=== PATIENT | female | born 1950 | race Caucasian/White ===

== ENCOUNTER 2022-10-29 13:18 | Outpatient (RCR) | payer MEDICARE, SELFPAY ==
[2022-10-29 12:33] LABS: Calcium 8.7 mg/dL (8.5-10.1); Estimated GFR (African America >60 (>=60); Estimated GFR (Non-African Ame 53 (>=60)
[2022-11-05 10:00] VITALS: BP 157/79; PULSE 77; RESP 18; TEMP 36.8; O2SAT 96
[2022-11-05] MEDS: DENOSUMAB 60 MG/ML SYRINGE SQ (10:09)
--- NOTE | 2022-11-05 10:17 | PC.NURSE ---
1000: Pt. to [facility] amb for schedued injection. Seated in recliner. VSS. Denies allergies. Medicated with Prolia 60mg SQ to right arm. No bleeding to site. Pt. tolerated with no c/o. Remains in recliner for brief observation. Pt. denies needs. 1020: Pt without s&s of adverse reaction. D/c'd amb to home.
== END 2022-11-10 16:01 | disposition home or self-care (01) ==
LOC: LAB 13:18
PROVIDERS: PCP Family Medicine; Visit Provider Family Medicine
DX: M81.0 Age-related osteoporosis without current pathological fracture (principal)
CPT/HCPCS: 36415; 82310; 82565; 96372; J0897

== ENCOUNTER 2023-01-28 10:40 | Outpatient (OUT) | payer MEDICARE, SELFPAY ==
[2023-01-28 11:27] LABS: Creatinine Urine Random 84.98 mg/dL (20.00-300.00); Protein Creatinine Ratio Urine 0.19; Total Protein Urine Random 16.4 mg/dL (<=11.9)
[2023-01-28 11:44] LABS: Hematocrit 39.7 % (36.0-48.0); Hemoglobin 12.9 g/dL (12.0-16.0); Mean Corpuscular HGB Conc 32.5 g/dL (29.9-35.2); Mean Corpuscular Hemoglobin 30.6 pg (26.7-34.0); Mean Corpuscular Volume 94.1 fL (81.0-99.0); Mean Platelet Volume 10.6 fL (9.5-13.5); Platelet Count 255 10^3/uL (150-450); Red Blood Count 4.22 10^6/uL (4.20-5.40); Red Cell Distribution Width 12.9 % (11.0-15.0); White Blood Count 6.8 10^3/uL (4.0-11.0)
[2023-01-28 12:09] LABS: Bilirubin Urine NEGATIVE (NEGATIVE); Blood Urine NEGATIVE (NEGATIVE); Clarity Urine CLEAR (CLEAR); Color Urine LT. YELLOW (YELLOW); Glucose Urine UA NEGATIVE (NEGATIVE); Ketones Urine NEGATIVE (NEGATIVE); Leukocyte Esterase Urine NEGATIVE (NEGATIVE); Nitrite Urine NEGATIVE (NEGATIVE); Protein Urine NEGATIVE (NEG/TRACE); Specific Gravity Urine 1.015 (1.005-1.025); Urobilinogen Urine 0.2 EU/dL (0.2-1.0); pH Urine 6.5 (5.0-9.0)
[2023-01-28 12:15] LABS: Bacteria Urine NONE SEEN #/HPF (NONE SEEN); Mucus Urine SMALL (NONE SEEN); RBC Urine NONE SEEN #/HPF (0-2); Squamous Epithelial Cell Urine FEW #/LPF (NONE/RARE); WBC Urine 0-2 #/HPF (NONE SEEN)
[2023-01-28 12:34] LABS: Percent Iron Saturation 27.9 %
[2023-01-28 12:57] LABS: Albumin Level 3.8 g/dL (3.4-5.0); Anion Gap 11.3; BUN Creatinine Ratio 19.5; Calcium 9.2 mg/dL (8.5-10.1); Carbon Dioxide 31.7 mmol/L (21.0-32.0); Chloride 99 mmol/L (98-107); Estimated GFR (African America >60 (>=60); Estimated GFR (Non-African Ame >60 (>=60); Glucose 88 mg/dL (74-106); Magnesium 1.8 mg/dL (1.8-2.4); Phosphorus 3.1 mg/dL (2.6-4.7); Sodium 138 mmol/L (136-145); Uric Acid 3.1 mg/dL (2.6-6.0)
[2023-01-29 17:09] LABS: PTH, Intact 45 pg/mL (15-65)
== END 2023-01-28 10:41 | disposition home or self-care (01) ==
LOC: LAB 10:40
PROVIDERS: PCP Family Medicine; Visit Provider Internal Medicine
DX: I12.9 Hypertensive chronic kidney disease with stage 1 through stage 4 chronic kidney disease, or unspecified chronic kidney disease (principal); N18.30 Chronic kidney disease, stage 3 unspecified; E87.1 Hypo-osmolality and hyponatremia; E55.9 Vitamin D deficiency, unspecified; I72.2 Aneurysm of renal artery; E87.6 Hypokalemia; E63.1 Imbalance of constituents of food intake; M81.0 Age-related osteoporosis without current pathological fracture
CPT/HCPCS: 36415; 80069; 81001; 82306; 82570; 82728; 83540; 83550; 83735; 83970; 84156; 84550; 85027

== ENCOUNTER 2023-06-06 10:25 | Outpatient (OUT) | payer MEDICARE, SELFPAY ==
[2023-06-06 10:57] LABS: Basophils Absolute Auto 0.1 10^3/uL (0.0-0.1); Basophils Percent Auto 1.3 % (0.2-2.0); Eosinophils Absolute Auto 0.3 10^3/uL (0.0-0.7); Hematocrit 38.1 % (36.0-48.0); Hemoglobin 12.1 g/dL (12.0-16.0); Immature Granulocytes Abs Auto 0.02 10^3/uL (0.00-0.03); Immature Granulocytes Pct Auto 0.3 % (0.0-0.5); Lymphocytes Absolute Auto 1.4 10^3/uL (1.2-3.8); Lymphocytes Percent Auto 20.8 % (20.5-60.0); Mean Corpuscular HGB Conc 31.8 g/dL (29.9-35.2); Mean Corpuscular Volume 94.3 fL (81.0-99.0); Mean Platelet Volume 9.1 fL (9.5-13.5); Monocytes Absolute Auto 0.6 10^3/uL (0.3-0.8); Monocytes Percent Auto 8.5 % (1.7-12.0); Neutrophils Absolute Auto 4.4 10^3/uL (1.4-6.5); Neutrophils Percent Auto 65.1 % (43.0-75.0); Platelet Count 332 10^3/uL (150-450); Red Blood Count 4.04 10^6/uL (4.20-5.40); Red Cell Distribution Width 12.8 % (11.0-15.0); White Blood Count 6.7 10^3/uL (4.0-11.0)
[2023-06-06 11:50] LABS: Estimated Average Glucose 120 mg/dL; Glycohemoglobin A1C 5.8 % (4.5-6.2)
[2023-06-06 12:23] LABS: Alanine Aminotransferase 20 U/L (14-59); Albumin Level 3.4 g/dL (3.4-5.0); Alkaline Phosphatase 61 U/L (46-116); Anion Gap 9.7; Aspartate Amino Transferase 13 U/L (15-37); BUN Creatinine Ratio 18.9; Bilirubin Total 0.6 mg/dL (0.2-1.0); Calcium 8.9 mg/dL (8.5-10.1); Carbon Dioxide 29.2 mmol/L (21.0-32.0); Chloride 103 mmol/L (98-107); Chol HDL Ratio 2.6; Cholesterol 245 mg/dL (<=200); Estimated GFR (African America >60 (>=60); Estimated GFR (Non-African Ame 58 (>=60); Free T3 2.65 pg/mL (2.18-3.98); Globulin 3.5 g/dL; Glucose 108 mg/dL (74-106); HDL Cholesterol 93 mg/dL (40-60); Potassium 3.9 mmol/L (3.5-5.1); Sodium 138 mmol/L (136-145); Thyroid Stimulating Hormone 0.769 uIU/mL (0.358-3.740); Total Protein 6.9 g/dL (6.4-8.2); Triglycerides 62 mg/dL (<=150); VLDL CHOLESTEROL 12.4 mg/dL
== END 2023-06-06 10:26 | disposition home or self-care (01) ==
LOC: LAB 10:27
PROVIDERS: PCP Family Medicine; Visit Provider Family Medicine
DX: E78.00 Pure hypercholesterolemia, unspecified (principal); I10 Essential (primary) hypertension; M54.12 Radiculopathy, cervical region; E78.5 Hyperlipidemia, unspecified; R73.09 Other abnormal glucose; D64.9 Anemia, unspecified; E55.9 Vitamin D deficiency, unspecified
CPT/HCPCS: 36415; 80053; 80061; 82306; 83036; 83540; 84436; 84443; 84481; 85025

== ENCOUNTER 2023-06-28 09:53 | Outpatient (RCR) | payer MEDICARE, SELFPAY | END 2023-08-03 12:52 | disposition home or self-care (01) | LOC: PT 09:53 | PROVIDERS: PCP Family Medicine | DX: M48.02 Spinal stenosis, cervical region (principal); G99.2 Myelopathy in diseases classified elsewhere; Z98.1 Arthrodesis status; R29.3 Abnormal posture | CPT/HCPCS: 97110; 97161 ==

== ENCOUNTER 2023-07-04 09:57 | Outpatient (OUT) | payer MEDICARE, SELFPAY ==
[2023-07-04 10:21] LABS: Bilirubin Urine NEGATIVE (NEGATIVE); Blood Urine NEGATIVE (NEGATIVE); Clarity Urine CLEAR (CLEAR); Color Urine YELLOW (YELLOW); Glucose Urine UA NEGATIVE (NEGATIVE); Ketones Urine NEGATIVE (NEGATIVE); Leukocyte Esterase Urine NEGATIVE (NEGATIVE); Nitrite Urine NEGATIVE (NEGATIVE); Protein Urine NEGATIVE (NEG/TRACE); Urobilinogen Urine 0.2 EU/dL (0.2-1.0); pH Urine 7.5 (5.0-9.0)
[2023-07-04 10:41] LABS: Hematocrit 37.2 % (36.0-48.0); Hemoglobin 11.8 g/dL (12.0-16.0); Mean Corpuscular HGB Conc 31.7 g/dL (29.9-35.2); Mean Corpuscular Hemoglobin 29.9 pg (26.7-34.0); Mean Corpuscular Volume 94.2 fL (81.0-99.0); Mean Platelet Volume 9.4 fL (9.5-13.5); Platelet Count 353 10^3/uL (150-450); Red Blood Count 3.95 10^6/uL (4.20-5.40); Red Cell Distribution Width 12.7 % (11.0-15.0); White Blood Count 6.8 10^3/uL (4.0-11.0)
[2023-07-04 10:54] LABS: Creatinine Urine Random 104.21 mg/dL (20.00-300.00); Protein Creatinine Ratio Urine 0.19; Total Protein Urine Random 19.4 mg/dL (<=11.9)
[2023-07-04 11:19] LABS: Bacteria Urine TRACE #/HPF (NONE SEEN); Crystals Seen? Seen #/HPF (None Seen); Mucus Urine NONE SEEN (NONE SEEN); RBC Urine 0-2 #/HPF (0-2); Squamous Epithelial Cell Urine FEW #/LPF (NONE/RARE)
[2023-07-04 11:20] LABS: Amorphous Sediment Urine FEW; Cast Seen? NONE SEEN #/LPF (NONE SEEN)
[2023-07-04 11:33] LABS: Albumin Level 3.5 g/dL (3.4-5.0); Anion Gap 11.6; BUN Creatinine Ratio 23.4; Calcium 9.4 mg/dL (8.5-10.1); Carbon Dioxide 31.3 mmol/L (21.0-32.0); Chloride 101 mmol/L (98-107); Estimated GFR (African America >60 (>=60); Estimated GFR (Non-African Ame 59 (>=60); Glucose 95 mg/dL (74-106); Phosphorus 3.7 mg/dL (2.6-4.7); Potassium 3.9 mmol/L (3.5-5.1); Sodium 140 mmol/L (136-145); Uric Acid 3.4 mg/dL (2.6-6.0)
[2023-07-05 11:09] LABS: PTH, Intact 25 pg/mL (15-65)
== END 2023-07-04 09:58 | disposition home or self-care (01) ==
LOC: LAB 09:57
PROVIDERS: PCP Family Medicine; Visit Provider Internal Medicine
DX: I12.9 Hypertensive chronic kidney disease with stage 1 through stage 4 chronic kidney disease, or unspecified chronic kidney disease (principal); N18.2 Chronic kidney disease, stage 2 (mild); E87.1 Hypo-osmolality and hyponatremia; E55.9 Vitamin D deficiency, unspecified; I72.2 Aneurysm of renal artery; E87.6 Hypokalemia; M81.0 Age-related osteoporosis without current pathological fracture
CPT/HCPCS: 36415; 80069; 81001; 82306; 82570; 83735; 83970; 84156; 84550; 85027

== ENCOUNTER 2023-08-03 10:44 | Outpatient (OUT) | payer MEDICARE, SELFPAY | END 2023-08-03 10:45 | disposition home or self-care (01) | LOC: PST 10:44 | PROVIDERS: PCP Family Medicine; Visit Provider Ophthalmology | DX: Z01.818 Encounter for other preprocedural examination (principal); H25.11 Age-related nuclear cataract, right eye ==

== ENCOUNTER 2023-08-11 06:22 | Day surgery (SDC) | payer MEDICARE, SELFPAY ==
--- NOTE | 2023-08-11 | OP_ITS ---
OPERATION DATE: 08/11/2023 SURGEON: Aries Zuleta M.D. PREOPERATIVE DIAGNOSIS: Nuclear sclerotic cataract right eye. POSTOPERATIVE DIAGNOSIS: Nuclear sclerotic cataract right eye. PROCEDURE NAME: Cataract extraction with intraocular lens placement for the right eye. ANESTHESIA: Topical. ESTIMATED BLOOD LOSS: Zero. COMPLICATIONS: None. PROCEDURE: In the preoperative holding area, topical proparacaine was placed on the surface of the right eye and the patient was sat up in an upright position. In this position, the 6 o?clock limbus was marked with a marking pen, so as to reference for future site of a Toric intraocular lens. The patient was then brought to the Operating Room in supine position. After proper identification, the right eye was prepped and draped in a sterile ophthalmic fashion. A paracentesis created at the 11 o'clock position. Approximately 1 cc of unpreserved Xylocaine was injected into the anterior chamber followed by Amvisc Plus. Using a 2.6 mm Keratome blade, a clear corneal incision was created at the 9 o'clock limbus. A cystotome was then used to begin a curvilinear capsulorrhexis that was continued for 360 degrees with the Utrata forceps. BSS on a 26 gauge cannula was injected beneath the anterior capsule to hydrodissect as well as hydrodelineate the lens. After ensuring mobility, phacoemulsification was performed in a [id number]-type fashion. After all nuclear material had been removed from the eye, IA was introduced and all residual cortical material was cleaned up. Additional Amvisc Plus was injected into the posterior bag to further inflate and pressurize the anterior chamber. Using a Wiley Toric Marking System, the 179 degree axis was identified and marked. A lens model [id number], 20.5 diopters was then injected and dialed approximately 10 degrees shy of the 179 degree philippe on the anterior surface of the cornea. IA was reintroduced into the anterior chamber and all residual Amvisc Plus was removed from the eye. Utilizing the tip of the IA, the lens was rotated the final 10 degrees to the 179 degree axis. BSS on a 30 gauge cannula was injected into the stroma of both the clear corneal incision as well as the paracentesis to hydrate the wounds. Additional BSS was injected into the anterior chamber to pressurize the eye at approximately 20 to 22 mmHg by finger tension. 0.1 cc of antibiotic was injected into the anterior chamber. Weck-Dayanna sponges were used to check the wounds to be watertight. One drop of apraclonidine and one drop of prednisolone acetate were placed into the eye and a shield was placed over top. The patient was sent to the postoperative area in satisfactory condition to follow up the following day for postoperative care. PAMELA
--- NOTE | 2023-08-11 06:22 | HP_ITS ---
PREOPERATIVE HISTORY AND PHYSICAL ? Date:? 08/10/2023 ? HISTORY:? The patient is a 72-year-old white female with complaints of declining vision out of her right eye.? She states the onset of this has been noted back approximately two years ago and gradually worsening over that time frame.? It has been constant in nature, effecting both distance, mid range and near vision.? ?Night driving has become more troublesome because of headlights creating glare and halos.? She states having difficulty seeing road signs at a distance as well. ? PAST OCULAR HISTORY:? Denies. ? PAST MEDICAL HISTORY:? Of dementia, hydrocephalus, hypercholesterolemia, hypertension and spinal meningitis in 1956, neck surgery and a WET PROCESS MILLER HEAD shunt in 2008. ? SOCIAL HISTORY:? Denies tobacco or recreational drug abuse.? Denies alcohol. ? SYSTEMIC MEDICATIONS:? Currently taking outpatient meds of hydrochlorothiazide, lansoprazole, donepezil, amlodipine, cyclobenzaprine, gabapentin, atorvastatin, labetalol and losartan. ? ALLERGIES TO MEDICATIONS:? Denies. ? REVIEW OF SYSTEMS:? No pertinent positives. ? PHYSICAL EXAM: ? GENERAL:? She is awake, alert and oriented x3, well developed, well nourished, in no acute distress.? ? HEART:? Regular rate and rhythm. ? LUNGS:? Clear bilaterally. ? ABDOMEN:? Soft, non-tender, non-distended. ? EXTREMITIES:? No pitting edema. ? OPHTHALMIC EXAM:? Reveals a visual acuity of 20/50 +2 in the right and 20/50 in the left with glare to 20/400 bilaterally.? Pupils motility, muscle balance and confrontational visual myrick within normal limits bilaterally.? Pressures are measured at 21 in the right and 20 in the left.? Slit lamp exam revealed blepharitis with a severe decrease in tear film bilaterally.? Conjunctiva, cornea, anterior chamber and iris were within normal limits bilaterally.? Lens status demonstrated 3+ nuclear sclerosis with vacuoles bilaterally. ? FUNDUS EXAM:? Optic discs, macula, vessels, periphery and vitreous were within normal limits bilaterally.? ? ASSESSMENT AND PLAN:? Visually significant cataract, right eye.? After the risks, benefits, and alternatives as well as expectations were delivered to the patient, she elected to go forward with cataract removal.? She understands those risks to include but not limited to infection, bleeding, loss of vision or loss of the eye itself.? Secondly, she understands that postoperatively she is likely to require spectacle correction for her best visual acuity.? Finally, a complete ophthalmic exam was performed and there was not determined to be any other source of vision decline other than that of cataract.? After understanding all risks as well as expectations, she elected to go forward with the procedure as listed above and will be doing so in the near future. PAMELA
--- OUTSIDE RECORDS SUMMARY | 2023-08-11 06:25 | XMS_ITS | CCD ---
Author Organization [facility] Care Team Providers Care School Principal Name Role Phone PHYSICIAN, DEFAULT Unavailable Unavailable PHYSICIAN, DEFAULT Unavailable Unavailable YODERCONNER HERNANDEZEB A Unavailable Unavailable CATY YODER A Unavailable Unavailable SAMUEL SANCHEZ Unavailable Unavailable IMER PURCELL Unavailable Unavailable Monika Guerrero Primary Care Provider Darlene Barbosaul Unavailable Jorge Ramirez Unavailable Imer Purcell MD Primary Care Provider [phone] Keagan Chadwick Unavailable MD Imer Purcell Primary Care Provider [phone] MD Imer Purcell Attending Provider [phone] Ziyad Ngo Unavailable MD Imer Purcell Primary Care Provider [phone] MD Imer Purcell Attending Provider Adan Gonzalez Attending Provider [phone] MD Jorge Ramirez Attending Provider Imer Purcell MD Primary Care Provider [phone] MONIKA GUERRERO Primary Care Unavaila ble MENDEZ, TOMS Referring Unavailable MONIKA GUERRERO Primary Care Unavaila ble MENDEZ, TOMS Referring Unavailable MONIKA GUERRERO Primary Care Unavaila ble MENDEZ, TOMS Attending Unavailable MENDEZ, TOMS Referring Unavailable FREDA POP Attending Unavailable DEBRA, TOMS Referring Unavailable IMER PURCELL Primary Care Unavailable FREDA POP Attending Unavailable MENDEZ, TOMS Referring Unavailable HOY, IMER M Primary Care Unavailable MENDEZ, TOMS Referring Unavailable HOY, IMER M Primary Care Unavailable FREDA POP Attending Unavailable MENDEZ, TOMS Referring Unavailable HOY, IMER M Primary Care Unavailable MENDEZ, TOMS Attending Unavailable DOROTHY SPARROW Referring Unavailable HOY, IMER M Primary Care Unavailable HOY, IMER M Primary Care Unavailable FREDA POP Referring Unavailable MD Imer Purcell Primary Care Provider [phone] ARI Pop Attending Provider MD Imer Purecll Primary Care Provider [phone] ARI Pop Attending Provider ANTHONY Friedman Attending Provider [phone] MD Imer Purcell Attending Provider HOY ., DR WILLAMS Consulting Unavailable HOY ., DR WILLAMS Primary Care Unavailable HOY ., DR WILLAMS Attending Unavailable HOY ., DR WILLAMS Admitting Unavailable HOY ., DR WILLAMS Consulting Unavailable HOY ., DR WILLAMS Primary Care Unavailable HOY ., DR WILLAMS Attending Unavailable HOY ., DR WILLAMS Admitting Unavailable ZIEBER, DR ANA ROSA Hdz Consulting Unavailable PACO, GINO Consulting Unavailable HOY ., DR WILLAMS Primary Care Unavailable PACO, GINO Attending Unavailable PACO, GINO Admitting Unavailable HOY ., DR WILLAMS Consulting Unavailable HOY ., DR WILLAMS Primary Care Unavailable HOY ., DR WILLAMS Attending Unavailable HOY ., DR WILLAMS Admitting Unavailable HOY ., DR WILLAMS Consulting Unavailable HOY ., DR WILLAMS Primary Care Unavailable HOY ., DR WILLAMS Attending Unavailable HOY ., DR WILLAMS Admitting Unavailable HOY ., DR WILLAMS Consulting Unavailable HOY ., DR WILLAMS Primary Care Unavailable HOY ., DR WILLAMS Attending Unavailable HOY ., DR WILLAMS Admitting Unavailable ZIEBER, DR ANA ROSA Hdz Consulting Unavailable HOY ., DR WILLAMS Consulting Unavailable HOY ., DR WILLAMS Primary Care Unavailable HOY ., DR WILLAMS Attending Unavailable HOY ., DR WILLAMS Admitting Unavailable PACO, GINO Consulting Unavailable HOY ., DR WILLAMS Primary Care Unavailable PACO, GINO Attending Unavailable PACO, GINO Admitting Unavailable TAJY ., DR WILLAMS Consulting Unavailable HOY ., DR WILLAMS Primary Care Unavailable HOY ., DR WILLAMS Attending Unavailable HOY ., DR WILLAMS Admitting Unavailable ALBERTINA, MARIKA Consulting Unavailable HOY ., DR WILLAMS Primary Care Unavailable ALBERTINA, MARIKA Attending Unavailable ALBERTINA, MARIKA Admitting Unavailable HOY ., DR WILLAMS Primary Care Unavailable HOY ., DR WILLAMS Attending Unavailable HOY ., DR WILLAMS Admitting Unavailable HOY ., DR WILLAMS Primary Care Unavailable HOY ., DR WILLAMS Attending Unavailable HOY ., DR WILLAMS Admitting Unavailable Hoy, Imer M Unavailable Unavailable Unavailable Hoy, Imer M Primary Care Unavailable Albertina, Marika Admitting Unavailable Albertina, Marika Attending Unavailable Hoy, Imer M Attending Unavailable Hoy, Imer M Admitting Unavailable Hoy, Imer M Primary Care Unavailable HoyDavidImer M Attending Unavailable Hoy, Imer M Admitting Unavailable Hoy, Imer M Primary Care Unavailable Jorge Ramirez Admitting Unavailable Jorge Ramirez Attending Unavailable Hoy, Imer M Primary Care Unavailable Mireille Zurita Attending Unavailable Hoy, Imer M Primary Care Unavailable Mireille Zurita Admitting Unavailable Hoy, Imer M Primary Care Unavailable Hoy, Imer M Attending Unavailable Hoy, Imer M Admitting Unavailable Adan Gonzalez Admitting Unavailable Adan Gonzalez Attending Unavailable Hoy, Imer M Primary Care Unavailable Freda Pop Admitting Unavailable Freda Pop Attending Unavailable Hoy, Imer M Primary Care Unavailable Imer Purcell MD Primary Care Provider MIREILLE ZURITA Attending Unavailable Adan Gonzalez Referring Unavailable Dr. Imer Purcell Primary Care Unavail able Dr. Imer Purcell Primary Care Unavail able MIREILLE ZURITA Referring Unavailable MIREILLE ZURITA Attending Unavailable CECELIA HARKINS Attending Unavailable LONA PANDA Referring Unavailable MIREILLE ZURITA Referring Unavailable IMER PURCELL Primary Care Unavailable ARASELI FAUSTIN Referring Unavailable IMER PURCELL Primary Care Unavailable ARASELI FAUSTIN Attending Unavailable IMER PURCELL DON Primary Care Unavailable MIREILLE ZURITA Attending Unavailable IMER PURCELL DON Primary Care Unavailable MIREILLE ZURITA Attending Unavailable IMER PURCELL Primary Care Unavailable IMER PURCELL Primary Care Unavailable MIREILLE ZURITA Admitting Unavailable MIREILLE ZURITA Attending Unavailable IMER Velásquez Primary Care Unavailable FERNANDO FRAZIER Consulting Unavaila COLLIN Neil Consulting Unavailable ROBERT MACK Unavailable MIREILLE ZURITA Referring Unavailable IMER PURCELL Primary Care Unavailable MIREILLE ZURITA Referring Unavailable Dora IMER OCHOA Primary Care Unavailable Allergies Allergy Classification Reported Allergen(s) Allergy Type Date of Onset Reaction(s) Facility (2 sources) No Known Allergies; Translations: [No Known Allergies] Propensity to adverse reactions (disorder) 7 [facility] Medications Current Medications Medication Drug Class(es) Dates Sig (Normalized) Sig (Original) acetaminophen 325 mg oral tablet (7 sources) Start: 03-23-2023 End: 06-16-2023 take 3 tablets by mouth every eight hours for pain acetaminophen (Tylenol) 325 mg tablet Indications: Acute post-operative pain , S/P cervical spinal fusion Take 3 tablets (975 mg) by mouth every 8 hours if needed for mild pain (1 - 3). 0 03/23/2023 06/16/2023 Discontinued (Med List Cleanup) Start: 03-21-2023 take 1 tablet by meghana th every eight hours 975 mg, oral, Every 8 hours, First dose on Tue03/21/23 at 1630, Phase II/On Unit If ordered PRN for pain, nurse is permitted to administer this medication for higher pain scores based on patient preference? Yes amLODIPine 10 mg oral tablet (20 sources) Dihydropyridine Calcium Channel Sonia Start: 08-05-2021 take 10 mg by mouth once daily 10 mg, oral, Daily, First dose on Tue03/21/23 at 1630, Phase II/On Unit amLODIPine Besyl ate 5 MG Oral Tablet Quantity: 0 Refills: 0 Ordered: 07-Dec-2022 DO Active Comment on above: Take 10 mg by mouth once daily. aspirin 81 mg chewable tablet (20 sources) Platelet Aggregation Inhibitor, Nonsteroidal Anti-inflammatory Drug Start: 08-05-2021 aspirin 81 mg chewable tablet Aspirin (Aspirin Child) 81 mg Tablet,Chewable Active 81 MG PO Daily August 05, 2021 12:00am 0 08/05/2021 Active Start: 08-29-2006 take 1 tablet by meghana th once daily Aspirin 81 mg ORAL Tab Take one(1) tablet daily. 0 0 08/29/2006 Active take 1 tablet by meghana th every twenty-four hours take 1 tablet by meghana th once daily Aspirin 81 81 MG 1 tablet Orally Once a day Active Comment on above: Take one(1) tablet d aily. atorvastatin 20 mg oral tablet (12 sources) HMG-CoA Reductase Inhibitor Start: 02-10-2023 atorvastatin (Lipitor) 20 mg tablet Take by mouth. 0 02/10/2023 Active take 1 tablet by meghana th every twenty-four hours Atorvastatin Calcium 20 MG 1 tablet Oral ly Once a day Active calcium chloride 0.0014 meq/ml / potassium chloride 0.004 meq/ml / sodium chloride 0.103 meq/ml / sodium lactate 0.028 meq/ml injectable solution (3 sources) Start: 03-21-2023 take 100 mL intravenously every hour 100 mL/hr, intravenous, Continuous, Starting on Tue03/21/23 at 1630, Phase II/On Unit Convert IV to saline lock when taking oral fluids. Start: 03-21-2023 End: 03-21-2023 lactated Ringer's infusion cholecalciferol 0.025 mg oral capsule (20 sources) Vitamin D Start: 08-05-2021 take 1 capsule by mouth once daily Cholecalciferol (Vitamin D3) (Vitamin D3) 25 mcg (1,000 unit) Capsule Active 25 MCG PO Daily August 05, 2021 12:00am Vitamin D3 25 MC G (1000 UT) Oral Tablet Quantity: 0 Refills: 0 Ordered: 07-Dec-2022 DO Active Cholecalciferol, Vitamin D3, (VITAMIN D) 25 mcg (1,000 unit) cap Take 1,000 Units by mouth once daily. 0 Active Comment on above: Take 1,000 Units by mouth once daily. colesevelam hydrochloride 625 mg oral tablet (20 sources) Bile Acid Sequestrant Start: take 1875 mg by mouth twice daily Colesevelam Active 1875 MG PO Twice daily August 05, 2021 12:00am take 3 tablets by mo ut every twenty-four hours Colesevelam HCl 625 MG 3 tablets with meals Orally Once a day Not-Taking Colesevelam HCl - 625 MG Oral Tablet Quantity: 0 Refills: 0 Ordered: 07-Dec-2022 DO Active Comment on above: Take 1,875 mg by meghana th daily at bedtime. CoQ10 200 MG (3 sources) CoQ10 200 MG as directed Orally ONCE A DAY Active cyclobenzaprine hydrochloride 10 mg oral tablet (7 sources) Muscle Relaxant Start: 2022 End: 2023 take 1 tablet by mouth three times daily as needed for pain cyclobenzaprine (Flexeril) 10 mg tablet Indications: muscle spasm Take 1 tablet (10 mg) by mouth 3 times a day as needed for muscle spasms (post op pain). 30 tablet 1 03/23/2023 06/16/2023 Discontinued (Therapy completed) 1 ml denosumab 60 mg/ml prefilled syringe (20 sources) RANK Ligand Inhibitor Start: 2021 denosumab (Prolia) 60 mg/mL syringe EVERY 6 MONTHS 0 08/05/2021 Active 24 hr desvenlafaxine 50 mg extended release oral tablet (9 sources) Serotonin and Norepinephrine Reuptake Inhibitor End: 2022 take 1 tablet by mouth once daily, then take 1 tablet by mouth every twenty-four hours desvenlafaxine ER (KHEDEZLA) 50 mg 24 hr tablet Take 50 mg by mouth once daily. 0 05/27/2022 Discontinued (Discontinued by another Health Care Provider) Comment on above: Take 50 mg by mouth once daily. dexlansoprazole 30 mg delayed release oral capsule (3 sources) Proton Pump Inhibitor Start: 2021 take 1 capsule by mouth every twelve hours Dexlansoprazole 30 MG 1 capsule Orally bid for 30 day(s) Aug, Active docusate sodium 100 mg oral capsule (3 sources) Start: 2022 take 1 capsule by mouth twice daily as needed for constipation docusate sodium (Colace) 100 mg capsule Indications: Drug-induced constipation Take 1 capsule (100 mg) by mouth 2 times a day as needed for constipation. 0 03/23/2023 Active Start: 03-21-2023 take 100 mg by mouth twice daily 100 mg, oral, 2 times daily, First dose on Tue03/21/23 at 2100, Phase II/On Unit Bowel Regimen - for prevention of constipation Hold for loose stools donepezil hydrochloride 5 mg oral tablet (15 sources) Start: 12-20-2022 take 1 tablet by mouth once daily donepezil (Aricept) 5 mg tablet Take 1 tablet (5 mg) by mouth once daily. 0 12/20/2022 Active ferrous sulfate 325 mg oral tablet (20 sources) Start: 03-22-2023 65 mg of iron, oral, Daily with breakfast, First dose on Tue03/22/23 at 0800, Phase II/On Unit Start: 04-08-2022 take 1 tablet by meghana th twice daily Ferrous Sulfate (Iron (Ferrous Sulfate)) 325 mg (65 mg iron) Tablet Active 325 MG PO Twice daily April 08, 2022 1:00am Start: 08-05-2021 End: 04-08-2022 take 1 tablet by mouth once daily Ferrous Sulfate (Iron) 325 mg (65 mg iron) Tablet Discontinued 325 MG PO Daily August 05, 2021 12:00am April 08, 2022 9:42am Comment on above: Take 325 mg by mouth daily with breakfast. gabapentin 300 mg oral capsule (20 sources) Anti-epileptic Agent Start: 08-05-2021 take 300 mg by mouth once daily Gabapentin Active 300 MG PO Daily August 05, 2021 12:00am Gabapentin 300 M G TABS Quantity: 0 Refills: 0 Ordered: 07-Dec-2022 DO Active Comment on above: Take 300 mg by mouth as needed. hydroCHLOROthiazide 25 mg oral tablet (20 sources) Thiazide Diuretic Start: 007 take 1 tablet by mouth once daily hydroCHLOROthiazide (HYDRODiuril) 25 mg tablet Take 1 tablet (25 mg) by mouth once daily. 0 06/28/2006 Active take 1 tablet by mouth once aminata y hydroCHLOROthiazide 25 1 tablet Orally daily Active Comment on above: Take one(1) tablet d aily. Iron (2 sources) iron 18 mg table t Take by mouth once every 24 hours. 0 Active take 1 tablet by mouth once aminata y Iron 325 (65 Fe) MG 1 tablet Orally Once a day Active ketorolac tromethamine 5 mg/ml ophthalmic solution (1 source) Nonsteroidal Anti-inflammatory Drug, Cyclooxygenase Inhibitor Start: 05-24-2023 ketorolac (Acular) 0.5 % ophthalmic solution PLACE 1 DROP INTO AFFECTED EYE(S) ONCE IN THE MORNING AND ONCE BEFORE BEDTIME 0 05/24/2023 Active labetalol hydrochloride 200 mg oral tablet (20 sources) beta-Adrenergic Sonia Start: 04-25-2023 End: 06-16-2023 take 1 tablet by mouth twice daily labetalol (Normodyne) 200 mg tablet Take 1 tablet (200 mg) by mouth 2 times a day. 0 04/25/2023 06/16/2023 Discontinued (Med List Cleanup) Start: 03-21-2023 take 1 tablet by meghana th twice daily labetalol (Normodyne) 100 mg tablet Indications: Essential hypertension Take 1 tablet (100 mg) by mouth 2 times a day. 0 03/23/2023 Active Start: 08-05-2021 End: 03-23-2023 take 200 mg by mouth twice daily Labetalol Active 200 MG PO Twice daily August 05, 2021 12:00am take 1 tablet by meghana th once daily labetalol (TRANDATE) 200 mg tablet Take 200 mg by mouth once daily. 0 Active Comment on above: Take 200 mg by mouth once daily. Liver Support - (14 sources) Liver Support - as directed Sublingual ONCE A DAY Active losartan potassium 50 mg oral tablet (20 sources) Angiotensin 2 Receptor Sonia Start: 08-05-2021 take 50 mg by mouth once daily 50 mg, oral, Daily, First dose on Tue03/21/23 at 1630, Phase II/On Unit Comment on above: Take 50 mg by mouth once daily. 1 ml morphine sulfate 2 mg/ml prefilled syringe (1 source) Opioid Agonist Start: 03-21-2023 take 2 mg by mouth every two hours as needed for pain 2 mg, intravenous, Every 2 hour PRN, pain breakthrough, use oral first and only use IV if oral is ineffective or cannot take oral. Use as first line if no PO med ordered., Starting on Tue03/21/23 at 1619, Phase II/On Unit 2 ml naloxone hydrochloride 1 mg/ml prefilled syringe (1 source) Opioid Antagonist Start: 03-21-2023 0.2 mg, intravenous, Every 5 min PRN, respiratory depression, Starting on Tue03/21/23 at 1619, Phase II/On Unit If respiratory rate is less than 8 breaths/minute or patient is difficult to arouse stop any narcotics and contact physician. Administer slow IV push. Repeat as ordered until patient's respiratory rate is greater than 12 breaths/minute. ofloxacin 3 mg/ml ophthalmic solution (1 source) Quinolone Antimicrobial Start: 05-24-2023 ofloxacin (Ocuflox) 0.3 % ophthalmic solution PLEASE SEE ATTACHED FOR DETAILED DIRECTIONS 0 05/24/2023 Active Ondansetron (1 source) Serotonin-3 Receptor Antagonist Start: 03-21-2023 take 1 tablet by mouth every eight hours as needed ondansetron (Zofran) tablet 4 mg oxyCODONE hydrochloride 5 mg oral tablet (6 sources) Opioid Agonist Start: 03-23-2023 take 1 tablet by mouth every four hours for pain oxyCODONE (Roxicodone) 5 mg immediate release tablet Indications: Acute post-operative pain , S/P cervical spinal fusion Take 1 tablet (5 mg) by mouth every 4 hours if needed for moderate pain (4 - 6) or severe pain (7 - 10) (post op pain). 28 tablet 0 03/23/2023 Active Start: 03-21-2023 take 1 tablet by meghana th every four hours as needed 5 mg, oral, Every 4 hours PRN, pain moderate (4-6), first line, Starting on Tue03/21/23 at 1619, Phase II/On Unit If ordered PRN for pain, nurse is permitted to administer this medication for higher pain scores based on patient preference? Yes Start: 03-21-2023 take 1 tablet by meghana th every four hours as needed 10 mg, oral, Every 4 hours PRN, pain severe (7-10), first line, Starting on Tue03/21/23 at 1619, Phase II/On Unit If ordered PRN for pain, nurse is permitted to administer this medication for higher pain scores based on patient preference? Yes Start: 11-17-2021 End: 12-03-2021 take 1 tablet by mouth every six hours as needed for pain oxyCODONE IR (ROXICODONE) 5 mg immediate release tablet Indications: Post-operative pain Take 1 tablet by mouth every 6 hours as needed for pain. 5 tablet 0 11/17/2021 12/03/2021 Discontinued (Course of therapy completed) Comment on above: Take 1 tablet by meghnaa th every 6 hours as needed for pain. oxygen (O2) therapy (1 source) Start: 3 oxygen (O2) therapy pantoprazole (1 source) Proton Pump Inhibitor Start: 3 pantoprazole (ProtoNix) EC tablet 40 mg potassium chloride 10 meq extended release oral tablet (20 sources) Start: 2 10 mEq, oral, Daily, First dose on Tue03/21/23 at 1630, Phase II/On Unit Best given with food and a glass of water to minimize gastric irritation. Do not crush, chew, or split. Comment on above: Take 10 mEq by mouth once daily. sucralfate 1000 mg oral tablet (13 sources) Aluminum Complex Start: 2 take 1 tablet by mouth every twelve hours Sucralfate 1 GM 1 tablet on an empty stomach Orally Twice a day for 90 day(s) Jan, Active Start: 08-27-2021 take 1 tablet by meghana th every twelve hours Sucralfate 1 GM 1 tablet on an empty stomach Orally Twice a day for 30 day(s) Aug, Active take 1 tablet by meghana th twice daily sucralfate (CARAFATE) 1 gram tablet Take 1 g by mouth twice daily. 0 Active Comment on above: Take 1 g by mouth tw ice daily. venlafaxine 25 mg oral tablet (20 sources) Serotonin and Norepinephrine Reuptake Inhibitor Start: 3 take 75 mg by mouth three times daily at mealtime 75 mg, oral, 3 times daily with meals, First dose on Tue03/21/23 at 1700, Phase II/On Unit Start: 08-05-2021 take 75 mg by mouth once daily Venlafaxine Active 75 MG PO Daily August 05, 2021 12:00am take 1 tablet by meghana th every twelve hours Venlafaxine HCl 75 MG 1 tablet with food Orally Twice a day Active Vitamin D 25 MCG (1000 UT) (13 sources) Vitamin D 25 MCG (1000 UT) as directed Orally Once a day Active Completed/Discontinued Medications Medication Drug Class(es) Dates Sig (Normalized) Sig (Original) aliskiren 150 mg oral tablet (3 sources) Renin Inhibitor Start: 10-01-2009 aliskiren hemifumarate(TEKTUR NA 150 MG TAB) Take one(1) tablet daily. 0 10/01/2009 Active Comment on above: Take one(1) tablet d aily. budesonide 0.032 mg/actuat metered dose nasal spray (3 sources) Corticosteroid Start: 06-28-2006 RHINOCORT AQUA 32 MCG/ACTUATION NASAL SPRAY PRN 0 06/28/2006 Active Comment on above: PRN ceFAZolin 2000 mg injection (1 source) Cephalosporin Antibacterial Start: 03-21-2023 End: 03-22-2023 take 2 g intravenously every eight hours 2 g, intravenous, Administer over 30 Minutes, Every 8 hours, First dose on 03/21/23 at 1630, For 2 doses, Phase II/On Unit Start 8 hours after pre-op dose given. premix bag Dosing of this medication varies based on severity of illness. Does this patient have sepsis or concern for sepsis (probable or documented infection plus systemic manifestations of infection)? No Suspected Indication (Select all that apply): Surgical Prophylaxis cetirizine hydrochloride 10 mg chewable tablet (9 sources) Histamine-1 Receptor Antagonist Start: 06-28-2006 ZYRTEC 10 MG CHEWABLE TAB Take one(1) tablet daily. 0 0 06/28/2006 Active Comment on above: Take one(1) tablet d aily. citalopram 20 mg oral tablet (9 sources) Serotonin Reuptake Inhibitor Start: 10-16-2007 End: 12-03-2021 CITALOPRAM 20 MG TAB Indications: Communicating hydrocephalus (HCC) Take one(1) tablet daily. 0 0 10/16/2007 12/03/2021 Discontinued (Discontinued by another Health Care Provider) Comment on above: Take one(1) tablet d aily. CoQ-10 CAPS (2 sources) CoQ-10 CAPS Quantity: 0 Refills: 0 Ordered: 07-Dec-2022 DO Active 0.5 ml HYDROmorphone hydrochloride 1 mg/ml prefilled syringe (1 source) Opioid Agonist Start: 03-21-2023 End: 03-21-2023 HYDROmorphone (Dilaudid) injection 0.5 mg ibuprofen 800 mg oral tablet (6 sources) Nonsteroidal Anti-inflammatory Drug End: 12-03-2021 ibuprofen (MOTRIN) 800 mg tablet Take 800 mg by mouth. 0 12/03/2021 Discontinued (Course of therapy completed) Comment on above: Take 800 mg by mouth . iv contrast (will be provided with radiology test) (8 sources) Start: 10-01-2021 iv contrast (will be provided with radiology test) Indications: Paraesophageal hernia CT ABD/PEL -Inject, intravenously, once for 1 dose.No IV access, insert saline lock prior to the beginning of sedation, infusion, injection of imaging exam. Discontinue saline lock post exam. If Pt. has a central line or IVAD, may access for administration according to line specific nursing protocol. Once exam is complete flush line and de-access according to line specific nursing protocol in the CT contrast administration guidelines link. 1 Each 0 10/01/2021 Active Comment on above: CT ABD/PEL -Inject, intravenously, once for 1 dose.No IV access, insert saline lock prior to the beginning of sedation, infusion, injection of imaging exam. Discontinue saline lock post exam. If Pt. has a central line or IVAD, may access for administration according to line specific nursing protocol. Once exam is complete flush line and de-access according to line specific nursing protocol in the CT contrast administration guidelines link. lansoprazole 30 mg delayed release oral capsule (20 sources) Proton Pump Inhibitor Start: 12-03-2021 End: 12-03-2021 take 1 capsule by mouth once daily lansoprazole (PREVACID) 30 mg capsule Indications: Paraesophageal hernia Take 1 capsule by mouth once daily. 90 capsule 2 12/03/2021 Active Start: 08-06-2021 take 30 mg by mouth twice daily Lansoprazole Active 30 MG PO Twice daily 140 70 August 06, 2021 12:00am Comment on above: Take 30 mg by mouth once daily. Take 1 capsule by [facility] once daily. metoprolol tartrate 25 mg oral tablet (3 sources) beta-Adrenergic Sonia Start: 06-28-2006 METOPROLOL 25 MG TAB Take one(1) tablet two(2) times daily. 0 0 06/28/2006 Active Comment on above: Take one(1) tablet t wo(2) times daily. omeprazole 40 mg delayed release oral capsule (13 sources) Proton Pump Inhibitor Start: 08-05-2021 End: 08-06-2021 take 40 mg by mouth twice daily Omeprazole Discontinued 40 MG PO Twice daily August 05, 2021 12:00am August 06, 2021 11:25am End: 03-21-2023 take 1 capsule by mouth once daily omeprazole (PriLOSEC) [address] capsule Take 1 capsule (40 mg) by mouth once daily. 0 03/21/2023 Discontinued (Therapy completed) simvastatin 20 mg oral tablet (7 sources) HMG-CoA Reductase Inhibitor Start: 06-28-2006 ZOCOR 20 MG TAB Take one(1) tablet daily at bedtime. 0 06/28/2006 Active Comment on above: Take one(1) tablet d aily at bedtime. ubidecarenone 100 mg oral capsule (17 sources) Start: 08-05-2021 End: 04-08-2022 Coenzyme Q10 (Coq-10) 100 mg Capsule Discontinued 200 MG PO Daily August 05, 2021 12:00am April 08, 2022 9:51am take 200 mg by mouth once daily Problems Active Problems Problem Classification Problem Date Documented Date Episodic/Chronic Acute bronchitis (1 source) Acute bronchitis, unspecified; Translations: [ACUTE BRONCHITIS UNSPECIFIED] Onset: 08-01-19 Episodic Administrative/social admission (1 source) Patient encounter status; Translations: [Counseling, unspecified] Episodic Anxiety disorders (16 sources) Anxiety; Translations: [Anxiety disorder, unspecified] Onset: 11-04-19 22 11-03-2021 Chronic Aortic; peripheral; 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; 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-02-19 Resolved : 12-01-19 Chronic Chronic kidney disease (20 sources) Chronic kidney disease, stage 3 (moderate); Translations: [Chronic kidney disease stage 3] Onset: 01-13-20 17 11-03-2021 Chronic Coagulation and hemorrhagic disorders (3 sources) Blood coagulation disorder; Translations: [Coagulation defect, unspecified] Onset: 03-21-20 23 03-21-2023 Chronic Deficiency and other anemia (14 sources) Anemia of renal disease; Translations: [Anemia in chronic kidney disease] Chronic Deficiency and other anemia (4 sources) Anemia in chronic kidney disease; Translations: [ANEMIA IN CHRONIC KIDNEY DISEASE] Onset: 06-02-19 Resolved : 12-01-19 Chronic Deficiency and other anemia (7 sources) Iron deficiency anemia; Translations: [Iron deficiency anemia, unspecified] Episodic Deficiency and other anemia (5 sources) Anemia, unspecified; Translations: [ANEMIA UNSPECIFIED] Onset: 01-28-20 Episodic Disorders of lipid metabolism (20 sources) Hyperlipidemia, unspecified; Translations: [Hyperlipidemia] Onset: 01-13-20 Chronic Esophageal disorders (13 sources) Gastroesophageal reflux disease; Translations: [Gastro-esophageal reflux disease without esophagitis] Chronic Essential hypertension (20 sources) Hypertensive disorder; Translations: [Essential (primary) hypertension] Onset: 11-04-19 22 11-03-2021 Chronic Fluid and electrolyte disorders (10 sources) Hypo-osmolality and hyponatremia; Translations: [Hypokalemia] Onset: 06-02-19 Resolved : 12-01-19 Episodic Genitourinary symptoms and ill-defined conditions (2 sources) Urinary incontinence; Translations: [Unspecified urinary incontinence] Chronic Hypertension with complications and secondary hypertension (20 sources) Hypertensive chronic kidney disease with stage 1 through stage 4 chronic kidney disease, or unspecified chronic kidney disease; Translations: [Hypertensive renal disease] Onset: 01-13-20 Resolved : 12-01-19 Chronic Nervous system congenital anomalies (18 sources) Congenital hydrocephalus; Translations: [Congenital hydrocephalus, unspecified] Onset: 02-09-20 05 02-08-2005 Chronic Nutritional deficiencies (20 sources) Vitamin D deficiency; Translations: [Vitamin D deficiency, unspecified] Onset: 06-02-19 Resolved : 12-01-19 Chronic Nutritional deficiencies (1 source) Iron deficiency Episodic Osteoarthritis (4 sources) Unilateral primary osteoarthritis, right knee; Translations: [UNI PRIM OSTEOARTHRITIS RT KNEE] Onset: 06-24-19 Chronic Osteoporosis (20 sources) Osteoporosis; Translations: [Age-related osteoporosis without current pathological fracture] Onset: 06-02-19 Resolved : 12-01-19 Chronic Other acquired deformities (14 sources) Kyphoscoliosis deformity of spine; Translations: [Scoliosis, unspecified] Chronic Other acquired deformities (1 source) Scoliosis, unspecified; Translations: [SCOLIOSIS UNSPECIFIED] Onset: 01-26-20 Chronic Other aftercare (2 sources) 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; Translations: [Long-term (current) use of other medications] Onset: 05-07-20 Episodic Other connective tissue disease (3 sources) History of cervical spine fusion; Translations: [Arthrodesis status] Onset: 06-16-1903-23-2023 Episodic Other gastrointestinal disorders (1 source) Drug-induced constipation; Translations: [Drug induced constipation] 03-23-2023 Episodic Other hereditary and degenerative nervous system conditions (4 sources) 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; Translations: [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)] Onset: 03-12-20 Chronic Other nervous system disorders (18 sources) Communicating hydrocephalus; 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] Onset: 05-17-1905-17-2005 Chronic Other nervous system disorders (14 sources) Chronic pain; Translations: [Other chronic pain] Chronic Other nervous system disorders (14 sources) Obstructive hydrocephalus; Translations: [Hydrocephalus, unspecified] Chronic Other nervous system disorders (2 sources) Hydrocephalus, unspecified Chronic Other nervous system disorders (1 source) Communicating hydrocephalus; 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)] Onset: 05-17-19 Chronic Other nervous system disorders (3 sources) Ventriculoperitoneal shunt in situ; Translations: [Presence of cerebrospinal fluid drainage device] Chronic Other nervous system disorders (2 sources) Presence of cerebrospinal fluid drainage device Chronic Other nervous system disorders (11 sources) Normal pressure hydrocephalus; Translations: [Idiopathic normal pressure hydrocephalus (INPH)] Onset: 03-12-2003-12-2023 Chronic Other nervous system disorders (3 sources) (Idiopathic) normal pressure hydrocephalus; Translations: [(Idiopathic) normal pressure hydrocephalus] Onset: 07-23-19 Chronic Other nervous system disorders (4 sources) Other symptoms and signs involving cognitive functions and awareness; Translations: [OTH SX SIGNS COG FUNC AND AWARENESS] Onset: 07-22-19 Episodic Other nervous system disorders (1 source) Acute postoperative pain; Translations: [Other acute postprocedural pain] 03-23-2023 Episodic Other nutritional; endocrine; and metabolic disorders (14 sources) Obese class I; Translations: [Body mass index (BMI) 31.0-31.9, adult] Chronic Other nutritional; endocrine; and metabolic disorders (14 sources) Body mass index 30+ - obesity; Translations: [Body mass index (BMI) 30.0-30.9, adult] Chronic Other nutritional; endocrine; and metabolic disorders (14 sources) Obesity; Translations: [Obesity, unspecified] Chronic Pulmonary heart disease (1 source) Pulmonary hypertension, unspecified; Translations: [PULMONARY HYPERTENSION UNSPECIFIED] Onset: 01-28-20 Chronic Residual codes; unclassified (15 sources) Obstructive sleep apnea syndrome; Translations: [Obstructive sleep apnea (adult) (pediatric)] Onset: 03-12-2011-03-2021 Chronic Residual codes; unclassified (1 source) Sleep apnea, unspecified; Translations: [SLEEP APNEA UNSPECIFIED] Onset: 01-28-20 Chronic Residual codes; unclassified (7 sources) Transfusion of blood product refused for confucianist reason; Translations: [Procedure and treatment not carried out because of patient's decision for reasons of belief and group pressure] 11-03-2021 Episodic Residual codes; unclassified (2 sources) History of hernia repair; Translations: [Other specified postprocedural states] Episodic Spondylosis; intervertebral disc disorders; other back problems (20 sources) Degeneration of cervical intervertebral disc; Translations: [Other cervical disc degeneration, unspecified cervical region] Onset: 03-21-20 Resolved : 03-23-20 Chronic Unclassified (2 sources) Obstructive sleep apnea (adult) (pediatric); Translations: [OBSTRUCTIVE SLEEP APNEA (ADULT) (PEDIATRIC)] Onset: 01-13-20 Chronic Unclassified (20 sources) Abnormal result of other cardiovascular function study; Translations: [Renal function tests abnormal] Onset: 01-13-20 Episodic Unclassified (2 sources) Unknown / UNK(Unknown) Onset: 01-13-20 Unclassified (3 sources) CONTACT W/AND (SUSP) EXPOS COVID-19; Translations: [CONTACT W/AND (SUSP) EXPOS COVID-19] Onset: 08-01-19 Unclassified (1 source) CHRN KIDNEY DISEASE STG 3 UNSP; Translations: [CHRN KIDNEY DISEASE STG 3 UNSP] Onset: 05-20-19 Unclassified (1 source) Pain in right knee; Translations: [Pain in right knee] Onset: 08-04-19 Unclassified (1 source) Encounter for screening mammogram for malignant neoplasm of breast; Translations: [Encounter for screening mammogram for malignant neoplasm of breast] Onset: 07-31-19 Unclassified (7 sources) Patient has spine surgery Onset: 02-19-20 23 02-18-2023 Viral infection (1 source) COVID-19; Translations: [COVID-19] Onset: 01-09-20 Past or Other Problems Problem Classification Problem Date Documented Da te Episodic/Chronic Abdominal hernia (16 sources) Paraesophageal hernia; 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] Onset: 10-06-2021 Resolved: 10-06-2021 Episodic Chronic kidney disease (9 sources) Chronic kidney disease; Translations: [Chronic kidney disease, stage 3 unspecified] Onset: 06-02-2021 Resolved: 11-30-2021 Deficiency and other anemia (1 source) Iron deficiency anemia, unspecified; Translations: [Iron deficiency anemia, unspecified] Onset: 04-08-2022 Episodic Diabetes mellitus without complication (1 source) Other abnormal glucose; Translations: [OTHER ABNORMAL GLUCOSE] Onset: 01-27-2022 Episodic Heart valve disorders (16 sources) Heart murmur; Translations: [Cardiac murmur, unspecified] Onset: 11-03-2021 11-03-2021 Episodic Nonspecific chest pain (1 source) Chest pain, unspecified; Translations: [CHEST PAIN, UNSPECIFIED] Onset: 01-12-2017 Episodic Other aftercare (1 source) half-way (current) use of aspirin; Translations: [DETENTION (CURRENT) USE OF ASPIRIN] Onset: 01-12-2017 Episodic Other connective tissue disease (1 source) Abnormal posture; Translations: [ABNORMAL POSTURE] Onset: 01-27-2022 Episodic Other connective tissue disease (6 sources) Arthrodesis status; Translations: [Arthrodesis status] Onset: 03-21-2023 Episodic Other gastrointestinal disorders (2 sources) Drug induced constipation; Translations: [Drug induced constipation] Onset: 03-21-2023 Episodic Other lower respiratory disease (1 source) Shortness of breath; Translations: [SHORTNESS OF BREATH] Onset: 01-12-2017 Episodic Other nervous system disorders (18 sources) Abnormal gait; Translations: [Unspecified abnormalities of gait and mobility] Onset: 08-19-2005 08-19-2005 Episodic Other nervous system disorders (1 source) Other abnormalities of gait and mobility; Translations: [OTHER ABNORMALITIES GAIT AND MOBILITY] Onset: 01-27-2022 Episodic Other nervous system disorders (4 sources) Other acute postprocedural pain; Translations: [Other acute postprocedural pain] Onset: 03-21-2023 Episodic Residual codes; unclassified (1 source) Procedure and treatment not carried out because of patient's decision for reasons of belief and group pressure; Translations: [Refusal of blood transfusions as patient is Jew] Onset: 11-03-2021 Episodic Residual codes; unclassified (1 source) Other specified postprocedural states; Translations: [Other specified postprocedural states] Onset: 06-08-2022 Episodic Spondylosis; intervertebral disc disorders; other back problems (20 sources) Cervical radiculopathy; Translations: [Radiculopathy, cervical region] Onset: 01-25-2022 Episodic Unclassified (1 source) CONTACT W/AND (SUSP) EXPOS COVID-19; Translations: [CONTACT W/AND (SUSP) EXPOS COVID-19] Onset: 07-27-2022 Unclassified (4 sources) Onset: 05-10-2023 Resolved: 06-16-2023 05-10-2023 Results Test Name Value Interpretation Reference Range Facility XR Cervical spine 2 or 3 Vie wson 06-10-2023 No hardware failure at the C3-C7 anterior fusion. Mild spondylosis at C7-T1 MACRO: None Signed by: Raul Peter 06/10/2023 6:21 PM Dictation workstation: [id number] [facility] Interpreted By: Raul Hernandes, STUDY: XR CERVICAL SPINE 2-3 VIEWS; ; 06/09/2023 2:35 pm INDICATION: Signs/Symptoms:To assess the fusion. COMPARISON: 05/05/2023 ACCESSION NUMBER(S): [id number] ORDERING CLINICIAN: MIREILLE ZURITA FINDINGS: C-spine, two views Anterior fusion C3 through C7. The hardware is intact. The prevertebral soft tissues are within normal limits. There is no fracture or spondylolisthesis. There is mild spondylotic change at C7-T1 [facility] Raul Peter MD - 06/10/2023 Interpreted By: Raul Peter, STUDY: XR CERVICAL SPINE 2-3 VIEWS; ; 06/09/2023 2:35 pm INDICATION: Signs/Symptoms:To assess the fusion. COMPARISON: 05/05/2023 ACCESSION NUMBER(S): [id number] ORDERING CLINICIAN: MIREILLE ZURITA FINDINGS: C-spine, two views Anterior fusion C3 through C7. The hardware is intact. The prevertebral soft tissues are within normal limits. There is no fracture or spondylolisthesis. There is mild spondylotic change at C7-T1 IMPRESSION: No hardware failure at the C3-C7 anterior fusion. Mild spondylosis at C7-T1 MACRO: None Signed by: Raul Peter 06/10/2023 6:21 PM Dictation workstation: [id number] [facility] Work Phone: XR Cervical spine 2 or 3 Vie wsOrdered By: Raul Peter on 06-10-2023 [facility] Work Phone: XR CERVICAL SPINE 2-3 VIEWSo n 06-09-2023 XR CERVICAL SPINE 2-3 VIEWS Interpreted By: Raul Peter, STUDY: XR CERVICAL SPINE 2-3 VIEWS; ; 06/09/2023 2:35 pm INDICATION: Signs/Symptoms:To assess the fusion. COMPARISON: 05/05/2023 ACCESSION NUMBER(S): [id number] ORDERING CLINICIAN: MIREILLE ZURITA FINDINGS: C-spine, two views Anterior fusion C3 through C7. The hardware is intact. The prevertebral soft tissues are within normal limits. There is no fracture or spondylolisthesis. There is mild spondylotic change at C7-T1 IMPRESSION: No hardware failure at the C3-C7 anterior fusion. Mild spondylosis at C7-T1 MACRO: None Signed by: Raul Peter 06/10/2023 6:21 PM Dictation workstation: [id number] [facility] XR Cervical spine 2 or 3 Vie wson 06-09-2023 Radiology Study observation (narrative) [facility] Work Phone: XR CERVICAL SPINE 2-3 VIEWSo n 05-05-2023 XR CERVICAL SPINE 2-3 VIEWS Interpreted By: Juan Jose Sen, STUDY: XR CERVICAL SPINE 2-3 VIEWS INDICATION: Signs/Symptoms:s/p ACDF C3 - 7 on 03/21/2023. XRAY ON OR AFTER MAY 05, 2023, for appointment 05/12/2023. COMPARISON: March 22 ACCESSION NUMBER(S): [id number] ORDERING CLINICIAN: ARASELI FAUSTIN FINDINGS: Anterior cervical fusion C3 through C7 with plate and disc space replacement. Alignment normal. Prevertebral soft tissues improving. IMPRESSION: Satisfactory appearance C3 through C7 anterior fusion. Signed by: Juan Jose Sen 05/07/2023 7:02 AM Dictation workstation: [id number] [facility] ECG 12 LeadOrdered By: Camilo Parr on 03-28-2023 Atrial Rate 63 BPM [facility] Work Phone: P Cocoa 51 degrees [facility] Work Phone: P Offset 183 ms [facility] Work Phone: [phone] P Onset 128 ms [facility] Work Phone: WI Interval 192 ms [facility] Work Phone: Q Onset 224 ms [facility] Work Phone: QRS Count 10 beats [facility] Work Phone: QRS Duration 84 ms [facility] Work Phone: QT Interval 406 ms [facility] Work Phone: QTC Calculation(Bazet t) 415 ms [facility] Work Phone: [phone] QTC Fredericia 412 ms [facility] Work Phone: R Cocoa 52 degrees [facility] Work Phone: T Cocoa 44 degrees [facility] Work Phone: T Offset 427 ms [facility] Work Phone: Ventricular Rate 63 BPM [facility] Work Phone: [facility] Work Phone: [phone] ECG 12 Leadon 03-28-2023 Normal sinus rhythm Normal ECG No previous ECGs available Confirmed by Camilo Parr ([id number]) on 03/28/2023 9:17:27 PM MUSE Camilo Parr MD - Normal sinus rhythm Normal ECG No previous ECGs available Confirmed by Camilo Parr ([id number]) on 03/28/2023 9:17:27 PM [facility] Work Phone: Basic metabolic 2000 panelon 03-23-2023 Anion gap [Moles/Vol] 13 mmol/L Normal 10-20 [facility] Comment on above: Performed By: #### 3 4529-8 #### MADELEINE ROSE ([id number]) [facility] ([facility]) [address] [facility] [place] [address] Calcium [Mass/Vol] 8.7 mg/dL Normal 8.6-10.3 [facility] Comment on above: Performed By: #### 3 4529-8 #### MADELEINE ROSE ([id number]) [facility] ([facility]) [address] [place] [address] Chloride [Moles/Vol] 101 mmol/L Normal 98-107 [facility] Comment on above: Performed By: #### 3 4529-8 #### MADELEINE ROSE ([id number]) [facility] ([facility]) [address] [place] [address] CO2 [Moles/Vol] 26 mmol/L Normal 21-32 [facility] Comment on above: Performed By: #### 3 4529-8 #### MADELEINE ROSE ([id number]) [facility] ([facility]) [address] [place] [address] Creatinine [Mass/Vol] 0.90 mg/dL Normal 0.50-1.05 [facility] Comment on above: Performed By: #### 3 4529-8 #### MADELEINE ROSE ([id number]) [facility] ([facility]) [address] [facility] [place] [address] GFR/1.73 sq M.predicted MDRD (S/P/Bld) [Vol rate/Area] 69 mL/min/1.73m*2 Normal >60 [facility] Comment on above: Result Comment: Calc ulations of estimated GFR are performed using the 2020 CKD-EPI Study Refit equation without the race variable for the IDMS-Traceable creatinine methods. https://jasn.asnjournals.org/content//ASN.3260863247 Performed By: #### 3 4529-8 #### MADELEINE ROSE ([id number]) [facility] ([facility]) [address] [place] [address] Glucose [Mass/Vol] 97 mg/dL Normal 74-99 [facility] Comment on above: Performed By: #### 3 4529-8 #### MADELEINE ROSE ([id number]) [facility] ([facility]) [address] [place] [address] Potassium [Moles/Vol] 3.7 mmol/L Normal 3.5-5.3 [facility] Comment on above: Performed By: #### 3 4529-8 #### MADELEINE ROSE ([id number]) [facility] ([facility]) [address] [place] [address] Sodium [Moles/Vol] 136 mmol/L Normal 136-145 [facility] Comment on above: Performed By: #### 3 4529-8 #### MADELEINE ROSE ([id number]) [facility] ([facility]) [address] [place] [address] Urea nitrogen [Mass/Vol] 11 mg/dL Normal 6-23 [facility] Comment on above: Performed By: #### 3 4529-8 #### MADELEINE ROSE ([id number]) [facility] ([facility]) [address] [place] [address] Anion gap [Moles/Vol] 13 mmol/L 10 - 20 mmol/L [facility] Calcium [Mass/Vol] 8.7 mg/dL 8.6 - 10.3 mg/dL [facility] Chloride [Moles/Vol] 101 mmol/L 98 - 107 mmol/L [facility] CO2 [Moles/Vol] 26 mmol/L 21 - 32 mmol/L [facility] Creatinine [Mass/Vol] 0.90 mg/dL 0.50 - 1.05 mg/dL [facility] GFR/1.73 sq M.predicted MDRD (S/P/Bld) [Vol rate/Area] 69 mL/min/{1.73_m2} - PINF [facility] Comment on above: Calculations of gabriela mated GFR are performed using the 2020 CKD-EPI Study Refit equation without the race variable for the IDMS-Traceable creatinine methods. https://jasn.asnjournals.org/content//ASN.1902170200 Glucose [Mass/Vol] 97 mg/dL 74 - 99 mg/dL [facility] Interpretation and review of laboratory results Normal [facility] Potassium [Moles/Vol] 3.7 mmol/L 3.5 - 5.3 mmol/L [facility] Sodium [Moles/Vol] 136 mmol/L 136 - 145 mmol/L [facility] Urea nitrogen [Mass/Vol] 11 mg/dL 6 - 23 mg/dL [facility] CBC panel Auto (Bld)on 03-23 Erythrocyte distribution width (RBC) [Ratio] 13.4 % Normal 11.5-14.5 [facility] Comment on above: Performed By: #### 3 4529-8 #### MADELEINE ROSE ([id number]) [facility] ([facility]) [address] [place] [address] Hematocrit (Bld) [Volume fraction] 35.3 % Low 36.0-46.0 [facility] Comment on above: Performed By: #### 3 4529-8 #### MADELEINE ROSE ([id number]) [facility] ([facility]) [address] [place] [address] Hemoglobin (Bld) [Mass/Vol] 11.4 g/dL Low 12.0-16.0 [facility] Comment on above: Performed By: #### 3 4529-8 #### MADELEINE ROSE ([id number]) [facility] ([facility]) [address] [place] [address] MCH (RBC) [Entitic mass] 30.4 pg Normal 26.0-34.0 [facility] Comment on above: Performed By: #### 3 4529-8 #### MADELEINE ROSE ([id number]) [facility] ([facility]) [address] [facility] [place] [address] MCHC (RBC) [Mass/Vol] 32.3 g/dL Normal 32.0-36.0 [facility] Comment on above: Performed By: #### 3 4529-8 #### MADELEINE ROSE ([id number]) [facility] ([facility]) [address] [facility] [place] [address] MCV (RBC) [Entitic vol] 94 fL Normal 80-100 [facility] Comment on above: Performed By: #### 3 4529-8 #### MADELEINE ROSE ([id number]) [facility] ([facility]) [address] [place] [address] Nucleated RBC/100 WBC (Bld) [Ratio] 0.0 /100 WBCs Normal 0.0-0.0 [facility] Comment on above: Performed By: #### 3 4529-8 #### MADELEINE ROSE ([id number]) [facility] ([facility]) [address] [facility] [place] [address] Platelets (Bld) [#/Vol] 310 x10*3/uL Normal 150-450 [facility] Comment on above: Performed By: #### 3 4529-8 #### MADELEINE ROSE ([id number]) [facility] ([facility]) [address] [place] [address] RBC (Bld) [#/Vol] 3.75 x10*6/uL Low 4.00-5.20 [facility] Comment on above: Performed By: #### 3 4529-8 #### MADELEINE ROSE ([id number]) [facility] ([facility]) [address] [place] [address] WBC (Bld) [#/Vol] 9.9 x10*3/uL Normal 4.4-11.3 [facility] Comment on above: Performed By: #### 3 4529-8 #### MADELEINE ROSE ([id number]) [facility] ([facility]) [address] [place] [address] Erythrocyte distribution width (RBC) [Ratio] 13.4 % 11.5 - 14.5 % [facility] Hematocrit (Bld) [Volume fraction] 35.3 % Low 36.0 - 46.0 % [facility] Hemoglobin (Bld) [Mass/Vol] 11.4 g/dL Low 12.0 - 16.0 g/dL [facility] Interpretation and review of laboratory results Abnormal [facility] MCH (RBC) [Entitic mass] 30.4 pg 26.0 - 34.0 pg [facility] MCHC (RBC) [Mass/Vol] 32.3 g/dL 32.0 - 36.0 g/dL [facility] MCV (RBC) [Entitic vol] 94 fL 80 - 100 fL [facility] Nucleated RBC/100 WBC (Bld) [Ratio] 0.0 % [facility] Platelets (Bld) [#/Vol] 310 10*3/uL [facility] RBC (Bld) [#/Vol] 3.75 10*6/uL [facility] WBC (Bld) [#/Vol] 9.9 10*3/uL [facility] Basic metabolic 2000 panelon 03-22-2023 Anion gap [Moles/Vol] 11 mmol/L Normal 10-20 [facility] Comment on above: Performed By: #### 2 4321-2 #### MADELEINE ROSE ([id number]) [facility] ([facility]) [address] [place] [address] Calcium [Mass/Vol] 8.8 mg/dL Normal 8.6-10.3 [facility] Comment on above: Performed By: #### 2 4321-2 #### MADELEINE ROSE ([id number]) [facility] ([facility]) [address] [place] [address] Chloride [Moles/Vol] 102 mmol/L Normal 98-107 [facility] Comment on above: Performed By: #### 2 4321-2 #### MADELEINE ROSE ([id number]) [facility] ([facility]) [address] [place] [address] CO2 [Moles/Vol] 26 mmol/L Normal 21-32 [facility] Comment on above: Performed By: #### 2 4321-2 #### MADELEINE ROSE ([id number]) [facility] ([facility]) [address] [place] [address] Creatinine [Mass/Vol] 0.83 mg/dL Normal 0.50-1.05 [facility] Comment on above: Performed By: #### 2 1-2 #### MADELEINE ROSE ([id number]) [facility] ([facility]) [address] [facility] [place] [address] GFR/1.73 sq M.predicted MDRD (S/P/Bld) [Vol rate/Area] 76 mL/min/1.73m*2 Normal >60 [facility] Comment on above: Result Comment: Calc ulations of estimated GFR are performed using the 2020 CKD-EPI Study Refit equation without the race variable for the IDMS-Traceable creatinine methods. https://jasn.asnjournals.org/content/early//ASN.7601631324 Performed By: #### 2 4320-2 #### MADELEINE ROSE ([id number]) [facility] ([facility]) [address] [place] [address] Glucose [Mass/Vol] 109 mg/dL High 74-99 [facility] Comment on above: Performed By: #### 2 1-2 #### MADELEINE ROSE ([id number]) [facility] ([facility]) [address] [place] [address] Potassium [Moles/Vol] 3.9 mmol/L Normal 3.5-5.3 [facility] Comment on above: Performed By: #### 2 4320-2 #### MADELEINE ROSE ([id number]) [facility] ([facility]) [address] [place] [address] Sodium [Moles/Vol] 135 mmol/L Low 136-145 [facility] Comment on above: Performed By: #### 2 4321-2 #### MADELEINE ROSE ([id number]) [facility] ([facility]) [address] [place] [address] Urea nitrogen [Mass/Vol] 11 mg/dL Normal 6-23 [facility] Comment on above: Performed By: #### 2 4321-2 #### MADELEINE ROSE ([id number]) [facility] ([facility]) [address] [place] [address] Anion gap [Moles/Vol] 11 mmol/L 10 - 20 mmol/L [facility] Calcium [Mass/Vol] 8.8 mg/dL 8.6 - 10.3 mg/dL [facility] Chloride [Moles/Vol] 102 mmol/L 98 - 107 mmol/L [facility] CO2 [Moles/Vol] 26 mmol/L 21 - 32 mmol/L [facility] Creatinine [Mass/Vol] 0.83 mg/dL 0.50 - 1.05 mg/dL [facility] GFR/1.73 sq M.predicted MDRD (S/P/Bld) [Vol rate/Area] 76 mL/min/{1.73_m2} - [facility] Comment on above: Calculations of gabriela mated GFR are performed using the 2020 CKD-EPI Study Refit equation without the race variable for the IDMS-Traceable creatinine methods. https://jasn.asnjournals.org/content//ASN.8994434033 Glucose [Mass/Vol] 109 mg/dL High 74 - 99 mg/dL [facility] Interpretation and review of laboratory results Abnormal [facility] Potassium [Moles/Vol] 3.9 mmol/L 3.5 - 5.3 mmol/L [facility] Sodium [Moles/Vol] 135 mmol/L Low 136 - 145 mmol/L [facility] Urea nitrogen [Mass/Vol] 11 mg/dL 6 - 23 mg/dL [facility] CBC panel Auto (Bld)on 03-22 Erythrocyte distribution width (RBC) [Ratio] 13.5 % Normal 11.5-14.5 [facility] Comment on above: Performed By: #### 5 8410-2 #### MADELEINE ROSE ([id number]) [facility] ([facility]) [address] [place] [address] Hematocrit (Bld) [Volume fraction] 36.7 % Normal 36.0-46.0 [facility] Comment on above: Performed By: #### 5 8410-2 #### MADELEINE ROSE ([id number]) [facility] ([facility]) [address] [place] [address] Hemoglobin (Bld) [Mass/Vol] 11.6 g/dL Low 12.0-16.0 [facility] Comment on above: Performed By: #### 5 8410-2 #### MADELEINE ROSE ([id number]) [facility] ([facility]) [address] [place] [address] MCH (RBC) [Entitic mass] 30.2 pg Normal 26.0-34.0 [facility] Comment on above: Performed By: #### 5 8410-2 #### MADELEINE ROSE ([id number]) [facility] ([facility]) [address] [place] [address] MCHC (RBC) [Mass/Vol] 31.6 g/dL Low 32.0-36.0 [facility] Comment on above: Performed By: #### 5 8410-2 #### MADELEINE ROSE ([id number]) [facility] ([facility]) [address] [place] [address] MCV (RBC) [Entitic vol] 96 fL Normal 80-100 [facility] Comment on above: Performed By: #### 5 8410-2 #### MADELEINE ROSE ([id number]) [facility] ([facility]) [address] [place] [address] Nucleated RBC/100 WBC (Bld) [Ratio] 0.0 /100 WBCs Normal 0.0-0.0 [facility] Comment on above: Performed By: #### 5 8410-2 #### MADELEINE ROSE ([id number]) [facility] ([facility]) [address] [place] [address] Platelets (Bld) [#/Vol] 330 x10*3/uL Normal 150-450 [facility] Comment on above: Performed By: #### 5 8410-2 #### MADELEINE ROSE ([id number]) [facility] ([facility]) [address] [place] [address] RBC (Bld) [#/Vol] 3.84 x10*6/uL Low 4.00-5.20 [facility] Comment on above: Performed By: #### 5 8410-2 #### MADELEINE ROSE ([id number]) [facility] ([facility]) [address] [place] [address] WBC (Bld) [#/Vol] 12.1 x10*3/uL High 4.4-11.3 [facility] Comment on above: Performed By: #### 5 8410-2 #### MADELEINE ROSE ([id number]) [facility] ([facility]) [address] [place] [address] Erythrocyte distribution width (RBC) [Ratio] 13.5 % 11.5 - 14.5 % [facility] Hematocrit (Bld) [Volume fraction] 36.7 % 36.0 - 46.0 % [facility] Hemoglobin (Bld) [Mass/Vol] 11.6 g/dL Low 12.0 - 16.0 g/dL [facility] Interpretation and review of laboratory results Abnormal [facility] MCH (RBC) [Entitic mass] 30.2 pg 26.0 - 34.0 pg [facility] MCHC (RBC) [Mass/Vol] 31.6 g/dL Low 32.0 - 36.0 g/dL [facility] MCV (RBC) [Entitic vol] 96 fL 80 - 100 fL [facility] Nucleated RBC/100 WBC (Bld) [Ratio] 0.0 % [facility] Platelets (Bld) [#/Vol] 330 10*3/uL [facility] RBC (Bld) [#/Vol] 3.84 10*6/uL [facility] WBC (Bld) [#/Vol] 12.1 10*3/uL [facility] XR CERVICAL SPINE 2-3 VIEWSo n 03-22-2023 XR CERVICAL SPINE 2-3 VIEWS Interpreted By: Juwan Petit, STUDY: XR CERVICAL SPINE 2-3 VIEWS; ; 03/22/2023 6:16 am INDICATION: Signs/Symptoms:post op evaluation. COMPARISON: 03/21/2023 at 12:31 p.m. ACCESSION NUMBER(S): [id number] ORDERING CLINICIAN: MARY PATRICK FINDINGS: Two view cervical spine Postoperative changes with indwelling surgical hardware with fixation plate and screws extending from C3 through C7. Disc spacers/grafts at the intervening levels. Surgical hardware appears grossly intact. Satisfactory alignment. Moderate disc space narrowing and anterior osteophytes C7-T1. Multilevel facet arthropathy throughout. Moderate prevertebral soft tissue swelling. There is an overlying catheter may represent a drainage catheter with distal aspect just anterior to the surgical hardware at approximately C4 level. Prevertebral soft tissue swelling measures up to at least 1.7 cm thickness at C6 level. There is probably some remaining prevertebral and anterior neck soft tissue/subcutaneous gas although appears less pronounced compared to prior. There are some overlying densities/artifacts otherwise limiting evaluation however. IMPRESSION: Postoperative changes within indwelling surgical hardware as described from C3 through C7. Moderate prevertebral soft tissue swelling with probably indwelling drainage catheter and there is also likely some remaining prevertebral and anterior neck soft tissue/subcutaneous gas although appears less pronounced compared to prior. Evaluation otherwise limited due to overlying structures/artifact. Continued clinical correlation and follow-up advised. MACRO: None Signed by: Juwan Petit 03/22/2023 9:24 AM Dictation workstation: [id number] [facility] XR Cervical spine 2 or 3 Vie wson 03-22-2023 Postoperative change s within indwelling surgical hardware as described from C3 through C7. Moderate prevertebral soft tissue swelling with probably indwelling drainage catheter and there is also likely some remaining prevertebral and anterior neck soft tissue/subcutaneous gas although appears less pronounced compared to prior. Evaluation otherwise limited due to overlying structures/artifact. Continued clinical correlation and follow-up advised. MACRO: None Signed by: Juwan Petit 03/22/2023 9:24 AM Dictation workstation: [id number] [facility] Interpreted By: Juwan Rhoades, STUDY: XR CERVICAL SPINE 2-3 VIEWS; ; 03/22/2023 6:16 am INDICATION: Signs/Symptoms:post op evaluation. COMPARISON: 03/21/2023 at 12:31 p.m. ACCESSION NUMBER(S): [id number] ORDERING CLINICIAN: MARY SHELL FINDINGS: Two view cervical spine Postoperative changes with indwelling surgical hardware with fixation plate and screws extending from C3 through C7. Disc spacers/grafts at the intervening levels. Surgical hardware appears grossly intact. Satisfactory alignment. Moderate disc space narrowing and anterior osteophytes C7-T1. Multilevel facet arthropathy throughout. Moderate prevertebral soft tissue swelling. There is an overlying catheter may represent a drainage catheter with distal aspect just anterior to the surgical hardware at approximately C4 level. Prevertebral soft tissue swelling measures up to at least 1.7 cm thickness at C6 level. There is probably some remaining prevertebral and anterior neck soft tissue/subcutaneous gas although appears less pronounced compared to prior. There are some overlying densities/artifacts otherwise limiting evaluation however. MMODAL Juwan Petit, - 03/22/2023 Interpreted By: Juwan Petit, STUDY: XR CERVICAL SPINE 2-3 VIEWS; ; 03/22/2023 6:16 am INDICATION: Signs/Symptoms:post op evaluation. COMPARISON: 03/21/2023 at 12:31 p.m. ACCESSION NUMBER(S): [id number] ORDERING CLINICIAN: MARY PATRICK FINDINGS: Two view cervical spine Postoperative changes with indwelling surgical hardware with fixation plate and screws extending from C3 through C7. Disc spacers/grafts at the intervening levels. Surgical hardware appears grossly intact. Satisfactory alignment. Moderate disc space narrowing and anterior osteophytes C7-T1. Multilevel facet arthropathy throughout. Moderate prevertebral soft tissue swelling. There is an overlying catheter may represent a drainage catheter with distal aspect just anterior to the surgical hardware at approximately C4 level. Prevertebral soft tissue swelling measures up to at least 1.7 cm thickness at C6 level. There is probably some remaining prevertebral and anterior neck soft tissue/subcutaneous gas although appears less pronounced compared to prior. There are some overlying densities/artifacts otherwise limiting evaluation however. IMPRESSION: Postoperative changes within indwelling surgical hardware as described from C3 through C7. Moderate prevertebral soft tissue swelling with probably indwelling drainage catheter and there is also likely some remaining prevertebral and anterior neck soft tissue/subcutaneous gas although appears less pronounced compared to prior. Evaluation otherwise limited due to overlying structures/artifact. Continued clinical correlation and follow-up advised. MACRO: None Signed by: Juwan Petit 03/22/2023 9:24 AM Dictation workstation: [id number] [facility] Work Phone: [facility] Work Phone: Radiology Study observation (narrative) [facility] Work Phone: XR Cervical spine Single vie won 03-22-2023 As above. MACRO: None Signed by: Juwan Petit 03/22/2023 9:17 AM Dictation workstation: [id number] [facility] Interpreted By: Juwan Rhoades, STUDY: XR CERVICAL SPINE 1 VIEW; ; 03/21/2023 12:54 pm INDICATION: Signs/Symptoms:surgical procedure. COMPARISON: 03/21/2023 at 10:17 a.m. ACCESSION NUMBER(S): [id number] ORDERING CLINICIAN: MIREILLE ZURITA FINDINGS: Single lateral intraoperative view Postoperative changes with indwelling surgical hardware with fixation plate and multiple screws extending from C3 level superiorly to C7 level inferiorly although this level is not well visualized on this examination. Associated screws overlie the C3 through C5 vertebral bodies as well as C7. Apparent retractor device overlies the neck anteriorly limiting evaluation. There is evidence of prevertebral and anterior neck soft tissue swelling also with some prevertebral soft tissue gas and subcutaneous/soft tissue gas in the anterior neck soft tissues as noted previously. Continued clinical correlation and follow-up advised. [facility] Juwan Petit DO - 03/22/2023 Interpreted By: Juwan Petit, STUDY: XR CERVICAL SPINE 1 VIEW; ; 03/21/2023 12:54 pm INDICATION: Signs/Symptoms:surgical procedure. COMPARISON: 03/21/2023 at 10:17 a.m. ACCESSION NUMBER(S): [id number] ORDERING CLINICIAN: MIREILLE ZURITA FINDINGS: Single lateral intraoperative view Postoperative changes with indwelling surgical hardware with fixation plate and multiple screws extending from C3 level superiorly to C7 level inferiorly although this level is not well visualized on this examination. Associated screws overlie the C3 through C5 vertebral bodies as well as C7. Apparent retractor device overlies the neck anteriorly limiting evaluation. There is evidence of prevertebral and anterior neck soft tissue swelling also with some prevertebral soft tissue gas and subcutaneous/soft tissue gas in the anterior neck soft tissues as noted previously. Continued clinical correlation and follow-up advised. IMPRESSION: As above. MACRO: None Signed by: Juwan Petit 03/22/2023 9:17 AM Dictation workstation: [id number] [facility] Work Phone: [facility] Work Phone: As above. MACRO: None Signed by: Juwan Petit 03/22/2023 9:13 AM Dictation workstation: [id number] [facility] Interpreted By: Juwan Rhoades, STUDY: XR CERVICAL SPINE 1 VIEW; ; 03/21/2023 10:16 am INDICATION: Signs/Symptoms:surgical procedure. COMPARISON: 03/21/2023 at 8:58 a.m. ACCESSION NUMBER(S): [id number] ORDERING CLINICIAN: MIREILLE ZURITA FINDINGS: Single lateral intraoperative view There are 3 linear metallic surgical devices overlying the anterior neck, the superior and inferior most containing screws distally and overlying the C4 and C5 vertebral bodies, and the distal aspect of the middle device overlies the C4-C5 disc space. There is now a disc spacer/graft at C3-C4. Inferior aspect of C6 and below are not well visualized due to overlying soft tissues. There is prevertebral and anterior neck soft tissue swelling with associated prevertebral and anterior neck soft tissue/subcutaneous gas slightly more pronounced compared to prior. Continued clinical correlation and follow-up advised. MMODAL Juwan Petit DO - 03/22/2023 Interpreted By: Juwan Petit, STUDY: XR CERVICAL SPINE 1 VIEW; ; 03/21/2023 10:16 am INDICATION: Signs/Symptoms:surgical procedure. COMPARISON: 03/21/2023 at 8:58 a.m. ACCESSION NUMBER(S): [id number] ORDERING CLINICIAN: MIREILLE ZURITA FINDINGS: Single lateral intraoperative view There are 3 linear metallic surgical devices overlying the anterior neck, the superior and inferior most containing screws distally and overlying the C4 and C5 vertebral bodies, and the distal aspect of the middle device overlies the C4-C5 disc space. There is now a disc spacer/graft at C3-C4. Inferior aspect of C6 and below are not well visualized due to overlying soft tissues. There is prevertebral and anterior neck soft tissue swelling with associated prevertebral and anterior neck soft tissue/subcutaneous gas slightly more pronounced compared to prior. Continued clinical correlation and follow-up advised. IMPRESSION: As above. MACRO: None Signed by: Juwan Petit 03/22/2023 9:13 AM Dictation workstation: [id number] [facility] Work Phone: [facility] Work Phone: Linear metallic loca lization device is demonstrated with distal aspect/tip overlying the C3-C4 interspace anteriorly. Prevertebral soft tissue swelling and evidence of soft tissue gas within the prevertebral as well as likely also anterior neck soft tissues probably relating to sequela of recent procedure. Clinical correlation and follow-up advised. MACRO: None Signed by: Juwan Petit 03/22/2023 9:09 AM Dictation workstation: [id number] [facility] Interpreted By: Juwan Rhoades, STUDY: XR CERVICAL SPINE 1 VIEW; ; 03/21/2023 8:59 am INDICATION: Signs/Symptoms:Cervical spondylosis with myelopathy. COMPARISON: 03/21/2023 at 8:10 a.m. ACCESSION NUMBER(S): [id number] ORDERING CLINICIAN: MIREILLE ZURITA FINDINGS: Single lateral intraoperative view Linear metallic localization device is demonstrated with distal aspect/tip overlying the C3-C4 interspace anteriorly. Bones appear demineralized. Multilevel degenerative changes are demonstrated. C7 and below not visualized due to overlying soft tissues. There is prevertebral soft tissue swelling and there is now predominant vertical linear oriented gas within the anterior prevertebral soft tissues just anterior to the cervical spine extending from C2 inferiorly beyond the field of view. There is also likely some subcutaneous/soft tissue gas more anteriorly in the neck as well with some regional soft tissue swelling. [facility] Juwan Petit, DO - 03/22/2023 Interpreted By: Juwan Petit, STUDY: XR CERVICAL SPINE 1 VIEW; ; 03/21/2023 8:59 am INDICATION: Signs/Symptoms:Cervical spondylosis with myelopathy. COMPARISON: 03/21/2023 at 8:10 a.m. ACCESSION NUMBER(S): [id number] ORDERING CLINICIAN: MIREILLE ZURITA FINDINGS: Single lateral intraoperative view Linear metallic localization device is demonstrated with distal aspect/tip overlying the C3-C4 interspace anteriorly. Bones appear demineralized. Multilevel degenerative changes are demonstrated. C7 and below not visualized due to overlying soft tissues. There is prevertebral soft tissue swelling and there is now predominant vertical linear oriented gas within the anterior prevertebral soft tissues just anterior to the cervical spine extending from C2 inferiorly beyond the field of view. There is also likely some subcutaneous/soft tissue gas more anteriorly in the neck as well with some regional soft tissue swelling. IMPRESSION: Linear metallic localization device is demonstrated with distal aspect/tip overlying the C3-C4 interspace anteriorly. Prevertebral soft tissue swelling and evidence of soft tissue gas within the prevertebral as well as likely also anterior neck soft tissues probably relating to sequela of recent procedure. Clinical correlation and follow-up advised. MACRO: None Signed by: Juwan Petit 03/22/2023 9:09 AM Dictation workstation: [id number] [facility] Work Phone: [facility] Work Phone: XR CERVICAL SPINE 1 VIEWon 1 05-21-2022 XR CERVICAL SPINE 1 VIEW Interpreted By: Juwan Petit, STUDY: XR CERVICAL SPINE 1 VIEW; ; 03/21/2023 12:54 pm INDICATION: Signs/Symptoms:surgical procedure. COMPARISON: 03/21/2023 at 10:17 a.m. ACCESSION NUMBER(S): [id number] ORDERING CLINICIAN: MIREILLE ZURITA FINDINGS: Single lateral intraoperative view Postoperative changes with indwelling surgical hardware with fixation plate and multiple screws extending from C3 level superiorly to C7 level inferiorly although this level is not well visualized on this examination. Associated screws overlie the C3 through C5 vertebral bodies as well as C7. Apparent retractor device overlies the neck anteriorly limiting evaluation. There is evidence of prevertebral and anterior neck soft tissue swelling also with some prevertebral soft tissue gas and subcutaneous/soft tissue gas in the anterior neck soft tissues as noted previously. Continued clinical correlation and follow-up advised. IMPRESSION: As above. MACRO: None Signed by: Juwan Petit 03/22/2023 9:17 AM Dictation workstation: [id number] [facility] XR CERVICAL SPINE 1 VIEW Interpreted By: Juwan Petit, STUDY: XR CERVICAL SPINE 1 VIEW; ; 03/21/2023 10:16 am INDICATION: Signs/Symptoms:surgical procedure. COMPARISON: 03/21/2023 at 8:58 a.m. ACCESSION NUMBER(S): [id number] ORDERING CLINICIAN: MIREILLE ZURITA FINDINGS: Single lateral intraoperative view There are 3 linear metallic surgical devices overlying the anterior neck, the superior and inferior most containing screws distally and overlying the C4 and C5 vertebral bodies, and the distal aspect of the middle device overlies the C4-C5 disc space. There is now a disc spacer/graft at C3-C4. Inferior aspect of C6 and below are not well visualized due to overlying soft tissues. There is prevertebral and anterior neck soft tissue swelling with associated prevertebral and anterior neck soft tissue/subcutaneous gas slightly more pronounced compared to prior. Continued clinical correlation and follow-up advised. IMPRESSION: As above. MACRO: None Signed by: Juwan Petit 03/22/2023 9:13 AM Dictation workstation: [id number] [facility] XR CERVICAL SPINE 1 VIEW Interpreted By: Juwan Petit, STUDY: XR CERVICAL SPINE 1 VIEW; ; 03/21/2023 8:59 am INDICATION: Signs/Symptoms:Cervical spondylosis with myelopathy. COMPARISON: 03/21/2023 at 8:10 a.m. ACCESSION NUMBER(S): [id number] ORDERING CLINICIAN: MIREILLE ZURITA FINDINGS: Single lateral intraoperative view Linear metallic localization device is demonstrated with distal aspect/tip overlying the C3-C4 interspace anteriorly. Bones appear demineralized. Multilevel degenerative changes are demonstrated. C7 and below not visualized due to overlying soft tissues. There is prevertebral soft tissue swelling and there is now predominant vertical linear oriented gas within the anterior prevertebral soft tissues just anterior to the cervical spine extending from C2 inferiorly beyond the field of view. There is also likely some subcutaneous/soft tissue gas more anteriorly in the neck as well with some regional soft tissue swelling. IMPRESSION: Linear metallic localization device is demonstrated with distal aspect/tip overlying the C3-C4 interspace anteriorly. Prevertebral soft tissue swelling and evidence of soft tissue gas within the prevertebral as well as likely also anterior neck soft tissues probably relating to sequela of recent procedure. Clinical correlation and follow-up advised. MACRO: None Signed by: Juwan Petit 03/22/2023 9:09 AM Dictation workstation: [id number] [facility] XR CERVICAL SPINE 1 VIEW Interpreted By: Juwan Petit, STUDY: XR CERVICAL SPINE 1 VIEW; ; 03/21/2023 8:11 am INDICATION: Signs/Symptoms:surgical procedure. COMPARISON: 04/25/2020 ACCESSION NUMBER(S): [id number] ORDERING CLINICIAN: MIREILLE ZURITA FINDINGS: Single lateral view obtained in the OR Bones appear demineralized. Moderate disc space narrowing C5-C6 and marked disc space narrowing C6-C7 overall slightly worsened compared to prior. Prominent anterior osteophytes most notably at C4-C5 through C6-C7. Facet arthropathy throughout. C7 and below are not well visualized due to technical factors and overlying soft tissues. Slight reversal cervical lordosis. Minimal anterolisthesis C4 on C5. A linear radiopaque density or localization device overlies the anterior soft tissues at approximately the C4 level. Endotracheal tube is partially imaged. There is some apparent soft tissue prominence of the prevertebral soft tissues particularly at C5-C6 levels although could be artifactual related to positioning and otherwise of uncertain significance. IMPRESSION: As above. MACRO: None Signed by: Juwan Petit 03/21/2023 8:52 AM Dictation workstation: [id number] [facility] XR Cervical spine Single vie won 03-21-2023 Radiology Study observation (narrative) [facility] Work Phone: Radiology Study observation (narrative) [facility] Work Phone: Radiology Study observation (narrative) [facility] Work Phone: As above. MACRO: None Signed by: Juwan Petit 03/21/2023 8:52 AM Dictation workstation: [id number] [facility] Interpreted By: Juwan Rhoades, STUDY: XR CERVICAL SPINE 1 VIEW; ; 03/21/2023 8:11 am INDICATION: Signs/Symptoms:surgical procedure. COMPARISON: 04/25/2020 ACCESSION NUMBER(S): [id number] ORDERING CLINICIAN: MIREILLE ZURITA FINDINGS: Single lateral view obtained in the OR Bones appear demineralized. Moderate disc space narrowing C5-C6 and marked disc space narrowing C6-C7 overall slightly worsened compared to prior. Prominent anterior osteophytes most notably at C4-C5 through C6-C7. Facet arthropathy throughout. C7 and below are not well visualized due to technical factors and overlying soft tissues. Slight reversal cervical lordosis. Minimal anterolisthesis C4 on C5. A linear radiopaque density or localization device overlies the anterior soft tissues at approximately the C4 level. Endotracheal tube is partially imaged. There is some apparent soft tissue prominence of the prevertebral soft tissues particularly at C5-C6 levels although could be artifactual related to positioning and otherwise of uncertain significance. [facility] Ju[facility] Petit, DO - 03/21/2023 Interpreted By: Juwan Petit, STUDY: XR CERVICAL SPINE 1 VIEW; ; 03/21/2023 8:11 am INDICATION: Signs/Symptoms:surgical procedure. COMPARISON: 04/25/2020 ACCESSION NUMBER(S): [id number] ORDERING CLINICIAN: MIREILLE ZURITA FINDINGS: Single lateral view obtained in the OR Bones appear demineralized. Moderate disc space narrowing C5-C6 and marked disc space narrowing C6-C7 overall slightly worsened compared to prior. Prominent anterior osteophytes most notably at C4-C5 through C6-C7. Facet arthropathy throughout. C7 and below are not well visualized due to technical factors and overlying soft tissues. Slight reversal cervical lordosis. Minimal anterolisthesis C4 on C5. A linear radiopaque density or localization device overlies the anterior soft tissues at approximately the C4 level. Endotracheal tube is partially imaged. There is some apparent soft tissue prominence of the prevertebral soft tissues particularly at C5-C6 levels although could be artifactual related to positioning and otherwise of uncertain significance. IMPRESSION: As above. MACRO: None Signed by: Juwan Petit 03/21/2023 8:52 AM Dictation workstation: [id number] [facility] Work Phone: Radiology Study observation (narrative) [facility] Work Phone: XR Cervical spine Single vie wOrdered By: Juwan Petit on 03-21-2023 [facility] Work Phone: MRSA isol Org specific cx Ql (Nose)Ordered By: Cele Chatterjee on 03-16-2023 Interpretation and review of laboratory results Normal [facility] Staphylococcus sp identified Org specific cx Nom (Unsp spec) No Staphylococcus aureus isolated [facility] XR Chest 2 Viewson 3 No acute cardiopulmo nary disease. MACRO: none Signed by: Zeynep Sen 03/15/2023 12:07 PM Dictation workstation: [id number] Interpreted By: Zeynep Palafox, STUDY: XR CHEST 2 VIEWS; 03/14/2023 2:09 pm INDICATION: Signs/Symptoms:preop testing. COMPARISON: None. ACCESSION NUMBER(S): [id number] ORDERING CLINICIAN: MIREILLE ZURITA FINDINGS: Heart is normal in size. There is no consolidation or pleural fluid. There is a ventriculoperitoneal shunt. There is a question of an old left humeral fracture. There is what may represent a coil in the right upper quadrant. There are degenerative changes of the spine. The patient is scoliotic. COMPARISON OF FINDING: [facility] Zeynep Sen MD - 03/15/2023 Interpreted By: Zeynep Sen, STUDY: XR CHEST 2 VIEWS; 03/14/2023 2:09 pm INDICATION: Signs/Symptoms:preop testing. COMPARISON: None. ACCESSION NUMBER(S): [id number] ORDERING CLINICIAN: MIREILLE ZURITA FINDINGS: Heart is normal in size. There is no consolidation or pleural fluid. There is a ventriculoperitoneal shunt. There is a question of an old left humeral fracture. There is what may represent a coil in the right upper quadrant. There are degenerative changes of the spine. The patient is scoliotic. COMPARISON OF FINDING: IMPRESSION: No acute cardiopulmonary disease. MACRO: none Signed by: Zeynep Sen 03/15/2023 12:07 PM Dictation workstation: [id number] [facility] Work Phone: XR Chest 2 ViewsOrdered By: Zeynep Sen on 03-15-2023 [facility] Work Phone: CBC panel Auto (Bld)on 03-14 Erythrocyte distribution width (RBC) [Ratio] 13.0 % Normal 11.5-14.5 [facility] Comment on above: Performed By: #### 5 8410-2 #### MADELEINE ROSE ([id number]) [facility] ([facility]) [address] [place] [address] Hematocrit (Bld) [Volume fraction] 37.8 % Normal 36.0-46.0 [facility] Comment on above: Performed By: #### 5 8410-2 #### MADELEINE ROSE ([id number]) [facility] ([facility]) [address] [place] [address] Hemoglobin (Bld) [Mass/Vol] 12.2 g/dL Normal 12.0-16.0 [facility] Comment on above: Performed By: #### 5 8410-2 #### MADELEINE ROSE ([id number]) [facility] ([facility]) [address] [place] [address] MCH (RBC) [Entitic mass] 30.1 pg Normal 26.0-34.0 [facility] Comment on above: Performed By: #### 5 8410-2 #### MADELEINE ROSE ([id number]) [facility] ([facility]) [address] [place] [address] MCHC (RBC) [Mass/Vol] 32.3 g/dL Normal 32.0-36.0 [facility] Comment on above: Performed By: #### 5 8410-2 #### MADELEINE ROSE ([id number]) [facility] ([facility]) [address] [place] [address] MCV (RBC) [Entitic vol] 93 fL Normal 80-100 [facility] Comment on above: Performed By: #### 5 8410-2 #### MADELEINE ROSE ([id number]) [facility] ([facility]) [address] [place] [address] Nucleated RBC/100 WBC (Bld) [Ratio] 0.0 /100 WBCs Normal 0.0-0.0 [facility] Comment on above: Performed By: #### 5 8410-2 #### MADELEINE ROSE ([id number]) [facility] ([facility]) [address] [place] [address] Platelets (Bld) [#/Vol] 350 x10*3/uL Normal 150-450 [facility] Comment on above: Performed By: #### 5 8410-2 #### MADELEINE ROSE ([id number]) [facility] ([facility]) [address] [place] [address] RBC (Bld) [#/Vol] 4.05 x10*6/uL Normal 4.00-5.20 [facility] Comment on above: Performed By: #### 5 8410-2 #### MADELEINE ROSE ([id number]) [facility] ([facility]) [address] [place] [address] WBC (Bld) [#/Vol] 8.6 x10*3/uL Normal 4.4-11.3 [facility] Comment on above: Performed By: #### 5 8410-2 #### MADELEINE ROSE ([id number]) [facility] ([facility]) [address] [place] [address] Erythrocyte distribution width (RBC) [Ratio] 13.0 % 11.5 - 14.5 % [facility] Hematocrit (Bld) [Volume fraction] 37.8 % 36.0 - 46.0 % [facility] Hemoglobin (Bld) [Mass/Vol] 12.2 g/dL 12.0 - 16.0 g/dL [facility] Interpretation and review of laboratory results Normal [facility] MCH (RBC) [Entitic mass] 30.1 pg 26.0 - 34.0 pg [facility] MCHC (RBC) [Mass/Vol] 32.3 g/dL 32.0 - 36.0 g/dL [facility] MCV (RBC) [Entitic vol] 93 fL 80 - 100 fL [facility] Nucleated RBC/100 WBC (Bld) [Ratio] 0.0 % [facility] Platelets (Bld) [#/Vol] 350 10*3/uL [facility] RBC (Bld) [#/Vol] 4.05 10*6/uL [facility] WBC (Bld) [#/Vol] 8.6 10*3/uL [facility] Comprehensive metabolic 2000 panelon 03-14-2023 Albumin BCP dye [Mass/Vol] 4.3 g/dL Normal 3.4-5.0 [facility] Comment on above: Performed By: #### 2 4323-8 #### MADELEINE ROSE ([id number]) [facility] ([facility]) [address] [place] [address] ALP [Catalytic activity/Vol] 51 U/L Normal 33-136 [facility] Comment on above: Performed By: #### 2 4323-8 #### MADELEINE ROSE ([id number]) [facility] ([facility]) [address] [place] [address] ALT With P-5'-P [Catalytic activity/Vol] 14 U/L Normal 7-45 [facility] Comment on above: Result Comment: Lorena ents treated with Sulfasalazine may generate falsely decreased results for ALT. Performed By: #### 2 4323-8 #### MADELEINE ROSE ([id number]) [facility] ([facility]) [address] [place] [address] Anion gap [Moles/Vol] 10 mmol/L Normal 10-20 [facility] Comment on above: Performed By: #### 2 4323-8 #### MADELEINE ROSE ([id number]) [facility] ([facility]) [address] [place] [address] AST With P-5'-P [Catalytic activity/Vol] 13 U/L Normal 9-39 [facility] Comment on above: Performed By: #### 2 4323-8 #### MADELEINE ROSE ([id number]) [facility] ([facility]) [address] [place] [address] Bilirubin [Mass/Vol] 0.5 mg/dL Normal 0.0-1.2 [facility] Comment on above: Performed By: #### 2 4323-8 #### MADELEINE ROSE ([id number]) [facility] ([facility]) [address] [place] [address] Calcium [Mass/Vol] 9.2 mg/dL Normal 8.6-10.3 [facility] Comment on above: Performed By: #### 2 4323-8 #### MADELEINE ROSE ([id number]) [facility] ([facility]) [address] [place] [address] Chloride [Moles/Vol] 101 mmol/L Normal 98-107 [facility] Comment on above: Performed By: #### 2 4323-8 #### MADELEINE ROSE ([id number]) [facility] ([facility]) [address] [place] [address] CO2 [Moles/Vol] 29 mmol/L Normal 21-32 [facility] Comment on above: Performed By: #### 2 4323-8 #### MADELEINE ROSE ([id number]) [facility] ([facility]) [address] [place] [address] Creatinine [Mass/Vol] 0.95 mg/dL Normal 0.50-1.05 [facility] Comment on above: Performed By: #### 2 4323-8 #### MADELEINE ROSE ([id number]) [facility] ([facility]) [address] [place] [address] GFR/1.73 sq M.predicted MDRD (S/P/Bld) [Vol rate/Area] 65 mL/min/1.73m*2 Normal >60 [facility] Comment on above: Result Comment: Calc ulations of estimated GFR are performed using the 2020 CKD-EPI Study Refit equation without the race variable for the IDMS-Traceable creatinine methods. https://jasn.asnjournals.org/content//ASN.5440030480 Performed By: #### 2 4323-8 #### MADELEINE ROSE ([id number]) [facility] ([facility]) [address] [place] [address] Glucose [Mass/Vol] 83 mg/dL Normal 74-99 [facility] Comment on above: Performed By: #### 2 4323-8 #### MADELEINE ROSE ([id number]) [facility] ([facility]) [address] [place] [address] Potassium [Moles/Vol] 4.2 mmol/L Normal 3.5-5.3 [facility] Comment on above: Performed By: #### 2 4323-8 #### MADELEINE ROSE ([id number]) [facility] ([facility]) [address] [place] [address] Protein [Mass/Vol] 6.4 g/dL Normal 6.4-8.2 [facility] Comment on above: Performed By: #### 2 4323-8 #### MADELEINE ROSE ([id number]) [facility] ([facility]) [address] [place] [address] Sodium [Moles/Vol] 136 mmol/L Normal 136-145 [facility] Comment on above: Performed By: #### 2 4323-8 #### MADELEINE ROSE ([id number]) [facility] ([facility]) [address] [place] [address] Urea nitrogen [Mass/Vol] 21 mg/dL Normal 6-23 [facility] Comment on above: Performed By: #### 2 4323-8 #### MADELEINE ROSE ([id number]) [facility] ([facility]) [address] [place] [address] Albumin BCP dye [Mass/Vol] 4.3 g/dL 3.4 - 5.0 g/dL [facility] ALP [Catalytic activity/Vol] 51 U/L 33 - 136 U/L [facility] ALT With P-5'-P [Catalytic activity/Vol] 14 U/L 7 - 45 U/L [facility] Comment on above: Patients treated wit h Sulfasalazine may generate falsely decreased results for ALT. Anion gap [Moles/Vol] 10 mmol/L 10 - 20 mmol/L [facility] AST With P-5'-P [Catalytic activity/Vol] 13 U/L 9 - 39 U/L [facility] Bilirubin [Mass/Vol] 0.5 mg/dL 0.0 - 1.2 mg/dL [facility] Calcium [Mass/Vol] 9.2 mg/dL 8.6 - 10.3 mg/dL [facility] Chloride [Moles/Vol] 101 mmol/L 98 - 107 mmol/L [facility] CO2 [Moles/Vol] 29 mmol/L 21 - 32 mmol/L [facility] Creatinine [Mass/Vol] 0.95 mg/dL 0.50 - 1.05 mg/dL [facility] GFR/1.73 sq M.predicted MDRD (S/P/Bld) [Vol rate/Area] 65 mL/min/{1.73_m2} - PINF [facility] Comment on above: Calculations of gabriela mated GFR are performed using the 2020 CKD-EPI Study Refit equation without the race variable for the IDMS-Traceable creatinine methods. https://jasn.asnjournals.org/content//ASN.1045296898 Glucose [Mass/Vol] 83 mg/dL 74 - 99 mg/dL [facility] Potassium [Moles/Vol] 4.2 mmol/L 3.5 - 5.3 mmol/L [facility] Protein [Mass/Vol] 6.4 g/dL 6.4 - 8.2 g/dL [facility] Sodium [Moles/Vol] 136 mmol/L 136 - 145 mmol/L [facility] Urea nitrogen [Mass/Vol] 21 mg/dL 6 - 23 mg/dL [facility] ECG 12-LEADon 03-14-2023 ECG 12-LEAD Ventricular Rate 63 Atrial Rate 63 P-R Interval 192 QRS Duration 84 Q-T Interval 406 QTC Calculation(Bazett) 415 P Cocoa 51 R Cocoa 52 T Cocoa 44 QRS Count 10 Q Onset 224 P Onset 128 P Offset 183 T Offset 427 QTC Fredericia 412 Diagnosis Normal sinus rhythm Normal ECG No previous ECGs available Confirmed by Camilo Parr ([id number]) on 03/28/2023 9:17:27 PM Normal [facility] No Panel Informationon 03-14 Interpretation and review of laboratory results Normal [facility] PT and aPTT panel Coag (PPP) on 03-14-2023 aPTT Coag (PPP) [Time] 29 s Normal 27-38 [facility] Comment on above: Order Comment: The A PTT is no longer used for monitoring Unfractionated Heparin Therapy. For monitoring Heparin Therapy, use the Heparin Assay. Performed By: #### 3 4529-8 #### MADELEINE ROSE ([id number]) [facility] ([facility]) [address] [place] [address] INR Coag (PPP) [Relative time] 1.0 Normal 0.9-1.1 [facility] Comment on above: Order Comment: The A PTT is no longer used for monitoring Unfractionated Heparin Therapy. For monitoring Heparin Therapy, use the Heparin Assay. Performed By: #### 3 4529-8 #### MADELEINE ROSE ([id number]) [facility] ([facility]) [address] [place] [address] PT Coag (PPP) [Time] 11.0 s Normal 9.8-12.8 [facility] Comment on above: Order Comment: The A PTT is no longer used for monitoring Unfractionated Heparin Therapy. For monitoring Heparin Therapy, use the Heparin Assay. Performed By: #### 3 4529-8 #### MADELEINE ROSE ([id number]) [facility] ([facility]) [address] [place] [address] aPTT Coag (PPP) [Time] 29 s [facility] INR Coag (PPP) [Relative time] 1.0 {INR} 0.9 - 1.1 [facility] Interpretation and review of laboratory results Normal [facility] PT Coag (PPP) [Time] 11.0 s [facility] The APTT is no longe r used for monitoring Unfractionated Heparin Therapy. For monitoring Heparin Therapy, use the Heparin Assay. [facility] Phosphateon 03-14-2023 Phosphate [Mass/Vol] 3.1 mg/dL Normal 2.5-4.9 [facility] Comment on above: Result Comment: The performance characteristics of phosphorus testing in heparinized plasma have been validated by the individual laboratory site where testing is performed. Testing on heparinized plasma is not approved by the FDA; however, such approval is not necessary. Performed By: #### 2 777-1 #### MADELEINE ROSE ([id number]) [facility] ([facility]) [address] [place] [id number] Phosphoruson 03-14-2023 Phosphate [Mass/Vol] 3.1 mg/dL 2.5 - 4.9 mg/dL [facility] Comment on above: The performance jurgen acteristics of phosphorus testing in heparinized plasma have been validated by the individual laboratory site where testing is performed. Testing on heparinized plasma is not approved by the FDA; however, such approval is not necessary. Staphylococcus aureus.methic illin resistant isolateon 03-14-2023 MRSA isol Org specific cx Ql (Nose) Test: Staphylococcus aureus/MRSA colonization, Culture Specimen Source: Anterior Nares Specimen Type: Swab Specimen Date: 03/14/2023 12:16 PM Result Date: 03/16/2023 8:25 AM Result Status: Final result Abnormal: No Resulting Lab: [facility] [address] [place] [address] CULTURE No Staphylococcus aureus isolated Normal [facility] Comment on above: Performed By: #### 5 2969-3 #### JULISSA Jarvis ([id number]) [facility] ([facility]) [address] [place] [address] XR CHEST 2 VIEWSon 3 XR CHEST 2 VIEWS Interpreted By: Zeynep Palafox, STUDY: XR CHEST 2 VIEWS; 03/14/2023 2:09 pm INDICATION: Signs/Symptoms:preop testing. COMPARISON: None. ACCESSION NUMBER(S): [id number] ORDERING CLINICIAN: MIREILLE ZURITA FINDINGS: Heart is normal in size. There is no consolidation or pleural fluid. There is a ventriculoperitoneal shunt. There is a question of an old left humeral fracture. There is what may represent a coil in the right upper quadrant. There are degenerative changes of the spine. The patient is scoliotic. COMPARISON OF FINDING: IMPRESSION: No acute cardiopulmonary disease. MACRO: none Signed by: Zeynep Sen 03/15/2023 12:07 PM Dictation workstation: [id number] [facility] XR Chest 2 Viewson 3 Radiology Study observation (narrative) [facility] Work Phone: Blood Pressure Cuff Sizeon 0 01-20-2023 Adult depression screening assessment No [facility] Work Phone: Fall risk assessment a) No falls within the last year [facility] Work Phone: Tobacco use status CPHS b) No [facility] Work Phone: Blood Pressure Cuff Size Adult [facility] Work Phone: Established Visit (Neurosurg vamsi)on 01-20-2023 Established Visit (Neurosurgery) Diagnoses/Problems Assessed 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 stenosis of cervical region (723.0,336.3) (M48.02,G99.2) Normal pressure hydrocephalus syndrome (331.5) (G91.2) Patient Discussion/Summary The patient who is a 72-year-old female came back in with her friend today to discuss the results of the CAT scan of her cervical spine. Initially I was hoping that we would only have to do 3 or so levels and making 1 possibly an arthroplasty level but however looking at the CAT scan in my hands I can only with a clear conscience recommend 4 level anterior cervical discectomy with interbody fusion and plate fixation at C3-4, C4-5, C5-6, and C6-7. I went over the operation with her in detail. We discussed risks,(these include but are not limited to - bleeding, infection, paralysis, muscle weakness, CSF leak, bowel or bladder dysfunction, incomplete resolution of pain or numbness, DVT/PE, heart attack, stroke, and other unforeseen medical and anesthesia complications) benefits, and outcome possibilities as well as the alternatives to this form of therapy. She understands and would like to proceed. She is a Jew and so we definitely discussed not using blood products. She also has a SECURITY AGENT shunt and and so we are going to make certain that the monitoring team knows where the tubing is so that we do not accidentally stick in electrode into it. She is going to consider her options and tell us when she wants to schedule the surgery. The above clinical summary has been dictated with voice recognition software. It has not been proofread for grammatical errors, typographical mistakes, or other semantic inconsistencies. Thank you for visiting our office today. It was our pleasure to take part in your healthcare. Do not hesitate to call with any questions regarding your plan of care after leaving at M-F 8am-4pm. To clinicians, thank you very much for this kind referral. It is a privilege to partner with you in the care of your patients. My office would be delighted to assist you with any further consultations or with questions regarding the plan of care outlined. Do not hesitate to call the office or contact me directly. Sincerely, Mireille Zurita MD Chief Complaint Patient is being seen for Patient is here for follow-up after completing her cervical CT-scan. and a follow-up Neurosurgical visit. Pt. is experiencing neck and low back pain. Pt. describes her symptoms as aching, and that the symptoms are intermittent. History of Present Illness The patient who is a 72-year-old female came back in with her friend today to discuss the results of the CAT scan of her cervical spine. Initially I was hoping that we would only have to do 3 or so levels and making 1 possibly an arthroplasty level but however looking at the CAT scan in my hands I can only with a clear conscience recommend 4 level anterior cervical discectomy with interbody fusion and plate fixation at C3-4, C4-5, C5-6, and C6-7. I went over the operation with her in detail. We discussed risks,(these include but are not limited to - bleeding, infection, paralysis, muscle weakness, CSF leak, bowel or bladder dysfunction, incomplete resolution of pain or numbness, DVT/PE, heart attack, stroke, and other unforeseen medical and anesthesia complications) benefits, and outcome possibilities as well as the alternatives to this form of therapy. She understands and would like to proceed. She is a Jew and so we definitely discussed not using blood products. She also has a SECURITY AGENT shunt and and so we are going to make certain that the monitoring team knows where the tubing is so that we do not accidentally stick in electrode into it. She is going to consider her options and tell us when she wants to schedule the surgery. Active Problems Problems 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 stenosis of cervical region (723.0,336.3) (M48.02,G99.2) Normal pressure hydrocephalus syndrome (331.5) (G91.2) Allergies Medication No Known Drug Allergies Recorded By: Griselda Clayton; 12/07/2022 11:49:18 AM Current Meds Medication NameInstruction amLODIPine Besylate 5 MG Oral Tablet Aspirin Low Dose 81 MG TABS Atorvastatin Calcium 20 MG Oral Tablet Colesevelam HCl - 625 MG Oral Tablet CoQ-10 CAPS Donepezil HCl - 5 MG Oral Tablet Gabapentin 300 MG TABS hydroCHLOROthiazide 25 MG Oral Tablet Iron (Ferrous Sulfate) 325 (65 Fe) MG Oral Tablet Labetalol HCl - 200 MG Oral Tablet Lansoprazole 30 MG Oral Capsule Delayed Release Losartan Potassium 50 MG Oral Tablet Potassium Chloride 10 MEQ TBCR Venlafaxine HCl - 75 MG Oral Tablet Vitamin D3 25 MCG (1000 UT) Oral Tablet Vitals Vital Signs Recorded: 20Jan2023 02:47PM Upajcuhdobi24.9 F, Temporal Heart Rate69 Uksrybgr238, LUE, Sitting Cdmegnley85, LUE, Sitting Blood Pressure Cuff SizeAdult Height5 ft 3 in Fmyawd840 lb BMI Pissnhgsfs45.29 kg/m2 BSA Calculated1.81 Tobacco Useb) No PHQ (more content not included)... Normal Curiously CT cervical spine wo [facility] 0 01-03-2023 CT cervical spine wo [facility] [place] [address] [place], [place] [id number] CT Scan Report Signed Patient: Mary Goode MR#: [id number] : 1950 Acct:[id number] Age/Sex: 72 / F ADM Date: 01/03/23 Loc: CT Room: Type: [facility] CLI Attending Dr: Mireille Zurita MD Copies to: Mireille Zurita MD Ordering Provider: Mireille Zurita MD Date of Service: 01/03/23 CT/CT cervical spine wo con: M48.02 CT cervical spine wo con 01/03/2023 11:47 AM SIGN AND SYMPTOMS: Numbness down left arm with neck pain TECHNIQUE: Multi detector CT axial slices of the cervical spine were obtained without IV contrast. Volumetric acquisition sagittal, coronal, and 3-D reconstructions were performed and reviewed. CT was performed with one or more of the following dose reduction techniques: Automated exposure control, adjustment of the mA and/or kV according to patient size, or use of iterative reconstruction technique. COMPARISON: None. FINDINGS: There is preservation of the vertebral body heights. There is moderate disc height loss throughout, greatest at C5-C6, C6-C7, and C7-T1. Facet and uncovertebral joint degenerative changes contribute to neural foraminal stenosis which is greatest at C3-C4 and C4-C5. No fractures or dislocations are seen. The alignment of the cervical spine is normal. The craniocervical junction and atlantoaxial joint are within normal limits. The prevertebral soft tissues are within normal limits. The paraspinous soft tissues are within normal limits. The lung apices are unremarkable. Degenerative changes are noted in the temporomandibular joints. There is a ventricular shunt extending along the soft tissues of the neck on the right. CT/CT cervical spine wo con IMPRESSION: No fracture or subluxation. Disc, facet, and uncovertebral joint degenerative changes contributing to neural foraminal stenosis which is greatest at C3-C4 and C4-C5. Impression dictated by: Lona Rosas M.D.01/03/2023 4:01 PM Dictation Location: [place] [address] Transcribed By: [facility] 01/03/23 1601 Dictated By: Lnoa Rosas II, MD 01/03/23 1557 Signed By: 01/03/23 1601 [facility] Initial Visit (Neurosurgery) on 12-07-2022 Initial Visit (Neurosurgery) Diagnoses/Problems Normal pressure hydrocephalus syndrome (331.5) (G91.2) 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 stenosis of cervical region (723.0,336.3) (M48.02,G99.2) Orders 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 stenosis of cervical region CT C Spine without Contrast; Status:Hold For - Scheduling; Requested for:[id number]; Patient taking Metformin or Derivatives? : No Radiologist to Determine Optimal Study : Y What are the patient's signs and symptoms? : Neck pain, loss of fine motor coordination, and early balance difficulty Patient Discussion/Summary The patient who is a 72-year-old female came in today with a friend to discuss cervical pain and back of head pain that she has been experiencing. 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 At 1 point she did have pain and tingling into both arms. Currently the pain is in her neck and back of head but for the last 6 weeks she has also had left shoulder pain. The patient feels like her balance has not deteriorated. This is based on the fact that she has normal pressure hydrocephalus and many years back she had a SECURITY AGENT shunt placed and she got pretty good symptomatic relief. It certainly seems to have helped with her gait and her memory but she says she still has some urinary incontinence issues. She is not having trouble tying shoelaces but buttons seem to be a problem for her. She also has lumbar problems and that is something that her other doctors are working up. She came today with an MRI of the cervical spine which shows that she has significant stenosis at C3-4, she has foraminal stenosis that is severe on the left side at C4-5, she has a central disc protrusion at C5-6 that is distorting the contours of the cord at that level. She is going to need a CAT scan to determine how much of these changes are calcified. I gave her a primer today on fusions and artificial disks. We talked about the fact that she is Jew and what that would mean regarding surgery. I also suggested that she start considering getting second opinions. I am going to see her back after the CAT scan of her cervical spine is done and we will talk about which operation to the cervical spine we would be recommending. The above clinical summary has been dictated with voice recognition software. It has not been proofread for grammatical errors, typographical mistakes, or other semantic inconsistencies. Thank you for visiting our office today. It was our pleasure to take part in your healthcare. Do not hesitate to call with any questions regarding your plan of care after leaving at M-F 8am-4pm. To clinicians, thank you very much for this kind referral. It is a privilege to partner with you in the care of your patients. My office would be delighted to assist you with any further consultations or with questions regarding the plan of care outlined. Do not hesitate to call the office or contact me directly. Sincerely, Mireille Zurita MD Chief Complaint Patient is being seen for an initial Neurosurgical evaluation and Patient is referred by Dr. Adan Gonzalez for a 2nd opinion on her cervical spine. Pt. is experiencing low back and neck pain. Pt. describes her symptoms as aching with tingling in the left shoulder area, and that the symptoms are constant. History of Present Illness The patient who is a 72-year-old female came in today with a friend to discuss cervical pain and back of head pain that she has been experiencing. 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 At 1 point she did have pain and tingling into both arms. Currently the pain is in her neck and back of head but for the last 6 weeks she has also had left shoulder pain. The patient feels like her balance has not deteriorated. This is based on the fact that she has normal pressure hydrocephalus and many years back she had a SECURITY AGENT shunt placed and she got pretty good symptomatic relief. It certainly seems to have helped with her gait and her memory but she says she still has some urinary incontinence issues. She is not having trouble tying shoelaces but buttons seem to be a problem for her. She also has lumbar problems and that is something that her other doctors are working up. She came today with an MRI of the cervical spine which shows that she has significant stenosis at C3-4, she has foraminal stenosis that is severe on the left side at C4-5, she has a central disc protrusion at C5-6 that is distorting the contours of the cord at that level. She is going to need a CAT scan to determine how much of these changes are calcified. I gave her a primer today on fusions and artificial disks. We talked about the fact that she is Jew and what that would mean regarding surgery. I also suggested that she start considering getting second opinions. I am goi (more content not included)... Normal [facility] Tobacco Screening.on 023 Adult depression screening assessment Yes [facility] Work Phone: Adult depression screening assessment No [facility] Work Phone: Adult depression screening assessment Mild (5-9) [facility] Work Phone: Fall risk assessment b) One or more falls in the last year [facility] Work Phone: Tobacco use status CPHS b) No [facility] Work Phone: Tobacco Screening. 0-Not at all [facility] Work Phone: Tobacco Screening. 1-Several days [facility] Work Phone: Tobacco Screening. 2-More than half the days [facility] Work Phone: MR knee RT wo conon 08-04-19 MR knee RT wo con [facility] [place] [address] MRI Report Signed Patient: Mary Goode MR#: [id number] : 1950 Acct:[id number] Age/Sex: 71 / F ADM Date: 08/03/22 Loc: [facility] Room: Type: [facility] Attending Dr: Imer Purcell MD Copies to: Imer Purcell MD Ordering Provider: Imer Purcell MD Date of Service: 08/03/22 MR/MR knee RT wo con: RIGHT KNEE PAIN MR knee RT wo con 08/03/2022 10:18 AM SIGNS AND SYMPTOMS: Lateral posterior right knee pain and swelling for years. No known injury. PROTOCOL: Multisequence, multiplanar imaging of the right knee was obtained. COMPARISON: Right knee series performed today. FINDINGS: Fluid: Moderate joint effusion. Medial compartment: Medial meniscus: Normal.. Medial collateral ligament: Normal. Medial femoral condyle cartilage: Normal. Lateral compartment: Lateral meniscus: There appears to be loss of the mid aspect of the lateral meniscus. Lateral collateral ligament: Loose body or large osteophyte is seen displacing the LCL complex. No abnormal signal is seen within the LCL complex.. Lateral femoral condyle cartilage: Normal. Lateral tibial plateau cartilage: Normal. Anterior compartment: Alignment: Normal. Quadriceps tendon: Normal. Patellar tendon: The patellar tendon and retinaculum appear intact.. Patellar cartilage: Heterogenous and appears thin suggestive of chondromalacia. Intercondylar compartment: Anterior cruciate ligament: . Mucoid degeneration. Posterior cruciate ligament: Intact. Bones (other than subarticular marrow): No bone marrow edema. Cystic changes seen involving the femoral condyles and tibial plateau. Muscles: Small cyst involving the lateral head of the gastrocnemius muscle. Mild soft tissue swelling. MR/MR knee RT wo con IMPRESSION: 1. Loss of the mid aspect of the lateral meniscus. Finding may be postoperative in nature. 2. Mucoid degeneration of the ACL. 3. Loose body or large osteophyte is seen displacing the LCL complex. 4. Moderate knee joint effusion. 5. Chondromalacia involving the patellar cartilage. Impression dictated by: Olayinka Enamorado Jr., D.OKiersten08/03/2022 2:05 PM Dictation Location: [place] [address] Transcribed By: [facility] 08/03/22 1405 Dictated By: Olayinka Enamorado Jr, DO 08/03/22 1352 Signed By: 08/03/22 [address] [facility] XR pre/post mri xrayon 08-03 XR pre/post mri xray [facility] Main [place] [address] [place], [place] [id number] XRay Report Signed Patient: Mary Goode MR#: [id number] : 1950 Acct:[id number] Age/Sex: 71 / F ADM Date: 08/03/22 Loc: [facility] Room: Type: REG CLI Attending Dr: Imer Purcell MD Copies to: Imer Purcell MD Ordering Provider: Imer Purcell MD Date of Service: 08/03/22 XR/XR pre/post mri xray: RIGHT KNEE AND SKULL PRE'S 2 views right knee, 2 views skull. Reason for exam: SECURITY AGENT shunt. Lateral posterior right knee pain and swelling for years. Comparison: None. FINDINGS: Right knee: Bones are grossly demineralized. No acute bony process is seen. Mild degenerative changes without significant joint space narrowing. Osteophyte versus loose body versus osteochondroma seen projecting over the lateral aspect of the tibial plateau. Skull series: A ventricular portion of the SECURITY AGENT shunt is seen projecting over the right skull. No acute process is seen. XR/XR pre/post mri xray IMPRESSION: Degenerative changes involving the right knee without acute bony process. SECURITY AGENT shunt is seen. No acute process is noted involving the skull. Impression dictated by: Olayinka Enamorado Jr., DKierstenOKiersten08/03/2022 2:08 PM Dictation Location: [place] [address] Transcribed By: [facility] 08/03/22 1408 Dictated By: Olayinka Enamorado Jr, DO 08/03/22 1405 Signed By: 08/03/22 1408 [facility] MM screening mammo BI w/CADo n 07-30-2022 MM screening mammo BI w/CAD [facility] [place] [address] Mammography Report Signed Patient: Mary Goode MR#: [id number] : 1950 Acct:[id number] Age/Sex: 71 / F ADM Date: 07/30/22 Loc: [place] Room: Type: REG CLI Attending Dr: Imer Purcell MD Copies to: Imer Purcell MD Ordering Provider: Imer Purcell MD Date of Service: 07/30/22 MM/MM screening mammo BI w/CAD: SCREENING CLINICAL DATA: Screening for malignancy. BILATERAL SCREENING MAMMOGRAMS - FULL FIELD DIGITAL WITH TOMOSYNTHESIS AND CAD Tomosynthesis craniocaudal and mediolateral oblique views of both breasts were obtained using low- dose digital technique. Comparison is made to prior studies from January 01, 2019 (right) through August 12, 2020. This examination was reviewed with the aid of CAD. There are moderate scattered fibroglandular densities. The biopsy marking clip is seen at the central posterior right breast. Benign and vascular calcifications are visualized. There are no developing masses, typically malignant calcifications or architectural distortion. There has been no significant interval change. MM/MM screening mammo BI w/CAD IMPRESSION: NO MAMMOGRAPHIC EVIDENCE OF MALIGNANCY. ROUTINE FOLLOW-UP IS RECOMMENDED IN ONE YEAR. RESULT CODE: 2 Benign Findings(s) DENSITY CODE: 2 (approximately 25-50% glandular) FOLLOW UP: 1YR The false-negative rate of mammography is approximately 10-percent. Management of a palpable abnormality must be based on clinical grounds. Patient was entered into a reminder system with a target due date for the next mammogram. Impression dictated by: Kelly York M.D.07/30/2022 1:58 PM Dictation Location: [facility] Transcribed By: JACKIE 07/30/22 1358 Dictated By: Kelly York MD 07/30/22 1348 Signed By: 07/30/22 1358 [facility] Covid-19 PCR (CVDTBH)on 07-08 SARS-CoV-2 (COVID-19) RNA CONRDAO+probe Ql (Unsp spec) Not detected Normal NOT DETECTED [facility] [place] [facility] Comment on above: Result Comment: This test is not yet approved or cleared by the [place] FDA. When there are no FDA-approved or cleared tests available, and other criteria are met, FDA can make tests available under an emergency access mechanism called an Emergency Use Authorization (EUA). The EUA for this test is supported by the [place] of Health and Human Service's (HHS's) declaration that circumstances exist to justify the emergency use of in vitro diagnostics for the detection and/or diagnosis of the virus that causes COVID-19. This EUA will remain in effect (meaning this test can be used) for the duration of the COVID-19 declaration justifying emergency of IVDs, unless it is terminated or revoked by FDA (after which the test may no longer be used). When diagnostic testing is negative, the possibility of a false negative should be considered in the context of a patient's recent exposures and the presence of clinical signs and symptoms consistent with SARS-CoV-2. Performed By: #### O BSCRN #### [facility] [place] [facility] [address] [place] [address] Dr. Shobha Ruffin XR pre/post mri xrayon 07-23 XR pre/post mri xray [facility] Main [place] [id number] XRay Report Signed Patient: Mary Goode MR#: [id number] : 1950 Acct:[id number] Age/Sex: 71 / F ADM Date: 07/22/22 Loc: [facility] Room: Type: [facility] Attending Dr: Marika Friedman PA-C Copies to: Marika Friedman PA-C Ordering Provider: Marika Friedman PA-C Date of Service: 07/22/22 XR/XR pre/post mri xray: SEE ORDER XR pre/post mri xray 07/22/2022 9:01 AM SIGNS AND SYMPTOMS: Ventricular shunt, pre and post MRI PROTOCOL: Radiographs of the calvarium COMPARISON: 03/22/2022 FINDINGS: There is a Codman Hakim programmable shunt. The opening pressure is set at approximately 130 mm H2O. This is unchanged after MR imaging. XR/XR pre/post mri xray IMPRESSION: There is a Codman Hakim programmable shunt. The opening pressure is set at approximately 130 mm H2O. This is unchanged after MR imaging. Impression dictated by: Lona Rosas M.D.07/23/2022 9:35 AM Dictation Location: [place] [address] Transcribed By: [facility] 07/23/2235 Dictated By: Lona Rosas II, MD 07/23/2233 Signed By: 07/23/2235 [facility] MR head/brain wo conon 07-22 MR head/brain wo con [facility] Main [address] [address] MRI Report Signed Patient: Mary Goode MR#: [id number] : 1950 Acct:[id number] Age/Sex: 71 / F ADM Date: 07/22/22 Loc: [facility] Room: Type: [facility] Attending Dr: Marika Friedman PA-C Copies to: Marika Friedman PA-C Ordering Provider: Marika Friedman PA-C Date of Service: 07/22/22 MR/MR head/brain wo con: R41.89,G91.2 MR head/brain wo con 07/22/2022 8:48 AM SIGN AND SYMPTOMS: Memory impairment, headaches, 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 Hemorrhage: None. Ventricular system: There is a right frontal approach ventricular shunt with the tip along the septum pellucidum within the left lateral ventricle. There is gliosis and encephalomalacia is noted along the shunt tract. Basal cisterns: Within normal limits and not effaced. Cerebral parenchyma: There is periventricular and subcortical white matter T2 and hyperintense signal consistent with mild chronic microvascular ischemic change. Midline shift: None.. Cerebellum: Within normal limits. Brainstem: Within normal limits. OTHER: Calvarium: Normal marrow signal. Vascular system: Satisfactory flow voids within the anterior and posterior circulation. Visualized Paranasal sinuses: Within normal limits. Visualized Orbits: Within normal limits. Visualized upper cervical spine: Within normal limits. Sella and skull base: Within normal limits. MR/MR head/brain wo con IMPRESSION: There is a right frontal approach ventricular shunt with the tip along the septum pellucidum within the left lateral ventricle. There is gliosis and encephalomalacia is noted along the shunt tract. The ventricles are unchanged in size. Chronic age-related degenerative changes are noted, as above. Impression dictated by: Lona Rosas M.D.07/22/2022 1:55 PM Dictation Location: [place] [address] Transcribed By: JACKIE 07/22/22 6180 Dictated By: Lona Rosas II, MD 07/22/22 6894 Signed By: 07/22/22 1357 [facility] TSHon 07-21-2022 TSH 0.487 uIU/mL Normal 0.358-3.74 0 [facility] [place] [facility] Comment on above: Performed By: #### O BSCRN #### [facility] [place] [facility] [address] [place], [place] [address] Dr. Shobha Ruffin VITAMIN B12on 07-21-2022 Cobalamin (Vitamin B12) [Mass/Vol] 554.0 pg/mL Normal 193.0-986. 0 [facility] Comment on above: Performed By: #### R ENAL, URIC, MG #### [facility] [place] [facility] [address] [place], [place] [address] Dr. Shobha Ruffin FL upper GI w air*on 023 FL upper GI w air* [facility] [place] [address] [place] [address] Fluoroscopy Report Signed Patient: Mary Goode MR#: [id number] : 1950 Acct:[id number] Age/Sex: 71 / F ADM Date: 06/08/22 Loc: XD Room: Type: [facility] Attending Dr: Freda CHAPMAN Copies to: ARI Turcios Ordering Provider: ARI Turcios Date of Service: 06/08/22 FL/FL upper GI w air*: Z98.890 UPPER GI SERIES HISTORY: Chest tightness. History of esophageal hernia repair. Cumulative Air Kerma in mGy: 123.43 mGy. 39 images. FINDINGS: The valleculae and perform sinuses are symmetrical. The esophagus has normal course and caliber without fixed intraluminal filling defect or mucosal identified. No hiatal hernia seen. Minimal reflux of contrast into the esophagus. No aspiration of contrast seen. No gastric mass or ulceration. The duodenal bulb and sweep are unremarkable. No significant stasis of esophageal contrast. No esophageal dysmotility identified. Ventriculoperitoneal shunt present. Embolization coils identified in the RIGHT upper quadrant. FL/FL upper GI w air* IMPRESSION: Minimal gastroesophageal reflux. No esophagitis. No mass or ulceration stomach or duodenum. Impression dictated by: Adan Chen M.D.06/08/2022 10:46 AM Dictation Location: [place] [address] Transcribed By: [facility] 06/08/22 1046 Dictated By: Adan Chen DO 06/08/22 1042 Signed By: 06/08/22 1046 [facility] PTH INTACTon 05-18-2022 PTH, Intact 29 pg/mL Normal 15-65 [facility] Comment on above: Performed By: #### R ENAL, URIC, MG #### [facility] [place] [facility] [address] [place] [address] Dr. Shobha Ruffin FERRITINon 05-17-2022 Ferritin [Mass/Vol] 55.0 ng/mL Normal 8.0-252.0 [facility] Comment on above: Performed By: #### R ENAL, URIC, MG #### [facility] [place] [facility] [address] [place] [address] Dr. Shobha Ruffin HEMOGRAM AND PLATELon 2022 Hematocrit (Bld) [Volume fraction] 35.6 % Critically low 36.0-48.0 [facility] Comment on above: Performed By: #### R ENAL, URIC, MG #### [facility] [place] [facility] [address] [place] [address] Dr. Shobha Ruffin Hemoglobin (Bld) [Mass/Vol] 12.3 g/dL Normal 12.0-16.0 [facility] Comment on above: Performed By: #### R ENAL, URIC, MG #### [facility] [place] [facility] [address] [place] [address] Dr. Shobha Ruffin MCH (RBC) [Entitic mass] 29.6 pg Normal 26.7-34.0 [facility] Comment on above: Performed By: #### R ENAL, URIC, MG #### [facility] [place] [facility] [address] [place] [address] Dr. Shobha Ruffin MCHC (RBC) [Mass/Vol] 34.6 g/dL Normal 29.9-35.2 [facility] Comment on above: Performed By: #### R ENAL, URIC, MG #### [facility] [place] [facility] [address] [place] [address] Dr. Shobha Ruffin MCV (RBC) [Entitic vol] 85.8 fL Normal 81.0-99.0 [facility] Comment on above: Performed By: #### R ENAL, URIC, MG #### [facility] [place] [facility] [address] [place] [address] Dr. Shobha Ruffin PLT 338 103/ul Normal 150-450 [facility] Comment on above: Performed By: #### R ENAL, URIC, MG #### [facility] [place] [facility] [address] [place] [address] Dr. Shobha Ruffin RBC 4.15 106/ul Critically low 4.20-5.40 [facility] Comment on above: Performed By: #### R ENAL, URIC, MG #### [facility] [place] [facility] [address] [place] [address] Dr. Shobha Ruffin WBC 7.0 103/ul Normal 4.0-11.0 [facility] Comment on above: Performed By: #### R ENAL, URIC, MG #### [facility] [place] [facility] [address] [place] [address] Dr. Shobha Ruffin IRON AND TIBCon 05-17-2022 % SATURATION 29.6 % Normal [facility] [place] [facility] Comment on above: Performed By: #### R ENAL, URIC, MG #### [facility] [place] [facility] [address] [place] [address] Dr. Shobha Ruffin Iron [Mass/Vol] 89.0 ug/dL Normal 50.0-170.0 [facility] Comment on above: Performed By: #### R ENAL, URIC, MG #### [facility] [place] [facility] [address] [place] [address] Dr. Shobha Ruffin TIBC DIRECT 301.0 ug/dL Normal 250.0-450. 0 [facility] [place] [facility] Comment on above: Performed By: #### R ENAL, URIC, MG #### [facility] [place] [facility] [address] [place] [address] Dr. Shobha Ruffin MAGNESIUMon 05-17-2022 Magnesium [Mass/Vol] 2.2 mg/dL Normal 1.8-2.4 [facility] [place] [facility] Comment on above: Performed By: #### R ENAL, URIC, MG #### [facility] [place] [facility] [address] [place] [address] Dr. Shobha Ruffin RENAL FUNCTION PANELon 05-17 Albumin [Mass/Vol] 3.7 g/dL Normal 3.4-5.0 [facility] Comment on above: Performed By: #### R ENAL, URIC, MG #### [facility] [place] [facility] [address] [place] [address] Dr. Shobha Ruffin Calcium [Mass/Vol] 9.1 mg/dL Normal 8.5-10.1 [facility] [place] [facility] Comment on above: Performed By: #### R ENAL, URIC, MG #### [facility] [place] [facility] [address] [place] [address] Dr. Shobha Ruffin Chloride [Moles/Vol] 100 mmol/L Normal 98-107 [facility] Comment on above: Performed By: #### R ENAL, URIC, MG #### [facility] [place] [facility] [address] [place] [address] Dr. Shobha Ruffin CO2 [Moles/Vol] 31.0 mmol/L Normal 21.0-32.0 [facility] Comment on above: Performed By: #### R ENAL, URIC, MG #### [facility] [place] [facility] [address] [place] [address] Dr. Shobha Ruffin Creatinine [Mass/Vol] 0.92 mg/dL Normal 0.55-1.02 [facility] Comment on above: Performed By: #### R ENAL, URIC, MG #### [facility] [place] [facility] [address] [place] [address] Dr. Shobha Ruffin EGFR-AF NIGERIEN >60 Normal >=60 [facility] [place] [facility] Comment on above: Performed By: #### R ENAL, URIC, MG #### [facility] [place] [facility] [address] [place] [address] Dr. Shobha Ruffin EGFR-NON AF NIGERIEN >60 Normal >=60 [facility] [place] [facility] Comment on above: Performed By: #### R ENAL, URIC, MG #### [facility] [place] [facility] [address] [place] [address] Dr. Shobha Ruffin Glucose [Mass/Vol] 93 mg/dL Normal 74-106 [facility] [place] [facility] Comment on above: Performed By: #### R ENAL, URIC, MG #### [facility] [place] [facility] [address] [place] [address] Dr. Shobha Ruffin Phosphate [Mass/Vol] 3.7 mg/dL Normal 2.6-4.7 [facility] Comment on above: Performed By: #### R ENAL, URIC, MG #### [facility] [address] [place] [address] Dr. Shobha Ruffin Potassium [Moles/Vol] 3.9 mmol/L Normal 3.5-5.1 [facility] Comment on above: Performed By: #### R ENAL, URIC, MG #### [facility] [address] [place] [address] Dr. Shobha Ruffin Sodium [Moles/Vol] 138 mmol/L Normal 136-145 [facility] Comment on above: Performed By: #### R ENAL, URIC, MG #### [facility] [address] [place] [address] Dr. Shobha Ruffin Urea nitrogen [Mass/Vol] 19.0 mg/dL Critically high 7.0-18.0 [facility] Comment on above: Performed By: #### R ENAL, URIC, MG #### [facility] [address] [place] [address] Dr. Shobha Ruffin UA RANDOM W/MICROSCOPICon BACTERIA NONE SEEN Normal NONE SEEN [facility] Comment on above: Performed By: #### U AMIC #### [facility] [address] [place] [address] Dr. Shobha Ruffin Bilirubin Ql (U) Negative Normal NEGATIVE [facility] Comment on above: Performed By: #### U AMIC #### [facility] [address] [place] [address] Dr. Shobha Ruffin CAST NONE SEEN Normal NONE SEEN [facility] Comment on above: Performed By: #### U AMIC #### [facility] [address] [place] [address] Dr. Shobha Ruffin Clarity (U) SL CLOUDY Abnormal CLEAR [facility] Comment on above: Performed By: #### U AMIC #### [facility] [address] [place] [address] Dr. Shobha Ruffin Color (U) LT. YELLOW Normal YELLOW [facility] Comment on above: Performed By: #### U AMIC #### [facility] [address] [place] [address] Dr. Shobha Ruffin Crystals LM Nom (Urine sed) NONE SEEN Normal NONE SEEN [facility] Comment on above: Performed By: #### U AMIC #### [facility] [address] [place] [address] Dr. Shobha Ruffin Epithelial cells LM Ql (Urine sed) MODERATE Abnormal NONE SEEN /RARE [facility] Comment on above: Performed By: #### U AMIC #### [facility] [address] [place] [address] Dr. Shobha Ruffin Glucose Ql (U) Negative Normal NEGATIVE [facility] Comment on above: Performed By: #### U AMIC #### [facility] [address] [place] [address] Dr. Shobha Ruffin Hemoglobin Ql (U) Negative Normal NEGATIVE [facility] Comment on above: Performed By: #### U AMIC #### [facility] [address] [place] [address] Dr. Shobha Ruffin Ketones Ql (U) Negative Normal NEGATIVE [facility] Comment on above: Performed By: #### U AMIC #### [facility] [address] [place] [address] Dr. Shobha Ruffin LEUKOCYTES TRACE Abnormal NEGATIVE [facility] Comment on above: Performed By: #### U AMIC #### [facility] [address] [place] [address] Dr. Shobha Ruffin MUCOUS NONE SEEN Normal NONE SEEN [facility] Comment on above: Performed By: #### U AMIC #### [facility] [address] [place] [address] Dr. Shobha Ruffin Nitrite Ql (U) Negative Normal NEGATIVE [facility] Comment on above: Performed By: #### U AMIC #### [facility] [address] [place] [address] Dr. Shobha Ruffin pH (U) 7.5 [pH] Normal 5-9 [facility] Comment on above: Performed By: #### U AMIC #### [facility] [address] [place] [address] Dr. Shobha Ruffin RBC NONE SEEN Abnormal 0-2 [facility] Comment on above: Performed By: #### U AMIC #### [facility] [address] [place] [address] Dr. Shobha Ruffin SPEC GRAVITY 1.015 Normal 1.005-<=1. 025 [facility] Comment on above: Performed By: #### U AMIC #### [facility] [address] [place] [address] Dr. Shobha Ruffin UA PROTEIN Negative Normal NEGATIVE/ TRACE [facility] Comment on above: Performed By: #### U AMIC #### [facility] [address] [place] [address] Dr. Shobha Ruffin Urobilinogen Qn (U) 0.2 {Raul'U}/dL Normal 0.2 - 1.0 [facility] Comment on above: Performed By: #### U AMIC #### [facility] [address] [place] [address] Dr. Shobha Ruffin WBC 0-2 Abnormal NONE SEEN [facility] Comment on above: Performed By: #### U AMIC #### [facility] [address] [place] [address] Dr. Shobha Ruffin URINE T PROTEIN CREAT RATIOo n 05-17-2022 Protein (U) [Mass/Vol] 20.5 mg/dL Critically high <=12.0 [facility] Comment on above: Performed By: #### O BSCRN #### [facility] [address] [place] [address] Dr. Shobha Ruffin UR PROT CREAT RAT 0.21 Normal [facility] Comment on above: Performed By: #### O BSCRN #### [facility] [address] [place] [address] Dr. Shobha Ruffin URINE CREAT 98.95 mg/dL Normal 20.00-300. 00 [facility] Comment on above: Performed By: #### O BSCRN #### [facility] [address] [place] [address] Dr. Shobha Ruffin VITAMIN D 25 OHon 05-17-2022 VIT D 25-OH 29.5 ng/mL Normal [facility] Comment on above: Performed By: #### R ENAL URIC, MG #### [facility] [address] [place] [address] Dr. Shobha Ruffin VIT D RANGES SEE BELOW Normal [facility] Comment on above: Result Comment: <20 ng/mL Vit D deficient 20 - <30 ng/mL Vit D insufficient 30 - 100 ng/mL Vit D sufficient >100 ng/mL Potential Toxicity Performed By: #### R ENAL, URIC, MG #### [facility] [address] [place] [address] Dr. Shobha Ruffin CBC AUTO DIFFon 05-04-2022 BASO # 0.1 103/ul Normal 0.0-0.1 [facility] Comment on above: Performed By: #### O BSCRN #### [facility] [address] [place] [address] Dr. Shobha Ruffin Basophils/100 WBC (Bld) 1.0 % Normal 0.2-2.0 [facility] Comment on above: Performed By: #### O BSCRN #### [facility] [address] [place] [address] Dr. Shobha Ruffin EO # 0.2 103/ul Normal 0.0-0.7 [facility] Comment on above: Performed By: #### O BSCRN #### [facility] [address] [place] [address] Dr. Shobha Ruffin Eosinophils/100 WBC (Bld) 2.5 % Normal 0.9-7.0 [facility] Comment on above: Performed By: #### O BSCRN #### [facility] [address] [place] [address] Dr. Shobha Ruffin Erythrocyte distribution width (RBC) [Ratio] 13.3 % Normal 11.0-15.0 [facility] Comment on above: Performed By: #### O BSCRN #### [facility] [address] [place] [address] Dr. Shobha Ruffin Hematocrit (Bld) [Volume fraction] 39.7 % Normal 36.0-48.0 [facility] Comment on above: Performed By: #### O BSCRN #### [facility] [address] [place] [address] Dr. Shobha Ruffin Hemoglobin (Bld) [Mass/Vol] 12.9 g/dL Normal 12.0-16.0 [facility] Comment on above: Performed By: #### O BSCRN #### [facility] [address] [place] [address] Dr. Shobha Ruffin IG # 0.02 10e3/ul Normal 0.00-0.03 [facility] Comment on above: Performed By: #### O BSCRN #### [facility] [address] [place] [address] Dr. Shobha Ruffin IG % 0.3 % Normal 0.0-0.5 [facility] Comment on above: Performed By: #### O BSCRN #### [facility] [address] [place] [address] Dr. Shobha Ruffin LYMPH # 1.7 103/ul Normal 1.2-3.8 [facility] Comment on above: Performed By: #### O BSCRN #### [facility] [address] [place] [address] Dr. Shobha Ruffin Lymphocytes/100 WBC (Bld) 22.2 % Normal 20.5-60.0 [facility] Comment on above: Performed By: #### O BSCRN #### [facility] [address] [place] [address] Dr. Shobha Ruffin MANUAL DIFF REQ NO Normal [facility] Comment on above: Performed By: #### O BSCRN #### [facility] [address] [place] [address] Dr. Shobha Ruffin MCH (RBC) [Entitic mass] 29.3 pg Normal 26.7-34.0 [facility] Comment on above: Performed By: #### O BSCRN #### [facility] [address] [place] [address] [address] Shobha Ruffin MCHC (RBC) [Mass/Vol] 32.5 g/dL Normal 29.9-35.2 [facility] Comment on above: Performed By: #### O BSCRN #### [facility] [address] [place] [address] Dr. Shobha Ruffin MCV (RBC) [Entitic vol] 90.2 fL Normal 81.0-99.0 [facility] Comment on above: Performed By: #### O BSCRN #### [facility] [address] [place] [address] Dr. Shobha Ruffin MONO # 0.8 103/ul Normal 0.3-0.8 [facility] Comment on above: Performed By: #### O BSCRN #### [facility] [address] [place] [address] Dr. Shobha Ruffin Monocytes/100 WBC (Bld) 10.5 % Normal 1.7-12.0 [facility] Comment on above: Performed By: #### O BSCRN #### [facility] [address] [place] [address] Dr. Shobha Ruffin NEUT # 4.9 103/ul Normal 1.4-6.5 [facility] Comment on above: Performed By: #### O BSCRN #### [facility] [address] [place] [address] Dr. Shobha Ruffin Neutrophils/100 WBC (Bld) 63.5 % Normal 43.0-75.0 [facility] Comment on above: Performed By: #### O BSCRN #### [facility] [address] [place] [address] Dr. Shobha Ruffin Platelet mean volume (Bld) [Entitic vol] 8.8 fL Critically low 9.5-13.5 [facility] Comment on above: Performed By: #### O BSCRN #### [facility] [address] [place] [address] Dr. Shobha Ruffin PLT 307 103/ul Normal 150-450 [facility] Comment on above: Performed By: #### O BSCRN #### [facility] [address] [place] [address] [address] Shobha Ruffin RBC 4.40 106/ul Normal 4.20-5.40 [facility] Comment on above: Performed By: #### O BSCRN #### [facility] [address] [place] [address] [address] Shobha Ruffin WBC 7.8 103/ul Normal 4.0-11.0 [facility] Comment on above: Performed By: #### O BSCRN #### [facility] [address] [place] [address] [address] Shobha Ruffin LIPID PROFILEon 05-04-2022 CHOL-HDL RATIO NORM SEE BELOW Normal [facility] Comment on above: Result Comment: 3.3 - 4.4 LOW RISK 4.4 - 7.1 AVERAGE RISK 7.1 - 11.0 MODERATE RISK >11.0 HIGH RISK Performed By: #### L IPID, LIVER #### [facility] [address] [place] [address] Dr. Shobha Ruffin Cholesterol [Mass/Vol] 296 mg/dL Critically high <=200 [facility] Comment on above: Performed By: #### L IPID, LIVER #### [facility] [address] [place] [address] Dr. Shobha Ruffin Cholesterol in HDL [Mass/Vol] 102 mg/dL Critically high 40-60 [facility] Comment on above: Performed By: #### L IPID, LIVER #### [facility] [address] [place] [address] [address] Shobha Ruffin Cholesterol in LDL [Mass/Vol] 178.6 mg/dL Normal [facility] Comment on above: Performed By: #### L IPID, LIVER #### [facility] [address] [place] [address] [address] Shobha Ruffin Cholesterol.total /Cholesterol in HDL [Mass ratio] 2.9 {ratio} Normal [facility] Comment on above: Performed By: #### L IPID, LIVER #### [facility] [address] [place] [address] [address] Shobha Ruffin HDL NORMAL > or = 60 mg/dl - LO W CARDIOVASCULAR RISK <40 mg/dl - HIGH CARDIOVASCULAR RISK Normal [facility] Comment on above: Performed By: #### L IPID, LIVER #### [facility] [address] [place] [address] Dr. Shobha Ruffin LDL CALC NORMAL SEE BELOW Normal [facility] Comment on above: Result Comment: <100 mg/dl OPTIMAL 100 - 129 mg/dl NEAR OR ABOVE OPTIMAL 130 - 159 mg/dl BORDERLINE HIGH 160 - 189 mg/dl HIGH >190 mg/dl VERY HIGH Performed By: #### L IPID, LIVER #### [facility] [address] [place] [address] Dr. Shobha Ruffin Triglyceride [Mass/Vol] 77 mg/dL Normal <=150 [facility] Comment on above: Performed By: #### L IPID, LIVER #### [facility] [address] [place] [address] Dr. Shobha Ruffin VLDL CALC 15.4 mg/dL Normal [facility] Comment on above: Performed By: #### L IPID, LIVER #### [facility] [address] [place] [address] Dr. Shobha Ruffin LIVER PROFILEon 05-04-2022 Albumin [Mass/Vol] 3.6 g/dL Normal 3.4-5.0 [facility] Comment on above: Performed By: #### L IPID, LIVER #### [facility] [address] [place] [address] Dr. Shobha Ruffin Albumin/Globulin [Mass ratio] 1.0 {ratio} Normal [facility] Comment on above: Performed By: #### L IPID, LIVER #### [facility] [address] [place] [address] Dr. Shobha Ruffin ALP [Catalytic activity/Vol] 58 U/L Normal 46-116 [facility] Comment on above: Performed By: #### L IPID, LIVER #### [facility] [address] [place] [address] Dr. Shobha Ruffin ALT [Catalytic activity/Vol] 20 U/L Normal 14-59 [facility] Comment on above: Performed By: #### L IPID, LIVER #### [facility] [address] [place] [address] [address] Shobha Ruffin AST [Catalytic activity/Vol] 16 U/L Normal 15-37 [facility] Comment on above: Performed By: #### L IPID, LIVER #### [facility] [address] [place] [address] Dr. Shobha Ruffin BILI, CONJUGATED 0.1 mg/dL Normal 0.0-0.2 [facility] Comment on above: Performed By: #### L IPID, LIVER #### [facility] [address] [place] [address] Dr. Shobha Ruffin Bilirubin [Mass/Vol] 0.7 mg/dL Normal 0.2-1.0 [facility] Comment on above: Performed By: #### L IPID, LIVER #### [facility] [address] [place] [address] Dr. Shobha Ruffin Globulin (S) [Mass/Vol] 3.5 g/dL Normal [facility] Comment on above: Performed By: #### L IPID, LIVER #### [facility] [address] [place] [address] Dr. Shobha Ruffin Protein [Mass/Vol] 7.1 g/dL Normal 6.4-8.2 [facility] Comment on above: Performed By: #### L IPID, LIVER #### [facility] [address] [place] [address] Dr. Shobha Ruffin XR pre/post mri xrayon 03-22 XR pre/post mri xray [facility] [place] [address] MRI Report Signed Patient: Mary Goode MR#: [id number] : 1950 Acct:[id number] Age/Sex: 71 / F ADM Date: 03/22/22 Loc: [facility] Room: Type: [facility] CLI Attending Dr: Adan Gonzalez Copies to: Adan Gonzalez Ordering Provider: Adan Gonzalez Date of Service: 03/22/22 MR/MR cervical spine wo con: M54.2 ([id number]) XR/XR pre/post mri xray: NEED PRE/POST SKULL AND CERVICAL PRES MR cervical spine wo con, XR pre/post mri xray 03/22/2022 11:01 AM SIGNS AND SYMPTOMS: History of Codman Hakim programmable shunt. Nonradiating neck pain PROTOCOL: Multiplanar multisequence MR images of the cervical spine were obtained without IV contrast. COMPARISON: MRI cervical spine 01/26/2017 FINDINGS: Radiographs of the calvarium: There is a Codman Hakim programmable shunt. The opening pressure is set at approximately 130 mm H2O. This is unchanged after MR imaging. MRI cervical spine: There is straightening and mild reversal of the normal cervical lordosis. The bones are otherwise in anatomic alignment. There is preservation of vertebral body heights. There is mild intervertebral disc height loss at C4-C5, C5-6, C6-C7, and C7-T1. The marrow signal is within normal limits. The cord is normal in signal. No epidural or paraspinous fluid collection is appreciated. The visualized paraspinous soft tissues are within normal limits. The prevertebral soft tissues are within normal limits. At C2-C3: There is a normal disc, central canal, and neural foramen. At C3-C4: There is a broad-based disc bulge with facet and uncovertebral joint degenerative change contributing to moderate left and mild right neural foraminal narrowing with moderate spinal canal narrowing. This is similar to the prior exam. At C4-C5: There is a broad-based disc bulge with left greater than right facet and into degenerative change contributing to moderate to severe left and mild right neural foraminal narrowing with moderate spinal canal narrowing. This is unchanged. At C5-C6: There is a broad-based disc bulge. There is a focal central disc protrusion. There is moderate narrowing of the spinal canal with mild mass effect on the anterior aspect of the cord centrally. This is similar to the prior exam. There is mild bilateral neural foraminal narrowing. At C6-C7: There is a broad-based disc bulge with uncovertebral joint spurring contributing to mild bilateral neural foraminal narrowing and mild spinal canal narrowing similar to the prior exam. At C7-T1: There is right greater than left uncovertebral joint spurring with facet hypertrophy and a broad-based disc bulge. There is mild spinal canal narrowing with moderate right and mild left neural foraminal narrowing. This is similar to the prior study. MR/MR cervical spine wo con IMPRESSION: Similar degrees of degenerative changes are noted throughout cervical spine with varying degrees of spinal canal or neural foraminal narrowing. Spinal canal stenosis is greatest at C3-C4 and C5-C6 showing no significant interval change. No cord compression or cord signal abnormality. There is similar straightening and mild reversal of the normal cervical lordosis. Pre and post MRI imaging of the Codman Hakim programmable shunt demonstrates an opening pressure set at 130 mm H2O which is unchanged after MR imaging. Impression dictated by: Lona Rosas M.D.03/22/2022 3:03 PM Dictation Location: [place] [address] Transcribed By: [facility] 03/22/22 1503 Dictated By: Lona Rosas II, MD 03/22/22 1451 Signed By: 03/22/22 [address] [facility] XR pre/post mri xrayon 02-10 XR pre/post mri xray [facility] [place] [address] [place] [address] MRI Report Signed Patient: Mary Goode MR#: [id number] : 1950 Acct:[id number] Age/Sex: 71 / F ADM Date: 02/10/22 Loc: [facility] Room: Type: [facility] Attending Dr: Imer Purcell MD Copies to: Imer Purcell MD Ordering Provider: Imer Purcell MD Date of Service: 02/10/22 MR/MR lumbar spine wo con: M54.16 ([id number]) XR/XR pre/post mri xray: M54.16 MR lumbar spine wo con, XR pre/post mri xray 02/10/2022 11:58 AM SIGNS AND SYMPTOMS: Chronic worsening low back pain, bilateral lower extremity radiculopathy, right greater than left PROTOCOL: Multiplanar multisequence MR images of the lumbar spine were obtained without IV contrast. Frontal and lateral radiograph of the lumbar spine were obtained. COMPARISON: MRI 03/13/2020 FINDINGS: Radiograph the lumbar spine: There is a dextro convex curvature of the lumbar spine. The ventricular shunt is present with the tip in the pelvis. Endovascular coils are noted in the right of midline in the epigastric region. There is preservation of vertebral body heights. There is moderate disc height loss throughout without evidence of fracture or subluxation. MRI lumbar spine: Disc height loss and alignment is as noted above. The vertebral body heights are preserved. There is Modic type I endplate edema at L3-L4. The conus terminates at the L1-L2 intervertebral disc le elizabeth. No epidural or paraspinous fluid collection is appreciated. At T12-L1: There is a normal disc, central canal, and neural foramen. At L1-L2: There is a right central disc protrusion contributing to mild spinal canal narrowing. There is mild bilateral neural foraminal stenosis. At L2-L3: There is a broad-based disc bulge with facet hypertrophy. There is mild spinal canal narrowing with moderate left and mild right neural foraminal narrowing. At L3-L4: There is a broad-based disc bulge with facet hypertrophy. There is mild spinal canal stenosis with mild right and moderate to severe left neural foraminal narrowing. There is mass effect on the exiting left L3 nerve roots. Left-sided neural foraminal narrowing is slightly worse. At L4-L5: There is a broad-based disc bulge with facet hypertrophy. There is mild spinal canal narrowing with moderate right and mild left neural foraminal narrowing. At L5-S1: There is a circumferential disc bulge with endplate spur formation right greater than left facet hypertrophy. There is mild spinal canal narrowing with moderate to severe right and mild left neural foraminal narrowing. This mild mass effect on the exiting right L5 nerve roots. This is unchanged. MR/MR lumbar spine wo con IMPRESSION: There is a dextro convex curvature of the lumbar spine. At L3-L4: There is a broad-based disc bulge with facet hypertrophy. There is mild spinal canal stenosis with mild right and moderate to severe left neural foraminal narrowing. There is mass effect on the exiting left L3 nerve roots. Left-sided neural foraminal narrowing is slightly worse. At L5-S1: There is a circumferential disc bulge with endplate spur formation right greater than left facet hypertrophy. There is mild spinal canal narrowing with moderate to severe right and mild left neural foraminal narrowing. This mild mass effect on the exiting right L5 nerve roots. This is unchanged. Impression dictated by: Lona Rosas M.D.02/10/2022 6:13 PM Dictation Location: [facility]07 Transcribed By: JACKIE 02/10/221812 Dictated By: Lona Rosas II, MD 02/10/221806 Signed By: 02/10/221812 [facility] XR skull <4Von 02-10-2022 XR skull <4V [facility] [address] XRay Report Signed Patient: Mary Goode MR#: [id number] : 1950 Acct:[id number] Age/Sex: 71 / F ADM Date: 02/10/22 Loc: [facility] Room: Type: [facility] Attending Dr: Imer Purcell MD Copies to: Imer Purcell MD Ordering Provider: Imer Purcell MD Date of Service: 02/10/22 XR/XR skull <4V: M54.16 XR skull <4V 02/10/2022 11:58 AM SIGNS AND SYMPTOMS: Programmable shunt, pre and post MRI PROTOCOL: Lateral oblique radiographs of the calvarium were obtained. COMPARISON: 04/25/2020 FINDINGS: There is a Codman Hakim programmable shunt valve with the opening pressure set at approximately 120 mm H2O. This is similar to that on the prior exam showing no significant interval change either before or after MR imaging was performed. The shunt tubing is grossly intact. XR/XR skull <4V IMPRESSION: There is a Codman Hakim programmable shunt valve with the opening pressure set at approximately 120 mm H2O. This is similar to that on the prior exam showing no significant interval change either before or after MR imaging was performed. Impression dictated by: Lona Rosas M.D.02/10/2022 6:16 PM Dictation Location: [facility] Transcribed By: JACKIE 02/10/221815 Dictated By: Lona Rosas II, MD 02/10/221812 Signed By: 02/10/221815 [facility] CALCIUMon 02-08-2022 Calcium [Mass/Vol] 9.1 mg/dL Normal 8.5-10.1 [facility] Comment on above: Performed By: #### R ENAL, URIC, MG #### [facility] [address] [address] [address] Shobha Ruffin CREATININEon 02-08-2022 Creatinine [Mass/Vol] 0.95 mg/dL Normal 0.55-1.02 [facility] Comment on above: Performed By: #### O BSCRN #### [facility] [address] [address] [address] Shobha Ruffin EGFR-AF NIGERIEN >60 Normal >=60 [facility] Comment on above: Performed By: #### O BSCRN #### [facility] [address] [place] [address] Dr. hSobha Ruffin EGFR-NON AF NIGERIEN 58 mL/min/1.73m2 Critically low >=60 [facility] Comment on above: Performed By: #### O BSCRN #### [facility] [address] [address] [address] Shobha Ruffin OCC BLD IMMUNO SCREENon 01-08 OCCULT BLOOD Negative Normal NEGATIVE [facility] Comment on above: Performed By: #### O BSCRN #### [facility] [address] [place] [address] Dr. Shobha Ruffin T4, T3U, FTI LABCORPon 01-27 Free Thyroxine Index 2.2 Normal 1.2-4.9 [facility] Comment on above: Performed By: #### R ENAL, URIC, MG #### [facility] [address] [place] [address] Dr. Shobha Ruffin T3 Uptake 27 % Normal 24-39 [facility] Comment on above: Performed By: #### R ENAL, URIC, MG #### [facility] [address] [place] [address] Dr. Shobha Ruffin T4 [Mass/Vol] 8.0 ug/dL Normal 4.5-12.0 [facility] Comment on above: Performed By: #### R ENAL, URIC, MG #### [facility] [address] [place] [address] Dr. Shobha Ruffin CBC AUTO DIFFon 01-26-2022 BASO # 0.1 103/ul Normal 0.0-0.1 [facility] Comment on above: Performed By: #### R ENAL, URIC, MG #### [facility] [address] [place] [address] Dr. Shobha Ruffin Basophils/100 WBC (Bld) 0.9 % Normal 0.2-2.0 [facility] Comment on above: Performed By: #### R ENAL, URIC, MG #### [facility] [address] [place] [address] Dr. Shobha Ruffin EO # 0.3 103/ul Normal 0.0-0.7 [facility] Comment on above: Performed By: #### R ENAL, URIC, MG #### [facility] [address] [place] [address] Dr. Shobha Ruffin Eosinophils/100 WBC (Bld) 2.8 % Normal 0.9-7.0 [facility] Comment on above: Performed By: #### R ENAL, URIC, MG #### [facility] [address] [place] [address] Dr. Shobha Ruffin Erythrocyte distribution width (RBC) [Ratio] 13.6 % Normal 11.0-15.0 [facility] Comment on above: Performed By: #### R ENAL, URIC, MG #### [facility] [address] [place] [address] Dr. Shobha Ruffin Hematocrit (Bld) [Volume fraction] 35.4 % Critically low 36.0-48.0 [facility] Comment on above: Performed By: #### R ENAL, URIC, MG #### [facility] [address] [place] [address] Dr. Shobha Ruffin Hemoglobin (Bld) [Mass/Vol] 11.5 g/dL Critically low 12.0-16.0 [facility] Comment on above: Performed By: #### R ENAL, URIC, MG #### [facility] [address] [place] [address] Dr. Shobha Ruffin IG # 0.04 10e3/ul Critically high 0.00-0.03 [facility] Comment on above: Performed By: #### R ENAL, URIC, MG #### [facility] [address] [place] [address] Dr. Shobha Ruffin IG % 0.4 % Normal 0.0-0.5 [facility] Comment on above: Performed By: #### R ENAL, URIC, MG #### [facility] [address] [place] [address] Dr. Shobha Ruffin LYMPH # 1.9 103/ul Normal 1.2-3.8 [facility] Comment on above: Performed By: #### R ENAL, URIC, MG #### [facility] [address] [place] [address] Dr. Shobha Ruffin Lymphocytes/100 WBC (Bld) 20.9 % Normal 20.5-60.0 [facility] Comment on above: Performed By: #### R ENAL, URIC, MG #### [facility] [address] [place] [address] Dr. Shobha Ruffin MANUAL DIFF REQ NO Normal [facility] Comment on above: Performed By: #### R ENAL, URIC, MG #### [facility] [address] [place] [address] Dr. Shobha Ruffin MCH (RBC) [Entitic mass] 29.4 pg Normal 26.7-34.0 [facility] Comment on above: Performed By: #### R ENAL, URIC, MG #### [facility] [address] [place] [address] Dr. Shobha Ruffin MCHC (RBC) [Mass/Vol] 32.5 g/dL Normal 29.9-35.2 [facility] Comment on above: Performed By: #### R ENAL, URIC, MG #### [facility] [address] [place] [address] Dr. Shobha Ruffin MCV (RBC) [Entitic vol] 90.5 fL Normal 81.0-99.0 [facility] Comment on above: Performed By: #### R ENAL, URIC, MG #### [facility] [address] [place] [address] Dr. Shobha Ruffin MONO # 0.8 103/ul Normal 0.3-0.8 [facility] Comment on above: Performed By: #### R ENAL, URIC, MG #### [facility] [address] [place] [address] Dr. Shobha Ruffin Monocytes/100 WBC (Bld) 9.2 % Normal 1.7-12.0 [facility] Comment on above: Performed By: #### R ENAL, URIC, MG #### [facility] [address] [place] [address] Dr. Shobha Ruffin NEUT # 5.9 103/ul Normal 1.4-6.5 [facility] Comment on above: Performed By: #### R ENAL, URIC, MG #### [facility] [address] [place] [address] Dr. Shobha Ruffin Neutrophils/100 WBC (Bld) 65.8 % Normal 43.0-75.0 [facility] Comment on above: Performed By: #### R ENAL, URIC, MG #### [facility] [address] [place] [address] Dr. Shobha Ruffin Platelet mean volume (Bld) [Entitic vol] 8.9 fL Critically low 9.5-13.5 [facility] Comment on above: Performed By: #### R ENAL, URIC, MG #### [facility] [address] [place] [address] Dr. Shobha Ruffin PLT 346 103/ul Normal 150-450 [facility] Comment on above: Performed By: #### R ENAL, URIC, MG #### [facility] [address] [place] [address] Dr. Shobha Ruffin RBC 3.91 106/ul Critically low 4.20-5.40 [facility] Comment on above: Performed By: #### R ENAL, URIC, MG #### [facility] [address] [place] [address] Dr. Shobha Ruffin WBC 8.9 103/ul Normal 4.0-11.0 [facility] Comment on above: Performed By: #### R ENAL, URIC, MG #### [facility] [address] [place] [address] Dr. Shobha Ruffin GLYCOHEMOGLOBIN A1Con 2021 ADA RECOMMENDATION SEE BELOW Normal [facility] Comment on above: Result Comment: ADA RECOMMENDED LIMIT 4.0 - 6.0 ADA THERAPEUTIC TARGET < 7.0 ACTION SUGGESTED > 7.0 Performed By: #### O BSCRN #### [facility] [address] [place] [address] Dr. Shobha Ruffin Glucose [Mass/Vol] 123 mg/dL Normal [facility] Comment on above: Performed By: #### O BSCRN #### [facility] [address] [place] [address] Dr. Shobha Ruffin HbA1c (Bld) [Mass fraction] 5.9 % Normal 4.5-6.2 [facility] Comment on above: Performed By: #### O BSCRN #### [facility] [address] [place] [address] Dr. Shobha Ruffin IRONon 01-26-2022 Iron [Mass/Vol] 97.0 ug/dL Normal 50.0-170.0 [facility] Comment on above: Performed By: #### R ENAL, URIC, MG #### [facility] [address] [place] [address] Dr. Shobha Ruffin LIPID PROFILEon 01-26-2022 CHOL-HDL RATIO NORM SEE BELOW Normal [facility] Comment on above: Result Comment: 3.3 - 4.4 LOW RISK 4.4 - 7.1 AVERAGE RISK 7.1 - 11.0 MODERATE RISK >11.0 HIGH RISK Performed By: #### R ENAL, URIC, MG #### [facility] [address] [place] [address] Dr. Shobha Ruffin Cholesterol [Mass/Vol] 284 mg/dL Critically high <=200 [facility] Comment on above: Performed By: #### R ENAL, URIC, MG #### [facility] [address] [address] [address] Shobha Ruffin Cholesterol in HDL [Mass/Vol] 84 mg/dL Critically high 40-60 [facility] Comment on above: Performed By: #### R ENAL, URIC, MG #### [facility] [address] [address] [address] Shobha Ruffin Cholesterol in LDL [Mass/Vol] 184.6 mg/dL Normal [facility] Comment on above: Performed By: #### R ENAL, URIC, MG #### [facility] [address] [address] [address] Shobha Ruffin Cholesterol.total /Cholesterol in HDL [Mass ratio] 3.4 {ratio} Normal [facility] Comment on above: Performed By: #### R ENAL, URIC, MG #### [facility] [address] [place] [address] Dr. Shobha Ruffin HDL NORMAL > or = 60 mg/dl - LO W CARDIOVASCULAR RISK <40 mg/dl - HIGH CARDIOVASCULAR RISK Normal [facility] Comment on above: Performed By: #### R ENAL, URIC, MG #### [facility] [address] [address] [address] Shobha Ruffin LDL CALC NORMAL SEE BELOW Normal [facility] Comment on above: Result Comment: <100 mg/dl OPTIMAL 100 - 129 mg/dl NEAR OR ABOVE OPTIMAL 130 - 159 mg/dl BORDERLINE HIGH 160 - 189 mg/dl HIGH >190 mg/dl VERY HIGH Performed By: #### R ENAL, URIC, MG #### [facility] [address] [place] [address] Dr. Shobha Ruffin Triglyceride [Mass/Vol] 77 mg/dL Normal <=150 [facility] Comment on above: Performed By: #### R ENAL, URIC, MG #### [facility] [address] [place] [address] Dr. Shobha Ruffin VLDL CALC 15.4 mg/dL Normal [facility] Comment on above: Performed By: #### R ENAL, URIC, MG #### [facility] [address] [place] [address] Dr. Shobha Ruffin PROF 14(COMP METB)on 022 Albumin [Mass/Vol] 3.5 g/dL Normal 3.4-5.0 [facility] Comment on above: Performed By: #### R ENAL, URIC, MG #### [facility] [address] [address] [address] Shobha Ruffin Albumin/Globulin [Mass ratio] 1.1 {ratio} Normal [facility] Comment on above: Performed By: #### R ENAL, URIC, MG #### [facility] [address] [address] [address] Shobha Ruffin ALP [Catalytic activity/Vol] 79 U/L Normal 46-116 [facility] Comment on above: Performed By: #### R ENAL, URIC, MG #### [facility] [address] [address] [address] Shobha Ruffin ALT [Catalytic activity/Vol] 28 U/L Normal 14-59 [facility] Comment on above: Performed By: #### R ENAL, URIC, MG #### [facility] [address] [address] [address] Shobha Ruffin Anion gap [Moles/Vol] 9.3 mmol/L Normal [facility] Comment on above: Performed By: #### R ENAL, URIC, MG #### [facility] [address] [address] [address] Shobha Ruffin AST [Catalytic activity/Vol] 12 U/L Critically low 15-37 [facility] Comment on above: Performed By: #### R ENAL, URIC, MG #### [facility] [address] [address] [address] Shobha Ruffin Bilirubin [Mass/Vol] 0.6 mg/dL Normal 0.2-1.0 [facility] Comment on above: Performed By: #### R ENAL, URIC, MG #### [facility] [address] [address] [address] Shobha Ruffin Calcium [Mass/Vol] 9.0 mg/dL Normal 8.5-10.1 [facility] Comment on above: Performed By: #### R ENAL, URIC, MG #### [facility] [address] [address] [address] Shobha Ruffin Chloride [Moles/Vol] 103 mmol/L Normal 98-107 [facility] Comment on above: Performed By: #### R ENAL, URIC, MG #### [facility] [address] [address] [address] Shobha Ruffin CO2 [Moles/Vol] 28.9 mmol/L Normal 21.0-32.0 [facility] Comment on above: Performed By: #### R ENAL, URIC, MG #### [facility] [address] [address] [address] Shobha Ruffin Creatinine [Mass/Vol] 1.02 mg/dL Normal 0.55-1.02 [facility] Comment on above: Performed By: #### R ENAL, URIC, MG #### [facility] [address] [place] [address] Dr. Shobha Ruffin EGFR-AF NIGERIEN >60 Normal >=60 [facility] Comment on above: Performed By: #### R ENAL, URIC, MG #### [facility] [address] [address] [address] Shobha Ruffin EGFR-NON AF NIGERIEN 54 mL/min/1.73m2 Critically low >=60 [facility] Comment on above: Performed By: #### R ENAL, URIC, MG #### [facility] [address] [address] [address] Shobha Ruffin Globulin (S) [Mass/Vol] 3.3 g/dL Normal [facility] Comment on above: Performed By: #### R ENAL, URIC, MG #### [facility] [address] [address] [address] Shobha Ruffin Glucose [Mass/Vol] 100 mg/dL Normal 74-106 [facility] Comment on above: Performed By: #### R ENAL, URIC, MG #### [facility] [address] [address] [address] Shobha Ruffin Potassium [Moles/Vol] 4.2 mmol/L Normal 3.5-5.1 [facility] Comment on above: Performed By: #### R ENAL, URIC, MG #### [facility] [address] [place] [address] Dr. Shobha Ruffin Protein [Mass/Vol] 6.8 g/dL Normal 6.4-8.2 [facility] Comment on above: Performed By: #### R ENAL, URIC, MG #### [facility] [address] [place] [address] Dr. Shobha Ruffin Sodium [Moles/Vol] 137 mmol/L Normal 136-145 [facility] Comment on above: Performed By: #### R ENAL, URIC, MG #### [facility] [address] [place] [address] Dr. Shobha Ruffin Urea nitrogen [Mass/Vol] 20.0 mg/dL Critically high 7.0-18.0 [facility] Comment on above: Performed By: #### R ENAL, URIC, MG #### [facility] [address] [place] [address] Dr. Shobha Ruffin Urea nitrogen/Creatini ne [Mass ratio] 19.6 mg/mg Normal [facility] Comment on above: Performed By: #### R ENAL, URIC, MG #### [facility] [address] [place] [address] Dr. Shobha Ruffin TSHon 01-26-2022 TSH 0.649 uIU/mL Normal 0.358-3.74 0 [facility] Comment on above: Performed By: #### R ENAL, URIC, MG #### [facility] [address] [place] [address] Dr. Shobha Ruffin XR LSPINE MIN 4 VIEWSon 01-08 XR LSPINE MIN 4 VIEWS EXAMINATION: XR LSPINE MIN 4 VIEWS HISTORY: Lumbar radiculopathy , chronic COMPARISON: No relevant comparison available. FINDINGS: BONES: Moderate right convex curvature of thoracolumbar spine. No fracture spondylolisthesis. Moderate degenerative facet arthropathy L4-L5, L5-S1. DISC SPACES: Moderate narrowing at all lumbar levels. PARASPINOUS: Negative. No paraspinous abnormality is seen. OTHER: Aneurysm coil projecting right lateral to the spine. Bowel sutures within left upper quadrant. Overlying catheter is suspected to represent a ventriculoperitoneal shunt catheter. IMPRESSION: 1. Multilevel moderate degenerative disc disease and degenerative facet arthropathy involving most lumbar levels. 2. Moderate dextroscoliosis of lumbar spine. Electronically authenticated by: ANA ROSA BELLO Date: 2022-01-26 10:35 Normal [facility] Covid-19 PCR (CVDTBH)on SARS-CoV-2 (COVID-19) RNA CONRADO+probe Ql (Unsp spec) Detected Critically abnormal NOT DETECTED [facility] Comment on above: Result Comment: This test is not yet approved or cleared by the [place] FDA. When there are no FDA-approved or cleared tests available, and other criteria are met, FDA can make tests available under an emergency access mechanism called an Emergency Use Authorization (EUA). The EUA for this test is supported by the [place] of Health and Human Service's (HHS's) declaration that circumstances exist to justify the emergency use of in vitro diagnostics for the detection and/or diagnosis of the virus that causes COVID-19. This EUA will remain in effect (meaning this test can be used) for the duration of the COVID-19 declaration justifying emergency of IVDs, unless it is terminated or revoked by FDA (after which the test may no longer be used). Performed By: #### [facility] #### [facility] [address] [place] [address] Dr. Shobha Jaramillo 12-23-2021 CNOV Office Visit ([id number] ) MARY GOODE ([id number]) 1950 F Date Time Provider Department 12/23/21 10:00 AM FREDA POP [id number] During your visit today, we recorded the following information about you: Temperature Pulse Blood pressure Weight 97.2 degrees 58/minute 147/55 73.9 kg Height 1.6 m Freda Pop APRN.COIL REWIND MACHINE OPERATOR 12/23/2021 10:45 AM Signed GENERAL SURGERY CLINIC FOLLOW UP NOTE Clinic Date: 12/23/2021 Mary Goode, 71 year old [address] [facility] [id number] CHIEF COMPLAINT: Patient presents with: Post Op Follow Up: S/p Paraesophageal repair 11/16/21 HPI: Mary Goode presents for follow up from paraesophageal hernia repair surgery performed on 11/16/[address] Mendez Fever/Chills, Abdominal Pain: Denies Increased Heart Rate: Denies Shortness of Breath: Denies Cough / Wheezing: Denies Calf/Thigh pain or swelling: Denies Decreased Urine Output: Denies Nausea/Vomiting: Denies Diarrhea: Denies Constipation: intermittently Surgery Date and Procedure: 11/16/21 SURGERY/PROCEDURE: 1. Laparoscopic repair of paraesophageal hernia. 2. Laparoscopic posterior hiatoplasty. 3. Laparoscopic fundectomy. PREOPERATIVE DIAGNOSIS: Paraesophageal hernia. POSTOPERATIVE DIAGNOSIS: 1. Paraesophageal hernia. 2. Short esophagus Current Diet: soft diet Present Activity level: Household activities and Activities outside of house walking her dog twice a day Current Medications: lansoprazole (PREVACID) 30 mg capsule Take 1 capsule by mouth once daily. potassium chloride (K-TAB) 10 mEq tablet Take 10 mEq by mouth once daily. colesevelam (WELCHOL) 625 mg tablet Take 1,875 mg by mouth daily at bedtime. labetalol (TRANDATE) 200 mg tablet Take 200 mg by mouth once daily. sucralfate (CARAFATE) 1 gram tablet Take 1 g by mouth twice daily. losartan (COZAAR) 50 mg tablet Take 50 mg by mouth once daily. amLODIPine (NORVASC) 10 mg tablet Take 10 mg by mouth once daily. desvenlafaxine ER (KHEDEZLA) 50 mg 24 hr tablet Take 50 mg by mouth once daily. gabapentin (NEURONTIN) 300 mg capsule Take 300 mg by mouth as needed. ferrous sulfate (IRON) 325 mg (65 mg iron) tablet Take 325 mg by mouth daily with breakfast. Cholecalciferol, Vitamin D3, (VITAMIN D) 25 mcg (1,000 unit) cap Take 1,000 Units by mouth once daily. iv contrast (will be provided with radiology test) CT ABD/PEL -Inject, intravenously, once for 1 dose.No IV access, insert saline lock prior to the beginning of sedation, infusion, injection of imaging exam. Discontinue saline lock post exam. If Pt. has a central line or IVAD, may access for administration according to line specific nursing protocol. Once exam is complete flush line and de-access according to line specific nursing protocol in the CT contrast administration guidelines link. Aspirin 81 mg ORAL Tab Take one(1) tablet daily. HYDROCHLOROTHIAZIDE 25 MG TAB Take one(1) tablet daily. ZYRTEC 10 MG CHEWABLE TAB Take one(1) tablet daily. REVIEW OF SYSTEMS: CONSTITUTIONAL: Patient denies fevers, chills CARDIOVASCULAR: Patient denies chest pains, palpitations RESPIRATORY: No dyspnea on exertion, no wheezing or cough. GI: see HPI DERMATOLOGIC: Patient denies any rashes or skin changes. Incision(s) : healed PHYSICAL EXAM: BP 147/55 Pulse 58 Temp 97.2 Ht 5' 3 (1.60m) Wt 163 lb (73.9kg) SpO2 98% LMP 05/31/2006 BMI 28.88 kg/(m2). GENERAL: No apparent distress. Pt is alert and oriented x3. LUNGS: no wheezing HEART: No leg edema ABDOMEN: Soft, nontender, and nondistended. Positive bowel sounds. EXTREMITIES: Without any cyanosis, clubbing, rash, lesions or edema. INCISIONS: Clean, dry, intact, well approximated. No s/s of infection. Impression/Plan: - s/p paraesophageal hernia repair doing well overall - Dietary recommendations: Ok to continue to advance diet, doing well with soft foods. - Continue PPI indefinitely Follow up: May with upper GI study Freda Pop APRN.CNP General Surgery [facility] [place] December 22, 2021 Joan Grimaldo MA 12/23/2021 10:03 AM Signed What is the reason for your visit today? Follow up Who is your referring physician? Are you having poor oral intake? NO Have you had unintentional weight loss of 15 lbs/7 Kg in the last 3-6 months? NO Bowels: regular Wound: Temperature: No Drains: No Freda Pop APRN.CNP 12/23/2021 10:43 AM Addendum Your future post op visit schedule 6 months, and 1 year Upper GI study prior to 6 months and 1 year post op appointments. Ok to progress your diet toward a regular diet over the next 2-4 weeks Ok to advance your activity as tolerated Referring Provider: ATIF MENDEZ [[id number]] Allergies As of Date: 12/23/2021 (No Known Allergies) Date Reviewed: 12/23/2021 Reviewed by: Freda Pop APRN.COIL REWIND MACHINE OPERATOR - Fully Assessed Reason for Visit: (more content not included)... Normal [facility] PTH INTACTon 11-27-2021 PTH, Intact 36 pg/mL Normal 15-65 [facility] Comment on above: Performed By: #### P THINT #### [facility] [address] [place] [address] Dr. Shobha Ruffin FERRITINon 11-26-2021 Ferritin [Mass/Vol] 122.0 ng/mL Normal 8.0-252.0 [facility] Comment on above: Performed By: #### O BSCRN #### [facility] [address] [place] [address] Dr. Shobha Ruffin HEMOGRAM AND PLATELon 2021 Hematocrit (Bld) [Volume fraction] 36.0 % Normal 36.0-48.0 [facility] Comment on above: Performed By: #### H H #### [facility] [address] [place] [address] Dr. Shobha Ruffin Hemoglobin (Bld) [Mass/Vol] 11.8 g/dL Critically low 12.0-16.0 [facility] Comment on above: Performed By: #### H H #### [facility] [address] [place] [address] Dr. Shobha Ruffin MCH (RBC) [Entitic mass] 29.7 pg Normal 26.7-34.0 [facility] Comment on above: Performed By: #### H H #### [facility] [address] [place] [address] Dr. Shobha Ruffin MCHC (RBC) [Mass/Vol] 32.8 g/dL Normal 29.9-35.2 [facility] Comment on above: Performed By: #### H H #### [facility] [address] [place] [address] Dr. Shobha Ruffin MCV (RBC) [Entitic vol] 90.7 fL Normal 81.0-99.0 [facility] Comment on above: Performed By: #### H H #### [facility] [address] [place] [address] Dr. Shobha Ruffin PLT 417 103/ul Normal 150-450 [facility] Comment on above: Performed By: #### H H #### [facility] [address] [place] [address] Dr. Shobha Ruffin RBC 3.97 106/ul Critically low 4.20-5.40 [facility] Comment on above: Performed By: #### H H #### [facility] [address] [place] [address] Dr. Shobha Ruffin WBC 7.9 103/ul Normal 4.0-11.0 [facility] Comment on above: Performed By: #### H H #### [facility] [address] [place] [address] Dr. Shobha Ruffin IRON AND TIBCon 11-26-2021 % SATURATION 28.2 % Normal [facility] Comment on above: Performed By: #### O BSCRN #### [facility] [address] [place] [address] Dr. Shobha Ruffin Iron [Mass/Vol] 83.0 ug/dL Normal 50.0-170.0 [facility] Comment on above: Performed By: #### O BSCRN #### [facility] [address] [place] [address] Dr. Shobha Ruffin TIBC DIRECT 294.0 ug/dL Normal 250.0-450. 0 [facility] Comment on above: Performed By: #### O BSCRN #### [facility] [address] [place] [address] Dr. Shobha Ruffin MAGNESIUMon 11-26-2021 Magnesium [Mass/Vol] 1.8 mg/dL Normal 1.8-2.4 [facility] Comment on above: Performed By: #### R ENAL, URIC, MG #### [facility] [address] [place] [address] Dr. Shobha Ruffin RENAL FUNCTION PANELon 11-26 Albumin [Mass/Vol] 3.6 g/dL Normal 3.4-5.0 [facility] Comment on above: Performed By: #### R ENAL, URIC, MG #### [facility] [address] [place] [address] Dr. Shobha Ruffin Calcium [Mass/Vol] 9.3 mg/dL Normal 8.5-10.1 [facility] Comment on above: Performed By: #### R ENAL, URIC, MG #### [facility] [address] [place] [address] Dr. Shobha Ruffin Chloride [Moles/Vol] 99 mmol/L Normal 98-107 [facility] Comment on above: Performed By: #### R ENAL, URIC, MG #### [facility] [address] [place] [address] Dr. Shobha Ruffin CO2 [Moles/Vol] 28.6 mmol/L Normal 21.0-32.0 [facility] Comment on above: Performed By: #### R ENAL, URIC, MG #### [facility] [address] [place] [address] Dr. Shobha Ruffin Creatinine [Mass/Vol] 1.18 mg/dL Critically high 0.55-1.02 [facility] Comment on above: Performed By: #### R ENAL, URIC, MG #### [facility] [address] [place] [address] Dr. Shobah Ruffin EGFR-AF NIGERIEN 55 mL/min/1.73m2 Critically low >=60 [facility] Comment on above: Performed By: #### R ENAL, URIC, MG #### [facility] [address] [place] [address] Dr. Shobha Ruffin EGFR-NON AF NIGERIEN 45 mL/min/1.73m2 Critically low >=60 [facility] Comment on above: Performed By: #### R ENAL, URIC, MG #### [facility] [address] [address] [address] Shobha Ruffin Glucose [Mass/Vol] 90 mg/dL Normal 74-106 [facility] Comment on above: Performed By: #### R ENAL, URIC, MG #### [facility] [address] [place] [address] Dr. Shobha Ruffin Phosphate [Mass/Vol] 4.8 mg/dL Critically high 2.6-4.7 [facility] Comment on above: Performed By: #### R ENAL, URIC, MG #### [facility] [address] [place] [address] Dr. Shobha Ruffin Potassium [Moles/Vol] 4.1 mmol/L Normal 3.5-5.1 [facility] Comment on above: Performed By: #### R ENAL, URIC, MG #### [facility] [address] [place] [address] Dr. Shobha Ruffin Sodium [Moles/Vol] 136 mmol/L Normal 136-145 [facility] Comment on above: Performed By: #### R ENAL, URIC, MG #### [facility] [address] [place] [address] Dr. Shobha Ruffin Urea nitrogen [Mass/Vol] 20.0 mg/dL Critically high 7.0-18.0 [facility] Comment on above: Performed By: #### R ENAL, URIC, MG #### [facility] [address] [place] [address] Dr. Shobha Ruffin UA RANDOM W/MICROSCOPICon BACTERIA TRACE Abnormal NONE SEEN [facility] Comment on above: Performed By: #### R ENAL, URIC, MG #### [facility] [address] [place] [address] Dr. Shobha Ruffin Bilirubin Ql (U) Negative Normal NEGATIVE [facility] Comment on above: Performed By: #### R ENAL, URIC, MG #### [facility] [address] [place] [address] Dr. Shobha Ruffin CAST SEEN Abnormal NONE SEEN [facility] Comment on above: Performed By: #### R ENAL, URIC, MG #### [facility] [address] [place] [address] Dr. Shobha Ruffin Clarity (U) CLEAR Normal CLEAR [facility] Comment on above: Performed By: #### R ENAL, URIC, MG #### [facility] [address] [place] [address] Dr. Shobha Ruffin Color (U) YELLOW Normal YELLOW [facility] Comment on above: Performed By: #### R ENAL, URIC, MG #### [facility] [address] [place] [address] Dr. Shobha Ruffin Crystals LM Nom (Urine sed) NONE SEEN Normal NONE SEEN [facility] Comment on above: Performed By: #### R ENAL, URIC, MG #### [facility] [address] [place] [address] Dr. Shobha Ruffin Epithelial cells LM Ql (Urine sed) FEW Abnormal NONE SEEN /RARE [facility] Comment on above: Performed By: #### R ENAL, URIC, MG #### [facility] [address] [place] [address] Dr. Shobha Ruffin Glucose Ql (U) Negative Normal NEGATIVE [facility] Comment on above: Performed By: #### R ENAL, URIC, MG #### [facility] [address] [place] [address] Dr. Shobha Ruffin Hemoglobin Ql (U) Negative Normal NEGATIVE [facility] Comment on above: Performed By: #### R ENAL, URIC, MG #### [facility] [address] [place] [address] Dr. Shobha Ruffin HYALINE CAST RARE Normal [facility] Comment on above: Performed By: #### R ENAL, URIC, MG #### [facility] [address] [place] [address] Dr. Shobha Ruffin Ketones Ql (U) TRACE Abnormal NEGATIVE [facility] Comment on above: Performed By: #### R ENAL, URIC, MG #### [facility] [address] [place] [address] Dr. Shobha Ruffin LEUKOCYTES TRACE Abnormal NEGATIVE [facility] Comment on above: Performed By: #### R ENAL, URIC, MG #### [facility] [address] [address] [address] Shobha Ruffin MUCOUS TRACE Abnormal NONE SEEN [facility] Comment on above: Performed By: #### R ENAL, URIC, MG #### [facility] [address] [place] [address] Dr. Shobha Ruffin Nitrite Ql (U) Negative Normal NEGATIVE [facility] Comment on above: Performed By: #### R ENAL, URIC, MG #### [facility] [address] [place] [address] Dr. Shobha Ruffin pH (U) 7.0 [pH] Normal 5-9 [facility] Comment on above: Performed By: #### R ENAL, URIC, MG #### [facility] [address] [place] [address] Dr. Shobha Ruffin RBC 0-2 Normal 0-2 [facility] Comment on above: Performed By: #### R ENAL, URIC, MG #### [facility] [address] [place] [address] Dr. Shobha Ruffin SPEC GRAVITY 1.015 Normal 1.005-<=1. 025 [facility] Comment on above: Performed By: #### R ENAL, URIC, MG #### [facility] [address] [place] [address] Dr. Shobha Ruffin UA PROTEIN Negative Normal NEGATIVE/ TRACE [facility] Comment on above: Performed By: #### R ENAL, URIC, MG #### [facility] [address] [place] [address] Dr. Shobha Ruffin Urobilinogen Qn (U) 1.0 {Raul'U}/dL Normal 0.2 - 1.0 [facility] Comment on above: Performed By: #### R ENAL, URIC, MG #### [facility] [address] [place] [address] Dr. Shobha Ruffin WBC 2-5 Abnormal NONE SEEN [facility] Comment on above: Performed By: #### R ENAL, URIC, MG #### [facility] [address] [place] [address] Dr. Shobha Ruffin URIC ACID SERUMon 11-26-2021 Urate [Mass/Vol] 3.2 mg/dL Normal 2.6-6.0 [facility] Comment on above: Performed By: #### R ENAL, URIC, MG #### [facility] [address] [address] [address] Shobha Ruffin URINE T PROTEIN CREAT RATIOo n 11-26-2021 Protein (U) [Mass/Vol] 24.2 mg/dL Critically high <=12.0 [facility] Comment on above: Performed By: #### R ENAL, URIC, MG #### [facility] [address] [address] [address] Shobha Ruffin UR PROT CREAT RAT 0.16 Normal [facility] Comment on above: Performed By: #### R ENAL, URIC, MG #### [facility] [address] [place] [address] Dr. Shobha Ruffin URINE CREAT 152.18 mg/dL Normal 20.00-300. 00 [facility] Comment on above: Performed By: #### R ENAL, URIC, MG #### [facility] [address] [address] [address] Shobha Ruffin VITAMIN D 25 OHon 11-26-2021 VIT D 25-OH 38.4 ng/mL Normal [facility] Comment on above: Performed By: #### O BSCRN #### [facility] [address] [place] [address] Dr. Shobha Ruffin VIT D RANGES SEE BELOW Normal [facility] Comment on above: Result Comment: <20 ng/mL Vit D deficient 20 - <30 ng/mL Vit D insufficient 30 - 100 ng/mL Vit D sufficient >100 ng/mL Potential Toxicity Performed By: #### O BSCRN #### [facility] [address] [place] [address] Dr. Shobha Ruffin Basic metabolic 2000 panelon 11-17-2021 Anion gap [Moles/Vol] 14 mmol/L Normal 9-18 [facility] Comment on above: Order Comment: Speci men Type: BLOOD SPECIMEN Ordering Facility: [facility] Address: [address] [place], [place] [id number] Performed By: #### 1 23-9, 01237-0, 2776-05 #### [facility] CLIA [id number] [address] [place] [address] [place] Calcium [Mass/Vol] 9.6 mg/dL Normal 8.5-10.2 [facility] Comment on above: Order Comment: Speci men Type: BLOOD SPECIMEN Ordering Facility: [facility] Address: [address] [place] [address] Performed By: #### 1 9123-9, 23051-5, 2776-05 #### [facility] CLIA [id number] [address] [place] [address] [place] Chloride [Moles/Vol] 95 mmol/L Low 97-105 [facility] Comment on above: Order Comment: Speci men Type: BLOOD SPECIMEN Ordering Facility: [facility] Address: [address] [place] [address] Performed By: #### 1 239, , 2776-05 #### [facility] CLIA [id number] [address] [place] [address] [place] CO2 [Moles/Vol] 23 mmol/L Normal 22-30 [facility] Comment on above: Order Comment: Speci men Type: BLOOD SPECIMEN Ordering Facility: [facility] Address: [address] [place] [address] Performed By: #### 1 239, 00628-7, 2776-05 #### [facility] CLIA [id number] [address] [place] [address] [place] Creatinine [Mass/Vol] 0.91 mg/dL Normal 0.58-0.96 [facility] Comment on above: Order Comment: Speci men Type: BLOOD SPECIMEN Ordering Facility: [facility] Address: [address] [place] [address] Performed By: #### 1 9123-9, 85730-9, 2776-05 #### [facility] CLIA [id number] [place] [address] [place] ESTIMATED GLOMERULAR FILTRATION RATE 69 mL/min/1.73m??? Normal >=60 [facility] Comment on above: Order Comment: Param jarquin Type: BLOOD SPECIMEN Ordering Facility: [facility] Address: [address] [place] [address] Result Comment: Gabriela mated Glomerular Filtration Rate (eGFR) is calculated using the 2020 CKD-EPI creatinine equation. This equation utilizes serum creatinine, sex, and age as parameters. The creatinine assay has traceable calibration to isotope dilution-mass spectrometry. Refer to KDIGO guidelines for clinical interpretation. In patients with unstable renal function, e.g. those with acute kidney injury, the eGFR may not accurately reflect actual GFR. Performed By: #### 1 9123-9, 42282-8, 27711-06 #### [facility] CLIA [id number] [place] [address] [place] Glucose [Mass/Vol] 110 mg/dL High 74-99 [facility] Comment on above: Order Comment: Param jarquin Type: BLOOD SPECIMEN Ordering Facility: [facility] Address: [address] [place] [address] Result Comment: The [place] Diabetes Association (ADA) provides guidance for cutoff values for fasting glucose and random glucose. The ADA defines fasting as no caloric intake for at least 8 hours. Fasting plasma glucose results between 100 to 125 mg/dL indicate increased risk for diabetes (prediabetes). Fasting plasma glucose results greater than or equal to 126 mg/dL meet the criteria for diagnosis of diabetes. In the absence of unequivocal hyperglycemia, results should be confirmed by repeat testing. In a patient with classic symptoms of hyperglycemia or hyperglycemic crisis, random plasma glucose results greater than or equal to 200 mg/dL meet the criteria for diagnosis of diabetes. Reference: Standards of Medical Care in Diabetes 2016, [place] [employer]. Diabetes Care. 2016.39(Suppl 1). Performed By: #### 1 9123-9, 85161-6, 2776-05 #### [facility] CLIA [id number] [place] [address] [place] Potassium [Moles/Vol] 3.6 mmol/L Low 3.7-5.1 [facility] Comment on above: Order Comment: Speci men Type: BLOOD SPECIMEN Ordering Facility: [facility] Address: [address] [place] [address] Performed By: #### 1 9123-9, 07221-3, 2776-05 #### [facility] CLIA [id number] [address] [place] [address] [place] Sodium [Moles/Vol] 132 mmol/L Low 136-144 [facility] Comment on above: Order Comment: Speci men Type: BLOOD SPECIMEN Ordering Facility: [facility] Address: [address] [place] [address] Performed By: #### 1 9123-9, 80443-6, 2776-05 #### [facility] CLIA [id number] [address] [place] [address] [place] Urea nitrogen [Mass/Vol] 13 mg/dL Normal 7-21 [facility] Comment on above: Order Comment: Speci men Type: BLOOD SPECIMEN Ordering Facility: [facility] Address: [address] [place] [address] Performed By: #### 1 9123-9, , 2776-05 #### [facility] CLIA [id number] [address] [place] [address] [place] CBC W Auto Differential pane l (Bld)on 11-17-2021 Basophils (Bld) [#/Vol] 10*3/uL Normal <0.11 [facility] Comment on above: Order Comment: Speci men Type: BLOOD SPECIMENOrdering Facility: [facility] Address: [address] [place] [address] Performed By: #### 5 7021-8 ####[facility] [id number] [address] [place] Basophils/100 WBC (Bld) 0.1 % Normal [facility] Comment on above: Order Comment: Speci men Type: BLOOD SPECIMENOrdering Facility: [facility] Address: [address] [place] [address] Performed By: #### 5 7021-8 ####[facility] [id number] [address] [place] Differential cell count method Nom (Bld) Auto Normal [facility] Comment on above: Order Comment: Speci men Type: BLOOD SPECIMENOrdering Facility: [facility] Address: [address] [place] [address] Performed By: #### 5 7021-8 ####[facility] [id number] [place] [address] [place] Eosinophils (Bld) [#/Vol] 10*3/uL Normal <0.46 [facility] Comment on above: Order Comment: Speci men Type: BLOOD SPECIMENOrdering Facility: [facility] Address: [address] [place] [address] Performed By: #### 5 7021-8 ####[facility]ORYCLIA [id number] [address] [place] Eosinophils/100 WBC (Bld) 0.0 % Normal [facility] Comment on above: Order Comment: Speci men Type: BLOOD SPECIMENOrdering Facility: [facility] Address: [address] [place] [address] Performed By: #### 5 7021-8 ####[facility]ORYCLIA [id number] [address] [place] Erythrocyte distribution width (RBC) [Ratio] 12.6 % Normal 11.5-15.0 [facility] Comment on above: Order Comment: Speci men Type: BLOOD SPECIMENOrdering Facility: [facility] Address: [address] [place] [address] Performed By: #### 5 7021-8 ####[facility]ORYCLIA [id number] [address] [place] Hematocrit (Bld) [Volume fraction] 39.9 % Normal 36.0-46.0 [facility] Comment on above: Order Comment: Speci men Type: BLOOD SPECIMENOrdering Facility: [facility] Address: [address] [place] [address] Performed By: #### 5 7021-8 ####[facility]ORYCLIA [id number] [address] [place] Hemoglobin (Bld) [Mass/Vol] 13.4 g/dL Normal 11.5-15.5 [facility] Comment on above: Order Comment: Speci men Type: BLOOD SPECIMENOrdering Facility: [facility] Address: [address] [place] [address] Performed By: #### 5 7021-8 ####[facility]ATORYCLIA [id number] [address] IMMATURE GRAN % 0.4 % Normal [facility] Comment on above: Order Comment: Speci men Type: BLOOD SPECIMENOrdering Facility: [facility] Address: [address] [place] [address] Performed By: #### 5 7021-8 ####[facility] [id number] [address] IMMATURE GRAN ABS 0.04 k/uL Normal <0.10 [facility] Comment on above: Order Comment: Speci men Type: BLOOD SPECIMENOrdering Facility: [facility] Address: [address] [place] [address] Performed By: #### 5 7021-8 ####[facility] [id number] [address] [place] Lymphocytes (Bld) [#/Vol] 1.25 10*3/uL Normal 1.00-4.00 [facility] Comment on above: Order Comment: Speci men Type: BLOOD SPECIMENOrdering Facility: [facility] Address: [address] [place] [address] Performed By: #### 5 7021-8 ####[facility]ORATORYCLIA [id number] [address] Lymphocytes/100 WBC (Bld) 11.6 % Normal [facility] Comment on above: Order Comment: Speci men Type: BLOOD SPECIMENOrdering Facility: [facility] Address: [address] [place], [place] [address] Performed By: #### 5 7021-8 ####[facility] [id number] [address] [place] [facility] MCH (RBC) [Entitic mass] 29.4 pg Normal 26.0-34.0 [facility] Comment on above: Order Comment: Speci men Type: BLOOD SPECIMENOrdering Facility: [facility] Address: [address] [place] [address] Performed By: #### 5 7021-8 ####[facility] LABORATORYCLIA [id number] [address] [place] MCHC (RBC) [Mass/Vol] 33.6 g/dL Normal 30.5-36.0 [facility] Comment on above: Order Comment: Speci men Type: BLOOD SPECIMENOrdering Facility: [facility] Address: [address] [place] [address] Performed By: #### 5 7021-8 ####[facility] [id number] [address] [place] MCV (RBC) [Entitic vol] 87.5 fL Normal 80.0-100.0 [facility] Comment on above: Order Comment: Speci men Type: BLOOD SPECIMENOrdering Facility: [facility] Address: [address] [place] [address] Performed By: #### 5 7021-8 ####[facility] LABORATORYCLIA [id number] [address] [place] Monocytes (Bld) [#/Vol] 1.20 10*3/uL High <0.87 [facility] Comment on above: Order Comment: Speci men Type: BLOOD SPECIMENOrdering Facility: [facility] Address: [address] [place] [address] Performed By: #### 5 7021-8 ####[facility] [id number] [address] Monocytes/100 WBC (Bld) 11.1 % Normal [facility] Comment on above: Order Comment: Speci men Type: BLOOD SPECIMENOrdering Facility: [facility] Address: [address] [place] [address] Performed By: #### 5 7021-8 ####[facility] [id number] [place] [address] [place] Neutrophils (Bld) [#/Vol] 8.32 10*3/uL High 1.45-7.50 [facility] Comment on above: Order Comment: Speci men Type: BLOOD SPECIMENOrdering Facility: [facility] Address: [address] [place] [address] Performed By: #### 5 7021-8 ####[facility]ORY[facility] [id number] [place] [address] [place] Neutrophils/100 WBC (Bld) 76.8 % Normal [facility] Comment on above: Order Comment: Speci men Type: BLOOD SPECIMENOrdering Facility: [facility] Address: [address] [place] [address] Performed By: #### 5 7021-8 ####[facility]ORYCL[facility] [id number] [place] [address] [place] Nucleated RBC (Bld) [#/Vol] 10*3/uL Normal <0.01 [facility] Comment on above: Order Comment: Speci men Type: BLOOD SPECIMENOrdering Facility: [facility] Address: [address] [place] [address] Performed By: #### 5 7021-8 ####[facility]ORYCL[facility] [id number] [place] [id number] [place] Nucleated RBC/100 WBC (Bld) [Ratio] 0.0 /100 WBC Normal [facility] Comment on above: Order Comment: Speci men Type: BLOOD SPECIMENOrdering Facility: [facility] Address: [address] [place] [address] Performed By: #### 5 7021-8 ####[facility]CL[facility] [id number] [place] [address] [place] Platelet mean volume (Bld) [Entitic vol] 9.6 fL Normal 9.0-12.7 [facility] Comment on above: Order Comment: Speci men Type: BLOOD SPECIMENOrdering Facility: [facility] Address: [address] [place] [address] Performed By: #### 5 7021-8 ####[facility] [id number] [place] [id number] [place] Platelets (Bld) [#/Vol] 333 10*3/uL Normal 150-400 [facility] Comment on above: Order Comment: Speci men Type: BLOOD SPECIMENOrdering Facility: [facility] Address: [address] [place] [address] Performed By: #### 5 7021-8 ####[facility] [id number] [place] [address] [place] RBC (Bld) [#/Vol] 4.56 10*6/uL Normal 3.90-5.20 [facility] Comment on above: Order Comment: Speci men Type: BLOOD SPECIMENOrdering Facility: [facility] Address: [address] [place] [address] Performed By: #### 5 7021-8 ####[facility] [id number] [place] [id number] [place] WBC (Bld) [#/Vol] 10.82 10*3/uL Normal 3.70-11.00 [facility] Comment on above: Order Comment: Speci men Type: BLOOD SPECIMENOrdering Facility: [facility] Address: [address] [place] [address] Performed By: #### 5 7021-8 ####[facility] [id number] [place] [id number] [facility] [place] CNDSon 11-17-2021 CNDS HNO ID: [id number] Author: Zhane Rasmussen MD Service: General Surgery Author Type: Resident Type: Discharge Summary Filed: 11/17/2021 1:01 PM Note Text: Attestation signed by Atif Mendez MD at 11/19/2021 12:38 PM DISCHARGE SUMMARY PATIENT NAME: Mary Goode ADMISSION DATE: 11/16/2021 DISCHARGE DATE: 11/17/2021 ATTENDING PHYSICIAN: Atif Mendze MD Code Status: Not on file Highest Readmission Risk Score: 9 The 30 day readmissions risk score is derived from an internally validated risk model which evaluates patient level characteristics, utilization history, medication orders and lab results up until the day of discharge. Patients with a score of 40 or above are considered highest risk for readmission. Specific patient level drivers will be listed at the bottom of the summary. CONSULTING TEAMS DURING HOSPITALIZATION: None Treatment Team: Attending Provider: Atif Mendez MD REASON FOR HOSPITALIZATION: Laparoscopic paraesophageal hernia repair, Eduardo gastroplasty, EGD DIAGNOSIS: Principal Problem: Hiatal hernia POA: Yes Resolved Problems: * No resolved hospital problems. * OPERATIONS DURING HOSPITALIZATION: Laparoscopic paraesophageal hernia repair, Eduardo gastroplasty, EGD PROCEDURES DURING HOSPITALIZATION: No procedures performed HOSPITAL COURSE: You were admitted to [facility] on 11/16/2021 to undergo the above listed procedure. You tolerated the procedure well and were transferred to the recovery area and then the regular nursing floor for routine post operative care. Your pain was managed with oral and IV pain medication. Your diet was started with clear liquids and advanced to full liquids and pureed food as tolerated. On the day of discharge, you were tolerating an oral diet, ambulating well, urinating independently, and your pain AND nausea were controlled on medications. You were deemed stable for discharge home with instructions to schedule outpatient follow up. Transitions of Care Critical Issues: NEW BASELINE FOR PATIENT: s/p Laparoscopic paraesophageal hernia repair, Eduardo gastroplasty, EGD LABS AND PROCEDURES PENDING AT DISCHARGE: No pending results. PATIENT CONDITION AT DISCHARGE: Stable DISCHARGE DISPOSITION: Home with Self Care Discharge Physical Exam: VITAL SIGNS: BP 139/75 Pulse 98 Temp 36.4 ?C (97.5 ?F) (Oral) Resp 18 Ht 160 cm (5' 3 ) Wt 78.5 kg (173 lb) LMP 05/31/2006 SpO2 98% BMI 30.65 kg/m? GENERAL: Alert, no distress, cooperative LUNGS: Lungs clear to auscultation, Good diaphragmatic excursion CARDIAC: Normal S1 and S2; no rubs, murmurs, or gallops ABDOMEN: Abdomen soft, non-tender, BS normal, No masses or organomegaly WOUND: Clean, dry and intact INFORMATION PROVIDED TO PATIENT: see discharge instructions WOUND/SURGICAL SITE CARE: see discharge instructions DIET: Bariatric Phase 2 diet: Full liquid, carbohydrate controlled ACTIVITY: see discharge instructions ALLERGIES No Known Allergies DISCHARGE MEDICATION: Current Discharge Medication List START taking these medications oxyCODONE IR (ROXICODONE) 5 mg Take 5 mg by mouth every 6 hours as needed for pain. Qty: 5 tablet Refills: 0 Associated Diagnoses:Post-operative pain CONTINUE these medications which have NOT CHANGED potassium chloride (K-TAB) 10 mEq Take 10 mEq by mouth once daily. labetalol (TRANDATE) 200 mg Take 200 mg by mouth once daily. lansoprazole (PREVACID) 30 mg Take 30 mg by mouth once daily. sucralfate (CARAFATE) 1 g Take 1 g by mouth twice daily. losartan (COZAAR) 50 mg Take 50 mg by mouth once daily. amLODIPine (NORVASC) 10 mg Take 10 mg by mouth once daily. desvenlafaxine ER (KHEDEZLA) 50 mg Take 50 mg by mouth once daily. gabapentin (NEURONTIN) 300 mg Take 300 mg by mouth as needed. ferrous sulfate 325 mg Take 325 mg by mouth daily with breakfast. HYDROCHLOROTHIAZIDE 25 MG TAB Take one(1) tablet daily. Qty: 0 Refills: 0 ibuprofen (MOTRIN) 800 mg Take 800 mg by mouth. colesevelam (WELCHOL) 1,875 mg Take 1,875 mg by mouth daily at bedtime. Cholecalciferol (Vitamin D3) 1,000 Units Take 1,000 Units by mouth once daily. iv contrast (will be provided with radiology test) CT ABD/PEL -Inject, intravenously, once for 1 dose.No IV access, insert saline lock prior to the beginning of sedation, infusion, injection of imaging exam. Discontinue saline lock post exam. If Pt. has a central line or IVAD, may access for administration according to line specific nursing protocol. Once exam is complete flush line and de-access according to line specific nursing protocol in the CT contrast administration guidelines link. Qty: 1 Each Refills: 0 Associated Diagnoses:Paraesophageal hernia CITALOPRAM 20 MG TA (more content not included)... Normal [facility] Magnesium SerPl-mCncon 11-17 Magnesium [Mass/Vol] 1.8 mg/dL Normal 1.7-2.3 [facility] Comment on above: Order Comment: Speci men Type: BLOOD SPECIMENOrdering Facility: [facility] Address: [address] [place] [address] Performed By: #### 1 9123-9, 92050-6, 2777-1 ####[place] [facility]ORATORYCLIA [id number] [address] OF [facility] NURSING PROGon 11-17-2021 NURSING PROG HNO ID: [id number] Author: Zakia Champagne RN Service: Nursing Author Type: Registered Nurse Type: Nursing Progress Note Filed: 11/17/2021 10:17 AM Note Text: Nursing Progress Note Patient Name: Mary Goode Patient Location: [id number]/-[id number] ____ Daily Note: 0830: Pt AANDOx3. VSS. RA. Pt up with standby assist to the bathroom to void. Pt up and ambulated in the halls, standby, steady gait. Abdomen tender, bowel sounds hypoactive, no flatus yet. No complaints of nausea. Diet advanced to clear liquids. Lap sites education assistant with glue. Pain 3/10, manageable at this time. Encouraged to use IC. Call light in reach. This note was completed by: Zakia Champagne [facility] PT EDon 11-17-2021 PT ED HNO ID: [id number] Author: Kat Pitt DTR Service: Nutrition Therapy Author Type: Packaging Technician Type: Patient Education Filed: 11/17/2021 11:12 AM Note Text: NUTRITION THERAPY PATIENT EDUCATION SERVICE DATE: 11/17/2021 SERVICE TIME: 11:00 AM TOPIC: Diet: Full Liquid LEARNING ASSESSMENT Individuals Assessed: Patient Preferred Learning Method: : Verbal Instruction and Written Instruction Barriers to Learning: : None Evident LEARNING RESPONSE Instruction Provided to: Patient Patient / Family Response: Verbalizes Understanding Method of Instruction: Written instruction - handouts Verbal instruction Material(s) Provided to Patient: Nutrition Therapy instruction material: Full Liquid Diet Follow-Up Plan: Patient instructed to call with any further issues Referral (Recommendation): Nutrition - Inpatient MNT Billing: $ Routine Care : 1-15 minutes SIGNATURE: Kat Pitt DTR PATIENT NAME: Mary Goode DATE: November 17, 2021 TIME: 11:08 AM PAGER: [facility] Phosphate SerPl-mCncon 11-17 Phosphate [Mass/Vol] 3.7 mg/dL Normal 2.7-4.8 [facility] Comment on above: Order Comment: Speci men Type: BLOOD SPECIMENOrdering Facility: [facility] Address: [address] [place] [address] Performed By: #### 1 9123-9, 78906-6, 2777-1 ####[place] [facility]ORATORYCLIA [id number] [place] [address] [place] ANES POSTPROC EVALon 022 ANES POSTPROC EVAL HNO ID: [id number] Author: Julian Dotson MD Service: Anesthesiology Author Type: Anesthesiologist Type: Anesthesia Postprocedure Evaluation Filed: 11/16/2021 3:25 PM Note Text: POST ANESTHESIA EVALUATION NOTE : 1950 Procedure Summary Date: 11/16/21 Room / Location: OR05 / [facility] OR Anesthesia Start: 1138 Anesthesia Stop: 1445 Procedure: LAPAROSCOPIC RPR PARAESOPHAGEAL HERNIA W/MESH (N/A Abdomen) Diagnosis: Paraesophageal hernia (Paraesophageal hernia [K44.9]) Surgeons: Atif Mendez MD Responsible Provider: Julian Dotson MD Anesthesia Type: general ASA Status: 3 Anesthesia Type: general Airway Type: ETT Last Vitals Vitals Value Taken Time BP 144/74 11/16/21 1515 Temp 37.4 ?C (99.3 ?F) 11/16/21 1442 Pulse 81 11/16/21 1524 Resp 21 11/16/21 1524 SpO2 95 % 11/16/21 1524 Vitals shown include unvalidated device data. Post Anesthesia Patient Status Patient Evaluation: PACU. PACU/ICU Patient Condition: stable. Anticipated Disposition: phase 2 then home. Neurological Status: aware and responsive. Pulmonary Status: breathing comfortably on room air Airway Control: returned to baseline unsupported. Cardiovascular Status: stable. Pain Management: clinically adequate - multimodal analgesia pain management approach Postoperative Hydration: acceptable. Intraoperative Events: no significant anesthesia events Recommendation: continue current plan of care. Anesthesia Observations No Documentation SIGNATURE: Julian Dotson MD PATIENT NAME: Mary Goode DATE: November 16, 2021 TIME: 3:25 PM CSN: [id number] [facility] ANES PRE-OPon 11-16-2021 ANES PRE-OP HNO ID: [id number] Author: Julian Dotson MD Service: Anesthesiology Author Type: Anesthesiologist Type: Anesthesia Preprocedure Evaluation Filed: 11/16/2021 12:03 PM Note Text: ANESTHESIOLOGY DAY OF SURGERY NOTE : 1950 Procedure Information Anesthesia Start Date/Time: 11/16/211138 Procedure: LAPAROSCOPIC RPR PARAESOPHAGEAL HERNIA W/MESH (N/A Abdomen) Location: OR / OR Surgeons: Atif Mendez MD Estimated body mass index is 30.65 kg/m? as calculated from the following: Height as of 11/12/21: 160 cm (5' 3 ). Weight as of 11/12/21: 78.5 kg (173 lb). Most recent hematocrit and potassium results: Hematocrit 36.7 11/03/2021 Potassium 4.3 11/03/2021 Relevant Problems ANESTHESIA (+) ADITI (obstructive sleep apnea) CARDIO (+) Essential hypertension (+) Murmur GI (+) Hiatal hernia -RENAL (+) CKD (chronic kidney disease) stage 3, GFR 30-59 ml/min (HCC) PULMONARY (+) ADITI (obstructive sleep apnea) I - PHYSICAL EVALUATION AIRWAY Patient intubated: No. Tracheostomy tube not present Mallampati: II. TM distance: >3 FB. Neck ROM: full ROM without neurological symptoms. Mouth opening: adequate. Short neck: no. Thick neck: no DENTAL Dental findings: teeth intact. Additional exam findings: no II - ANESTHESIA PLAN ASA Score: 3 Anesthetic Plan: general Airway type: ETT The patient is not a current smoker. NPO Status: adequate Monitoring plan: Standard ASA. Anesthetic plan additional comments: Symptoms of Sleep Apnea: Formally diagnosed and compliant. Previous Anesthesia: No history of adverse event Family history of anesthetic problems: None Functional Capacity Assessment:Denies chest pain and SOB with exertion. Denies change in functional capacity. History of GERD: Yes- Poorly controlled Most recent lab results: Hemoglobin 12.3 11/03/2021 Hematocrit 36.7 11/03/2021 Potassium 4.3 11/03/2021 Platelet Count 331 11/03/2021 PT Sec 10.4 06/28/2006 APTT 28.1 06/28/2006 PT INR 0.9 06/28/2006 Creatinine 1.05 11/03/2021 . Postoperative analgesic plan: parenteral or oral opioids and multimodal analgesia. Informed Consent Anesthetic risks, benefits, alternatives, personnel and consent discussed: yes. Patient / Responsible Libertarian agrees to proceed: yes Patient / Surrogate agrees to blood products: No Patient / Surrogate agrees to alternative blood products: albumin (Verbal consent yes to albumin.) DNR status not reviewed with patient and/or family prior to surgery. Significant changes in the patient condition since the History and Physical, not otherwise documented in primary service progress note: no. Potential Anesthesia issues that may suggest increased risk of complications or contraindication to planned procedure: none. Vitals Value Taken Time BP 126/51 11/16/21 1102 Pulse 65 11/16/21 1102 Resp 18 11/16/21 1102 Temp 36.3 ?C (97.3 ?F) 11/16/21 1102 SpO2 98 % 11/16/21 1102 Facility-Administered Medications as of 11/16/2021 Medication Dose Route Frequency - lidocaine 10 mg/mL (1 %) 1-2 mg injection (XYLOCAINE) 0.1-0.2 mL INTRADERMAL PRN - lactated ringers iv infusion 5-30 mL/hr INTRAVENOUS CONTINUOUS - [COMPLETED] heparin 5,000 Units injection 5,000 Units SUBCUTANEOUS ONCE - ceFAZolin iv piggyback 2 g in D5W (iso-osmotic) 100 mL (ANCEF) 2 g INTRAVENOUS Pre-Op Once Outpatient Medications as of 11/16/2021 Medication Sig - potassium chloride (K-TAB) 10 mEq tablet Take 10 mEq by mouth once daily. - labetalol (TRANDATE) 200 mg tablet Take 200 mg by mouth once daily. - lansoprazole (PREVACID) 30 mg capsule Take 30 mg by mouth once daily. - sucralfate (CARAFATE) 1 gram tablet Take 1 g by mouth twice daily. - losartan (COZAAR) 50 mg tablet Take 50 mg by mouth once daily. - amLODIPine (NORVASC) 10 mg tablet Take 10 mg by mouth once daily. - desvenlafaxine ER (KHEDEZLA) 50 mg 24 hr tablet Take 50 mg by mouth once daily. - gabapentin (NEURONTIN) 300 mg capsule Take 300 mg by mouth as needed. - ferrous sulfate (IRON) 325 mg (65 mg iron) tablet Take 325 mg by mouth daily with breakfast. - HYDROCHLOROTHIAZIDE 25 MG TAB Take one(1) tablet daily. - Cholecalciferol, Vitamin D3, (VITAMIN D) 25 mcg (1,000 unit) cap Take 1,000 Units by mouth once daily. - iv contrast (will be provided with radiology test) CT ABD/PEL -Inject, intravenously, once for 1 dose.No IV access, insert saline lock prior to the beginning of sedation, infusion, injection of imaging exam. Discontinue saline lock post exam. If Pt. has a central line or IVAD, may access for administration according to line specific nursing protocol. Once exam is complete flush line and de-access according to line specific nursing protocol in the CT contrast administration guidelines link. - CITALOPRAM 20 MG TAB Take one(1) tablet daily. - Aspirin 81 mg ORAL Tab Take one(1) tablet daily. - ZYRTEC 10 MG CHEWABLE TAB Take one(1) tablet daily. I have interviewed and (more content not included)... [facility] BRIEF OP NOTon 11-16-2021 BRIEF OP NOT HNO ID: [id number] Author: Don Minor MD Service: General Surgery Author Type: Resident Type: Brief Op Note Filed: 11/16/2021 2:35 PM Note Text: GENERAL SURGERY BRIEF OP NOTE LOG ID: [id number] Surgery/Procedure Date: 11/16/2021 Incision/Procedure Start Time: 12:11 PM Incision Close/Procedure End Time: 2:32 PM Surgeon(s) and Research & Analytics Manager(s): Surgeon(s) and Role: * Atif Mendez MD - Primary * Don Minor MD - Resident - Assisting No Additional Staff Procedure(s): Laparoscopic paraesophageal hernia repair, Eduardo gastroplasty, EGD Anesthesia: Choice - Anesthesia Consult Findings: Short intraabdominal esophageal length, GE junction below the diphragm on EGD, negative leak test Tubes/Drains: None Estimated Blood Loss: 30 mls Specimens: Stomach resection Wound Classification: Class 2, operative wound clean-contaminated, gastrointestinal/biliary tract entered without significant spillage Complications: None Pre-Op/Pre-Procedure Diagnosis: Pre-Op Diagnosis Codes: * Paraesophageal hernia [K44.9] Post-Op/Post-Procedure Diagnosis: Same SIGNATURE: Don Minor MD PATIENT NAME: Mary Goode DATE: November 16, 2021 TIME: 2:32 PM PAGER/CONTACT #: [phone] [facility] HISTORY PHYSICALon 2 HISTORY PHYSICAL HNO ID: [id number] Author: Don Minor MD Service: General Surgery Author Type: Resident Type: HANDP Filed: 11/16/2021 10:54 AM Note Text: Attestation signed by Atif Mendez MD at 11/18/2021 4:05 PM UPDATED HISTORY AND PHYSICAL EXAMINATION SERVICE DATE: 11/16/2021 SERVICE TIME: 10:54 AM PHYSICAL EXAM MUST BE COMPLETED ON ADMISSION The History and Physical (completed in the past 30 days) has been reviewed and the patient has been examined. The contents accurately reflect the patient's condition with the following additions or revisions since the HANDP was completed. Examination indicates no changes. LUNGS: Lungs clear to auscultation, Good diaphragmatic excursion CARDIAC: Normal S1 and S2; no rubs, murmurs, or gallops Provisional Diagnosis/Treatment Plan: Procedure(s) (LRB): LAPAROSCOPIC RPR PARAESOPHAGEAL HERNIA W/MESH (N/A) This HANDP can be found in the Electronic Medical Record . SIGNATURE: Don Minor MD PATIENT NAME: Mary Goode DATE: November 16, 2021 TIME: 10:54 AM Normal [facility] NURSING PROGon 11-16-2021 NURSING PROG HNO ID: [id number] Author: Renetta Quintana RN Service: Nursing Author Type: Registered Nurse Type: Nursing Progress Note Filed: 11/16/2021 4:23 PM Note Text: Nursing Progress Note Patient Name: Mary Goode [address]: [id number] ____ Transfer Note: Patient transferred into room/unit pk3-Pending sale to [facility] in stable condition. Actions taken: No futher actions taken at this time. Will continue to monitor and check with patient. This note was completed by: Renetta Quintana [facility] NURSING PROG HNO ID: [id number] Author: Arcelia Leal RN Service: Nursing Author Type: Registered Nurse Type: Nursing Progress Note Filed: 11/16/2021 11:08 AM Note Text: PATIENT EDUCATION TOPIC: PROCEDURE / SURGERY: Pre-op Teaching: Protocols PATIENT NAME: Mary Goode PATIENT LOCATION: [facility] OR POOL/[facility] OR POOL READINESS TO LEARN COGNITIVE ABILITY: Alert and oriented MOTIVATION TO LEARN: Interested FAMILY SUPPORT: None - Unavailable/disinterested INSTRUCTION PROVIDED TO: Patient PATIENT LEARNS BEST BY: Individual Instruction Verbal Instruction FACTORS AFFECTING LEARNING: None PHYSICAL LIMITATIONS AFFECTING LEARNING: None LEARNING RESPONSE DIAGNOSIS: ADULT: Well Adult PATIENT/FAMILY RESPONSE: Verbalizes understanding of: PRE-OPERATIVE INSTRUCTIONS-Correct action to take to follow pre-operative instructions METHOD OF INSTRUCTION: Individual instruction Verbal instruction FOLLOW-UP PLAN: Complete - No need for follow-up INSTRUCTIONAL AIDS USED: NA SUPPLEMENTAL MATERIAL PROVIDED TO PATIENT: None REFERRAL (RECOMMENDATION): None Electronically Signed By: Arcelia Leal [facility] OPERATIVE NOon 11-16-2021 OPERATIVE NO HNO ID: [id number] Author: Atif Mendez MD Service: General Surgery Author Type: Physician Type: Operative Report Filed: 11/23/2021 6:07 PM Note Text: [facility] - Operative Report MARY GOODE : 1950 AGE: 70. SEX: F PATIENT TYPE: I HOSP SVC: GENS LOCATION: [facility] ATTENDING PHYSICIAN: Atif Mendez MD CSN NUMBER: [id number] DATE OF SURGERY/PROCEDURE: 11/16/2021 INCISION/PROCEDURE START TIME: 12:11 PM INCISION CLOSE/PROCEDURE END TIME: 2:27 PM PREOPERATIVE DIAGNOSIS: Paraesophageal hernia. POSTOPERATIVE DIAGNOSIS: 1. Paraesophageal hernia. 2. Short esophagus. SURGEON: Atif Mendez MD PIG MACHINE OPERATOR: Don Pérez MD SURGERY/PROCEDURE: 1. Laparoscopic repair of paraesophageal hernia. 2. Laparoscopic posterior hiatoplasty. 3. Laparoscopic fundectomy. ANESTHESIA: General endotracheal anesthesia. COMPLICATIONS: None. ESTIMATED BLOOD LOSS: Less than 20 mL. SPECIMENS: Fundus of the stomach. WOUND CLASS: 2. INDICATION: Patient is a pleasant 70-year-old with a symptomatic paraesophageal hernia. Patient underwent an EGD, a manometry preoperatively. Given significant symptoms, patient was scheduled for surgery. OPERATIVE FINDINGS: 1. Proximal 3rd of the stomach was noted to be in the chest. 2. After complete release of the esophagus to the middle mediastinum, we were still not able to clearly able to get a centimeter of esophagus below the hiatus; a fundectomy was subsequently performed. 3. A 58-Sri Lankan bougie was used to guide the size of the esophagus. DESCRIPTION OF PROCEDURE: The patient was identified and brought to the operating room and placed supine on the operating table. General anesthesia was induced. The abdomen was prepped and draped in a surgical fashion. A 5 mm incision was made and Veress needle was used to obtain pneumoperitoneum. A 5 mm port was placed under Optiview. Under direct vision, a 12 mm port was placed in the left supraumbilical region, a 12 and a 5 mm port was placed on the right side. A 5 mm epigastric incision was made. The Pedro retractor was placed. The patient was placed in head-up position. The pars flaccida was then entered. Dissection was taken to the right beulah and from the right beulah over to the left beulah. The sac was completely dissected out. It was lowered into the abdomen. The retroesophageal dissection was performed and the fat pad was brought down. The [place] was passed from the right to the left side and was secured using a PDS Endoloop. Under downward traction, the esophagus was extensively mobilized all the way to the mid mediastinum to upper mediastinum. The vagi were visualized both anteriorly and posteriorly and preserved. No injury to the pleura or lungs was noted. Even after this complete dissection, the esophagus got to the hiatus and may be a little bit below it, but without any downward traction and appeared to have a short esophagus, we decided to perform a fundectomy. A 58-S[place] Lankan bougie was passed in the esophagus into the stomach. The fundectomy was performed using an Endo-VASQUEZ purple load with SeamGuard, 4 firings of the Endo-VASQUEZ purple load with SeamGuard was thus performed and this allowed us to take the fundus out. A small dog-ear was left at the top so as not to get close to the esophagus. The fundus was placed in the EndoCatch bag and retrieved through the 12 mm port site. The operative bed was inspected; no evidence of any bleeding or complications noted. Because the patient is a Jew, a Tisseel was used to spray in the operative bed. The 12 mm extraction port site was closed using a dymjmy-ml-oyagf stitch using Vicryl. The other 12 mm port site was closed using Vicryl. All the ports were removed under direct vision. The port sites were observed subsequent to removal of the ports through 1 of the 12 mm port sites to make sure there was no bleeding from the muscle, none was noted. Bilateral TAP block had been performed using bupivacaine and all the ports were removed under direct vision. The fascia was closed using the pre-placed suture. Skin was closed using Monocryl and SureClose. Patient tolerated the procedure without complications. I was present and scrubbed in throughout the operation. Atif Mendez MD TA:[id number] /[id number] Normal [facility] SURGICAL PATHOLOGYon 022 CASE REPORT Normal [facility] Comment on above: Order Comment: Speci men Type: TISSUE SPECIMENOrdering Facility: [facility] Address: [address] [place], [place] [id number] Result Comment: Surg ica Pathology Report Case: [id number] Authorizing Provider: Atif Mendez MD Collected: 11/16/2021 02:11 PM Ordering Location: [facility] Received: 11/16/2021 03:29 PM Operating Room Pathologist: Alba Neal MD Specimen: STOMACH RESECTION, Fundectomy Performed By: #### S ####[facility] LABCLIA [id number] [place] [id number] [facility] LABORATORYCLIA [id number] [address] FINAL DIAGNOSIS Normal [facility] Comment on above: Order Comment: Speci men Type: TISSUE SPECIMENOrdering Facility: [facility] Address: [address] [place], [place] [phone] Result Comment: Stom ach, excision: - Portion of stomach with fundic gland polyps. - No morphologic evidence of Helicobacter pylori microorganisms. Performed By: #### S ####[facility] LABCLIA [id number] [address] LABORATORYCLIA [id number] [address] FINAL PERFORMING LAB Normal [facility] Comment on above: Order Comment: Speci men Type: TISSUE SPECIMENOrdering Facility: [facility] Address: [address] [place] [address] Result Comment: Diag nostic interpretation performed at [facility], [address] [place] [address] CLIA# [id number] Ship Carpenter: Fer Avalos M.D. Performed By: #### S ####[facility] LABCLIA [id number] [address] LABORATORYCLIA [id number] [address] GROSS DESCRIPTION Normal [facility] Comment on above: Order Comment: Speci men Type: TISSUE SPECIMENOrdering Facility: [facility] Address: [address] [place] [address] Result Comment: A. S TOMACH RESECTION. Received in formalin designated fundectomy is a portion of stomach which measures 11.4 cm in length by 7.2 cm in circumference. Examination of the mucosal surface reveals approximately 26 sessile polyps which range in greatest dimension from 0.2 to 0.4 cm. The polyps grossly only involve the mucosal surface. No ulcerations are grossly appreciated. Sectioning does not reveal any masses or nodules. The serosal surface is oates and smooth. Air Intercept Controller sections are submitted as follows: A1 3 polyps totally submitted, A2 2 polyps totally submitted, A3 2 polyps totally submitted, A4 uninvolved gastric mucosa. BF November 17, 2021 9:13 AM Gross examination performed at [facility], [address] [place] [address] CLIA # [id number] Performed By: #### S ####[facility] LABCLIA [id number] [place] [address] [place] [facility]ITALFAIR[facility] LABORATORYCLIA [id number] [place] [address] [place] SARS-CoV-2 RNA Resp Ql CONRADO+p robeon 11-13-2021 SARS-CoV-2 (COVID-19) RNA CONRADO+probe Ql (Resp) COVID 19 RESULT: SARS-CoV-2 (Agent of COVID-19) Not Detected by RT-PCR or equivalent method. This test was developed and its performance characteristics determined by [facility]'s [facility] [place]. This test has been authorized by FDA under an Emergency Use Authorization (EUA). This test has been validated in accordance with the FDA's Guidance Document Policy for Diagnostics Testing in Laboratories Certified to Perform High Complexity Testing under CLIA prior to Emergency use Authorization for Coronavirus Disease 2019 during the Public Health Emergency issued on July 07, 2019. Test performed by [facility], [facility] Pathology and Laboratory Medicine [place], [facility] [place] [address]. Normal [facility] Comment on above: Performed By: #### 9 4500-6 ####[facility] LABCLIA [id number] [address] [place] CNOVon 11-12-2021 CNOV Office Visit ([id number] ) MARY GOODE ([id number]) 1950 F Date Time Provider Department 11/12/21 11:30 AM ATIF MENDEZ [id number] During your visit today, we recorded the following information about you: Temperature Pulse Blood pressure Weight 97.4 degrees 62/minute 140/63 78.5 kg Height 1.6 m Atif Mendez MD 11/12/2021 1:39 PM Signed SURGERY PREOPERATIVE VISIT NOTE Name: Mary Goode Medical Record: [id number] Encounter No.: [id number] Mary Goode is a 70 year old female seen in surgery clinic today for their final preoperative assessment. INTERVAL NOTE: Patient needed to discuss regarding surgery. She is currently scheduled for a paraesophageal hernia repair. 10/21/2021 CT A/P 10/16/2021 esophageal manometry View External Imaging - Miscellaneous Imaging [ID [id number]] 10/07/2021 UGI Scan on 10/27/2021 ?8:25 AM by External Provider: GI BMI 31 PLANNED PROCEDURE: Paraesophageal hernia repair, possible Monico fundoplication. Patient is a Jew. We have discussed regarding not doing a fundoplication if risk of recurrence is assessed to be on the higher side intraoperatively. PAST MEDICAL HISTORY: PAST MEDICAL HISTORY Diagnosis Date - Congenital hydrocephalus (HCC) s/p SECURITY AGENT shunt - Essential hypertension - ADITI (obstructive sleep apnea) - Patient is Jew PAST SURGICAL HISTORY: PAST SURGICAL HISTORY Procedure Laterality Date - APPENDECTOMY - COLONOSCOPY - EGD - HYSTERECTOMY HX 2008 - PAST SURGICAL HISTORY OF 2012 coil embolization for right renal aneurysm( [place]) - PAST SURGICAL HISTORY OF 2006 SECURITY AGENT shunt - PAST SURGICAL HISTORY OF partial right oophrectomy - PAST SURGICAL HISTORY OF Right Great toe - PAST SURGICAL HISTORY OF sinus surgery - TONSILLECTOMY HX SOCIAL HISTORY: Social History Tobacco Use - Smoking status: Never Smoker - Smokeless tobacco: Never Used Substance Use Topics - Alcohol use: Yes Comment: 1 drink monthly - Drug use: Never ALLERGIES: ALLERGIES No Known Allergies MEDICATIONS: Prior to Admission Medications: potassium chloride (K-TAB) 10 mEq tablet Take 10 mEq by mouth once daily. ibuprofen (MOTRIN) 800 mg tablet Take 800 mg by mouth. colesevelam (WELCHOL) 625 mg tablet Take 1,875 mg by mouth daily at bedtime. labetalol (TRANDATE) 200 mg tablet Take 200 mg by mouth once daily. lansoprazole (PREVACID) 30 mg capsule Take 30 mg by mouth once daily. sucralfate (CARAFATE) 1 gram tablet Take 1 g by mouth twice daily. losartan (COZAAR) 50 mg tablet Take 50 mg by mouth once daily. amLODIPine (NORVASC) 10 mg tablet Take 10 mg by mouth once daily. desvenlafaxine ER (KHEDEZLA) 50 mg 24 hr tablet Take 50 mg by mouth once daily. gabapentin (NEURONTIN) 300 mg capsule Take 300 mg by mouth as needed. ferrous sulfate (IRON) 325 mg (65 mg iron) tablet Take 325 mg by mouth daily with breakfast. Cholecalciferol, Vitamin D3, (VITAMIN D) 25 mcg (1,000 unit) cap Take 1,000 Units by mouth once daily. iv contrast (will be provided with radiology test) CT ABD/PEL -Inject, intravenously, once for 1 dose.No IV access, insert saline lock prior to the beginning of sedation, infusion, injection of imaging exam. Discontinue saline lock post exam. If Pt. has a central line or IVAD, may access for administration according to line specific nursing protocol. Once exam is complete flush line and de-access according to line specific nursing protocol in the CT contrast administration guidelines link. CITALOPRAM 20 MG TAB Take one(1) tablet daily. Aspirin 81 mg ORAL Tab Take one(1) tablet daily. HYDROCHLOROTHIAZIDE 25 MG TAB Take one(1) tablet daily. ZYRTEC 10 MG CHEWABLE TAB Take one(1) tablet daily. No current facility-administered medications for this visit. VISIT NOTE This patient was seen in clinic today to obtain informed consent, to discuss the details of their upcoming operation including the appropriate expectations for perioperative and postoperative care. In addition, preoperative and postoperative relevant prescriptions were provided and explained during this clinic visit. The consent discussion included the risks, benefits and anticipated outcomes of the procedure, the risks and benefits of the alternatives to the procedure, and the roles and tasks of the personnel to be involved. I have discussed with the patient regarding a laparoscopic possible open paraesophageal hernia repair with cruroplasty with mesh, possible Monico fundoplication, and possible gastropexy. I will also discussed operative endoscopy I have discussed the risks of surgery including infection, bleeding, injury to the esophagus, injury to stomach or spleen requiring conversion to open, injury to blood vessels causing significant blood loss, injury to lung with pneumothorax. I have discussed postoperative complications includ (more content not included)... Normal [facility] ECHOon 11-06-2021 Echocardiography Echocardiography Rep ort: Transthoracic Echo [facility] Date of service: 11/06/2021 10:21:38 AM ESTATE SERVICES ADMINISTRATOR Ordering physician: DOROTHY SPARROW Indication: Pre-op (non cardiac), murmur Technologist: Laura Ramirez Interpreting physician: Doris Ratliff MD PATIENT: Name: MS. MARY GOODE : 1950 Age: 70 years Gender: F History of hypertension. Primary rhythm: sinus. Height: 160.00 cm BSA: 1.89 m? Weight: 80.74 kg BMI: 31.5 kg/m? Heart rate 84 bpm Blood pressure 122/62 mmHg Color Doppler was utilized to interrogate the cardiac valves assessed and spectral Doppler was utilized to determine the flow velocities and pressure gradients reported in this exam. MEASUREMENTS: Value Indexed Normal Max aortic dimension 3.2 cm Ao < 3.8 Left atrial volume 61 ml (biplane A-L) 32 ml/m? Ileana <= 34 LV ID (diastole) 3.4 cm (2D) 1.80 cm/m? LV ID (systole) 2.2 cm (2D) 1.18 cm/m? IVS, leaflet tips 1.3 cm (2D) Posterior wall thickness 0.9 cm (2D) Left ventricular mass 113 g (2D) 60 g/m? LV stroke volume 42 ml (2D biplane) LV end diastolic volume 67 ml (2D biplane) 35.4 ml/m? 29<=EDVi<62 LV end systolic volume 25 ml (2D biplane) 13.1 ml/m? Ejection Fraction 63 % (2D biplane) EF > 54 FINDINGS: LEFT VENTRICLE The left ventricle is normal in size. There is mild upper septal left ventricular hypertrophy. Left ventricular systolic function is normal. Grade I left ventricular diastolic dysfunction. Mitral annular lateral E/e': 9.7. Mitral annular septal E/e': 9.7. Wall Motion: All scored segments are normal. RIGHT VENTRICLE The right ventricle is normal in size. Right ventricular systolic function is normal. RV systolic tissue Doppler velocity is 16.0 cm/s. Tricuspid annular displacement is 1.9 cm. Estimated right ventricular systolic pressure is likely underestimated due to a weak or incomplete tricuspid regurgitation signal and is, at least, 25 mmHg consistent with normal pulmonary artery pressures. Estimated right atrial pressure is 3 mmHg based on IVC assessment. LEFT ATRIUM The left atrial cavity is normal in size. RIGHT ATRIUM The right atrial cavity is normal in size. Inferior Vena Cava: The inferior vena cava appears normal measuring 1.7 cm. The vessel decreases greater than 50 percent with inspiration. MITRAL VALVE There is trace mitral valve regurgitation. There is mild thickening. The pressure half time is 53 msec. The peak mitral E/A ratio is 1.07. The average mitral E/e' ratio is 9.7. The mitral flow deceleration time is 183 msec. TRICUSPID VALVE The tricuspid valve leaflets are structurally normal. There is trace tricuspid valve regurgitation. AORTIC VALVE The aortic valve cusps are structurally normal. There is no aortic valve regurgitation. Tricuspid aortic valve. PULMONIC VALVE The pulmonic valve cusps are structurally normal. There is mild (1+) pulmonic valve regurgitation. AORTA The visualized aorta is normal in size. Measurements - Mid ascending aorta 3.2 cm. PULMONARY ARTERIES The pulmonary arteries are normal. INTERATRIAL SEPTUM There is no evidence of intracardiac shunting as detected by Doppler. INTERVENTRICULAR SEPTUM The interventricular septum is normal. PERICARDIUM There is a trivial pericardial effusion. There is an epicardial fat pad. CONCLUSIONS: - Exam indication: Pre-op (non cardiac), murmur - The left ventricle is normal in size. There is mild upper septal left ventricular hypertrophy. Left ventricular systolic function is normal. EF = 63 ? 5% (2D biplane) Grade I left ventricular diastolic dysfunction. - The right ventricle is normal in size. Right ventricular systolic function is normal. - The patient has not had a prior CC echocardiographic exam for comparison. * * * Final * * * [id number] icsSISUID Normal [facility] CBC panel Auto (Bld)on 11-03 Erythrocyte distribution width (RBC) [Ratio] 12.5 % Normal 11.5-15.0 [facility] Comment on above: Order Comment: Speci men Type: BLOOD SPECIMENOrdering Facility: [facility] Address: [address], [address] Performed By: #### 5 8410-2 ####[facility] LABCLIA [id number] [place] [address] [place] Hematocrit (Bld) [Volume fraction] 36.7 % Normal 36.0-46.0 [facility] Comment on above: Order Comment: Speci men Type: BLOOD SPECIMENOrdering Facility: [facility] Address: [address] [place] [address] Performed By: #### 5 8410-2 ####[facility] LABCLIA [id number] [place] [address] [place] Hemoglobin (Bld) [Mass/Vol] 12.3 g/dL Normal 11.5-15.5 [facility] Comment on above: Order Comment: Speci men Type: BLOOD SPECIMENOrdering Facility: [facility] Address: [address] [place] [address] Performed By: #### 5 8410-2 ####[facility] LABIA [id number] [place] [address] [place] MCH (RBC) [Entitic mass] 30.0 pg Normal 26.0-34.0 [facility] Comment on above: Order Comment: Speci men Type: BLOOD SPECIMENOrdering Facility: [facility] Address: [address] [place], [place] [address] Performed By: #### 5 8410-2 ####[facility] LABCLIA [id number] [place] [address] [place] MCHC (RBC) [Mass/Vol] 33.5 g/dL Normal 30.5-36.0 [facility] Comment on above: Order Comment: Speci men Type: BLOOD SPECIMENOrdering Facility: [facility] Address: [address] [place], [place] [address] Performed By: #### 5 8410-2 ####[facility] LABCLIA [id number] [address] [address] [place] MCV (RBC) [Entitic vol] 89.5 fL Normal 80.0-100.0 [facility] Comment on above: Order Comment: Speci men Type: BLOOD SPECIMENOrdering Facility: [facility] Address: [address] [place] [address] Performed By: #### 5 8410-2 ####[facility] LABCLIA [id number] [place] [address] [place] Nucleated RBC (Bld) [#/Vol] 10*3/uL Normal <0.01 [facility] Comment on above: Order Comment: Speci men Type: BLOOD SPECIMENOrdering Facility: [facility] Address: [address] [place] [address] Performed By: #### 5 8410-2 ####[facility] LABIA [id number] [place] [address] [place] Platelet mean volume (Bld) [Entitic vol] 9.3 fL Normal 9.0-12.7 [facility] Comment on above: Order Comment: Speci men Type: BLOOD SPECIMENOrdering Facility: [facility] Address: [address] [place] [address] Performed By: #### 5 8410-2 ####[facility] LABIA [id number] [place] [address] [place] Platelets (Bld) [#/Vol] 331 10*3/uL Normal 150-400 [facility] Comment on above: Order Comment: Speci men Type: BLOOD SPECIMENOrdering Facility: [facility] Address: [address] [place] [address] Performed By: #### 5 8410-2 ####[facility] LABCLIA [id number] [place] [address] [place] RBC (Bld) [#/Vol] 4.10 10*6/uL Normal 3.90-5.20 [facility] Comment on above: Order Comment: Speci men Type: BLOOD SPECIMENOrdering Facility: [facility] Address: [address] [place] [address] Performed By: #### 5 8410-2 ####[facility] LABCLIA [id number] [address] [place] WBC (Bld) [#/Vol] 7.53 10*3/uL Normal 3.70-11.00 [facility] Comment on above: Order Comment: Speci men Type: BLOOD SPECIMENOrdering Facility: [facility] Address: [address] [place] [address] Performed By: #### 5 8410-2 ####[facility] LABCLIA [id number] [address] [place] [facility] MARY GOODE ([id number]) 1950 [facility] Date Time Provider Department 11/03/21 ATIF MENDEZ [facility] During your visit today, we recorded the following information about you: Gee Meeks Ma 11/03/2021 10:41 AM Signed Patient is in need of Echo before 11/16 for surgery. Is anyone able to assist in getting the patient in for this? Gee Meeks Ma 11/04/2021 2:50 PM Signed Patient scheduled 11/06 in [facility] for ECHO Allergies As of Date: 11/03/2021 (No Known Allergies) Date Reviewed: 11/03/2021 Reviewed by: Dorothy Sparrow APRN.COIL REWIND MACHINE OPERATOR - Fully Assessed Reason for Visit: Orders [681] Prescriptions as of 11/04/2021 - potassium chloride (K-TAB) 10 mEq tablet Take 10 mEq by mouth once daily. - ibuprofen (MOTRIN) 800 mg tablet Take 800 mg by mouth. - colesevelam (WELCHOL) 625 mg tablet Take 1,875 mg by mouth daily at bedtime. - labetalol (TRANDATE) 200 mg tablet Take 200 mg by mouth once daily. - lansoprazole (PREVACID) 30 mg capsule Take 30 mg by mouth once daily. - sucralfate (CARAFATE) 1 gram tablet Take 1 g by mouth twice daily. - losartan (COZAAR) 50 mg tablet Take 50 mg by mouth once daily. - amLODIPine (NORVASC) 10 mg tablet Take 10 mg by mouth once daily. - desvenlafaxine ER (KHEDEZLA) 50 mg 24 hr tablet Take 50 mg by mouth once daily. - gabapentin (NEURONTIN) 300 mg capsule Take 300 mg by mouth as needed. - ferrous sulfate (IRON) 325 mg (65 mg iron) tablet Take 325 mg by mouth daily with breakfast. - Cholecalciferol, Vitamin D3, (VITAMIN D) 25 mcg (1,000 unit) cap Take 1,000 Units by mouth once daily. - iv contrast (will be provided with radiology test) CT ABD/PEL -Inject, intravenously, once for 1 dose.No IV access, insert saline lock prior to the beginning of sedation, infusion, injection of imaging exam. Discontinue saline lock post exam. If Pt. has a central line or IVAD, may access for administration according to line specific nursing protocol. Once exam is complete flush line and de-access according to line specific nursing protocol in the CT contrast administration guidelines link. - CITALOPRAM 20 MG TAB Take one(1) tablet daily. - Aspirin 81 mg ORAL Tab Take one(1) tablet daily. - HYDROCHLOROTHIAZIDE 25 MG TAB Take one(1) tablet daily. - ZYRTEC 10 MG CHEWABLE TAB Take one(1) tablet daily. 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] 05/17/2005 ABNORMALITY OF GAIT [R26.9] 08/19/2005 Refusal of blood transfusions as patient is Jeh* CKD (chronic kidney disease) stage 3, GFR 30-59* Essential hypertension [I10] ADITI (obstructive sleep apnea) [G47.33] Anxiety [F41.9] Murmur [R01.1] Encounter Status:Closed by GEE MEEKS MA on 11/04/21 Normal [facility] Comprehensive metabolic 2000 panelon 11-03-2021 Albumin [Mass/Vol] 4.6 g/dL Normal 3.9-4.9 [facility] Comment on above: Order Comment: Speci men Type: BLOOD SPECIMENOrdering Facility: [facility] Address: [address] [place] [address] Performed By: #### 2 4323-8 ####[facility] LABCLIA [id number] [place] [address] [place] ALP [Catalytic activity/Vol] 91 U/L Normal 34-123 [facility] Comment on above: Order Comment: Speci men Type: BLOOD SPECIMENOrdering Facility: [facility] Address: [address] [place] [address] Performed By: #### 2 4323-8 ####MELISSA [facility] LABCLIA [id number] [place] [address] [place] ALT [Catalytic activity/Vol] 16 U/L Normal 7-38 [facility] Comment on above: Order Comment: Speci men Type: BLOOD SPECIMENOrdering Facility: [facility] Address: [address] [address] Performed By: #### 2 4323-8 ####[facility] LABCLIA [id number] [place] [address] [place] Anion gap [Moles/Vol] 9 mmol/L Normal 9-18 [facility] Comment on above: Order Comment: Speci men Type: BLOOD SPECIMENOrdering Facility: [facility] Address: [address] [address] Performed By: #### 2 4323-8 ####[facility] LABCLIA [id number] [place] [address] [place] AST [Catalytic activity/Vol] 17 U/L Normal 13-35 [facility] Comment on above: Order Comment: Speci men Type: BLOOD SPECIMENOrdering Facility: [facility] Address: [address] [place] [address] Performed By: #### 2 4323-8 ####[facility] LABCLIA [id number] [place] [address] [place] Bilirubin [Mass/Vol] 0.6 mg/dL Normal 0.2-1.3 [facility] Comment on above: Order Comment: Speci men Type: BLOOD SPECIMENOrdering Facility: [facility] Address: [address] [place] [address] Performed By: #### 2 4323-8 ####[facility] LABIA [id number] [place] [address] [place] Calcium [Mass/Vol] 10.3 mg/dL High 8.5-10.2 [facility] Comment on above: Order Comment: Speci men Type: BLOOD SPECIMENOrdering Facility: [facility] Address: [address] [place] [address] Performed By: #### 2 4323-8 ####[facility] LABCLIA [id number] [place] [address] [place] Chloride [Moles/Vol] 98 mmol/L Normal 97-105 [facility] Comment on above: Order Comment: Speci men Type: BLOOD SPECIMENOrdering Facility: [facility] Address: [address] [place] [address] Performed By: #### 2 4323-8 ####[facility] LABCLIA [id number] [place] [address] [place] CO2 [Moles/Vol] 27 mmol/L Normal 22-30 [facility] Comment on above: Order Comment: Speci men Type: BLOOD SPECIMENOrdering Facility: [facility] Address: [address] [place] [address] Performed By: #### 2 4323-8 ####[facility] LABCLIA [id number] [place] [address] [place] Creatinine [Mass/Vol] 1.05 mg/dL High 0.58-0.96 [facility] Comment on above: Order Comment: Speci men Type: BLOOD SPECIMENOrdering Facility: [facility] Address: [address] [place] [address] Performed By: #### 2 4323-8 ####[facility] LABCLIA [id number] [address] [place] ESTIMATED GLOMERULAR FILTRATION RATE 58 mL/min/1.73m??? Low >=60 [facility] Comment on above: Order Comment: Speci men Type: BLOOD SPECIMENOrdering Facility: [facility] Address: [address] [place] [address] Result Comment: Gabriela mated Glomerular Filtration Rate (eGFR) is calculated using the 2020 CKD-EPI creatinine equation. This equation utilizes serum creatinine, sex, and age as parameters. The creatinine assay has traceable calibration to isotope dilution-mass spectrometry. Refer to KDIGO guidelines for clinical interpretation. In patients with unstable renal function, e.g. those with acute kidney injury, the eGFR may not accurately reflect actual GFR. Performed By: #### 2 4323-8 ####[facility] LABCLIA [id number] [place] [address] [place] Glucose [Mass/Vol] 108 mg/dL High 74-99 [facility] Comment on above: Order Comment: Speci men Type: BLOOD SPECIMENOrdering Facility: [facility] Address: [address] [place] [address] Result Comment: The [place] Diabetes Association (ADA) provides guidance for cutoff values for fasting glucose and random glucose. The ADA defines fasting as no caloric intake for at least 8 hours. Fasting plasma glucose results between 100 to 125 mg/dL indicate increased risk for diabetes (prediabetes). Fasting plasma glucose results greater than or equal to 126 mg/dL meet the criteria for diagnosis of diabetes. In the absence of unequivocal hyperglycemia, results should be confirmed by repeat testing. In a patient with classic symptoms of hyperglycemia or hyperglycemic crisis, random plasma glucose results greater than or equal to 200 mg/dL meet the criteria for diagnosis of diabetes. Reference: Standards of Medical Care in Diabetes 2016, [place] Diabetes Association. Diabetes Care. 2016.39(Suppl 1). Performed By: #### 2 4323-8 ####[facility] LABCLIA [id number] [place] [address] [place] Potassium [Moles/Vol] 4.3 mmol/L Normal 3.7-5.1 [facility] Comment on above: Order Comment: Speci men Type: BLOOD SPECIMENOrdering Facility: [facility] Address: [address] [address] Performed By: #### 2 4323-8 ####[facility] LABIA [id number] [place] [address] [place] Protein [Mass/Vol] 7.2 g/dL Normal 6.3-8.0 [facility] Comment on above: Order Comment: Speci men Type: BLOOD SPECIMENOrdering Facility: [facility] Address: [address] [address] Performed By: #### 2 4323-8 ####[facility] LABIA [id number] [place] [address] [place] Sodium [Moles/Vol] 134 mmol/L Low 136-144 [facility] Comment on above: Order Comment: Speci men Type: BLOOD SPECIMENOrdering Facility: [facility] Address: [address] [address] Performed By: #### 2 4323-8 ####[facility] LABCLIA [id number] [place] [address] [place] [facility] Urea nitrogen [Mass/Vol] 19 mg/dL Normal 7-21 [facility] Comment on above: Order Comment: Speci men Type: BLOOD SPECIMENOrdering Facility: [facility] Address: [facility] [address] Performed By: #### 2 4323-8 ####[facility] LABCLIA [id number] [address] [place] HISTORY PHYSICALon HISTORY PHYSICAL HNO ID: [id number] Author: Dorothy Sparrow 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 Author Type: Nurse Practitioner Type: HANDP Filed: 11/10/2021 3:22 PM Note Text: HISTORY AND PHYSICAL EXAMINATION SERVICE DATE: 11/03/2021 SERVICE TIME: 3:22 PM PRIMARY CARE PHYSICIAN: Monika Guerrero MD REASON FOR VISIT: Mary Goode is a 70 year old female who is scheduled for Procedure(s): LAPAROSCOPIC RPR PARAESOPHAGEAL HERNIA W/MESH (N/A) at the request of Dr. Atif Mendez for consultation. My final recommendation will be communicated back to the requesting physician by way of shared medical record or letter. Subjective COVID-19 Immunization Status Overdue - COVID-19 VACCINE (4 - Booster for Moderna series) Overdue since 07/09/2021 03/11/2021 Imm Admin: COVID-19 vaccine, full dose (MODERNA) 08/10/2020 Imm Admin: COVID-19 vaccine, full dose (MODERNA) 07/11/2020 Imm Admin: COVID-19 vaccine, full dose (MODERNA) CHIEF COMPLAINT: hernia HPI: Pt. 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 Evaluation including EGD performed;Pt. is recommended for surgery. Pt. denies any difficulty swallowing. REVIEW OF SYSTEMS: General: No weight loss, malaise or fevers. Neurological: HCP s/p SECURITY AGENT shunt Negative for: delirium, dementia, headaches, seizures and strokes. Respiratory: Positive for: obstructive sleep apnea and CPAP/BiPAP compliant. Negative for: asthma, current cough, bronchodilator used daily for the last 3 months, dyspnea, pneumonia within 6 weeks, tobacco use and URI < 2 weeks. Cardiovascular: Positive for: hypertension Negative for: CAD, chest pain, CHF, DVT/PE, recent MS and murmur/valvular heart disease. GI: See HPI. Negative for: dysphagia, liver disease and pancreatitis. : Positive for: renal failure. Patient's renal failure is chronic. Negative for: dysuria, hematuria and urinary tract infection. 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 Endocrine: No history of diabetes. Has not taken steroids within the past 30 days. No history of endocrinological symptoms or problems. Hematology: Positive for: chronic anti-coagulation/platelet meds. Patient is on anti-coagulation/platelet medication(s): Aspirin (preventive). Negative for: thrombocytopenia. Oncology: skin cancer Psych: Positive for: anxiety. Musculoskeletal: Positive for: back pain. Skin: Negative for lesions, rash and itching. PAST MEDICAL HISTORY Diagnosis Date - Congenital hydrocephalus (HCC) s/p SECURITY AGENT shunt - Essential hypertension - ADITI (obstructive sleep apnea) - Patient is Jew PAST SURGICAL HISTORY Procedure Laterality Date - APPENDECTOMY - COLONOSCOPY - EGD - HYSTERECTOMY HX 2008 - PAST SURGICAL HISTORY OF 2012 coil embolization for right renal aneurysm( [place]) - PAST SURGICAL HISTORY OF 2006 SECURITY AGENT shunt - PAST SURGICAL HISTORY OF partial right oophrectomy - PAST SURGICAL HISTORY OF Right Great toe - PAST SURGICAL HISTORY OF sinus surgery - TONSILLECTOMY HX FAMILY HISTORY Problem Relation Age of Onset - Cancer Mother rectal - Heart disease Father Social History Tobacco Use - Smoking status: Never Smoker - Smokeless tobacco: Never Used Substance Use Topics - Alcohol use: Yes Comment: 1 drink monthly - Drug use: Never Prior to Admission medications as of 11/03/21 1015 Medication Sig Last Dose Taking potassium chloride (K-TAB) 10 mEq tablet Take 10 mEq by mouth once daily. Taking Yes colesevelam (WELCHOL) 625 mg tablet Take 1,875 mg by mouth daily at bedtime. Taking Yes labetalol (TRANDATE) 200 mg tablet Take 200 mg by mouth once daily. Taking Yes lansoprazole (PREVACID) 30 mg capsule Take 30 mg by mouth once daily. Taking Yes sucralfate (CARAFATE) 1 gram tablet Take 1 g by mouth twice daily. Taking Yes losartan (COZAAR) 50 mg tablet Take 50 mg by mouth once daily. Taking Yes amLODIPine (NORVASC) 10 mg tablet Take 10 mg by mouth once daily. Taking Yes desvenlafaxine ER (KHEDEZLA) 50 mg 24 hr tablet Take 50 mg by mouth once daily. Taking Yes gabapentin (NEURONTIN) 300 mg capsule Take 300 mg by mouth as needed. Taking Yes ferrous sulfate (IRON) 325 mg (65 mg iron) tablet Take 325 mg by mouth daily with breakfast. Taking Yes Cholecalciferol, Vitamin D3, (VITAMIN D) 25 mcg (1,000 unit) cap Take 1,000 Units by mouth once daily. Taking Yes CITALOPRAM 20 MG TAB Take one(1) tablet daily. Taking Yes Aspirin 81 mg ORAL Tab Take one(1) tablet daily. Taking Yes HYDROCHLOROTHIAZIDE 25 MG TAB Take one(1) tablet daily. Taking Yes ZYRTEC 10 MG CHEWABLE TAB Take one(1) tablet daily. Taking Yes ibuprofen (MOTRIN) 800 mg tablet Take 800 mg by mouth. iv contrast (will be provided with radiology test) CT ABD/PEL -Inject, intravenously, once for 1 dose.No IV access, insert saline lock prior to the beginning of sedat (more content not included)... Normal [facility] 10-23-2021 [facility] Telephone ([id number]) MARY GOODE ([id number]) 1950 F Date Time Provider Department 10/23/21 ATIF MENDEZ [id number] During your visit today, we recorded the following information about you: [facility] 10/23/2021 12:05 PM Signed Requested reports from [facility]. Sent fax to [phone] -Manometry 6.10.22 -Upper GI 6..22 [facility] Jonathon Dobson 10/27/2021 3:59 PM Signed Records received and scanned.on 10/27 listed under GI and external imaging Misc. Not sure who scanned these. Thanks! Allergies As of Date: 10/23/2021 (No Known Allergies) Date Reviewed: 10/01/2021 Reviewed by: Yolanda Castro MA - Fully Assessed Reason for Visit: Request Outside Medical Records [[id number]] Prescriptions as of 10/27/2021 - labetalol (TRANDATE) 200 mg tablet Take 200 mg by mouth once daily. - lansoprazole (PREVACID) 30 mg capsule Take 30 mg by mouth once daily. - sucralfate (CARAFATE) 1 gram tablet Take 1 g by mouth twice daily. - losartan (COZAAR) 50 mg tablet Take 50 mg by mouth once daily. - amLODIPine (NORVASC) 10 mg tablet Take 10 mg by mouth once daily. - desvenlafaxine ER (KHEDEZLA) 50 mg 24 hr tablet Take 50 mg by mouth once daily. - gabapentin (NEURONTIN) 300 mg capsule Take 300 mg by mouth as needed. - ferrous sulfate (IRON) 325 mg (65 mg iron) tablet Take 325 mg by mouth daily with breakfast. - Cholecalciferol, Vitamin D3, (VITAMIN D) 25 mcg (1,000 unit) cap Take 1,000 Units by mouth once daily. - iv contrast (will be provided with radiology test) CT ABD/PEL -Inject, intravenously, once for 1 dose.No IV access, insert saline lock prior to the beginning of sedation, infusion, injection of imaging exam. Discontinue saline lock post exam. If Pt. has a central line or IVAD, may access for administration according to line specific nursing protocol. Once exam is complete flush line and de-access according to line specific nursing protocol in the CT contrast administration guidelines link. - aliskiren hemifumarate(TEKTURNA 150 MG TAB) Take one(1) tablet daily. - CITALOPRAM 20 MG TAB Take one(1) tablet daily. - Aspirin 81 mg ORAL Tab Take one(1) tablet daily. - HYDROCHLOROTHIAZIDE 25 MG TAB Take one(1) tablet daily. - METOPROLOL 25 MG TAB Take one(1) tablet two(2) times daily. - ZYRTEC 10 MG CHEWABLE TAB Take one(1) tablet daily. - ZOCOR 20 MG TAB Take one(1) tablet daily at bedtime. - RHINOCORT AQUA 32 MCG/ACTUATION NASAL SPRAY PRN Problem List As Of Date 10/23/2021 Noted Resolved CONGENITAL HYDROCEPHALUS [Q03.9] 02/08/2005 COMMUNICAT HYDROCEPHALUS [G91.0] 05/17/2005 ABNORMALITY OF GAIT [R26.9] 08/19/2005 Encounter Status:Closed by JONATHON DOBSON on 10/27/21 Normal [facility] CREATININE BLDon 10-21-2021 Creatinine [Mass/Vol] 1.04 mg/dL High 0.58-0.96 [facility] Comment on above: Order Comment: Param jarquin Type: BLOOD SPECIMENOrdering Facility: [facility] Address: [address] [place] [address] Performed By: #### C RET1 ####[facility] LABCLIA [id number] [place] [address] ESTIMATED GLOMERULAR FILTRATION RATE 59 mL/min/1.73m??? Low >=60 [facility] Comment on above: Order Comment: Param jarquin Type: BLOOD SPECIMENOrdering Facility: [facility] Address: [address] [place] [address] Result Comment: Gabriela mated Glomerular Filtration Rate (eGFR) is calculated using the 2020 CKD-EPI creatinine equation. This equation utilizes serum creatinine, sex, and age as parameters. The creatinine assay has traceable calibration to isotope dilution-mass spectrometry. Refer to KDIGO guidelines for clinical interpretation. In patients with unstable renal function, e.g. those with acute kidney injury, the eGFR may not accurately reflect actual GFR. Performed By: #### C RET1 ####[facility] LABCLIA [id number] [place] [address] CT ABD/PEL W IVCONon 022 CT ABD/PEL W IVCON * * *Final Report* * * DATE OF EXAM: Oct 21 2021 9:23AM [facility] 0530 - CT ABD/PEL W IVCON / PROCEDURE REASON: Paraesophageal hernia * * * * Physician Interpretation * * * * RESULT: EXAMINATION: CT ABDOMEN AND PELVIS WITH IV CONTRAST CLINICAL HISTORY: Paraesophageal hernia TECHNIQUE: CT of the abdomen and pelvis was performed using standard technique, scanning from just above the dome of the diaphragm to the symphysis pubis. MQ: CTAP_3 Contrast: IV: 125 ml of Omnipaque 300 CT Radiation dose: Integrated Dose-length product (DLP) for this visit = 1093 mGy*cm. CT Dose Reduction Employed: mAs-kVp adjusted based on patient size-age COMPARISON: None. RESULT: Liver: Normal liver morphology. Subcentimeter hepatic hypodensities are too small to characterize. No suspicious hepatic masses. Biliary: No bile duct dilation. Gallbladder is unremarkable. Spleen: No mass. No splenomegaly. Pancreas: No mass or duct dilation. Adrenals: No mass. Kidneys: The left kidney is unremarkable. There is cortical atrophy involving the right renal lower pole. Embolic coils in the region of the right renal artery are again noted. GI tract: There is a moderate-sized hiatal hernia. The bowel is normal in caliber and without evidence of wall thickening or obstruction. There are scattered colonic diverticula, without associated inflammation. Lymph nodes: No abdominal or pelvic lymphadenopathy. Mesentery/Peritoneum: No ascites or mass. Ventriculoperitoneal shunt tubing is identified coursing along the anterior thoracicoabdominal wall, extending into the left upper abdominal peritoneum, loops within the left pelvis, and terminates within the right upper quadrant. Shunt tubing courses anterior to the proximal gastric body (series 2, image 38). Shunt tubing is intact. No additional catheters are identified. Retroperitoneum: No mass. Vasculature: - Abdominal aorta and iliac arteries: No aneurysm. - Celiac and SMA: Patent without stenosis. - Portal venous system (SMV, splenic vein, portal vein and branches): Patent. - Hepatic veins: Patent. Pelvis: No mass, ascites or fluid collection. Bones/Soft Tissues: Degenerative changes involve the lumbar spine. There are no acute osseous abnormalities. Lower thorax: Unremarkable. Leadite Heater (topogram) images: No additional findings. IMPRESSION: 1. No acute abnormalities within the abdomen/pelvis. 2. Moderate-sized hiatal hernia. 3. The inferior aspect of the ventriculoperitoneal shunt tubing is intact, as detailed within the results section. Transcribe Date/Time: Oct 21 2021 11:13A Dictated by: RACHID GALEANO MD This examination was interpreted and the report reviewed and electronically signed by: RACHID GALEANO MD on Oct 21 2021 11:35AM EST Thank you for allowing us to participate in the care of your patient. Should there be any questions regarding this interpretation, please call [phone]. If you are unable to reach us at the number above, please feel free to contact [facility] eRadiology at [phone]. [id number] Normal [facility] CNOVon 10-01-2021 CNOV Office Visit ([id number] ) SHANAMARY BUCIO ([id number]) 1950 F Date Time Provider Department 10/01/21 10:30 AM ATIF MENDEZ [id number] During your visit today, we recorded the following information about you: Pulse Blood pressure Weight Height 70/minute 122/57 80.7 kg 1.651 m Yolanda Castro MA 10/01/2021 10:32 AM Signed What is the reason for your visit today? New patient referred for uncontrolled GERD and large hiatal hernia. Who is your referring physician? Dr. Ramirez Are you having poor oral intake? Yes cannot eat certain foods. Have you had unintentional weight loss of 15 lbs/7 Kg in the last 3-6 months? NO Bowels: Varies Wound: None Temperature: No Drains: No Atif Mendez MD 10/07/2021 8:44 PM Addendum NEW [place]EG[place] PATIENT PATIENT NAME: Mray Goode REASON FOR CONSULT: Hiatal hernia REQUESTING PHYSICIAN: Dr. 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 Patient reports heart burn, excess salivation and occasional regurgitaion. She denies any ALARM features including weight loss, GIB, odynyophagia or dysphagia. Her PSH include open appendectomy, JUANI, and SECURITY AGENT shunt placement. The patient's most recent EGD was done in 09/03 and the report is included below Chart Review: -hx: worsening GERD - referred by Dr. Ramirez for GERD/Hiatal Hernia Scan on 09/03/2021 ?9:36 AM by Jonathon Dobson: [facility] progress note 07/22/2021 Dr. Ramirez - 08/06/2021 EGD Scan on 09/03/2021 ?9:35 AM by Jonathon Dobson: [facility] EGD 08/06/2021 Dr. Ramirez -09/17/2015 EGD Scan on 09/03/2021 ?9:33 AM by Jonathon Dobson: [facility] Operative report 09/17/2015 Dr. Walter Difficulty swallowing / foods sticking in throat:No Heartburn: Yes Chronic cough: No Regurgitation: Yes} Chest pain: No Filling up quickly at meals:No Loss of appetite:No Nausea: No Vomiting: Yes Abdominal pain:No Recent change in weight:No Dysphagia:No PAST MEDICAL HISTORY: No past medical history on file. PAST SURGICAL HISTORY: No past surgical history on file. FAMILY HISTORY: No family history on file. SOCIAL HISTORY: Social History Tobacco Use - Smoking status: Never Smoker - Smokeless tobacco: Not on file Substance Use Topics - Alcohol use: Not on file - Drug use: Not on file Review of Systems: The remainder of the review of systems is negative. PHYSICAL EXAMINATION: BP 122/57 (BP Site: Left Arm, BP Position: Sitting, BP Cuff Size: Regular Adult) Pulse 70 Ht 165.1 cm (5' 5 ) Wt 80.7 kg (178 lb) LMP 05/31/2006 SpO2 97% BMI 29.62 kg/m? General appearance: Well appearing, alert, in no acute distress, well-hydrated, well nourished. Skin: Skin color, texture, turgor normal, no suspicious rashes or lesions Head: Normocephalic, no masses, lesions, tenderness or abnormalities Eyes: Anicteric sclera. Pupils are equally round and reactive to light. Extraocular movements are intact. Ears: External ears normal, canals clear Nose/Sinuses: Nares normal, septum midline, mucosa normal, no drainage or sinus tenderness Oropharynx: Lips, mucosa, and tongue normal, teeth and gums normal, oropharynx normal Neck: Supple, no adenopathy; thyroid symmetric, normal size, no bruits Back: Normal exam Lungs: Lungs clear to auscultation. No wheezing, rhonchi, rales. Heart: RRR without murmur, gallop, or rubs. No ectopy Abdomen: Normal abdominal exam, Abdomen soft, non-tender. Bowel sounds normal. No masses, organomegaly. Healed incision from previous open appendectomy and JUANI. Extremities: No deformities, edema, skin discoloration, clubbing or cyanosis. Good capillary refill. Musculoskeletal: No joint swelling, deformity, or tenderness Peripheral pulses: Normal Neuro: Gait normal. Reflexes normal and symmetric. Sensation grossly intact. 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 - Follow up Manometry and UGI. Plan: Mary Goode is a 70 year old female who was referred to me by Dr. Ramirez for a paraesophageal hernia. Patient was worked up for severe foregut symptoms including severe acid reflux, significant regurgitation, cough and sore throat and underwent an EGD that noted a paraesophageal hernia. She has had the s (more content not included)... Normal [facility] Faisal 09-03-2021 [facility] Telephone ([id number]) MARY GOODE ([id number]) 1950 F [place] Date Time Provider Department 09/03/21 ATIF MENDEZ [id number] During your visit today, we recorded the following information about you: Jonathon Dobson 09/03/2021 9:39 AM Signed Received medical records from Dr. Ramirez. Progress Note 07/22/2021 EGD [id number] Old Operative Report 09/17/2015 Please review. Allergies As of Date: 09/03/2021 (No Known Allergies) Date Reviewed: 03/07/2013 Reviewed by: Griselda (Rn) MINDY Valdes - Fully Assessed Reason for Visit: Received Outside Medical Records [[id number]] Prescriptions as of 09/07/2021 - aliskiren hemifumarate(TEKTURNA 150 MG TAB) Take one(1) tablet daily. - CITALOPRAM 20 MG TAB Take one(1) tablet daily. - Aspirin 81 mg ORAL Tab Take one(1) tablet daily. - HYDROCHLOROTHIAZIDE 25 MG TAB Take one(1) tablet daily. - METOPROLOL 25 MG TAB Take one(1) tablet two(2) times daily. - ZYRTEC 10 MG CHEWABLE TAB Take one(1) tablet daily. - ZOCOR 20 MG TAB Take one(1) tablet daily at bedtime. - RHINOCORT AQUA 32 MCG/ACTUATION NASAL SPRAY PRN Problem List As Of Date 09/03/2021 Noted Resolved CONGENITAL HYDROCEPHALUS [Q03.9] 02/08/2005 COMMUNICAT HYDROCEPHALUS [G91.0] 05/17/2005 ABNORMALITY OF GAIT [R26.9] 08/19/2005 Encounter Status:Closed by RIKY MOURA RN on 09/07/21 Normal [facility] Consent for Treatmenton 12-0 Consent for Treatment [id number]#[id number]:127 Normal [facility] Consent for COVID Vaccineon 03-22-2021 SARS-CoV-2 (COVID-19) RNA CONRADO+probe Ql (Unsp spec) [id number]#1.00CD:127 Normal [facility] Coding Summary.on 03-12-2021 Coding Summary. CD:[id number] Gh0bWw+PGhlY WQ+YK1RYYSfK36tuYSasO8QY5kNWR0RD TURZRCDQN8OWX9kfFG5SEbgR8JqxnYb CzvbbWOdCW83VWj0YWQ6dIppCVncfG3i gAGiY1m5AvApIZ05aD89EVhzRRIjOmN8 LjZpbjsgbWFy E9qjFxVwxFRkEyb+PHRhYmxlIHdpZHRo JWwfXVDmSuBmbBxbIW6iOb8jSOByKNGz bGxhcHNlOiBj f4xcDSOqTJfuAL2urEsuT2MerRC9UVAe k5k6Iu42gHZ+JQQiJTT8sVrzURodq921 FvYtq9buMPD6 pIEuBTvyOTP9S38lo9F4PWMsRCSgSEW2 tFH7lA9ewNqurafqT1RlzYSmBhC9CNS4 eESfdA9gzUlz mbxlxG0bRag+F11JWK3AOZZVRH2MVfq3 B5GaKsvklEO+LL13CNSjSD15bOMlhWNz s0ckwUu1UmHm ZJJfDMV8nTohZGtdk3CfCVZvE01buCVj z3C7HYVabLmkjSBwLhYmdYS1dM6oFIbp pveyd8bqaeoa Hoovc9cwyg19sA13R24gRSnjMALtLCE7 WAWeZZKgfOscoy7arE0mXy3+AGwyb9hh e3axiIq2RkDe IUWdkjEsoGyvMLC6f1HnYs54B6MfwOdm t4GdZzs8eh22qYYbc9M0dHR7WPxeWPMi lY2fBUcpMzH1 MPLaZiWykP22rZZpLGxqBt9yjAywuPlt QF5nPXHijmleDGHccN8sLHKakJVgpUfe BG4dWPNenttu p587PjDzUVO8EYWuzKZwQ3MifT4wQpMl XWSyKMNtE2AaoJImFVtkL190TYlrLvS6 WEVwotNhV6Cw ARGupMikRiN0e3H1Ly8Ke6MtzotjWLI1 JYwtVVHhXvI4HoPiUmQ0B3YgJgo5XYJr fPyrKZ5xK5Jo DNJsicnhbzxaeZX7FXOeMZWdlC18aWNq LLjvHm3kr4I8j809OLJlBQVtbF58Qe4r dDogMTBwdCBU jL9wupchm6pdnmnbQiSjKSLnOUa4SXl1 KTPfrRvjChOaNPP4CiN3WQO8rZEalQ5i dSeumwpywB3g Oyc+Y08knF3qRNB8ZWT9nymzDDXajbXj BZ02PN50H8CzJvqvgYJetCK+PGRpdiBz nPsmLJ3dWnCy f7qqy5SoCEbqP3KsCGHyOTdbJqn2AJEi WPL5lOP4rY6nSGZiKUmic0Z2pDK8K6Vb zvBqzt5rx8jb NKKaGNthS75dgMMkp6Q0HNJzdRY4IJSf ePbuJbIntM13Vip+WNWwwMmpg1GwUgnq g3mdf3nfwOs3 YdHeZNZmklRmiFeiKFV9d1YqWk58J26v HWzzZHGfKAJwCFFiBILkzYncae9lkI0j Ii8+PGNvbCB3 jJW4jZ4yPNBiKqE1RHsvQ596TfZuwIOv Syysg5onu8nrdUr1DmRcDSBmsqQwxQan NJA1i0MwHq16 U43iJGbxGHGnZWOyYIVzTANjbSdojb7l pS7sOf4+TQ5hr4mmdm80rM87cSS+PHRk WYL7wUmlWQig CPKdwW1tSKpiVdW2BODpVcMwtZ79lBVs TBadRl1ypXctaGwrIY8sUQUgmmwwd763 LyQha6koXDLm mXWfGFvuACP1I63pn3P8MOKvRHVvHMX9 pHT0xG5jdBkebvhwmMWpiSoekmShuGxd CRbqADmgU210 ROOdcBrxEfFsgDkgfcRiZkWwSDg4I0Nk Rnj2HQPgpXxgHU2bhSUuASzmLp5iyMwr rWfoTJ9hZFGz bvkko468RpSbm4dxANOynNBdFQzzPNH5 E62nk0M4MQRrJKOqWHX5jRL9nM6rcFpo bjogbGVmdDsg emCnxGrpCPlbPObiC189HOMccMguDmEs lpHkDEOlvUB6YI96GU27mMMty0K2yAP5 B5GrPQOhywrm bykprNZ1RPPdBFLytQ73Tm1gdSrdZo0r AKSyNLB0FPNypGFzO9XpbO6mMpKdWCEa KEYjB4XpzBZb IKzxA438GFwvHlZ7VAJtafDsT0DdTVNk cEkuWyA3a5T2Wd1OH9P1GN57AT12pDWw f1A5qGZ6T0Bx GHGcwtldogvzdDA4HIZxHMAnvZ25Qd1p iTufIw9tHURaALW9AQEaiTWtC9YxzW2p OiAjMDAwMDAw Q2ZiwYPgVMraE789UOoeJqM3NXFybtLm J7RjDIDrjWmlHlB6c1K3Yb9BAOz1BM47 RT61iJHoo8A2 vGP1F0TdIBGbiqqinvtorNX3IWIcMGTy jV99Of7mjFbfNb3yHKYmJIL3HEQvwUSu Z0QyxD7rWtNq DITqTLDqH3FwxCBfBAnkN917XRptCcI5 SWIawfJnG9AmMKKutFanOtW7e9F6Er5V JSVwHC50IRX3 rYP0UB45AQ70G2UuSkhsmGDscFH+PHRh TurtRUmdIEOnIGiuCZShKcMspKtdOC5l Xh5rJLVtAUUc oSvknBTsMnCiy5utMXLeQEsbMS7rgSui V5KjkWV9XMHle8n9Lj05N49rI9ClwVB+ GKIzhZE8iLQ1 cH4iVkTuVxP3LGduK333LbNghNQfAebs n3esi1wjpJi7GdQ5CGXznsVejOdsAYY5 f7FzMn43J07v UMnlRBCeKJYoMDOrWDRbuSwghn4wpW1u Ii8+DUJrpVD3yCY5kO3aCaTnBuY4OBln S408AxFnzZVh Hnqic1snr1hzmFf2FwQvHIYiryYeaNrr ULU9d6DpQv93M5OlyGctu1CoUav9up59 sHWrl1T9mDG9 W9DdSJTpdxghxYXpvHicYQ2ySTMeyrro CLEydB6qNBTgT3p2SqJmJfM7PNdlG0Ah evY9XKGrpBGt GOylXEZ1W10nk3X4BNByRYFvJPQ5kVQ1 mT6lyEwnvabhlLOsmKnywoJzzTpcFWxf HAhrU360VHWj rNkbUGWfzD6ySVTogDRucKrkKM9vHFPs ikxdFyXRHLOAWgdHRZYhXDfIVrATRN32 I0UtWgf7NLLx eCmoRZ1rwPFbPIqzYv5yqLmbxHkrYL8l JVSwyphvIHQmjY4pCTGpdPTkmAjxPB1v PAXdfwhob530 WyNmDLN5FXLstOLoP4QmzW7dUdBxUTQn MMDcT0VwfHIsLNarY614XQlcXqY5AZKf lrCmU0FnSTXz xUnfZiS4p3D9Eu7kFt5wWI4cMGVkRL20 DO38mGBul9A5vAO2I2KvHYFjyheomtnk fGC6WQWyGAIg iB55mPOrFPrhCx5pa2I4c162FEHfMPRi cT61Zb7wbTdhNNWyyAWWbN1chvvse9xa cjogIzAwMDAw NYi7JPr6ETXntLkdGcRyWMJ7DmF4IUL7 sGKneY3akLeecawdbH8lQju+NjggWWVh qgY5G4LnImy5 BRQtaRxzGS2zpATyRAfqVy8lzSwflUvk RP2gUQZsbmmzFWUvoO6zUMOwbNSmmQij CA6hWGNzgjty e417KjLvTJQ3TVBycEZfN2WorE5iJeRy QFZwNWSkX5LmaIRgKWpnB616CUgnBsT8 ZPRvbdZoE4Iz JZGadBvsQrV9x1F4Ea3ENN0elNA6X8Su Nlo0FBArjXejZK2mhUMxVAdkLq9rqVnp oOnlFQ2pXMCh deorLEDrwQ8dKOGlnGRjaLwpJY4qHMSk rjfli842YkCxXFI9RJCzvHHxA5NzjG5i OiAjMDAwMDAw K7DjnIUnGYscU316NOudLgP8WTElouTj L9GxYYIciUyrEpY9e6M9Dd0QBHW2pxRj czg2S1YmQhqc dHI+OB98FEAgXI21zBAmqINuv3bmaHr6 McXjMGYxBZX9tOmpAThti6JnVSBiX61v oDAzq6C1SXXg zPhuqPXtZlNoyCT2rA0eBWptygosx4wg hyygOqylc7seez42xI47J26zNIjeTDWx PSIzMCUiIHZh uIsotz8kkI9xWi3+MSMbbFT3oFB0tJ5p XwBbBeJ8UTbyZ791WjGbyOWuAwjdx5cv u5hgxJz1UaSi CSGxiqSdnSmoHQC7k5RhPy83U73rIZdh MBKqAOSoJQGkAITmfHzxtx0qjM0xQs5+ IX9od0xueq95 tJ87hXM+IKOlYPZ9tDzxFVmcGTHonN9i ZPpyDxE0WDHnLuFotP76fOHxUSfjZs9b pNayoIzmIZ9d AZYwwskgo472UdRaf6xoLQQilUIeIZlh SYN7K63yj9O5QMTqWDYhDSP0iXE0cB0v bGlnbjogbGVm aGcopqPckLhbLEuzNGsxT170TXXsiKaz OmOpnUPlS6ioltOAOS1lAznadFJ+PHRk NWH2gDsbLLnk MKRapU4aGYRzR1m8HaDuHqC9BCbcG4Gq yuN1LDOfvRTzNEKqkBMXmO6jzyufi7yg cjogIzAwMDAw ERe4TAi7MNRvxIboEwXoFVC0GdD8JMS8 aCXydK7ouZdyuscngK3iBjy+RklOOjwv dGQ+PHRkIHN0 nYubPJgdTIObzU2zTCGeC8f7XrKyXzI4 BOxfV1LhaiL2BTTxiDMkTEGxxEKSwN9o bznlc8sqowjl PhSkETQaNEb4TQl4NQYlaTdqJlWuVIU5 AxR0OVZ5aWQjqE7ghEokzoeutX0gJrz+ TVJOOjwvdGQ+ LMMhNTC2qYccMGaxYVAddQ0rCLHtO6h7 WfBkEyJ9STipE4UpoyR2HFEhjRDjFYLy fWIVxO1ttvmn v7fmvqvwDlPlJMChYIe7QBb9LNBgvXwf AwBmNCS5HiM5WTL3sCEfiB6bdNkxlyqd bB5kCaj+UGF5 UQI6UI41ZA44K8BfQsqkpLPtsET+PHRh AthgUQupHCAfQQwqNOUoQmHewTizFZ8x Uz1nDSFzOEQf bGxh (more content not included)... Normal Perez [facility] Cardiovascular Lab Reporton 01-13-2017 Cardiovascular Lab Report [facility] Patient Name: Mary Goode [facility] MR #: [id number] Physician: Caty Yoder,Department of M.D.Medicine Service Date: 01/12/2017Division of Birthdate: 3Cardiology Room #: [facility] [id number] [place], [place] [address]Szmrb Fax Cardiovascular Laboratory ReportFINAL IMPRESSION:1. Mildly elevated right ventricular filling pressure.2. Preserved cardiac output and cardiac index.3. Normal epicardial coronary arteries.INDICATION:Mary Goode is a 66-year-old female, who is known to havehypertension, hyperlipidemia. She has been experiencing shortness ofbreath with chest discomfort. She underwent a stress test that showedsignificant ECG changes with normal perfusion however given symptoms, shewas considered for right heart catheterization and coronary angiography.RECOMMENDATION:Alhaji nue medical therapy for risk factor modification and management ofdiastolic heart failure.PROCEDURES:1. Coronary angiography.2. Right heart catheterization.METHODS:After risks, benefits, and alternatives were explained to the patient, shewas brought to catheterization lab in a fasting state. Right neck wasdraped and prepped in the usual sterile fashion. Using modified Seldingertechnique, a 5-[place] micropuncture was placed in the right internaljugular vein. After that, this was upsized to a regular 5-[place] sheath.A 5-[place] Martinez was used for right heart catheterization. After theright heart catheterization, data was obtained. Martinez catheter was takenout. After that, access was obtained of left radial artery and a 6-Frenchsheath was placed and then we used a 5-[place] JL4 and JR4 catheters forcoronary angiography. After adequate data was obtained, we decided toconclude the procedure. At the conclusion, TR band was applied forhemostasis and the sheath from the internal jugular vein was managed withmanual compression. There were no complications.HEMODYNAMIC DATA:1. AO 129/83 (105).2. RA 10/10.3. RV 41/5/7.4. PA 42/16/26.5. Wedge 15/12.6. PA sat 83%, AO sat 96%.7. Cardiac output is 11.4, Cardiac index 6.6.8. Total fluoro time was 1.5 minutes. Total contrast is 20 mL.CORONARY ANGIOGRAPHY: Normal epicardial coronary arteries with rightdominant circulation.Electronically Signed by:Caty Yoder M.D. 01/20/2017 03:13 P Caty Yoder M.D.Date Dict: 01/12/2017/11:24 Darya/Caty Yoder M.D.Date Trans: 01/13/2017 07:28 A/Chin_JN:[id number]: Imer Purcell M.D. [address] [id number] Samuel Sanchez M.D. [facility]5 [facility] [address] Normal [facility] Vital Signs Date Time Vital Sign Value Performing Clinician Facility 06-16-2023 10:43-0500 Body height 160 cm Mireille Zurita MD Work Phone: [facility] 06-16-2023 10:43-0500 Body mass index (BMI) [Ratio] 31.53 kg/m2 Mireille Zurita MD Work Phone: 6(188)757-399896 [place] [address] 06-16-2023 10:43-0500 Body temperature 96.8 [degF] Mireille Zurita MD Work Phone: 1(564)717-827696 [place] [address] 06-16-2023 10:43-0500 Body weight 80.74 kg Mireille Zurita MD Work Phone: 4(956)753-966356 [place] [address] 06-16-2023 10:43-0500 Diastolic blood pressure 74 mm[Hg] Mireille Zurita MD Work Phone: 8(787)092-918156 [place] [address] 06-16-2023 10:43-0500 Heart rate 82 /min Mireille Zurita MD Work Phone: 1(715)365-395956 [place] [address] 06-16-2023 10:43-0500 Systolic blood pressure 110 mm[Hg] Mireille Zurita MD Work Phone: 4(070)449-615556 [place] [address] 05-10-2023 11:27-0500 Body height 157.5 cm Mireille Zurita MD Work Phone: 2(719)859-774756 [place] [address] 05-10-2023 11:27-0500 Body mass index (BMI) [Ratio] 32.08 kg/m2 Mireille Zurita MD Work Phone: 5(625)139-899896 [place] [address] 05-10-2023 11:27-0500 Body temperature 97.3 [degF] Mireille Zurita MD Work Phone: 2(602)202-010956 [place] [address] 05-10-2023 11:27-0500 Body weight 79.56 kg Mireille Zurita MD Work Phone: 4(050)037-044956 [place] [address] 05-10-2023 11:27-0500 Diastolic blood pressure 76 mm[Hg] Mireille Zurita MD Work Phone: 9(767)456-377156 [place] [address] 05-10-2023 11:27-0500 Heart rate 74 /min Mireille Zurita MD Work Phone: 1(605)651-990696 [place] [address] 05-10-2023 11:27-0500 Respiratory rate 16 /min Mireille Zurita MD Work Phone: 9(163)007-397496 [place] [address] 05-10-2023 11:27-0500 Systolic blood pressure 120 mm[Hg] Mireille Zurita MD Work Phone: [facility] 03-23-2023 08:20-0500 Body temperature 97.9 [degF] Mireille Zurita MD Work Phone: [facility] 03-23-2023 08:20-0500 Diastolic blood pressure 73 mm[Hg] Mireille Zurita MD Work Phone: 9(770)382-287696 [place] [address] 03-23-2023 08:20-0500 Heart rate 88 /min Mireille Zurita MD Work Phone: [facility] 03-23-2023 08:20-0500 Respiratory rate 16 /min Mireille Zurita MD Work Phone: [facility] 03-23-2023 08:20-0500 SaO2% (BldA) [Mass fraction] 95 % Mireille Zurita MD Work Phone: [facility] 03-23-2023 08:20-0500 Systolic blood pressure 127 mm[Hg] Mireille Zurita MD Work Phone: [facility] 03-21-2023 06:33-0500 Body height 157.5 cm Mireille Zurita MD Work Phone: [facility] 03-21-2023 06:33-0500 Body mass index (BMI) [Ratio] 31.45 kg/m2 Mireille Zurita MD Work Phone: [facility] 03-21-2023 06:33-0500 Body weight 78 kg Mireille Zurita MD Work Phone: [facility] 02-01-2023 09:40-0400 Body height 163.83 cm Gino Paco Other [facility] Other 02-01-2023 09:40-0400 Body mass index (BMI) [Ratio] 29.4 kg/m2 Gino Paco Other [facility] [employer] Other 02-01-2023 09:40-0400 Body temperature 97.6 [degF] Gino Paco Other [facility] Other 02-01-2023 09:40-0400 Body weight 78.93 kg Gino Paco Other [facility] Other 02-01-2023 09:40-0400 Diastolic blood pressure 74 mm[Hg] Gino Paco Other [facility] Other 02-01-2023 09:40-0400 Respiratory rate 18 /min Gino Paco Other [facility] Other 02-01-2023 09:40-0400 SaO2% (BldA) [Mass fraction] 98 % Gino Paco Other [facility] Other 02-01-2023 09:40-0400 Systolic blood pressure 129 mm[Hg] Gino Paco Other [facility] Other 01-20-2023 14:47-0400 Body height 160.02 cm Imer Cherry [employer] Work Phone: EU-Ojoailydnuen-Xbyk [facility] [address] Work Phone: 01-20-2023 14:47-0400 Body mass index (BMI) [Ratio] 30.29 kg/m2 Imer Jo Ann Hoy Work Phone: CD-Xaogxdeymwgu-Idmn [facility] [address] Work Phone: 01-20-2023 14:47-0400 Body surface area Derived from formula 1.81 m2 Imer Jo Ann Hoy Work Phone: QT-Ipucizuiyzxv-Bsrg [facility] [address] Work Phone: 01-20-2023 14:47-0400 Body temperature 96.9 [degF] Imer Jo Ann Hoy Work Phone: WW-Kweyokjbsmfv-Vohu [facility] [facility] [address] Work Phone: 01-20-2023 14:47-0400 Body weight 77.57 kg Imer M Hoy Work Phone: BK-Wmqvuzdxfequ-Pneg [facility] [address] Work Phone: 01-20-2023 14:47-0400 Diastolic blood pressure 78 mm[Hg] Imer M Hoy Work Phone: YV-Jkioyzlxbeij-Gxqo [facility] [address] Work Phone: 01-20-2023 14:47-0400 Heart rate 69 /min Imer M Hoy Work Phone: AZ-Wenbfyzgktpi-Jkho [facility] [address] Work Phone: 01-20-2023 14:47-0400 SaO2% (BldA) [Mass fraction] 98 % Imer M Hoy Work Phone: FD-Grbgenkesukq-Gino [facility] [address] Work Phone: 01-20-2023 14:47-0400 Systolic blood pressure 140 mm[Hg] Imer M Hoy Work Phone: DI-Ezrrovfodixt-Lrwr [facility] [address] Work Phone: 01-20-2023 14:47-0400 4 1 Imer M Hoy Work Phone: HU-Fegtongbploi-Zqum [facility] [address] Work Phone: Comment on above: [employer] 12-07-2022 11:08-0400 Body height 160.02 cm Imer M Hoy Work Phone: VE-Izzblkqjfboj-Djzw [facility] [address] Work Phone: 12-07-2022 11:08-0400 Body mass index (BMI) [Ratio] 30.29 kg/m2 Imer M Hoy Work Phone: KP-Vvepjcsxnhvi-Hojz [facility] [address] Work Phone: 12-07-2022 11:08-0400 Body surface area Derived from formula 1.81 m2 Imer M Hoy Work Phone: MD-Yavsppewqlpp-Lwhi [facility] [address] Work Phone: 12-07-2022 11:08-0400 Body temperature 96.8 [degF] Imer M Hoy Work Phone: TZ-Zdbzbeoiebqm-Iqqg [facility] [address] Work Phone: 12-07-2022 11:08-0400 Body weight 77.57 kg Imer M Hoy Work Phone: PQ-Gnxyqydohzwl-Yrse [facility] [address] Work Phone: 12-07-2022 11:08-0400 Diastolic blood pressure 78 mm[Hg] Imer M Hoy Work Phone: IA-Cqsuqtqagmrv-Dphf [facility] [address] Work Phone: 12-07-2022 11:08-0400 Heart rate 63 /min Imer M Hoy Work Phone: CY-Owybvzsuqxdj-Imjt [facility] [address] Work Phone: 12-07-2022 11:08-0400 SaO2% (BldA) [Mass fraction] 97 % Imer M Hoy Work Phone: MO-Lryoffsqzxhs-Xgwc [facility] [address] Work Phone: 12-07-2022 11:08-0400 Systolic blood pressure 132 mm[Hg] Imer M Hoy Work Phone: GC-Rgrsxkieughu-Mdya [facility] [address] Work Phone: 12-07-2022 11:08-0400 4 1 Imer M Hoy Work Phone: ZU-Qnsvmrjhbnyk-Evmf [facility] [address] Work Phone: Comment on above: [employer] 12-07-2022 11:08-0400 5 1 Imer M Hoy Work Phone: GH-Wjmwedrfoiap-Liqg [facility] [address] Work Phone: Comment on above: PHQ-9 TS 08-03-2022 15:20-0400 Body height 163.83 cm Keagan Chadwick Other [facility] Other 08-03-2022 15:20-0400 Body mass index (BMI) [Ratio] 19.6 kg/m2 Keagan Chadwick Other [facility] Other 08-03-2022 15:20-0400 Body weight 52.62 kg Keagan Chadwick Other [facility] Other 07-22-2022 12:00-0400 Body height 163.83 cm Keagan Chadwick Other [facility] Other 07-22-2022 12:00-0400 Body mass index (BMI) [Ratio] 19.6 kg/m2 Keagan Chadwick Other [facility] Other 07-22-2022 12:00-0400 Body weight 52.62 kg Keagan Chadwick Other [facility] Other 07-22-2022 12:00-0400 Diastolic blood pressure 72 mm[Hg] Keagan Chadwick Other [facility] Other 07-22-2022 12:00-0400 Systolic blood pressure 118 mm[Hg] Keagan Chadwick Other [facility] Other 06-16-2022 10:00-0500 Body height 163.83 cm Gino Paco Other [facility] Other 06-16-2022 10:00-0500 Body mass index (BMI) [Ratio] 19.69 kg/m2 Gino Paco Other [facility] Other 06-16-2022 10:00-0500 Body temperature 97.6 [degF] Gino Paco Other [facility] Other 06-16-2022 10:00-0500 Body weight 52.84 kg Gino Paco Other [facility] Other 06-16-2022 10:00-0500 Diastolic blood pressure 70 mm[Hg] Gino Paco Other [facility] Other 06-16-2022 10:00-0500 Respiratory rate 18 /min Gino Paco Other [facility] Other 06-16-2022 10:00-0500 Systolic blood pressure 120 mm[Hg] Gino Paco Other [facility] Other 04-08-2022 10:09-0500 Diastolic blood pressure 64 mm[Hg] MD Imer Purcell Work Phone: [facility] 04-08-2022 10:09-0500 Heart rate 64 /min MD Imer Purcell Work Phone: [facility] 04-08-2022 10:09-0500 Respiratory rate 16 /min MD Imer Purcell Work Phone: [facility] 04-08-2022 10:09-0500 SaO2% (BldA) [Mass fraction] 100 % MD Imer Purcell Work Phone: [facility] 04-08-2022 10:09-0500 Systolic blood pressure 112 mm[Hg] MD Imer Purcell Work Phone: [facility] 04-08-2022 08:55-0500 Body height 160.02 cm MD Imer Purcell Work Phone: [facility] 04-08-2022 08:55-0500 Body temperature 98.2 [degF] MD Imer Purcell Work Phone: [facility] 04-08-2022 08:55-0500 Body weight 74.84 kg MD Imer Purcell Work Phone: [facility] 03-23-2022 16:20-0500 Body height 163.83 cm Keagan Chadwick Other [facility] Other 03-23-2022 16:20-0500 Body mass index (BMI) [Ratio] 28.05 kg/m2 Keagan Chadwick Other [facility] Other 03-23-2022 16:20-0500 Body weight 75.3 kg Keagan Chadwick Other [facility] Other 02-11-2022 14:00-0400 Body height 163.83 cm Keagan Chadwick Other [facility] Other 02-11-2022 14:00-0400 Body mass index (BMI) [Ratio] 28.05 kg/m2 Keagan Chadwick Other [facility] Other 02-11-2022 14:00-0400 Body weight 75.3 kg Keagan Chadwick Other [facility] Other 11-30-2021 11:20-0400 Body height 163.83 cm Gino Paco Other [facility] Other 11-30-2021 11:20-0400 Body mass index (BMI) [Ratio] 28.12 kg/m2 Gino Paco Other [facility] Other 11-30-2021 11:20-0400 Body temperature 97.2 [degF] Gino Paco Other [facility] Other 11-30-2021 11:20-0400 Body weight 75.48 kg Gino Paco Other [facility] Other 11-30-2021 11:20-0400 Diastolic blood pressure 69 mm[Hg] Gino Paco Other [facility] Other 11-30-2021 11:20-0400 Respiratory rate 18 /min Gino Paco Other [facility] Other 11-30-2021 11:20-0400 SaO2% (BldA) [Mass fraction] 98 % Gino Paco Other [facility] Other 11-30-2021 11:20-0400 Systolic blood pressure 112 mm[Hg] Gino Paco Other [facility] Other 11-12-2021 11:54-0400 Body height 160 cm Atif Mendez MD Work Phone: [facility] 11-12-2021 11:54-0400 Body temperature 97.39 [degF] Atif Mendez MD Work Phone: [facility] 11-12-2021 11:54-0400 Body weight 78.47 kg Atif Mendez MD Work Phone: [facility] 11-12-2021 11:54-0400 Diastolic blood pressure 63 mm[Hg] Atif Mendez MD Work Phone: [facility] 11-12-2021 11:54-0400 Heart rate 62 /min Atif Mendez MD Work Phone: [facility] 11-12-2021 11:54-0400 SaO2% (BldA) [Mass fraction] 98 % Atif Mendez MD Work Phone: [facility] 11-12-2021 11:54-0400 Systolic blood pressure 140 mm[Hg] Atif Mendez MD Work Phone: [facility] 10-01-2021 10:31-0400 Body height 165.1 cm Atif Mendez MD Work Phone: [facility] 10-01-2021 10:31-0400 Body weight 80.74 kg Atif Mendez MD Work Phone: [facility] 10-01-2021 10:31-0400 Diastolic blood pressure 57 mm[Hg] Atif Mendez MD Work Phone: [facility] 10-01-2021 10:31-0400 Heart rate 70 /min Atif Mendez MD Work Phone: [facility] 10-01-2021 10:31-0400 SaO2% (BldA) [Mass fraction] 97 % Atif Mendez MD Work Phone: [facility] 10-01-2021 10:31-0400 Systolic blood pressure 122 mm[Hg] Atif Mendez MD Work Phone: [facility] 06-02-2021 12:00-0500 Body height 163.83 cm Gino Paco Other [facility] Other 06-02-2021 12:00-0500 Body mass index (BMI) [Ratio] 30.28 kg/m2 Gino Paco Other [facility] Other 06-02-2021 12:00-0500 Body temperature 96.6 [degF] Gino Paco Other [facility] Other 06-02-2021 12:00-0500 Body weight 81.29 kg Gino Paco Other [facility] Other 06-02-2021 12:00-0500 Diastolic blood pressure 61 mm[Hg] Gino Paco Other [facility] Other 06-02-2021 12:00-0500 Respiratory rate 18 /min Gino Paco Other [facility] Other 06-02-2021 12:00-0500 SaO2% (BldA) [Mass fraction] 98 % Gino Paco Other [facility] Other 06-02-2021 12:00-0500 Systolic blood pressure 125 mm[Hg] Gino Paco Other [facility] Other Encounters Encounter Date Encounter Type Care Provider Facility Start: 06-16-2023 End: 06-16-2023 ambulatory [facility] Ambulatory Start: 06-16-2023 End: 06-16-2023 Postop follow up visit related to original px Mireille Zurita MD Work Phone: 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) (Primary Dx) Start: 05-05-2023 End: 05-06-2023 ambulatory [facility] Start: 04-07-2023 End: 04-07-2023 ambulatory [facility] Ambulatory Start: 03-23-2023 Encounter for other preprocedural examination [facility] Start: 03-21-2023 End: 03-23-2023 Encounter for other preprocedural examination [facility] Start: 03-21-2023 End: 03-23-2023 Evaluation and management of inpatient [facility] Start: 03-21-2023 End: 03-23-2023 Evaluation and management of inpatient Mireille Zurita MD Work Phone: [facility] 2 Comment on above: Spine disorder (Prim shante Dx); Preop testing; Cervical spondylosis with myelopathy; Coagulation defect, unspecified (CMS/HCC); Spinal stenosis, cervical region; Other spondylosis with myelopathy, cervical region; Acute post-operative pain; Drug-induced constipation; Normal pressure hydrocephalus syndrome (CMS/HCC); S/P cervical spinal fusion; Essential hypertension Start: 03-21-2023 End: 03-23-2023 Patient encounter status Mireille Zurita MD Work Phone: [facility] Work Phone: Start: 03-14-2023 End: 03-28-2023 ambulatory MIREILLE [facility] Start: 03-14-2023 End: 03-14-2023 ambulatory IMER PURCELL [facility] Start: 03-14-2023 End: 03-14-2023 Subsequent hospital visit by physician Par X-Ray 5 [facility] Comment on above: Cervical spondylosis with myelopathy Start: 03-14-2023 End: 03-14-2023 Subsequent hospital visit by physician [facility] Comment on above: Cervical spondylosis with myelopathy Start: 02-01-2023 End: 02-01-2023 ambulatory Gino Barbosa Other [facility] Other Start: 02-01-2023 Office outpatient vi sit 25 minutes Gino Barbosa [facility] Nephrology Start: 01-20-[address] Imer Purcell Facility:[id number] Start: 01-20-2023 Office outpatient vi sit 15 minutes Imer Purcell Work Phone: [facility]fh[facility] Work Phone: Start: 01-03-2023 End: 01-03-2023 ambulatory [facility] Facility:[facility] Start: 12-07-2022 Office outpatient ne w 45 minutes Imer Jo Ann Any Work Phone: [facility]-Sylzwtpdjqqk-Mzkxvjaul g [address] Work Phone: Start: 12-07-2022 ambulatory [facility] Facility :[id number] Start: 08-03-2022 Office outpatient vi sit 15 minutes Keagan Chadwick [facility] Neurosurgery Start: 08-03-2022 End: 08-03-2022 ambulatory MD Imer Purcell Work Phone: [facility] Work Phone: Start: 08-03-2022 End: 08-03-2022 Patient encounter procedure MD Imer Purcell Work Phone: [facility] [address] Work Phone: Start: 07-30-2022 End: 07-30-2022 ambulatory Imer Purcell Facility:[facility] Start: 07-30-2022 End: 07-30-2022 ambulatory MD Imer Purcell Work Phone: [facility] Work Phone: Start: 07-30-2022 End: 07-30-2022 Patient encounter procedure MD Imer Purcell Work Phone: [facility] Work Phone: Start: 07-27-2022 End: 07-27-[address] IMER PURCELL . Facility: Start: 07-22-2022 Office outpatient vi sit 15 minutes Keagan Chadwick [facility] Neurosurgery Start: 07-22-2022 End: 07-22-2022 ambulatory Imer Purcell Facility:[facility] Start: 07-22-2022 End: 07-22-2022 ambulatory MD Imer Purcell Work Phone: [facility] Work Phone: Start: 07-22-2022 End: 07-22-2022 Patient encounter procedure MD Imer Purcell Work Phone: [facility] [address] Work Phone: Start: 07-21-2022 End: 07-22-2022 ambulatory MARIKA ALBERTINA Facility:[facility] Start: 06-24-2022 End: 06-25-[address] IMER PURCELL . Facility: Start: 06-16-2022 End: 06-16-2022 ambulatory Gino Paco Other [facility] [employer] Other Start: 06-16-2022 Office outpatient vi sit 25 minutes Igno Paco [facility] Start: 06-08-2022 End: 06-08-2022 ambulatory Freda Pop Facility:[facility] Start: 06-08-2022 End: 06-08-2022 ambulatory MD Imer Purcell Work Phone: [facility] Work Phone: Start: 06-08-2022 End: 06-08-2022 Patient encounter procedure MD Imer Purcell Work Phone: [facility]-XRay [facility] [place] Work Phone: Start: 05-27-2022 End: 05-27-2022 ambulatory FREDA POP Facility:[facility] Start: 05-27-2022 End: 05-27-2022 ambulatory Freda Pop MITIGATION SUPERVISOR.COIL REWIND MACHINE OPERATOR Work Phone: General Surgery Comment on above: S/P repair of paraes ophageal hernia (Primary Dx); Long-term current use of proton pump inhibitor therapy Start: 05-27-2022 End: 05-27-2022 Telemedicine consultation with patient Freda Pop APRN.COIL REWIND MACHINE OPERATOR Work Phone: [facility] Start: 05-17-2022 End: 05-18-2022 ambulatory GINO PACO Facility: Start: 05-12-[address] IMER PURCELL . Facili ty:[facility]1 Start: 05-04-2022 End: 05-05-[address] IMER PURCELL . Facility: Start: 04-08-2022 End: 04-08-2022 ambulatory Jorge Ramirez Facility:[facility] Start: 04-08-2022 End: 04-08-2022 Admission to same day surgery center MD Imer Purcell Work Phone: [facility] Start: 04-08-2022 End: 04-08-2022 ambulatory MD Imer Purcell Work Phone: [facility] Work Phone: Start: 03-23-2022 End: 03-23-2022 ambulatory Keagan Chadwick Other [facility] Other Start: 03-23-2022 Office outpatient vi sit 15 minutes Keagan Chadwick [facility] Neurosurgery Start: 03-22-2022 End: 03-22-2022 ambulatory Adan Gonazlez Facility:[facility] Start: 03-22-2022 End: 03-22-2022 Patient encounter procedure MD Imer Purcell Work Phone: [facility] [address] Start: 03-16-2022 End: 03-16-2022 ambulatory Ziyad Ngo Other [facility] Other Start: 03-16-2022 Telephone encounter Ziyad TREVIÑO G Phone Operator Start: 02-11-2022 End: 02-11-2022 ambulatory Keagan Chadwick Other [facility] Other Start: 02-11-2022 Office outpatient vi sit 15 minutes Keagan Chadwick [facility] Neurosurgery Start: 02-10-2022 End: 02-10-2022 ambulatory Imer Purcell Facility:[facility] Start: 02-10-2022 End: 02-10-2022 ambulatory MD Imer Purcell Work Phone: [facility] Work Phone: Start: 02-10-2022 End: 02-10-2022 Patient encounter procedure MD Imer Purcell Work Phone: [facility] [address] Start: 02-08-2022 End: 02-08-[address] IMER PURCELL . Facility:[facility] Start: 01-27-2022 End: 01-27-[address] IMER PURCELL . Facility:[facility] Start: 01-26-2022 End: 01-27-[address] IMER PURCELL . Facility:[facility] Start: 01-25-2022 End: 02-15-[address] IMER PURCELL . Facility:[facility] Start: 01-07-2022 End: 01-07-[address] IMER PURCELL . Facility:[facility] Start: 12-23-2021 End: 12-23-2021 ambulatory FREDA POP Facility:[facility] Start: 12-03-2021 End: 12-03-2021 ambulatory Freda Pop COIL REWIND MACHINE OPERATOR Work Phone: General Surgery Comment on above: S/P repair of paraes ophageal hernia (Primary Dx); Paraesophageal hernia Start: 12-03-2021 End: 12-03-2021 Telemedicine consultation with patient Freda Pop MITIGATION SUPERVISOR.COIL REWIND MACHINE OPERATOR Work Phone: [facility] Start: 11-30-2021 End: 11-30-2021 ambulatory Gino Paco Other [facility] [employer] Other Start: 11-30-2021 Office outpatient vi sit 25 minutes Gino Paco [facility] Nephrology Start: 11-26-2021 End: 11-27-2021 ambulatory GINO PACO [facility] [employer] Other Start: 11-26-2021 Telephone encounter Keagan Chadwick [facility] Neurosurgery Start: 11-18-2021 ambulatory Atif Mendez MD Work Phone: General Surgery Comment on above: Nausea and December 03 a ppt. Start: 11-12-2021 End: 11-12-2021 ambulatory Riky Flynn (Rn) Tri GUILLEN General Surgery Comment on above: Education Of Patient /family ([facility] Repair) Start: 11-12-2021 End: 11-12-2021 Patient encounter procedure Atif Mendez MD Work Phone: General Surgery Comment on above: Paraesophageal herni a (Primary Dx) Start: 11-06-2021 End: 11-06-2021 ambulatory DOROTHY KYARA Facility:[facility] Start: 11-04-2021 ambulatory Atif Mendez MD Work Phone: General Surgery Comment on above: Updated Medical hist ory Start: 11-03-2021 Telephone encounter Atif esposito MD Work Phone: Family Medicine [facility] Comment on above: Orders Start: 11-03-2021 End: 11-03-2021 ambulatory IMER PURCELL Facility:[facility] Start: 11-03-2021 Encounter for other preprocedural examination MONIKA GUERRERO [facility] Start: 10-23-2021 Telephone encounter Atif esposito MD Work Phone: General Surgery Comment on above: Request Outside [facility] Records Start: 10-21-2021 End: 10-21-2021 ambulatory MONIKA GUERRERO Facility:[facility] Start: 10-06-2021 End: 10-06-2021 ambulatory Jorge Ramirez Other [facility] [employer] Other Start: 10-06-2021 Telephone encounter [facility] Start: 10-02-2021 End: 10-02-2021 ambulatory Jorge Ramirez Other [facility] [employer] Other Start: 10-02-2021 Telephone encounter [facility] Start: 10-01-2021 End: 10-01-2021 ambulatory MONIKA GUERRERO Facility:[facility] Start: 10-01-2021 End: 10-01-2021 Patient encounter procedure Atif Mendez MD Work Phone: General Surgery Comment on above: Paraesophageal herni a (Primary Dx) Start: 09-03-2021 Telephone encounter Atif esposito MD Work Phone: General Surgery Comment on above: Received Outside Med ical Records Start: 08-25-2021 End: 08-25-2021 ambulatory Jorge Ramirez Other [facility] Other Start: 08-25-2021 Telephone encounter [facility] Start: 08-12-2021 End: 08-12-2021 ambulatory Jorge Ramirez Other [facility] Other Start: 08-12-2021 Telephone encounter [facility] Start: 06-02-2021 End: 06-02-2021 ambulatory Gino Paco Other [facility] Other Start: 06-02-2021 Office outpatient vi sit 25 minutes Gino Paco [facility] Start: 01-12-2017 End: 01-13-2017 Ambulatory CATY YODER Facility:[facility] Start: 01-07-2017 End: 01-08-2017 Ambulatory DEFAULT PHYSICIAN Facility:[facility] Procedures Date Procedure Procedure Detail Performing Clinician Start: 06-09-2023 XR CERVICAL SPINE 2-3 VIEWS MIREILLE ZURITA Start: 06-09-2023 Radex spine cervical 2 or 3 views Mireille Zurita MD Work Phone: Start: 05-05-2023 XR CERVICAL SPINE 2-3 VIEWS MIREILLE ZURITA Start: 03-28-2023 ECG 12-LEAD IMER CHAVEZ Y Start: 03-28-2023 Ecg routine ecg w/le ast 12 lds trcg only w/o i&r Mireille Zurita MD Work Phone: Start: 03-23-2023 DISCHARGE PATIENT DOUGL HOY Start: 03-23-2023 Basic metabolic 2000 panel - Serum or Plasma IMER HOY Start: 03-23-2023 CBC panel - Blood by Automated count IMER HOY Start: 03-23-2023 Basic metabolic pane l calcium total Mireille Zurita MD Work Phone: Start: 03-22-2023 Basic metabolic 2000 panel - Serum or Plasma IMER HOY Start: 03-22-2023 CBC panel - Blood by Automated count IMER HOY Start: 03-22-2023 XR CERVICAL SPINE 2-3 VIEWS IMER HOY Start: 03-22-2023 Basic metabolic pane l calcium total Mireille Zurita MD Work Phone: Start: 03-22-2023 Radex spine cervical 2 or 3 views MaryLilo Patrick MITIGATION SUPERVISOR-COLLEGE SPECIALIST Work Phone: Start: 03-21-2023 IP CONSULT TO MEDICINE IMER HOY Start: 03-21-2023 PT EVAL AND TREAT DOUGL HOY Start: 03-21-2023 ADMIT TO INPATIENT DAVID LAS HOY Start: 03-21-2023 PULSE OXIMETRY, CONTINUOUS IMER HOY Start: 03-21-2023 XR CERVICAL SPINE 1 VIEW IMER HOY Start: 03-21-2023 End: 03-21-2023 PULSE OXIMETRY, CONTINUOUS Kaminieriu Melinda lewis MD Work Phone: Start: 03-21-2023 Radex spine 1 view s pecify level Mireille Zurita MD Work Phone: Start: 03-21-2023 XR CERVICAL SPINE 1 VIEW IMER HOY Start: 03-21-2023 Radex spine 1 view s pecify level Mireille Zurita MD Work Phone: Start: 03-21-2023 XR CERVICAL SPINE 1 VIEW IMER HOY Start: 03-21-2023 ADMIT TO INPATIENT DAVID LAS HOY Start: 03-21-2023 End: 03-21-2023 Radex spine 1 view specify level Mireille Zurita MD Work Phone: Start: 03-21-2023 End: 03-21-2023 Fusion Spine Anterior Cervical and Discectomy Mireille Zurita MD Work Phone: Start: 03-14-2023 XR CHEST 2 VIEWS JULIANO PURCELL Start: 03-14-2023 STAPHYLOCOCCUS AUREU S/MRSA COLONIZATION, CULTURE IMER PURCELL Start: 03-14-2023 CBC panel - Blood by Automated count IMER PURCELL Start: 03-14-2023 COAGULATION SCREEN DAVID PURCELL Start: 03-14-2023 Comprehensive metabo lic 2000 panel - Serum or Plasma IMER PURCELL Start: 03-14-2023 Phosphate [Mass/volu me] in Serum or Plasma IMER PURCELL Start: 03-14-2023 Radiologic exam ches t 2 views Mireille Zurita MD Work Phone: Start: 03-14-2023 Cul prsmptv pthgnc o rganism scrn w/colony estimj Mireille Zurita MD Work Phone: Start: 03-14-2023 Comprehensive metabo lic panel Mireille Zurita MD Work Phone: Start: 08-03-2022 MRI of right knee MD Heath Work Phone: Start: 08-03-2022 XR pre/post mri xray MD Imer Purcell Work Phone: Start: 07-30-2022 Dual energy X-ray absorptiometry MD Imer Purcell Work Phone: Start: 07-30-2022 Screening mammograph y of bilateral breasts MD Imer Purcell Work Phone: Start: 07-22-2022 XR pre/post mri xray MD Imer Purcell Work Phone: Start: 07-22-2022 MRI of head MD Imer Purcell Work Phone: Start: 04-08-2022 End: 04-08-2022 Colonoscopy MD Imer Purcell Work Phone: Start: 03-22-2022 MRI of cervical spin e without contrast MD Imer Purcell Work Phone: Start: 03-22-2022 XR pre/post mri xray MD Imer Purcell Work Phone: Start: 02-10-2022 XR pre/post mri xray MD Imer Purcell Work Phone: Start: 02-10-2022 X-ray of skull MD Isaura Purcell Work Phone: Start: 02-10-2022 MR lumbar spine wo con MD Imer Purcell Work Phone: Plan of Treatment Date Care Activity Detail Author Start: 04-08-2032 Screening for malign ant neoplasm of colon [facility] Start: 11-17-2024 DIABETES SCREEN DIABETES SCREEN [facility] Start: 11-03-2024 DIABETES SCREEN DIABETES SCREEN [facility] Start: 02-21-2024 DTaP/Tdap/Td Vaccine s (2 - Td or Tdap) DTaP/Tdap/Td Vaccines (2 - Td or Tdap) [facility] Start: 06-16-2023 End: 06-16-2023 Patient encounter procedure 06/16/2023 10:30 AM EST Office Visit [address] [phone] Mireille Zurita MD [address] [place] [address] [phone] [facility] Start: 06-10-2023 End: 05-10-2024 XR Cervical spine 2 or 3 Views XR cervical spine 2-3 views Imaging Routine 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 stenosis of cervical region ([facility]/HCC) Expected: 06/10/2023, Expires: 05/10/2024 [facility] Service Area Work Phone: Comment on above: Expected: 06/10/2023 , Expires: 05/10/2024 Start: 05-12-2023 End: 05-12-2023 Patient encounter procedure 05/12/2023 8:30 AM EST Office Visit [address] [phone] Mireille Zurita MD [address] [place] [address] [phone] [facility] Start: 04-07-2023 End: 04-07-2023 Patient encounter procedure 04/07/2023 1:00 PM EST Office Visit [facility] [address] [facility] [address] [place] [address] Araseli Faustin, 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 [address] [place] [address] [facility] Start: 03-21-2023 End: 03-21-2023 Admission to same day surgery center 03/21/2023 7:30 AM EST - 03/21/2023 1:00 PM EST Surgery [facility] [place] [address] [place] [address] Mireille Zurita MD [address] [place] [address] [phone] C3-4, C4-5, C5-6, C6-7 ANTERIOR DISC EXCISION/ ALLOGRAFT FUSION & PLATE FIXATION WITH FLAT PLATE CERVICAL X-RAY [facility] [place] Comment on above: C3-4, C4-5, C5-6, C6 -7 ANTERIOR DISC EXCISION/ ALLOGRAFT FUSION & PLATE FIXATION WITH FLAT PLATE CERVICAL X-RAY Start: 03-21-2023 End: 03-21-2023 Fusion Spine Anterior Cervical and Discectomy Fusion Spine Anterior Cervical and Discectomy Spinal stenosis, cervical region Other spondylosis with myelopathy, cervical region 03/21/2023 7:30 AM EST [facility] Work Phone: Start: 03-21-2023 Subsequent hospital visit by physician 03/21/2023 6:00 AM EST Hospital Encounter [facility] [place] [address] [place] [phone] Mireille Zurita MD [address] [place] [address] Preop testing (Primary Dx); Cervical spondylosis with myelopathy; Coagulation defect, unspecified (CMS/HCC) [facility] [place] Comment on above: Preop testing (Prima ry Dx); Cervical spondylosis with myelopathy; Coagulation defect, unspecified (CMS/HCC) Start: 01-20-2023 FUV, Provider: Mireille Zurita, Status: Pen, Time: 1:30 PM FUV, Provider: Mireille Zurita, Status: Pen, Time: 1:30 PM QA-Ixkkouunmpwb-Sdpr [facility] Work Phone: Start: 01-07-2023 COVID-19 Vaccine () COVID-19 Vaccine ( season) [facility] Start: 11-17-2022 SERUM CREATININE SERUM CREATININE [facility] Start: 11-03-2022 HEMOGLOBIN/HEMATOCRIT HEMOGLOBIN/HEM ATOCRIT [facility] Start: 11-03-2022 SERUM CREATININE SERUM CREATININE [facility] Start: 07-31-2022 COVID-19 Vaccine (4 - Moderna series) COVID-19 Vaccine (4 - Moderna series) [facility] Start: 07-22-2022 XR pre/post mri xray XR pre/post mri xray [facility] Start: 07-22-[address] [facility] Start: 05-09-2022 ADVANCE DIRECTIVE DISCUSSION ADVANCE DIRECTIVE DISCUSSION [facility] Start: 05-09-2022 DEPRESSION ASSESSMENT DEPRESSION ASS ESSMENT [facility] Start: 04-08-[address] [facility] Start: 01-07-2022 Influenza vaccination C [facility] Start: 10-01-2021 End: 12-01-2021 CREATININE BLD CREATININE BLD Lab Routine Paraesophageal hernia Expected: 10/01/2021, Expires: 12/01/2021 [facility] Work Phone: Comment on above: Expected: 10/01/2021 , Expires: 12/01/2021 Start: 07-09-2021 COVID-19 VACCINE (4 - Booster for Moderna series) COVID-19 VACCINE (4 - Booster for Moderna series) [facility] Start: 05-09-2021 ADVANCE DIRECTIVE DISCUSSION ADVANCE DIRECTIVE DISCUSSION [facility] Start: 05-06-2021 COVID-19 VACCINE (4 - Booster for Moderna series) COVID-19 VACCINE (4 - Booster for Moderna series) [facility] Start: 2017 BONE DENSITY BONE DENSITY [facility] Start: 2017 Pneumococcal Vaccine : 65+ Years (1 - PCV) Pneumococcal Vaccine: 65+ Years (1 - PCV) [facility] Start: 2017 PNEUMOCOCCAL: 65+ (1 - PCV) PNEUMOCOCCAL: 65+ (1 - PCV) [facility] Start: 2017 PNEUMOVAX AGE 65 AND OVER WITH 5YR LOOKBACK (#1) PNEUMOVAX AGE 65 AND OVER WITH 5YR LOOKBACK (#1) [facility] Start: 03-07-2016 DIABETES SCREEN DIABETES SCREEN [facility] Start: 04-17-2014 Zoster Vaccines (2 o f 3) Zoster Vaccines (2 of 3) [facility] Start: 2002 SHINGRIX VACCINE (1 of 2) SHINGRIX VACCINE (1 of 2) [facility] Start: 1997 COLOGUARD (FIT-DNA) COLOGUARD (FIT-D NA) [facility] Start: 1997 Colonoscopy COLONOSCOPY [facility] Start: 1997 COLORECTAL CANCER SCREENING COLORECTAL CANCER SCREENING [facility] Start: [address] COLONOGRAPHY [facility] Start: 1997 FECAL OCCULT BLOOD FECAL OCCULT BLOO D [facility] Start: 1997 LIPID SCREEN LIPID SCREEN [facility] Start: 1997 SIGMOIDOSCOPY SIGMOIDOSCOPY [facility] Start: 1992 Mammography MAMMOGRAM [facility] Start: 1992 Screening for malign ant neoplasm of breast Mammogram [facility] Start: 11-21-1971 Urine microalbumin profile DTAP,TDAP,TD (1 - Tdap) [facility] Start: 1970 ANNUAL PCP TEAM IT TECHNICAL SUPPORT SPECIALIST LENNY DISEASE VISIT ANNUAL PCP TEAM CHRONIC DISEASE VISIT [facility] Start: 1970 BP CONTROLLED (<130/80) BP CONTROLLE D (<130/80) [facility] Start: 1970 Diabetes mellitus screening Diabetes Screening [facility] Start: 1970 HEPATITIS C SCREENING HEPATITIS C [facility] Start: 1970 Hepatitis C screening Hepatitis C [facility] Start: 1964 Adult depression screening assessment DEPRESSION SCREENING [facility] Start: 1957 COVID-19 VACCINE (1) COVID-19 VACCIN E (1) [facility] Start: 1952 Lipid panel Lipid Panel [facility] Start: 1952 Medicare Annual Wellness Visit Medicare Annual Wellness Visit (AWV) [facility] Start: 1952 Screening for malign ant neoplasm of colon [facility] Start: 1952 Screening for osteoporosis Bone Density Scan [facility] End: 03-24-2023 Basic metabolic 2000 panel - Serum or Plasma Basic metabolic panel Lab Routine Morning draw (Lab) for 3 Occurrences starting 03/22/2023 until 03/24/2023, 2 completed [facility] Work Phone: Comment on above: Morning draw (Lab) f or 3 Occurrences starting 03/22/2023 until 03/24/2023, 2 completed End: 03-24-2023 CBC panel - Blood by Automated count CBC Lab Routine Morning draw (Lab) for 3 Occurrences starting 03/22/2023 until 03/24/2023, 2 completed [facility] Service Area Work Phone: Comment on above: Morning draw (Lab) f or 3 Occurrences starting 03/22/2023 until 03/24/2023, 2 completed End: 10-31-2022 Ct abdomen & pelvis w/contrast material CT ABD/PEL W IVCON Radiology Routine Paraesophageal hernia 1 Occurrences starting 10/01/2021 until 10/31/2022 [facility] Work Phone: Comment on above: 1 Occurrences starti ng 10/01/2021 until 10/31/2022 End: 09-28-2022 Esophageal motility study w/interp&rpt MANOMETRY ESOPHAGEAL Endoscopy Routine Paraesophageal hernia 1 Occurrences starting 10/01/2021 until 09/28/2022 [facility] Work Phone: Comment on above: 1 Occurrences starti ng 10/01/2021 until 09/28/2022 End: 03-21-2023 Incentive spirometry Instruct Incentive spirometry Instruct Respiratory Care Routine Once for 1 Occurrences starting 03/21/2023 until 03/21/2023 [facility] Work Phone: Comment on above: Once for 1 Occurrenc es starting 03/21/2023 until 03/21/2023 Noninvasive Ventilation Noninvas kyle Ventilation Respiratory Care Routine For RT frequency use only for continuous procedures with task-based reminders at 8a and 8p until discontinued starting 03/21/2023 [facility] Work Phone: Comment on above: For RT frequency use only for continuous procedures with task- based reminders at 8a and 8p until discontinued starting 03/21/2023 Patient Education Diverticulosis (DC) [facility] Work Phone: End: 03-22-2023 Urethral Catheter Removal Urethral Catheter Removal Procedures Routine Once for 1 Occurrences starting 03/22/2023 until 03/22/2023 [facility] Service Area Work Phone: Comment on above: Once for 1 Occurrenc es starting 03/22/2023 until 03/22/2023 End: 06-09-2023 XR Cervical spine 2 or 3 Views [facility] Service Area Work Phone: Comment on above: Once for 1 Occurrenc es starting 06/09/2023 until 06/09/2023 End: 03-14-2023 XR Chest 2 Views [facility] Service Area Work Phone: Comment on above: Once for 1 Occurrenc es starting 03/14/2023 until 03/14/2023 End: 10-31-2022 XR UPPER GI SINGLE CONTRAST XR UPPER GI SINGLE CONTRAST Radiology Routine Paraesophageal hernia 1 Occurrences starting 10/01/2021 until 10/31/2022 [facility] Work Phone: Comment on above: 1 Occurrences starti ng 10/01/2021 until 10/31/2022 [facility] Immunizations Immunization Date Immunization Notes Care Provider Zayda hoskins 03-02-2023 influenza virus vaccine, unspecified formulation Par 5 [facility] Work Phone: 03-02-2023 Respiratory Synctial Virus (Rsv), Unspecified Par 5 [facility] Work Phone: 06-05-2022 Moderna COVID-19 Biv al Booster 50 MCG/0.5ML Intramuscular Suspension Imer Purcell Work Phone: [facility] Work Phone: 05-06-2022 Fluad Quadrivalent 0 .5 ML Intramuscular Prefilled Syringe Imer Purcell Work Phone: KS[facility]cyato[facility] Work Phone: 03-11-2021 COVID-19 mRNA-1273 (Moderna) MD Imer Purcell Work Phone: [facility] 08-10-2020 Moderna COVID-19 Vaccine 100 MCG/0.5ML Intramuscular Suspension Imer Purcell Work Phone: [facility]ltwnhwlre[facility] Work Phone: 08-08-2020 COVID-19 mRNA-1273 (Moderndayra) MD Imer Purcell Work Phone: [facility] 07-11-2020 COVID-19 mRNA-1273 (Moderna) MD Imer Purcell Work Phone: [facility] 02-18-2020 Seasonal trivalent influenza vaccine, adjuvanted, preservative free Imer Cherry Any Work Phone: [facility]lrmj[facility]oyd[facility] Work Phone: 10-08-2015 influenza, seasonal, injectable Gino Paco Other [place] [facility] Other 02-20-2014 tetanus toxoid, redu olena diphtheria toxoid, and acellular pertussis vaccine, adsorbed Imer Chavezdora Work Phone: [facility]Dfybsmdlqsxr[facility]Rsy[facility] Work Phone: 02-20-2014 zoster vaccine, live Imer Jo Ann Any Work Phone: MQ[facility]Eckvojwccbyk[facility] Work Phone: Payers Date Payer Category Payer Self-pay [id number] 2017 Medicare MEDICARE MEDICAR E A AND B [id number] 2017-Present [phone] [address] [address] [place] [address] Medicare [id number] 2017 Medicare [id number] 2017 Private Health Insurance [employer] Darya ETNA MEDICARE SUPPLEMENT [id number] 2017-Present [phone] [address] [address] [place] [address] Indemnity [id number]. [id number] 2017 Private Health Insurance [id number] .[id number]. 2.7.3.582039.315 1959 Medicare [id number] 2.16.840.1.931626.19 1959 Private Health Insurance [facility] [id number] 2.16.840.1.186366.19 1959 Self-pay [id number] 1952 Unknown [id number] 2.16.840.1.979328.3.579. 2.593 1952 Unknown [id number] 2.16.840.1.013029.3.579. 2.593 1952 Unknown [id number] 2.16.840.1.168542.3.579. 2.593 1952 Unknown [id number] 2.16.840.1.722844.3.579. 2.593 1952 Unknown [id number] 2.16.840.1.728817.3.579. 2.593 1952 Unknown [id number] 2.16.840.1.113456.3.579. 2.593 1952 Unknown [id number] 2.16.840.1.862308.3.579. 2.593 1952 Unknown [id number] 2.16.840.1.093086.3.579. 2.593 1952 Unknown [id number] 2.16.840.1.353251.3.579. 2.593 1952 Unknown [id number] 2.16.840.1.863108.3.579. 2.593 1952 Unknown [id number] 2.16.840.1.356067.3.579. 2.593 1952 Unknown [id number] 2.16.840.1.619354.3.579. 2.593 1952 Unknown [id number] 2.16.840.1.522814.3.579. 2.356 1952 Unknown [id number] 2.16.840.1.932554.3.579. 2.356 1952 Unknown [id number] 2.16.840.1.100730.3.579. 2.1259 1952 Unknown [id number] 2.16.840.1.671870.3.579. 2.1246 1952 Unknown [id number] 2.16.840.1.812789.3.579. 2.124 1952 Unknown [id number] 2.16.840.1.884424.3.579. 2.1244 1952 Unknown [id number] 2.16.840.1.230962.3.579. 2.1244 1952 Unknown [id number] 2.16.840.1.278863.3.579. 2.1244 1952 Unknown [id number] 2.16.840.1.545265.3.579. 2.1247 1952 Unknown [id number] 2.16.840.1.235073.3.579. 2.1247 1952 Unknown [id number] 2.16.840.1.849633.3.579. 2.1247 1952 Unknown [id number] 2.16.840.1.974192.3.579. 2.1247 [facility] [id number] Unknown Unknown [id number] 2.16.840.1.739281.3.579. 2.531 Unknown [id number] 2.16.840.1.519504.3.579. 2.531 Unknown [id number] 2.16.840.1.380279.3.579. 2.531 Unknown [id number] 2.16.840.1.095162.3.579. 2.531 Unknown [id number] 2.16.840.1.884712.3.579. 2.531 Unknown [id number] 2.16.840.1.973592.3.579. 2.531 Unknown [id number] 2.16.840.1.290433.3.579. 2.531 Unknown [id number] 2.16.840.1.177924.3.579. 2.531 Social History Date Type Detail Facility Start: 08-06-2021 End: 05-10-2023 Tobacco smoking status [facility] Never smoked tobacco [facility] Start: 11-16-2004 Alcohol intake Not Asked [facility] Start: 1950 Sex Assigned At Not on file C [facility] History of tobacco use Chews [facility] Start: 10-01-2021 End: 06-16-2023 Alcohol intake Current drinker of alcohol (finding) [facility] Start: 10-01-2021 History SDOH Alcohol Comment 1 drink monthly [facility] Start: 1950 Sex Assigned At Female C [facility] Start: 09-21-2021 End: 02-08-2024 Exposure to SARS-CoV-2 (event) Not sure [facility] Start: 03-21-2023 End: 05-10-2023 Sex Assigned At [facility] Start: 12-23-2021 End: 05-10-2023 Tobacco use and exposure Smokeless tobacco non-user [facility] Tobacco smoking stat [facility] Tobacco smoking consumption unknown [facility] Work Phone: Start: 03-22-2023 Tobacco use and exposure User of smokeless tobacco [facility] Work Phone: Start: 03-21-2023 End: 05-10-2023 History of Social function [facility] How often to you hav e a drink containing alcohol? Never [facility] How many standard drinks containing alcohol do you have on a typical day? Patient does not drink [facility] Work Phone: In the past 12 month s, was there a time when you were not able to pay the mortgage or rent on time? No [facility] Work Phone: Start: 03-22-2023 Alcohol Comment 1 drink/month [facility] Work Phone: How often to you hav e a drink containing alcohol? Monthly or less [facility] How many standard drinks containing alcohol do you have on a typical day? 1 or 2 [facility] Work Phone: Start: 04-03-2023 Gender identity Identifies as female gender (finding) [facility] Medical Equipment Procedure Code Equipment Code Equipment Origin al Text Equipment Identifier Dates Screw, Acp, Self Drill, 3.5 X 15mm, Variable - [id number] - [id number] Start: 03-21-2023 70 Mm 2.1 H Plate [id number] Start: 03-21-2023 Allograft, Triad Lordotic 7 X 11 X 14 - [id number] - [id number] Start: 03-21-2023 Allograft, Triad Lordotic 6 X 11 X 14 - [id number] - [id number] Start: 03-21-2023 Allograft, Triad Lordotic 7 X 11 X 14 - [id number] - [id number] Start: 03-21-2023 Namita, Annika Lordotic 7 X 11 X 14 - [id number] - [id number] Start: 03-21-2023 Goals Date Patient Goal Desired Activity /State Personal health goal Clinical Notes 06-02-2021 to 06-16-2023 Mireille Zurita MD - 06/16/2023 10:30 AM Tahir Zurita MD - 05/10/2023 11:30 AM ESTCare Plan - Beth Bronson RN - 03/23/2023 10:06 AM Fermín Bronson RN - 03/23/2023 10:02 AM EST Note Date & Type Note Facility 06-16-2023 History of Present illness Narrative Images from the original note were not included. [facility] [place] Department of Neurological Surgery Post Operative Patient Visit History of Present Illness: Mary Goode is a 72 y.o. year old female who presents to the spine clinic in a post operative visit. They are status post 4 level ACDF and P. She is doing quite well. Her latest x-rays show that everything is holding steady. I would like her to continue to work on her posture. Just in the office she caught herself looking down too far. I think it is time to get her into a soft collar and I gave her her weaning instructions. I am going to give her a prescription for physical therapy. She is going to work on upper extremity strengthening and posture work as well as her activities of daily living. We will plan on bringing her back sometime between 6 and 9 months postop with another set of x-rays or sooner if she is having trouble. She does talk about some tightness after eating where she believes her hiatal hernia was repaired. She is also having some reflux symptoms and I suggested that she get back in touch with her surgeon to assess that situation. It is possible that our operation pulled on the esophagus and has pulled on the repair. systems reviewed and negative other than what is listed in the history of present illness Patient Active Problem List Diagnosis Abnormality of gait Anxiety CKD (chronic kidney disease) stage 3, GFR 30-59 ml/min (CMS/HCC) Communicating hydrocephalus (CMS/HCC) Congenital hydrocephalus (CMS/HCC) Essential hypertension Hiatal hernia Murmur ADITI (obstructive sleep apnea) 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) Normal pressure hydrocephalus syndrome (CMS/HCC) Spine disorder Status post cervical spinal fusion Past Medical History: Diagnosis Date Anxiety Cataract GERD (gastroesophageal reflux disease) HL (hearing loss) Hyperlipidemia Hypertension WAQAS (iron deficiency anemia) Meningitis spinal at age 4 Paraesophageal hernia Refusal of blood transfusions as patient is Jew Renal artery aneurysm (CMS/HCC) Scoliosis Sleep apnea Past Surgical History: Procedure Laterality Date APPENDECTOMY ARTERIAL ANEURYSM REPAIR 2012 renal artery aneurysm repair w/coil CARDIAC CATHETERIZATION COLONOSCOPY FOOT SURGERY HIATAL HERNIA REPAIR HYSTERECTOMY OOPHORECTOMY SINUS SURGERY TONSILLECTOMY UPPER GASTROINTESTINAL ENDOSCOPY VENTRICULOPERITONEAL SHUNT 2008 due to spinal meningitis Social History Tobacco Use Smoking status: Never Smokeless tobacco: Never Substance Use Topics Alcohol use: Yes Comment: 1 drink/month family history is not on file. Current Outpatient Medications: amLODIPine (Norvasc) 10 mg tablet, Take 1 tablet (10 mg) by mouth once daily., Disp: , Rfl: aspirin 81 mg chewable tablet, Aspirin (Aspirin Child) 81 mg Tablet,Chewable Active 81 MG PO Daily August 05, 2021 12:00am, Disp: , Rfl: atorvastatin (Lipitor) 20 mg tablet, Take by mouth., Disp: , Rfl: cholecalciferol (Vitamin D-3) 25 MCG (1000 UT) capsule, Take 1 capsule (25 mcg) by mouth once daily., Disp: , Rfl: denosumab (Prolia) 60 mg/mL syringe, EVERY 6 MONTHS, Disp: , Rfl: donepezil (Aricept) 5 mg tablet, Take 1 tablet (5 mg) by mouth once daily., Disp: , Rfl: ferrous sulfate 325 (65 Fe) MG tablet, Take 1 tablet by mouth once daily with breakfast., Disp: , Rfl: gabapentin (Neurontin) 300 mg capsule, Take 1-2 capsules (300-600 mg) by mouth once daily at bedtime., Disp: , Rfl: hydroCHLOROthiazide (HYDRODiuril) 25 mg tablet, Take 1 tablet (25 mg) by mouth once daily., Disp: , Rfl: iron 18 mg tablet, Take by mouth once every 24 hours., Disp: , Rfl: ketorolac (Acular) 0.5 % ophthalmic solution, PLACE 1 DROP INTO AFFECTED EYE(S) ONCE IN THE MORNING AND ONCE BEFORE BEDTIME, Disp: , Rfl: labetalol (Normodyne) 100 mg tablet, Take 1 tablet (100 mg) by mouth 2 times a day., Disp: , Rfl: lansoprazole (Prevacid) [address] capsule, Take 1 capsule (30 mg) by mouth once daily., Disp: , Rfl: losartan (Cozaar) 50 mg tablet, Take 1 tablet (50 mg) by mouth once daily., Disp: , Rfl: ofloxacin (Ocuflox) 0.3 % ophthalmic solution, PLEASE SEE ATTACHED FOR DETAILED DIRECTIONS, Disp: , Rfl: potassium chloride CR 10 mEq ER tablet, Take 1 tablet (10 mEq) by mouth once daily., Disp: , Rfl: venlafaxine (Effexor) 75 mg tablet, Take by mouth., Disp: , Rfl: acetaminophen (Tylenol) 325 mg tablet, Take 3 tablets (975 mg) by mouth every 8 hours if needed for mild pain (1 - 3). (Patient not taking: Reported on 05/10/2023), Disp: , Rfl: cyclobenzaprine (Flexeril) 10 mg tablet, Take 1 tablet (10 mg) by mouth 3 times a day as needed for muscle spasms (post op pain)., Disp: 30 tablet, Rfl: 1 No Known Allergies Physical Examination: Her neck is healed. Her cervical range of motion is pretty good for being the first day out of the collar. And her range of motion of her arms is excellent. Results I personally reviewed and interpreted the imaging results which included plain x-rays which show that the alignment is good and the construct is holding. Assessment/Plan Mary Goode is a 72 y.o. year old female who presents to the spine clinic in a post operative visit. Since surgery they are doing well following the operation. She will wean out of the collar over the next several weeks. We are getting her enrolled in physical therapy. She is going to work on her posture training. She is also going to make an appointment with her surgeon who repaired her hiatal hernia. And then I will see her back somewhere between 6 and 9 months postop with another set of cervical x-rays or sooner if she is having trouble. The above clinical summary has been dictated with voice recognition software. It has not been proofread for grammatical errors, typographical mistakes, or other semantic inconsistencies. Thank you for visiting our office today. It was our pleasure to take part in your healthcare. Do not hesitate to call with any questions regarding your plan of care after leaving. My office can be reached at M-F 8am-4pm. To clinicians, thank you very much for this kind referral. It is a privilege to partner with you in the care of your patients. My office would be delighted to assist you with any further consultations or with questions regarding the plan of care outlined. Do not hesitate to call the office or contact me directly. Sincerely, Mireille Zurita MD, FAANS, FACS Board Certified Neurological Surgeon Production Clerk, Department of Neurological Surgery [facility] [address] [facility] [address] [id number] [facility] [address] [place] [address] documented in this encounter [facility] Work Phone: 05-10-2023 History of Present illness Narrative [facility] [place] Department of Neurological Surgery Post Operative Patient Visit History of Present Illness: Mary Goode is a 72 y.o. year old female who presents to the spine clinic in a post operative visit. They are status post C3-C7 anterior cervical disc excision with interbody fusion and plate fixation at the 4 levels. The incision is healing beautifully. Her x-rays look like everything is holding nicely. Her neck and shoulders feel better than they did prior to the surgery. She is having additional low back pain and we will address that at some point in the future. systems reviewed and negative other than what is listed in the history of present illness Patient Active Problem List Diagnosis Abnormality of gait Anxiety CKD (chronic kidney disease) stage 3, GFR 30-59 ml/min (CMS/HCC) Communicating hydrocephalus (CMS/HCC) Congenital hydrocephalus (CMS/HCC) Essential hypertension Hiatal hernia Murmur ADITI (obstructive sleep apnea) 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) Normal pressure hydrocephalus syndrome (CMS/HCC) Spine disorder Past Medical History: Diagnosis Date Anxiety Cataract GERD (gastroesophageal reflux disease) HL (hearing loss) Hyperlipidemia Hypertension WAQAS (iron deficiency anemia) Meningitis spinal at age 4 Paraesophageal hernia Refusal of blood transfusions as patient is Jew Renal artery aneurysm (CMS/HCC) Scoliosis Sleep apnea Past Surgical History: Procedure Laterality Date APPENDECTOMY ARTERIAL ANEURYSM REPAIR 2012 renal artery aneurysm repair w/coil CARDIAC CATHETERIZATION COLONOSCOPY FOOT SURGERY HIATAL HERNIA REPAIR HYSTERECTOMY OOPHORECTOMY SINUS SURGERY TONSILLECTOMY UPPER GASTROINTESTINAL ENDOSCOPY VENTRICULOPERITONEAL SHUNT 2009 due to spinal meningitis Social History Tobacco Use Smoking status: Never Smokeless tobacco: Never Substance Use Topics Alcohol use: Yes Comment: 1 drink/month family history is not on file. Current Outpatient Medications: amLODIPine (Norvasc) 10 mg tablet, Take 1 tablet (10 mg) by mouth once daily., Disp: , Rfl: atorvastatin (Lipitor) 20 mg tablet, Take by mouth., Disp: , Rfl: cholecalciferol (Vitamin D-3) 25 MCG (1000 UT) capsule, Take 1 capsule (25 mcg) by mouth once daily., Disp: , Rfl: cyclobenzaprine (Flexeril) 10 mg tablet, Take 1 tablet (10 mg) by mouth 3 times a day as needed for muscle spasms (post op pain)., Disp: 30 tablet, Rfl: 1 donepezil (Aricept) 5 mg tablet, Take 1 tablet (5 mg) by mouth once daily., Disp: , Rfl: ferrous sulfate 325 (65 Fe) MG tablet, Take 1 tablet by mouth once daily with breakfast., Disp: , Rfl: gabapentin (Neurontin) 300 mg capsule, Take 1-2 capsules (300-600 mg) by mouth once daily at bedtime., Disp: , Rfl: hydroCHLOROthiazide (HYDRODiuril) 25 mg tablet, Take 1 tablet (25 mg) by mouth once daily., Disp: , Rfl: labetalol (Normodyne) 100 mg tablet, Take 1 tablet (100 mg) by mouth 2 times a day., Disp: , Rfl: lansoprazole (Prevacid) [address] capsule, Take 1 capsule (30 mg) by mouth once daily., Disp: , Rfl: losartan (Cozaar) 50 mg tablet, Take 1 tablet (50 mg) by mouth once daily., Disp: , Rfl: potassium chloride CR 10 mEq ER tablet, Take 1 tablet (10 mEq) by mouth once daily., Disp: , Rfl: venlafaxine (Effexor) 75 mg tablet, Take by mouth., Disp: , Rfl: acetaminophen (Tylenol) 325 mg tablet, Take 3 tablets (975 mg) by mouth every 8 hours if needed for mild pain (1 - 3). (Patient not taking: Reported on 05/10/2023), Disp: , Rfl: No Known Allergies Physical Examination: General: NAD, AOx 3, no aphasia or dysarthria, normal fund of knowledge Cranial Nerves II-XII: VFF, PERRL, EOMI, Face Symm, Facial SILT, Palate/Tongue midline and symmetric Motor: 5/5 Throughout all extremities, No drift, no dysmetria on finger to nose Sensation: SILT and PP throughout all extremities Her gait is nonantalgic she is walking with better posture. She still has a slight head tilt to the right. Results I personally reviewed and interpreted the imaging results which included the plain x-rays that were done a couple of days ago. Shows that the swelling postoperatively has diminished dramatically. The alignment is unchanged and the screw placement is unchanged to her initial postop film. Assessment/Plan Mary Goode is a 72 y.o. year old female who presents to the spine clinic in a post operative visit. Since surgery they are doing well and we will continue to have her increase the weight restriction up to 30 pounds by the time we see her again. She still cannot drive until we get her in the soft collar. Overall I think she is doing extremely well. The above clinical summary has been dictated with voice recognition software. It has not been proofread for grammatical errors, typographical mistakes, or other semantic inconsistencies. Thank you for visiting our office today. It was our pleasure to take part in your healthcare. Do not hesitate to call with any questions regarding your plan of care after leaving. My office can be reached at M-F 8am-4pm. To clinicians, thank you very much for this kind referral. It is a privilege to partner with you in the care of your patients. My office would be delighted to assist you with any further consultations or with questions regarding the plan of care outlined. Do not hesitate to call the office or contact me directly. Sincerely, Mireille Zurita MD, FAANS, FACS Board Certified Neurological Surgeon Production Clerk, Department of Neurological Surgery [facility] [address] [facility] [address] [place] [address] [facility] [address] [place] [address] documented in this encounter [facility] Work Phone: 03-23-2023 Plan of care note Problem: Pain Goal: Takes deep breaths with improved pain control throughout the shift 03/23/20231005 by Beth Bronson RN Outcome: Adequate for Discharge 03/23/2023924 by Beth Bronson RN Outcome: Progressing Goal: Turns in bed with improved pain control throughout the shift 03/23/20231005 by Beth Bronson RN Outcome: Adequate for Discharge 03/23/2023924 by Beth Bronson RN Outcome: Progressing Goal: Walks with improved pain control throughout the shift 03/23/20231005 by Beth Bronson RN Outcome: Adequate for Discharge 03/23/2023924 by Beth Bronson RN Outcome: Progressing Goal: Performs ADL's with improved pain control throughout shift 03/23/20231005 by Beth Bronson RN Outcome: Adequate for Discharge 03/23/2023924 by Beth Bronson RN Outcome: Progressing Goal: Participates in PT with improved pain control throughout the shift 03/23/20231005 by Beth Bronson RN Outcome: Adequate for Discharge 03/23/2023924 by Beth Bronson RN Outcome: Progressing Goal: Free from opioid side effects throughout the shift 03/23/20231005 by Beth Bronson RN Outcome: Adequate for Discharge 03/23/2023924 by Beth Bronson RN Outcome: Progressing Goal: Free from acute confusion related to pain meds throughout the shift 03/23/2023 1006 by Beth Bronson RN Outcome: Adequate for Discharge 03/23/2023924 by Beth Bronson RN Outcome: Progressing Problem: Skin Goal: Decreased wound size/increased tissue granulation at next dressing change 03/23/2023 1006 by Beth Bronson RN Outcome: Adequate for Discharge 03/23/2023924 by Beth Bronson RN Outcome: Progressing Goal: Participates in plan/prevention/treatment measures 03/23/2023 1006 by Beth Bronson RN Outcome: Adequate for Discharge 03/23/2023924 by Beth Bronson RN Outcome: Progressing Goal: Prevent/manage excess moisture 03/23/2023 100 by Beth Bronson RN Outcome: Adequate for Discharge 03/23/2023924 by Beth Bronson RN Outcome: Progressing Goal: Prevent/minimize sheer/friction injuries 03/23/2023 1006 by Beth Bronson RN Outcome: Adequate for Discharge 03/23/2023924 by Beth Bronson RN Outcome: Progressing Goal: Promote/optimize nutrition 03/23/2023 100 by Beth Bronson RN Outcome: Adequate for Discharge 03/23/2023924 by Beth Bronson RN Outcome: Progressing Goal: Promote skin healing 03/23/2023 100 by Beth Bronson RN Outcome: Adequate for Discharge 03/23/2023924 by Beth Bronson RN Outcome: Progressing Problem: Fall/Injury Goal: Not fall by end of shift 03/23/2023 1006 by Beth Bronson RN Outcome: Adequate for Discharge 03/23/2023924 by Beth Bronson RN Outcome: Progressing Goal: Be free from injury by end of the shift 03/23/2023 1006 by Beth Bronson RN Outcome: Adequate for Discharge 03/23/2023924 by Beth Bronson RN Outcome: Progressing Goal: Verbalize understanding of personal risk factors for fall in the hospital 03/23/2023 1006 by Beth Bronson RN Outcome: Adequate for Discharge 03/23/2023924 by Beth Bronson RN Outcome: Progressing Goal: Verbalize understanding of risk factor reduction measures to prevent injury from fall in the home 03/23/20231005 by Beth Bronson RN Outcome: Adequate for Discharge 03/23/2023924 by Beth Bronson RN Outcome: Progressing Goal: Use assistive devices by end of the shift 03/23/20231005 by Beth Bronson RN Outcome: Adequate for Discharge 03/23/2023924 by Beth Bronson RN Outcome: Progressing Goal: Pace activities to prevent fatigue by end of the shift 03/23/20231005 by Beth Bronson RN Outcome: Adequate for Discharge 03/23/2023924 by Beth Bronson RN Outcome: Progressing T. [facility] Work Phone: 03-23-2023 Miscellaneous Notes Problem: Pain Goal: Takes deep breaths with improved pain control throughout the shift 03/23/20231005 by Beth Bronson RN Outcome: Adequate for Discharge 03/23/2023924 by Beth Bronson RN Outcome: Progressing Goal: Turns in bed with improved pain control throughout the shift 03/23/20231005 by Beth Bronson RN Outcome: Adequate for Discharge 03/23/2023924 by Beth Bronson RN Outcome: Progressing Goal: Walks with improved pain control throughout the shift 03/23/20231005 by Beth Bronson RN Outcome: Adequate for Discharge 03/23/2023924 by Beth Bronson RN Outcome: Progressing Goal: Performs ADL's with improved pain control throughout shift 03/23/20231005 by Beth Bronson RN Outcome: Adequate for Discharge 03/23/2023924 by Beth Bronson RN Outcome: Progressing Goal: Participates in PT with improved pain control throughout the shift 03/23/20231005 by Beth Bronson RN Outcome: Adequate for Discharge 03/23/2023924 by Beth Bronson RN Outcome: Progressing Goal: Free from opioid side effects throughout the shift 03/23/2023 1006 by Beth Bronson RN Outcome: Adequate for Discharge 03/23/2023924 by Beth Bronson RN Outcome: Progressing Goal: Free from acute confusion related to pain meds throughout the shift 03/23/2023 1006 by Beth Bronson RN Outcome: Adequate for Discharge 03/23/2023924 by Beth Bronson RN Outcome: Progressing Problem: Skin Goal: Decreased wound size/increased tissue granulation at next dressing change 03/23/2023 1006 by Beth Bronson RN Outcome: Adequate for Discharge 03/23/2023924 by Beth Bronson RN Outcome: Progressing Goal: Participates in plan/prevention/treatment measures 03/23/2023 100 by Beth Bronson RN Outcome: Adequate for Discharge 03/23/2023924 by Beth Bronson RN Outcome: Progressing Goal: Prevent/manage excess moisture 03/23/2023 1006 by Beth Bronson RN Outcome: Adequate for Discharge 03/23/2023924 by Beth Bronson RN Outcome: Progressing Goal: Prevent/minimize sheer/friction injuries 03/23/2023 1006 by Beth Bronson RN Outcome: Adequate for Discharge 03/23/2023924 by Beth Bronson RN Outcome: Progressing Goal: Promote/optimize nutrition 03/23/2023 100 by Beth Bronson RN Outcome: Adequate for Discharge 03/23/2023924 by Beth Bronson RN Outcome: Progressing Goal: Promote skin healing 03/23/2023 1006 by Beth Bronson RN Outcome: Adequate for Discharge 03/23/2023924 by Beth Bronson RN Outcome: Progressing Problem: Fall/Injury Goal: Not fall by end of shift 03/23/2023 1006 by Beth Bronson RN Outcome: Adequate for Discharge 03/23/2023924 by Beth Bronson RN Outcome: Progressing Goal: Be free from injury by end of the shift 03/23/2023 1006 by Beth Bronson RN Outcome: Adequate for Discharge 03/23/2023924 by Beth Bronson RN Outcome: Progressing Goal: Verbalize understanding of personal risk factors for fall in the hospital 03/23/2023 100 by Beth Bronson RN Outcome: Adequate for Discharge 03/23/2023924 by Beth Bronson RN Outcome: Progressing Goal: Verbalize understanding of risk factor reduction measures to prevent injury from fall in the home 03/23/2023 100 by Beth Bronson RN Outcome: Adequate for Discharge 03/23/2023924 by Beth Bronson RN Outcome: Progressing Goal: Use assistive devices by end of the shift 03/23/20231005 by Beth Brnoson RN Outcome: Adequate for Discharge 03/23/2023924 by Beth Bronson RN Outcome: Progressing Goal: Pace activities to prevent fatigue by end of the shift 03/23/20231005 by Beth Bronson RN Outcome: Adequate for Discharge 03/23/2023924 by Beth Bronson RN Outcome: Progressing T. Problem: Pain Goal: Takes deep breaths with improved pain control throughout the shift Outcome: Progressing Goal: Turns in bed with improved pain control throughout the shift Outcome: Progressing Goal: Walks with improved pain control throughout the shift Outcome: Progressing Goal: Performs ADL's with improved pain control throughout shift Outcome: Progressing Goal: Participates in PT with improved pain control throughout the shift Outcome: Progressing Goal: Free from opioid side effects throughout the shift Outcome: Progressing Goal: Free from acute confusion related to pain meds throughout the shift Outcome: Progressing Problem: Skin Goal: Decreased wound size/increased tissue granulation at next dressing change Outcome: Progressing Goal: Participates in plan/prevention/treatment measures Outcome: Progressing Goal: Prevent/manage excess moisture Outcome: Progressing Goal: Prevent/minimize sheer/friction injuries Outcome: Progressing Goal: Promote/optimize nutrition Outcome: Progressing Goal: Promote skin healing Outcome: Progressing Problem: Fall/Injury Goal: Not fall by end of shift Outcome: Progressing Goal: Be free from injury by end of the shift Outcome: Progressing Goal: Verbalize understanding of personal risk factors for fall in the hospital Outcome: Progressing Goal: Verbalize understanding of risk factor reduction measures to prevent injury from fall in the home Outcome: Progressing Goal: Use assistive devices by end of the shift Outcome: Progressing Goal: Pace activities to prevent fatigue by end of the shift Outcome: Progressing Problem: Pain Goal: Takes deep breaths with improved pain control throughout the shift 03/22/2023927 by Beth Bronson RN Outcome: Progressing 03/22/2023925 by Beth Bronson RN Outcome: Progressing 03/22/2023921 by Beth Bronson RN Outcome: Progressing Goal: Turns in bed with improved pain control throughout the shift 03/22/2023927 by Beth Bronson RN Outcome: Progressing 03/22/2023925 by Beth Bronson RN Outcome: Progressing 03/22/2023921 by Beth Bronson RN Outcome: Progressing Goal: Walks with improved pain control throughout the shift 03/22/2023927 by Beth rBonson RN Outcome: Progressing 03/22/2023925 by Beth Bronson RN Outcome: Progressing 03/22/2023921 by Beth Bronson RN Outcome: Progressing Goal: Performs ADL's with improved pain control throughout shift 03/22/2023927 by Beth Bronson RN Outcome: Progressing 03/22/2023925 by Beth Bronson RN Outcome: Progressing 03/22/2023921 by Beth Bronson RN Outcome: Progressing Goal: Participates in PT with improved pain control throughout the shift 03/22/2023927 by Beth Bronson RN Outcome: Progressing 03/22/2023925 by Beth Bronson RN Outcome: Progressing 03/22/2023921 by Beth Bronson RN Outcome: Progressing Goal: Free from opioid side effects throughout the shift 03/22/2023927 by Beth Bronson RN Outcome: Progressing 03/22/2023925 by Beth Bronson RN Outcome: Progressing 03/22/2023921 by Beth Bronson RN Outcome: Progressing Goal: Free from acute confusion related to pain meds throughout the shift 03/22/2023 09 by Beth Bronosn RN Outcome: Progressing 03/22/2023925 by Beth Bronson RN Outcome: Progressing 03/22/2023921 by Beth Bronson RN Outcome: Progressing Problem: Skin Goal: Decreased wound size/increased tissue granulation at next dressing change 03/22/2023927 by Beth Bronson RN Outcome: Progressing 03/22/2023925 by Beth Bronson RN Outcome: Progressing 03/22/2023921 by Beth Bronson RN Outcome: Progressing Goal: Participates in plan/prevention/treatment measures 03/22/2023927 by Beth Bronson RN Outcome: Progressing 03/22/2023925 by Beth Bronson RN Outcome: Progressing 03/22/2023921 by Beth Bronson RN Outcome: Progressing Goal: Prevent/manage excess moisture 03/22/2023927 by Beth Bronson RN Outcome: Progressing 03/22/2023925 by Beth Bronson RN Outcome: Progressing 03/22/2023921 by Beth Bronson RN Outcome: Progressing Goal: Prevent/minimize sheer/friction injuries 03/22/2023927 by Beth Bronson RN Outcome: Progressing 03/22/2023925 by Beth Bronson RN Outcome: Progressing 03/22/2023921 by Beth Bronson RN Outcome: Progressing Goal: Promote/optimize nutrition 03/22/2023927 by Beth Bronson RN Outcome: Progressing 03/22/2023925 by Beth Bronson RN Outcome: Progressing 03/22/2023921 by Beth Bronson RN Outcome: Progressing Goal: Promote skin healing 03/22/2023927 by Beth Bronson RN Outcome: Progressing 03/22/2023925 by Beth Bronson RN Outcome: Progressing 03/22/2023921 by Beth Bronson RN Outcome: Progressing Problem: Fall/Injury Goal: Not fall by end of shift 03/22/2023927 by Beth Bronson RN Outcome: Progressing 03/22/2023925 by Beth Bronson RN Outcome: Progressing 03/22/2023921 by Beth Bronson RN Outcome: Progressing Goal: Be free from injury by end of the shift 03/22/2023927 by Beth Bronson RN Outcome: Progressing 03/22/2023925 by Beth Bronson RN Outcome: Progressing 03/22/2023921 by Beth Bronson RN Outcome: Progressing Goal: Verbalize understanding of personal risk factors for fall in the hospital 03/22/2023927 by Beth Bronson RN Outcome: Progressing 03/22/2023925 by Beth Bronson RN Outcome: Progressing 03/22/2023921 by Beth Bronson RN Outcome: Progressing Goal: Verbalize understanding of risk factor reduction measures to prevent injury from fall in the home 03/22/2023927 by Beth Bronson RN Outcome: Progressing 03/22/2023925 by Beth Bronson RN Outcome: Progressing 03/22/2023921 by Beth Bronson RN Outcome: Progressing Goal: Use assistive devices by end of the shift 03/22/2023927 by Beth Bronson RN Outcome: Progressing 03/22/2023925 by Beth Bronson RN Outcome: Progressing 03/22/2023921 by Beth Bronson RN Outcome: Progressing Goal: Pace activities to prevent fatigue by end of the shift 03/22/2023927 by Beth Bronson RN Outcome: Progressing 03/22/2023925 by Beth Bronson RN Outcome: Progressing 03/22/2023921 by Beth Bronson RN Outcome: Progressing Problem: Pain Goal: Takes deep breaths with improved pain control throughout the shift 03/22/2023925 by Beth Bronson RN Outcome: Progressing 03/22/2023921 by Beth Bronson RN Outcome: Progressing Goal: Turns in bed with improved pain control throughout the shift 03/22/2023925 by Beth Bronson RN Outcome: Progressing 03/22/2023921 by Beth Bronson RN Outcome: Progressing Goal: Walks with improved pain control throughout the shift 03/22/2023925 by Beth Bronson RN Outcome: Progressing 03/22/2023921 by Beth Bronson RN Outcome: Progressing Goal: Performs ADL's with improved pain control throughout shift 03/22/2023925 by Beth Bronson RN Outcome: Progressing 03/22/2023921 by Beth Bronson RN Outcome: Progressing Goal: Participates in PT with improved pain control throughout the shift 03/22/2023925 by Beth Bronson RN Outcome: Progressing 03/22/2023921 by Beth Bronson RN Outcome: Progressing Goal: Free from opioid side effects throughout the shift 03/22/2023925 by Beth Bronson RN Outcome: Progressing 03/22/2023921 by Beth Bronson RN Outcome: Progressing Goal: Free from acute confusion related to pain meds throughout the shift 03/22/2023925 by Beth Bronson RN Outcome: Progressing 03/22/2023921 by Beth Bronson RN Outcome: Progressing Problem: Skin Goal: Decreased wound size/increased tissue granulation at next dressing change 03/22/2023925 by Beth Bronson RN Outcome: Progressing 03/22/2023921 by Beth Bronson RN Outcome: Progressing Goal: Participates in plan/prevention/treatment measures 03/22/2023925 by Beth Bronson RN Outcome: Progressing 03/22/2023921 by Beth Bronson RN Outcome: Progressing Goal: Prevent/manage excess moisture 03/22/2023925 by Beth Bronson RN Outcome: Progressing 03/22/2023921 by Beth Bronson RN Outcome: Progressing Goal: Prevent/minimize sheer/friction injuries 03/22/2023925 by Beth Bronson RN Outcome: Progressing 03/22/2023921 by Beth Bronson RN Outcome: Progressing Goal: Promote/optimize nutrition 03/22/2023925 by Beth Bronson RN Outcome: Progressing 03/22/2023921 by Beth Bronson RN Outcome: Progressing Goal: Promote skin healing 03/22/2023925 by Beth Bronson RN Outcome: Progressing 03/22/2023921 by Beth Bronson RN Outcome: Progressing Problem: Fall/Injury Goal: Not fall by end of shift 03/22/2023925 by Beth Bronson RN Outcome: Progressing 03/22/2023921 by Beth Bronson RN Outcome: Progressing Goal: Be free from injury by end of the shift 03/22/2023925 by Beth Bronson RN Outcome: Progressing 03/22/2023921 by Beth Bronson RN Outcome: Progressing Goal: Verbalize understanding of personal risk factors for fall in the hospital 03/22/2023925 by Beth Bronson RN Outcome: Progressing 03/22/2023921 by Beth Bronson RN Outcome: Progressing Goal: Verbalize understanding of risk factor reduction measures to prevent injury from fall in the home 03/22/2023925 by Beth Bronson RN Outcome: Progressing 03/22/2023921 by Beth Bronson RN Outcome: Progressing Goal: Use assistive devices by end of the shift 03/22/2023925 by Beth Bronson RN Outcome: Progressing 03/22/2023921 by Beth Bronson RN Outcome: Progressing Goal: Pace activities to prevent fatigue by end of the shift 03/22/2023925 by Beth Bronson RN Outcome: Progressing 03/22/2023921 by Beth Bronson RN Outcome: Progressing Problem: Pain Goal: Takes deep breaths with improved pain control throughout the shift Outcome: Progressing Goal: Turns in bed with improved pain control throughout the shift Outcome: Progressing Goal: Walks with improved pain control throughout the shift Outcome: Progressing Goal: Performs ADL's with improved pain control throughout shift Outcome: Progressing Goal: Participates in PT with improved pain control throughout the shift Outcome: Progressing Goal: Free from opioid side effects throughout the shift Outcome: Progressing Goal: Free from acute confusion related to pain meds throughout the shift Outcome: Progressing Problem: Skin Goal: Decreased wound size/increased tissue granulation at next dressing change Outcome: Progressing Goal: Participates in plan/prevention/treatment measures Outcome: Progressing Goal: Prevent/manage excess moisture Outcome: Progressing Goal: Prevent/minimize sheer/friction injuries Outcome: Progressing Goal: Promote/optimize nutrition Outcome: Progressing Goal: Promote skin healing Outcome: Progressing Problem: Fall/Injury Goal: Not fall by end of shift Outcome: Progressing Goal: Be free from injury by end of the shift Outcome: Progressing Goal: Verbalize understanding of personal risk factors for fall in the hospital Outcome: Progressing Goal: Verbalize understanding of risk factor reduction measures to prevent injury from fall in the home Outcome: Progressing Goal: Use assistive devices by end of the shift Outcome: Progressing Goal: Pace activities to prevent fatigue by end of the shift Outcome: Progressing Feels well this morning Cervical surgical drain output = 75 mL postoperatively Tolerating oral intake well BLANK readily Voiding QS Observed her ambulating in room, steadily Surgical drain removed without incident. Sterile bandaid applied to site POD#1 ACDF C3 - [address] Mireille Zurita: Progressing well, tolerating oral intake, pain controlled - Post op x-rays reviewed; hardware in place - PT / OT for discharge planning. Plan for discharge home 03/23/2023 [facility] Problem: Pain Goal: Takes deep breaths with improved pain control throughout the shift Outcome: Progressing Goal: Turns in bed with improved pain control throughout the shift Outcome: Progressing Goal: Walks with improved pain control throughout the shift Outcome: Progressing Goal: Performs ADL's with improved pain control throughout shift Outcome: Progressing Goal: Participates in PT with improved pain control throughout the shift Outcome: Progressing Goal: Free from opioid side effects throughout the shift Outcome: Progressing Goal: Free from acute confusion related to pain meds throughout the shift Outcome: Progressing Problem: Skin Goal: Decreased wound size/increased tissue granulation at next dressing change Outcome: Progressing Goal: Participates in plan/prevention/treatment measures Outcome: Progressing Goal: Prevent/manage excess moisture Outcome: Progressing Goal: Prevent/minimize sheer/friction injuries Outcome: Progressing Goal: Promote/optimize nutrition Outcome: Progressing Goal: Promote skin healing Outcome: Progressing The patient's goals for the shift include pain control The clinical goals for the shift include pain control Problem: Pain Goal: Takes deep breaths with improved pain control throughout the shift Outcome: Progressing Goal: Turns in bed with improved pain control throughout the shift Outcome: Progressing Goal: Walks with improved pain control throughout the shift Outcome: Progressing Goal: Performs ADL's with improved pain control throughout shift Outcome: Progressing Goal: Participates in PT with improved pain control throughout the shift Outcome: Progressing Goal: Free from opioid side effects throughout the shift Outcome: Progressing Goal: Free from acute confusion related to pain meds throughout the shift Outcome: Progressing Problem: Skin Goal: Decreased wound size/increased tissue granulation at next dressing change Outcome: Progressing Goal: Participates in plan/prevention/treatment measures Outcome: Progressing Goal: Prevent/manage excess moisture Outcome: Progressing Goal: Prevent/minimize sheer/friction injuries Outcome: Progressing Goal: Promote/optimize nutrition Outcome: Progressing Goal: Promote skin healing Outcome: Progressing 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.12] Post-operative Diagnosis: Post-op Diagnosis * Spinal stenosis, cervical region [M48.02] * Other spondylosis with myelopathy, cervical region [M47.12] Surgeon: * Mireille Zurita - Primary * Fernando Christine - Assisting Anesthesia staff:Anesthesiologist: Paty Jewell MD DIRECTOR ORACLE RETAIL: Man Bales APRN-DIRECTOR [employer] Procedure: Procedure(s): C3-4, C4-5, C5-6, C6-7 ANTERIOR DISC EXCISION/ ALLOGRAFT FUSION & PLATE FIXATION WITH FLAT PLATE CERVICAL X-RAY Findings: The thyroid gland was more prominent and so to make certain that he did not injure it I did an Intra-Op consult with otolaryngology. We inspected together and we did not see any damage. Estimated Blood Loss: 75 cc Drains: Retropharyngeal drain and Rodrigues catheter Specimen:No specimens collected Implants: Implant Name Type Inv. Item Serial No. Electronic Calibration Technician Lot No. LRB No. Used Action ALLOGRAFT, TRIAD LORDOTIC 7 X 11 X 14 - [id number] - [id number] Spinal Hardware ALLOGRAFT, TRIAD LORDOTIC 7 X 11 X 14 [id number] [employer] N/A 1 Implanted ALLOGRAFT, TRIAD LORDOTIC 6 X 11 X 14 - [id number] - [id number] Spinal Hardware ALLOGRAFT, TRIAD LORDOTIC 6 X 11 X 14 [id number] [employer] N/A 1 Implanted ALLOGRAFT, TRIAD LORDOTIC 7 X 11 X 14 - [id number] - [id number] Spinal Hardware ALLOGRAFT, TRIAD LORDOTIC 7 X 11 X 14 [id number] [employer] N/A 1 Implanted ALLOGRAFT, TRIAD LORDOTIC 7 X 11 X 14 - [id number] - [id number] Spinal Hardware ALLOGRAFT, TRIAD LORDOTIC 7 X 11 X 14 [id number] [employer] N/A 1 Implanted SCREW, ACP, SELF DRILL, 3.5 X 15MM, VARIABLE - [id number] Spinal Hardware SCREW, ACP, SELF DRILL, 3.5 X 15MM, VARIABLE [employer] N/A 10 Implanted 70 mm 2.1 H Plate [employer] N/A 1 Implanted Procedure Detail: The patient was brought into the operating room. A timeout huddle was performed. General endotracheal tube anesthesia was administered using the glide scope intubation system. Baseline evoked potentials were obtained. Once the evoked potentials were obtained then the shoulder roll was placed shoulders and her head was placed in a beanbag mva reactor operator head. The arms were tucked by her side. An x-ray was taken to verify proper location for our skin incision. Then the area was clipped prepped and draped in the usual sterile fashion. The skin was infiltrated with local anesthetic. The skin was incised with a #15 blade. Hemostasis was obtained with the bipolar electrocautery. I undermined the skin superficial to the platysma in a rostral and caudal direction. I then incised the platysma along the long axis of its fibers in a rostral and caudal direction. I then dissected along the anterior border the sternocleidomastoid and over the top of the omohyoid muscle. Once I could palpate the carotid pulse I swept underneath the esophagus and trachea using blunt dissection. Then I freed up the connective tissue and found the appropriate disc spaces. I took an x-ray to confirm the proper levels. It was at this point that we identified the thyroid vessels and the thyroid gland. I started to dissect between 1 lobe of the gland. I stopped consulted Dr. Meadows and he was kind enough to come in and expect the gland with me. Once we are satisfied that it was in good shape we proceeded with the operation. Once we had confirmation of the proper levels I remove the anterior osteophytes with the Leksell rongeur and we saved the bone and cleaned of any connective tissue for the allograft graft and autograft fusion at the end of the procedure. I then placed a pin in the body of C3 to the pin in the body of C4 8and applied some distraction across the disc space after it had been incised with a 15 blade. I then cleaned out any of the disc material by scraping the osteophytes and the cartilaginous endplates from 1 uncinate process to the other. I then drilled the endplates parallel. I also drilled up into the foramina bilaterally. I then was able to get underneath the posterior longitudinal ligament with a 4 oh up-angled curette and then I remove the remaining osteophyte and ligament with a 2 and 1 mm Kerrison punch. I then measured the depth and measured the height of the disc base and chose the appropriate size graft. At this level I used an 7mm graft. This was tapped into position. The distraction was released and the bone plug fit snugly. On I then remove the pin from the body of C3 and replaced it into C5. Now I applied distraction across the C4-5 space after the annulus was cut with a 15 blade. I then remove the disc in the same manner we curetted out the cartilaginous endplates from 1 uncinate process to the other I then drilled the endplates parallel and drilled off the posterior osteophytes the drill mellowing out into the foramina bilaterally. Then was able to get underneath the posterior longitudinal ligament with a 4 oh up-angled curette and remove the remaining ligament and osteophyte with the 2 and 1 mm Kerrison punches. I then measured for the appropriate size allograft. At this level it was a 6 mm graft. Once it was tapped into position I then remove the pin from C4 and replaced it into the body of C6. I then remove the C5-6 disc in much the same manner. First distraction was applied after the annulus had been cut with a 15 blade. The disc contents were curetted away with the 2 oh up angled hook curette from 1 uncinate process to the other. I then drilled the endplates parallel and drilled off the posterior osteophytes out into the foramina bilaterally. I got underneath the posterior longitudinal ligament with a 4 oh up-angled curette. I removed the remaining osteophyte and ligament with a 2 and 1 mm Kerrison punch. I then measured for the appropriate size allograft. At this level I used a 7 mm allograft. Once this was tapped into position I then removed the pin from C5 and replaced it into the body of C7. The C6-7 level was cleaned out after the distraction was applied and the annulus was cut with a 15 blade. Curetted out the contents in the same manner scraping the endplates down to the bony surface from 1 uncinate process to the other. I drilled off the posterior osteophytes and got underneath the posterior longitudinal ligament with a hook curette and remove the remaining ligament and osteophyte with a 1 and 2 mm Kerrison punch. Measured for the appropriate sized graft and tapped it into position this was a 7 mm graft as well. I chose the appropriate size plate which in this case was an 70 mm plate and lined it up appropriately. I used the awl to place company pilot holes in the 5 vertebral bodies 1 on each side. I used 15 mm screws in all ten holes. I also placed the additional bone graft that had been removed from the anterior osteophytes between the allograft and the plate. And I cinched down all the screws and put my locking mechanism in place. I then allowed the esophagus and trachea to fall back into their normal position. The drain was exited through a separate stab site. It was sewn in with a 3-0 Prolene. I irrigated with copious amounts of irrigation and then I approximated the platysma with a few interrupted 3-0 Vicryl sutures I used a few inverted interrupted 3-0 Vicryl sutures in the subcutaneous issue. I then closed the skin with a subcuticular running stitch of 4-0 Vicryl and reinforced with glue. The patient was stable and tolerated the procedure well evoked potential monitoring were at the baseline at the end of the operation. Complication: None Mireille Zurita MD documented in this encounter [facility] Work Phone: 03-23-2023 Nurse Note Message sent to Dr zurita and Araseli Faustin regarding patient requesting nausea medication. Araseli states she will send Patient aware [facility] Work Phone: 03-23-2023 Nurse Note Message sent to Dr zurita and Araseli Faustin regarding patient requesting nausea medication. Araseli states she will send Patient aware documented in this encounter [facility] Work Phone: 03-23-2023 Plan of care note Problem: Pain Goal: Takes deep breaths with improved pain control throughout the shift Outcome: Progressing Goal: Turns in bed with improved pain control throughout the shift Outcome: Progressing Goal: Walks with improved pain control throughout the shift Outcome: Progressing Goal: Performs ADL's with improved pain control throughout shift Outcome: Progressing Goal: Participates in PT with improved pain control throughout the shift Outcome: Progressing Goal: Free from opioid side effects throughout the shift Outcome: Progressing Goal: Free from acute confusion related to pain meds throughout the shift Outcome: Progressing Problem: Skin Goal: Decreased wound size/increased tissue granulation at next dressing change Outcome: Progressing Goal: Participates in plan/prevention/treatment measures Outcome: Progressing Goal: Prevent/manage excess moisture Outcome: Progressing Goal: Prevent/minimize sheer/friction injuries Outcome: Progressing Goal: Promote/optimize nutrition Outcome: Progressing Goal: Promote skin healing Outcome: Progressing Problem: Fall/Injury Goal: Not fall by end of shift Outcome: Progressing Goal: Be free from injury by end of the shift Outcome: Progressing Goal: Verbalize understanding of personal risk factors for fall in the hospital Outcome: Progressing Goal: Verbalize understanding of risk factor reduction measures to prevent injury from fall in the home Outcome: Progressing Goal: Use assistive devices by end of the shift Outcome: Progressing Goal: Pace activities to prevent fatigue by end of the shift Outcome: Progressing [facility] Work Phone: 03-23-2023 Hospital course Narrative Discharge Diagnosis Preop testing Issues Requiring Follow-Up Surgical incision assessment Test Results Pending At Discharge Pending Labs No current pending labs. Hospital Course Admitted for cervical spinal fusion on 03/21/2023. Underwent ACDF C4 - 7 on 03/21/2023, by Dr. Mireille Zurita Surgical drain removed on POD#1 Tolerated oral intake well Voiding QS Ambulated in halls easily Pertinent Physical Exam At Time of Discharge Physical Exam A&O x 4, speech clear / fluent BLANK readily Cervical collar in place Voiding QS Tolerating oral intake easily Home Medications Medication List ASK your doctor about these medications amLODIPine 10 mg tablet; Commonly known as: Norvasc atorvastatin 20 mg tablet; Commonly known as: Lipitor cholecalciferol 25 MCG (1000 UT) capsule; Commonly known as: Vitamin D-3 donepezil 5 mg tablet; Commonly known as: Aricept ferrous sulfate (325 mg ferrous sulfate) tablet gabapentin 300 mg capsule; Commonly known as: Neurontin hydroCHLOROthiazide 25 mg tablet; Commonly known as: HYDRODiuril labetalol 200 mg tablet; Commonly known as: Normodyne lansoprazole [address] capsule; Commonly known as: Prevacid losartan 50 mg tablet; Commonly known as: Cozaar potassium chloride CR 10 mEq ER tablet; Commonly known as: Klor-Con venlafaxine 75 mg tablet; Commonly known as: Effexor Outpatient Follow-Up Future Appointments Date Time Provider Department Center 04/07/2023 1:00 PM [facility] [id number] [place] 05/12/2023 8:30 AM Mireille Zurita MD [id number] [place] 06/16/2023 10:30 AM Mireille Zurita MD [id number] [place] [facility] documented in this encounter [facility] Work Phone: 03-23-2023 Hospital Discharge instructions Araseli Anguiano [facility] - 03/23/2023 5:28 AM EST May shower. Do not let water directly flow on incision. Dab / pat incision dry. DO NOT TOUCH INCISION Wear cervical collar at all times Walk hourly while awake. May not drive while wearing cervical collar. Keep hydrated. Soft regular diet documented in this encounter [facility] Work Phone: 03-22-2023 History of Present illness Narrative 03/22/23 1446 Discharge Planning Living Arrangements Alone Support Systems Family members Assistance Needed independent prior to admission Type of Residence Private residence Number of Stairs to Enter Residence 3 Do you have animals or pets at home? Yes Type of Animals or Pets 1 dog, 3 cats Patient expects to be discharged to: home 03/22/2023 Met with pt in room, introduced self and explained role. Verified insurance, address, phone. PCP- [facility] in [place] Pt is from home, lives alone-- will be having niece stay with her after discharge. Has a rollator and cane if needed. Has grab bars and a shower seat. PT- no further PT needs. Pt stated she has family to help and does not feel she will have any other needs. Nella Murillo RN [facility] Physical Therapy Physical Therapy Evaluation Patient Name: Mary Goode Today's Date: 03/22/2023 Time Calculation Start Time: 938 Stop Time: 956 Time Calculation (min): 18 min Assessment/Plan PT Assessment PT Assessment Results: (good) End of Session Communication: Bedside nurse End of Session Patient Position: Bed, 2 rail up, Alarm off, not on at start of session IP OR SWING BED PT PLAN Inpatient or Swing Bed: Inpatient PT Plan PT Plan: PT Eval only PT Eval Only Reason: No acute PT needs identified PT Frequency: PT eval only (indep bed/txs, amb, only needs cga/sba for safety on stairs as pt unable to turn head, look /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 stairs d/t c-collar PT Discharge Recommendations: No further acute PT, No PT needed after discharge PT - OK to Discharge: Yes Subjective General Visit Information: General Reason for Referral: (cervical spinal stenosis, spondylosis w/ myelopathy, 03/21 c3-4, c4-5, c6-7, anterior disc excision, fusion and fixasion) Past Medical History Relevant to Rehab: (chronic neck pain w/ n&t b arms/legs causing loss of sleep and limitations, vp research shunt, r artery aneurysm repair, sob w/ exertion) Prior to Session Communication: Bedside nurse General Comment: (pt in aspen cervial collar throuhout pt eval) Home Living: Home Living Type of Home: (bed/bath on 1st floor, 3 step w/o hr , pt using wall for support, laundry in basement) Lives With: Alone (will have friends assist x2 weeks, + has support from friends) Home Adaptive Equipment: (rollator, qc, sc,) Prior Level of Function: Prior Function Per Pt/Caregiver Report Level of [place]: (indep) Homemaking Assistance: (indep home mgmt and driving) Precautions: Precautions Precautions Comment: (aspen c-collar, up in chair) Vital Signs: Objective Pain: Pain Assessment Pain Assessment: (3-4/10 sx site) Sensation numbness tingling Cognition: Cognition Overall Cognitive Status: Within Functional Limits Activity Tolerance Endurance: (good) Functional Assessments: Bed Mobility Bed Mobility: (indep in/oob log roll tech) Transfers Transfer: (indep) Ambulation/Gait Training Ambulation/Gait Training Performed: (indep w/o ad ~120ft, slowed, steady) Stairs Stairs: (up/down 4 steps w/ hr and straight cane w/ sba/cga of 1, instructed in 1 step at a time as c/o r knee instabilty, pt continues reciprocal step pattern, recommend installation of 1 hr for improved safety) Extremity/Trunk Assessments: RLE RLE : (wfl) LLE LLE : Within Functional Limits Outcome Measures: AMPAC Basic Mobility Turning from your back to your side while in a flat bed without using bedrails: None Moving from lying on your back to sitting on the side of a flat bed without using bedrails: None Moving to and from bed to chair (including a wheelchair): None Standing up from a chair using your arms (e.g. wheelchair or bedside chair): None To walk in hospital room: None Climbing 3-5 steps with railing: A little Basic Mobility - Total Score: 23 Education pt educated on fxal mob, wearing c-collar, log roll techs use of Occupational Therapy Evaluation Patient Name: Mary Goode Today's Date: 03/22/2023 Time Calculation Start Time: 937 Stop Time: 956 Time Calculation (min): 19 min Assessment: Prognosis: Good End of Session Communication: Bedside nurse End of Session Patient Position: Bed, 2 rail up Plan: No Skilled OT: Independent with ADLs OT Discharge Recommendations: No further acute OT (Patient reports she will have initial 24 hour support at home) OT - OK to Discharge: Yes Subjective Current Problem: 1. Spine disorder 2. Preop testing Staphylococcus aureus/MRSA colonization, Culture Comprehensive metabolic panel Comprehensive metabolic panel Comprehensive metabolic panel 3. Cervical spondylosis with myelopathy Coagulation Screen Coagulation Screen CBC CBC Phosphorus Phosphorus XR cervical spine 1 view XR cervical spine 1 view CANCELED: Renal Function Panel CANCELED: Renal Function Panel CANCELED: XR chest 1 view CANCELED: XR chest 1 view 4. Coagulation defect, unspecified (CMS/HCC) Coagulation Screen Coagulation Screen 5. Spinal stenosis, cervical region 6. 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 Bed/bath 1st floor, independent without device, drives. Owns rollator, cane, tub/shower with seat, grab bar & hand held shower,) Prior Function: Level of [place]: Independent with ADLs and functional transfers ADL: Eating Assistance: Independent Grooming Assistance: Independent UE Dressing Assistance: Independent LE Dressing Assistance: Independent Toileting Assistance with Device: Modified independent ADL Comments: able to cross BLE to don socks; independent balance in standing Bed Mobility/Transfers: Bed Mobility: (modified independent log rolling) Transfer: (independent sit to stand and mobility without device; patient reports independent to/from bathroom/toilet) Sensation: Sensation Comment: slight numbness in fingers bilaterally Coordination: Movements are Fluid and Coordinated: Yes Hand Function: Gross Grasp: Functional Extremities: RUE : Within Functional Limits LUE: Within Functional Limits Outcome Measures:[facility] Daily Activity Putting on and taking off regular lower body clothing: None Bathing (including washing, rinsing, drying): None Putting on and taking off regular upper body clothing: None Toileting, which includes using toilet, bedpan or urinal: None Taking care of personal grooming such as brushing teeth: None Eating Meals: None Daily Activity - Total Score: 24 Education Documentation Body Mechanics, taught by Marybeth Connors OT at 03/22/2023 12:11 PM. Learner: Patient Readiness: Acceptance Method: Explanation, Demonstration Response: Verbalizes Understanding, Demonstrated Understanding Precautions, taught by Marybeth Connors OT at 03/22/2023 12:11 PM. Learner: Patient Readiness: Acceptance Method: Explanation, Demonstration Response: Verbalizes Understanding, Demonstrated Understanding ADL Training, taught by Marybeth Connors OT at 03/22/2023 12:11 PM. Learner: Patient Readiness: Acceptance Method: Explanation, Demonstration Response: Verbalizes Understanding, Demonstrated Understanding EDUCATION: Education Individual(s) Educated: Patient Education Provided: (body mechanics and post op/cervical precautions, compensatory techs for ADLs) Patient/Caregiver Demonstrated Understanding: yes documented in this encounter [facility] Work Phone: 03-22-2023 Consult note Associated Order (s): Inpatient consult to Medicine Inpatient consult to Medicine Consult performed by: Leticia Farris APRN-COIL REWIND MACHINE OPERATOR Consult ordered by: Mary Patrick APRN-COLLEGE SPECIALIST Reason for consult: medical management History Of Present Illness Mary Goode is a 72 y.o. female who is POD #1 C3-4, C4-5, C5-6, C6-7 ANTERIOR DISC EXCISION/ ALLOGRAFT FUSION for cervical stenosis. Review of Systems The pt says her pain is controlled, denies SOB and nausea. She is in good spirits. ENT was consulted intraoperatively for enlarged thyroid gland. No acute findings were made but discharge is delayed for observation. Past Medical History She has a past medical history of Anxiety, Cataract, GERD (gastroesophageal reflux disease), HL (hearing loss), Hyperlipidemia, Hypertension, WAQAS (iron deficiency anemia), Meningitis spinal, Paraesophageal hernia, Refusal of blood transfusions as patient is Jew, Renal artery aneurysm (CMS/HCC), Scoliosis, and Sleep apnea. Surgical History She has a past surgical history that includes Appendectomy; Tonsillectomy; Sinus surgery; Cardiac catheterization; Hiatal hernia repair; Hysterectomy; Colonoscopy; Upper gastrointestinal endoscopy; Ventriculoperitoneal shunt (2008); Oophorectomy; Foot surgery; and Arterial aneurysm repair (2012). Social History She reports that she has never smoked. Her smokeless tobacco use includes chew. She reports current alcohol use. She reports that she does not currently use drugs. Family History No family history on file. Allergies Patient has no known allergies. Vitals: 03/22/23 1207 BP: 137/67 Pulse: 95 Resp: 18 Temp: 37.3 C (99.1 F) SpO2: 96% Vitals: 03/21/23 0633 Weight: 78 kg (171 lb 15.3 oz) Scheduled medications acetaminophen, 975 mg, oral, q8h amLODIPine, 10 mg, oral, Daily atorvastatin, 20 mg, oral, Nightly docusate sodium, 100 mg, oral, BID donepezil, 5 mg, oral, Daily ferrous sulfate (325 mg ferrous sulfate), 65 mg of iron, oral, Daily with breakfast hydroCHLOROthiazide, 25 mg, oral, Daily labetalol, 1 tablet, oral, BID losartan, 50 mg, oral, Daily pantoprazole, 40 mg, oral, Daily before breakfast Or pantoprazole, 40 mg, intravenous, Daily before breakfast potassium chloride CR, 10 mEq, oral, Daily venlafaxine, 75 mg, oral, TID with meals Continuous medications lactated Ringer's, 100 mL/hr, Last Rate: Stopped (03/21/23 1251) lactated Ringer's, 100 mL/hr, Last Rate: 100 mL/hr (03/22/23 0929) PRN medications PRN medications: cyclobenzaprine, morphine, naloxone, ondansetron OR ondansetron, oxyCODONE, oxyCODONE, oxygen Results for orders placed or performed during the hospital encounter of 03/21/23 (from the past 24 hour(s)) CBC Result Value Ref Range WBC 12.1 (H) 4.4 - 11.3 x10*3/uL nRBC 0.0 0.0 - 0.0 /100 WBCs RBC 3.84 (L) 4.00 - 5.20 x10*6/uL Hemoglobin 11.6 (L) 12.0 - 16.0 g/dL Hematocrit 36.7 36.0 - 46.0 % MCV 96 80 - 100 fL MCH 30.2 26.0 - 34.0 pg MCHC 31.6 (L) 32.0 - 36.0 g/dL RDW 13.5 11.5 - 14.5 % Platelets 330 150 - 450 x10*3/uL Basic metabolic panel Result Value Ref Range Glucose 109 (H) 74 - 99 mg/dL Sodium 135 (L) 136 - 145 mmol/L Potassium 3.9 3.5 - 5.3 mmol/L Chloride 102 98 - 107 mmol/L Bicarbonate 26 21 - 32 mmol/L Anion Gap 11 10 - 20 mmol/L Urea Nitrogen 11 6 - 23 mg/dL Creatinine 0.83 0.50 - 1.05 mg/dL eGFR 76 >60 mL/min/1.73m*2 Calcium 8.8 8.6 - 10.3 mg/dL Constitutional: Well developed, awake, alert, oriented x3, no distress, cooperative, pleasant Eyes: EOMI, clear sclera ENMT: mucous membranes moist, no lesions seen Head/Neck: Hard C-collar in place, head atraumatic Respiratory/Thorax: CTAB, good chest expansion, respirations even and unlabored Cardiovascular: Regular rate and rhythm, no murmurs/rubs/gallops, normal S1 and S 2 Gastrointestinal: Abdomen nondistended, soft, nontender, +BS, no bruits Musculoskeletal: ROM intact, no joint swelling, normal strength Extremities: no cyanosis, edema, contusions or clubbing Neurological: no focal deficit, pt alert and oriented x3 Psychological: Appropriate affect and behavior Skin: Warm and dry, no lesions, no rashes Assessment/Plan Cervical stenosis POD #1 C3-4, C4-5, C5-6, C6-7 ANTERIOR DISC EXCISION/ ALLOGRAFT FUSION - management per primary surgery service - continue pain and bowel regimen, pt advised to stay ahead of pain - incentive spirometry 10x/hr while awake 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 The patient's conditions and treatment plans were discussed with the GLORIA. I agree with their medical decision making as documented with below additions/exceptions. I conducted > 50% of this encounter including gathering history, reviewing the record and treatment planning. Post op care and dispo as per primary team, please call if any acute medical issues arise. Thank you for this consult Robert Mack DO [facility] Medicine [facility] Work Phone: 03-22-2023 Consult note Associated Order (s): Inpatient consult to Medicine Inpatient consult to Medicine Consult performed by: Leticia Farris APRN-[facility] Consult ordered by: Mary Patrick APRN-COLLEGE SPECIALIST Reason for consult: medical management History Of Present Illness Mary Goode is a 72 y.o. female who is POD #1 C3-4, C4-5, C5-6, C6-7 ANTERIOR DISC EXCISION/ ALLOGRAFT FUSION for cervical stenosis. Review of Systems The pt says her pain is controlled, denies SOB and nausea. She is in good spirits. ENT was consulted intraoperatively for enlarged thyroid gland. No acute findings were made but discharge is delayed for observation. Past Medical History She has a past medical history of Anxiety, Cataract, GERD (gastroesophageal reflux disease), HL (hearing loss), Hyperlipidemia, Hypertension, WAQAS (iron deficiency anemia), Meningitis spinal, Paraesophageal hernia, Refusal of blood transfusions as patient is Jew, Renal artery aneurysm (CMS/HCC), Scoliosis, and Sleep apnea. Surgical History She has a past surgical history that includes Appendectomy; Tonsillectomy; Sinus surgery; Cardiac catheterization; Hiatal hernia repair; Hysterectomy; Colonoscopy; Upper gastrointestinal endoscopy; Ventriculoperitoneal shunt (2008); Oophorectomy; Foot surgery; and Arterial aneurysm repair (2012). Social History She reports that she has never smoked. Her smokeless tobacco use includes chew. She reports current alcohol use. She reports that she does not currently use drugs. Family History No family history on file. Allergies Patient has no known allergies. Vitals: 03/22/23 1207 BP: 137/67 Pulse: 95 Resp: 18 Temp: 37.3 C (99.1 F) SpO2: 96% Vitals: 03/21/23 0633 Weight: 78 kg (171 lb 15.3 oz) Scheduled medications acetaminophen, 975 mg, oral, q8h amLODIPine, 10 mg, oral, Daily atorvastatin, 20 mg, oral, Nightly docusate sodium, 100 mg, oral, BID donepezil, 5 mg, oral, Daily ferrous sulfate (325 mg ferrous sulfate), 65 mg of iron, oral, Daily with breakfast hydroCHLOROthiazide, 25 mg, oral, Daily labetalol, 1 tablet, oral, BID losartan, 50 mg, oral, Daily pantoprazole, 40 mg, oral, Daily before breakfast Or pantoprazole, 40 mg, intravenous, Daily before breakfast potassium chloride CR, 10 mEq, oral, Daily venlafaxine, 75 mg, oral, TID with meals Continuous medications lactated Ringer's, 100 mL/hr, Last Rate: Stopped (03/21/23 1251) lactated Ringer's, 100 mL/hr, Last Rate: 100 mL/hr (03/22/23 0972) PRN medications PRN medications: cyclobenzaprine, morphine, naloxone, ondansetron OR ondansetron, oxyCODONE, oxyCODONE, oxygen Results for orders placed or performed during the hospital encounter of 03/21/23 (from the past 24 hour(s)) CBC Result Value Ref Range WBC 12.1 (H) 4.4 - 11.3 x10*3/uL nRBC 0.0 0.0 - 0.0 /100 WBCs RBC 3.84 (L) 4.00 - 5.20 x10*6/uL Hemoglobin 11.6 (L) 12.0 - 16.0 g/dL Hematocrit 36.7 36.0 - 46.0 % MCV 96 80 - 100 fL MCH 30.2 26.0 - 34.0 pg MCHC 31.6 (L) 32.0 - 36.0 g/dL RDW 13.5 11.5 - 14.5 % Platelets 330 150 - 450 x10*3/uL Basic metabolic panel Result Value Ref Range Glucose 109 (H) 74 - 99 mg/dL Sodium 135 (L) 136 - 145 mmol/L Potassium 3.9 3.5 - 5.3 mmol/L Chloride 102 98 - 107 mmol/L Bicarbonate 26 21 - 32 mmol/L Anion Gap 11 10 - 20 mmol/L Urea Nitrogen 11 6 - 23 mg/dL Creatinine 0.83 0.50 - 1.05 mg/dL eGFR 76 >60 mL/min/1.73m*2 Calcium 8.8 8.6 - 10.3 mg/dL Constitutional: Well developed, awake, alert, oriented x3, no distress, cooperative, pleasant Eyes: EOMI, clear sclera ENMT: mucous membranes moist, no lesions seen Head/Neck: Hard C-collar in place, head atraumatic Respiratory/Thorax: CTAB, good chest expansion, respirations even and unlabored Cardiovascular: Regular rate and rhythm, no murmurs/rubs/gallops, normal S1 and S 2 Gastrointestinal: Abdomen nondistended, soft, nontender, +BS, no bruits Musculoskeletal: ROM intact, no joint swelling, normal strength Extremities: no cyanosis, edema, contusions or clubbing Neurological: no focal deficit, pt alert and oriented x3 Psychological: Appropriate affect and behavior Skin: Warm and dry, no lesions, no rashes Assessment/Plan Cervical stenosis POD #1 C3-4, C4-5, C5-6, C6-7 ANTERIOR DISC EXCISION/ ALLOGRAFT FUSION - management per primary surgery service - continue pain and bowel regimen, pt advised to stay ahead of pain - incentive spirometry 10x/hr while awake 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 The patient's conditions and treatment plans were discussed with the GLORIA. I agree with their medical decision making as documented with below additions/exceptions. I conducted > 50% of this encounter including gathering history, reviewing the record and treatment planning. Post op care and dispo as per primary team, please call if any acute medical issues arise. Thank you for this consult Robert Mack DO [facility] Reason For Consult Intra-op evaluation of thyroid gland. History Of Present Illness Mray Goode is a 72 y.o. female presenting with spinal stenosis of cervical region on surgical procedure C3-4, C4-5, C5-6, C6-7 anterior disc excision/allograft fusion & plate fixation with flat plate cervical x-ray w/Dr Zurita on 03/21/2023 Past Medical History She has a past medical history of Anemia, Anxiety, Arthritis, Cataract, Chronic kidney disease, Fibroid, GERD (gastroesophageal reflux disease), HL (hearing loss), Hyperlipidemia, Hypertension, Scoliosis, Sleep apnea, and Vision loss. Surgical History She has a past surgical history that includes Appendectomy; Tonsillectomy; Sinus surgery; Cardiac catheterization; Hiatal hernia repair; Hysterectomy; Colonoscopy; Upper gastrointestinal endoscopy; Ventriculoperitoneal shunt; Oophorectomy; and Foot surgery. Social History She reports that she has never smoked. She has never used smokeless tobacco. She reports that she does not currently use drugs. No history on file for alcohol use. Family History No family history on file. Allergies Patient has no known allergies. Review of Systems Physical Exam Dr Tang asked me to join procedure due to exposure of tyroid gland during cervical dissection. I've scrubbed into procedure and evaluated gland and neighboring vessels anatomy. At this time although exposed with incision on glands capsule no significant lesions were noted to gland. No nerve lesion or vessel lesions associated. Such findings are discussed and Dr Tang that continues procedure without any limitation. Last Recorded Vitals Blood pressure 130/58, pulse 66, temperature 36.2 C (97.2 F), temperature source Temporal, resp. rate 18, height 1.575 m (5' 2 ), weight 78 kg (171 lb 15.3 oz), SpO2 97 %. Relevant Results Assessment/Plan No significant lesion to thyroid gland but only minor incision to gland's capsule. Neighboring anatomy is identified after thorough surgical examination and no lesions are noted. At this time no further plan is necessary and return with head and neck only if patient presents any symptoms. I spent 35 minutes in the professional and overall care of this patient. Fernando Christine MD documented in this encounter [facility] Work Phone: 03-22-2023 Plan of care note Problem: Pain Goal: Takes deep breaths with improved pain control throughout the shift 03/22/2023927 by Beth Bronson RN Outcome: Progressing 03/22/2023925 by Beth Bronson RN Outcome: Progressing 03/22/2023921 by Beth Bronson RN Outcome: Progressing Goal: Turns in bed with improved pain control throughout the shift 03/22/2023927 by Beth Bronson RN Outcome: Progressing 03/22/2023925 by Beth Bronson RN Outcome: Progressing 03/22/2023921 by Beth Bronson RN Outcome: Progressing Goal: Walks with improved pain control throughout the shift 03/22/2023927 by Beth Bronson RN Outcome: Progressing 03/22/2023925 by Beth Bronson RN Outcome: Progressing 03/22/2023921 by Beth Bronson RN Outcome: Progressing Goal: Performs ADL's with improved pain control throughout shift 03/22/2023927 by Beth Bronson RN Outcome: Progressing 03/22/2023925 by Beth Bronson RN Outcome: Progressing 03/22/2023921 by Beth Bronson RN Outcome: Progressing Goal: Participates in PT with improved pain control throughout the shift 03/22/2023927 by Beth Bronson RN Outcome: Progressing 03/22/2023925 by Beth Bronson RN Outcome: Progressing 03/22/2023921 by Beth Bronson RN Outcome: Progressing Goal: Free from opioid side effects throughout the shift 03/22/2023927 by Beth Bronson RN Outcome: Progressing 03/22/2023925 by Beth Bronson RN Outcome: Progressing 03/22/2023921 by Beth Bronson RN Outcome: Progressing Goal: Free from acute confusion related to pain meds throughout the shift 03/22/2023927 by Beth Bronson RN Outcome: Progressing 03/22/2023925 by Beth Bronson RN Outcome: Progressing 03/22/2023921 by Beth Bronson RN Outcome: Progressing Problem: Skin Goal: Decreased wound size/increased tissue granulation at next dressing change 03/22/2023927 by Beth Bronson RN Outcome: Progressing 03/22/2023925 by Beth Bronson RN Outcome: Progressing 03/22/2023921 by Beth Bronson RN Outcome: Progressing Goal: Participates in plan/prevention/treatment measures 03/22/2023927 by Beth Bronson RN Outcome: Progressing 03/22/2023925 by Beth Bronson RN Outcome: Progressing 03/22/2023921 by Beth Bronson RN Outcome: Progressing Goal: Prevent/manage excess moisture 03/22/2023927 by Beth Bronson RN Outcome: Progressing 03/22/2023925 by Beth Bronson RN Outcome: Progressing 03/22/2023921 by Beth Bronson RN Outcome: Progressing Goal: Prevent/minimize sheer/friction injuries 03/22/2023927 by Beth Bronson RN Outcome: Progressing 03/22/2023925 by Beth Bronson RN Outcome: Progressing 03/22/2023921 by Beth Bronson RN Outcome: Progressing Goal: Promote/optimize nutrition 03/22/2023927 by Beth Bronson, RN Outcome: Progressing 03/22/2023925 by Beth Bronson RN Outcome: Progressing 03/22/2023921 by Beth Bronson RN Outcome: Progressing Goal: Promote skin healing 03/22/2023927 by Beth Bronson RN Outcome: Progressing 03/22/2023925 by Beth Bronson RN Outcome: Progressing 03/22/2023921 by Beth Bronson RN Outcome: Progressing Problem: Fall/Injury Goal: Not fall by end of shift 03/22/2023927 by Beth Bronson RN Outcome: Progressing 03/22/2023925 by Beth Bronson RN Outcome: Progressing 03/22/2023921 by Beth Bronson RN Outcome: Progressing Goal: Be free from injury by end of the shift 03/22/2023927 by Beth Bronson, MINDY Outcome: Progressing 03/22/2023925 by Beth Bronson RN Outcome: Progressing 03/22/2023921 by Beth Bronson RN Outcome: Progressing Goal: Verbalize understanding of personal risk factors for fall in the hospital 03/22/2023927 by Beth Bronson, MINDY Outcome: Progressing 03/22/2023925 by Beth Bronson RN Outcome: Progressing 03/22/2023921 by Beth Bronson RN Outcome: Progressing Goal: Verbalize understanding of risk factor reduction measures to prevent injury from fall in the home 03/22/2023927 by Beth Bronson RN Outcome: Progressing 03/22/2023925 by Beth Bronson, RN Outcome: Progressing 03/22/2023921 by Beth Bronson RN Outcome: Progressing Goal: Use assistive devices by end of the shift 03/22/2023927 by Beth Bronson RN Outcome: Progressing 03/22/2023925 by Beth Bronson RN Outcome: Progressing 03/22/2023921 by Beth Bronson RN Outcome: Progressing Goal: Pace activities to prevent fatigue by end of the shift 03/22/2023927 by Beth Bronson RN Outcome: Progressing 03/22/2023925 by Beth Bronson RN Outcome: Progressing 03/22/2023921 by Beth Bronson RN Outcome: Progressing [facility] Work Phone: 03-22-2023 Plan of care note Problem: Pain Goal: Takes deep breaths with improved pain control throughout the shift 03/22/2023925 by Beth Bronson RN Outcome: Progressing 03/22/2023921 by Beth Bronson RN Outcome: Progressing Goal: Turns in bed with improved pain control throughout the shift 03/22/2023925 by Beth Bronson RN Outcome: Progressing 03/22/2023921 by Beth Bronson RN Outcome: Progressing Goal: Walks with improved pain control throughout the shift 03/22/2023925 by Beth Bronson RN Outcome: Progressing 03/22/2023921 by Beth Bronson RN Outcome: Progressing Goal: Performs ADL's with improved pain control throughout shift 03/22/2023925 by Beth Bronson RN Outcome: Progressing 03/22/2023921 by Beth Bronson RN Outcome: Progressing Goal: Participates in PT with improved pain control throughout the shift 03/22/2023925 by Beth Bronson RN Outcome: Progressing 03/22/2023921 by Beth Bronson RN Outcome: Progressing Goal: Free from opioid side effects throughout the shift 03/22/2023925 by Beth Bronson RN Outcome: Progressing 03/22/2023921 by Beth Bronson RN Outcome: Progressing Goal: Free from acute confusion related to pain meds throughout the shift 03/22/2023925 by eBth Bronson RN Outcome: Progressing 03/22/2023921 by Beth Bronson RN Outcome: Progressing Problem: Skin Goal: Decreased wound size/increased tissue granulation at next dressing change 03/22/2023925 by Beth Bronson RN Outcome: Progressing 03/22/2023921 by Beth Bronson RN Outcome: Progressing Goal: Participates in plan/prevention/treatment measures 03/22/2023925 by Beth Bronson RN Outcome: Progressing 03/22/2023921 by Beth Bronson RN Outcome: Progressing Goal: Prevent/manage excess moisture 03/22/2023925 by Beth Bronson RN Outcome: Progressing 03/22/2023921 by Beth Bronson RN Outcome: Progressing Goal: Prevent/minimize sheer/friction injuries 03/22/2023925 by Beth Bronson RN Outcome: Progressing 03/22/2023921 by Beth Bronson RN Outcome: Progressing Goal: Promote/optimize nutrition 03/22/2023925 by Beth Bronson RN Outcome: Progressing 03/22/2023921 by Beth Bronson RN Outcome: Progressing Goal: Promote skin healing 03/22/2023925 by Beth Bronson RN Outcome: Progressing 03/22/2023921 by Beth Bronson RN Outcome: Progressing Problem: Fall/Injury Goal: Not fall by end of shift 03/22/2023925 by Beth Bronson RN Outcome: Progressing 03/22/2023921 by Beth Bronson RN Outcome: Progressing Goal: Be free from injury by end of the shift 03/22/2023925 by Beth Bronson RN Outcome: Progressing 03/22/2023921 by Beth Bronson RN Outcome: Progressing Goal: Verbalize understanding of personal risk factors for fall in the hospital 03/22/2023925 by Beth Bronson RN Outcome: Progressing 03/22/2023921 by Beth Bronson RN Outcome: Progressing Goal: Verbalize understanding of risk factor reduction measures to prevent injury from fall in the home 03/22/2023925 by Bteh Bronson RN Outcome: Progressing 03/22/2023921 by Beth Bronson RN Outcome: Progressing Goal: Use assistive devices by end of the shift 03/22/2023925 by Beth Bronson RN Outcome: Progressing 03/22/2023921 by Beth Bronson RN Outcome: Progressing Goal: Pace activities to prevent fatigue by end of the shift 03/22/2023925 by Beth Bronson RN Outcome: Progressing 03/22/2023921 by Beth Bronson RN Outcome: Progressing [facility] Work Phone: 03-22-2023 Plan of care note Problem: Pain Goal: Takes deep breaths with improved pain control throughout the shift Outcome: Progressing Goal: Turns in bed with improved pain control throughout the shift Outcome: Progressing Goal: Walks with improved pain control throughout the shift Outcome: Progressing Goal: Performs ADL's with improved pain control throughout shift Outcome: Progressing Goal: Participates in PT with improved pain control throughout the shift Outcome: Progressing Goal: Free from opioid side effects throughout the shift Outcome: Progressing Goal: Free from acute confusion related to pain meds throughout the shift Outcome: Progressing Problem: Skin Goal: Decreased wound size/increased tissue granulation at next dressing change Outcome: Progressing Goal: Participates in plan/prevention/treatment measures Outcome: Progressing Goal: Prevent/manage excess moisture Outcome: Progressing Goal: Prevent/minimize sheer/friction injuries Outcome: Progressing Goal: Promote/optimize nutrition Outcome: Progressing Goal: Promote skin healing Outcome: Progressing Problem: Fall/Injury Goal: Not fall by end of shift Outcome: Progressing Goal: Be free from injury by end of the shift Outcome: Progressing Goal: Verbalize understanding of personal risk factors for fall in the hospital Outcome: Progressing Goal: Verbalize understanding of risk factor reduction measures to prevent injury from fall in the home Outcome: Progressing Goal: Use assistive devices by end of the shift Outcome: Progressing Goal: Pace activities to prevent fatigue by end of the shift Outcome: Progressing [facility] Work Phone: 03-22-2023 Note Formatting of this n ote might be different from the original. Feels well this morning Cervical surgical drain output = 75 mL postoperatively Tolerating oral intake well ABHAY readily Voiding QS Observed her ambulating in room, steadily Surgical drain removed without incident. Sterile bandaid applied to site POD#1 ACDF C3 - [address] Mireille Zurita: Progressing well, tolerating oral intake, pain controlled - Post op x-rays reviewed; hardware in place - PT / OT for discharge planning. Plan for discharge home 03/23/2023 PUSH[place] [facility] Work Phone: 03-21-2023 Plan of care note Problem: Pain Goal: Takes deep breaths with improved pain control throughout the shift Outcome: Progressing Goal: Turns in bed with improved pain control throughout the shift Outcome: Progressing Goal: Walks with improved pain control throughout the shift Outcome: Progressing Goal: Performs ADL's with improved pain control throughout shift Outcome: Progressing Goal: Participates in PT with improved pain control throughout the shift Outcome: Progressing Goal: Free from opioid side effects throughout the shift Outcome: Progressing Goal: Free from acute confusion related to pain meds throughout the shift Outcome: Progressing Problem: Skin Goal: Decreased wound size/increased tissue granulation at next dressing change Outcome: Progressing Goal: Participates in plan/prevention/treatment measures Outcome: Progressing Goal: Prevent/manage excess moisture Outcome: Progressing Goal: Prevent/minimize sheer/friction injuries Outcome: Progressing Goal: Promote/optimize nutrition Outcome: Progressing Goal: Promote skin healing Outcome: Progressing The patient's goals for the shift include pain control The clinical goals for the shift include pain control [facility] 03-21-2023 Plan of care note Problem: Pain Goal: Takes deep breaths with improved pain control throughout the shift Outcome: Progressing Goal: Turns in bed with improved pain control throughout the shift Outcome: Progressing Goal: Walks with improved pain control throughout the shift Outcome: Progressing Goal: Performs ADL's with improved pain control throughout shift Outcome: Progressing Goal: Participates in PT with improved pain control throughout the shift Outcome: Progressing Goal: Free from opioid side effects throughout the shift Outcome: Progressing Goal: Free from acute confusion related to pain meds throughout the shift Outcome: Progressing Problem: Skin Goal: Decreased wound size/increased tissue granulation at next dressing change Outcome: Progressing Goal: Participates in plan/prevention/treatment measures Outcome: Progressing Goal: Prevent/manage excess moisture Outcome: Progressing Goal: Prevent/minimize sheer/friction injuries Outcome: Progressing Goal: Promote/optimize nutrition Outcome: Progressing Goal: Promote skin healing Outcome: Progressing [facility] Work Phone: 03-21-2023 Consult note Formatting of th is note might be different from the original. Reason For Consult Intra-op evaluation of thyroid gland. History Of Present Illness Mary Goode is a 72 y.o. female presenting with spinal stenosis of cervical region on surgical procedure C3-4, C4-5, C5-6, C6-7 anterior disc excision/allograft fusion & plate fixation with flat plate cervical x-ray w/Dr Zurita on 03/21/2023 Past Medical History She has a past medical history of Anemia, Anxiety, Arthritis, Cataract, Chronic kidney disease, Fibroid, GERD (gastroesophageal reflux disease), HL (hearing loss), Hyperlipidemia, Hypertension, Scoliosis, Sleep apnea, and Vision loss. Surgical History She has a past surgical history that includes Appendectomy; Tonsillectomy; Sinus surgery; Cardiac catheterization; Hiatal hernia repair; Hysterectomy; Colonoscopy; Upper gastrointestinal endoscopy; Ventriculoperitoneal shunt; Oophorectomy; and Foot surgery. Social History She reports that she has never smoked. She has never used smokeless tobacco. She reports that she does not currently use drugs. No history on file for alcohol use. Family History No family history on file. Allergies Patient has no known allergies. Review of Systems Physical Exam Dr Tang asked me to join procedure due to exposure of tyroid gland during cervical dissection. I've scrubbed into procedure and evaluated gland and neighboring vessels anatomy. At this time although exposed with incision on glands capsule no significant lesions were noted to gland. No nerve lesion or vessel lesions associated. Such findings are discussed and Dr Tang that continues procedure without any limitation. Last Recorded Vitals Blood pressure 130/58, pulse 66, temperature 36.2 C (97.2 F), temperature source Temporal, resp. rate 18, height 1.575 m (5' 2 ), weight 78 kg (171 lb 15.3 oz), SpO2 97 %. Relevant Results Assessment/Plan No significant lesion to thyroid gland but only minor incision to gland's capsule. Neighboring anatomy is identified after thorough surgical examination and no lesions are noted. At this time no further plan is necessary and return with head and neck only if patient presents any symptoms. I spent 35 minutes in the professional and overall care of this patient. Fernando Christine MD [facility] Work Phone: 03-21-2023 Note Formatting of this n ote is different from the original. 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 We inspected together and we did not see any damage. Estimated Blood Loss: 75 cc Drains: Retropharyngeal drain and Rodrigues catheter Specimen:No specimens collected Implants: Implant Name Type Inv. Item Serial No. Electronic Calibration Technician Lot No. LRB No. Used Action ALLOGRAFT, TRIAD LORDOTIC 7 X 11 X 14 - [id number] - [id number] Spinal Hardware ALLOGRAFT, TRIAD LORDOTIC 7 X 11 X 14 [id number] [employer] N/A 1 Implanted ALLOGRAFT, TRIAD LORDOTIC 6 X 11 X 14 - [id number] - [id number] Spinal Hardware ALLOGRAFT, TRIAD LORDOTIC 6 X 11 X 14 [id number] [employer] N/A 1 Implanted ALLOGRAFT, TRIAD LORD[employer]IC 7 X 11 X 14 - [id number] - [id number] Spinal Hardware ALLOGRAFT, TRIAD LORD[employer]IC 7 X 11 X 14 [id number] [employer] N/A 1 Implanted ALLOGRAFT, TRIAD LORD[employer]IC 7 X 11 X 14 - [id number] - [id number] Spinal Hardware ALLOGRAFT, TRIAD LORDOTIC 7 X 11 X 14 [id number] [employer] N/A 1 Implanted SCREW, ACP, SELF DRILL, 3.5 X 15MM, VARIABLE - [id number] Spinal Hardware SCREW, ACP, SELF DRILL, 3.5 X 15MM, VARIABLE [employer] N/A 10 Implanted 70 mm 2.1 H Plate [employer] N/A 1 Implanted Procedure Detail: The patient was brought into the operating room. A timeout huddle was performed. General endotracheal tube anesthesia was administered using the glide scope intubation system. Baseline evoked potentials were obtained. Once the evoked potentials were obtained then the shoulder roll was placed shoulders and her head was placed in a beanbag mva reactor operator head. The arms were tucked by her side. An x-ray was taken to verify proper location for our skin incision. Then the area was clipped prepped and draped in the usual sterile fashion. The skin was infiltrated with local anesthetic. The skin was incised with a #15 blade. Hemostasis was obtained with the bipolar electrocautery. I undermined the skin superficial to the platysma in a rostral and caudal direction. I then incised the platysma along the long axis of its fibers in a rostral and caudal direction. I then dissected along the anterior border the sternocleidomastoid and over the top of the omohyoid muscle. Once I could palpate the carotid pulse I swept underneath the esophagus and trachea using blunt dissection. Then I freed up the connective tissue and found the appropriate disc spaces. I took an x-ray to confirm the proper levels. It was at this point that we identified the thyroid vessels and the thyroid gland. I started to dissect between 1 lobe of the gland. I stopped consulted Dr. Meadows and he was kind enough to come in and expect the gland with me. Once we are satisfied that it was in good shape we proceeded with the operation. Once we had confirmation of the proper levels I remove the anterior osteophytes with the Leksell rongeur and we saved the bone and cleaned of any connective tissue for the allograft graft and autograft fusion at the end of the procedure. I then placed a pin in the body of C3 to the pin in the body of C4 8and applied some distraction across the disc space after it had been incised with a 15 blade. I then cleaned out any of the disc material by scraping the osteophytes and the cartilaginous endplates from 1 uncinate process to the other. I then drilled the endplates parallel. I also drilled up into the foramina bilaterally. I then was able to get underneath the posterior longitudinal ligament with a 4 oh up-angled curette and then I remove the remaining osteophyte and ligament with a 2 and 1 mm Kerrison punch. I then measured the depth and measured the height of the disc base and chose the appropriate size graft. At this level I used an 7mm graft. This was tapped into position. The distraction was released and the bone plug fit snugly. On I then remove the pin from the body of C3 and replaced it into C5. Now I applied distraction across the C4-5 space after the annulus was cut with a 15 blade. I then remove the disc in the same manner we curetted out the cartilaginous endplates from 1 uncinate process to the other I then drilled the endplates parallel and drilled off the posterior osteophytes the drill mellowing out into the foramina bilaterally. Then was able to get underneath the posterior longitudinal ligament with a 4 oh up-angled curette and remove the remaining ligament and osteophyte with the 2 and 1 mm Kerrison punches. I then measured for the appropriate size allograft. At this level it was a 6 mm graft. Once it was tapped into position I then remove the pin from C4 and replaced it into the body of C6. I then remove the C5-6 disc in much the same manner. First distraction was applied after the annulus had been cut with a 15 blade. The disc contents were curetted away with the 2 oh up angled hook curette from 1 uncinate process to the other. I then drilled the endplates parallel and drilled off the posterior osteophytes out into the foramina bilaterally. I got underneath the posterior longitudinal ligament with a 4 oh up-angled curette. I removed the remaining osteophyte and ligament with a 2 and 1 mm Kerrison punch. I then measured for the appropriate size allograft. At this level I used a 7 mm allograft. Once this was tapped into position I then removed the pin from C5 and replaced it into the body of C7. The C6-7 level was cleaned out after the distraction was applied and the annulus was cut with a 15 blade. Curetted out the contents in the same manner scraping the endplates down to the bony surface from 1 uncinate process to the other. I drilled off the posterior osteophytes and got underneath the posterior longitudinal ligament with a hook curette and remove the remaining ligament and osteophyte with a 1 and 2 mm Kerrison punch. Measured for the appropriate sized graft and tapped it into position this was a 7 mm graft as well. I chose the appropriate size plate which in this case was an 70 mm plate and lined it up appropriately. I used the awl to place company pilot holes in the 5 vertebral bodies 1 on each side. I used 15 mm screws in all ten holes. I also placed the additional bone graft that had been removed from the anterior osteophytes between the allograft and the plate. And I cinched down all the screws and put my locking mechanism in place. I then allowed the esophagus and trachea to fall back into their normal position. The drain was exited through a separate stab site. It was sewn in with a 3-0 Prolene. I irrigated with copious amounts of irrigation and then I approximated the platysma with a few interrupted 3-0 Vicryl sutures I used a few inverted interrupted 3-0 Vicryl sutures in the subcutaneous issue. I then closed the skin with a subcuticular running stitch of 4-0 Vicryl and reinforced with glue. The patient was stable and tolerated the procedure well evoked potential monitoring were at the baseline at the end of the operation. Complication: None Mireille Zurita MD [facility] Work Phone: 03-21-2023 Attending History and physical note H&P reviewed. The patient was examined and there are no changes to the H&P. Source Note - Jane Carballophilliprachel, 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 - 03/14/2023 12:30 PM EST CPM/PAT Evaluation Name: Mary Goode (Mary Goode) /Age: 711/20/1950/72 y.o. In-Person Chief Complaint: spinal stenosis of cervical region 72 yr old female with c/o chronic neck pain. Reports ongoing years long progressive pain worsened by activity and position changes causing loss of sleep, numbness/tingling to both arms and hands. Reports difficulty with small tasks requiring dexterity such as buttons, clips or opening lids. Has tried medications, physical therapy, and traction with no lasting relief. Pain has caused limitations as cannot be as active as desired. Denies past issues with anesthesia. Reports current SECURITY AGENT shunt (2006), and hx of Right renal artery aneurysm repair w/coil (2012). Additionally reports is a Jehovah Witness. No past medical history on file. No past surgical history on file. Patient has no history on file for sexual activity. No family history on file. No Known Allergies Prior to Admission medications Medication Sig Start Date End Date Taking? Authorizing Provider amLODIPine (Norvasc) 10 mg tablet Take 1 tablet (10 mg) by mouth once daily. Yes Historical Provider, atorvastatin (Lipitor) 20 mg tablet Take by mouth. 02/10/23 Yes Historical Provider, cholecalciferol (Vitamin D-3) 25 MCG (1000 UT) capsule Take 1 capsule (25 mcg) by mouth once daily. Yes Historical Provider, donepezil (Aricept) 5 mg tablet Take 1 tablet (5 mg) by mouth once daily. 12/20/22 Yes Historical Provider, ferrous sulfate 325 (65 Fe) MG tablet Take 1 tablet (325 mg) by mouth once daily with a meal. Yes Historical Provider, gabapentin (Neurontin) 300 mg capsule Take 1-2 capsules (300-600 mg) by mouth once daily at bedtime. Yes Historical Provider, hydroCHLOROthiazide (HYDRODiuril) 25 mg tablet Take 1 tablet (25 mg) by mouth once daily. 06/28/06 Yes Historical Provider, labetalol (Normodyne) 200 mg tablet Take 1 tablet (200 mg) by mouth 2 times a day. Yes Historical Provider, lansoprazole (Prevacid) [address] capsule Take 1 capsule (30 mg) by mouth once daily. Yes Historical Provider, losartan (Cozaar) 50 mg tablet Take 1 tablet (50 mg) by mouth once daily. Yes Historical Provider, omeprazole (PriLOSEC) [address] capsule Take 1 capsule (40 mg) by mouth once daily. Yes Historical Provider, potassium chloride CR 10 mEq ER tablet Take 1 tablet (10 mEq) by mouth once daily. Yes Historical Provider, venlafaxine (Effexor) 75 mg tablet Take by mouth. Yes Historical Provider, ubidecarenone (CO Q-10 ORAL) Take by mouth. 03/14/23 Yes Historical Provider, aspirin (ASPIR-81 ORAL) Take 1 tablet by mouth once daily. 08/29/06 03/14/23 Historical Provider, colesevelam (Welchol) 625 mg tablet Take 3 tablets (1,875 mg) by mouth once daily at bedtime. 03/14/23 Historical Provider, diclofenac (Voltaren) 75 mg EC tablet Take 1 tablet (75 mg) by mouth 2 times a day. 03/14/23 Historical Provider, ibuprofen 800 mg tablet Take 1 tablet (800 mg) by mouth every 6 hours if needed (pain). 03/14/23 Historical Provider, Review of Systems Constitutional: no fever, no chills and not feeling poorly. Eyes: no eyesight problems. ENT: no hearing loss, no nosebleeds and no sore throat. Cardiovascular: no chest pain, no palpitations and no extremity edema. Respiratory: no shortness of breath w/rest, no wheezing, no cough, reports sob w/exertion. Gastrointestinal: no abdominal pain, no constipation, no heartburn, no diarrhea, no vomiting and no blood in stools. Genitourinary: no dysuria, no incontinence, normal micturition and no testicular pain. Musculoskeletal: no arthralgias and no gait abnormality. Integumentary: no skin lesions, no skin wound and no change in a mole. Neurological: no confusion, no dizziness, no fainting and no difficulty walking. Psychiatric: not suicidal, no anxiety and no depression. All other systems have been reviewed and are negative for complaint. Physical Exam Constitutional: General: No acute distress. Aox3, pleasant and cooperative, appropriate mood and eye contact HENT: Head: Normocephalic. Mouth/Throat: Mucous membranes moist & pink Eyes: Vision grossly intact, PERRLA, corrective lenses in use Neck: No carotid bruit, no JVD Cardiovascular: RRR, S1S2, no murmurs, rubs or gallops Pulmonary: Symmetric chest expansion, CTA, Room Air Abdominal: Soft non-tender, BSx4 Skin: Warm, dry & intact Extremities: No gross deformities; normal gait Neurological: No focal deficit, Aox3, BLANK x4 Psychiatric: Pleasant & cooperative, appropriate affect PAT AIRWAY: Airway: Mallampati:: II TM distance:: <3 FB Neck ROM:: Limited Upper and lower partials Visit Vitals BP 114/64 Pulse 78 Temp 36.2 C (97.2 F) (Oral) Resp 16 DASI Risk Score No data to display Caprini DVT Assessment No data to display Modified Frailty Index No data to display CHADS2 Stroke Risk Current as of 17 minutes ago N/A 3 - 100%: High Risk 2 - 3%: Medium Risk 0 - 2%: Low Risk Last Change: N/A This score determines the patient's risk of having a stroke if the patient has atrial fibrillation. This score is not applicable to this patient. Components are not calculated. Revised Cardiac Risk Index No data to display Apfel Simplified Score No data to display Risk Analysis Index Results This Encounter No data found in the last 1 encounters. Assessment and Plan: Followed by neurosurgery, cervical spondylosis w/myelopathy C3-4, C4-5, C5-6, C6-7 anterior disc excision/allograft fusion & plate fixation with flat plate cervical x-ray w/Dr Zurita on 03/21/2023 [facility] Work Phone: 03-21-2023 History and physical note H&P reviewed. The patient was examined and there are no changes to the H&P. Source Note - Jane Caro, 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 - 03/14/2023 12:30 PM EST CPM/PAT Evaluation Name: Mary Goode (Mary Goode) /Age: 711/20/1950/72 y.o. In-Person Chief Complaint: spinal stenosis of cervical region 72 yr old female with c/o chronic neck pain. Reports ongoing years long progressive pain worsened by activity and position changes causing loss of sleep, numbness/tingling to both arms and hands. Reports difficulty with small tasks requiring dexterity such as buttons, clips or opening lids. Has tried medications, physical therapy, and traction with no lasting relief. Pain has caused limitations as cannot be as active as desired. Denies past issues with anesthesia. Reports current SECURITY AGENT shunt (2006), and hx of Right renal artery aneurysm repair w/coil (2012). Additionally reports is a Jehovah Witness. No past medical history on file. No past surgical history on file. Patient has no history on file for sexual activity. No family history on file. No Known Allergies Prior to Admission medications Medication Sig Start Date End Date Taking? Authorizing Provider amLODIPine (Norvasc) 10 mg tablet Take 1 tablet (10 mg) by mouth once daily. Yes Historical Provider, atorvastatin (Lipitor) 20 mg tablet Take by mouth. 02/10/23 Yes Historical Provider, cholecalciferol (Vitamin D-3) 25 MCG (1000 UT) capsule Take 1 capsule (25 mcg) by mouth once daily. Yes Historical Provider, donepezil (Aricept) 5 mg tablet Take 1 tablet (5 mg) by mouth once daily. 12/20/22 Yes Historical Provider, ferrous sulfate 325 (65 Fe) MG tablet Take 1 tablet (325 mg) by mouth once daily with a meal. Yes Historical Provider, gabapentin (Neurontin) 300 mg capsule Take 1-2 capsules (300-600 mg) by mouth once daily at bedtime. Yes Historical Provider, hydroCHLOROthiazide (HYDRODiuril) 25 mg tablet Take 1 tablet (25 mg) by mouth once daily. 06/28/06 Yes Historical Provider, labetalol (Normodyne) 200 mg tablet Take 1 tablet (200 mg) by mouth 2 times a day. Yes Historical Provider, lansoprazole (Prevacid) [address] capsule Take 1 capsule (30 mg) by mouth once daily. Yes Historical Provider, losartan (Cozaar) 50 mg tablet Take 1 tablet (50 mg) by mouth once daily. Yes Historical Provider, omeprazole (PriLOSEC) [address] capsule Take 1 capsule (40 mg) by mouth once daily. Yes Historical Provider, potassium chloride CR 10 mEq ER tablet Take 1 tablet (10 mEq) by mouth once daily. Yes Historical Provider, venlafaxine (Effexor) 75 mg tablet Take by mouth. Yes Historical Provider, ubidecarenone (CO Q-10 ORAL) Take by mouth. 03/14/23 Yes Historical Provider, aspirin (ASPIR-81 ORAL) Take 1 tablet by mouth once daily. 08/29/06 03/14/23 Historical Provider, colesevelam (Welchol) 625 mg tablet Take 3 tablets (1,875 mg) by mouth once daily at bedtime. 03/14/23 Historical Provider, diclofenac (Voltaren) 75 mg EC tablet Take 1 tablet (75 mg) by mouth 2 times a day. 03/14/23 Historical Provider, ibuprofen 800 mg tablet Take 1 tablet (800 mg) by mouth every 6 hours if needed (pain). 03/14/23 Historical Provider, Review of Systems Constitutional: no fever, no chills and not feeling poorly. Eyes: no eyesight problems. ENT: no hearing loss, no nosebleeds and no sore throat. Cardiovascular: no chest pain, no palpitations and no extremity edema. Respiratory: no shortness of breath w/rest, no wheezing, no cough, reports sob w/exertion. Gastrointestinal: no abdominal pain, no constipation, no heartburn, no diarrhea, no vomiting and no blood in stools. Genitourinary: no dysuria, no incontinence, normal micturition and no testicular pain. Musculoskeletal: no arthralgias and no gait abnormality. Integumentary: no skin lesions, no skin wound and no change in a mole. Neurological: no confusion, no dizziness, no fainting and no difficulty walking. Psychiatric: not suicidal, no anxiety and no depression. All other systems have been reviewed and are negative for complaint. Physical Exam Constitutional: General: No acute distress. Aox3, pleasant and cooperative, appropriate mood and eye contact HENT: Head: Normocephalic. Mouth/Throat: Mucous membranes moist & pink Eyes: Vision grossly intact, PERRLA, corrective lenses in use Neck: No carotid bruit, no JVD Cardiovascular: RRR, S1S2, no murmurs, rubs or gallops Pulmonary: Symmetric chest expansion, CTA, Room Air Abdominal: Soft non-tender, BSx4 Skin: Warm, dry & intact Extremities: No gross deformities; normal gait Neurological: No focal deficit, Aox3, BLANK x4 Psychiatric: Pleasant & cooperative, appropriate affect PAT AIRWAY: Airway: Mallampati:: II TM distance:: <3 FB Neck ROM:: Limited Upper and lower partials Visit Vitals BP 114/64 Pulse 78 Temp 36.2 C (97.2 F) (Oral) Resp 16 DASI Risk Score No data to display Caprini DVT Assessment No data to display Modified Frailty Index No data to display CHADS2 Stroke Risk Current as of 17 minutes ago N/A 3 - 100%: High Risk 2 - 3%: Medium Risk 0 - 2%: Low Risk Last Change: N/A This score determines the patient's risk of having a stroke if the patient has atrial fibrillation. This score is not applicable to this patient. Components are not calculated. Revised Cardiac Risk Index No data to display Apfel Simplified Score No data to display Risk Analysis Index Results This Encounter No data found in the last 1 encounters. Assessment and Plan: Followed by neurosurgery, cervical spondylosis w/myelopathy C3-4, C4-5, C5-6, C6-7 anterior disc excision/allograft fusion & plate fixation with flat plate cervical x-ray w/Dr Zurita on 03/21/2023 documented in this encounter [facility] Work Phone: 02-01-2023 Evaluation note Encounter Date Diagnosis Assessment Notes Jan, Hyponatremia (ICD-10 - E87.1) She had hyponatremia and appears to be euvolemic. Her hyponatremia is likely due to HCTZ. She has normal cortisol. Continue fluid restriction to 50 ounces a day. 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 I would recommend to monitor serum sodium closely perioperatively. Jan, CKD (chronic kidney disease) stage 2, GFR 60-89 ml/min (ICD-10 - N18.2) Hb is within the goal. Continue oral Iron. She has longstanding HTN likely has CKD as a result of it. Her b/l serum creatinine is 0.9-1.1 mg/dl. Her renal US was unremarkable. I have discussed with her the importance of good HTN control to slow down the progression of disease. She has no absolute contraindication for spinal surgery from renal standpoint. I have explained to her she will be at risk of NURA and possible need of dialysis due to the perioperative hemodynamic changes. She understood and verbalized information. Jan, Hypertensive chronic kidney disease with stage 1 through stage 4 chronic kidney disease, or unspecified chronic kidney disease (ICD-10 - I12.9) Blood pressure is controlled. Continue current medications. Jan, Vitamin D deficiency (ICD-10 - E55.9) Calcium and vitamin D are within the goal. Continue oral vitamin D. Jan, Renal artery aneurysm (ICD-10 - I72.2) She has h/o right renal artery aneurysm and underwent coil embolization. 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 Continue oral potassium supplement. Jan, Osteoporosis (ICD-10 - M81.0) She reported to have Osteoporosis . Continue Prolia Jan, Iron deficiency (ICD-10 - E61.1) Hemoglobin is within normal limit. She has adequate iron stores. Continue oral iron Jan, Urinary incontinence (ICD-10 - R32) She reported that that she gets urine incontinence. She reported she is also has Lumbar disc disease. Advised to have a follow-up with her spinal surgeon to discuss her urinary symptoms. Also she can follow-up with her mail deliverer due to the urinary incontinence. Soft Tissue Regeneration Other 08-01-2023 History of Present illness Narrative* The patient who is a 72-year-old female came in today with a friend to discuss cervical pain and back of head pain that she has been experiencing. 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 At 1 point she did have pain and tingling into both arms. Currently the pain is in her neck and back of head but for thelast 6 weeks she has also had left shoulder pain. * The patient feels like her balance has not deteriorated. This is based on the fact that she has normal pressure hydrocephalus and many years back she had a SECURITY AGENT shunt placed and she got pretty good symptomatic relief. It certainly seems to have helped with her gait and her memory but she says she still has some urinary incontinence issues. She is not having trouble tying shoelaces but buttons seem to be a problem for her. * She also has lumbar problems and that is something that her other doctors are working up. * She came today with an MRI of the cervical spine which shows that she has significant stenosis at C3-4, she has foraminal stenosis that is severe on the left side at C4-5, she has a central disc protrusion at C5-6 that is distorting the contours of the cord at that level. She is going to need a CAT scan to determine how much of these changes are calcified. I gave her a primer today on fusions andartificial disks. We talked about the fact that she is Jew and what that would mean regarding surgery. I also suggested that she start considering getting second opinions. I am going tosee her back after the CAT scan of her cervical spine is done and we will talk about which operation to the cervical spine we would be recommending. [id number] Work Phone: [phone] 587-604703-28-2023 Evaluation note* Encounter Date Diagnosis Assessment Notes Treatment Notes Treatment Clinical Notes Jul, SECURITY AGENT (ventriculoperito kym) shunt status (ICD-10 - Z98.2) We reviewed the pre and post MRI x-rays today and they appear to be quite stable. The patient is completely asymptomatic. 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 She had an MRI of the brain which was independently reviewed. I see no acute pathology, generous ventricles. The patient has a pre and post MRI with x-ray that shows the shunt setting very close to what it was previously. I did reprogram it back to 130. The patient overall is having no symptomatic changes. If she does she should return or call us or go to local emergency room. At this point I will see her on an as-needed basis. Her shunt pumps quite well Soft Tissue Regeneration Other 02-16-2023 NotePROCEDURE: XR KNEE RT 4V or > HISTORY: Osteoarthritis ; chronic right posterior knee pain COMPARISON: None. FINDINGS: BONES:Mild narrowing of the joint spaces without significant articular surface irregularity or subchondral sclerosis. Periarticular degenerative osteophytes, with large osteophyte along lateral margin of tibial plateau. SOFT TISSUES:No visible soft tissue swelling. EFFUSION:Moderate joint effusion. OTHER: Negative. IMPRESSION: 1. Moderate large joint effusion of uncertain etiology. 2. No acute bone abnormality. 3. Mild-moderate degenerative joint disease. Electronically authenticated by: ANA ROSA BELLO Date: 2022-06-24 11:33[facility]02-08-2023 Evaluation note* Encounter Date Diagnosis Assessment Notes Treatment Notes Treatment Clinical Notes Jun, Hyponatremia (ICD-10 - E87.1) She had hyponatremia and appears to be euvolemic. Her hyponatremia is likely due to HCTZ. She has normal cortisol. Continue fluid restriction to 50 ounces a day. Jun, Chronic kidney disease, stage 3 unspecified (ICD-10 - N18.30) She has longstanding HTN likely has CKD as a result of it. Her b/l serum creatinine is 1.0-1.2 mg/dl. Her renal US was unremarkable. I have discussed with her the importance of good HTN control to slow down the progression of disease. Jun, Hypertensive chronic kidney disease with stage 1 through stage 4 chronic kidney disease, or unspecified chronic kidney disease (ICD-10 - I12.9) Blood pressure is controlled. Continue current medications. I would recommend to change simvastatin to atorvastatin due to drug drug interaction with amlodipine. Patient will contact her PCP about it. Jun, Vitamin D deficiency (ICD-10 - E55.9) Calcium and vitamin D are within the goal. Continue oral vitamin D. 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 Continue oral potassium supplement. Jun, Anemia of renal disease (ICD-10 - D63.1) Hb is within the goal. Continue oral Iron. Jun, Osteoporosis (ICD-10 - M81.0) She reported to have Osteoporosis . Continue [place] CK1 Other 01-19-2023 NoteHNO ID: [id number] Author: Freda Pop 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 Author Type: Nurse Practitioner Type: Progress Notes Filed: 05/27/2022 8:56 AM Note Text: GENERAL SURGERY CLINIC FOLLOW UP NOTE Clinic Date: 05/28/2022 Mary Goode, 71 year old CHIEF COMPLAINT: Patient presents with: 6 Month Exam: S/p paraesophageal hernia repair HPI: Mary Goode presents for follow up from paraesophageal hernia repair surgery. Surgery Date and Procedure: 11/16/21 SURGERY/PROCEDURE: 1. Laparoscopic repair of paraesophageal hernia. 2. Laparoscopic posterior hiatoplasty. 3. Laparoscopic fundectomy. Current Diet: normal diet Present Activity level: Household activities- limited due to low back pain (currently followed for this) Current Medications: lansoprazole (PREVACID) 30 mg capsule Take 1 capsule by mouth once daily. potassium chloride (K-TAB) 10 mEq tablet Take 10 mEq by mouth once daily. colesevelam (WELCHOL) 625 mg tablet Take 1,875 mg by mouth daily at bedtime. labetalol (TRANDATE) 200 mg tablet Take 200 mg by mouth once daily. losartan (COZAAR) 50 mg tablet Take 50 mg by mouth once daily. amLODIPine (NORVASC) 10 mg tablet Take 10 mg by mouth once daily. desvenlafaxine ER (KHEDEZLA) 50 mg 24 hr tablet Take 50 mg by mouth once daily. gabapentin (NEURONTIN) 300 mg capsule Take 300 mg by mouth as needed. ferrous sulfate (IRON) 325 mg (65 mg iron) tablet Take 325 mg by mouth daily with breakfast. Cholecalciferol, Vitamin D3, (VITAMIN D) 25 mcg (1,000 unit) cap Take 1,000 Units by mouth once daily. Aspirin 81 mg ORAL Tab Take one(1) tablet daily. HYDROCHLOROTHIAZIDE 25 MG TAB Take one(1) tablet daily. REVIEW OF SYSTEMS: CONSTITUTIONAL: Patient denies fevers, chills CARDIOVASCULAR: Patient denies chest pains, palpitations Abdominal Pain: NO Shortness of Breath: NO Cough / Wheezing: YES - has chronic cough Nausea/Vomiting: NO Diarrhea: NO Taking PPI: Yes, Provider Ekaterina indefinitely PHYSICAL EXAM: LMP 05/31/2006 Virtual visit GENERAL: No apparent distress. Pt is alert and oriented x3. LUNGS: non labored breathing Assessment and Plan: Mary Goode is a 71 year old pleasant woman seen today for 6 month post op follow up after paraesophageal hernia repair November 2021. C/o tightness in the sternal area, has been persistent x weeks. Denies reflux, dysphagia. - Upper GI, pt forgot to obtain prior to today's visit. She will schedule it today - continue PPI indefinitely Follow up: 6 months or sooner if needed based on UGI result Freda Pop APRN.CNP General Surgery Digestive Disease [place] Medical Decision Making: Problems: Moderate: 1+ chronic illnesses with change Risk: Moderate: Drug management Medical Decision Making [facility]: [facility]* Patient Instructions* Freda Pop APRN.CNP - 05/27/2022 8:56 AM EST Continue Prevacid (lansoprazole) 30 mg daily or similar indefinitely We'll check your Upper GI, let us know once you get it so that we can be sure to get the results [facility] History of Present illness Narrative* Freda Pop APRN.CNP - 05/27/2022 8:30 AM EST Images from the original note were not included. GENERAL SURGERY CLINIC FOLLOW UP NOTE Clinic Date: 05/28/2022 Mary Goode, 71 year old CHIEF COMPLAINT: Patient presents with: 6 Month Exam: S/p paraesophageal hernia repair HPI: Mary Goode presents for follow up from paraesophageal hernia repair surgery. Surgery Date and Procedure: 11/16/21 SURGERY/PROCEDURE: 1. Laparoscopic repair of paraesophageal hernia. 2. Laparoscopic posterior hiatoplasty. 3. Laparoscopic fundectomy. Current Diet: normal diet Present Activity level: Household activities- limited due to low back pain (currently followed for this) Current Medications: lansoprazole (PREVACID) 30 mg capsule Take 1 capsule by mouth once daily. potassium chloride (K-TAB) 10 mEq tablet Take 10 mEq by mouth once daily. colesevelam (WELCHOL) 625 mg tablet Take 1,875 mg by mouth daily at bedtime. labetalol (TRANDATE) 200 mg tablet Take 200 mg by mouth once daily. losartan (COZAAR) 50 mg tablet Take 50 mg by mouth once daily. amLODIPine (NORVASC) 10 mg tablet Take 10 mg by mouth once daily. desvenlafaxine ER (KHEDEZLA) 50 mg 24 hr tablet Take 50 mg by mouth once daily. gabapentin (NEURONTIN) 300 mg capsule Take 300 mg by mouth as needed. ferrous sulfate (IRON) 325 mg (65 mg iron) tablet Take 325 mg by mouth daily with breakfast. Cholecalciferol, Vitamin D3, (VITAMIN D) 25 mcg (1,000 unit) cap Take 1,000 Units by mouth once daily. Aspirin 81 mg ORAL Tab Take one(1) tablet daily. HYDROCHLOROTHIAZIDE 25 MG TAB Take one(1) tablet daily. REVIEW OF SYSTEMS: CONSTITUTIONAL: Patient denies fevers, chills CARDIOVASCULAR: Patient denies chest pains, palpitations Abdominal Pain: NO Shortness of Breath: NO Cough / Wheezing: YES - has chronic cough Nausea/Vomiting: NO Diarrhea: NO Taking PPI: Yes, Provider Ekaterina indefinitely PHYSICAL EXAM: LMP 05/31/2006 Virtual visit GENERAL: No apparent distress. Pt is alert and oriented x3. LUNGS: non labored breathing Assessment and Plan: Mary Goode is a 71 year old pleasant woman seen today for 6 month post op follow up after paraesophageal hernia repair November 2021. C/o tightness in the sternal area, has been persistent x weeks. Denies reflux, dysphagia. - Upper GI, pt forgot to obtain prior to today's visit. She will schedule it today - continue PPI indefinitely Follow up: 6 months or sooner if needed based on UGI result Freda Pop APRN.EMANUEL General Surgery Digestive Disease [place] Medical Decision Making: Problems: Moderate: 1+ chronic illnesses with change Risk: Moderate: Drug management Medical Decision Making Level: 4 - Moderate [facility] Procedure [facility]11[facility]15[facility]20[facility] Evaluation note* Encounter Date Diagnosis Assessment Notes Treatment Notes Treatment Clinical Notes Mar, Hydrocephalus, unspecified type (ICD-10 - G91.9) Patient has an x-ray of her shunt valve before and after surgery which shows no change in the setting from then and now after the current MRI. For that reason I would not recommend further adjustment as the patient is doing well. She has been given reassurance and will follow up with me should a new problem arise. I personally reviewed these x-rays and confirmed the measurement Soft Tissue Regeneration Other 10-06-2022 Evaluation note* Encounter Date Diagnosis Assessment Notes Treatment Notes Treatment Clinical Notes Feb, Hydrocephalus, unspecified type (ICD-10 - G91.9) Her shunt was interrogated showing a setting #4 which I believe is set approximately 120mm. Feb, DDD (degenerative disc disease), lumbar (ICD-10 - M51.36) This patient had an MRI of her lumbar spine which I reviewed showing a lot of degenerative change and some canal narrowing. She has a lot of low back pain with only a little bit of leg discomfort. She had initially planned to see pain management but something fell through. I think she needs to see pain management to give a good trial of conservative care I believe pain management will help her. A new referral will be sent. Soft Tissue Regeneration Other 08-17-2022 NoteHNO ID: [id number] Author: Freda Pop 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 Author Type: Nurse Practitioner Type: Progress Notes Filed: 12/23/2021 10:45 AM Note Text: GENERAL SURGERY CLINIC FOLLOW UP NOTE Clinic Date: 12/23/2021 Mary Goode, 71 year old [address] [facility] [id number] CHIEF COMPLAINT: Patient presents with: Post Op Follow Up: S/p Paraesophageal repair 11/16/21 HPI: Mary Goode presents for follow up from paraesophageal hernia repair surgery performed on 11/16/[address] Mendez Fever/Chills, Abdominal Pain: Denies Increased Heart Rate: Denies Shortness of Breath: Denies Cough / Wheezing: Denies Calf/Thigh pain or swelling: Denies Decreased Urine Output: Denies Nausea/Vomiting: Denies Diarrhea: Denies Constipation: intermittently Surgery Date and Procedure: 11/16/21 SURGERY/PROCEDURE: 1. Laparoscopic repair of paraesophageal hernia. 2. Laparoscopic posterior hiatoplasty. 3. Laparoscopic fundectomy. PREOPERATIVE DIAGNOSIS: Paraesophageal hernia. POSTOPERATIVE DIAGNOSIS: 1. Paraesophageal hernia. 2. Short esophagus Current Diet: soft diet Present Activity level: Household activities and Activities outside of house walking her dog twice a day Current Medications: lansoprazole (PREVACID) 30 mg capsule Take 1 capsule by mouth once daily. potassium chloride (K-TAB) 10 mEq tablet Take 10 mEq by mouth once daily. colesevelam (WELCHOL) 625 mg tablet Take 1,875 mg by mouth daily at bedtime. labetalol (TRANDATE) 200 mg tablet Take 200 mg by mouth once daily. sucralfate (CARAFATE) 1 gram tablet Take 1 g by mouth twice daily. losartan (COZAAR) 50 mg tablet Take 50 mg by mouth once daily. amLODIPine (NORVASC) 10 mg tablet Take 10 mg by mouth once daily. desvenlafaxine ER (KHEDEZLA) 50 mg 24 hr tablet Take 50 mg by mouth once daily. gabapentin (NEURONTIN) 300 mg capsule Take 300 mg by mouth as needed. ferrous sulfate (IRON) 325 mg (65 mg iron) tablet Take 325 mg by mouth daily with breakfast. Cholecalciferol, Vitamin D3, (VITAMIN D) 25 mcg (1,000 unit) cap Take 1,000 Units by mouth once daily. iv contrast (will be provided with radiology test) CT ABD/PEL -Inject, intravenously, once for 1 dose.No IV access, insert saline lock prior to the beginning of sedation, infusion, injection of imaging exam. Discontinue saline lock post exam. If Pt. has a central line or IVAD, may access for administration according to line specific nursing protocol. Once exam is complete flush line and de-access according to line specific nursing protocol in the CT contrast administration guidelines link. Aspirin 81 mg ORAL Tab Take one(1) tablet daily. HYDROCHLOROTHIAZIDE 25 MG TAB Take one(1) tablet daily. ZYRTEC 10 MG CHEWABLE TAB Take one(1) tablet daily. REVIEW OF SYSTEMS: CONSTITUTIONAL: Patient denies fevers, chills CARDIOVASCULAR: Patient denies chest pains, palpitations RESPIRATORY: No dyspnea on exertion, no wheezing or cough. GI: see HPI DERMATOLOGIC: Patient denies any rashes or skin changes. Incision(s) : healed PHYSICAL EXAM: BP 147/55 Pulse 58 Temp 97.2 Ht 5' 3 (1.60m) Wt 163 lb (73.9kg) SpO2 98% LMP 05/31/2006 BMI 28.88 kg/(m2). GENERAL: No apparent distress. Pt is alert and oriented x3. LUNGS: no wheezing HEART: No leg edema ABDOMEN: Soft, nontender, and nondistended. Positive bowel sounds. EXTREMITIES: Without any cyanosis, clubbing, rash, lesions or edema. INCISIONS: Clean, dry, intact, well approximated. No s/s of infection. Impression/Plan: - s/p paraesophageal hernia repair doing well overall - Dietary recommendations: Ok to continue to advance diet, doing well with soft foods. - Continue PPI indefinitely Follow up: May with upper GI study Freda Pop APRN.EMANUEL General Surgery Digestive Disease [place] [facility] 22[facility] NoteHNO ID: [id number] Author: Freda Pop APRN.EMANUEL Service: ? Author Type: Nurse Practitioner Type: Progress Notes Filed: 12/03/2021 12:10 PM Note Text: GENERAL SURGERY CLINIC FOLLOW UP NOTE - virtual visit Virtual Visit (Audio/Visual) I have discussed the nature of this visit with the patient which will occur via [facility] (Phone, Virtual Visit) and she agrees to proceed with this interaction . Clinic Date: 12/03/2021 Mary Goode, 71 year old [address] [facility] [id number] CHIEF COMPLAINT: Patient presents with: Post Op Follow Up: paraesophageal hernia repair HPI: Mary Goode presents for follow up from paraesophageal hernia repair surgery. Fever/Chills, Abdominal Pain: Denies Increased Heart Rate: Denies Shortness of Breath: Denies Cough / Wheezing: Denies Calf/Thigh pain or swelling: Denies Decreased Urine Output: Denies Nausea/Vomiting: Denies Diarrhea: Denies PPI: NO - will restart Surgery Date and Procedure: 11/16/21 SURGERY/PROCEDURE: 1. Laparoscopic repair of paraesophageal hernia. 2. Laparoscopic posterior hiatoplasty. 3. Laparoscopic fundectomy. PREOPERATIVE DIAGNOSIS: Paraesophageal hernia. ? POSTOPERATIVE DIAGNOSIS: 1. Paraesophageal hernia. 2. Short esophagus Pathology: FINAL DIAGNOSIS Stomach, excision: ? Portion of stomach with fundic gland polyps. ? No morphologic evidence of Helicobacter pylori microorganisms. Current Diet: Full liquid Present Activity level: Household activities Current Medications: potassium chloride (K-TAB) 10 mEq tablet Take 10 mEq by mouth once daily. ibuprofen (MOTRIN) 800 mg tablet Take 800 mg by mouth. colesevelam (WELCHOL) 625 mg tablet Take 1,875 mg by mouth daily at bedtime. labetalol (TRANDATE) 200 mg tablet Take 200 mg by mouth once daily. lansoprazole (PREVACID) 30 mg capsule Take 30 mg by mouth once daily. sucralfate (CARAFATE) 1 gram tablet Take 1 g by mouth twice daily. losartan (COZAAR) 50 mg tablet Take 50 mg by mouth once daily. amLODIPine (NORVASC) 10 mg tablet Take 10 mg by mouth once daily. desvenlafaxine ER (KHEDEZLA) 50 mg 24 hr tablet Take 50 mg by mouth once daily. gabapentin (NEURONTIN) 300 mg capsule Take 300 mg by mouth as needed. ferrous sulfate (IRON) 325 mg (65 mg iron) tablet Take 325 mg by mouth daily with breakfast. Cholecalciferol, Vitamin D3, (VITAMIN D) 25 mcg (1,000 unit) cap Take 1,000 Units by mouth once daily. iv contrast (will be provided with radiology test) CT ABD/PEL -Inject, intravenously, once for 1 dose.No IV access, insert saline lock prior to the beginning of sedation, infusion, injection of imaging exam. Discontinue saline lock post exam. If Pt. has a central line or IVAD, may access for administration according to line specific nursing protocol. Once exam is complete flush line and de-access according to line specific nursing protocol in the CT contrast administration guidelines link. CITALOPRAM 20 MG TAB Take one(1) tablet daily. Aspirin 81 mg ORAL Tab Take one(1) tablet daily. HYDROCHLOROTHIAZIDE 25 MG TAB Take one(1) tablet daily. ZYRTEC 10 MG CHEWABLE TAB Take one(1) tablet daily. REVIEW OF SYSTEMS: CONSTITUTIONAL: Patient denies fevers, chills CARDIOVASCULAR: Patient denies chest pains, palpitations RESPIRATORY: No dyspnea on exertion, no wheezing or cough. GI: see HPI DERMATOLOGIC: Patient denies any rashes or skin changes. Incision(s) : intact, no signs of infection PHYSICAL EXAM: [facility] 05/31/2006 - virtual visit GENERAL: No apparent distress. Pt is alert and oriented x3. Respiratory: non labored HEART: No leg edema ABDOMEN: no distention INCISIONS: Clean, dry, intact, well approximated. No s/s of infection. Impression/Plan: S/p Paraesophageal hernia repair Dietary recommendations: Advance diet to soft/pureed foods Restart PPI, new Rx sent to patient's preferred pharmacy Follow up: in 2-3 weeks for 1 month post op visit Freda Pop APRN.EMANUEL General Surgery Digestive Disease [place] December 03[facility]07-28-[facility]22 History of Present illness Narrative* Freda Pop APRN.EMANUEL - 12/03/2021 11:00 AM EDT Images from the original note were not included. GENERAL SURGERY CLINIC FOLLOW UP NOTE - virtual visit Virtual Visit (Audio/Visual) I have discussed the nature of this visit with the patient which will occur via [facility] (Phone, Virtual Visit) and she agrees to proceed with this interaction . Clinic Date: 12/03/2021 Mary Goode, 71 year old [address] [facility] [id number] CHIEF COMPLAINT: Patient presents with: Post Op Follow Up: paraesophageal hernia repair HPI: Mary Goode presents for follow up from paraesophageal hernia repair surgery. Fever/Chills, Abdominal Pain: Denies Increased Heart Rate: Denies Shortness of Breath: Denies Cough / Wheezing: Denies Calf/Thigh pain or swelling: Denies Decreased Urine Output: Denies Nausea/Vomiting: Denies Diarrhea: Denies PPI: NO - will restart Surgery Date and Procedure: 11/16/21 SURGERY/PROCEDURE: 1. Laparoscopic repair of paraesophageal hernia. 2. Laparoscopic posterior hiatoplasty. 3. Laparoscopic fundectomy. PREOPERATIVE DIAGNOSIS: Paraesophageal hernia. POSTOPERATIVE DIAGNOSIS: 1. Paraesophageal hernia. 2. Short esophagus Pathology: FINAL DIAGNOSIS Stomach, excision: Portion of stomach with fundic gland polyps. No morphologic evidence of Helicobacter pylori microorganisms. Current Diet: Full liquid Present Activity level: Household activities Current Medications: potassium chloride (K-TAB) 10 mEq tablet Take 10 mEq by mouth once daily. ibuprofen (MOTRIN) 800 mg tablet Take 800 mg by mouth. colesevelam (WELCHOL) 625 mg tablet Take 1,875 mg by mouth daily at bedtime. labetalol (TRANDATE) 200 mg tablet Take 200 mg by mouth once daily. lansoprazole (PREVACID) 30 mg capsule Take 30 mg by mouth once daily. sucralfate (CARAFATE) 1 gram tablet Take 1 g by mouth twice daily. losartan (COZAAR) 50 mg tablet Take 50 mg by mouth once daily. amLODIPine (NORVASC) 10 mg tablet Take 10 mg by mouth once daily. desvenlafaxine ER (KHEDEZLA) 50 mg 24 hr tablet Take 50 mg by mouth once daily. gabapentin (NEURONTIN) 300 mg capsule Take 300 mg by mouth as needed. ferrous sulfate (IRON) 325 mg (65 mg iron) tablet Take 325 mg by mouth daily with breakfast. Cholecalciferol, Vitamin D3, (VITAMIN D) 25 mcg (1,000 unit) cap Take 1,000 Units by mouth once daily. iv contrast (will be provided with radiology test) CT ABD/PEL -Inject, intravenously, once for 1 dose.No IV access, insert saline lock prior to the beginning of sedation, infusion, injection of imaging exam. Discontinue saline lock post exam. If Pt. has a central line or IVAD, may access for administration according to line specific nursing protocol. Once exam is complete flush line and de-accessaccording to line specific nursing protocol in the CT contrast administration guidelines link. CITALOPRAM 20 MG TAB Take one(1) tablet daily. Aspirin 81 mg ORAL Tab Take one(1) tablet daily. HYDROCHLOROTHIAZIDE 25 MG TAB Take one(1) tablet daily. ZYRTEC 10 MG CHEWABLE TAB Take one(1) tablet daily. REVIEW OF SYSTEMS: CONSTITUTIONAL: Patient denies fevers, chills CARDIOVASCULAR: Patient denies chest pains, palpitations RESPIRATORY: No dyspnea on exertion, no wheezing or cough. GI: see HPI DERMATOLOGIC: Patient denies any rashes or skin changes. Incision(s) : intact, no signs of infection PHYSICAL EXAM: [facility] 05/31/2006 - virtual visit GENERAL: No apparent distress. Pt is alert and oriented x3. Respiratory: non labored HEART: No leg edema ABDOMEN: no distention INCISIONS: Clean, dry, intact, well approximated. No s/s of infection. Impression/Plan: S/p Paraesophageal hernia repair Dietary recommendations: Advance diet to soft/pureed foods Restart PPI, new Rx sent to patient's preferred pharmacy Follow up: in 2-3 weeks for 1 month post op visit Freda Pop APRN.CNP General Surgery Digestive Disease [place] December 03, 2021 [facility] Instructions* Patient Instructions* Freda Pop APRN.CNP - 12/03/2021 10:55 AM EDT Your post op visit schedule 1 month, 6 months, and 1 year Upper GI study prior to 6 months and 1 year post op appointments. Full Liquid diet for 2 weeks post op Advance to pureed/soft post op week 3, as tolerated Most patients can progress to a regular diet after 6-8 weeks, but the exact timeframe will depend on individual tolerance No heavy lifting, pushing or pulling for 4 weeks, then activity as tolerated [facility] Evaluation note* Encounter Date Diagnosis Assessment Notes Treatment Notes Treatment Clinical Notes Nov, Hyponatremia (ICD-10 - E87.1) She had hyponatremia and appears to be euvolemic. Her hyponatremia is likely due to HCTZ. She has normal cortisol. Continue fluid restriction to 50 ounces a day. Nov, Chronic kidney disease, stage 3 unspecified (ICD-10 - N18.30) She has longstanding HTN likely has CKD as a result of it. Her b/l serum creatinine is 1.0-1.2 mg/dl. Her renal US was unremarkable. I have discussed with her the importance of good HTN control to slow down the progression of disease. Nov, Hypertensive chronic kidney disease with stage 1 through stage 4 chronic kidney disease, or unspecified chronic kidney disease (ICD-10 - I12.9) Blood pressure is controlled. Continue current medications Nov, Vitamin D deficiency (ICD-10 - E55.9) Calcium and vitamin D are within the goal. Continue oral vitamin D. 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 Nov, Hypokalemia (ICD-10 - E87.6) She has hypokalemia due to the diuretic induced renal potassium wasting. Continue oral potassium supplement. Nov, Anemia of renal disease (ICD-10 - D63.1) Hb is within the goal. Continue oral Iron. Nov, Osteoporosis (ICD-10 - M81.0) She reported to have Osteoporosis . Continue [place] [facility] Other 07-12-2022 NoteHNO ID: [id number] Author: Angeli Rivas RN Service: Care Management Author Type: Registered Nurse Type: Care Mgt Progress Note Filed: 11/17/2021 8:34 PM Note Text: CARE MANAGEMENT UTILIZATION REVIEW COMMITTEE PROVIDER LIABLE (Admission Status Discrepancy Review) Admission Date: 11/16/2021 Patient's Initial Order is: Inpatient Date Received: November 17, 2021 Date Reviewed: November 17, 2021 Under the authority of the Utilization Management Plan, the Physician Advisor, Dr. Rashad Raman, has reviewed the medical record of the above patient. The following recommendation has been made by the Physician Advisor, based upon the current available medical information as of the date of this determination. The patient is appropriate for: Observation Rationale for this decision: Lack of medical necessity for inpatient admission and less than 2 midnight stay SIGNATURE: Angeli Rivas RN PATIENT NAME: Mary Goode DATE: November 17, 2021 TIME: 8:34 PM PAGER/CONTACT #: [phone] Disclaimer: The information in this determination is to be used for utilization management purposes only. The information and recommendation is made pursuant to Medicare Hospital Conditions of Participation (442 CFR Part 482) and is neither a judgment nor an assessment with regard to the appropriateness or quality of the clinical care. Nothing in this document may be used to limit clinical services provided to the above named patient. This form should be used as one part of the process utilized to ensure compliance with [facility] policy regarding Inpatient Admission and Observation Services. The definitions of Inpatient and Observation used in making the determination above are those provided in Medicare Benefit Policy Manual Chapter 1, Section 1 and 10, Chapter 6, Section 20, and the Medicare Claims Processing Manual Chapter 1, Section 50.3 and Chapter 4, Section 290. This recommendation should be considered as only one factor in determining the patient's final level of service along with other pertinent documentation such as the treating physician's order as documented evidence of concurrence. [facility]07-12-2022 NoteHNO ID: [id number] Author: Tony Cox MD Service: General Surgery Author Type: Resident Type: Plan of Care Filed: 11/17/2021 1:32 AM Note Text: POST OPERATIVE CHECK Patient Name: Mary Goode SERVICE DATE: 11/17/2021 PRIMARY SERVICE: General Surgery SUBJECTIVE: The patient is feeling well in the immediate postoperative period and has no acute complaints. Pain controlled. Ambulating. Tolerating ice chips. Passing flatus. No BM. Urinating w/o dysuria. Afebrile, VSS. Denies N/V, SOB, and CP. OBJECTIVE PHYSICAL EXAM: BP 146/93 Pulse 97 Temp 36.9 ?C (98.4 ?F) Resp 17 Ht 160 cm (5' 3 ) Wt 78.5 kg (173 lb) LMP 05/31/2006 SpO2 93% BMI 30.65 kg/m? General: no acute distress, resting comfortably in bed, alert and oriented Cardiac: regular rate and rhythm Pulmonary: non-labored breathing, lungs CTAB Abdomen: soft, non-distended, appropriately tender Incision(s): clean, dry and intact Extremities: warm and well perfused, no lower extremity edema Rodrigues: external catheter in place ASSESSMENT AND PLAN: 70 year old female POD 0 s/p Laparoscopic paraesophageal hernia repair, Eduardo gastroplasty, EGD for paraesophageal hernia. Pain well-controlled, hemodynamically stable, exam appropriate - Continue routine post-operative care - If tachycardic, will order stat CBC Tony Cox MD General Surgery Resident, PGY-1 For questions during the weekdays, please contact the [employer] service pager, [phone] For questions during the nights and weekends, please contact the [employer] pager, [phone] [phone] NoteHNO ID: [id number] Author: Terry Villavicencio APRN.CRNA Service: Anesthesiology Author Type: Nurse Expert Medical Writer Type: Anesthesia Procedure Notes Filed: 11/16/2021 12:19 PM Note Text: ANESTHESIOLOGY PROCEDURE NOTE PIV General Information Procedure Start Time/Medication Administration: 11/16/2021 11:50 AM Patient Location: OR Staffing Anesthesiologist: Julian Dotson MD Performed by: anesthesiologist Preparation Sterility Preparation: hand hygiene performed prior to procedure, surgical cap used, mask used Site Prep: chlorhexidine Procedure Details Indication: need for IV access Needle Size/Type: 18 gauge angiocath Orientation: Right Location: Hand Imaging Guidance Used: No SIGNATURE: Terry Villavicencio APRN.CRNA PATIENT NAME: Mary Goode DATE: November 16, 2021 TIME: 12:19 PM CSN: [id number] NoteHNO ID: [id number] Author: Terry Villavicencio APRN.CRNA Service: Anesthesiology Author Type: Nurse Expert Medical Writer Type: Anesthesia Procedure Notes Filed: 11/16/2021 12:19 PM Note Text: ANESTHESIOLOGY PROCEDURE NOTE Airway General Information Procedure Start Time/Medication Administration: 11/16/2021 11:50 AM Patient location during procedure: OR Patient identity confirmed: arm band, care team driver and patient Staffing Anesthesiologist: Julian Dotson MD DIRECTOR ORACLE [employer]AIL: Terry Villavicencio APRN.DIRECTOR [employer]ACLE [employer]AIL Performed by: SHEA Indications and Patient Condition Preoxygenated: yes Patient position: sniffing Difficult Mask: No Indications for airway management: anesthesia anesthesia circuit Method: modified rapid sequence Cricoid Pressure: Yes Final Airway Details Final airway type: endotracheal airway Final Endotracheal Airway: ETT Cuffed: yes Successful intubation technique: direct laryngoscopy Endotracheal tube insertion site: oral Blade: Evelyne Blade size: #4 ETT size (mm): 7.5 Measured from: lips Measurement (cm): 21 Placement verified by: chest auscultation and capnometry Cormack-Lehane Classification: grade I - full view of glottis Number of attempts at approach: 1 Airway not difficult Comments Teeth and lips intact post intubation. SIGNATURE: Terry Villavicencio APRN.DIRECTOR [employer] PATIENT NAME: Mary Goode DATE: November 16, 2021 TIME: 12:18 PM CSN: [id number] NoteHNO ID: [id number] Author: Riky Moura RN Service: ? Author Type: ? Type: Progress Notes Filed: 11/12/2021 4:11 PM Note Text: AMBULATORY PATIENT EDUCATION NOTE PRE-OP TEACHING PROCEDURE: laparoscopic paraesophageal hernia repair READINESS TO LEARN COGNITIVE ABILITY: Alert and oriented MOTIVATION TO LEARN: Eager FAMILY SUPPORT: High - Very involved in pt care INSTRUCTION PROVIDED TO: Patient and family member PATIENT LEARNS BEST BY: Multiple Methods FACTORS AFFECTING LEARNING: None PHYSICAL LIMITATIONS AFFECTING LEARNING: None LEARNING RESPONSE DIAGNOSIS: paraesophageal hernia METHOD OF INSTRUCTION: Individual instruction Written instruction - handouts Verbal instruction PATIENT / FAMILY RESPONSE: Verbalizes understanding of: PAIN MANAGEMENT-Effective strategies to manage pain in addition to pain medication PHYSICAL RESTRICTIONS-Physical restrictions and recommendations after discharge from the hospital POST-OPERATIVE INSTRUCTIONS-Correct actions to take to reduce postoperative complications PRE-OPERATIVE INSTRUCTIONS-Correct action to take to follow pre-operative instructions SYMPTOM MANAGEMENT-Correct actions to take to manage symptoms associated with his/her disease/illness WORSENING CONDITION-Signs and symptoms of a worsening condition that warrant a call to the physician WOUND CARE-Correct procedure to perform wound care DIET- Post op diet OTHER PRE-OP INSTRUCTIONS: Covid 19 Testing FOLLOW-UP PLAN: Complete - No need for follow-up Patient instructed to call with any further issues Contact information given. SUPPLEMENTAL MATERIAL: - Pre Op Instructions Handout - PACC Brochure - PE[facility] Overview Handout - Post Op Instructions Handout REFERRAL (RECOMMENDATION): None Electronically Signed By: Riky Moura RN In Department: GENERAL SURGERY [facility]07-07-2022 History of Present illness Narrative* Riky Moura RN - 11/12/2021 4:10 PM EDT AMBULATORY PATIENT EDUCATION NOTE PRE-OP TEACHING PROCEDURE: laparoscopic paraesophageal hernia repair READINESS TO LEARN COGNITIVE ABILITY: Alert and oriented MOTIVATION TO LEARN: Eager FAMILY SUPPORT: High - Very involved in pt care INSTRUCTION PROVIDED TO: Patient and family member PATIENT LEARNS BEST BY: Multiple Methods FACTORS AFFECTING LEARNING: None PHYSICAL LIMITATIONS AFFECTING LEARNING: None LEARNING RESPONSE DIAGNOSIS: paraesophageal hernia METHOD OF INSTRUCTION: Individual instruction Written instruction - handouts Verbal instruction PATIENT / FAMILY RESPONSE: Verbalizes understanding of: PAIN MANAGEMENT-Effective strategies to manage pain in addition to pain medication PHYSICAL RESTRICTIONS-Physical restrictions and recommendations after discharge from the hospital POST-OPERATIVE INSTRUCTIONS-Correct actions to take to reduce postoperative complications PRE-OPERATIVE INSTRUCTIONS-Correct action to take to follow pre-operative instructions SYMPTOM MANAGEMENT-Correct actions to take to manage symptoms associated with his/her disease/illness WORSENING CONDITION-Signs and symptoms of a worsening condition that warrant a call to the physician WOUND CARE-Correct procedure to perform wound care DIET- Post op diet OTHER PRE-OP INSTRUCTIONS: Covid 19 Testing FOLLOW-UP PLAN: Complete - No need for follow-up Patient instructed to call with any further issues Contact information given. SUPPLEMENTAL MATERIAL: - Pre Op Instructions Handout - PACC Brochure - [facility] Overview Handout - Post Op Instructions Handout REFERRAL (RECOMMENDATION): None Electronically Signed By: Riky Moura RN In Department: GENERAL SURGERY [facility] NoteEducation ([facility] SHANAMARY BUCIO ([id number]) 1950 F Date Time Provider Department 11/12/21 RIKY MOURA (RN) [facility] Reason for Visit: Education Of Patient/family [904] Cmt: LPEH Repair Primary Visit Diagnosis:Encounter for education [Z71.9] During your visit today, we recorded the following information about you: Allergies As of Date: 11/12/2021 (No Known Allergies) Date Reviewed: 11/12/2021 Reviewed by: Joan Jung Ma - Fully Assessed Prescriptions as of 11/12/2021 - potassium chloride (K-TAB) 10 mEq tablet Take 10 mEq by mouth once daily. - ibuprofen (MOTRIN) 800 mg tablet Take 800 mg by mouth. - colesevelam (WELCHOL) 625 mg tablet Take 1,875 mg by mouth daily at bedtime. - labetalol (TRANDATE) 200 mg tablet Take 200 mg by mouth once daily. - lansoprazole (PREVACID) 30 mg capsule Take 30 mg by mouth once daily. - sucralfate (CARAFATE) 1 gram tablet Take 1 g by mouth twice daily. - losartan (COZAAR) 50 mg tablet Take 50 mg by mouth once daily. - amLODIPine (NORVASC) 10 mg tablet Take 10 mg by mouth once daily. - desvenlafaxine ER (KHEDEZLA) 50 mg 24 hr tablet Take 50 mg by mouth once daily. - gabapentin (NEURONTIN) 300 mg capsule Take 300 mg by mouth as needed. - ferrous sulfate (IRON) 325 mg (65 mg iron) tablet Take 325 mg by mouth daily with breakfast. - Cholecalciferol, Vitamin D3, (VITAMIN D) 25 mcg (1,000 unit) cap Take 1,000 Units by mouth once daily. - iv contrast (will be provided with radiology test) CT ABD/PEL -Inject, intravenously, once for 1 dose.No IV access, insert saline lock prior to the beginning of sedation, infusion, injection of imaging exam. Discontinue saline lock post exam. If Pt. has a central line or IVAD, may access for administration according to line specific nursing protocol. Once exam is complete flush line and de-access according to line specific nursing protocol in the CT contrast administration guidelines link. - CITALOPRAM 20 MG TAB Take one(1) tablet daily. - Aspirin 81 mg ORAL Tab Take one(1) tablet daily. - HYDROCHLOROTHIAZIDE 25 MG TAB Take one(1) tablet daily. - ZYRTEC 10 MG CHEWABLE TAB Take one(1) tablet daily. Encounter Status:Closed by RIKY MOURA RN on [facility]/12/21[facility]-12-[facility]21 NoteHNO ID: [id number] Author: Atif Mendez MD Service: ? Author Type: Physician Type: Progress Notes Filed: 11/12/2021 1:39 PM Note Text: SURGERY PREOPERATIVE VISIT NOTE Name: Mary Goode Medical Record: [id number] Encounter No.: [id number] Mary Goode is a 70 year old female seen in surgery clinic today for their final preoperative assessment. INTERVAL NOTE: Patient needed to discuss regarding surgery. She is currently scheduled for a paraesophageal hernia repair. 10/21/2021 CT A/P 10/16/2021 esophageal manometry View External Imaging - Miscellaneous Imaging [ID [id number]] 10/07/2021 UGI Scan on 10/27/2021 ?8:25 AM by External Provider: GI BMI 31 PLANNED PROCEDURE: Paraesophageal hernia repair, possible Monico fundoplication. Patient is a Jew. We have discussed regarding not doing a fundoplication if risk of recurrence is assessed to be on the higher side intraoperatively. PAST MEDICAL HISTORY: PAST MEDICAL HISTORY Diagnosis Date - Congenital hydrocephalus (HCC) s/p SECURITY AGENT shunt - Essential hypertension - ADITI (obstructive sleep apnea) - Patient is Jew PAST SURGICAL HISTORY: PAST SURGICAL HISTORY Procedure Laterality Date - APPENDECTOMY - COLONOSCOPY - EGD - HYSTERECTOMY HX 2008 - PAST SURGICAL HISTORY OF 2012 coil embolization for right renal aneurysm( [place]) - PAST SURGICAL HISTORY OF 2006 SECURITY AGENT shunt - PAST SURGICAL HISTORY OF partial right oophrectomy - PAST SURGICAL HISTORY OF Right Great toe - PAST SURGICAL HISTORY OF sinus surgery - TONSILLECTOMY HX SOCIAL HISTORY: Social History Tobacco Use - Smoking status: Never Smoker - Smokeless tobacco: Never Used Substance Use Topics - Alcohol use: Yes Comment: 1 drink monthly - Drug use: Never ALLERGIES: ALLERGIES No Known Allergies MEDICATIONS: Prior to Admission Medications: potassium chloride (K-TAB) 10 mEq tablet Take 10 mEq by mouth once daily. ibuprofen (MOTRIN) 800 mg tablet Take 800 mg by mouth. colesevelam (WELCHOL) 625 mg tablet Take 1,875 mg by mouth daily at bedtime. labetalol (TRANDATE) 200 mg tablet Take 200 mg by mouth once daily. lansoprazole (PREVACID) 30 mg capsule Take 30 mg by mouth once daily. sucralfate (CARAFATE) 1 gram tablet Take 1 g by mouth twice daily. losartan (COZAAR) 50 mg tablet Take 50 mg by mouth once daily. amLODIPine (NORVASC) 10 mg tablet Take 10 mg by mouth once daily. desvenlafaxine ER (KHEDEZLA) 50 mg 24 hr tablet Take 50 mg by mouth once daily. gabapentin (NEURONTIN) 300 mg capsule Take 300 mg by mouth as needed. ferrous sulfate (IRON) 325 mg (65 mg iron) tablet Take 325 mg by mouth daily with breakfast. Cholecalciferol, Vitamin D3, (VITAMIN D) 25 mcg (1,000 unit) cap Take 1,000 Units by mouth once daily. iv contrast (will be provided with radiology test) CT ABD/PEL -Inject, intravenously, once for 1 dose.No IV access, insert saline lock prior to the beginning of sedation, infusion, injection of imaging exam. Discontinue saline lock post exam. If Pt. has a central line or IVAD, may access for administration according to line specific nursing protocol. Once exam is complete flush line and de-access according to line specific nursing protocol in the CT contrast administration guidelines link. CITALOPRAM 20 MG TAB Take one(1) tablet daily. Aspirin 81 mg ORAL Tab Take one(1) tablet daily. HYDROCHLOROTHIAZIDE 25 MG TAB Take one(1) tablet daily. ZYRTEC 10 MG CHEWABLE TAB Take one(1) tablet daily. No current facility-administered medications for this visit. VISIT NOTE This patient was seen in clinic today to obtain informed consent, to discuss the details of their upcoming operation including the appropriate expectations for perioperative and postoperative care. In addition, preoperative and postoperative relevant prescriptions were provided and explained during this clinic visit. The consent discussion included the risks, benefits and anticipated outcomes of the procedure, the risks and benefits of the alternatives to the procedure, and the roles and tasks of the personnel to be involved. I have discussed with the patient regarding a laparoscopic possible open paraesophageal hernia repair with cruroplasty with mesh, possible Monico fundoplication, and possible gastropexy. I will also discussed operative endoscopy I have discussed the risks of surgery including infection, bleeding, injury to the esophagus, injury to stomach or spleen requiring conversion to open, injury to blood vessels causing significant blood loss, injury to lung with pneumothorax. I have discussed postoperative complications including leaks, undergone to the operating room, pneumothorax, cardiac complications including atrial fibrillation. I have also discussed long-term complications including recurrence of the hernia which has a high statistical chance, postoperative dysphagia, possible re herniation of t (more content not included)...[facility] 11-12-2021 Nurse Note* Joan Jung Ma - 11/12/2021 11:55 AM EDT What is the reason for your visit today? Pre op Who is your referring physician? Are you having poor oral intake? NO Have you had unintentional weight loss of 15 lbs/7 Kg in the last 3-6 months? NO Bowels: constipated Wound: Temperature: No Drains: No [facility] History of Present illness Narrative* Atif Mendez MD - 11/12/2021 11:30 AM EDT SURGERY PREOPERATIVE VISIT NOTE Name: Mary Goode Medical Record: [id number] Encounter No.: [id number] Mary Goode is a 70 year old female seen in surgery clinic today for their final preoperative assessment. INTERVAL NOTE: Patient needed to discuss regarding surgery. She is currently scheduled for a paraesophageal herniarepair. 10/21/2021 CT A/P 10/16/2021 esophageal manometry View External Imaging - Miscellaneous Imaging [ID [id number]] 10/07/2021 UGI Scan on 10/27/2021 8:25 AM by External Provider: GI BMI 31 PLANNED PROCEDURE: Paraesophageal hernia repair, possible Monico fundoplication. Patient is a Jew. We have discussed regarding not doing a fundoplication if risk of recurrence is assessed to be on the higher side intraoperatively. PAST MEDICAL HISTORY: PAST MEDICAL HISTORY Diagnosis Date Congenital hydrocephalus (HCC) s/p SECURITY AGENT shunt Essential hypertension ADITI (obstructive sleep apnea) Patient is Jew PAST SURGICAL HISTORY: PAST SURGICAL HISTORY Procedure Laterality Date APPENDECTOMY COLONOSCOPY EGD HYSTERECTOMY HX 2008 PAST SURGICAL HISTORY OF 2012 coil embolization for right renal aneurysm( [place]) PAST SURGICAL HISTORY OF 2006 SECURITY AGENT shunt PAST SURGICAL HISTORY OF partial right oophrectomy PAST SURGICAL HISTORY OF Right Great toe PAST SURGICAL HISTORY OF sinus surgery TONSILLECTOMY HX SOCIAL HISTORY: Social History Tobacco Use Smoking status: Never Smoker Smokeless tobacco: Never Used Substance Use Topics Alcohol use: Yes Comment: 1 drink monthly Drug use: Never ALLERGIES: ALLERGIES No Known Allergies MEDICATIONS: Prior to Admission Medications: potassium chloride (K-TAB) 10 mEq tablet Take 10 mEq by mouth once daily. ibuprofen (MOTRIN) 800 mg tablet Take 800 mg by mouth. colesevelam (WELCHOL) 625 mg tablet Take 1,875 mg by mouth daily at bedtime. labetalol (TRANDATE) 200 mg tablet Take 200 mg by mouth once daily. lansoprazole (PREVACID) 30 mg capsule Take 30 mg by mouth once daily. sucralfate (CARAFATE) 1 gram tablet Take 1 g by mouth twice daily. losartan (COZAAR) 50 mg tablet Take 50 mg by mouth once daily. amLODIPine (NORVASC) 10 mg tablet Take 10 mg by mouth once daily. desvenlafaxine ER (KHEDEZLA) 50 mg 24 hr tablet Take 50 mg by mouth once daily. gabapentin (NEURONTIN) 300 mg capsule Take 300 mg by mouth as needed. ferrous sulfate (IRON) 325 mg (65 mg iron) tablet Take 325 mg by mouth daily with breakfast. Cholecalciferol, Vitamin D3, (VITAMIN D) 25 mcg (1,000 unit) cap Take 1,000 Units by mouth once daily. iv contrast (will be provided with radiology test) CT ABD/PEL -Inject, intravenously, once for 1 dose.No IV access, insert saline lock prior to the beginning of sedation, infusion, injection of imaging exam. Discontinue saline lock post exam. If Pt. has a central line or IVAD, may access for administration according to line specific nursing protocol. Once exam is complete flush line and de-accessaccording to line specific nursing protocol in the CT contrast administration guidelines link. CITALOPRAM 20 MG TAB Take one(1) tablet daily. Aspirin 81 mg ORAL Tab Take one(1) tablet daily. HYDROCHLOROTHIAZIDE 25 MG TAB Take one(1) tablet daily. ZYRTEC 10 MG CHEWABLE TAB Take one(1) tablet daily. No current facility-administered medications for this visit. VISIT NOTE This patient was seen in clinic today to obtain informed consent, to discuss the details of their upcoming operation including the appropriate expectations for perioperative and postoperative care. In addition, preoperative and postoperative relevant prescriptions were provided and explained duringthis clinic visit. The consent discussion included the risks, benefits and anticipated outcomes of the procedure, the risks and benefits of the alternatives to the procedure, and the roles and tasks of the personnel lilian involved. I have discussed with the patient regarding a laparoscopic possible open paraesophageal hernia repair with cruroplasty with mesh, possible Monico fundoplication, and possible gastropexy. I will also discussed operative endoscopy I have discussed the risks of surgery including infection, bleeding, injury to the esophagus, injury to stomach or spleen requiring conversion to open, injury to blood vessels causing significant blood loss, injury to lung with pneumothorax. I have discussed postoperative complications including leaks, undergone to the operating room, pneumothorax, cardiac complications including atrial fibrillation. I have also discussed long-term complications including recurrenceof the hernia which has a high statistical chance, postoperative dysphagia, possible re herniation of the wrap, and recurrence of symptoms. Due to the Covid-19 pandemic our surgical cases had been delayed/postponed or entirely cancelled. At this point in time elective surgical cases are being restarted based on recommendations of the Governor of the [facility]. Although we will perform appropriate precautions to minimize patient exposure and risk, by undergoing surgery during the Covid-19 pandemic, the patient understands and accepts the unpredictable nature of the Covid-19 virus and the possibility of risks specific to the Covid-19 virus including but not limited to pneumonia, respiratory failure, sepsis, blood clots in different organs, heart attack, stroke, multiple organ failure, and . All of these risk factors are especially heightened in patients with obesity. The patient understands and accepts these risks prior to proceeding with surgery. The patient had an opportunity to ask additional questions that were answered. The patient expressed that they understood. A consent form was signed today. Prescriptions were explained and provided to the patient. Atif Mendez MD documented [facility] Miscellaneous Notes* Telephone Encounter - Gee Meeks Ma - 11/04/2021 2:49 PM EDT Patient scheduled 11/06 in [place] for ECHO * Telephone Encounter - Gee Meeks Ma - 11/03/2021 10:39 AM EDT Patient is in need of Echo before 11/16 for surgery. Is anyone able to assist in getting the patientin for this? documented in this encounter[facility]06-21-2022 Miscellaneous Notes* Telephone Encounter - Jonathon Dobson - 10/27/2021 3:58 PM EDT Records received and scanned.on 10/27 listed under GI and external imaging Misc. Not sure who scanned these. Thanks! * Telephone Encounter - Sabine Victoria Pss - 10/23/2021 12:04 PM EDT Requested reports from [facility]. Sent fax to [phone] -Manometry .02.27 -Upper GI 6.05.30 Sabine Victoria Pss documented in this encounterE[facility]06-15-2022 NoteHNO ID: [id number] Author: RT Boni(R) Service: ? Author Type: Technologist Type: Progress Notes Filed: 10/21/2021 8:44 AM Note Text: Radiology Service Progress Note PATIENT NAME: Mary Goode DATE OF SERVICE: October 21, 2021 TIME: 8:43 AM PATIENT IDENTITY VERIFICATION COMPLETED USING TWO (2) IDENTIFIERS: Name and Date of confirmed by patient verbally. FALL SCREENING: Has the patient had 2 falls in the last year or 1 fall with injury or currently using an Ambulatory Assistive Device (Walker, Cane, Wheelchair, Crutches, etc.)? No PATIENT GENDER DATA: Female. status: : No status: NO. PATIENT RELEVANT IMPLANT DATA REVIEWED: Not Applicable RADIOLOGY DEPARTMENT: CT; Exam(s) Completed: Abdomen/Pelvis PERIPHERAL IV DATA: Site assessment: Clean,Dry and Intact, Site disposition Discontinued SIGNED BY: RT Boni(R) October 21, 2021 8:43 [facility]06-15-2022 NoteHNO ID: [id number] Author: Janay Jeffrey RN Service: ? Author Type: Registered Nurse Type: Progress Notes Filed: 10/21/2021 8:30 AM Note Text: Radiology Service Progress Note DATE OF SERVICE: October 21, 2021 TIME: 8:28 AM PATIENT WEIGHT: 176 LBS PATIENT IDENTITY VERIFICATION COMPLETED USING TWO (2) STANDARD IDENTIFIERS: Name and Date of confirmed by patient verbally. FALL SCREENING: Has the patient had 2 falls in the last year or 1 fall with injury or currently using an Ambulatory Assistive Device (Walker, Cane, Wheelchair, Crutches, etc.)? No PATIENT GENDER DATA: Female. status: : No status: NO. ALLERGIES: Reviewed and unchanged CONTRAST ALLERGY: No EXAM: CT -CONTRAST INDUCED NEPHROPATHY RISK FACTORS: Patient age > 60 years and Known Chronic Kidney Disease (CKD) CREATININE: Creatinine Date Value Ref Range Status 10/21/2021 1.04 (H) 0.58 - 0.96 mg/dL Final 03/07/2013 1.02 0.70 - 1.40 mg/dL Final 07/07/2006 0.6 (L) 0.7 - 1.4 mg/dL Final Estimated Glomerular Filtration Rate Date Value Ref Range Status 10/21/2021 59 (L) >=60 mL/min/1.73m? Final Comment: Estimated Glomerular Filtration Rate (eGFR) is calculated using the 2020 CKD-EPI creatinine equation. This equation utilizes serum creatinine, sex, and age as parameters. The creatinine assay has traceable calibration to isotope dilution-mass spectrometry. Refer to KDIGO guidelines for clinical interpretation. In patients with unstable renal function, e.g. those with acute kidney injury, the eGFR may not accurately reflect actual GFR. P.O.C.T. RESULTS: POC done: Yes, See Lab Tab October 21, 2021 TREATMENT: No Hydration needed. IV SITE: Ambulatory: A peripheral IV was started in the Right antecubital site with a Angio cath: 20 gauge. 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 Author Type: Physician Type: Progress Notes Filed: 10/07/2021 8:44 PM Note Text: NEW FOREGUT PATIENT PATIENT NAME: Mary Goode REASON FOR CONSULT: Hiatal hernia REQUESTING PHYSICIAN: Dr. 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 Patient reports heart burn, excess salivation and occasional regurgitaion. She denies any ALARM features including weight loss, GIB, odynyophagia or dysphagia. Her PSH include open appendectomy, JUANI, and SECURITY AGENT shunt placement. The patient's most recent EGD was done in 09/03 and the report is included below Chart Review: -hx: worsening GERD - referred by Dr. Ramirez for GERD/Hiatal Hernia Scan on 09/03/2021 ?9:36 AM by Jonathon Dobson: [facility] progress note 07/22/2021 Dr. Ramirez - 08/06/2021 EGD Scan on 09/03/2021 ?9:35 AM by Jonathon Dobson: [facility] EGD 08/06/2021 Dr. Ramirez -09/17/2015 EGD Scan on 09/03/2021 ?9:33 AM by Jonathon Dobson: [facility] Operative report 09/17/2015 Dr. Walter Difficulty swallowing / foods sticking in throat:No Heartburn: Yes Chronic cough: No Regurgitation: Yes} Chest pain: No Filling up quickly at meals:No Loss of appetite:No Nausea: No Vomiting: Yes Abdominal pain:No Recent change in weight:No Dysphagia:No PAST MEDICAL HISTORY: No past medical history on file. PAST SURGICAL HISTORY: No past surgical history on file. FAMILY HISTORY: No family history on file. SOCIAL HISTORY: Social History Tobacco Use - Smoking status: Never Smoker - Smokeless tobacco: Not on file Substance Use Topics - Alcohol use: Not on file - Drug use: Not on file Review of Systems: The remainder of the review of systems is negative. PHYSICAL EXAMINATION: BP 122/57 (BP Site: Left Arm, BP Position: Sitting, BP Cuff Size: Regular Adult) Pulse 70 Ht 165.1 cm (5' 5 ) Wt 80.7 kg (178 lb) LMP 05/31/2006 SpO2 97% BMI 29.62 kg/m? General appearance: Well appearing, alert, in no acute distress, well-hydrated, well nourished. Skin: Skin color, texture, turgor normal, no suspicious rashes or lesions Head: Normocephalic, no masses, lesions, tenderness or abnormalities Eyes: Anicteric sclera. Pupils are equally round and reactive to light. Extraocular movements are intact. Ears: External ears normal, canals clear Nose/Sinuses: Nares normal, septum midline, mucosa normal, no drainage or sinus tenderness Oropharynx: Lips, mucosa, and tongue normal, teeth and gums normal, oropharynx normal Neck: Supple, no adenopathy; thyroid symmetric, normal size, no bruits Back: Normal exam Lungs: Lungs clear to auscultation. No wheezing, rhonchi, rales. Heart: RRR without murmur, gallop, or rubs. No ectopy Abdomen: Normal abdominal exam, Abdomen soft, non-tender. Bowel sounds normal. No masses, organomegaly. Healed incision from previous open appendectomy and JUANI. Extremities: No deformities, edema, skin discoloration, clubbing or cyanosis. Good capillary refill. Musculoskeletal: No joint swelling, deformity, or tenderness Peripheral pulses: Normal Neuro: Gait normal. Reflexes normal and symmetric. Sensation grossly intact. 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 - Follow up Manometry and UGI. Plan: Mary Goode is a 70 year old female who was referred to me by Dr. Ramirez for a paraesophageal hernia. Patient was worked up for severe foregut symptoms including severe acid reflux, significant regurgitation, cough and sore throat and underwent an EGD that noted a paraesophageal hernia. She has had the symptoms for several years and the symptoms have continued despite medical management with lansoprazole and Carafate. She does not have any worrisome symptoms including dysphagia, loss of weight or loss of appetite although she does have epigastric discomfort occasionally. Her past medical and past surgical history are as above but most relevantly she is a Jew. She does not smoke and does not consume alcohol on a regular basis. Her physical examination reveals lower midline hernia for a total abdominal hysterectomy. She has a previous history of a SECURITY AGENT shunt for congenital hydrocephalus, has not followed up with a neurosurgeon for several years. (more content not included)...[facility]05-26-2022 History of Present illness Narrative* Atif Mendez MD - 10/01/2021 10:37 AM EDT NEW FOREGUT PATIENT PATIENT NAME: Mary Goode REASON FOR CONSULT: Hiatal hernia REQUESTING PHYSICIAN: Dr. 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 Patient reports heart burn, excess salivation and occasional regurgitaion. She denies any ALARM features including weight loss, GIB, odynyophagia or dysphagia. Her PSH include open appendectomy, JUANI, and SECURITY AGENT shunt placement. The patient's most recent EGD was done in09/03 and the report is included below Chart Review: -hx: worsening GERD - referred by Dr. Ramirez for GERD/Hiatal Hernia Scan on 09/03/2021 9:36 AM by Jonathon Dobson: [facility] progress note 07/22/2021 Dr. Ramirez - 08/06/2021 EGD Scan on 09/03/2021 9:35 AM by Jonathon Dobson: [facility] EGD 08/06/2021 Dr. Ramirez -09/17/2015 EGD Scan on 09/03/2021 9:33 AM by Jonathon Dobson: [facility] Operative report 09/17/2015 Dr. Walter Difficulty swallowing / foods sticking in throat:No Heartburn: Yes Chronic cough: No Regurgitation: Yes} Chest pain: No Filling up quickly at meals:No Loss of appetite:No Nausea: No Vomiting: Yes Abdominal pain:No Recent change in weight:No Dysphagia:No PAST MEDICAL HISTORY: No past medical history on file. PAST SURGICAL HISTORY: No past surgical history on file. FAMILY HISTORY: No family history on file. SOCIAL HISTORY: Social History Tobacco Use Smoking status: Never Smoker Smokeless tobacco: Not on file Substance Use Topics Alcohol use: Not on file Drug use: Not on file Review of Systems: The remainder of the review of systems is negative. PHYSICAL EXAMINATION: BP 122/57 (BP Site: Left Arm, BP Position: Sitting, BP Cuff Size: Regular Adult) Pulse 70 Ht 165.1 cm (5' 5 ) Wt 80.7 kg (178 lb) LMP 05/31/2006 SpO2 97% BMI 29.62 kg/m General appearance: Well appearing, alert, in no acute distress, well-hydrated, well nourished. Skin: Skin color, texture, turgor normal, no suspicious rashes or lesions Head: Normocephalic, no masses, lesions, tenderness or abnormalities Eyes: Anicteric sclera. Pupils are equally round and reactive to light. Extraocular movements are intact. Ears: External ears normal, canals clear Nose/Sinuses: Nares normal, septum midline, mucosa normal, no drainage or sinus tenderness Oropharynx: Lips, mucosa, and tongue normal, teeth and gums normal, oropharynx normal Neck: Supple, no adenopathy; thyroid symmetric, normal size, no bruits Back: Normal exam Lungs: Lungs clear to auscultation. No wheezing, rhonchi, rales. Heart: RRR without murmur, gallop, or rubs. No ectopy Abdomen: Normal abdominal exam, Abdomen soft, non-tender. Bowel sounds normal. No masses, organomegaly. Healed incision from previous open appendectomy and JUANI. Extremities: No deformities, edema, skin discoloration, clubbing or cyanosis. Good capillary refill. Musculoskeletal: No joint swelling, deformity, or tenderness Peripheral pulses: Normal Neuro: Gait normal. Reflexes normal and symmetric. Sensation grossly intact. 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 - Follow up Manometry and UGI. Plan: Mary Goode is a 70 year old female who was referred to me by Dr. Ramirez for a paraesophageal hernia. Patient was worked up for severe foregut symptoms including severe acid reflux, significant regurgitation, cough and sore throat and underwent an EGD that noted a paraesophageal hernia. She has had the symptoms for several years and the symptoms have continued despite medical manag ement with lansoprazole and Carafate. She does not have any worrisome symptoms including dysphagia,loss of weight or loss of appetite although she does have epigastric discomfort occasionally. Her past medical and past surgical history are as above but most relevantly she is a Jew. She does not smoke and does not consume alcohol on a regular basis. Her physical examination reveals lower midline hernia for a total abdominal hysterectomy. She has a previous history of a SECURITY AGENT shunt for congenital hydrocephalus, has not followed up with a neurosurgeon for several years. There is no imaging to review, I have reviewed the reports from the endoscopy. Patient would benefit from repair of her paraesophageal hernia. She would benefit from a manometry preop given severe reflux symptoms. We will also get an upper GI. A CT will be obtained to look at the anatomy of the SECURITY AGENT shunt. She will see me back as soon as these are done and we will get her scheduled for surgery. Upper GI Manometry CT abdomen pelvis Jew Weight loss as possible I have discussed with the patient regarding a laparoscopic possible open paraesophageal hernia repair with cruroplasty with mesh, possible fundoplication, and possible gastropexy and intraoperative endoscopy. I have discussed with the patient specifically the risks benefits and alternatives to surgery. The risks that I discussed include intraoperative risks including injury to the esophagus, injury to stomach or spleen requiring conversion to open, injury to blood vessels causing significant blood loss, injury to lung with pneumothorax. I have discussed postoperative complications including leaks, undergone to the operating room, pneumothorax, cardiac complications including atrial fibrillation. I have also discussed long-term complications including recurrence of the hernia which has a high statistical chance, postoperative dysphagia, possible re herniation of the wrap, and recurrence of symptoms. The patient expressed understanding of the information conveyed. This office note will be sent to the referring provider via electronic medical record and US mail. Atif Mendez MD Medical Decision Making: Problems: Moderate: New problem with uncertain prognosis Data: Unique test result(s) reviewed: 1 Risk: High: Decision on elective major surgery w/ risk factors Medical Decision Making Level: 4 - Moderate documented in this encounterE[facility]05-26-2022 Nurse Note* Yolanda Castro MA - 10/01/2021 10:29 AM EDT What is the reason for your visit today? New patient referred for uncontrolled GERD and large hiatal hernia. Who is your referring physician? Dr. Ramirez Are you having poor oral intake? Yes cannot eat certain foods. Have you had unintentional weight loss of 15 lbs/7 Kg in the last 3-6 months? NO Bowels: Varies Wound: None Temperature: No Drains: No documented in this encounterE[facility]04-28-2022 Miscellaneous Notes* Telephone Encounter - Joanthon Dobson - 09/03/2021 9:37 AM EDT Received medical records from Dr. Ramirez. Progress Note 07/22/2021 EGD [id number] Old Operative Report 09/17/2015 Please review. documented in this encounterEly[facility]01-25-2022 Evaluation note* Encounter Date Diagnosis Assessment Notes Treatment Notes Treatment Clinical Notes May, Hyponatremia (ICD-10 - E87.1) She had hyponatremia and appears to be euvolemic. Her hyponatremia is likely due to HCTZ. She has normal cortisol. Continue fluid restriction to 50 ounces a day. May, Chronic kidney disease, stage 3 unspecified (ICD-10 - N18.30) She has longstanding HTN likely has CKD as a result of it. Her b/l serum creatinine is 1.0-1.2 mg/dl. Her renal US was unremarkable. I have discussed with her the importance of good HTN control to slow down the progression of disease. May, Hypertensive chronic kidney disease with stage 1 through stage 4 chronic kidney disease, or unspecified chronic kidney disease (ICD-10 - I12.9) Blood pressure is controlled. Continue current medications May, Vitamin D deficiency (ICD-10 - E55.9) Calcium and vitamin D are within the goal. Continue oral vitamin D. 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 Continue oral potassium supplement. May, Anemia of renal disease (ICD-10 - D63.1) Hb is within the goal. Continue oral Iron. Advised to have GI follow up May, Osteoporosis (ICD-10 - M81.0) She reported to have Osteoporosis . Continue Prolia Soft Tissue Regeneration Other Chief complaint Narrative - Reported* Patient is being seen for an initial Neurosurgical evaluation and Patient is referred by Dr. Adan Gonzalez for a 2nd opinion on her cervical spine. * Pt. is experiencing low back and neck pain. Pt. describes her symptoms as aching with tingling in the left shoulder area, and that the symptoms are constant. [id number] [id number] Work Phone: Evaluation note* Diagnosis Paraesophageal hernia- Primary Diaphragmatic hernia without mention of obstruction or gangrene documented [facility] noteNo InformationNort [place] Other Evaluation note* Diagnosis Paraesophageal hernia- Primary Diaphragmatic hernia without mention of obstruction or gangrene Paraesophageal hernia Diaphragmatic hernia without mention of obstruction or gangrene documented [facility]* Diagnosis Encounter for education- Primary Counseling NOS Paraesophageal hernia Diaphragmatic hernia without mention of obstruction or gangrene documented [facility]* Diagnosis S/P repair of paraesophageal hernia- Primary Other postprocedural status Paraesophageal hernia Diaphragmatic hernia without mention of obstruction or gangrene documented in this encounter [facility] noteNo assessment information [facility] Work Phone: Evaluation note* Diagnosis S/P repair of paraesophageal hernia- Primary Other postprocedural status Long-term current use of proton pump inhibitor therapy documented [facility]* Diagnosis Preop testing- Primary Unspecified pre-operative examination Cervical spondylosis with myelopathy Coagulation defect, unspecified (CMS/HCC) Cervical spondylosis with myelopathy Spinal stenosis, cervical region Other spondylosis with myelopathy, cervical region documented in this encounter [facility] Work Phone: Evaluation note* Diagnosis Preop testing- Primary Unspecified pre-operative examination Preop testing Unspecified pre-operative examination Cervical spondylosis with myelopathy Coagulation defect, unspecified (CMS/HCC) Spinal stenosis, cervical region Other spondylosis with myelopathy, cervical region Spine disorder Other unspecified back disorder Acute post-operative pain Drug-induced constipation Other constipation Normal pressure hydrocephalus syndrome (CMS/HCC) Idiopathic normal pressure hydrocephalus (INPH) S/P cervical spinal fusion Arthrodesis status Essential hypertension Unspecified essential hypertension Cervical spondylosis with myelopathy Spine disorder Other unspecified back disorder documented in this encounter [facility] Work Phone: Evaluation note* Diagnosis Cervical spondylosis with myelopathy documented in this encounter [facility] Work Phone: Evaluation note* Diagnosis Cervical spondylosis with myelopathy documented in this encounter [facility] Work Phone: Evaluation note* Diagnosis 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 documented in this encounter [facility] Work Phone: Evaluation note* Diagnosis 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) documented in this encounter [facility] Work Phone: Evaluation note* Diagnosis 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) documented in this encounter [facility] Work Phone: Evaluation note* Diagnosis 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 April 08, 2022 9:25am Note Date/Time April 08, 2022 9 :25am [facility] [address] [place] [address] Gastroenterology H&P Signed Patient: Mary Goode MR#: [id number] : 1950 Acct:[id number] Age/Sex: 71 / F Adm Date: 2 Loc: Room: Type: [facility] Attending Dr: Jorge Ramirez MD Copies to: MD Imer Clements MD~ Date of Service: 04/08/2022 HISTORY & PHYSICAL: Patient's history with special attention to the cardiovascular, pulmonary systems and the current problem was reviewed with the patient immediately prior to the procedure. Present medications and doses reviewed in the EMR. Allergies and pertinent laboratory tests were also reviewedat this time in the EMR. The physical examination, as below, was then performed. Indication, assessment and HPI: 71-year-old female presents for colonoscopy to evaluate history of iron deficiency anemia Family history of GI malignancy? Yes, mother from [place] in her 40s PHYSICAL EXAMINATION Mouth and Pharynx : Moist mucus membranes, normal dentition Cardiac: Regular rate, regular rhythm Pulmonary: Clear to auscultation bilaterally, no wheezing Neurological: Alert and oriented x3, no focal deficits noted Abdomen: Abdomen soft, non-tender REVIEW OF SYSTEMS Constitutional: Denies malaise, fevers Cardiovascular: Denies chest pain, palpitations Respiratory: Denies shortness of breath, wheezing Gastrointestinal: Per HPI Genitourinary: Denies dysuria, polyuria Musculoskeletal: Denies joint swelling, joint stiffness Neurological: Denies numbness, tingling Integumentary: Denies rashes, skin lesions Endocrine: Denies fatigue, weight loss Written informed consent obtained from the patient. Risks (including but not limited to perforation, infection, bloating, bleeding, need for emergent surgeryand loss of life), benefits and alternatives explained and questions answered. The patient verbalized understanding. Based on history patient is an appropriate candidate for the procedure. Jorge Ramirez MD Documented By: Jorge Ramirez MD 04/08/22924 Signed By: <Electronically signed by Jorge Ramirez MD> 04/08/22924 [facility] Work Phone: History general Narrative - Reported* Type Description Date Medical History hypertension dx age 47 Medical History HX hypokalemia 2005 Medical History HX hydrocephalus 2007 Medical History hx of renal insufficiency Medical History kidney disease Medical History degenerative disc disease Medical History CERVICAL RADICULOPATHY Medical History CERVICAL SPONDYOSIS Medical History LOW BACK PAIN Surgical History TONSILLECTOMY Surgical History APPENEDECTOMY Surgical History FIRST METATARSAL CUNIFORM ARTHR ODESIS Surgical History RIGHT BREAST BIOPSY Surgical History HYSTERECTOMY Surgical History THIRD VENTRICULOSTOMY Surgical History VENTRICULOPERITONEAL SHUNT SURG VAMSI Surgical History RIGHT RENAL STENT ([facility]) 02/2013 Hospitalization History cadence/ primary aldoste ronism Hospitalization History same as above Soft Tissue Regeneration Other History general Narrative - Reported* Type Description Date Medical History hypertension dx age 47 Medical History HX hypokalemia 2006 Medical History HX hydrocephalus 2007 Medical History hx of renal insufficiency Medical History kidney disease Medical History degenerative disc disease Medical History CERVICAL RADICULOPATHY Medical History CERVICAL SPONDYOSIS Medical History LOW BACK PAIN Surgical History TONSILLECTOMY Surgical History APPENEDECTOMY Surgical History FIRST METATARSAL CUNIFORM ARTHR ODESIS Surgical History RIGHT BREAST BIOPSY Surgical History HYSTERECTOMY Surgical History THIRD VENTRICULOSTOMY Surgical History VENTRICULOPERITONEAL SHUNT SURG VAMSI Surgical History RIGHT RENAL STENT ([facility]) 02/2013 Surgical History HITAL HERNIA SURGERY 11/16/2021 Hospitalization History cadence/ primary aldoste ronism Hospitalization History same as above Soft Tissue Regeneration Other History of Present illness Narrative* The patient who is a 72-year-old female came back in with her friend today to discuss the results of the CAT scan of her cervical spine. Initially I was hoping that we would only have to do 3 or so levels and making 1 possibly an arthroplasty level but however looking at the CAT scan in my hands I can only with a clear conscience recommend 4 level anterior cervical discectomy with interbody fusion and plate fixation at C3-4, C4-5, C5-6, and C6-7. I went over the operation with her in detail. Wediscussed risks,(these include but are not limited to - bleeding, infection, paralysis, muscle weakness, CSF leak, bowel or bladder dysfunction, incomplete resolution of pain or numbness, DVT/PE, heart attack, stroke, and other unforeseen medical and anesthesia complications) benefits, and outcome possibilities as well as the alternatives to this form of therapy. She understands and would like toproceed. * She is a Jew and so we definitely discussed not using blood products. She also has a SECURITY AGENT shunt and and so we are going to make certain that the monitoring team knows where the tubing is so that we do not accidentally stick in electrode into it. She is going to consider her options and tell us when she wants to schedule the surgery. [id number] Work Phone: Hospital Discharge instructions Additional Instructions DISCHARGE INSTRUCTIONS FOR COLONOSCOPY WHAT TO EXPECT: - You may feel full, gassy or cramping after your procedure. In some cases, this may be from a few hours to a day. Walking may help relieve the discomfort. - You should begin to recover from anesthesia within 1 hour of the procedure, however may feel groggy for the next 24 hours. DO's AND DON'Ts: - Call your doctor right away if you have a hard abdomen, severe pain, are passing lots of bright red blood or clots. - Call your doctor if you develop any rashes, hives or difficulty breathing. - Let your doctor know if you have not had a bowel movement by 3 days after your procedure. - If you take 81 mg aspirin for your heart it is safe to resume this medication. - If you take other blood thinner medications your doctor will instruct you when these can safely be resumed. - Do NOT drive for 24 hours. - Do NOT operate machinery such as power tools, lawn mowers, snow blowers, sewing machines, etc. for 24 hours. - Avoid alcoholic beverages and drugs for allergies, nerves, or sleep. - Do NOT stay alone. Do NOT leave your child unattended. - Do NOT make important personal or business decisions or sign any legal documents. - Eat solid foods and drink liquids in smaller amounts than usual until normal appetite returns. If you should experience an upset stomach, liquids high in sugar content (soda, Carl-Aid, non-acid juices) are recommended. - You can resume normal activities tomorrow. FOLLOW UP & RECOMMENDATIONS: - Follow-up with Dr. Ramirez as needed - Notify the doctor if you have any problems. - Repeat colonoscopy at age 77 - Follow up with PCP. - Office number [phone].[facility] Work Phone: Reason for referral (narrative)* Consultation (Routine) - Pending Review Specialty Diagnoses / Procedures Referred By Enriquetaac t Referred To Contact Physical Therapy Diagnoses 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) Status post cervical spinal fusion Mireille Zurita MD [address] [place] [address] Referral ID Status Reason Start Date Expiration Date Visits Requested Visits Authorized [id number] Pending Review Specialty Services Required 06/16/2023 06/15/2024 1 1 [facility] Work Phone: Reason for visit NarrativeReferral update - [facility] Other Summary Purpose Family History No Family History Records Found Relationship Condition Age at Onset Recorded Date/T roney Not Specified Malignant neoplasm of rectum Unknown father Heart disease Unknown Advance Directives No Advanced Directives Records FoundDocuments on File Type Date Recorded 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 Advance Directive(s) 06/23/2006 12:00 AM Documents on File Type Date Recorded 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 Advance Directive(s) 06/23/2006 12:00 AM Documents on File Type Date Recorded 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 Advance Directive(s) 11/03/2021 10:09 AM Advance Directive(s) 06/23/2006 12:00 AM Documents on File Type Date Recorded 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 Advance Directive(s) 11/10/2021 3:28 PM Advance Directive(s) 11/03/2021 10:09 AM Advance Directive(s) 06/23/2006 12:00 AM Advance Directive Response Recorded Date/ Time Advance Directives Yes January 11:06am Advance Directive Response Recorded Date/ Time Advance Directives Yes January 10:06am Documents on File Type Date Recorded 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 Advance Directive(s) 11/03/2021 10:09 AM Advance Directive(s) 06/23/2006 Latest Code Status on File Code Status Date Activated Date Inactivated Comments Full Code 03/21/2023 4:19 PM Question Answer Comments Plan of Care: Code Status Discussion Not Compl eted Decision Maker: Ozzy zurita Rationale: Patient condition do es not warrant discussion Code Status History Code Status Date Activated Date Inactivated Comments Full Code 03/21/2023 6:49 AM 03/21/2023 4:19 PM Question Answer Comments Plan of Care: Code Status Discussion Not Compl eted Decision Maker: Provider Rationale: Patient condition do es not warrant discussion Latest Code Status on File Code Status Date Activated Date Inactivated Comments Full Code 03/21/2023 4:19 PM 03/23/2023 12:38 PM Question Answer Comments Plan of Care: Code Status Discussion Not Compl eted Decision Maker: Ozzy zurita Rationale: Patient condition do es not warrant discussion Latest Code Status on File Code Status Date Activated Date Inactivated Comments Full Code 03/21/2023 4:19 PM 03/23/2023 12:38 PM Question Answer Comments Plan of Care: Code Status Discussion Not Compl eted Decision Maker: Ozzy zurita Rationale: Patient condition do es not warrant discussion Code Status History Code Status Date Activated Date Inactivated Comments Full Code 03/21/2023 6:49 AM 03/21/2023 4:19 PM Question Answer Comments Plan of Care: Code Status Discussion Not Compl eted Decision Maker: Provider Rationale: Patient condition do es not warrant discussion Reason for Referral Specialty Diagnoses / Procedures Referred By Contac t Referred To Contact CT IMAGING Diagnoses Paraesophageal hernia Procedures CT ABD/PEL W IVCON CT ABD & P[place] [address] [place] [address] Ct Imaging Referral ID Status Reason Start Date Expiration Date Visits Requested Visits Authorized [id number] Authorized Auto-Generat ed Referral 10/01/2021 10/31/2022 1 1 Specialty Diagnoses / Procedures Referred By Contac t Referred To Contact XR IMAGING Diagnoses Paraesophageal hernia Procedures XR UPPER GI SINGLE CONTRAST RADIOLOGIC EXAM UPR GI [place] [address] [address] [place] [address] Xr Imaging Referral ID Status Reason Start Date Expiration Date Visits Requested Visits Authorized [id number] Pending Review Auto-Generat ed Referral 10/01/2021 10/31/2022 1 1 Specialty Diagnoses / Procedures Referred By Contac t Referred To Contact [facility] Diagnoses Paraesophageal hernia Procedures MANOMETRY ESOPHAGEAL ESOPHAGEAL MOTILITY STUDY W/INTERP&[place] [address] [place] [address] [facility] [address] [place] [address] Referral ID Status Reason Start Date Expiration Date Visits Requested Visits Authorized [id number] Pending Review Auto-Generat ed Referral 10/01/2021 09/28/2022 1 1 Reason *Waiting for appt Evaluate and Treat Back and Leg Pain Diagnosis 1 DDD (degenerative di sc disease), lumbar (M51.36) Referral Organization [facility] Referring Provider First Name Keagan Referring Provider Last Name Farrukh Referring Provider Specialty Neurologica l Surgery Referred Organization [facility] Pain Managemen t Bone [place] Referred Provider Ziyad Ngo Referred Address [address] [facility] [place],[address] Referred Provider Specialty Pain Medicin e Referral Priority Routine General Notes Liliana Sagastume 022 02:47:54 PM >Received today and sent P2P Specialty Diagnoses / Procedures Referred By Contac t Referred To Contact Radiology Diagnoses Cervical spondylosis with myelopathy Procedures XR chest 2 views Mireille Zurita MD [address] [place] [address] Referral ID Status Reason Start Date Expiration Date Visits Requested Visits Authorized [id number] Authorized Perform Procedure 03/10/2023 03/09/2024 1 1 Specialty Diagnoses / Procedures Referred By Contac t Referred To Contact Diagnoses Acute post-operative pain S/P cervical spinal fusion Araseli Faustin, 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 [address] [place] [address] Referral ID Status Reason Start Date Expiration Date Visits Re quested Visits Authorized [id number] Closed 1 1 Specialty Diagnoses / Procedures Referred By Contac t Referred To Contact Diagnoses Cervical spondylosis with myelopathy Procedures ECG 12 Lead Mireille Zurita MD [address] [place] [address] Referral ID Status Reason Start Date Expiration Date V isits Requested Visits Authorized [id number] Pending Review 03/10/2023 03/09/2024 1 1 Specialty Diagnoses / Procedures Referred By Contac t Referred To Contact Radiology Diagnoses 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) Procedures XR cervical spine 2-3 views Mireille Zurita MD [address] [place] [address] Referral ID Status Reason Start Date Expiration Date Visits Requested Visits Authorized [id number] Authorized Perform Procedure 05/10/2023 05/09/2024 1 1 Chief Complaint and Reason for Visit Chief Complaint m54.16 m41.9 ventric ular intracranial shunt Chief Complaint m54.16 m41.9 ventric ular intracranial shunt m54.2 Iron Deficiency Anemia Chief Complaint m54.2 Iron Deficiency Anemia z98.890 z87.19 Chief Complaint z98.890 z87.19 r41.89 g91.2 Chief Complaint z98.890 z87.19 r41.89 g91.2 Z12.31 Z13.820 Chief Complaint z98.890 z87.19 r41.89 g91.2 Z12.31 Z13.820 r knee pain Chief Complaint * Patient is being seen for Patient is here for follow-up after completing her cervical CT-scan. and a follow-up Neurosurgical visit. * Pt. is experiencing neck and low back pain. Pt. describes her symptoms as aching, and that the symptoms are intermittent. Additional Source Comments INFORMATION SOURCE (unrecogn ized section and content) DATE CREATED AUTHOR 11/02/2017 [facility] DATE CREATED AUTHOR AUTHOR'S ORGANIZ ATION 06/10/2021 [facility] DATE CREATED AUTHOR AUTHOR'S ORGANIZ ATION 11/25/2021 [facility] DATE CREATED AUTHOR AUTHOR'S ORGANIZ ATION 06/02/2022 [facility] DATE CREATED AUTHOR AUTHOR'S ORGANIZ ATION 07/31/2022 [facility] DATE CREATED AUTHOR AUTHOR'S ORGANIZ ATION 01/14/2023 [facility] DATE CREATED AUTHOR AUTHOR'S ORGANIZ ATION 01/22/2023 [facility] DATE CREATED AUTHOR AUTHOR'S ORGANIZ ATION 03/30/2023 [facility] DATE CREATED AUTHOR AUTHOR'S ORGANIZ ATION 05/29/2023 [facility] DATE CREATED AUTHOR AUTHOR'S ORGANIZ ATION 06/14/2023 [facility] DATE CREATED AUTHOR AUTHOR'S ORGANIZ ATION 06/20/2023 [facility] DATE CREATED AUTHOR AUTHOR'S ORGANIZ ATION 07/11/2023 [facility] Source Comments (unrecognize d section and content) In the event this informatio n is protected by the Federal Confidentiality of Alcohol and Drug Abuse Patient Records regulations: The Federal rules restrict any use of the information to criminally investigate or prosecute any alcohol or drug abuse patient.[facility] the event this information is protected by the Federal Confidentiality of Alcohol and Drug Abuse Patient Records regulations: The Federal rules restrict any use of the information to criminally investigate or prosecute any alcohol or drug abuse patient.[facility] Hospital[facility] the event this information is protected by the Federal Confidentiality of Alcohol and Drug Abuse Patient Records regulations: The Federal rules restrict any use of the information to criminally investigate or prosecute any alcohol or drug abuse patient.[facility] Hospital[facility] the event this information is protected by the Federal Confidentiality of Alcohol and Drug Abuse Patient Records regulations: The Federal rules restrict any use of the information to criminally investigate or prosecute any alcohol or drug abuse patient.[facility] the event this information is protected by the Federal Confidentiality of Alcohol and Drug Abuse Patient Records regulations: The Federal rules restrict any use of the information to criminally investigate or prosecute any alcohol or drug abuse patient.[facility] Hospital[facility] the event this information is protected by the Federal Confidentiality of Alcohol and Drug Abuse Patient Records regulations: The Federal rules restrict any use of the information to criminally investigate or prosecute any alcohol or drug abuse patient.[facility] Hospital[facility] the event this information is protected by the Federal Confidentiality of Alcohol and Drug Abuse Patient Records regulations: The Federal rules restrict any use of the information to criminally investigate or prosecute any alcohol or drug abuse patient.[facility] the event this information is protected by the Federal Confidentiality of Alcohol and Drug Abuse Patient Records regulations: The Federal rules restrict any use of the information to criminally investigate or prosecute any alcohol or drug abuse patient.[facility] Hospital[facility] the event this information is protected by the Federal Confidentiality of Alcohol and Drug Abuse Patient Records regulations: The Federal rules restrict any use of the information to criminally investigate or prosecute any alcohol or drug abuse patient.[facility] Hospital[facility] the event this information is protected by the Federal Confidentiality of Alcohol and Drug Abuse Patient Records regulations: The Federal rules restrict any use of the information to criminally investigate or prosecute any alcohol or drug abuse patient.[facility] Reason for Visit (unrecogniz ed section and content) Reason Comments Received Outside Medical Records Reason Comments New Patient GERD Hernia Reason Comments Request Outside Medical Records Reason Comments Orders Reason Comments Pre-Op Visit Reason Comments Education Of Patient/family LPEH Repair Reason Comments Post Op Follow Up paraesophageal herni a repair Reason Comments 6 Month Exam S/p paraesophageal h ernia repair Specialty Diagnoses / Procedures Referred By Heidi li Referred To Contact Radiology Diagnoses Cervical spondylosis with myelopathy Procedures XR chest 2 views Mireille Zurita MD [address] [place] [address] Referral ID Status Reason Start Date Expiration Date Visits Requested Visits Authorized [id number] Authorized Perform Procedure 03/10/2023 03/09/2024 1 1 Specialty Diagnoses / Procedures Referred By Contac t Referred To Contact Diagnoses Spinal stenosis, cervical region Other spondylosis with myelopathy, cervical region Spinal stenosis, cervical region [M48.02] Other spondylosis with myelopathy, cervical region [M47.12] Procedures WI ARTHRD ANT INTERDY CERVCL BELW C2 EA ADDL NTRSPC WI ARTHRD ANT INTERBODY DECOMPRESS CERVICAL BELW C2 WI ALLOGRAFT FOR SPINE SURGERY ONLY STRUCTURAL WI ANTERIOR INSTRUMENTATION 4-7 VERTEBRAL SEGMENTS C3-4, C4-5, C5-6, C6-7 ANTERIOR DISC EXCISION/ ALLOGRAFT FUSION & PLATE FIXATION WITH FLAT PLATE CERVICAL X-RAY Mireille Zurita MD [address] [place] [address] [address] Referral ID Status Reason Start Date Expiration Date Visits Re quested Visits Authorized [id number] 1 1 Specialty Diagnoses / Procedures Referred By Contac t Referred To Contact Diagnoses Cervical spondylosis with myelopathy Procedures ECG 12 Lead Mireille Zurita MD [address] [place] [address] Referral ID Status Reason Start Date Expiration Date V isits Requested Visits Authorized [id number] Pending Review 03/10/2023 03/09/2024 1 1 Reason Comments Post-op Visit Specialty Diagnoses / Procedures Referred By Contac t Referred To Contact Radiology Diagnoses 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 stenosis of cervical region ([facility]) Procedures XR cervical spine 2-3 views Mireille Zurita MD [address] [place] [address] Referral ID Status Reason Start Date Expiration Date Visits Requested Visits Authorized [id number] Authorized Perform Procedure 05/10/2023 05/09/2024 1 1 Reason Comments Post-op Spine Surgery Intermittent neck stiffness and headaches. Care Teams (unrecognized sec tion and content) School Principal Relationship Specialty Start Date End Date Monika Guerrero [address] [place] [address] PCP - General 08/13/04 School Principal Relationship Specialty Start Date End Date Monika Guerrero [address] [facility] [place] [place] [address] PCP - General 08/13/04 School Principal Relationship Specialty Start Date End Date Monika Guerrero [address] [facility] [place] [address] PCP - General 08/13/04 School Principal Relationship Specialty Start Date End Date Imer Purcell MD [address] [id number] PCP - General Family Practice 11/03/21 School Principal Relationship Specialty Start Date End Date Imer Purcell MD [address] [id number] PCP - General Family Practice 11/03/21 School Principal Relationship Specialty Start Date End Date Imer Purcell MD [address] [id number] PCP - General Family Practice 11/03/21 School Principal Relationship Specialty Start Date End Date Imer Purcell MD [address] [id number] PCP - General Family Practice 11/03/21 School Principal Relationship Specialty Start Date End Date Imer Purcell MD [address] [id number] PCP - General Family Practice 11/03/21 Team Status: Inactive Member Role Status Karlie Purcell MD Primary Care Provider, Attending Teresa fisher Active Team Status: Active Member Role Status Karlie Purcell MD Primary Care Provider Active Team Status: Inactive Member Role Status Karlie Purcell MD Primary Care Provider Active Adan Gonzalez Attending Provider Active Team Status: Inactive Member Role Status Dates Imer Purcell MD Primary Care Provider Active Jorge Ramirez MD Attending Provider Active School Principal Relationship Specialty Start Date End Date Imer Purcell MD [address] [place] [address] PCP - General Family Medicine 11/03/21 Team Status: Inactive Member Role Status Dates Imer Purcell MD Primary Care Provider Active Freda Pop NP-C Attending Provider Active Team Status: Inactive Member Role Status Dates Imer Purcell MD Primary Care Provider Active DORIS RosenbergC Attending Provider Active School Principal Relationship Specialty Start Date End Date Imer Purcell MD [address] [place] [address] PCP - General 12/07/22 School Principal Relationship Specialty Start Date End Date Imer Purcell MD [address] [place] [address] PCP - General 12/07/22 School Principal Relationship Specialty Start Date End Date Imer Purcell MD [address] [place] [address] PCP - General 12/07/22 School Principal Relationship Specialty Start Date End Date Imer Purcell MD [address] [place] [address] PCP - General 12/07/22 School Principal Relationship Specialty Start Date End Date Imer Purcell MD [address] [place] [address] PCP - General 12/07/22 School Principal Relationship Specialty Start Date End Date Imer Purcell MD [address] [facility] [place] [id number] PCP - General 12/07/22 Goals (unrecognized section and content) Goals may be documented in a n alternate section Scheduled Active and Recently Administ ered Medications (unrecognized section and content) Medication Order 03/21/2023 03/22/2023 03/23/2023 acetaminophen (Tylenol) tablet 975 mg 975 mg, oral, Every 8 hours, First dose on Tue03/21/23 at 1630, Phase II/On Unit, If ordered PRN for pain, nurse is permitted to administer this medication for higher pain scores based on patient preference? Yes 1718 (Given - Provider: Samina Chavira RN) 0019 (Given - Provider: Janett Galvan RN)0805 (Given - Provider: Beth Bronson RN)1536 (Given - Provider: Beth Bronson RN) 0038 (Given - Provider: Luzma Adhikari, MINDY)0739 (Given - Provider: Beth Bronson, MINDY)1630 (Due) amLODIPine (Norvasc) tablet 10 mg 10 mg, oral, Daily, First dose on Tue03/21/23 at 1630, Phase II/On Unit 1630 (Not Given - Provider: Samina Chavira RN - Reason: Other - Comment: taken prior to admit) 0805 (Given - Provider: Beth Bronson RN) 0920 (Given - Provider: Beth Bronson RN) atorvastatin (Lipitor) tablet 20 mg 20 mg, oral, Nightly, First dose on Tue03/21/23 at 2100, Phase II/On Unit 210 (Given - Provider: Janett Galvan RN) 203 (Given - Provider: Luzma Adhikari, MINDY) 2100 (Due) ceFAZolin in dextrose (iso-os) (Ancef) IVPB 2 g (CANCELED) 2 g, intravenous, Administer over 30 Minutes, Every 8 hours, First dose on Tue03/21/23 at 0700, Preprocedure, Administer within 60 minutes prior to incision. premix bag, Dosing of this medication varies based on severity of illness. Does this patient have sepsis or concern for sepsis (probable or documented infection plus systemic manifestations of infection)? No, Suspected Indication (Select all that apply): Surgical Prophylaxis 0700 (Due)0754 (Given - Provider: CLAIR Pickering)1200 (Given - Provider: CLAIR Pickering)1500 (Not Given - Provider: Samina Chavira RN - Reason: Other - Comment: duplicate) ceFAZolin in dextrose (iso-os) (Ancef) IVPB 2 g (COMPLETED) 2 g, intravenous, Administer over 30 Minutes, Every 8 hours, First dose on Tue03/21/23 at 1630, For 2 doses, Phase II/On Unit, Start 8 hours after pre-op dose given. premix bag, Dosing of this medication varies based on severity of illness. Does this patient have sepsis or concern for sepsis (probable or documented infection plus systemic manifestations of infection)? No, Suspected Indication (Select all that apply): Surgical Prophylaxis 0452 (New Bag - Provider: Janett Galvan RN)0522 (Stopped - Provider: Janett Galvan RN)1118 (New Bag - Provider: Beth Bronson RN)1148 (Due: Stopped - Provider: Beth Bronson RN) docusate sodium (Colace) capsule 100 mg 100 mg, oral, 2 times daily, First dose on Tue03/21/23 at 2100, Phase II/On Unit, Bowel Regimen - for prevention of constipation Hold for loose stools 2103 (Given - Provider: Janett Galvan RN) 0805 (Given - Provider: Beth Bronson RN)203 (Given - Provider: Luzma Adhikari RN) 0920 (Given - Provider: Beth Bronson RN)2100 (Due) donepezil (Aricept) tablet 5 mg 5 mg, oral, Daily, First dose on Tue03/21/23 at 1630, Phase II/On Unit 1630 (Not Given - Provider: Samina Chavira RN - Reason: Other) 0810 (Given - Provider: Beth Bronson RN) 0920 (Given - Provider: Beth Bronson RN) ferrous sulfate (325 mg ferrous sulfate) tablet 65 mg of iron 65 mg of iron, oral, Daily with breakfast, First dose on Tue03/22/23 at 0800, Phase II/On Unit 0805 (Given - Provider: Beth Bronson RN) 0740 (Given - Provider: Beth Bronson RN) hydroCHLOROthiazide (HYDRODiuril) tablet 25 mg 25 mg, oral, Daily, First dose on Tue03/21/23 at 1630, Phase II/On Unit 1630 (Not Given - Provider: Samina Chavira RN - Reason: Other - Comment: taken prior to arival) 0810 (Given - Provider: Beth Bronson RN) 0920 (Given - Provider: Beth Bronson RN) labetalol (Normodyne) tablet 100 mg 100 mg (1 tablet), oral, 2 times daily, First dose on Tue03/21/23 at 2100, Phase II/On Unit 2104 (Given - Provider: Janett Galvan RN) 0900 (Not Given - Provider: Beth Bronson RN - Reason: Medication not available)203 (Given - Provider: Luzma Adhikari RN) 0920 (Given - Provider: Beth Bronson RN)2100 (Due) losartan (Cozaar) tablet 50 mg 50 mg, oral, Daily, First dose on Tue03/21/23 at 1630, Phase II/On Unit 1630 (Not Given - Provider: Samina Chavira RN - Reason: Other - Comment: taken prior to admit) 0810 (Given - Provider: Beth Bronson RN) 0920 (Given - Provider: Beth Bronson RN) pantoprazole (ProtoNix) EC tablet 40 mg(Linked Group 1) 40 mg, oral, Daily before breakfast, First dose on Tue03/22/23 at 0700, Phase II/On Unit, Do not crush, chew, or split. 0644 (Given - Provider: Janett Galvan RN) 0617 (Given - Provider: Luzma Adhikari, MINDY) pantoprazole (ProtoNix) injection 40 mg(Linked Group 1) 40 mg, intravenous, Daily before breakfast, First dose on Tue03/22/23 at 0700, Phase II/On Unit, Give only if unable to tolerate po. Reconstitute with 10 mL sodium chloride 0.9% for injection. Push over 2 minutes. 0644 (See Alternative - Provider: Janett Galvan RN) 0617 (See Alternative - Provider: Luzma Adihkari RN) potassium chloride CR (Klor-Con) ER tablet 10 mEq 10 mEq, oral, Daily, First dose on Tue03/21/23 at 1630, Phase II/On Unit, Best given with food and a glass of water to minimize gastric irritation. Do not crush, chew, or split. 1630 (Not Given - Provider: Samina Chavira RN - Reason: Patient/family refused) 0811 (Given - Provider: Beth Bronson RN) 0920 (Given - Provider: Beth Bronson RN) venlafaxine (Effexor) tablet 75 mg 75 mg, oral, 3 times daily with meals, First dose on Tue03/21/23 at 1700, Phase II/On Unit 1700 (Not Given - Provider: Samina Chavira RN - Reason: Patient/family refused) 0805 (Given - Provider: Beth Bronson RN)1118 (Given - Provider: Beth Bronson RN)1721 (Given - Provider: Beth Bronson RN) 0739 (Given - Provider: Beth Bronson RN)1200 (Due)1700 (Due) Continuous Medication Order 03/21/2023 03/22/2023 03/23/2023 lactated Ringer's infusion 100 mL/hr, intravenous, Continuous, Starting on Tue03/21/23 at 0700 0719 (New Bag - Provider: Lexy Holly RN)0737 (Paused - Provider: CLAIR Pickering - Comment: Switch to gravity)0738 (New Bag - Provider: CLAIR Pickering)1251 (Stopped - Provider: CLAIR Pickering) lactated Ringer's infusion (CANCELED) 100 mL/hr, intravenous, Continuous, Starting on Tue03/21/23 at 1330, Recovery (only) 1330 (Continued from OR - Provider: Julissa Pagan RN)1609 (Stopped - Provider: Julissa Pagan RN) lactated Ringer's infusion 100 mL/hr, intravenous, Continuous, Starting on Tue03/21/23 at 1630, Phase II/On Unit, Convert IV to saline lock when taking oral fluids. 1717 (New Bag - Provider: Samina Chavira, RN) 0929 (Rate/Dose Verify - Provider: Beth Bronson, RN)1900 (Stopped - Provider: Luzma Adhikari RN) PRN Medication Order 03/21/2023 03/22/2023 03/23/2023 cyclobenzaprine (Flexeril) tablet 10 mg 10 mg, oral, 3 times daily PRN, muscle spasms, Starting on Tue03/21/23 at 1619, Phase II/On Unit, Indications: muscle spasm gentamicin (Garamycin) 80 mg in sodium chloride 0.9 % 1,000 mL irrigation (CANCELED) As needed, Starting on Tue03/21/23 at 0843, Intraprocedure 0843 (Given - Provider: Mireille Zurita MD - Comment: mixed in 1000cc normal saline) HYDROmorphone (Dilaudid) injection 0.5 mg (CANCELED) 0.5 mg, intravenous, Every 5 min PRN, pain severe (7-10), first line, Starting on Tue03/21/23 at 1322, Recovery (only), Max total of 4 mg regardless of dose. 1344 (Given - Provider: Julissa Pagan RN)1434 (Given - Provider: Julissa Pagan RN) lidocaine-epinephrine PF (Xylocaine W/EPI) 1 %-1:200,000 injection (CANCELED) As needed, Starting on Tue03/21/23 at 0833, Intraprocedure 0833 (Given - Provider: Mireille Zurita MD) methylPREDNISolone acetate (DEPO-Medrol) injection (CANCELED) As needed, Starting on Tue03/21/23 at 0844, Intraprocedure 0844 (Given - Provider: Mireille Zurita MD - Comment: mixed with morphine and surgifoam powder) morphine injection 2 mg 2 mg, intravenous, Every 2 hour PRN, pain breakthrough, use oral first and only use IV if oral is ineffective or cannot take oral. Use as first line if no PO med ordered., Starting on Tue03/21/23 at 1619, Phase II/On Unit morphine injection (CANCELED) As needed, Starting on Tue03/21/23 at 0846, Intraprocedure 0846 (Given - Provider: Mireille Zurita MD - Comment: mixed with depo-medrol 80mag and surgifoam) naloxone (Narcan) injection 0.2 mg 0.2 mg, intravenous, Every 5 min PRN, respiratory depression, Starting on Tue03/21/23 at 1619, Phase II/On Unit, If respiratory rate is less than 8 breaths/minute or patient is difficult to arouse stop any narcotics and contact physician. Administer slow IV push. Repeat as ordered until patient's respiratory rate is greater than 12 breaths/minute. ondansetron (Zofran) injection 4 mg(Linked Group 2) 4 mg, intravenous, Every 8 hours PRN, nausea/vomiting, first line, Starting on Tue03/21/23 at 1619, Phase II/On Unit, 1st Line. Give IV if patient is unable to take orally. If inadequate response within 60 minutes, proceed to next-line agent for same PRN reason or contact provider if no further options ordered. When administering via IV Push, administer over 3-5 minutes. 0740 (Given - Provider: Beth Bronson RN) ondansetron (Zofran) tablet 4 mg(Linked Group 2) 4 mg, oral, Every 8 hours PRN, nausea/vomiting, first line, Starting on Tue03/21/23 at 1619, Phase II/On Unit, 1st Line. Use oral route first, if possible. If inadequate response within 60 minutes, proceed to next-line agent for same PRN reason or contact provider if no further options ordered. 0740 (See Alternativ e - Provider: Beth Bronson RN) oxyCODONE (Roxicodone) immediate release tablet 10 mg 10 mg, oral, Every 4 hours PRN, pain severe (7-10), first line, Starting on Tue03/21/23 at 1619, Phase II/On Unit, If ordered PRN for pain, nurse is permitted to administer this medication for higher pain scores based on patient preference? Yes 0620 (Given - Provider: Luzma Adhikari, MINDY) oxyCODONE (Roxicodone) immediate release tablet 5 mg 5 mg, oral, Every 4 hours PRN, pain moderate (4-6), first line, Starting on Tue03/21/23 at 1619, Phase II/On Unit, If ordered PRN for pain, nurse is permitted to administer this medication for higher pain scores based on patient preference? Yes 2150 (Given - Provider: Janett Galvan RN) 1119 (Given - Provider: Beth Bronson RN)2038 (Given - Provider: Luzma Adhikari, MINDY) oxygen (O2) therapy inhalation, Continuous PRN - O2/gases, other, Starting on Tue03/21/23 at 1639, Device: Non-Invasive Ventilation, Rate in liters per minute: Other, Custom Value: 21, FIO2: 21, Keep O2 Sat Above: 92% sodium chloride 0.9 % irrigation solution (CANCELED) As needed, Starting on Tue03/21/23 at 0845, Intraprocedure 0845 (Given - Provider: Mireille Zurita MD - Comment: mixed with 80 mg gentamycin) thrombin solution (CANCELED) As needed, Starting on Tue03/21/23 at 0845, Intraprocedure 0845 (Given - Provider: Mireille Zurita MD - Comment: mixed with surgifoam) Linked Groups Order Group 1: pantoprazole (ProtoNix) EC tablet 40 mgJump to med 40 mg, oral, Daily before breakfast, First dose on Tue03/22/23 at 0700, Phase II/On Unit
Do not crush, chew, or split.
Or pantoprazole (ProtoNix) injection 40 mgJump to med 40 mg, intravenous, Daily before breakfast, First dose on Tue03/22/23 at 0700, Phase II/On Unit
Give only if unable to tolerate po. Reconstitute with 10 mL sodium chloride 0.9% for injection. Push over 2 minutes.
Group 2: ondansetron (Zofran) tablet 4 mgJump to med 4 mg, oral, Every 8 hours PRN, nausea/vomiting, first line, Starting on Tue03/21/23 at 1619, Phase II/On Unit
1st Line. Use oral route first, if possible. If inadequate response within 60 minutes, proceed to next-line agent for same PRN reason or contact provider if no further options ordered.
Or ondansetron (Zofran) injection 4 mgJump to med 4 mg, intravenous, Every 8 hours PRN, nausea/vomiting, first line, Starting on Tue03/21/23 at 1619, Phase II/On Unit
1st Line. Give IV if patient is unable to take orally. If inadequate response within 60 minutes, proceed to next-line agent for same PRN reason or contact provider if no further options ordered. When administering via IV Push, administer over 3-5 minutes.
FOR RECORDS PERTAINING TO PATIENTS WHO ARE OR HAVE BEEN ENROLLED IN A CHEMICAL DEPENDENCY/SUBSTANCEABUSE PROGRAM, SOME INFORMATION MAY BE OMITTED. This clinical summary was aggregated from multiple sources. Caution should be exercised in using it in the provision of clinical care. This summary normalizes information from multiple sources, and as a consequence, information in this document may materially change the coding, format and clinical context of patient data. In addition, data may be omitted in some cases. CLINICAL DECISIONS SHOULD BE BASED ON THE PRIMARY CLINICAL RECORDS. [employer] provides no warranty or guarantee of the accuracy or completeness of information in this document.
[2023-08-11 06:35] VITALS: BP 136/63; PULSE 67; TEMP 36.5; O2SAT 94
[2023-08-11] MEDS: TROPICAMIDE 1% OP SOL 300 DROP/15 ML BOTTLE EYE-RIGHT ×4 (06:44→07:15)
[2023-08-11] MEDS: PHENYLEPHRINE HCL 2.5% OP SOL 40 DROP/2 ML BOTTLE EYE-RIGHT ×4 (06:44→07:15)
[2023-08-11] MEDS: BESIFLOXACIN HCL 100 DROP DROPS.SUSP OP ×4 (06:45→07:14)
[2023-08-11 07:32] VITALS: BP 143/75; PULSE 64; O2SAT 95
[2023-08-11 07:34] VITALS: BP 118/94; PULSE 62; O2SAT 95
[2023-08-11] MEDS: APRACLONIDINE HCL 100 DROP/5 ML BOTTLE EYE-RIGHT (07:37)
[2023-08-11] MEDS: HYALURONATE SODIUM 16 MG/ML SYRINGE OP (07:37)
[2023-08-11] MEDS: LIDOCAINE 2% JELLY 10 ML TOPICAL (07:38)
[2023-08-11] MEDS: LIDOCAINE HCL 1% PF 20 MG/2 ML VIAL INJ (07:38)
[2023-08-11] MEDS: PHENYLEPHRINE/KETOROLAC 1-0.3% ML VIAL 4 ML IRR (07:38)
[2023-08-11] MEDS: PREDNISOLONE ACETATE OP 1% SUSP 100 DROPS/5 ML 1 DROP EYE-RIGHT (07:39)
[2023-08-11] MEDS: PROPARACAINE HCL 0.5% 300 DROP/15 ML BOTTLE EYE-RIGHT (07:39)
[2023-08-11] MEDS: BETADINE POVIDONE-IODINE 5% OP SOL 30 ML BOTTLE EYE-RIGHT (07:39)
[2023-08-11] MEDS: TETRACAINE HCL 0.5% OP SOL 80 DROP/4 ML BOTTLE EYE-RIGHT (07:39)
[2023-08-11] MEDS: CEFUROXIME SODIUM 750 MG, 0.9 % SODIUM CHLORIDE 16.3 ML OP (07:40)
== END 2023-08-11 08:10 | disposition home or self-care (01) ==
LOC: SURGOUT 06:22
PROVIDERS: PCP Family Medicine; Visit Provider Ophthalmology
PROC: (CPT 66984; principal; 2023-08-11 07:30)
DX: H25.11 Age-related nuclear cataract, right eye (principal); E78.00 Pure hypercholesterolemia, unspecified; I10 Essential (primary) hypertension; Z79.899 Other long term (current) drug therapy
CPT/HCPCS: 66984; V2630

== ENCOUNTER 2023-09-05 13:16 | Outpatient (OUT) | payer MEDICARE, SELFPAY | END 2023-09-05 13:17 | disposition home or self-care (01) | LOC: PST 13:16 | PROVIDERS: PCP Family Medicine; Visit Provider Ophthalmology | DX: Z01.818 Encounter for other preprocedural examination (principal); H25.812 Combined forms of age-related cataract, left eye ==

== ENCOUNTER 2023-09-08 06:15 | Day surgery (SDC) | payer MEDICARE, SELFPAY ==
--- NOTE | 2023-09-08 | OP_ITS ---
OPERATION DATE: 09/08/2023 SURGEON: Aries Zuleta M.D. PREOPERATIVE DIAGNOSIS: Nuclear sclerotic cataract left eye. POSTOPERATIVE DIAGNOSIS: Nuclear sclerotic cataract left eye. PROCEDURE NAME: Cataract extraction with intraocular lens placement for the left eye. ANESTHESIA: Topical ESTIMATED BLOOD LOSS: Zero. COMPLICATIONS: None. PROCEDURE: In the preoperative holding area, patient received topical proparacaine and then sat up in an upright position. A philippe was placed at the 6 o?clock limbus of the left eye for future reference for the Toric lens. The patient was then brought to the Operating Room in supine position. After proper identification, the left eye was prepped and draped in a sterile ophthalmic fashion. A paracentesis was created at the 5 o'clock position. Approximately 1 cc of unpreserved Xylocaine was injected into the anterior chamber followed by Amvisc Plus. Using a 2.6 mm Keratome blade, a clear corneal incision was created at the 2 o'clock limbus. A cystotome was then used to begin a curvilinear capsulorrhexis that was continued for 360 degrees with the Utrata forceps. BSS on a 26 gauge cannula was injected beneath the anterior capsule to hydrodissect as well as hydrodelineate the lens. After ensuring mobility, phacoemulsification was performed in a [id number]-type fashion. After all nuclear material had been removed from the eye, IA was introduced and all residual cortical material was cleaned up. Additional Amvisc Plus was injected into the posterior bag to further inflate and pressurize the anterior chamber. The anterior surface of the eye was then marked at the 168 degree axis. This was found with a [employer] Toric Marking System, referencing the 6 o?clock limbal philippe that was created preoperatively. Lens model SA6AT5, 21.0 diopters was injected and dialed approximately 10 degrees shy of the 168 degree philippe that was placed on surface of the eye. IA was reintroduced into the anterior chamber and all residual Amvisc Plus was removed from the eye. Using the tip of the IA, the lens was rotated the final 10 degrees to the 168 degree axis. BSS on a 30 gauge cannula was injected into the stroma of both the clear corneal incision as well as the paracentesis to hydrate the wounds. Additional BSS was injected into the anterior chamber to pressurize the eye at approximately 20 to 22 mmHg by finger tension. 0.1 cc of antibiotic was injected into the anterior chamber and Weck- Dayanna sponges were used to check the wounds to be watertight. One drop of Apraclonidine and one drop of prednisolone acetate were placed into the eye and a shield was placed over top. The patient was then sent to the postoperative area in satisfactory condition to follow up the following day for postoperative care. PAMELA
--- NOTE | 2023-09-08 06:15 | HP_ITS ---
PREOPERATIVE HISTORY AND PHYSICAL Date:? 09/07/2023 HISTORY:? The patient is a 72-year-old white female with complaints of declining vision out of her left eye.? Gradual onset of this has occurred over the last two years.? She states having difficulty with distance as well as near.? Objects such as road signs and the television are harder to read.? She also states at night time, while driving, she is having difficulty because of headlights creating glare range of motion oncoming traffic. PAST OCULAR HISTORY / PAST MEDICAL HISTORY / SOCIAL HISTORY / MEDICATIONS / ALLERGIES TO MEDICATIONS / REVIEW OF SYSTEMS / PHYSICAL EXAMINATION:? Unchanged from previously dictated. ASSESSMENT AND PLAN:? Visually significant cataract, left eye.? After the risks, benefits, and alternatives as well as expectations were delivered to the patient, she elected to go forward with cataract removal.? She understands those risks to include but not limited to infection, bleeding, loss of vision or loss of the eye itself.? Secondly, she understands that postoperatively she is likely to require spectacle correction for her best visual acuity.? Finally, a complete ophthalmic exam was performed and there was not determined to be any other source of vision decline other than that of cataract.? After understanding all risks as well as expectations, she elected to go forward with the procedures as listed above and will be doing so in the near future. PMAELA
--- OUTSIDE RECORDS SUMMARY | 2023-09-08 06:19 | XMS_ITS | CCD ---
Author Organization [facility] Care Team Providers Care Machine Maintenance Repairer Name Role Phone PHYSICIAN, DEFAULT Unavailable Unavailable PHYSICIAN, DEFAULT Unavailable Unavailable YODER, MUJEEB A Unavailable Unavailable YODER, MUJEEB A Unavailable Unavailable SAMUEL SANCHEZ Unavailable Unavailable IMER PURCELL Unavailable Unavailable Monika Guerrero Primary Care Provider Darlene Barbosaul Unavailable Jorge Ramirez Unavailable Imer Purcell MD Primary Care Provider [phone] Keagan Chadwick Unavailable MD Imer Purcell Primary Care Provider [phone] MD Imer Purcell Attending Provider Ziyad Ngo Unavailable MD Imer Purcell Primary Care Provider [phone] MD Imer Purcell Attending Provider [phone] Adan Gonzalez Attending Provider MD Jorge Ramirez Attending Provider [phone] Imer Purcell MD Primary Care Provider [phone] MONIKA GUERRERO Primary Care Unavaila ble MENDEZ, TOMS Referring Unavailable MONIKA GUERRERO Primary Care Unavaila ble MENDEZ, TOMS Referring Unavailable MONIKA GUERRERO Primary Care Unavaila ble MENDEZ, TOMS Attending Unavailable MENDEZ, TOMS Referring Unavailable FREDA POP Attending Unavailable MENDEZ, TOMS Referring Unavailable IMER PURCELL Primary Care Unavailable FREDA POP Attending Unavailable MENDEZ, TOMS Referring Unavailable IMER PURCELL Primary Care Unavailable MENDEZ, TOMS Referring Unavailable HOY, IMER M Primary Care Unavailable FREDA POP Attending Unavailable ATIF MENDEZ Referring Unavailable HOY, IMER M Primary Care Unavailable ATIF MENDEZ Attending Unavailable DOROTHY SPARROW Referring Unavailable IMER PURCELL M Primary Care Unavailable BINH, IMER M Primary Care Unavailable FREDA POP Referring Unavailable MD Imer Purcell Primary Care Provider [phone] ARI Pop Attending Provider MD Imer Purcell Primary Care Provider [phone] ARI Pop Attending Provider ANTHONY Friedman Attending Provider [phone] MD Imer Purcell Attending Provider [phone] ., DR WILLAMS Consulting Unavailable HOY [...] Unavailable Hoy, Imer M Primary Care Unavailable Agus, Mireille Patel Admitting Unavailable Hoy, Imer M Primary Care Unavailable Hoy, Imer M Attending Unavailable Hoy, Imer M Admitting Unavailable Lisa Adan Admitting Unavailable Adan Gonzalez Attending Unavailable Hoy, Imer M Primary Care Unavailable Freda Pop Admitting Unavailable Freda Pop Attending Unavailable Hoy, Imer M Primary Care Unavailable Imer Purcell MD Primary Care Provider [phone] MIREILLE ZURITA Attending Unavailable Adan Gonzalez Referring [...] PURCELL DON Primary Care Unavailable MIREILLE ZURITA S Attending Unavailable IMER PURCELL DON Primary Care Unavailable IMER PURCELL Primary Care Unavailable MIREILLE ZURITA Admitting Unavailable MIREILLE ZURITA Attending Unavailable IMER Velásquez DON Primary Care Unavailable FERNANDO FRAZIER Consulting Unavaila COLLIN Neil Consulting Unavailable ROBERT MACK Unavailable MIREILLE ZURITA Referring Unavailable IMER PURCELL Primary Care Unavailable MIREILLE ZURITA Referring Unavailable IMER Velásquez DON Primary Care Unavailable Allergies Allergy Classification Reported Allergen(s) Allergy Type Date of Onset Reaction(s) Facility (2 sources) No Known Allergies; Translations: [No Known Allergies] Propensity to adverse reactions (disorder) 7 [facility] Repository Medications Current Medications Medication Drug Class(es) [...] oral, 2 times daily, First dose on 03/21/23 at 2100, Phase II/On Unit Bowel Regimen [...] Comment on above: Take 1 tablet by meghana th every 6 hours as needed for [...] mouth once daily. Take 1 capsule by [facility] once daily. metoprolol tartrate 25 mg oral [...] 01-26-20 Chronic Other aftercare (2 sources) Other long-term (current) drug therapy; Translations: [Long-term (current) use of other medications] Onset: 05-07-20 Episodic Other connective tissue disease (3 sources) History of cervical spine fusion; Translations: [Arthrodesis status] Onset: 06-16-19 24 03-23-2023 Episodic Other gastrointestinal disorders (1 source) Drug-induced [...] Translations: [Obstructive sleep apnea (adult) (pediatric)] Onset: 03-12-20 23 11-03-2021 Chronic Residual codes; unclassified (1 source) Sleep apnea, unspecified; Translations: [SLEEP APNEA UNSPECIFIED] Onset: 01-28-20 Chronic Residual codes; unclassified (7 sources) Transfusion of blood product refused for jainism reason; Translations: [Procedure and treatment not carried [...] Onset: 01-12-2017 Episodic Other aftercare (1 source) longterm (current) use of aspirin; Translations: [SHOE STAMPER (CURRENT) USE OF ASPIRIN] Onset: 01-12-2017 Episodic [...] [Refusal of blood transfusions as patient is Pentecostalism] Onset: 11-03-2021 Episodic Residual codes; unclassified (1 [...] Raul Peter 06/10/2023 6:21 PM Dictation workstation: [id number] [facility] MMODAL Interpreted By: Raul Hernandes, STUDY: XR CERVICAL SPINE 2-3 VIEWS; ; 06/09/2023 2:35 pm INDICATION: Signs/Symptoms:To assess the fusion. COMPARISON: 05/05/2023 ACCESSION NUMBER(S): [id number] ORDERING CLINICIAN: MIREILLE ZURITA FINDINGS: C-spine, two [...] assess the fusion. COMPARISON: 05/05/2023 ACCESSION NUMBER(S): [id number] ORDERING CLINICIAN: MIREILLE ZURITA FINDINGS: C-spine, two views Anterior fusion C3 through C7. The hardware is intact. The prevertebral soft tissues are within normal limits. There is no fracture or spondylolisthesis. There is mild spondylotic change at C7-T1 IMPRESSION: No hardware failure at the C3-C7 anterior fusion. Mild spondylosis at C7-T1 MACRO: None Signed by: Raul Peter 06/10/2023 6:21 PM Dictation workstation: [id number] [facility] Work Phone: XR Cervical spine 2 or 3 Vie wsOrdered By: Raul Peter on 06-10-2023 [facility] Work Phone: XR CERVICAL SPINE 2-3 VIEWSo n 06-09-2023 XR CERVICAL SPINE 2-3 VIEWS Interpreted By: Raul Peter, STUDY: XR CERVICAL SPINE 2-3 VIEWS; ; 06/09/2023 2:35 pm INDICATION: Signs/Symptoms:To assess the fusion. COMPARISON: 05/05/2023 ACCESSION NUMBER(S): [id number] ORDERING CLINICIAN: MIREILLE ZURIAT FINDINGS: C-spine, two views Anterior fusion C3 through C7. The hardware is intact. The prevertebral soft tissues are within normal limits. There is no fracture or spondylolisthesis. There is mild spondylotic change at C7-T1 IMPRESSION: No hardware failure at the C3-C7 anterior fusion. Mild spondylosis at C7-T1 MACRO: None Signed by: Raul Peter 06/10/2023 6:21 PM Dictation workstation: [id number] [facility] XR Cervical spine 2 or 3 Vie wson 06-09-2023 Radiology Study observation (narrative) [facility] Work Phone: XR CERVICAL SPINE 2-3 VIEWSo n 05-05-2023 XR CERVICAL SPINE 2-3 VIEWS Interpreted By: Juan Jose Sen, STUDY: XR CERVICAL SPINE 2-3 VIEWS INDICATION: Signs/Symptoms:s/p ACDF C3 - 7 on 03/21/2023. XRAY ON OR AFTER MAY 05, 2023, for appointment 05/12/2023. COMPARISON: March 22 ACCESSION NUMBER(S): [id number] ORDERING CLINICIAN: ARASELI CHAIM FINDINGS: Anterior cervical fusion C3 through C7 with plate and disc space replacement. Alignment normal. Prevertebral soft tissues improving. IMPRESSION: Satisfactory appearance C3 through C7 anterior fusion. Signed by: Juan Jose Sen 05/07/2023 7:02 AM Dictation workstation: [id number] [facility] ECG 12 LeadOrdered By: Camilo Parr on 03-28-2023 Atrial Rate 63 BPM [facility] Work Phone: P Olmitz 51 degrees [facility] Work Phone: [phone] P Offset 183 ms [facility] Work Phone: [phone] P Onset 128 ms [facility] Work Phone: [phone] AZ Interval 192 ms [facility] Work Phone: [phone] Q Onset 224 ms [facility] Work Phone: [phone] QRS Count 10 beats [facility] Work Phone: [phone] QRS Duration 84 ms [facility] Work Phone: [phone] QT Interval 406 ms [facility] Work Phone: [phone] QTC Calculation(Bazet t) 415 ms [facility] Work Phone: [phone] QTC Fredericia 412 ms [facility] Work Phone: [phone] R Olmitz 52 degrees [facility] Work Phone: [phone] T Olmitz 44 degrees [facility] Work Phone: [phone] T Offset 427 ms [facility] Work Phone: [phone] Ventricular Rate 63 BPM [facility] Work Phone: [phone] [facility] Work Phone: [phone] ECG 12 Leadon 03-28-2023 Normal sinus rhythm Normal ECG No previous ECGs available Confirmed by Camilo Parr ([id number]) on 03/28/2023 9:17:27 PM MUSE Camilo Parr MD - Normal sinus rhythm Normal ECG No previous ECGs available Confirmed by Camilo Parr ([id number]) on 03/28/2023 9:17:27 PM [facility] Work Phone: Basic metabolic 2000 panelon 03-23-2023 Anion gap [Moles/Vol] 13 mmol/L Normal 10-20 [facility] Comment on above: Performed By: #### 3 4529-8 #### MADELEINE ROSE ([id number]) [facility] ([facility]) [address] [place] [address] Calcium [Mass/Vol] 8.7 mg/dL Normal 8.6-10.3 [facility] Comment on above: Performed By: #### 3 4529-8 #### MADELEINE ROSE ([id number]) [facility] ([facility]) [address] [place] [address] Chloride [Moles/Vol] 101 mmol/L Normal 98-107 [facility] Comment on above: Performed By: #### 3 4529-8 #### MADELEINE ROSE ([id number]) [facility] ([facility]) [address] [place] [address] CO2 [Moles/Vol] 26 mmol/L Normal 21-32 [facility] Comment on above: Performed By: #### 3 4529-8 #### MADELEINE ROSE ([id number]) [facility] ([facility]) [address] [place] [address] Creatinine [Mass/Vol] 0.90 mg/dL Normal 0.50-1.05 [facility] Comment on above: Performed By: #### 3 4529-8 #### MADELEINE ROSE ([id number]) [facility] ([facility]) [address] [place] [address] GFR/1.73 sq M.predicted MDRD (S/P/Bld) [Vol rate/Area] 69 mL/min/1.73m*2 Normal >60 [facility] Comment on above: Result Comment: Calc ulations of estimated GFR are performed using the 2020 CKD-EPI Study Refit equation without the race variable for the IDMS-Traceable creatinine methods. https://jasn.asnjournals.org/content//ASN.3527150320 Performed By: #### 3 4529-8 #### MADELEINE ROSE ([id number]) [facility] ([facility]) [address] [place] [address] Glucose [Mass/Vol] 97 mg/dL Normal 74-99 [facility] Comment on above: Performed By: #### 3 4529-8 #### MADELEINE ROSE ([id number]) [facility] ([facility]) [address] [place] [address] Potassium [Moles/Vol] 3.7 mmol/L Normal 3.5-5.3 [facility] Comment on above: Performed By: #### 3 4529-8 #### MADELEINE ROSE ([id number]) [facility] ([facility]) [address] [place] [address] Sodium [Moles/Vol] 136 mmol/L Normal 136-145 [facility] Comment on above: Performed By: #### 3 4529-8 #### MADELEINE ROSE ([id number]) [facility] ([facility]) [address] [place] [address] Urea nitrogen [Mass/Vol] 11 mg/dL Normal 6-23 [facility] Comment on above: Performed By: #### 3 4529-8 #### MADELEINE ROSE ([id number]) [facility] ([facility]) [address] [place] [address] Anion gap [Moles/Vol] 13 mmol/L 10 - 20 mmol/L [facility] Calcium [Mass/Vol] 8.7 mg/dL 8.6 - 10.3 mg/dL [facility] Chloride [Moles/Vol] 101 mmol/L 98 - 107 mmol/L [facility] CO2 [Moles/Vol] 26 mmol/L 21 - 32 mmol/L [facility] Creatinine [Mass/Vol] 0.90 mg/dL 0.50 - 1.05 mg/dL [facility] GFR/1.73 sq M.predicted MDRD (S/P/Bld) [Vol rate/Area] 69 mL/min/{1.73_m2} - PINF [facility] Comment on above: Calculations of gabriela mated GFR are performed using the 2020 CKD-EPI Study Refit equation without the race variable for the IDMS-Traceable creatinine methods. https://jasn.asnjournals.org/content//ASN.2144792010 Glucose [Mass/Vol] 97 mg/dL 74 - 99 mg/dL [facility] Interpretation and review of laboratory results Normal [facility] Potassium [Moles/Vol] 3.7 mmol/L 3.5 - 5.3 mmol/L [facility] Sodium [Moles/Vol] 136 mmol/L 136 - 145 mmol/L [facility] Urea nitrogen [Mass/Vol] 11 mg/dL 6 - 23 mg/dL [facility] CBC panel Auto (Bld)on 03-23 Erythrocyte distribution width (RBC) [Ratio] 13.4 % Normal 11.5-14.5 [facility] Comment on above: Performed By: #### 3 4529-8 #### MADELEINE ROSE ([id number]) [facility] ([facility]) [address] [place] [address] Hematocrit (Bld) [Volume fraction] 35.3 % Low 36.0-46.0 [facility] Comment on above: Performed By: #### 3 4529-8 #### MADELEINE ROSE ([id number]) [facility] ([facility]) [address] [place] [address] Hemoglobin (Bld) [Mass/Vol] 11.4 g/dL Low 12.0-16.0 [facility] Comment on above: Performed By: #### 3 4529-8 #### MADELEINE ROSE ([id number]) [facility] ([facility]) [address] [place] [address] MCH (RBC) [Entitic mass] 30.4 pg Normal 26.0-34.0 [facility] Comment on above: Performed By: #### 3 4529-8 #### MADELEINE ROSE ([id number]) [facility] ([facility]) [address] [place] [address] MCHC (RBC) [Mass/Vol] 32.3 g/dL Normal 32.0-36.0 [facility] Comment on above: Performed By: #### 3 4529-8 #### MADELEINE ROSE ([id number]) [facility] ([facility]) [address] [place] [address] MCV (RBC) [Entitic vol] 94 fL Normal 80-100 [facility] Comment on above: Performed By: #### 3 4529-8 #### MADELEINE ROSE ([id number]) [facility] ([facility]) [address] [place] [address] Nucleated RBC/100 WBC (Bld) [Ratio] 0.0 /100 WBCs Normal 0.0-0.0 [facility] Comment on above: Performed By: #### 3 4529-8 #### MADELEINE ROSE ([id number]) [facility] ([facility]) [address] [place] [address] Platelets (Bld) [#/Vol] 310 x10*3/uL Normal 150-450 [facility] Comment on above: Performed By: #### 3 4529-8 #### MADELEINE ROSE ([id number]) [facility] ([facility]) [address] [place] [address] RBC (Bld) [#/Vol] 3.75 x10*6/uL Low 4.00-5.20 [facility] Comment on above: Performed By: #### 3 4529-8 #### MADELEINE ROSE ([id number]) [facility] ([facility]) [address] [place] [address] WBC (Bld) [#/Vol] 9.9 x10*3/uL Normal 4.4-11.3 [facility] Comment on above: Performed By: #### 3 4529-8 #### MADELEINE ROSE ([id number]) [facility] ([facility]) [address] [place] [address] Erythrocyte distribution width (RBC) [Ratio] 13.4 % 11.5 - 14.5 % [facility] Hematocrit (Bld) [Volume fraction] 35.3 % Low 36.0 - 46.0 % [facility] Hemoglobin (Bld) [Mass/Vol] 11.4 g/dL Low 12.0 - 16.0 g/dL [facility] Interpretation and review of laboratory results Abnormal [facility] MCH (RBC) [Entitic mass] 30.4 pg 26.0 - 34.0 pg [facility] MCHC (RBC) [Mass/Vol] 32.3 g/dL 32.0 - 36.0 g/dL [facility] MCV (RBC) [Entitic vol] 94 fL 80 - 100 fL [facility] Nucleated RBC/100 WBC (Bld) [Ratio] 0.0 % [facility] Platelets (Bld) [#/Vol] 310 10*3/uL [facility] RBC (Bld) [#/Vol] 3.75 10*6/uL Low [facility] WBC (Bld) [#/Vol] 9.9 10*3/uL [facility] Basic metabolic 2000 panelon 03-22-2023 Anion gap [Moles/Vol] 11 mmol/L Normal 10-20 [facility] Comment on above: Performed By: #### 2 4321-2 #### MADELEINE ROSE ([id number]) [facility] ([facility]) [address] [place] [address] Calcium [Mass/Vol] 8.8 mg/dL Normal 8.6-10.3 [facility] Comment on above: Performed By: #### 2 4321-2 #### MADELEINE ROSE ([id number]) [facility] ([facility]) [address] [place] [address] Chloride [Moles/Vol] 102 mmol/L Normal 98-107 [facility] Comment on above: Performed By: #### 2 4321-2 #### MADELEINE ROSE ([id number]) [facility] ([facility]) [address] [place] [address] CO2 [Moles/Vol] 26 mmol/L Normal 21-32 [facility] Comment on above: Performed By: #### 2 4321-2 #### MADELEINE ROSE ([id number]) [facility] ([facility]) [address] [place] [address] Creatinine [Mass/Vol] 0.83 mg/dL Normal 0.50-1.05 [facility] Comment on above: Performed By: #### 2 4321-2 #### MADELEINE ROSE ([id number]) [facility] ([facility]) [address] [place] [address] GFR/1.73 sq M.predicted MDRD (S/P/Bld) [Vol rate/Area] 76 mL/min/1.73m*2 Normal >60 [facility] Comment on above: Result Comment: Calc ulations of estimated GFR are performed using the 2020 CKD-EPI Study Refit equation without the race variable for the IDMS-Traceable creatinine methods. https://jasn.asnjournals.org/content/early//ASN.8652429754 Performed By: #### 2 4321-2 #### MADELEINE ROSE ([id number]) [facility] ([facility]) [address] [place] [address] Glucose [Mass/Vol] 109 mg/dL High 74-99 [facility] Comment on above: Performed By: #### 2 4321-2 #### MADELEINE ROSE ([id number]) [facility] ([facility]) [address] [place] [address] Potassium [Moles/Vol] 3.9 mmol/L Normal 3.5-5.3 [facility] Comment on above: Performed By: #### 2 4321-2 #### MADELEINE ROSE ([id number]) [facility] ([facility]) [address] [place] [address] Sodium [Moles/Vol] 135 mmol/L Low 136-145 [facility] Comment on above: Performed By: #### 2 4321-2 #### MADELEINE ROSE ([id number]) [facility] ([facility]) [address] [place] [address] Urea nitrogen [Mass/Vol] 11 mg/dL Normal 6-23 [facility] Comment on above: Performed By: #### 2 4321-2 #### MADELEINE ROSE ([id number]) [facility] ([facility]) [address] [place] [address] Anion gap [Moles/Vol] 11 mmol/L 10 - 20 mmol/L [facility] Calcium [Mass/Vol] 8.8 mg/dL 8.6 - 10.3 mg/dL [facility] Chloride [Moles/Vol] 102 mmol/L 98 - 107 mmol/L [facility] CO2 [Moles/Vol] 26 mmol/L 21 - 32 mmol/L [facility] Creatinine [Mass/Vol] 0.83 mg/dL 0.50 - 1.05 mg/dL [facility] GFR/1.73 sq M.predicted MDRD (S/P/Bld) [Vol rate/Area] 76 mL/min/{1.73_m2} - PINF [facility] Comment on above: Calculations of gabriela mated GFR are performed using the 2020 CKD-EPI Study Refit equation without the race variable for the IDMS-Traceable creatinine methods. https://jasn.asnjournals.org/content//ASN.1089008705 Glucose [Mass/Vol] 109 mg/dL High 74 - 99 mg/dL [facility] Interpretation and review of laboratory results Abnormal [facility] Potassium [Moles/Vol] 3.9 mmol/L 3.5 - 5.3 mmol/L [facility] Sodium [Moles/Vol] 135 mmol/L Low 136 - 145 mmol/L [facility] Urea nitrogen [Mass/Vol] 11 mg/dL 6 - 23 mg/dL [facility] CBC panel Auto (Bld)on 03-22 Erythrocyte distribution width (RBC) [Ratio] 13.5 % Normal 11.5-14.5 [facility] Comment on above: Performed By: #### 5 8410-2 #### MADELEINE ROSE ([id number]) [facility] ([facility]) [address] [place] [address] Hematocrit (Bld) [Volume fraction] 36.7 % Normal 36.0-46.0 [facility] Comment on above: Performed By: #### 5 8410-2 #### MADELEINE ROSE ([id number]) [facility] ([facility]) [address] [place] [address] Hemoglobin (Bld) [Mass/Vol] 11.6 g/dL Low 12.0-16.0 [facility] Comment on above: Performed By: #### 5 8410-2 #### MADELEINE ROSE ([id number]) [facility] ([facility]) [address] [place] [address] MCH (RBC) [Entitic mass] 30.2 pg Normal 26.0-34.0 [facility] Comment on above: Performed By: #### 5 8410-2 #### MADELEINE ROSE ([id number]) [facility] ([facility]) [address] [place] [address] MCHC (RBC) [Mass/Vol] 31.6 g/dL Low 32.0-36.0 [facility] Comment on above: Performed By: #### 5 8410-2 #### MADELEINE ROSE ([id number]) [facility] ([facility]) [address] [place] [address] MCV (RBC) [Entitic vol] 96 fL Normal 80-100 [facility] Comment on above: Performed By: #### 5 8410-2 #### MADELEINE ROSE ([id number]) [facility] ([facility]) [address] [place] [address] Nucleated RBC/100 WBC (Bld) [Ratio] 0.0 /100 WBCs Normal 0.0-0.0 [facility] Comment on above: Performed By: #### 5 8410-2 #### MADELEINE ROSE ([id number]) [facility] ([facility]) [address] [place] [address] Platelets (Bld) [#/Vol] 330 x10*3/uL Normal 150-450 [facility] Comment on above: Performed By: #### 5 8410-2 #### MADELEINE ROSE ([id number]) [facility] ([facility]) [address] [place] [address] RBC (Bld) [#/Vol] 3.84 x10*6/uL Low 4.00-5.20 [facility] Comment on above: Performed By: #### 5 8410-2 #### MADELEINE ROSE ([id number]) [facility] ([facility]) [address] [place] [address] WBC (Bld) [#/Vol] 12.1 x10*3/uL High 4.4-11.3 [facility] Comment on above: Performed By: #### 5 8410-2 #### MADELEINE ROSE ([id number]) [facility] ([facility]) [address] [place] [address] Erythrocyte distribution width (RBC) [Ratio] 13.5 % 11.5 - 14.5 % [facility] Hematocrit (Bld) [Volume fraction] 36.7 % 36.0 - 46.0 % [facility] Hemoglobin (Bld) [Mass/Vol] 11.6 g/dL Low 12.0 - 16.0 g/dL [facility] Interpretation and review of laboratory results Abnormal [facility] MCH (RBC) [Entitic mass] 30.2 pg 26.0 - 34.0 pg [facility] MCHC (RBC) [Mass/Vol] 31.6 g/dL Low 32.0 - 36.0 g/dL [facility] MCV (RBC) [Entitic vol] 96 fL 80 - 100 fL [facility] Nucleated RBC/100 WBC (Bld) [Ratio] 0.0 % [facility] Platelets (Bld) [#/Vol] 330 10*3/uL [facility] RBC (Bld) [#/Vol] 3.84 10*6/uL Low [facility] WBC (Bld) [#/Vol] 12.1 10*3/uL [facility] XR CERVICAL SPINE 2-3 VIEWSo n 03-22-2023 XR CERVICAL SPINE 2-3 VIEWS Interpreted By: Juwan Petit, STUDY: XR CERVICAL SPINE 2-3 VIEWS; ; 03/22/2023 6:16 am INDICATION: Signs/Symptoms:post op evaluation. COMPARISON: 03/21/2023 at 12:31 p.m. ACCESSION NUMBER(S): [id number] ORDERING CLINICIAN: MARY PATRICK FINDINGS: Two view [...] Juwan Petit 03/22/2023 9:24 AM Dictation workstation: [id number] [facility] XR Cervical spine 2 or 3 [...] Juwan Petit 03/22/2023 9:24 AM Dictation workstation: [id number] MMODAL Interpreted By: Juwan Rhoades, STUDY: XR CERVICAL SPINE 2-3 VIEWS; ; 03/22/2023 6:16 am INDICATION: Signs/Symptoms:post op evaluation. COMPARISON: 03/21/2023 at 12:31 p.m. ACCESSION NUMBER(S): [id number] ORDERING CLINICIAN: MARY SHELL FINDINGS: Two view [...] COMPARISON: 03/21/2023 at 12:31 p.m. ACCESSION NUMBER(S): [id number] ORDERING CLINICIAN: MARY SHELL FINDINGS: Two view [...] Juwan Petit 03/22/2023 9:24 AM Dictation workstation: [id number] [facility] Work Phone: [facility] Work Phone: Radiology Study observation (narrative) [facility] Work Phone: XR Cervical spine Single vie won 03-22-2023 As above. MACRO: None Signed by: Juwan Petit 03/22/2023 9:17 AM Dictation workstation: [id number] [facility] Interpreted By: Juwan Rhoades, STUDY: XR CERVICAL SPINE 1 VIEW; ; 03/21/2023 12:54 pm INDICATION: Signs/Symptoms:surgical procedure. COMPARISON: 03/21/2023 at 10:17 a.m. ACCESSION NUMBER(S): [id number] ORDERING CLINICIAN: MIREILLE ZURITA FINDINGS: Single lateral [...] COMPARISON: 03/21/2023 at 10:17 a.m. ACCESSION NUMBER(S): [id number] ORDERING CLINICIAN: MIREILLE ZURITA FINDINGS: Single lateral [...] Juwan Petit 03/22/2023 9:17 AM Dictation workstation: [id number] [facility] Work Phone: [facility] Work Phone: As above. MACRO: None Signed by: Juwan Petit 03/22/2023 9:13 AM Dictation workstation: [id number] MMODAL Interpreted By: Juwan Rhoades, STUDY: XR CERVICAL SPINE 1 VIEW; ; 03/21/2023 10:16 am INDICATION: Signs/Symptoms:surgical procedure. COMPARISON: 03/21/2023 at 8:58 a.m. ACCESSION NUMBER(S): [id number] ORDERING CLINICIAN: MIREILLE ZURITA FINDINGS: Single lateral [...] COMPARISON: 03/21/2023 at 8:58 a.m. ACCESSION NUMBER(S): [id number] ORDERING CLINICIAN: MIREILLE ZURITA FINDINGS: Single lateral [...] Juwan Petit 03/22/2023 9:13 AM Dictation workstation: [id number] [facility] Work Phone: [facility] Work Phone: Linear metallic loca [...] Juwan Petit 03/22/2023 9:09 AM Dictation workstation: [id number] MMODAL Interpreted By: Juwan Rhoades, STUDY: XR CERVICAL SPINE 1 VIEW; ; 03/21/2023 8:59 am INDICATION: Signs/Symptoms:Cervical spondylosis with myelopathy. COMPARISON: 03/21/2023 at 8:10 a.m. ACCESSION NUMBER(S): [id number] ORDERING CLINICIAN: MIREILLE ZURITA FINDINGS: Single lateral [...] COMPARISON: 03/21/2023 at 8:10 a.m. ACCESSION NUMBER(S): [id number] ORDERING CLINICIAN: MIREILLE ZURITA FINDINGS: Single lateral [...] Juwan Petit 03/22/2023 9:09 AM Dictation workstation: [id number] [facility] Work Phone: [facility] Work Phone: XR CERVICAL SPINE 1 VIEWon 1 05-21-2022 XR CERVICAL SPINE 1 VIEW Interpreted By: Juwan Petit, STUDY: XR CERVICAL SPINE 1 VIEW; ; 03/21/2023 12:54 pm INDICATION: Signs/Symptoms:surgical procedure. COMPARISON: 03/21/2023 at 10:17 a.m. ACCESSION NUMBER(S): [id number] ORDERING CLINICIAN: MIREILLE ZURITA FINDINGS: Single lateral [...] Juwan Petit 03/22/2023 9:17 AM Dictation workstation: [id number] [facility] XR CERVICAL SPINE 1 VIEW Interpreted By: Juwan Petit, STUDY: XR CERVICAL SPINE 1 VIEW; ; 03/21/2023 10:16 am INDICATION: Signs/Symptoms:surgical procedure. COMPARISON: 03/21/2023 at 8:58 a.m. ACCESSION NUMBER(S): [id number] ORDERING CLINICIAN: MIREILLE ZURITA FINDINGS: Single lateral [...] Juwan Petit 03/22/2023 9:13 AM Dictation workstation: [id number] [facility] XR CERVICAL SPINE 1 VIEW Interpreted By: Juwan Petit, STUDY: XR CERVICAL SPINE 1 VIEW; ; 03/21/2023 8:59 am INDICATION: Signs/Symptoms:Cervical spondylosis with myelopathy. COMPARISON: 03/21/2023 at 8:10 a.m. ACCESSION NUMBER(S): [id number] ORDERING CLINICIAN: MIREILLE ZURITA FINDINGS: Single lateral [...] Juwan Petit 03/22/2023 9:09 AM Dictation workstation: [id number] [facility] XR CERVICAL SPINE 1 VIEW Interpreted By: Juwan Petit, STUDY: XR CERVICAL SPINE 1 VIEW; ; 03/21/2023 8:11 am INDICATION: Signs/Symptoms:surgical procedure. COMPARISON: 04/25/2020 ACCESSION NUMBER(S): [id number] ORDERING CLINICIAN: MIREILLE ZURITA FINDINGS: Single lateral [...] Juwan Petit 03/21/2023 8:52 AM Dictation workstation: [id number] [facility] XR Cervical spine Single vie won 03-21-2023 Radiology Study observation (narrative) [facility] Work Phone: Radiology Study observation (narrative) [facility] Work Phone: Radiology Study observation (narrative) [facility] Work Phone: As above. MACRO: None Signed by: Juwan Petit 03/21/2023 8:52 AM Dictation workstation: [id number] [facility] Interpreted By: Juwan Rhoades, STUDY: XR CERVICAL SPINE 1 VIEW; ; 03/21/2023 8:11 am INDICATION: Signs/Symptoms:surgical procedure. COMPARISON: 04/25/2020 ACCESSION NUMBER(S): [id number] ORDERING CLINICIAN: MIREILLE ZURITA FINDINGS: Single lateral [...] to positioning and otherwise of uncertain significance. [facility] MMODAL Juwan Petit, - 03/21/2023 Interpreted By: Juwan Petit, STUDY: XR CERVICAL SPINE 1 VIEW; ; 03/21/2023 8:11 am INDICATION: Signs/Symptoms:surgical procedure. COMPARISON: 04/25/2020 ACCESSION NUMBER(S): [id number] ORDERING CLINICIAN: MIREILLE ZURITA FINDINGS: Single lateral [...] Juwan Petit 03/21/2023 8:52 AM Dictation workstation: [id number] [facility] Work Phone: Radiology Study observation (narrative) [facility] Work Phone: XR Cervical spine Single vie wOrdered By: Juwan Petit on 03-21-2023 [facility] Work Phone: MRSA isol Org specific cx Ql (Nose)Ordered By: Cele Chatterjee on 03-16-2023 Interpretation and review of laboratory results Normal [facility] Staphylococcus sp identified Org specific cx Nom (Unsp spec) No Staphylococcus aureus isolated [facility] XR Chest 2 Viewson 3 No acute cardiopulmo nary disease. MACRO: none Signed by: Zeynep Sen 03/15/2023 12:07 PM Dictation workstation: [id number] MMODAL Interpreted By: Zeynep Palafox, STUDY: XR CHEST 2 VIEWS; 03/14/2023 2:09 pm INDICATION: Signs/Symptoms:preop testing. COMPARISON: None. ACCESSION NUMBER(S): [id number] ORDERING CLINICIAN: MIREILLE ZURITA FINDINGS: Heart is [...] INDICATION: Signs/Symptoms:preop testing. COMPARISON: None. ACCESSION NUMBER(S): [id number] ORDERING CLINICIAN: MIREILLE ZURITA FINDINGS: Heart is [...] Zeynep Sen 03/15/2023 12:07 PM Dictation workstation: [id number] [facility] Work Phone: XR Chest 2 ViewsOrdered By: Zeynep Sen on 03-15-2023 [facility] Work Phone: CBC panel Auto (Bld)on 03-14 Erythrocyte distribution width (RBC) [Ratio] 13.0 % Normal 11.5-14.5 [facility] Comment on above: Performed By: #### 5 8410-2 #### MADELEINE ROSE ([id number]) [facility] ([facility]) [address] [place] [address] Hematocrit (Bld) [Volume fraction] 37.8 % Normal 36.0-46.0 [facility] Comment on above: Performed By: #### 5 8410-2 #### MADELEINE ROSE ([id number]) [facility] ([facility]) [address] [place] [address] Hemoglobin (Bld) [Mass/Vol] 12.2 g/dL Normal 12.0-16.0 [facility] Comment on above: Performed By: #### 5 8410-2 #### MADELEINE ROSE ([id number]) [facility] ([facility]) [address] [place] [address] MCH (RBC) [Entitic mass] 30.1 pg Normal 26.0-34.0 [facility] Comment on above: Performed By: #### 5 8410-2 #### MADELEINE ROSE ([id number]) [facility] ([facility]) [address] [place] [address] MCHC (RBC) [Mass/Vol] 32.3 g/dL Normal 32.0-36.0 [facility] Comment on above: Performed By: #### 5 8410-2 #### MADELEINE ROSE ([id number]) [facility] ([facility]) [address] [place] [address] MCV (RBC) [Entitic vol] 93 fL Normal 80-100 [facility] Comment on above: Performed By: #### 5 8410-2 #### MADELEINE ROSE ([id number]) [facility] ([facility]) [address] [place] [address] Nucleated RBC/100 WBC (Bld) [Ratio] 0.0 /100 WBCs Normal 0.0-0.0 [facility] Comment on above: Performed By: #### 5 8410-2 #### MADELEINE ROSE ([id number]) [facility] ([facility]) [address] [place] [address] Platelets (Bld) [#/Vol] 350 x10*3/uL Normal 150-450 [facility] Comment on above: Performed By: #### 5 8410-2 #### MADELEINE ROSE ([id number]) [facility] ([facility]) [address] [place] [address] RBC (Bld) [#/Vol] 4.05 x10*6/uL Normal 4.00-5.20 [facility] Comment on above: Performed By: #### 5 8410-2 #### MADELIENE ROSE ([id number]) [facility] ([facility]) [address] [place] [address] WBC (Bld) [#/Vol] 8.6 x10*3/uL Normal 4.4-11.3 [facility] Comment on above: Performed By: #### 5 8410-2 #### MADELEINE ROSE ([id number]) [facility] ([facility]) [address] [place] [address] Erythrocyte distribution width (RBC) [Ratio] 13.0 % 11.5 - 14.5 % [facility] Hematocrit (Bld) [Volume fraction] 37.8 % 36.0 - 46.0 % [facility] Hemoglobin (Bld) [Mass/Vol] 12.2 g/dL 12.0 - 16.0 g/dL [facility] Interpretation and review of laboratory results Normal [facility] MCH (RBC) [Entitic mass] 30.1 pg 26.0 - 34.0 pg [facility] MCHC (RBC) [Mass/Vol] 32.3 g/dL 32.0 - 36.0 g/dL [facility] MCV (RBC) [Entitic vol] 93 fL 80 - 100 fL [facility] Nucleated RBC/100 WBC (Bld) [Ratio] 0.0 % [facility] Platelets (Bld) [#/Vol] 350 10*3/uL [facility] RBC (Bld) [#/Vol] 4.05 10*6/uL [facility] WBC (Bld) [#/Vol] 8.6 10*3/uL [facility] Comprehensive metabolic 2000 panelon 03-14-2023 Albumin BCP dye [Mass/Vol] 4.3 g/dL Normal 3.4-5.0 [facility] Comment on above: Performed By: #### 2 4323-8 #### MADELEINE ROSE ([id number]) [facility] ([facility]) [address] [place] [address] ALP [Catalytic activity/Vol] 51 U/L Normal 33-136 [facility] Comment on above: Performed By: #### 2 4323-8 #### MADELEINE ROSE ([id number]) [facility] ([facility]) [address] [place] [address] ALT With P-5'-P [Catalytic activity/Vol] 14 U/L Normal 7-45 [facility] Comment on above: Result Comment: Lorena ents treated with Sulfasalazine may generate falsely decreased results for ALT. Performed By: #### 2 4323-8 #### MADELEINE ROSE ([id number]) [facility] ([facility]) [address] [place] [address] Anion gap [Moles/Vol] 10 mmol/L Normal 10-20 [facility] Comment on above: Performed By: #### 2 4323-8 #### MADELEINE ROSE ([id number]) [facility] ([facility]) [address] [place] [address] AST With P-5'-P [Catalytic activity/Vol] 13 U/L Normal 9-39 [facility] Comment on above: Performed By: #### 2 4323-8 #### MADELEINE ROSE ([id number]) [facility] ([facility]) [address] [place] [address] Bilirubin [Mass/Vol] 0.5 mg/dL Normal 0.0-1.2 [facility] Comment on above: Performed By: #### 2 4323-8 #### MADELEINE ROSE ([id number]) [facility] ([facility]) [address] [place] [address] Calcium [Mass/Vol] 9.2 mg/dL Normal 8.6-10.3 [facility] Comment on above: Performed By: #### 2 4323-8 #### MADELEINE ROSE ([id number]) [facility] ([facility]) [address] [place] [address] Chloride [Moles/Vol] 101 mmol/L Normal 98-107 [facility] Comment on above: Performed By: #### 2 4323-8 #### MADELEINE ROSE ([id number]) [facility] ([facility]) [address] [place] [address] CO2 [Moles/Vol] 29 mmol/L Normal 21-32 [facility] Comment on above: Performed By: #### 2 4323-8 #### MADELEINE ROSE ([id number]) [facility] ([facility]) [address] [place] [address] Creatinine [Mass/Vol] 0.95 mg/dL Normal 0.50-1.05 [facility] Comment on above: Performed By: #### 2 4323-8 #### MADELEINE ROSE ([id number]) [facility] ([facility]) [address] [place] [address] GFR/1.73 sq M.predicted MDRD (S/P/Bld) [Vol rate/Area] 65 mL/min/1.73m*2 Normal >60 [facility] Comment on above: Result Comment: Calc ulations of estimated GFR are performed using the 2020 CKD-EPI Study Refit equation without the race variable for the IDMS-Traceable creatinine methods. https://jasn.asnjournals.org/content//ASN.0598789240 Performed By: #### 2 4323-8 #### MADELEINE ROSE ([id number]) [facility] ([facility]) [address] [place] [address] Glucose [Mass/Vol] 83 mg/dL Normal 74-99 [facility] Comment on above: Performed By: #### 2 4323-8 #### MADELEINE ROSE ([id number]) [facility] ([facility]) [address] [place] [address] Potassium [Moles/Vol] 4.2 mmol/L Normal 3.5-5.3 [facility] Comment on above: Performed By: #### 2 4323-8 #### MADELEINE ROSE ([id number]) [facility] ([facility]) [address] [place] [address] Protein [Mass/Vol] 6.4 g/dL Normal 6.4-8.2 [facility] Comment on above: Performed By: #### 2 4323-8 #### MADELEINE ROSE ([id number]) [facility] ([facility]) [address] [place] [address] Sodium [Moles/Vol] 136 mmol/L Normal 136-145 [facility] Comment on above: Performed By: #### 2 4323-8 #### MADELEINE ROSE ([id number]) [facility] ([facility]) [address] [place] [address] Urea nitrogen [Mass/Vol] 21 mg/dL Normal 6-23 [facility] Comment on above: Performed By: #### 2 4323-8 #### MADELEINE ROSE ([id number]) [facility] ([facility]) [address] [place] [address] Albumin BCP dye [Mass/Vol] 4.3 g/dL 3.4 - 5.0 g/dL [facility] ALP [Catalytic activity/Vol] 51 U/L 33 - 136 U/L [facility] ALT With P-5'-P [Catalytic activity/Vol] 14 U/L 7 - 45 U/L [facility] Comment on above: Patients treated wit h Sulfasalazine may generate falsely decreased results for ALT. Anion gap [Moles/Vol] 10 mmol/L 10 - 20 mmol/L [facility] AST With P-5'-P [Catalytic activity/Vol] 13 U/L 9 - 39 U/L [facility] Bilirubin [Mass/Vol] 0.5 mg/dL 0.0 - 1.2 mg/dL [facility] Calcium [Mass/Vol] 9.2 mg/dL 8.6 - 10.3 mg/dL [facility] Chloride [Moles/Vol] 101 mmol/L 98 - 107 mmol/L [facility] CO2 [Moles/Vol] 29 mmol/L 21 - 32 mmol/L [facility] Creatinine [Mass/Vol] 0.95 mg/dL 0.50 - 1.05 mg/dL [facility] GFR/1.73 sq M.predicted MDRD (S/P/Bld) [Vol rate/Area] 65 mL/min/{1.73_m2} - PINF [facility] Comment on above: Calculations of gabriela mated GFR are performed using the 2020 CKD-EPI Study Refit equation without the race variable for the IDMS-Traceable creatinine methods. https://jasn.asnjournals.org/content//ASN.3130535093 Glucose [Mass/Vol] 83 mg/dL 74 - 99 mg/dL [facility] Potassium [Moles/Vol] 4.2 mmol/L 3.5 - 5.3 mmol/L [facility] Protein [Mass/Vol] 6.4 g/dL 6.4 - 8.2 g/dL [facility] Sodium [Moles/Vol] 136 mmol/L 136 - 145 mmol/L [facility] Urea nitrogen [Mass/Vol] 21 mg/dL 6 - 23 mg/dL [facility] ECG 12-LEADon 03-14-2023 ECG 12-LEAD Ventricular Rate 63 Atrial Rate 63 P-R Interval 192 QRS Duration 84 Q-T Interval 406 QTC Calculation(Bazett) 415 P Olmitz 51 R Olmitz 52 T Olmitz 44 QRS Count 10 Q Onset 224 P Onset 128 P Offset 183 T Offset 427 QTC Fredericia 412 Diagnosis Normal sinus rhythm Normal ECG No previous ECGs available Confirmed by Camilo Parr ([id number]) on 03/28/2023 9:17:27 PM Normal [facility] No Panel Informationon 03-14 Interpretation and review of laboratory results Normal [facility] PT and aPTT panel Coag (PPP) on 03-14-2023 aPTT Coag (PPP) [Time] 29 s Normal 27-38 [facility] Comment on above: Order Comment: The A PTT is no longer used for monitoring Unfractionated Heparin Therapy. For monitoring Heparin Therapy, use the Heparin Assay. Performed By: #### 3 4529-8 #### MADELENIE ROSE ([id number]) [facility] ([facility]) [address] [place] [address] INR Coag (PPP) [Relative time] 1.0 Normal 0.9-1.1 [facility] Comment on above: Order Comment: The A PTT is no longer used for monitoring Unfractionated Heparin Therapy. For monitoring Heparin Therapy, use the Heparin Assay. Performed By: #### 3 4529-8 #### MADELEINE ROSE ([id number]) [facility] ([facility]) [address] [place] [address] PT Coag (PPP) [Time] 11.0 s Normal 9.8-12.8 [facility] Comment on above: Order Comment: The A PTT is no longer used for monitoring Unfractionated Heparin Therapy. For monitoring Heparin Therapy, use the Heparin Assay. Performed By: #### 3 4529-8 #### MADELEINE ROSE ([id number]) [facility] ([facility]) [address] [place] [address] aPTT Coag (PPP) [Time] 29 s [facility] INR Coag (PPP) [Relative time] 1.0 {INR} 0.9 - 1.1 [facility] Interpretation and review of laboratory results Normal [facility] PT Coag (PPP) [Time] 11.0 s [facility] The APTT is no longe r used for monitoring Unfractionated Heparin Therapy. For monitoring Heparin Therapy, use the Heparin Assay. [facility] Phosphateon 03-14-2023 Phosphate [Mass/Vol] 3.1 mg/dL Normal 2.5-4.9 [facility] Comment on above: Result Comment: The performance characteristics of phosphorus testing in heparinized plasma have been validated by the individual laboratory site where testing is performed. Testing on heparinized plasma is not approved by the FDA; however, such approval is not necessary. Performed By: #### 2 777-1 #### MADELEINE ROSE ([id number]) [facility] ([facility]) [address] [place] [id number] Phosphoruson 03-14-2023 Phosphate [Mass/Vol] 3.1 mg/dL 2.5 - 4.9 mg/dL [facility] Comment on above: The performance [...] Status: Final result Abnormal: No Resulting Lab: [facility] [address] [place] [address] CULTURE No Staphylococcus aureus isolated Normal [facility] Comment on above: Performed By: #### 5 2969-3 #### JULISSA Jarvis ([id number]) [facility] ([facility]) [address] [place], [place] [id number] XR CHEST 2 VIEWSon 3 XR CHEST 2 VIEWS Interpreted By: Zeynep Palafox, STUDY: XR CHEST 2 VIEWS; 03/14/2023 2:09 pm INDICATION: Signs/Symptoms:preop testing. COMPARISON: None. ACCESSION NUMBER(S): [id number] ORDERING CLINICIAN: MIREILLE ZURITA FINDINGS: Heart is [...] Zeynep Sen 03/15/2023 12:07 PM Dictation workstation: [id number] [facility] XR Chest 2 Viewson 3 Radiology Study observation (narrative) [facility] Work Phone: Blood Pressure Cuff [...] would like to proceed. She is a Pentecostalism and so we definitely discussed not using blood products. She also has a [employer] shunt and and so we are going [...] would like to proceed. She is a Pentecostalism and so we definitely discussed not using blood products. She also has a [employer] shunt and and so we are going [...] [place]) Oral Tablet Vitals Vital Signs Recorded: [id number] 02:47PM Pvnddjhieyp24.9 F, Temporal Heart Rate69 Nbqaskdj115, LUE, Sitting Elxhzdtdh67, LUE, Sitting Blood Pressure Cuff SizeAdult Height5 ft 3 in Airqlu824 lb BMI Yndsrxlute08.29 kg/m2 BSA Calculated1.81 Tobacco Useb) No PHQ (more content not included)... Normal [facility]um[facility] CT cervical spine wo [facility] 0 01-03-2023 CT cervical spine wo [facility] Main [place] [id number] CT Scan Report Signed Patient: Mary Goode MR#: [id number] : 1950 Acct:[id number] Age/Sex: 72 / F ADM Date: 01/03/23 Loc: CT Room: Type: [facility] [address] Attending Dr: Mireille Zurita MD Copies to: [...] Lona Rosas M.D.01/03/2023 4:01 PM Dictation Location: [place] [address] Transcribed By: [facility] 01/03/23 1601 Dictated By: Lona Rosas II, MD 01/03/23 1557 Signed By: 01/03/23 1601 [facility] [place] Initial Visit (Neurosurgery) on 12-07-2022 Initial Visit (Neurosurgery) Diagnoses/Problems 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 : No [...] has been experiencing. 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 [...] has been experiencing. 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 [...] conon 08-04-19 MR knee RT wo [place] [address] MRI Report Signed Patient: Mary Goode MR#: [id number] : 1950 Acct:[id number] Age/Sex: 71 / F ADM Date: 08/03/22 Loc: [facility] Room: Type: [facility] [address] Attending Dr: Imer Purcell MD Copies to: [...] Enamorado Jr., D.OKiersten08/03/2022 2:05 PM Dictation Location: [place] [address] Transcribed By: [facility] 08/03/22 1405 Dictated By: Olayinka Enamorado Jr, DO 08/03/22 1352 Signed By: 08/03/22 1405 Normal [facility] XR pre/post mri xrayon 08-03 XR pre/post mri xray [facility] [place] [address] [place] [address] XRay Report Signed Patient: Mary Goode MR#: [id number] : 1950 Acct:[id number] Age/Sex: 71 / F ADM Date: 08/03/22 Loc: [facility] Room: Type: [facility] Attending Dr: Imer Purcell MD Copies to: Imer Purcell MD Ordering Provider: Imer Purcell MD Date of Service: 08/03/22 XR/XR pre/post mri xray: RIGHT KNEE AND SKULL PRE'S 2 views right knee, 2 views skull. Reason for exam: [employer] shunt. Lateral posterior right knee pain and swelling for years. Comparison: None. FINDINGS: Right knee: Bones are grossly demineralized. No acute bony process is seen. Mild degenerative changes without significant joint space narrowing. Osteophyte versus loose body versus osteochondroma seen projecting over the lateral aspect of the tibial plateau. Skull series: A ventricular portion of the [employer] shunt is seen projecting over the right skull. No acute process is seen. XR/XR pre/post mri xray IMPRESSION: Degenerative changes involving the right knee without acute bony process. [employer] shunt is seen. No acute process is noted involving the skull. Impression dictated by: Olayinka Enamorado Jr., D.OKiersten08/03/2022 2:08 PM Dictation Location: [place] [address] Transcribed By: [facility] 08/03/22 1408 Dictated By: Olayinka Enamorado Jr, DO 08/03/22 1405 Signed By: 08/03/22 1408 Normal [facility] MM screening mammo BI w/CADo n 07-30-2022 MM screening mammo BI w/CAD [facility] [place] [address] [place] [address] Mammography Report Signed Patient: Mary Goode MR#: [id number] : 1950 Acct:[id number] Age/Sex: 71 / F ADM Date: 07/30/22 Loc: OR Room: Type: [facility] Attending Dr: Imer Purcell MD Copies to: [...] Kelly York M.D.07/30/2022 1:58 PM Dictation Location: [facility] Transcribed By: JACKIE 07/30/22 1358 Dictated By: Kelly York MD 07/30/22 1348 Signed By: 07/30/22 1358 [facility] [place] Covid-19 PCR (CVDTB)on 07-08 SARS-CoV-2 (COVID-19) RNA CONRADO+probe Ql (Unsp spec) Not detected Normal NOT DETECTED [facility] Comment on above: Result Comment: This test is not yet approved or cleared by the [place] FDA. When there are no FDA-approved or cleared tests available, and other criteria are met, FDA can make tests available under an emergency access mechanism called an Emergency Use Authorization (EUA). The EUA for this test is supported by the [place] of Health and Human Service's (HHS's) declaration [...] SARS-CoV-2. Performed By: #### O BSCRN #### [facility] [address] [place] [address] Dr. Shobha Ruffin XR pre/post mri xrayon 07-23 XR pre/post mri xray [facility] Main [address] [address] XRay Report Signed Patient: Mary Goode MR#: [id number] : 1950 Acct:[id number] Age/Sex: 71 / F ADM Date: 07/22/22 Loc: [facility] Room: Type: [facility] Attending Dr: Marika Friedman PA-C Copies [...] Lona Rosas M.D.07/23/2022 9:35 AM Dictation Location: [place] [address] Transcribed By: [facility] 07/23/2235 Dictated By: Lona Rosas II, MD 07/23/2233 Signed By: 07/23/22 0935 [facility] [place] MR head/brain wo conon 07-22 MR head/brain wo con [address] [address] MRI Report Signed Patient: Mary Goode MR#: [id number] : 1950 Acct:[id number] Age/Sex: 71 / F ADM Date: 07/22/22 Loc: [facility] Room: Type: [facility] CLI Attending Dr: Marika Friedman PA-C Copies to: [...] Lona Rosas M.D.07/22/2022 1:55 PM Dictation Location: [place] [address] Transcribed By: JACKIE 07/22/22 0737 Dictated By: Lona Rosas II, MD 07/22/22 7111 Signed By: 07/22/22 1359 [facility] [place] TSHon 07-21-2022 TSH 0.487 uIU/mL Normal 0.358-3.74 0 [facility] Comment on above: Performed By: #### O BSCRN #### [facility] [address] [place] [address] [address] Shobha Ruffin VITAMIN B12on 07-21-2022 Cobalamin (Vitamin B12) [Mass/Vol] 554.0 pg/mL Normal 193.0-986. 0 [facility] Comment on above: Performed By: #### R ENAL, URIC, MG #### [facility] [address] [place] [address] [address] Shobha Ruffin FL upper GI w air*on 023 FL upper GI w air* [facility] [place] [address] [place] [address] Fluoroscopy Report Signed Patient: Mary Goode MR#: [id number] : 1950 Acct:[id number] Age/Sex: 71 / F ADM Date: 06/08/22 Loc: XD Room: Type: [facility] Attending Dr: Freda CHAPMAN Copies to: ARI [...] Adan Chen M.D.06/08/2022 10:46 AM Dictation Location: [place] [address] Transcribed By: JACKIE 06/08/22 1046 Dictated By: Adan Chen DO 06/08/22 1042 Signed By: 06/08/22 1046 [facility] [place] PTH INTACTon 05-18-2022 PTH, Intact 29 pg/mL Normal 15-65 [facility] Comment on above: Performed By: #### R ENAL, URIC, MG #### [facility] [address] [place] [address] Dr. Shobha Ruffin FERRITINon 05-17-2022 Ferritin [Mass/Vol] 55.0 ng/mL Normal 8.0-252.0 [facility] Comment on above: Performed By: #### R ENAL, URIC, MG #### [facility] [address] [place] [address] Dr. Shobha Ruffin HEMOGRAM AND PLATELon 2022 Hematocrit (Bld) [Volume fraction] 35.6 % Critically low 36.0-48.0 [facility] Comment on above: Performed By: #### R ENAL, URIC, MG #### [facility] [address] [place] [address] Dr. Shobha Ruffin Hemoglobin (Bld) [Mass/Vol] 12.3 g/dL Normal 12.0-16.0 [facility] Comment on above: Performed By: #### R ENAL, URIC, MG #### [facility] [address] [place] [address] Dr. Shobha Ruffin MCH (RBC) [Entitic mass] 29.6 pg Normal 26.7-34.0 [facility] Comment on above: Performed By: #### R ENAL, URIC, MG #### [facility] [address] [place] [address] Dr. Shobha Ruffin MCHC (RBC) [Mass/Vol] 34.6 g/dL Normal 29.9-35.2 [facility] Comment on above: Performed By: #### R ENAL, URIC, MG #### [facility] [address] [place] [address] Dr. Shobha Ruffin MCV (RBC) [Entitic vol] 85.8 fL Normal 81.0-99.0 [facility] Comment on above: Performed By: #### R ENAL, URIC, MG #### [facility] [address] [place] [address] Dr. Shobha Ruffin PLT 338 103/ul Normal 150-450 [facility] Comment on above: Performed By: #### R ENAL, URIC, MG #### [facility] [address] [place] [address] Dr. Shobha Ruffin RBC 4.15 106/ul Critically low 4.20-5.40 [facility] Comment on above: Performed By: #### R ENAL, URIC, MG #### [facility] [address] [place] [address] Dr. Shobha Ruffin WBC 7.0 103/ul Normal 4.0-11.0 [facility] Comment on above: Performed By: #### R ENAL, URIC, MG #### [facility] [address] [place] [address] Dr. Shobha Ruffin IRON AND TIBCon 05-17-2022 % SATURATION 29.6 % Normal [facility] Comment on above: Performed By: #### R ENAL, URIC, MG #### [facility] [address] [place] [address] Dr. Shobha Ruffin Iron [Mass/Vol] 89.0 ug/dL Normal 50.0-170.0 [facility] Comment on above: Performed By: #### R ENAL, URIC, MG #### [facility] [address] [place] [address] Dr. Shobha Ruffin TIBC DIRECT 301.0 ug/dL Normal 250.0-450. 0 [facility] Comment on above: Performed By: #### R ENAL, URIC, MG #### [facility] [address] [place] [address] Dr. Shobha Ruffin MAGNESIUMon 05-17-2022 Magnesium [Mass/Vol] 2.2 mg/dL Normal 1.8-2.4 [facility] Comment on above: Performed By: #### R ENAL, URIC, MG #### [facility] [address] [place] [address] Dr. Shobha Ruffin RENAL FUNCTION PANELon 05-17 Albumin [Mass/Vol] 3.7 g/dL Normal 3.4-5.0 [facility] Comment on above: Performed By: #### R ENAL, URIC, MG #### [facility] [address] [place] [address] Dr. Shobha Ruffin Calcium [Mass/Vol] 9.1 mg/dL Normal 8.5-10.1 [facility] Comment on above: Performed By: #### R ENAL, URIC, MG #### [facility] [address] [place] [address] [address] Shobha Ruffin Chloride [Moles/Vol] 100 mmol/L Normal 98-107 [facility] Comment on above: Performed By: #### R ENAL, URIC, MG #### [facility] [address] [place] [address] Dr. Shobha Ruffin CO2 [Moles/Vol] 31.0 mmol/L Normal 21.0-32.0 [facility] Comment on above: Performed By: #### R ENAL, URIC, MG #### [facility] [address] [place] [address] Dr. Shobha Ruffin Creatinine [Mass/Vol] 0.92 mg/dL Normal 0.55-1.02 [facility] Comment on above: Performed By: #### R ENAL, URIC, MG #### [facility] [address] [place] [address] Dr. Shobha Ruffin EGFR-AF KYRGYZ >60 Normal >=60 [facility] Comment on above: Performed By: #### R ENAL, URIC, MG #### [facility] [address] [place] [address] Dr. Shobha Ruffin EGFR-NON AF KYRGYZ >60 Normal >=60 [facility] Comment on above: Performed By: #### R ENAL, URIC, MG #### [facility] [address] [place] [address] Dr. Shobha Ruffin Glucose [Mass/Vol] 93 mg/dL Normal 74-106 [facility] Comment on above: Performed By: #### R ENAL, URIC, MG #### [facility] [address] [place] [address] Dr. Shobha Ruffin Phosphate [Mass/Vol] 3.7 mg/dL Normal 2.6-4.7 [facility] Comment on above: Performed By: #### R ENAL, URIC, MG #### [facility] [address] [place] [address] Dr. Shobha Ruffin Potassium [Moles/Vol] 3.9 mmol/L Normal 3.5-5.1 [facility] Comment on above: Performed By: #### R ENAL, URIC, MG #### [facility] [address] [place] [address] Dr. Shobha Ruffni Sodium [Moles/Vol] 138 mmol/L Normal 136-145 [facility] Comment on above: Performed By: #### R ENAL, URIC, MG #### [facility] [address] [place] [address] Dr. Shobha Ruffin Urea nitrogen [Mass/Vol] 19.0 mg/dL Critically high 7.0-18.0 [facility] Comment on above: Performed By: #### R ENAL, URIC, MG #### [facility] [address] [place] [address] Dr. Shobha Ruffin UA RANDOM W/MICROSCOPICon BACTERIA NONE SEEN Normal NONE SEEN [facility] Comment on above: Performed By: #### U AMIC #### [facility] [address] [place] [address] Dr. Shobha Ruffin Bilirubin Ql (U) Negative Normal NEGATIVE [facility] Comment on above: Performed By: #### U AMIC #### [facility] [address] [place] [address] Dr. Shobha Ruffin CAST NONE SEEN Normal NONE SEEN [facility] Comment on above: Performed By: #### U AMIC #### [facility] [address] [place] [address] Dr. Shobha Ruffin Clarity (U) SL CLOUDY Abnormal CLEAR [facility] Comment on above: Performed By: #### U AMIC #### [facility] [address] [place] [address] [address] Shobha Ruffin Color (U) LT. YELLOW Normal YELLOW [facility] Comment on above: Performed By: #### U AMIC #### [facility] [address] [place] [address] [address] Shobha Ruffin Crystals LM Nom (Urine sed) NONE SEEN Normal NONE SEEN [facility] Comment on above: Performed By: #### U AMIC #### [facility] [address] [place] [address] [address] Shobha Ruffin Epithelial cells LM Ql (Urine sed) MODERATE Abnormal NONE SEEN /RARE [facility] Comment on above: Performed By: #### U AMIC #### [facility] [address] [place] [address] Dr. Shobha Ruffin Glucose Ql (U) Negative Normal NEGATIVE [facility] Comment on above: Performed By: #### U AMIC #### [facility] [address] [place] [address] Dr. Shobha Ruffin Hemoglobin Ql (U) Negative Normal NEGATIVE [facility] Comment on above: Performed By: #### U AMIC #### [facility] [address] [place] [address] Dr. Shobha Ruffin Ketones Ql (U) Negative Normal NEGATIVE [facility] Comment on above: Performed By: #### U AMIC #### [facility] [address] [place] [address] Dr. Shobha Ruffin LEUKOCYTES TRACE Abnormal NEGATIVE [facility] Comment on above: Performed By: #### U AMIC #### [facility] [address] [place] [address] Dr. Shobha Ruffin MUCOUS NONE SEEN Normal NONE SEEN [facility] Comment on above: Performed By: #### U AMIC #### [facility] [address] [place] [address] Dr. Shobha Ruffin Nitrite Ql (U) Negative Normal NEGATIVE [facility] Comment on above: Performed By: #### U AMIC #### [facility] [address] [place] [address] Dr. Shobha Ruffin pH (U) 7.5 [pH] Normal 5-9 [facility] Comment on above: Performed By: #### U AMIC #### [facility] [address] [place] [address] Dr. Shobha Ruffin RBC NONE SEEN Abnormal 0-2 [facility] Comment on above: Performed By: #### U AMIC #### [facility] [address] [place] [address] Dr. Shobha Ruffin SPEC GRAVITY 1.015 Normal 1.005-<=1. 025 [facility] Comment on above: Performed By: #### U AMIC #### [facility] [address] [place] [address] Dr. Shobha Ruffin UA PROTEIN Negative Normal NEGATIVE/ TRACE [facility] Comment on above: Performed By: #### U AMIC #### [facility] [address] [place] [address] Dr. Shobha Ruffin Urobilinogen Qn (U) 0.2 {Raul'U}/dL Normal 0.2 - 1.0 [facility] Comment on above: Performed By: #### U AMIC #### [facility] [address] [place] [address] Dr. Shobha Ruffin WBC 0-2 Abnormal NONE SEEN [facility] Comment on above: Performed By: #### U AMIC #### [facility] [address] [place] [address] Dr. Shobha Ruffin URINE T PROTEIN CREAT RATIOo n 05-17-2022 Protein (U) [Mass/Vol] 20.5 mg/dL Critically high <=12.0 [facility] Comment on above: Performed By: #### O BSCRN #### [facility] [address] [place] [address] Dr. Shobha Ruffin UR PROT CREAT RAT 0.21 Normal [facility] Comment on above: Performed By: #### O BSCRN #### [facility] [address] [place] [address] Dr. Shobha Ruffin URINE CREAT 98.95 mg/dL Normal 20.00-300. 00 [facility] Comment on above: Performed By: #### O BSCRN #### [facility] [address] [place] [address] Dr. Shobha Ruffin VITAMIN D 25 OHon 05-17-2022 VIT D 25-OH 29.5 ng/mL Normal [facility] Comment on above: Performed By: #### R KEVIN URIC, MG #### [facility] [address] [place] [address] Dr. Shobha Ruffin VIT D RANGES SEE BELOW Normal [facility] Comment on above: Result Comment: <20 ng/mL Vit D deficient 20 - <30 ng/mL Vit D insufficient 30 - 100 ng/mL Vit D sufficient >100 ng/mL Potential Toxicity Performed By: #### R ENAL URIC, MG #### [facility] [address] [place] [address] Dr. Shobha Ruffin CBC AUTO DIFFon 05-04-2022 BASO # 0.1 103/ul Normal 0.0-0.1 [facility] Comment on above: Performed By: #### O BSCRN #### [facility] [address] [place] [address] Dr. Shobha Ruffin Basophils/100 WBC (Bld) 1.0 % Normal 0.2-2.0 [facility] Comment on above: Performed By: #### O BSCRN #### [facility] [address] [place] [address] Dr. Shobha Ruffin EO # 0.2 103/ul Normal 0.0-0.7 [facility] Comment on above: Performed By: #### O BSCRN #### [facility] [address] [place] [address] Dr. Shobha Ruffin Eosinophils/100 WBC (Bld) 2.5 % Normal 0.9-7.0 [facility] Comment on above: Performed By: #### O BSCRN #### [facility] [address] [place] [address] Dr. Shobha Ruffin Erythrocyte distribution width (RBC) [Ratio] 13.3 % Normal 11.0-15.0 [facility] Comment on above: Performed By: #### O BSCRN #### [facility] [address] [place] [address] Dr. Shobha Ruffin Hematocrit (Bld) [Volume fraction] 39.7 % Normal 36.0-48.0 [facility] Comment on above: Performed By: #### O BSCRN #### [facility] [address] [place] [address] Dr. Shobha Ruffin Hemoglobin (Bld) [Mass/Vol] 12.9 g/dL Normal 12.0-16.0 [facility] Comment on above: Performed By: #### O BSCRN #### [facility] [address] [place] [address] Dr. Shobha Ruffin IG # 0.02 10e3/ul Normal 0.00-0.03 [facility] Comment on above: Performed By: #### O BSCRN #### [facility] [address] [place] [address] Dr. Shobha Ruffin IG % 0.3 % Normal 0.0-0.5 [facility] Comment on above: Performed By: #### O BSCRN #### [facility] [address] [place] [address] Dr. Shobha Ruffin LYMPH # 1.7 103/ul Normal 1.2-3.8 [facility] Comment on above: Performed By: #### O BSCRN #### [facility] [address] [place] [address] Dr. Shobha Ruffin Lymphocytes/100 WBC (Bld) 22.2 % Normal 20.5-60.0 [facility] Comment on above: Performed By: #### O BSCRN #### [facility] [address] [place] [address] Dr. Shobha Ruffin MANUAL DIFF REQ NO Normal [facility] Comment on above: Performed By: #### O BSCRN #### [facility] [address] [place] [address] Dr. Shobha Ruffin MCH (RBC) [Entitic mass] 29.3 pg Normal 26.7-34.0 [facility] Comment on above: Performed By: #### O BSCRN #### [facility] [address] [place] [address] Dr. Shobha Ruffin MCHC (RBC) [Mass/Vol] 32.5 g/dL Normal 29.9-35.2 [facility] Comment on above: Performed By: #### O BSCRN #### [facility] [address] [place] [address] Dr. Shobha Ruffin MCV (RBC) [Entitic vol] 90.2 fL Normal 81.0-99.0 [facility] Comment on above: Performed By: #### O BSCRN #### [facility] [address] [place] [address] Dr. Shobha Ruffin MONO # 0.8 103/ul Normal 0.3-0.8 [facility] Comment on above: Performed By: #### O BSCRN #### [facility] [address] [place] [address] Dr. Shobha Ruffin Monocytes/100 WBC (Bld) 10.5 % Normal 1.7-12.0 [facility] Comment on above: Performed By: #### O BSCRN #### [facility] [address] [place] [address] Dr. Shobha Ruffin NEUT # 4.9 103/ul Normal 1.4-6.5 [facility] Comment on above: Performed By: #### O BSCRN #### [facility] [address] [place] [address] Dr. Shobha Ruffin Neutrophils/100 WBC (Bld) 63.5 % Normal 43.0-75.0 [facility] Comment on above: Performed By: #### O BSCRN #### [facility] [address] [place] [address] Dr. Shobha Ruffin Platelet mean volume (Bld) [Entitic vol] 8.8 fL Critically low 9.5-13.5 [facility] Comment on above: Performed By: #### O BSCRN #### [facility] [address] [place] [address] Dr. Shobha Ruffin PLT 307 103/ul Normal 150-450 [facility] Comment on above: Performed By: #### O BSCRN #### [facility] [address] [address] [address] Shobha Ruffin RBC 4.40 106/ul Normal 4.20-5.40 [facility] Comment on above: Performed By: #### O BSCRN #### [facility] [address] [address] [address] Shobha Ruffin WBC 7.8 103/ul Normal 4.0-11.0 [facility] Comment on above: Performed By: #### O BSCRN #### [facility] [address] [place] [address] Dr. Shobha Ruffin LIPID PROFILEon 05-04-2022 CHOL-HDL RATIO NORM SEE BELOW Normal [facility] Comment on above: Result Comment: 3.3 - 4.4 LOW RISK 4.4 - 7.1 AVERAGE RISK 7.1 - 11.0 MODERATE RISK >11.0 HIGH RISK Performed By: #### L IPID, LIVER #### [facility] [address] [place] [address] Dr. Shobha Ruffin Cholesterol [Mass/Vol] 296 mg/dL Critically high <=200 [facility] Comment on above: Performed By: #### L IPID, LIVER #### [facility] [address] [place] [address] Dr. Shobha Ruffin Cholesterol in HDL [Mass/Vol] 102 mg/dL Critically high 40-60 [facility] Comment on above: Performed By: #### L IPID, LIVER #### [facility] [address] [place] [address] Dr. Shobha Ruffin Cholesterol in LDL [Mass/Vol] 178.6 mg/dL Normal [facility] Comment on above: Performed By: #### L IPID, LIVER #### [facility] [address] [place] [address] Dr. Shobha Ruffin Cholesterol.total /Cholesterol in HDL [Mass ratio] 2.9 {ratio} Normal [facility] Comment on above: Performed By: #### L IPID, LIVER #### [facility] [address] [place] [address] Dr. Shobha Ruffin HDL NORMAL > or = 60 mg/dl - LO W CARDIOVASCULAR RISK <40 mg/dl - HIGH CARDIOVASCULAR RISK Normal [facility] Comment on above: Performed By: #### L IPID, LIVER #### [facility] [address] [address] [address] Shobha Ruffin LDL CALC NORMAL SEE BELOW Normal [facility] Comment on above: Result Comment: <100 mg/dl OPTIMAL 100 - 129 mg/dl NEAR OR ABOVE OPTIMAL 130 - 159 mg/dl BORDERLINE HIGH 160 - 189 mg/dl HIGH >190 mg/dl VERY HIGH Performed By: #### L IPID, LIVER #### [facility] [address] [address] [address] Shobha Ruffin Triglyceride [Mass/Vol] 77 mg/dL Normal <=150 [facility] Comment on above: Performed By: #### L IPID, LIVER #### [facility] [address] [place] [address] Dr. Shobha Ruffin VLDL CALC 15.4 mg/dL Normal [facility] Comment on above: Performed By: #### L IPID, LIVER #### [facility] [address] [place] [address] Dr. Shobha Ruffin LIVER PROFILEon 05-04-2022 Albumin [Mass/Vol] 3.6 g/dL Normal 3.4-5.0 [facility] Comment on above: Performed By: #### L IPID, LIVER #### [facility] [address] [address] [address] Shobha Ruffin Albumin/Globulin [Mass ratio] 1.0 {ratio} Normal [facility] Comment on above: Performed By: #### L IPID, LIVER #### [facility] [address] [place] [address] Dr. Shobha Ruffin ALP [Catalytic activity/Vol] 58 U/L Normal 46-116 [facility] Comment on above: Performed By: #### L IPID, LIVER #### [facility] [address] [place] [address] Dr. Shobha Ruffin ALT [Catalytic activity/Vol] 20 U/L Normal 14-59 [facility] Comment on above: Performed By: #### L IPID, LIVER #### [facility] [address] [address] [address] Shobha Ruffin AST [Catalytic activity/Vol] 16 U/L Normal 15-37 [facility] Comment on above: Performed By: #### L IPID, LIVER #### [facility] [address] [address] [address] Shobha Ruffin BILI, CONJUGATED 0.1 mg/dL Normal 0.0-0.2 [facility] Comment on above: Performed By: #### L IPID, LIVER #### [facility] [address] [address] [address] Shobha Ruffin Bilirubin [Mass/Vol] 0.7 mg/dL Normal 0.2-1.0 [facility] Comment on above: Performed By: #### L IPID, LIVER #### [facility] [address] [place] [address] Dr. Shobha Ruffin Globulin (S) [Mass/Vol] 3.5 g/dL Normal [facility] Comment on above: Performed By: #### L IPID, LIVER #### [facility] [address] [address] [address] Shobha Ruffin Protein [Mass/Vol] 7.1 g/dL Normal 6.4-8.2 [facility] Comment on above: Performed By: #### L IPID, LIVER #### [facility] [address] [place] [address] Dr. Shobha Ruffin XR pre/post mri xrayon 03-22 XR pre/post mri xray [facility] [place] [address] MRI Report Signed Patient: Mary Goode MR#: [id number] : 1950 Acct:[id number] Age/Sex: 71 / F ADM Date: 03/22/22 Loc: [facility] Room: Type: [facility] [address] Attending Dr: Adan Gonzalez Copies to: Adan Gonzalez Ordering Provider: Adan Gonzalez Date of Service: 03/22/22 MR/MR cervical spine wo con: M54.2 ([id number]) XR/XR pre/post mri xray: NEED PRE/POST SKULL [...] Lona Rosas M.D.03/22/2022 3:03 PM Dictation Location: [place] [address] Transcribed By: [facility] 03/22/22 1503 Dictated By: Lona Rosas II, MD 03/22/22 1451 Signed By: 03/22/22 1503 Normal [facility] XR pre/post mri xrayon 02-10 XR pre/post mri xray [facility] [place] [address] MRI Report Signed Patient: Mary Goode MR#: [id number] : 1950 Acct:[id number] Age/Sex: 71 / F ADM Date: 02/10/22 Loc: [facility] Room: Type: [facility] Attending Dr: Imer Purcell MD Copies to: Imer Purcell MD Ordering Provider: Imer Purcell MD Date of Service: 02/10/22 MR/MR lumbar spine wo con: M54.16 ([id number]) XR/XR pre/post mri xray: M54.16 MR lumbar [...] Lona Rosas M.D.02/10/2022 6:13 PM Dictation Location: [place] [address] Transcribed By: JACKIE 02/10/221812 Dictated By: Lona Rsoas II, MD 02/10/221806 Signed By: 02/10/221812 [facility] XR skull <4Von 02-10-2022 XR skull <4V [place] [address] XRay Report Signed Patient: Mary Goode MR#: [id number] : 1950 Acct:[id number] Age/Sex: 71 / F ADM Date: 02/10/22 Loc: [facility] Room: Type: [facility] Attending Dr: Imer Purcell MD Copies to: [...] Lona Rosas M.D.02/10/2022 6:16 PM Dictation Location: [place] [address] Transcribed By: JACKIE 02/10/221815 Dictated By: Lona Rosas II, MD 02/10/221812 Signed By: 02/10/221815 [facility] CALCIUMon 02-08-2022 Calcium [Mass/Vol] 9.1 mg/dL Normal 8.5-10.1 [facility] Comment on above: Performed By: #### R ENAL, URIC, MG #### [facility] [address] [place] [address] Dr. Shobha Ruffin CREATININEon 02-08-2022 Creatinine [Mass/Vol] 0.95 mg/dL Normal 0.55-1.02 [facility] Comment on above: Performed By: #### O BSCRN #### [facility] [address] [place] [address] Dr. Shobha Ruffin EGFR-AF KYRGYZ >60 Normal >=60 [facility] Comment on above: Performed By: #### O BSCRN #### [facility] [address] [place] [address] Dr. Shobha Ruffin EGFR-NON AF KYRGYZ 58 mL/min/1.73m2 Critically low >=60 [facility] Comment on above: Performed By: #### O BSCRN #### [facility] [address] [place] [address] Dr. Shobha Ruffin OCC BLD IMMUNO SCREENon 01-08 OCCULT BLOOD Negative Normal NEGATIVE [facility] Comment on above: Performed By: #### O BSCRN #### [facility] [address] [place] [address] Dr. Shobha Ruffin T4, T3U, FTI LABCORPon 01-27 Free Thyroxine Index 2.2 Normal 1.2-4.9 [facility] Comment on above: Performed By: #### R ENAL, URIC, MG #### [facility] [address] [place] [address] Dr. Shobha Ruffin T3 Uptake 27 % Normal 24-39 [facility] Comment on above: Performed By: #### R ENAL, URIC, MG #### [facility] [address] [place] [address] Dr. Shobha Ruffin T4 [Mass/Vol] 8.0 ug/dL Normal 4.5-12.0 [facility] Comment on above: Performed By: #### R ENAL, URIC, MG #### [facility] [address] [place] [address] Dr. Shobha Ruffin CBC AUTO DIFFon 01-26-2022 BASO # 0.1 103/ul Normal 0.0-0.1 [facility] Comment on above: Performed By: #### R ENAL, URIC, MG #### [facility] [address] [place] [address] Dr. Shobha Ruffin Basophils/100 WBC (Bld) 0.9 % Normal 0.2-2.0 [facility] Comment on above: Performed By: #### R ENAL, URIC, MG #### [facility] [address] [place] [address] Dr. Shobha Ruffin EO # 0.3 103/ul Normal 0.0-0.7 [facility] Comment on above: Performed By: #### R ENAL, URIC, MG #### [facility] [address] [place] [address] Dr. Shobha Ruffin Eosinophils/100 WBC (Bld) 2.8 % Normal 0.9-7.0 [facility] Comment on above: Performed By: #### R ENAL, URIC, MG #### [facility] [address] [place] [address] Dr. Shobha Ruffin Erythrocyte distribution width (RBC) [Ratio] 13.6 % Normal 11.0-15.0 [facility] Comment on above: Performed By: #### R ENAL, URIC, MG #### [facility] [address] [place] [address] Dr. Shobha Ruffin Hematocrit (Bld) [Volume fraction] 35.4 % Critically low 36.0-48.0 [facility] Comment on above: Performed By: #### R ENAL, URIC, MG #### [facility] [address] [place] [address] Dr. Shobha Ruffin Hemoglobin (Bld) [Mass/Vol] 11.5 g/dL Critically low 12.0-16.0 [facility] Comment on above: Performed By: #### R ENAL, URIC, MG #### [facility] [address] [place], [place] [address] Dr. Shobha Ruffin IG # 0.04 10e3/ul Critically high 0.00-0.03 [facility] Comment on above: Performed By: #### R ENAL, URIC, MG #### [facility] [address] [place] [address] Dr. Shobha Ruffin IG % 0.4 % Normal 0.0-0.5 [facility] Comment on above: Performed By: #### R ENAL, URIC, MG #### [facility] [address] [place] [address] Dr. Shobha Ruffin LYMPH # 1.9 103/ul Normal 1.2-3.8 [facility] Comment on above: Performed By: #### R ENAL, URIC, MG #### [facility] [address] [place] [address] Dr. Shobha Ruffin Lymphocytes/100 WBC (Bld) 20.9 % Normal 20.5-60.0 [facility] Comment on above: Performed By: #### R ENAL, URIC, MG #### [facility] [address] [place] [address] Dr. Shobha Ruffin MANUAL DIFF REQ NO Normal [facility] Comment on above: Performed By: #### R ENAL, URIC, MG #### [facility] [address] [place] [address] Dr. Shobha Ruffin MCH (RBC) [Entitic mass] 29.4 pg Normal 26.7-34.0 [facility] Comment on above: Performed By: #### R ENAL, URIC, MG #### [facility] [address] [place] [address] Dr. Shobha Ruffin MCHC (RBC) [Mass/Vol] 32.5 g/dL Normal 29.9-35.2 [facility] Comment on above: Performed By: #### R ENAL, URIC, MG #### [facility] [address] [place] [address] Dr. Shobha Rfufin MCV (RBC) [Entitic vol] 90.5 fL Normal 81.0-99.0 [facility] Comment on above: Performed By: #### R ENAL, URIC, MG #### [facility] [address] [place] [address] Dr. Shobha Ruffin MONO # 0.8 103/ul Normal 0.3-0.8 [facility] Comment on above: Performed By: #### R ENAL, URIC, MG #### [facility] [address] [place] [address] Dr. Shobha Ruffin Monocytes/100 WBC (Bld) 9.2 % Normal 1.7-12.0 [facility] Comment on above: Performed By: #### R ENAL, URIC, MG #### [facility] [address] [place] [address] Dr. Shobha Ruffin NEUT # 5.9 103/ul Normal 1.4-6.5 [facility] Comment on above: Performed By: #### R ENAL, URIC, MG #### [facility] [address] [place] [address] Dr. Shobha Ruffin Neutrophils/100 WBC (Bld) 65.8 % Normal 43.0-75.0 [facility] Comment on above: Performed By: #### R ENAL, URIC, MG #### [facility] [address] [place] [address] Dr. Shobha Ruffin Platelet mean volume (Bld) [Entitic vol] 8.9 fL Critically low 9.5-13.5 [facility] Comment on above: Performed By: #### R ENAL, URIC, MG #### [facility] [address] [place] [address] Dr. Shobha Ruffin PLT 346 103/ul Normal 150-450 [facility] Comment on above: Performed By: #### R ENAL, URIC, MG #### [facility] [address] [place] [address] Dr. Shobha Ruffin RBC 3.91 106/ul Critically low 4.20-5.40 [facility] Comment on above: Performed By: #### R ENAL, URIC, MG #### [facility] [address] [place] [address] Dr. Shobha Ruffin WBC 8.9 103/ul Normal 4.0-11.0 [facility] Comment on above: Performed By: #### R ENAL, URIC, MG #### [facility] [address] [place] [address] Dr. Shobha Ruffin GLYCOHEMOGLOBIN A1Con 2021 ADA RECOMMENDATION SEE BELOW Normal [facility] Comment on above: Result Comment: ADA RECOMMENDED LIMIT 4.0 - 6.0 ADA THERAPEUTIC TARGET < 7.0 ACTION SUGGESTED > 7.0 Performed By: #### O BSCRN #### [facility] [address] [place] [address] Dr. Shobha Ruffin Glucose [Mass/Vol] 123 mg/dL Normal [facility] Comment on above: Performed By: #### O BSCRN #### [facility] [address] [place] [address] Dr. Shobha Ruffin HbA1c (Bld) [Mass fraction] 5.9 % Normal 4.5-6.2 [facility] Comment on above: Performed By: #### O BSCRN #### [facility] [address] [place] [address] Dr. Shobha Ruffin IRONon 01-26-2022 Iron [Mass/Vol] 97.0 ug/dL Normal 50.0-170.0 [facility] Comment on above: Performed By: #### R ENAL, URIC, MG #### [facility] [address] [place] [address] Dr. Shobha Ruffin LIPID PROFILEon 01-26-2022 CHOL-HDL RATIO NORM SEE BELOW Normal [facility] Comment on above: Result Comment: 3.3 - 4.4 LOW RISK 4.4 - 7.1 AVERAGE RISK 7.1 - 11.0 MODERATE RISK >11.0 HIGH RISK Performed By: #### R ENAL, URIC, MG #### [facility] [address] [place] [address] Dr. Shobha Ruffin Cholesterol [Mass/Vol] 284 mg/dL Critically high <=200 [facility] Comment on above: Performed By: #### R ENAL, URIC, MG #### [facility] [address] [place] [address] Dr. Shobha Ruffin Cholesterol in HDL [Mass/Vol] 84 mg/dL Critically high 40-60 [facility] Comment on above: Performed By: #### R ENAL, URIC, MG #### [facility] [address] [place] [address] [address] Shobha Ruffin Cholesterol in LDL [Mass/Vol] 184.6 mg/dL Normal [facility] Comment on above: Performed By: #### R ENAL, URIC, MG #### [facility] [address] [place] [address] Dr. Shobha Ruffin Cholesterol.total /Cholesterol in HDL [Mass ratio] 3.4 {ratio} Normal [facility] Comment on above: Performed By: #### R ENAL, URIC, MG #### [facility] [address] [place] [address] Dr. Shobha Ruffin HDL NORMAL > or = 60 mg/dl - LO W CARDIOVASCULAR RISK <40 mg/dl - HIGH CARDIOVASCULAR RISK Normal [facility] Comment on above: Performed By: #### R ENAL, URIC, MG #### [facility] [address] [place] [address] Dr. Shobha Ruffin LDL CALC NORMAL SEE BELOW Normal [facility] Comment on above: Result Comment: <100 mg/dl OPTIMAL 100 - 129 mg/dl NEAR OR ABOVE OPTIMAL 130 - 159 mg/dl BORDERLINE HIGH 160 - 189 mg/dl HIGH >190 mg/dl VERY HIGH Performed By: #### R ENAL, URIC, MG #### [facility] [address] [place] [address] Dr. Shobha Ruffin Triglyceride [Mass/Vol] 77 mg/dL Normal <=150 [facility] Comment on above: Performed By: #### R ENAL, URIC, MG #### [facility] [address] [place] [address] Dr. Shobha Ruffin VLDL CALC 15.4 mg/dL Normal [facility] Comment on above: Performed By: #### R ENAL, URIC, MG #### [facility] [address] [place] [address] Dr. Shobha Ruffin PROF 14(COMP METB)on 09-20-2 022 Albumin [Mass/Vol] 3.5 g/dL Normal 3.4-5.0 [facility] Comment on above: Performed By: #### R ENAL, URIC, MG #### [facility] [address] [place] [address] Dr. Shobha Ruffin Albumin/Globulin [Mass ratio] 1.1 {ratio} Normal [facility] Comment on above: Performed By: #### R ENAL, URIC, MG #### [facility] [address] [place] [address] Dr. Shobha Ruffin ALP [Catalytic activity/Vol] 79 U/L Normal 46-116 [facility] Comment on above: Performed By: #### R ENAL, URIC, MG #### [facility] [address] [place] [address] Dr. Shobha Ruffin ALT [Catalytic activity/Vol] 28 U/L Normal 14-59 [facility] Comment on above: Performed By: #### R ENAL, URIC, MG #### [facility] [address] [place] [address] Dr. Shobha uRffin Anion gap [Moles/Vol] 9.3 mmol/L Normal [facility] Comment on above: Performed By: #### R ENAL, URIC, MG #### [facility] [address] [place] [address] Dr. Shobha Ruffin AST [Catalytic activity/Vol] 12 U/L Critically low 15-37 [facility] Comment on above: Performed By: #### R ENAL, URIC, MG #### [facility] [address] [place] [address] Dr. Shobha Ruffin Bilirubin [Mass/Vol] 0.6 mg/dL Normal 0.2-1.0 [facility] Comment on above: Performed By: #### R ENAL, URIC, MG #### [facility] [address] [place] [address] Dr. Shobha Ruffin Calcium [Mass/Vol] 9.0 mg/dL Normal 8.5-10.1 [facility] Comment on above: Performed By: #### R ENAL, URIC, MG #### [facility] [address] [place] [address] [address] Shobha Ruffin Chloride [Moles/Vol] 103 mmol/L Normal 98-107 [facility] Comment on above: Performed By: #### R ENAL, URIC, MG #### [facility] [address] [place] [address] Dr. Shobha Ruffin CO2 [Moles/Vol] 28.9 mmol/L Normal 21.0-32.0 [facility] Comment on above: Performed By: #### R ENAL, URIC, MG #### [facility] [address] [place] [address] [address] Shobha Ruffin Creatinine [Mass/Vol] 1.02 mg/dL Normal 0.55-1.02 [facility] Comment on above: Performed By: #### R ENAL, URIC, MG #### [facility] [address] [place] [address] Dr. Shobha Ruffin EGFR-AF KYRGYZ >60 Normal >=60 [facility] Comment on above: Performed By: #### R ENAL, URIC, MG #### [facility] [address] [place] [address] Dr. Shobha Ruffin EGFR-NON AF KYRGYZ 54 mL/min/1.73m2 Critically low >=60 [facility] Comment on above: Performed By: #### R ENAL, URIC, MG #### [facility] [address] [place] [address] Dr. Shobha Ruffin Globulin (S) [Mass/Vol] 3.3 g/dL Normal [facility] Comment on above: Performed By: #### R ENAL, URIC, MG #### [facility] [address] [place] [address] Dr. Shobha Ruffin Glucose [Mass/Vol] 100 mg/dL Normal 74-106 [facility] Comment on above: Performed By: #### R ENAL, URIC, MG #### [facility] [address] [place] [address] Dr. Shobha Ruffin Potassium [Moles/Vol] 4.2 mmol/L Normal 3.5-5.1 [facility] Comment on above: Performed By: #### R ENAL, URIC, MG #### [facility] [address] [place] [address] [address] Shobha Ruffin Protein [Mass/Vol] 6.8 g/dL Normal 6.4-8.2 [facility] Comment on above: Performed By: #### R ENAL, URIC, MG #### [facility] [address] [place] [address] Dr. Shobha Ruffin Sodium [Moles/Vol] 137 mmol/L Normal 136-145 [facility] Comment on above: Performed By: #### R ENAL, URIC, MG #### [facility] [address] [place] [address] Dr. Shobha Ruffin Urea nitrogen [Mass/Vol] 20.0 mg/dL Critically high 7.0-18.0 [facility] Comment on above: Performed By: #### R ENAL, URIC, MG #### [facility] [address] [place] [address] Dr. Shobha Ruffin Urea nitrogen/Creatini ne [Mass ratio] 19.6 mg/mg Normal [facility] Comment on above: Performed By: #### R ENAL, URIC, MG #### [facility] [address] [place] [address] Dr. Shobha Ruffin TSHon 01-26-2022 TSH 0.649 uIU/mL Normal 0.358-3.74 0 [facility] Comment on above: Performed By: #### R ENAL, URIC, MG #### [facility] [address] [place] [address] Dr. Shobha Ruffin XR LSPINE MIN 4 [...] ROSA BELLO Date: 2022-01-26 10:35 Normal [facility] Covid-19 PCR (CVDTB)on SARS-CoV-2 (COVID-19) RNA CONRADO+probe Ql (Unsp spec) Detected Critically abnormal NOT DETECTED [facility] Comment on above: Result Comment: This test is not yet approved or cleared by the [place] FDA. When there are no FDA-approved or cleared tests available, and other criteria are met, FDA can make tests available under an emergency access mechanism called an Emergency Use Authorization (EUA). The EUA for this test is supported by the Crisis Nurse of Health and Human Service's (HHS's) declaration [...] longer be used). Performed By: #### C [facility] #### [facility] [address] [place] [address] Dr. Shobha Jaramillo 12-23-2021 CNOV Office Visit ([id number] ) MARY GOODE ([id number]) 1950 [facility] Date Time Provider Department 12/23/21 10:00 AM FREDA POP [id number] During your visit today, we recorded the following information about you: Temperature Pulse Blood pressure Weight 97.2 degrees 58/minute 147/55 73.9 kg Height 1.6 m Freda PopPAWEL.COLLARETTE SEPARATOR 12/23/2021 10:45 AM Signed GENERAL SURGERY CLINIC FOLLOW UP NOTE Clinic Date: 12/23/2021 Mary Goode, 71 year old [address] [facility] [address] CHIEF COMPLAINT: Patient presents with: Post Op [...] Freda Pop APRN.CNP General Surgery Digestive Disease [place] December 22, 2021 Joan Grimaldo MA 12/23/2021 [...] activity as tolerated Referring Provider: ATIF MENDEZ [[id number]] Allergies As of Date: 12/23/2021 (No Known Allergies) Date Reviewed: 12/23/2021 Reviewed by: Freda Pop APRN.COLLARETTE SEPARATOR - Fully Assessed Reason for Visit: (more content not included)... Normal [facility] PTH INTACTon 11-27-2021 PTH, Intact 36 pg/mL Normal 15-65 [facility] Comment on above: Performed By: #### P THINT #### [facility] [address] [place] [address] Dr. Shobha Ruffin FERRITINon 11-26-2021 Ferritin [Mass/Vol] 122.0 ng/mL Normal 8.0-252.0 [facility] Comment on above: Performed By: #### O BSCRN #### [facility] [address] [place] [address] Dr. Shobha Ruffin HEMOGRAM AND PLATELon 2021 Hematocrit (Bld) [Volume fraction] 36.0 % Normal 36.0-48.0 [facility] Comment on above: Performed By: #### H H #### [facility] [address] [place] [address] Dr. Shobha Ruffin Hemoglobin (Bld) [Mass/Vol] 11.8 g/dL Critically low 12.0-16.0 [facility] Comment on above: Performed By: #### H H #### [facility] [address] [place] [address] Dr. Shobha Ruffin MCH (RBC) [Entitic mass] 29.7 pg Normal 26.7-34.0 [facility] Comment on above: Performed By: #### H H #### [facility] [address] [place] [address] Dr. Shobha Ruffin MCHC (RBC) [Mass/Vol] 32.8 g/dL Normal 29.9-35.2 [facility] Comment on above: Performed By: #### H H #### [facility] [address] [place] [address] [address] Shobha Ruffin MCV (RBC) [Entitic vol] 90.7 fL Normal 81.0-99.0 [facility] Comment on above: Performed By: #### H H #### [facility] [address] [place] [address] Dr. Shobha Ruffin PLT 417 103/ul Normal 150-450 [facility] Comment on above: Performed By: #### H H #### [facility] [address] [place] [address] Dr. Shobha Ruffin RBC 3.97 106/ul Critically low 4.20-5.40 [facility] Comment on above: Performed By: #### H H #### [facility] [address] [place] [address] Dr. Shobha Ruffin WBC 7.9 103/ul Normal 4.0-11.0 [facility] Comment on above: Performed By: #### H H #### [facility] [address] [place] [address] Dr. Shobha Ruffin IRON AND TIBCon 11-26-2021 % SATURATION 28.2 % Normal [facility] Comment on above: Performed By: #### O BSCRN #### [facility] [address] [place] [address] Dr. Shobha Ruffin Iron [Mass/Vol] 83.0 ug/dL Normal 50.0-170.0 [facility] Comment on above: Performed By: #### O BSCRN #### [facility] [address] [place] [address] Dr. Shobha Ruffin TIBC DIRECT 294.0 ug/dL Normal 250.0-450. 0 [facility] Comment on above: Performed By: #### O BSCRN #### [facility] [address] [place] [address] Dr. Shobha Ruffin MAGNESIUMon 11-26-2021 Magnesium [Mass/Vol] 1.8 mg/dL Normal 1.8-2.4 [facility] Comment on above: Performed By: #### R ENAL, URIC, MG #### [facility] [address] [place] [address] Dr. Shobha Ruffin RENAL FUNCTION PANELon 11-26 Albumin [Mass/Vol] 3.6 g/dL Normal 3.4-5.0 [facility] Comment on above: Performed By: #### R ENAL, URIC, MG #### [facility] [address] [place] [address] Dr. Shobha Ruffin Calcium [Mass/Vol] 9.3 mg/dL Normal 8.5-10.1 [facility] Comment on above: Performed By: #### R ENAL, URIC, MG #### [facility] [address] [place] [address] Dr. Shobha Ruffin Chloride [Moles/Vol] 99 mmol/L Normal 98-107 [facility] Comment on above: Performed By: #### R ENAL, URIC, MG #### [facility] [address] [place] [address] Dr. Shobha Ruffin CO2 [Moles/Vol] 28.6 mmol/L Normal 21.0-32.0 [facility] Comment on above: Performed By: #### R ENAL, URIC, MG #### [facility] [address] [place] [address] Dr. Shobha Ruffin Creatinine [Mass/Vol] 1.18 mg/dL Critically high 0.55-1.02 [facility] Comment on above: Performed By: #### R ENAL, URIC, MG #### [facility] [address] [place] [address] Dr. Shobha Ruffin EGFR-AF KYRGYZ 55 mL/min/1.73m2 Critically low >=60 [facility] Comment on above: Performed By: #### R ENAL, URIC, MG #### [facility] [address] [place] [address] Dr. Shobha Ruffin EGFR-NON AF KYRGYZ 45 mL/min/1.73m2 Critically low >=60 [facility] Comment on above: Performed By: #### R ENAL, URIC, MG #### [facility] [address] [place] [address] Dr. Shobha Ruffin Glucose [Mass/Vol] 90 mg/dL Normal 74-106 [facility] Comment on above: Performed By: #### R ENAL, URIC, MG #### [facility] [address] [place] [address] Dr. Shobha Ruffin Phosphate [Mass/Vol] 4.8 mg/dL Critically high 2.6-4.7 [facility] Comment on above: Performed By: #### R ENAL, URIC, MG #### [facility] [address] [place] [address] Dr. Shobha Ruffin Potassium [Moles/Vol] 4.1 mmol/L Normal 3.5-5.1 [facility] Comment on above: Performed By: #### R ENAL, URIC, MG #### [facility] [address] [place] [address] Dr. Shobha Ruffin Sodium [Moles/Vol] 136 mmol/L Normal 136-145 [facility] Comment on above: Performed By: #### R ENAL, URIC, MG #### [facility] [address] [place] [address] Dr. Shobha Ruffin Urea nitrogen [Mass/Vol] 20.0 mg/dL Critically high 7.0-18.0 [facility] Comment on above: Performed By: #### R ENAL, URIC, MG #### [facility] [address] [place] [address] Dr. Shobha Ruffin UA RANDOM W/MICROSCOPICon BACTERIA TRACE Abnormal NONE SEEN [facility] Comment on above: Performed By: #### R ENAL, URIC, MG #### [facility] [address] [place] [address] Dr. Shobha Ruffin Bilirubin Ql (U) Negative Normal NEGATIVE [facility] Comment on above: Performed By: #### R ENAL, URIC, MG #### [facility] [address] [place] [address] Dr. Shobha Ruffin CAST SEEN Abnormal NONE SEEN [facility] Comment on above: Performed By: #### R ENAL, URIC, MG #### [facility] [address] [place] [address] Dr. Shobha Ruffin Clarity (U) CLEAR Normal CLEAR [facility] Comment on above: Performed By: #### R ENAL, URIC, MG #### [facility] [address] [place] [address] Dr. Shobha Ruffin Color (U) YELLOW Normal YELLOW [facility] Comment on above: Performed By: #### R ENAL, URIC, MG #### [facility] [address] [place] [address] Dr. Shobha Ruffin Crystals LM Nom (Urine sed) NONE SEEN Normal NONE SEEN [facility] Comment on above: Performed By: #### R ENAL, URIC, MG #### [facility] [address] [place] [address] Dr. Shobha Ruffin Epithelial cells LM Ql (Urine sed) FEW Abnormal NONE SEEN /RARE [facility] Comment on above: Performed By: #### R ENAL, URIC, MG #### [facility] [address] [place] [address] Dr. Shobha Ruffin Glucose Ql (U) Negative Normal NEGATIVE [facility] Comment on above: Performed By: #### R ENAL, URIC, MG #### [facility] [address] [place] [address] Dr. Shobha Ruffin Hemoglobin Ql (U) Negative Normal NEGATIVE [facility] Comment on above: Performed By: #### R ENAL, URIC, MG #### [facility] [address] [place] [address] Dr. Shobha Ruffin HYALINE CAST RARE Normal [facility] Comment on above: Performed By: #### R ENAL, URIC, MG #### [facility] [address] [place] [address] Dr. Shobha Ruffin Ketones Ql (U) TRACE Abnormal NEGATIVE [facility] Comment on above: Performed By: #### R ENAL, URIC, MG #### [facility] [address] [place] [address] Dr. Shobha Ruffin LEUKOCYTES TRACE Abnormal NEGATIVE [facility] Comment on above: Performed By: #### R ENAL, URIC, MG #### [facility] [address] [place] [address] Dr. Shobha Ruffin MUCOUS TRACE Abnormal NONE SEEN [facility] Comment on above: Performed By: #### R ENAL, URIC, MG #### [facility] [address] [place] [address] Dr. Shobha Ruffin Nitrite Ql (U) Negative Normal NEGATIVE [facility] Comment on above: Performed By: #### R ENAL, URIC, MG #### [facility] [address] [place] [address] Dr. Shobha Ruffin pH (U) 7.0 [pH] Normal 5-9 [facility] Comment on above: Performed By: #### R ENAL, URIC, MG #### [facility] [address] [place] [address] Dr. Shobha Ruffin RBC 0-2 Normal 0-2 [facility] Comment on above: Performed By: #### R ENAL, URIC, MG #### [facility] [address] [place] [address] Dr. Shobha Ruffin SPEC GRAVITY 1.015 Normal 1.005-<=1. 025 [facility] Comment on above: Performed By: #### R ENAL, URIC, MG #### [facility] [address] [place] [address] Dr. Shobha Ruffin UA PROTEIN Negative Normal NEGATIVE/ TRACE [facility] Comment on above: Performed By: #### R ENAL, URIC, MG #### [facility] [address] [place] [address] Dr. Shobha Ruffin Urobilinogen Qn (U) 1.0 {Raul'U}/dL Normal 0.2 - 1.0 [facility] Comment on above: Performed By: #### R ENAL, URIC, MG #### [facility] [address] [place] [address] Dr. Shobha Ruffin WBC 2-5 Abnormal NONE SEEN [facility] Comment on above: Performed By: #### R ENAL, URIC, MG #### [facility] [address] [place] [address] Dr. Shobha Ruffin URIC ACID SERUMon 11-26-2021 Urate [Mass/Vol] 3.2 mg/dL Normal 2.6-6.0 [facility] Comment on above: Performed By: #### R ENAL, URIC, MG #### [facility] [address] [place] [address] Dr. Shobha Ruffin URINE T PROTEIN CREAT RATIOo n 11-26-2021 Protein (U) [Mass/Vol] 24.2 mg/dL Critically high <=12.0 [facility] Comment on above: Performed By: #### R ENAL, URIC, MG #### [facility] [address] [address] [address] Shobha Ruffin UR PROT CREAT RAT 0.16 Normal [facility] Comment on above: Performed By: #### R ENAL, URIC, MG #### [facility] [address] [place] [address] Dr. Shobha Ruffin URINE CREAT 152.18 mg/dL Normal 20.00-300. 00 [facility] Comment on above: Performed By: #### R ENAL, URIC, MG #### [facility] [address] [place] [address] Dr. Shobha Ruffin VITAMIN D 25 OHon 11-26-2021 VIT D 25-OH 38.4 ng/mL Normal [facility] Comment on above: Performed By: #### O BSCRN #### [facility] [address] [place] [address] Dr. Shobha Ruffin VIT D RANGES SEE BELOW Normal [facility] Comment on above: Result Comment: <20 ng/mL Vit D deficient 20 - <30 ng/mL Vit D insufficient 30 - 100 ng/mL Vit D sufficient >100 ng/mL Potential Toxicity Performed By: #### O BSCRN #### [facility] [address] [place] [address] Dr. Shobha Ruffin Basic metabolic 2000 panelon 11-17-2021 Anion gap [Moles/Vol] 14 mmol/L Normal 9-18 [facility] Comment on above: Order Comment: Speci men Type: BLOOD SPECIMEN Ordering Facility: [facility] Address: [address] [place] [id number] Performed By: #### 1 9123-9, 91275-7, 2776-05 #### [facility] CLIA [id number] [address] [place] [address] [place] Calcium [Mass/Vol] 9.6 mg/dL Normal 8.5-10.2 [facility] Comment on above: Order Comment: Speci men Type: BLOOD SPECIMEN Ordering Facility: [facility] Address: [address] [place] [address] Performed By: #### 1 9123-9, 08329-5, 2776-05 #### [facility] CLIA [id number] [address] [place] [address] [place] Chloride [Moles/Vol] 95 mmol/L Low 97-105 [facility] Comment on above: Order Comment: Speci men Type: BLOOD SPECIMEN Ordering Facility: [facility] Address: [address] [place] [address] Performed By: #### 1 91239, , 2776-05 #### [facility] CLIA [id number] [address] [place] [address] [place] CO2 [Moles/Vol] 23 mmol/L Normal 22-30 [facility] Comment on above: Order Comment: Speci men Type: BLOOD SPECIMEN Ordering Facility: [facility] Address: [address] [place] [address] Performed By: #### 1 91239, , 2776-05 #### [facility] CLIA [id number] [address] [place] [address] [place] Creatinine [Mass/Vol] 0.91 mg/dL Normal 0.58-0.96 [facility] Comment on above: Order Comment: Speci men Type: BLOOD SPECIMEN Ordering Facility: [facility] Address: [address] [place] [address] Performed By: #### 1 9123-9, 12578-0, 2776-05 #### [facility] CLIA [id number] [address] [place] [address] [place] ESTIMATED GLOMERULAR FILTRATION RATE 69 mL/min/1.73m??? Normal >=60 [facility] Comment on above: Order Comment: Param jarquin Type: BLOOD SPECIMEN Ordering Facility: [facility] Address: [address] [place] [address] Result Comment: Gabriela mated Glomerular Filtration Rate [...] actual GFR. Performed By: #### 1 9123-9, 73219-2, 2777- #### [facility] CLIA [id number] [place] [address] [place] Glucose [Mass/Vol] 110 mg/dL High 74-99 [facility] Comment on above: Order Comment: Param jarquin Type: BLOOD SPECIMEN Ordering Facility: [facility] Address: [address] [address] Result Comment: The [place] [employer] (ADA) provides guidance for cutoff [...] Standards of Medical Care in Diabetes 2016, [place] [employer]. Diabetes Care. 2016.39(Suppl 1). Performed By: #### 1 9123-9, 94309-8, 2777- #### [facility] CLIA [id number] [place] [address] [place] Potassium [Moles/Vol] 3.6 mmol/L Low 3.7-5.1 [facility] Comment on above: Order Comment: Param jarquin Type: BLOOD SPECIMEN Ordering Facility: [facility] Address: [address] [place] [address] Performed By: #### 1 9123-9, 80498-7, 2776-05 #### [facility] CLIA [id number] [address] [place] [address] [place] Sodium [Moles/Vol] 132 mmol/L Low 136-144 [facility] Comment on above: Order Comment: Speci men Type: BLOOD SPECIMEN Ordering Facility: [facility] Address: [address] [place] [address] Performed By: #### 1 9123-9, 02349-1, 2776-05 #### [facility] CLIA [id number] [address] [place] [address] [place] Urea nitrogen [Mass/Vol] 13 mg/dL Normal 7-21 [facility] Comment on above: Order Comment: Speci men Type: BLOOD SPECIMEN Ordering Facility: [facility] Address: [address] [place] [address] Performed By: #### 1 9123-9, 29692-2, 2776-05 #### [facility] CLIA [id number] [address] [place] [address] [place] CBC W Auto Differential pane l (Bld)on 11-17-2021 Basophils (Bld) [#/Vol] 10*3/uL Normal <0.11 [facility] Comment on above: Order Comment: Speci men Type: BLOOD SPECIMENOrdering Facility: [facility] Address: [address] [place] [address] Performed By: #### 5 7021-8 ####[facility] [id number] [place] [address] [place] Basophils/100 WBC (Bld) 0.1 % Normal [facility] Comment on above: Order Comment: Speci men Type: BLOOD SPECIMENOrdering Facility: [facility] Address: [address] [place] [address] Performed By: #### 5 7021-8 ####[facility] [id number] [address] [place] Differential cell count method Nom (Bld) Auto Normal [facility] Comment on above: Order Comment: Speci men Type: BLOOD SPECIMENOrdering Facility: [facility] Address: [address] [place] [address] Performed By: #### 5 7021-8 ####[facility] [id number] [place] [address] [place] Eosinophils (Bld) [#/Vol] 10*3/uL Normal <0.46 [facility] Comment on above: Order Comment: Speci men Type: BLOOD SPECIMENOrdering Facility: [facility] Address: [address] [place] [address] Performed By: #### 5 7021-8 ####[facility] [id number] [address] [place] Eosinophils/100 WBC (Bld) 0.0 % Normal [facility] Comment on above: Order Comment: Speci men Type: BLOOD SPECIMENOrdering Facility: [facility] Address: [address] [place] [address] Performed By: #### 5 7021-8 ####[facility] [id number] [address] [place] Erythrocyte distribution width (RBC) [Ratio] 12.6 % Normal 11.5-15.0 [facility] Comment on above: Order Comment: Speci men Type: BLOOD SPECIMENOrdering Facility: [facility] Address: [address] [place] [address] Performed By: #### 5 7021-8 ####[facility] [id number] [address] [place] Hematocrit (Bld) [Volume fraction] 39.9 % Normal 36.0-46.0 [facility] Comment on above: Order Comment: Speci men Type: BLOOD SPECIMENOrdering Facility: [facility] Address: [address] [place] [address] Performed By: #### 5 7021-8 ####[facility] [id number] [place] [address] [place] Hemoglobin (Bld) [Mass/Vol] 13.4 g/dL Normal 11.5-15.5 [facility] Comment on above: Order Comment: Speci men Type: BLOOD SPECIMENOrdering Facility: [facility] Address: [address] [place] [address] Performed By: #### 5 7021-8 ####[facility] [id number] [address] [place] IMMATURE GRAN % 0.4 % Normal [facility] Comment on above: Order Comment: Speci men Type: BLOOD SPECIMENOrdering Facility: [facility] Address: [address] [place] [address] Performed By: #### 5 7021-8 ####[facility] [id number] [address] [place] IMMATURE GRAN ABS 0.04 k/uL Normal <0.10 [facility] Comment on above: Order Comment: Speci men Type: BLOOD SPECIMENOrdering Facility: [facility] Address: [address] [place] [address] Performed By: #### 5 7021-8 ####[facility]ORYCLIA [id number] [address] [place] Lymphocytes (Bld) [#/Vol] 1.25 10*3/uL Normal 1.00-4.00 [facility] Comment on above: Order Comment: Speci men Type: BLOOD SPECIMENOrdering Facility: [facility] Address: [address] [place] [address] Performed By: #### 5 7021-8 ####[facility]ORYCLIA [id number] [address] [place] Lymphocytes/100 WBC (Bld) 11.6 % Normal [facility] Comment on above: Order Comment: Speci men Type: BLOOD SPECIMENOrdering Facility: [facility] Address: [address] [place] [address] Performed By: #### 5 7021-8 ####[facility]ORYCLIA [id number] [address] [place] MCH (RBC) [Entitic mass] 29.4 pg Normal 26.0-34.0 [facility] Comment on above: Order Comment: Speci men Type: BLOOD SPECIMENOrdering Facility: [facility] Address: [address] [place] [address] Performed By: #### 5 7021-8 ####[facility]ORYCLIA [id number] [address] [place] MCHC (RBC) [Mass/Vol] 33.6 g/dL Normal 30.5-36.0 [facility] Comment on above: Order Comment: Speci men Type: BLOOD SPECIMENOrdering Facility: [facility] Address: [address] [place] [address] Performed By: #### 5 7021-8 ####[facility]ATORYCLIA [id number] [address] MCV (RBC) [Entitic vol] 87.5 fL Normal 80.0-100.0 [facility] Comment on above: Order Comment: Speci men Type: BLOOD SPECIMENOrdering Facility: [facility] Address: [address] [place] [address] Performed By: #### 5 7021-8 ####[facility] LABORATORYCLIA [id number] [place] [address] [place] [facility] [place] Monocytes (Bld) [#/Vol] 1.20 10*3/uL High <0.87 [facility] Comment on above: Order Comment: Speci men Type: BLOOD SPECIMENOrdering Facility: [facility] Address: [address] [place] [address] Performed By: #### 5 7021-8 ####[facility] [id number] [address] Monocytes/100 WBC (Bld) 11.1 % Normal [facility] Comment on above: Order Comment: Speci men Type: BLOOD SPECIMENOrdering Facility: [facility] Address: [address] [place] [address] Performed By: #### 5 7021-8 ####[facility]ORATORYCLIA [id number] [place] [address] [place] Neutrophils (Bld) [#/Vol] 8.32 10*3/uL High 1.45-7.50 [facility] Comment on above: Order Comment: Speci men Type: BLOOD SPECIMENOrdering Facility: [facility] Address: [address] [place] [address] Performed By: #### 5 7021-8 ####[facility]ATORYCLIA [id number] [place] [address] [place] Neutrophils/100 WBC (Bld) 76.8 % Normal [facility] Comment on above: Order Comment: Speci men Type: BLOOD SPECIMENOrdering Facility: [facility] Address: [address] [place] [address] Performed By: #### 5 7021-8 ####[facility]ORATORYCLIA [id number] [place] [address] [place] Nucleated RBC (Bld) [#/Vol] 10*3/uL Normal <0.01 [facility] Comment on above: Order Comment: Speci men Type: BLOOD SPECIMENOrdering Facility: [facility] Address: [address] [place] [address] Performed By: #### 5 7021-8 ####[facility]ORYCLIA [id number] [place] [address] [place] Nucleated RBC/100 WBC (Bld) [Ratio] 0.0 /100 WBC Normal [facility] Comment on above: Order Comment: Speci men Type: BLOOD SPECIMENOrdering Facility: [facility] Address: [address] [place] [address] Performed By: #### 5 7021-8 ####[facility]ORATORYCLIA [id number] [place] [address] [place] Platelet mean volume (Bld) [Entitic vol] 9.6 fL Normal 9.0-12.7 [facility] Comment on above: Order Comment: Speci men Type: BLOOD SPECIMENOrdering Facility: [facility] Address: [address] [place] [address] Performed By: #### 5 7021-8 ####[facility] [id number] [address] Platelets (Bld) [#/Vol] 333 10*3/uL Normal 150-400 [facility] Comment on above: Order Comment: Speci men Type: BLOOD SPECIMENOrdering Facility: [facility] Address: [address] [place] [address] Performed By: #### 5 7021-8 ####[facility] [id number] [address] RBC (Bld) [#/Vol] 4.56 10*6/uL Normal 3.90-5.20 [facility] Comment on above: Order Comment: Speci men Type: BLOOD SPECIMENOrdering Facility: [facility] Address: [address] [place] [address] Performed By: #### 5 7021-8 ####[facility]IA [id number] [address] [id number] [facility] WBC (Bld) [#/Vol] 10.82 10*3/uL Normal 3.70-11.00 [facility] Comment on above: Order Comment: Speci men Type: BLOOD SPECIMENOrdering Facility: [facility] Address: [address] [place] [address] Performed By: #### 5 7021-8 ####[facility]ORY[facility] [id number] [address] [place] [id number] [facility] CNDSon 11-17-2021 CNDS HNO ID: [id number] Author: Zhane Rasmussen MD Service: General Surgery Author Type: Resident Type: Discharge Summary Filed: 11/17/2021 1:01 PM Note Text: Attestation signed by Atif Mendez MD at 11/19/2021 12:38 PM DISCHARGE SUMMARY PATIENT NAME: Mary Goode ADMISSION DATE: 11/16/2021 DISCHARGE DATE: 11/17/2021 ATTENDING PHYSICIAN: Atif Mendez MD Code Status: Not on file Highest [...] performed HOSPITAL COURSE: You were admitted to [facility] on 11/16/2021 to undergo the above listed [...] MG TA (more content not included)... Normal [facility] Magnesium SerPl-mCncon 11-17 Magnesium [Mass/Vol] 1.8 mg/dL Normal 1.7-2.3 [facility] Comment on above: Order Comment: Speci men Type: BLOOD SPECIMENOrdering Facility: [facility] Address: [address] [place] [address] Performed By: #### 1 9123-9, 64978-4, 2777-1 ####[facility]IA [id number] [address] [facility] NURSING PROGon 11-17-2021 NURSING PROG HNO ID: [id number] Author: Zakia Champagne RN Service: Nursing Author Type: Registered Nurse Type: Nursing Progress Note Filed: 11/17/2021 10:17 AM Note Text: Nursing Progress Note Patient Name: Mary Goode Patient Location: [address] [place] [address] [address] ____ Daily Note: 0830: Pt AANDOx3. VSS. RA. Pt up with standby assist to the bathroom to void. Pt up and ambulated in the halls, standby, steady gait. Abdomen tender, bowel sounds hypoactive, no flatus yet. No complaints of nausea. Diet advanced to clear liquids. Lap sites seed potato cutter with glue. Pain 3/10, manageable at this time. Encouraged to use IC. Call light in reach. This note was completed by: Zakia Champagne [facility] PT EDon 11-17-2021 PT ED HNO ID: [id number] Author: Kat Pitt DTR Service: Nutrition Therapy Author Type: Chemical Maker Type: Patient Education Filed: 11/17/2021 11:12 AM [...] November 17, 2021 TIME: 11:08 AM PAGER: [facility] Phosphate SerPl-mCncon 11-17 Phosphate [Mass/Vol] 3.7 mg/dL Normal 2.7-4.8 [facility] Comment on above: Order Comment: Speci men Type: BLOOD SPECIMENOrdering Facility: [facility] Address: [address] [place] [address] Performed By: #### 1 9123-9, 58597-2, 2777-1 ####[facility]ORYCLIA [id number] [place] [address] [place] ANES POSTPROC EVALon 022 ANES POSTPROC EVAL HNO ID: [id number] Author: Julian Dotson MD Service: Anesthesiology Author Type: Anesthesiologist Type: Anesthesia Postprocedure Evaluation Filed: 11/16/2021 3:25 PM Note Text: POST ANESTHESIA EVALUATION NOTE : 1950 Procedure Summary Date: 11/16/21 Room / Location: [facility] OR05 / [facility] OR Anesthesia Start: 1138 [...] November 16, 2021 TIME: 3:25 PM CSN: [id number] [facility] ANES PRE-OPon 11-16-2021 ANES PRE-OP HNO ID: [id number] Author: Julian Dotson MD Service: Anesthesiology Author Type: Anesthesiologist Type: Anesthesia Preprocedure Evaluation Filed: 11/16/2021 12:03 PM Note Text: ANESTHESIOLOGY DAY OF SURGERY NOTE : 1950 Procedure Information Anesthesia Start Date/Time: 11/16/211138 Procedure: LAPAROSCOPIC RPR PARAESOPHAGEAL HERNIA W/MESH (N/A Abdomen) Location: OR05 / OR Surgeons: Atif Mendez MD Estimated [...] and consent discussed: yes. Patient / Responsible Democrat agrees to proceed: yes Patient / Surrogate [...] have interviewed and (more content not included)... [facility] BRIEF OP NOTon 11-16-2021 BRIEF OP NOT HNO ID: [id number] Author: Don Minor MD Service: General Surgery Author Type: Resident Type: Brief Op Note Filed: 11/16/2021 2:35 PM Note Text: GENERAL SURGERY BRIEF OP NOTE LOG ID: [id number] Surgery/Procedure Date: 11/16/2021 Incision/Procedure Start Time: 12:11 PM Incision Close/Procedure End Time: 2:32 PM Surgeon(s) and Hydrochloric Manufacturing Supervisor(s): Surgeon(s) and Role: * Atif Mendez MD [...] 16, 2021 TIME: 2:32 PM PAGER/CONTACT #: [phone] [facility] HISTORY PHYSICALon 2 HISTORY PHYSICAL HNO ID: [id number] Author: Don Minor MD Service: General Surgery [...] DATE: November 16, 2021 TIME: 10:54 AM [facility] NURSING PROGon 11-16-2021 NURSING PROG HNO ID: [id number] Author: Renetta Quintana RN Service: Nursing Author Type: Registered Nurse Type: Nursing Progress Note Filed: 11/16/2021 4:23 PM Note Text: Nursing Progress Note Patient Name: Mary Goode Patient Location: [place] [address] [address] ____ Transfer Note: Patient transferred into room/unit [id number] in stable condition. Actions taken: No futher actions taken at this time. Will continue to monitor and check with patient. This note was completed by: Renetta Quintana [facility] NURSING PROG HNO ID: [id number] Author: Arcelia Leal RN Service: Nursing Author [...] (RECOMMENDATION): None Electronically Signed By: Arcelia Leal [facility] OPERATIVE NOon 11-16-2021 OPERATIVE NO HNO ID: [id number] Author: Atif Mendez MD Service: General Surgery Author Type: Physician Type: Operative Report Filed: 11/23/2021 6:07 PM Note Text: [facility] - Operative Report MARY GOODE : 1950 AGE: 70. SEX: F PATIENT TYPE: I HOSP SV: GEN LOCATION: [facility] ATTENDING PHYSICIAN: Atif Mendez MD CSN NUMBER: [id number] DATE OF SURGERY/PROCEDURE: 11/16/2021 INCISION/PROCEDURE START TIME: 12:11 PM INCISION CLOSE/PROCEDURE END TIME: 2:27 PM PREOPERATIVE DIAGNOSIS: Paraesophageal hernia. POSTOPERATIVE DIAGNOSIS: 1. Paraesophageal hernia. 2. Short esophagus. SURGEON: Atif Mendez MD SENIOR CAREGIVER: Don Pérez MD SURGERY/PROCEDURE: 1. Laparoscopic repair [...] a fundectomy was subsequently performed. 3. A 58-Macanese bougie was used to guide the size [...] the fat pad was brought down. The [place] was passed from the right to the [...] we decided to perform a fundectomy. A 58-Macanese bougie was passed in the esophagus into [...] complications noted. Because the patient is a Pentecostalism, a Tisseel was used to spray in the operative bed. The 12 mm extraction port site was closed using a elmtfi-km-jjzbl stitch using Vicryl. The other 12 mm [...] in throughout the operation. Atif Mendez MD TA:[id number] /[id number] Normal [facility] SURGICAL PATHOLOGYon CASE REPORT Normal [facility] Comment on above: Order Comment: Speci men Type: TISSUE SPECIMENOrdering Facility: [facility] Address: [address] [place] [address] Result Comment: Surg ical Pathology Report Case: [id number] Authorizing Provider: Atif Mendez MD Collected: 11/16/2021 02:11 PM Ordering Location: [facility] Received: 11/16/2021 03:29 PM Operating Room Pathologist: Alba Neal MD Specimen: STOMACH RESECTION, Fundectomy Performed By: #### S ####[facility] LABCLIA [id number] [place] [id number] [facility] LABORATORYCLIA [id number] [address] FINAL DIAGNOSIS Normal [facility] Comment on above: Order Comment: Speci men Type: TISSUE SPECIMENOrdering Facility: [facility] Address: [address] [place], [place] [id number] Result Comment: Stom ach, excision: - Portion of stomach with fundic gland polyps. - No morphologic evidence of Helicobacter pylori microorganisms. Performed By: #### S ####[facility] LABCLIA [id number] [address] LABORATORYCLIA [id number] [address] FINAL PERFORMING LAB Normal [facility] Comment on above: Order Comment: Speci men Type: TISSUE SPECIMENOrdering Facility: [facility] Address: [address] [place] [address] Result Comment: Diag nostic interpretation performed at [facility], [address] [place] [address] CLIA# [id number] Die Repair: Fer Avalos M.D. Performed By: #### S ####[facility] LABCLIA [id number] [address] LABORATORYCLIA [id number] [address] GROSS DESCRIPTION Normal [facility] Comment on above: Order Comment: Speci men Type: TISSUE SPECIMENOrdering Facility: [facility] Address: [address] [place] [address] Result Comment: A. S TOMACH RESECTION. Received [...] The serosal surface is oates and smooth. Mold Runner sections are submitted as follows: A1 3 polyps totally submitted, A2 2 polyps totally submitted, A3 2 polyps totally submitted, A4 uninvolved gastric mucosa. BF November 17, 2021 9:13 AM Gross examination performed at [facility], [address] [place] [address] CLIA # [id number] Performed By: #### S ####[facility] LABCLIA [id number] [place] [address] [place] [facility] LABORATORYCLIA [id number] [place] [address] [place] SARS-CoV-2 RNA Resp Ql CONRADO+p robeon 11-13-2021 SARS-CoV-2 (COVID-19) RNA CONRADO+probe Ql (Resp) COVID 19 RESULT: SARS-CoV-2 (Agent of COVID-19) Not Detected by RT-PCR or equivalent method. This test was developed and its performance characteristics determined by [facility]'s [facility] [place]. This test has been authorized by FDA under an Emergency Use Authorization (EUA). This test has been validated in accordance with the FDA's Guidance Document Policy for Diagnostics Testing in Laboratories Certified to Perform High Complexity Testing under CLIA prior to Emergency use Authorization for Coronavirus Disease 2019 during the Public Health Emergency issued on July 07, 2019. Test performed by [facility], [facility] [place], [facility] [place] [address]. Normal [facility] Comment on above: Performed By: #### 9 4500-6 ####[facility] LABIA [id number] [address] [place] CNOVon 11-12-2021 CNOV Office Visit ([id number] ) MARY GOODE ([id number]) 1950 F Date Time Provider Department 11/12/21 11:30 AM ATIF MENDEZ [id number] During your visit today, we recorded the following information about you: Temperature Pulse Blood pressure Weight 97.4 degrees 62/minute 140/63 78.5 kg Height 1.6 m Atif Mendez MD 11/12/2021 1:39 PM Signed SURGERY PREOPERATIVE VISIT NOTE Name: Mary Goode Medical Record: [id number] Encounter No.: [id number] Mary Goode is a 70 year old female seen in surgery clinic today for their final preoperative assessment. INTERVAL NOTE: Patient needed to discuss regarding surgery. She is currently scheduled for a paraesophageal hernia repair. 10/21/2021 CT A/P 10/16/2021 esophageal manometry View External Imaging - Miscellaneous Imaging [ID [id number]] 10/07/2021 UGI Scan on 10/27/2021 ?8:25 AM by External Provider: GI BMI 31 PLANNED PROCEDURE: Paraesophageal hernia repair, possible Monico fundoplication. Patient is a Pentecostalism. We have discussed regarding not doing a fundoplication if risk of recurrence is assessed to be on the higher side intraoperatively. 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 Normal [facility] ECHOon 11-06-2021 Echocardiography Echocardiography Rep ort: Transthoracic Echo [facility] Date of service: 11/06/2021 10:21:38 AM CLERK Ordering physician: DOROTHY SPARROW Indication: Pre-op (non [...] * * * Final * * * [id number] icsSISUID Normal [facility] CBC panel Auto (Bld)on 11-03 Erythrocyte distribution width (RBC) [Ratio] 12.5 % Normal 11.5-15.0 [facility] Comment on above: Order Comment: Speci men Type: BLOOD SPECIMENOrdering Facility: [facility] Address: [address] [place] [address] [place] [address] Performed By: #### 5 8410-2 ####[facility] LABCLIA [id number] [place] [address] [place] Hematocrit (Bld) [Volume fraction] 36.7 % Normal 36.0-46.0 [facility] Comment on above: Order Comment: Speci men Type: BLOOD SPECIMENOrdering Facility: [facility] Address: [address] [place] [address] Performed By: #### 5 8410-2 ####[facility] LABCLIA [id number] [place] [address] [place] Hemoglobin (Bld) [Mass/Vol] 12.3 g/dL Normal 11.5-15.5 [facility] Comment on above: Order Comment: Speci men Type: BLOOD SPECIMENOrdering Facility: [facility] Address: [address] [place] [address] Performed By: #### 5 8410-2 ####[facility] LABIA [id number] [place] [address] [place] MCH (RBC) [Entitic mass] 30.0 pg Normal 26.0-34.0 [facility] Comment on above: Order Comment: Speci men Type: BLOOD SPECIMENOrdering Facility: [facility] Address: [address] [place] [address] Performed By: #### 5 8410-2 ####[facility] LABIA [id number] [place] [address] [place] MCHC (RBC) [Mass/Vol] 33.5 g/dL Normal 30.5-36.0 [facility] Comment on above: Order Comment: Speci men Type: BLOOD SPECIMENOrdering Facility: [facility] Address: [address] [place] [address] Performed By: #### 5 8410-2 ####[facility] LABIA [id number] [place] [address] [place] MCV (RBC) [Entitic vol] 89.5 fL Normal 80.0-100.0 [facility] Comment on above: Order Comment: Speci men Type: BLOOD SPECIMENOrdering Facility: [facility] Address: [address] [place] [address] Performed By: #### 5 8410-2 ####[facility] LABIA [id number] [place] [address] [place] Nucleated RBC (Bld) [#/Vol] 10*3/uL Normal <0.01 [facility] Comment on above: Order Comment: Speci men Type: BLOOD SPECIMENOrdering Facility: [facility] Address: [address] [place] [address] Performed By: #### 5 8410-2 ####[facility] LABIA [id number] [place] [address] [place] Platelet mean volume (Bld) [Entitic vol] 9.3 fL Normal 9.0-12.7 [facility] Comment on above: Order Comment: Speci men Type: BLOOD SPECIMENOrdering Facility: [facility] Address: [address] [place] [address] Performed By: #### 5 8410-2 ####[facility] LABIA [id number] [place] [address] [place] Platelets (Bld) [#/Vol] 331 10*3/uL Normal 150-400 [facility] Comment on above: Order Comment: Speci men Type: BLOOD SPECIMENOrdering Facility: [facility] Address: [address] [place] [address] Performed By: #### 5 8410-2 ####[facility] LABCLIA [id number] [place] [address] [place] RBC (Bld) [#/Vol] 4.10 10*6/uL Normal 3.90-5.20 [facility] Comment on above: Order Comment: Speci men Type: BLOOD SPECIMENOrdering Facility: [facility] Address: [address] [place] [address] Performed By: #### 5 8410-2 ####[facility] LABCLIA [id number] [place] [address] [place] [facility] [place] WBC (Bld) [#/Vol] 7.53 10*3/uL Normal 3.70-11.00 [facility] Comment on above: Order Comment: Speci men Type: BLOOD SPECIMENOrdering Facility: [facility] Address: [address] [place] [address] Performed By: #### 5 8410-2 ####[facility] LABCLIA [id number] [address] OF [facility] Faisal 11-03-2021 [facility] Telephone ([facility]) MARY GOODE ([id number]) 1950 [facility] Date Time Provider Department 11/03/21 ATIF MENDEZ [facility] During your visit today, we recorded the following information about you: Gee Meeks Ma 11/03/2021 10:41 AM Signed Patient is in need of Echo before 11/16 for surgery. Is anyone able to assist in getting the patient in for this? Gee Meeks Ma 11/04/2021 2:50 PM Signed Patient scheduled 11/06 in [place] for ECHO Allergies As of Date: 11/03/2021 (No Known Allergies) Date Reviewed: 11/03/2021 Reviewed by: Dorothy Sparrow APRN.COLLARETTE SEPARATOR - Fully Assessed Reason for Visit: Orders [...] Anxiety [F41.9] Murmur [R01.1] Encounter Status:Closed by EGE MEEKS MA on 11/04/21 Normal [facility] metabolic 2000 panelon 11-03-2021 Albumin [Mass/Vol] 4.6 g/dL Normal 3.9-4.9 [facility] Comment on above: Order Comment: Speci men Type: BLOOD SPECIMENOrdering Facility: [facility] Address: [address] [place] [address] Performed By: #### 2 4323-8 ####[facility] LABIA [id number] [place] [address] [place] ALP [Catalytic activity/Vol] 91 U/L Normal 34-123 [facility] Comment on above: Order Comment: Speci men Type: BLOOD SPECIMENOrdering Facility: [facility] Address: [address] [place] [address] Performed By: #### 2 4323-8 ####[facility] LABIA [id number] [place] [address] [place] ALT [Catalytic activity/Vol] 16 U/L Normal 7-38 [facility] Comment on above: Order Comment: Speci men Type: BLOOD SPECIMENOrdering Facility: [facility] Address: [address] [place] [address] Performed By: #### 2 4323-8 ####[facility] LABIA [id number] [place] [address] [place] Anion gap [Moles/Vol] 9 mmol/L Normal 9-18 [facility] Comment on above: Order Comment: Speci men Type: BLOOD SPECIMENOrdering Facility: [facility] Address: [address] [place] [address] Performed By: #### 2 4323-8 ####[facility] LABCLIA [id number] [place] [address] [place] AST [Catalytic activity/Vol] 17 U/L Normal 13-35 [facility] Comment on above: Order Comment: Speci men Type: BLOOD SPECIMENOrdering Facility: [facility] Address: [address] [place] [address] Performed By: #### 2 4323-8 ####[facility] LABCLIA [id number] [place] [address] [place] Bilirubin [Mass/Vol] 0.6 mg/dL Normal 0.2-1.3 [facility] Comment on above: Order Comment: Speci men Type: BLOOD SPECIMENOrdering Facility: [facility] Address: [address] [place] [address] Performed By: #### 2 4323-8 ####[facility] LABCLIA [id number] [place] [address] [place] Calcium [Mass/Vol] 10.3 mg/dL High 8.5-10.2 [facility] Comment on above: Order Comment: Speci men Type: BLOOD SPECIMENOrdering Facility: [facility] Address: [address] [place] [address] Performed By: #### 2 4323-8 ####[facility] LABCLIA [id number] [place] [address] [place] Chloride [Moles/Vol] 98 mmol/L Normal 97-105 [facility] Comment on above: Order Comment: Speci men Type: BLOOD SPECIMENOrdering Facility: [facility] Address: [address] [place] [address] Performed By: #### 2 4323-8 ####[facility] LABCLIA [id number] [place] [address] [place] CO2 [Moles/Vol] 27 mmol/L Normal 22-30 [facility] Comment on above: Order Comment: Speci men Type: BLOOD SPECIMENOrdering Facility: [facility] Address: [address] [place] [address] Performed By: #### 2 4323-8 ####[facility] LABCLIA [id number] [place] [address] [place] Creatinine [Mass/Vol] 1.05 mg/dL High 0.58-0.96 [facility] Comment on above: Order Comment: Speci men Type: BLOOD SPECIMENOrdering Facility: [facility] Address: [address] [place] [address] Performed By: #### 2 4323-8 ####[facility] LABCLIA [id number] [place] [address] [place] ESTIMATED GLOMERULAR FILTRATION RATE 58 mL/min/1.73m??? Low >=60 [facility] Comment on above: Order Comment: Speci men Type: BLOOD SPECIMENOrdering Facility: [facility] Address: [address] [place] [address] Result Comment: Gabriela mated Glomerular Filtration Rate [...] By: #### 2 4323-8 ####[facility] LABCLIA [id number] [place] [address] [place] Glucose [Mass/Vol] 108 mg/dL High 74-99 [facility] Comment on above: Order Comment: Speci men Type: BLOOD SPECIMENOrdering Facility: [facility] Address: [address] [place] [address] Result Comment: The [place] Diabetes Association (ADA) provides guidance for cutoff [...] Standards of Medical Care in Diabetes 2016, [place] [employer] Association. Diabetes Care. 2016.39(Suppl 1). Performed By: #### 2 4323-8 ####[facility] LABIA [id number] [place] [address] [place] Potassium [Moles/Vol] 4.3 mmol/L Normal 3.7-5.1 [facility] Comment on above: Order Comment: Speci men Type: BLOOD SPECIMENOrdering Facility: [facility] Address: [address] [place] [address] Performed By: #### 2 4323-8 ####[facility] LABIA [id number] [place] [address] [place] Protein [Mass/Vol] 7.2 g/dL Normal 6.3-8.0 [facility] Comment on above: Order Comment: Speci men Type: BLOOD SPECIMENOrdering Facility: [facility] Address: [address] [place] [address] Performed By: #### 2 4323-8 ####[facility] LABIA [id number] [place] [address] [place] Sodium [Moles/Vol] 134 mmol/L Low 136-144 [facility] Comment on above: Order Comment: Speci men Type: BLOOD SPECIMENOrdering Facility: [facility] Address: [address] [place] [address] Performed By: #### 2 4323-8 ####[facility] LABCLIA [id number] [place] [address] [place] Urea nitrogen [Mass/Vol] 19 mg/dL Normal 7-21 [facility] Comment on above: Order Comment: Speci men Type: BLOOD SPECIMENOrdering Facility: [facility] Address: [address] [place] [address] Performed By: #### 2 4323-8 ####[facility] LABCLIA [id number] [place] [address] [place] HISTORY PHYSICALon HISTORY PHYSICAL HNO ID: [id number] Author: Dorothy Sparrow APRN.COLLARETTE SEPARATOR Service: ? Author Type: Nurse Practitioner Type: [...] loss, malaise or fevers. Neurological: HCP s/p BRICKMASON CONTRACTOR shunt Negative for: delirium, dementia, headaches, seizures and strokes. Respiratory: Positive for: obstructive sleep apnea and CPAP/BiPAP compliant. Negative for: asthma, current cough, bronchodilator used daily for the last 3 months, dyspnea, pneumonia within 6 weeks, tobacco use and URI < 2 weeks. Cardiovascular: Positive for: hypertension Negative for: CAD, chest pain, CHF, DVT/PE, recent SC and murmur/valvular heart disease. GI: See HPI. Negative for: dysphagia, liver disease and pancreatitis. : Positive for: renal failure. Patient's renal failure is chronic. Negative for: dysuria, hematuria and urinary tract infection. 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 Normal [facility] 10-23-2021 [facility] Telephone ([id number]) MARY GOODE ([id number]) 1950 F Date Time Provider Department 10/23/21 ATIF MNEDEZ [id number] During your visit today, we recorded the following information about you: Sabine Victoria [facility] 10/23/2021 12:05 PM Signed Requested reports from [facility]. Sent fax to [phone] -Manometry 10.16.21 -Upper GI 6 Sabine Victoria [facility] Jonathon Dobson 10/27/2021 3:59 PM Signed Records [...] Status:Closed by JONATHON DOBSON on 10/27/21 Normal [facility] CREATININE BLDon 10-21-2021 Creatinine [Mass/Vol] 1.04 mg/dL High 0.58-0.96 [facility] Comment on above: Order Comment: Param jarquin Type: BLOOD SPECIMENOrdering Facility: [facility] Address: [address] [place] [address] Performed By: #### C RET1 ####[facility] LABCLIA [id number] [place] [address] ESTIMATED GLOMERULAR FILTRATION RATE 59 mL/min/1.73m??? Low >=60 [facility] Comment on above: Order Comment: Speci britton Type: BLOOD SPECIMENOrdering Facility: [facility] Address: [address] [place] [address] Result Comment: Gabriela mated Glomerular Filtration Rate [...] actual GFR. Performed By: #### C RET1 ####[facility] LABCLIA [id number] [place] [address] CT ABD/PEL W IVCONon 022 CT ABD/PEL [...] no acute osseous abnormalities. Lower thorax: Unremarkable. Brick Carrier (topogram) images: No additional findings. IMPRESSION: 1. [...] any questions regarding this interpretation, please call [phone]. If you are unable to reach us at the number above, please feel free to contact [facility] eRadiology at [phone]. [id number] Normal [facility] CNOVon 10-01-2021 CNOV Office Visit ([id number] ) MARY JANE ([id number]) 1950 [facility] Date Time Provider Department 10/01/21 10:30 AM ATIF MENDEZ [id number] During your visit today, we recorded the [...] PM Addendum [place] PATIENT PATIENT NAME: Mary Goode REASON FOR CONSULT: Hiatal hernia REQUESTING PHYSICIAN: Dr. Jorge Ramirez DATE of SERVICE: 09/25/2021 TIME of SERVICE: 12:16 PM PCP: Monika Guerrero MD Chief Complaint: refractory GERD History of present illness: Mary Goode is a 70 year old female who is a Spiritism PMH of congenital hydrocephalus ( BRICKMASON CONTRACTOR shunt), HTN, patient of Monika Guerrero MD, referred to me by Dr Ramirez for hiatal hernia with severe GERD symptoms. Patient reports heart burn, excess salivation and occasional regurgitaion. She denies any ALARM features including weight loss, GIB, odynyophagia or dysphagia. Her PSH include open appendectomy, JUANI, and BRICKMASON CONTRACTOR shunt placement. The patient's most recent EGD was done in 09/03 and the report is included below Chart Review: -hx: worsening GERD - referred by Dr. Ramirez for GERD/Hiatal Hernia Scan on 09/03/2021 ?9:36 AM by Jonathon Dobson: [facility] progress note 07/22/2021 Dr. Ramirez - 08/06/2021 EGD Scan on 09/03/2021 ?9:35 AM by Jonathon Dobson: [facility] EGD 08/06/2021 Dr. Ramirez -09/17/2015 EGD Scan on 09/03/2021 ?9:33 AM by Jonathon Dobson: [facility] Operative report 09/17/2015 Dr. Walter Difficulty swallowing [...] 70 year old female who is a Spiritism PMH of congenital hydrocephalus ( BRICKMASON CONTRACTOR shunt), HTN, who presents with paraesophageal hernia [...] the s (more content not included)... Normal [facility] Faisal 09-03-2021 [facility] Telephone ([id number]) OZIELMARY Cherry ([id number]) 1950 F Date Time Provider Department 09/03/21 ATIF MENDEZ [id number] During your visit today, we recorded the following information about you: Jonathon Dobson 09/03/2021 9:39 AM Signed Received medical records from Dr. Ramirez. Progress Note 07/22/2021 EGD [id number] Old Operative Report 09/17/2015 Please review. Allergies [...] by RIKY MOURA RN on 09/07/21 Normal [facility] Consent for Treatmenton 12-0 Consent for Treatment [id number]#1.00CD:127 Normal [facility] Consent for COVID Vaccineon 03-22-2021 SARS-CoV-2 (COVID-19) RNA CONRADO+probe Ql (Unsp spec) [id number]#1.00CD:127 Normal [facility] Coding Summary.on 03-12-2021 Coding Summary. CD:[id number] Gh0bWw+PGhlY WQ+MJ6DMWUnZ24rgEJekA5LI4tVUD2SG LWEHFKKIK7BXC6acBC0FLlsK2VnrnIe VugewHSeDC41XIo7OPR0zXikZLzswS4h sJYxJ0r4YwUyWW86dC30RJlzZBHdVmL5 LjZpbjsgbWFy D2fiHgOmvAGtXsm+PHRhYmxlIHdpZHRo EHcaLFTuMwEaoJveIL8tCj6cSGAbSQSw bGxhcHNlOiBj r6tdXGYiOTqqQI6wmRzqZ0ZgdAR9RRHa v9k2Le25yVA+HNSvXOF2oOhdZGdko493 TfOey4gkVWO4 qTDyDDeySPQ8F33uh7I0LWIjVQIxDDG4 bNH2jD7vtEytfzhaQ8EcpHOxVkZ6IBD8 jEZrlT3pfWbk uwmlgK0nJcl+V51UDT0TIYVGCR0XCro6 I7TgZcngyXD+CU14ZVNcDG67iYKumHUn b5vtaEw6BmKu ZRVtOGA3iHwrGYbam4ZzHHZlM51heBYy h5X1ZPTdfOrqbAFpMxVrcOM0sV2dMLsi rsaul5vsvdyn Cirvs4qyxf44qF71H49gSTedSSDhEEN9 PBIxAOUoiBzfqf0wzP7rLt0+AUmwx9cg v2bywUg3XeYk WFAgojIekOniGEX9u4WrGz09R0CgaLny n7HjThp9rl07uPHuw2X5mWK9NNepBEDn vR0mSYbnDkE3 OPRcCfPvdL24bBZzOOhnKz0hoGjaiDal LQ5tCEBflxhrGTRlfY3uQLHswSKffEsg JQ6aILAvpgjx b635GhGhPGT1EFCxvJWuO7WieZ0pYnVu JOXjXQBoM5VygABkOWztJ237RBvvMoN6 REFpwkGdI1Tn GSCqeUjoUvZ1c8N4Rc5Nx6BcrfokDVA0 RRrdSVCjAwZ3TaJwOoU5V5MxDnr0YGBr zMmmDF1kX2Qz YRJxdlkdcntnaZL9ZZBoLFXyjU33pBQx PGfnOk4dg8L0f706OEIeLGLfcG89Aw6t dDogMTBwdCBU pX9lsugon3bmubqwNwGxCAUzFWz8GCw3 ARXdnJsxJiDmFWW4NsC4GSO8bKTkwE4h bUwrjlkznU7j Oyc+T76kxJ4gMRK6VFM9tjobMHLjnuZe FR32YP18P6RvInpldDFcjBE+PGRpdiBz bKpfOV0qZjMw o0sxj8YuFZlfT9ArVHAgXAnkKxc9RMDx CXM4kQL9iS9pZKYwPEvjx4M4eEK1F5Id iaOrnd6gm8pl AIXlLQbhX99xaNPes4U9VAEykHV9QYMb pQcxFnCxpY04Ysz+VHMybZmsv6LhGnzh y9sfk0cmvHo2 SyHbQHPhrmUfyUreQFG5w3SpPt42A38i WTjuIAOkCZMjVCYeWODebTldqn3fwT9e Ii8+PGNvbCB3 bLS7hS4iTGEiZfD2MCvuT825QqRhrZMr Ehfup3gwt7kuvBv8PaMyVSRtbuDcmNcw RTM3j6BvDt06 T94cUThmLUIqVDBwKKGuWEGpiLdoze6u wI7kSj8+AN3bb8lszl06zN38qCW+PHRk ZKK0nCunWTlo VNZtcJ4tIJimKeB7IHPtMyVftS66pHSp DCgaXz2opKcfbKyyRY3tXVJmozwkt189 ZkVyh7etWQIu xNJkFWbwPIR3H61rh9N6PFBbMHRcLMS3 iFX9fL7wwWkchdjbbANcfDghlzUomTmt GTfdSHnyH550 KHJehHesJlMhdVkvivYbUnRoPRd7Z9Ui Wov9SHLvdAzmHI9amYElEJuuJr9leXch jUzgRK0hNEZj ollzg068KtNho9shNDQwuHUnDAzlLKU0 A71gz6Q0SNGqWPImWGR1eVD8hD8spYhn bjogbGVmdDsg ljWymWcyUTxqMQgdP067YOKziSzgVuCi vpOxEGCvaXF7FW85CW30aEIik9K2kTZ3 F7AxJUJqevdw omfiaNG1RONfNHDnuK19Hx3qiMtrRi1d THOuAOM2NCLvfSGlS8GnmD3oWbLrLLAw SVUjC2EmtUJz BHitQ849YHkgZwD1LOWxhuXkM5RjCVDn tYqaPhE3v7F1At3WR1X3QV85YX01eVYw o3S3iXL2B3Ng KCFydbjpxscxnSF8RXKvWFZlqU97Vf0s sLaaTa9vPNEmEOS2LRYubIOpQ0SdoV3i OiAjMDAwMDAw I1UupBRkFFxyX598TCqjCmE3BXAojyHl G8NbZESgoYkgRhK9y7S8Im4EDCw3GC71 UX30aGNsm1V1 kDE3A8VfGNIusfszyfhqqYU1XDLbOHNc zW33Fg9rjThmBu6zIUYiLDY6ADPjeLUj X8XxzF4bGjFk WOBvPBBzZ7GxpPMrOOmmM003HMudXeY0 PJRkpnJuB3BjJFSnrXoiJnS7a1F4Vm6Z SYUwSJ34ADJ9 xWU0JB91LJ50W2IdHorjyJLcyBG+PHRh ZakhSDtuUVTlOUbjDGUaDsLrvCneYG4y Lx8hRJQfSVNy vUzhuNIbGyPcb0opDGRhGIwzZS4ycBxd D1FtlTI8UPSjr3d8Md85P49qU5GunZT+ CPKdwXF2mJB2 wA6mTnIiTpC5ACytD427CqDaeMDlKpww q8soj1lrlFb4WyU4JNVqfpAoqOwoDIY3 m0QkTd43B60q ADipFNSrADNsOTFjFTDvcHlwef7eeO5m Ii8+LWHdjSV7kEJ5yE9jAtOaJrB0UVir E333SzKvhNUs Uhndc7fyo4zodHw3CtFlITXircNziXiu TMG5g5QiAh18E5ComIbzx2NoPqe1jq82 uTPsu4S7aKW7 B5ZzJWDdukfckYKhqGzaGR7zNUIrzaqz YINnvJ5fOVKnO3h9QbUqCzR5OIzmU1Qx buI5WONrmHEv DFopFYF7C47xi9T0FCLsORMsTNU3eYQ3 vE0cdCvfhyeteOMywUoukjFbmLjmZVpp JUpvW421PPIm nMiaZWBqgZ4nDGBmpYSltInjKF3kGCUu wjprHhUAVFFKAnbXGOLxXCkBAsFLSY19 L3WjNbd2YXAw aIodQH3xlQUrMOquQl7fqKwieXjsNN7c UFRqjrjvQWEieX7gUQVylQZwlDqaRH6a EHOurhelm216 XoMcQQM3LJAbaLUqN6HhoE8pZnXkNVKj NFJaL8SybEKoXFreZ487NNjoYoJ4GCId rkDxK8OnXPGo qUsyOwY3f6U0Ze3wGy8bQG7uFSBjTA49 VS35aIFtk2M0zCU2I5AfGRIlgracsidg sZX6OPEwOUSi nR57wDJmLVgxIg7ny5D6o423PTKqLLGz sT92Zx6thHuzYWJcbFRYcI0owhhbi6og cjogIzAwMDAw OWv7CVa4DETljWlzZeFtTLW8HoA9CFT8 rIAisL4xzCthbzrmuV2pDod+NjggWWVh jgA2Y3VlHbu2 EZLbeAjxNK0tyDEgOWjvOc0pbUjnmRks CO0pUPFaaotwJKQoxI5jIPJeaPQwaTux HW6jIFBhcgxj t940HpSbHDN9YWOvaULpO9MquE3lAmWx BPZsAWPhP8DxfNKtBZqrQ120UCdaHkB7 WVQjkzNfR4Tb KJEbdMmmOqA7b1A5Zl4PXB2psUS1L7Kd Qtw3ANLhbLxtUZ0mzOBaUYysRf8kpMpf eSxoRE4cVAIh egfiWWKblN2cSIRulNOnmBbfHQ9mJHZw vvico442UwUbFWA8MLLjrVKeH6YijU2f OiAjMDAwMDAw P0FvvLBiBXptE627NZjsIxA5LUMepjYh D7ChOSGhnXajOpI2s9F3Mm8BYJB2biQd usd9T2PgUbwl dHI+RH07CQWrBD01uFAohDMru5rirNn1 UkKcQDIeWPR1oSauEEbin3VaQMRjP46i gUJqq7Y1BLPb oFvjvKFlIlQyuUK8yK1sRVryyeeja5ti nlbbShtqq8ahue79vC38Y94ePCllXKNf PSIzMCUiIHZh nNvwzc4qzY1tTr9+LKEolUM2gPG4lJ9f YrLoIdJ2ZQqgE602NnKkrXVbSiuaq0bd x8aslOc4CeNa RAYrpnXrnWbxUBW1v3DiTg48M45lJIpy ONRqXIPxLVBdRQVqySnndp9rsS6sZy5+ WH0ez0ccrs61 hQ40sQL+RHHuEEH4oEfsHHhuBZWelX1q RCypBrW0VSJyWzHdwT07oWOnYAyuNw4m aXljxLpcKC7o TYYpuqycv899KiVhf5hgUINejAYyDBvn ODR7U53ui8C6FPDmRRHrGOH1gIZ4pB8d bGlnbjogbGVm zDoxkeItbJikUXtxUGasM935TVGdgHvn JcOryLVyV9eqmeMRLB0qNhidgYU+PHRk NRC7hSixBXya IIYqiF9yXMExR8y8GdNvYiG5HGnwG2Jg sbI9UTTmxMScFJTncQJNsA2bskmfl7ji cjogIzAwMDAw PWa6OXt8HYXstHxlIvWlYGN8XbT8LRA6 zNComR5ibGcxupzdhW4kJhe+RklOOjwv dGQ+PHRkIHN0 sPocDWmoISQnvQ7sYJYxB7o6WvCzIiF6 TEdhD1ZyrgI1SYArtJBdZLPbhIMQbD4c dxcse8eaoycj WkTgZCBiQGx3VFu9YKTgkXrpMiVfXWW0 BiX4PUO8pMQejY9exKtcpczcoF9yIqj+ TVJOOjwvdGQ+ RQBcWSP2uGwlPFseAYVetK7kIOWcL6j6 JyKeMoA5NQrrY5AcpzD6TLFezUIqKEGq rEJSmB2ouelu f0zgsqhrWeDrWNKyXCt3XMv5MISrhBjx SnZoWMG0PvQ2QSM1jUYmcM8rhVxdeans lN8yZpw+UGF5 UBD3SA94MU27R8BaYauveRSraNA+PHRh PbfjAUeuKFFkUZovDBMgFiPirOxiVT6o Ws9rWMCdJNOy bGxh (more content not included)... Normal Perez [facility] Cardiovascular Lab Reporton 01-13-2017 Cardiovascular Lab Report [facility] Patient Name: [facility] MR #: [id number] Physician: Caty Yoder,Department of M.D.Medicine Service Date: 01/12/2017Division of Birthdate: 3Cardiology Room #: CCAdult Cardiovascular[address] [address]Ieyza Fax Cardiovascular Laboratory ReportFINAL IMPRESSION:1. Mildly elevated [...] usual sterile fashion. Using modified Seldingertechnique, a 5-Macanese micropuncture was placed in the right internaljugular vein. After that, this was upsized to a regular 5-Macanese sheath.A 5-Macanese Martinez was used for right heart catheterization. After theright heart catheterization, data was obtained. Martinez catheter was takenout. After that, access was obtained of left radial artery and a 6-Frenchsheath was placed and then we used a 5-Macanese JL4 and JR4 catheters forcoronary angiography. After [...] 01/12/2017/11:24 Darya/Caty Yoder M.D.Date Trans: 01/13/2017 07:28 A/Chin_[id number]: Imer Purcell M.D. [address] [facility] [id number] Samuel Sanchez M.D. [address] [place] [id number] Normal [facility] Vital Signs Date Time Vital Sign Value Performing Clinician Facility 06-16-2023 10:43-0500 Body height 160 cm Mireille Zurita MD Work Phone: [facility] 06-16-2023 10:43-0500 Body mass index (BMI) [Ratio] 31.53 kg/m2 Mireille Zurita MD Work Phone: [facility] 06-16-2023 10:43-0500 Body temperature 96.8 [degF] Mireille Zurita MD Work Phone: 1(628)762-488086 [place] [address] 06-16-2023 10:43-0500 Body weight 80.74 kg Mireille Zurita MD Work Phone: 3(733)161-269086 [place] [address] 06-16-2023 10:43-0500 Diastolic blood pressure 74 mm[Hg] Mireille Zurita MD Work Phone: 4(897)162-995686 [place] [address] 06-16-2023 10:43-0500 Heart rate 82 /min Mireille Zurita MD Work Phone: 3(405)233-853286 [place] [address] 06-16-2023 10:43-0500 Systolic blood pressure 110 mm[Hg] Mireille Zurita MD Work Phone: 5(375)624-142486 [place] [address] 05-10-2023 11:27-0500 Body height 157.5 cm Mireille Zurita MD Work Phone: 5(320)267-941186 [place] [address] 05-10-2023 11:27-0500 Body mass index (BMI) [Ratio] 32.08 kg/m2 Mireille Zurita MD Work Phone: 2(869)381-175586 [place] [address] 05-10-2023 11:27-0500 Body temperature 97.3 [degF] Mireille Zurita MD Work Phone: 7(180)072-338286 [place] [address] 05-10-2023 11:27-0500 Body weight 79.56 kg Mireille Zurita MD Work Phone: 0(826)429-135386 [place] [address] 05-10-2023 11:27-0500 Diastolic blood pressure 76 mm[Hg] Mireille Zurita MD Work Phone: 6(601)643-582186 [place] [address] 05-10-2023 11:27-0500 Heart rate 74 /min Mireille Zurita MD Work Phone: 3(984)869-319086 [place] [address] 05-10-2023 11:27-0500 Respiratory rate 16 /min Mireille Zurita MD Work Phone: 0(147)863-316086 [place] [address] 05-10-2023 11:27-0500 Systolic blood pressure 120 mm[Hg] Mireille Zurita MD Work Phone: 0(961)371-448586 [place] [address] 03-23-2023 08:20-0500 Body temperature 97.9 [degF] Mireille Zurita MD Work Phone: 2(146)829-831086 [place] [address] 03-23-2023 08:20-0500 Diastolic blood pressure 73 mm[Hg] Mireille Zurita MD Work Phone: 0(764)704-974986 [place] [address] 03-23-2023 08:20-0500 Heart rate 88 /min Mireille Zurita MD Work Phone: 1(861)644-171586 [place] [address] 03-23-2023 08:20-0500 Respiratory rate 16 /min Mireille Zurita MD Work Phone: 1(606)272-045557 [place] [address] 03-23-2023 08:20-0500 SaO2% (BldA) [Mass fraction] 95 % Mireille Zurita MD Work Phone: 5(407)229-985383 [place] [address] 03-23-2023 08:20-0500 Systolic blood pressure 127 mm[Hg] Mireille Zurita MD Work Phone: [facility] 03-21-2023 06:33-0500 Body height 157.5 cm Mireille Zurita MD Work Phone: 2(406)314-636786 [place] [address] 03-21-2023 06:33-0500 Body mass index (BMI) [Ratio] 31.45 kg/m2 Mireille Zurita MD Work Phone: [facility] 03-21-2023 06:33-0500 Body weight 78 kg Mireille Zurita MD Work Phone: [facility] 02-01-2023 09:40-0400 Body height 163.83 cm Gino Paco Other [facility] Other 02-01-2023 09:40-0400 Body mass index (BMI) [Ratio] 29.4 kg/m2 Gino Paco Other [facility] Other 02-01-2023 09:40-0400 Body temperature 97.6 [degF] Gino Paco Other [facility] Other 02-01-2023 09:40-0400 Body weight 78.93 kg Gino Paco Other [facility] Other 02-01-2023 09:40-0400 Diastolic blood pressure 74 mm[Hg] Gino Paco Other [facility] Other 02-01-2023 09:40-0400 Respiratory rate 18 /min Gino Paco Other [facility] Other 02-01-2023 09:40-0400 SaO2% (BldA) [Mass fraction] 98 % Gino Paco Other [facility] Other 02-01-2023 09:40-0400 Systolic blood pressure 129 mm[Hg] Gino Paco Other [facility] Other 01-20-2023 14:47-0400 Body height 160.02 cm Imer Chavezy Work Phone: EK-Onplawmzlifz-Pvcb [facility] [address] Work Phone: 01-20-2023 14:47-0400 Body mass index (BMI) [Ratio] 30.29 kg/m2 Imer Cherry Hoy Work Phone: WE-Rjnbdisbmfzs-Wlqr [facility] [address] Work Phone: 01-20-2023 14:47-0400 Body surface area Derived from formula 1.81 m2 Imer Jo Ann Hoy Work Phone: ID-Wasfwfvrefzr-Ossv [facility] [facility] [address] Work Phone: 01-20-2023 14:47-0400 Body temperature 96.9 [degF] Imer Chavezy Work Phone: IN-Mkxbruizewfg-Iotf [facility] [address] Work Phone: 01-20-2023 14:47-0400 Body weight 77.57 kg Imer M Hoy Work Phone: CJ-Fxvsvlxkmmut-Nsrw [facility] [address] Work Phone: 01-20-2023 14:47-0400 Diastolic blood pressure 78 mm[Hg] Imer M Hoy Work Phone: PC-Kkmeockxhmeq-Dmgm [facility] [address] Work Phone: 01-20-2023 14:47-0400 Heart rate 69 /min Imer M Hoy Work Phone: QC-Zypxybtsvova-Vroe [facility] [facility] [address] Work Phone: 01-20-2023 14:47-0400 SaO2% (BldA) [Mass fraction] 98 % Imer M Hoy Work Phone: JR-Neahvlhblmqm-Mlkm [facility] [facility] [address] Work Phone: 01-20-2023 14:47-0400 Systolic blood pressure 140 mm[Hg] Imer M Hoy Work Phone: JN-Qbwubbzcdvvn-Fsng [facility] [address] Work Phone: 01-20-2023 14:47-0400 4 1 Imer M Hoy Work Phone: RT-Vsocbhjqrqla-Cckk [facility] [address] Work Phone: Comment on above: [employer] 12-07-2022 11:08-0400 Body height 160.02 cm Imer M Hoy Work Phone: PT-Psauytmzdncy-Udvu [facility] [facility] [address] Work Phone: 12-07-2022 11:08-0400 Body mass index (BMI) [Ratio] 30.29 kg/m2 Imer M Hoy Work Phone: CJ-Ppbbmozlrppj-Csib [facility] [address] Work Phone: 12-07-2022 11:08-0400 Body surface area Derived from formula 1.81 m2 Imer M Hoy Work Phone: FO-Fcisopulhhlj-Rppy [facility] [address] Work Phone: 12-07-2022 11:08-0400 Body temperature 96.8 [degF] Imer M Hoy Work Phone: VG-Hczpvhauzbzf-Fysx [facility] [address] Work Phone: 12-07-2022 11:08-0400 Body weight 77.57 kg Imer M Hoy Work Phone: IU-Cpozvpikqgeo-Pjmi [facility] [address] Work Phone: 12-07-2022 11:08-0400 Diastolic blood pressure 78 mm[Hg] Imer M Hoy Work Phone: JF-Lnehzmmcwpqs-Pefq [facility] [address] Work Phone: 12-07-2022 11:08-0400 Heart rate 63 /min Imer M Hoy Work Phone: VS-Vjpefutmbqal-Lggc [facility] [address] Work Phone: 12-07-2022 11:08-0400 SaO2% (BldA) [Mass fraction] 97 % Imer M Hoy Work Phone: PD-Hukmucygrpxb-Orzj [facility] [address] Work Phone: 12-07-2022 11:08-0400 Systolic blood pressure 132 mm[Hg] Imer M Hoy Work Phone: UO-Xdeblbqckeuy-Exnp [facility] [address] Work Phone: 12-07-2022 11:08-0400 4 1 Imer M Hoy Work Phone: MC-Eytynhchctsa-Mqqa [facility] [address] Work Phone: Comment on above: [employer] 12-07-2022 11:08-0400 5 1 Imer M Hoy Work Phone: BE-Ppqaixfpmpbz-Duap [facility] [address] Work Phone: Comment on above: PHQ-9 TS 08-03-2022 15:20-0400 Body height 163.83 cm Keagan Chadwick Other [facility] Other 08-03-2022 15:20-0400 Body mass index (BMI) [Ratio] 19.6 kg/m2 Keagan Chadwick Other [facility] Other 08-03-2022 15:20-0400 Body weight 52.62 kg Keagan Chadwick Other [facility] Other 07-22-2022 12:00-0400 Body height 163.83 cm Keagan Chadwick Other [facility] Other 07-22-2022 12:00-0400 Body mass index (BMI) [Ratio] 19.6 kg/m2 Keagan Chadwick Other [facility] Other 07-22-2022 12:00-0400 Body weight 52.62 kg Keagan Chadwick Other [facility] Other 07-22-2022 12:00-0400 Diastolic blood pressure 72 mm[Hg] Keagan Chadwick Other [facility] Other 07-22-2022 12:00-0400 Systolic blood pressure 118 mm[Hg] Keaganannmarie Chadwick Other [facility] Other 06-16-2022 10:00-0500 Body height 163.83 cm Gino Paco Other [facility] Other 06-16-2022 10:00-0500 Body mass index (BMI) [Ratio] 19.69 kg/m2 Gino Paco Other [facility] Other 06-16-2022 10:00-0500 Body temperature 97.6 [degF] Gino Paco Other [facility] Other 06-16-2022 10:00-0500 Body weight 52.84 kg Gino Paco Other [facility] Other 06-16-2022 10:00-0500 Diastolic blood pressure 70 mm[Hg] Gino Paco Other [facility] Other 06-16-2022 10:00-0500 Respiratory rate 18 /min Gino Paco Other [facility] Other 06-16-2022 10:00-0500 Systolic blood pressure 120 mm[Hg] Gino Paco Other [facility] Other 04-08-2022 10:09-0500 Diastolic blood pressure 64 mm[Hg] MD Imer Purcell Work Phone: [facility] 04-08-2022 10:09-0500 Heart rate 64 /min MD Imer Purcell Work Phone: [facility] 04-08-2022 10:09-0500 Respiratory rate 16 /min MD Imer Purcell Work Phone: [facility] 04-08-2022 10:09-0500 SaO2% (BldA) [Mass fraction] 100 % MD Imer Purcell Work Phone: [facility] 04-08-2022 10:09-0500 Systolic blood pressure 112 mm[Hg] MD Imer Purcell Work Phone: [facility] 04-08-2022 08:55-0500 Body height 160.02 cm MD Imer Purcell Work Phone: [facility] 04-08-2022 08:55-0500 Body temperature 98.2 [degF] MD Imer uPrcell Work Phone: [facility] 04-08-2022 08:55-0500 Body weight 74.84 kg MD Imer Purcell Work Phone: [facility] 03-23-2022 16:20-0500 Body height 163.83 cm Keagan Chadwick Other [facility] Other 03-23-2022 16:20-0500 Body mass index (BMI) [Ratio] 28.05 kg/m2 Keagan Chadwick Other [facility] Other 03-23-2022 16:20-0500 Body weight 75.3 kg Keagan Chadwick Other [facility] Other 02-11-2022 14:00-0400 Body height 163.83 cm Keagan Chadwick Other [facility] Other 02-11-2022 14:00-0400 Body mass index (BMI) [Ratio] 28.05 kg/m2 Keagan Chadwick Other [facility] Other 02-11-2022 14:00-0400 Body weight 75.3 kg Keagan Chadwick Other [facility] Other 11-30-2021 11:20-0400 Body height 163.83 cm Gino Paco Other [facility] Other 11-30-2021 11:20-0400 Body mass index (BMI) [Ratio] 28.12 kg/m2 Gino Paco Other [facility] 11-30-2021 11:20-0400 Body temperature 97.2 [degF] Gino Paco Other [facility] 11-30-2021 11:20-0400 Body weight 75.48 kg Gino Paco Other [facility] Other 11-30-2021 11:20-0400 Diastolic blood pressure 69 mm[Hg] Gino Paco Other [facility] 11-30-2021 11:20-0400 Respiratory rate 18 /min Gino Paco Other [facility] 11-30-2021 11:20-0400 SaO2% (BldA) [Mass fraction] 98 % Gino Paco Other [facility] 11-30-2021 11:20-0400 Systolic blood pressure 112 mm[Hg] Gino Paco Other [facility] 11-12-2021 11:54-0400 Body height 160 cm Atif Mendez MD Work Phone: [facility] 11-12-2021 11:54-0400 Body temperature 97.39 [degF] Atif Mendez MD Work Phone: [facility] 11-12-2021 11:54-0400 Body weight 78.47 kg Atif Mendez MD Work Phone: [facility] 11-12-2021 11:54-0400 Diastolic blood pressure 63 mm[Hg] Atif Mendez MD Work Phone: [facility] 11-12-2021 11:54-0400 Heart rate 62 /min Atif Mendez MD Work Phone: [facility] 11-12-2021 11:54-0400 SaO2% (BldA) [Mass fraction] 98 % Atif Mendez MD Work Phone: [facility] 11-12-2021 11:54-0400 Systolic blood pressure 140 mm[Hg] Atif Mendez MD Work Phone: [facility] 10-01-2021 10:31-0400 Body height 165.1 cm Atif Mendez MD Work Phone: [facility] 10-01-2021 10:31-0400 Body weight 80.74 kg Atif Mendez MD Work Phone: [facility] 10-01-2021 10:31-0400 Diastolic blood pressure 57 mm[Hg] Atif Mendez MD Work Phone: [facility] 10-01-2021 10:31-0400 Heart rate 70 /min Atif Mendez MD Work Phone: [facility] 10-01-2021 10:31-0400 SaO2% (BldA) [Mass fraction] 97 % Atif Mendez MD Work Phone: [facility] 10-01-2021 10:31-0400 Systolic blood pressure 122 mm[Hg] Atif Mendez MD Work Phone: [facility] 06-02-2021 12:00-0500 Body height 163.83 cm Gino Paco Other [facility] Other 06-02-2021 12:00-0500 Body mass index (BMI) [Ratio] 30.28 kg/m2 Gino Paco Other [facility] 06-02-2021 12:00-0500 Body temperature 96.6 [degF] Gino Paco Other [facility] 06-02-2021 12:00-0500 Body weight 81.29 kg Gino Paco Other [facility] Other 06-02-2021 12:00-0500 Diastolic blood pressure 61 mm[Hg] Gino Pcao Other [facility] Other 06-02-2021 12:00-0500 Respiratory rate 18 /min Gino Paco Other [facility] Other 06-02-2021 12:00-0500 SaO2% (BldA) [Mass fraction] 98 % Gino Paco Other [facility] 06-02-2021 12:00-0500 Systolic blood pressure 125 mm[Hg] Gino Paco Other [facility] Other Encounters Encounter Date Encounter Type Care Provider Facility Start: 06-16-2023 End: 06-16-[address] 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 Start: 03-21-2023 End: 03-23-2023 Encounter for other preprocedural examination [facility] Start: 03-21-2023 End: 03-23-2023 Evaluation and management of inpatient [facility] Start: 03-21-2023 End: 03-23-2023 Evaluation and management of inpatient Mireille Zurita MD Work Phone: [facility] 2 Comment on above: Spine disorder (Prim shante Dx); Preop testing; Cervical spondylosis with myelopathy; Coagulation defect, unspecified (CMS/HCC); Spinal stenosis, cervical region; Other spondylosis with myelopathy, cervical region; Acute post-operative pain; Drug-induced constipation; Normal pressure hydrocephalus syndrome (CMS/HCC); S/P cervical spinal fusion; Essential hypertension Start: 03-21-2023 End: 03-23-2023 Patient encounter status Mireille Zurita MD Work Phone: [facility] Work Phone: Start: 03-14-2023 End: 03-28-[address] [facility] Start: 03-14-2023 End: 03-14-2023 ambulatory IMER PURCELL [facility] Start: 03-14-2023 End: 03-14-2023 Subsequent hospital visit by physician Par X-Ray 5 [facility] Comment on above: Cervical spondylosis with myelopathy Start: 03-14-2023 End: 03-14-2023 Subsequent hospital visit by physician [facility] Comment on above: Cervical spondylosis with myelopathy Start: 02-01-2023 End: 02-01-2023 ambulatory Gino Barbosa Other [facility] Other Start: 02-01-2023 Office outpatient vi sit 25 minutes Gino Paco [facility] Neph[facility] Start: 01-20-[address] Imer Purcell Facility:[id number] Start: 01-20-2023 Office outpatient vi sit 15 minutes Imer Purcell Work Phone: [facility]fr[facility] Work Phone: Start: 01-03-2023 End: 01-03-[address] [facility] Facility:[facility] Start: 12-07-2022 Office outpatient ne w 45 minutes Imer Purcell Work Phone: [facility]Dxynlkxiuv[facility]-Bjtvrecid [facility] Work Phone: Start: 12-07-2022 ambulatory [facility] Facility :[id number] Start: 08-03-2022 Office outpatient vi sit 15 minutes Keagan Chadwick [facility] [place], operated by [facility] Start: 08-03-2022 End: 08-03-2022 ambulatory MD Imer Purcell Work Phone: [facility] Work Phone: Start: 08-03-2022 End: 08-03-2022 Patient encounter procedure MD Imer Purcell Work Phone: [facility] [address] Work Phone: Start: 07-30-2022 End: 07-30-2022 ambulatory Imer Purcell Facility:[facility] Start: 07-30-2022 End: 07-30-2022 ambulatory MD Imer Purcell Work Phone: [facility] Work Phone: Start: 07-30-2022 End: 07-30-2022 Patient encounter procedure MD Imer Purcell Work Phone: [facility] Work Phone: Start: 07-27-2022 End: 07-27-[address] IMER PURCELL . Facility:[facility] Start: 07-22-2022 Office outpatient vi sit 15 minutes Keagan Chadwick [facility] [place], operated by [facility] Start: 07-22-2022 End: 07-22-2022 ambulatory Imer Purcell Facility:[facility] Start: 07-22-2022 End: 07-22-2022 ambulatory MD Imer Purcell Work Phone: [facility] Work Phone: Start: 07-22-2022 End: 07-22-2022 Patient encounter procedure MD Imer Purcell Work Phone: [facility] [address] Work Phone: Start: 07-21-2022 End: 07-22-2022 ambulatory MARIKA ALBERTINA Facility:[facility] Start: 06-24-2022 End: 06-25-[address] IMER PURCELL . Facility:[facility] Start: 06-16-2022 End: 06-16-2022 ambulatory Gino Paco Other [facility] Other Start: 06-16-2022 Office outpatient vi sit 25 minutes Gino Paco [facility] Start: 06-08-2022 End: 06-08-2022 ambulatory Freda A Donn Facility:[facility] Start: 06-08-2022 End: 06-08-2022 ambulatory MD Imer Purcell Work Phone: [facility] Work Phone: Start: 06-08-2022 End: 06-08-2022 Patient encounter procedure MD Imer Purcell Work Phone: [facility] Work Phone: Start: 05-27-2022 End: 05-27-2022 ambulatory FREDA DONN Facility:[facility] Start: 05-27-2022 End: 05-27-2022 ambulatory Freda Donn [employer]LLARETTE SEPARATOR Work Phone: General Surgery Comment on above: S/P repair of paraes ophageal hernia (Primary Dx); Long-term current use of proton pump inhibitor therapy Start: 05-27-2022 End: 05-27-2022 Telemedicine consultation with patient Freda Pop MECHANICAL OXIDIZER.COLLARETTE SEPARATOR Work Phone: [facility] Start: 05-17-2022 End: 05-18-2022 ambulatory GINO PACO Facility: Start: 05-12-[address] IMER PURCELL . Facili ty:[facility] Start: 05-04-2022 End: 05-05-[address] IMER PURCELL . Facility: Start: 04-08-2022 End: 04-08-2022 ambulatory Jorge Ramirez Facility:[facility] Start: 04-08-2022 End: 04-08-2022 Admission to same day surgery center MD Imer Purcell Work Phone: [facility] Start: 04-08-2022 End: 04-08-2022 ambulatory MD Imer Purcell Work Phone: [facility] Work Phone: Start: 03-23-2022 End: 03-23-2022 ambulatory Keagan Chadwick Other [facility] Other Start: 03-23-2022 Office outpatient vi sit 15 minutes Keagan Chadwick [facility], [place], operated by [facility] Start: 03-22-2022 End: 03-22-2022 ambulatory Adan Gonzalez Facility:[facility] Start: 03-22-2022 End: 03-22-2022 Patient encounter procedure MD Imer Purcell Work Phone: [facility] [address] Start: 03-16-2022 End: 03-16-2022 ambulatory Ziyad Ngo Other [facility] Other Start: 03-16-2022 Telephone encounter Ziyad TREVIÑO [facility] [employer] Start: 02-11-2022 End: 02-11-2022 ambulatory Keagan Chadwick Other [facility] Other Start: 02-11-2022 Office outpatient vi sit 15 minutes Keagan Chadwick [facility] [place], operated by [facility] Start: 02-10-2022 End: 02-10-2022 ambulatory Imer Purcell Facility:[facility] Start: 02-10-2022 End: 02-10-2022 ambulatory MD Imer Purcell Work Phone: [facility] Work Phone: Start: 02-10-2022 End: 02-10-2022 Patient encounter procedure MD Imer Purcell Work Phone: [facility] [address] Start: 02-08-2022 End: 02-08-[address] IMER PURCELL . Facility:[facility] Start: 01-27-2022 End: 01-27-[address] IMER PURCELL . Facility:[facility] Start: 01-26-2022 End: 01-27-[address] IMER PURCELL . Facility:[facility] Start: 01-25-2022 End: 02-15-[address] IMER PURCELL . Facility:[facility] Start: 01-07-2022 End: 01-07-[address] IMER PURCELL . Facility:[facility] Start: 12-23-2021 End: 12-23-2021 ambulatory FREDA POP Facility:[facility] Start: 12-03-2021 End: 12-03-2021 ambulatory Freda Pop MECHANICAL OXIDIZER.COLLARETTE SEPARATOR Work Phone: General Surgery Comment on above: S/P repair of paraes ophageal hernia (Primary Dx); Paraesophageal hernia Start: 12-03-2021 End: 12-03-2021 Telemedicine consultation with patient Freda Pop APRN.COLLARETTE SEPARATOR Work Phone: [facility] Start: 11-30-2021 End: 11-30-2021 ambulatory Gino Paco Other [facility] Other Start: 11-30-2021 Office outpatient vi sit 25 minutes Gino Paco [facility] Neph[facility] Start: 11-26-2021 End: 11-27-2021 ambulatory GINO PACO [facility] [facility] Other Start: 11-26-2021 Telephone encounter Keagan Chadwick [facility], [place], operated by [facility] Start: 11-18-2021 ambulatory Atif Mendez MD [...] Dx) Start: 11-06-2021 End: 11-06-2021 ambulatory DOROTHY SPARROW Facility:[facility] Start: 11-04-2021 ambulatory Atif Mendez MD Work Phone: General Surgery Comment on above: Updated Medical hist ory Start: 11-03-2021 Telephone encounter Atif esposito MD Work Phone: Family Medicine [facility] Comment on above: Orders Start: 11-03-2021 End: 11-03-2021 ambulatory IMER PURCELL Facility:[facility] Start: 11-03-2021 Encounter for other preprocedural examination MONIKA GUERRERO [facility] Start: 10-23-2021 Telephone encounter Atif esposito MD Work Phone: General Surgery Comment on above: Request Outside [facility] Records Start: 10-21-2021 End: 10-21-2021 ambulatory OMNIKA GUERRERO Facility:[facility] Start: 10-06-2021 End: 10-06-2021 ambulatory Jorge Ramirez Other [facility] Other Start: 10-06-2021 Telephone encounter Jorge Smith [facility] Start: 10-02-2021 End: 10-02-2021 ambulatory Jorge Ramirez Other [facility] Other Start: 10-02-2021 Telephone encounter Jorge Smith [facility] Start: 10-01-2021 End: 10-01-2021 ambulatory MONIKA GUERRERO Facility:[facility] Start: 10-01-2021 End: 10-01-2021 Patient encounter procedure Atif Mendez MD Work Phone: General Surgery Comment on above: Paraesophageal herni a (Primary Dx) Start: 09-03-2021 Telephone encounter Atif esposito MD Work Phone: General Surgery Comment on above: Received Outside Med ical Records Start: 08-25-2021 End: 08-25-2021 ambulatory Jorge Ramirez Other [facility] Other Start: 08-25-2021 Telephone encounter Jorge TREVIÑO G Gastroenter[facility] Start: 08-12-2021 End: 08-12-2021 ambulatory Jorge Ramirez Other [facility] Other Start: 08-12-2021 Telephone encounter Jorge TREVIÑO G Gastroenter[facility] Start: 06-02-2021 End: 06-02-2021 ambulatory Gino Paco Other [facility] Other Start: 06-02-2021 Office outpatient vi sit 25 minutes Gino Paco [facility] Start: 01-12-2017 End: 01-13-2017 Ambulatory CATY SELLERSH Facility:[facility] Start: 01-07-2017 End: 01-08-2017 Ambulatory DEFAULT PHYSICIAN Facility:[facility] Procedures Date Procedure Procedure Detail Performing Clinician Start: 06-09-2023 XR CERVICAL SPINE 2-3 VIEWS MIREILLE ZURITA Start: 06-09-2023 Radex spine cervical 2 or 3 views Mireille Zurita MD Work Phone: Start: 05-05-2023 XR CERVICAL SPINE 2-3 VIEWS MIREILLE ZURITA Start: 03-28-2023 ECG 12-LEAD IMER HO Y Start: 03-28-2023 Ecg routine ecg w/le ast 12 lds trcg only w/o i&r Mireille Zurita MD Work Phone: Start: 03-23-2023 DISCHARGE PATIENT DOUGL BINH Start: 03-23-2023 Basic metabolic 2000 panel - Serum or Plasma IMER PURCELL Start: 03-23-2023 CBC panel - Blood by [...] Radex spine cervical 2 or 3 views Mary Patrick MECHANICAL OXIDIZER-NAPHTHALENE OPERATOR HELPER Work Phone: Start: 03-21-2023 IP CONSULT TO MEDICINE IMER HOY Start: 03-21-2023 PT EVAL AND TREAT DOUGL HOY Start: 03-21-2023 ADMIT TO INPATIENT [facility] Start: 03-21-2023 PULSE OXIMETRY, CONTINUOUS IMER HOY Start: 03-21-2023 XR CERVICAL SPINE 1 VIEW IMER HOY Start: 03-21-2023 End: 03-21-2023 PULSE OXIMETRY, CONTINUOUS Paty lewis MD Work Phone: Start: 03-21-2023 Radex spine 1 view s pecify level Mireille Zurita MD Work Phone: Start: 03-21-2023 XR CERVICAL SPINE 1 VIEW IMER HOY Start: 03-21-2023 Radex spine 1 view s pecify level Mireille Zurita MD Work Phone: Start: 03-21-2023 XR CERVICAL SPINE 1 VIEW IMER HOY Start: 03-21-2023 ADMIT TO INPATIENT [facility] Start: 03-21-2023 End: 03-21-2023 Radex spine 1 view specify level Mireille Zurita MD Work Phone: Start: 03-21-2023 End: 03-21-2023 Fusion Spine Anterior Cervical and Discectomy Mireille Zuriat MD Work Phone: Start: 03-14-2023 XR CHEST 2 VIEWS JULIANO PURCELL Start: 03-14-2023 STAPHYLOCOCCUS AUREU S/MRSA COLONIZATION, CULTURE IMER PURCELL Start: 03-14-2023 CBC panel - Blood by Automated count IMER PURCELL Start: 03-14-2023 COAGULATION SCREEN [facility] PURCELL Start: 03-14-2023 Comprehensive metabo lic 2000 [...] Screening for malign ant neoplasm of colon [facility] Start: 11-17-2024 DIABETES SCREEN DIABETES SCREEN [facility] Start: 11-03-2024 DIABETES SCREEN DIABETES SCREEN [facility] Start: 02-21-2024 DTaP/Tdap/Td Vaccine s (2 - Td or Tdap) DTaP/Tdap/Td Vaccines (2 - Td or Tdap) [facility] Start: 06-16-2023 End: 06-16-2023 Patient encounter procedure 06/16/2023 10:30 AM EST Office Visit [address] [phone] Mireille Zurita MD [address] [place] [id number] [facility] Start: 06-10-2023 End: 05-10-2024 XR Cervical spine 2 or 3 Views XR cervical spine 2-3 views Imaging Routine 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 stenosis of cervical region ([facility]/HCC) Expected: 06/10/2023, Expires: 05/10/2024 [facility] Service Area Work Phone: Comment on above: Expected: 06/10/2023 , Expires: 05/10/2024 Start: 05-12-2023 End: 05-12-2023 Patient encounter procedure 05/12/2023 8:30 AM EST Office Visit [address] [phone] Mireille Zurita MD [address] [place], [place] [phone] [facility] Start: 04-07-2023 End: 04-07-2023 Patient encounter procedure 04/07/2023 1:00 PM EST Office Visit [facility] [address] [facility] [address] [place] [phone] Araseli Faustin, MECHANICAL OXIDIZER-COLLARETTE SEPARATOR [address] [place] [address] [facility] Start: 03-21-2023 End: 03-21-2023 Admission to same day surgery center 03/21/2023 7:30 AM EST - 03/21/2023 1:00 PM EST Surgery [facility] [place] [address] [place] [phone] Mireille Zurita MD [address] [place] [address] C3-4, C4-5, C5-6, C6-7 ANTERIOR DISC EXCISION/ ALLOGRAFT FUSION & PLATE FIXATION WITH FLAT PLATE CERVICAL X-RAY [facility] [place] Comment on above: C3-4, C4-5, C5-6, C6 -7 ANTERIOR DISC EXCISION/ ALLOGRAFT FUSION & PLATE FIXATION WITH FLAT PLATE CERVICAL X-RAY Start: 03-21-2023 End: 03-21-2023 Fusion Spine Anterior Cervical and Discectomy Fusion Spine Anterior Cervical and Discectomy Spinal stenosis, cervical region Other spondylosis with myelopathy, cervical region 03/21/2023 7:30 AM EST [facility] Work Phone: Start: 03-21-2023 Subsequent hospital visit by physician 03/21/2023 6:00 AM EST Hospital Encounter [facility] [place] [address] [place] [phone] Mireille Zurita MD [address] [place] [address] Preop testing (Primary Dx); Cervical spondylosis with myelopathy; Coagulation defect, unspecified (CMS/HCC) [facility] [place] Comment on above: Preop testing (Prima ry Dx); Cervical spondylosis with myelopathy; Coagulation defect, unspecified (CMS/HCC) Start: 01-20-2023 FUV, Provider: Mireille Zurita, Status: Pen, Time: 1:30 PM FUV, Provider: Mireille Zurita, Status: Pen, Time: 1:30 PM [facility] Work Phone: Start: 01-07-2023 COVID-19 Vaccine () COVID-19 Vaccine () [facility] Start: 11-17-2022 SERUM CREATININE SERUM CREATININE [facility] Start: 11-03-2022 HEMOGLOBIN/HEMATOCRIT HEMOGLOBIN/HEM ATOCRIT [facility] Start: 11-03-2022 SERUM CREATININE SERUM CREATININE Cl [facility] Start: 07-31-2022 COVID-19 Vaccine (4 - Moderna series) COVID-19 Vaccine (4 - Moderna series) [facility] Start: 07-22-2022 XR pre/post mri xray XR pre/post mri xray [facility] Start: 07-22-2022 [facility] Start: 05-09-2022 ADVANCE DIRECTIVE DISCUSSION ADVANCE DIRECTIVE DISCUSSION [facility] Start: 05-09-2022 DEPRESSION ASSESSMENT DEPRESSION ASS ESSMENT [facility] Start: 04-08-2022 [facility] Start: 01-07-2022 Influenza vaccination [facility] Start: 10-01-2021 End: 12-01-2021 CREATININE BLD CREATININE BLD Lab Routine Paraesophageal hernia Expected: 10/01/2021, Expires: 12/01/2021 [facility] Work Phone: Comment on above: Expected: 10/01/2021 , Expires: 12/01/2021 Start: 07-09-2021 COVID-19 VACCINE (4 - Booster for Moderna series) COVID-19 VACCINE (4 - Booster for Moderna series) [facility] Start: 05-09-2021 ADVANCE DIRECTIVE DISCUSSION ADVANCE DIRECTIVE DISCUSSION [facility] Start: 05-06-2021 COVID-19 VACCINE (4 - Booster for Moderna series) COVID-19 VACCINE (4 - Booster for Moderna series) [facility] Start: 2017 BONE DENSITY BONE DENSITY [facility] Start: 2017 Pneumococcal Vaccine : 65+ Years (1 - PCV) Pneumococcal Vaccine: 65+ Years (1 - PCV) [facility] Start: 2017 PNEUMOCOCCAL: 65+ (1 - PCV) PNEUMOCOCCAL: 65+ (1 - PCV) [facility] Start: 2017 PNEUMOVAX AGE 65 AND OVER WITH 5YR LOOKBACK (#1) PNEUMOVAX AGE 65 AND OVER WITH 5YR LOOKBACK (#1) [facility] Start: 03-07-2016 DIABETES SCREEN DIABETES SCREEN [facility] Start: 04-17-2014 Zoster Vaccines (2 o f 3) Zoster Vaccines (2 of 3) [facility] Start: 2002 SHINGRIX VACCINE (1 of 2) SHINGRIX VACCINE (1 of 2) [facility] Start: 1997 COLOGUARD (FIT-DNA) COLOGUARD (FIT-D NA) [facility] Start: 1997 Colonoscopy COLONOSCOPY [facility] Start: 1997 COLORECTAL CANCER SCREENING COLORECTAL CANCER SCREENING [facility] Start: [address] COLONOGRAPHY [facility] Start: 1997 FECAL OCCULT BLOOD FECAL OCCULT BLOO D [facility] Start: 1997 LIPID SCREEN LIPID SCREEN [facility] Start: 1997 SIGMOIDOSCOPY SIGMOIDOSCOPY [facility] Start: 1992 Mammography MAMMOGRAM [facility] Start: 1992 Screening for malign ant neoplasm of breast Mammogram [facility] Start: 11-21-1971 Urine microalbumin profile DTAP,TDAP,TD (1 - Tdap) [facility] Start: 1970 ANNUAL PCP TEAM NON LICENSED NUCLEAR PLANT OPERATOR LENNY DISEASE VISIT ANNUAL PCP TEAM CHRONIC DISEASE VISIT [facility] Start: 1970 BP CONTROLLED (<130/80) BP CONTROLLE D (<130/80) [facility] Start: 1970 Diabetes mellitus screening Diabetes Screening [facility] Start: 1970 HEPATITIS C SCREENING HEPATITIS C [facility] Start: 1970 Hepatitis C screening Hepatitis C [facility] Start: 1964 Adult depression screening assessment DEPRESSION SCREENING [facility] Start: 1957 COVID-19 VACCINE (1) COVID-19 VACCIN E (1) [facility] Start: 1952 Lipid panel Lipid Panel [facility] Start: 1952 Medicare Annual Wellness Visit Medicare Annual Wellness Visit (AWV) [facility] Start: 1952 Screening for malign ant neoplasm of colon [facility] Start: 1952 Screening for osteoporosis Bone Density Scan [facility] End: 03-24-2023 Basic metabolic 2000 panel - Serum or Plasma Basic metabolic panel Lab Routine Morning draw (Lab) for 3 Occurrences starting 03/22/2023 until 03/24/2023, 2 completed [facility] Work Phone: Comment on above: Morning draw (Lab) f or 3 Occurrences starting 03/22/2023 until 03/24/2023, 2 completed End: 03-24-2023 CBC panel - Blood by Automated count CBC Lab Routine Morning draw (Lab) for 3 Occurrences starting 03/22/2023 until 03/24/2023, 2 completed [facility] Service Area Work Phone: Comment on above: Morning draw (Lab) f or 3 Occurrences starting 03/22/2023 until 03/24/2023, 2 completed End: 10-31-2022 Ct abdomen & pelvis w/contrast material CT ABD/PEL W IVCON Radiology Routine Paraesophageal hernia 1 Occurrences starting 10/01/2021 until 10/31/2022 [facility] Work Phone: Comment on above: 1 Occurrences starti ng 10/01/2021 until 10/31/2022 End: 09-28-2022 Esophageal motility study w/interp&rpt MANOMETRY ESOPHAGEAL Endoscopy Routine Paraesophageal hernia 1 Occurrences starting 10/01/2021 until 09/28/2022 [facility] Work Phone: Comment on above: 1 Occurrences starti ng 10/01/2021 until 09/28/2022 End: 03-21-2023 Incentive spirometry Instruct Incentive spirometry Instruct Respiratory Care Routine Once for 1 Occurrences starting 03/21/2023 until 03/21/2023 [facility] Work Phone: Comment on above: Once for 1 Occurrenc es starting 03/21/2023 until 03/21/2023 Noninvasive Ventilation Noninvas kyle Ventilation Respiratory Care Routine For RT frequency use only for continuous procedures with task-based reminders at 8a and 8p until discontinued starting 03/21/2023 [facility] Work Phone: Comment on above: For RT frequency use only for continuous procedures with task- based reminders at 8a and 8p until discontinued starting 03/21/2023 Patient Education Diverticulosis (DC) [facility] Work Phone: End: 03-22-2023 Urethral Catheter Removal Urethral Catheter Removal Procedures Routine Once for 1 Occurrences starting 03/22/2023 until 03/22/2023 [facility] Service Area Work Phone: Comment on above: Once for 1 Occurrenc es starting 03/22/2023 until 03/22/2023 End: 06-09-2023 XR Cervical spine 2 or 3 Views [facility] Service Area Work Phone: Comment on above: Once for 1 Occurrenc es starting 06/09/2023 until 06/09/2023 End: 03-14-2023 XR Chest 2 Views [facility] Service Area Work Phone: Comment on above: Once for 1 Occurrenc es starting 03/14/2023 until 03/14/2023 End: 10-31-2022 XR UPPER GI SINGLE CONTRAST XR UPPER GI SINGLE CONTRAST Radiology Routine Paraesophageal hernia 1 Occurrences starting 10/01/2021 until 10/31/2022 [facility] Work Phone: Comment on above: 1 Occurrences starti ng 10/01/2021 until 10/31/2022 [facility] Immunizations Immunization Date Immunization Notes Care Provider Zayda hoskins 03-02-2023 influenza virus vaccine, unspecified formulation Par 5 [facility] Work Phone: 03-02-2023 Respiratory Synctial Virus (Rsv), Unspecified Par 5 [facility] Work Phone: 06-05-2022 Moderna COVID-19 Biv al Booster 50 MCG/0.5ML Intramuscular Suspension Imer M Binh Work Phone: [facility]erl[facility]mn[facility] [address] Work Phone: 05-06-2022 Fluad Quadrivalent 0 .5 ML Intramuscular Prefilled Syringe Imer Cherry Binh Work Phone: LH-Rujrkdxxabto-Dvdky [facility] [address] Work Phone: 03-11-2021 COVID-19 mRNA-1273 (Moderna) MD Imer Purcell Work Phone: [facility] 08-10-2020 Moderna COVID-19 Vaccine 100 MCG/0.5ML Intramuscular Suspension Imer Cherry Binh Work Phone: LK-Gfigwccdxhyr-Hqosx [facility] Work Phone: 08-08-2020 COVID-19 mRNA-1273 (Moderna) MD Imer Purcell Work Phone: [facility] 07-11-2020 COVID-19 mRNA-1273 (Moderna) MD Imer Purcell Work Phone: [facility] 02-18-2020 Seasonal trivalent influenza vaccine, adjuvanted, preservative free Imer Purcell Work Phone: RA-Wrmtdqgfritc-Guvgi [facility] [address] Work Phone: 10-08-2015 influenza, seasonal, injectable Gino Paco Other [employer] Other 02-20-2014 tetanus toxoid, redu olena diphtheria toxoid, and acellular pertussis vaccine, adsorbed Imer Purcell Work Phone: NS-Wibzqarpzlqx-Oosop [facility] Work Phone: 02-20-2014 zoster vaccine, live Imer Purcell Work Phone: JB-Vsslkjkdjtcg-Wsdlk [facility] [facility] Work Phone: Payers Date Payer Category Payer Self-pay [id number] 2017 Medicare MEDICARE MEDICAR E A AND B [id number] 2017-Present [phone] [address] [address] [place] [address] Medicare [id number] 2017 Medicare [id number]. [id number] 2017 Private Health Insurance [employer] Darya ETNA MEDICARE SUPPLEMENT [id number] 2017-Present [phone] [address] [address] [place] [address] Indemnity [id number]. [id number] 2017 Private Health Insurance [id number] .[id number]. 2.7.3.194044.315 1959 Medicare [id number] 2.16.840.1.477483.19 1959 Private Health Insurance [facility] [id number] 2.16.840.1.974154.19 1959 Self-pay [id number] 1952 Unknown [id number] 2.16.840.1.830277.3.579. 2.593 1952 Unknown [id number] 2.16.840.1.105952.3.579. 2.593 1952 Unknown [id number] 2.16.840.1.932128.3.579. 2.593 1952 Unknown [id number] 2.16.840.1.692532.3.579. 2.593 1952 Unknown [id number] 2.16.840.1.967070.3.579. 2.593 1952 Unknown [id number] 2.16.840.1.161849.3.579. 2.593 1952 Unknown [id number] 2.16.840.1.635001.3.579. 2.593 1952 Unknown [id number] 2.16.840.1.135679.3.579. 2.593 1952 Unknown [id number] 2.16.840.1.718091.3.579. 2.593 1952 Unknown [id number] 2.16.840.1.532022.3.579. 2.593 1952 Unknown [id number] 2.16.840.1.436814.3.579. 2.593 1952 Unknown [id number] 2.16.840.1.075504.3.579. 2.593 1952 Unknown [id number] 2.16.840.1.687158.3.579. 2.356 1952 Unknown [id number] 2.16.840.1.656184.3.579. 2.356 1952 Unknown [id number] 2.16.840.1.423157.3.579. 2.1259 1952 Unknown [id number] 2.16.840.1.270057.3.579. 2.1246 1952 Unknown [id number] 2.16.840.1.598156.3.579. 2.124 1952 Unknown [id number] 2.16.840.1.330099.3.579. 2.1244 1952 Unknown [id number] 2.16.840.1.156182.3.579. 2.1244 1952 Unknown [id number] 2.16.840.1.301509.3.579. 2.1244 1952 Unknown [id number] 2.16.840.1.919896.3.579. 2.1247 1952 Unknown [id number] 2.16.840.1.845842.3.579. 2.1247 1952 Unknown [id number] 2.16.840.1.917815.3.579. 2.1247 1952 Unknown [id number] 2.16.840.1.969161.3.579. 2.[address] [facility] [id number] Unknown Unknown [id number] 2.16.840.1.696617.3.579. 2.531 Unknown [id number] 2.16.840.1.379815.3.579. 2.531 Unknown [id number] 2.16.840.1.611257.3.579. 2.531 Unknown [id number] 2.16.840.1.728936.3.579. 2.531 Unknown [id number] 2.16.840.1.748391.3.579. 2.531 Unknown [id number] 2.16.840.1.411464.3.579. 2.531 Unknown [id number] 2.16.840.1.585820.3.579. 2.531 Unknown [id number] 2.16.840.1.495611.3.579. 2.531 Social History Date Type Detail Facility Start: 08-06-2021 End: 05-10-2023 Tobacco smoking status FLIS Never smoked tobacco [facility] Start: 11-16-2004 Alcohol intake Not Asked [facility] Start: 1950 Sex Assigned At Not on file C [facility] History of tobacco use Chews Tobacco [facility] Start: 10-01-2021 End: 06-16-2023 Alcohol intake Current drinker of alcohol (finding) [facility] Start: 10-01-2021 History SDOH Alcohol Comment 1 drink monthly [facility] Start: 1950 Sex Assigned At Female C [facility] Start: 09-21-2021 End: 06-16-2023 Exposure to SARS-CoV-2 (event) Not sure [facility] Start: 03-21-2023 End: 05-10-2023 Sex Assigned At [facility] Start: 12-23-2021 End: 05-10-2023 Tobacco use and exposure Smokeless tobacco non-user [facility] Tobacco smoking stat [facility] Tobacco smoking consumption unknown [facility] Work Phone: Start: 03-22-2023 Tobacco use and exposure User of smokeless tobacco [facility] Work Phone: Start: 03-21-2023 End: 05-10-2023 History of Social function [facility] How often to you hav e a drink containing alcohol? Never [facility] How many standard drinks containing alcohol do you have on a typical day? Patient does not drink [facility] Work Phone: In the past 12 month s, was there a time when you were not able to pay the mortgage or rent on time? No [facility] Work Phone: Start: 03-22-2023 Alcohol Comment 1 drink/month [facility] Work Phone: How often to you hav e a drink containing alcohol? Monthly or less [facility] How many standard drinks containing alcohol do you have on a typical day? 1 or 2 [facility] Work Phone: Start: 04-03-2023 Gender identity Identifies as female gender (finding) [facility] Medical Equipment Procedure Code Equipment Code Equipment Origin al Text Equipment Identifier Dates Screw, Acp, Self Drill, 3.5 X 15mm, Variable - [id number] - [id number] Start: 03-21-2023 70 Mm 2.1 H Plate [id number] Start: 03-21-2023 Allograft, Triad Lordotic 7 X 11 X 14 - [id number] - [id number] Start: 03-21-2023 Allograft, [employer]ad Lordotic 6 X 11 X 14 - [id number] - [id number] Start: 03-21-2023 Allograft, Triad Lordotic 7 X 11 X 14 - [id number] - [id number] Start: 03-21-2023 Allograft, Triad Lordotic 7 X 11 X 14 - [id number] - [id number] Start: 03-21-2023 Goals Date Patient Goal Desired Activity /State Personal health goal Clinical Notes 06-02-2021 to 06-16-2023 Mireille Zurtia MD - 06/16/2023 10:30 AM Tahir Zurita MD - 05/10/2023 11:30 AM ESTCare Plan - Beth Bronson RN - 03/23/2023 10:06 AM Fermín Bronson RN - 03/23/2023 10:02 AM EST Note Date & Type Note Facility 06-16-2023 History of Present illness Narrative Images from the original note were not included. [facility] Department of Neurological Surgery Post Operative Patient [...] Refusal of blood transfusions as patient is Pentecostalism Renal artery aneurysm (CMS/HCC) Scoliosis Sleep apnea [...] MD, FAANS, FACS Board Certified Neurological Surgeon Premium Cancellation Clerk, Department of Neurological Surgery [facility] [address] Medical [facility] [address] [place] [address] [facility] [address] [place] [address] documented in this encounter [facility] Work Phone: 05-10-2023 History of Present illness Narrative [facility] Department of Neurological Surgery Post Operative Patient [...] Refusal of blood transfusions as patient is Pentecostalism Renal artery aneurysm (CMS/HCC) Scoliosis Sleep apnea [...] MD, FAANS, FACS Board Certified Neurological Surgeon Premium Cancellation Clerk, Department of Neurological Surgery [facility] [address] Medical [facility] Building [address] [place] [address] [facility] [address] [place] [address] documented in this encounter [facility] Work Phone: 03-23-2023 Plan of care note Problem: Pain Goal: Takes deep breaths with improved pain control throughout the shift 03/23/2023 100 by Beth Bronson RN Outcome: [...] by Beth Bronson RN Outcome: Progressing T. [facility] Work Phone: 03-23-2023 Miscellaneous Notes [...] Outcome: Progressing Goal: Prevent/minimize sheer/friction injuries 03/23/2023 100 by Beth Bronson RN Outcome: Adequate for Discharge 03/23/2023924 by Beth Bronson RN Outcome: Progressing Goal: Promote/optimize nutrition 03/23/2023 100 by Beth Bronson RN Outcome: Adequate for Discharge 03/23/2023924 by Beth Bronson RN Outcome: Progressing Goal: Promote skin healing 03/23/2023 1006 by Beht Bronson RN Outcome: Adequate for Discharge 03/23/2023924 [...] assistive devices by end of the shift 03/23/2023 100 by Beth Bronson RN Outcome: [...] Beth Bronson RN Outcome: Progressing 03/22/2023925 by Bteh Bronson RN Outcome: Progressing [...] for fall in the hospital 03/22/2023925 by Bteh Bronson RN Outcome: Progressing [...] - Assisting Anesthesia staff:Anesthesiologist: Paty Jewell MD MOTION AND TIME STUDY TEACHER: Man Bales APRN-MOTION AND TIME STUDY TEACHER Procedure: Procedure(s): C3-4, C4-5, C5-6, C6-7 ANTERIOR [...] Implant Name Type Inv. Item Serial No. Coffee Blender Lot No. LRB No. Used Action ALLOGRAFT, TRIAD LORDOTIC 7 X 11 X 14 - [id number] - [id number] Spinal Hardware ALLOGRAFT, TRIAD LORDOTIC 7 X 11 X 14 [id number] [employer] N/A 1 Implanted ALLOGRAFT, TRIAD LORDOTIC 6 X 11 X 14 - [id number] - [id number] Spinal Hardware ALLOGRAFT, TRIAD LORDOTIC 6 X 11 X 14 [id number] [employer] N/A 1 Implanted ALLOGRAFT, TRIAD LORDOTIC 7 X 11 X 14 - [id number] - [id number] Spinal Hardware ALLOGRAFT, TRIAD LORDOTIC 7 X 11 X 14 [id number] [employer] N/A 1 Implanted ALLOGRAFT, TRIAD LORDOTIC 7 X 11 X 14 - [id number] - [id number] Spinal Hardware ALLOGRAFT, TRIAD LORDOTIC 7 X 11 X 14 [id number] [employer] N/A 1 Implanted SCREW, ACP, SELF DRILL, 3.5 X 15MM, VARIABLE - [id number] Spinal Hardware SCREW, ACP, SELF DRILL, 3.5 [...] her head was placed in a beanbag head sulfide operator. The arms were tucked by her side. [...] appropriately. I used the awl to place remote pilot operator holes in the 5 vertebral bodies 1 [...] Mireille Zurita MD documented in this encounter [facility] Work Phone: 03-23-2023 Nurse Note Message sent to Dr zurita and Araseli Faustin regarding patient requesting nausea medication. Araseli states she will send Patient aware [facility] Work Phone: 03-23-2023 Nurse Note Message sent to Dr zurita and Araseli Faustin regarding patient requesting nausea medication. Araseli states she will send Patient aware documented in this encounter [facility] Work Phone: 03-23-2023 Plan of [...] by end of the shift Outcome: Progressing [facility] Work Phone: 03-23-2023 Hospital course [...] Department Center 04/07/2023 1:00 PM PUSH[facility] [place] [id number] [place] 05/12/2023 8:30 AM Mireille Zurita MD [id number] [place] 06/16/2023 10:30 AM Mireille Zurita MD [id number] [place] [facility] [place] documented in this encounter [facility] Work Phone: 03-23-2023 Hospital Discharge instructions Araseli Anguiano PUSHPA Faustin - 03/23/2023 5:28 AM EST May shower. Do not let water directly flow on incision. Dab / pat incision dry. DO NOT TOUCH INCISION Wear cervical collar at all times Walk hourly while awake. May not drive while wearing cervical collar. Keep hydrated. Soft regular diet documented in this encounter [facility] Work Phone: 03-22-2023 History of [...] insurance, address, phone. 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 d/t c-collar PT Discharge Recommendations: No [...] arms/legs causing loss of sleep and limitations, evp chief exploration officer shunt, r artery aneurysm repair, sob w/ [...] Prior Function Per Pt/Caregiver Report Level of [place]: (indep) Homemaking Assistance: (indep home mgmt and driving) Precautions: Precautions Precautions Comment: (aspen c-collar, up in chair) Vital Signs: Objective Pain: Pain Assessment Pain Assessment: (3-08/16 sx site) Sensation numbness tingling Cognition: Cognition [...] LLE : Within Functional Limits Outcome Measures: [facility] Basic Mobility Turning from your back to [...] pain, numbness/tingling B arms/legs, loss of sleep, BRICKMASON CONTRACTOR shunt, Prior to Session Communication: Bedside nurse Patient Position Received: Bed, 2 rail up Precautions: Precautions Comment: Vance collar, cervical precautions, Pain: Pain Assessment Pain Assessment: 0-10 Pain Score: 3 Pain Type: Surgical pain Pain Location: Neck Objective Cognition: Overall Cognitive Status: Within Functional Limits Home Living: Lives With: (alone; nieces supportive/will stay with patient upon discharge home. Bed/bath 1st floor, independent without device, drives. Owns rollator, cane, tub/shower with seat, grab bar & hand held shower,) Prior Function: Level of [place]: Independent with ADLs and functional transfers ADL: [...] Functional Limits LUE: Within Functional Limits Outcome Measures:[facility] Daily Activity Putting on and taking off [...] Demonstrated Understanding: yes documented in this encounter [facility] Work Phone: 03-22-2023 Consult note Associated Order (s): Inpatient consult to Medicine Inpatient consult to Medicine Consult performed by: Leticia Farris APRN-COLLARETTE SEPARATOR Consult ordered by: Mary Patrick APRN-NAPHTHALENE OPERATOR HELPER Reason for consult: medical management History Of [...] Refusal of blood transfusions as patient is Pentecostalism, Renal artery aneurysm (CMS/HCC), Scoliosis, and Sleep [...] - per primary/surgery service protocol Leticia Farris [facility] Medicine Associated attestation - Robert Mack DO [...] you for this consult Robert Mack DO [facility] Medicine [facility] Work Phone: 03-22-2023 Consult note Associated Order (s): Inpatient consult to Medicine Inpatient consult to Medicine Consult performed by: Leticia Farris APRN-[facility] Consult ordered by: Mary Patrick APRN-NAPHTHALENE OPERATOR HELPER Reason for consult: medical management History Of [...] Refusal of blood transfusions as patient is Pentecostalism, Renal artery aneurysm (CMS/HCC), Scoliosis, and Sleep [...] - per primary/surgery service protocol Leticia Farris, [facility] Medicine Associated attestation - Robert Mack DO [...] you for this consult Robert Mack DO [facility] Reason For Consult Intra-op evaluation of thyroid [...] Fernando Christine MD documented in this encounter [facility] Work Phone: 03-22-2023 Plan of [...] Bronson RN Outcome: Progressing 03/22/2023921 by Beth Velotta, RN Outcome: Progressing Goal: Prevent/minimize sheer/friction injuries [...] Beth Bronson RN Outcome: Progressing 03/22/2023921 by Bteh Bronson RN Outcome: Progressing Goal: Be free [...] Beth Bronson RN Outcome: Progressing 03/22/2023921 by Beht Bronson RN Outcome: Progressing Goal: Pace activities to prevent fatigue by end of the shift 03/22/2023927 by Beth Bronson RN Outcome: Progressing 03/22/2023925 by Beth Bronson RN Outcome: Progressing 03/22/2023921 by Beth Bronson RN Outcome: Progressing [facility] Work Phone: 03-22-2023 Plan of [...] 03/22/2023921 by Beth Bronson RN Outcome: Progressing [facility] Work Phone: 03-22-2023 Plan of care [...] by end of the shift Outcome: Progressing [facility] Work Phone: 03-22-2023 Note Formatting of this [...] Plan for discharge home 03/23/2023 PUSHPA V[place] [facility] Work Phone: 03-21-2023 Plan of care note [...] goals for the shift include pain control [facility] 03-21-2023 Plan of care note Problem: Pain [...] Progressing Goal: Promote skin healing Outcome: Progressing [facility] Work Phone: 03-21-2023 Consult note Formatting of [...] care of this patient. Fernando Christine MD [facility] Work Phone: 03-21-2023 Note Formatting [...] - Assisting Anesthesia staff:Anesthesiologist: Paty Jewell MD MOTION AND TIME STUDY TEACHER: Man Bales APRN-MOTION AND TIME STUDY TEACHER Procedure: Procedure(s): C3-4, C4-5, C5-6, C6-7 ANTERIOR [...] Implant Name Type Inv. Item Serial No. Coffee Blender Lot No. LRB No. Used Action ALLOGRAFT, TRIAD LORDOTIC 7 X 11 X 14 - [id number] - [id number] Spinal Hardware ALLOGRAFT, TRIAD LORDOTIC 7 X 11 X 14 [id number] [employer] N/A 1 Implanted ALLOGRAFT, TRIAD LORDOTIC 6 X 11 X 14 - [id number] - [id number] Spinal Hardware ALLOGRAFT, TRIAD LORDOTIC 6 X 11 X 14 [id number] [employer] N/A 1 Implanted ALLOGRAFT, TRIAD LORDOTIC 7 X 11 X 14 - [id number] - [id number] Spinal Hardware ALLOGRAFT, TRIAD LORDOTIC 7 X 11 X 14 [id number] [employer] N/A 1 Implanted ALLOGRAFT, TRIAD LORDOTIC 7 X 11 X 14 - [id number] - [id number] Spinal Hardware ALLOGRAFT, TRIAD LORDOTIC 7 X 11 X 14 [id number] [employer] N/A 1 Implanted SCREW, ACP, SELF DRILL, 3.5 X 15MM, VARIABLE - [id number] Spinal Hardware SCREW, ACP, SELF DRILL, 3.5 [...] her head was placed in a beanbag head sulfide operator. The arms were tucked by her side. [...] appropriately. I used the awl to place remote pilot operator holes in the 5 vertebral bodies 1 [...] the operation. Complication: None Mireille Zurita MD [facility] Work Phone: 03-21-2023 Attending History and physical note H&P reviewed. The patient was examined and there are no changes to the H&P. Source Note - ThaniaMelinda Kingrosa maria, MECHANICAL OXIDIZER-COLLARETTE SEPARATOR - 03/14/2023 12:30 PM EST CPM/PAT Evaluation [...] Denies past issues with anesthesia. Reports current BRICKMASON CONTRACTOR shunt (2006), and hx of Right renal [...] plate cervical x-ray w/Dr Zurita on 03/21/2023 [facility] Work Phone: 03-21-2023 History and physical note H&P reviewed. The patient was examined and there are no changes to the H&P. Source Note - Jane Caro, MECHANICAL OXIDIZER-COLLARETTE SEPARATOR - 03/14/2023 12:30 PM EST CPM/PAT Evaluation [...] Denies past issues with anesthesia. Reports current BRICKMASON CONTRACTOR shunt (2006), and hx of Right renal [...] Zurita on 03/21/2023 documented in this encounter [facility] Work Phone: 02-01-2023 Evaluation note [...] symptoms. Also she can follow-up with her salesperson pianos and organs due to the urinary incontinence. [employer] Other 08-01-2023 History of Present illness Narrative* The patient who is a 72-year-old female came in today with a friend to discuss cervical pain and back of head pain that she has been experiencing. 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 I also suggested that she start considering getting second opinions. I am going tosee her back after the CAT scan of her cervical spine is done and we will talk about which operation to the cervical spine we would be recommending. [place] [address] Work Phone: [phone] Evaluation note* Encounter Date Diagnosis Assessment Notes Treatment Notes Treatment Clinical Notes Jul, BRICKMASON CONTRACTOR (ventriculoperito kym) shunt status (ICD-10 - Z98.2) [...] with the patient who understands and agrees [employer] Other 03-16-2023 Evaluation note* Encounter Date Diagnosis Assessment Notes Treatment Notes Treatment Clinical Notes Jul, BRICKMASON CONTRACTOR (ventriculoperito kym) shunt status (ICD-10 - Z98.2) [...] as-needed basis. Her shunt pumps quite well [employer] Other 02-16-2023 NotePROCEDURE: XR KNEE RT 4V [...] authenticated by: ANA ROSA BELLO Date: 2022-06-24 11:33[facility]02-08-2023 Evaluation note* Encounter Date Diagnosis Assessment Notes [...] She reported to have Osteoporosis . Continue [employer] Other 01-19-2023 NoteHNO ID: [id number] Author: Freda Pop APRN.COLLARETTE SEPARATOR Service: ? Author Type: Nurse Practitioner Type: [...] Freda Pop APRN.EMANUEL General Surgery Digestive Disease [facility] Medical Decision Making: Problems: Moderate: 1+ chronic illnesses with change Risk: Moderate: Drug management Medical Decision Making [facility]: [facility] Inst[facility]* Patient Instructions* Freda Pop APRN.CNP - 05/27/2022 8:56 AM EST Continue Prevacid (lansoprazole) 30 mg daily or similar indefinitely We'll check your Upper GI, let us know once you get it so that we can be sure to get the results documented in this encounter[address]19-2023 History of Present illness Narrative* Freda Pop, MECHANICAL OXIDIZER.COLLARETTE SEPARATOR - 05/27/2022 8:30 AM EST Images from [...] Freda Pop APRN.EMANUEL General Surgery Digestive Disease [facility] Medical Decision Making: Problems: Moderate: 1+ chronic illnesses with change Risk: Moderate: Drug management Medical Decision Making Level: 4 - Moderate documented [facility] Procedure [facility]11-15-2022 Evaluation note* Encounter Date Diagnosis Assessment Notes [...] reviewed these x-rays and confirmed the measurement [employer] Other 10-06-2022 Evaluation note* Encounter Date Diagnosis [...] her. A new referral will be sent. [employer] Other 08-17-2022 NoteHNO ID: [id number] Author: Freda Pop APRN.COLLARETTE SEPARATOR Service: ? Author Type: Nurse Practitioner Type: Progress Notes Filed: 12/23/2021 10:45 AM Note Text: GENERAL SURGERY CLINIC FOLLOW UP NOTE Clinic Date: 12/23/2021 Mary Goode, 71 year old [address] [place] [address] CHIEF COMPLAINT: Patient presents with: Post Op [...] Freda Pop APRN.EMANUEL General Surgery [facility] NoteHNO ID: [id number] Author: Freda Pop APRN.EMANUEL Service: ? Author [...] 12/03/2021 Mary Goode, 71 year old [address] [facility] [address] CHIEF COMPLAINT: Patient presents with: Post Op [...] intact, no signs of infection PHYSICAL EXAM: [facility] 05/31/2006 - virtual visit GENERAL: No [...] Freda Pop APRN.EMANUEL General Surgery Digestive Disease [facility] 03[facility] History of Present illness Narrative* Freda [...] 12/03/2021 Mary Goode, 71 year old [address] [facility] [address] CHIEF COMPLAINT: Patient presents with: Post Op [...] intact, no signs of infection PHYSICAL EXAM: [facility] 05/31/2006 - virtual visit GENERAL: No [...] Freda Pop APRN.CNP General Surgery Digestive Disease [facility] December 03, 2021 documented in this encounter[facility] Instructions* Patient Instructions* Freda Pop APRN.CNP - [...] then activity as tolerated documented in this encounter[facility]-20[facility] Evaluation note* Encounter Date Diagnosis Assessment Notes [...] She reported to have Osteoporosis . Continue [employer] Other 07-12-2022 NoteHNO ID: [id number] Author: Angeli Rivas RN Service: Care Management [...] 17, 2021 TIME: 8:34 PM PAGER/CONTACT #: [phone] Disclaimer: The information in this determination is [...] the process utilized to ensure compliance with [facility] policy regarding Inpatient Admission and Observation [...] physician's order as documented evidence of concurrence. [facility]07-12-2022 NoteHNO ID: [id number] Author: Tony Cox MD Service: General Surgery [...] questions during the weekdays, please contact the [facility] service pager, [phone] For questions during the nights and weekends, please contact the OnCall pager, [phone] NoteHNO ID: [id number] Author: Terry Villavicencio APRN.CRNA Service: Anesthesiology Author Type: Nurse Cytology Manager Type: Anesthesia Procedure Notes Filed: 11/16/2021 12:19 [...] November 16, 2021 TIME: 12:19 PM CSN: [id number] NoteHNO ID: [id number] Author: Terry Villavicencio APRN.CRNA Service: Anesthesiology Author Type: Nurse Cytology Manager Type: Anesthesia Procedure Notes Filed: 11/16/2021 12:19 PM Note Text: ANESTHESIOLOGY PROCEDURE NOTE Airway General Information Procedure Start Time/Medication Administration: 11/16/2021 11:50 AM Patient location during procedure: OR Patient identity confirmed: arm band, care child care team lead and patient Staffing Anesthesiologist: Julian Dotson MD MOTION AND TIME STUDY TEACHER: Terry Villavicencio APRN.MOTION AND TIME STUDY TEACHER Performed by: SHEA Indications and Patient Condition [...] lips intact post intubation. SIGNATURE: Terry Villavicencio APRN.MOTION AND TIME STUDY TEACHER PATIENT NAME: Mary Goode DATE: November 16, 2021 TIME: 12:18 PM CSN: [id number] NoteHNO ID: [id number] Author: Riky Moura RN Service: ? Author [...] Riky Moura RN In Department: GENERAL SURGERY [facility]07-07-2022 History of Present illness Narrative* Riky Moura [...] In Department: GENERAL SURGERY documented in this encounterSelect [facility]-07-2022 NoteEducation ([facility]) MONIQUEMARY CHÁVEZ ([id number]) 1950 F [place] Date Time Provider Department 11/12/21 RIKY MOURA (RN) [facility] Reason for Visit: Education Of Patient/family [904] [...] Encounter Status:Closed by RIKY MOURA RN on 11/12/21[facility] 11-12-2021 NoteHNO ID: [id number] Author: Atif Mendez MD Service: ? Author Type: Physician Type: Progress Notes Filed: 11/12/2021 1:39 PM Note Text: SURGERY PREOPERATIVE VISIT NOTE Name: Mary Goode Medical Record: [id number] Encounter No.: [id number] Mary Goode is a 70 year old female seen in surgery clinic today for their final preoperative assessment. INTERVAL NOTE: Patient needed to discuss regarding surgery. She is currently scheduled for a paraesophageal hernia repair. 10/21/2021 CT A/P 10/16/2021 esophageal manometry View External Imaging - Miscellaneous Imaging [ID [id number]] 10/07/2021 UGI Scan on 10/27/2021 ?8:25 AM by External Provider: GI BMI 31 PLANNED PROCEDURE: Paraesophageal hernia repair, possible Monico fundoplication. Patient is a Pentecostalism. We have discussed regarding not doing a fundoplication if risk of recurrence is assessed to be on the higher side intraoperatively. PAST MEDICAL HISTORY: PAST MEDICAL HISTORY Diagnosis Date - Congenital hydrocephalus (HCC) s/p BRICKMASON CONTRACTOR shunt - Essential hypertension - ADITI (obstructive sleep apnea) - Patient is Pentecostalism PAST SURGICAL HISTORY: PAST SURGICAL HISTORY Procedure Laterality Date - APPENDECTOMY - COLONOSCOPY - EGD - HYSTERECTOMY HX 2008 - PAST SURGICAL HISTORY OF 2012 coil embolization for right renal aneurysm( Aguilera) - PAST SURGICAL HISTORY OF 2006 BRICKMASON CONTRACTOR shunt - PAST SURGICAL HISTORY OF partial [...] re herniation of t (more content not included)...[facility] 11-12-2021 Nurse Note* Joan Jung Ma - 11/12/2021 11:55 AM EDT What is the reason for your visit today? Pre op Who is your referring physician? Are you having poor oral intake? NO Have you had unintentional weight loss of 15 lbs/7 Kg in the last 3-6 months? NO Bowels: constipated Wound: Temperature: No Drains: No documented in this encounterSelect [facility]-07-2022 History of Present illness Narrative* Atif Mendez MD - 11/12/2021 11:30 AM EDT SURGERY PREOPERATIVE VISIT NOTE Name: Mary Goode Medical Record: [id number] Encounter No.: [id number] Mary Goode is a 70 year old female seen in surgery clinic today for their final preoperative assessment. INTERVAL NOTE: Patient needed to discuss regarding surgery. She is currently scheduled for a paraesophageal herniarepair. 10/21/2021 CT A/P 10/16/2021 esophageal manometry View External Imaging - Miscellaneous Imaging [ID [id number]] 10/07/2021 UGI Scan on 10/27/2021 8:25 AM by External Provider: GI BMI 31 PLANNED PROCEDURE: Paraesophageal hernia repair, possible Monico fundoplication. Patient is a Pentecostalism. We have discussed regarding not doing a fundoplication if risk of recurrence is assessed to be on the higher side intraoperatively. PAST MEDICAL HISTORY: PAST MEDICAL HISTORY Diagnosis Date Congenital hydrocephalus (HCC) s/p BRICKMASON CONTRACTOR shunt Essential hypertension ADITI (obstructive sleep apnea) Patient is Pentecostalism PAST SURGICAL HISTORY: PAST SURGICAL HISTORY Procedure Laterality Date APPENDECTOMY COLONOSCOPY EGD HYSTERECTOMY HX 2008 PAST SURGICAL HISTORY OF 2012 coil embolization for right renal aneurysm( Aguilera) PAST SURGICAL HISTORY OF 2006 BRICKMASON CONTRACTOR shunt PAST SURGICAL HISTORY OF partial right [...] on recommendations of the Governor of the [facility]. Although we will perform appropriate precautions [...] patient. Atif Mendez MD documented in this encounter[facility]-29-2022 Miscellaneous Notes* Telephone Encounter - Gee Meeks Ma - 11/04/2021 2:49 PM EDT Patient scheduled 11/06 in [place] for ECHO * Telephone Encounter - Gee Meeks Ma - 11/03/2021 10:39 AM EDT Patient is in need of Echo before 11/16 for surgery. Is anyone able to assist in getting the patientin for this? documented in this encounterSelect Medical [facility]06-21-2022 Miscellaneous Notes* Telephone Encounter - Jonathon Dobson - 10/27/2021 3:58 PM EDT Records received and scanned.on 10/27 listed under GI and external imaging Misc. Not sure who scanned these. Thanks! * Telephone Encounter - Sabine Victoria Pss - 10/23/2021 12:04 PM EDT [facility] Sent fax to [phone] -Manometry 6.. -Upper GI 6.05.30 Sabine Victoria Pss documented in this encounterSelect [facility]06-15-2022 NoteHNO ID: [id number] Author: RT Boni(R) Service: ? Author Type: [...] BY: RT Boni(R) October 21, 2021 8:43 [facility]06-15-2022 NoteHNO ID: [id number] Author: Janay Jeffrey RN Service: ? Author [...] Goode DATE: October 21, 2021 TIME: 8:28 [facility]05-31-2022 Evaluation note* Encounter Date Diagnosis Assessment Notes Treatment Notes Treatment Clinical Notes September, Paraesophageal herni a (ICD-10 - K44.9) [facility] Other 05-26-2022 NoteHNO ID: [id number] Author: Atif Mendez MD Service: ? Author [...] 70 year old female who is a Spiritism PMH of congenital hydrocephalus ( BRICKMASON CONTRACTOR shunt), HTN, patient of Monika Guerrero MD, referred to me by Dr Ramirez for hiatal hernia with severe GERD symptoms. Patient reports heart burn, excess salivation and occasional regurgitaion. She denies any ALARM features including weight loss, GIB, odynyophagia or dysphagia. Her PSH include open appendectomy, JUANI, and BRICKMASON CONTRACTOR shunt placement. The patient's most recent EGD was done in 09/03 and the report is included below Chart Review: -hx: worsening GERD - referred by Dr. Ramirez for GERD/Hiatal Hernia Scan on 09/03/2021 ?9:36 AM by Jonathon Dobson: [facility] progress note 07/22/2021 Dr. Ramirez - 08/06/2021 EGD Scan on 09/03/2021 ?9:35 AM by Jonathon Dobson: [facility] EGD 08/06/2021 Dr. Ramirez -09/17/2015 EGD Scan on 09/03/2021 ?9:33 AM by Jonathon Dobson: [facility] Operative report 09/17/2015 Dr. Walter Difficulty swallowing [...] 70 year old female who is a Spiritism PMH of congenital hydrocephalus ( BRICKMASON CONTRACTOR shunt), HTN, who presents with paraesophageal hernia [...] above but most relevantly she is a Pentecostalism. She does not smoke and does not consume alcohol on a regular basis. Her physical examination reveals lower midline hernia for a total abdominal hysterectomy. She has a previous history of a BRICKMASON CONTRACTOR shunt for congenital hydrocephalus, has not followed up with a neurosurgeon for several years. (more content not included)...[facility]05-26-2022 History of Present illness Narrative* Atif Mendez MD - 10/01/2021 10:37 AM EDT NEW [place]EG[place] PATIENT PATIENT NAME: Mary Goode REASON FOR CONSULT: Hiatal hernia REQUESTING PHYSICIAN: Dr. Mcconnell DATE of SERVICE: 09/25/2021 TIME of SERVICE: 12:16 PM PCP: Monika Guerrero MD Chief Complaint: refractory GERD History of present illness: Mary Goode is a 70 year old female who is a Spiritism PMH of congenital hydrocephalus ( BRICKMASON CONTRACTOR shunt), HTN, patient of Monika Guerrero MD, referred to me by Dr Ramirez for hiatalhernia with severe GERD symptoms. Patient reports heart burn, excess salivation and occasional regurgitaion. She denies any ALARM features including weight loss, GIB, odynyophagia or dysphagia. Her PSH include open appendectomy, JUANI, and BRICKMASON CONTRACTOR shunt placement. The patient's most recent EGD was done in09/03 and the report is included below Chart Review: -hx: worsening GERD - referred by Dr. Ramirez for GERD/Hiatal Hernia Scan on 09/03/2021 9:36 AM by Jonathon Dobson: [facility] progress note 07/22/2021 Dr. Ramirez - 08/06/2021 EGD Scan on 09/03/2021 9:35 AM by Jonathon Dobson: [facility] EGD 08/06/2021 Dr. Raimrez -09/17/2015 EGD Scan on 09/03/2021 9:33 AM by Jonathon Dobson: [facility] Operative report 09/17/2015 Dr. Walter Difficulty swallowing [...] 70 year old female who is a Spiritism PMH of congenital hydrocephalus ( BRICKMASON CONTRACTOR shunt), HTN, who presents with paraesophageal hernia [...] above but most relevantly she is a Pentecostalism. She does not smoke and does not consume alcohol on a regular basis. Her physical examination reveals lower midline hernia for a total abdominal hysterectomy. She has a previous history of a BRICKMASON CONTRACTOR shunt for congenital hydrocephalus, has not followed [...] to look at the anatomy of the BRICKMASON CONTRACTOR shunt. She will see me back as soon as these are done and we will get her scheduled for surgery. Upper GI Manometry CT abdomen pelvis Pentecostalism Weight loss as possible I have discussed [...] Level: 4 - Moderate [facility] Nurse Note* Yolanda Castro MA - 10/01/2021 [...] Temperature: No Drains: No [facility] Miscellaneous Notes* Telephone Encounter - Jonathon Dobson - 09/03/2021 9:37 AM EDT Received medical records from Dr. Ramirez. Progress Note 07/22/2021 EGD [id number] Old Operative Report 09/17/2015 Please review. [facility] Evaluation note* Encounter Date Diagnosis Assessment Notes [...] reported to have Osteoporosis . Continue Prolia [facility] Other Chiac complaint Narrative - Reported* Patient is being seen for an initial Neurosurgical evaluation and Patient is referred by Dr. Adan Gonzalez for a 2nd opinion on her cervical spine. * Pt. is experiencing low back and neck pain. Pt. describes her symptoms as aching with tingling in the left shoulder area, and that the symptoms are constant. [id number] [address] Work Phone: Evaluation note* Diagnosis Paraesophageal hernia- Primary Diaphragmatic hernia without mention of obstruction or gangrene documented in this [facility] noteNo InformationNort ZeroMail Other Evaluation note* Diagnosis Paraesophageal hernia- Primary Diaphragmatic hernia without mention of obstruction or gangrene Paraesophageal hernia Diaphragmatic hernia without mention of obstruction or gangrene documented [facility]* Diagnosis Encounter for education- Primary Counseling NOS Paraesophageal hernia Diaphragmatic hernia without mention of obstruction or gangrene documented [facility] this [facility]* Diagnosis S/P repair of paraesophageal hernia- Primary Other postprocedural status Paraesophageal hernia Diaphragmatic hernia without mention of obstruction or gangrene documented [facility] this encounter [facility] noteNo assessment information [facility] Work Phone: Evaluation note* Diagnosis S/P repair of paraesophageal hernia- Primary Other postprocedural status Long-term current use of proton pump inhibitor therapy documented [facility] this [facility]* Diagnosis Preop testing- Primary Unspecified pre-operative examination Cervical spondylosis with myelopathy Coagulation defect, unspecified (CMS/HCC) Cervical spondylosis with myelopathy Spinal stenosis, cervical region Other spondylosis with myelopathy, cervical region documented in this encounter [facility] Work Phone: Evaluation note* Diagnosis [...] unspecified back disorder documented in this encounter [facility] Work Phone: Evaluation note* Diagnosis Cervical spondylosis with myelopathy documented in this encounter [facility] Work Phone: Evaluation note* Diagnosis Cervical spondylosis with myelopathy documented in this encounter [facility] Work Phone: Evaluation note* Diagnosis 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 documented in this encounter [facility] Work Phone: Evaluation note* Diagnosis 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) documented in this encounter [facility] Work Phone: Evaluation note* Diagnosis 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) documented in this encounter [facility] Work Phone: Evaluation note* Diagnosis 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 Status post cervical spinal fusion Arthrodesis status documented in this encounter [facility] Work Phone: History and physical note Author Jorge Ramirez [facility] April 08, 2022 9:25am Note Date/Time April 08, 2022 9 :25am [facility] [address] [place] [address] Gastroenterology H&P Signed Patient: Mary Goode MR#: [id number] : 1950 Acct:[id number] Age/Sex: 71 / F Adm Date: 2 Loc: Room: Type: [facility] Attending Dr: Jorge Ramirez MD Copies [...] <Electronically signed by Jorge Ramirez MD> 04/08/22924 [facility] Work Phone: History general Narrative - Reported* Type Description Date Medical History hypertension dx age 47 Medical History HX hypokalemia 2005 Medical History HX hydrocephalus 2006 Medical History hx of renal insufficiency Medical [...] aldoste ronism Hospitalization History same as above [facility] Other History general Narrative - Reported* Type [...] aldoste ronism Hospitalization History same as above [facility] Other History of Present illness Narrative* The [...] would like toproceed. * She is a Pentecostalism and so we definitely discussed not using blood products. She also has a BRICKMASON CONTRACTOR shunt and and so we are going to make certain that the monitoring team knows where the tubing is so that we do not accidentally stick in electrode into it. She is going to consider her options and tell us when she wants to schedule the surgery. [id number] [address] Work Phone: Hospital Discharge instructions [...] NOT operate machinery such as power tools, Just[employer]sn mowers, snow blowers, sewing machines, etc. for [...] Follow up with PCP. - Office number [phone].[facility] Work Phone: Reason for referral (narrative)* Consultation (Routine) - Pending Review Specialty Diagnoses / Procedures Referred By Heidi t Referred To Contact Physical Therapy Diagnoses 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 stenosis of cervical region (CMS/[facility]) Status post cervical spinal fusion Mireille Zurita MD [address] [place] [address] Referral ID Status Reason Start Date Expiration Date Visits Requested Visits Authorized [id number] Pending Review Specialty Services Required 06/16/2023 06/15/2024 1 1 [facility] Work Phone: Reason for visit NarrativeReferral update - [facility] Zero[facility] Other Summary Purpose Family History No Family History Records Found Relationship Condition Age at Onset Recorded Date/T roney Not Specified Malignant neoplasm of rectum Unknown father Heart disease Unknown Advance Directives No Advanced Directives Records FoundDocuments on File Type Date Recorded Patient Mold Runner Expl anation Advance Directive(s) 06/23/2006 12:00 AM Documents on File Type Date Recorded Patient Mold Runner Expl anation Advance Directive(s) 06/23/2006 12:00 AM Documents on File Type Date Recorded Patient Mold Runner Expl anation Advance Directive(s) 11/03/2021 10:09 AM Advance Directive(s) 06/23/2006 12:00 AM Documents on File Type Date Recorded Patient Mold Runner Expl anation Advance Directive(s) 11/10/2021 3:28 PM Advance Directive(s) 11/03/2021 10:09 AM Advance Directive(s) 06/23/2006 12:00 AM Advance Directive Response Recorded Date/ Time Advance Directives Yes January 11:06am Advance Directive Response Recorded Date/ Time Advance Directives Yes January 10:06am Documents on File Type Date Recorded Patient Mold Runner Expl anation Advance Directive(s) 11/03/2021 10:09 AM Advance Directive(s) 06/23/2006 Latest Code Status on File Code Status Date Activated Date Inactivated Comments Full Code 03/21/2023 4:19 PM Question Answer Comments Plan of Care: Code Status Discussion Not Compl eted Decision Maker: Provider agus Rationale: Patient condition do es not warrant [...] Discussion Not Compl eted Decision Maker: Ozzy Rationale: Patient condition do es not warrant discussion Reason for Referral Specialty Diagnoses / Procedures Referred By Contac t Referred To Contact CT IMAGING Diagnoses Paraesophageal hernia Procedures CT ABD/PEL W IVCON CT ABD & PEL[place] [address] [place] [address] Ct Imaging Referral ID Status Reason Start Date Expiration Date Visits Requested Visits Authorized [id number] Authorized Auto-Generat ed Referral 10/01/2021 10/31/2022 1 1 Specialty Diagnoses / Procedures Referred By Contac t Referred To Contact XR IMAGING Diagnoses Paraesophageal hernia Procedures XR UPPER GI SINGLE CONTRAST RADIOLOGIC EXAM UPR GI TR[place] [address] [place] [address] Xr Imaging Referral ID Status Reason Start Date Expiration Date Visits Requested Visits Authorized [id number] Pending Review Auto-Generat ed Referral 10/01/2021 10/31/2022 1 1 Specialty Diagnoses / Procedures Referred By Contac t Referred To Contact [facility] Diagnoses Paraesophageal hernia Procedures MANOMETRY ESOPHAGEAL ESOPHAGEAL MOTILITY STUDY W/INTERP&[place] [address] [place] [address] [facility] [address] [place] [address] Referral ID Status Reason Start Date Expiration Date Visits Requested Visits Authorized [id number] Pending Review Auto-Generat ed Referral 10/01/2021 09/28/2022 1 1 Reason *Waiting for appt Evaluate and Treat Back and Leg Pain Diagnosis 1 DDD (degenerative di sc disease), lumbar (M51.36) Referral Organization [facility] urosurgery Referring Provider First Name Keagan Referring Provider Last Name Farrukh Referring Provider Specialty Neurologica l Surgery Referred Organization [facility] Pain Managemen t Bone [place] Referred Provider Ziyad Ngo Referred Address [address] [place],[address] Referred Provider Specialty Pain Medicin e Referral Priority Routine General Notes Liliana Sagastume 022 02:47:54 PM >Received today and sent P2P Specialty Diagnoses / Procedures Referred By Enriquetaac t Referred To Contact Radiology Diagnoses Cervical spondylosis with myelopathy Procedures XR chest 2 views Mireille Zurita MD [address] [place], [place] [phone] Referral ID Status Reason Start Date Expiration Date Visits Requested Visits Authorized [id number] Authorized Perform Procedure 03/10/2023 03/09/2024 1 1 Specialty Diagnoses / Procedures Referred By Contac t Referred To Contact Diagnoses Acute post-operative pain S/P cervical spinal fusion Araseli Faustin, MECHANICAL OXIDIZER-COLLARETTE SEPARATOR [address] [place], [place] [id number] Referral ID Status Reason Start Date Expiration Date Visits Re quested Visits Authorized [id number] Closed 1 1 Specialty Diagnoses / Procedures Referred By Contac t Referred To Contact Diagnoses Cervical spondylosis with myelopathy Procedures ECG 12 Lead Mireille Zurita MD [address] [place] [address] Referral ID Status Reason Start Date Expiration Date V isits Requested Visits Authorized [id number] Pending Review 03/10/2023 03/09/2024 1 1 Specialty Diagnoses / Procedures Referred By Contac t Referred To Contact Radiology Diagnoses 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) Procedures XR cervical spine 2-3 views Mireille Zurita MD [address] [place] [address] Referral ID Status Reason Start Date Expiration Date Visits Requested Visits Authorized [id number] Authorized Perform Procedure 05/10/2023 05/09/2024 1 1 [...] section and content) DATE CREATED AUTHOR 11/02/[address] [facility] DATE CREATED AUTHOR AUTHOR'S ORGANIZ ATION 06/10/2021 [facility] DATE CREATED AUTHOR AUTHOR'S ORGANIZ ATION 11/25/2021 [facility] DATE CREATED AUTHOR AUTHOR'S ORGANIZ ATION 06/02/2022 [facility] DATE CREATED AUTHOR AUTHOR'S ORGANIZ ATION 07/31/2022 [facility] DATE CREATED AUTHOR AUTHOR'S ORGANIZ ATION 01/14/2023 [facility] DATE CREATED AUTHOR AUTHOR'S ORGANIZ ATION 01/22/2023 [facility] DATE CREATED AUTHOR AUTHOR'S ORGANIZ ATION 03/30/2023 [facility] DATE CREATED AUTHOR AUTHOR'S ORGANIZ ATION 05/29/2023 [facility] DATE CREATED AUTHOR AUTHOR'S ORGANIZ ATION 06/14/2023 [facility] DATE CREATED AUTHOR AUTHOR'S ORGANIZ ATION 06/20/2023 [facility] DATE CREATED AUTHOR AUTHOR'S ORGANIZ ATION 08/12/2023 [facility] DATE CREATED AUTHOR AUTHOR'S ORGANIZ ATION 08/23/2023 [facility] EPIC Source Comments (unrecognize d section and content) In the event this informatio n is protected by the Federal Confidentiality of Alcohol and Drug Abuse Patient Records regulations: The Federal rules restrict any use of the information to criminally investigate or prosecute any alcohol or drug abuse patient.[facility] the event this information is protected by the Federal Confidentiality of Alcohol and Drug Abuse Patient Records regulations: The Federal rules restrict any use of the information to criminally investigate or prosecute any alcohol or drug abuse patient.[facility] the event this information is protected by the Federal Confidentiality of Alcohol and Drug Abuse Patient Records regulations: The Federal rules restrict any use of the information to criminally investigate or prosecute any alcohol or drug abuse patient.[facility] the event this information is protected by the Federal Confidentiality of Alcohol and Drug Abuse Patient Records regulations: The Federal rules restrict any use of the information to criminally investigate or prosecute any alcohol or drug abuse patient.[facility] the event this information is protected by the Federal Confidentiality of Alcohol and Drug Abuse Patient Records regulations: The Federal rules restrict any use of the information to criminally investigate or prosecute any alcohol or drug abuse patient.[facility] the event this information is protected by the Federal Confidentiality of Alcohol and Drug Abuse Patient Records regulations: The Federal rules restrict any use of the information to criminally investigate or prosecute any alcohol or drug abuse patient.[facility] the event this information is protected by the Federal Confidentiality of Alcohol and Drug Abuse Patient Records regulations: The Federal rules restrict any use of the information to criminally investigate or prosecute any alcohol or drug abuse patient.[facility] the event this information is protected by the Federal Confidentiality of Alcohol and Drug Abuse Patient Records regulations: The Federal rules restrict any use of the information to criminally investigate or prosecute any alcohol or drug abuse patient.[facility] the event this information is protected by the Federal Confidentiality of Alcohol and Drug Abuse Patient Records regulations: The Federal rules restrict any use of the information to criminally investigate or prosecute any alcohol or drug abuse patient.[facility] the event this information is protected by the Federal Confidentiality of Alcohol and Drug Abuse Patient Records regulations: The Federal rules restrict any use of the information to criminally investigate or prosecute any alcohol or drug abuse patient.[facility] Reason for Visit (unrecogniz ed section and [...] Specialty Diagnoses / Procedures Referred By Heidi t Referred To Contact Radiology Diagnoses Cervical spondylosis with myelopathy Procedures XR chest 2 views Mireille Zurita MD [address] [place] [address] Referral ID Status Reason Start Date Expiration Date Visits Requested Visits Authorized [id number] Authorized Perform Procedure 03/10/2023 03/09/2024 1 1 Specialty Diagnoses / Procedures Referred By Heidi t Referred To Contact Diagnoses Spinal stenosis, cervical region Other spondylosis with myelopathy, cervical region Spinal stenosis, cervical region [M48.02] Other spondylosis with myelopathy, cervical region [M47.12] Procedures [place] ARTHRD ANT INTERDY CERVCL BELW C2 EA ADDL NTRSPC [place] ARTHRD ANT INTERBODY DECOMPRESS CERVICAL BELW C2 [place] ALLOGRAFT FOR SPINE SURGERY ONLY STRUCTURAL [place] ANTERIOR INSTRUMENTATION 4-7 VERTEBRAL SEGMENTS C3-4, C4-5, C5-6, C6-7 ANTERIOR DISC EXCISION/ ALLOGRAFT FUSION & PLATE FIXATION WITH FLAT PLATE CERVICAL X-RAY Mireille Zurita MD [address] [place], [place] [phone] [address] [address] Referral ID Status Reason Start Date Expiration Date Visits Re quested Visits Authorized [id number] 1 1 Specialty Diagnoses / Procedures Referred By Heidi t Referred To Contact Diagnoses Cervical spondylosis with myelopathy Procedures ECG 12 Lead Mireille Zurita MD [address] [place] [address] Referral ID Status Reason Start Date Expiration Date V isits Requested Visits Authorized [id number] Pending Review 03/10/2023 03/09/2024 1 1 Reason Comments Post-op Visit Specialty Diagnoses / Procedures Referred By Heidi t Referred To Contact Radiology Diagnoses 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 stenosis of cervical region ([facility]) Procedures XR cervical spine 2-3 views Mireille Zurita MD [address] [place] [address] Referral ID Status Reason Start Date Expiration Date Visits Requested Visits Authorized [id number] Authorized Perform Procedure 05/10/2023 05/09/2024 1 1 Reason Comments Post-op Spine Surgery Intermittent neck stiffness and headaches. Care Teams (unrecognized sec tion and content) Machine Maintenance Repairer Relationship Specialty Start Date End Date Monika Guerrero [address] [facility] [place] [address] PCP - General 08/13/04 Machine Maintenance Repairer Relationship Specialty Start Date End Date Monika Guerrero [address] [facility] [place] [address] PCP - General 08/13/04 Machine Maintenance Repairer Relationship Specialty Start Date End Date Monika Guerrero [address] [facility] [place] [address] PCP - General 08/13/04 Machine Maintenance Repairer Relationship Specialty Start Date End Date Imer Purcell MD [address] [place] [address] PCP - General Family Practice 11/03/21 Machine Maintenance Repairer Relationship Specialty Start Date End Date Imer Purcell MD [address] [place] [phone] PCP - General Family Practice 11/03/21 Machine Maintenance Repairer Relationship Specialty Start Date End Date Imer Purcell MD [address] [place] [phone] PCP - General Family Practice 11/03/21 Machine Maintenance Repairer Relationship Specialty Start Date End Date Imer Purcell MD [address] [place] [phone] PCP - General Family Practice 11/03/21 Machine Maintenance Repairer Relationship Specialty Start Date End Date Imer Purcell MD [address] [place] [phone] PCP - General Family Practice 11/03/21 Team Status: Inactive Member Role Status Dates Imer Purcell MD Primary Care Provider, Attending Pr phillip Active Team Status: Active Member Role Status Dates Imer Purcell MD Primary Care Provider Active Team Status: Inactive Member Role Status Dates Imer Purcell MD Primary Care Provider Active Adan Lisa Attending Provider Active Team Status: Inactive Member Role Status Dates Imer Purcell MD Primary Care Provider Active Jorge Ramirez MD Attending Provider Active Machine Maintenance Repairer Relationship Specialty Start Date End Date Imer Purcell MD [address] [place] [address] PCP - General Family Medicine 11/03/21 Team Status: Inactive Member Role Status Dates Imer Purcell MD Primary Care Provider Active Freda Pop NP-C Attending Provider Active Team Status: Inactive Member Role Status Dates Imer Purcell MD Primary Care Provider Active Marika Friedman PA-C Attending Provider Active Machine Maintenance Repairer Relationship Specialty Start Date End Date Imer Purcell MD [address] [place] [address] PCP - General 12/07/22 Machine Maintenance Repairer Relationship Specialty Start Date End Date Imer Purcell MD [address] [place] [address] PCP - General 12/07/22 Machine Maintenance Repairer Relationship Specialty Start Date End Date Imer Purcell MD [address] [place] [address] PCP - General 12/07/22 Machine Maintenance Repairer Relationship Specialty Start Date End Date Imer Purcell MD [address] [place] [address] PCP - General 12/07/22 Machine Maintenance Repairer Relationship Specialty Start Date End Date Imer Purcell MD [address] [place] [address] PCP - General 12/07/22 Machine Maintenance Repairer Relationship Specialty Start Date End Date Imer Purcell MD [address] [facility] [place] [id number] PCP - General 12/07/22 Goals (unrecognized section [...] Luzma Adhikari, MINDY)0739 (Given - Provider: Beth Bronson RN)1630 (Due) amLODIPine (Norvasc) tablet 10 mg 10 [...] Minutes, Every 8 hours, First dose on 11/13/23 at 0700, Preprocedure, Administer within 60 minutes [...] Medication not available)203 (Given - Provider: Luzma Adhikari, MINDY) 0920 (Given - Provider: Beth Bronson RN)2100 [...] RN) 0617 (See Alternative - Provider: Luzma Adhikari RN) potassium chloride CR (Klor-Con) ER tablet [...] 1717 (New Bag - Provider: Samina Chavira, MINDY) 0929 (Rate/Dose Verify - Provider: Beth Bronson RN)1900 (Stopped - Provider: Luzma Adhikari RN) [...] Galvan RN) 1119 (Given - Provider: Beth Bronson, MINDY)2038 (Given - Provider: Luzma Adhikari, MINDY) oxygen [...] BE BASED ON THE PRIMARY CLINICAL RECORDS. [employer] provides no warranty or guarantee of the accuracy or completeness of information in this document.
[2023-09-08 06:28] VITALS: PULSE 68; TEMP 36.4; O2SAT 95
[2023-09-08] MEDS: DIAZEPAM 5 MG TABLET PO (06:30)
[2023-09-08] MEDS: TROPICAMIDE 1% OP SOL 300 DROP/15 ML BOTTLE OP ×3 (06:33→07:03)
[2023-09-08] MEDS: BESIFLOXACIN HCL 100 DROP DROPS.SUSP OP ×4 (06:33→07:14)
[2023-09-08] MEDS: PHENYLEPHRINE HCL 2.5% OP SOL 40 DROP/2 ML BOTTLE OP ×4 (06:34→07:15)
[2023-09-08] MEDS: PROPARACAINE HCL 0.5% 300 DROP/15 ML BOTTLE OP (07:25)
[2023-09-08 07:37] VITALS: BP 131/65; PULSE 64; O2SAT 96
[2023-09-08] MEDS: HYALURONATE SODIUM 16 MG/ML SYRINGE OP (07:41)
[2023-09-08] MEDS: LIDOCAINE 2% JELLY 10 ML TOPICAL (07:41)
[2023-09-08] MEDS: APRACLONIDINE HCL 0.5% SOL 100 DROP/5 ML BOTTLE OP (07:41)
[2023-09-08] MEDS: LIDOCAINE HCL 1% PF 20 MG/2 ML VIAL INJ (07:41)
[2023-09-08] MEDS: BETADINE POVIDONE-IODINE 5% OP SOL 30 ML BOTTLE OP (07:42)
[2023-09-08] MEDS: TETRACAINE HCL 0.5% OP SOL 80 DROP/4 ML BOTTLE OP (07:42)
[2023-09-08] MEDS: PHENYLEPHRINE/KETOROLAC 1-0.3% ML VIAL 4 ML IRR (07:42)
[2023-09-08] MEDS: PREDNISOLONE ACETATE OP 1% SUSP 100 DROPS/5 ML 1 DROP OP (07:42)
[2023-09-08] MEDS: CEFUROXIME SODIUM 750 MG, 0.9 % SODIUM CHLORIDE 16.3 ML OP (07:43)
[2023-09-08 07:44] VITALS: BP 131/66; PULSE 65; O2SAT 96
== END 2023-09-08 08:08 | disposition home or self-care (01) ==
LOC: SURGOUT 06:15
PROVIDERS: PCP Family Medicine; Visit Provider Ophthalmology
PROC: (CPT 66984; principal; 2023-09-08 07:30)
DX: H25.12 Age-related nuclear cataract, left eye (principal)
CPT/HCPCS: 66984; V2630

== ENCOUNTER 2023-11-22 09:21 | Outpatient (OUT) | payer MEDICARE, SELFPAY ==
[2023-11-22 09:55] LABS: Basophils Absolute Auto 0.1 10^3/uL (0.0-0.1); Basophils Percent Auto 1.5 % (0.2-2.0); Eosinophils Absolute Auto 0.3 10^3/uL (0.0-0.7); Eosinophils Percent Auto 4.3 % (0.9-7.0); Hemoglobin 12.4 g/dL (12.0-16.0); Immature Granulocytes Abs Auto 0.02 10^3/uL (0.00-0.03); Immature Granulocytes Pct Auto 0.3 % (0.0-0.5); Lymphocytes Absolute Auto 1.2 10^3/uL (1.2-3.8); Lymphocytes Percent Auto 18.5 % (20.5-60.0); Mean Corpuscular HGB Conc 32.6 g/dL (29.9-35.2); Mean Corpuscular Hemoglobin 30.5 pg (26.7-34.0); Mean Corpuscular Volume 93.4 fL (81.0-99.0); Mean Platelet Volume 9.3 fL (9.5-13.5); Monocytes Absolute Auto 0.6 10^3/uL (0.3-0.8); Neutrophils Absolute Auto 4.4 10^3/uL (1.4-6.5); Neutrophils Percent Auto 66.4 % (43.0-75.0); Platelet Count 332 10^3/uL (150-450); Red Blood Count 4.07 10^6/uL (4.20-5.40); Red Cell Distribution Width 12.9 % (11.0-15.0); White Blood Count 6.7 10^3/uL (4.0-11.0)
[2023-11-22 10:30] LABS: Estimated Average Glucose 108 mg/dL; Glycohemoglobin A1C 5.4 % (4.5-6.2)
[2023-11-22 11:00] LABS: Alanine Aminotransferase 22 U/L (14-59); Albumin Globulin Ratio 1.1; Albumin Level 3.6 g/dL (3.4-5.0); Alkaline Phosphatase 86 U/L (46-116); Anion Gap 12.9; Aspartate Amino Transferase 15 U/L (15-37); Bilirubin Total 0.7 mg/dL (0.2-1.0); Calcium 9.2 mg/dL (8.5-10.1); Carbon Dioxide 29.1 mmol/L (21.0-32.0); Chloride 102 mmol/L (98-107); Estimated GFR (African America >60 (>=60); Estimated GFR (Non-African Ame 59 (>=60); Globulin 3.4 g/dL; Glucose 103 mg/dL (74-106); Sodium 140 mmol/L (136-145); Thyroid Stimulating Hormone 0.845 uIU/mL (0.358-3.740)
[2023-11-22 11:39] LABS: Free T4 1.15 ng/dL (0.76-1.46)
== END 2023-11-22 09:22 | disposition home or self-care (01) ==
LOC: LAB 09:23
PROVIDERS: PCP Family Medicine; Visit Provider Family Medicine
DX: R06.00 Dyspnea, unspecified (principal); I12.9 Hypertensive chronic kidney disease with stage 1 through stage 4 chronic kidney disease, or unspecified chronic kidney disease; D50.9 Iron deficiency anemia, unspecified; K21.9 Gastro-esophageal reflux disease without esophagitis; E03.9 Hypothyroidism, unspecified; R73.09 Other abnormal glucose; R53.83 Other fatigue
CPT/HCPCS: 36415; 80053; 83036; 83880; 84439; 84443; 85025

== ENCOUNTER 2024-02-09 14:54 | Outpatient (RCR) | payer MEDICARE, SELFPAY | END 2024-03-08 16:56 | disposition home or self-care (01) | LOC: PT 14:54 | PROVIDERS: PCP Family Medicine; Visit Provider Family Medicine | DX: M54.50 Low back pain, unspecified (principal) | CPT/HCPCS: 97012; 97110; 97112; 97162 ==

== ENCOUNTER 2024-05-06 11:01 | Emergency (ER) | payer MEDICARE, SELFPAY ==
[2024-05-06 11:09] VITALS: BP 121/56; PULSE 69; TEMP 36.6; O2SAT 96; BMI 32.6
--- OUTSIDE RECORDS SUMMARY | 2024-05-06 11:09 | XMS_ITS | CCD ---
Author Organization [facility] Care Team Providers Care Individual Pension Consultant Name Role Phone PHYSICIAN, DEFAULT Unavailable Unavailable PHYSICIAN, DEFAULT Unavailable Unavailable CATY YODER A Unavailable Unavailable CATY YODER Unavailable Unavailable SAMUEL SANCHEZ Unavailable Unavailable IMER PURCELL Unavailable Unavailable Monika Guerrero Primary Care Provider Darlene Barbosaul Unavailable Jorge Ramirez Unavailable Imer Purcell MD Primary Care Provider [phone] Keagan Chadwick Unavailable MD Imer Purcell Primary Care Provider [phone] MD Imer Purcell Attending Provider [phone] Ziyad Ngo Unavailable MD Iemr Purcell Primary Care Provider [phone] MD Imer Purcell Attending Provider Adan Gonzalez Attending Provider [phone] MD Jorge Ramirez Attending Provider Imer Purcell MD Primary Care Provider MONIKA GUERRERO Primary Care Unavaila ble MENDEZ, TOMS Referring Unavailable MONIKA GUERRERO Primary Care Unavaila ble MENDEZ, TOMS Referring Unavailable MONIKA GUERRERO Primary Care Unavaila ble MENDEZ, TOMS Attending Unavailable MENDEZ, TOMS Referring Unavailable FREDA POP Attending Unavailable ANDREA, TOMS Referring Unavailable IMER PURCELL Primary Care [...] [phone] ARI Pop Attending Provider MD Imer Purcell [...] GINO Attending Unavailable PACO, GINO Admitting Unavailable BINH ., DR WILLAMS Consulting Unavailable HOY ., [...] Unavailable HOY ., DR WILLAMS Admitting Unavailable Imer Purcell M Unavailable Unavailable Unavailable Imer Purcell MD Primary Care Provider MIREILLE ZURITA Attending Unavailable Adan Gonzalez Referring Unavailable Dr. Imer Purclel Primary Care Unavail able Dr. Imer Purcell Primary Care Unavail able MIREILLE ZURITA Referring Unavailable MIREILLE ZURITA Attending Unavailable CECELIA HARKINS Attending Unavailable LONA PANDA Referring Unavailable Imer Purcell MD Primary Care Provider [phone] MD Imer Purcell Primary Care Provider [phone] MD Imer Purcell Attending Provider MD Gino Barbosa Attending Provider IMER PURCELL Primary Care Unavailable MIREILLE ZURITA Admitting Unavailable MIREILLE ZURITA Attending Unavailable IMER PURCELL Primary Care Unavailable COLLIN SAGASTUME Consulting Unavailable ROBERT MACK Consulting Unavailable MIREILLE ZURITA Referring Unavailable IMER PUCRELL Primary Care Unavailable MIREILLE ZURITA Referring Unavailable IMER PURCELL Primary Care Unavailable Monika Guerrero Primary Care Provider Imer Purcell MD Primary Care Provider [phone] Imer Purcell MD Unavailable MD Jorge Ramirez Attending Provider MD Imer Purcell Primary Care Provider [phone] MD Imer Purcell Attending Provider [phone] Hoy, Imer M Primary Care Unavailable Hoy, Imer M Admitting Unavailable Hoy, Imer M Attending Unavailable Hoy, Imer M Primary Care Unavailable Hoy, Imer M Admitting Unavailable Hoy, Imer M Attending Unavailable Hoy, Imer M Primary Care Unavailable PacoGino Attending Unavailable Paco, Gino Admitting Unavailable Hoy, Imer M Primary Care Unavailable Jorge Ramirez Attending Unavailable Jorge Ramirez Admitting Unavailable MIREILLE ZURITA Referring Unavailable HOY, IMER DON Primary Care Unavailable YUDITHMIREILLE S Referring Unavailable HOY, IMER DON Primary Care Unavailable ARASELI FAUSTIN Referring Unavailable HOY, IMER DON Primary Care Unavailable YUDITH, MIREILLE S Referring Unavailable HOY, IMER DON Primary Care Unavailable ARASELI FAUSTIN Attending Unavailable HOY, IMER DON Primary Care Unavailable MIREILLE ZURITA S Attending Unavailable HOY, IMER DON Primary Care Unavailable MIREILLE ZURITA S Attending Unavailable HOY, IMER DON Primary Care Unavailable MIREILLE ZURITA Attending Unavailable HOY, IMER DON Primary Care Unavailable MIREILLE ZURITA Attending Unavailable HOY, IMER DON Primary Care Unavailable CECELIA HARKINS Attending Unavailable LONA PANDA Referring Unavailable JR. MEENA, RUSH Gilman Attending Unavaila octavio KNAPP JR., RUSH Gilman Referring Unavaila ESTELLE Cole Attending Unavailable HEATHER BANG Attending Unavailable JR. MEENA, RUSH Gilman Referring Unavaila HEATHER Maya Attending Unavailable Allergies Allergy Classification Reported Allergen(s) Allergy Type Date of Onset Reaction(s) Facility (2 sources) No Known Allergies; Translations: [No Known Allergies] Propensity to adverse reactions (disorder) 7 [facility] Repository (1 source) No Known Medication Allergies; Translations: [No Known Medication Allergies] Propensity to adverse reactions (disorder) [facility] Repository (9 sources) Other Propensity to adverse reactions 4 Other [facility] Medications Current Medications Medication Drug Class(es) Dates [...] oral, Every 8 hours, First dose on 03/21/23 at 1630, Phase II/On Unit If ordered PRN for pain, nurse is permitted to administer this medication for higher pain scores based on patient preference? Yes amLODIPine 10 mg oral tablet (20 sources) Dihydropyridine Calcium Channel Sonia Start: 08-05-2021 End: 07-19-2023 amLODIPine (Norvasc) 10 MG tablet 03/22/2023 Active amLODIPine Besyl ate 5 MG Oral Tablet Quantity: 0 Refills: 0 Ordered: 07-Dec-2022 DO Active Comment on above: Take 10 mg by mouth once daily. aspirin 81 mg chewable tablet (20 sources) Platelet Aggregation Inhibitor, Nonsteroidal Anti-inflammatory Drug Start: 08-05-2021 aspirin 81 mg chewable tablet Aspirin (Aspirin Child) 81 mg Tablet,Chewable Active 81 MG PO Daily August 05, 2021 12:00am 08/05/2021 Active Start: 08-05-2021 End: 07-19-2023 take 1 tablet by mouth once daily Aspirin (Aspirin Child) 81 mg Tablet,Chewable Discontinued 81 MG PO Daily August 05, 2021 12:00am July 19, 2023 10:49am Start: 08-29-2006 take 1 tablet by meghana [...] d aily. atorvastatin 20 mg oral tablet (20 sources) HMG-CoA Reductase Inhibitor Start: 02-10-2023 atorvastatin (Lipitor) 20 MG tablet 04/18/2023 Active take 1 tablet by meghana th every twenty-four hours Atorvastatin Calcium 20 MG 1 tablet Oral ly Once a day Active azelastine hydrochloride 0.137 mg/actuat metered dose nasal spray (2 sources) Histamine-1 Receptor Antagonist Start: 04-04-2024 End: 04-04-2025 take 2 spray(s) nasal route in the morning azelastine (Astelin) 0.1 % nasal spray Indications: Allergic rhinitis due to dust Administer 2 sprays into each nostril in the morning and 2 sprays before bedtime. Use in each nostril as directed. 90 mL 3 04/04/2024 04/04/2025 Active calcium chloride 0.0014 meq/ml / potassium chloride 0.004 meq/ml / sodium chloride 0.103 meq/ml / sodium lactate 0.028 meq/ml injectable solution (3 sources) Start: 03-21-2023 take 100 mL intravenously every hour 100 mL/hr, intravenous, Continuous, Starting on 03/21/23 at 1630, Phase II/On Unit Convert IV to saline lock when taking oral fluids. Start: 03-21-2023 End: 03-21-2023 lactated Ringer's infusion cholecalciferol 0.05 mg oral capsule (20 sources) Vitamin D Start: 01-24-2024 take 50 ug by mouth once daily Cholecalciferol (Vitamin D3) Active 50 MCG PO Daily January 24, 2024 12:00am Start: 08-05-2021 End: 07-19-2023 take 1 capsule by mouth once daily Cholecalciferol (Vitamin D3) (Vitamin D3) 25 mcg (1,000 unit) Capsule Discontinued 25 MCG PO Daily August 05, 2021 12:00am July 19, 2023 10:49am take 1 capsule by mo uth once daily cholecalciferol (Vitamin D-3) 25 MCG (1000 UT) capsule Take 1,000 Units by mouth Daily Active Cholecalciferol, Vitamin D3, (VITAMIN D) 25 mcg (1,000 unit) cap Take 1,000 Units by mouth once daily. Active Vitamin D3 25 MC G (1000 UT) Oral Tablet Quantity: 0 Refills: 0 Ordered: 07-Dec-2022 DO Active Comment on above: Take 1,000 Units by mouth once daily. CoQ10 200 MG (3 sources) CoQ10 200 MG as directed Orally ONCE A DAY Active cyclobenzaprine hydrochloride 10 mg oral tablet (12 sources) Muscle Relaxant Start: 07-01-19 End: 10-19-19 take 1 tablet by mouth every eight hours for muscle spasms cyclobenzaprine (Flexeril) 10 mg tablet Indications: S/P cervical spinal fusion Take 1 tablet (10 mg) by mouth every 8 hours if needed for muscle spasms. 30 tablet 07/01/2023 10/19/2023 Discontinued (Med List Cleanup) Start: 03-21-2023 End: 02-13-2024 take 1 tablet by mouth three times daily as needed for muscle spasms cyclobenzaprine (Flexeril) 10 MG tablet Take 10 mg by mouth 3 (three) times a day as needed for muscle spasms 03/23/2023 02/13/2024 Discontinued (Therapy completed) 1 ml denosumab 60 mg/ml prefilled syringe (20 sources) RANK Ligand Inhibitor Start: 08-05-2021 denosumab (Prolia) 60 mg/mL syringe EVERY 6 MONTHS 08/05/2021 Active 24 hr desvenlafaxine 50 mg extended release oral tablet (9 sources) Serotonin and Norepinephrine Reuptake Inhibitor End: 05-27-2022 take 1 tablet by mouth once daily, then take 1 tablet by mouth every twenty-four hours desvenlafaxine ER (KHEDEZLA) 50 mg 24 hr tablet Take 50 mg by mouth once daily. 0 05/27/2022 Discontinued (Discontinued by another Health Care Provider) Comment on above: Take 50 mg by mouth once daily. dexlansoprazole 30 mg delayed release oral capsule (3 sources) Proton Pump Inhibitor Start: 08-25-2021 take 1 capsule by mouth every twelve hours Dexlansoprazole 30 MG 1 capsule Orally bid for 30 day(s) Aug, Active docusate sodium 100 mg oral capsule (3 sources) Start: 03-23-2023 take 1 capsule by mouth twice daily [...] stools donepezil hydrochloride 5 mg oral tablet (20 sources) Start: 12-20-2022 End: 02-13-2024 take 1 tablet by mouth once daily donepezil (Aricept) 5 mg tablet Take 1 tablet (5 mg) by mouth once daily. 12/20/2022 Active ferrous sulfate 325 mg oral tablet (20 sources) Start: 07-19-2023 take 325 mg by mouth once daily Ferrous Sulfate Active 325 MG PO Daily July 19, 2023 12:00am Start: 03-22-2023 65 mg of iron, oral, Daily with breakfast, First dose on Tue03/22/23 at 0800, Phase II/On Unit Start: 04-08-2022 End: 07-19-2023 take 1 tablet by mouth twice daily Ferrous Sulfate (Iron (Ferrous Sulfate)) 325 mg (65 mg iron) Tablet Discontinued 325 MG PO Twice daily April 08, 2022 1:00am July 19, 2023 10:47am Start: 08-05-2021 End: 04-08-2022 take 1 tablet by mouth once daily Ferrous Sulfate (Iron) 325 mg (65 mg iron) Tablet Discontinued 325 MG PO Daily August 05, 2021 12:00am April 08, 2022 9:42am Comment on above: Take 325 mg by mouth daily with breakfast. gabapentin 300 mg oral capsule (20 sources) Anti-epileptic Agent Start: 08-05-2021 End: 02-13-2024 take 300 mg by mouth once daily Gabapentin Active 300 MG PO Daily August 05, 2021 12:00am Gabapentin 300 M G TABS Quantity: 0 Refills: 0 Ordered: 07-Dec-2022 DO Active Comment on above: Take 300 mg by mouth as needed. hydroCHLOROthiazide 25 mg oral tablet (20 sources) Thiazide Diuretic Start: 7 hydroCHLOROthiazide (HYDRODiuril) 25 MG tablet 11/19/2022 Active take 1 tablet by mouth once aminata y hydroCHLOROthiazide 25 1 tablet Orally daily Active Comment on above: Take one(1) tablet d aily. Iron (6 sources) iron 18 mg table t Take by mouth once every 24 hours. Active iron 18 mg table t Take by mouth once every 24 hours. 0 Active take 1 tablet by mouth once aminata y Iron 325 (65 Fe) MG 1 tablet Orally Once a day Active ketorolac tromethamine 5 mg/ml ophthalmic solution (5 sources) Nonsteroidal Anti-inflammatory Drug, Cyclooxygenase Inhibitor Start: 05-24-2023 ketorolac (Acular) 0.5 % ophthalmic solution PLACE 1 DROP INTO AFFECTED EYE(S) ONCE IN THE MORNING AND ONCE BEFORE BEDTIME 05/24/2023 Active labetalol hydrochloride 200 mg oral tablet (20 sources) beta-Adrenergic Sonia Start: 03-21-2023 take 1 tablet by mouth twice daily labetalol (Normodyne) 100 mg tablet Indications: Essential hypertension Take 1 tablet (100 mg) by mouth 2 times a day. 03/23/2023 Active Start: 08-05-2021 End: 06-16-2023 take 1 tablet by mouth in the morning labetalol (Normodyne) 200 MG tablet Take 1 tablet by mouth in the morning and 1 tablet before bedtime. 04/25/2023 Active take 1 tablet by [facility] once daily labetalol (TRANDATE) 200 mg tablet Take 200 mg by mouth once daily. Active Comment on above: Take 200 mg by mouth once daily. lansoprazole 30 mg delayed release oral capsule (20 sources) Proton Pump Inhibitor Start: End: take 30 mg by mouth once daily Lansoprazole Active 30 MG PO Daily July 19, 2023 12:00am Start: 12-03-2021 End: 12-03-2021 take 1 capsule by mouth once daily lansoprazole (PREVACID) 30 mg capsule Indications: Paraesophageal hernia Take 1 capsule by mouth once daily. 90 capsule 2 12/03/2021 Active Start: 08-06-2021 End: 07-19-2023 take 30 mg by mouth twice daily Lansoprazole Discontinued 30 MG PO Twice daily 140 70 August 06, 2021 12:00am July 19, 2023 10:47am Comment on above: Take 30 mg by mouth once daily. Take 1 capsule by [facility] once daily. Liver Support - (14 sources) Liver Support - as directed Sublingual ONCE A DAY Active losartan potassium 50 mg oral tablet (20 sources) Angiotensin 2 Receptor Sonia Start: 08-05-2021 losartan (Cozaar) 50 MG tablet 05/03/2023 Active Comment on above: Take 50 mg by [...] 12 breaths/minute. ofloxacin 3 mg/ml ophthalmic solution (5 sources) Quinolone Antimicrobial Start: 05-24-2023 ofloxacin (Ocuflox) 0.3 % ophthalmic solution PLEASE SEE ATTACHED FOR DETAILED DIRECTIONS 05/24/2023 Active Ondansetron (1 source) Serotonin-3 Receptor [...] release oral tablet (20 sources) Start: 2 take 10 mEq by mouth once daily Potassium Chloride Active 10 MEQ PO Daily August 05, 2021 12:00am Comment on above: Take 10 mEq by mouth once daily. sucralfate 1000 mg oral tablet (13 sources) Aluminum Complex Start: 2 take 1 tablet by mouth every twelve hours Sucralfate 1 GM 1 tablet on an empty stomach Orally Twice a day for 90 day(s) Jan, Active Start: 08-27-2021 take 1 tablet by meghana every twelve hours Sucralfate 1 GM 1 tablet on an empty stomach Orally Twice a day for 30 day(s) Aug, Active take 1 tablet by meghana th twice daily sucralfate (CARAFATE) 1 gram tablet Take 1 g by mouth twice daily. 0 Active Comment on above: Take 1 g by mouth tw ice daily. venlafaxine 75 mg oral tablet (20 sources) Serotonin and Norepinephrine Reuptake Inhibitor Start: 4 take 75 mg by mouth twice daily Venlafaxine Active 75 MG PO Twice daily July 19, 2023 10:47am Start: 03-21-2023 take 75 mg by mouth three times daily at mealtime 75 mg, oral, 3 times daily with meals, First dose on Tue03/21/23 at 1700, Phase II/On Unit Start: 08-05-2021 End: 07-19-2023 take 75 mg by mouth once daily Venlafaxine Discontinue d 75 MG PO Daily August 05, 2021 12:00am July 19, 2023 10:51am take 1 capsule by nc ut once daily venlafaxine XR (Effexor XR) 75 MG 24 hr capsule Take 75 mg by mouth Daily Do not crush or chew. Active Vitamin D 25 MCG (1000 UT) [...] on above: Take one(1) tablet d aily. colesevelam hydrochloride 625 mg oral tablet (20 sources) Bile Acid Sequestrant Start: 08-05-2021 End: 07-19-2023 take 1875 mg by mouth twice daily Colesevelam Discontinued 1875 MG PO Twice daily August 05, 2021 12:00am July 19, 2023 10:49am take 3 tablets by mo [facility] once daily at bedtime colesevelam (WELCHOL) 625 mg tablet Take 1,875 mg by mouth daily at bedtime. Active Colesevelam HCl - 625 MG Oral Tablet Quantity: 0 Refills: 0 Ordered: 07-Dec-2022 DO Active Comment on above: Take 1,875 mg by meghana daily at bedtime. CoQ-10 CAPS (2 sources) CoQ-10 CAPS Damion tity: 0 Refills: 0 Ordered: 07-Dec-2022 DO Active 0.5 ml HYDROmorphone hydrochloride 1 mg/ml prefilled syringe (1 source) Opioid Agonist Start: 03-21-20 End: 03-21-20 HYDROmorphone (Dilaudid) injection 0.5 mg ibuprofen 800 mg oral tablet (6 sources) Nonsteroidal Anti-inflammatory Drug End: 12-04-19 ibuprofen (MOTRIN) 800 mg tablet Take 800 mg by mouth. 0 12/03/2021 Discontinued (Course of therapy completed) Comment on above: Take 800 mg by mouth . iv contrast (will be provided with radiology test) (8 sources) Start: 10-02-19 iv contrast (will be provided with radiology [...] in the CT contrast administration guidelines link. metoprolol tartrate 25 mg oral tablet (3 sources) beta-Adrenergic Sonia Start: 06-28-19 07 METOPROLOL 25 MG TAB Take one(1) tablet two(2) times daily. 0 0 06/28/2006 Active Comment on above: Take one(1) tablet t wo(2) times daily. omeprazole 40 mg delayed release oral capsule (19 sources) Proton Pump Inhibitor Start: 08-06-19 End: 08-07-19 take 40 mg by mouth twice daily [...] at bedtime. 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-02-19 Resolved : 12-01-19 Chronic Cataract (13 sources) Bilateral age-related nuclear cataracts; Translations: [Age-related nuclear cataract, bilateral] Onset: 05-24-19 24 05-24-2023 Chronic Chronic kidney disease (20 sources) Chronic kidney disease, stage 3 (moderate); Translations: [Chronic kidney disease stage 3] Onset: 01-13-20 17 11-03-2021 Chronic Coagulation and hemorrhagic disorders (3 sources) Blood coagulation disorder; Translations: [Coagulation defect, unspecified] Onset: 03-21-2003-21-2023 Chronic Deficiency and other anemia (14 sources) Anemia of renal disease; Translations: [Anemia in chronic kidney disease] Chronic Deficiency and other anemia (4 sources) Anemia in chronic kidney disease; Translations: [ANEMIA IN CHRONIC KIDNEY DISEASE] Onset: 06-02-19 Resolved : 12-01-19 Chronic Deficiency and other anemia (7 sources) Iron deficiency anemia; Translations: [Iron deficiency anemia, unspecified] Episodic Deficiency and other anemia (10 sources) Anemia, unspecified; Translations: [Anemia, unspecified] Onset: 01-28-20 Episodic Deficiency and other anemia (6 sources) Anemia; Translations: [Anemia, unspecified] 07-19-2023 Episodic Disorders of lipid metabolism (20 sources) Hyperlipidemia, unspecified; Translations: [Hyperlipidemia] Onset: 01-13-20 Chronic Esophageal disorders (13 sources) Gastroesophageal reflux disease; Translations: [Gastro-esophageal reflux disease without esophagitis] Chronic Essential hypertension (20 sources) Hypertensive disorder; Translations: [Essential (primary) hypertension] Onset: 11-04-19 22 11-03-2021 Chronic Fluid and electrolyte disorders (20 sources) Hypo-osmolality and hyponatremia; Translations: [Hypokalemia] Onset: 06-02-19 Resolved : 12-01-19 Episodic Genitourinary symptoms and ill-defined conditions (8 sources) Urinary incontinence; Translations: [Unspecified urinary incontinence] Chronic Hypertension with complications and secondary hypertension (20 sources) Hypertensive chronic kidney disease with stage 1 through stage 4 chronic kidney disease, or unspecified chronic kidney disease; Translations: [Hypertensive renal disease] Onset: 01-13-20 Resolved : 12-01-19 Chronic Nervous system congenital anomalies (20 sources) Congenital hydrocephalus; Translations: [Congenital hydrocephalus, unspecified] Onset: 02-09-20 05 02-08-2005 Chronic Nutritional deficiencies (20 sources) Vitamin D deficiency; Translations: [Vitamin D deficiency, unspecified] Onset: 06-02-19 Resolved : 12-01-19 Chronic Nutritional deficiencies (1 source) Iron deficiency Episodic Osteoarthritis (16 sources) Unilateral primary osteoarthritis, right knee; Translations: [Osteoarthritis of right knee joint] Onset: 06-24-19 Chronic Osteoporosis (20 sources) Osteoporosis; Translations: [Age-related osteoporosis without current pathological fracture] Onset: 06-02-19 Resolved : 12-01-19 Chronic Other acquired deformities (14 sources) Kyphoscoliosis deformity of spine; Translations: [Scoliosis, unspecified] Chronic Other acquired deformities (1 source) Scoliosis, unspecified; Translations: [SCOLIOSIS UNSPECIFIED] Onset: 01-26-20 Chronic Other aftercare (2 sources) Other half-way (current) drug therapy; Translations: [Long-term (current) use of other medications] Onset: 05-07-20 Episodic Other connective tissue disease (10 sources) History of cervical spine fusion; Translations: [Arthrodesis status] Onset: 06-16-19 24 03-23-2023 Episodic Other gastrointestinal disorders (1 source) Drug-induced constipation; Translations: [Drug induced constipation] 03-23-2023 Episodic Other gastrointestinal disorders (3 sources) Full incontinence of feces; Translations: [Full incontinence of feces] Onset: 03-08-20 Episodic Other gastrointestinal disorders (1 source) Complete fecal incontinence; Translations: [Full incontinence of feces] 03-21-2024 Episodic Other hereditary and degenerative nervous system conditions (4 sources) 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; Translations: [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)] Onset: 03-12-20 Chronic Other nervous system disorders (20 sources) Communicating hydrocephalus; 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] Onset: 05-17-19 06 05-17-2005 Chronic Other nervous system disorders (14 sources) Chronic pain; Translations: [Other chronic pain] Chronic Other nervous system disorders (14 sources) Obstructive hydrocephalus; Translations: [Hydrocephalus, unspecified] Chronic Other nervous system disorders (2 sources) Hydrocephalus, unspecified Chronic Other nervous system disorders (1 source) Communicating hydrocephalus; 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)] Onset: 05-17-19 Chronic Other nervous system disorders (4 sources) Ventriculoperitoneal shunt in situ; Translations: [Presence of cerebrospinal fluid drainage device] 03-08-2024 Chronic Other nervous system disorders (3 sources) Presence of cerebrospinal fluid drainage device; Translations: [Presence of cerebrospinal fluid drainage device] Chronic Other nervous system disorders (15 sources) Normal pressure hydrocephalus; Translations: [Idiopathic normal pressure hydrocephalus (INPH)] Onset: 03-12-2003-12-2023 Chronic Other nervous system disorders (2 sources) (Idiopathic) normal pressure hydrocephalus; Translations: [(Idiopathic) normal pressure hydrocephalus (Multi)] Onset: 03-12-20 Chronic Other nervous system disorders (4 sources) Other symptoms and signs involving cognitive functions and awareness; Translations: [OTH SX SIGNS COG FUNC AND AWARENESS] Onset: 07-22-19 Episodic Other nervous system disorders (1 source) Acute postoperative pain; Translations: [Other acute postprocedural pain] 03-23-2023 Episodic Other non-traumatic joint disorders (2 sources) Pain in right knee; Translations: [Pain in joint, lower leg] 02-13-2024 Episodic Other nutritional; endocrine; and metabolic disorders (14 sources) Obese class I; Translations: [Body mass index (BMI) 31.0-31.9, adult] Chronic Other nutritional; endocrine; and metabolic disorders (14 sources) Body mass index 30+ - obesity; Translations: [Body mass index (BMI) 30.0-30.9, adult] Chronic Other nutritional; endocrine; and metabolic disorders (14 sources) Obesity; Translations: [Obesity, unspecified] Chronic Other upper respiratory disease (2 sources) Allergic rhinitis; Translations: [Other allergic rhinitis] 04-04-2024 Chronic Pulmonary heart disease (1 source) Pulmonary hypertension, unspecified; Translations: [PULMONARY HYPERTENSION UNSPECIFIED] Onset: 01-28-20 Chronic Residual codes; unclassified (20 sources) Obstructive sleep apnea syndrome; Translations: [Obstructive sleep apnea (adult) (pediatric)] Onset: 03-12-2011-03-2021 Chronic Residual codes; unclassified (1 source) Sleep apnea, unspecified; Translations: [SLEEP APNEA UNSPECIFIED] Onset: 01-28-20 Chronic Residual codes; unclassified (10 sources) Transfusion of blood product refused for christian reason; Translations: [Procedure and treatment not carried [...] APNEA (ADULT) (PEDIATRIC)] Onset: 01-13-20 Chronic Unclassified (2 sources) Unknown / UNK(Unknown) Onset: 01-13-20 Unclassified (3 sources) CONTACT W/AND (SUSP) EXPOS COVID-19; Translations: [CONTACT W/AND (SUSP) EXPOS COVID-19] Onset: 08-01-19 Unclassified (1 source) CHRN KIDNEY DISEASE STG 3 UNSP; Translations: [CHRN KIDNEY DISEASE STG 3 UNSP] Onset: 05-20-19 23 Unclassified (11 sources) Patient has spine surgery Onset: 02-19-20 23 02-18-2023 Unclassified (4 sources) Preprocedural examination done 03-01-2024 Unclassified (1 source) History of cervical spine fusion 03-16-2024 Viral infection (1 source) COVID-19; Translations: [COVID-19] Onset: 01-09-20 Past or Other Problems Problem Classification Problem Date Documented Da te Episodic/Chronic Abdominal hernia (20 sources) Paraesophageal hernia; 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] Onset: 10-06-2021 Resolved: 10-06-2021 Episodic Chronic kidney disease (9 sources) Chronic kidney disease; Translations: [Chronic kidney disease, stage 3 unspecified] Onset: 06-02-2021 Resolved: 11-30-2021 Diabetes mellitus without complication (1 source) Other abnormal glucose; Translations: [OTHER ABNORMAL GLUCOSE] Onset: 01-27-2022 Episodic Heart valve disorders (20 sources) Heart murmur; Translations: [Cardiac murmur, unspecified] Onset: 11-03-2021 11-03-2021 Episodic Nonspecific chest pain (1 source) Chest pain, unspecified; Translations: [CHEST PAIN, UNSPECIFIED] Onset: 01-12-2017 Episodic Other aftercare (1 source) residential (current) use of aspirin; Translations: [RETIREMENT (CURRENT) USE OF ASPIRIN] Onset: 01-12-2017 Episodic [...] Onset: 01-12-2017 Episodic Other nervous system disorders (20 sources) Abnormal gait; Translations: [Unspecified abnormalities of [...] [Refusal of blood transfusions as patient is Mandaeism] Onset: 11-03-2021 Episodic Spondylosis; intervertebral disc disorders; other back problems (20 sources) Cervical radiculopathy; Translations: [Radiculopathy, cervical region] Onset: 01-25-2022 Episodic Unclassified (20 sources) Abnormal result of other cardiovascular function study; Translations: [Renal function tests abnormal] Onset: 01-12-2017 Episodic Unclassified (1 source) CONTACT W/AND (SUSP) EXPOS COVID-19; Translations: [CONTACT W/AND (SUSP) EXPOS COVID-19] Onset: 07-27-2022 Unclassified (8 sources) Onset: 05-10-2023 Resolved: 03-21-2024 05-10-2023 Results Test Name Value Interpretation Reference Range Facility XR CERVICAL SPINE 2-3 VIEWSo n 03-16-2024 XR CERVICAL SPINE 2-3 VIEWS Interpreted By: Juan Jose Richter, STUDY: XR CERVICAL SPINE 2-3 VIEWS; ; 03/16/2024 10:38 am INDICATION: Signs/Symptoms:Assess cervical construct. ,Z98.1 Arthrodesis status COMPARISON: 10/13/2023 ACCESSION NUMBER(S): [id number] ORDERING CLINICIAN: MIREILLE ZURITA FINDINGS: Plate transfixes the cervical spine from C3 through C7. The plate is properly position and unchanged from prior examination. Prevertebral soft tissues are normal. 1-2 mm anterolisthesis C2 over C3, similar to prior examination. Remaining levels demonstrate normal alignment. Continued mild disc space height loss with anterior spurring C7-T1 unchanged. Lung apices are clear. PLATE SETTER shunt projected along the right side of the neck. IMPRESSION: Stable appearance of the cervical spine. No acute findings or radiographic change since prior examination 10/13/2023. MACRO: None Signed by: Juan Jose Richter 03/20/2024 11:46 AM Dictation workstation: [id number] [facility] MR lumbar spine wo conon MR lumbar spine wo con [facility] [address] [place] [address] MRI Report Signed Patient: Mary Goode MR#: [id number] : 1950 Acct:[id number] Age/Sex: 73 / F ADM Date: 03/08/24 Loc: [facility] Room: Type: [facility] Attending Dr: Imer Purcell MD Copies to: Imer Purcell MD Ordering Provider: Imer Purcell MD Date of Service: 03/08/24 MR/MR lumbar spine wo con: r15.9 MRI lumbar spine without IV contrast. Reason for exam: Incontinence of bowel. COMPARISON: MRI lumbar spine 02/10/2022. TECHNIQUE: Multisequence, multiplanar imaging of the lumbar spine was obtained without use of IV contrast. FINDINGS: Vertebral body heights appear maintained. Modic type endplate degenerative changes are seen with associated bone marrow edema L3-L4 similar to the prior study. Diffuse disc desiccation. Spinal cord terminates in normal position without abnormal signal. No paraspinal mass. Visualized retroperitoneum demonstrates no acute findings. Cortical scarring involving the right kidney. At L1-L2: There is a right central disc protrusion contributing to mild spinal canal narrowing. There is mild bilateral neural foraminal stenosis. Findings are unchanged. At L2-L3: There is a broad-based disc bulge with facet hypertrophy. There is mild spinal canal narrowing with moderate left and mild right neural foraminal narrowing. 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 Findings are unchanged. At L3-L4: There is a broad-based disc bulge with facet hypertrophy. There is mild spinal canal stenosis with mild right and moderate to severe left neural foraminal narrowing. Findings unchanged. At L4-L5: There is a broad-based disc bulge with facet hypertrophy. There is mild spinal canal narrowing with moderate right and mild left neural foraminal narrowing. Findings are unchanged. At L5-S1: There is a circumferential disc bulge with facet joint degenerative change. There is mild spinal canal narrowing with moderate to severe right and mild left neural foraminal narrowing. Findings are unchanged. MR/MR lumbar spine wo con IMPRESSION: Overall, no significant change in lumbar spine findings when compared to the 2021 study. Multilevel degenerative disease as described above. Impression dictated by: Olayinka Enamorado Jr., D.O.03/08/2024 2:37 PM Dictation Location: [place] [address] Transcribed By: [facility] 03/08/24 1437 Dictated By: Olayinka Enamorado Jr DO 03/08/24 1429 Signed By: 03/08/24 1437 Normal [facility] XR pre/post mri xrayon 03-08 XR pre/post mri xray [facility] [address] [place], [place] [id number] XRay Report Signed Patient: Mary Goode MR#: [id number] : 1950 Acct:[id number] Age/Sex: 73 / F ADM Date: 03/08/24 Loc: [facility] Room: Type: [facility] Attending Dr: Imer Purcell MD Copies to: Imer Purcell MD Ordering Provider: Imer Purcell MD Date of Service: 03/08/24 XR/XR pre/post mri xray: shunt pre Skull one view at 0919 hours and 0949 hours, lumbar spine 2 views Reason for exam: MRI. COMPARISON: None FINDINGS: Skull imaging demonstrates the patient's shunt setting is grossly unchanged from the pre- MRI study given differences in positioning. Lumbar spine demonstrates multilevel degenerative disease with scoliosis best evaluated by MRI. The patient's PLATE SETTER shunt tip projecting over the sacrum. Coil embolization right upper quadrant. XR/XR pre/post mri xray IMPRESSION: No significant change in shunt setting compared to the prior study performed earlier today. Lumbar spine demonstrates multilevel degenerative disease best evaluated by the MRI. Impression dictated by: Olayinka Enamorado Jr., D.OKiersten03/08/2024 2:41 PM Dictation Location: [place] [address] Transcribed By: [facility] 03/08/24 1441 Dictated By: Olayinka Enamorado Jr, DO 03/08/24 1437 Signed By: 03/08/24 1441 Normal [facility] Pathology Request for Lab Co rpon 03-06-2024 Pathology Request for Lab [place] Normal [facility] Comment on above: Order Comment: PATHO LOGY GI SPECIMEN Result Comment: See report. Scanned copy available in EMR. PERFORMED BY: [place] [address] PATHOLOGIST RESIDENT MEDICAL OFFICER JAYSON RON M.D. Performed By: #### P ATH TO [facility] #### [address] XR Knee - right 1 or 2 Views on 02-13-2024 Imaging Result: X-rays AP and lateral of right knee showed severe Valgus deformity with [id number] articulation to the lateral joint line. There is flattening of the articular surfaces laterally to the tibia plateau and lateral femoral condyle. There is marginal osteophytic formation and subchondral sclerosis noted laterally and the patellofemoral joint. There is no evidence of fracture or dislocation. Bony structures viewed showed appropriate ossification. [facility] Radiology Study observation (narrative) [facility] Albumin [Mass/volume] in Ser um or Plasma by Bromocresol green (BCG) dye binding methoOrdered By: Gino Barbosa on 01-19-2024 Albumin BCG dye [Mass/Vol] 4.0 g/dL 3.5-5.7 [facility] Bacteria [Presence] in Urine by AutomatedOrdered By: Gino Barbosa on 01-19-2024 Bacteria Auto Ql (U) 1+ [HPF] High None Seen [facility] Bilirubin Test strip Ql (U)O rdered By: Gino Barbosa on 01-19-2024 Bilirubin Ql (U) Negative Negative [facility] Calcium [Mass/volume] in Ser um or PlasmaOrdered By: Gino Barbosa on 01-19-2024 Calcium [Mass/Vol] 9.4 mg/dL Normal 8.6-10.3 [facility] Comment on above: Performed By: #### V [id number], LETICIA, CUU, ADDONUAPLUS, FE and TIBC, PROCRERAT, RENAL, CBCNO, MG #### [facility] [address] [place] [address] [place] Carbon dioxide, total [Moles /volume] in Serum or PlasmaOrdered By: Gino Barbosa on 01-19-2024 CO2 [Moles/Vol] 30.4 mmol/L Normal 21.0-31.0 [facility] Comment on above: Performed By: #### V [id number], LETICIA, CUU, ADDONUAPLUS, FE and TIBC, PROCRERAT, RENAL, CBCNO, MG #### [facility] [address] [place] [address] [place] Chloride [Moles/volume] in S madhav or PlasmaOrdered By: Gino Barbosa on 01-19-2024 Chloride [Moles/Vol] 99 mmol/L Normal 98-107 [facility] Comment on above: Performed By: #### V [id number], LETICIA, CUU, ADDONUAPLUS, FE and TIBC, PROCRERAT, RENAL, CBCNO, MG #### [facility] [address] Color of Urine by AutoOrdere d By: Gino Barbosa on 01-19-2024 Color (U) Light-yellow Normal Yellow [facility] Comment on above: Order Comment: Name Collection Type:: Clean-Voided Midstream Performed By: #### V [id number], LETICIA, CUU, ADDONUAPLUS, FE and TIBC, PROCRERAT, RENAL, CBCNO, MG #### [facility] [address] Creatinine [Mass/volume] in Serum or PlasmaOrdered By: Gino Barbosa on 01-19-2024 Creatinine [Mass/Vol] 1.02 mg/dL Normal 0.60-1.20 [facility] Comment on above: Performed By: #### V [id number], LETICIA, CUU, ADDONUAPLUS, FE and TIBC, PROCRERAT, RENAL, CBCNO, MG #### [address] Creatinine [Mass/volume] in UrineOrdered By: Gino Barbosa on 01-19-2024 Creatinine (U) [Mass/Vol] 63.00 mg/dL [facility] Comment on above: No reference range e stablished Dipstick and Microscopicon 0 01-19-2024 Bacteria,Urine 1+ High None Seen [facility] Comment on above: Order Comment: Name Collection Type:: Clean-Voided Midstream Performed By: #### V [id number], LETICIA, CUU, ADDONUAPLUS, FE and TIBC, PROCRERAT, RENAL, CBCNO, MG #### [facility] [address] [place] [address] [place] Bilirubin,Urine Negative Normal Negative [facility] Comment on above: Order Comment: Name Collection Type:: Clean-Voided Midstream Performed By: #### V [id number], LETICIA, CUU, ADDONUAPLUS, FE and TIBC, PROCRERAT, RENAL, CBCNO, MG #### [facility] [address] [place] [address] [place] Glucose Ql (U) Normal Normal Normal [facility] Comment on above: Order Comment: Name Collection Type:: Clean-Voided Midstream Performed By: #### V [id number], LETICIA, CUU, ADDONUAPLUS, FE and TIBC, PROCRERAT, RENAL, CBCNO, MG #### [address] Hyaline Casts,Urine None Normal 0-8 [facility] Comment on above: Order Comment: Name Collection Type:: Clean-Voided Midstream Result Comment: PERF ORMED BY: [place] [address] PATHOLOGIST RESIDENT MEDICAL OFFICER JAYSON RON M.D. Performed By: #### V [id number], LETICIA, CUU, ADDONUAPLUS, FE and TIBC, PROCRERAT, RENAL, CBCNO, MG #### [address] Nitrite,Urine Negative Normal Negative [facility] Comment on above: Order Comment: Name Collection Type:: Clean-Voided Midstream Performed By: #### V [id number], LETICIA, CUU, ADDONUAPLUS, FE and TIBC, PROCRERAT, RENAL, CBCNO, MG #### [address] Occult Blood,Urine Negative Normal Negative [facility] Comment on above: Order Comment: Name Collection Type:: Clean-Voided Midstream Performed By: #### V [id number], LETICIA, CUU, ADDONUAPLUS, FE and TIBC, PROCRERAT, RENAL, CBCNO, MG #### [address] Protein,Urine Negative Normal Negative [facility] Comment on above: Order Comment: Name Collection Type:: Clean-Voided Midstream Performed By: #### V [id number], LETICIA, CUU, ADDONUAPLUS, FE and TIBC, PROCRERAT, RENAL, CBCNO, MG #### [address] RBC,Urine 1-2 Normal 0-4 [facility] Comment on above: Order Comment: Name Collection Type:: Clean-Voided Midstream Performed By: #### V [id number], LETICIA, CUU, ADDONUAPLUS, FE and TIBC, PROCRERAT, RENAL, CBCNO, MG #### [facility] [address] Specificy [place],Urine 1.018 Normal 1.001-1.03 0 [facility] Comment on above: Order Comment: Name Collection Type:: Clean-Voided Midstream Performed By: #### V [id number], LETICIA, CUU, ADDONUAPLUS, FE and TIBC, PROCRERAT, RENAL, CBCNO, MG #### [address] Squamous Epithelial Cell,Urine 1-2 Normal 0-2 [facility] Comment on above: Order Comment: Name Collection Type:: Clean-Voided Midstream Performed By: #### V [id number], LETICIA, CUU, ADDONUAPLUS, FE and TIBC, PROCRERAT, RENAL, CBCNO, MG #### [address] Urobilinogen,Urine Normal Normal Normal [facility] Comment on above: Order Comment: Name Collection Type:: Clean-Voided Midstream Performed By: #### V [id number], LETICIA, CUU, ADDONUAPLUS, FE and TIBC, PROCRERAT, RENAL, CBCNO, MG #### [address] WBC,Urine 5-9 High 0-4 [facility] Comment on above: Order Comment: Name Collection Type:: Clean-Voided Midstream Performed By: #### V [id number], LETICIA, CUU, ADDONUAPLUS, FE and TIBC, PROCRERAT, RENAL, CBCNO, MG #### [address] Epithelial cells.squamous [# /area] in Urine sediment by Automated countOrdered By: Gino Barbosa on 01-19-2024 Epithelial cells.squamous Auto (Urine sed) [#/Area] 1-2 [HPF] 0-2 [facility] Erythrocyte distribution wid th [Ratio] by Automated countOrdered By: Gino Barbosa on 01-19-2024 Erythrocyte distribution width (RBC) [Ratio] 13.0 % Normal 11.9-15.3 [facility] Comment on above: Performed By: #### V [id number], LETICIA, CUU, ADDONUAPLUS, FE and TIBC, PROCRERAT, RENAL, CBCNO, MG #### [facility] [address] [place] [id number] [place] Erythrocytes [#/area] in Uri ne sediment by Automated countOrdered By: Gino Barbosa on 01-19-2024 RBC Auto (Urine sed) [#/Area] 1-2 [HPF] 0-4 [facility] Erythrocytes [#/volume] in B lood by Automated countOrdered By: Gino Barbosa on 01-19-2024 RBC (Bld) [#/Vol] 3.69 10*6/uL Normal 3.60-5.00 [facility] Comment on above: Performed By: #### V [id number], LETICIA, CUU, ADDONUAPLUS, FE and TIBC, PROCRERAT, RENAL, CBCNO, MG #### [facility] [address] [place] [id number] [place] Ferritin [Mass/volume] in Se rum or PlasmaOrdered By: Gino Barbosa on 01-19-2024 Ferritin [Mass/Vol] 42.5 ng/mL Normal 11.0-306.8 [facility] Comment on above: Performed By: #### V [id number], LETICIA, CUU, ADDONUAPLUS, FE and TIBC, PROCRERAT, RENAL, CBCNO, MG ####[facility] [address] [place] [address] [place] Glucose [Mass/volume] in Ser um or PlasmaOrdered By: Gino Barbosa on 01-19-2024 Glucose [Mass/Vol] 86 mg/dL Normal 70-100 [facility] Comment on above: ADA recommended refe rence rangeRandom Glucose Reference Range is dependent on time and content of last meal. Glucose of more than 200 mg/dL in a nonstressed, ambulatory subject supports the diagnosis of Diabetes Mellitus. Result Comment: [facility] [place] Glucose Reference Range is dependent on time and content of last meal. Glucose of more than 200 mg/dL in a nonstressed, ambulatory subject supports the diagnosis of Diabetes Mellitus. ADA recommended reference range Performed By: #### V [id number], LETICIA, CUU, ADDONUAPLUS, FE and TIBC, PROCRERAT, RENAL, CBCNO, MG #### [facility] [address] Glucose [Mass/volume] in Uri ne by Test stripOrdered By: Gino Barbosa on 01-19-2024 Glucose Test strip (U) [Mass/Vol] Normal mg/dL Normal [facility] Hematocrit [Volume Fraction] of Blood by Automated countOrdered By: Gino Barbosa on 01-19-2024 Hematocrit (Bld) [Volume fraction] 33.5 % Low 34.0-46.4 [facility] Comment on above: Performed By: #### V [id number], LETICIA, CUU, ADDONUAPLUS, FE and TIBC, PROCRERAT, RENAL, CBCNO, MG #### [facility] [address] Hemoglobin Test strip Ql (U) Ordered By: Gino Barbosa on 01-19-2024 Hemoglobin Ql (U) Negative Negative [facility] Hemoglobin [Mass/volume] in BloodOrdered By: Gino Barbosa on 01-19-2024 Hemoglobin (Bld) [Mass/Vol] 11.2 g/dL Low 11.8-15.4 [facility] Comment on above: Performed By: #### V [id number], LETICIA, CUU, ADDONUAPLUS, FE and TIBC, PROCRERAT, RENAL, CBCNO, MG #### [facility] [address] Hemogram CBC Without Diffon 01-19-2024 Mean Corpuscular HGB Conc 33.6 g/dL Normal 32.0-35.0 [facility] Comment on above: Performed By: #### V [id number], LETICIA, CUU, ADDONUAPLUS, FE and TIBC, PROCRERAT, RENAL, CBCNO, MG #### [address] WBC (Bld) [#/Vol] 9.0 10*3/uL Normal 3.8-11.6 [facility] Comment on above: Performed By: #### V [id number], LETICIA, CUU, ADDONUAPLUS, FE and TIBC, PROCRERAT, RENAL, CBCNO, MG #### [address] Hyaline casts [#/area] in Ur ine sediment by Automated countOrdered By: Gino Davalosr on 01-19-2024 Hyaline casts Auto (Urine sed) [#/Area] None [LPF] 0-8 [facility] Iron [Mass/volume] in Serum or PlasmaOrdered By: Gino Paco on 01-19-2024 Iron [Mass/Vol] 63 ug/dL Normal 50-212 [facility] Comment on above: Performed By: #### V [id number], LETICIA, CUU, ADDONUAPLUS, FE and TIBC, PROCRERAT, RENAL, CBCNO, MG #### [address] Iron and TIBC Profileon 01-07 % Iron Saturation 19.5 % Low 20-50 [facility] Comment on above: Performed By: #### V [id number], LETICIA, CUU, ADDONUAPLUS, FE and TIBC, PROCRERAT, RENAL, CBCNO, MG #### [address] Total Iron Binding Capacity 323 ug/dL Normal 255-450 [facility] Comment on above: Performed By: #### V [id number], LETICIA, CUU, ADDONUAPLUS, FE and TIBC, PROCRERAT, RENAL, CBCNO, MG #### [address] Iron binding capacity [Mass/ volume] in Serum or PlasmaOrdered By: Gino Paco on 01-19-2024 Iron binding capacity [Mass/Vol] 323 ug/dL 255-450 [facility] Iron saturation [Mass Fracti on] in Serum or PlasmaOrdered By: Gino Barbosa on 01-19-2024 Iron saturation [Mass fraction] 19.5 % Low 20-50 [facility] Ketones [Presence] in Urine by Test stripOrdered By: Gino Barbosa on 01-19-2024 Ketones Ql (U) Negative Normal Negative [facility] Comment on above: Order Comment: Name Collection Type:: Clean-Voided Midstream Performed By: #### V [id number], LETICIA, CUU, ADDONUAPLUS, FE and TIBC, PROCRERAT, RENAL, CBCNO, MG #### [facility] [address] Leukocyte esterase [Presence ] in Urine by Test stripOrdered By: Gino Barbosa on 01-19-2024 Leukocyte esterase Test strip Ql (U) 2+ High Negative [facility] Comment on above: Order Comment: Name Collection Type:: Clean-Voided Midstream Performed By: #### V [id number], LETICIA, CUU, ADDONUAPLUS, FE and TIBC, PROCRERAT, RENAL, CBCNO, MG #### [facility] [address] Leukocytes [#/area] in Urine sediment by Automated countOrdered By: Gino Barbosa on 01-19-2024 WBC Auto (Urine sed) [#/Area] 5-9 [HPF] High 0-4 [facility] Leukocytes [#/volume] correc mary for nucleated erythrocytes in Blood by Automated counOrdered By: Gino Barbosa on 01-19-2024 WBC corrected for nucl RBC Auto (Bld) [#/Vol] 9.0 10*3/uL 3.8-11.6 [facility] MCH [Entitic mass] by Automa mary countOrdered By: Gino Barbosa on 01-19-2024 MCH (RBC) [Entitic mass] 30.5 pg Normal 24.7-34.3 [facility] Comment on above: Performed By: #### V [id number], LETICIA, CUU, ADDONUAPLUS, FE and TIBC, PROCRERAT, RENAL, CBCNO, MG #### [facility] [address] MCHC Auto (RBC) [Mass/Vol]Or dered By: Gino Barbosa on 01-19-2024 MCHC (RBC) [Mass/Vol] 33.6 g/dL 32.0-35.0 [facility] MCV [Entitic volume] by Auto mated countOrdered By: Gino Barbosa on 01-19-2024 MCV (RBC) [Entitic vol] 90.7 fL Normal 80-100 [facility] Comment on above: Performed By: #### V [id number], LETICIA, CUU, ADDONUAPLUS, FE and TIBC, PROCRERAT, RENAL, CBCNO, MG #### [facility] [address] [place] [address] Magnesium [Mass/volume] in S madhav or PlasmaOrdered By: Gino Barbosa on 01-19-2024 Magnesium [Mass/Vol] 1.9 mg/dL Normal 1.9-2.7 [facility] Comment on above: Performed By: #### V [id number], LETICIA, CUU, ADDONUAPLUS, FE and TIBC, PROCRERAT, RENAL, CBCNO, MG #### [facility] [address] [place] [address] Nitrite Test strip Ql (U)Ord ered By: Gino Barbosa on 01-19-2024 Nitrite Ql (U) Negative Negative [facility] No Panel InformationOrdered By: Gino Barbosa on 01-19-2024 Estimated GFR (CKD-EPI) 58.816 mL/Min [facility] Creatinine Clearance (Chem N/A [facility] Phosphate [Mass/volume] in S madhav or PlasmaOrdered By: Gino Barbosa on 01-19-2024 Phosphate [Mass/Vol] 4.1 mg/dL Normal 2.5-4.5 [facility] Comment on above: Performed By: #### V [id number], LETICIA, CUU, ADDONUAPLUS, FE and TIBC, PROCRERAT, RENAL, CBCNO, MG #### [facility] [address] Platelet mean volume [Entiti c volume] in Blood by Automated countOrdered By: Gino Barbosa on 01-19-2024 Platelet mean volume (Bld) [Entitic vol] 7.8 fL Normal 6.3-10.7 [facility] Comment on above: Result Comment: PERF ORMED BY: [place] [address] PATHOLOGIST RESIDENT MEDICAL OFFICER JAYSON RON M.D. Performed By: #### V [id number], LETICIA, CUU, ADDONUAPLUS, FE and TIBC, PROCRERAT, RENAL, CBCNO, MG #### [address] Platelets [#/volume] in Bloo d by Automated countOrdered By: Gino Barbosa on 01-19-2024 Platelets (Bld) [#/Vol] 342 10*3/uL Normal 150-450 [facility] Comment on above: Performed By: #### V [id number], LETICAI, CUU, ADDONUAPLUS, FE and TIBC, PROCRERAT, RENAL, CBCNO, MG #### [address] Potassium [Moles/volume] in Serum or PlasmaOrdered By: Gino Barbosa on 01-19-2024 Potassium [Moles/Vol] 3.8 mmol/L Normal 3.5-5.1 [facility] Comment on above: Performed By: #### V [id number], LETICIA, CUU, ADDONUAPLUS, FE and TIBC, PROCRERAT, RENAL, CBCNO, MG #### [facility] [address] Protein Creat Ratio Ur Rando mon 01-19-2024 Creatinine, Urine (Random) 63.00 mg/dL Normal [facility] Comment on above: Result Comment: No r eference range established Performed By: #### V [id number], LETICIA, CUU, ADDONUAPLUS, FE and TIBC, PROCRERAT, RENAL, CBCNO, MG #### [facility] [address] Urine Protein/Creatinine Ratio 111 mg/g{Cre} Normal 0-200 [facility] Comment on above: Result Comment: PERF ORMED BY: [place] [address] PATHOLOGIST RESIDENT MEDICAL OFFICER JAYSON RON M.D. Performed By: #### V [id number], LETICIA, CUU, ADDONUAPLUS, FE and TIBC, PROCRERAT, RENAL, CBCNO, MG #### [address] Protein Test strip (U) [Mass /Vol]Ordered By: Gino Barbosa on 01-19-2024 Protein (U) [Mass/Vol] Negative Negative [facility] Protein [Mass/volume] in Uri neOrdered By: Gino Nguyễndir on 01-19-2024 Protein (U) [Mass/Vol] 7 mg/dL Normal 0-9 [facility] Comment on above: Performed By: #### V [id number], LETICIA, CUU, ADDONUAPLUS, FE and TIBC, PROCRERAT, RENAL, CBCNO, MG #### [facility] [address] Renal Function Panelon 01-18 Albumin [Mass/Vol] 4.0 g/dL Normal 3.5-5.7 [facility] Comment on above: Performed By: #### V [id number], LETICIA, CUU, ADDONUAPLUS, FE and TIBC, PROCRERAT, RENAL, CBCNO, MG #### [facility] [address] GFR/1.73 sq M.predicted MDRD (S/P/Bld) [Vol rate/Area] 58.816 mL/min/{1.73_m2} Normal [facility] Comment on above: Performed By: #### V [id number], LETICIA, CUU, ADDONUAPLUS, FE and TIBC, PROCRERAT, RENAL, CBCNO, MG #### [facility] [address] Serum or plasma anion gap de terminationOrdered By: Gino Paco on 01-19-2024 Anion gap [Moles/Vol] 9.4 mmol/L Normal 6.0-15.0 [facility] Comment on above: Performed By: #### V [id number], LETICIA, CUU, ADDONUAPLUS, FE and TIBC, PROCRERAT, RENAL, CBCNO, MG #### [facility] [address] Sodium [Moles/volume] in Ser um or PlasmaOrdered By: Gino Paco on 01-19-2024 Sodium [Moles/Vol] 135 mmol/L Low 136-145 [facility] Comment on above: Performed By: #### V [id number], LETICIA, CUU, ADDONUAPLUS, FE and TIBC, PROCRERAT, RENAL, CBCNO, MG #### [facility] [address] Specific gravity Test strip (U) [Rel density]Ordered By: Gino Paco on 01-19-2024 Specific gravity (U) [Rel density] 1.018 1.001-1.03 0 [facility] Transferrin [Mass/volume] in Serum or PlasmaOrdered By: Gino Paco on 01-19-2024 Transferrin [Mass/Vol] 231 mg/dL Normal 203-362 [facility] Comment on above: Performed By: #### V [id number], LETICIA, CUU, ADDONUAPLUS, FE and TIBC, PROCRERAT, RENAL, CBCNO, MG #### [facility] [address] [place] [address] [place] Urea nitrogen [Mass/volume] in Serum or PlasmaOrdered By: Gino Paco on 01-19-2024 Urea nitrogen [Mass/Vol] 25 mg/dL Normal 7-25 [facility] Comment on above: Performed By: #### V [id number], LETICIA, CUU, ADDONUAPLUS, FE and TIBC, PROCRERAT, RENAL, CBCNO, MG #### [facility] [address] [place] [id number] [facility] Urine Cultureon 01-19-2024 Bacteria identified Cx Nom (U) 20,000 colonies/ml mixed bacterial skin contaminants 2 Days PERFORMED BY: [place] [address] PATHOLOGIST RESIDENT MEDICAL OFFICER JAYSON RON M.D. Normal [facility] Comment on above: Performed By: #### V [id number], LETICIA, CUU, ADDONUAPLUS, FE and TIBC, PROCRERAT, RENAL, CBCNO, MG ####[facility] [address] Urine appearanceOrdered By: Gino Barbosa on 01-19-2024 Appearance (U) Clear Normal Clear [facility] Comment on above: Order Comment: Name Collection Type:: Clean-Voided Midstream Performed By: #### V [id number], LETICIA, CUU, ADDONUAPLUS, FE and TIBC, PROCRERAT, RENAL, CBCNO, MG #### [facility] [address] Urine culture routineOrdered By: Gino Barbosa on 01-19-2024 Bacteria identified Cx Nom (U) 2 Days [facility] Urine protein/creatinine rat ioOrdered By: Gino Barbosa on 01-19-2024 Protein/Creatinine (U) [Ratio] 111 mg/g{Cre} 0-200 [facility] Urobilinogen Test strip (U) [Mass/Vol]Ordered By: Gino Barbosa on 01-19-2024 Urobilinogen (U) [Mass/Vol] Normal mg/dL Normal [facility] Vitamin D 25 Hydroxy Totalon 01-19-2024 Vitamin D 25 Hydroxy Total 31.0 ng/mL Normal 30-100 [facility] Comment on above: Result Comment: SASKIA MIN D STATUS 25(OH)VITAMIN D RANGE (ng/mL) Deficient <20 Insufficient 20 to <30 Sufficient 30 to 100 Reference: Mitzi MF,Manish NC, Gianni HOYT, et al. Evaluation,treatment, and prevention of vitamin D deficiency; an Endocrine Society clinical practice guideline. JCEM. 2010; 96(7):1911-30. PERFORMED BY: [place] [address] PATHOLOGIST RESIDENT MEDICAL OFFICER JAYSON RON M.D. Performed By: #### V [id number], LETICIA, CUU, ADDONUAPLUS, FE and TIBC, PROCRERAT, RENAL, CBCNO, MG ####[facility] [address] [place] [address] [facility] Vitamin D+Metabolites [Mass/ volume] in Serum or PlasmaOrdered By: Gino Barbosa on 01-19-2024 Vitamin D+Metabolites [Mass/Vol] 31.0 ng/mL 30-100 [facility] Comment on above: VITAMIN D STATUS 25( [place])VITAMIN D RANGE (ng/mL) Deficient <20 Insufficient 20 to <30Sufficient 30 to 100Reference: Mitzi MF,Manish NC, Gianni HOYT, et al. Evaluation,treatment, and prevention of vitamin D deficiency; an Endocrine Society clinical practice guideline. JCEM. 2010; 96(7):1911-30. pH of Urine by Test stripOrd ered By: Gino Barbosa on 01-19-2024 pH (U) 6.0 [pH] Normal 5.0-9.0 [facility] Comment on above: Order Comment: Name Collection Type:: Clean-Voided Midstream Performed By: #### V [id number], LETICIA, CUU, ADDONUAPLUS, FE and TIBC, PROCRERAT, RENAL, CBCNO, MG #### [facility] [address] [place] [address] [facility] MM screening mammo BI w/CADo n 12-08-2023 MM screening mammo BI w/CAD [facility] [place] [address] [place] [address] Mammography Report Signed Patient: Mary Goode MR#: [id number] : 1950 Acct:[id number] Age/Sex: 73 / F ADM Date: 12/08/23 Loc: [place] Room: Type: [facility] Attending Dr: Imer Purcell MD Copies to: Imer Purcell MD Ordering Provider: Imer Purcell MD Date of Service: 12/08/23 MM/MM screening mammo BI w/CAD: SCREENING BILATERAL Screening Full Field digital mammogram with 3-D imaging. Full field digital CC and MLO imaging performed. CAD utilized. COMPARISON: 07/30/2022 HISTORY: Annual screening BREAST COMPOSITION: Scattered fibroglandular densities of the breast parenchyma identified BREAST CALCIFICATIONS: Benign calcifications present. VASCULAR CALCIFICATIONS: None ARCHITECTURAL DISTORTION: None BREAST NODULE: None AXILLARY LYMPH NODES: Normal POSTSURGICAL CHANGES: Right biopsy marking clip redemonstrated MM/MM screening mammo BI w/CAD IMPRESSION: No mammographic evidence of malignancy. Routine follow-up recommended in one year. RESULT CODE: 2 Benign Findings(s) DENSITY CODE: 2 (approximately 25-50% glandular) FOLLOW UP: 1YR THE FALSE-NEGATIVE RATE OF MAMMOGRAPHY IS APPROXIMATELY 10%. IMAGING OF A PALPABLE ABNORMALITY MUST BE BASED ON CLINICAL GROUNDS. PATIENT WAS ENTERED INTO A REMINDER SYSTEM WITH A TARGET DUE DATE FOR THE NEXT MAMMOGRAM. Impression dictated by: Adan Chen M.D.12/08/2023 3:58 PM Dictation Location: [facility] Transcribed By: [facility] 12/08/23 1558 Dictated By: Adan Chen DO 12/08/23 1527 Signed By: 12/08/23 1558 [facility] XR CERVICAL SPINE 2-3 VIEWSo 10-13-2023 XR CERVICAL SPINE 2-3 VIEWS Interpreted By: Raul Peter, STUDY: XR CERVICAL SPINE 2-3 VIEWS; ; 10/13/2023 2:32 pm INDICATION: Signs/Symptoms:S/P anterior cervical fusion. COMPARISON: 06/09/2023 ACCESSION NUMBER(S): [id number] ORDERING CLINICIAN: MIREILLE ZURITA FINDINGS: C-spine, two views Anterior spinal fusion extending from C3 through C7. There is mild disc space narrowing osteophytosis at C7-T1. No fracture seen. No spondylolisthesis. IMPRESSION: Anterior spinal fusion C3-C7 with intact hardware. No malalignment MACRO: None Signed by: Raul Peter 10/14/2023 6:10 PM Dictation workstation: [id number] [facility] Comment on above: Order Comment: Uprig ht AP/Lat XR Cervical spine 2 or 3 Vie wson 06-10-2023 No hardware failure at the C3-C7 anterior fusion. Mild spondylosis at C7-T1 MACRO: None Signed by: Raul Peter 06/10/2023 6:21 PM Dictation workstation: [id number] [facility] Interpreted By: Raul Hernandes, STUDY: XR CERVICAL SPINE 2-3 VIEWS; ; 06/09/2023 2:35 pm INDICATION: Signs/Symptoms:To assess the fusion. COMPARISON: 05/05/2023 ACCESSION NUMBER(S): [id number] ORDERING CLINICIAN: MIREILLE ZURITA FINDINGS: C-spine, two [...] assess the fusion. COMPARISON: 05/05/2023 ACCESSION NUMBER(S): [id number] ORDERING CLINICIAN: MIREILLE ZURITA FINDINGS: C-spine, two views Anterior fusion C3 through C7. The hardware is intact. The prevertebral soft tissues are within normal limits. There is no fracture or spondylolisthesis. There is mild spondylotic change at C7-T1 IMPRESSION: No hardware failure at the C3-C7 anterior fusion. Mild spondylosis at C7-T1 MACRO: None Signed by: Raul Peter 06/10/2023 6:21 PM Dictation workstation: [id number] [facility] Work Phone: XR Cervical spine 2 or 3 Vie wsOrdered By: Raul Peter on 06-10-2023 [facility] Work Phone: XR CERVICAL SPINE 2-3 VIEWSo n 06-09-2023 XR CERVICAL SPINE 2-3 VIEWS Interpreted By: Raul Peter, STUDY: XR CERVICAL SPINE 2-3 VIEWS; ; 06/09/2023 2:35 pm INDICATION: Signs/Symptoms:To assess the fusion. COMPARISON: 05/05/2023 ACCESSION NUMBER(S): [id number] ORDERING CLINICIAN: MIREILLE ZURITA FINDINGS: C-spine, two views Anterior fusion C3 through C7. The hardware is intact. The prevertebral soft tissues are within normal limits. There is no fracture or spondylolisthesis. There is mild spondylotic change at C7-T1 IMPRESSION: No hardware failure at the C3-C7 anterior fusion. Mild spondylosis at C7-T1 MACRO: None Signed by: Raul Peter 06/10/2023 6:21 PM Dictation workstation: [id number] [facility] XR Cervical spine 2 or 3 [...] appointment 05/12/2023. COMPARISON: March 22 ACCESSION NUMBER(S): [id number] ORDERING CLINICIAN: ARASELI FAUSTIN FINDINGS: Anterior cervical fusion C3 through C7 with plate and disc space replacement. Alignment normal. Prevertebral soft tissues improving. IMPRESSION: Satisfactory appearance C3 through C7 anterior fusion. Signed by: Juan Jose Sen 05/07/2023 7:02 AM Dictation workstation: [id number] [facility] ECG 12 LeadOrdered By: Camilo Parr on 03-28-2023 Atrial Rate 63 BPM [facility] Work Phone: P Golden 51 degrees [facility] Work Phone: P Offset 183 ms [facility] Work Phone: P Onset 128 ms [facility] Work Phone: KS Interval 192 ms [facility] Work Phone: Q Onset 224 ms [facility] Work Phone: QRS Count 10 beats [facility] Work Phone: [phone] QRS Duration 84 ms [facility] Work Phone: [phone] QT Interval 406 ms [facility] Work Phone: [phone] QTC Calculation(Bazett) 415 ms [facility] Work Phone: [phone] QTC Fredericia 412 ms [facility] Work Phone: [phone] R Golden 52 degrees [facility] Work Phone: [phone] T Golden 44 degrees [facility] Work Phone: [phone] T Offset 427 ms [facility] Work Phone: [phone] Ventricular Rate 63 BPM [facility] Work Phone: [phone] [facility] Work Phone: ECG 12 Leadon 03-28-2023 Normal sinus rhythm Normal ECG No previous ECGs available Confirmed by Camilo Parr ([id number]) on 03/28/2023 9:17:27 PM MUSE Camilo Parr MD - Normal sinus rhythm Normal ECG No previous ECGs available Confirmed by Camilo Parr ([id number]) on 03/28/2023 9:17:27 PM [facility] Work Phone: Basic metabolic 2000 panelon 03-23-2023 Anion gap [Moles/Vol] 13 mmol/L 10 - 2 0 mmol/L [facility] Calcium [Mass/Vol] 8.7 mg/dL 8.6 - 10. 3 mg/dL [facility] Chloride [Moles/Vol] 101 mmol/L 98 - 10 7 mmol/L [facility] CO2 [Moles/Vol] [...] race variable for the IDMS-Traceable creatinine methods. https://jasn.asnjournals.org/content//ASN.250661 0272 Glucose [Mass/Vol] 97 mg/dL 74 - 99 mg/dL [facility] Interpretation and review of laboratory results Normal [facility] Potassium [Moles/Vol] 3.7 mmol/L 3.5 - 5.3 mmol/L [facility] Sodium [Moles/Vol] 136 mmol/L 136 - 145 mmol/L [facility] Urea nitrogen [Mass/Vol] 11 mg/dL 6 - 23 mg/dL [facility] Anion gap [Moles/Vol] 13 mmol/L Normal 10-20 [facility] Comment on above: Performed By: #### 3 4529-8 #### MADELEINE ROSE ([id number]) [facility]) [address] [place] [address] Calcium [Mass/Vol] 8.7 mg/dL Normal 8.6-10.3 [facility] Comment on above: Performed By: #### 3 4529-8 #### MADELEINE BARRIOSI ([id number]) [facility] [address] [place] [address] Chloride [Moles/Vol] 101 mmol/L Normal 98-107 [facility] Comment on above: Performed By: #### 3 4529-8 #### MADELEINE RESTREPOFRI ([id number]) [facility] ([facility]) [address] [place] [address] CO2 [Moles/Vol] 26 mmol/L Normal 21-32 [facility] Comment on above: Performed By: #### 3 4529-8 #### MADELEINE RESTREPOFRI ([id number]) [facility] [address] [place] [address] Creatinine [Mass/Vol] 0.90 mg/dL Normal 0.50-1.05 [facility] Comment on above: Performed By: #### 3 4529-8 #### MADELEINE ROSE ([id number]) [facility] ([facility]) [address] [place] [address] GFR/1.73 sq M.predicted MDRD (S/P/Bld) [Vol rate/Area] 69 mL/min/1.73m*2 Normal >60 [facility] Comment on above: Result Comment: Calc ulations of estimated GFR are performed using the 2020 CKD-EPI Study Refit equation without the race variable for the IDMS-Traceable creatinine methods. https://jasn.asnjournals.org/content/early/ASN.196942 7947 Performed By: #### 3 4529-8 #### MADELEINE ROSE ([id number]) [facility] ([facility]) [address] [place] [address] Glucose [Mass/Vol] 97 mg/dL Normal 74-99 [facility] Comment on above: Performed By: #### 3 4529-8 #### MADELEINE ROSE ([id number]) [facility]) [address] [place] [address] Potassium [Moles/Vol] 3.7 mmol/L Normal 3.5-5.3 [facility] Comment on above: Performed By: #### 3 4529-8 #### MADELEINE ROSE ([id number]) [facility]) [address] [place] [address] Sodium [Moles/Vol] 136 mmol/L Normal 136-145 [facility] Comment on above: Performed By: #### 3 4529-8 #### MADELEINE ROSE ([id number]) [facility]) [address] [place] [address] Urea nitrogen [Mass/Vol] 11 mg/dL Normal 6-23 [facility] Comment on above: Performed By: #### 3 4529-8 #### MADELENIE ROSE ([id number]) [facility]) [address] [place] [address] CBC panel Auto (Bld)on 03-23 Erythrocyte distribution [...] Hospital RBC (Bld) [#/Vol] 3.75 10*6/uL Low [facility] WBC (Bld) [#/Vol] 9.9 10*3/uL [facility] Erythrocyte distribution width (RBC) [Ratio] 13.4 % Normal 11.5-14.5 [facility] Comment on above: Performed By: #### 3 4529-8 #### MADELEINE ROSE ([id number]) [facility]) [address] [place] [address] Hematocrit (Bld) [Volume fraction] 35.3 % Low 36.0-46.0 [facility] Comment on above: Performed By: #### 3 4529-8 #### MADELEINE ROSE ([id number]) [facility]) [address] [place] [address] Hemoglobin (Bld) [Mass/Vol] 11.4 g/dL Low 12.0-16.0 [facility] Comment on above: Performed By: #### 3 4529-8 #### MADELEINE ROSE ([id number]) [facility] [address] [place] [address] MCH (RBC) [Entitic mass] 30.4 pg Normal 26.0-34.0 [facility] Comment on above: Performed By: #### 3 4529-8 #### MADELEINE ROSE ([id number]) [facility]) [address] [place] [address] MCHC (RBC) [Mass/Vol] 32.3 g/dL Normal 32.0-36.0 [facility] Comment on above: Performed By: #### 3 4529-8 #### MADELEINE ROSE ([id number]) [facility] [address] [place] [address] MCV (RBC) [Entitic vol] 94 fL Normal 80-100 [facility] Comment on above: Performed By: #### 3 4529-8 #### MADELEINE ROSE ([id number]) [facility]) [address] [place] [address] Nucleated RBC/100 WBC (Bld) [Ratio] 0.0 /100 WBCs Normal 0.0-0.0 [facility] Comment on above: Performed By: #### 3 4529-8 #### MADELEINE ROSE ([id number]) [facility] ([facility]) [address] [place] [address] Platelets (Bld) [#/Vol] 310 x10*3/uL Normal 150-450 [facility] Comment on above: Performed By: #### 3 4529-8 #### MADELEINE ROSE ([id number]) [facility]) [address] [place] [address] RBC (Bld) [#/Vol] 3.75 x10*6/uL Low 4.00-5.20 [facility] Comment on above: Performed By: #### 3 4529-8 #### MADELEINE ROSE ([id number]) [facility]) [address] [place] [address] WBC (Bld) [#/Vol] 9.9 x10*3/uL Normal 4.4-11.3 [facility] Comment on above: Performed By: #### 3 4529-8 #### MADELEINE ROSE ([id number]) [facility] [address] [place] [address] Basic metabolic 2000 panelon 03-22-2023 Anion gap [Moles/Vol] 11 mmol/L 10 - 2 0 mmol/L [facility] Calcium [Mass/Vol] 8.8 mg/dL 8.6 - 10. 3 mg/dL [facility] Chloride [Moles/Vol] 102 mmol/L 98 - 10 7 mmol/L [facility] CO2 [Moles/Vol] 26 mmol/L 21 - 32 mmol/L [facility] Creatinine [Mass/Vol] 0.83 mg/dL 0.50 - 1.05 mg/dL [facility] GFR/1.73 sq M.predicted MDRD (S/P/Bld) [Vol rate/Area] 76 mL/min/{1.73_m2} - PINF [facility] Comment on above: Calculations of gabriela mated GFR are performed using the 2020 CKD-EPI Study Refit equation without the race variable for the IDMS-Traceable creatinine methods. https://jasn.asnjournals.org/content//ASN.569967 0546 Glucose [Mass/Vol] 109 mg/dL High 74 - 99 mg/dL [facility] Interpretation and review of laboratory results Abnormal [facility] Potassium [Moles/Vol] 3.9 mmol/L 3.5 - 5.3 mmol/L [facility] Sodium [Moles/Vol] 135 mmol/L Low 136 - 145 mmol/L [facility] Urea nitrogen [Mass/Vol] 11 mg/dL 6 - 23 mg/dL [facility] Anion gap [Moles/Vol] 11 mmol/L Normal 10-20 [facility] Comment on above: Performed By: #### 2 4321-2 #### MADELEINE ROSE ([id number]) [facility]) [address] [place] [address] Calcium [Mass/Vol] 8.8 mg/dL Normal 8.6-10.3 [facility] Comment on above: Performed By: #### 2 4321-2 #### MADELEINE ROSE ([id number]) [facility] [address] [place] [address] Chloride [Moles/Vol] 102 mmol/L Normal 98-107 [facility] Comment on above: Performed By: #### 2 4321-2 #### MADELEINE ROSE ([id number]) [facility] [address] [place] [address] CO2 [Moles/Vol] 26 mmol/L Normal 21-32 [facility] Comment on above: Performed By: #### 2 4321-2 #### MADELEINE ROSE ([id number]) [facility] [address] [place] [address] Creatinine [Mass/Vol] 0.83 mg/dL Normal 0.50-1.05 [facility] Comment on above: Performed By: #### 2 4321-2 #### MADELEINE ROSE ([id number]) [facility]) [address] [place] [address] GFR/1.73 sq M.predicted MDRD (S/P/Bld) [Vol rate/Area] 76 mL/min/1.73m*2 Normal >60 [facility] Comment on above: Result Comment: Calc ulations of estimated GFR are performed using the 2020 CKD-EPI Study Refit equation without the race variable for the IDMS-Traceable creatinine methods. https://jasn.asnjournals.org/content/early//ASN.863662 4514 Performed By: #### 2 4321-2 #### MADELEINE ROSE ([id number]) [facility] [address] [place] [address] Glucose [Mass/Vol] 109 mg/dL High 74-99 [facility] Comment on above: Performed By: #### 2 4321-2 #### MADELEINE ROSE ([id number]) [facility] [address] [place] [address] Potassium [Moles/Vol] 3.9 mmol/L Normal 3.5-5.3 [facility] Comment on above: Performed By: #### 2 4321-2 #### MADELEINE ROSE ([id number]) [facility] [address] [place] [address] Sodium [Moles/Vol] 135 mmol/L Low 136-145 [facility] Comment on above: Performed By: #### 2 4321-2 #### MADELEINE ROSE ([id number]) [facility] [address] [place] [address] Urea nitrogen [Mass/Vol] 11 mg/dL Normal 6-23 [facility] Comment on above: Performed By: #### 2 4321-2 #### MADELEINE ROSE ([id number]) [facility] [address] [place] [address] CBC panel Auto (Bld)on 03-22 Erythrocyte distribution [...] Hospital RBC (Bld) [#/Vol] 3.84 10*6/uL Low [facility] WBC (Bld) [#/Vol] 12.1 10*3/uL High [facility] Erythrocyte distribution width (RBC) [Ratio] 13.5 % Normal 11.5-14.5 [facility] Comment on above: Performed By: #### 5 8410-2 #### MADELEINE ROSE ([id number]) [facility] [address] [place] [address] Hematocrit (Bld) [Volume fraction] 36.7 % Normal 36.0-46.0 [facility] Comment on above: Performed By: #### 5 8410-2 #### MADELEINE ROSE ([id number]) [facility] [address] [place] [address] Hemoglobin (Bld) [Mass/Vol] 11.6 g/dL Low 12.0-16.0 [facility] Comment on above: Performed By: #### 5 8410-2 #### MADELEINE ROSE ([id number]) [facility] [address] [place] [address] MCH (RBC) [Entitic mass] 30.2 pg Normal 26.0-34.0 [facility] Comment on above: Performed By: #### 5 8410-2 #### MADELEINE ROSE ([id number]) [facility] [address] [place] [address] MCHC (RBC) [Mass/Vol] 31.6 g/dL Low 32.0-36.0 [facility] Comment on above: Performed By: #### 5 8410-2 #### MADELEINE ROSE ([id number]) [facility] [facility] ([facility] [address] [place] [address] MCV (RBC) [Entitic vol] 96 fL Normal 80-100 [facility] Comment on above: Performed By: #### 5 8410-2 #### MADELEINE ROSE ([id number]) [facility] ([facility]) [address] [place] [address] Nucleated RBC/100 WBC (Bld) [Ratio] 0.0 /100 WBCs Normal 0.0-0.0 [facility] Comment on above: Performed By: #### 5 8410-2 #### MADELEINE ROSE ([id number]) [facility] ([facility]) [address] [place] [address] Platelets (Bld) [#/Vol] 330 x10*3/uL Normal 150-450 [facility] Comment on above: Performed By: #### 5 8410-2 #### MADELEINE ROSE ([id number]) [facility] ([facility]) [address] [place] [address] RBC (Bld) [#/Vol] 3.84 x10*6/uL Low 4.00-5.20 [facility] Comment on above: Performed By: #### 5 8410-2 #### MADELEINE ROSE ([id number]) [facility] ([facility]) [address] [place] [address] WBC (Bld) [#/Vol] 12.1 x10*3/uL High 4.4-11.3 [facility] Comment on above: Performed By: #### 5 8410-2 #### MADELEINE ROSE ([id number]) [facility] ([facility]) [address] [place] [address] XR CERVICAL SPINE 2-3 VIEWSo n 03-22-2023 XR CERVICAL SPINE 2-3 VIEWS Interpreted By: Juwan Petit, STUDY: XR CERVICAL SPINE 2-3 VIEWS; ; 03/22/2023 6:16 am INDICATION: Signs/Symptoms:post op evaluation. COMPARISON: 03/21/2023 at 12:31 p.m. ACCESSION NUMBER(S): [id number] ORDERING CLINICIAN: MARY PATRICK FINDINGS: Two view [...] Juwan Petit 03/22/2023 9:24 AM Dictation workstation: [id number] [facility] XR Cervical spine 2 or 3 [...] Juwan Petit 03/22/2023 9:24 AM Dictation workstation: [id number] [facility] Interpreted By: Juwan Rhoades, STUDY: XR CERVICAL SPINE 2-3 VIEWS; ; 03/22/2023 6:16 am INDICATION: Signs/Symptoms:post op evaluation. COMPARISON: 03/21/2023 at 12:31 p.m. ACCESSION NUMBER(S): [id number] ORDERING CLINICIAN: MARY PATRICK FINDINGS: Two view [...] some overlying densities/artifacts otherwise limiting evaluation however. [facility] MM[facility] Juwan Petit, DO - 03/22/2023 Interpreted By: Juwan Petit, STUDY: XR CERVICAL SPINE 2-3 VIEWS; ; 03/22/2023 6:16 am INDICATION: Signs/Symptoms:post op evaluation. COMPARISON: 03/21/2023 at 12:31 p.m. ACCESSION NUMBER(S): [id number] ORDERING CLINICIAN: MARY PATRICK FINDINGS: Two view [...] Juwan Petit 03/22/2023 9:24 AM Dictation workstation: [id number] [facility] Work Phone: [facility] Work Phone: Radiology Study observation (narrative) [facility] Work Phone: XR Cervical spine Single vie won 03-22-2023 As above. MACRO: None Signed by: Juwan Petit 03/22/2023 9:17 AM Dictation workstation: [id number] [facility] Interpreted By: Juwan Rhoades, STUDY: XR CERVICAL SPINE 1 VIEW; ; 03/21/2023 12:54 pm INDICATION: Signs/Symptoms:surgical procedure. COMPARISON: 03/21/2023 at 10:17 a.m. ACCESSION NUMBER(S): [id number] ORDERING CLINICIAN: MIREILLE ZURITA FINDINGS: Single lateral [...] previously. Continued clinical correlation and follow-up advised. MMODAL Juwan Petit DO - 03/22/2023 Interpreted By: Juwan Petit, STUDY: XR CERVICAL SPINE 1 VIEW; ; 03/21/2023 12:54 pm INDICATION: Signs/Symptoms:surgical procedure. COMPARISON: 03/21/2023 at 10:17 a.m. ACCESSION NUMBER(S): [id number] ORDERING CLINICIAN: MIREILLE ZURITA FINDINGS: Single lateral [...] Juwan Petit 03/22/2023 9:17 AM Dictation workstation: [id number] [facility] Work Phone: [facility] Work Phone: As above. MACRO: None Signed by: Juwan Petit 03/22/2023 9:13 AM Dictation workstation: [id number] [facility] Interpreted By: Juwan Rhoades, STUDY: XR CERVICAL SPINE 1 VIEW; ; 03/21/2023 10:16 am INDICATION: Signs/Symptoms:surgical procedure. COMPARISON: 03/21/2023 at 8:58 a.m. ACCESSION NUMBER(S): [id number] ORDERING CLINICIAN: MIREILLE ZURITA FINDINGS: Single lateral [...] clinical correlation and follow-up advised. MMODAL Juwan Petit, DO - 03/22/2023 Interpreted By: Juwan Petit, STUDY: XR CERVICAL SPINE 1 VIEW; ; 03/21/2023 10:16 am INDICATION: Signs/Symptoms:surgical procedure. COMPARISON: 03/21/2023 at 8:58 a.m. ACCESSION NUMBER(S): [id number] ORDERING CLINICIAN: MIREILLE ZURITA FINDINGS: Single lateral [...] Juwan Petit 03/22/2023 9:13 AM Dictation workstation: [id number] [facility] Work Phone: [facility] [...] Juwan Petit 03/22/2023 9:09 AM Dictation workstation: [id number] [facility] Interpreted By: Juwan Rhoades, STUDY: XR CERVICAL SPINE 1 VIEW; ; 03/21/2023 8:59 am INDICATION: Signs/Symptoms:Cervical spondylosis with myelopathy. COMPARISON: 03/21/2023 at 8:10 a.m. ACCESSION NUMBER(S): [id number] ORDERING CLINICIAN: MIREILLE ZURITA FINDINGS: Single lateral [...] well with some regional soft tissue swelling. MMODAL Juwan Petit, DO - 03/22/2023 Interpreted By: Juwan Petit, STUDY: XR CERVICAL SPINE 1 VIEW; ; 03/21/2023 8:59 am INDICATION: Signs/Symptoms:Cervical spondylosis with myelopathy. COMPARISON: 03/21/2023 at 8:10 a.m. ACCESSION NUMBER(S): [id number] ORDERING CLINICIAN: MIREILLE ZURITA FINDINGS: Single lateral [...] Juwan Petit 03/22/2023 9:09 AM Dictation workstation: [id number] [facility] Work Phone: [facility] Work Phone: XR CERVICAL SPINE 1 VIEWon 1 05-21-2022 XR CERVICAL SPINE 1 VIEW Interpreted By: Juwan Petit, STUDY: XR CERVICAL SPINE 1 VIEW; ; 03/21/2023 12:54 pm INDICATION: Signs/Symptoms:surgical procedure. COMPARISON: 03/21/2023 at 10:17 a.m. ACCESSION NUMBER(S): [id number] ORDERING CLINICIAN: MIREILLE ZURITA FINDINGS: Single lateral [...] Juwan Petit 03/22/2023 9:17 AM Dictation workstation: [id number] [facility] XR CERVICAL SPINE 1 VIEW Interpreted By: Juwan Petit, STUDY: XR CERVICAL SPINE 1 VIEW; ; 03/21/2023 10:16 am INDICATION: Signs/Symptoms:surgical procedure. COMPARISON: 03/21/2023 at 8:58 a.m. ACCESSION NUMBER(S): [id number] ORDERING CLINICIAN: MIREILLE ZURITA FINDINGS: Single lateral [...] Juwan Petit 03/22/2023 9:13 AM Dictation workstation: [id number] [facility] XR CERVICAL SPINE 1 VIEW Interpreted By: Juwan Petit, STUDY: XR CERVICAL SPINE 1 VIEW; ; 03/21/2023 8:59 am INDICATION: Signs/Symptoms:Cervical spondylosis with myelopathy. COMPARISON: 03/21/2023 at 8:10 a.m. ACCESSION NUMBER(S): [id number] ORDERING CLINICIAN: MIREILLE ZURITA FINDINGS: Single lateral [...] Juwan Petit 03/22/2023 9:09 AM Dictation workstation: [id number] [facility] XR CERVICAL SPINE 1 VIEW Interpreted By: Juwan Petit, STUDY: XR CERVICAL SPINE 1 VIEW; ; 03/21/2023 8:11 am INDICATION: Signs/Symptoms:surgical procedure. COMPARISON: 04/25/2020 ACCESSION NUMBER(S): [id number] ORDERING CLINICIAN: MIREILLE ZURITA FINDINGS: Single lateral [...] Juwan Petit 03/21/2023 8:52 AM Dictation workstation: [id number] [facility] XR Cervical spine Single vie won 03-21-2023 Radiology Study observation (narrative) [facility] Work Phone: Radiology Study observation (narrative) [facility] Work Phone: Radiology Study observation (narrative) [facility] Work Phone: As above. MACRO: None Signed by: Juwan Petit 03/21/2023 8:52 AM Dictation workstation: [id number] [facility] Interpreted By: Juwan Rhoades, STUDY: XR CERVICAL SPINE 1 VIEW; ; 03/21/2023 8:11 am INDICATION: Signs/Symptoms:surgical procedure. COMPARISON: 04/25/2020 ACCESSION NUMBER(S): [id number] ORDERING CLINICIAN: MIREILLE ZURITA FINDINGS: Single lateral [...] of uncertain significance. [facility] Juwan Petit, DO - 03/21/2023 Interpreted By: Juwan Petit, STUDY: XR CERVICAL SPINE 1 VIEW; ; 03/21/2023 8:11 am INDICATION: Signs/Symptoms:surgical procedure. COMPARISON: 04/25/2020 ACCESSION NUMBER(S): [id number] ORDERING CLINICIAN: MIREILLE ZURITA FINDINGS: Single lateral [...] Juwan Petit 03/21/2023 8:52 AM Dictation workstation: [id number] [facility] Work Phone: Radiology [...] Nom (Unsp spec) No Staphylococcus aureus isolated [facility] XR Chest 2 Viewson 3 No acute cardiopulmo nary disease. MACRO: none Signed by: Zeynep Sen 03/15/2023 12:07 PM Dictation workstation: [id number] [facility] Interpreted By: Zeynep Palafox, STUDY: XR CHEST 2 VIEWS; 03/14/2023 2:09 pm INDICATION: Signs/Symptoms:preop testing. COMPARISON: None. ACCESSION NUMBER(S): [id number] ORDERING CLINICIAN: MIREILLE ZURITA FINDINGS: Heart is [...] INDICATION: Signs/Symptoms:preop testing. COMPARISON: None. ACCESSION NUMBER(S): [id number] ORDERING CLINICIAN: MIREILLE ZURITA FINDINGS: Heart is [...] Zeynep Sen 03/15/2023 12:07 PM Dictation workstation: [id number] [facility] Work Phone: XR [...] [facility] RBC (Bld) [#/Vol] 4.05 10*6/uL [facility] WBC (Bld) [#/Vol] 8.6 10*3/uL [facility] Erythrocyte distribution width (RBC) [Ratio] 13.0 % Normal 11.5-14.5 [facility] Comment on above: Performed By: #### 5 8410-2 #### MADELEINE ROSE ([id number]) [facility] ([facility]) [address] [place] [address] Hematocrit (Bld) [Volume fraction] 37.8 % Normal 36.0-46.0 [facility] Comment on above: Performed By: #### 5 8410-2 #### MADELEINE ROSE ([id number]) [facility] ([facility]) [address] [place] [address] Hemoglobin (Bld) [Mass/Vol] 12.2 g/dL Normal 12.0-16.0 [facility] Comment on above: Performed By: #### 5 8410-2 #### MADELEINE ROSE ([id number]) [facility] ([facility]) [address] [place] [address] MCH (RBC) [Entitic mass] 30.1 pg Normal 26.0-34.0 [facility] Comment on above: Performed By: #### 5 8410-2 #### MADELEINE ROSE ([id number]) [facility] ([facility]) [address] [place] [address] MCHC (RBC) [Mass/Vol] 32.3 g/dL Normal 32.0-36.0 [facility] Comment on above: Performed By: #### 5 8410-2 #### MADELEINE ROSE ([id number]) [facility] ([facility]) [address] [place] [address] MCV (RBC) [Entitic vol] 93 fL Normal 80-100 [facility] Comment on above: Performed By: #### 5 8410-2 #### MADELEINE ROSE ([id number]) [facility] ([facility]) [address] [place] [address] Nucleated RBC/100 WBC (Bld) [Ratio] 0.0 /100 WBCs Normal 0.0-0.0 [facility] Comment on above: Performed By: #### 5 8410-2 #### MADELEINE ROSE ([id number]) [facility] ([facility]) [address] [place] [address] Platelets (Bld) [#/Vol] 350 x10*3/uL Normal 150-450 [facility] Comment on above: Performed By: #### 5 8410-2 #### MADELEINE ROSE ([id number]) [facility] ([facility]) [address] [place] [address] RBC (Bld) [#/Vol] 4.05 x10*6/uL Normal 4.00-5.20 [facility] Comment on above: Performed By: #### 5 8410-2 #### MADELEINE ROSE ([id number]) [facility] ([facility]) [address] [place] [address] WBC (Bld) [#/Vol] 8.6 x10*3/uL Normal 4.4-11.3 [facility] Comment on above: Performed By: #### 5 8410-2 #### MADELEINE ROSE ([id number]) [facility] ([facility]) [address] [place] [address] Comprehensive metabolic 2000 panelon 03-14-2023 Albumin BCP dye [Mass/Vol] 4.3 g/dL 3.4 [...] Anion gap [Moles/Vol] 10 mmol/L 10 - 2 0 mmol/L [facility] AST With P-5'-P [Catalytic activity/Vol] 13 U/L 9 - 39 U/L [facility] Bilirubin [Mass/Vol] 0.5 mg/dL 0.0 - 1 .2 mg/dL [facility] Calcium [Mass/Vol] 9.2 mg/dL 8.6 - 10. 3 mg/dL [facility] Chloride [Moles/Vol] 101 mmol/L 98 - 10 7 mmol/L [facility] CO2 [Moles/Vol] [...] race variable for the IDMS-Traceable creatinine methods. https://jasn.asnjournals.org/content//ASN.052225 1011 Glucose [Mass/Vol] 83 mg/dL 74 - 99 mg/dL [facility] Potassium [Moles/Vol] 4.2 mmol/L 3.5 - 5.3 mmol/L [facility] Protein [Mass/Vol] 6.4 g/dL 6.4 - 8.2 g/dL [facility] Sodium [Moles/Vol] 136 mmol/L 136 - 145 mmol/L [facility] Urea nitrogen [Mass/Vol] 21 mg/dL 6 - 23 mg/dL [facility] Albumin BCP dye [Mass/Vol] 4.3 g/dL Normal 3.4-5.0 [facility] Comment on above: Performed By: #### 2 4323-8 #### MADELEINE ROSE ([id number]) [facility] ([facility]) [address] [place] [address] ALP [Catalytic activity/Vol] 51 U/L Normal 33-136 [facility] Comment on above: Performed By: #### 2 4323-8 #### MADELEINE ROSE ([id number]) [facility] ([facility]) [address] [place] [address] ALT With P-5'-P [Catalytic activity/Vol] 14 U/L Normal 7-45 [facility] Comment on above: Result Comment: Lorena ents treated with Sulfasalazine may generate falsely decreased results for ALT. Performed By: #### 2 4323-8 #### MADELEINE ROSE ([id number]) [facility] ([facility]) [address] [place] [address] Anion gap [Moles/Vol] 10 mmol/L Normal 10-20 [facility] Comment on above: Performed By: #### 2 432-8 #### MADELEINE ROSE ([id number]) [facility] ([facility]) [address] [place] [address] AST With P-5'-P [Catalytic activity/Vol] 13 U/L Normal 9-39 [facility] Comment on above: Performed By: #### 2 4323-8 #### MADELEINE ROSE ([id number]) [facility] ([facility]) [address] [place] [address] Bilirubin [Mass/Vol] 0.5 mg/dL Normal 0.0-1.2 [facility] Comment on above: Performed By: #### 2 4323-8 #### MADELEINE ROSE ([id number]) [facility] ([facility]) [address] [place] [address] Calcium [Mass/Vol] 9.2 mg/dL Normal 8.6-10.3 [facility] Comment on above: Performed By: #### 2 4323-8 #### MADELEINE ROSE ([id number]) [facility] ([facility]) [address] [place] [address] Chloride [Moles/Vol] 101 mmol/L Normal 98-107 [facility] Comment on above: Performed By: #### 2 4323-8 #### MADELEINE RESTREPOFRI ([id number]) [facility] ([facility]) [address] [place] [address] CO2 [Moles/Vol] 29 mmol/L Normal 21-32 [facility] Comment on above: Performed By: #### 2 4323-8 #### MADELEINE ROSE ([id number]) [facility] ([facility]) [address] [place] [address] Creatinine [Mass/Vol] 0.95 mg/dL Normal 0.50-1.05 [facility] Comment on above: Performed By: #### 2 4323-8 #### MADELEINE ROSE ([id number]) [facility] ([facility]) [address] [place] [address] GFR/1.73 sq M.predicted MDRD (S/P/Bld) [Vol rate/Area] 65 mL/min/1.73m*2 Normal >60 [facility] Comment on above: Result Comment: Calc ulations of estimated GFR are performed using the 2020 CKD-EPI Study Refit equation without the race variable for the IDMS-Traceable creatinine methods. https://jasn.asnjournals.org/content//ASN.773989 5304 Performed By: #### 2 4323-8 #### MADELEINE RESTREPOFRI ([id number]) [facility] ([facility]) [address] [place] [address] Glucose [Mass/Vol] 83 mg/dL Normal 74-99 [facility] Comment on above: Performed By: #### 2 4323-8 #### MADELEINE RESTREPOFRI ([id number]) [facility] ([facility]) [address] [place] [address] Potassium [Moles/Vol] 4.2 mmol/L Normal 3.5-5.3 [facility] Comment on above: Performed By: #### 2 4323-8 #### MADELEINE ROSE ([id number]) [facility] ([facility]) [address] [place] [address] Protein [Mass/Vol] 6.4 g/dL Normal 6.4-8.2 [facility] Comment on above: Performed By: #### 2 4323-8 #### MADELEINE ROSE ([id number]) [facility] ([facility]) [address] [place] [address] Sodium [Moles/Vol] 136 mmol/L Normal 136-145 [facility] Comment on above: Performed By: #### 2 4323-8 #### MADELEINE ROSE ([id number]) [facility] ([facility]) [address] [place] [address] Urea nitrogen [Mass/Vol] 21 mg/dL Normal 6-23 [facility] Comment on above: Performed By: #### 2 4323-8 #### MADELEINE ROSE ([id number]) [facility] ([facility]) [address] [place] [address] ECG 12-LEADon 03-14-2023 ECG 12-LEAD Ventricular Rate 63 Atrial Rate 63 P-R Interval 192 QRS Duration 84 Q-T Interval 406 QTC Calculation(Bazett) 415 P Golden 51 R Golden 52 T Golden 44 QRS Count 10 Q Onset 224 P Onset 128 P Offset 183 T Offset 427 QTC Fredericia 412 Diagnosis Normal sinus rhythm Normal ECG No previous ECGs available Confirmed by Camilo Parr ([id number]) on 03/28/2023 9:17:27 PM Normal [facility] No Panel Informationon 03-14 Interpretation and review of laboratory results Normal [facility] PT and aPTT panel Coag (PPP) on 03-14-2023 aPTT Coag (PPP) [Time] 29 s [facility] INR Coag (PPP) [Relative time] 1.0 {INR} 0.9 - 1.1 [facility] Interpretation and review of laboratory results Normal [facility] PT Coag (PPP) [Time] 11.0 s [facility] The APTT is no longe r used for monitoring Unfractionated Heparin Therapy. For monitoring Heparin Therapy, use the Heparin Assay. [facility] aPTT Coag (PPP) [Time] 29 s Normal 27-38 [facility] Comment on above: Order Comment: The A PTT is no longer used for monitoring Unfractionated Heparin Therapy. For monitoring Heparin Therapy, use the Heparin Assay. Performed By: #### 3 4529-8 #### MADELEINE ROSE ([id number]) [facility] ([facility]) [address] [place] [address] INR Coag (PPP) [Relative time] 1.0 Normal 0.9-1.1 [facility] Comment on above: Order Comment: The A PTT is no longer used for monitoring Unfractionated Heparin Therapy. For monitoring Heparin Therapy, use the Heparin Assay. Performed By: #### 3 4529-8 #### MADELEINE ROSE ([id number]) [facility] ([facility]) [address] [place] [address] PT Coag (PPP) [Time] 11.0 s Normal 9.8-12.8 [facility] Comment on above: Order Comment: The A PTT is no longer used for monitoring Unfractionated Heparin Therapy. For monitoring Heparin Therapy, use the Heparin Assay. Performed By: #### 3 4529-8 #### MADELEINE ROSE ([id number]) [facility] ([facility]) [address] [place] [address] Phosphateon 03-14-2023 Phosphate [Mass/Vol] 3.1 mg/dL Normal 2.5-4.9 [facility] Comment on above: Result Comment: The performance characteristics of phosphorus testing in heparinized plasma have been validated by the individual laboratory site where testing is performed. Testing on heparinized plasma is not approved by the FDA; however, such approval is not necessary. Performed By: #### 2 777-1 #### MADELEINE ROSE ([id number]) [facility] ([facility]) [address] [place] [address] Phosphoruson 03-14-2023 Phosphate [Mass/Vol] 3.1 mg/dL 2.5 - 4 .9 mg/dL [facility] Comment on [...] Status: Final result Abnormal: No Resulting Lab: [facility] [address] [place] [address] CULTURE No Staphylococcus aureus isolated [facility] Comment on above: Performed By: #### 5 2969-3 #### JULISSA Jarvis ([id number]) [facility] ([facility]) [address] [place] [address] XR CHEST 2 VIEWSon 3 XR CHEST 2 VIEWS Interpreted By: Zeynep Palafox, STUDY: XR CHEST 2 VIEWS; 03/14/2023 2:09 pm INDICATION: Signs/Symptoms:preop testing. COMPARISON: None. ACCESSION NUMBER(S): [id number] ORDERING CLINICIAN: MIREILLE ZURITA FINDINGS: Heart is [...] Zeynep Sen 03/15/2023 12:07 PM Dictation workstation: [id number] [facility] XR Chest 2 Viewson 3 Radiology Study observation (narrative) [facility] Work Phone: Blood Pressure Cuff Sizeon 0 01-20-2023 Adult depression screening assessment No [facility] Work Phone: Fall risk assessment a) No falls within the last year [facility] Work Phone: Tobacco use status CPHS b) No [facility] Work Phone: Blood Pressure Cuff Size Adult -[facility] Work Phone: Established Visit (Neurosurg [...] would like to proceed. She is a Mandaeism and so we definitely discussed not using blood products. She also has a PLATE SETTER shunt and and so we are going [...] would like to proceed. She is a Mandaeism and so we definitely discussed not using blood products. She also has a PLATE SETTER shunt and and so we are going [...] Tablet Vitals Vital Signs Recorded: 20Jan2023 02:47PM Jakjhdmfnot01.9 F, Temporal Heart Rate69 Ptfmetxq314, LUE, Sitting Bbagexlvw89, LUE, Sitting Blood Pressure Cuff SizeAdult Height5 ft 3 in Yfijaz322 lb BMI Dquuafcwed79.29 kg/m2 BSA Calculated1.81 Tobacco Useb) No PHQ (more content not included)... 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 : No [...] has been experiencing. 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 [...] has been experiencing. 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 I also suggested that she start considering getting second opinions. I am goi (more content not included)... Normal [facility] Tobacco Screening.on 023 Adult depression screening assessment Yes [facility] Work Phone: Adult depression screening assessment No [facility] Work Phone: Adult depression screening assessment Mild (5-9) [facility] Work Phone: Fall risk assessment b) One or more fall s in the last year [facility] Work Phone: Tobacco use status CPHS b) No [facility] Work Phone: Tobacco Screening. 0-Not at all [facility] Work Phone: Tobacco Screening. 1-Several days [facility] Work Phone: Tobacco Screening. 2-More than half the days [facility] Work Phone: Covid-19 PCR ([facility])on 07-08 SARS-CoV-2 (COVID-19) RNA CONRADO+probe Ql (Unsp spec) Not detected Normal NOT DETECTED [facility] Comment on above: Result Comment: This test is not yet approved or cleared by the [place] FDA. When there are no FDA-approved or cleared tests available, and other criteria are met, FDA can make tests available under an emergency access mechanism called an Emergency Use Authorization (EUA). The EUA for this test is supported by the [place] of Health and Human Service's (HHS's) declaration [...] SARS-CoV-2. Performed By: #### O BSCRN #### [facility] [address] [place] [address] Dr. Shobha Ruffin TSHon 07-21-2022 TSH 0.487 uIU/mL Normal 0.358-3.74 0 [facility] Comment on above: Performed By: #### O BSCRN #### [facility] [address] [address] [address] Shobha Ruffin VITAMIN B12on 07-21-2022 Cobalamin (Vitamin B12) [Mass/Vol] 554.0 pg/mL Normal 193.0-986. [address] [facility] Comment on above: Performed By: #### R ENAL, URIC, MG #### [facility] [address] [place] [address] Dr. Shobha Ruffin PTH INTACTon 05-18-2022 PTH, Intact 29 pg/mL Normal 15-65 [facility] Comment on above: Performed By: #### R ENAL, URIC, MG #### [facility] [address] [place] [address] Dr. Shobha Ruffin FERRITINon 05-17-2022 Ferritin [Mass/Vol] 55.0 ng/mL Normal 8.0-252.[address] [facility] Comment on above: Performed By: #### R ENAL, URIC, MG #### [facility] [address] [place] [address] Dr. Shobha Ruffin HEMOGRAM AND PLATELon 2022 Hematocrit (Bld) [Volume fraction] 35.6 % Critically low 36.0-48.[address] [facility] Comment on above: Performed By: #### R ENAL, URIC, MG #### [facility] [address] [place] [address] Dr. Shobha Ruffin Hemoglobin (Bld) [Mass/Vol] 12.3 g/dL Normal 12.0-16.[address] [facility] Comment on above: Performed By: #### R ENAL, URIC, MG #### [facility] [address] [place] [address] Dr. Shobha Ruffin MCH (RBC) [Entitic mass] 29.6 pg Normal 26.7-34.0 [facility] Comment on above: Performed By: #### R ENAL, URIC, MG #### [facility] [address] [place] [address] Dr. Shobha Ruffin MCHC (RBC) [Mass/Vol] 34.6 g/dL Normal 29.9-35.2 [facility] Comment on above: Performed By: #### R ENAL, URIC, MG #### [facility] [address] [address] [address] Shobha Ruffin MCV (RBC) [Entitic vol] 85.8 fL Normal 81.0-99.0 [facility] Comment on above: Performed By: #### R ENAL, URIC, MG #### [facility] [address] [place] [address] Dr. Shobha Ruffin PLT 338 103/ul Normal 150-[address] [facility] Comment on above: Performed By: #### R ENAL, URIC, MG #### [facility] [address] [place] [address] Dr. Shobha Ruffin RBC 4.15 106/ul Critically low 4.20-5.40 [facility] Comment on above: Performed By: #### R ENAL, URIC, MG #### [facility] [address] [place] [address] Dr. Shobha Ruffin WBC 7.0 103/ul Normal 4.0-11.0 [facility] Comment on above: Performed By: #### R ENAL, URIC, MG #### [facility] [address] [place] [address] Dr. Shobha Ruffin IRON AND TIBCon 05-17-2022 % SATURATION 29.6 % Normal [facility] Comment on above: Performed By: #### R ENAL, URIC, MG #### [facility] [address] [place] [address] Dr. Shobha Ruffin Iron [Mass/Vol] 89.0 ug/dL Normal 50.0-170.0 [facility] Comment on above: Performed By: #### R ENAL, URIC, MG #### [facility] [address] [place] [address] Dr. Shobha Ruffin TIBC DIRECT 301.0 ug/dL Normal 250.0-450. 0 [facility] Comment on above: Performed By: #### R ENAL, URIC, MG #### [facility] [address] [place] [address] Dr. Shobha Ruffin MAGNESIUMon 05-17-2022 Magnesium [Mass/Vol] 2.2 mg/dL Normal 1.8-2.4 [facility] Comment on above: Performed By: #### R ENAL, URIC, MG #### [facility] [address] [place] [address] Dr. Shobha Ruffin RENAL FUNCTION PANELon 05-17 Albumin [Mass/Vol] 3.7 g/dL Normal 3.4-5.[address] [facility] Comment on above: Performed By: #### R ENAL, URIC, MG #### [facility] [address] [place] [address] Dr. Shobha Ruffin Calcium [Mass/Vol] 9.1 mg/dL Normal 8.5-10.[address] [facility] Comment on above: Performed By: #### R ENAL, URIC, MG #### [facility] [address] [place] [address] Dr. Shobha Ruffin Chloride [Moles/Vol] 100 mmol/L Normal 98-[address] [facility] Comment on above: Performed By: #### R ENAL, URIC, MG #### [facility] [address] [place] [address] Dr. Shobha Ruffin CO2 [Moles/Vol] 31.0 mmol/L Normal 21.0-32.[address] [facility] Comment on above: Performed By: #### R ENAL, URIC, MG #### [facility] [address] [place] [address] Dr. Shobha Ruffin Creatinine [Mass/Vol] 0.92 mg/dL Normal 0.55-1.[address] [facility] Comment on above: Performed By: #### R ENAL, URIC, MG #### [facility] [address] [place] [address] Dr. Shobha Ruffin EGFR-AF [place] >60 Normal >=60 [facility] Comment on above: Performed By: #### R ENAL, URIC, MG #### [facility] [address] [place] [address] Dr. Shobha Ruffin EGFR-NON AF [place] >60 Normal >=[address] [facility] Comment on above: Performed By: #### R ENAL, URIC, MG #### [facility] [address] [place] [address] Dr. Shobha Ruffin Glucose [Mass/Vol] 93 mg/dL Normal 74-106 [facility] Comment on above: Performed By: #### R ENAL, URIC, MG #### [facility] [address] [place] [address] Dr. Shobha Ruffin Phosphate [Mass/Vol] 3.7 mg/dL Normal 2.6-4.7 [facility] Comment on above: Performed By: #### R ENAL, URIC, MG #### [facility] [address] [place] [address] Dr. Shohba Ruffin Potassium [Moles/Vol] 3.9 mmol/L Normal 3.5-5.1 [facility] Comment on above: Performed By: #### R ENAL, URIC, MG #### [facility] [address] [place] [address] Dr. Shobha Ruffin Sodium [Moles/Vol] 138 mmol/L Normal 136-145 [facility] Comment on above: Performed By: #### R ENAL, URIC, MG #### [facility] [address] [place] [address] Dr. Shobha Ruffin Urea nitrogen [Mass/Vol] 19.0 mg/dL Critically high 7.0-18.0 [facility] Comment on above: Performed By: #### R ENAL, URIC, MG #### [facility] [address] [place] [address] Dr. Shobha Ruffin UA RANDOM W/MICROSCOPICon BACTERIA NONE SEEN Normal NONE SEEN [facility] Comment on above: Performed By: #### U AMIC #### [facility] [address] [place] [address] Dr. Shobha Ruffin Bilirubin Ql (U) Negative Normal NEGATIVE [facility] Comment on above: Performed By: #### U AMIC #### [facility] [address] [place] [address] Dr. Shobha Ruffin CAST NONE SEEN Normal NONE SEEN [facility] Comment on above: Performed By: #### U AMIC #### [facility] [address] [place] [address] Dr. Shobha Ruffin Clarity (U) SL CLOUDY Abnormal CLEAR [facility] Comment on above: Performed By: #### U AMIC #### [facility] [address] [address] [address] Shobha Ruffin Color (U) LT. YELLOW Normal YELLOW [facility] Comment on above: Performed By: #### U AMIC #### [facility] [address] [address] [address] Shobha Ruffin Crystals LM Nom (Urine sed) NONE SEEN Normal NONE SEEN [facility] Comment on above: Performed By: #### U AMIC #### [facility] [address] [address] [address] Shobha Ruffin Epithelial cells LM Ql (Urine sed) MODERATE Abnormal NONE SEEN /RARE [facility] Comment on above: Performed By: #### U AMIC #### [facility] [address] [place] [address] Dr. Shobha Ruffin Glucose Ql (U) Negative Normal NEGATIVE [facility] Comment on above: Performed By: #### U AMIC #### [facility] [address] [address] [address] Shobha Ruffin Hemoglobin Ql (U) Negative Normal NEGATIVE [facility] Comment on above: Performed By: #### U AMIC #### [facility] [address] [place] [address] Dr. Shobha Ruffin Ketones Ql (U) Negative Normal NEGATIVE [facility] Comment on above: Performed By: #### U AMIC #### [facility] [address] [address] [address] Shobha Ruffin LEUKOCYTES TRACE Abnormal NEGATIVE [facility] Comment on above: Performed By: #### U AMIC #### [facility] [address] [address] [address] Shobha Ruffin MUCOUS NONE SEEN Normal NONE SEEN [facility] Comment on above: Performed By: #### U AMIC #### [facility] [address] [place] [address] Dr. Shobha Ruffin Nitrite Ql (U) Negative Normal NEGATIVE [facility] Comment on above: Performed By: #### U AMIC #### [facility] [address] [place] [address] Dr. Shobha Ruffin pH (U) 7.5 [pH] Normal 5-9 [facility] Comment on above: Performed By: #### U AMIC #### [facility] [address] [place] [address] Dr. Shobha Ruffin RBC NONE SEEN Abnormal 0-2 [facility] Comment on above: Performed By: #### U AMIC #### [facility] [address] [place] [address] Dr. Shobha Ruffin SPEC GRAVITY 1.015 Normal 1.005-<=1. 025 [facility] Comment on above: Performed By: #### U AMIC #### [facility] [address] [place] [address] Dr. Shobha Ruffin UA PROTEIN Negative Normal NEGATIVE/ TRACE [facility] Comment on above: Performed By: #### U AMIC #### [facility] [address] [place] [address] Dr. Shobha Ruffin Urobilinogen Qn (U) 0.2 {Raul'U}/dL Normal 0.2 - 1. 0 [facility] Comment on above: Performed By: #### U AMIC #### [facility] [address] [place] [address] Dr. Shobha Ruffin WBC 0-2 Abnormal NONE SEEN [facility] Comment on above: Performed By: #### U AMIC #### [facility] [address] [place] [address] Dr. Shobha Ruffin URINE T PROTEIN CREAT RATIOo n 05-17-2022 Protein (U) [Mass/Vol] 20.5 mg/dL Critically high <=12.0 [facility] Comment on above: Performed By: #### O BSCRN #### [facility] [address] [place] [address] Dr. Shobha Ruffin UR PROT CREAT RAT 0.21 Normal [facility] Comment on above: Performed By: #### O BSCRN #### [facility] [address] [place] [address] Dr. Shobha Ruffin URINE CREAT 98.95 mg/dL Normal 20.00-300. [address] [facility] Comment on above: Performed By: #### O BSCRN #### [facility] [address] [place] [address] Dr. Shobha Ruffin VITAMIN D 25 OHon 05-17-2022 VIT D 25-OH 29.5 ng/mL Normal [facility] Comment on above: Performed By: #### R KATIANA BROWN, MG #### [facility] [address] [place] [address] Dr. Shobha Ruffin VIT D RANGES SEE BELOW Normal [facility] Comment on above: Result Comment: <20 ng/mL Vit D deficient 20 - <30 ng/mL Vit D insufficient 30 - 100 ng/mL Vit D sufficient >100 ng/mL Potential Toxicity Performed By: #### R KEVIN URIC, MG #### [facility] [address] [place] [address] Dr. Shobha Ruffin CBC AUTO DIFFon 05-04-2022 BASO # 0.1 103/ul Normal 0.0-0.[address] [facility] Comment on above: Performed By: #### O BSCRN #### [facility] [address] [place] [address] Dr. Shobha Ruffin Basophils/100 WBC (Bld) 1.0 % Normal 0.2-2.[address] [facility] Comment on above: Performed By: #### O BSCRN #### [facility] [address] [place] [address] Dr. Shobha Ruffin EO # 0.2 103/ul Normal 0.0-0.[address] [facility] Comment on above: Performed By: #### O BSCRN #### [facility] [address] [place] [address] Dr. Shobha Ruffin Eosinophils/100 WBC (Bld) 2.5 % Normal 0.9-7.[address] [facility] Comment on above: Performed By: #### O BSCRN #### [facility] [address] [place] [address] Dr. Shobha Ruffin Erythrocyte distribution width (RBC) [Ratio] 13.3 % Normal 11.0-15.[address] [facility] Comment on above: Performed By: #### O BSCRN #### [facility] [address] [place] [address] Dr. Shobha Ruffin Hematocrit (Bld) [Volume fraction] 39.7 % Normal 36.0-48.[address] [facility] Comment on above: Performed By: #### O BSCRN #### [facility] [address] [place] [address] Dr. Shobha Ruffin Hemoglobin (Bld) [Mass/Vol] 12.9 g/dL Normal 12.0-16.[address] [facility] Comment on above: Performed By: #### O BSCRN #### [facility] [address] [place] [address] Dr. Shobha Ruffin IG # 0.02 10e3/ul Normal 0.00-0.[address] [facility] Comment on above: Performed By: #### O BSCRN #### [facility] [address] [place] [address] Dr. Shobha Ruffin IG % 0.3 % Normal 0.0-0.[address] [facility] Comment on above: Performed By: #### O BSCRN #### [facility] [address] [place] [address] Dr. Shobha Ruffin LYMPH # 1.7 103/ul Normal 1.2-3.[address] [facility] Comment on above: Performed By: #### O BSCRN #### [facility] [address] [place] [address] Dr. Shobha Ruffin Lymphocytes/100 WBC (Bld) 22.2 % Normal 20.5-60.[address] [facility] Comment on above: Performed By: #### O BSCRN #### [facility] [address] [place] [address] Dr. Shobha Ruffin MANUAL DIFF REQ NO Normal [facility] Comment on above: Performed By: #### O BSCRN #### [facility] [address] [place] [address] Dr. Shobha Ruffin MCH (RBC) [Entitic mass] 29.3 pg Normal 26.7-34.[address] [facility] Comment on above: Performed By: #### O BSCRN #### [facility] [address] [place] [address] Dr. Shobha Ruffin MCHC (RBC) [Mass/Vol] 32.5 g/dL Normal 29.9-35.[address] [facility] Comment on above: Performed By: #### O BSCRN #### [facility] [address] [place] [address] Dr. Shobha Ruffin MCV (RBC) [Entitic vol] 90.2 fL Normal 81.0-99.0 [facility] Comment on above: Performed By: #### O BSCRN #### [facility] [address] [place] [address] Dr. Shobha Ruffin MONO # 0.8 103/ul Normal 0.3-0.[address] [facility] Comment on above: Performed By: #### O BSCRN #### [facility] [address] [place] [address] Dr. Shobha Ruffin Monocytes/100 WBC (Bld) 10.5 % Normal 1.7-12.[address] [facility] Comment on above: Performed By: #### O BSCRN #### [facility] [address] [place] [address] Dr. Shobha Ruffin NEUT # 4.9 103/ul Normal 1.4-6.[address] [facility] Comment on above: Performed By: #### O BSCRN #### [facility] [address] [place] [address] Dr. Shobha Ruffin Neutrophils/100 WBC (Bld) 63.5 % Normal 43.0-75.0 [facility] Comment on above: Performed By: #### O BSCRN #### [facility] [address] [place] [address] Dr. Shobha Ruffin Platelet mean volume (Bld) [Entitic vol] 8.8 fL Critically low 9.5-13.[address] [facility] Comment on above: Performed By: #### O BSCRN #### [facility] [address] [address] [address] Shobha Ruffin PLT 307 103/ul Normal 150-450 [facility] Comment on above: Performed By: #### O BSCRN #### [facility] [address] [address] [address] Shobha Ruffin RBC 4.40 106/ul Normal 4.20-5.[address] [facility] Comment on above: Performed By: #### O BSCRN #### [facility] [address] [address] [address] Shobha Ruffni WBC 7.8 103/ul Normal 4.0-11.[address] [facility] Comment on above: Performed By: #### O BSCRN #### [facility] [address] [place] [address] Dr. Shobha Ruffin LIPID PROFILEon 05-04-2022 CHOL-HDL RATIO NORM SEE BELOW Normal [facility] Comment on above: Result Comment: 3.3 - 4.4 LOW RISK 4.4 - 7.1 AVERAGE RISK 7.1 - 11.0 MODERATE RISK >11.0 HIGH RISK Performed By: #### L IPID, LIVER #### [facility] [address] [place] [address] Dr. Shobha Ruffin Cholesterol [Mass/Vol] 296 mg/dL Critically high <=[address] [facility] Comment on above: Performed By: #### L IPID, LIVER #### [facility] [address] [place] [address] Dr. Shobha Ruffin Cholesterol in HDL [Mass/Vol] 102 mg/dL Critically high 40-60 [facility] Comment on above: Performed By: #### L IPID, LIVER #### [facility] [address] [place] [address] Dr. Shobha Ruffin Cholesterol in LDL [Mass/Vol] 178.6 mg/dL Normal [facility] Comment on above: Performed By: #### L IPID, LIVER #### [facility] [address] [place] [address] Dr. Shobha Ruffin Cholesterol.total/Cho lesterol in HDL [Mass ratio] 2.9 {ratio} Normal [facility] Comment on above: Performed By: #### L IPID, LIVER #### [facility] [address] [address] [address] Shobha Ruffin HDL NORMAL > or = 60 mg/dl - LO W CARDIOVASCULAR RISK <40 mg/dl - HIGH CARDIOVASCULAR RISK Normal [facility] Comment on above: Performed By: #### L IPID, LIVER #### [facility] [address] [address] [address] Shobha Ruffin LDL CALC NORMAL SEE BELOW Normal [facility] Comment on above: Result Comment: <100 mg/dl OPTIMAL 100 - 129 mg/dl NEAR OR ABOVE OPTIMAL 130 - 159 mg/dl BORDERLINE HIGH 160 - 189 mg/dl HIGH >190 mg/dl VERY HIGH Performed By: #### L IPID, LIVER #### [facility] [address] [place] [address] Dr. Shobha Ruffin Triglyceride [Mass/Vol] 77 mg/dL Normal <=[address] [facility] Comment on above: Performed By: #### L IPID, LIVER #### [facility] [address] [place] [address] Dr. Shobha Ruffin VLDL CALC 15.4 mg/dL Normal [facility] Comment on above: Performed By: #### L IPID, LIVER #### [facility] [address] [place] [address] Dr. Shobha Rufifn LIVER PROFILEon 05-04-2022 Albumin [Mass/Vol] 3.6 g/dL Normal 3.4-5.[address] [facility] Comment on above: Performed By: #### L IPID, LIVER #### [facility] [address] [place] [address] Dr. Shobha Ruffin Albumin/Globulin [Mass ratio] 1.0 {ratio} Normal [facility] Comment on above: Performed By: #### L IPID, LIVER #### [facility] [address] [place] [address] Dr. Shobha Ruffin ALP [Catalytic activity/Vol] 58 U/L Normal 46-[address] [facility] Comment on above: Performed By: #### L IPID, LIVER #### [facility] [address] [place], [place] [id number] Dr. Shobha Ruffin ALT [Catalytic activity/Vol] 20 U/L Normal 14-59 [facility] Comment on above: Performed By: #### L IPID, LIVER #### [facility] [address] [place] [address] Dr. Shobha Ruffin AST [Catalytic activity/Vol] 16 U/L Normal 15-37 [facility] Comment on above: Performed By: #### L IPID, LIVER #### [facility] [address] [place] [address] Dr. Shobha Ruffin BILI, CONJUGATED 0.1 mg/dL Normal 0.0-0.[address] [facility] Comment on above: Performed By: #### L IPID, LIVER #### [facility] [address] [place] [address] Dr. Shobha Ruffin Bilirubin [Mass/Vol] 0.7 mg/dL Normal 0.2-1.[address] [facility] Comment on above: Performed By: #### L IPID, LIVER #### [facility] [address] [place] [address] Dr. Shobha Ruffin Globulin (S) [Mass/Vol] 3.5 g/dL Normal [facility] Comment on above: Performed By: #### L IPID, LIVER #### [facility] [address] [place] [address] Dr. Shobha Ruffin Protein [Mass/Vol] 7.1 g/dL Normal 6.4-8.2 [facility] Comment on above: Performed By: #### L IPID, LIVER #### [facility] [address] [place] [address] Dr. Shobha Ruffin CALCIUMon 02-08-2022 Calcium [Mass/Vol] 9.1 mg/dL Normal 8.5-10.1 [facility] Comment on above: Performed By: #### R ENAL, URIC, MG #### [facility] [address] [place] [address] Dr. Shobha Ruffin CREATININEon 02-08-2022 Creatinine [Mass/Vol] 0.95 mg/dL Normal 0.55-1.02 [facility] Comment on above: Performed By: #### O BSCRN #### [facility] [address] [address] [address] Shobha Ruffin EGFR-AF [place] >60 Normal >=[address] [facility] Comment on above: Performed By: #### O BSCRN #### [facility] [address] [place] [address] Dr. Shobha Ruffin EGFR-NON AF [place] 58 mL/min/1.73m2 Critically low >=[address] [facility] Comment on above: Performed By: #### O BSCRN #### [facility] [address] [place] [address] Dr. Shobha Ruffin OCC BLD IMMUNO SCREENon 01-08 OCCULT BLOOD Negative Normal NEGATIVE [facility] Comment on above: Performed By: #### O BSCRN #### [facility] [address] [place] [address] Dr. Shobha Ruffin T4, T3U, FTI LABCORPon 01-27 Free Thyroxine Index 2.2 Normal 1.2-4.[address] [facility] Comment on above: Performed By: #### R ENAL, URIC, MG #### [facility] Laboratory [address] [place] [address] Dr. Shobha Ruffin T3 Uptake 27 % Normal 24-[address] [facility] Comment on above: Performed By: #### R ENAL, URIC, MG #### [facility] [address] [address] [address] Shobha Ruffin T4 [Mass/Vol] 8.0 ug/dL Normal 4.5-12.[address] [facility] Comment on above: Performed By: #### R ENAL, URIC, MG #### [facility] [address] [place] [address] Dr. Shobha Ruffin CBC AUTO DIFFon 01-26-2022 BASO # 0.1 103/ul Normal 0.0-0.[address] [facility] Comment on above: Performed By: #### R ENAL, URIC, MG #### [facility] [address] [place] [address] Dr. Shobha Ruffin Basophils/100 WBC (Bld) 0.9 % Normal 0.2-2.0 [facility] Comment on above: Performed By: #### R ENAL, URIC, MG #### [facility] [address] [place] [address] Dr. Shobha Ruffin EO # 0.3 103/ul Normal 0.0-0.7 [facility] Comment on above: Performed By: #### R ENAL, URIC, MG #### [facility] [address] [place] [address] Dr. Shobha Ruffin Eosinophils/100 WBC (Bld) 2.8 % Normal 0.9-7.0 [facility] Comment on above: Performed By: #### R ENAL, URIC, MG #### [facility] [address] [place] [address] Dr. Shobha Ruffin Erythrocyte distribution width (RBC) [Ratio] 13.6 % Normal 11.0-15.[address] [facility] Comment on above: Performed By: #### R ENAL, URIC, MG #### [facility] [address] [place] [address] Dr. Shobha Ruffin Hematocrit (Bld) [Volume fraction] 35.4 % Critically low 36.0-48.[address] [facility] Comment on above: Performed By: #### R ENAL, URIC, MG #### [facility] [address] [place] [address] Dr. Shobha Ruffin Hemoglobin (Bld) [Mass/Vol] 11.5 g/dL Critically low 12.0-16.[address] [facility] Comment on above: Performed By: #### R ENAL, URIC, MG #### [facility] [address] [place] [address] Dr. Shobha Ruffin IG # 0.04 10e3/ul Critically high 0.00-0.[address] [facility] Comment on above: Performed By: #### R ENAL, URIC, MG #### [facility] [address] [place] [address] Dr. Shobha Ruffin IG % 0.4 % Normal 0.0-0.[address] [facility] Comment on above: Performed By: #### R ENAL, URIC, MG #### [facility] [address] [place] [address] Dr. Shobha Ruffin LYMPH # 1.9 103/ul Normal 1.2-3.[address] [facility] Comment on above: Performed By: #### R ENAL, URIC, MG #### [facility] [address] [place] [address] Dr. Shobha Ruffin Lymphocytes/100 WBC (Bld) 20.9 % Normal 20.5-60.[address] [facility] Comment on above: Performed By: #### R ENAL, URIC, MG #### [facility] [address] [place] [address] Dr. Shobha Ruffin MANUAL DIFF REQ NO Normal [facility] Comment on above: Performed By: #### R ENAL, URIC, MG #### [facility] [address] [place] [address] Dr. Shobha Ruffin MCH (RBC) [Entitic mass] 29.4 pg Normal 26.7-34.[address] [facility] Comment on above: Performed By: #### R ENAL, URIC, MG #### [facility] [address] [place] [address] Dr. Shobha Ruffin MCHC (RBC) [Mass/Vol] 32.5 g/dL Normal 29.9-35.[address] [facility] Comment on above: Performed By: #### R ENAL, URIC, MG #### [facility] [address] [place] [address] Dr. Shobha Ruffin MCV (RBC) [Entitic vol] 90.5 fL Normal 81.0-99.[address] [facility] Comment on above: Performed By: #### R ENAL, URIC, MG #### [facility] [address] [place] [address] Dr. Shobha Ruffin MONO # 0.8 103/ul Normal 0.3-0.[address] [facility] Comment on above: Performed By: #### R ENAL, URIC, MG #### [facility] [address] [place] [address] Dr. Shobha Ruffin Monocytes/100 WBC (Bld) 9.2 % Normal 1.7-12.0 [facility] Comment on above: Performed By: #### R ENAL URIC, MG #### [facility] [address] [address] [address] Shobha Ruffin NEUT # 5.9 103/ul Normal 1.4-6.[address] [facility] Comment on above: Performed By: #### R ENAL URIC, MG #### [facility] [address] [address] [address] Shobha Ruffin Neutrophils/100 WBC (Bld) 65.8 % Normal 43.0-75.0 [facility] Comment on above: Performed By: #### R ENAL URIC, MG #### [facility] [address] [place] [address] Dr. Shobha Ruffin Platelet mean volume (Bld) [Entitic vol] 8.9 fL Critically low 9.5-13.[address] [facility] Comment on above: Performed By: #### R ENAL, URIC, MG #### [facility] [address] [place] [address] Dr. Shobha Ruffin PLT 346 103/ul Normal 150-450 [facility] Comment on above: Performed By: #### R ENAL URIC, MG #### [facility] [address] [place] [address] Dr. Shobha Ruffin RBC 3.91 106/ul Critically low 4.20-5.40 [facility] Comment on above: Performed By: #### R ENAL, URIC, MG #### [facility] [address] [place] [address] Dr. Shobha Ruffin WBC 8.9 103/ul Normal 4.0-11.0 [facility] Comment on above: Performed By: #### R ENAL, URIC, MG #### [facility] [address] [place] [address] Dr. Shobha Ruffin GLYCOHEMOGLOBIN A1Con 2021 ADA RECOMMENDATION SEE BELOW Normal [facility] Comment on above: Result Comment: ADA RECOMMENDED LIMIT 4.0 - 6.0 ADA THERAPEUTIC TARGET < 7.0 ACTION SUGGESTED > 7.0 Performed By: #### O BSCRN #### [facility] [address] [address] [address] Shobha Ruffin Glucose [Mass/Vol] 123 mg/dL Normal [facility] Comment on above: Performed By: #### O BSCRN #### [facility] [address] [place] [address] Dr. Shobha Ruffin HbA1c (Bld) [Mass fraction] 5.9 % Normal 4.5-6.[address] [facility] Comment on above: Performed By: #### O BSCRN #### [facility] [address] [address] [address] Shobha Ruffin IRONon 01-26-2022 Iron [Mass/Vol] 97.0 ug/dL Normal 50.0-170.[address] [facility] Comment on above: Performed By: #### R ENAL, URIC, MG #### [facility] [address] [place] [address] Dr. Shobha Ruffin LIPID PROFILEon 01-26-2022 CHOL-HDL RATIO NORM SEE BELOW Normal [facility] Comment on above: Result Comment: 3.3 - 4.4 LOW RISK 4.4 - 7.1 AVERAGE RISK 7.1 - 11.0 MODERATE RISK >11.0 HIGH RISK Performed By: #### R ENAL, URIC, MG #### [facility] [address] [place] [address] Dr. Shobha Ruffin Cholesterol [Mass/Vol] 284 mg/dL Critically high <=200 [facility] Comment on above: Performed By: #### R ENAL, URIC, MG #### [facility] [address] [place] [address] Dr. Shobha Ruffin Cholesterol in HDL [Mass/Vol] 84 mg/dL Critically high 40-60 [facility] Comment on above: Performed By: #### R ENAL, URIC, MG #### [facility] [address] [place] [address] Dr. Shobha Ruffin Cholesterol in LDL [Mass/Vol] 184.6 mg/dL Normal [facility] Comment on above: Performed By: #### R ENAL, URIC, MG #### [facility] [address] [address] [address] Shobha Ruffin Cholesterol.total/Cho lesterol in HDL [Mass ratio] 3.4 {ratio} Normal [facility] Comment on above: Performed By: #### R ENAL, URIC, MG #### [facility] [address] [address] [address] Shobha Ruffin HDL NORMAL > or = 60 mg/dl - LO W CARDIOVASCULAR RISK <40 mg/dl - HIGH CARDIOVASCULAR RISK Normal [facility] Comment on above: Performed By: #### R ENAL, URIC, MG #### [facility] [address] [place] [address] Dr. Shobha Ruffin LDL CALC NORMAL SEE BELOW Normal [facility] Comment on above: Result Comment: <100 mg/dl OPTIMAL 100 - 129 mg/dl NEAR OR ABOVE OPTIMAL 130 - 159 mg/dl BORDERLINE HIGH 160 - 189 mg/dl HIGH >190 mg/dl VERY HIGH Performed By: #### R ENAL, URIC, MG #### [facility] [address] [address] [address] Shobha Ruffin Triglyceride [Mass/Vol] 77 mg/dL Normal <=[address] [facility] Comment on above: Performed By: #### R ENAL, URIC, MG #### [facility] [address] [place] [address] Dr. Shobha Ruffin VLDL CALC 15.4 mg/dL Normal [facility] Comment on above: Performed By: #### R ENAL, URIC, MG #### [facility] [address] [place] [address] Dr. Shobha Ruffin PROF 14(COMP METB)on 022 Albumin [Mass/Vol] 3.5 g/dL Normal 3.4-5.[address] [facility] Comment on above: Performed By: #### R ENAL, URIC, MG #### [facility] [address] [place] [address] Dr. Shobha Ruffin Albumin/Globulin [Mass ratio] 1.1 {ratio} Normal [facility] Comment on above: Performed By: #### R ENAL, URIC, MG #### [facility] [address] [address] [address] Shobha Ruffin ALP [Catalytic activity/Vol] 79 U/L Normal 46-[address] [facility] Comment on above: Performed By: #### R ENAL, URIC, MG #### [facility] [address] [address] [address] Shobha Ruffin ALT [Catalytic activity/Vol] 28 U/L Normal 14-59 [facility] Comment on above: Performed By: #### R ENAL, URIC, MG #### [facility] [address] [address] [address] Shobha Ruffin Anion gap [Moles/Vol] 9.3 mmol/L Normal [facility] Comment on above: Performed By: #### R ENAL, URIC, MG #### [facility] [address] [place] [address] Dr. Shobha Ruffin AST [Catalytic activity/Vol] 12 U/L Critically low 15-[address] [facility] Comment on above: Performed By: #### R ENAL, URIC, MG #### [facility] [address] [address] [address] Shobha Ruffin Bilirubin [Mass/Vol] 0.6 mg/dL Normal 0.2-1.[address] [facility] Comment on above: Performed By: #### R ENAL, URIC, MG #### [facility] [address] [address] [address] Shobha Ruffin Calcium [Mass/Vol] 9.0 mg/dL Normal 8.5-10.1 [facility] Comment on above: Performed By: #### R ENAL, URIC, MG #### [facility] [address] [address] [address] Shobha Ruffin Chloride [Moles/Vol] 103 mmol/L Normal 98-107 [facility] Comment on above: Performed By: #### R ENAL, URIC, MG #### [facility] [address] [address] [address] Shobha Ruffin CO2 [Moles/Vol] 28.9 mmol/L Normal 21.0-32.[address] [facility] Comment on above: Performed By: #### R ENAL, URIC, MG #### [facility] [address] [place] [address] Dr. Shobha Ruffin Creatinine [Mass/Vol] 1.02 mg/dL Normal 0.55-1.[address] [facility] Comment on above: Performed By: #### R ENAL, URIC, MG #### [facility] [address] [place] [address] Dr. Shobha Ruffin EGFR-AF [place] >60 Normal >=[address] [facility] Comment on above: Performed By: #### R ENAL, URIC, MG #### [facility] [address] [place] [address] Dr. Shobha Ruffin EGFR-NON AF [place] 54 mL/min/1.73m2 Critically low >=[address] [facility] Comment on above: Performed By: #### R ENAL, URIC, MG #### [facility] [address] [place] [address] Dr. Shobha Ruffin Globulin (S) [Mass/Vol] 3.3 g/dL Normal [facility] Comment on above: Performed By: #### R ENAL, URIC, MG #### [facility] [address] [place] [address] Dr. Shobha Ruffin Glucose [Mass/Vol] 100 mg/dL Normal 74-[address] [facility] Comment on above: Performed By: #### R ENAL, URIC, MG #### [facility] [address] [place] [address] Dr. Shobha Ruffin Potassium [Moles/Vol] 4.2 mmol/L Normal 3.5-5.1 [facility] Comment on above: Performed By: #### R ENAL, URIC, MG #### [facility] [address] [place] [address] Dr. Shobha Ruffin Protein [Mass/Vol] 6.8 g/dL Normal 6.4-8.2 [facility] Comment on above: Performed By: #### R ENAL, URIC, MG #### [facility] [address] [place] [address] Dr. Shobha Ruffin Sodium [Moles/Vol] 137 mmol/L Normal 136-145 [facility] Comment on above: Performed By: #### R ENAL, URIC, MG #### [facility] [address] [address] [address] Shobha Ruffin Urea nitrogen [Mass/Vol] 20.0 mg/dL Critically high 7.0-18.[address] [facility] Comment on above: Performed By: #### R ENAL, URIC, MG #### [facility] [address] [address] [address] Shobha Ruffin Urea nitrogen/Creatinine [Mass ratio] 19.6 mg/mg Normal [facility] Comment on above: Performed By: #### R ENAL, URIC, MG #### [facility] [address] [address] [address] Shobha Ruffin TSHon 01-26-2022 TSH 0.649 uIU/mL Normal 0.358-3.[address] [facility] Comment on above: Performed By: #### R ENAL, URIC, MG #### [facility] [address] [address] [address] Shobha Ruffin XR LSPINE MIN 4 VIEWSon 01-08 XR LSPINE MIN 4 VIEWS EXAMINATION: XR LS PINE MIN 4 VIEWS HISTORY: Lumbar radiculopathy , [...] ROSA BELLO Date: 2022-01-26 10:35 Normal [facility]on SARS-CoV-2 (COVID-19) RNA CONRADO+probe Ql (Unsp spec) Detected Critically abnormal NOT DETECTED [facility] Comment on above: Result Comment: This test is not yet approved or cleared by the [place] FDA. When there are no FDA-approved or cleared tests available, and other criteria are met, FDA can make tests available under an emergency access mechanism called an Emergency Use Authorization (EUA). The EUA for this test is supported by the [employer] of Health and Human Service's (HHS's) declaration [...] longer be used). Performed By: #### C [facility] #### [facility] [address] [place] [address] Dr. Shobha Jaramillo 12-23-2021 CNOV Office Visit ([id number] ) MARY GOODE ([id number]) 1950 F Date Time Provider Department 12/23/21 10:00 AM FREDA POP [id number] During your visit today, we recorded the following information about you: Temperature Pulse Blood pressure Weight 97.2 degrees 58/minute 147/55 73.9 kg Height 1.6 m Freda Pop APRN.DIRECTOR CASE 12/23/2021 10:45 AM Signed GENERAL SURGERY CLINIC FOLLOW UP NOTE Clinic Date: 12/23/2021 Mary Goode, 71 year old [address] [facility] [id number] CHIEF COMPLAINT: Patient presents with: Post Op [...] May with upper GI study Freda Pop APRN.DIRECTOR CASE General Surgery Digestive Disease [place] December 22, 2021 Joan Grimaldo MA 12/23/2021 [...] activity as tolerated Referring Provider: ATIF MENDEZ [[id number]] Allergies As of Date: 12/23/2021 (No Known Allergies) Date Reviewed: 12/23/2021 Reviewed by: Freda Pop APRN.CNP - Fully Assessed Reason for Visit: (more content not included)... [facility]-27-2021 PTH, Intact 36 pg/mL Normal 15-[address] [facility] Comment on above: Performed By: #### P THINT #### [facility] [address] [place] [address] Dr. Shobha Ruffin FERRITINon 11-26-2021 Ferritin [Mass/Vol] 122.0 ng/mL Normal 8.0-252.0 [facility] Comment on above: Performed By: #### O BSCRN #### [facility] [address] [place] [address] Dr. Shobha Ruffin HEMOGRAM AND PLATELon 2021 Hematocrit (Bld) [Volume fraction] 36.0 % Normal 36.0-48.[address] [facility] Comment on above: Performed By: #### H H #### [facility] [address] [place] [address] Dr. Shobha Ruffin Hemoglobin (Bld) [Mass/Vol] 11.8 g/dL Critically low 12.0-16.[address] [facility] Comment on above: Performed By: #### H H #### [facility] [address] [place] [address] Dr. Shobha Ruffin MCH (RBC) [Entitic mass] 29.7 pg Normal 26.7-34.[address] [facility] Comment on above: Performed By: #### H H #### [facility] [address] [place] [address] Dr. Shobha Ruffin MCHC (RBC) [Mass/Vol] 32.8 g/dL Normal 29.9-35.2 [facility] Comment on above: Performed By: #### H H #### [facility] [address] [place] [address] Dr. Shobha Ruffin MCV (RBC) [Entitic vol] 90.7 fL Normal 81.0-99.[address] [facility] Comment on above: Performed By: #### H H #### [facility] [address] [place] [address] Dr. Shobha Ruffin PLT 417 103/ul Normal 150-450 [facility] Comment on above: Performed By: #### H H #### [facility] [address] [address] [address] Shobha Ruffin RBC 3.97 106/ul Critically low 4.20-5.[address] [facility] Comment on above: Performed By: #### H H #### [facility] [address] [place] [address] Dr. Shobha Ruffin WBC 7.9 103/ul Normal 4.0-11.0 [facility] Comment on above: Performed By: #### H H #### [facility] [address] [place] [address] Dr. Shobha Ruffin IRON AND TIBCon 11-26-2021 % SATURATION 28.2 % Normal [facility] Comment on above: Performed By: #### O BSCRN #### [facility] [address] [place] [address] Dr. Shobha Ruffin Iron [Mass/Vol] 83.0 ug/dL Normal 50.0-170.0 [facility] Comment on above: Performed By: #### O BSCRN #### [facility] [address] [place] [address] Dr. Shobha Ruffin TIBC DIRECT 294.0 ug/dL Normal 250.0-450. [address] [facility] Comment on above: Performed By: #### O BSCRN #### [facility] [address] [place] [address] Dr. Shobha Ruffin MAGNESIUMon 11-26-2021 Magnesium [Mass/Vol] 1.8 mg/dL Normal 1.8-2.4 [facility] Comment on above: Performed By: #### R ENAL, URIC, MG #### [facility] [address] [place] [address] Dr. Shobha Ruffin RENAL FUNCTION PANELon 11-26 Albumin [Mass/Vol] 3.6 g/dL Normal 3.4-5.[address] [facility] Comment on above: Performed By: #### R ENAL, URIC, MG #### [facility] [address] [place] [address] Dr. Shobha Ruffin Calcium [Mass/Vol] 9.3 mg/dL Normal 8.5-10.1 [facility] Comment on above: Performed By: #### R ENAL, URIC, MG #### [facility] [address] [address] [address] Shobha Ruffin Chloride [Moles/Vol] 99 mmol/L Normal 98-107 [facility] Comment on above: Performed By: #### R ENAL, URIC, MG #### [facility] [address] [address] [address] Shobha Ruffin CO2 [Moles/Vol] 28.6 mmol/L Normal 21.0-32.0 [facility] Comment on above: Performed By: #### R ENAL, URIC, MG #### [facility] [address] [place] [address] Dr. Shobha Ruffin Creatinine [Mass/Vol] 1.18 mg/dL Critically high 0.55-1.[address] [facility] Comment on above: Performed By: #### R ENAL, URIC, MG #### [facility] [address] [place] [address] Dr. Shobha Ruffin EGFR-AF [place] 55 mL/min/1.73m2 Critically low >=60 [facility] Comment on above: Performed By: #### R ENAL, URIC, MG #### [facility] [address] [place] [address] Dr. Shobha Ruffin EGFR-NON AF [place] 45 mL/min/1.73m2 Critically low >=60 [facility] Comment on above: Performed By: #### R ENAL, URIC, MG #### [facility] [address] [place] [address] Dr. Shobha Ruffin Glucose [Mass/Vol] 90 mg/dL Normal 74-106 [facility] Comment on above: Performed By: #### R ENAL, URIC, MG #### [facility] [address] [place] [address] Dr. Shobha Ruffin Phosphate [Mass/Vol] 4.8 mg/dL Critically high 2.6-4.7 [facility] Comment on above: Performed By: #### R ENAL, URIC, MG #### [facility] [address] [address] [address] Shobha Ruffin Potassium [Moles/Vol] 4.1 mmol/L Normal 3.5-5.1 [facility] Comment on above: Performed By: #### R ENAL, URIC, MG #### [facility] [address] [place] [address] Dr. Shobha Ruffin Sodium [Moles/Vol] 136 mmol/L Normal 136-145 [facility] Comment on above: Performed By: #### R ENAL, URIC, MG #### [facility] [address] [place] [address] Dr. Shobha Ruffin Urea nitrogen [Mass/Vol] 20.0 mg/dL Critically high 7.0-18.[address] [facility] Comment on above: Performed By: #### R ENAL, URIC, MG #### [facility] [address] [place] [address] Dr. Shobha Ruffin UA RANDOM W/MICROSCOPICon BACTERIA TRACE Abnormal NONE SEEN [facility] Comment on above: Performed By: #### R ENAL, URIC, MG #### [facility] [address] [place] [address] Dr. Shobha Ruffin Bilirubin Ql (U) Negative Normal NEGATIVE [facility] Comment on above: Performed By: #### R ENAL, URIC, MG #### [facility] [address] [place] [address] Dr. Shobha Ruffin CAST SEEN Abnormal NONE SEEN [facility] Comment on above: Performed By: #### R ENAL, URIC, MG #### [facility] [address] [place] [address] Dr. Shobha Ruffin Clarity (U) CLEAR Normal CLEAR [facility] Comment on above: Performed By: #### R ENAL, URIC, MG #### [facility] [address] [place] [address] Dr. Shobha Ruffin Color (U) YELLOW Normal YELLOW [facility] Comment on above: Performed By: #### R ENAL, URIC, MG #### [facility] [address] [address] [address] Shobha Ruffin Crystals LM Nom (Urine sed) NONE SEEN Normal NONE SEEN [facility] Comment on above: Performed By: #### R ENAL, URIC, MG #### [facility] [address] [place] [address] Dr. Shobha Ruffin Epithelial cells LM Ql (Urine sed) FEW Abnormal NONE SEEN /RARE [facility] Comment on above: Performed By: #### R ENAL, URIC, MG #### [facility] [address] [place] [address] Dr. Shobha Ruffin Glucose Ql (U) Negative Normal NEGATIVE [facility] Comment on above: Performed By: #### R ENAL, URIC, MG #### [facility] [address] [place] [address] Dr. Shobha Ruffin Hemoglobin Ql (U) Negative Normal NEGATIVE [facility] Comment on above: Performed By: #### R ENAL, URIC, MG #### [facility] [address] [address] [address] Shobha Ruffin HYALINE CAST RARE Normal [facility] Comment on above: Performed By: #### R ENAL, URIC, MG #### [facility] [address] [address] [address] Shobha Ruffin Ketones Ql (U) TRACE Abnormal NEGATIVE [facility] Comment on above: Performed By: #### R ENAL, URIC, MG #### [facility] [address] [place] [address] Dr. Shobha Ruffin LEUKOCYTES TRACE Abnormal NEGATIVE [facility] Comment on above: Performed By: #### R ENAL, URIC, MG #### [facility] [address] [address] [address] Shobha Ruffin MUCOUS TRACE Abnormal NONE SEEN [facility] Comment on above: Performed By: #### R ENAL, URIC, MG #### [facility] [address] [place] [address] Dr. Shobha Ruffin Nitrite Ql (U) Negative Normal NEGATIVE [facility] Comment on above: Performed By: #### R ENAL, URIC, MG #### [facility] [address] [place] [address] Dr. Shobha Ruffin pH (U) 7.0 [pH] Normal 5-9 [facility] Comment on above: Performed By: #### R ENAL, URIC, MG #### [facility] [address] [place] [address] Dr. Shobha Ruffin RBC 0-2 Normal 0-2 [facility] Comment on above: Performed By: #### R ENAL, URIC, MG #### [facility] [address] [place] [address] Dr. Shobha Ruffin SPEC GRAVITY 1.015 Normal 1.005-<=1. [address] [facility] Comment on above: Performed By: #### R ENAL, URIC, MG #### [facility] [address] [place] [address] Dr. Shobha Ruffin UA PROTEIN Negative Normal NEGATIVE/ TRACE [facility] Comment on above: Performed By: #### R ENAL, URIC, MG #### [facility] [address] [place] [address] Dr. Shobha Ruffin Urobilinogen Qn (U) 1.0 {Raul'U}/dL Normal 0.2 - 1. 0 [facility] Comment on above: Performed By: #### R ENAL, URIC, MG #### [facility] [address] [place] [address] Dr. Shobha Ruffin WBC 2-5 Abnormal NONE SEEN [facility] Comment on above: Performed By: #### R ENAL, URIC, MG #### [facility] [address] [place] [address] Dr. Shobha Ruffin URIC ACID SERUMon 11-26-2021 Urate [Mass/Vol] 3.2 mg/dL Normal 2.6-6.0 [facility] Comment on above: Performed By: #### R ENAL, URIC, MG #### [facility] [address] [place] [address] Dr. Shobha Ruffin URINE T PROTEIN CREAT RATIOo n 11-26-2021 Protein (U) [Mass/Vol] 24.2 mg/dL Critically high <=12.0 [facility] Comment on above: Performed By: #### R ENAL, URIC, MG #### [facility] [address] [address] [address] Shobha Ruffin UR PROT CREAT RAT 0.[address] [facility] Comment on above: Performed By: #### R ENAL, URIC, MG #### [facility] [address] [address] [address] Shobha Ruffin URINE CREAT 152.18 mg/dL Normal 20.00-300. [address] [facility] Comment on above: Performed By: #### R ENAL, URIC, MG #### [facility] [address] [place] [address] Dr. Shobha Ruffin VITAMIN D 25 OHon 11-26-2021 VIT D 25-OH 38.4 ng/mL Normal [facility] Comment on above: Performed By: #### O BSCRN #### [facility] [address] [place] [address] Dr. Shobha Ruffin VIT D RANGES SEE BELOW Normal [facility] Comment on above: Result Comment: <20 ng/mL Vit D deficient 20 - <30 ng/mL Vit D insufficient 30 - 100 ng/mL Vit D sufficient >100 ng/mL Potential Toxicity Performed By: #### O BSCRN #### [facility] [address] [place] [address] Dr. Shobha Ruffin Basic metabolic 2000 panelon 11-17-2021 Anion gap [Moles/Vol] 14 mmol/L Normal 9-18 [facility] Comment on above: Order Comment: Speci men Type: BLOOD SPECIMEN Ordering Facility: [facility] Address: [address] [place] [phone] Performed By: #### 1 9123-9, 67542-1, 2777-1 #### [facility] CLIA [id number] [address] [place] [address] [place] Calcium [Mass/Vol] 9.6 mg/dL Normal 8.5-10.2 [facility] Comment on above: Order Comment: Speci men Type: BLOOD SPECIMEN Ordering Facility: [facility] Address: [address] [address] Performed By: #### 1 9123-9, 76025-7, 2776- #### [facility] CLIA [id number] [address] [place] [address] [place] Chloride [Moles/Vol] 95 mmol/L Low 97-105 [facility] Comment on above: Order Comment: Speci men Type: BLOOD SPECIMEN Ordering Facility: [facility] Address: [address] [place] [address] Performed By: #### 1 9123-9, 88895-2, 2776- #### [facility] CLIA [id number] [address] [place] [address] [place] CO2 [Moles/Vol] 23 mmol/L Normal 22-30 [facility] Comment on above: Order Comment: Speci men Type: BLOOD SPECIMEN Ordering Facility: [facility] Address: [address] [place] [address] Performed By: #### 1 9123-9, 61016-2, 2776-05 #### [facility] CLIA [id number] [address] [place] [address] [place] Creatinine [Mass/Vol] 0.91 mg/dL Normal 0.58-0.96 [facility] Comment on above: Order Comment: Speci men Type: BLOOD SPECIMEN Ordering Facility: [facility] Address: [address] [place] [address] Performed By: #### 1 9123-9, 06914-7, 2776-05 #### [facility] CLIA [id number] [address] [place] [address] [place] ESTIMATED GLOMERULAR FILTRATION RATE 69 mL/min/1.73m??? Normal >=60 [facility] Comment on above: Order Comment: Speci men Type: BLOOD SPECIMEN Ordering Facility: [facility] Address: [address] [place] [address] Result Comment: Gabriela mated Glomerular Filtration Rate [...] actual GFR. Performed By: #### 1 9123-9, 74379-0, 2776-05 #### [facility] CLIA [id number] [place] [address] [place] Glucose [Mass/Vol] 110 mg/dL High 74-99 [facility] Comment on above: Order Comment: Param jarquin Type: BLOOD SPECIMEN Ordering Facility: [facility] Address: [address] [place], [place] [phone] Result Comment: The [place] Diabetes Association (ADA) provides guidance for cutoff [...] Standards of Medical Care in Diabetes 2016, [place] [employer]. Diabetes Care. 2016.39(Suppl 1). Performed By: #### 1 9123-9, 06656-6, 2776-05 #### [facility] CLIA [id number] [place] [address] [place] Potassium [Moles/Vol] 3.6 mmol/L Low 3.7-5.1 [facility] Comment on above: Order Comment: Param jarquin Type: BLOOD SPECIMEN Ordering Facility: [facility] Address: [address] [place] [address] Performed By: #### 1 9123-9, 87031-6, 2776-05 #### [facility] CLIA [id number] [address] [place] [address] [place] Sodium [Moles/Vol] 132 mmol/L Low 136-144 [facility] Comment on above: Order Comment: Speci men Type: BLOOD SPECIMEN Ordering Facility: [facility] Address: [address] [place] [address] Performed By: #### 1 9123-9, 34901-3, 2776-05 #### [facility] CLIA [id number] [address] [place] [address] [place] Urea nitrogen [Mass/Vol] 13 mg/dL Normal 7-21 [facility] Comment on above: Order Comment: Speci men Type: BLOOD SPECIMEN Ordering Facility: [facility] Address: [address] [place] [address] Performed By: #### 1 9123-9, 31140-3, 2776-05 #### [facility] CLIA [id number] [address] [place] [address] [place] CBC W Auto Differential pane l (Bld)on 11-17-2021 Basophils (Bld) [#/Vol] 10*3/uL Normal <0.11 [facility] Comment on above: Order Comment: Speci men Type: BLOOD SPECIMENOrdering Facility: [facility] Address: [address] [place] [address] Performed By: #### 5 7021-8 ####[facility] [id number] [place] [address] [place] Basophils/100 WBC (Bld) 0.1 % Normal [facility] Comment on above: Order Comment: Speci men Type: BLOOD SPECIMENOrdering Facility: [facility] Address: [address] [place] [address] Performed By: #### 5 7021-8 ####[facility] [id number] [place] [address] [place] Differential cell count method Nom (Bld) Auto Normal [facility] Comment on above: Order Comment: Speci men Type: BLOOD SPECIMENOrdering Facility: [facility] Address: [address] [place] [address] Performed By: #### 5 7021-8 ####[facility] [id number] [place] [address] [place] Eosinophils (Bld) [#/Vol] 10*3/uL Normal <0.46 [facility] Comment on above: Order Comment: Speci men Type: BLOOD SPECIMENOrdering Facility: [facility] Address: [address] [place] [address] Performed By: #### 5 7021-8 ####[facility] [id number] [place] [address] [place] Eosinophils/100 WBC (Bld) 0.0 % Normal [facility] Comment on above: Order Comment: Speci men Type: BLOOD SPECIMENOrdering Facility: [facility] Address: [address] [place] [address] Performed By: #### 5 7021-8 ####[facility] [id number] [address] [place] Erythrocyte distribution width (RBC) [Ratio] 12.6 % Normal 11.5-15.0 [facility] Comment on above: Order Comment: Speci men Type: BLOOD SPECIMENOrdering Facility: [facility] Address: [address] [place] [address] Performed By: #### 5 7021-8 ####[facility] [id number] [address] [place] Hematocrit (Bld) [Volume fraction] 39.9 % Normal 36.0-46.0 [facility] Comment on above: Order Comment: Speci men Type: BLOOD SPECIMENOrdering Facility: [facility] Address: [address] [place] [address] Performed By: #### 5 7021-8 ####[facility]ORYCLIA [id number] [address] [place] Hemoglobin (Bld) [Mass/Vol] 13.4 g/dL Normal 11.5-15.5 [facility] Comment on above: Order Comment: Speci men Type: BLOOD SPECIMENOrdering Facility: [facility] Address: [address] [place] [address] Performed By: #### 5 7021-8 ####[facility]ORYCLIA [id number] [address] IMMATURE GRAN % 0.4 % Normal [facility] Comment on above: Order Comment: Speci men Type: BLOOD SPECIMENOrdering Facility: [facility] Address: [address] [place] [address] Performed By: #### 5 7021-8 ####[facility]ORYCLIA [id number] [address] [place] IMMATURE GRAN ABS 0.04 k/uL Normal <0.10 [facility] Comment on above: Order Comment: Speci men Type: BLOOD SPECIMENOrdering Facility: [facility] Address: [address] [place] [address] Performed By: #### 5 7021-8 ####[facility]ORYCLIA [id number] [place] [address] [place] Lymphocytes (Bld) [#/Vol] 1.25 10*3/uL Normal 1.00-4.00 [facility] Comment on above: Order Comment: Speci men Type: BLOOD SPECIMENOrdering Facility: [facility] Address: [address] [place] [address] Performed By: #### 5 7021-8 ####[facility]ORYCLIA [id number] [address] [place] Lymphocytes/100 WBC (Bld) 11.6 % Normal [facility] Comment on above: Order Comment: Speci men Type: BLOOD SPECIMENOrdering Facility: [facility] Address: [address] [place] [address] Performed By: #### 5 7021-8 ####[facility]ORYCLIA [id number] [place] [address] [place] MCH (RBC) [Entitic mass] 29.4 pg Normal 26.0-34.0 [facility] Comment on above: Order Comment: Speci men Type: BLOOD SPECIMENOrdering Facility: [facility] Address: [address] Performed By: #### 5 7021-8 ####[facility]ATORYCLIA [id number] [address] [place] [id number] [place] MCHC (RBC) [Mass/Vol] 33.6 g/dL Normal 30.5-36.0 [facility] Comment on above: Order Comment: Speci men Type: BLOOD SPECIMENOrdering Facility: [facility] Address: [address] [place] [address] Performed By: #### 5 7021-8 ####[facility]ATORYCLIA [id number] [place] [address] [place] MCV (RBC) [Entitic vol] 87.5 fL Normal 80.0-100.0 [facility] Comment on above: Order Comment: Speci men Type: BLOOD SPECIMENOrdering Facility: [facility] Address: [address] [place] [address] Performed By: #### 5 7021-8 ####[facility]ATORYCLIA [id number] [place] [address] [place] Monocytes (Bld) [#/Vol] 1.20 10*3/uL High <0.87 [facility] Comment on above: Order Comment: Speci men Type: BLOOD SPECIMENOrdering Facility: [facility] Address: [address] [place] [address] Performed By: #### 5 7021-8 ####[facility] [id number] [address] [place] Monocytes/100 WBC (Bld) 11.1 % Normal [facility] Comment on above: Order Comment: Speci men Type: BLOOD SPECIMENOrdering Facility: [facility] Address: [address] [place], [place] [address] Performed By: #### 5 7021-8 ####[facility]ATORYCLIA [id number] [place] [address] [place] Neutrophils (Bld) [#/Vol] 8.32 10*3/uL High 1.45-7.50 [facility] Comment on above: Order Comment: Speci men Type: BLOOD SPECIMENOrdering Facility: [facility] Address: [address] [place] [address] Performed By: #### 5 7021-8 ####[facility]ORYCLIA [id number] [address] Neutrophils/100 WBC (Bld) 76.8 % Normal [facility] Comment on above: Order Comment: Speci men Type: BLOOD SPECIMENOrdering Facility: [facility] Address: [address] [place] [address] Performed By: #### 5 7021-8 ####[facility]ORYCLIA [id number] [address] Nucleated RBC (Bld) [#/Vol] 10*3/uL Normal <0.01 [facility] Comment on above: Order Comment: Speci men Type: BLOOD SPECIMENOrdering Facility: [facility] Address: [address] [place] [address] Performed By: #### 5 7021-8 ####[facility]ATORYCLIA [id number] [address] Nucleated RBC/100 WBC (Bld) [Ratio] 0.0 /100 WBC Normal [facility] Comment on above: Order Comment: Speci men Type: BLOOD SPECIMENOrdering Facility: [facility] Address: [address] [place] [address] Performed By: #### 5 7021-8 ####[facility]ORYCLIA [id number] [address] Platelet mean volume (Bld) [Entitic vol] 9.6 fL Normal 9.0-12.7 [facility] Comment on above: Order Comment: Speci men Type: BLOOD SPECIMENOrdering Facility: [facility] Address: [address] [place] [address] Performed By: #### 5 7021-8 ####[facility]ORYCLIA [id number] [address] [place] Platelets (Bld) [#/Vol] 333 10*3/uL Normal 150-400 [facility] Comment on above: Order Comment: Speci men Type: BLOOD SPECIMENOrdering Facility: [facility] Address: [address] [place] [address] Performed By: #### 5 7021-8 ####[facility] [id number] [place] [address] [place] RBC (Bld) [#/Vol] 4.56 10*6/uL Normal 3.90-5.20 [facility] Comment on above: Order Comment: Speci men Type: BLOOD SPECIMENOrdering Facility: [facility] Address: [address] [place] [address] Performed By: #### 5 7021-8 ####[facility]ORYCLIA [id number] [place] [address] [place] WBC (Bld) [#/Vol] 10.82 10*3/uL Normal 3.70-11.00 [facility] Comment on above: Order Comment: Speci men Type: BLOOD SPECIMENOrdering Facility: [facility] Address: [address] [place] [address] Performed By: #### 5 7021-8 ####[facility] [id number] [address] [place] CNDSon 11-17-2021 DS HNO ID: [id number] Author: Zhane Rasmussen MD Service: General Surgery [...] performed HOSPITAL COURSE: You were admitted to [facility] on 11/16/2021 to undergo the above [...] MG TA (more content not included)... Normal [facility] Magnesium SerPl-mCncon 11-17 Magnesium [Mass/Vol] 1.8 mg/dL Normal 1.7-2.3 [facility] Comment on above: Order Comment: Speci men Type: BLOOD SPECIMENOrdering Facility: [facility] Address: [address] [place] [address] Performed By: #### 1 9123-9, 17160-5, 2777-1 ####[facility]IA [id number] [address] NURSING PROGon 11-17-2021 NURSING PROG HNO ID: [id number] Author: Zakia Champagne RN Service: Nursing Author Type: Registered Nurse Type: Nursing Progress Note Filed: 11/17/2021 10:17 AM Note Text: Nursing Progress Note Patient Name: Mary Goode Patient Location: [place] [address] [address] Daily Note: 0830: Pt AANDOx3. VSS. RA. Pt up with standby assist to the bathroom to void. Pt up and ambulated in the halls, standby, steady gait. Abdomen tender, bowel sounds hypoactive, no flatus yet. No complaints of nausea. Diet advanced to clear liquids. Lap sites fiber machine tender with glue. Pain 3/10, manageable at this time. Encouraged to use IC. Call light in reach. This note was completed by: Zakia Champagne [facility] PT EDon 11-17-2021 PT ED HNO ID: [id number] Author: Kat Pitt DTR Service: Nutrition Therapy Author Type: Desktop Manager Type: Patient Education Filed: 11/17/2021 11:12 AM [...] November 17, 2021 TIME: 11:08 AM PAGER: Normal [facility] Phosphate SerPl-mCncon 11-17 Phosphate [Mass/Vol] 3.7 mg/dL Normal 2.7-4.8 [facility] Comment on above: Order Comment: Speci men Type: BLOOD SPECIMENOrdering Facility: [facility] Address: [address] [place] [address] Performed By: #### 1 9123-9, 47035-7, 2777-1 ####[facility]ORYCLIA [id number] [address] [place] ANES POSTPROC EVALon 022 ANES POSTPROC EVAL HNO ID: [id number] Author: Julian Dotson MD Service: Anesthesiology Author Type: Anesthesiologist Type: Anesthesia Postprocedure Evaluation Filed: 11/16/2021 3:25 PM Note Text: POST ANESTHESIA EVALUATION NOTE : 1950 Procedure Summary Date: 11/16/21 Room / Location: OR05 / [facility] OR Anesthesia Start: 1139 Anesthesia Stop: 1445 Procedure: LAPAROSCOPIC RPR PARAESOPHAGEAL [...] November 16, 2021 TIME: 3:25 PM CSN: [id number] [facility] ANES PRE-OPon 11-16-2021 ANES PRE-OP HNO ID: [id number] Author: Julian Dotson MD Service: Anesthesiology Author Type: Anesthesiologist Type: Anesthesia Preprocedure Evaluation Filed: 11/16/2021 12:03 PM Note Text: ANESTHESIOLOGY DAY OF SURGERY NOTE : 1950 Procedure Information Anesthesia Start Date/Time: 11/16/21 1139 Procedure: LAPAROSCOPIC RPR PARAESOPHAGEAL HERNIA W/MESH (N/A Abdomen) Location: OR05 / [facility] OR Surgeons: Atif Mendez MD Estimated body [...] and consent discussed: yes. Patient / Responsible Republican agrees to proceed: yes Patient / Surrogate [...] have interviewed and (more content not included)... [facility] BRIEF OP NOTon 11-16-2021 BRIEF OP NOT HNO ID: [id number] Author: Don Minor MD Service: General Surgery Author Type: Resident Type: Brief Op Note Filed: 11/16/2021 2:35 PM Note Text: GENERAL SURGERY BRIEF OP NOTE LOG ID: [id number] Surgery/Procedure Date: 11/16/2021 Incision/Procedure Start Time: 12:11 PM Incision Close/Procedure End Time: 2:32 PM Surgeon(s) and Commercial Singer(s): Surgeon(s) and Role: * Atif Mendez MD [...] 16, 2021 TIME: 2:32 PM PAGER/CONTACT #: [phone] [facility] HISTORY PHYSICALon HISTORY PHYSICAL HNO ID: [id number] Author: Don Minor MD Service: General Surgery [...] DATE: November 16, 2021 TIME: 10:54 AM [facility] NURSING PROGon 11-16-2021 NURSING PROG HNO ID: [id number] Author: Renetta Quintana RN Service: Nursing Author Type: Registered Nurse Type: Nursing Progress Note Filed: 11/16/2021 4:23 PM Note Text: Nursing Progress Note Patient Name: Mary Goode Patient Location: [place] [address] [address] Transfer Note: Patient transferred into room/unit pk3-[facility] in stable condition. Actions taken: No futher actions taken at this time. Will continue to monitor and check with patient. This note was completed by: Renetta Quintana [facility] NURSING PROG HNO ID: [id number] Author: Arcelia Leal RN Service: Nursing Author [...] REFERRAL (RECOMMENDATION): None Electronically Signed By: Arcelia Conn [facility] OPERATIVE NOon 11-16-2021 OPERATIVE NO HNO ID: [id number] Author: Atif Mendez MD Service: General Surgery Author Type: Physician Type: Operative Report Filed: 11/23/2021 6:07 PM Note Text: [facility] - Operative Report MARY GOODE : 1950 AGE: 70. SEX: F PATIENT TYPE: I HOSP SV: GEN LOCATION: PK33 ATTENDING PHYSICIAN: Atif Mendez MD CSN NUMBER: [id number] DATE OF SURGERY/PROCEDURE: 11/16/2021 INCISION/PROCEDURE START TIME: 12:11 PM INCISION CLOSE/PROCEDURE END TIME: 2:27 PM PREOPERATIVE DIAGNOSIS: Paraesophageal hernia. POSTOPERATIVE DIAGNOSIS: 1. Paraesophageal hernia. 2. Short esophagus. SURGEON: Atif Mendez MD TORPEDO SPECIALIST: Don Pérez MD SURGERY/PROCEDURE: 1. Laparoscopic repair [...] a fundectomy was subsequently performed. 3. A 58-Bulgarian bougie was used to guide the size [...] the fat pad was brought down. The Grubbs was passed from the right to the [...] we decided to perform a fundectomy. A 58-Bulgarian bougie was passed in the esophagus into [...] complications noted. Because the patient is a Mandaeism, a Tisseel was used to spray in the operative bed. The 12 mm extraction port site was closed using a eqkrxy-mc-eaxja stitch using Vicryl. The other 12 mm [...] in throughout the operation. Atif Mendez MD TA:[id number] Normal [facility] SURGICAL PATHOLOGYon 022 CASE REPORT Normal [facility] Comment on above: Order Comment: Lizai britton Type: TISSUE SPECIMENOrdering Facility: [facility] Address: [address] [place], [place] [address] Result Comment: Surg ical Pathology Report Case: [id number] Authorizing Provider: Atif Mendez MD Collected: 11/16/2021 02:11 PM Ordering Location: [facility] Received: 11/16/2021 03:29 PM Operating Room Pathologist: Alba Neal MD Specimen: STOMACH RESECTION, Fundectomy Performed By: #### S ####[facility] LABCLIA [id number] [address] LABORATORYCLIA [id number] [address] FINAL DIAGNOSIS [facility] Comment on above: Order Comment: Specdung jarquin Type: TISSUE SPECIMENOrdering Facility: [facility] Address: [address] [place], [place] [address] Result Comment: Stom ach, excision: - Portion of stomach with fundic gland polyps. - No morphologic evidence of Helicobacter pylori microorganisms. Performed By: #### S ####[facility] LABCLIA [id number] [address] LABORATORYCLIA [id number] [address] FINAL PERFORMING LAB Normal [facility] Comment on above: Order Comment: Speci men Type: TISSUE SPECIMENOrdering Facility: [facility] Address: [address] [place] [address] Result Comment: Diag nostic interpretation performed at [facility], [address] [address] CLIA# [id number] Cable Supervisor: Fer Avalos M.D. Performed By: #### S ####[facility] LABCLIA [id number] [address] LABORATORYCLIA [id number] [address] GROSS DESCRIPTION Normal [facility] Comment on above: Order Comment: Speci men Type: TISSUE SPECIMENOrdering Facility: [facility] Address: [address] [place] [address] Result Comment: A. S TOMACH RESECTION. Received [...] The serosal surface is oates and smooth. 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 sections are submitted as follows: A1 3 polyps totally submitted, A2 2 polyps totally submitted, A3 2 polyps totally submitted, A4 uninvolved gastric mucosa. BF November 17, 2021 9:13 AM Gross examination performed at [facility], [address] [place] [address] CLIA # [id number] Performed By: #### S ####[facility] LABCLIA [id number] [address] LABORATORYCLIA [id number] [address] SARS-CoV-2 RNA Resp Ql CONRADO+p jessie 11-13-2021 SARS-CoV-2 (COVID-19) RNA CONRADO+probe Ql (Resp) COVID 19 RESULT: SARS-CoV-2 (Agent of COVID-19) Not Detected by RT-PCR or equivalent method. This test was developed and its performance characteristics determined by [facility]'s Marc Arambula [facility] Pathology and Laboratory Medicine [place]. This test has been authorized by FDA under an Emergency Use Authorization (EUA). This test has been validated in accordance with the FDA's Guidance Document Policy for Diagnostics Testing in Laboratories Certified to Perform High Complexity Testing under CLIA prior to Emergency use Authorization for Coronavirus Disease 2019 during the Public Health Emergency issued on July 07, 2019. Test performed by [facility], [facility] Pathology and Laboratory Medicine [place], [address] [place] [address]. Normal [facility] Comment on above: Performed By: #### 9 4500-6 ####[facility] LABCLIA [id number] [address] OF [facility] CNOVon 11-12-2021 CNOV Office Visit ([id number] ) RUSSELMARY Cherry ([id number]) 1950 F Date Time Provider Department 11/12/21 11:30 AM AITF MENDEZ [id number] During your visit today, we recorded the following information about you: Temperature Pulse Blood pressure Weight 97.4 degrees 62/minute 140/63 78.5 kg Height 1.6 m Atif Mendez MD 11/12/2021 1:39 PM Signed SURGERY PREOPERATIVE VISIT NOTE Name: Mary Goode Medical Record: [id number] Encounter No.: [id number] Mary Goode is a 70 year old female seen in surgery clinic today for their final preoperative assessment. INTERVAL NOTE: Patient needed to discuss regarding surgery. She is currently scheduled for a paraesophageal hernia repair. 10/21/2021 CT A/P 10/16/2021 esophageal manometry View External Imaging - Miscellaneous Imaging [ID [id number]] 10/07/2021 UGI Scan on 10/27/2021 ?8:25 AM by External Provider: GI BMI 31 PLANNED PROCEDURE: Paraesophageal hernia repair, possible Monico fundoplication. Patient is a Mandaeism. We have discussed regarding not doing a fundoplication if risk of recurrence is assessed to be on the higher side intraoperatively. 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 Normal [facility] ECHOon 11-06-2021 Echocardiography Echocardiography Rep ort: Transthoracic Echo [facility] Date of service: 11/06/2021 10:21:38 AM DIRECTOR Ordering physician: DOROTHY SPARROW Indication: Pre-op (non [...] * * * Final * * * [id number] ngoDynamicsSISUID Normal [facility] CBC panel Auto (Bld)on 11-03 Erythrocyte distribution width (RBC) [Ratio] 12.5 % Normal 11.5-15.0 [facility] Comment on above: Order Comment: Speci men Type: BLOOD SPECIMENOrdering Facility: [facility] Address: [address] [place] [address] Performed By: #### 5 8410-2 ####MELISSA [facility] LABCLIA [id number] [place] [address] [place] Hematocrit (Bld) [Volume fraction] 36.7 % Normal 36.0-46.0 [facility] Comment on above: Order Comment: Speci men Type: BLOOD SPECIMENOrdering Facility: [facility] Address: [address] [place] [address] Performed By: #### 5 8410-2 ####MELISSA [facility] LABIA [id number] [place] [address] [place] Hemoglobin (Bld) [Mass/Vol] 12.3 g/dL Normal 11.5-15.5 [facility] Comment on above: Order Comment: Speci men Type: BLOOD SPECIMENOrdering Facility: [facility] Address: [address] [place] [address] Performed By: #### 5 8410-2 ####MELISSA [facility] LABIA [id number] [address] [place] MCH (RBC) [Entitic mass] 30.0 pg Normal 26.0-34.0 [facility] Comment on above: Order Comment: Speci men Type: BLOOD SPECIMENOrdering Facility: [facility] Address: [address] [place] [address] Performed By: #### 5 8410-2 ####MELISSA [facility] LABIA [id number] [address] [place] MCHC (RBC) [Mass/Vol] 33.5 g/dL Normal 30.5-36.0 [facility] Comment on above: Order Comment: Speci men Type: BLOOD SPECIMENOrdering Facility: [facility] Address: [address] [place], [place] [address] Performed By: #### 5 8410-2 ####MELISSA [facility] LABIA [id number] [address] [place] MCV (RBC) [Entitic vol] 89.5 fL Normal 80.0-100.0 [facility] Comment on above: Order Comment: Speci men Type: BLOOD SPECIMENOrdering Facility: [facility] Address: [address] [place], [place] [address] Performed By: #### 5 8410-2 ####MELISSA [facility] LABCLIA [id number] [place] [address] [place] Nucleated RBC (Bld) [#/Vol] 10*3/uL Normal <0.01 [facility] Comment on above: Order Comment: Speci men Type: BLOOD SPECIMENOrdering Facility: [facility] Address: [address] [place], [place] [address] Performed By: #### 5 8410-2 ####[facility]SA [facility] LABCLIA [id number] [place] [address] [place] Platelet mean volume (Bld) [Entitic vol] 9.3 fL Normal 9.0-12.7 [facility] Comment on above: Order Comment: Speci men Type: BLOOD SPECIMENOrdering Facility: [facility] Address: [address] [place], [place] [address] Performed By: #### 5 8410-2 ####[facility]SA [facility] LABCLIA [id number] [place] [address] [place] Platelets (Bld) [#/Vol] 331 10*3/uL Normal 150-400 [facility] Comment on above: Order Comment: Speci men Type: BLOOD SPECIMENOrdering Facility: [facility] Address: [address] [place], [place] [address] Performed By: #### 5 8410-2 ####MELISSA [facility] LABCLIA [id number] [place] [address] [place] RBC (Bld) [#/Vol] 4.10 10*6/uL Normal 3.90-5.20 [facility] Comment on above: Order Comment: Speci men Type: BLOOD SPECIMENOrdering Facility: [facility] Address: [address] [place], [place] [address] Performed By: #### 5 8410-2 ####[facility] LABCLIA [id number] [place] [address] [place] WBC (Bld) [#/Vol] 7.53 10*3/uL Normal 3.70-11.00 [facility] Comment on above: Order Comment: Speci men Type: BLOOD SPECIMENOrdering Facility: [facility] Address: [facility] [address] [address] Performed By: #### 5 8410-2 ####[facility] LABCLIA [id number] [address] [place] [facility] MARY GOODE ([id number]) 1950 F Date Time Provider Department 11/03/21 ATIF MENDEZ During your visit today, we recorded the following information about you: Gee Meeks Ma 11/03/2021 10:41 AM Signed Patient is in need of Echo before 11/16 for surgery. Is anyone able to assist in getting the patient in for this? Gee Meeks Ma 11/04/2021 2:50 PM Signed Patient scheduled 11/06 in [place] for ECHO Allergies As of Date: 11/03/2021 (No Known Allergies) Date Reviewed: 11/03/2021 Reviewed by: Dorothy Sparrow APRN.DIRECTOR CASE - Fully Assessed Reason for Visit: Orders [...] by GEE MEEKS MA on 11/04/21 Normal [facility] metabolic 2000 panelon 11-03-2021 Albumin [Mass/Vol] 4.6 g/dL Normal 3.9-4.9 [facility] Comment on above: Order Comment: Speci men Type: BLOOD SPECIMENOrdering Facility: [facility] Address: [address] [place] [address] Performed By: #### 2 4323-8 ####[facility] LABCLIA [id number] [place] [address] [place] ALP [Catalytic activity/Vol] 91 U/L Normal 34-123 [facility] Comment on above: Order Comment: Speci men Type: BLOOD SPECIMENOrdering Facility: [facility] Address: [address] [place] [address] Performed By: #### 2 4323-8 ####[facility] LABCLIA [id number] [place] [address] [place] ALT [Catalytic activity/Vol] 16 U/L Normal 7-38 [facility] Comment on above: Order Comment: Speci men Type: BLOOD SPECIMENOrdering Facility: [facility] Address: [address] [place] [address] Performed By: #### 2 4323-8 ####MELISSA [facility] LABCLIA [id number] [place] [address] [place] Anion gap [Moles/Vol] 9 mmol/L Normal 9-18 [facility] Comment on above: Order Comment: Speci men Type: BLOOD SPECIMENOrdering Facility: [facility] Address: [address] [place] [address] Performed By: #### 2 4323-8 ####[facility] LABCLIA [id number] [place] [address] [place] AST [Catalytic activity/Vol] 17 U/L Normal 13-35 [facility] Comment on above: Order Comment: Speci men Type: BLOOD SPECIMENOrdering Facility: [facility] Address: [address] [place] [address] Performed By: #### 2 4323-8 ####[facility] LABCLIA [id number] [place] [address] [place] Bilirubin [Mass/Vol] 0.6 mg/dL Normal 0.2-1.3 [facility] Comment on above: Order Comment: Speci men Type: BLOOD SPECIMENOrdering Facility: [facility] Address: [address] [place] [address] Performed By: #### 2 4323-8 ####[facility] LABCLIA [id number] [place] [address] [place] Calcium [Mass/Vol] 10.3 mg/dL High 8.5-10.2 [facility] Comment on above: Order Comment: Speci men Type: BLOOD SPECIMENOrdering Facility: [facility] Address: [address] [place] [address] Performed By: #### 2 4323-8 ####[facility] LABCLIA [id number] [place] [address] [place] Chloride [Moles/Vol] 98 mmol/L Normal 97-105 [facility] Comment on above: Order Comment: Speci men Type: BLOOD SPECIMENOrdering Facility: [facility] Address: [address] [place] [address] Performed By: #### 2 4323-8 ####[facility] LABCLIA [id number] [place] [address] [place] CO2 [Moles/Vol] 27 mmol/L Normal 22-30 [facility] Comment on above: Order Comment: Speci men Type: BLOOD SPECIMENOrdering Facility: [facility] Address: [address] [place] [address] Performed By: #### 2 4323-8 ####[facility] LABCLIA [id number] [place] [address] [place] Creatinine [Mass/Vol] 1.05 mg/dL High 0.58-0.96 [facility] Comment on above: Order Comment: Param jarquin Type: BLOOD SPECIMENOrdering Facility: [facility] Address: [address] [place] [address] Performed By: #### 2 4323-8 ####[facility] LABCLIA [id number] [place] [address] [place] ESTIMATED GLOMERULAR FILTRATION RATE 58 mL/min/1.73m??? Low >=60 [facility] Comment on above: Order Comment: Param jarquin Type: BLOOD SPECIMENOrdering Facility: [facility] Address: [address] [place] [address] Result Comment: Gabriela mated Glomerular Filtration Rate [...] By: #### 2 4323-8 ####[facility] LABCLIA [id number] [place] [address] [place] Glucose [Mass/Vol] 108 mg/dL High 74-99 [facility] Comment on above: Order Comment: Param jarquin Type: BLOOD SPECIMENOrdering Facility: [facility] Address: [address] [place] [address] Result Comment: The [place] Diabetes Association (ADA) provides guidance for cutoff [...] Standards of Medical Care in Diabetes 2016, [place] Diabetes Association. Diabetes Care. 2016.39(Suppl 1). Performed By: #### 2 4323-8 ####[facility] LABCLIA [id number] [place] [address] [place] Potassium [Moles/Vol] 4.3 mmol/L Normal 3.7-5.1 [facility] Comment on above: Order Comment: Speci men Type: BLOOD SPECIMENOrdering Facility: [facility] Address: [address] [place] [address] Performed By: #### 2 4323-8 ####[facility] LABCLIA [id number] [place] [address] [place] Protein [Mass/Vol] 7.2 g/dL Normal 6.3-8.0 [facility] Comment on above: Order Comment: Speci men Type: BLOOD SPECIMENOrdering Facility: [facility] Address: [address] [place] [address] Performed By: #### 2 4323-8 ####[facility] LABCLIA [id number] [place] [address] [place] Sodium [Moles/Vol] 134 mmol/L Low 136-144 [facility] Comment on above: Order Comment: Speci men Type: BLOOD SPECIMENOrdering Facility: [facility] Address: [address] [place] [address] Performed By: #### 2 4323-8 ####[facility] LABCLIA [id number] [place] [address] [place] Urea nitrogen [Mass/Vol] 19 mg/dL Normal 7-21 [facility] Comment on above: Order Comment: Speci men Type: BLOOD SPECIMENOrdering Facility: [facility] Address: [address] [place] [address] Performed By: #### 2 4323-8 ####MELISSA [facility] LABCLIA [id number] [place] [address] [place] HISTORY PHYSICALon HISTORY PHYSICAL HNO ID: [id number] Author: Dorothy Sparrow APRN.DIRECTOR CASE Service: ? Author Type: Nurse Practitioner Type: [...] loss, malaise or fevers. Neurological: HCP s/p PLATE SETTER shunt Negative for: delirium, dementia, headaches, seizures and strokes. Respiratory: Positive for: obstructive sleep apnea and CPAP/BiPAP compliant. Negative for: asthma, current cough, bronchodilator used daily for the last 3 months, dyspnea, pneumonia within 6 weeks, tobacco use and URI < 2 weeks. Cardiovascular: Positive for: hypertension Negative for: CAD, chest pain, CHF, DVT/PE, recent CA and murmur/valvular heart disease. GI: See HPI. Negative for: dysphagia, liver disease and pancreatitis. : Positive for: renal failure. Patient's renal failure is chronic. Negative for: dysuria, hematuria and urinary tract infection. 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 Normal [facility] 10-23-2021 [facility] Telephone ([id number]) MARY GOODE ([id number]) 1950 F Date Time Provider Department 10/23/21 ATIF MENDEZ [id number] During your visit today, we recorded the following information about you: [facility] 10/23/2021 12:05 PM Signed [facility] Sent fax to [phone] -Manometry 10.16.21 -Upper GI 10.07.21 [facility] Jonathon Dobson 10/27/2021 3:59 PM Signed [...] Status:Closed by JONATHON DOBSON on 10/27/21 Normal [facility] CREATININE BLDon 10-21-2021 Creatinine [Mass/Vol] 1.04 mg/dL High 0.58-0.96 [facility] Comment on above: Order Comment: Speci men Type: BLOOD SPECIMENOrdering Facility: [facility] Address: [address] [place] [address] Performed By: #### C RET1 ####[facility] LABCLIA [id number] [place] [address] ESTIMATED GLOMERULAR FILTRATION RATE 59 mL/min/1.73m??? Low >=60 [facility] Comment on above: Order Comment: Speci men Type: BLOOD SPECIMENOrdering Facility: [facility] Address: [address] [place] [address] Result Comment: Gabriela mated Glomerular Filtration Rate [...] actual GFR. Performed By: #### C RET1 ####[facility] LABCLIA [id number] [place] [address] CREATININE BLDOrdered By: Felipe Huertas on 10-21-2021 Creatinine [Mass/Vol] 1.04 mg/dL High 0.58 - 0.96 mg/dL [facility] GFR/1.73 sq M.predicted among non-blacks MDRD (S/P/Bld) [Vol rate/Area] 59 mL/min/{1.73_m2} Low - PINF [facility] Comment on above: Estimated Glomerular Filtration Rate (eGFR) is calculated using the 2020 CKD-EPI creatinine equation. This equation utilizes serum creatinine, sex, and age as parameters. The creatinine assay has traceable calibration to isotope dilution-mass spectrometry. Refer to KDIGO guidelines for clinical interpretation. In patients with unstable renal function, e.g. those with acute kidney injury, the eGFR may not accurately reflect actual GFR. Interpretation and review of laboratory results Abnormal [facility] CT ABD/PEL W IVCONon 15-[address] ABD/PEL W IVCON * * *Final Report* * * DATE OF EXAM: Oct 21 2021 9:23AM [facility] 0530 - CT ABD/PEL W IVCON / [...] no acute osseous abnormalities. Lower thorax: Unremarkable. Heading Pinner (topogram) images: No additional findings. IMPRESSION: 1. [...] any questions regarding this interpretation, please call [phone]. If you are unable to reach us at the number above, please feel free to contact [facility] eRadiology at [phone]. [id number] Normal [facility] CT Abdomen and Pelvis W cont rast Shireen 10-21-2021 IMPRESSION: 1. No acute abnormalities within the [...] any questions regarding this interpretation, please call [phone]. If you are unable to reach us at the number above, please feel free to contact [facility] eRadiology at [phone]. ELVIA_DO_NOT_ USE_DIVISIO N OF RADIOLOGY * * *Final Report* * * DATE OF EXAM: Oct 21 2021 9:23AM [facility] 0530 - CT ABD/PEL W IVCON / [...] no acute osseous abnormalities. Lower thorax: Unremarkable. Heading Pinner (topogram) images: No additional findings. ELVIA_DO_NOT_ USE_DIVISDUNCAN N OF RADIOLOGY Provider, [facility] 10/21/2021 * * *Final Report* * * DATE OF EXAM: Oct 21 2021 9:23AM [facility] 0530 - CT ABD/PEL W IVCON / [...] no acute osseous abnormalities. Lower thorax: Unremarkable. Heading Pinner (topogram) images: No additional findings. IMPRESSION IMPRESSION: 1. No acute abnormalities within the [...] any questions regarding this interpretation, please call [phone]. If you are unable to reach us at the number above, please feel free to contact [facility] eRadiology at [phone]. [facility] Radiology Study observation (narrative) [facility] CT Abdomen and Pelvis W cont rast IVOrdered By: Ccf Provider on 10-21-2021 [facility] CNOVon 10-01-2021 CNOV Office Visit ([id number] ) RUSSELMARY ([id number]) 1950 F Date Time Provider Department 10/01/21 10:30 AM ATIF MENDEZ [id number] During your visit today, we recorded the [...] 70 year old female who is a Hinduism PMH of congenital hydrocephalus ( PLATE SETTER shunt), HTN, patient of Monika Guerrero MD, referred to me by Dr Ramirez for hiatal hernia with severe GERD symptoms. Patient reports heart burn, excess salivation and occasional regurgitaion. She denies any ALARM features including weight loss, GIB, odynyophagia or dysphagia. Her PSH include open appendectomy, JUANI, and PLATE SETTER shunt placement. The patient's most recent EGD was done in 09/03 and the report is included below Chart Review: -hx: worsening GERD - referred by Dr. Ramirez for GERD/Hiatal Hernia Scan on 09/03/2021 ?9:36 AM by Jonathon Dobson: [facility] progress note 07/22/2021 Dr. Ramirez - 08/06/2021 EGD Scan on 09/03/2021 ?9:35 AM by Jonathon Dobson: [facility] EGD 08/06/2021 Dr. Ramirez -09/17/2015 EGD Scan on 09/03/2021 ?9:33 AM by Jonathon Dobson: [facility] Operative report 09/17/2015 Dr. Walter Difficulty swallowing [...] 70 year old female who is a Hinduism PMH of congenital hydrocephalus ( PLATE SETTER shunt), HTN, who presents with paraesophageal hernia [...] the s (more content not included)... Normal [facility] 09-03-2021 [facility] Telephone ([id number]) MONIQUEMARY CHÁVEZ ([id number]) 1950 F LV Date Time Provider Department 09/03/21 ATIF MENDEZ [id number] During your visit today, we recorded the following information about you: Jonathon Dobson 09/03/2021 9:39 AM Signed Received medical records from Dr. Ramirez. Progress Note 07/22/2021 EGD [id number] Old Operative Report 09/17/2015 Please review. Allergies [...] Status:Closed by RIKY MOURA RN on 09/07/21 [facility] Cardiovascular Lab Reporton 01-13-2017 Cardiovascular Lab Report [facility] Patient Name: Mary Goode [facility] MR #: [id number] Physician: Caty Yoder,Department of M.D.Medicine Service Date: 01/12/2017Division of Birthdate: 3Cardiology Room #: CCAdult CardiovascularServicesAspire [facility] remigioPenobscot Bay Medical CenterJdjtvskRkyoxy90[address] [place], [place] [address]Ywrtm Fax Cardiovascular Laboratory ReportFINAL IMPRESSION:1. Mildly elevated [...] considered for right heart catheterization and coronary angiography.RECOMMENDATION:C ontinue medical therapy for risk factor modification and management ofdiastolic heart failure.PROCEDURES:1. Coronary angiography.2. Right heart catheterization.METHODS:Afte r risks, benefits, and alternatives were explained to the patient, shewas brought to catheterization lab in a fasting state. Right neck wasdraped and prepped in the usual sterile fashion. Using modified Seldingertechnique, a 5-Bulgarian micropuncture was placed in the right internaljugular vein. After that, this was upsized to a regular 5-Bulgarian sheath.A 5-Bulgarian Martinez was used for right heart catheterization. After theright heart catheterization, data was obtained. Martinez catheter was takenout. After that, access was obtained of left radial artery and a 6-Frenchsheath was placed and then we used a 5-Bulgarian JL4 and JR4 catheters forcoronary angiography. After [...] 01/12/2017/11:24 Darya/Caty Yoder M.D.Date Trans: 01/13/2017 07:28 A/Chin_[id number]: Imer Purcell M.D. [place] [id number] Samuel Sanchez M.D. [address] [place] [address] Vital Signs Date Time Vital Sign Value Performing Clinician Facility 03-21-2024 11:18-0500 Body height 157.5 cm Mireille Zurita MD Work Phone: [facility] 03-21-2024 11:18-0500 Body mass index (BMI) [Ratio] 33.29 kg/m2 Mireille Zurita MD Work Phone: [facility] 03-21-2024 11:18-0500 Body temperature 97 [degF] Mireille Zurita MD Work Phone: [facility] 03-21-2024 11:18-0500 Body weight 82.56 kg Mireille Zurita MD Work Phone: [facility] 03-21-2024 11:18-0500 Diastolic blood pressure 84 mm[Hg] Mireille Zurita MD Work Phone: [facility] 03-21-2024 11:18-0500 Heart rate 85 /min Mireille Zurita MD Work Phone: [facility] 03-21-2024 11:18-0500 Systolic blood pressure 132 mm[Hg] Mireille Zurita MD Work Phone: [facility] 03-06-2024 13:45-0400 Diastolic blood pressure 62 mm[Hg] MD Imer Purcell Work Phone: [facility] 03-06-2024 13:45-0400 Heart rate 66 /min MD Imer Purcell Work Phone: [facility] 03-06-2024 13:45-0400 Respiratory rate 16 /min MD Imer Purcell Work Phone: [facility] 03-06-2024 13:45-0400 SaO2% (BldA) [Mass fraction] 96 % MD Imer Purcell Work Phone: [facility] 03-06-2024 13:45-0400 Systolic blood pressure 130 mm[Hg] MD Imer Purcell Work Phone: [facility] 03-06-2024 12:12-0400 Body height 157.48 cm MD Imer Purcell Work Phone: [facility] 03-06-2024 12:12-0400 Body weight 81.19 kg MD Imer Purcell Work Phone: [facility] 03-01-2024 11:14-0400 Body height 157.5 cm Estelle BENSON Work Phone: [facility] 03-01-2024 11:14-0400 Body mass index (BMI) [Ratio] 33.73 kg/m2 Estelle Perez PA Work Phone: [facility] 03-01-2024 11:14-0400 Body weight 83.64 kg Estelle Perez PA Work Phone: [facility] 01-24-2024 10:18-0400 Body height 163.83 cm MD Imer Purcell Work Phone: [facility] 01-24-2024 10:18-0400 Body mass index (BMI) [Ratio] 30.4 kg/m2 MD Imer Purcell Work Phone: [facility] 01-24-2024 10:18-0400 Body temperature 97.6 [degF] MD Imer Purcell Work Phone: [facility] 01-24-2024 10:180400 Body weight 81.64 kg MD Imer Purcell Work Phone: [facility] 01-24-2024 10:18-0400 Diastolic blood pressure 79 mm[Hg] MD Imer Purcell Work Phone: [facility] 01-24-2024 10:18-0400 Heart rate 76 /min MD Imer Purcell Work Phone: [facility] 01-24-2024 10:18-0400 Respiratory rate 16 /min MD Imer Purcell Work Phone: [facility] 01-24-2024 10:18-0400 SaO2% (BldA) [Mass fraction] 99 % MD Imer Purcell Work Phone: [facility] 01-24-2024 10:18-0400 Systolic blood pressure 138 mm[Hg] MD Imer Purcell Work Phone: [facility] 10-19-2023 11:33-0400 Body height 157.5 cm Mireille Zurita MD Work Phone: [facility] 10-19-2023 11:33-0400 Body mass index (BMI) [Ratio] 31.83 kg/m2 Mireille Zurita MD Work Phone: [facility] 10-19-2023 11:33-0400 Body temperature 96.6 [degF] Mireille Zurita MD Work Phone: [facility] 10-19-2023 11:33-0400 Body weight 78.93 kg Mireille Zurita MD Work Phone: [facility] 10-19-2023 11:33-0400 Diastolic blood pressure 74 mm[Hg] Mireille Zurita MD Work Phone: [facility] 10-19-2023 11:33-0400 Heart rate 79 /min Mireille Zurita MD Work Phone: 6(164)615-768837 [place] [address] 10-19-2023 11:33-0400 Systolic blood pressure 132 mm[Hg] Mireille Zurita MD Work Phone: 6(613)770-807837 [place] [address] 06-16-2023 10:43-0500 Body height 160 cm Mireille Zurita MD Work Phone: 5(826)138-448537 [place] [address] 06-16-2023 10:43-0500 Body mass index (BMI) [Ratio] 31.53 kg/m2 Mireille Zurita MD Work Phone: 4(451)579-400837 [place] [address] 06-16-2023 10:43-0500 Body temperature 96.8 [degF] Mireille Zurita MD Work Phone: 8(691)687-646037 [place] [address] 06-16-2023 10:43-0500 Body weight 80.74 kg Mireille Zurita MD Work Phone: 0(880)647-748237 [place] [address] 06-16-2023 10:43-0500 Diastolic blood pressure 74 mm[Hg] Mireille Zurita MD Work Phone: 5(324)376-633037 [place] [address] 06-16-2023 10:43-0500 Heart rate 82 /min Mireille Zurita MD Work Phone: 4(595)980-552037 [place] [address] 06-16-2023 10:43-0500 Systolic blood pressure 110 mm[Hg] Mireille Zurita MD Work Phone: 7(980)285-921337 [place] [address] 05-10-2023 11:27-0500 Body height 157.5 cm Mireille Zurita MD Work Phone: 1(069)030-148237 [place] [address] 05-10-2023 11:27-0500 Body mass index (BMI) [Ratio] 32.08 kg/m2 Mireille Zurita MD Work Phone: 5(653)634-755137 [place] [address] 05-10-2023 11:27-0500 Body temperature 97.3 [degF] Mireille Zurita MD Work Phone: 1(126)455-291937 [place] [address] 05-10-2023 11:27-0500 Body weight 79.56 kg Mireille Zurita MD Work Phone: 4(397)112-639937 [place] [address] 05-10-2023 11:27-0500 Diastolic blood pressure 76 mm[Hg] Mireille Zurita MD Work Phone: [facility] 05-10-2023 11:27-0500 Heart rate 74 /min Mireille Zurita MD Work Phone: [facility] 05-10-2023 11:27-0500 Respiratory rate 16 /min Mireille Zurita MD Work Phone: [facility] 05-10-2023 11:27-0500 Systolic blood pressure 120 mm[Hg] Mireille Zurita MD Work Phone: 0(113)416-864837 [place] [address] 03-23-2023 08:20-0500 Body temperature 97.9 [degF] Mireille Zurita MD Work Phone: 4(874)553-927538 [place] [address] 03-23-2023 08:20-0500 Diastolic blood pressure 73 mm[Hg] Mireille Zurita MD Work Phone: 8(712)788-098938 [place] [address] 03-23-2023 08:20-0500 Heart rate 88 /min Mireille Zurita MD Work Phone: 0(082)406-005337 [place] [address] 03-23-2023 08:20-0500 Respiratory rate 16 /min Mireille Zurita MD Work Phone: [facility] 03-23-2023 08:20-0500 SaO2% (BldA) [Mass fraction] 95 % Mireille Zurita MD Work Phone: 8(315)479-683337 [place] [address] 03-23-2023 08:20-0500 Systolic blood pressure 127 mm[Hg] Mireille Zurita MD Work Phone: [facility] 03-21-2023 06:33-0500 Body height 157.5 cm Mireille Zurita MD Work Phone: [facility] 03-21-2023 06:33-0500 Body mass index (BMI) [Ratio] 31.45 kg/m2 Mireille Zurita MD Work Phone: [facility] 03-21-2023 06:33-0500 Body weight 78 kg Mireille Zurita MD Work Phone: 6(266)242-125337 [place] [address] 02-01-2023 09:40-0400 Body height 163.83 cm Gino Paco Other [employer] Other 02-01-2023 09:40-0400 Body mass index (BMI) [Ratio] 29.4 kg/m2 Gino Paco Other [employer] Other 02-01-2023 09:40-0400 Body temperature 97.6 [degF] Gino Paco Other [employer] Other 02-01-2023 09:40-0400 Body weight 78.93 kg Gino Paco Other [employer] Other 02-01-2023 09:40-0400 Diastolic blood pressure 74 mm[Hg] Gino Paco Other [employer] Other 02-01-2023 09:40-0400 Respiratory rate 18 /min Gino Paco Other [employer] Other 02-01-2023 09:40-0400 SaO2% (BldA) [Mass fraction] 98 % Gino Paco Other [employer] Other 02-01-2023 09:40-0400 Systolic blood pressure 129 mm[Hg] Gino Paco Other [employer] Other 01-20-2023 14:47-0400 Body height 160.02 cm Imer Chavezy Work Phone: [facility] [address] Work Phone: 01-20-2023 14:47-0400 Body mass index (BMI) [Ratio] 30.29 kg/m2 Imer Cherry Hoy Work Phone: WN-Bouunuqxixsu-Dylh [facility] Work Phone: 01-20-2023 14:47-0400 Body surface area Derived from formula 1.81 m2 Imer M Hoy Work Phone: VF-Ffdplqkqlhmr-Jcep [facility] Work Phone: 01-20-2023 14:47-0400 Body temperature 96.9 [degF] Imer M Hoy Work Phone: YM-Krqpxdknajaq-Oclj [facility] Work Phone: 01-20-2023 14:47-0400 Body weight 77.57 kg Imer M Hoy Work Phone: TC-Cufjzhgxxyjd-Bklo [facility] Work Phone: 01-20-2023 14:47-0400 Diastolic blood pressure 78 mm[Hg] Imer M Hoy Work Phone: BB-Knlqwobaxvuz-Vszr [facility] Work Phone: 01-20-2023 14:47-0400 Heart rate 69 /min Imer M Hoy Work Phone: YW-Htjtowvidfbb-Krzk [facility] Work Phone: 01-20-2023 14:47-0400 SaO2% (BldA) [Mass fraction] 98 % Imer M Hoy Work Phone: XY-Iunevlcgqeiv-Dbnx [facility] Work Phone: 01-20-2023 14:47-0400 Systolic blood pressure 140 mm[Hg] Imer M Hoy Work Phone: MX-Bikcojcsivge-Aoos [facility] Work Phone: 01-20-2023 14:47-0400 4 1 Imer M Hoy Work Phone: SZ-Hjhmyvsmuhld-Dgbk [facility] Work Phone: Comment on above: [employer] 12-07-2022 11:08-0400 Body height 160.02 cm Imer M Hoy Work Phone: KU-Tlgjntnevtwz-Kliw [facility] Work Phone: 12-07-2022 11:08-0400 Body mass index (BMI) [Ratio] 30.29 kg/m2 Imer M Hoy Work Phone: LV-Pggpyytggqxw-Djsg [facility] Work Phone: 12-07-2022 11:08-0400 Body surface area Derived from formula 1.81 m2 Imer M Hoy Work Phone: GZ-Ggjczxkpnkdt-Pruj [facility] Work Phone: 12-07-2022 11:08-0400 Body temperature 96.8 [degF] Imer M Hoy Work Phone: PL-Chojfobhgoek-Ofsa [facility] Work Phone: 12-07-2022 11:08-0400 Body weight 77.57 kg Imer M Hoy Work Phone: YH-Qmfcgeoyedtu-Igqb [facility] Work Phone: 12-07-2022 11:08-0400 Diastolic blood pressure 78 mm[Hg] Imer M Hoy Work Phone: VI-Fwaosjhooejm-Wubu [facility] Work Phone: 12-07-2022 11:08-0400 Heart rate 63 /min Imer M Hoy Work Phone: XU-Uaybihsqdspj-Xptl [facility] Work Phone: 12-07-2022 11:08-0400 SaO2% (BldA) [Mass fraction] 97 % Imer M Hoy Work Phone: DS-Hjpyurgunzvi-Fqmp [facility] Work Phone: 12-07-2022 11:08-0400 Systolic blood pressure 132 mm[Hg] Imer M Hoy Work Phone: AG-Bwswrbdkyhjp-Pjsw [facility] Work Phone: 12-07-2022 11:08-0400 4 1 Imer M Hoy Work Phone: ZB-Xuwfnnjtrnyi-Ffez [facility] Work Phone: Comment on above: [employer] 12-07-2022 11:08-0400 5 1 Imer M Hoy Work Phone: EY-Bqptjgpbppih-Nzsx [facility] Work Phone: Comment on above: PHQ-9 TS 08-03-2022 15:20-0400 Body height 163.83 cm Keagan Chadwick Other [employer] Other 08-03-2022 15:20-0400 Body mass index (BMI) [Ratio] 19.6 kg/m2 Keagan Chadwick Other [employer] Other 08-03-2022 15:20-0400 Body weight 52.62 kg Keagan Chadwick Other [employer] Other 07-22-2022 12:00-0400 Body height 163.83 cm Keagan Chadwick Other [employer] Other 07-22-2022 12:00-0400 Body mass index (BMI) [Ratio] 19.6 kg/m2 Keagan Chadwick Other [employer] Other 07-22-2022 12:00-0400 Body weight 52.62 kg Keagan Chadwick Other [employer] Other 07-22-2022 12:00-0400 Diastolic blood pressure 72 mm[Hg] Keagan Chadwick Other [employer] Other 07-22-2022 12:00-0400 Systolic blood pressure 118 mm[Hg] Keagan Chadwick Other [employer] Other 06-16-2022 10:00-0500 Body height 163.83 cm Gino Paco Other [employer] Other 06-16-2022 10:00-0500 Body mass index (BMI) [Ratio] 19.69 kg/m2 Gino Paco Other [employer] Other 06-16-2022 10:00-0500 Body temperature 97.6 [degF] Gino Paco Other [employer] Other 06-16-2022 10:00-0500 Body weight 52.84 kg Gino Paco Other [employer] Other 06-16-2022 10:00-0500 Diastolic blood pressure 70 mm[Hg] Gino Paco Other [employer] Other 06-16-2022 10:00-0500 Respiratory rate 18 /min Gino Paco Other [employer] Other 06-16-2022 10:00-0500 Systolic blood pressure 120 mm[Hg] Gino Paco Other [employer] Other 04-08-2022 10:09-0500 Diastolic blood pressure 64 mm[Hg] MD Imer Purcell Work Phone: [facility] 04-08-2022 10:09-0500 Heart rate 64 /min MD Imer Purcell Work Phone: [facility] 04-08-2022 10:09-0500 Respiratory rate 16 /min MD Imer Purcell Work Phone: [facility] 04-08-2022 10:09-0500 SaO2% (BldA) [Mass fraction] 100 % MD Imer Purcell Work Phone: [facility] 04-08-2022 10:09-0500 Systolic blood pressure 112 mm[Hg] MD Imer Purcell Work Phone: [facility] 04-08-2022 08:55-0500 Body height 160.02 cm MD Imer Purcell Work Phone: [facility] 04-08-2022 08:55-0500 Body temperature 98.2 [degF] MD Imer Purcell Work Phone: [facility] 04-08-2022 08:55-0500 Body weight 74.84 kg MD Imer Purcell Work Phone: [facility] 03-23-2022 16:20-0500 Body height 163.83 cm Keagan Chadwick Other [employer] Other 03-23-2022 16:20-0500 Body mass index (BMI) [Ratio] 28.05 kg/m2 Keagan Chadwick Other [employer] Other 03-23-2022 16:20-0500 Body weight 75.3 kg Keagan Chadwick Other [employer] Other 02-11-2022 14:00-0400 Body height 163.83 cm Keagan Chadwick Other [employer] Other 02-11-2022 14:00-0400 Body mass index (BMI) [Ratio] 28.05 kg/m2 Keagan Chadwick Other [employer] Other 02-11-2022 14:00-0400 Body weight 75.3 kg Keagan Chadwick Other [employer] Other 11-30-2021 11:20-0400 Body height 163.83 cm Gino Paco Other [employer] Other 11-30-2021 11:20-0400 Body mass index (BMI) [Ratio] 28.12 kg/m2 Gino Paco Other [employer] Other 11-30-2021 11:20-0400 Body temperature 97.2 [degF] Gino Paco Other [employer] Other 11-30-2021 11:20-0400 Body weight 75.48 kg Gino Paco Other [employer] Other 11-30-2021 11:20-0400 Diastolic blood pressure 69 mm[Hg] Gion Paco Other [employer] Other 11-30-2021 11:20-0400 Respiratory rate 18 /min Gino Paco Other [employer] Other 11-30-2021 11:20-0400 SaO2% (BldA) [Mass fraction] 98 % Gino Paco Other [employer] Other 11-30-2021 11:20-0400 Systolic blood pressure 112 mm[Hg] Gino Paco Other [employer] Other 11-12-2021 11:54-0400 Body height 160 cm Atif Mendez MD Work Phone: [facility] 11-12-2021 11:54-0400 Body temperature 97.39 [degF] Atif Mendez MD Work Phone: [facility] 11-12-2021 11:54-0400 Body weight 78.47 kg Atif Mendez MD Work Phone: [facility] 11-12-2021 11:54-0400 Diastolic blood pressure 63 mm[Hg] Atif Mendez MD Work Phone: [facility] 11-12-2021 11:54-0400 Heart rate 62 /min Atif Mendez MD Work Phone: [facility] 11-12-2021 11:54-0400 SaO2% (BldA) [Mass fraction] 98 % Atif Mendez MD Work Phone: [facility] 11-12-2021 11:54-0400 Systolic blood pressure 140 mm[Hg] Atif Mendez MD Work Phone: [facility] 10-01-2021 10:31-0400 Body height 165.1 cm Atif Mendez MD Work Phone: [facility] 10-01-2021 10:31-0400 Body weight 80.74 kg Atif Mendez MD Work Phone: [facility] 10-01-2021 10:31-0400 Diastolic blood pressure 57 mm[Hg] Atif Mendez MD Work Phone: [facility] 10-01-2021 10:31-0400 Heart rate 70 /min Atif Mendez MD Work Phone: [facility] 10-01-2021 10:31-0400 SaO2% (BldA) [Mass fraction] 97 % Atif Mendez MD Work Phone: [facility] 10-01-2021 10:31-0400 Systolic blood pressure 122 mm[Hg] Atif Mendez MD Work Phone: [facility] 06-02-2021 12:00-0500 Body height 163.83 cm Gino Paco Other [employer] Other 06-02-2021 12:00-0500 Body mass index (BMI) [Ratio] 30.28 kg/m2 Gino Paco Other [employer] Other 06-02-2021 12:00-0500 Body temperature 96.6 [degF] Gino Paco Other [employer] Other 06-02-2021 12:00-0500 Body weight 81.29 kg Gino Paco Other [employer] Other 06-02-2021 12:00-0500 Diastolic blood pressure 61 mm[Hg] Gino Paco Other [employer] Other 06-02-2021 12:00-0500 Respiratory rate 18 /min Gino Paco Other [employer] Other 06-02-2021 12:00-0500 SaO2% (BldA) [Mass fraction] 98 % Gino Paco Other [employer] Other 06-02-2021 12:00-0500 Systolic blood pressure 125 mm[Hg] Gino Paco Other [employer] Other Encounters Encounter Date Encounter Type Care Provider Facility Start: 04-04-2024 End: 04-04-2024 Bamboo flowsheet Heather Bang MD Work Phone: [facility] Start: 04-04-2024 End: 04-04-2024 Bamboo flowsheet Heather Bang MD Work Phone: [facility] Start: 04-04-2024 End: 04-04-2024 Office outpatient new 45 minutes Heather Bang MD Work Phone: [facility] Comment on above: Allergic rhinitis du e to dust (Primary Dx); Allergic contact dermatitis due to metals Start: 04-04-2024 End: 04-04-2024 ambulatory HEATHER BANG Not Available Start: 04-02-2024 End: 04-02-2024 Bamboo flowsheet Heather Bang MD Work Phone: [facility] Start: 04-02-2024 End: 04-02-2024 Bamboo flowskristopher Bang MD Work Phone: [facility] Start: 04-02-2024 End: 04-02-2024 ambulatory HEATHER BANG Not Available Start: 04-02-2024 End: 04-02-2024 Patient encounter procedure Heather Bang MD Work Phone: [facility] Comment on above: Primary osteoarthrit is of right knee Start: 03-21-2024 End: 03-21-2024 Office outpatient visit 25 minutes Mireille Zurita MD Work Phone: [facility] Comment on above: Status post cervical spinal fusion (Primary Dx); Full incontinence of feces Start: 03-21-2024 End: 03-21-2024 ambulatory [facility] Start: 03-16-2024 End: 03-16-2024 ambulatory [facility] Start: 03-16-2024 End: 03-16-2024 Subsequent hospital visit by physician Gabby Mathis110 X-Ray 2 [facility] Office Building Comment on above: Status post cervical spinal fusion Start: 03-08-2024 End: 03-08-2024 ambulatory MD Imer Purcell Work Phone: [facility] Work Phone: Start: 03-08-2024 End: 03-08-2024 Patient encounter procedure MD Imer Purcell Work Phone: [facility] Work Phone: Start: 03-08-2024 End: 03-08-2024 Patient encounter procedure MD Imer Purcell Work Phone: [facility] [address] Work Phone: Start: 03-08-2024 End: 03-08-2024 ambulatory MD Imer Purcell Work Phone: [facility] Work Phone: Start: 03-06-2024 Non-patient / Non-visit MD Femi Purcell Work Phone: [facility] Gastroenterology Work Phone: Start: 03-06-2024 End: 03-06-2024 Admission to same day surgery center MD Imer Purcell Work Phone: [facility] Work Phone: Start: 03-06-2024 End: 03-06-2024 ambulatory MD Imer Purcell Work Phone: [facility] Work Phone: Start: 03-05-2024 End: 03-05-2024 Telephone encounter Denise Patel MA [facility] Start: 03-01-2024 End: 03-01-2024 Bamboo flowsheet Estelle BENSON Work Phone: [facility] Start: 03-01-2024 End: 03-01-2024 Bamboo flowsheet Estelle BENSON Work Phone: [facility] Start: 03-01-2024 End: 03-01-2024 Patient encounter procedure Estelle BENSON Work Phone: [facility] Comment on above: Primary osteoarthrit is of right knee (Primary Dx); Pre-op examination Start: 03-01-2024 End: 03-01-2024 Preprocedural examination done Estelle BENSON Work Phone: [facility] Start: 03-01-2024 End: 03-01-2024 ambulatory ESTELLE PEREZ Not Available Start: 02-13-2024 End: 02-13-2024 Champ Knapp DO Work Phone: [facility] Start: 02-13-2024 End: 02-13-2024 Champ Knapp DO Work Phone: [facility] Start: 02-13-2024 End: 02-13-2024 Office outpatient visit 25 minutes Kiersten Rush Knapp DO Work Phone: [facility] Comment on above: Primary osteoarthrit is of right knee (Primary Dx); Acute pain of right knee Start: 02-13-2024 End: 02-13-2024 ambulatory JR. RUSH KNAPP Not Available Start: 02-03-2024 ambulatory Facility:[facility] Start: 01-24-2024 End: 01-24-2024 ambulatory MD Imer Purcell Work Phone: [facility] Work Phone: Start: 01-24-2024 End: 01-24-2024 Patient encounter procedure MD Imer Purcell Work Phone: [facility] Nephrology [place] Work Phone: Start: 01-19-2024 End: 01-19-2024 Patient encounter procedure MD Imer Purcell Work Phone: [facility] [place] Work Phone: Start: 01-19-2024 End: 01-19-2024 ambulatory MD Imer Purcell Work Phone: [facility] Work Phone: Start: 01-12-2024 End: 01-13-2024 Refill Freda Pop APRN.[facility] Work Phone: General Surgery Comment on above: Refill Request Start: 12-08-2023 End: 12-08-2023 Patient encounter procedure MD Imer Purcell Work Phone: [facility] Work Phone: Start: 12-08-2023 End: 12-08-2023 ambulatory MD Imer Purcell Work Phone: [facility] Work Phone: Start: 10-19-2023 End: 10-19-2023 Office outpatient visit 25 minutes Mireille Zurita MD Work Phone: [facility] Comment on above: Status post cervical spinal fusion (Primary Dx) Start: 10-19-2023 End: 10-19-2023 ambulatory [facility] Start: 10-13-2023 End: 10-13-2023 Subsequent hospital visit by physician Gabby X-Ray 1 [facility] Comment on above: Cervical spondylosis with myelopathy Start: 10-13-2023 End: 10-13-2023 ambulatory [facility] Start: 10-11-2023 Refill Freda Pop APRN.CNP Work Phone: General Surgery Comment on above: Refill Request Start: 06-16-2023 End: 06-16-2023 Postop follow up visit related to original px Mireille Zurita MD Work Phone: [facility] Comment on above: 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 Start: 03-23-2023 Encounter for other preprocedural examination MIREILLE Jorge [facility] Start: 03-21-2023 End: 03-23-2023 Encounter for other preprocedural examination [facility] Start: 03-21-2023 End: 03-23-2023 Evaluation and management of inpatient Mireille Zurita MD Work Phone: [facility] 2 Comment on above: Spine disorder [...] [facility] Work Phone: Start: 03-14-2023 End: 03-14-2023 Subsequent hospital visit by physician Par X-Ray 5 [facility] Comment on above: Cervical spondylosis with myelopathy Start: 03-14-2023 End: 03-28-2023 ambulatory MIREILLE ZURITA [facility] Start: 03-14-2023 End: 03-14-2023 Subsequent hospital visit by physician [facility] Comment on above: Cervical spondylosis with myelopathy Start: 03-14-2023 End: 03-14-2023 ambulatory IMER PURCELL [facility] Start: 02-01-2023 End: 02-01-2023 ambulatory Gino Barbosa Other [employer] Other Start: 02-01-2023 Office outpatient vi sit 25 minutes Gino Barbosa [facility] Start: 01-20-[address] Imer Purcell Facility:[id number] Start: 01-20-2023 Office outpatient vi sit 15 minutes Imer Purcell Work Phone: AU-Axftcyupfwhm-Spyzwszqj [facility] [address] Work Phone: Start: 12-07-2022 Office outpatient ne w 45 minutes Imer Purcell Work Phone: JT-Ufgopblplutz-Lzbzdtphw g [facility] Work Phone: Start: 12-07-2022 ambulatory MIREILLE YUDITH Facility :[id number] Start: 08-03-2022 Office outpatient vi sit 15 minutes Keagan Chadwick [facility] Start: 08-03-2022 End: 08-03-2022 ambulatory MD Imer Purcell Work Phone: [facility] Work Phone: Start: 08-03-2022 End: 08-03-2022 Patient encounter procedure MD Imer Purcell Work Phone: [facility] [address] Work Phone: Start: 07-30-2022 End: 07-30-2022 ambulatory MD Imer Purcell Work Phone: [facility] Work Phone: Start: 07-30-2022 End: 07-30-2022 Patient encounter procedure MD Imer Purcell Work Phone: [facility] Work Phone: Start: 07-27-2022 End: 07-27-[address] IMER PURCELL . Facility: Start: 07-22-2022 Office outpatient vi sit 15 minutes Keagan Chadwick [facility] Start: 07-22-2022 End: 07-22-2022 ambulatory MD Imer Purcell Work Phone: [facility] Work Phone: Start: 07-22-2022 End: 07-22-2022 Patient encounter procedure MD Imer Purcell Work Phone: [facility] [address] Work Phone: Start: 07-21-2022 End: 07-22-2022 ambulatory MRAIKA ALBERTINA Facility:H1 Start: 06-24-2022 End: 06-25-[address] IMER PURCELL . Facility:H1 Start: 06-16-2022 End: 06-16-2022 ambulatory Gino Paco Other [facility] Other Start: 06-16-2022 Office outpatient vi sit 25 minutes Gino Paco [facility] Start: 06-08-2022 End: 06-08-2022 ambulatory MD Imer Purcell Work Phone: [facility] Work Phone: Start: 06-08-2022 End: 06-08-2022 Patient encounter procedure MD Imer Purcell Work Phone: [facility] Work Phone: Start: 05-27-2022 End: 05-27-2022 ambulatory FREDA POP Facility:[facility] Start: 05-27-2022 End: 05-27-2022 ambulatory Freda Pop CASE MANAGEMENT SPECIALIST.DIRECTOR CASE Work Phone: General Surgery Comment on above: S/P repair of paraes ophageal hernia (Primary Dx); Long-term current use of proton pump inhibitor therapy Start: 05-27-2022 End: 05-27-2022 Telemedicine consultation with patient Freda Pop CASE MANAGEMENT SPECIALIST.DIRECTOR CASE Work Phone: [facility] Start: 05-17-2022 End: 05-18-2022 ambulatory GINO PACO Facility:H1 Start: 05-12-[address] IMER PURCELL . Facili ty:H1 Start: 05-04-2022 End: 05-05-[address] IMER PURCELL . Facility:H1 Start: 04-08-2022 End: 04-08-2022 Admission to same day surgery center MD Imer Purcell Work Phone: [facility] Start: 04-08-2022 End: 04-08-2022 ambulatory MD Imer Purcell Work Phone: [facility] Work Phone: Start: 03-23-2022 End: 03-23-2022 ambulatory Keagan Chadwick Other [employer] Other Start: 03-23-2022 Office outpatient vi sit 15 minutes Keagan Chadwick [facility] Start: 03-22-2022 End: 03-22-2022 Patient encounter procedure MD Imer Purcell Work Phone: [facility] [address] Start: 03-16-2022 End: 03-16-2022 ambulatory Ziyad Ngo Other [facility] Other Start: 03-16-2022 Telephone encounter Ziyad TREVIÑO [employer] Start: 02-11-2022 End: 02-11-2022 ambulatory Keagan Chadwick Other [employer] Other Start: 02-11-2022 Office outpatient vi sit 15 minutes Keagan Chadwick [facility] Start: 02-10-2022 End: 02-10-2022 ambulatory MD Imer Purcell Work Phone: [facility] Work Phone: Start: 02-10-2022 End: 02-10-2022 Patient encounter procedure MD Imer Purcell Work Phone: [facility] [address] Start: 02-08-2022 End: 02-08-[address] IMER PURCELL . Facility:H1 Start: 01-27-2022 End: 01-27-[address] IMER PURCELL . Facility:H1 Start: 01-26-2022 End: 01-27-[address] IMER PURCELL . Facility:H1 Start: 01-25-2022 End: 02-15-[address] IMER PURCELL . Facility:H1 Start: 01-07-2022 End: 01-07-[address] IMER PURCELL . Facility:H1 Start: 12-23-2021 End: 12-23-2021 ambulatory FREDA POP Facility:[facility] Start: 12-03-2021 End: 12-03-2021 ambulatory Freda Pop APRN.DIRECTOR CASE Work Phone: General Surgery Comment on above: S/P repair of paraes ophageal hernia (Primary Dx); Paraesophageal hernia Start: 12-03-2021 End: 12-03-2021 Telemedicine consultation with patient Freda Pop APRN.DIRECTOR CASE Work Phone: [facility] Start: 11-30-2021 End: 11-30-2021 ambulatory Gino Paco Other [facility] Other Start: 11-30-2021 Office outpatient vi sit 25 minutes Gino Paco [facility] Nephrology Start: 11-26-2021 End: 11-27-2021 ambulatory GINO PACO [facility] Other Start: 11-26-2021 Telephone encounter Keagan Chadwick [facility] Start: 11-18-2021 ambulatory Atif Mendez MD [...] Start: 11-06-2021 End: 11-06-2021 ambulatory DOROTHY SPARROW Facility:[facility] Start: 11-04-2021 ambulatory Atif Mendez MD Work Phone: General Surgery Comment on above: Updated Medical hist ory Start: 11-03-2021 Telephone encounter Atif esposito MD Work Phone: [facility] Comment on above: Orders Start: 11-03-2021 End: 11-03-2021 ambulatory IMER PURCELL Facility:[facility] Start: 11-03-2021 Encounter for other preprocedural examination MONIKA GUERRERO [facility] Start: 10-23-2021 Telephone encounter Atif esposito MD Work Phone: General Surgery Comment on above: Request Outside [facility] Records Start: 10-21-2021 End: 10-21-2021 ambulatory MONIKA GUERRERO Facility:[facility] Start: 10-21-2021 End: 10-21-2021 Subsequent hospital visit by physician Arrival Time Radiology Work Phone: Radiology [facility] Comment on above: Paraesophageal herni a [K44.9] Start: 10-06-2021 End: 10-06-2021 ambulatory Jorge Ramirez Other [employer] Other Start: 10-06-2021 Telephone encounter Jorge Smith [facility] Start: 10-02-2021 End: 10-02-2021 ambulatory Jorge Ramirez Other [employer] Other Start: 10-02-2021 Telephone encounter Jorge Smith [facility] Start: 10-01-2021 End: 10-01-2021 ambulatory MONIKA GUERRERO Facility:[facility] Start: 10-01-2021 End: 10-01-2021 Patient encounter procedure Atif Mendez MD Work Phone: General Surgery Comment on above: Paraesophageal herni a (Primary Dx) Start: 09-03-2021 Telephone encounter Atif esposito MD Work Phone: General Surgery Comment on above: Received Outside [facility] Records Start: 08-25-2021 End: 08-25-2021 ambulatory Jorge Ramirez Other [employer] Other Start: 08-25-2021 Telephone encounter Jorge Smith [facility]astroenter[facility] Start: 08-12-2021 End: 08-12-2021 ambulatory Jorge Ramirez Other [employer] Other Start: 08-12-2021 Telephone encounter Jorge TREVIÑO G Gastroenter[facility] Start: 06-02-2021 End: 06-02-2021 ambulatory Gino Paco Other [employer] Other Start: 06-02-2021 Office outpatient vi sit 25 minutes Gino Paco [facility] Start: 01-12-2017 End: 01-13-2017 Ambulatory MUJEEB Darya YODER Facility:[facility] Start: 01-07-2017 End: 01-08-2017 Ambulatory DEFAULT PHYSICIAN Facility:[facility] Procedures Date Procedure Procedure Detail Performing Clinician Start: 03-08-2024 MR lumbar spine wo con MD Imer Purcell Work Phone: Start: 03-08-2024 XR pre/post mri xray MD Imer Purcell Work Phone: Start: 03-06-2024 Esophagogastroduodenoscopy MD Imer john Work Phone: Start: 02-13-2024 Radiologic examination knee 1/2 views Jr. Rush Knapp DO Work Phone: Start: 01-19-2024 Bacteria identified in Urine by Culture MD Imer Purcell Work Phone: Start: 01-19-2024 Urine culture MD Imer Purcell Work Phone: Start: 12-08-2023 Screening mammography of bilateral breasts MD Imer Purcell Work Phone: Start: 06-09-2023 XR CERVICAL SPINE 2-3 VIEWS MIREILLE GARIBAY ON Start: 06-09-2023 Radex spine cervical 2 or 3 views Mireille Zurita MD Work Phone: Start: 05-05-2023 XR CERVICAL SPINE 2-3 VIEWS MIREILLE GARIBAY ON Start: 03-28-2023 ECG 12-LEAD IMER PURCELL Start: 03-28-2023 Ecg routine ecg w/least 12 lds trcg only w/o i&r Mireille Zurita MD Work Phone: Start: 03-23-2023 DISCHARGE PATIENT IMER HOY Start: 03-23-2023 Basic metabolic 2000 panel - Serum or Plasma IMER HOY Start: 03-23-2023 CBC panel - Blood by Automated count IMER HOY Start: 03-23-2023 Basic metabolic panel calcium total Albert Zurita MD Work Phone: Start: 03-22-2023 Basic metabolic 2000 panel - Serum or Plasma IMER HOY Start: 03-22-2023 CBC panel - Blood by Automated count IMER HOY Start: 03-22-2023 XR CERVICAL SPINE 2-3 VIEWS IMER HOY Start: 03-22-2023 Basic metabolic panel calcium total Albert Zurita MD Work Phone: Start: 03-22-2023 Radex spine cervical 2 or 3 views Mary Flynn Shirley CASE MANAGEMENT SPECIALIST-MUSCULOSKELETAL PHYSICIAN Work Phone: Start: 03-21-2023 IP CONSULT TO MEDICINE IMER HOY Start: 03-21-2023 PT EVAL AND TREAT IMER HOY Start: 03-21-2023 ADMIT TO INPATIENT IMER HOY Start: 03-21-2023 PULSE OXIMETRY, CONTINUOUS IMER HOY Start: 03-21-2023 XR CERVICAL SPINE 1 VIEW IMER HOY Start: 03-21-2023 End: 03-21-2023 PULSE OXIMETRY, CONTINUOUS Valeriu Melinda lewis MD Work Phone: Start: 03-21-2023 Radex spine 1 view specify level Mireille Zurita MD Work Phone: Start: 03-21-2023 XR CERVICAL SPINE 1 VIEW IMER HOY Start: 03-21-2023 Radex spine 1 view specify level Mireille Zurita MD Work Phone: Start: 03-21-2023 XR CERVICAL SPINE 1 VIEW IMER HOY Start: 03-21-2023 ADMIT TO INPATIENT IMER HOY Start: 03-21-2023 End: 03-21-2023 Radex spine 1 view specify level Mirielle Zurita MD Work Phone: Start: 03-21-2023 End: 03-21-2023 Fusion Spine Anterior Cervical and Discectomy Mireille Zurita MD Work Phone: Start: 03-14-2023 XR CHEST 2 VIEWS IMER PURCELL Start: 03-14-2023 STAPHYLOCOCCUS AUREUS/MRSA COLONIZATION, CULTURE IMER PURCELL Start: 03-14-2023 CBC panel - Blood by Automated count IMER PURCELL Start: 03-14-2023 COAGULATION SCREEN IMER PURCELL Start: 03-14-2023 Comprehensive metabolic 2000 panel - Serum or Plasma IMER PURCELL Start: 03-14-2023 Phosphate [Mass/volume] in Serum or Plasma IMER PURCELL Start: 03-14-2023 Radiologic exam chest 2 views Mireille duong MD Work Phone: Start: 03-14-2023 Cul prsmptv pthgnc organism scrn w/colony estimj Mireille Zurita MD Work Phone: Start: 03-14-2023 Comprehensive metabolic panel Mireille duong MD Work Phone: Start: 08-03-2022 MRI of right knee MD Imer Purcell Work Phone: Start: 08-03-2022 XR pre/post mri xray MD Imer Purcell Work Phone: Start: 07-30-2022 Dual energy X-ray absorptiometry MD David Purcell Work Phone: Start: 07-30-2022 Screening mammography of bilateral breasts MD Imer Purcell Work Phone: Start: 07-22-2022 XR pre/post mri xray MD Imer Purcell Work Phone: Start: 07-22-2022 MRI of head MD Imer Purcell Work Phone: Start: 04-08-2022 End: 04-08-2022 Colonoscopy MD Imer Purcell Work Phone: Start: 03-22-2022 MRI of cervical spine without contrast MD Imer Purcell Work Phone: Start: 03-22-2022 XR pre/post mri xray MD Imer Purcell Work Phone: Start: 02-10-2022 XR pre/post mri xray MD Imer Purcell Work Phone: Start: 02-10-2022 X-ray of skull MD Imer Purcell Work Phone: Start: 02-10-2022 MR lumbar spine wo con MD Imer Purcell Work Phone: Start: 10-21-2021 Ct abdomen & pelvis w/contrast material Atif Mendez MD Work Phone: Start: 10-21-2021 CREATININE BLD Atif Mendez MD Work Phone: Plan of Treatment Date Care Activity Detail Author Start: 04-08-2032 Screening for malign ant neoplasm of [facility] Start: 11-21-2027 RSV Vaccine (1 - 1-d ose 75+ series) RSV Vaccine (1 - 1-dose 75+ series) [facility] Start: 11-17-2024 DIABETES SCREEN DIABETES SCREEN [facility] Start: 11-17-2024 Diabetes Screening Diabetes Screenin g [facility] Start: 11-03-2024 DIABETES SCREEN DIABETES SCREEN [facility] Start: 05-21-2024 End: 05-21-2024 Patient encounter procedure 05/21/2024 10:20 AM EST Office Visit [facility] [address] [facility] [place] [id number] Heather Bang MD [address] [place] [address] [facility] Start: 05-16-2024 End: 05-16-2024 Patient encounter procedure 05/16/2024 11:00 AM EST Office Visit [facility] [address] [place] [phone] Heather Bang MD [address] [place] [address] [facility] Start: 05-14-2024 End: 05-14-2024 Patient encounter procedure [facility] Start: 04-19-2024 End: 10-18-2024 XR Cervical spine 2 or 3 Views XR cervical spine 2-3 views Imaging Routine Status post cervical spinal fusion Expected: 04/19/2024, Expires: 10/18/2024 [facility] Service Area Work Phone: Comment on above: Expected: 04/19/2024 , Expires: 10/18/2024 Start: 04-09-2024 End: 04-09-2024 Patient encounter procedure 04/09/2024 10:00 AM EST Office Visit [facility] [address] [place] [phone] Heather Bang MD [address] [place] [address] [facility] Start: 04-04-2024 End: 04-04-2024 Patient encounter procedure [facility] Comment on above: Arrived Start: 03-29-2024 End: 03-29-2024 Patient encounter procedure 03/29/2024 10:00 AM EST Office Visit [facility] [address] [place] [address] Estelle Perez PA [address] [facility] [address] [place] [address] [facility] Start: 03-21-2024 End: 03-21-2024 Patient encounter procedure 03/21/2024 11:00 AM EST Office Visit [facility] [address] [place] [address] [address] [place] [address] Mireille Zurita MD [address] [place], [place] [phone] [facility] Start: 03-08-2024 MR lumbar spine wo con MR lumbar spi ne wo con [facility] Start: 03-08-2024 MR Lumbar spine WO contrast [facility] Start: 03-08-2024 XR pre/post mri xray XR pre/post mri xray [facility] Start: 03-08-2024 [facility] Start: 03-06-2024 End: 03-06-2024 [facility] Start: 03-01-2024 End: 03-01-2024 Patient encounter procedure 03/01/2024 11:15 AM EDT Office Visit [facility] [address] [place] [phone] Estelle Perez PA [address] [facility] [address] [place] [address] Primary osteoarthritis of right knee (Primary Dx); Pre-op examination [facility] Comment on above: Primary osteoarthrit is of right knee (Primary Dx); Pre-op examination Start: 02-21-2024 DTaP/Tdap/Td Vaccine s (2 - Td or Tdap) DTaP/Tdap/Td Vaccines (2 - Td or Tdap) [facility] Start: 02-21-2024 Urine microalbumin profile DTaP,Tdap,Td Vaccine (2 - Td or Tdap) [facility] Start: 02-13-2024 End: 02-13-2024 Patient encounter procedure 02/13/2024 11:00 AM EDT Office Visit [facility] [address] [place] [address] Jr. Rush Knapp DO [address] [facility] [address] [place] [address] Arrived [facility] Comment on above: Arrived Start: 01-19-2024 Bacteria identified in Urine by Culture [facility] Start: 01-08-2024 Covid-19 Vaccine ( season) Covid-19 Vaccine ( season) [facility] Start: 01-08-2024 Covid-19 Vaccine ( season) Covid-19 Vaccine ( season) [facility] Start: 01-08-2024 Influenza vaccination C [facility] Start: 10-19-2023 End: 10-19-2023 Patient encounter procedure 10/19/2023 11:30 AM EDT Office Visit [facility] [address] [phone] Mireille Zurita MD [address] [place] [address] [facility] Start: 06-16-2023 End: 06-16-2023 Patient encounter procedure 06/16/2023 10:30 AM EST Office Visit [address] [phone] Mireille Zurita MD [address] [place] [address] [facility] Start: 06-10-2023 End: 05-10-2024 XR Cervical spine 2 or 3 Views XR cervical spine 2-3 views Imaging Routine 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 stenosis of cervical region ([facility]/HCC) Expected: 06/10/2023, Expires: 05/10/2024 [facility] Service Area Work Phone: Comment on above: Expected: 06/10/2023 , Expires: 05/10/2024 Start: 05-12-2023 End: 05-12-2023 Patient encounter procedure 05/12/2023 8:30 AM EST Office Visit [address] [phone] Mireille Zurita MD [address] [place] [address] [facility] Start: 05-09-2023 Advance Directive Discussion Advance Directive Discussion [facility] Start: 05-09-2023 Behavioral Health Screening Behavioral Health Screening [facility] Start: 04-07-2023 End: 04-07-2023 Patient encounter procedure 04/07/2023 1:00 PM EST Office Visit [address] [phone] Araseli Faustin, CASE MANAGEMENT SPECIALIST-DIRECTOR CASE [address] [place] [address] [facility] Start: 03-21-2023 End: 03-21-2023 Admission to same day surgery center 03/21/2023 7:30 AM EST - 03/21/2023 1:00 PM EST Surgery [facility] [place] [address] [place] [phone] Mireille Zurita MD [address] [place] [address] C3-4, C4-5, C5-6, C6-7 ANTERIOR DISC EXCISION/ ALLOGRAFT FUSION & PLATE FIXATION WITH FLAT PLATE CERVICAL X-RAY [facility] OR Comment on above: C3-4, C4-5, [...] physician 03/21/2023 6:00 AM EST Hospital Encounter [facility] [place] [address] [place] [phone] Mireille Zurita MD [address] [place] [address] Preop testing (Primary Dx); Cervical spondylosis with myelopathy; Coagulation defect, unspecified (CMS/HCC) [facility] Comment on above: Preop testing (Prima ry Dx); Cervical spondylosis with myelopathy; Coagulation defect, unspecified (CMS/HCC) Start: 01-20-2023 FUV, Provider: Mireille Zurita, Status: Pen, Time: 1:30 PM FUV, Provider: Mireille Zurita, Status: Pen, Time: 1:30 PM [facility] [address] [address] Work Phone: Start: 01-07-2023 Covid-19 Vaccine ( season) Covid-19 Vaccine () [facility] Start: 01-07-2023 COVID-19 Vaccine () COVID-19 Vaccine () [facility] Start: 11-17-2022 Creatinine measurement Serum Creatin ine [facility] Start: 11-17-2022 SERUM CREATININE SERUM CREATININE Cl [facility] Start: 11-03-2022 HEMOGLOBIN/HEMATOCRIT HEMOGLOBIN/HEM ATOCRIT [facility] Start: 11-03-2022 SERUM CREATININE SERUM CREATININE Cl [facility] Start: 07-31-2022 COVID-19 Vaccine (4 - Moderna series) COVID-19 Vaccine (4 - Moderna series) [facility] Start: 07-22-2022 XR pre/post mri xray XR pre/post mri xray [facility] Start: 07-22-2022 [facility] Start: 05-09-2022 ADVANCE DIRECTIVE DISCUSSION ADVANCE DIRECTIVE DISCUSSION [facility] Start: 05-09-2022 DEPRESSION ASSESSMENT DEPRESSION ASS ESSMENT [facility] Start: 04-08-2022 [facility] Start: 01-07-2022 Influenza vaccination C [facility] Start: 10-01-2021 End: 12-01-2021 CREATININE BLD CREATININE BLD Lab Routine Paraesophageal hernia Expected: 10/01/2021, Expires: 12/01/2021 [facility] Work Phone: Comment on above: Expected: 10/01/2021 , Expires: 12/01/2021 Start: 07-09-2021 COVID-19 VACCINE (4 - Booster for Moderna series) COVID-19 VACCINE (4 - Booster for Moderna series) [facility] Start: 05-09-2021 ADVANCE DIRECTIVE DISCUSSION ADVANCE DIRECTIVE DISCUSSION [facility] Start: 05-06-2021 COVID-19 VACCINE (4 - Booster for Moderna series) COVID-19 VACCINE (4 - Booster for Moderna series) [facility] Start: 2017 BONE DENSITY BONE DENSITY [facility] Start: 2017 Pneumococcal Vaccine : 65+ (1 of 1 - PCV) Pneumococcal Vaccine: 65+ (1 of 1 - PCV) [facility] Start: 2017 Pneumococcal Vaccine : 65+ Years (1 - PCV) Pneumococcal Vaccine: 65+ Years (1 - PCV) [facility] Start: 2017 Pneumococcal Vaccine : 65+ Years (1 of 1 - PCV) Pneumococcal Vaccine: 65+ Years (1 of 1 - PCV) [facility] Start: 2017 PNEUMOCOCCAL: 65+ (1 - PCV) PNEUMOCOCCAL: 65+ (1 - PCV) [facility] Start: 2017 PNEUMOVAX AGE 65 AND OVER WITH 5YR LOOKBACK (#1) PNEUMOVAX AGE 65 AND OVER WITH 5YR LOOKBACK (#1) [facility] Start: 2017 Screening for osteoporosis Bone Density Screening [facility] Start: 03-07-2016 DIABETES SCREEN DIABETES SCREEN [facility] Start: 04-17-2014 Shingrix Vaccine (2 of 3) Shingrix Vaccine (2 of 3) [facility] Start: 04-17-2014 Zoster Vaccines (2 of 3) Zoste r Vaccines (2 of 3) [facility] Start: 2012 RSV Vaccine (1 - 1-d ose 60+ series) RSV Vaccine (1 - 1-dose 60+ series) [facility] Start: 2002 SHINGRIX VACCINE (1 of 2) SHINGRIX VACCINE (1 of 2) [facility] Start: 1997 COLOGUARD (FIT-DNA) COLOGUARD (FIT-D NA) [facility] Start: 1997 Colonoscopy COLONOSCOPY [facility] Start: 1997 COLORECTAL CANCER SCREENING COLORECTAL CANCER SCREENING [facility] Start: [address] COLONOGRAPHY [facility] Start: 1997 FECAL OCCULT BLOOD FECAL OCCULT BLOO D [facility] Start: 1997 Lipid panel Lipid Screening [facility] Start: 1997 LIPID SCREEN LIPID SCREEN [facility] Start: 1997 Screening for malign ant neoplasm of colon [facility] Start: 1997 SIGMOIDOSCOPY SIGMOIDOSCOPY [facility] Start: 1992 Mammography MAMMOGRAM [facility] Start: 1992 Screening for malign ant neoplasm of breast [facility] Start: 11-21-1971 Urine microalbumin profile DTAP,TDAP,TD (1 - Tdap) [facility] Start: 11-21-1971 Urine screening for protein CKD: Urine Protein Screening [facility] Start: 1970 ANNUAL PCP TEAM CATTYMAN LENNY DISEASE VISIT ANNUAL PCP TEAM CHRONIC DISEASE VISIT [facility] Start: 1970 BP CONTROLLED (<130/80) BP CONTROLLE D (<130/80) [facility] Start: 1970 Depression Screening Depression Scre ening [facility] Start: 1970 Diabetes mellitus screening Diabetes Screening [facility] Start: 1970 HEPATITIS C SCREENING HEPATITIS C SC [facility] Start: 1970 Hepatitis C screening Hepatitis C [facility] Start: 1962 Adult depression screening assessment DEPRESSION SCREENING [facility] Start: 1957 COVID-19 VACCINE (1) COVID-19 VACCIN E (1) [facility] Start: 1950 Lipid panel Lipid Panel [facility] Start: 1950 Medicare Annual Well ness Visit Medicare Annual Wellness Visit (AWV) [facility] [...] Occurrences starting 03/22/2023 until 03/24/2023, 2 completed [facility] Service Area Work Phone: Comment on above: Morning draw (Lab) f or 3 Occurrences starting 03/22/2023 until 03/24/2023, 2 completed End: 10-31-2022 Ct abdomen & pelvis w/contrast material CT ABD/PEL W IVCON Radiology Routine Paraesophageal hernia 1 Occurrences starting 10/01/2021 until 10/31/2022 [facility] Work Phone: Comment on above: 1 Occurrences starti ng 10/01/2021 until 10/31/2022 End: 09-28-2022 Esophageal motility study w/interp&rpt MANOMETRY ESOPHAGEAL Endoscopy Routine Paraesophageal hernia 1 Occurrences starting 10/01/2021 until 09/28/2022 [facility] Work Phone: Comment on above: 1 [...] 8p until discontinued starting 03/21/2023 Patient Education [facility] Work Phone: Renal function 2000 panel - Serum or Plasma [facility] End: 03-22-2023 Urethral Catheter Removal Urethral Catheter Removal Procedures Routine Once for 1 Occurrences starting 03/22/2023 until 03/22/2023 [facility] Service Area Work Phone: Comment on above: Once for 1 Occurrenc es starting 03/22/2023 until 03/22/2023 End: 06-09-2023 XR Cervical spine 2 or 3 Views [facility] Service Area Work Phone: Comment on above: Once for 1 Occurrenc es starting 06/09/2023 until 06/09/2023 End: 10-13-2023 XR Cervical spine 2 or 3 Views [facility] Service Area Work Phone: Comment on above: Once for 1 Occurrenc es starting 10/13/2023 until 10/13/2023 End: 03-16-2024 XR Cervical spine 2 or 3 Views [facility] Service Area Work Phone: Comment on above: Once for 1 Occurrenc es starting 03/16/2024 until 03/16/2024 End: 03-14-2023 XR Chest 2 Views [facility] Work Phone: Comment on above: Once for 1 Occurrenc es starting 03/14/2023 until 03/14/2023 End: 10-31-2022 XR UPPER GI SINGLE CONTRAST XR UPPER GI SINGLE CONTRAST Radiology Routine Paraesophageal hernia 1 Occurrences starting 10/01/2021 until 10/31/2022 [facility] Work Phone: Comment on above: 1 Occurrences starti ng 10/01/2021 until 10/31/2022 [facility] Clini [facility] Immunizations Immunization Date Immunization Notes Care Provider [facility] 02-22-2024 influenza virus vaccine, unspecified formulation Estelle Perez [place] Work Phone: [facility] 03-02-2023 influenza virus vaccine, unspecified formulation Par 5 [facility] Work Phone: 03-02-2023 Respiratory Synctial Virus (Rsv), Unspecified Par 5 [facility] Work Phone: 06-05-2022 Moderna COVID-19 Biv al Booster 50 MCG/0.5ML Intramuscular Suspension Imer Purcell Work Phone: [facility] Work Phone: 05-06-2022 Fluad Quadrivalent 0 .5 ML Intramuscular Prefilled Syringe Imer Purcell Work Phone: [facility] Work Phone: 05-06-2022 influenza virus vaccine, unspecified formulation Freda Pop APRN.DIRECTOR CASE Work Phone: [facility] 11-03-2021 COVID-19 mRNA-1273 (Moderna) MD Imer Purcell Work Phone: [facility] 08-10-2020 Moderna COVID-19 Vaccine 100 MCG/0.5ML Intramuscular Suspension Imer Purcell Work Phone: [facility] Work Phone: 08-08-2020 COVID-19 mRNA-1273 (Moderna) MD Imer Purcell Work Phone: [facility] 07-11-2020 COVID-19 mRNA-1273 (Moderna) MD Imer Purcell Work Phone: [facility] 02-18-2020 Seasonal trivalent influenza vaccine, adjuvanted, preservative free Imer Purcell Work Phone: [facility] Work Phone: 10-08-2015 influenza, seasonal, injectable Gino Paco Other [place] [facility] Other 02-20-2014 tetanus toxoid, redu olena diphtheria toxoid, and acellular pertussis vaccine, adsorbed Imer Purcell Work Phone: [facility] Work Phone: 02-20-2014 zoster vaccine, live Imer Purcell Work Phone: [facility] Work Phone: Payers Date Payer Category Payer Self-pay [id number] 2021 Medicare [id number] 2017 Medicare MEDICARE MEDICAR E A AND B [id number] 2017-Present [phone] [place] [address] Medicare [id number] .[id number] 2017 Medicare [id number] .[id number] 2017 Medicare supplementa l policy (as second payer) [employer] SENIOR SUPPLEMENT [id number] .[id number] 5 2017 Private Health Insurance A[employer]YOLA FOLEYNA MEDICARE SUPPLEMENT [id number] 2017-Present [phone] [address] [address] [place] [address] Indemnity [id number] [id number] .2.7.3.170121.315 2017 Private Health Insurance [id number] .[id number] .2.7.3.147110.315 1959 Medicare [id number] 2.16.840.1.629956.19 1959 Private Health Insurance [facility] [id number] 2.16.840.1.466180.19 1959 Self-pay [id number] 1952 Unknown [id number] 2.16.840.1.702399.3.579 .2.593 1952 Unknown [id number] 2.16.840.1.538277.3.579 .2.593 1952 Unknown [id number] 2.16.840.1.160147.3.579 .2.593 1952 Unknown [id number] 2.16.840.1.847419.3.579 .2.593 1952 Unknown [id number] 2.16.840.1.577048.3.579 .2.593 1952 Unknown [id number] 2.16.840.1.204308.3.579 .2.593 1952 Unknown [id number] 2.16.840.1.527830.3.579 .2.593 1952 Unknown [id number] 2.16.840.1.555846.3.579 .2.593 1952 Unknown [id number] 2.16.840.1.700618.3.579 .2.593 1952 Unknown [id number] 2.16.840.1.647719.3.579 .2.593 1952 Unknown [id number] 2.16.840.1.451995.3.579 .2.593 1952 Unknown [id number] 2.16.840.1.941976.3.579 .2.593 1952 Unknown [id number] 2.16.840.1.227664.3.579 .2.356 1952 Unknown [id number] 2.16.840.1.132487.3.579 .2.356 1952 Unknown [id number] 2.16.840.1.130874.3.579 .2.1259 1952 Unknown [id number] 2.16.840.1.459977.3.579 .2.1247 1952 Unknown [id number] 2.16.840.1.737997.3.579 .2.1247 1952 Unknown [id number] 2.16.840.1.367635.3.579 .2.1247 1952 Unknown [id number] 2.16.840.1.493815.3.579 .2.1247 1952 Unknown [id number] 2.16.840.1.652092.3.579 .2.727 1952 Unknown [id number] 2.16.840.1.595656.3.579 .2.1245 1952 Unknown [id number] 2.16.840.1.803122.3.579 .2.1245 1952 Unknown [id number] 2.16.840.1.800727.3.579 .2.1245 1952 Unknown [id number] 2.16.840.1.215189.3.579 .2.1245 1952 Unknown [id number] 2.16.840.1.118599.3.579 .2.1243 1952 Unknown [id number] 2..840.1.288228.3.579 .2.1243 1952 Unknown [id number] 2.16.840.1.053888.3.579 .2.1243 1952 Unknown [id number] 2.16.840.1.603569.3.579 .2.1243 1952 Unknown [id number] 2.16.840.1.051330.3.579 .2.1243 1952 Unknown [id number] 2.16.840.1.954562.3.579 .2.1258 1952 Unknown [id number] 2.16.840.1.413363.3.579 .2.1258 1952 Unknown [id number] 2.16.840.1.649115.3.579 .2.1258 1952 Unknown [id number] 2.16.840.1.697262.3.579 .2.1258 1952 Unknown [id number] 2.16.840.1.443377.3.579 .2.1259 Blue Cross Blue Shield [facility] [id number] Unknown Unknown [id number] 2.16.840.1.718598.3.579 .2.531 Unknown [id number] 2.16.840.1.991970.3.579 .2.531 Unknown [id number] 2.16.840.1.062387.3.579 .2.531 Unknown [id number] 2.16.840.1.585130.3.579 .2.531 Social History Date Type Detail Facility Start: 08-06-2021 End: 05-24-2023 Tobacco smoking status NHIS Never smoked tobacco [facility] Start: 11-16-2004 Alcohol intake Not Asked [facility] Start: 1950 Sex Assigned At Not on file [facility] History of tobacco use Chews Tobacco [facility] Start: 10-01-2021 End: 03-21-2024 Alcohol intake Current drinker of alcohol (finding) [facility] Start: 10-01-2021 History SDOH Alcohol Comment 1 drink monthly [facility] Start: 1950 Sex Assigned At Female [facility] Start: 09-21-2021 End: 03-21-2024 Exposure to SARS-CoV-2 (event) Not sure [facility] Start: 03-21-2023 End: 04-04-2024 Sex Assigned At [facility] Start: 12-23-2021 End: 05-24-2023 Tobacco use and exposure Smokeless tobacco non-user [facility] Tobacco smoking stat us WYIS Tobacco smoking consumption unknown [facility] Work Phone: Start: 03-22-2023 Tobacco use and exposure User of smokeless tobacco [facility] Work Phone: Start: 03-21-2023 End: 04-04-2024 History of Social function [facility] [...] Phone: Start: 03-22-2023 Alcohol Comment 1 drink/month [facility] Work Phone: How often to you hav e a drink containing alcohol? Monthly or less [facility] How many standard drinks containing alcohol do you have on a typical day? 1 or 2 [facility] Work Phone: Start: 09-24-2021 Gender identity Identifies as female gender (finding) [facility] Start: 09-24-2021 Sexual orientation Heterosexual (finding) [facility] Medical Equipment Procedure Code Equipment Code Equipment Origin al Text Equipment Identifier Dates Screw, Acp, Self Drill, 3.5 X 15mm, Variable - [id number] - [id number] Start: 03-21-2023 70 Mm 2.1 H Plate [id number] Start: 03-21-2023 Allograft, Triad Lordotic 7 X 11 X 14 - [id number] - [id number] Start: 03-21-2023 Allograft, Triad Lordotic 6 X 11 X 14 - [id number] - [id number] Start: 03-21-2023 Allograft, Triad Lordotic 7 X 11 X 14 - [id number] - [id number] Start: 03-21-2023 Allograft, Triad Lordotic 7 X 11 X 14 - [id number] - [id number] Start: 03-21-2023 Goals Date Patient Goal Desired Activity /State Personal health goal Clinical Notes 06-02-2021 to 04-04-2024 Heather Bang MD - 04/04/2024 10:00 AM Carlos Enrique Bang MD - 04/02/2024 10:00 AM Tahir Zurita MD - 03/21/2024 11:00 AM MARCELINO Razo - 03/01/2024 11:15 AM EDT Note Date & Type Note Facility 04-04-2024 History of Present illness Narrative She is scheduled for TKA in the near future. She had her surgery cancelled due to awaiting need for patch test. She reports that she has had an allergy to cheap jewelry in the past which would make her ears red and hot. She wears jeans and does not get a rash at the mana. She has had cervical fusion over 4 layers and and she was told that this might have some nickel in this. This was done one year ago and has been working well since that time without any signs of allergy. She had a sinus infection and was given Augmentin and fluconazole and prednisone. She took the prednisone last about 3 days ago. She has frequent nasal airway obstruction. Her symptoms are worse in the spring and fall. She has cat and dog at home but they are not triggers for her. Flonase helps a little. The patient appears comfortable in the office today. Lungs are clear to auscultation bilaterally. The oral mucosa is pink and healthy without any lesions or ulcers. The palate elevates in the midline. The nasal mucosa is pale and congested with a moderate amount of turbinate engorgement and clear rhinorrhea. No polyps or epistaxis is noted. The skin is clear of any rashes, lesions, or ulceration/excoriation. IMPRESSION: Allergic rhinoconjunctivitis - continue Flonase and add azelastine nasal spray to [facility] [place]. Allergic contact dermatitis - patch test in 1-4 weeks. I described the need to avoid oral steroids sun bathing and topical steroids for 2 weeks prior to patch testing and the need to avoid showering exercising and sweating heavily for 48 hours after application of the patch test. documented in this encounter [facility] 04-02-2024 History of Present illness Narrative The patient presents to the office today for patch testing. Patch testing was placed under direct physician supervision for the orthopedic metal contact dermatitis test series. The patient was given detailed instructions on how to care for this and we reviewed the importance of avoiding exercise, heavy sweating and showering for 48 hours. Follow-up was arranged in 2 days for removal of the patch test and the 1st patch test interpretation. She is scheduled for TKA in the near future. She had her surgery cancelled due to awaiting need for patch test. She reports that she has had an allergy to cheap jewelry in the past which would make her ears red and hot. She wears jeans and does not get a rash at the mana. She has had cervical fusion over 4 layers and and she was told that this might have some nickel in this. This was done one year ago and has been working well since that time without any signs of allergy. She had a sinus infection and was given Augmentin and fluconazole and prednisone. She took the prednisone last about 3 days ago. IMPRESSION - I let the patient know that her use of prednisone could interfere with her patch test so we agreed to repeat her patch testing in 2 weeks after she has been off of oral steroids for slightly longer period of time. documented in this encounter [facility] 03-21-2024 History of Present illness Narrative Images from the original note were not included. [facility] [place] Department of Neurological Surgery Established Patient Visit History of Present Illness Mary Goode is a 73 y.o. year old female who presents to the spine clinic in follow up with her 1 year set of x-rays following her 4 level anterior cervical disc excision with interbody fusion and plate fixation from C3-4, C4-5, C5-6, to C6-7. She is doing quite well with her neck and her arm function and even her walking. Her 2 main issues are her right knee which she is scheduled to have a knee replacement soon for and a new problem: Fecal incontinence. This has been present for a while but its gotten worse. She had a recent MRI of the lumbar spine which I do not have. It does state however that it is essentially unchanged from the MRI in 2021 . On the 2021 MRI there does not appear to be any compression of the sacral nerve roots. I do not believe this is a spinal form of incontinence. That said I suggested that she see a colorectal surgeon because her mother from colon cancer but more importantly to see if something like Lomotil would be a form of therapy that would help her. I suggest this because she only has the incontinence problem when her stools are loose. She understands that this is beyond the scope of what I deal with but she was grateful that I had a suggestion for her. We are happy to see her back at any point in the future if she starts having more difficulty with her neck thoracic or lumbar regions. Patient's BMI is Body mass index is 33.29 kg/m . systems reviewed and negative other than what is listed in the history of present illness Patient Active Problem List Diagnosis Abnormality of gait Anxiety CKD (chronic kidney disease) stage 3, GFR 30-59 ml/min (Multi) Communicating hydrocephalus (Multi) Congenital hydrocephalus Essential hypertension Hiatal hernia Murmur ADITI (obstructive sleep apnea) 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 stenosis of cervical region Normal pressure hydrocephalus syndrome (Multi) Spine disorder Status post cervical spinal fusion Past Medical History: Diagnosis Date Anxiety Cataract GERD (gastroesophageal reflux disease) HL (hearing loss) Hyperlipidemia Hypertension WAQAS (iron deficiency anemia) Meningitis spinal (HHS-HCC) at age 4 Paraesophageal hernia Refusal of blood transfusions as patient is Mandaeism Renal artery aneurysm (CMS-HCC) Scoliosis Sleep apnea Past Surgical History: Procedure [...] (65 Fe) MG tablet, Take 1 tablet (325 mg) by mouth once daily with breakfast., Disp: [...] AND ONCE BEFORE BEDTIME, Disp: , Rfl: lansoprazole (Prevacid) 30 mg [...] tablet, Take by mouth., Disp: , Rfl: labetalol (Normodyne) 100 mg tablet, Take 1 tablet (100 mg) by mouth 2 times a day., Disp: , Rfl: No Known Allergies Results: I personally reviewed and interpreted the imaging results which included the plain x-rays of her cervical spine show that the fusion looks solid. Assessment and Plan: Mary Goode is a 73 y.o. year old female who presents to the spine clinic in follow up with a nice solid fusion in the cervical spine and no active issues in that region. She is going to make an appointment with a colorectal surgeon to help her with her fecal incontinence and she can follow-up with us on an as-needed basis. I have reviewed all prior documentation and reviewed the electronic medical record since admission. I have personally have reviewed all advanced imaging not just the reports and used my interpretation as documented as the relevant findings. I have reviewed the risks and benefits of all treatment recommendations listed in this note with the patient and family. The above clinical summary has been dictated [...] MD, FAANS, FACS Board Certified Neurological Surgeon Mattress Filler, Department of Neurological Surgery [facility] [address] [place] [address] [facility] [address] [place] [address] documented in this encounter [facility] Work Phone: 03-06-2024 Procedure note [facility] 03-05-2024 Telephone encounter Note Patient presents in office last week 03/01 for PAT. She informed maricel that she has had issues in the past with cheap jewelry redness and puss noted. Case was discussed with Dr. Knapp who is recommending that patient proceed with allergy testing prior to proceeding with a (R) [facility]. Patient has been made aware and is understanding. Sx and upcoming appts have been cx. Referral has been sent to photostat operator helper. Will r/s sx once testing is scheduled. [facility] 03-05-2024 Miscellaneous Notes Patient presents in office last week 03/01 for PAT. She informed maricel that she has had issues in the past with cheap jewelry redness and puss noted. Case was discussed with Dr. Knapp who is recommending that patient proceed with allergy testing prior to proceeding with a (R) [facility]KA [facility]. Patient has been made aware and is understanding. Sx and upcoming appts have been cx. Referral has been sent to photostat operator helper. Will r/s sx once testing is scheduled. documented in this encounter [facility] 03-01-2024 History of Present illness Narrative Images from the original note were not included. GENERAL HISTORY AND PHYSICAL: NAME: Mary Goode : 1950 HISTORY OF PRESENT ILLNESS: Mary Goode is an 73 y.o. @ female. Here for surgery instructions - (R) TKA 03/15/2024 @[facility] PAST MEDICAL HISTORY: Past Medical History: Diagnosis Date Dementia (CMS/HCC) History of occlusion of patent ductus arteriosus using embolization coil Hydrocephalus (CMS/HCC) Hypercholesteremia (CMS/HCC) Hypertension (CMS/HCC) Meningitis spinal 1955 No blood products JEHOVAH WITNESS PAST SURGICAL HISTORY: Past Surgical History: Procedure Laterality Date CATARACT EXTRACTION W/ INTRAOCULAR LENS IMPLANT Bilateral HERNIA REPAIR KIDNEY SURGERY Right RENAL COIL EMBOLISM NECK SURGERY 2022 VENTRICULOPERITONEAL SHUNT 2008 [facility] HAKIM 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 SOCIAL HISTORY: Social History Occupational History Not on file Tobacco Use Smoking status: Never Smokeless tobacco: Never Substance and Sexual Activity Alcohol use: Not on file Drug use: Not on file Sexual activity: Not on file ALLERGIES: Allergies Allergen Reactions Other Other MEDICATIONS: Current Outpatient Medications Medication Instructions amLODIPine (Norvasc) 10 MG tablet atorvastatin (Lipitor) 20 MG tablet cholecalciferol (VITAMIN D-3) 1,000 Units, Daily ferrous sulfate 325 mg, Daily with breakfast gabapentin (NEURONTIN) 300 mg, 3 times daily hydroCHLOROthiazide (HYDRODiuril) 25 MG tablet labetalol (Normodyne) 200 MG tablet 1 tablet, 2 times daily losartan (Cozaar) 50 MG tablet venlafaxine XR (EFFEXOR XR) 75 mg, Daily REVIEW OF SYSTEMS: Review of Systems Constitutional: Negative for fatigue, fever and unexpected weight change. Eyes: Negative for redness and visual disturbance. Gastrointestinal: Negative for abdominal pain. Denies Indigestion Musculoskeletal: See note: Skin: Negative for color change and rash. Neurological: Negative for light-headedness and numbness. Vitals: Body mass index is 33.73 kg/m . PHYSICAL EXAM: Physical Exam Constitutional: General: She is not in acute distress. Appearance: Normal appearance. HENT: Head: Normocephalic and atraumatic. Right Ear: External ear normal. Left Ear: External ear normal. Nose: Nose normal. No rhinorrhea. Mouth/Throat: Mouth: Mucous membranes are moist. Dentition: No gingival swelling or dental abscesses. Pharynx: Oropharynx is clear. No pharyngeal swelling or posterior oropharyngeal erythema. Eyes: Extraocular Movements: Extraocular movements intact. Conjunctiva/sclera: Conjunctivae normal. Cardiovascular: Rate and Rhythm: Normal rate and regular rhythm. Pulses: Normal pulses. Heart sounds: Murmur heard. Systolic murmur is present with a grade of 2/6. Pulmonary: Effort: Pulmonary effort is normal. No respiratory distress. Breath sounds: Normal breath sounds. No wheezing or rhonchi. Abdominal: Palpations: Abdomen is soft. Tenderness: There is no abdominal tenderness. Musculoskeletal: Cervical back: Normal range of motion and neck supple. Lymphadenopathy: Cervical: No cervical adenopathy. Skin: General: Skin is warm and dry. Findings: No erythema or rash. Neurological: General: No focal deficit present. Mental Status: She is alert and oriented to person, place, and time. Psychiatric: Mood and Affect: Mood normal. Behavior: Behavior normal. No orders of the defined types were placed in this encounter. ASSESSMENT: ICD-10-CM 1. Primary osteoarthritis of right knee M17.11 2. Pre-op examination Z01.818 PLAN: This patient presents for preadmission testing for upcoming surgery. Complete history with medical, surgery, and current allergy and medication list obtained. Consent for surgery signed and witnessed after verbal consent to perform surgery received. All questions answered and proposed surgery scheduled. (R) TKA 03/15 [facility] SX INSTRUCTIONS GIVEN TODAY 03/01 @11:15AM - CATHERINE PST 03/05 @10:30AM DR. PURCELL CLEARANCE 03/12 @9:15AM LUCY NOTIFIED NO PREOP PAYMENT / PRECERT ; MEDICARE Follow up for 03/29/24 @ 10:00 - Catherine w/ Maricel. documented in this encounter [facility] 02-13-2024 History of Present illness Narrative Images from the original note were not included. HISTORY OF PRESENT ILLNESS: EST PT Mary Goode is an 73 y.o. @ female. EST PT WITH [facility] (LAST SEEN 08/2022) RECHECK RT KNEE PAIN FOR YEARS- SYMPTOMS GRADUALLY INCREASING -POSSIBLY DISCUSS SURGERY TODAY XRAY RT KNEE TODAY EPIC 02/13/24 XRAY EXA 08/25/22 XRAY [facility] 06/24/22 XRAY [facility] 08/03/22 MRI [facility] 08/03/22 HX CORTISONE INJECTIONS DIFFICULTY DRIVING/STAIRS-PAIN LATERAL/POSTERIOR KNEE- SOME SWELLING- +STIFFNESS WITH PROLONG SITTING- +GRINDING-+INSTABILITY- +GABAPENTIN - +WAKES HS- SLEEPS WITH PILLOW UNDER LEGS ALLERGIES: No Known Allergies HOME MEDICATIONS: Current Outpatient Medications Medication Instructions amLODIPine (Norvasc) 10 MG tablet atorvastatin (Lipitor) 20 MG tablet ferrous sulfate 325 mg, Oral, Daily with breakfast gabapentin (NEURONTIN) 300 mg, Oral, 3 times daily hydroCHLOROthiazide (HYDRODiuril) 25 MG tablet labetalol (Normodyne) 200 MG tablet 1 tablet, Oral, 2 times daily losartan (Cozaar) 50 MG tablet venlafaxine XR (EFFEXOR XR) 75 mg, Oral, Daily, Do not crush or chew. PHYSICAL EXAM: Knee Musculoskeletal Exam Gait Antalgic: right Inspection Leg length disparity: no discrepancy Right Erythema: none Effusion: mild Edema: none Ecchymosis: none Deformity: none Alignment: valgus Palpation Right Right knee palpation is unremarkable. Increased warmth: none Masses: none Crepitus: patellofemoral and lateral Tenderness: present Lateral joint line: moderate Patella: mild Range of Motion Right Right knee range of motion is normal. Active extension: 0 Active flexion: 120 Strength Right Right knee strength is normal. Extension: 5/5. Extension is affected by pain. Flexion: 5/5. Flexion is affected by pain. Instability Right Instability signs: none - stable Anterior drawer: normal Neurovascular Right Right knee neurovascular exam is normal. Pulses - PT: normal Posterior tibial: 2+ Capillary refill: warm and well-perfused Special Signs Right Right knee special signs are normal. Patellar apprehension: none Vitals: There is no height or weight on file to calculate BMI. Tobacco Use: Low Risk (10/19/2023) Received from [facility] Patient History Smoking Tobacco Use: Never Smokeless Tobacco Use: Never Passive Exposure: Not on file Alcohol Use: Not At Risk (04/07/2023) Received from [facility], [facility] AUDIT-C Frequency of Alcohol Consumption: Monthly or less Average Number of Drinks: 1 or 2 Frequency of Binge Drinking: Never IMAGING: XR knee 1 or 2 views right Imaging Result: X-rays AP and lateral of right knee showed severe Valgus deformity with [id number] articulation to the lateral joint line. There is flattening of the articular surfaces laterally to the tibia plateau and lateral femoral condyle. There is marginal osteophytic formation and subchondral sclerosis noted laterally and the patellofemoral joint. There is no evidence of fracture or dislocation. Bony structures viewed showed appropriate ossification. Procedures Orders Placed This Encounter Procedures XR knee 1 or 2 views right Order Specific Question: Reason for exam: Answer: PAIN ASSESSMENT: ICD-10-CM 1. Primary osteoarthritis of right knee M17.11 2. Acute pain of right knee M25.561 XR knee 1 or 2 views right PLAN: We have answered all the patients questions and explained the patients condition, decision making and plan including the risks and benefits associated with said plan in layman''s terms in a language the patient could understand easily. If patient''s symptoms significantly worsen and they cannot get a hold of us or their family physician, we have recommended that the patient proceed to the nearest emergency department (room). Dr. Knapp obtained history and examined the patient, I am acting as scribe for Dr. Knapp/spenser, PLAN: We have discussed (R) knee xrays with patient at bedside. Patient states she has put entertaining the thought of a (R) TKA on hold for ~1 year secondary to having a C-Spine fusion. After examination of her right knee today we have discussed both surgical and nonsurgical intervention, with the risks and benefits of both. Patient is requesting a (R) TKA as the pain is affecting her ADL's - unable to ambulate prolong period of time. Patient is refusing the thought of a blood transfusion secondary to being a Jehovah Witness. We are recommending proceeding with sx at hospital and have her stay at least overnight secondary to not having anyone at home with her postop. We have discussed her HEP and restrictions and will see her back on the day of sx. Surgery - (R) TKA We have discussed both surgical and nonsurgical treatment options with the patient at length and the risks and benefits associated with both. The patient is requesting surgical intervention because they have not responded to outpatient treatment options including but not limited to rest ice, and home exercise program. Pain and decreased range of motion are affecting the patient''s ability to sleep and activities of daily living and we have recommended surgical intervention. We recommended surgery in the form of a total knee arthroplasty. Factors, including the patient's age and longevity of prosthesis, usual postop course and possible need for revision in the future were discussed at length. We have discussed with the patient that this is a major orthopedic procedure. We discussed that the patient may require more than the average 30 MED limit and may require greater than 7 days narcotic treatment postoperatively. Therefore, patient's narcotic usage, will be tailored on an individual basis. If this patient at the time of surgery has any of the following comorbidities including but not limited to, history of falling, cognitive impairment, BMI greater than 30, end-stage renal disease, respiratory failure, heart failure, kidney failure, liver failure, diabetes, cardiac event in the last year, sleep apnea, bleeding disorder, excessive tobacco use, or if at the time of surgery the patient is greater than 80 years old, or requires discharged to a correction facility, the patient may require to have additional inpatient hospital stay following the surgery. Physical therapy is contraindicated in this patient's case because of [id number] articulation of the patient's knee. Rush Knapp D.O. documented in this encounter [facility] 10-19-2023 History of Present illness Narrative Images from the original note were not included. [facility] [place] Department of Neurological Surgery Established Patient Visit History of Present Illness Mary Goode is a 72 y.o. year old female who presents to the spine clinic in follow up with very few complaints today. She is status post a 4 level anterior cervical disc excision with interbody fusion and plate fixation last March. She is having no neck pain. She is making certain that she does not rotate or flex and extend in extreme range of motion. She would like to start working on her golf game. I gave her permission today to start working on her pitching and putting and chipping. She is going to gradually increase her swing but I told her the trick is going to be not to keep her eye on the ball. This is opposite of what she was taught as a young woman. She is also having the same low back pain that she has had now for quite a while and since she was sent to me by her lumbar surgeon I think it is okay for her to go back and see him. I do not have any lumbar films to look out so I cannot give her an opinion and I do not want to step on the toes of someone who referred her to me. From my standpoint she can start to do all sorts of activities that she wants to get back to as long as she builds up slowly. She is going to come back and see us at the anniversary date of her surgery and we will get 1 final set of x-rays at that time. Patient's BMI is Body mass index is 31.83 kg/m . systems reviewed and negative other than what is listed in the history of present illness Patient Active Problem List Diagnosis Abnormality of gait Anxiety CKD (chronic kidney disease) stage 3, GFR 30-59 ml/min (Multi) Communicating hydrocephalus (Multi) Congenital hydrocephalus (Multi) Essential hypertension Hiatal hernia Murmur ADITI (obstructive sleep apnea) 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 stenosis of cervical region (Multi) Normal pressure hydrocephalus syndrome (Multi) Spine disorder Status post cervical spinal fusion Past Medical History: Diagnosis Date Anxiety Cataract GERD (gastroesophageal reflux disease) HL (hearing loss) Hyperlipidemia Hypertension WAQAS (iron deficiency anemia) Meningitis spinal (HHS-HCC) at age 4 Paraesophageal hernia Refusal of blood transfusions as patient is Mandaeism Renal artery aneurysm (CMS-HCC) Scoliosis Sleep apnea Past Surgical History: Procedure [...] tablet, Take by mouth., Disp: , Rfl: aspirin 81 mg chewable tablet, Aspirin (Aspirin Child) 81 mg Tablet,Chewable Active 81 MG PO Daily August 05, 2021 12:00am, Disp: , Rfl: iron 18 mg tablet, Take by mouth once every 24 hours., Disp: , Rfl: ketorolac (Acular) 0.5 % ophthalmic solution, PLACE 1 DROP INTO AFFECTED EYE(S) ONCE IN THE MORNING AND ONCE BEFORE BEDTIME, Disp: , Rfl: ofloxacin (Ocuflox) 0.3 % ophthalmic solution, PLEASE SEE ATTACHED FOR DETAILED DIRECTIONS, Disp: , Rfl: No Known Allergies Physical Examination: Her neck is well-healed so that you cannot see the incision. She moves well she does not hesitate to raise her arms and move them above her head. And her balance seems to be strong when she stands up to walk. Results: I personally reviewed and interpreted the imaging results which included the x-rays that were done this week of her cervical spine show that the allograft has not been reabsorbed and there seems to be incorporation of bone all the way through each of the 4 allograft. Assessment and Plan: Mary Goode is a 72 y.o. year old female who presents to the spine clinic in follow up with no new complaints and x-rays that look like she is healing up well. She can increase her activities and enjoy the summer and then she will see us back in the late fall with a final set of x-rays. I have reviewed all prior documentation and reviewed the electronic medical record since admission. I have personally have reviewed all advanced imaging not just the reports and used my interpretation as documented as the relevant findings. I have reviewed the risks and benefits of all treatment recommendations listed in this note with the patient and family. I spent a total of 30 minutes in service to this patient's care during this date of service. The above clinical summary has been dictated [...] MD, FAANS, FACS Board Certified Neurological Surgeon Mattress Filler, Department of Neurological Surgery [facility] [address] [facility] [address] [place] [address] [facility] [address] [place] [address] documented in this encounter [facility] Work Phone: 06-16-2023 History of Present illness Narrative Images from the original note were not included. [facility] [place] Department of Neurological Surgery Post Operative Patient [...] esophagus and has pulled on the repair. 14/ systems reviewed and negative other than what [...] Refusal of blood transfusions as patient is Mandaeism Renal artery aneurysm (CMS/HCC) Scoliosis Sleep apnea [...] MD, FAANS, FACS Board Certified Neurological Surgeon Mattress Filler, Department of Neurological Surgery [facility] [address] [facility] [address] [place] [address] [facility] [address] [place] [address] documented in this encounter [facility] Work Phone: 05-10-2023 History of Present illness Narrative [facility] [place] Department of Neurological Surgery Post Operative Patient [...] Refusal of blood transfusions as patient is Mandaeism Renal artery aneurysm (CMS/HCC) Scoliosis Sleep apnea [...] MD, FAANS, FACS Board Certified Neurological Surgeon Mattress Filler, Department of Neurological Surgery [facility] [address] [facility] [address] [place] [address] [facility] [address] [place] [id number] documented in this encounter [facility] [...] related to pain meds throughout the shift 03/23/20231005 by Beth Bronson RN Outcome: Adequate for Discharge 03/23/2023924 by Beth Bronson RN Outcome: Progressing Problem: Skin Goal: Decreased wound size/increased tissue granulation at next dressing change 03/23/20231005 by Beth Bronson RN Outcome: Adequate [...] Bronson RN Outcome: Progressing Goal: Promote/optimize nutrition 03/23/20231005 by Beth Bronson RN Outcome: Adequate for Discharge 03/23/2023924 by Beth Bronson RN Outcome: Progressing Goal: Promote skin healing 03/23/20231005 by Beth Bronson RN Outcome: Adequate [...] related to pain meds throughout the shift 03/23/20231005 by Beth Bronson [...] RN Outcome: Progressing Goal: Promote/optimize nutrition 03/23/2023 1006 by Beth Bronson RN Outcome: [...] injury from fall in the home 03/23/2023 1006 by Beth Bronson RN Outcome: Adequate for Discharge 03/23/2023924 by Beth Bronson RN Outcome: Progressing Goal: Use assistive devices by end of the shift 03/23/2023 1006 by Beth Bronson RN Outcome: Adequate for Discharge 03/23/2023 0925 by Beth Bronson RN Outcome: Progressing Goal: Pace activities to prevent fatigue by end of the shift 03/23/2023 1006 by Beth Bronson RN Outcome: Adequate for Discharge 03/23/2023 09 by Beth Bronson RN Outcome: Progressing T. [...] with improved pain control throughout the shift 03/22/2023 0928 by Beth Bronson RN Outcome: Progressing 03/22/2023 0926 by Beth Bronson RN Outcome: Progressing 03/22/2023921 [...] with myelopathy, cervical region [M47.12] Surgeon: * Mierille Zurita - Primary * Fernando Christine - Assisting Anesthesia staff:Anesthesiologist: Paty Jewell MD REAL ESTATE OFFICE MANAGER: Man Bales APRN-REAL ESTATE OFFICE MANAGER Procedure: Procedure(s): C3-4, C4-5, C5-6, C6-7 ANTERIOR [...] Implant Name Type Inv. Item Serial No. Starter Cup Powder Mixer Lot No. LRB No. Used Action ALLOGRAFT, TRIAD LORDOTIC 7 X 11 X 14 - [id number] - [id number] Spinal Hardware ALLOGRAFT, TRIAD LORDOTIC 7 X 11 X 14 [id number] [employer] N/A 1 Implanted ALLOGRAFT, TRIAD LORDOTIC 6 X 11 X 14 - [id number] - [id number] Spinal Hardware ALLOGRAFT, TRIAD LORDOTIC 6 X 11 X 14 [id number] [employer] N/A 1 Implanted ALLOGRAFT, TRIAD LORDOTIC 7 X 11 X 14 - [id number] - [id number] Spinal Hardware ALLOGRAFT, TRIAD LORDOTIC 7 X 11 X 14 [id number] [employer] N/A 1 Implanted ALLOGRAFT, TRIAD LORDOTIC 7 X 11 X 14 - [id number] - [id number] Spinal Hardware ALLOGRAFT, TRIAD LORDOTIC 7 X 11 X 14 [id number] [employer] N/A 1 Implanted SCREW, ACP, SELF DRILL, 3.5 X 15MM, VARIABLE - [id number] Spinal Hardware SCREW, ACP, SELF DRILL, 3.5 [...] her head was placed in a beanbag deputy head. The arms were tucked by her [...] appropriately. I used the awl to place agricultural aircraft pilot holes in the 5 vertebral bodies [...] Department Center 04/07/2023 1:00 PM PUSHPA Voss [id number] [place] 05/12/2023 8:30 AM Mireille Zurita MD [id number] [place] 06/16/2023 10:30 AM Mireille Zurita MD [id number] [place] PUSHPA Voss documented in this encounter [facility] Work Phone: 03-23-2023 Hospital Discharge instructions PUSHPA Voss - 03/23/2023 5:28 AM EST May shower. [...] insurance, address, phone. 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 court judge stairs d/t c-collar PT Discharge Recommendations: No [...] causing loss of sleep and limitations, vp patient shunt, r artery aneurysm repair, sob w/ [...] Prior Function Per Pt/Caregiver Report Level of [place]: (indep) Homemaking Assistance: (indep home mgmt and [...] LLE : Within Functional Limits Outcome Measures: [facility] Basic Mobility Turning from your back to [...] pain, numbness/tingling B arms/legs, loss of sleep, PLATE SETTER shunt, Prior to Session Communication: Bedside nurse Patient Position Received: Bed, 2 rail up Precautions: Precautions Comment: [place] collar, cervical precautions, Pain: Pain Assessment Pain Assessment: 0-10 Pain Score: 3 Pain Type: Surgical pain Pain Location: Neck Objective Cognition: Overall Cognitive Status: Within Functional Limits Home Living: Lives With: (alone; nieces supportive/will stay with patient upon discharge home. Bed/bath 1st floor, independent without device, drives. Owns rollator, cane, tub/shower with seat, grab bar & hand held shower,) Prior Function: Level of [place]: Independent with ADLs and functional transfers ADL: [...] Functional Limits LUE: Within Functional Limits Outcome Measures:[facility] Daily Activity Putting on and taking off [...] to Medicine Consult performed by: Leticia Farris APRN-DIRECTOR CASE Consult ordered by: Mary Patrick APRN-MUSCULOSKELETAL PHYSICIAN Reason for consult: medical management History Of [...] Refusal of blood transfusions as patient is Mandaeism, Renal artery aneurysm (CMS/HCC), Scoliosis, and Sleep [...] - per primary/surgery service protocol Leticia Farris [facility] Medicine Associated attestation - Robert Mack [...] you for this consult Robert Mack DO [facility] Work Phone: 03-22-2023 Consult note Associated Order (s): Inpatient consult to Medicine Inpatient consult to Medicine Consult performed by: Leticia Farris APRN-[facility] Consult ordered by: Mary Patrick APRN-[facility] Reason for consult: medical management History Of [...] Refusal of blood transfusions as patient is Mandaeism, Renal artery aneurysm (CMS/HCC), Scoliosis, and Sleep [...] - per primary/surgery service protocol Leticia Farris [facility] Medicine Associated attestation - Robert Mack [...] you for this consult Robert Mack DO [facility] Reason For Consult Intra-op evaluation of [...] 03/22/2023921 by Beth Bronson RN Outcome: Progressing [facility] Work Phone: 03-22-2023 Plan of care [...] by end of the shift Outcome: Progressing [facility] Work Phone: 03-22-2023 Note Formatting of [...] Plan for discharge home 03/23/2023 PUSHPA Voss [facility] Work Phone: 03-21-2023 Plan of care [...] goals for the shift include pain control [facility] 03-21-2023 Plan of care note Problem: [...] Progressing Goal: Promote skin healing Outcome: Progressing [facility] Work Phone: 03-21-2023 Consult note [...] - Assisting Anesthesia staff:Anesthesiologist: Paty Jewell MD REAL ESTATE OFFICE MANAGER: Man Bales APRN-REAL ESTATE OFFICE MANAGER Procedure: Procedure(s): C3-4, C4-5, C5-6, C6-7 ANTERIOR [...] Implant Name Type Inv. Item Serial No. Starter Cup Powder Mixer Lot No. LRB No. Used Action ALLOGRAFT, TRIAD LORDOTIC 7 X 11 X 14 - [id number] - [id number] Spinal Hardware ALLOGRAFT, TRIAD LORDOTIC 7 X 11 X 14 [id number] [employer] N/A 1 Implanted ALLOGRAFT, TRIAD LORDOTIC 6 X 11 X 14 - [id number] - [id number] Spinal Hardware ALLOGRAFT, TRIAD LORDOTIC 6 X 11 X 14 [id number] [employer] N/A 1 Implanted ALLOGRAFT, TRIAD LORDOTIC 7 X 11 X 14 - [id number] - [id number] Spinal Hardware ALLOGRAFT, TRIAD LORDOTIC 7 X 11 X 14 [id number] [employer] N/A 1 Implanted ALLOGRAFT, TRIAD LORDOTIC 7 X 11 X 14 - [id number] - [id number] Spinal Hardware ALLOGRAFT, TRIAD LORDOTIC 7 X 11 X 14 [id number] [employer] N/A 1 Implanted SCREW, ACP, SELF DRILL, 3.5 X 15MM, VARIABLE - [id number] Spinal Hardware SCREW, ACP, SELF DRILL, 3.5 [...] her head was placed in a beanbag deputy head. The arms were tucked by her [...] appropriately. I used the awl to place agricultural aircraft pilot holes in the 5 vertebral bodies [...] the operation. Complication: None Mireille Zurita MD [facility] Work Phone: 03-21-2023 Attending History and physical note H&P reviewed. The patient was examined and there are no changes to the H&P. Source Note - Jane Caro APRN-EMANUEL - 03/14/2023 12:30 PM EST CPM/PAT Evaluation [...] Denies past issues with anesthesia. Reports current PLATE SETTER shunt (2006), and hx of Right renal [...] changes to the H&P. Source Note - PUSHPA Trejo - 03/14/2023 12:30 PM EST CPM/PAT Evaluation Name: Mary Cherry Russel (Mary Goode) /Age: 711/20/1950/72 y.o. In-Person Chief [...] Denies past issues with anesthesia. Reports current PLATE SETTER shunt (2006), and hx of Right renal [...] symptoms. Also she can follow-up with her certified surgical tech/first assistant due to the urinary incontinence. [facility] Other 08-01-2023 History of Present illness Narrative* The patient who is a 72-year-old female came in today with a friend to discuss cervical pain and back of head pain that she has been experiencing. 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 I also suggested that she start considering getting second opinions. I am going tosee her back after the CAT scan of her cervical spine is done and we will talk about which operation to the cervical spine we would be recommending. [facility] [address] Work Phone: [phone]) 274-511303-28-2023 Evaluation note* Encounter Date Diagnosis Assessment Notes Treatment Notes Treatment Clinical Notes Jul, PLATE SETTER (ventriculoperito kym) shunt status (ICD-10 - Z98.2) [...] with the patient who understands and agrees [facility] Other 03-16-2023 Evaluation note* Encounter Date Diagnosis Assessment Notes Treatment Notes Treatment Clinical Notes Jul, PLATE SETTER (ventriculoperito kym) shunt status (ICD-10 - Z98.2) [...] as-needed basis. Her shunt pumps quite well [facility] Other 02-16-2023 NotePROCEDURE: XR KNEE RT 4V [...] authenticated by: ANA ROSA BELLO Date: 2022-06-24 11:33[facility]02-08-2023 Evaluation note* Encounter Date Diagnosis Assessment [...] She reported to have Osteoporosis . Continue Break30 Other 01-19-2023 NoteHNO ID: [id number] Author: Freda Pop APRN.DIRECTOR CASE Service: ? Author Type: Nurse Practitioner Type: [...] Freda Pop APRN.CNP General Surgery [facility] [place] Medical Decision Making: Problems: Moderate: 1+ chronic illnesses with change Risk: Moderate: Drug management Medical Decision Making Level: [facility] Instructions* Patient Instructions* Freda Pop APRN.CNP - 05/27/2022 8:56 AM EST Continue Prevacid (lansoprazole) 30 mg daily or similar indefinitely We'll check your Upper GI, let us know once you get it so that we can be sure to get the results [facility] History of Present illness Narrative* Freda Pop [...] NO Diarrhea: NO Taking PPI: Yes, Provider Andrea/Donn indefinitely PHYSICAL EXAM: LMP 05/31/2006 Virtual visit [...] Freda Pop APRN.CNP General Surgery Digestive Disease [place] Medical Decision Making: Problems: Moderate: 1+ chronic illnesses with change Risk: Moderate: Drug management Medical Decision Making Level: 4 - Moderate documented in [facility]Ad[facility]12[facility]-2022 Procedure [facility]11-15-2022 Evaluation note* Encounter Date Diagnosis Assessment Notes [...] reviewed these x-rays and confirmed the measurement [facility] Other 10-06-2022 Evaluation note* Encounter Date Diagnosis [...] her. A new referral will be sent. [facility] Other 08-17-2022 NoteHNO ID: [id number] Author: Freda Pop APRN.CNP Service: ? Author Type: Nurse Practitioner Type: Progress Notes Filed: 12/23/2021 10:45 AM Note Text: GENERAL SURGERY CLINIC FOLLOW UP NOTE Clinic Date: 12/23/2021 Mary Cherry Russel, 71 year old [address] [facility] [address] CHIEF COMPLAINT: Patient presents with: Post Op [...] Freda Pop APRN.EMANUEL General Surgery [facility] [place] [facility] 22[facility]07[facility] NoteHNO ID: [id number] Author: Freda Pop APRN.[facility] Service: ? Author Type: Nurse Practitioner Type: Progress Notes Filed: 12/03/2021 12:10 PM Note Text: GENERAL SURGERY CLINIC FOLLOW UP NOTE - virtual visit Virtual Visit (Audio/Visual) I have discussed the nature of this visit with the patient which will occur via Distance Health (Phone, Virtual Visit) and she agrees to proceed with this interaction . Clinic Date: 12/03/2021 Mary Cherry Russel, 71 [facility] [address] [facility] [address] CHIEF COMPLAINT: Patient presents with: Post Op Follow Up: paraesophageal hernia repair HPI: Mary Cherry Russel presents for follow up from paraesophageal hernia [...] intact, no signs of infection PHYSICAL EXAM: [facility] 05/31/2006 - virtual visit GENERAL: No [...] Freda Pop APRN.EMANUEL General Surgery Digestive Disease [place] December 03[facility]07-28-2022 History of Present illness Narrative* Freda Pop [...] this interaction . Clinic Date: 12/03/2021 Mary Morenomellissamanoj, 71 year old [address] [facility] [address] CHIEF COMPLAINT: Patient presents with: Post Op Follow Up: paraesophageal hernia repair HPI: Mary Cherry bridgette presents for follow up from paraesophageal hernia [...] intact, no signs of infection PHYSICAL EXAM: [facility] 05/31/2006 - virtual visit GENERAL: No [...] Freda Pop APRN.CNP General Surgery Digestive Disease [place] December 03, 2021 documented in this encounterAdams [facility]07-28-2022 Instructions* Patient Instructions* Freda Pop APRN.CNP - [...] then activity as tolerated documented in this encounterAdams County [facility] Medical Center07-25-2022 Evaluation note* Encounter Date Diagnosis Assessment Notes [...] She reported to have Osteoporosis . Continue Break[employer] Other 07-12-2022 NoteHNO ID: [id number] Author: Angeli Rivas RN Service: Care Management [...] 17, 2021 TIME: 8:34 PM PAGER/CONTACT #: [phone] Disclaimer: The information in this determination is [...] the process utilized to ensure compliance with [facility] policy regarding Inpatient Admission and Observation [...] physician's order as documented evidence of concurrence. [facility]07-12-2022 NoteHNO ID: [id number] Author: Tony Cox MD Service: General Surgery [...] questions during the weekdays, please contact the [place] service pager, [phone] For questions during the nights and weekends, please contact the [place] pager, [phone] NoteHNO ID: [id number] Author: Terry Villavicencio APRN.REAL ESTATE OFFICE MANAGER Service: Anesthesiology Author Type: Nurse Marble Installation Helper Type: Anesthesia Procedure Notes Filed: 11/16/2021 12:19 [...] Imaging Guidance Used: No SIGNATURE: Terry Villavicencio APRN.REAL ESTATE OFFICE MANAGER PATIENT NAME: Mary Goode DATE: November 16, 2021 TIME: 12:19 PM CSN: [id number] NoteHNO ID: [id number] Author: Terry Villavicencio APRN.REAL ESTATE OFFICE MANAGER Service: Anesthesiology Author Type: Nurse Marble Installation Helper Type: Anesthesia Procedure Notes Filed: 11/16/2021 12:19 PM Note Text: ANESTHESIOLOGY PROCEDURE NOTE Airway General Information Procedure Start Time/Medication Administration: 11/16/2021 11:50 AM Patient location during procedure: OR Patient 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 SIGNATURE: Terry Villavicencio APRN.CRNA PATIENT NAME: Mary Goode DATE: November 16, 2021 TIME: 12:18 PM CSN: [id number] NoteHNO ID: [id number] Author: Riky Moura RN Service: ? Author [...] Riky Moura RN In Department: GENERAL SURGERY [facility]07-07-2022 History of Present illness Narrative* [...] Op Instructions Handout - PACC Brochure - [facility] Overview Handout - Post Op Instructions Handout REFERRAL (RECOMMENDATION): None Electronically Signed By: Riky Moura RN In Department: GENERAL SURGERY documented in this encounterAdams County [facility] Medical Center07-07-2022 NoteEducation ([facility]) MARY GOODE ([id number]) 1950 F Date Time Provider Department 11/12/21 RIKY MOURA (RN) [facility] Reason for Visit: Education Of Patient/family [054] Cmt: LPEH Repair Primary Visit Diagnosis:Encounter for [...] Encounter Status:Closed by RIKY MOURA RN on 11/12/21[facility] 11-12-2021 NoteHNO ID: [id number] Author: Atif Mendez MD Service: ? Author Type: Physician Type: Progress Notes Filed: 11/12/2021 1:39 PM Note Text: SURGERY PREOPERATIVE VISIT NOTE Name: Mary Goode Medical Record: [id number] Encounter No.: [id number] Mary Goode is a 70 year old female seen in surgery clinic today for their final preoperative assessment. INTERVAL NOTE: Patient needed to discuss regarding surgery. She is currently scheduled for a paraesophageal hernia repair. 10/21/2021 CT A/P 10/16/2021 esophageal manometry View External Imaging - Miscellaneous Imaging [ID [id number]] 10/07/2021 UGI Scan on 10/27/2021 ?8:25 AM by External Provider: GI BMI 31 PLANNED PROCEDURE: Paraesophageal hernia repair, possible Monico fundoplication. Patient is a Mandaeism. We have discussed regarding not doing a fundoplication if risk of recurrence is assessed to be on the higher side intraoperatively. PAST MEDICAL HISTORY: PAST MEDICAL HISTORY Diagnosis Date - Congenital hydrocephalus (HCC) s/p PLATE SETTER shunt - Essential hypertension - ADITI (obstructive sleep apnea) - Patient is Mandaeism PAST SURGICAL HISTORY: PAST SURGICAL HISTORY Procedure Laterality Date - APPENDECTOMY - COLONOSCOPY - EGD - HYSTERECTOMY HX 2008 - PAST SURGICAL HISTORY OF 2012 coil embolization for right renal aneurysm( Aguilera) - PAST SURGICAL HISTORY OF 2006 PLATE SETTER shunt - PAST SURGICAL HISTORY OF partial [...] re herniation of t (more content not included)...[facility] 11-12-2021 Nurse Note* Joan Jung Ma - 11/12/2021 11:55 AM EDT What is the reason for your visit today? Pre op Who is your referring physician? Are you having poor oral intake? NO Have you had unintentional weight loss of 15 lbs/7 Kg in the last 3-6 months? NO Bowels: constipated Wound: Temperature: No Drains: No documented in this encounterAdams County Regional Medical Center07-07-2022 History of Present illness Narrative* Atif Mendez MD - 11/12/2021 11:30 AM EDT SURGERY PREOPERATIVE VISIT NOTE Name: Mary Goode Medical Record: [id number] Encounter No.: [id number] Mary Goode is a 70 year old female seen in surgery clinic today for their final preoperative assessment. INTERVAL NOTE: Patient needed to discuss regarding surgery. She is currently scheduled for a paraesophageal herniarepair. 10/21/2021 CT A/P 10/16/2021 esophageal manometry View External Imaging - Miscellaneous Imaging [ID [id number]] 10/07/2021 UGI Scan on 10/27/2021 8:25 AM by External Provider: GI BMI 31 PLANNED PROCEDURE: Paraesophageal hernia repair, possible Monico fundoplication. Patient is a Mandaeism. We have discussed regarding not doing a fundoplication if risk of recurrence is assessed to be on the higher side intraoperatively. PAST MEDICAL HISTORY: PAST MEDICAL HISTORY Diagnosis Date Congenital hydrocephalus (HCC) s/p PLATE SETTER shunt Essential hypertension ADITI (obstructive sleep apnea) Patient is Mandaeism PAST SURGICAL HISTORY: PAST SURGICAL HISTORY Procedure Laterality Date APPENDECTOMY COLONOSCOPY EGD HYSTERECTOMY HX 2008 PAST SURGICAL HISTORY OF 2013 coil embolization for right renal aneurysm( Aguilera) PAST SURGICAL HISTORY OF 2006 PLATE SETTER shunt PAST SURGICAL HISTORY OF partial right [...] on recommendations of the Governor of the [facility]. Although we will perform appropriate precautions [...] patient. Atif Mendez MD documented in this encounterAdams County Regional Medical Center06-29-2022 Miscellaneous Notes* Telephone Encounter - Gee Looyuki Ky - 11/04/2021 2:49 PM EDT Patient scheduled 11/06 in [place] for ECHO * Telephone Encounter - Gee Meeks Ma - 11/03/2021 10:39 AM EDT Patient is in need of Echo before 11/16 for surgery. Is anyone able to assist in getting the patientin for this? documented in this encounterAdams County Regional Medical Center06-21-2022 Miscellaneous Notes* Telephone Encounter - Jonathon Dobson - 10/27/2021 3:58 PM EDT Records received and scanned.on 10/27 listed under GI and external imaging Misc. Not sure who scanned these. Thanks! * Telephone Encounter - Sabine Victoria Pss - 10/23/2021 12:04 PM EDT Requested reports from [facility]. Sent fax to [phone] -Manometry 6.10.22 -Upper GI 6.1.22 Sabine Victoria Pss documented in this encounterAdams County Regional Medical Center06-15-2022 NoteHNO ID: [id number] Author: Uyen Vaughan RT(R) Service: ? Author Type: Technologist Type: Progress [...] BY: RT Boni(R) October 21, 2021 8:43 [facility]06-15-2022 NoteHNO ID: [id number] Author: Janay Jeffrey RN Service: ? Author [...] Goode DATE: October 21, 2021 TIME: 8:28 [facility]06-15-2022 History of Present illness Narrative* Janay Jeffrey RN - 10/21/2021 8:15 AM EDT Radiology Service Progress Note DATE OF SERVICE: [...] Ref Range Status 10/21/2021 59 (L) >=60 mL/min/1.73m Final Comment: Estimated Glomerular Filtration Rate (eGFR) is calculated using the 2020 CKD-EPI creatinine equation. This equation utilizes serum creatinine, sex, and age as parameters. The creatinine assay has traceable calibration to isotope dilution- mass spectrometry. Refer to KDIGO guidelines for clinical interpretation. In patients with unstable renal function, e.g. those with acute kidney injury, the eGFRmay not accurately reflect actual GFR. P.O.C.T. RESULTS: POC done: Yes, See Lab Tab October 21, 2021 TREATMENT: No Hydration needed. IV SITE: Ambulatory: A peripheral IV was started in the Right antecubital site with a Angio cath: 20 gauge. IV SITE APPEARANCE: Clean,Dry and Intact SIGNATURE: Janay Jeffrey RN PATIENT NAME: Mary Goode DATE: October 21, 2021 TIME: 8:28 AM * Uyen Vaughan RT(R) - 10/21/2021 8:15 AM EDT Radiology Service Progress Note PATIENT NAME: Mary Goode DATE OF SERVICE: October 21, 2021 TIME: 8:43 AM PATIENT IDENTITY VERIFICATION COMPLETED USING TWO (2) IDENTIFIERS: Name and Date of confirmedby patient verbally. FALL SCREENING: Has the patient [...] BY: RT Boni(R) October 21, 2021 8:43 AM documented in this encounterAdams County Regional Medical Center05-31-2022 Evaluation note* Encounter Date Diagnosis Assessment Notes Treatment Notes Treatment Clinical Notes September, Paraesophageal herni a (ICD-10 - K44.9) [employer] Other 05-26-2022 NoteHNO ID: [id number] Author: Atif Mendez MD Service: ? Author [...] 70 year old female who is a Hinduism PMH of congenital hydrocephalus ( PLATE SETTER shunt), HTN, patient of Monika Guerrero MD, referred to me by Dr Ramirez for hiatal hernia with severe GERD symptoms. Patient reports heart burn, excess salivation and occasional regurgitaion. She denies any ALARM features including weight loss, GIB, odynyophagia or dysphagia. Her PSH include open appendectomy, JUANI, and PLATE SETTER shunt placement. The patient's most recent EGD was done in 09/03 and the report is included below Chart Review: -hx: worsening GERD - referred by Dr. Ramirez for GERD/Hiatal Hernia Scan on 09/03/2021 ?9:36 AM by Jonathon Dobson: [facility] progress note 07/22/2021 Dr. Ramirez - 08/06/2021 EGD Scan on 09/03/2021 ?9:35 AM by Jonathon Dobson: [facility] EGD 08/06/2021 Dr. Ramirez -09/17/2015 EGD Scan on 09/03/2021 ?9:33 AM by Jonathon Dobson: [facility] Operative report 09/17/2015 Dr. Walter Difficulty swallowing [...] 70 year old female who is a Hinduism PMH of congenital hydrocephalus ( PLATE SETTER shunt), HTN, who presents with paraesophageal hernia [...] above but most relevantly she is a Mandaeism. She does not smoke and does not consume alcohol on a regular basis. Her physical examination reveals lower midline hernia for a total abdominal hysterectomy. She has a previous history of a PLATE SETTER shunt for congenital hydrocephalus, has not followed up with a neurosurgeon for several years. (more content not included)...[facility]05-26-2022 History of Present illness Narrative* Atif Mendez MD - 10/01/2021 10:37 AM EDT NEW [place]EG[place] PATIENT PATIENT NAME: Mary Goode REASON FOR CONSULT: Hiatal hernia REQUESTING PHYSICIAN: Dr. Mcconnell DATE of SERVICE: 09/25/2021 TIME of SERVICE: 12:16 PM PCP: Monika Guerrero MD Chief Complaint: refractory GERD History of present illness: Mary Goode is a 70 year old female who is a Hinduism PMH of congenital hydrocephalus ( PLATE SETTER shunt), HTN, patient of Monika Guerrero MD, referred to me by Dr Ramirez for hiatalhernia with severe GERD symptoms. Patient reports heart burn, excess salivation and occasional regurgitaion. She denies any ALARM features including weight loss, GIB, odynyophagia or dysphagia. Her PSH include open appendectomy, JUANI, and PLATE SETTER shunt placement. The patient's most recent EGD was done in09/03 and the report is included below Chart Review: -hx: worsening GERD - referred by Dr. Ramirez for GERD/Hiatal Hernia Scan on 09/03/2021 9:36 AM by Jonathon Dobson: [facility] progress note 07/22/2021 Dr. Rmairez - 08/06/2021 EGD Scan on 09/03/2021 9:35 AM by Jonathon Dobson: [facility] EGD 08/06/2021 Dr. Ramirez -09/17/2015 EGD Scan on 09/03/2021 9:33 AM by Jonathon Dobson: [facility] Operative report 09/17/2015 Dr. Walter Difficulty swallowing [...] 70 year old female who is a Hinduism PMH of congenital hydrocephalus ( PLATE SETTER shunt), HTN, who presents with paraesophageal hernia [...] above but most relevantly she is a Mandaeism. She does not smoke and does not consume alcohol on a regular basis. Her physical examination reveals lower midline hernia for a total abdominal hysterectomy. She has a previous history of a PLATE SETTER shunt for congenital hydrocephalus, has not followed [...] to look at the anatomy of the PLATE SETTER shunt. She will see me back as soon as these are done and we will get her scheduled for surgery. Upper GI Manometry CT abdomen pelvis Mandaeism Weight loss as possible I have discussed [...] Level: 4 - Moderate documented in this encounterAdams County Regional Medical Center05-26-2022 Nurse Note* Yolanda Castro MA - 10/01/2021 [...] Temperature: No Drains: No documented in this encounterAdams County Regional Medical Center04-28-2022 Miscellaneous Notes* Telephone Encounter - Jonathon Dobson - 09/03/2021 9:37 AM EDT Received medical records from Dr. Ramirez. Progress Note 07/22/2021 EGD [id number] Old Operative Report 09/17/2015 Please review. documented in this encounterAdams County Regional Medical Center01-25-2022 Evaluation note* Encounter Date Diagnosis Assessment Notes [...] reported to have Osteoporosis . Continue Prolia [employer] Other Chief complaint Narrative - Reported* Patient is being seen for an initial Neurosurgical evaluation and Patient is referred by Dr. Adan Gonzalez for a 2nd opinion on her cervical spine. * Pt. is experiencing low back and neck pain. Pt. describes her symptoms as aching with tingling in the left shoulder area, and that the symptoms are constant. [id number] Work Phone: Evaluation note* Diagnosis Paraesophageal hernia- Primary Diaphragmatic hernia without mention of obstruction or gangrene documented in this encounter [facility] CenterEvaluation noteNo InformationNort [facility] Other Evaluation note* Diagnosis Paraesophageal hernia- Primary Diaphragmatic hernia without mention of obstruction or gangrene Paraesophageal hernia Diaphragmatic hernia without mention of obstruction or gangrene [facility] Encounter for education- Primary Counseling NOS Paraesophageal hernia Diaphragmatic hernia without mention of obstruction or gangrene documented in this encounter [facility] CenterEvaluation [facility]* Diagnosis S/P repair of paraesophageal hernia- Primary Other postprocedural status Paraesophageal hernia Diaphragmatic hernia without mention of obstruction or gangrene documented in this encounter [facility] CenterEvaluation noteNo assessment information availableOhiohealth [facility] Work Phone: Evaluation note* Diagnosis S/P repair of paraesophageal hernia- Primary Other postprocedural status Long-term current use of proton pump inhibitor therapy documented in this encounter [facility] Center[facility] note* Diagnosis Preop testing- Primary Unspecified pre-operative examination Cervical spondylosis with myelopathy Coagulation defect, unspecified (CMS/HCC) Cervical spondylosis with myelopathy Spinal stenosis, cervical region Other spondylosis with myelopathy, cervical region documented in this encounter [facility] Work Phone: [phone] note* Diagnosis Preop testing- Primary Unspecified pre-operative [...] encounter [facility] Work Phone: [phone] note* Diagnosis Cervical spondylosis with myelopathy documented in this encounter [facility] Work Phone: [phone] note* Diagnosis Cervical spondylosis with myelopathy documented in this encounter [facility] Work Phone: [phone] note* Diagnosis 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 documented in this encounter [facility] Work Phone: [phone] note* Diagnosis 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) documented in this encounter [facility] Work Phone: [phone] note* Diagnosis 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) documented in this encounter [facility] Work Phone: [phone] note* Diagnosis 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 Status post cervical spinal fusion Arthrodesis status documented in this encounter [facility] Work Phone: [phone] note* Diagnosis Paraesophageal hernia Diaphragmatic hernia without mention of obstruction or gangrene documented in this encounter [facility] Center[facility]* Diagnosis Cervical spondylosis with myelopathy documented in this encounter [facility] Work Phone: Evaluation note* Diagnosis Status post cervical spinal fusion- Primary Arthrodesis status documented in this encounter [facility] Work Phone: Evaluation note* Diagnosis Preop examination- Primary Preoperative examination, unspecified Paraesophageal hernia Diaphragmatic hernia without mention of obstruction or gangrene Communicating hydrocephalus (HCC) Communicating hydrocephalus Refusal of blood transfusions as patient is Mandaeism Refusal of treatment for reasons of adventist or conscience Stage 3 chronic kidney disease, unspecified whether stage 3a or 3b CKD (HCC) Essential hypertension Unspecified essential hypertension ADITI (obstructive sleep apnea) Obstructive sleep apnea (adult) (pediatric) Anxiety Anxiety state, unspecified Murmur Undiagnosed cardiac murmurs Paraesophageal hernia Diaphragmatic hernia without mention of obstruction or gangrene documented in this encounter [facility] Center[facility]* Diagnosis Onset Date Resolution Status Anemia acute CKD (chronic kidney disease) stage 2, GFR 60-89 ml/min acute Hyperlipidemia LDL goal <130 acute [id number] acute Hypokalemia acute Hyponatremia acute Renal artery aneurysm acute Vitamin D deficiency acute [facility] Work Phone: Evaluation note* Diagnosis Paraesophageal hernia Diaphragmatic hernia without mention of obstruction or gangrene Preop examination- Primary Preoperative examination, unspecified Paraesophageal hernia Diaphragmatic hernia without mention of obstruction or gangrene Communicating hydrocephalus (HCC) Communicating hydrocephalus Refusal of blood transfusions as patient is Mandaeism Refusal of treatment for reasons of adventist or conscience Stage 3 chronic kidney disease, unspecified whether stage 3a or 3b CKD (HCC) Essential hypertension Unspecified essential hypertension ADITI (obstructive sleep apnea) Obstructive sleep apnea (adult) (pediatric) Anxiety Anxiety state, unspecified Murmur Undiagnosed cardiac murmurs documented in this encounter [facility] CenterEvalunem[facility] [place] note* Diagnosis Primary osteoarthritis of right knee- Primary Acute pain of right knee documented in this encounter [facility] HealthcareEvaluation note* Diagnosis Primary osteoarthritis of right knee- Primary Pre-op examination documented in this encounter [facility] HealthcareEvaluation note* Diagnosis Primary osteoarthritis of right knee- Primary documented in this encounter [facility]* Diagnosis Onset Date Resolution Status Anemia acute CKD (chronic kidney disease) stage 2, GFR 60-89 ml/min acute Hyperlipidemia LDL goal <130 acute [id number] acute Hypokalemia acute Hyponatremia acute Renal artery aneurysm acute Vitamin D deficiency acute PLATE SETTER (ventriculoperitoneal) shunt status acute [facility] Work Phone: Evaluation note* Diagnosis Status post cervical spinal fusion Arthrodesis status documented in this encounter [facility] Work Phone: Evaluation note* Diagnosis Status post cervical spinal fusion- Primary Arthrodesis status Full incontinence of feces documented in this encounter [facility] Work Phone: Evaluation note* Diagnosis Primary osteoarthritis of right knee documented in this encounter [facility] HealthcareEvaluation note* Diagnosis Allergic rhinitis due to dust- Primary Allergic rhinitis due to other allergen Allergic contact dermatitis due to metals documented in this encounter [facility] HealthcareHistory and physical note Author Jorge Ramirez [facility] April 08, 2022 9:25am Note Date/Time April 08, 2022 9 :25am [facility] ENTER [address] [place] [address] Gastroenterology H&P Signed Patient: Mary Goode MR#: [id number] : 1950 Acct:[id number] Age/Sex: 71 / F Adm Date: 2 Loc: Room: Type: [facility] Attending Dr: Jorge Ramirez MD Copies to: [...] <Electronically signed by Jorge Ramirez MD> 04/08/22924 [facility] Work Phone: History and physical note Author Jorge Ramirez [facility] March 06, 2024 1:07pm Note Date/Time March 06, 2024 1 :07pm [facility] ENTER [address] [place] [address] Gastroenterology H&P Signed Patient: Mary Goode MR#: [id number] : 1950 Acct:[id number] Age/Sex: 73 / F Adm Date: 4 Loc: Room: Type: [facility] Attending Dr: Jorge Ramirez MD Copies to: MD Imer Clements MD~ Date of Service: 03/06/2024 HISTORY & PHYSICAL: Patient's history with special attention to the cardiovascular, pulmonary systems and the current problem was reviewed with the patient immediately prior to the procedure. Present medications and doses reviewed in the EMR. Allergies and pertinent laboratory tests were also reviewedat this time in the EMR. The physical examination, as below, was then performed. Indication, assessment and HPI: 73-year-old female who is referred for anemia . Iron studies not consistent with iron deficiency. Recent colonoscopy was negative recommended repeating at age 77. She has occasional loose stool. Family history of GI malignancy? Yes, mother with CRC in her 40s PHYSICAL EXAMINATION Mouth and Pharynx : moist mucus membranes, normal dentition Cardiac: regular rate, regular rhythm Pulmonary: normal respiratory effort, able to speak in complete sentences Neurological: alert and oriented x3, no focal deficits noted [...] Ramirez MD Documented By: Jorge Ramirez MD 03/06/24 1306 Signed By: <Electronically signed by Jorge Ramirez MD> 03/06/24 1307 [facility] Work Phone: Hismrfz general Narrative - Reported* Type Description Date Medical History hypertension dx age 47 Medical History HX hypokalemia 2006 Medical History HX hydrocephalus 2006 Medical History [...] aldoste ronism Hospitalization History same as above [facility] Other [place] general Narrative - Reported* Type Description Date [...] aldoste ronism Hospitalization History same as above [facility] Other History of Present illness Narrative* The [...] would like toproceed. * She is a Mandaeism and so we definitely discussed not using blood products. She also has a PLATE SETTER shunt and and so we are going to make certain that the monitoring team knows where the tubing is so that we do not accidentally stick in electrode into it. She is going to consider her options and tell us when she wants to schedule the surgery. [id number] Work Phone: Hospital Discharge instructions [...] Follow up with PCP. 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) Status post cervical spinal fusion Mireille Zurita MD [address] [place] [address] Referral ID Status Reason Start Date Expiration Date Visits Requested Visits Authorized [id number] Pending Review Specialty Services Required 06/16/2023 06/15/2024 1 1 [facility] Work Phone: reason for visit NarrativeReferral update - pain managementWheeler [facility] Other Reason for visit Narrative* Imaging (Routine) - Authorized Specialty Diagnoses / Procedures Referred By Heidi t Referred To Contact Radiology Diagnoses Status post cervical spinal fusion Procedures XR cervical spine 2-3 views Mireille Zurita MD [address] [place] [address] Phone: tel: fax: Referral ID Status Reason Start Date Expiration Date Visits Requested Visits Authorized [id number] Authorized Perform Procedure 10/19/2023 10/18/2024 1 1 [facility] Work Phone: reason for visit Narrative* Consultation (Routine) - Closed Specialty Diagnoses / Procedures Referred By Heidi t Referred To Contact Allergy Diagnoses Primary osteoarthritis of right knee Procedures [place] OFFICE/OUTPATIENT [facility] MDM 60 MINUTES Jr. Rush Knapp, [address] [facility] [address] [place] [address] Phone: tel: fax: Heather Bang MD [address] [facility] [address] [place] [address] Phone: tel: fax: Referral ID Status Reason Start Date Expiration Date V isits Requested Visits Authorized [id number] Closed Specialty Services Required 03/05/2024 09/01/[address] [facility] Healthcare Summary Purpose Family History No Family History Records Found Relationship Condition Age at Onset Recorded Date/T roney Not Specified Malignant neoplasm of rectum Unknown father Heart disease Unknown Relationship Condition Age at Onset Recorded Date/T roney mother Malignant neoplasm of rectum Unknown father Heart disease Unknown brother History of stroke Unknown Heart disease Unknown father Unknown mother Family history of colon cancer Unknown Malignant neoplasm Unknown Unknown Relationship Condition Age at Onset Recorded Date/T roney mother Malignant neoplasm of rectum Unknown father Heart disease Unknown brother History of stroke Unknown Heart disease Unknown Diabetes mellitus Unknown father Unknown mother Family history of colon cancer Unknown Malignant neoplasm Unknown Unknown brother Diabetes mellitus Unknown Advance Directives No Advanced Directives Records FoundDocuments on File Type Date Recorded Patient 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 Expl 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 Advance Directive(s) 06/23/2006 12:00 AM Documents on File Type Date Recorded Patient 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 Expl 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 Advance Directive(s) 06/23/2006 12:00 AM Documents on File Type Date Recorded Patient 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 Expl 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 Advance Directive(s) 11/03/2021 10:09 AM Advance Directive(s) 06/23/2006 12:00 AM Documents on File Type Date Recorded Patient 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 Expl 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 Advance Directive(s) 11/10/2021 3:28 PM Advance Directive(s) 11/03/2021 10:09 AM Advance Directive(s) 06/23/2006 12:00 AM Advance Directive Response Recorded Date/ Time Advance Directives Yes January 11:06am Advance Directive Response Recorded Date/ Time Advance Directives Yes January 10:06am Documents on File Type Date Recorded Patient 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 Expl 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 Advance Directive(s) 11/03/2021 10:09 AM [...] Patient condition do es not warrant discussion Date Activated Date Inactivated Comments 03/21/2023 4:19 PM 03/23/2023 12:38 PM Question Answer Comments Plan of Care: Code Status Discussion Not Compl eted Decision Maker: Provider yudith Rationale: Patient condition does not warra nt discussion Date Activated Date Inactivated Comments 03/21/2023 6:49 AM 03/21/2023 4:19 PM Question Answer Comments Plan of Care: Code Status Discussion Not Compl eted Decision Maker: Provider Rationale: Patient condition does not warra nt discussion Documents on File Type Date Recorded Patient 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 Expl anation Advance Directive(s) 11/03/2021 10:09 AM Advance Directive(s) 06/23/2006 Date Activated Date Inactivated Comments 03/21/2023 4:19 PM 03/23/2023 12:38 PM Question Answer Comments Plan of Care: Code Status Discussion Not Compl eted Decision Maker: Provider yudith Rationale: Patient condition does not warra nt discussion Date Activated Date Inactivated Comments 03/21/2023 6:49 AM 03/21/2023 4:19 PM Question Answer Comments Plan of Care: Code Status Discussion Not Compl eted Decision Maker: Provider Rationale: Patient condition does not warra nt discussion Reason for Referral Specialty Diagnoses / Procedures Referred By Heidi t Referred To Contact CT IMAGING Diagnoses Paraesophageal hernia Procedures CT ABD/PEL W IVCON CT ABD & PEL[place] [address] [place] [address] Ct Imaging Referral ID Status Reason Start Date Expiration Date Visits Requested Visits Authorized [id number] Authorized Auto-Generat ed Referral 10/01/2021 10/31/2022 1 1 Specialty Diagnoses / Procedures Referred By Contac t Referred To Contact XR IMAGING Diagnoses Paraesophageal hernia Procedures XR UPPER GI SINGLE CONTRAST RADIOLOGIC EXAM UPR GI TR[place] [address] [place] [address] Xr Imaging Referral ID Status Reason Start Date Expiration Date Visits Requested Visits Authorized [id number] Pending Review Auto-Generat ed Referral 10/01/2021 10/31/2022 1 1 Specialty Diagnoses / Procedures Referred By Contac t Referred To Contact [facility] Diagnoses Paraesophageal hernia Procedures MANOMETRY ESOPHAGEAL ESOPHAGEAL MOTILITY STUDY W/INTERP&[place] [address] [place] [address] [facility] [place] [address] [place] [address] Referral ID Status Reason Start Date Expiration Date Visits Requested Visits Authorized [id number] Pending Review Auto-Generat ed Referral 10/01/2021 09/28/2022 1 1 Reason *Waiting for appt Evaluate and Treat Back and Leg Pain Diagnosis 1 DDD (degenerative di sc disease), lumbar (M51.36) Referral Organization [facility] u[facility]gery Referring Provider First Name Keagan Referring Provider Last Name Farrukh Referring Provider Specialty Neurologica l Surgery Referred Organization [facility] Pain Managemen t Bone [place] Referred Provider Ziyad Ngo Referred Address [address] [place], [place],[address] Referred Provider Specialty Pain Medicin e Referral Priority Routine General Notes Liliana Sagastume 022 02:47:54 PM >Received today and sent P2P Specialty Diagnoses / Procedures Referred By Contac t Referred To Contact Radiology Diagnoses Cervical spondylosis with myelopathy Procedures XR chest 2 views Mireille Zurita MD [address] [place] [address] Referral ID Status Reason Start Date Expiration Date Visits Requested Visits Authorized [id number] Authorized Perform Procedure 03/10/2023 03/09/2024 1 1 Specialty Diagnoses / Procedures Referred By Contac t Referred To Contact Diagnoses Acute post-operative pain S/P cervical spinal fusion Araseli Faustin, CASE MANAGEMENT SPECIALIST-DIRECTOR CASE [address] [place] [address] Referral ID Status Reason Start Date Expiration Date Visits Re quested Visits Authorized [id number] Closed 1 1 Specialty Diagnoses / Procedures Referred By Contac t Referred To Contact Diagnoses Cervical spondylosis with myelopathy Procedures ECG 12 Lead Mireille Zurita MD [address] [place] [address] Referral ID Status Reason Start Date Expiration Date V isits Requested Visits Authorized [id number] Pending Review 03/10/2023 03/09/2024 1 1 Specialty Diagnoses / Procedures Referred By Contac t Referred To Contact Radiology Diagnoses 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 stenosis of cervical region ([facility]/HCC) Procedures XR cervical spine 2-3 views Mireille Zurita MD [address] [place], [place] [address] Referral ID Status Reason Start Date Expiration Date Visits Requested Visits Authorized [id number] Authorized Perform Procedure 05/10/2023 05/09/2024 1 1 Specialty Diagnoses / Procedures Referred By Contac t Referred To Contact Radiology Diagnoses Cervical spondylosis with myelopathy Procedures XR cervical spine 2-3 views Mireille Zurita MD [address] [place], [place] [address] Referral ID Status Reason Start Date Expiration Date Visits Requested Visits Authorized [id number] Authorized Perform Procedure 06/16/2023 06/15/2024 1 1 Specialty Diagnoses / Procedures Referred By Contac t Referred To Contact Radiology Diagnoses Status post cervical spinal fusion Procedures XR cervical spine 2-3 views Mireille Zurita MD [address] [place], [place] [address] Referral ID Status Reason Start Date Expiration Date Visits Requested Visits Authorized [id number] Authorized Perform Procedure 10/19/2023 10/18/2024 1 1 Specialty Diagnoses / Procedures Referred By Contac t Referred To Contact CT IMAGING Diagnoses Paraesophageal hernia Procedures CT ABD/PEL W IVCON CT ABD & PELVIS W/[place] [address] [place] [address] [place] [address] Referral ID Status Reason Start Date Expiration Date V isits Requested Visits Authorized [id number] Closed Auto-Generate d Referral 10/01/2021 10/31/2022 1 1 Chief Complaint and Reason for Visit Chief Complaint m54.16 m41.9 ventric ular intracranial shunt Chief Complaint m54.16 m41.9 ventric ular intracranial shunt m54.2 Iron Deficiency Anemia Chief Complaint m54.2 Iron Deficiency Anemia z98.890 z87.19 Chief Complaint z98.890 z87.19 r41.89 g91.2 Chief Complaint z98.890 z87.19 r41.89 g91.2 Z12.31 Z13.820 Chief Complaint z98.890 z87.19 r41.89 g91.2 Z12.31 Z13.820 r knee pain Chief Complaint Screening Chief Complaint Screening E87.6 I12.9 E55.9 Chief Complaint Screening E87.6 I12.9 E55.9 RENAL 6 MONTH F/U Reason for Visit Anemia CKD (chronic kidney disease) stage 2, GFR 60-89 ml/min Hyperlipidemia LDL goal <130 [id number] Hypokalemia Hyponatremia Renal artery aneurysm Vitamin D deficiency Chief Complaint Screening E87.6 I12.9 E55.9 RENAL 6 MONTH F/U hiatal hernia hiatal hernia Reason for Visit Anemia CKD (chronic kidney disease) stage 2, GFR 60-89 ml/min Hyperlipidemia LDL goal <130 [id number] Hypokalemia Hyponatremia Renal artery aneurysm Vitamin D deficiency Chief Complaint E87.6 I12.9 E55.9 RENAL 6 MONTH F/U hiatal hernia hiatal hernia r15.9 shunt check, having MRI in the morning Reason for Visit Anemia CKD (chronic kidney disease) stage 2, GFR 60-89 ml/min Hyperlipidemia LDL goal <130 [id number] Hypokalemia Hyponatremia Renal artery aneurysm Vitamin D deficiency Chief Complaint E87.6 I12.9 E55.9 RENAL 6 MONTH F/U hiatal hernia hiatal hernia r15.9 shunt check, having MRI in the morning Reason for Visit Anemia CKD (chronic kidney disease) stage 2, GFR 60-89 ml/min Hyperlipidemia LDL goal <130 [id number] Hypokalemia Hyponatremia Renal artery aneurysm Vitamin D deficiency PLATE SETTER (ventriculoperitoneal) shunt status Chief Complaint * Patient is being seen for Patient is here for follow-up after completing her cervical CT-scan. and a follow-up Neurosurgical visit. * Pt. is experiencing neck and low back pain. Pt. describes her symptoms as aching, and that the symptoms are intermittent. Additional Source Comments INFORMATION SOURCE (unrecogn ized section and content) DATE CREATED AUTHOR 11/02/2017 [facility] DATE CREATED AUTHOR AUTHOR'S ORGANIZ ATION 11/25/2021 [facility] DATE CREATED AUTHOR AUTHOR'S ORGANIZ ATION 06/02/2022 [facility] DATE CREATED AUTHOR AUTHOR'S ORGANIZ ATION 07/31/2022 [facility] DATE CREATED AUTHOR AUTHOR'S ORGANIZ ATION 01/22/2023 [facility] DATE CREATED AUTHOR AUTHOR'S ORGANIZ ATION 03/30/2023 [facility] DATE CREATED AUTHOR AUTHOR'S ORGANIZ ATION 05/29/2023 [facility] DATE CREATED AUTHOR AUTHOR'S ORGANIZ ATION 01/20/2024 [facility] DATE CREATED AUTHOR AUTHOR'S ORGANIZ ATION 02/05/2024 [facility] DATE CREATED AUTHOR AUTHOR'S ORGANIZ ATION 03/19/2024 [facility] DATE CREATED AUTHOR AUTHOR'S ORGANIZ ATION 03/22/2024 [facility] DATE CREATED AUTHOR AUTHOR'S ORGANIZ ATION 03/23/2024 [facility] DATE CREATED AUTHOR AUTHOR'S ORGANIZ ATION 04/07/2024 [facility] Source Comments (unrecognize d section and content) In the event this informatio n is protected by the Federal Confidentiality of Alcohol and Drug Abuse Patient Records regulations: The Federal rules restrict any use of the information to criminally investigate or prosecute any alcohol or drug abuse patient.[facility] the event this information is protected by the Federal Confidentiality of Alcohol and Drug Abuse Patient Records regulations: The Federal rules restrict any use of the information to criminally investigate or prosecute any alcohol or drug abuse patient.[facility] Center[facility] the event this information is protected by the Federal Confidentiality of Alcohol and Drug Abuse Patient Records regulations: The Federal rules restrict any use of the information to criminally investigate or prosecute any alcohol or drug abuse patient.[facility] Center[facility] the event this information is protected by the Federal Confidentiality of Alcohol and Drug Abuse Patient Records regulations: The Federal rules restrict any use of the information to criminally investigate or prosecute any alcohol or drug abuse patient.[facility] Center[facility] the event this information is protected by the Federal Confidentiality of Alcohol and Drug Abuse Patient Records regulations: The Federal rules restrict any use of the information to criminally investigate or prosecute any alcohol or drug abuse patient.[facility] Center[facility] the event this information is protected by the Federal Confidentiality of Alcohol and Drug Abuse Patient Records regulations: The Federal rules restrict any use of the information to criminally investigate or prosecute any alcohol or drug abuse patient.[facility] Center[facility] the event this information is protected by the Federal Confidentiality of Alcohol and Drug Abuse Patient Records regulations: The Federal rules restrict any use of the information to criminally investigate or prosecute any alcohol or drug abuse patient.[facility] CenterIn the event this information is protected by the Federal Confidentiality of Alcohol and Drug Abuse Patient Records regulations: The Federal rules restrict any use of the information to criminally investigate or prosecute any alcohol or drug abuse patient.[facility] CenterIn the event this information is protected by the Federal Confidentiality of Alcohol and Drug Abuse Patient Records regulations: The Federal rules restrict any use of the information to criminally investigate or prosecute any alcohol or drug abuse patient.[facility] CenterIn the event this information is protected by the Federal Confidentiality of Alcohol and Drug Abuse Patient Records regulations: The Federal rules restrict any use of the information to criminally investigate or prosecute any alcohol or drug abuse patient.[facility] CenterIn the event this information is protected by the Federal Confidentiality of Alcohol and Drug Abuse Patient Records regulations: The Federal rules restrict any use of the information to criminally investigate or prosecute any alcohol or drug abuse patient.[facility] CenterIn the event this information is protected by the Federal Confidentiality of Alcohol and Drug Abuse Patient Records regulations: The Federal rules restrict any use of the information to criminally investigate or prosecute any alcohol or drug abuse patient.[facility] CenterIn the event this information is protected by the Federal Confidentiality of Alcohol and Drug Abuse Patient Records regulations: The Federal rules restrict any use of the information to criminally investigate or prosecute any alcohol or drug abuse patient.[facility] Reason for Visit (unrecogniz ed section and [...] repair Specialty Diagnoses / Procedures Referred By Enriquetaac t Referred To Contact Radiology Diagnoses Cervical spondylosis with myelopathy Procedures XR chest 2 views Mireille Zurita MD [address] [place] [address] Referral ID Status Reason Start Date Expiration Date Visits Requested Visits Authorized [id number] Authorized Perform Procedure 03/10/2023 03/09/2024 1 1 Specialty Diagnoses / Procedures Referred By Contac t Referred To Contact Diagnoses Spinal stenosis, cervical region Other spondylosis with myelopathy, cervical region Spinal stenosis, cervical region [M48.02] Other spondylosis with myelopathy, cervical region [M47.12] Procedures [place] ARTHRD ANT INTERDY CERVCL BELW C2 EA ADDL NTRSPC [place] ARTHRD ANT INTERBODY DECOMPRESS CERVICAL BELW C2 [place] ALLOGRAFT FOR SPINE SURGERY ONLY STRUCTURAL [place] ANTERIOR INSTRUMENTATION 4-7 VERTEBRAL SEGMENTS C3-4, C4-5, C5-6, C6-7 ANTERIOR DISC EXCISION/ ALLOGRAFT FUSION & PLATE FIXATION WITH FLAT PLATE CERVICAL X-RAY Mireille Zurita MD [address] [place], [place] [address] [address] [address] Referral ID Status Reason Start Date Expiration Date Visits Re quested Visits Authorized [id number] 1 1 Specialty Diagnoses / Procedures Referred By Contree t Referred To Contact Diagnoses Cervical spondylosis with myelopathy Procedures ECG 12 Lead Mireille Zurita MD [address] [place], [place] [address] Referral ID Status Reason Start Date Expiration Date V isits Requested Visits Authorized [id number] Pending Review 03/10/2023 03/09/2024 1 1 Reason Comments Post-op Visit Specialty Diagnoses / Procedures Referred By Enriquetaac t Referred To Contact Radiology Diagnoses 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 stenosis of cervical region ([facility]) Procedures XR cervical spine 2-3 views Mireille Zurita MD [address] [place] [address] Referral ID Status Reason Start Date Expiration Date Visits Requested Visits Authorized [id number] Authorized Perform Procedure 05/10/2023 05/09/2024 1 1 Reason Comments Post-op Spine Surgery Intermittent neck stiffness and headaches. Reason Comments Refill Request Specialty Diagnoses / Procedures Referred By Heidi li Referred To Contact Radiology Diagnoses Cervical spondylosis with myelopathy Procedures XR cervical spine 2-3 views Mireille Zurita MD [address] [place] [address] Referral ID Status Reason Start Date Expiration Date Visits Requested Visits Authorized [id number] Authorized Perform Procedure 06/16/2023 06/15/2024 1 1 Reason Comments Follow-up Patient is having no symptoms. Reason Comments Radiology CT Specialty Diagnoses / Procedures Referred By Heidi li Referred To Contact CT IMAGING Diagnoses Paraesophageal hernia Procedures CT ABD/PEL W IVCON CT ABD & PELVIS W/[place] [address] [facility] [address] [place] [address] [place] [address] Referral ID Status Reason Start Date Expiration Date V isits Requested Visits Authorized [id number] Closed Auto-Generate d Referral 10/01/2021 10/31/2022 1 1 Reason Comments Pain Reason Comments Pre-op Exam Reason Comments Follow-up Patient is complaini ng of tension in her neck. She describes it as intermittent aching. Reason Comments Allergy Testing Pt here for first re ad on metal patch testing Care Teams (unrecognized sec tion and content) Individual Pension Consultant Relationship Specialty Start Date End Date Cade Guerreroelisabet Etta [address] [facility] [place] [address] PCP - General 08/13/04 Individual Pension Consultant Relationship Specialty Start Date End Date Monika Guerrero [address] [facility] [address] PCP - General 08/13/04 Individual Pension Consultant Relationship Specialty Start Date End Date Monika Guerrero [address] [place], [place] [address] [address] PCP - General 08/13/04 Individual Pension Consultant Relationship Specialty Start Date End Date Imer Purcell MD [address] [place] [address] PCP - General Family Practice 11/03/21 Individual Pension Consultant Relationship Specialty Start Date End Date Imer Purcell MD [address] [place] [address] PCP - General Family Practice 11/03/21 Individual Pension Consultant Relationship Specialty Start Date End Date Imer Purcell MD [address] [place] [address] PCP - General Family Practice 11/03/21 Individual Pension Consultant Relationship Specialty Start Date End Date Imer Purcell MD [address] [place] [address] PCP - General Family Practice 11/03/21 Individual Pension Consultant Relationship Specialty Start Date End Date Imer Purcell MD [address] [place] [address] PCP - General Family Practice 11/03/21 Team [...] Karlie Purcell MD Primary Care Provider Active Jorge Ramirez MD Attending Provider Active Individual Pension Consultant Relationship Specialty Start Date End Date Imer Purcell MD [address] [place] [address] PCP - General Family Medicine 11/03/21 Team Status: Inactive Member Role Status Dates Imer Purcell MD Primary Care Provider Active JERALD TurciosC Attending Provider Active Team Status: Inactive Member Role Status Dates Imer Purcell MD Primary Care Provider Active Marika Friedman PA-C Attending Provider Active Individual Pension Consultant Relationship Specialty Start Date End Date Imer Purcell MD [address] [place] [address] PCP - General 12/07/22 Individual Pension Consultant Relationship Specialty Start Date End Date Imer Purcell MD [address] [place] [id number] PCP - General 12/07/22 Individual Pension Consultant Relationship Specialty Start [place] [address] [place], [place] [id number] PCP - General 12/07/22 Individual Pension Consultant Relationship Specialty Start Date End Date Imer Purcell MD [address] [place] [id number] PCP - General 12/07/22 Individual Pension Consultant Relationship Specialty Start Date End Date Imer Purcell MD [address] [place] [address] PCP - General 12/07/22 Individual Pension Consultant Relationship Specialty Start Date End Date Imer Purcell MD [address] [place] [address] PCP - General 12/07/22 Individual Pension Consultant Relationship Specialty Start Date End Date Imer Purcell MD PCP - General Family Medicine 11/03/21 Individual Pension Consultant Relationship Specialty Start Date End Date Imer Purcell MD [address] [place] [address] PCP - General 12/07/22 Individual Pension Consultant Relationship Specialty Start Date End Date Imer Purcell MD [address] [place] [address] PCP - General 12/07/22 Team Status: Inactive Member Role Status Dates Imer Purcell MD Primary Care Provide r, Attending Provider Active Start: December 08, 2023 End: December 08, 2023 Individual Pension Consultant Relationship Specialty Start Date End Date Imer Purcell MD PCP - General Family Medicine 11/03/21 Team Status: Inactive Member Role Status Dates Imer Purcell MD Primary Care Provider Active Start: January 19, 2024 End: January 19, 2024 Gino Barbosa MD Attending Provider Active Start : January 19, 2024 End: January 19, 2024 Team Status: Inactive Member Role Status Dates Imer Purcell MD Primary Care Provider Active Start: January 24, 2024 End: January 24, 2024 Gino Barbosa MD Attending Provider Active Start : January 24, 2024 End: January 24, 2024 Individual Pension Consultant Relationship Specialty Start Date End Date Monika Guerrero [address] [address] PCP - General 08/13/04 11/02/21 Individual Pension Consultant Relationship Specialty Start Date End Date Imer Purcell MD [address] [place] [address] PCP - General Family Medicine 05/24/23 Imer Purcell MD [address] [place] [facility] [address] Family Medicine 05/24/23 Individual Pension Consultant Relationship Specialty Start Date End Date Imer Purcell MD [address] [place] [facility] [address] PCP - General Family Medicine 05/24/23 Imer Purcell MD [address] [place] [facility] [address] Family Medicine 05/24/23 Individual Pension Consultant Relationship Specialty Start Date End Date Imer Purcell MD [address] [place] [facility] [address] PCP - General Family Medicine 05/24/23 Imer Purcell MD [address] [place] [facility] [address] Family Medicine 05/24/23 Individual Pension Consultant Relationship Specialty Start Date End Date Imer Purcell MD [address] [place] [facility] [address] PCP - General Family Medicine 05/24/23 Imer Purcell MD [address] [place] [facility] [address] Family Medicine 05/24/23 Individual Pension Consultant Relationship Specialty Start Date End Date Imer Purcell MD [address] [place] [facility] [place] [address] PCP - General Family Medicine 05/24/23 Imer Purcell MD [address] [place] [address] Family Medicine 05/24/23 Team Status: Inactive Member Role Status Dates Imer Purcell MD Primary Care Provider Active Start: March 06, 2024 End: March 06, 2024 Jorge Ramirez MD Attending Provider Active S tart: March 06, 2024 End: March 06, 2024 Team Status: Active Member Role Status Dates Imer Purcell MD Primary Care Provider Active Start: March 06, 2024 Jorge Ramirez MD Attending Provider, Other Provider Active Start: March 06, 2024 Team Status: Active Member Role Status Dates Imer Purcell MD Primary Care Provide r, Attending Provider Active Start: March 08, 2024 Team Status: Inactive Member Role Status Dates Imer Purcell MD Primary Care Provider Active Start: March 08, 2024 End: March 08, 2024 Keagan Chadwick MD Attending Provider Active Star t: March 08, 2024 End: March 08, 2024 Team Status: Inactive Member Role Status Dates Imer Purcell MD Primary Care Provide r, Attending Provider Active Start: March 08, 2024 End: March 08, 2024 Individual Pension Consultant Relationship Specialty Start Date End Date Imer Purcell MD [facility] [place] [address] PCP - General 12/07/22 Individual Pension Consultant Relationship Specialty Start Date End Date Imer Purcell MD [address] [place] [address] PCP - General 12/07/22 Individual Pension Consultant Relationship Specialty Start Date End Date Imer Purcell MD [address] [place] [address] PCP - General Family Medicine 05/24/23 Imer Purcell MD [address] [place] [address] Family Medicine 05/24/23 Individual Pension Consultant Relationship Specialty Start Date End Date Imer Purcell MD [address] [place] [address] PCP - General [facility] Medicine 05/24/23 Imer Purcell MD [address] [place] [address] Family Medicine 05/24/23 Individual Pension Consultant Relationship Specialty Start Date End Date Imer Purcell MD [address] [place] [address] PCP - General [facility] 05/24/23 Imer Purcell MD [address] [place] [address] Family Medicine 05/24/23 Goals (unrecognized section and content) Goals may [...] Bronson RN) 0038 (Given - Provider: Luzma Adhikari RN)0739 (Given - Provider: Beth Bronson RN)1630 (Due) [...] 2104 (Given - Provider: Janett Galvan RN) 203 (Given - Provider: Luzma Adhikari RN) 2100 (Due) ceFAZolin in dextrose (iso-os) (Ancef) [...] Prophylaxis 0452 (New Bag - Provider: Janett Mandy, RN)0522 (Stopped - Provider: Janett Galvan RN)1118 [...] RN) 0805 (Given - Provider: Beth Bronson RN)2038 (Given - Provider: Luzma Adhikari RN) 0920 (Given - Provider: Beth Bronson RN)2099 (Due) donepezil (Aricept) tablet 5 mg 5 [...] on Tue03/21/23 at 2100, Phase II/On Unit 2103 (Given - Provider: Janett Galvan RN) 0900 (Not Given - Provider: Beth Bronson RN - Reason: Medication not available)2038 (Given - Provider: Luzma Adhikari RN) 0920 (Given - Provider: Beth Bronson, MINDY)2100 (Due) losartan (Cozaar) tablet 50 mg 50 mg, oral, Daily, First dose on Tue03/21/23 at 1630, Phase II/On Unit 1630 (Not Given - Provider: Samina Chvaira RN - Reason: Other - Comment: taken [...] Galvan RN) 0617 (Given - Provider: Luzma Adhikari RN) pantoprazole (ProtoNix) injection 40 mg(Linked Group 1) [...] Provider: Lexy Holly RN)0737 (Paused - Provider: RESHMA PickeringREAL ESTATE OFFICE MANAGER - Comment: Switch to gravity)0738 (New Bag - Provider: RESHMA PickeringREAL ESTATE OFFICE MANAGER)1251 (Stopped - Provider: CLAIR Pickering) lactated Ringer's [...] fluids. 1717 (New Bag - Provider: Samina Chavira RN) 0929 (Rate/Dose Verify - Provider: Beth Bronson [...] of dose. 1344 (Given - Provider: Julissa Pagan, MINDY)1434 (Given - Provider: Julissa Pagan RN) lidocaine-epinephrine [...] 2150 (Given - Provider: Janett Galvan RN) 112 (Given - Provider: Beth Bronson RN)2038 (Given [...] BE BASED ON THE PRIMARY CLINICAL RECORDS. [facility]. provides no warranty or guarantee of the accuracy or completeness of information in this document.
--- NOTE | 2024-05-06 11:40 | XR_ITS ---
The [address] [address] Patient Name: EMILY LUDWIG MRN: [id number] date: 1950 Sex: F Assigned Patient Location: ER Current Patient Location: Accession/Order Number: [id number] Exam Date: 05/06/2024 11:50 Report Date: 05/06/2024 12:45 At the request of: KEIKO ROSALES Procedure: XR shoulder LT min 2V HISTORY: Left shoulder pain after a fall. XR shoulder LT min 2V: 05/06/2024 11:50 AM EST COMPARISON: None. FINDINGS: No fracture or dislocation is seen. There are postsurgical changes involving the visualized lower cervical spine at the edge of the [id number]. There is a type I acromion. No joint space narrowing of the acromioclavicular joint. There is enthesophyte formation of the greater tuberosity. There are marginal osteophytes of the glenoid. The glenohumeral joint is not well profiled. XR/XR shoulder LT min 2V IMPRESSION: 1. No acute fracture or dislocation is seen. 2. There is evidence of degenerative change of the glenohumeral joint. However, the glenohumeral joint is not well profiled on this examination to assess the extent of joint space narrowing. A Grashey view of the shoulder could be obtained to evaluate the extent of joint space narrowing of the glenohumeral joint is clinically indicated. Electronically authenticated by: IMER JEAN Date: 05/06/2024 12:45
--- NOTE | 2024-05-06 11:41 | ED.UPPEXIN1 ---
HPI HPI - Extremity Injury (Upper) General Chief Complaint: Extremity Injury, Upper Stated Complaint: UPPER EXTREMITY INJURY Time Seen by Provider: 05/06/24 11:40 Source: patient Mode of arrival: walk-in History of Present Illness HPI narrative: Patient here complaining of pain in her left shoulder. She says she fell on the shoulder yesterday. She did not have a syncopal episode. She says she slipped in some landscaping type material. She has no pain in her head or neck area. She has not had previous fracture on that side. She has had previous shoulder dislocation. She does not have any loss of feeling to the lower forearm or hand. She was examined and x-rays were ordered. Related Data Home Medications ?Medication ?Instructions ?Recorded ?Confirmed amlodipine 10 mg tablet 10 mg PO DAILY 08/03/23 09/08/23 cholecalciferol (vitamin D3) 50 2,000 unit PO DAILY 08/03/23 09/08/23 mcg (2,000 unit) capsule (D32000) donepezil 5 mg tablet 5 mg PO DAILY 08/03/23 09/08/23 ferrous sulfate 325 mg (65 mg 325 mg PO DAILY 08/03/23 09/08/23 iron) tablet (Feosol) gabapentin 300 mg capsule 300 mg PO DAILY 08/03/23 09/08/23 hydrochlorothiazide 25 mg tablet 25 mg PO DAILY 08/03/23 09/08/23 labetalol 200 mg tablet 200 mg PO DAILY 08/03/23 09/08/23 lansoprazole 30 mg capsule,delayed 30 mg PO DAILY 08/03/23 09/08/23 release losartan 50 mg tablet 50 mg PO DAILY 08/03/23 09/08/23 potassium chloride 10 mEq 10 meq PO DAILY 08/03/23 09/08/23 tablet,extended release venlafaxine 75 mg tablet 75 mg PO DAILY 08/03/23 09/08/23 Allergies Allergy/AdvReac Type Severity Reaction Status Date / Time No Known Drug Allergies Allergy Verified 11/05/22 10:23 Opioid HPI Opioid Management Most Recent Pain and Opioid Data: No Data to Display [facility] Medical History (Updated 05/06/24 @ 12:13 by Anirudh Quezada MD) Elevated cholesterol ?E78.00 - Pure hypercholesterolemia, unspecified (ICD-10) Acid reflux ?K21.9 - Gastro-esophageal reflux disease without esophagitis (ICD-10) Kidney disease ?N28.9 - Disorder of kidney and ureter, unspecified (ICD-10) Cataract ?H26.9 - Unspecified cataract (ICD-10) Hypertension ?I10 - Essential (primary) hypertension (ICD-10) Anxiety ?F41.9 - Anxiety disorder, unspecified (ICD-10) Hydrocephalus ?G91.9 - Hydrocephalus, unspecified (ICD-10) Surgical History (Updated 08/03/23 @ 10:41 by Aneta Jaquez) History of brain shunt ?Z98.2 - Presence of cerebrospinal fluid drainage device (ICD-10) History of neck surgery ?Z98.890 - Other specified postprocedural states (ICD-10) History of sinus surgery ?Z98.890 - Other specified postprocedural states (ICD-10) History of repair of hiatal hernia ?Z98.890 - Other specified postprocedural states (ICD-10) ?Z87.19 - Personal history of other diseases of the digestive system (ICD-10) History of tonsillectomy ?Z90.89 - Acquired absence of other organs (ICD-10) History of appendectomy ?Z90.49 - Acquired absence of other specified parts of digestive tract (ICD-10) History of hysterectomy ?Z90.710 - Acquired absence of both cervix and uterus (ICD-10) History of esophagogastroduodenoscopy (EGD) ?Z98.890 - Other specified postprocedural states (ICD-10) History of colonoscopy ?Z98.890 - Other specified postprocedural states (ICD-10) Family History (Updated 08/03/23 @ 10:36 by Aneta Jaquez) Brother Family history of stroke Other Family history of cancer Heart disease Social History (Updated 08/03/23 @ 10:36 by Aneta Jaquez) Within the past year, how often did you have a drink containing alcohol: monthly or less Smoking status: Never smoker Non-prescribed substance use: denies use Highest level of school completed/degree received: high school graduate Little interest or pleasure in doing things: not at all Feeling down, depressed, or hopeless: not at all Exam Narrative Exam Narrative: Awake alert pleasant. On gross inspection there is no defect in the glenoid fossa or evidence of obvious dislocation. There is no tenderness over the clavicular area. Most of pain is over the anterior humeral head. She has spontaneous unrestricted movement of the elbow and the wrist area with no evidence of injury in these areas. Pulses to the upper extremity are normal. She has no other abrasions or contusions to the head or neck area. Constitutional Vital Signs, click to edit/add: Last Vital Signs Temp 97.9 F 05/06/24 11:09 Pulse 69 05/06/24 11:09 Resp 18 05/06/24 11:09 BP 121/56 05/06/24 11:09 Pulse Ox 96 05/06/24 11:09 O2 Del Method Room Air 05/06/24 11:09 Course Vital Signs Vital signs: Vital Signs Temperature 97.9 F 05/06/24 11:09 Pulse Rate 69 05/06/24 11:09 Respiratory Rate 18 05/06/24 11:09 Blood Pressure 121/56 05/06/24 11:09 Pulse Oximetry 96 05/06/24 11:09 Oxygen Delivery Method Room Air 05/06/24 11:09 Temperature 97.9 F 05/06/24 11:09 Pulse Rate 69 05/06/24 11:09 Respiratory Rate 18 05/06/24 11:09 Blood Pressure 121/56 05/06/24 11:09 Pulse Oximetry 96 05/06/24 11:09 Oxygen Delivery Method Room Air 05/06/24 11:09 MDM - Extremity Injury (Upper) MDM Narrative Medical decision making narrative: X-rays of the shoulder were obtained and evaluated by myself. I do not see any obvious bony abnormality. This will be reviewed by the radiologist. Her neurovascular examination extremity is normal. I will place her in a sling. We are recommending ice and simple [id number] analgesics. We will contact her if there is other abnormalities noted by the radiologist Discharge Plan Discharge Chief Complaint: Extremity Injury, Upper Clinical Impression: Other sprain of left shoulder joint, initial encounter Patient Disposition: Home, Self-Care Time of Disposition Decision: 12:13 Prescriptions / Home Meds: No Action amlodipine 10 mg tablet 10 mg PO DAILY donepezil 5 mg tablet 5 mg PO DAILY gabapentin 300 mg capsule 300 mg PO DAILY hydrochlorothiazide 25 mg tablet 25 mg PO DAILY losartan 50 mg tablet 50 mg PO DAILY labetalol 200 mg tablet 200 mg PO DAILY potassium chloride 10 mEq tablet extended release 10 meq PO DAILY lansoprazole 30 mg capsule,delayed release(DR/EC) 30 mg PO DAILY venlafaxine 75 mg tablet 75 mg PO DAILY cholecalciferol (vitamin D3) [D3-2000] 50 mcg (2,000 unit) capsule 2,000 unit PO DAILY ferrous sulfate [Feosol] 325 mg (65 mg iron) tablet 325 mg PO DAILY Print Language: Belarusian Additional Instructions: Apply ice intermittently for 2 days. Wear sling for 1 to 2 days then follow-up with your primary care doctor start gentle range of motion testing at that time Referrals: Rico Agarwal MD [Primary Care Provider] - 1 week
== END 2024-05-06 12:35 | disposition home or self-care (01) ==
PROVIDERS: Emergency Provider Emergency Medicine Emergency Medical Services; PCP Family Medicine
DX: S43.492A Other sprain of left shoulder joint, initial encounter (principal); W01.0XXA Fall on same level from slipping, tripping and stumbling without subsequent striking against object, initial encounter
CPT/HCPCS: 73030; 99283

== ENCOUNTER 2024-05-07 13:36 | Outpatient (OUT) | payer MEDICARE, SELFPAY ==
--- NOTE | 2024-05-07 13:42 | CT_ITS ---
The [address] [address] Patient Name: EMILY LUDWIG MRN: [id number] date: 1950 Sex: F Assigned Patient Location: CT Current Patient Location: CT Accession/Order Number: [id number] Exam Date: 05/07/2024 13:46 Report Date: 05/07/2024 14:48 At the request of: IMER PURCELL Procedure: CT sinus wo con CT sinuses without contrast, 05/07/2024. HISTORY: Chronic sinusitis. COMPARISON: None. TECHNIQUE: Noncontrast axial CT images obtained through the sinuses. Reconstructions obtained in the sagittal and coronal planes. Dose reduction techniques were achieved by using automated exposure control and/or adjustment of mA and/or kV according to patient size and/or use of iterative reconstruction technique. FINDINGS: Maxillary sinuses are clear. Ostiomeatal units are patent. There has been previous partial resection of the right middle turbinate and right uncinate process. There is some mucosal thickening along the nasal passages. No nasal cavity polyps. Nasal septum deviates to the right by approximately 2 mm. Mild mucosal thickening in the ethmoid air cells. Frontal sinuses are clear. Sphenoid sinuses are clear. No air-fluid levels. Skull base is intact. Nasopharynx normal. [place] Picker spaces are normal. Orbital contents show prior cataract surgery. CT/CT sinus wo con IMPRESSION: 1. There appears to have been previous partial resection of the right middle turbinate and right uncinate process. 2. The maxillary sinuses are clear. 3. No nasal cavity polyps. Nasal septum deviates to the right by 2 mm. 4. Mild mucosal thickening in the ethmoid air cells. The paranasal sinuses are otherwise clear. Electronically authenticated by: TE LOUIS Date: 05/07/2024 14:48
== END 2024-05-07 13:37 | disposition home or self-care (01) ==
LOC: CT 13:36
PROVIDERS: PCP Family Medicine; Visit Provider Family Medicine
DX: R09.81 Nasal congestion (principal)
CPT/HCPCS: 70486

== ENCOUNTER 2024-05-11 12:39 | Emergency (ER) | payer MEDICARE, SELFPAY ==
[2024-05-11 12:46] VITALS: BP 167/21; PULSE 78; TEMP 37.3; O2SAT 95; BMI 32.6
--- NOTE | 2024-05-11 13:07 | XR_ITS ---
The [address] [address] Patient Name: EMILY LUDWIG MRN: [id number] date: 1950 Sex: F Assigned Patient Location: ED.MAIN Current Patient Location: ED.MAIN Accession/Order Number: [id number] Exam Date: 05/11/2024 13:30 Report Date: 05/11/2024 14:14 At the request of: CLARISSA JONES Procedure: XR shoulder LT min 2V PROCEDURE: XR shoulder LT min 2V COMPARISON: 05/06/2024 HISTORY: pain FINDINGS: BONES:No acute fracture or dislocation. The glenohumeral and acromioclavicular joints are intact. Mild glenohumeral joint osteoarthropathy. Cervical fusion hardware SOFT TISSUES:Negative. No visible soft tissue swelling. EFFUSION:None visible. OTHER: Negative. XR/XR shoulder LT min 2V IMPRESSION: Mild osteoarthritis. Electronically authenticated by: ELIZABETH MENESES Date: 05/11/2024 14:14
[2024-05-11] MEDS: IBUPROFEN 600 MG TABLET PO (13:18)
[2024-05-11] MEDS: LIDOCAINE/EPINEPHRINE/TETRACAINE 3 ML GEL.PF.APP TOPICAL (13:19)
[2024-05-11] MEDS: ADACEL DIPH,PERTUSS(ACELL),TET VAC/PF 0.5 ML ADULT SYRINGE IM (13:22)
--- NOTE | 2024-05-11 13:45 | ED_ITS ---
Documented by User: Marybeth Alcocer 05/11/24 14:18 HPI HPI - Fall General Chief Complaint: Fall Stated Complaint: FALL Time Seen by Provider: 05/11/24 13:01 Source: patient Mode of arrival: Wheelchair History of Present Illness HPI Narrative: 73-year-old female presents here with a chief complaint of a fall. Patient was walking into the hospital and tripped landing on her outstretched left arm and striking her face. She states she was wearing her glasses and glasses broke patient has a 2 cm laceration of the cheek with a superficial hematoma. Denies loss of consciousness. Patient denies any injury to the head. patient Is not on blood thinners. Related Data Home Medications ?Medication ?Instructions ?Recorded ?Confirmed amlodipine 10 mg tablet 10 mg PO DAILY 08/03/23 05/11/24 cholecalciferol (vitamin D3) 50 2,000 unit PO DAILY 08/03/23 05/11/24 mcg (2,000 unit) capsule (D3-2000) donepezil 5 mg tablet 5 mg PO DAILY 08/03/23 05/11/24 ferrous sulfate 325 mg (65 mg 325 mg PO DAILY 08/03/23 05/11/24 iron) tablet (Feosol) gabapentin 300 mg capsule 300 mg PO DAILY 08/03/23 05/11/24 hydrochlorothiazide 25 mg tablet 25 mg PO DAILY 08/03/23 05/11/24 labetalol 200 mg tablet 200 mg PO DAILY 08/03/23 05/11/24 lansoprazole 30 mg capsule,delayed 30 mg PO DAILY 08/03/23 05/11/24 release losartan 50 mg tablet 50 mg PO DAILY 08/03/23 05/11/24 potassium chloride 10 mEq 10 meq PO DAILY 08/03/23 05/11/24 tablet,extended release venlafaxine 75 mg tablet 75 mg PO DAILY 08/03/23 05/11/24 doxycycline monohydrate 100 mg 100 mg PO Q12H 05/11/24 05/11/24 capsule Allergies Allergy/AdvReac Type Severity Reaction Status Date / Time No Known Drug Allergies Allergy Verified 05/11/24 12:51 Opioid HPI Opioid Management Most Recent Pain and Opioid Data: Last Pain Scale 5 05/11/24 13:18 05/11/24 Last MAR Pain Assessment 05/11/24 13:18 Review of Systems ROS Narrative All Systems are negative except as noted/marked.All systems reviewed and otherwise negative PFSH PFS Medical History (Updated 05/11/24 @ 14:07 by Marybeth Alcocer) Elevated cholesterol ?E78.00 - Pure hypercholesterolemia, unspecified (ICD-10) Acid reflux ?K21.9 - Gastro-esophageal reflux disease without esophagitis (ICD-10) Kidney disease ?N28.9 - Disorder of kidney and ureter, unspecified (ICD-10) Cataract ?H26.9 - Unspecified cataract (ICD-10) Hypertension ?I10 - Essential (primary) hypertension (ICD-10) Anxiety ?F41.9 - Anxiety disorder, unspecified (ICD-10) Hydrocephalus ?G91.9 - Hydrocephalus, unspecified (ICD-10) Surgical History (Updated 08/03/23 @ 10:41 by Aneta Jaquez) History of brain shunt ?Z98.2 - Presence of cerebrospinal fluid drainage device (ICD-10) History of neck surgery ?Z98.890 - Other specified postprocedural states (ICD-10) History of sinus surgery ?Z98.890 - Other specified postprocedural states (ICD-10) History of repair of hiatal hernia ?Z98.890 - Other specified postprocedural states (ICD-10) ?Z87.19 - Personal history of other diseases of the digestive system (ICD-10) History of tonsillectomy ?Z90.89 - Acquired absence of other organs (ICD-10) History of appendectomy ?Z90.49 - Acquired absence of other specified parts of digestive tract (ICD- 10) History of hysterectomy ?Z90.710 - Acquired absence of both cervix and uterus (ICD-10) History of esophagogastroduodenoscopy (EGD) ?Z98.890 - Other specified postprocedural states (ICD-10) History of colonoscopy ?Z98.890 - Other specified postprocedural states (ICD-10) Family History (Updated 08/03/23 @ 10:36 by Aneta Jaquez) Brother Family history of stroke Other Family history of cancer Heart disease Social History (Updated 08/03/23 @ 10:36 by Aneta Jaquez) Within the past year, how often did you have a drink containing alcohol: monthly or less Smoking status: Never smoker Non-prescribed substance use: denies use Highest level of school completed/degree received: high school graduate Little interest or pleasure in doing things: not at all Feeling down, depressed, or hopeless: not at all Exam Narrative Exam Narrative: Nurses note and vital signs reviewed and patient is not hypoxic. General: The patient appears well and in no apparent distress. Patient is resting comfortably on cart. Skin: Warm, dry, no pallor noted. There is no rash noted. Head: Normocephalic, atraumatic 2 cm laceration to left cheek, superficial with hematoma Eye: Normal conjunctiva, no drainage, EOMI. PERRL Ears, Nose, Mouth, and Throat: oral mucosa is moist. Nares patent. Mouth without vesicles. Ear canals patent. Tm's without Erythema Cardiovascular: Regular Rate and Rhythm Respiratory: Patient is in no distress, no accessory muscle use, lungs are clear to auscultation, no wheezing, rales or rhonchi Back: non-tender, no CVA tenderness bilaterally to percussion. Musculoskeletal: left upper extremity pain with limited range of motion, The patient has no evidence of calf tenderness, no pitting edema, symmetrical pulses noted bilaterally Neurological: A&O x4, normal speech Psychiatric: Cooperative Constitutional Vital Signs, click to edit/add: Last Vital Signs Temp 99.1 F 05/11/24 12:46 Pulse 72 05/11/24 14:33 Resp 18 05/11/24 14:33 BP 148/74 H 05/11/24 14:33 Pulse Ox 99 05/11/24 14:33 O2 Del Method Room Air 05/11/24 14:33 Course Vital Signs Vital signs: Vital Signs Temperature 99.1 F 05/11/24 12:46 Pulse Rate 78 05/11/24 12:46 Respiratory Rate 16 05/11/24 12:46 Blood Pressure 167/21 H 05/11/24 12:46 Pulse Oximetry 95 05/11/24 12:46 Oxygen Delivery Method Room Air 05/11/24 12:46 Temperature 99.1 F 05/11/24 12:46 Pulse Rate 72 05/11/24 14:33 Respiratory Rate 18 05/11/24 14:33 Blood Pressure 148/74 H 05/11/24 14:33 Pulse Oximetry 99 05/11/24 14:33 Oxygen Delivery Method Room Air 05/11/24 14:33 MDM - Fall Differential Diagnosis Differential diagnosis: Likely other (fracture of humerus, shoulder, facial laceration) Medical Records Attestation: I reviewed the patient's medical records. Medical records narrative: 73-year-old female who presented here to the emergency room after a fall from the parking lot she missed stepped and did not see a step and fell with her outstretched left upper extremity. No acute fracture identified on x-ray. Patient will be immobilized. Told to rest ice and sling her upper extremity. She had fallen earlier in the week and had similar pain and is now worse. Having difficulty elevating her arm above her head. She will follow-up with Dr. Martin's office. Patient also had a facial laceration which was cleaned with Hibiclens normal saline reapproximated with Dermabond. Patient denied any fur ther further pain medicine will follow-up with orthopedics as discussed. Lab Data Attestation: I reviewed the patient's lab results. Imaging Data shoulder: Radiologist's impression: ITS Impressions Shoulder X-Ray 05/11/24 13:07 IMPRESSION: Mild osteoarthritis. Electronically authenticated by: ELIZABETH MENESES Date: 05/11/2024 14:14 Discharge Plan Discharge Chief Complaint: Fall Clinical Impression: Facial laceration, Shoulder sprain Patient Disposition: Home, Self-Care Time of Disposition Decision: 14:07 Condition: Good Prescriptions / Home Meds: No Action amlodipine 10 mg tablet 10 mg PO DAILY donepezil 5 mg tablet 5 mg PO DAILY gabapentin 300 mg capsule 300 mg PO DAILY hydrochlorothiazide 25 mg tablet 25 mg PO DAILY losartan 50 mg tablet 50 mg PO DAILY labetalol 200 mg tablet 200 mg PO DAILY potassium chloride 10 mEq tablet extended release 10 meq PO DAILY lansoprazole 30 mg capsule,delayed release(DR/EC) 30 mg PO DAILY venlafaxine 75 mg tablet 75 mg PO DAILY cholecalciferol (vitamin D3) [D3-2000] 50 mcg (2,000 unit) capsule 2,000 unit PO DAILY ferrous sulfate [Feosol] 325 mg (65 mg iron) tablet 325 mg PO DAILY doxycycline monohydrate 100 mg capsule 100 mg PO Q12H Print Language: Portuguese Instructions: Shoulder Sprain (ED), Skin Adhesive Care (ED), P.R.I.C.E. Treatment (ED) Referrals: Rico Agarwal MD [Primary Care Provider] - 1 week Stepanic,Simba, DO [Physician] - 1 week Discharge Date/Time: 05/11/24 14:34 Documented by User: Adan Sagastume MD 05/11/24 19:33 HPI HPI - Fall General Chief Complaint: Fall Stated Complaint: FALL Time Seen by Provider: 05/11/24 13:01 Related Data Home Medications ?Medication ?Instructions ?Recorded ?Confirmed amlodipine 10 mg tablet 10 mg PO DAILY 08/03/23 05/11/24 cholecalciferol (vitamin D3) 50 2,000 unit PO DAILY 08/03/23 05/11/24 mcg (2,000 unit) capsule (D3-2000) donepezil 5 mg tablet 5 mg PO DAILY 08/03/23 05/11/24 ferrous sulfate 325 mg (65 mg 325 mg PO DAILY 08/03/23 05/11/24 iron) tablet (Feosol) gabapentin 300 mg capsule 300 mg PO DAILY 08/03/23 05/11/24 hydrochlorothiazide 25 mg tablet 25 mg PO DAILY 08/03/23 05/11/24 labetalol 200 mg tablet 200 mg PO DAILY 08/03/23 05/11/24 lansoprazole 30 mg capsule,delayed 30 mg PO DAILY 08/03/23 05/11/24 release losartan 50 mg tablet 50 mg PO DAILY 08/03/23 05/11/24 potassium chloride 10 mEq 10 meq PO DAILY 08/03/23 05/11/24 tablet,extended release venlafaxine 75 mg tablet 75 mg PO DAILY 08/03/23 05/11/24 doxycycline monohydrate 100 mg 100 mg PO Q12H 05/11/24 05/11/24 capsule Allergies Allergy/AdvReac Type Severity Reaction Status Date / Time No Known Drug Allergies Allergy Verified 05/11/24 12:51 Opioid HPI Opioid Management Most Recent Pain and Opioid Data: Last Pain Scale 5 05/11/24 13:18 05/11/24 Last MAR Pain Assessment 05/11/24 13:18 PFSH PFSH Medical History (Updated 05/11/24 @ 14:07 by Marybeth Alcocer) Elevated cholesterol ?E78.00 - Pure hypercholesterolemia, unspecified (ICD-10) Acid reflux ?K21.9 - Gastro-esophageal reflux disease without esophagitis (ICD-10) Kidney disease ?N28.9 - Disorder of kidney and ureter, unspecified (ICD-10) Cataract ?H26.9 - Unspecified cataract (ICD-10) Hypertension ?I10 - Essential (primary) hypertension (ICD-10) Anxiety ?F41.9 - Anxiety disorder, unspecified (ICD-10) Hydrocephalus ?G91.9 - Hydrocephalus, unspecified (ICD-10) Surgical History (Updated 08/03/23 @ 10:41 by Aneta Jaquez) History of brain shunt ?Z98.2 - Presence of cerebrospinal fluid drainage device (ICD-10) History of neck surgery ?Z98.890 - Other specified postprocedural states (ICD-10) History of sinus surgery ?Z98.890 - Other specified postprocedural states (ICD-10) History of repair of hiatal hernia ?Z98.890 - Other specified postprocedural states (ICD-10) ?Z87.19 - Personal history of other diseases of the digestive system (ICD-10) History of tonsillectomy ?Z90.89 - Acquired absence of other organs (ICD-10) History of appendectomy ?Z90.49 - Acquired absence of other specified parts of digestive tract (ICD- 10) History of hysterectomy ?Z90.710 - Acquired absence of both cervix and uterus (ICD-10) History of esophagogastroduodenoscopy (EGD) ?Z98.890 - Other specified postprocedural states (ICD-10) History of colonoscopy ?Z98.890 - Other specified postprocedural states (ICD-10) Family History (Updated 08/03/23 @ 10:36 by Aneta Jaquez) Brother Family history of stroke Other Family history of cancer Heart disease Social History (Updated 08/03/23 @ 10:36 by Aneta Jaquez) Within the past year, how often did you have a drink containing alcohol: monthly or less Smoking status: Never smoker Non-prescribed substance use: denies use Highest level of school completed/degree received: high school graduate Little interest or pleasure in doing things: not at all Feeling down, depressed, or hopeless: not at all Exam Constitutional Vital Signs, click to edit/add: Last Vital Signs Temp 99.1 F 05/11/24 12:46 Pulse 72 05/11/24 14:33 Resp 18 05/11/24 14:33 BP 148/74 H 05/11/24 14:33 Pulse Ox 99 05/11/24 14:33 O2 Del Method Room Air 05/11/24 14:33 Course Vital Signs Vital signs: Vital Signs Temperature 99.1 F 05/11/24 12:46 Pulse Rate 78 05/11/24 12:46 Respiratory Rate 16 05/11/24 12:46 Blood Pressure 167/21 H 05/11/24 12:46 Pulse Oximetry 95 05/11/24 12:46 Oxygen Delivery Method Room Air 05/11/24 12:46 Temperature 99.1 F 05/11/24 12:46 Pulse Rate 72 05/11/24 14:33 Respiratory Rate 18 05/11/24 14:33 Blood Pressure 148/74 H 05/11/24 14:33 Pulse Oximetry 99 05/11/24 14:33 Oxygen Delivery Method Room Air 05/11/24 14:33 MDM - Fall Medical Records Medical records narrative: 73-year-old female who presented here to the emergency room after a fall from the parking lot she missed stepped and did not see a step and fell with her outstretched left upper extremity. No acute fracture identified on x-ray. Patient will be immobilized. Told to rest ice and sling her upper extremity. She had fallen earlier in the week and had similar pain and is now worse. Having difficulty elevating her arm above her head. She will follow-up with Dr. Martin's office. Patient also had a facial laceration which was cleaned with Hibiclens normal saline reapproximated with Dermabond. Patient denied any further further pain medicine will follow-up with orthopedics as discussed. I, Dr Sagastume, have reviewed the above progress note and course of action in the ER; agree with the above. I have gone over history and physical, and discussed disposition and treatment plan with the patient. Imaging Data shoulder: Radiologist's impression: ITS Impressions Shoulder X-Ray 05/11/24 13:07 IMPRESSION: Mild osteoarthritis. Electronically authenticated by: ELIZABETH MENESES Date: 05/11/2024 14:14 Discharge Plan Discharge Chief Complaint: Fall Clinical Impression: Facial laceration, Shoulder sprain Patient Disposition: Home, Self-Care Time of Disposition Decision: 14:07 Condition: Good Prescriptions / Home Meds: No Action amlodipine 10 mg tablet 10 mg PO DAILY donepezil 5 mg tablet 5 mg PO DAILY gabapentin 300 mg capsule 300 mg PO DAILY hydrochlorothiazide 25 mg tablet 25 mg PO DAILY losartan 50 mg tablet 50 mg PO DAILY labetalol 200 mg tablet 200 mg PO DAILY potassium chloride 10 mEq tablet extended release 10 meq PO DAILY lansoprazole 30 mg capsule,delayed release(DR/EC) 30 mg PO DAILY venlafaxine 75 mg tablet 75 mg PO DAILY cholecalciferol (vitamin D3) [D3-2000] 50 mcg (2,000 unit) capsule 2,000 unit PO DAILY ferrous sulfate [Feosol] 325 mg (65 mg iron) tablet 325 mg PO DAILY doxycycline monohydrate 100 mg capsule 100 mg PO Q12H Print Language: Portuguese Instructions: Shoulder Sprain (ED), Skin Adhesive Care (ED), P.R.I.C.E. Treatment (ED) Referrals: Rico Agarwal MD [Primary Care Provider] - 1 week Simba Knapp DO [Physician] - 1 week Discharge Date/Time: 05/11/24 14:34
[2024-05-11 14:33] VITALS: BP 148/74; PULSE 72; O2SAT 99
== END 2024-05-11 14:34 | disposition home or self-care (01) ==
PROVIDERS: Emergency Provider Emergency Medicine; PCP Family Medicine
DX: S01.419A Laceration without foreign body of unspecified cheek and temporomandibular area, initial encounter (principal); S43.402A Unspecified sprain of left shoulder joint, initial encounter; Z98.2 Presence of cerebrospinal fluid drainage device; Z90.49 Acquired absence of other specified parts of digestive tract; Z90.710 Acquired absence of both cervix and uterus; W01.0XXA Fall on same level from slipping, tripping and stumbling without subsequent striking against object, initial encounter; Z91.81 History of falling; Z23 Encounter for immunization
CPT/HCPCS: 12011; 73030; 90471; 90715; 99283

== ENCOUNTER 2024-06-04 14:37 | Outpatient (OUT) | payer MEDICARE, SELFPAY ==
[2024-06-07 05:07] LABS: D001-IgE D pteronyssinus <0.10 kU/L (Class 0); D002-IgE D farinae <0.10 kU/L (Class 0); E001-IgE Cat Dander <0.10 kU/L (Class 0); E005-IgE Dog Dander <0.10 kU/L (Class 0); E072-IgE Mouse Urine <0.10 kU/L (Class 0); G002-IgE Bermuda Grass <0.10 kU/L (Class 0); G006-IgE Timothy Grass <0.10 kU/L (Class 0); I006-IgE Cockroach, German <0.10 kU/L (Class 0); Immunoglobulin E, Total 146 IU/mL (6-495); M001-IgE Penicillium chrysogen <0.10 kU/L (Class 0); M002-IgE Cladosporium herbarum <0.10 kU/L (Class 0); M003-IgE Aspergillus fumigatus <0.10 kU/L (Class 0); M006-IgE Alternaria alternata <0.10 kU/L (Class 0); T001-IgE Maple/Box Elder <0.10 kU/L (Class 0); T003-IgE Common Silver Birch <0.10 kU/L (Class 0); T006-IgE Cedar, Mountain <0.10 kU/L (Class 0); T007-IgE Oak, White <0.10 kU/L (Class 0); T008-IgE Elm, American <0.10 kU/L (Class 0); T010-IgE Walnut <0.10 kU/L (Class 0); T011-IgE Maple Leaf Sycamore <0.10 kU/L (Class 0); T014-IgE Cottonwood <0.10 kU/L (Class 0); T015-IgE Ash, White <0.10 kU/L (Class 0); T022-IgE Pecan, Hickory <0.10 kU/L (Class 0); T070-IgE White Mulberry <0.10 kU/L (Class 0); W001-IgE Ragweed, Short <0.10 kU/L (Class 0); W011-IgE Thistle, Russian <0.10 kU/L (Class 0); W014-IgE Pigweed, Common <0.10 kU/L (Class 0); W018-IgE Sheep Sorrel <0.10 kU/L (Class 0)
== END 2024-06-04 14:38 | disposition home or self-care (01) ==
LOC: LAB 14:38
PROVIDERS: PCP Family Medicine; Visit Provider Otolaryngology
DX: J34.89 Other specified disorders of nose and nasal sinuses (principal)
CPT/HCPCS: 36415; 82785; 86003

== ENCOUNTER 2024-06-27 14:03 | Outpatient (OUT) | payer MEDICARE, SELFPAY ==
[2024-06-27 14:29] LABS: Creatinine Urine Random 234.23 mg/dL (20.00-300.00); Protein Creatinine Ratio Urine 0.13; Total Protein Urine Random 29.4 mg/dL (<=11.9)
[2024-06-27 14:45] LABS: Albumin Level 3.6 g/dL (3.4-5.0); Anion Gap 14.3; BUN Creatinine Ratio 16.9; Calcium 9.6 mg/dL (8.5-10.1); Carbon Dioxide 28.1 mmol/L (21.0-32.0); Chloride 101 mmol/L (98-107); Estimated GFR (African America 55 (>=60 mL/min/1.73m^2); Estimated GFR (Non-African Ame 45 (>=60 mL/min/1.73m^2); Glucose 125 mg/dL (74-106); Hematocrit 37.3 % (36.0-48.0); Hemoglobin 12.3 g/dL (12.0-16.0); Magnesium 1.9 mg/dL (1.8-2.4); Mean Corpuscular Hemoglobin 30.4 pg (26.7-34.0); Mean Corpuscular Volume 92.1 fL (81.0-99.0); Mean Platelet Volume 9.3 fL (9.5-13.5); Phosphorus 3.7 mg/dL (2.6-4.7); Platelet Count 378 10^3/uL (150-450); Potassium 4.4 mmol/L (3.5-5.1); Red Blood Count 4.05 10^6/uL (4.20-5.40); Red Cell Distribution Width 12.9 % (11.0-15.0); Sodium 139 mmol/L (136-145); Uric Acid 3.1 mg/dL (2.6-6.0); White Blood Count 8.1 10^3/uL (4.0-11.0)
[2024-06-27 14:48] LABS: Bilirubin Urine NEGATIVE (NEGATIVE); Blood Urine NEGATIVE (NEGATIVE); Clarity Urine SL CLOUDY (CLEAR); Color Urine LT. YELLOW (YELLOW); Glucose Urine UA NEGATIVE (NEGATIVE); Ketones Urine TRACE mg/dL (NEGATIVE); Leukocyte Esterase Urine MODERATE (NEGATIVE); Nitrite Urine NEGATIVE (NEGATIVE); Protein Urine TRACE mg/dL (NEG/TRACE); pH Urine 7.5 (5.0-9.0)
[2024-06-27 14:59] LABS: Bacteria Urine LARGE #/HPF (NONE SEEN); Cast Seen? NONE SEEN #/LPF (NONE SEEN); Crystals Seen? None Seen #/HPF (None Seen); Mucus Urine SMALL (NONE SEEN); Squamous Epithelial Cell Urine MANY #/LPF (NONE/RARE); WBC Urine 20-50 #/HPF (NONE SEEN)
[2024-06-27 15:01] LABS: Percent Iron Saturation 24.5 %
[2024-06-28 10:08] LABS: PTH, Intact 26 pg/mL (15-65)
== END 2024-06-27 14:04 | disposition home or self-care (01) ==
LOC: LAB 14:03
PROVIDERS: PCP Family Medicine; Visit Provider Internal Medicine
DX: D64.9 Anemia, unspecified (principal); E87.1 Hypo-osmolality and hyponatremia; E87.6 Hypokalemia; I12.9 Hypertensive chronic kidney disease with stage 1 through stage 4 chronic kidney disease, or unspecified chronic kidney disease; E78.5 Hyperlipidemia, unspecified; E55.9 Vitamin D deficiency, unspecified
CPT/HCPCS: 36415; 80069; 81001; 82306; 82570; 82728; 83540; 83550; 83735; 83970; 84156; 84550; 85027

== ENCOUNTER 2024-09-28 07:40 | Outpatient (RCR) | payer MEDICARE, SELFPAY ==
[2024-09-27 12:31] LABS: Calcium 9.6 mg/dL (8.5-10.1); Estimated GFR (African America >60 (>=60 mL/min/1.73m^2); Estimated GFR (Non-African Ame 59 (>=60 mL/min/1.73m^2)
[2024-09-28 10:29] VITALS: BP 124/77; PULSE 72; TEMP 36.3; O2SAT 94
[2024-09-28] MEDS: DENOSUMAB 60 MG/ML SYRINGE SUBQ (10:39)
== END 2024-10-02 07:52 | disposition home or self-care (01) ==
LOC: LAB 07:40
PROVIDERS: PCP Family Medicine; Visit Provider Family Medicine
DX: Z51.81 Encounter for therapeutic drug level monitoring (principal); M81.0 Age-related osteoporosis without current pathological fracture; Z79.899 Other long term (current) drug therapy
CPT/HCPCS: 36415; 82310; 82565; J0897

== ENCOUNTER 2024-10-27 10:18 | Outpatient (OUT) | payer MEDICARE, SELFPAY ==
--- OUTSIDE RECORDS SUMMARY | 2014-02-20 04:30 | XMS_ITS | Continuity of Care Document ---
Author Organization [facility] Address [address] [place] [address] Phone Care Team Providers Care Shoe Associate Name Role Phone Elijah Dillon Unavailable Unavailable [...] Providers Copied on Encounter PREVENTIVE COUNSELING, INDIV [facility], [address] [place], [place], [id number], [place] tel:[phone] [facility] Need for prophylactic vaccination with combined diphtheria-tet anus-pertussis (DTP) (DTaP) vaccineNeed for prophylactic vaccination and inoculation, other viral diseases Irina Rowland. [address] [place], [place], [id number], [place]. tel:[phone] Family History Family Member Type Diagnosis Age At Onset No Information Immunizations Vaccine Date Status Comments Zoster administered Source: New Imm unization Record Tdap administered Note: VIS given for all vaccines administered today. ; Source: New Immunization Record Payers Payer name Insurance type Covered republican ID Eduardo lennon(s) Medical [place] CI [id number] Social History Type Description Quantity Date Captured [...]
--- OUTSIDE RECORDS SUMMARY | 2024-10-22 06:30 | XMS_ITS ---
Author Organization [facility] in [place] Address [address] [place] [address] Care Team Providers Care Legal Secretary Receptionist Name Role Phone David Agarwal Primary Care Provider Allergies Allergen (clinical drug ingredient) Drug/Non Drug Allergy documented on EMR Reaction Allergy Type Onset Date Status levofloxacin levoFLOXacin Tendonitis Drug Allergy Active REASON FOR VISIT Presents to office alone for surgery clearance for LTKA with Dr. Knapp on November 05 @ [facility], Currently on Macrobid for UTI. Started on updated Medications Medication SIG (Take, Route, Frequency, Duration) Notes Start Date End Date Status Losartan Potassium 50 mg TAKE 1 TABLET DAILY Active Venlafaxine HCl 75 MG 1 tablet with food Orally Once a day for 90 days Active Potassium Chloride ER 10 MEQ 1 tablet wi th food Orally once daily for 90 days Active Vitamin D3 Active Lansoprazole 30 MG 1 capsule before a meal Orally Once a day for 30 days 11/17/2023 Active Labetalol HCl 200 mg TAKE 1 TABLET EVERY MORNING Active hydroCHLOROthiazide 25 mg TAKE 1 TABLET DAILY IN THE MORNING Active Gabapentin 300 MG 1 to 2 tablets Orally at bedtime for 90 days 04/01/2023 Active Ferrous Sulfate 325 (65 Fe) MG 1 tablet Orally once daily Active amLODIPine Besylate 10 mg TAKE 1 TABLET DAILY Active CPAP Supplies -- Mask and Tubing Use with c-pap machine nightly Dx: G47.30 05/12/2023 Active Atorvastatin Calcium 20 mg TAKE 1 TABLET DAILY AT BEDTIME Active Donepezil HCl 5 MG 1 tablet at bedtime Orally Once a day for 90 days Active Social History Tobacco Use: Social History Observation Description Date Details (start date - stop date) Never Smoker NA - NA Tobacco Use/Smoking Question Answer Notes Patient is a nonsmoker AUDIT-C (Standard) Question Answer Notes Did you have a drink contain ing alcohol in the past year? Yes How often did you have six o r more drinks on one occasion in the past year? Never (0 point) How many drinks did you have on a typical day when you were drinking in the past year? 1 or 2 drinks (0 point) How often did you have a dri nk containing alcohol in the past year? Monthly or less (1 point) Points 1 Interpretation Negative Vital Signs Weight 181.4 lbs 10/22/2024 Height 62 in 10/22/2024 Blood pressure systolic 120 mm Hg 10/23/19 25 Blood pressure diastolic 64 mm Hg 025 Temperature 99.1 degrees Fahrenheit 10/23/19 25 BMI 33.17 kg/m2 10/22/2024 Encounters Encounter Location Date Provider Diagnosis [facility] [address] [place] [address] 10/22/2024 David Agarwal Vitamin D deficiency E55.9 ; Hypercholesterolemia E78.00 ; Pulmonary hypertension I27.20 and Hypertension I10 Assessments Encounter Date Diagnosis (ICD Code) Assessment Notes Treatment Notes Treatment Clinical Notes Section Notes 10/22/2024 Vitamin D deficiency (ICD-10 - E55.9) 10/22/2024 Hypercholesterolemia (ICD-10 - E78.00) 10/22/2024 Pulmonary hypertensi on (ICD-10 - I27.20) 10/22/2024 Hypertension (ICD-10 - I10) Cleared for OR Plan Of Treatment Treatment Notes Assessment Notes Hypertension Cleared for OR Pending Test Test Name Order Date HEMOGLOBIN A1C (GLYCO) 10/22/2024 IRON, TOTAL 10/22/2024 LIPID PANEL (CHOL/TRIG/HDL/LDL) 10/23/19 25 VITAMIN D, 25 LEVEL (TOTAL) 10/22/2024 Insulin Level 10/22/2024 STOOL OCCULT BLOOD 10/22/2024 THYROID PANEL (T4/TSH/FREE T3) CMP (COMP MET COMBS) w/eGFR CKD-EPI 2024 CBC WITH DIFF 10/22/2024 Progress Notes * RAIFSNIDER, Mary MDOB:[birth year] (73 yo F)Acc No.[id number]:10/22/2024 Progress Note Patient: Mary BERGMAN Provider: Melinda Agarwal ([facility])MD :1950 A ge:73 Y S ex:Female Date:10/22/2024 Address:[facility] [address], [place], [place] Check In:10:25 AM ESTCheck O ut:10:48 AM EST Subjective: * Chief Complaints: * P resents to office alone for surgery clearance [facility] [facility] [place] [place] [facility] Started on updated * HPI: G eneral: On ab for uti - then reteesting' Surgery R knee wiht Dr Knapp NO CA D - had cath - all clear in the past no sgtroke in the past some corbett - but just with more activity - fatigue. * ROS: E ENT: hearing changes d enies. v isual changes d enies.?non-healing mouth sores d enies. s wollen glands or neck lumps d enies. h oarseness d enies. s ore throat d enies. d ifficulty swallowing d enies. n ose bleeds d enies. n mehrdad congestion d enies. e ar ache d enies. e ar discharge?denies. r inging in ears d enies. l ight sensitivity d enies. e ye pain d enies. b lurring d enies. e ye irritation d enies. d ouble vision d enies.?vision loss d enies. G eneral/Constitutional: Sweats: D enies. F atigue d enies. S leep problems d enies. A norexia d enies. M alaise d enies. W eight loss d enies.?Fatigue or Weakness d enies. F ever or Chills d enies. C ardiovascular: Shortness of Breath w/lying flat d enies. L ightheadedness/dizziness d enies. C hest tightness/ heavy pressure d enies. S welling of legs, ankles, or feet d enies. W aking up with shortness of breath d enies. C hest pain denies. P alpitations d enies. W eight gain d enies. R espiratory: Chronic or frequent cough d enies. C oughing up blood?denies. D ifficulty breathing d enies. P roductive cough d enies. S noring?denies. S hortness of breath that awakens from sleep (PND) d enies. C hest pain d enies. S putum production d enies. W heezing d enies. M usculoskeletal: Joint pain d enies. J oint Fluid d enies. B ack pain d enies. K nee pain d enies. N luisa pain d enies. J oint Stiffness d enies. M uscle cramps d enies. W eakness of muscles d enies. A rthritis d enies. M uscle aches d enies. P ain in shoulder(s) d enies. S wollen joints d enies. * Active Problem List M48.00 Spinal stenosis Modified On:05/12/2023 Status:confirmed M85.80 Osteopenia Modified On:05/12/2023 Status:confirmed R06.00 Dyspnea Modified On:05/12/2023 Status:confirmed G47.30 Sleep apnea Modified On:05/12/2023 Status:confirmed K44.9 Hiatal hernia Modified On:05/12/2023U Status:confirmed R32 Urinary incontinence Modified On:05/12/2023 Status:confirmed E87.1 Hyponatremia Modified On:05/12/2023 Status:confirmed K57.90 Diverticulosis Modified On:05/12/2023 Status:confirmed E55.9 Vitamin D deficiency Modified On:05/12/2023 Status:confirmed M54.16 Lumbar radiculopathy Modified On:05/12/2023U Status:confirmed D12.6 Tubular adenoma of c olon Modified On:05/12/2023 Status:confirmed M81.0 Osteoporosis Modified On:05/12/2023 Status:confirmed R13.10 Dysphagia Modified On:05/12/2023 Status:confirmed M47.22 Cervical spondylosis with radiculopathy Modified On:05/12/2023 Status:confirmed I12.9 Hypertensive chronic kidney disease w stg 1-4/unsp chr kdny Modified On:05/12/2023 Status:confirmed R15.9 Fecal incontinence Modified On:05/12/2023 Status:confirmed G91.1 Obstructive hydrocep halus Modified On:05/12/2023 Status:confirmed I72.2 Aneurysm of renal ar radha Modified On:05/12/2023 Status:confirmed D50.9 Anemia, iron deficie ncy Modified On:05/12/2023 Status:confirmed M43.02 Cervical spondylolys is Modified On:05/12/2023 Status:confirmed M41.9 Kyphoscoliosis defor mity of spine Modified On:05/12/2023 Status:confirmed R41.3 Memory loss, short t erm Modified On:05/12/2023 Status:confirmed E78.00 Hypercholesterolemia Modified On:05/12/2023 Status:confirmed I27.20 Pulmonary hypertensi on Modified On:05/12/2023 Status:confirmed K20.90 Esophagitis Modified On:05/12/2023 Status:confirmed M85.89 Other specified diso rders of bone density and structure, multiple sites Modified On:09/07/2022 Status:confirmed E78.00 Hypercholesteremia Modified On:04/06/2023U Status:confirmed I10 Hypertension Modified On:04/06/2023U Status:confirmed K21.9 GERD (gastroesophage al reflux disease) Modified On:11/17/2023U Status:confirmed K63.9 Bowel disease Modified On:02/03/2024U Status:confirmed M25.512 Shoulder pain, left Modified On:04/09/2024U Status:confirmed M17.9 Knee osteoarthritis Modified On:07/19/2024W/U Status:confirmed * Medical History: * Surgical History: C ervical Spine fusion 03/21/2023TONSILLECTOMY,UNDER 12YRS Broken Right leg, lower leg Partial Oopherectomy Sinus Surgery- Turbinate Right Great Toe Surgery- pin placed Hysterectomy Right Renal Artery Coil- Aneurysm FIELD TECH shunt for Hydrocephalis Heart Cath- no stent placement 2017Colonoscopy 2020Hiatal Hernia Repair -Dr Ramirez 03/06/24 * Hospitalization/Major Diagno stic Procedure: N luisa Surgery 03/21/2023 * Family History: F ather: 77 yrs, diagnosed with Unspecified heart disease. M other: 49 yrs, Rectal Cancer- 47 years old, diagnosed with Other malignant neoplasm of unspecified site. B rother(s): alive, congestive heart failure, diagnosed with Diabetes mellitus without mention of complication, type II or unspecified type, not stated as uncontrolled, Unspecified heart disease. P aternal Grandfather: diagnosed with Diabetes mellitus without mention of complication, type II or unspecified type, not stated as uncontrolled, Unspecified heart disease. P aternal Grandmother: diagnosed with Diabetes mellitus without mention of complication, type II or unspecified type, not stated as uncontrolled, Unspecified heart disease. M aternal Grandfather: diagnosed with Diabetes mellitus without mention of complication, type II or unspecified type, not stated as uncontrolled.?Maternal Grandmother: diagnosed with Diabetes mellitus without mention of complication, type II or unspecified type, not stated as uncontrolled. 3 brother(s) . . * Social History: T obacco Use: T obacco Use/Smoking P atient is a n onsmoker D rug/Alcohol: A ALF-C (Standard) D id you have a drink containing alcohol in the past year? Y es H ow often did you have six or more drinks on one occasion in the past year? N ever (0 point) H ow many drinks did you have on a typical day when you were drinking in the past year? 1 or 2 drinks (0 point) H ow often did you have a drink containing alcohol in the past year? M onthly or less (1 point) P oints 1 I nterpretation N egative * Medications: T akingamLODIPine Besylate 10 mg Tablet TAKE 1 TABLET DAILY Atorvastatin Calcium 20 mg Tablet TAKE 1 TABLET DAILY AT BEDTIME CPAP Supplies -- -- Mask and Tubing Use with c-pap machine nightly , Notes to Pharmacist: Dx: G47.30Donepezil HCl 5 MG Tablet 1 tablet at bedtime Orally Once a day Ferrous Sulfate 325 (65 Fe) MG Tablet 1 tablet Orally once daily Gabapentin 300 MG Capsule 1 to 2 tablets Orally at bedtime hydroCHLOROthiazide 25 mg Tablet TAKE 1 TABLET DAILY IN THE MORNING Labetalol HCl 200 mg Tablet TAKE 1 TABLET EVERY MORNING Lansoprazole 30 MG Capsule Delayed Release 1 capsule before a meal Orally Once a day Losartan Potassium 50 mg Tablet TAKE 1 TABLET DAILY Potassium Chloride ER 10 MEQ Tablet Extended Release 1 tablet with food Orally once daily Venlafaxine HCl 75 MG Tablet 1 tablet with food Orally Once a day Vitamin D3 Taking amLODIPine Besylate 10 mg Tablet TAKE 1 TABLET DAILY Taking Atorvastatin Calcium 20 mg Tablet TAKE 1 TABLET DAILY AT BEDTIME Taking CPAP Supplies -- -- Mask and Tubing Use with c-pap machine nightly , Notes to Pharmacist: Dx: G47.30Taking Donepezil HCl 5 MG Tablet 1 tablet at bedtime Orally Once a day Taking Ferrous Sulfate 325 (65 Fe) MG Tablet 1 tablet Orally once daily Taking Gabapentin 300 MG Capsule 1 to 2 tablets Orally at bedtime Taking hydroCHLOROthiazide 25 mg Tablet TAKE 1 TABLET DAILY IN THE MORNING Taking Labetalol HCl 200 mg Tablet TAKE 1 TABLET EVERY MORNING Taking Lansoprazole 30 MG Capsule Delayed Release 1 capsule before a meal Orally Once a day Taking Losartan Potassium 50 mg Tablet TAKE 1 TABLET DAILY Taking Potassium Chloride ER 10 MEQ Tablet Extended Release 1 tablet with food Orally once daily Taking Venlafaxine HCl 75 MG Tablet 1 tablet with food Orally Once a day Taking Vitamin D3 DiscontinuedBactrim DS(Sulfamethoxazole-Trimethoprim) 800-160 MG Tablet 1 tablet Orally bid Medication List reviewed and reconciled with the patientDiscontinued Bactrim DS(Sulfamethoxazole-Trimethoprim) 800-160 MG Tablet 1 tablet Orally bid Medication List reviewed and reconciled with the patient * Allergies: l evoFLOXacin: Tendonitisno[Allergies Verified] Objective: * Vitals: W t:181.4lbs, Ht: 62 in, BP:120/64mm Hg, Temp:99.1F, BMI:33.17Index, Ht-cm: 157.48 cm, Wt-k.28 kg. * Examination: P hysical Exam: GENERAL: w ell developed, well nourished, in no acute distress. HEAD: n ormocephalic/atraumatic. EYES: p upils equal, round and reactive to light, conjunctivae and sclerae normal. EARS: n o deformity or lesion of external ear, canals and TM appear normal bilaterally, TM's intact, not inflamed with normal light reflex, hearing grossly normal to conversational speech. NOSE: n o deformity, discharge, inflammation, or lesions.? MOUTH: m ucous membranes moist, normal oropharynx and posterior pharynx without lesions or exudates, tongue normal, dentition normal. NECK: n luisa supple, no masses or palpable cervical nodes, trachea midline, thyroid without nodules, masses, tenderness, or enlargement. CHEST: n o chest wall deformity, no chest wall tenderness.? LUNGS: n ormal respiratory effort and clear to auscultation, no wheezes, rales, or rhonchi, good air exchange. CARDIO: r egular rate and rhythm, normal S1 and S2, nor murmur, rub, or gallop. PULSES: n ormal capillary refill. ABDOMEN: s oft, non-distended, non-tender, no masses. MUSCULOSKELETAL: n o deformity or scoliosis noted, normal range of motion, joints normal, no erythema, edema, effusion, or ecchymosis. EXTREMITY: n o clubbing, cyanosis, edema, or deformity with normal ROM in both upper and lower bilateral extremities. NEUROLOGIC: g rossly normal. SKIN: n o rashes, ulcerations, or suspicious lesions. LYMPH NODES: n o cervical adenopathy, nodes normal. MENTAL STATUS: a lert and oriented x3, normal mood and affect. Assessment: * Assessment: 1. V itamin D deficiency - E55.9 (Primary) 2 . H ypercholesterolemia - E78.00 3 . P ulmonary hypertension - I27.20 4 . H ypertension - I10 Plan: * Treatment: 2. H ypercholesterolemia L AB: HEMOGLOBIN A1C (GLYCO) L AB: IRON, TOTAL L AB: LIPID PANEL (CHOL/TRIG/HDL/LDL) L AB: VITAMIN D, 25 LEVEL (TOTAL) L AB: Insulin Level L AB: STOOL OCCULT BLOOD L AB: THYROID PANEL (T4/TSH/FREE T3) L AB: CMP (COMP MET COMBS) w/eGFR CKD-EPI L AB: CBC WITH DIFF 3. P ulmonary hypertension L AB: HEMOGLOBIN A1C (GLYCO) L AB: IRON, TOTAL L AB: LIPID PANEL (CHOL/TRIG/HDL/LDL) L AB: VITAMIN D, 25 LEVEL (TOTAL) L AB: Insulin Level L AB: STOOL OCCULT BLOOD L AB: THYROID PANEL (T4/TSH/FREE T3) L AB: CMP (COMP MET COMBS) w/eGFR CKD-EPI L AB: CBC WITH DIFF 4. H ypertension L AB: HEMOGLOBIN A1C (GLYCO) L AB: IRON, TOTAL L AB: LIPID PANEL (CHOL/TRIG/HDL/LDL) L AB: VITAMIN D, 25 LEVEL (TOTAL) L AB: Insulin Level L AB: STOOL OCCULT BLOOD L AB: THYROID PANEL (T4/TSH/FREE T3) L AB: CMP (COMP MET COMBS) w/eGFR CKD-EPI L AB: CBC WITH DIFF Notes: Cleared for OR * Procedure Codes: * Preventive Medicine: Screenings/Counseling: B NM ACTION PLAN Above Normal BMI Follow-up D ietary management education, guidance, and counseling See treatment section of progress note for complete details of management plan. F ALL RISK SCREENING Fall Risk Assessment: N o falls in the past year * * Sign off status: Completed Visit Status: C HK (Check Out) true * Provider: Melinda Agarwal ([facility])MD Date: 0 10/22/2024 Generated for Printi ng/Faxing/eTransmitting on: 0 10/27/2024 10:21 AM EDT History and Physical Notes * HPI (History of Present Illness) Category Sub-Category Detail Notes Category Not es General On ab for uti - then reteesting' Surgery R knee wiht Dr Knapp NO CA D - had cath - all clear in the past no sgtroke in the past some corbett - but just with more activity - fatigue Examination Category Sub-Category Detail Notes Category Not es Physical Exam GENERAL: well developed, well nourished, in no acute distress HEAD: normocephalic/atraum atic EYES: pupils equal, round and reactive to light, conjunctivae and sclerae normal EARS: no deformity or lesi on of external ear, canals and TM appear normal bilaterally, TM's intact, not inflamed with normal light reflex, hearing grossly normal to conversational speech NOSE: no deformity, discha rge, inflammation, or lesions MOUTH: mucous membranes jimbo st, normal oropharynx and posterior pharynx without lesions or exudates, tongue normal, dentition normal NECK: neck supple, no mass es or palpable cervical nodes, trachea midline, thyroid without nodules, masses, tenderness, or enlargement CHEST: no chest wall deform ity, no chest wall tenderness LUNGS: normal respiratory e ffort and clear to auscultation, no wheezes, rales, or rhonchi, good air exchange CARDIO: regular rate and rhy thm, normal S1 and S2, nor murmur, rub, or gallop PULSES: normal capillary ref ill ABDOMEN: soft, non-distended, non-tender, no masses RECTAL: MUSCULOSKELETAL: no deformity or scol iosis noted, normal range of motion, joints normal, no erythema, edema, effusion, or ecchymosis EXTREMITY: no clubbing, cyanosi s, edema, or deformity with normal ROM in both upper and lower bilateral extremities NEUROLOGIC: grossly normal SKIN: no rashes, ulceratio ns, or suspicious lesions LYMPH NODES: no cervical adenopat hy, nodes normal MENTAL STATUS: alert and oriented x 3, normal mood and affect
--- OUTSIDE RECORDS SUMMARY | 2024-10-22 06:42 | XMS_ITS ---
Author Organization [facility] in [place] Address [address] [place] [address] Care Team Providers Care Information Systems Professor Name Role Phone David Agarwal Primary Care Provider [phone] Reason For Referral Diagnosis 1 Incontinence of ishaan l (R15.9) Referral Organization [facility] Referring Provider First Name David Referring Provider Last Name Any Referring Provider Speciality Family [facility] rennyne Referred Provider Jorge Ramirez Referred Provider Specialty Gastroentero logy Referral Priority Routine REASON FOR VISIT colonoscopy Encounters Encounter Location Date Provider Diagnosis [facility] [address] [facility] [address] 10/22/2024 David Scottdora Incontinence of ishaan l R15.9 Assessments Encounter Date Diagnosis (ICD Code) Assessment Notes Treatment Notes Treatment Clinical Notes Section Notes 10/22/2024 Incontinence of bowel (ICD-10 - R15.9) Plan Of Treatment Referrals Referral Date Details 10/22/2024 10/22/2024Jorge Progress Notes * Mary LUDWIG MDOB:[birth year] (73 yo F)Acc No.[id number]:10/22/2024 Patient: Mary BERGMAN :1950 A ge:73 Y S ex:Female Address:[address] [place] [address] Subjective: * Chief Complaints: * C olonoscopy * Medical History: * Surgical History: * Hospitalization/Major Diagno stic Procedure: * Medications: Objective: * Vitals: * Physical Examination: Assessment: * Assessment: 1. I ncontinence of bowel - R15.9 (Primary) Plan: * Treatment: * Procedure Codes: * true * Date: Generated for Donte dee/Matthew/Scootersmitting on: 0 10/27/2024 10:22 AM EDT Consultation Request Notes Referral Date Referring Provider Referred Provider Not es 10/22/2024 David Agarwal Cameron
--- OUTSIDE RECORDS SUMMARY | 2024-10-23 12:57 | XMS_ITS ---
Author Organization [facility] in [place] Address [address] [place] [address] Care Team Providers Care Senior Reactor Operator Name Role Phone Any David Primary Care Provider REASON FOR VISIT Leg Lengh Encounters Encounter Location Date Provider Diagnosis [facility] [address] [facility] [place] [address] 10/23/2024 David Agarwal Plan Of Treatment No Information Progress Notes * Mary LUDWIG MDOB:[birth year] (73 yo F)Acc No.[id number]:10/23/2024 Patient: Andreina Mary RODRIGEZ :1950 A ge:73 Y S ex:Female Address:[address], [place] [address] * true * Date: Generated for Printi ng/Faxing/eTransmitting on: 0 10/27/2024 10:22 AM EDT
--- OUTSIDE RECORDS SUMMARY | 2024-10-27 10:21 | XMS_ITS | Patient Health Record ---
Author Organization [facility] [place] Address [address] [place] [address] Care Team Providers Care Wind Energy Engineer Name Role Phone David Agarwal Primary Care Provider Allergies Allergen (clinical drug ingredient) Drug/Non Drug Allergy documented on EMR Reaction Allergy Type Onset Date Status levofloxacin levoFLOXacin Tendonitis Drug Allergy Active Results Component Value Reference Range Notes FREE T4 Reviewed date:11/22/2023 08:51:27 PM Interpretation: Performing Lab: Notes/Report: [facility] , Free T4 1.15 0.76-1.46 ng/dL Performing Lab: see note ML - [facility] LB TSH Reviewed date:11/22/2023 08:51:28 PM Interpretation: Performing Lab: Notes/Report: [facility] , Thyroid Stimulating Hormone 0.845 0.358-3.740 uIU/mL Performing Lab: see note ML - [facility] LB CT sinus wo con Reviewed date:05/07/2024 08:34:04 PM Interpretation: Performing Lab: Notes/Report: Source Facility: [facility] [place] [address] [place] [address] CT Scan Report Signed Patient: EMILY LUDWIG MR#: [id number] : 1950 Acct:[id number] Age/Sex: 73 / F ADM Date: 05/07/24 Loc: CT Attending Dr: Imer Agarwal M.D. Ordering Physician: Imer Agarwal M.D. Date of Service: 05/07/24 Procedure(s): CT sinus wo con Accession Number(s): [id number] cc: Imer Agarwal M.D. [place] [id number] Patient Name: EMILY LUDWIG MRN: [facility]:[id number] date: 1950 Sex: F Assigned Patient Location: CT Current Patient Location: CT Accession/Order Number: [id number] Exam Date: 05/07/2024 13:46 Report Date: 05/07/2024 14:48 At the request of: IMER AGARWAL Procedure: CT sinus wo con CT sinuses without contrast, 05/07/2024. HISTORY: Chronic sinusitis. COMPARISON: None. TECHNIQUE: Noncontrast axial CT images obtained through the sinuses. Reconstructions obtained in the sagittal and coronal planes. Dose reduction techniques were achieved by using automated exposure control and/or adjustment of mA and/or kV according to patient size and/or use of iterative reconstruction technique. FINDINGS: Maxillary sinuses are clear. Ostiomeatal units are patent. There has been previous partial resection of the right middle turbinate and right uncinate process. There is some mucosal thickening along the nasal passages. No nasal cavity polyps. Nasal septum deviates to the right by approximately 2 mm. Mild mucosal thickening in the ethmoid air cells. Frontal sinuses are clear. Sphenoid sinuses are clear. No air-fluid levels. Skull base is intact. Nasopharynx normal. Veneer Repairer Machine spaces are normal. Orbital contents show prior cataract surgery. CT/CT sinus wo con IMPRESSION: 1. There appears to have been previous partial resection of the right middle turbinate and right uncinate process. 2. The maxillary sinuses are clear. 3. No nasal cavity polyps. Nasal septum deviates to the right by 2 mm. 4. Mild mucosal thickening in the ethmoid air cells. The paranasal sinuses are otherwise clear. Electronically authenticated by: JORGE CORDOVA Date: 05/07/2024 14:48 Dictated By: Jorge Cordova M.D. Signed By: 05/07/24 1417 DD/ 3097 TD/TT: Navigating Officer: The [address] [address] [address] Scan Report Signed Patient: EMILY LUDWIG MR#: [id number] : 1950 Acct:[id number] Age/Sex: 73 / F ADM Date: 05/07/24 Loc: CT Attending Dr: Gonzalez Agarwal M.D. Ordering Physician: Imer Agarwal M.D. Date of Service: 05/07/24 Procedure(s): CT sin us wo con Accession Number(s): [id number] cc: Imer Agarwal M.D. The [address] [address] Patient Name: EMILY LUDWIG MRN: [facility]:[id number] date: 1950 Sex: F Assigned Patient Location: CT Current Patient Loca tion: CT Accession/Order Numb er: [id number] Exam Date: 13:46 Report Date: 05/07/2024 14:48 At the request of: IMER AGARWAL Procedure: CT sinus wo con CT sinuses without contrast, 05/07/2024. HISTORY: Chronic sinusitis. COMPARISON: None. TECHNIQUE: Noncontra st axial CT images obtained through the sinuses. Reconstructions obta ined in the sagittal and coronal planes. Dose reduction techniques were achi eved by using automated exposure control and/or adjustment of mA and/or kV acco rding to patient size and/or use of iterative reconstruction technique. FINDINGS: Maxillary sinuses are clear. Ostiomeatal units are patent. There has been previous partia l resection of the right middle turbinate and right uncinate process. Th ere is some mucosal thickening along the nasal passages. No nasal cavity polyps. Nasal septum deviates to the right by approximately 2 mm. Mild mucosal thicken ing in the ethmoid air cells. Frontal sinuses are clear. Sphenoid sinuses are clear. No air-fluid levels. Skull base is intact . Nasopharynx normal. Veneer Repairer Machine spaces are normal. Orbital contents show prior cataract surgery. C T/CT sinus wo con IMPRESSION: 1. There appears to have been previous partial resection of the right middle turbinate and right uncinate process. 2. The maxillary sin uses are clear. 3. No nasal cavity polyps. Nasal septum deviates to the right by 2 mm. 4. Mild mucosal thickening in the ethmoid air cells. The paranasal sinuses are otherwise clear. Electronically authenticated by: JORGE CORDOVA Date: 05/07/2024 14:48 Dictated By: Melinda Cordova M.D. Signed By: 05/07/24 145 DD/ 1448 TD/TT: Navigating Officer: XR shoulder LT min 2V Reviewed date:05/13/2024 08:19:43 PM Interpretation: Performing Lab: Notes/Report: Source Facility: [place] [address] XRay Report Signed Patient: EMILY LUDWIG MR#: [id number] : 1950 Acct:[id number] Age/Sex: 73 / F ADM Date: 05/11/24 Loc: ER Attending Dr: Ordering Physician: Marybeth Jones Date of Service: 05/11/24 Procedure(s): XR shoulder LT min 2V Accession Number(s): [id number] cc: Marybeth Jones; Imer Agarwal M.D. [place] [address] Patient Name: EMILY LUDWIG MRN: [id number]:[id number] date: 1950 Sex: F Assigned Patient Location: ED.MAIN Current Patient Location: ED.MAIN Accession/Order Number: [id number] Exam Date: 05/11/2024 13:30 Report Date: 05/11/2024 14:14 At the request of: MAYRBETH JONES Procedure: XR shoulder LT min 2V PROCEDURE: XR shoulder LT min 2V COMPARISON: 05/06/2024 HISTORY: pain FINDINGS: BONES:No acute fracture or dislocation. The glenohumeral and acromioclavicular joints are intact. Mild glenohumeral joint osteoarthropathy. Cervical fusion hardware SOFT TISSUES:Negative. No visible soft tissue swelling. EFFUSION:None visible. OTHER: Negative. XR/XR shoulder LT min 2V IMPRESSION: Mild osteoarthritis. Electronically authenticated by: ELIZABETH MENESES Date: 05/11/2024 14:14 Dictated By: Elizabeth Meneses M.D. Signed By: 05/11/241416 DD/ 13 TD/TT: Navigating Officer: [place] [address] XRay Report Signed Patient: EMILY LUDWIG MR#: [id number] : 1950 Acct:[id number] Age/Sex: 73 / F ADM Date: 05/11/24 Loc: ER Attending Dr: Ordering Physician: Marybeth Jones Date of Service: 05/11/24 Procedure(s): XR caity ulder LT min 2V Accession Number(s): [id number] cc: Marybeth Jones; Imer Agarwal M.D. [place] [id number] Patient Name: EMILY LUDWIG MRN: [facility]:[id number] date: 1950 Sex: F Assigned Patient Location: ED.MAIN Current Patient Loca tion: ED.MAIN Accession/Order Numb er: [id number] Exam Date: 05/11/2024 13:30 Report Date: 05/11/2024 14:14 At the request of: MARYBETH JONES Procedure: XR should er LT min 2V PROCEDURE: XR should er LT min 2V COMPARISON: 05/06/2024 HISTORY: pain FINDINGS: BONES:No acute fract ure or dislocation. The glenohumeral and acromioclavicular joints are intact. M ild glenohumeral joint osteoarthropathy. Cervical fusion hardware SOFT TISSUES:Negativ e. No visible soft tissue swelling. EFFUSION:None visible. OTHER: Negative. X R/XR shoulder LT min 2V IMPRESSION: Mild osteoarthritis. Electronically authenticated by: ELIZABETH MENESES Date: 05/11/2024 14:14 Dictated By: Sanya Meneses M.D. Signed By: 05/11/241416 DD/ 13 TD/TT: Navigating Officer: FERRITIN Reviewed date:06/27/2024 07:31:55 PM Interpretation: Performing Lab: Notes/Report: [facility] , Ferritin 78.0 8.0-252.0 ng/mL Performing Lab: see note ML - [facility] LB UA RANDOM W or MICROSCOPIC Reviewed date:06/27/2024 07:31:55 PM Interpretation: Performing Lab: Notes/Report: [facility] , Color Urine LT. YELLOW YELLOW Clarity Urine SL CLOUDY CLEAR Specific [place]ley Urine 1.010 1.005-1.025 pH Urine 7.5 5.0-9.0 Protein Urine TRACE NEG/TRACE mg/dL Glucose Urine UA NEGATIVE NEGATIVE mg/dL Bilirubin Urine NEGATIVE NEGATIVE Ketones Urine TRACE NEGATIVE mg/dL Blood Urine NEGATIVE NEGATIVE Nitrite Urine NEGATIVE NEGATIVE Urobilinogen Urine 1.0 0.2-1.0 EU/dL Leukocyte Esterase Urine MODERATE NEGATIVE WBC Urine 20-50 NONE SEEN #/HPF RBC Urine 2-5 0-2 #/HPF Bacteria Urine LARGE NONE SEEN #/HPF Mucus Urine SMALL NONE SEEN Squamous Epithelial Cell Urine MANY NONE/RARE #/LPF Crystals Seen? None Seen None Seen #/HPF Cast Seen? NONE SEEN NONE SEEN #/LPF Performing Lab: see note ML - [facility] LB VITAMIN D 25 [place] Reviewed date:06/27/2024 07:31:55 PM Interpretation: Performing Lab: Notes/Report: [facility] , Vitamin D 46.4 20-<30 ng/mL Vit D insufficient <20 ng/mL Vit D deficient >100 ng/mL Potential Toxicity 30-100 ng/mL Vit D sufficient Performing Lab: see note ML - [facility] LB PTH, Intact Reviewed date:07/01/2024 10:06:31 AM Interpretation: Performing Lab: Notes/Report: [facility] , PTH, Intact 26 15-65 pg/mL Vice President Consulting Services: Jamari Bray PhD, Phone: [phone] [address], [place] [phone] Performed at: [facility] Performing Lab: see note LC - [facility] LB CALCIUM Reviewed date:09/27/2024 08:25:24 PM Interpretation: Performing Lab: Notes/Report: [facility] , Calcium 9.6 8.5-10.1 mg/dL Performing Lab: see note ML - [facility] LB CREATININE Reviewed date:09/27/2024 08:25:24 PM Interpretation: Performing Lab: Notes/Report: [facility] , Creatinine 0.93 0.55-1.02 mg/dL Estimated GFR ( Joyce >60 >=60 mL/min/1.73m 2 Estimated GFR (Non- Ivonne 59 >=60 mL/min/1.73m 2 Performing Lab: see note ML - [facility] LB CBC no Diff (Hemogram) Reviewed date:06/27/2024 07:31:55 PM Interpretation: Performing Lab: Notes/Report: [facility] , White Blood Count 8.1 4.0-11.0 10 3/uL Red Blood Count 4.05 4.20-5.40 10 6/uL Hemoglobin 12.3 12.0-16.0 g/dL Hematocrit 37.3 36.0-48.0 % Mean Corpuscular Volume 92.1 81.0-99.0 fL Mean Corpuscular Hemoglobin 30.4 26.7-34.0 pg Mean Corpuscular HGB Conc 33.0 29.9-35.2 g/dL Red Cell Distribution Width 12.9 11.0-15.0 % Platelet Count 378 150-450 10 3/uL Mean Platelet Volume 9.3 9.5-13.5 fL Performing Lab: see note ML - [facility] URINE T PROTEIN CREAT RATIO Reviewed date:06/27/2024 07:31:55 PM Interpretation: Performing Lab: Notes/Report: [facility] , Total Protein Urine Random 29.4 <=11.9 mg/dL Creatinine Urine Random 234.23 20.00-30 0.00 mg/dL Protein Creatinine Ratio Urine 0.13 Performing Lab: see note ML - [facility] LB URIC ACID SERUM Reviewed date:06/27/2024 07:31:55 PM Interpretation: Performing Lab: Notes/Report: [facility] , Uric Acid 3.1 2.6-6.0 mg/dL Performing Lab: see note ML - [facility] LB RENAL FUNCTION PANEL Reviewed date:06/27/2024 07:31:55 PM Interpretation: Performing Lab: Notes/Report: [facility] , Sodium 139 136-145 mmol/L Potassium 4.4 3.5-5.1 mmol/L Chloride 101 98-107 mmol/L Carbon Dioxide 28.1 21.0-32.0 mmol/L Anion Gap 14.3 Glucose 125 74-106 mg/dL Blood Urea Nitrogen 20.0 7.0-18.0 mg/dL Creatinine 1.18 0.55-1.02 mg/dL Estimated GFR ( Joyce 55 >=60 mL/min/1.73m 2 Estimated GFR (Non- Ivonne 45 >=60 mL/min/1.73m 2 BUN Creatinine Ratio 16.9 Calcium 9.6 8.5-10.1 mg/dL Phosphorus 3.7 2.6-4.7 mg/dL Albumin Level 3.6 3.4-5.0 g/dL Performing Lab: see note ML - [facility] MAGNESIUM Reviewed date:06/27/2024 07:31:55 PM Interpretation: Performing Lab: Notes/Report: [facility] , Magnesium 1.9 1.8-2.4 mg/dL Performing Lab: see note ML - [facility] IRON AND TIBC Reviewed date:06/27/2024 07:31:55 PM Interpretation: Performing Lab: Notes/Report: [facility] , Iron 71.0 50.0-170.0 ug/dL Total Iron Binding Capacity 290.0 250.0-450.0 ug/dL Percent Iron Saturation 24.5 Performing Lab: see note ML - [facility] Allergens w/Comp Rflx Area 5 Reviewed date:06/11/2024 08:56:27 PM Interpretation: Performing Lab: Notes/Report: [facility] , Class Description Comment . 1.41 - 3.90 III High >100.00 Very High 0.10 - 0.31 0/I Equivocal/Low Levels of Specific IgE Class Description of Class 0.32 - 0.55 I Low --------- ----- -- 19.01 - 100.00 V Very High 3.91 - 19.00 IV Very High 0.56 - 1.40 II Moderate < 0.10 0 Negative Immunoglobulin E, Total 146 6-495 IU/mL P280-IdD D pteronyssinus <0.10 Class 0 kU/L W835-OvM D farinae <0.10 Class 0 kU/L F318-LrJ Cat Dander <0.10 Class 0 kU/L A845-RiV Dog Dander <0.10 Class 0 kU/L I097-SdS Bermuda Grass <0.10 Class 0 kU/L S573-UrD Padilla Grass <0.10 Class 0 kU/L M231-FuZ Cockroach, Thai <0.10 Class 0 kU/L P135-IhU Penicillium chrysogen <0.10 Class 0 kU/L R404-DdL Cladosporium herbarum <0.10 Class 0 kU/L U377-WzY Aspergillus fumigatus <0.10 Class 0 kU/L W270-RyS Alternaria alternata <0.10 Class 0 kU/L W152-ZcC Maple/[place] <0.10 Class 0 kU/L H072-HhJ Common Silver Birch <0.10 Class 0 kU/L C934-OxD [place], Mountain <0.10 Class 0 kU/L N370-HyF [place], White <0.10 Class 0 kU/L A907-ZeI Elm, Surinamese <0.10 Class 0 kU/L F191-ShJ [place] <0.10 Class 0 kU/L R046-BxI Maple [place]out [place] <0.10 Class 0 kU/L Z163-BeH [place] <0.10 Class 0 kU/L C778-EeN Juan, White <0.10 Class 0 kU/L N286-RqI Pecan, [place] <0.10 Class 0 kU/L D968-KzV White [place] <0.10 Class 0 kU/L F009-OmB Ragweed, Short <0.10 Class 0 kU/L N876-TfQ Thistle, Greek <0.10 Class 0 kU/L A129-PhZ Pigweed, Common <0.10 Class 0 kU/L L635-RvY Sheep [place] <0.10 Class 0 kU/L J002-RxL Mouse Urine <0.10 Class 0 kU/L Vice President Consulting Services: Re Salvador MD, Phone: [phone] Performed at: [address] [id number] Performing Lab: see note LC - [facility] LB XR shoulder LT min 2V Reviewed date:05/06/2024 03:04:55 PM Interpretation: Performing Lab: Notes/Report: Source Facility: [place] [address] [place] [address] XRay Report Signed Patient: EMILY LUDWIG MR#: [id number] : 1950 Acct:[id number] Age/Sex: 73 / F ADM Date: 05/06/24 Loc: ER Attending Dr: Ordering Physician: Anirudh Rosales Date of Service: 05/06/24 Procedure(s): XR shoulder LT min 2V Accession Number(s): [id number] cc: Imer Agarwal M.D.; Anirudh Rosales The [place] [address] Patient Name: EMILY LUDWIG MRN: [facility]:[id number] date: 1950 Sex: F Assigned Patient Location: ER Current Patient Location: Accession/Order Number: [id number] Exam Date: 05/06/2024 11:50 Report Date: 05/06/2024 12:45 At the request of: ANIRUDH ROSALES Procedure: XR shoulder LT min 2V HISTORY: Left shoulder pain after a fall. XR shoulder LT min 2V: 05/06/2024 11:50 AM EST COMPARISON: None. FINDINGS: No fracture or dislocation is seen. There are postsurgical changes involving the visualized lower cervical spine at the edge of the rtecw-qc-pggi. There is a type I acromion. No joint space narrowing of the acromioclavicular joint. There is enthesophyte formation of the greater tuberosity. There are marginal osteophytes of the glenoid. The glenohumeral joint is not well profiled. XR/XR shoulder LT min 2V IMPRESSION: 1. No acute fracture or dislocation is seen. 2. There is evidence of degenerative change of the glenohumeral joint. However, the glenohumeral joint is not well profiled on this examination to assess the extent of joint space narrowing. A Grashey view of the shoulder could be obtained to evaluate the extent of joint space narrowing of the glenohumeral joint is clinically indicated. Electronically authenticated by: IMER FLORES Date: 05/06/2024 12:45 Dictated By: Imer Flores M.D. Signed By: 05/06/24 1247 DD/ 1245 TD/TT: Navigating Officer: [place] [address] XRay Report Signed Patient: EMILY LUDWIG MR#: [id number] : 1950 Acct:[id number] Age/Sex: 73 / F ADM Date: 05/06/24 Loc: ER Attending Dr: Ordering Physician: Anirudh Rosales Date of Service: 05/06/24 Procedure(s): XR acity ulder LT min 2V Accession Number(s): [id number] cc: Imer Agarwal M.D. ; Anirudh Rosales [place] [address] Patient Name: EMILY LUDWIG MRN: [id number] date: 1950 Sex: F Assigned Patient Location: ER Current Patient Location: Accession/Order Numb er: [id number] Exam Date: 11:50 Report Date: 05/06/2024 12:45 At the request of: ANIRUDH ROSALES Procedure: XR should er LT min 2V HISTORY: Left should er pain after a fall. XR shoulder LT min 2 V: 05/06/2024 11:50 AM EST COMPARISON: None. FINDINGS: No fractur e or dislocation is seen. There are postsurgical changes involving the visual ized lower cervical spine at the edge of the kmfyv-ce-tyuw. There is a type I acromion. No joint space narrowing of the acromioclavicular joint. There is enthesophyte formation of the greater tuberosity. There are marginal osteophytes of the glenoid. The glenohumeral joint is not well profiled. X R/XR shoulder LT min 2V IMPRESSION: 1. No acute fracture or dislocation is seen. 2. There is evidence of degenerative change of the glenohumeral joint. However, the glenohumeral darwin nt is not well profiled on this examination to assess the extent of joint spac e narrowing. A Grashey view of the shoulder could be obtained to evaluate the extent of joint space narrowing of the glenohumeral joint is clinically indicated. Electronically authenticated by: IMER FLORES Date: 05/06/2024 12:45 Dictated By: Imer Flores M.D. Signed By: 05/06/24 1247 DD/ 1245 TD/TT: Navigating Officer: PROF Sandoval(COMP METB) Reviewed date:11/22/2023 08:51:28 PM Interpretation: Performing Lab: Notes/Report: [facility] , Sodium 140 136-145 mmol/L Potassium 4.0 3.5-5.1 mmol/L Chloride 102 98-107 mmol/L Carbon Dioxide 29.1 21.0-32.0 mmol/L Anion Gap 12.9 Glucose 103 74-106 mg/dL Blood Urea Nitrogen 15.0 7.0-18.0 mg/dL Creatinine 0.94 0.55-1.02 mg/dL Estimated GFR ( Joyce >60 >=60 Estimated GFR (Non- Ivonne 59 >=60 BUN Creatinine Ratio 16.0 Calcium 9.2 8.5-10.1 mg/dL Bilirubin Total 0.7 0.2-1.0 mg/dL Aspartate Amino Transferase 15 15-37 U/L Alanine Aminotransferase 22 14-59 U/L Alkaline Phosphatase 86 46-116 U/L Total Protein 7.0 6.4-8.2 g/dL Albumin Level 3.6 3.4-5.0 g/dL Globulin 3.4 Albumin Globulin Ratio 1.1 Performing Lab: see note ML - [facility] LB GLYCOHEMOGLOBIN A1C Reviewed date:11/22/2023 08:51:28 PM Interpretation: Performing Lab: Notes/Report: [facility] , Glycohemoglobin A1C 5.4 4.5-6.2 % ADA RECOMMENDED LIMIT 4.0 - 6.0 > 7.0 ADA THERAPEUTIC TARGET < 7.0 ACTION SUGGESTED Estimated Average Glucose 108 Performing Lab: see note ML - [facility] LB CBC AUTO DIFF Reviewed date:11/22/2023 08:51:28 PM Interpretation: Performing Lab: Notes/Report: [facility] , White Blood Count 6.7 4.0-11.0 10 3/uL Red Blood Count 4.07 4.20-5.40 10 6/uL Hemoglobin 12.4 12.0-16.0 g/dL Hematocrit 38.0 36.0-48.0 % Mean Corpuscular Volume 93.4 81.0-99.0 fL Mean Corpuscular Hemoglobin 30.5 26.7-34.0 pg Mean Corpuscular HGB Conc 32.6 29.9-35.2 g/dL Red Cell Distribution Width 12.9 11.0-15.0 % Platelet Count 332 150-450 10 3/uL Mean Platelet Volume 9.3 9.5-13.5 fL Neutrophils Percent Auto 66.4 43.0-75.0 % Lymphocytes Percent Auto 18.5 20.5-60.0 % Monocytes Percent Auto 9.0 1.7-12.0 % Eosinophils Percent Auto 4.3 0.9-7.0 % Basophils Percent Auto 1.5 0.2-2.0 % Immature Granulocytes Pct Auto 0.3 0.0-0.5 % Neutrophils Absolute Auto 4.4 1.4-6.5 10 3/uL Lymphocytes Absolute Auto 1.2 1.2-3.8 10 3/uL Monocytes Absolute Auto 0.6 0.3-0.8 10 3/uL Eosinophils Absolute Auto 0.3 0.0-0.7 10 3/uL Basophils Absolute Auto 0.1 0.0-0.1 10 3/uL Immature Granulocytes Abs Auto 0.02 0.00-0.03 10 3/uL Performing Lab: see note ML - [facility] LB BNP Reviewed date:11/22/2023 08:51:28 PM Interpretation: Performing Lab: Notes/Report: [facility] , NT Pro B Type Natriuretic Pept 389.0 <=900.0 pg/mL Performing Lab: see note ML - [facility] LB Reason For Referral Diagnosis 1 Low back pain at [facility] (M54.50) Referral Organization [facility] Referring Provider First Name David Referring Provider Last Name Any Referring Provider Speciality [facility] Referred Provider [facility], Physical Therap y Referred Provider Specialty Physical Med icine and Rehabilitation Referral Priority Routine Reason anemia work up Diagnosis 1 Heart burn (R12) Referral Organization [facility] Referring Provider First Name David Referring Provider Last Name Any Referring Provider [facility] serene Referred Provider Wilfred Vargas Referred Provider Specialty General Surg nancy Referral Priority Routine Diagnosis 1 Anemia, iron deficie ncy (D50.9) Referral Organization [facility] Referring Provider First Name David Referring Provider Last Name Scottdora Referring Provider [facility]rene Referred Provider Jorge Ramirez Referred Provider Specialty Gastroentero logy Referral Priority Routine Diagnosis 1 Nasal congestion (R0 9.81) Referral Organization [facility] Referring Provider First Name David Referring Provider Last Name Scottdora [facility]erred Provider Celina Baca Referred Provider Specialty Otolaryngolo gy Referral Priority Routine Diagnosis 1 Incontinence of ishaan l (R15.9) Referral Organization [facility] Referring Provider First Name David Referring Provider Last Name Any Referring Provider [facility] Referred Provider Jorge Ramirez Referred Provider Specialty Gastroentero logy Referral Priority Routine Medications Medication SIG (Take, Route, Frequency, Duration) Notes Start Date End Date Status Losartan Potassium 50 mg TAKE 1 TABLET DAILY Active Lansoprazole 30 MG 1 capsule before a meal Orally Once a day for 30 days 11/17/2023 Active amLODIPine Besylate 10 mg TAKE 1 TABLET DAILY Active Venlafaxine HCl 75 MG 1 tablet with food Orally Once a day for 90 days Active Potassium Chloride ER 10 MEQ 1 tablet wi th food Orally once daily for 90 days Active Labetalol HCl 200 mg TAKE 1 TABLET EVERY MORNING Active hydroCHLOROthiazide 25 mg TAKE 1 TABLET DAILY IN THE MORNING Active Gabapentin 300 MG 1 to 2 tablets Orally at bedtime for 90 days 04/01/2023 Active CPAP Supplies -- Mask and Tubing Use with c-pap machine nightly Dx: G47.30 05/12/2023 Active Atorvastatin Calcium 20 mg TAKE 1 TABLET DAILY AT BEDTIME Active Vitamin D3 Active Ferrous Sulfate 325 (65 Fe) MG 1 tablet Orally once daily Active Donepezil HCl 5 MG 1 tablet at bedtime Orally Once a day for 90 days Active Social History Tobacco Use: Social History Observation Description Date Details (start date - stop date) Never Smoker NA - NA Tobacco Use/Smoking Question Answer Notes Patient is a nonsmoker Alcohol Screen (Audit-C) Question Answer Notes Did you have a drink contain ing alcohol in the past year? Yes How often did you have 6 or more drinks on one occasion in the past year? Never (0 point) How many drinks did you have on a typical day when you were drinking in the past year? 1 or 2 drinks (0 point) How often did you have a dri nk containing alcohol in the past year? 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 Problem Hypertension (98987496) Hypertension (I10) Active confirmed Problem Gastroesophageal reflux disease (096969706) GERD (gastroesophageal reflux disease) (K21.9) Active confirmed Problem Spinal stenosis (64980925) Spinal stenosis (M48.00) Active confirmed Problem Osteopenia (505966373) Osteopenia (M85.80) Active confirmed Problem Dyspnea (136085390) Dyspnea (R06.00) Active con firmed Problem Sleep apnea (62042432) Sleep apnea (G47.30) Active confirmed Problem Hiatal hernia (66138275) Hiatal hernia (K44.9) Active confirmed Problem Urinary incontinence (622087778) Urinary incontinence (R32) Active confirmed Problem Hyponatremia (64101972) Hyponatremia (E87.1) Active confirmed Problem Osteoarthritis of knee (832285792) Knee osteoarthritis (M17.9) Active confirmed Problem Diverticular disease of colon (053148896) Diverticulosis (K57.90) Active confirmed Problem Vitamin D deficiency (80844173) Vitamin D deficiency (E55.9) Active confirmed Problem Lumbar radiculopathy (614021244) Lumbar radiculopathy (M54.16) Active confirmed Problem Tubular adenoma of colon (350662078) Tubular adenoma of colon (D12.6) Active confirmed Problem Osteoporosis (22557029) Osteoporosis (M81.0) Active confirmed Problem Dysphagia (61658121) Dysphagia (R13.10) Active confirmed Problem Cervical spondylosis without myelopathy (634575127) Cervical spondylosis with radiculopathy (M47.22) Active confirmed Problem Malignant hypertensive chronic kidney disease (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) Hypertensive chronic kidney disease w stg 1-4/unsp chr kdny (I12.9) Active confirmed Problem Bowel incontinence (95588071) Fecal incontinence (R15.9) Active confirmed Problem Shoulder joint pain (092153698) Shoulder pain, left (M25.512) Active confirmed Problem Iron deficiency anemia (82515733) Anemia, iron deficiency (D50.9) Active confirmed Problem Spondylolysis of cervical spine (761506063) Cervical spondylolysis (M43.02) Active confirmed Problem Kyphoscoliosis deformity of spine (756314147) Kyphoscoliosis deformity of spine (M41.9) Active confirmed Problem Disorder of intestin e (31622115) Bowel disease (K63.9) Active confirmed Problem Amnesia (12767730) Memory loss, short term (R41.3) Active confirmed Problem hypercholesterolemia (disorder) (63186177) Hypercholesteremia (E78.00) Active confirmed Problem Hypercholesterolemia (57664768) Hypercholesterolemia (E78.00) Active confirmed Problem Pulmonary hypertension (08016036) Pulmonary hypertension (I27.20) Active confirmed Problem Esophagitis (74920253) Esophagitis (K20.90) Active confirmed Vital Signs Temperature 99.1 degrees Fahrenheit 10/22/2024 Blood pressure diastolic 64 mm Hg 10/22/2024 Height 62 in 10/22/2024 Blood pressure systolic 120 mm Hg 10/22/2024 Weight 181.4 lbs 10/22/2024 BMI 33.17 kg/m2 10/22/2024 Encounters Encounter Location Date Provider Diagnosis [facility] [address] [place] [address] 11/18/2023 David Agarwal Well adult Z00.00 [facility] [address] [place] [address] 10/23/2024 David Chavezy [facility] [address] [place] [address] 05/07/2024 David Hoy Nasal congestion R09 .81 [facility] [address] [place] [address] 06/27/2024 David Agarwal [facility] [address] [place] [address] 07/17/2024 David Agarwal [facility] [address] [place] [address] 07/19/2024 David Any [facility] [address] [place] [address] 09/21/2024 David Ayn [facility] [address] [place] [address] 10/22/2024 David Chavezy Incontinence of ishaan l R15.9 [facility] [address] [place] [address] 03/11/2024 David Any [facility] [address] [place] [address] 03/28/2024 David Agarwal [facility] [address] [place] [address] 04/09/2024 David Agarwal [facility] [address] [place] [address] 04/26/2024 David Agarwal [facility] [address] [place] [address] 04/26/2024 David Chavezy [facility] [address] [place] [address] 05/04/2024 David Hoy Nasal congestion R09 .81 [facility] [address] [place] [address] 11/22/2023 David Hoy [facility] [address] [facility] [place] [address] 12/08/2023 David Hoy [facility] [address] [facility] [place] [address] 12/14/2023 David Hoy [facility] [address] [place] [address] 02/07/2024 David Hoy Anemia, iron deficie ncy D50.9 [place] [address] [facility] [place] [address] 02/10/2024 David Hoy Incontinence of ishaan l R15.9 [place] [address] [place] [address] 03/05/2024 David Hoy [facility] [address] [facility] [place] [address] 03/19/2024 David Hoy Acute non-recurrent sinusitis, unspecified location J01.90 and Nasal congestion R09.[address] [place] [address] 04/09/2024 David Hoy Shoulder pain, left M25.[address] [place] [address] 11/17/2023 David Hoy Dyspnea R06.00 ; Hyp ertensive chronic kidney disease w stg 1-4/unsp chr kdny I12.9 ; Anemia, iron deficiency D50.9 ; Hypertension I10 and GERD (gastroesophageal reflux disease) K21.[address] [address] 02/03/2024 David Hoy Bowel disease K63.9 ; Heart burn R12 and Low back pain at multiple sites M54.[address] [place] [address] 03/12/2024 David Hoy Acute non-recurrent sinusitis, unspecified location J01.90 and Nasal congestion R09.[address] [address] 03/28/2024 David Agarwal Acute non-recurrent sinusitis, unspecified location J01.90 and Nasal congestion R09.81 [facility] [address] [place] [address] 07/19/2024 David Agarwal Knee osteoarthritis M17.9 [facility] [address] [place] [address] 10/22/2024 David Agarwal Vitamin D deficiency E55.9 ; Hypercholesterolemia E78.00 ; Pulmonary hypertension I27.20 and Hypertension I10 Assessments Encounter Date Diagnosis (ICD Code) Assessment Notes Treatment Notes Treatment Clinical Notes Section Notes 11/17/2023 Dyspnea (ICD-10 - R06.00) 11/17/2023 Hypertensive chronic kidney disease w stg 1-4/unsp chr kdny (ICD-10 - I12.9) needs repeat labs has sleep apnea - uses nohelia mask - may need repat a not as effective 02/03/2024 Bowel disease (ICD-1 0 - K63.9) 02/03/2024 Heart burn (ICD-10 - R12) 03/12/2024 Acute non-recurrent sinusitis, unspecified location (ICD-10 - J01.90) Rest and drink more liquids, especially water. You may use a humidifier or vaporizer to help keep the drainage moist. Wssp-bje-ycxgulh Nasal Saline may help the stuffy and runny nose. Use Ibuprofen and or Tylenol as needed for fever, chills, body aches or pain. Children 5 years old should not be given dycg-egy-zoutdtu cough and cold medications such as guaifenesin and dextromethorphan. If you're over age 5, you may try uaed-tmu-lylsxaz cold medications such as guaifenesin and dextromethorphan, or multi-symptom cold reliever such as Dayquil to help reduce the symptoms. Antibiotics have been prescribed. You should take these until completed and follow the directions. Antibiotics can sometimes cause upset stomach, and in rare cases, serious allergic reactions or serious gastrointestinal problems. If you start having severe abdominal pain, severe vomiting, or bloody diarrhea, you should be reevaluated by your physician or urgent care immediately. Follow up with your Primary Care Provider or return to clinic if symptoms do not improve within 3-5 days 03/19/2024 Acute non-recurrent sinusitis, unspecified location (ICD-10 - J01.90) Rest and drink more liquids, especially water. You may use a humidifier or vaporizer to help keep the drainage moist. Evqt-kst-wrdalve Nasal Saline may help the stuffy and runny nose. Use Ibuprofen and or Tylenol as needed for fever, chills, body aches or pain. Children 5 years old should not be given woab-idg-oahkjse cough and cold medications such as guaifenesin and dextromethorphan. If you're over age 5, you may try ykev-isd-oplbweo cold medications such as guaifenesin and dextromethorphan, or multi-symptom cold reliever such as Dayquil to help reduce the symptoms. Antibiotics have been prescribed. You should take these until completed and follow the directions. Antibiotics can sometimes cause upset stomach, and in rare cases, serious allergic reactions or serious gastrointestinal problems. If you start having severe abdominal pain, severe vomiting, or bloody diarrhea, you should be reevaluated by your physician or urgent care immediately. Follow up with your Primary Care Provider or return to clinic if symptoms do not improve within 3-5 days 04/09/2024 Shoulder pain, left (ICD-10 - M25.512) 07/19/2024 Knee osteoarthritis (ICD-10 - M17.9) Cleared FOR OR 10/22/2024 Vitamin D deficiency (ICD-10 - E55.9) 10/22/2024 Hypercholesterolemia (ICD-10 - E78.00) 11/18/2023 Well adult (ICD-10 - Z00.00) 02/07/2024 Anemia, iron deficie ncy (ICD-10 - D50.9) 02/10/2024 Incontinence of ishaan l (ICD-10 - R15.9) 05/04/2024 Nasal congestion (ICD-10 - R09.81) 05/07/2024 Nasal congestion (ICD-10 - R09.81) 10/22/2024 Incontinence of ishaan l (ICD-10 - R15.9) 03/28/2024 Acute non-recurrent sinusitis, unspecified location (ICD-10 - J01.90) if notbetter [address] sinuses 03/28/2024 Nasal congestion (ICD-10 - R09.81) 10/22/2024 Pulmonary hypertensi on (ICD-10 - I27.20) 03/19/2024 Nasal congestion (ICD-10 - R09.81) 03/12/2024 Nasal congestion (ICD-10 - R09.81) 02/03/2024 Low back pain at multiple sites (ICD-10 - M54.50) 11/17/2023 Anemia, iron deficie ncy (ICD-10 - D50.9) 11/17/2023 Hypertension (ICD-10 - I10) 10/22/2024 Hypertension (ICD-10 - I10) Cleared for OR 11/17/2023 GERD (gastroesophage al reflux disease) (ICD-10 - K21.9) double up the lansaprozole for 1 week and 2 tums bid and if not better - back to Dr Ramirez Plan Of Treatment Pending Test Test Name Order Date CMP (COMPLETE METABOLIC PANEL) 3 HEMOGLOBIN A1C (GLYCO) 10/22/2024 HEMOGLOBIN A1C (GLYCO) 04/06/2023 IRON, TOTAL 10/22/2024 IRON, TOTAL 04/06/2023 LIPID PANEL (CHOL/TRIG/HDL/LDL) 04/06/20 23 LIPID PANEL (CHOL/TRIG/HDL/LDL) 10/23/19 25 CBC WITH DIFF 04/06/2023 VITAMIN D, 25 LEVEL (TOTAL) 10/22/2024 VITAMIN D, 25 LEVEL (TOTAL) 04/06/2023 Insulin Level 10/22/2024 MAMM SCREEN BILAT ABIMBOLA 3D GLOBAL* 2023 STOOL OCCULT BLOOD 10/22/2024 THYROID PROFILE WITH TSH 11/17/2023 CT SINUSES WO CON 05/04/2024 MRI LSPINE WO CON 02/10/2024 THYROID PANEL (T4/TSH/FREE T3) 3 THYROID PANEL (T4/TSH/FREE T3) 5 MM screening mammo BI 11/17/2023 CMP (COMP MET COMBS) w/eGFR CKD-EPI 2024 CBC WITH DIFF 10/22/2024 Insurance Providers Payer Name Payer Address Payer Phone Subscriber Number Group Number Insured Name Patient Relationship to Insured Coverage Start Date Coverage End Date MEDICARE [place] [address] [phone] [id number] Raifsnid er, Emily Self - patient is the insured [facility] Generate [employer] [address] [address] [place] [phone] [id number] PLAN G Raifsnid er, Emily Self - patient is the insured Medical (General) History Medical History History ICD Code Osteoarthritis of knee M17.9 Memory loss, short term R41.3 Anemia, iron deficiency D50.9 COVID-19 U07.1 Hiatal hernia K44.9 Hypercholesterolemia E78.00 Osteoporosis M81.0 Lumbar radiculopathy M54.16 Kyphoscoliosis deformity of spine M41.9 Urinary incontinence R32 Obstructive hydrocephalus G91.1 Fecal incontinence R15.9 Hyponatremia E87.1 Cervical spondylolysis M43.02 Pulmonary hypertension I27.20 Sleep apnea G47.30 Dyspnea R06.00 Hypertensive chronic kidney disease w st g 1-4/unsp chr kdny I12.9 Hydrocephalus G91.9 Spinal stenosis M48.00 Cervical spondylosis with radiculopathy M47.22 Esophagitis K20.90 Diverticulosis K57.90 Osteopenia M85.80 Vitamin D deficiency E55.9 Tubular adenoma of colon D12.6 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
--- OUTSIDE RECORDS SUMMARY | 2024-10-27 10:21 | XMS_ITS | Encounter Summary ---
Author Organization [facility] Address [address] [place] [address] Care Team Providers Care Turbinated Bone Grinder Name Role Phone Rico Agarwal MD Primary Care Provider [phone] Encounter Details Date Type Department Care Team (Late st Contact Info) Description 10/22/2024 Orders Only [facility] [address] [place] [address] Barbara Thacker MA Social History Tobacco Use Types Packs/Day Years Used Date Smoking Tobacco: Never Smokeless Tobacco: Never Alcohol Use Standard Drinks/Week Comments Yes 3 (1 standard drink = 0.6 oz pur e alcohol) Comments Unknown Sex and Gender Information Value Date Recorded Sex Assigned at Female 08/22/2023 12:14 PM EDT Legal Sex Female 6:57 PM EDT Gender Identity Female 08/22/2023 12:14 PM EDT Sexual Orientation Straight 08/22/2023 12 :14 PM EDT documented as of this encounter Plan of Treatment Upcoming Encounters Date Type Department Care Team (Late st Contact Info) Description 11/14/2024 10:00 AM EDT Office Visit [facility] [address] [place] [address] Cintia Collado MD [address] [place] [address] 11/19/2024 10:30 AM EDT Office Visit [facility] [address] [place] [address] Sam Perez PA [address] [place] [address] 11/28/2024 9:50 AM EDT Procedure Visit [facility] [address] [place] [address] Cintia Collado MD [address] [place] [address] 06/18/2025 10:50 AM EST Office Visit [facility] [address] [place] [address] Janay Ngo APRN-[employer] SPECIALIST [address] [place] [address] documented as of this encounter Visit Diagnoses Not on filedocumented in this encounter Care Teams Turbinated Bone Grinder Relationship Specialty Start Date End Date Rico Agarwal MD [address] [place] [address] PCP - General Family Medicine 10/08/24 documented as of this encounter
--- OUTSIDE RECORDS SUMMARY | 2024-10-27 10:21 | XMS_ITS | Encounter Summary ---
Author Organization [facility] Address [address] [place] [address] Care Team Providers Care Rig Mechanic Name Role Phone Monika Guerrero Primary Care Provider [phone] Rico Agarwal MD Primary Care Provider [phone] Source Comments In the event this information is protected by the Federal Confidentiality of Alcohol and Drug AbusePatient Records regulations: The Federal rules restrict any use of the information to criminally investigate or prosecute any alcohol or drug abuse patient.[facility] Encounter Details Date Type Department Care Team (Late st Contact Info) Description 10/17/2021 Get Medical Advice General Surgery [address] [facility] [address] [place] [address] [place] [address] [facility] [address] [place] [address] [employer] Social History Tobacco Use Types Packs/Day Years Used Date Smoking Tobacco: Never Smokeless Tobacco: Never Chew Alcohol Use Standard Drinks/Week Comments Yes 0 (1 standard drink = 0.6 oz pur e alcohol) 1 drink monthly Area Deprivation Index Answer Date Samuel rded National Score (1-100), lower number is lower ri sk 73 10/01/2021 State Score (1-10), lower number is lower risk N ot on file 10/01/2021 Data from: https://www.neighborhoodatlas.medicine.[facility].edu/. Last address used for calculation [address] 10/01/2021 Comments No Sex and Gender Information Value Date Recorded Sex Assigned at Female 09/24/2021 10:02 PM EDT Legal Sex Female 7:19 AM EST Gender Identity Female 09/24/2021 10:02 PM EDT Sexual Orientation Straight 09/24/2021 10 :02 PM EDT COVID-19 Exposure Response Date Recorded In the last 10 days, have yo u been in contact with someone who was confirmed or suspected to have Coronavirus/COVID-19? No / Unsure 10/01/2021 10:21 AM EDT documented as of this encounter Plan of Treatment Not on file documented as of this encounter Visit Diagnoses Not on filedocumented in this encounter Care Teams Rig Mechanic Relationship Specialty Start Date End Date Monika Guerrero [address] [phone] PCP - General 08/13/04 11/02/21 Rico Agarwal MD [address] [phone] PCP - General Family Medicine 11/03/21 documented as of this encounter
--- OUTSIDE RECORDS SUMMARY | 2024-10-27 10:21 | XMS_ITS | Clinical Summary ---
Author Organization [facility] Address [address] [place] [address] Care Team Providers Care Snap Attacher Name Role Phone Rico Agarwal MD Primary Care Provider [phone] Allergies Active Allergy Reactions Criticality Noted Date Comments Other Other 03/01/2024 Medications amLODIPine (Norvasc) 10 MG tablet 03/22/20 23 Active atorvastatin (Lipitor) 20 MG tablet 04/18/20 23 Active hydroCHLOROthiazid e (HYDRODiuril) 25 MG tablet 11/20/19 23 Active labetalol (Normodyne) 200 MG tablet Take 1 tablet by mouth in the morning and 1 tablet before bedtime. 04/25/20 23 Active losartan (Cozaar) 50 MG tablet 05/03/20 23 Active venlafaxine XR (Effexor XR) 75 MG 24 hr capsule Take 75 mg by mouth Daily Do not crush or chew. Active ferrous sulfate 325 (65 Fe) MG tablet Take 325 mg by mouth in the morning. Take with meals. Active gabapentin (Neurontin) 300 MG capsule Take 300 mg by mouth in the morning and 300 mg in the evening and 300 mg before bedtime. Active cholecalciferol (Vitamin D-3) 25 MCG (1000 UT) capsule Take 1,000 Units by mouth Daily Active azelastine (Astelin) 0.1 % nasal sprayIndications:A llergic rhinitis due to dust Administer 2 sprays into each nostril in the morning and 2 sprays before bedtime. Use in each nostril as directed. 90 mL 3 04/04/20 24 025 Active potassium chloride CR (Klor-Con) 10 MEQ ER tablet Take 10 mEq by mouth in the morning. Active lansoprazole (Prevacid SoluTab) 15 MG disintegrating tablet Take 15 mg by mouth in the morning. Take before meals. Dissolve on tongue before swallowing particles; do not chew, cut, break, or swallow whole. Active donepezil (Aricept) 5 MG tablet Take 5 mg by mouth at bedtime Active Misc. Devices miscIndications:Pr imary osteoarthritis of right knee Dispense: Front Wheeled walker use 90 days. Ht: 5'2 Weight: 184 Dx M17.11 1 Units 07/18/19 25 Active nitrofurantoin, macrocrystal-monoh ydrate, (Macrobid) 100 MG capsuleIndications :Acute cystitis without hematuria Take 1 capsule (100 mg) by mouth in the morning and 1 capsule (100 mg) before bedtime. Do all this for 7 days. 14 capsule 10/20/19 25 025 Active Problems Problem Noted Date Diagnosed Date Osteoarthritis of right knee 05/11/2024 Status post cervical spinal fusion 06/16/2023 Spine disorder 03/21/2023 Anxiety 03/12/2023 Overview (05/11/2024): Last Assessment & Plan: Assessment: Pt. reports mood is stable with medication CKD (chronic kidney disease) stage 3, GFR 30-59 ml/min 03/12/2023 Overview (05/11/2024): Last Assessment & Plan: Assessment: 10/21/2021 GFR 59 mL/min Creatinine 1.[address] Barbosa ( Nephrology in [place]) Stable. Essential hypertension 03/12/2023 Overview (05/11/2024): Last Assessment & Plan: Assessment: Managed with med Date: BP: 11/03/2021 131/64 10/01/2021 122/57 Stable. Murmur 03/12/2023 Overview (05/11/2024): Last Assessment & Plan: Assessment: 2/6 MARGIE best heard at [facility] Pt. 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 03/12/2023 ADITI (obstructive sleep apnea) 03/12/2023 Overview (05/11/2024): Last Assessment & Plan: Assessment: compliant with CPAP Chest pain 01/07/2017 Dyspnea 01/07/2017 Abnormality of gait 08/19/2005 Congenital hydrocephalus 02/08/2005 Encounters Date Type Department Care Team Description 10/22/2024 Orders Only [facility] [address] [place] [address] Barbara Thacker MA 10/19/2024 Telephone [facility] [address] [facility] [address] [place] [address] Sam Perez PA UTI 10/08/2024 1:30 PM EDT Office Visit [facility] [address] [place] [address] Patel Claros, LILLIAM Primary osteoarthritis of right knee (Primary Dx); Pre-op exam 10/08/2024 Bamboo flowsheet [facility] [address] [place] [address] Patel Claros, LILLIAM 10/08/2024 Travel 07/30/2024 Telephone [facility] [address] [facility] [address] [place] [address] Jr. Simba Knapp, DO surgery from Last 3 Months Family History Medical History Relation Name Comments Cancer Brother 1 Davi Raifsnider Diabetes Brother 1 Davi Sanabriasnider Hearing loss Brother 1 Davi Raifsnider Heart failure Brother 1 Davi Raifsnider Hypertension Brother 1 Davi Raifsnider Migraines Brother 1 Davi Raifsnider Stroke Brother 1 Davi Raifsnider Diabetes Brother 2 Elijah (Brother) Hearing loss Brother 2 Elijah (Brother) Stroke Brother 2 Elijah (Brother) Hearing loss Brother 3 Ziyad (Brother) Heart failure Father Tin Goode Hypertension Father Tin Sanabriaskimberly Migraines Father Tin Goode Macular degeneration Father's Sister Cancer Mother Araseli Goode Melanoma Neg Hx Relation Name Status Comments Brother 1 Davi Racatesnider Brother 2 Elijah (Brother) Brother 3 Ziyad (Brother) Father Tin Goode Father's Sister Mother Araseli Goode Social History Tobacco Use Types Packs/Day Years Used Date Smoking Tobacco: Never Smokeless Tobacco: Never Tobacco Cessation:Counseling Given: Not Answered Alcohol Use Standard Drinks/Week Comments Yes 3 (1 standard drink = 0.6 oz pur e alcohol) Comments Unknown Sex and Gender Information Value Date Recorded Sex Assigned at Female 08/22/2023 12:14 PM EDT Legal Sex Female 6:57 PM EDT Gender Identity Female 08/22/2023 12:14 PM EDT Sexual Orientation Straight 08/22/2023 12 :14 PM EDT Last Filed Vital Signs Vital Sign Reading Time Taken Comments Blood Pressure 88/61 06/20/2024 11:23 AM EST Pulse 125 06/20/2024 11:23 AM EST Temperature - - Respiratory Rate - - Oxygen Saturation - - Inhaled Oxygen Concentration - - Weight 82.9 kg (182 lb 12.8 oz) 10/08/2024 1:28 PM EDT Height 157.5 cm (5' 2 ) 10/08/2024 1:28 PM EDT Body Mass Index 33.43 10/08/2024 1:28 PM EDT Plan of Treatment Upcoming Encounters Date Type Department Care Team (Late st Contact Info) Description 11/14/2024 10:00 AM EDT Office Visit [facility] [address] [place] [address] Cintia Collado MD [address] [place] [address] 11/19/2024 10:30 AM EDT Office Visit [facility] [address] [place] [address] Sam Perez, PA [address] [place] [address] 11/28/2024 9:50 AM EDT Procedure Visit [facility] [address] [place] [address] Cintia Collado MD [address] [place] [address] 06/18/2025 10:50 AM EST Office Visit [facility] [address] [place] [address] Janay Ngo, GRINDING WHEEL OPERATOR-PAPER CAP MACHINE OPERATOR [address] [place] [address] Health Maintenance Due Date Last Done Comments CT Colonography 1952 Colonoscopy 1952 Colorectal Cancer Screening 1952 FIT-DNA 1952 FIT 1952 FOBT 1952 Sigmoidoscopy 1952 Mammogram 1992 Influenza Vaccine Completed 02/22/2024, , 05/06/2022, Additional history exists Pneumococcal Vaccine: 65+ Years Completed 4 Insurance MEDICARE AETNA Advance Directives Documents on File Type Date Recorded Patient Power Plant Assistant Expl anation Power of Reinforcing Metal Worker 06/11/2024 10:51 PM Sarah Zhou [id number].jpeg Power of Reinforcing Metal Worker 06/11/2024 10:51 PM [id number] 101.jpeg Power of Reinforcing Metal Worker 06/11/2024 10:51 PM [id number] 102.jpeg Power of Reinforcing Metal Worker 06/11/2024 10:51 PM [id number] 103.jpeg Healthcare Agents on File Name Relationship Healthcare Agent Relationshi p Communication Sarah Zhou Friend Health Care Agent [phone] (Home) Care Teams Snap Attacher Relationship Specialty Start Date End Date Rico Agarwal MD [address] [place] [address] PCP - General Family Medicine 10/08/24
--- OUTSIDE RECORDS SUMMARY | 2024-10-27 10:22 | XMS_ITS | Clinical Summary ---
Author Organization [facility] Address [address] [email or web address] [address] Care Team Providers Care Per Diem Registered Nurse Name Role Phone Rico Agarwal MD Primary Care Provider [phone] Allergies No known active allergies Medications ibuprofen (ADVIL;MOTRIN) 800 MG tablet Take 800 mg by mouth every 6 hours as needed for Pain Active gabapentin (NEURONTIN) 300 MG capsule Take 300 mg by mouth 3 times daily.. Active labetalol (NORMODYNE) 200 MG tablet Take 200 mg by mouth 2 times daily Active omeprazole (PRILOSEC) 40 MG delayed release capsule Take 40 mg by mouth daily Active losartan (COZAAR) 50 MG tablet Take 50 mg by mouth daily Active diclofenac (VOLTAREN) 75 MG EC tablet Take 75 mg by mouth 2 times daily Active amLODIPine (NORVASC) 10 MG tablet Take 10 mg by mouth daily Active hydrochlorothiaz cari (HYDRODIURIL) 25 MG tablet Take 25 mg by mouth daily Active Ferrous Gluconate (IRON 27 PO) Take 65 mg by mouth Active Active Problems No known active problems Family History Medical History Relation Name Comments Diabetes Brother Stroke Brother Heart Disease Father High Blood Pressure Father Cancer Mother Diabetes Sister Relation Name Status Comments Brother Father Mother Sister Social History Tobacco Use Types Packs/Day Years Used Date Smoking Tobacco: Never Assessed Smokeless Tobacco: Never Comments Unknown Sex and Gender Information Value Date Recorded Sex Assigned at Not on file Legal Sex Female 4:26 PM EST Gender Identity Not on file Sexual Orientation Not on file Last Filed Vital Signs Vital Sign Reading Time Taken Comments Blood Pressure - - Pulse - - Temperature 36.4 C (97.6 F) 05/18/2019 2:15 PM EST Respiratory Rate - - Oxygen Saturation - - Inhaled Oxygen Concentration - - Weight 82.6 kg (182 lb) 05/18/2019 2:15 PM EST Height 165.1 cm (5' 5 ) 05/18/2019 2:15 PM EST Body Mass Index 30.29 05/18/2019 2:15 PM EST Plan of Treatment Not on file Insurance MEDICARE Care Teams Per Diem Registered Nurse Relationship Specialty Start Date End Date Rico Agarwal MD [address] [place] [address] PCP - General Family Medicine 08/16/17
--- OUTSIDE RECORDS SUMMARY | 2024-10-27 10:22 | XMS_ITS | Encounter Summary ---
Author Organization [employer] Address [id number] [address] [place] [address] Care Team Providers Care Community Associate Name Role Phone Provider, Siddharth MD Primary Care Provider Un available Encounter Details Date Type Department Care Team (Late st Contact Info) Description 08/06/2024 Telephone [facility] Internal [facility] - Family Medicine [address] [place] [id number] Lisa Espinoza CMA Social History Tobacco Use Types Packs/Day Years Used Date Smoking Tobacco: Never Assessed Childcare Answer Date Recorded Childcare Unknown 10/16/2018 Employment Answer Date Recorded Employment Unknown 10/16/2018 Purpose - Life Answer Date Recorded Purpose and direction in life Unknown Comments Unknown Sex and Gender Information Value Date Recorded Sex Assigned at Not on file Legal Sex Female 2:31 PM EDT Gender Identity Not on file Sexual Orientation Not on file documented as of this encounter Miscellaneous Notes * Telephone Encounter - Lisa Espinoza CMA - 08/06/2024 2:33 PM EDT Patient wanted to know if you would take her as a new patient? Heather Ugarte told her to call her. She is having Sinus infections and her doctor keeps treating it and it is not getting any better. * Telephone Encounter - Disha Giron APRN-EMANUEL - 08/06/2024 2:33 PM EDT I will take her but not until the fall/Jan as we have a provider leaving and will hopefully have areplacement provider by that time. Right now I'm paused. * Telephone Encounter - Lisa Espinoza CMA - 08/06/2024 2:33 PM EDT Spoke with the patient and she understands documented in this encounter Plan of Treatment Not on file documented as of this encounter Visit Diagnoses Not on filedocumented in this encounter Care Teams Community Associate Relationship Specialty Start Date End Date Provider, MD Siddharth PCP - General 09/10/13 documented as of this encounter
--- OUTSIDE RECORDS SUMMARY | 2024-10-27 10:22 | XMS_ITS | Encounter Summary ---
Author Organization [facility] Address [address] [address] Phone Care Team Providers Care Linter Tender Name Role Phone Rico Agarwal MD Primary Care Provider [phone] Encounter Details Date Type Department Care Team ([facility] st Contact Info) Description 12/07/2022 Scanned Document [facility] [address] [place] [address] Conversion, Onbase Social History Tobacco Use Types Packs/Day Years Used Date Smoking Tobacco: Never Assessed Comments Unknown Sex and Gender Information Value Date Recorded Sex Assigned at Not on file Legal Sex Female 12:31 PM EST Gender Identity Female 04/03/2023 1:11 PM EST Sexual Orientation Not on file documented as of this encounter Plan of Treatment Not on file documented as of this encounter Visit Diagnoses Not on filedocumented in this encounter Care Teams Linter Tender Relationship Specialty Start Date End Date Rico Agarwal MD [address] [facility] [place] [address] PCP - General 12/07/22 documented as of this encounter
--- OUTSIDE RECORDS SUMMARY | 2024-10-27 10:22 | XMS_ITS | Encounter Summary ---
Author Organization [facility] Address [address] [place] [address] Care Team Providers Care Communications Marketing Intern Name Role Phone Rico Agarwal MD Primary Care Provider [phone] Source Comments In the event this information is protected by the Federal Confidentiality of Alcohol and Drug AbusePatient Records regulations: The Federal rules restrict any use of the information to criminally investigate or prosecute any alcohol or drug abuse patient.[facility] Encounter Details Date Type Department Care Team (Late st Contact Info) Description 05/28/2022 Get Medical Advice General Surgery [facility] [address] [place], [place] [id number] Freda Pop APRN.[facility] [address] [place], [place] [id number] upper GI Social History Tobacco Use Types Packs/Day Years Used Date Smoking Tobacco: Never Smokeless Tobacco: Never Chew Alcohol Use Standard Drinks/Week Comments Yes 0 (1 standard drink = 0.6 oz pur e alcohol) 1 drink monthly Area Deprivation Index Answer Date Samuel rded National Score (1-100), lower number is lower ri sk 73 05/23/2022 State Score (1-10), lower number is lower risk N ot on file 05/23/2022 Data from: https://www.neighborhoodatlas.medicine.[facility]/. Last address used for calculation [address] 05/23/2022 Comments No Sex and Gender Information Value Date Recorded Sex Assigned at Female 09/24/2021 10:02 PM EDT Legal Sex Female 7:19 AM EST Gender Identity Female 09/24/2021 10:02 PM EDT Sexual Orientation Straight 09/24/2021 10 :02 PM EDT documented as of this encounter Functional Status * Are you deaf or do you have serious difficulty hearing? Answer Date of Assessment Author No 11/17/2021 1:51 PM Zakia Batista RN * Are you blind or do you have serious difficulty seeing, even when wearing glasses? Answer Date of Assessment Author No 11/17/2021 1:51 PM EDT Zakia Montiel RN * Do you have serious difficulty walking or climbing stairs? Answer Date of Assessment Author No 11/17/2021 1:51 PM Zakia Batista RN * Do you have difficulty dressing or bathing? Answer Date of Assessment Author No 11/17/2021 1:51 PM Zakia Batista RN * Because of a physical, mental, or emotional condition, do you have difficulty doing errands alone such as visiting a doctor's office or shopping? Answer Date of Assessment Author No 11/17/2021 1:51 PM Zakia Batista RN documented as of this encounter Mental Status * Because of a physical, mental, or emotional condition, do you have serious difficulty concentrating, remembering, or making decisions? Answer Entry Date Author No 11/17/2021 1:51 PM Zakia Batista RN documented in this encounter Plan of Treatment Not on file documented as of this encounter Visit Diagnoses Not on filedocumented in this encounter Care Teams Communications Marketing Intern Relationship Specialty Start Date End Date Rico Agarwal MD PCP - General Family Medicine 11/03/21 documented as of this encounter
--- OUTSIDE RECORDS SUMMARY | 2024-10-27 10:22 | XMS_ITS | Clinical Summary ---
Author Organization [facility] Address [address] [place] [address] Care Team Providers Care Manager Secondary Name Role Phone Rico Agarwal MD Primary Care Provider [phone] Allergies No known active allergies Medications HYDROCHLOROTHIA ZIDE 25 MG TAB Take one(1) tablet daily. 0 0 06/28/2006 Active Aspirin 81 mg ORAL Tab Take one(1) tablet daily. 0 0 08/29/2006 Active labetalol (TRANDATE) 200 mg tablet Take 200 mg by mouth once daily. Active losartan (COZAAR) 50 mg tablet Take 50 mg by mouth once daily. Active amLODIPine (NORVASC) 10 mg tablet Take 10 mg by mouth once daily. Active gabapentin (NEURONTIN) 300 mg capsule Take 300 mg by mouth as needed. Active ferrous sulfate (IRON) 325 mg (65 mg iron) tablet Take 325 mg by mouth daily with breakfast. Active Cholecalciferol , Vitamin D3, (VITAMIN D) 25 mcg (1,000 unit) cap Take 1,000 Units by mouth once daily. Active potassium chloride (K-TAB) 10 mEq tablet Take 10 mEq by mouth once daily. 10/03/2021 Active colesevelam (WELCHOL) 625 mg tablet Take 1,875 mg by mouth daily at bedtime. 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 Congenital hydrocephalus 02/08/2005 Refusal of blood transfusion s as patient is Evangelical Assessment & Plan (11/03/2021 10:06 AM EDT): Assessment: Documents and worksheet re: fractions scanned into [facility]. CKD (chronic kidney disease) stage 3, GFR 30-59 ml/min Assessment & Plan (11/03/2021 10:08 AM EDT): Assessment: 10/21/2021 GFR 59 mL/min Creatinine 1.[address] Barbosa ( Nephrology in [place]) Stable. Essential hypertension Assessment & Plan (11/03/2021 10:08 AM EDT): Assessment: Managed with med Date: BP: 11/03/2021 131/64 10/01/2021 122/57 Stable. ADITI (obstructive sleep apnea) Assessment & Plan (11/03/2021 10:08 AM EDT): Assessment: compliant with CPAP Anxiety Assessment & Plan (11/03/2021 10:09 AM EDT): Assessment: Pt. reports mood is stable with medication Murmur Assessment & Plan (11/03/2021 10:44 AM EDT): Assessment: 2/6 MARGIE best heard at [facility] Pt. reports she might have been told before, No ECHO Reports Chronic CULLEN, non-worsening has had for several years s/p cardiac cath (2016): Normal ECHO ordered Family History Medical History Relation Comments Heart disease Father Cancer Mother rectal Relation Status Comments Father Mother Social History Tobacco Use Types Packs/Day Years Used Date Smoking Tobacco: Never Smokeless Tobacco: Never Chew Tobacco Cessation:Counseling Given: Not Answered Alcohol Use Standard Drinks/Week Comments Yes 0 (1 standard drink = 0.6 oz pur e alcohol) 1 drink monthly Area Deprivation Index Answer Date Samuel rded National Score (1-100), lower number is lower ri sk 73 05/23/2022 State Score (1-10), lower number is lower risk N ot on file 05/23/2022 Data from: https://www.neighborhoodatlas.medicine.[facility]/. Last address used for calculation [address] 05/23/2022 Comments No Sex and Gender Information Value Date Recorded Sex Assigned at Female 09/24/2021 10:02 PM EDT Legal Sex Female 7:19 AM EST Gender Identity Female 09/24/2021 10:02 PM EDT Sexual Orientation Straight 09/24/2021 10 :02 PM EDT Last Filed Vital Signs Vital Sign Reading Time Taken Comments Blood Pressure 147/55 12/23/2021 10:00 AM EDT Pulse 58 12/23/2021 10:00 AM EDT Temperature 36.2 C (97.2 F) 12/23/2021 10:00 AM EDT Respiratory Rate 18 11/17/2021 7:54 AM EDT Oxygen Saturation 98% 12/23/2021 10:00 AM EDT Inhaled Oxygen Concentration - - Weight 73.9 kg (163 lb) 12/23/2021 10:00 AM EDT Height 160 cm (5' 3 ) 12/23/2021 10:00 AM EDT Body Mass Index 28.87 12/23/2021 10:00 AM EDT Plan of Treatment Health Maintenance Due Date Last Done Comments Annual PCP Team Chronic Dise ase Visit 1970 Depression Screening 1970 Hepatitis C Screening [address] Colonography 1997 Cologuard (FIT-DNA) 1997 Colonoscopy 1997 Colorectal Cancer Screening 1997 Fecal Occult Blood 1997 Lipid Screening 1997 Sigmoidoscopy 1997 Pneumococcal Vaccine: 50+ (1 of 1 - PCV) 2002 Shingrix Vaccine (2 of 3) 04/17/2014 02/20/2014 Medicare Annual Wellness Visit 11/06/2017 Bone Density Screening 2017 Serum Creatinine 11/17/2022 11/17/2021, , 10/21/2021, Additional history exists Covid-19 Vaccine (4 - 2023-2 5 season) 2024 03/11/2021, 08/10/2020, 07/11/2020 DTaP,Tdap,Td Vaccine (2 - Td or Tdap) 02/21/2024 02/20/2014 Advance Directive Discussion 05/09/2024 Diabetes Screening 11/17/2024 11/17/2021, 0 11/03/2021, 03/07/2013, Additional history exists Influenza Vaccine (Season Ended) 2025 05/06/2022, 02/18/2020, 10/08/2015 RSV Vaccine (1 - 1-dose 75+ series) 11/21/2027 Procedures Procedure Name Priority Date/Time Associated Diagnosis Comments BASIC METABOLIC PANEL Routine 11/17/2021 6:22 AM EDT from Last 3 Months or Most Recently Relevant to Health Maintenance Results * (ABNORMAL) BASIC METABOLIC PNL (11/17/2021 6:22 AM EDT) [facility] Glucose 110(H) 74 - 99 mg/dL 11/17/2021 7:12 AM EDT [facility] Comment: The [place] Diabetes Association (ADA) provides guidance for cutoff [...] Standards of Medical Care in Diabetes 2016, [place] Diabetes Association. Diabetes Care. 2016.39(Suppl 1). BUN 13 7 - 21 mg/dL 11/17/2021 7:12 AM EDT [facility] Creatinine 0.91 0.58 - 0.96 mg/dL 11/17/2021 7:12 AM EDT [facility] Sodium 132(L) 136 - 144 mmol/L 11/17/2021 7:12 AM EDT [facility] Potassium 3.6(L) 3.7 - 5.1 mmol/L 11/17/2021 7:12 AM EDT [facility] Chloride 95(L) 97 - 105 mmol/L 11/17/2021 7:12 AM EDT [facility] CO2 23 22 - 30 mmol/L 11/17/2021 7:12 AM EDT [facility] Anion Gap 14 9 - 18 mmol/L 11/17/2021 7:12 AM EDT [facility] Calcium, Total 9.6 8.5 - 10.2 mg/dL 11/17/2021 7:12 AM EDT [facility] Estimated Glomerular Filtration Rate 69 >=60 mL/min/1. 73m 11/17/2021 7:12 AM EDT [facility] Comment:Estimated Glomerular Filtration Rate (eGFR) is calculated using the 2020 CKD-EPI creatinine equation. This equation utilizes serum creatinine, sex, and age as parameters. The creatinine assay has traceable calibration to isotope dilution- mass spectrometry. Refer to KDIGO guidelines for clinical interpretation. In patients with unstable renal function, e.g. those with acute kidney injury, the eGFR may not accurately reflect actual GFR. Blood BLOOD SPECIMEN / Unknown Venipuncture / Unknown 11/17/2021 6:22 AM EDT 11/17/2021 6:34 AM EDT Patito Mendez MD LABORATORY Final Result [facility] [address] [place] [address], from Last 3 Months or Most Recently Relevant to Health Maintenance Insurance MEDICARE AETNA SUPPLEMENT Advance Directives Documents on File Type Date Recorded Patient Ranger Aide Expl anation Advance Directive(s) 11/03/2021 10:09 AM Advance Directive(s) 06/23/2006 Advance Directive(s) 06/23/2006 Care Teams Manager Secondary Relationship Specialty Start Date End Date Rico Agarwal MD PCP - General Family Medicine 11/03/21
--- OUTSIDE RECORDS SUMMARY | 2024-10-27 10:22 | XMS_ITS | Clinical Summary ---
Author Organization [employer] Address [id number] [address] [place] [address] Care Team Providers Care Mergers And Acquisitions Manager Name Role Phone Provider, Siddharth MD Primary Care Provider Un available Encounters Date Type Department Care Team Description 08/06/2024 Telephone [facility] Internal Medicine - Family Medicine [address] [place] [address] Lisa Espinoza CMA from Last 3 Months Social History Tobacco Use Types Packs/Day Years [...] on file Sexual Orientation Not on file Plan of Treatment Not on file Medical Devices Not on file Insurance MEDICARE Care Teams Mergers And Acquisitions Manager Relationship Specialty Start Date End Date Provider, Conversion, PCP - General 09/10/13
--- OUTSIDE RECORDS SUMMARY | 2024-10-27 10:22 | XMS_ITS | Encounter Summary ---
Author Organization [facility] Address [address] [place] [address] Phone Care Team Providers Care Supervisor Stock [place] Name Role Phone Rico Agarwal MD Primary Care Provider [phone] Encounter Details Date Type Department Care Team (Late st Contact Info) Description 05/10/2023 Scanned Document [facility] [address] [facility] [address] [place] [address] Giovani Goldsmith MD [address] [place] [address] Social History Tobacco Use Types Packs/Day Years Used Date Smoking Tobacco: Never Smokeless Tobacco: Never Alcohol Use Standard Drinks/Week Comments Yes 0 (1 standard drink = 0.6 oz pur e alcohol) 1 drink/month AUDIT-C Answer Date Recorded Q1: How often do you have a drink containing alc ohol? Monthly or less 04/07/2023 Q2: How many drinks containi ng alcohol do you have on a typical day when you are drinking? 1 or 2 04/07/2023 Q3: How often do you have si x or more drinks on one occasion? Never 04/07/2023 Overall Financial Resource Strain (CARDIA) Answe r Date Recorded How hard is it for you to pa y for the very basics like food, housing, medical care, and heating? Not hard at all 03/21/2023 PHQ-2 Answer Date Recorded Patient Health Questionnaire-2 Score 0 05/10/2023 PRAPARE - Transportation Answer Date Re corded In the past 12 months, has l ack of transportation kept you from medical appointments or from getting medications? No 03/09 In the past 12 months, has l ack of transportation kept you from meetings, work, or from getting things needed for daily living? No 03/21/2023 Housing Stability Vital Sign Answer Chalo e Recorded In the last 12 months, was t here a time when you were not able to pay the mortgage or rent on time? No 03/21/2023 In the last 12 months, how many places have you lived? 1 03/21/2023 In the last 12 months, was t here a time when you did not have a steady place to sleep or slept in a senior care (including now)? No 03/21/2023 Comments No Sex and Gender Information Value Date Recorded Sex Assigned at Not on file Legal Sex Female 12:31 PM EST Gender Identity Female 04/03/2023 1:11 PM EST Sexual Orientation Not on file COVID-19 Exposure Response Date Recorded In the last 10 days, have yo u been in contact with someone who was confirmed or suspected to have Coronavirus/COVID-19? No / Unsure 05/10/2023 11:24 AM EST documented as of this encounter Functional Status * Over the past 2 weeks, how often have you been bothered by any of the following problems? Question Answer Date of Assessment Author Little interest or pleasure in doing things Not at all 05/10/2023 11:29 AM Joellen Andrade MA Feeling down, depressed, or hopeless Not at all 05/10/2023 11:29 AM Joellen Andrade MA Patient Health Questionnaire -2 Score 0 05/10/2023 11:29 AM Joellen Andrade MA documented as of this encounter Plan of Treatment Not on file documented as of this encounter Goals Goal Patient Goal Type Associated Problems Recent Progress Patient-Stated? Author Help patient manage spine surgery Care Plan Patient has spine surgery No Alix Lutz RN documented as of this encounter Visit Diagnoses Not on filedocumented in this encounter Additional Health Concerns Active Problems Noted Date Diagnosed Date Patient has spine surgery 02/18/2023 Assessment Noted Time A fall risk assessment has been complete d for the patient 05/10/2023 11:29 AM EST documented as of this encounter Care Teams Supervisor [place] Relationship Specialty Start Date End Date Rico Agarwal MD [address] [id number] PCP - General 12/07/22 documented as of this encounter
--- OUTSIDE RECORDS SUMMARY | 2024-10-27 10:22 | XMS_ITS | Encounter Summary ---
Author Organization [facility] Address [address] [place] [address] Care Team Providers Care Wharf Builder Name Role Phone Rico Agarwal MD Primary Care Provider [phone] Source Comments In the event this information is protected by the Federal Confidentiality of Alcohol and Drug AbusePatient Records regulations: The Federal rules restrict any use of the information to criminally investigate or prosecute any alcohol or drug abuse patient.[facility] Encounter Details Date Type Department Care Team (Late st Contact Info) Description 06/08/2022 Get Medical Advice General Surgery [address] [place], [place] [id number] Freda Pop APRN.[facility] [address] [place], [place] [id number] [place] Social History Tobacco Use Types Packs/Day Years [...] Data from: https://www.neighborhoodatlas.medicine.[facility]/. Last address used for calculation [...] on filedocumented in this encounter Care Teams Wharf Builder Relationship Specialty Start Date End Date Rico Agarwal MD PCP - General Family Medicine 11/03/21 documented as of this encounter
--- OUTSIDE RECORDS SUMMARY | 2024-10-27 10:22 | XMS_ITS | Encounter Summary ---
Author Organization [facility] Address [address] [place] [address] Care Team Providers Care Universal Winding Machine Operator Name Role Phone Rico Agarwal MD Primary Care Provider [phone] Reason for Visit * Reason Onset Date Comments UTI 10/19/2024 Encounter Details Date Type Department Care Team (Late st Contact Info) Description 10/19/2024 Telephone [facility] [address] [facility] [address] [place] [address] Sam Perez PA [address] [facility] [address] [place] [address] UTI Social History Tobacco Use Types Packs/Day Years [...] PM EDT documented as of this encounter Miscellaneous Notes * Addendum Note - Barbara Casey MA - 10/22/2024 3:02 PM EDTAddended by: BARBARA CASEY on: 10/22/2024 03:02 PM Modules accepted: Orders * Telephone Encounter - Barbara Casey MA - 10/22/2024 3:02 PM EDT Urinalysis sent to [facility] for Sunday 10/29. * Telephone Encounter - Barbara Casey MA - 10/19/2024 1:42 PM EDT Called and spoke to patient. She said that she has incontinence but does her best to stay sanitary and is wondering if that is the cause of the UTI? She said she isn't having any symptoms. I let her know we sent in Macrobid into the pharmacy and we will have her repeat the urinalysis a week after finishing the abx, she would like to do that at [facility]. * Telephone Encounter - Barbara Casey MA - 10/19/2024 1:13 PM EDT I called the patient and left a voicemail requesting a phone call back. * Telephone Encounter - MARCELINO Garcia - 10/19/2024 1:09 PM EDT + UTI, Rx sent to pharmacy, will need to repeat UA when complete. Thank you. Please notify pt. documented in this encounter Plan of Treatment Upcoming Encounters Date Type Department Care Team (Late st Contact Info) Description 11/14/2024 10:00 AM EDT Office Visit [facility] [address] [place] [address] Cintia Collado MD [address] [place] [address] 11/19/2024 10:30 AM EDT Office Visit [facility] [address] [place] [address] Sam Perez PA [address] [place] [address] 11/28/2024 9:50 AM EDT Procedure Visit [facility] [address] [place] [address] Cintia Collado MD [address] [place] [address] 06/18/2025 10:50 AM EST Office Visit [facility] [address] [place] [address] Janay Ngo APRN-ROTARY OPERATOR [address] [place] [address] Scheduled Orders Name Type Priority Associated Diagnoses Orde r Schedule Urinalysis with reflex microscopic Lab Routine Pre-op exam Expected: 10/29/2024 (Approximate), Expires: 10/22/2025 Urine culture Microbiology Routine Pre-op exam Expected: 10/29/2024 (Approximate), Expires: 10/22/2025 documented as of this encounter Visit Diagnoses Diagnosis Pre-op exam- Primary Acute cystitis without hematuria documented in this encounter Care Teams Universal Winding Machine Operator Relationship Specialty Start Date End Date Rico Agarwal MD [address] [place] [address] PCP - General Family Medicine 10/08/24 documented as of this encounter
--- OUTSIDE RECORDS SUMMARY | 2024-10-27 10:22 | XMS_ITS | Encounter Summary ---
Author Organization [facility] Address [facility] [place] [address] Care Team Providers Care Upholstery Parts Sorter Name Role Phone Rico Agarwal MD Primary Care Provider [phone] Source Comments In the event this information is protected by the Federal Confidentiality of Alcohol and Drug AbusePatient Records regulations: The Federal rules restrict any use of the information to criminally investigate or prosecute any alcohol or drug abuse patient.[facility] Reason for Visit * Reason Comments Refill Request Encounter Details Date Type Department Care Team (Late st Contact Info) Description 04/26/2024 Refill General Surgery [address] [place] [address] Freda Pop APRN.[employer] [address] [phone] Refill Request Social History Tobacco Use Types Packs/Day Years [...] N ot on file 05/23/2022 Data from: https://www.neighborhoodatlas.medicine.[facility]/. Last address used for calculation [...] Zakia Batista RN documented in this encounter Miscellaneous Notes * Telephone Encounter - Freda Pop APRN.[facility] - 04/26/2024 11:49 AM EST Last appointment was in 2022, pt will need to obtain refill from her PCP or return for a follow up visit. Freda Pop APRN.[facility] documented in this encounter Plan of Treatment Not on file documented as of this encounter Visit Diagnoses Diagnosis Paraesophageal hernia Diaphragmatic hernia without mention of obstruction or gangrene documented in this encounter Care Teams Upholstery Parts Sorter Relationship Specialty Start Date End Date Rico Agarwal MD PCP - General Family Medicine 11/03/21 documented as of this encounter
--- OUTSIDE RECORDS SUMMARY | 2024-10-27 10:22 | XMS_ITS | Encounter Summary ---
Author Organization [facility] Address [facility] [place] [address] Care Team Providers Care Beverage Manager Name Role Phone Rico Agarwal MD Primary Care Provider [phone] Source Comments In the event this information is protected by the Federal Confidentiality of Alcohol and Drug AbusePatient Records regulations: The Federal rules restrict any use of the information to criminally investigate or prosecute any alcohol or drug abuse patient.[facility] Encounter Details Date Type Department Care Team (Late st Contact Info) Description 11/25/2021 Patient Msg General Surgery [address] [place], [place] [phone] Provider, Deedee Operative Report dated 11/16/2021 Social History Tobacco Use Types Packs/Day Years Used Date Smoking Tobacco: Never Smokeless Tobacco: Never Chew Alcohol Use Standard Drinks/Week Comments Yes 0 (1 standard drink = 0.6 oz pur e alcohol) 1 drink monthly Area Deprivation Index Answer Date Samuel rded National Score (1-100), lower number is lower ri 73 10/01/2021 State Score (1-10), lower number is lower risk N ot on file 10/01/2021 Data from: https://www.neighborhoodatlas.medicine.[facility]/. Last address used for calculation [address] 10/01/2021 Comments No Sex and Gender Information [...] suspected to have Coronavirus/COVID-19? No / Unsure 11/16/2021 4:42 PM EDT documented as of this encounter Functional Status * Are you deaf or do you have serious difficulty hearing? Answer Date of Assessment Author No 11/17/2021 1:51 PM Zakia Batista RN * Are you blind or do you have serious difficulty seeing, even when wearing glasses? Answer Date of Assessment Author No 11/17/2021 1:51 PM Zakia Batista RN * Do you have serious difficulty [...] on filedocumented in this encounter Care Teams Beverage Manager Relationship Specialty Start Date End Date Rico Agarwal MD PCP - General Family Medicine 11/03/21 documented as of this encounter
--- OUTSIDE RECORDS SUMMARY | 2024-10-27 10:22 | XMS_ITS | Clinical Summary ---
Author Organization [facility] Address [address] [place] [address] Phone Care Team Providers Care Die Cast Supervisor Name Role Phone Rico Agarwal MD Primary Care Provider [phone] Allergies No known active allergies Medications amLODIPine (Norvasc) 10 mg tablet Take 1 tablet (10 mg) by mouth once daily. Active atorvastatin (Lipitor) 20 mg tablet Take by mouth. 3 Active cholecalciferol (Vitamin D-3) 25 MCG (1000 UT) capsule Take 1 capsule (25 mcg) by mouth once daily. Active donepezil (Aricept) 5 mg tablet Take 1 tablet (5 mg) by mouth once daily. 3 Active ferrous sulfate 325 (65 Fe) MG tablet Take 1 tablet (325 mg) by mouth once daily with breakfast. Active gabapentin (Neurontin) 300 mg capsule Take 1-2 capsules (300-600 mg) by mouth once daily at bedtime. Active hydroCHLOROthiazi de (HYDRODiuril) 25 mg tablet Take 1 tablet (25 mg) by mouth once daily. 7 Active lansoprazole (Prevacid) [address] capsule Take 1 capsule (30 mg) by mouth once daily. Active losartan (Cozaar) 50 mg tablet Take 1 tablet (50 mg) by mouth once daily. Active potassium chloride CR 10 mEq ER tablet Take 1 tablet (10 mEq) by mouth once daily. Active venlafaxine (Effexor) 75 mg tablet Take by mouth. Activ e labetalol (Normodyne) 100 mg tabletIndications :Essential hypertension Take 1 tablet (100 mg) by mouth 2 times a day. 3 Active iron 18 mg tablet Take by mouth once every 24 hours. 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 reports mood is stable with medication CKD (chronic kidney disease) stage 3, GFR 30-59 ml/min (Multi) 03/12/2023 Overview (03/12/2023): Last Assessment & Plan: Assessment: 10/21/2021 GFR 59 mL/min Creatinine 1.[address] Barbosa ( Nephrology in [place]) Stable. Essential hypertension 03/12/2023 Overview (03/12/2023): Last Assessment & Plan: Assessment: Managed with med Date: BP: 11/03/2021 131/64 10/01/2021 122/57 Stable. Murmur 03/12/2023 Overview (03/12/2023): Last Assessment & Plan: Assessment: 2/6 MARGIE best heard at [facility] Pt. 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 Congenital hydrocephalus 02/08/2005 Resolved Problems Problem Noted Date Diagnosed Date Resolved Date Preop testing 03/21/2023 03/23/2023 Cervical spondylosis with myelopathy 03/21/2023 03/23/2023 Immunizations Immunization Administration Dates Next Due Influenza, Seasonal, Quadrivalent, Adjuvanted Influenza, Unspecified 03/02/2023 Influenza, seasonal, injectable 10/08/2015 Influenza, trivalent, adjuvanted 02/18/2020 Moderna COVID-19 vaccine, bi valent, blue cap/cash label *Check age/dose* 06/05/2022 Respiratory Synctial Virus (Rsv), Unspecified Tdap vaccine, age 7 year and older (BOOSTRIX, AD ACEL) 02/20/2014 Zoster, live 02/20/2014 Social History Tobacco Use Types Packs/Day Years [...] Date Recorded Patient Health Questionnaire-2 Score 0 03/21/2024 PRAPARE - Transportation Answer Date Re corded [...] place to sleep or slept in a long-term (including now)? No 03/21/2023 Comments No Sex and Gender Information Value Date Recorded Sex Assigned at Not on file Legal Sex Female 12:31 PM EST Gender Identity Female 04/03/2023 1:11 PM EST Sexual Orientation Not on file Last Filed Vital Signs Vital Sign Reading Time Taken Comments Blood Pressure 132/84 03/21/2024 11:18 AM EST Pulse 85 03/21/2024 11:18 AM EST Temperature 36.1 C (97 F) 03/21/2024 11:18 AM EST Respiratory Rate 16 05/10/2023 11:27 AM EST Oxygen Saturation 95% 03/23/2023 8:20 AM EST Inhaled Oxygen Concentration - - Weight 82.6 kg (182 lb) 03/21/2024 11:18 AM EST Height 157.5 cm (5' 2 ) 03/21/2024 11:18 AM EST Body Mass Index 33.29 03/21/2024 11:18 AM EST Plan of Treatment Health Maintenance Due Date Last Done Comments Bone Density Scan 1952 CT Colonography 1952 FIT-DNA (Cologuard) 1952 FIT 1952 Lipid Panel 1950 Medicare Annual Wellness Visit (AWV) 1950 Sigmoidoscopy 1950 Hepatitis C Screening 1970 Mammogram 1992 Zoster Vaccines (2 of 3) 04/17/2014 02/20/2014 DTaP/Tdap/Td Vaccines (2 - Td or Tdap) 02/21/2024 02/20/2014 COVID-19 Vaccine ( season) 2024 02/22/2024, 06/05/2022, 03/11/2021, Additional history exists Colonoscopy 04/08/2032 04/08/2022 Colorectal Cancer Screening 04/08/2032 RSV High Risk: (Elderly (60+) or Population) Completed 03/02/2023 Influenza Vaccine Completed 02/22/2024, , 05/06/2022, Additional history exists Pneumococcal Vaccine Completed 02/22/2024 HIB Vaccines Aged Out No longer eligi ble based on patient's age to complete this topic HPV Vaccines Aged Out No longer eligi ble based on patient's age to complete this topic Hepatitis A Vaccines Aged Out No long er eligible based on patient's age to complete this topic Hepatitis B Vaccines Aged Out No long er eligible based on patient's age to complete this topic IPV Vaccines Aged Out No longer eligi ble based on patient's age to complete this topic Meningococcal Vaccine Aged Out No lane kiki eligible based on patient's age to complete this topic Rotavirus Vaccines Aged Out No longer eligible based on patient's age to complete this topic Goals Goal Patient Goal Type Associated Problems Recent Progress Patient-Stated? Author Help patient manage spine surgery Care Plan Patient has spine surgery Alix Vasquez, RN Medical Devices Implanted Type Area Metal Casket Assembler Device Identifier Shelf Expiration Date Model / Serial / Lot Allograft, Triad Lordotic 7 X 11 X 14 - [id number] - [id number] Implanted:Qty : 1 on 03/21/2023 by Giovani Goldsmith MD at [facility] Spinal Hardware N/A: Spine Cervical [employer] 10/13/2027 [id number] / [id number] / Allograft, Triad Lordotic 6 X 11 X 14 - [id number] - [id number] Implanted:Qty : 1 on 03/21/2023 by Giovani Goldsmith MD at [facility] Spinal Hardware N/A: Spine Cervical [employer] 05/18/2027 [id number] / [id number] / Allograft, Triad Lordotic 7 X 11 X 14 - [id number] - [id number] Implanted:Qty : 1 on 03/21/2023 by Giovani Goldsmith MD at [facility] Spinal Hardware N/A: Spine Cervical [employer] 10/13/2027 [id number] / [id number] / Allograft, Triad Lordotic 7 X 11 X 14 - [id number] - [id number] Implanted:Qty : 1 on 03/21/2023 by Giovani Goldsmith MD at [facility] Spinal Hardware N/A: Spine Cervical [employer] 10/13/2027 [id number] / [id number] / Screw, Acp, Self Drill, 3.5 X 15mm, Variable - [id number] - [id number] Implanted:Qty : 10 on 03/21/2023 by Giovani Goldsmith MD at [facility] Spinal Hardware N/A: Spine Cervical [employer] [id number] / [id number] / 70 Mm 2.1 H Plate Implanted:Qty : 1 on 03/21/2023 by Giovani Goldsmith MD at [facility] N/A: Spine Cervical [employer] [id number] / [id number] / Additional Health Concerns Active Problems Noted Date Diagnosed Date Patient has spine surgery 02/18/2023 Insurance MEDICARE PART A AND B [employer] SENIOR SUPPLEMENT Advance Directives For more information, please contact: [phone] (Available ) * Full Code (Latest Code Status on File) Date Activated Date Inactivated Comments 03/21/2023 4:19 PM 03/23/2023 12:38 PM Question Answer Comments Plan of Care: Code Status Discussion Not Compl eted Decision Maker: Provider mary Rationale: Patient condition does not warra nt discussion * Full Code Date Activated Date Inactivated Comments 03/21/2023 6:49 AM 03/21/2023 4:19 PM Question Answer Comments Plan of Care: Code Status Discussion Not Compl eted Decision Maker: Provider Rationale: Patient condition does not warra nt discussion Care Teams Die Cast Supervisor Relationship Specialty Start Date End Date Rico Agarwal MD [address] [facility] [place] [address] PCP - General 12/07/22
--- OUTSIDE RECORDS SUMMARY | 2024-10-27 10:22 | XMS_ITS | Encounter Summary ---
Author Organization [facility] Address [address] [place] [address] Phone Care Team Providers Care Rocket Propellant Plant Supervisor Name Role Phone Rico Agarwal MD Primary Care Provider [phone] Encounter Details Date Type Department Care Team (Late st Contact Info) Description 03/22/2023 Scanned Document [facility] [address] [place] [address] Conversion, Onbase Social History Tobacco Use Types Packs/Day Years Used Date Smoking Tobacco: Never Smokeless Tobacco: Current Chew Alcohol Use Standard Drinks/Week Comments Yes 0 (1 standard drink = 0.6 oz pur e alcohol) 1 drink/month AUDIT-C Answer Date Recorded Q1: How often do you have a drink containing alcohol? Never 03/21/2023 Q2: How many drinks containi ng alcohol do you have on a typical day when you are drinking? Patient does not drink Q3: How often do you have si x or more drinks on one occasion? Never 03/21/2023 Overall Financial Resource Strain (CARDIA) Answe r Date Recorded How hard is it for you to pa y for the very basics like food, housing, medical care, and heating? Not hard at all 03/21/2023 PHQ-2 Answer Date Recorded Patient Health Questionnaire-2 Score 0 03/21/2023 PRAPARE - Transportation Answer Date Re corded [...] place to sleep or slept in a usp (including now)? No 03/21/2023 Comments No Sex [...] suspected to have Coronavirus/COVID-19? No / Unsure 03/21/2023 6:24 AM EST documented as of this encounter Plan of [...] Diagnosed Date Patient has spine surgery 02/18/2023 documented as of this encounter Care Teams Rocket Propellant Plant Supervisor Relationship Specialty Start Date End Date Rico Agarwal MD [address] [place] [address] PCP - General 12/07/22 documented as of this encounter
--- OUTSIDE RECORDS SUMMARY | 2024-10-27 10:22 | XMS_ITS | Encounter Summary ---
Author Organization [facility] Address [address] [place] [address] Phone Care Team Providers Care Web Press Jogger Name Role Phone Rico Agarwal MD Primary Care Provider [phone] Encounter Details Date Type Department Care Team ([facility] st Contact Info) Description 01/20/2023 Scanned Document [facility] [address] [place] [address] Conversion, Onbase Social History Tobacco Use Types Packs/Day Years Used Date Smoking Tobacco: Never Assessed Comments Unknown Sex and Gender Information Value Date Recorded Sex Assigned at Not on file Legal Sex Female 12:31 PM EST Gender Identity Female 04/03/2023 1:11 PM EST Sexual Orientation Not on file documented as of this encounter Functional Status * Little interest or pleasure in doing things Answer Date of Assessment Author Not at all 01/20/2023 2:47 PM EDT Conversio n, [employer] Touchworks Vitals documented as of this encounter Plan of Treatment Not on file documented as of this encounter Visit Diagnoses Not on filedocumented in this encounter Care Teams Web Press Jogger Relationship Specialty Start Date End Date Rico Agarwal MD [address] [facility] [place] [address] PCP - General 12/07/22 documented as of this encounter
--- OUTSIDE RECORDS SUMMARY | 2024-10-27 10:22 | XMS_ITS | Encounter Summary ---
Author Organization [facility] Address [address] [place] [address] Care Team Providers Care Chiropractic Assistant Name Role Phone Rico Agarwal MD Primary Care Provider [phone] Rico Agarwal MD Unavailable [phone] Rico Agarwal MD Primary Care Provider [phone] Encounter Details Date Type Department Care Team (Late st Contact Info) Description 07/16/2024 External Result Encounter [facility] External Department Unsolicited Jr. Simba Knapp, DO [address] [address] Social History Tobacco Use Types Packs/Day Years [...] MD [address] [place] [address] 11/19/2024 10:30 AM EDT Office Visit [facility] [address] [place] [address] Sam Perez, PA [address] [place] [address] 11/28/2024 9:50 AM EDT Procedure Visit [facility] [address] [place] [address] Cintia Collado MD [address] [place] [address] 06/18/2025 10:50 AM EST Office Visit [facility] [address] [place] [address] Janay Ngo, [employer] IMAGE CONSULTANT-BUSINESS OFFICE TECHNOLOGY INSTRUCTOR [address] [place] [address] documented as of this encounter Procedures Procedure Name Priority Date/Time Associated Diagnosis Comments ECG 12-LEAD 07/16/2024 9:28 AM EDT documented in this encounter Results * ECG 12 lead (07/16/2024 9:28 AM EDT) 07/16/2024 9:28 AM EDT Misael [facility] - 07/16/2024 4:14 PM EDT [facility] Main [address] [address] Electrocardiograph Report Signed Patient: Mary Goode MR#: [id number] : 1950 Acct:[id number] Age/Sex: 73 / F ADM Date: 07/16/24 Loc: PS Room: Type: [facility] CLI Attending Dr: Simba Knapp Jr, DO Ordering Provider: Simba Knapp Jr, DO Date of Service: 07/16/2403/02/911 ECG/ECG 12 lead ECG: PST Copies to: Test Reason : Blood Pressure : */* mmHG Vent. Rate : 63 BPM Atrial Rate : 63 BPM P-R Int : 202 ms QRS Dur : 88 ms QT Int : 432 ms P-R-T Axes : 55 55 55 degrees QTcB Int : 442 ms Normal sinus rhythm Normal ECG When compared with ECG of 27-Apr-2012 16:09, No significant change was found Confirmed by Simba Morel ([id number]) on 07/16/2024 4:14:04 PM Referred By: Electronically Signed By: Simba Morel Transcribed By: MUS Signed By Simba Morel MD 07/16/24 1614 Procedure Note Janet Morel MD - 07/16/2024 [facility] [place] [address] Electrocardiograph Report Signed Patient: Mary Goode MMR#: [id number] : 1950cct:[id number] Age/Sex: 73 / FADM Date: 07/16/24 Loc: PS Room:Type: [facility] CLI Attending Dr: Simba Knapp Jr, DO Ordering Provider: Simba Knapp Jr, DO Date of Service: 07/16/2403/02/911 ECG/ECG 12 lead ECG: PST Copies to: Test Reason : Blood Pressure : */* mmHG Vent. Rate : 63 BPM Atrial Rate : 63 BPM P-R Int : 202 ms QRS Dur : 88 ms QT Int : 432 ms P-R-T Axes : 55 55 55 degrees QTcB Int : 442 ms Normal sinus rhythm Normal ECG When compared with ECG of 27-Apr-2012 16:09, No significant change was found Confirmed by Simba Morel ([id number]) on 07/16/2024 4:14:04 PM Referred By: Electronically Signed By: Simba Morel Transcribed By: MUS Signed By Simba Morel MD 07/16/24 1614 us Jr. Simba Knapp DO ECG ORDERABLES Final [place] [address], documented in this encounter Visit Diagnoses Not on filedocumented in this encounter Care Teams Chiropractic Assistant Relationship Specialty Start Date End Date Rico Agarwal MD PCP - General Family Medicine 05/24/23 10/07/24 [place] [address] [place] [phone] PCP - General Family Medicine 10/08/24 Rico Agarwal MD Family Medicine 05/24/23 10/07/24 documented as of this encounter
--- OUTSIDE RECORDS SUMMARY | 2024-10-27 10:22 | XMS_ITS | Encounter Summary ---
Author Organization [facility] Address [address] [place] [address] Care Team Providers Care Cushion Installer Name Role Phone Rico Agarwal MD Primary Care Provider [phone] Rico Agarwal MD Unavailable [phone] Rico Agarwal MD Primary Care Provider [phone] Encounter Details Date Type Department Care Team (Late st Contact Info) Description 07/16/2024 External Result Encounter [facility] External Department Unsolicited Jr. Simba Knapp, DO [address] [address] Social History Tobacco Use Types Packs/Day Years [...] 11/14/2024 10:00 AM EDT Office Visit [facility] [address] [place] [address] Cintia Collado MD [address] [place] [address] 11/19/2024 10:30 AM EDT Office Visit [facility] [address] [place] [address] Sam Perez, PA [address] [place] [address] 11/28/2024 9:50 AM EDT Procedure Visit [facility] [address] [place] [address] Cintia Collado MD [address] [place] [address] 06/18/2025 10:50 AM EST Office Visit [facility] [address] [place] [address] Janay Ngo, COMPOSING MACHINE OPERATOR-SUPERVISOR MENDING [address] [place] [address] documented as of this encounter Procedures Procedure Name Priority Date/Time Associated Diagnosis Comments BONE LENGTH STUDIES (SCANOGRAM) 07/16/2024 4:19 PM EDT documented in this encounter Results * BONE LENGTH STUDIES (SCANOGRAM) (07/16/2024 4:19 PM EDT) Anatomical Region Laterality Modality Radiographic Roshni ging 07/16/2024 4:19 PM EDT Impressions 07/16/2024 4:24 PM EDT Adequate leg length. Right knee valgus deformity and degenerative change. Impression dictated by: Adan Chen M.D.07/16/2024 4:21 PM Dictation Location: [place] [address] Transcribed By: JACKIE 07/16/24 1621 Dictated By: Adan Chen DO 07/16/24 1619 Signed By: <Electronically signed by Adan Chen DO in OV> 07/16/24 1621 Narrative 07/16/2024 4:24 PM EDT [address] [address] XRay Report Signed Patient: Mary Goode MR#: [id number] : 1950 Acct:[id number] Age/Sex: 73 / F ADM Date: 07/16/24 Loc: ICXD Room: Type: REG CLI Attending Dr: Simba Knapp Jr DO Copies to: Simba Knapp Jr, DO Ordering Provider: Simba Knapp Jr, DO Date of Service: 07/16/24 XR/XR bonelength lower extremity: pre op planning Plain film bone length lower extremity HISTORY: Preoperative planning The right knee valgus deformity. Moderate right knee degeneration. Mild left knee degeneration. Right leg length 88.6 cm. Left leg length 88.5 cm. No acute bony findings or bony lesion. XR/XR bonelength lower extremity Procedure Note Radiology, Radiologist, MD - 07/16/[address] [address] XRay Report Signed Patient: Mary Goode MMR#: [id number] : 1950cct:[id number] Age/Sex: 73 / FADM Date: 07/16/24 Loc: ICXD Room:Type: REG CLI Attending Dr: Simba Knapp Jr DO Copies to: Simba Knapp Jr, DO Ordering Provider: Simba Knapp Jr, DO Date of Service: 07/16/24 XR/XR bonelength lower extremity: pre opplanning Plain film bone length lower extremity HISTORY: Preoperative planning The right knee valgus deformity. Moderate right knee degeneration. Mildleft knee degeneration. Right leg length 88.6 cm. Left leg length 88.5 cm. No acute bonyfindings or bony lesion. XR/XR bonelength lower extremity IMPRESSION: Adequate leg length. Right knee valgus deformity and degenerative change. Impression dictated by: Adan Chen M.D.07/16/2024 4:21 PM Dictation Location: [facility] Transcribed By: [facility] 07/16/24 1621 Dictated By: Adan Chen DO 07/16/24 1619 Signed By: <Electronically signed by Adan Chen DO in OV> 07/16/[address] [facility] Knapp DO IMG XR PROCEDURES Final Result documented in this encounter Visit Diagnoses Not on filedocumented in this encounter Care Teams Cushion Installer Relationship Specialty Start Date End Date Rico Agarwal MD PCP - General Family Medicine 05/24/23 10/07/24 Rico Agarwal MD [address] [place] [address] PCP - General Family Medicine 10/08/24 Rico Agarwal MD Family Medicine 05/24/23 10/07/24 documented as of this encounter
--- OUTSIDE RECORDS SUMMARY | 2024-10-27 10:23 | XMS_ITS | CCD ---
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 Name Role Phone PHYSICIAN, DEFAULT Unavailable Unavailable PHYSICIAN, DEFAULT Unavailable Unavailable CATY YODER A Unavailable Unavailable CATY YODER Unavailable Unavailable SAMUEL SANCHEZ Unavailable Unavailable IMER PURCELL Unavailable Unavailable Monika Guerrero Primary Care Provider Darlene Barbosaul Unavailable Jorge Ramirez Unavailable Imer Purcell MD Primary Care Provider [phone] Keagan Chadwick Unavailable MD Imer Purcell Primary Care Provider [phone] MD Imer Purcell Attending Provider [phone] Ziyad Ngo Unavailable MD Imer Purcell Primary Care Provider [phone] MD Imer Purcell Attending Provider [phone] Adan Gonzalez Attending Provider MD Jorge Ramirez Attending Provider Imer Purcell [...] WILLAMS Primary Care Unavailable HOY ., DR IWLLAMS Attending Unavailable HOY ., DR WILLAMS Admitting [...] Unavailable Imer Purcell MD Primary Care Provider [phone] MD Imer Purcell Primary Care Provider [phone] MD Imer Purcell Attending Provider MD Gino Barbosa Attending Provider IMER PURCELL Primary Care Unavailable MIREILLE ZURITA Admitting Unavailable MIREILLE ZURITA Attending Unavailable IMER PURCELL Primary Care Unavailable COLILN SAGASTUME Consulting Unavailable ROBERT MACK Consulting Unavailable MIREILLE ZURITA S Referring Unavailable IMER PURCELL Primary Care Unavailable MIREILLE ZURITA S Referring Unavailable IMER PURCELL Primary Care Unavailable Monika Guerrero Primary Care Provider Imer Purcell MD Primary Care Provider [phone] Imer Purcell MD Unavailable MD Jorge Ramriez Attending Provider MD Imer Purcell Primary Care Provider MD Imer Purcell Attending Provider [phone] MIREILLE ZURITA Referring Unavailable HOYIMER DON Primary Care Unavailable MIREILLE ZURITA S Referring Unavailable HOYIMER DON Primary Care Unavailable ARASELI FAUSTIN Referring Unavailable HOYIMER DON Primary Care Unavailable YUDITHMIREILLE S Referring Unavailable HOYIMER DON Primary Care Unavailable ARASELI FAUSTIN Attending Unavailable HOIMER John DON Primary Care Unavailable MIREILLE ZURITA S Attending Unavailable HOYIMER DON Primary Care Unavailable MIREILLE ZURITA Attending Unavailable HOYIMER DON Primary Care Unavailable MIREILLE ZURITA Attending Unavailable HOYIMER DON Primary Care Unavailable MIREILLE ZURITA Attending Unavailable HOY, IMER DON Primary Care Unavailable Imer Purcell MD Primary Care Provider [phone] Rush Knapp DO Attending Provider [phone] Imer Purcell MD Primary Care Provider [phone] ERI NGO Attending Unavailable BEN FLORENTINO Attending Unavailable HEATHER BANG Attending Unavailable HEATHER BANG Attending Unavailable HEATHER BANG Attending Unavailable ESTELLE PEREZ Attending Unavailable JR. KNAPP GEORGE C Attending Unavaila octavio KNAPP JR., GEORGE C Referring Unavaila ble ESTELLE PEREZ Attending Unavailable HEATHER BANG Attending Unavailable JR. KNAPP GEORGE C Referring Unavaila ble HEATHER BANG Attending Unavailable BEN FLORENTINO Attending Unavailable PEPITO HOLLOWAY Attending Unavailable ESTELLE PEREZ Referring Unavailable KINJAL GARLAND Attending Unavailable BEN FLORENTINO Referring Unavailable Jorge Ramirez Admitting Unavailable Jorge Ramirez Attending Unavailable Hoy, Imer M Primary Care Unavailable Hoy, Imer M Primary Care Unavailable Hoy, Imer M Attending Unavailable Hoy, Imer M Admitting Unavailable Paco Gino Admitting Unavailable Paco, Gino Attending Unavailable Hoy, Imer M Primary Care Unavailable Hoy, Imer M Primary Care Unavailable Hoy, Imer M Attending Unavailable Hoy, Imer M Admitting Unavailable Rush Knapp Jr Admitting Unavailable Rush Knapp Jr Attending Unavailable Scotty, Imer M Primary Care Unavailable Rush Knapp Jr Admitting Unavailable Rush Knapp Jr Attending Unavailable Scotty, Imer M Primary Care Unavailable Rush Knapp Jr Attending Unavailable Scotty, Imer M Primary Care Unavailable Rush Knapp Jr Admitting Unavailable RUSH KNAPP Attending Unavailable IMER PURCELL Primary Care Unavailable RUSH KNAPP Admitting Unavailable RUSH KNAPP Admitting Unavailable RUSH KNAPP Attending Unavailable IMER PURCELL Primary Care Unavailable Allergies Allergy Classification Reported Allergen(s) Allergy Type Date of Onset Reaction(s) Facility (2 sources) No Known Allergies; Translations: [No Known Allergies] Propensity to adverse reactions (disorder) 7 [facility] Repository (1 source) No Known Medication Allergies; Translations: [No Known Medication Allergies] Propensity to adverse reactions (disorder) [facility] Repository (20 sources) Other Propensity to adverse reactions Other [facility] Healthcare (1 source) levoFLOXacin; Translations: [levoFLOXacin] Drug Allergy [facility] Repository Medications Current Medications Medication Drug Class(es) [...] Calcium Channel Sonia Start: 08-05-2021 End: 07-19-2023 take 1 tablet by mouth once daily in the morning Amlodipine 10 mg tablet Active 10 MG PO Every morning January 24, 2024 12:00am amLODIPine Besyl ate 5 MG Oral Tablet [...] hydrochloride 0.137 mg/actuat metered dose nasal spray (20 sources) Histamine-1 Receptor Antagonist Start: 04-04-2024 End: [...] (20 sources) Vitamin D Start: 01-24-2024 take 1 capsule by mouth once daily Cholecalciferol (Vitamin D3) 50 mcg (2,000 unit) capsule Active 50 MCG PO Daily January 24, 2024 12:00am Start: 08-05-2021 End: 07-19-2023 take 1 capsule by mouth once daily Cholecalciferol (Vitamin D3) (Vitamin D3) 25 mcg (1,000 unit) Capsule Discontinued 25 MCG PO Daily August 05, 2021 12:00am July 19, 2023 10:49am take 1 capsule by in ut once daily cholecalciferol (Vitamin D-3) 25 MCG [...] (20 sources) RANK Ligand Inhibitor Start: 08-05-2021 Denosumab (Prolia) 60 mg/mL Syringe Active 60 MG SUBCUT EVERY 6 MONTHS August 05, 2021 12:00am 24 hr desvenlafaxine 50 mg extended release [...] Orally bid for 30 day(s) Aug, Active diclofenac sodium 75 mg delayed release oral tablet (10 sources) Nonsteroidal Anti-inflammatory Drug End: 06-20-2024 take 1 tablet by mouth in the morning diclofenac (Voltaren) 75 MG EC tablet Take 75 mg by mouth in the morning and 75 mg before bedtime. 06/20/2024 Discontinued (Therapy completed) docusate sodium 100 mg oral capsule (3 [...] take 1 tablet by mouth once daily at bedtime Donepezil 5 mg tablet Active 5 MG PO Daily at bedtime July 19, 2023 12:00am ferrous sulfate 325 mg oral tablet (20 sources) Start: 07-19-2023 take 1 tablet by mouth once daily Ferrous Sulfate 325 mg (65 mg iron) tablet Active 325 MG PO Daily July 19, [...] Anti-epileptic Agent Start: 08-05-2021 End: 02-13-2024 take 1 capsule by mouth once daily as needed for pain Gabapentin 300 mg Capsule Active 300 MG PO Daily as needed for Pain August 05, 2021 12:00am Gabapentin 300 M G TABS Quantity: 0 Refills: 0 Ordered: 07-Dec-2022 DO Active Comment on above: Take 300 mg by mouth as needed. hydrALAZINE hydrochloride 50 mg oral tablet (3 sources) Arteriolar Vasodilator End: 2024 take 1 tablet by mouth twice daily hydrALAZINE (Apresoline) 50 MG tablet Take 1 tablet twice a day by oral route for 30 days. 05/16/2024 Discontinued (Therapy completed) hydroCHLOROthiazide 25 mg oral tablet (20 sources) Thiazide Diuretic Start: 2006 hydroCHLOROthiazide (HYDRODiuril) 25 MG tablet 11/19/2022 Active [...] bedtime. 04/25/2023 Active take 1 tablet by meghana th once daily labetalol (TRANDATE) 200 mg tablet Take 200 mg by mouth once daily. Active Comment on above: Take 200 mg by mouth once daily. lansoprazole 30 mg delayed release oral capsule (20 sources) Proton Pump Inhibitor Start: 3 End: take 1 capsule by mouth once daily Lansoprazole 30 mg capsule,delayed release(DR/EC) Active 30 MG PO Daily July 19, 2023 12:00am Start: 12-03-2021 End: 12-03-2021 take 1 capsule by mouth once daily lansoprazole (PREVACID) 30 mg capsule Indications: Paraesophageal hernia Take 1 capsule by mouth once daily. 90 capsule 2 12/03/2021 Active Start: 08-06-2021 End: 07-19-2023 take 1 capsule by mouth twice daily Lansoprazole 30 mg capsule,delayed release(DR/EC) Discontinued 30 MG PO Twice daily 140 70 August 06, 2021 12:00am July 19, 2023 10:47am take 1 tablet by meghana th before mealtime lansoprazole (Prevacid SoluTab) 15 MG disintegrating tablet Take 15 mg by mouth in the morning. Take before meals. Dissolve on tongue before swallowing particles; do not chew, cut, break, or swallow whole. Active Comment on above: Take 30 mg by mouth once daily. Take 1 capsule by mo ut once daily. Liver Support - (14 sources) Liver Support - as directed Sublingual ONCE A DAY Active losartan potassium 50 mg oral tablet (20 sources) Angiotensin 2 Receptor Sonia Start: 08-05-2021 losartan (Cozaar) 50 MG tablet 05/03/2023 Active Comment on above: Take 50 mg by mouth once daily. Misc. Devices misc (4 sources) Start: 07-17-2024 Misc. Devices misc Indications: Primary osteoarthritis of right knee Dispense: Front Wheeled walker use 90 days. Ht: 5'2 Weight: 184 Dx M17.11 1 Units 07/17/2024 Active 1 ml morphine sulfate 2 mg/ml prefilled [...] respiratory rate is greater than 12 breaths/minute. nitrofurantoin, macrocrystals 25 mg / nitrofurantoin, monohydrate 75 mg oral capsule (1 source) Nitrofuran Antibacterial Start: 10-19-2024 End: 10-26-2024 take 1 capsule by mouth in the morning nitrofurantoin, macrocrystal-monohy drate, (Macrobid) 100 MG capsule Indications: Acute cystitis without hematuria Take 1 capsule (100 mg) by mouth in the morning and 1 capsule (100 mg) before bedtime. Do all this for 7 days. 14 capsule 10/19/2024 10/26/2024 Active ofloxacin 3 mg/ml ophthalmic solution (5 sources) [...] oral tablet (20 sources) Start: 2 take 1 tablet by mouth once daily Potassium Chloride 10 mEq tablet extended release Active 10 MEQ PO Daily August 05, [...] 1 g by mouth tw ice daily. ubidecarenone 100 mg / vitamin e 5 unt oral capsule (3 sources) End: 05-16-19 take 1 capsule by mouth once daily coenzyme Q-10 100 MG capsule Take 1 capsule every day by oral route. 05/16/2024 Discontinued (Therapy completed) venlafaxine 75 mg oral tablet (20 sources) Serotonin and Norepinephrine Reuptake Inhibitor Start: 07-12-19 take 1 tablet by mouth once daily Venlafaxine 75 mg tablet Active 75 MG PO Daily July 11, 2024 10:12am Start: 07-19-2023 End: 07-11-2024 take 1 tablet by mouth twice daily Venlafaxine 75 mg tablet Discontinued 75 MG PO Twice daily July 19, 2023 10:47am July 11, 2024 10:12am Start: 03-21-2023 take 75 mg by mouth three times daily at mealtime 75 mg, oral, 3 times daily with meals, First dose on Tue03/21/23 at 1700, Phase II/On Unit Start: 08-05-2021 End: 07-19-2023 take 1 tablet by mouth once daily Venlafaxine 75 mg tablet Discontinued 75 MG PO Daily August 05, 2021 12:00am July 19, 2023 10:51am take 1 capsule by mo uth once daily venlafaxine XR (Effexor XR) 75 [...] Indication (Select all that apply): Surgical Prophylaxis cefdinir 300 mg oral capsule (4 sources) Cephalosporin Antibacterial Start: 07-11-2024 End: 07-16-2024 take 2 capsules by mouth once daily Cefdinir 300 mg capsule Discontinued 600 MG PO Daily July 11, 2024 1:00am July 16, 2024 10:04am cetirizine hydrochloride 10 mg chewable tablet (9 sources) Histamine-1 Receptor Antagonist Start: 06-28-2006 ZYRTEC 10 MG CHEWABLE TAB Take one(1) tablet daily. 0 0 06/28/2006 Active Comment on above: Take one(1) tablet d aily. citalopram 20 mg oral tablet (20 sources) Serotonin Reuptake Inhibitor Start: 10-16-2007 End: 12-03-2021 CITALOPRAM 20 MG TAB Indications: Communicating hydrocephalus (HCC) Take one(1) tablet daily. 0 0 10/16/2007 12/03/2021 Discontinued (Discontinued by another Health Care Provider) End: 07-05-2024 take 1 tablet by mouth once daily citalopram (CeleXA) 40 MG tablet Take 1 tablet every day by oral route for 30 days. 07/05/2024 Discontinued (Therapy completed) Comment on above: Take one(1) tablet d aily. colesevelam hydrochloride 625 mg oral tablet (20 sources) Bile Acid Sequestrant Start: 08-06-19 End: 07-19-19 24 take 3 tablets by mouth twice daily Colesevelam 625 mg tablet Discontinued 1875 MG PO Twice daily August 05, 2021 12:00am July 19, 2023 10:49am Start: 08-05-2021 End: 07-19-2023 take 1875 mg by mouth twice daily Colesevelam Discontinued 1875 MG PO Twice daily August 05, 2021 12:00am July 19, 2023 10:49am take 3 tablets by mo [facility] once daily at bedtime colesevelam (WELCHOL) 625 mg tablet Take 1,875 mg by mouth daily at bedtime. Active Colesevelam HCl - 625 MG Oral Tablet Quantity: 0 Refills: 0 Ordered: 07-Dec-2022 DO Active Comment on above: Take 1,875 mg by meghana th daily at bedtime. CoQ-10 CAPS (2 sources) CoQ-10 CAPS Damion tity: 0 Refills: 0 Ordered: 07-Dec-2022 DO Active 0.5 ml HYDROmorphone hydrochloride 1 mg/ml prefilled syringe (1 source) Opioid Agonist Start: End: HYDROmorphone (Dilaudid) injection 0.5 mg ibuprofen 800 mg oral tablet (6 sources) Nonsteroidal Anti-inflammatory Drug End: ibuprofen (MOTRIN) 800 mg tablet Take 800 mg by mouth. 0 12/03/2021 Discontinued (Course of therapy completed) Comment on above: Take 800 mg by mouth . iv contrast (will be provided with radiology test) (8 sources) Start: iv contrast (will be provided with radiology [...] oral tablet (3 sources) beta-Adrenergic Sonia Start: METOPROLOL 25 MG TAB Take one(1) tablet two(2) times daily. 0 0 06/28/2006 Active Comment on above: Take one(1) tablet t wo(2) times daily. omeprazole 40 mg delayed release oral capsule (20 sources) Proton Pump Inhibitor Start: End: take 1 capsule by mouth twice daily Omeprazole 40 mg capsule,delayed release(DR/EC) Discontinued 40 MG PO Twice daily August 05, 2021 12:00am August 06, 2021 11:25am End: 05-16-2024 take 1 capsule by mouth once daily omeprazole (PriLOSEC) [address] capsule Take 1 capsule every day by oral route for 30 days. 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-02-19 Resolved : 12-01-19 Chronic Cataract (20 sources) Bilateral age-related nuclear cataracts; Translations: [Age-related [...] Episodic Deficiency and other anemia (10 sources) Anemia; Translations: [Anemia, unspecified] 07-19-2023 Episodic Diseases of mouth; excluding dental (8 sources) Glossopyrosis ; Translations: [Glossodynia] Onset: 05-11-1905-11-2024 Episodic Disorders of lipid metabolism (20 sources) Hyperlipidemia, unspecified; Translations: [Hyperlipidemia] Onset: 01-13-20 Chronic Esophageal disorders (13 sources) Gastroesophageal reflux disease; Translations: [Gastro-esophageal reflux disease without esophagitis] Chronic Essential hypertension (20 sources) Hypertensive disorder; Translations: [Essential (primary) hypertension] Onset: 11-04-19 22 11-03-2021 Chronic Genitourinary symptoms and ill-defined conditions (12 sources) Urinary incontinence; Translations: [Unspecified urinary incontinence] Chronic Hypertension with complications and secondary hypertension (20 sources) Hypertensive chronic kidney disease with stage 1 through stage 4 chronic kidney disease, or unspecified chronic kidney disease; Translations: [Hypertensive renal disease] Onset: 01-13-20 Resolved : 12-01-19 Chronic Neoplasms of unspecified nature or uncertain behavior (2 sources) Neoplastic disease; Translations: [Neoplasm of unspecified behavior of bone, soft tissue, and skin] 06-19-2024 Episodic Nervous system congenital anomalies (20 sources) Congenital hydrocephalus; Translations: [Congenital hydrocephalus, unspecified] Onset: 02-09-2002-08-2005 Chronic Nutritional deficiencies (20 sources) Vitamin D deficiency; Translations: [Vitamin D deficiency, unspecified] Onset: 06-02-19 Resolved : 12-01-19 Chronic Nutritional deficiencies (1 source) Iron deficiency Episodic Osteoarthritis (20 sources) Unilateral primary osteoarthritis, right knee; Translations: [Osteoarthritis of right knee joint] Onset: 06-24-19 Chronic Osteoporosis (20 sources) Osteoporosis; Translations: [Age-related osteoporosis without current pathological fracture] Onset: 06-02-19 Resolved : 12-01-19 Chronic Other acquired deformities (14 sources) Kyphoscoliosis deformity of spine; Translations: [Scoliosis, unspecified] Chronic Other acquired deformities (1 source) Scoliosis, unspecified; Translations: [SCOLIOSIS UNSPECIFIED] Onset: 01-26-20 Chronic Other aftercare (2 sources) Other buttermaker helper (current) drug therapy; Translations: [Long-term (current) use of other medications] Onset: 05-07-20 Episodic Other and unspecified benign neoplasm (2 sources) Melanocytic nevus of trunk; Translations: [Melanocytic nevi of trunk] 06-19-2024 Episodic Other and unspecified benign neoplasm (2 sources) Melanocytic nevi of other parts of face; Translations: [Benign neoplasm of skin of other and unspecified parts of face] 06-19-2024 Episodic Other circulatory disease (2 sources) Spider nevus; Translations: [Nevus, non-neoplastic] 06-19-2024 Episodic Other gastrointestinal disorders (1 source) Drug-induced constipation; Translations: [Drug induced constipation] 03-23-2023 Episodic Other gastrointestinal disorders (2 sources) Complete fecal incontinence; Translations: [Full incontinence of feces] Onset: 03-21-20 24 03-21-2024 Episodic Other hereditary and degenerative nervous system conditions (4 sources) 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; Translations: [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)] Onset: 03-12-20 Chronic Other injuries and conditions due to external causes (2 sources) Injury of face; Translations: [Unspecified injury of face, initial encounter] 05-16-2024 Episodic Other nervous system disorders (20 sources) Communicating [...] Onset: 05-17-19 Chronic Other nervous system disorders (8 sources) Ventriculoperitoneal shunt in situ; Translations: [Presence [...] sources) Obesity; Translations: [Obesity, unspecified] Chronic Other skin disorders (2 sources) Lentiginosis; Translations: [Other melanin hyperpigmentation] 06-19-2024 Episodic Other skin disorders (2 sources) Seborrheic keratosis; Translations: [Other seborrheic keratosis] 06-19-2024 Episodic Other skin disorders (2 sources) Actinic keratosis; Translations: [Actinic keratosis] 06-19-2024 Episodic Other upper respiratory disease (2 sources) Allergic rhinitis; Translations: [Other allergic rhinitis] 04-04-2024 Chronic Other upper respiratory disease (4 sources) Nasal obstruction; Translations: [Other specified disorders of nose and nasal sinuses] 05-16-2024 Episodic Pulmonary heart disease (1 source) Pulmonary hypertension, unspecified; Translations: [PULMONARY HYPERTENSION UNSPECIFIED] Onset: 01-28-20 Chronic Residual codes; unclassified (20 sources) Obstructive sleep apnea syndrome; Translations: [Obstructive sleep apnea (adult) (pediatric)] Onset: 03-12-2011-03-2021 Chronic Residual codes; unclassified (1 source) Sleep apnea, unspecified; Translations: [SLEEP APNEA UNSPECIFIED] Onset: 01-28-20 Chronic Residual codes; unclassified (10 sources) Transfusion of blood product refused for methodist reason; Translations: [Procedure and treatment not carried [...] DISEASE STG 3 UNSP] Onset: 05-20-19 Unclassified (11 sources) Patient has spine surgery Onset: 02-19-2002-18-2023 Unclassified (8 sources) Preprocedural examination done 03-01-2024 Unclassified (1 source) History of cervical spine fusion 03-16-2024 Urinary tract infections (1 source) Acute cystitis; Translations: [Acute cystitis without hematuria] 10-19-2024 Episodic Viral infection (1 source) COVID-19; Translations: [COVID-19] Onset: 01-09-20 Past or Other Problems Problem Classification Problem Date Documented Da te Episodic/Chronic Abdominal hernia (20 sources) Paraesophageal hernia; 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] Onset: 10-06-2021 Resolved: 10-06-2021 Episodic Chronic kidney disease (9 sources) Chronic kidney disease; Translations: [Chronic kidney disease, stage 3 unspecified] Onset: 06-02-2021 Resolved: 11-30-2021 Deficiency and other anemia (10 sources) Anemia, unspecified; Translations: [Anemia, unspecified] Onset: 01-27-2022 Episodic Diabetes mellitus without complication (1 source) Other abnormal glucose; Translations: [OTHER ABNORMAL GLUCOSE] Onset: 01-27-2022 Episodic Fluid and electrolyte disorders (20 sources) Hypo-osmolality and hyponatremia; Translations: [Hypokalemia] Onset: 06-02-2021 Resolved: 11-30-2021 Episodic Heart valve disorders (20 sources) Heart murmur; Translations: [Cardiac murmur, unspecified] Onset: 11-03-2021 11-03-2021 Episodic Nonspecific chest pain (20 sources) Chest pain, unspecified; Translations: [Chest pain] Onset: 01-07-2017 05-11-2024 Episodic Other aftercare (1 source) ferry terminal agent (current) use of aspirin; Translations: [JAIL (CURRENT) USE OF ASPIRIN] Onset: 01-12-2017 Episodic Other connective tissue disease (1 source) Abnormal posture; Translations: [ABNORMAL POSTURE] Onset: 01-27-2022 Episodic Other connective tissue disease (20 sources) History of cervical spine fusion; Translations: [Arthrodesis status] Onset: 06-16-2023 03-23-2023 Episodic Other connective tissue disease (6 sources) Arthrodesis status; Translations: [Arthrodesis status] Onset: 03-21-2023 Episodic Other gastrointestinal disorders (2 sources) Drug induced constipation; Translations: [Drug induced constipation] Onset: 03-21-2023 Episodic Other gastrointestinal disorders (2 sources) Full incontinence of feces; Translations: [Full incontinence of feces] Onset: 03-08-2024 Episodic Other lower respiratory disease (1 source) Shortness of breath; Translations: [SHORTNESS OF BREATH] Onset: 01-12-2017 Episodic Other lower respiratory disease (20 sources) Dyspnea; Translations: [Dyspnea, unspecified] Onset: 01-07-2017 05-11-2024 Episodic Other nervous system disorders (20 sources) [...] [Refusal of blood transfusions as patient is [employer]] Onset: 11-03-2021 Episodic Spondylosis; intervertebral disc disorders; [...] Test Name Value Interpretation Reference Range Facility C Urineon 10-19-2024 C Urine Urine Culture ordere d as a result of parameters set on specific urine dip and urine microsopic results. >100,000 cfu/ml Enterococcus faecalis ORGANISM [employer] SUSCEPTIBILITY ORGANISM ID: 1 ANTIBIOTIC INTERPRETATION LULA STATUS ORGANISM [facility] Amox/Cla <=4/2 Verified Amp S <=2 Verified Amp/Sul <=8/4 Verified Cefaz 16 Verified Cipro S <=1 Verified Clinda >2 Verified Eryth >4 Verified Gent >8 Verified Gent-Syn R >500 Verified Levo S <=1 Verified Linez I 4 Verified Nitro S <=32 Verified Ox >2 Verified Pen S 2 Verified Rif S <=1 Verified Tetra R >8 Verified Tri/Sulf <=0.5/9.5 Verified Vanc S 1 Verified [facility] Comment on above: Performed By: #### 1 [id number] #### [facility] (DEFAULT) [address] [place] [address] Progress Note - Nurseon 10-07 Progress Note - Nurse chart reviewed per Dr Garvin, anesthesia, and no new orders received [Electronically Signed on: 10/19/2024 11:51 EDT] Griselda Son RN [Verified on: 10/19/2024 11:51 EDT] Griselda Son RN [facility] Progress Note - Nurse Call made to Dr. Savita beckham office, spoke with Nella. Informed of urine results being faxed. States she received them and will address it. [Electronically Signed on: 10/19/2024 10:13 EDT] Garima Clements RN [Verified on: 10/19/2024 10:13 EDT] Garima Clements RN [facility] Progress Note - Nurse U/A results faxed to Aria's office ([place]) today. [Electronically Signed on: 10/19/2024 07:46 EDT] Sharon Anne RN [Verified on: 10/19/2024 07:46 EDT] Sharon Anne RN [facility] Provider Orderson 10-18-2024 Provider Orders [id number] [facility] .Auto Diff 1on 10-17-2024 Auto Davidson % 8 % Normal 05-20 [facility] Comment on above: Performed By: #### 1 [id number], [id number], [id number] #### [facility] (DEFAULT) [address] [place] [address] Baso Abs# 0.1 x10 Normal 0.0-0.2 [facility] Comment on above: Performed By: #### 1 [id number], [id number], [id number] #### [facility] (DEFAULT) [address] [place] [address] 36480 Basophils/100 WBC (Bld) 1.3 % Normal 0.2-2.0 [facility] Comment on above: Performed By: #### 1 [id number], [id number], [id number] #### [facility] (DEFAULT) [address] [place], [place] [id number] Eos Abs# 0.2 x10 Normal 0.0-0.4 [facility] Comment on above: Performed By: #### 1 [id number], [id number], [id number] #### [facility] (DEFAULT) [address] [place] [address] 43294 Eosinophils/100 WBC (Bld) 2.7 % Normal 0.9-4.0 [facility] Comment on above: Performed By: #### 1 [id number], [id number], [id number] #### [facility] (DEFAULT) [address] [place] [address] 73476 Lymph Abs# 1.8 x10 Normal 1.3-2.9 [facility] Comment on above: Performed By: #### 1 [id number], [id number], [id number] #### [facility] (DEFAULT) [address] [place] [address] 56420 Lymphocytes/100 WBC (Bld) 20 % Normal 14-48 [facility] Comment on above: Performed By: #### 1 [id number], [id number], [id number] #### [facility] (DEFAULT) [address] [place] [address] 89383 Davidson Abs# 0.7 x10 Normal 0.0-0.8 [facility] Comment on above: Performed By: #### 1 [id number], [id number], [id number] #### [facility] (DEFAULT) [address] [place] [address] 45945 Neut Abs# 5.8 x10 Normal 1.5-9.2 [facility] Comment on above: Performed By: #### 1 [id number], [id number], [id number] #### [facility] (DEFAULT) [address] [place] [address] 96620 Neutrophils/100 WBC (Bld) 68 % Normal 44-88 [facility] Comment on above: Performed By: #### 1 [id number], [id number], [id number] #### [facility] (DEFAULT) [address] [place] [address] 51020 BMP Standardon 10-17-2024 eGFR Non AA 49 mL/min/1.73m2 Invalid Interpretation Code [facility] Comment on above: Performed By: #### 1 [id number], [id number], [id number] #### [facility] (DEFAULT) [address] [place] [address] 49084 eGFR AA 60 mL/min/1.73m2 Invalid Interpretation Code [facility] Comment on above: Performed By: #### 1 [id number], [id number], [id number] #### [facility] (DEFAULT) [address] [place] [address] 56200 Anion gap [Moles/Vol] 13.0 mmol/L Normal 5.0-19.0 [facility] Comment on above: Performed By: #### 1 [id number], [id number], [id number] #### [facility] (DEFAULT) [address] [place] [address] 95833 Calcium [Mass/Vol] 9.5 mg/dL Normal 8.9-10.3 [facility] Comment on above: Performed By: #### 1 [id number], [id number], [id number] #### [facility] (DEFAULT) [address] [place] [address] 33836 Chloride [Moles/Vol] 98 mmol/L Low 101-111 [facility] Comment on above: Performed By: #### 1 [id number], [id number], [id number] #### [facility] (DEFAULT) [address] [place] [address] 19298 CO2 [Moles/Vol] 27 mmol/L Normal 21-32 [facility] Comment on above: Performed By: #### 1 [id number], [id number], [id number] #### [facility] (DEFAULT) [address] [place] [address] 28571 Creatinine [Mass/Vol] 1.09 mg/dL Normal 0.60-1.30 [facility] Comment on above: Performed By: #### 1 [id number], [id number], [id number] #### [facility] (DEFAULT) [address] [place] [address] 87817 Glucose [Mass/Vol] 112.0 mg/dL Normal 74.0-118.0 [facility] Comment on above: Performed By: #### 1 [id number], [id number], [id number] #### [facility] (DEFAULT) [address] [place] [address] Osmolality 273 mOsm/L Invalid Interpretation Code [facility] Comment on above: Performed By: #### 1 [id number], [id number], [id number] #### [facility] (DEFAULT) [address] [place] [address] 81431 Potassium [Moles/Vol] 4.0 mmol/L Normal 3.6-5.1 [facility] Comment on above: Performed By: #### 1 [id number], [id number], [id number] #### [facility] (DEFAULT) [address] [place] [address] Sodium [Moles/Vol] 134.0 mmol/L Low 136.0-144 . 0 [facility] Comment on above: Performed By: #### 1 [id number], [id number], [id number] #### [facility] (DEFAULT) [address] [place] [address] Urea nitrogen [Mass/Vol] 23 mg/dL Normal 8-26 [facility] Comment on above: Performed By: #### 1 [id number], [id number], [id number] #### [facility] (DEFAULT) [address] [place] [address] Urea nitrogen/Creatinine [Mass ratio] 21.1 mg/mg High 4.6-16.2 [facility] Comment on above: Performed By: #### 1 [id number], [id number], 5276807 #### [facility] (DEFAULT) [address] [place] [address] CBC w/ Auto Diffon 5 Erythrocyte distribution width (RBC) [Ratio] 13.7 % Normal 11.5-15.0 [facility] Comment on above: Performed By: #### 1 [id number], [id number], 4386020 #### [facility] (DEFAULT) [address] [place] [address] Hematocrit (Bld) [Volume fraction] 37.6 % Normal 33.7-40.4 [facility] Comment on above: Performed By: #### 1 [id number], [id number], [id number] #### [facility] (DEFAULT) [address] [place] [address] Hemoglobin (Bld) [Mass/Vol] 12.8 g/dL Normal 11.3-15.9 [facility] Comment on above: Performed By: #### 1 [id number], [id number], 2886475 #### [facility] (DEFAULT) [address] [place] [address] Man Diff? Auto Invalid Interpretation Code [facility] Comment on above: Performed By: #### 1 [id number], [id number], [id number] #### [facility] (DEFAULT) [address] [place] [address] MCH (RBC) [Entitic mass] 30 pg Normal 24-34 [facility] Comment on above: Performed By: #### 1 [id number], [id number], [id number] #### [facility] (DEFAULT) [address] [place] [address] 30467 MCHC (RBC) [Mass/Vol] 34 g/dL Normal 26-37 [facility] Comment on above: Performed By: #### 1 [id number], [id number], [id number] #### [facility] (DEFAULT) [address] [place] [address] MCV (RBC) [Entitic vol] 89 fL Normal 81-100 [facility] Comment on above: Performed By: #### 1 [id number], [id number], 6896222 #### [facility] (DEFAULT) [address] [place] [address] 42948 Platelet 373 x10 Normal 138-427 [facility] Comment on above: Performed By: #### 1 [id number], [id number], [id number] #### [facility] (DEFAULT) [address] [place] [address] 42033 Platelet mean volume (Bld) [Entitic vol] 7.0 fL Normal 6.3-10.2 [facility] Comment on above: Performed By: #### 1 [id number], 48035010, 9259048 #### [facility] (DEFAULT) [address] [place] [address] RBC 4.21 x10 Normal 3.70-5.30 [facility] Comment on above: Performed By: #### 1 [id number], [id number], 8714549 #### [facility] (DEFAULT) [address] [place] [address] 72113 WBC 8.6 x10 Normal 3.5-10.5 [facility] Comment on above: Performed By: #### 1 [id number], [id number], 8037708 #### [facility] (DEFAULT) [address] [place] [address] 87406 UA Bemsu8uf 10-17-2024 UA Bacteria None [facility] Comment on above: Order Comment: Urina lysis Microscopic order added on by [employer] Rules system. Performed By: #### 1 [id number], [id number], [id number] #### [facility] (DEFAULT) [address] [place] [address] UA RBC 0-2 [facility] Comment on above: Order Comment: Urina lysis Microscopic order added on by [employer] Rules system. Performed By: #### 1 [id number], [id number], [id number] #### [facility] (DEFAULT) [address] [place] [address] UA Squam Epi Few [facility] Comment on above: Order Comment: Urina lysis Microscopic order added on by [employer] Rules system. Performed By: #### 1 [id number], [id number], [id number] #### [facility] (DEFAULT) [address] [place] [address] 14845 UA WBC 3-5 [facility] Comment on above: Order Comment: Urina lysis Microscopic order added on by [employer] Rules system. Performed By: #### 1 [id number], [id number], [id number] #### [facility] (DEFAULT) [address] [place] [address] 85261 UA w Culture if Ind Standard on 10-17-2024 Breakpoint UA [facility] Comment on above: Performed By: #### 1 [id number], [id number], 85715102 #### [facility] (DEFAULT) [address] [place] [address] 51984 Color (U) Yellow Normal [facility] Comment on above: Performed By: #### 1 [id number], [id number], 96033218 #### [facility] (DEFAULT) [address] [place] [address] 79250 Culture? Indicated Invalid Interpretation Code [facility] Comment on above: Result Comment: Resu lt created by rule GL_MAGR_ADD_UA_CULT Result created by rule GL_MAGR_ADD_UA_CULT Result created by rule GL_MAGR_ADD_UA_CULT1 Result created by rule GL_MAGR_ADD_UA_CULT Performed By: #### 1 [id number], [id number], [id number] #### [facility] (DEFAULT) [address] [place] [address] 98976 Glucose (U) [Mass/Vol] Negative Normal [facility] Comment on above: Performed By: #### 1 [id number], [id number], 48968045 #### [facility] (DEFAULT) [address] [place] [address] 95889 Ketones Ql (U) Negative Normal [facility] Comment on above: Performed By: #### 1 [id number], [id number], 76020696 #### [facility] (DEFAULT) [address] [place] [address] 84950 Micro? Indicated Invalid Interpretation Code [facility] Comment on above: Result Comment: Resu lt created by rule GL_MAGR_ADD_UA_MICRO Performed By: #### 1 [id number], [id number], [id number] #### [facility] (DEFAULT) [address] [place] [address] 60236 UA Bilirubin Negative Normal [facility] Comment on above: Performed By: #### 1 [id number], 6011873, 96847586 #### [facility] (DEFAULT) [address] [place] [address] 63263 UA Blood Negative Normal NEGATIVE [facility] Comment on above: Performed By: #### 1 [id number], 9241746, 33176217 #### [facility] (DEFAULT) [address] [place] [address] 61041 UA Clarity CLEAR Normal CLEAR [facility] Comment on above: Performed By: #### 1 [id number], [id number], 93930259 #### [facility] (DEFAULT) [address] [place] [address] 59831 UA Leuk Est SMALL Abnormal NEGATIVE [facility] Comment on above: Performed By: #### 1 [id number], [id number], 53342924 #### [facility] (DEFAULT) [address] [place] [address] 03733 UA Nitrite Negative Normal NEGATIVE [facility] Comment on above: Performed By: #### 1 [id number], 9891264, 80487114 #### [facility] (DEFAULT) [address] [place] [address] 48664 UA pH 7.0 Normal 5-8 [facility] Comment on above: Performed By: #### 1 [id number], 5590815, [id number] #### [facility] (DEFAULT) [address] [place] [address] 25060 UA Protein Negative Normal NEGATIVE [facility] Comment on above: Performed By: #### 1 [id number], [id number], 75806351 #### [facility] (DEFAULT) [address] [place] [address] 30161 UA Spec Grav 1.010 Normal 1.001-1.[address] [place] [address] Comment on above: Performed By: #### 1 [id number], [id number], 75797384 #### [facility] (DEFAULT) [address] [place] [address] 41304 UA Urobilinogen 0.2 mg/dL Normal 0.2-1.0 [facility] Comment on above: Performed By: #### 1 [id number], 7354703, 98715763 #### [facility] (DEFAULT) [address] [place] [address] 00253 Urine Source Clean Catch Normal [facility] Comment on above: Performed By: #### 1 [id number], 5672263, 35659390 #### [facility] (DEFAULT) [address] [place] [address] Appearance of UrineOrdered B y: Rush Knapp on 07-16-2024 Appearance (U) Urine appearance Clear [facility] Bacteria [Presence] in Urine by AutomatedOrdered By: Rush Knapp on 07-16-2024 Bacteria Auto Ql (U) Bacteria [Presence] in Urine by Automated None Seen [facility] Basic Metabolic Panelon 07-07 Anion gap [Moles/Vol] 8.1 mmol/L Normal 6.0-15.0 [facility] Comment on above: Performed By: #### B MP #### [address] Calcium [Mass/Vol] 9.4 mg/dL Normal 8.6-10.3 [facility] Comment on above: Result Comment: PERF ORMED BY: [place] [address] PATHOLOGIST VICE PRESIDENT OF ENGINEERING YUSEF MEJIA M.D. Performed By: #### B MP #### [place] [address] [place] Chloride [Moles/Vol] 102 mmol/L Normal 98-107 [facility] Comment on above: Performed By: #### B MP #### [place] [address] [place] CO2 [Moles/Vol] 29.5 mmol/L Normal 21.0-31.0 [facility] Comment on above: Performed By: #### B MP #### [place] [address] [place] Creatinine [Mass/Vol] 0.95 mg/dL Normal 0.60-1.20 [facility] Comment on above: Performed By: #### B MP #### [place] [address] [place] GFR/1.73 sq M.predicted MDRD (S/P/Bld) [Vol rate/Area] mL/min/{1.73_m2} Normal [facility] Comment on above: Performed By: #### B MP #### [address] Glucose [Mass/Vol] 121 mg/dL High 70-100 [facility] Comment on above: Result Comment: [place] Glucose Reference Range is dependent on time and content of last meal. Glucose of more than 200 mg/dL in a nonstressed, ambulatory subject supports the diagnosis of Diabetes Mellitus. ADA recommended reference range Performed By: #### B MP #### [address] Potassium [Moles/Vol] 3.6 mmol/L Normal 3.5-5.1 [facility] Comment on above: Performed By: #### B MP #### [address] Sodium [Moles/Vol] 136 mmol/L Normal 136-145 [facility] Comment on above: Performed By: #### B MP #### [address] Urea nitrogen [Mass/Vol] 19 mg/dL Normal 7-25 [facility] Comment on above: Performed By: #### B MP #### [address] Basophils Auto (Bld) [#/Vol] Ordered By: Rush Knapp on 07-16-2024 Basophils (Bld) [#/Vol] Automated basophil count 0.0-0.2 [facility] Basophils/100 WBC Auto (Bld) Ordered By: Rush Knapp on 07-16-2024 Basophils/100 WBC (Bld) Automated basophil % . [facility] Bilirubin Test strip Ql (U)O rdered By: Rush Knapp on 07-16-2024 Bilirubin Ql (U) Bilirubin.total [Pre sence] in Urine by Test strip Negative [facility] Calcium [Mass/volume] in Ser um or PlasmaOrdered By: Rush Knapp on 07-16-2024 Calcium [Mass/Vol] Calcium [Mass/volume ] in Serum or Plasma 8.6-10.3 [facility] Carbon dioxide, total [Moles /volume] in Serum or PlasmaOrdered By: Rush Knapp on 07-16-2024 CO2 [Moles/Vol] Carbon dioxide, tota l [Moles/volume] in Serum or Plasma 21.0-31.0 [facility] Chloride [Moles/volume] in S madhav or PlasmaOrdered By: Rush Knapp on 07-16-2024 Chloride [Moles/Vol] Chloride [Moles/vol ume] in Serum or Plasma 98-107 [facility] Color Auto (U)Ordered By: Marcus Knapp on 07-16-2024 Color (U) Color of Urine by Auto [facility] Blood Count Auto Di ffon 07-16-2024 Basophils (Bld) [#/Vol] 0.1 10*3/uL Normal 0.0-0.2 [facility] Comment on above: Result Comment: PERF ORMED BY: [place] [address] PATHOLOGIST VICE PRESIDENT OF ENGINEERING YUSEF MEJIA M.D. Performed By: #### C BC #### [address] Basophils/100 WBC (Bld) 1.5 % Normal . [facility] Comment on above: Performed By: #### C BC #### [address] Eosinophils (Bld) [#/Vol] 0.2 10*3/uL Normal 0.0-0.45 [facility] Comment on above: Performed By: #### C BC #### [address] Eosinophils/100 WBC (Bld) 3.3 % Normal . [facility] Comment on above: Performed By: #### C BC #### [address] Erythrocyte distribution width (RBC) [Ratio] 13.3 % Normal 11.9-15.3 [facility] Comment on above: Performed By: #### C BC #### [place] [address] [place] Hematocrit (Bld) [Volume fraction] 34.5 % Normal 34.0-46.4 [facility] Comment on above: Performed By: #### C BC #### [address] Hemoglobin (Bld) [Mass/Vol] 11.7 g/dL Low 11.8-15.4 [facility] Comment on above: Performed By: #### C BC #### [address] Lymphocytes (Bld) [#/Vol] 1.3 10*3/uL Normal 1.00-4.8 [facility] Comment on above: Performed By: #### C BC #### [address] Lymphocytes/100 WBC (Bld) 20.5 % Normal . [facility] Comment on above: Performed By: #### C BC #### [address] MCH (RBC) [Entitic mass] 30.3 pg Normal 24.7-34.3 [facility] Comment on above: Performed By: #### C BC #### [address] MCV (RBC) [Entitic vol] 89.5 fL Normal 80-100 [facility] Comment on above: Performed By: #### C BC #### [address] Mean Corpuscular HGB Conc 33.8 g/dL Normal 32.0-35.0 [facility] Comment on above: Performed By: #### C BC #### [address] Monocytes (Bld) [#/Vol] 0.6 10*3/uL Normal 0.0-0.8 [facility] Comment on above: Performed By: #### C BC #### [address] Monocytes/100 WBC (Bld) 10.1 % Normal . [facility] Comment on above: Performed By: #### C BC #### [place] [address] [place] Neutrophils (Bld) [#/Vol] 4.1 10*3/uL Normal 1.8-7.7 [facility] Comment on above: Performed By: #### C BC #### [address] Neutrophils/100 WBC (Bld) 64.6 % Normal . [facility] Comment on above: Performed By: #### C BC #### [address] NRBC% 0.1 /100{WBC} Normal 0-0.5 [facility] Comment on above: Performed By: #### C BC #### [address] Platelet mean volume (Bld) [Entitic vol] 7.3 fL Normal 6.3-10.7 [facility] Comment on above: Performed By: #### C BC #### [place] [address] [place] Platelets (Bld) [#/Vol] 338 10*3/uL Normal 150-450 [facility] Comment on above: Performed By: #### C BC #### [address] RBC (Bld) [#/Vol] 3.85 10*6/uL Normal 3.60-5.00 [facility] Comment on above: Performed By: #### C BC #### [address] WBC (Bld) [#/Vol] 6.4 10*3/uL Normal 3.8-11.6 [facility] Comment on above: Performed By: #### C BC #### [address] Creatinine [Mass/volume] in Serum or PlasmaOrdered By: Rush Knapp on 07-16-2024 Creatinine [Mass/Vol] Creatinine [Mass/v olume] in Serum or Plasma 0.60-1.20 [facility] Dipstick and Microscopicon 0 07-16-2024 Appearance (U) Clear Normal Clear [facility] Comment on above: Order Comment: Comme nt do urine C S if indicated by + UA Name Collection Type:: Clean-Voided Midstream Performed By: #### A DDONUAPLUS, CUU #### [address] Bacteria,Urine None Seen Normal None Seen [facility] Comment on above: Order Comment: Comme nt do urine C S if indicated by + UA Name Collection Type:: Clean-Voided Midstream Performed By: #### A DDONUAPLUS, CUU #### [place] [address] [place] Bilirubin,Urine Negative Normal Negative [facility] Comment on above: Order Comment: Comme nt do urine C S if indicated by + UA Name Collection Type:: Clean-Voided Midstream Performed By: #### A DDONUAPLUS, CUU #### [address] Color (U) Yellow Normal Yellow [facility] Comment on above: Order Comment: Comme nt do urine C S if indicated by + UA Name Collection Type:: Clean-Voided Midstream Performed By: #### A DDONUAPLUS, CUU #### [address] Glucose Ql (U) Normal Normal Normal [facility] Comment on above: Order Comment: Comme nt do urine C S if indicated by + UA Name Collection Type:: Clean-Voided Midstream Performed By: #### A DDONUAPLUS, CUU #### [place] [address] [place] Hyaline Casts,Urine 0-8 Normal 0-8 [facility] Comment on above: Order Comment: Comme nt do urine C S if indicated by + UA Name Collection Type:: Clean-Voided Midstream Performed By: #### A DDONUAPLUS, CUU #### [place] [address] [place] Ketones Ql (U) Negative Normal Negative [facility] Comment on above: Order Comment: Comme nt do urine C S if indicated by + UA Name Collection Type:: Clean-Voided Midstream Performed By: #### A DDONUAPLUS, CUU #### [address] Leukocyte esterase Test strip Ql (U) 2+ High Negative [facility] Comment on above: Order Comment: Comme nt do urine C S if indicated by + UA Name Collection Type:: Clean-Voided Midstream Performed By: #### A DDONUAPLUS, CUU #### [place] [address] [place] Mucus,Urine Rare Normal [facility] Comment on above: Order Comment: Comme nt do urine C S if indicated by + UA Name Collection Type:: Clean-Voided Midstream Result Comment: PERF ORMED BY: [place] [address] PATHOLOGIST VICE PRESIDENT OF ENGINEERING YUSEF MEJIA M.D. Performed By: #### A DDONUAPLUS, CUU #### [place] [address] [place] Nitrite,Urine Negative Normal Negative [facility] Comment on above: Order Comment: Comme nt do urine C S if indicated by + UA Name Collection Type:: Clean-Voided Midstream Performed By: #### A DDONUAPLUS, CUU #### [place] [address] [place] Occult Blood,Urine Negative Normal Negative [facility] Comment on above: Order Comment: Comme nt do urine C S if indicated by + UA Name Collection Type:: Clean-Voided Midstream Result Comment: PERF ORMED BY: [place] [address] PATHOLOGIST VICE PRESIDENT OF ENGINEERING YUSEF MEJIA M.D. Performed By: #### A DDONUAPLUS, CUU #### [place] [address] [place] pH (U) 6.5 [pH] Normal 5.0-9.0 [facility] Comment on above: Order Comment: Comme nt do urine C S if indicated by + UA Name Collection Type:: Clean-Voided Midstream Performed By: #### A DDONUAPLUS, CUU #### [place] [address] [place] Protein,Urine Trace High Negative [facility] [facility] Comment on above: Order Comment: Comme nt do urine C S if indicated by + UA Name Collection Type:: Clean-Voided Midstream Performed By: #### A DDONUAPLUS, CUU #### [place] [address] [place] RBC,Urine 1-2 Normal 0-4 [facility] Comment on above: Order Comment: Comme nt do urine C S if indicated by + UA Name Collection Type:: Clean-Voided Midstream Performed By: #### A DDONUAPLUS, CUU #### [place] [address] [place] Specificy [place],Urine 1.024 Normal 1.001-1.03 0 [facility] Comment on above: Order Comment: Comme nt do urine C S if indicated by + UA Name Collection Type:: Clean-Voided Midstream Performed By: #### A DDONUAPLUS, CUU #### [place] [address] [place] Squamous Epithelial Cell,Urine 5-9 High 0-2 [facility] Comment on above: Order Comment: Comme nt do urine C S if indicated by + UA Name Collection Type:: Clean-Voided Midstream Performed By: #### A DDONUAPLUS, CUU #### [place] [address] [place] Urobilinogen,Urine Normal Normal Normal [facility] Comment on above: Order Comment: Comme nt do urine C S if indicated by + UA Name Collection Type:: Clean-Voided Midstream Performed By: #### A DDONUAPLUS, CUU #### [place] [address] [place] WBC,Urine 10-19 High 0-4 [facility] Comment on above: Order Comment: Comme nt do urine C S if indicated by + UA Name Collection Type:: Clean-Voided Midstream Performed By: #### A DDWALE, KATHERYNU #### [facility] [address] [place] [address] ECG 12 lead ECGon 07-16-2024 ECG 12 lead ECG [facility] Main [place] [address] [place] [address] Electrocardiograph Report Signed Patient: Mary Goode MR#: [id number] : 1950 Acct:[id number] Age/Sex: 73 / F ADM Date: 07/16/24 Loc: Room: Type: [facility] Attending Dr: Rush Knapp Jr, DO Ordering Provider: Rush Knapp Jr, DO Date of Service: 07/16/2403/02/911 [...] No significant change was found Confirmed by Rush Morel ([id number]) on 07/16/2024 4:14:04 PM Referred By: Electronically Signed By: Rush Morel Transcribed By: MUS Signed By Rush Morel MD 07/16/24 1614 Normal [facility] Eosinophils Auto (Bld) [#/Vo l]Ordered By: Rush Knapp on 07-16-2024 Eosinophils (Bld) [#/Vol] Automated eosinophil count 0.0-0.45 [facility] Eosinophils/100 WBC Auto (Bl d)Ordered By: Rush Knapp on 07-16-2024 Eosinophils/100 WBC (Bld) Automated eosinophil % . [facility] Epithelial cells.squamous [# /area] in Urine sediment by Automated countOrdered By: Rush Knapp on 07-16-2024 Epithelial cells.squamous Auto (Urine sed) [#/Area] Epithelial cells.squamous [#/area] in Urine sediment by Automated count High 0-2 [facility] Erythrocyte distribution wid th Auto (RBC) [Ratio]Ordered By: Rush Knapp on 07-16-2024 Erythrocyte distribution width (RBC) [Ratio] Erythrocyte distribution width [Ratio] by Automated count 11.9-15.3 [facility] Erythrocytes [#/area] in Uri ne sediment by Automated countOrdered By: Rush Knapp on 07-16-2024 RBC Auto (Urine sed) [#/Area] Erythrocytes [#/area] in Urine sediment by Automated count 0-4 [facility] Glucose [Mass/volume] in Ser um or PlasmaOrdered By: Rush Knapp on 07-16-2024 Glucose [Mass/Vol] Glucose [Mass/volume ] in Serum or Plasma High 70-100 [facility] Comment on above: ADA recommended refe rence rangeRandom Glucose Reference Range is dependent on time and content of last meal. Glucose of more than 200 mg/dL in a nonstressed, ambulatory subject supports the diagnosis of Diabetes Mellitus. Glucose [Mass/volume] in Uri ne by Test stripOrdered By: Rush Knapp on 07-16-2024 Glucose Test strip (U) [Mass/Vol] Glucose [Mass/volume] in Urine by Test strip Normal [facility] Hematocrit Auto (Bld) [Volum e fraction]Ordered By: Rush Knapp on 07-16-2024 Hematocrit (Bld) [Volume fraction] Hematocrit [Volume Fraction] of Blood by Automated count 34.0-46.4 [facility] Hemoglobin Test strip Ql (U) Ordered By: Rush Knapp on 07-16-2024 Hemoglobin Ql (U) Hemoglobin [Presence ] in Urine by Test strip Negative [facility] Hemoglobin [Mass/volume] in BloodOrdered By: Rush Knapp on 07-16-2024 Hemoglobin (Bld) [Mass/Vol] Hemoglobin [Mass/volume] in Blood Low 11.8-15.4 [facility] Hyaline casts [#/area] in Ur ine sediment by Automated countOrdered By: Rush Knapp on 07-16-2024 Hyaline casts Auto (Urine sed) [#/Area] Hyaline casts [#/area] in Urine sediment by Automated count 0-8 [facility] Ketones Test strip Ql (U)Ord ered By: Rush Knapp on 07-16-2024 Ketones Ql (U) Ketones [Presence] i n Urine by Test strip Negative [facility] Leukocyte esterase [Presence ] in Urine by Test stripOrdered By: Rush Knapp on 07-16-2024 Leukocyte esterase Test strip Ql (U) Leukocyte esterase [Presence] in Urine by Test strip High Negative [facility] Leukocytes [#/area] in Urine sediment by Automated countOrdered By: Rush Knapp on 07-16-2024 WBC Auto (Urine sed) [#/Area] Leukocytes [#/area] in Urine sediment by Automated count High 0-4 [facility] Leukocytes [#/volume] correc mary for nucleated erythrocytes in Blood by Automated counOrdered By: Rush Knapp on 07-16-2024 WBC corrected for nucl RBC Auto (Bld) [#/Vol] Leukocytes [#/volume] corrected for nucleated erythrocytes in Blood by Automated coun 3.8-11.6 [facility] Lymphocytes Auto (Bld) [#/Vo l]Ordered By: Rush Knapp on 07-16-2024 Lymphocytes (Bld) [#/Vol] Lymphocytes [#/volume] in Blood by Automated count 1.00-4.8 [facility] Lymphocytes/100 WBC Auto (Bl d)Ordered By: Rush Knapp on 07-16-2024 Lymphocytes/100 WBC (Bld) Lymphocytes/100 leukocytes in Blood by Automated count . [facility] MCH Auto (RBC) [Entitic mass ]Ordered By: Rush Knapp on 07-16-2024 MCH (RBC) [Entitic mass] MCH [Entitic mass] by Automated count 24.7-34.3 [facility] MCHC Auto (RBC) [Mass/Vol]Or dered By: Rush Knapp on 07-16-2024 MCHC (RBC) [Mass/Vol] MCHC [Mass/volume] by Automated count 32.0-35.0 [facility] MCV Auto (RBC) [Entitic vol] Ordered By: Rush Knapp on 07-16-2024 MCV (RBC) [Entitic vol] MCV [Entitic volume] by Automated count 80-100 [facility] Monocytes Auto (Bld) [#/Vol] Ordered By: Rush Knapp on 07-16-2024 Monocytes (Bld) [#/Vol] Automated blood monocyte count 0.0-0.8 [facility] Monocytes/100 WBC Auto (Bld) Ordered By: Rush Knapp on 07-16-2024 Monocytes/100 WBC (Bld) Automated monocyte % . [facility] Mucus [Presence] in Urine by AutomatedOrdered By: Rush Knapp on 07-16-2024 Mucus Auto Ql (U) Mucus [Presence] in Urine by Automated [facility] Neutrophils Auto (Bld) [#/Vo l]Ordered By: Rush Knapp on 07-16-2024 Neutrophils (Bld) [#/Vol] Neutrophils [#/volume] in Blood by Automated count 1.8-7.7 [facility] Neutrophils/100 WBC Auto (Bl d)Ordered By: Rush Knapp on 07-16-2024 Neutrophils/100 WBC (Bld) Automated neutrophil % . [facility] Nitrite Test strip Ql (U)Ord ered By: Rush Knapp on 07-16-2024 Nitrite Ql (U) Nitrite [Presence] i n Urine by Test strip Negative [facility] No Panel InformationOrdered By: Rush Knapp on 07-16-2024 Estimated GFR (CKD-EPI) > 60.0 mL/Min [facility] Creatinine Clearance (Chem N/A [facility] Nucleated erythrocytes [Pres ence] in Blood by Automated countOrdered By: Rush Knapp on 07-16-2024 Nucleated RBC Auto Ql (Bld) Nucleated erythrocytes [Presence] in Blood by Automated count 0-0.5 [facility] Platelet mean volume Auto (B ld) [Entitic vol]Ordered By: Rush Knapp on 07-16-2024 Platelet mean volume (Bld) [Entitic vol] Platelet mean volume [Entitic volume] in Blood by Automated count 6.3-10.7 [facility] Platelets Auto (Bld) [#/Vol] Ordered By: Rush Knapp on 07-16-2024 Platelets (Bld) [#/Vol] Platelets [#/volume] in Blood by Automated count 150-450 [facility] Potassium [Moles/volume] in Serum or PlasmaOrdered By: Rush Knapp on 07-16-2024 Potassium [Moles/Vol] Potassium [Moles/v olume] in Serum or Plasma 3.5-5.1 [facility] Protein Test strip (U) [Mass /Vol]Ordered By: Rush Knapp on 07-16-2024 Protein (U) [Mass/Vol] Protein [Mass/volume] in Urine by Test strip High Negative [facility] RBC Auto (Bld) [#/Vol]Ordere d By: Rush Knapp on 07-16-2024 RBC (Bld) [#/Vol] Erythrocytes [#/volu me] in Blood by Automated count 3.60-5.00 [facility] Serum or plasma anion gap de terminationOrdered By: Rush Knapp on 07-16-2024 Anion gap [Moles/Vol] Serum or plasma an ion gap determination 6.0-15.0 [facility] Sodium [Moles/volume] in Ser um or PlasmaOrdered By: Rush Knapp on 07-16-2024 Sodium [Moles/Vol] Sodium [Moles/volume ] in Serum or Plasma 136-145 [facility] Specific gravity Test strip (U) [Rel density]Ordered By: Rush Knapp on 07-16-2024 Specific gravity (U) [Rel density] Specific gravity of Urine by Test strip 1.001-1.03 0 [facility] Urea nitrogen [Mass/volume] in Serum or PlasmaOrdered By: Rush Knapp on 07-16-2024 Urea nitrogen [Mass/Vol] Urea nitrogen [Mass/volume] in Serum or Plasma 7-25 [facility] Urine Cultureon 07-16-2024 Bacteria identified Cx Nom (U) No Growth 2 Days PERFORMED BY: [facility] [address] [place] [address] PATHOLOGIST VICE PRESIDENT OF ENGINEERING YUSEF MEJIA M.D. Normal [facility] Comment on above: Performed By: #### A GARFIELD, KATHERYNU #### [facility] [address] Urine cultureOrdered By: Santiago Knapp on 07-16-2024 Bacteria identified Cx Nom (U) Urine culture [facility] Urobilinogen Test strip (U) [Mass/Vol]Ordered By: Rush Knapp on 07-16-2024 Urobilinogen (U) [Mass/Vol] Urobilinogen [Mass/volume] in Urine by Test strip Normal [facility] WBC Auto (Bld) [#/Vol]Ordere d By: Rush Knapp on 07-16-2024 WBC (Bld) [#/Vol] Leukocytes [#/volume ] in Blood by Automated count 3.8-11.6 [facility] X-ray reportOrdered By: Satinder Chen on 07-16-2024 Study report [facility] [address] XRay Report Signed Patient: Mary Goode MR#: [id number] : 1950 Acct:[id number] Age/Sex: 73 / F ADM Date: 5 Loc: ICXD Room: Type: [facility] Attending Dr: Rush Knapp Jr DO Copies to: Rush Knapp Jr, DO~ Ordering Provider: Rush Knapp Jr, DO Date of Service: 07/16/24 [...] Adan Chen M.D.07/16/2024 4:21 PM Dictation Location: [place] [address] Transcribed By: [facility] 07/16/24 1621 Dictated By: Adan Chen DO 07/16/24 1619 Signed By: 07/16/24 1621 [facility] XR bonelength lower extremit yon 07-16-2024 XR bonelength lower extremity [facility] Main [address] [address] XRay Report Signed Patient: Mary Goode MR#: [id number] : 1950 Acct:[id number] Age/Sex: 73 / F ADM Date: 07/16/24 Loc: ICXD Room: Type: [facility] Attending Dr: Rush Knapp Jr DO Copies to: Rush Knapp Jr, DO Ordering Provider: Rush Knapp Jr, DO Date of Service: 07/16/24 [...] Adan Chen M.D.07/16/2024 4:21 PM Dictation Location: [place] [address] Transcribed By: [facility] 07/16/24 1621 Dictated By: Adan Chen DO 07/16/24 1619 Signed By: 07/16/24 1621 Normal [facility] pH Test strip (U)Ordered By: Rush Knapp on 07-16-2024 pH (U) pH of Urine by Test strip 5.0-9.0 [facility] Erythrocyte distribution wid th Auto (RBC) [Ratio]on 06-27-2024 Erythrocyte distribution width (RBC) [Ratio] Erythrocyte distribution width [Ratio] by Automated count 11.0-15.0 [facility] Estimated glomerular filtrat ion rate (GFR) non- Americanon 06-27-2024 GFR/1.73 sq M.predicted among non-blacks MDRD (S/P/Bld) [Vol rate/Area] Estimated glomerular filtration rate (GFR) non- Low >=60 mL/min/1.7 3m 2 [facility] Hematocrit Auto (Bld) [Volum e fraction]on 06-27-2024 Hematocrit (Bld) [Volume fraction] Hematocrit [Volume Fraction] of Blood by Automated count 36.0-48.0 [facility] Hemoglobin [Mass/volume] in Bloodon 06-27-2024 Hemoglobin (Bld) [Mass/Vol] Hemoglobin [Mass/volume] in Blood 12.0-16.0 [facility] Iron binding capacity [Mass/ volume] in Serum or Plasmaon 06-27-2024 Iron binding capacity [Mass/Vol] Iron binding capacity [Mass/volume] in Serum or Plasma 250.0-450. 0 [facility] Iron saturation [Mass Fracti on] in Serum or Plasmaon 06-27-2024 Iron saturation [Mass fraction] Iron saturation [Mass Fraction] in Serum or Plasma [facility] Laboratory - Chemistry and C hemistry - challengeon 06-27-2024 Albumin [Mass/Vol] 3.6 g/dL 3.4-5.0 [facility] Calcium [Mass/Vol] 9.6 mg/dL 8.5-10.1 [facility] Chloride [Moles/Vol] 101 mmol/L 98-107 [facility] CO2 [Moles/Vol] 28.1 mmol/L 21.0-32.0 [facility] Creatinine [Mass/Vol] 1.18 mg/dL High 0.55-1.02 [facility] Ferritin [Mass/Vol] 78.0 ng/mL 8.0-252.0 [facility] GFR/1.73 sq M.predicted MDRD (S/P/Bld) [Vol rate/Area] 55 mL/min/{1.73_m2} Low >=60 mL/min/1.7 3m 2 [facility] Glucose [Mass/Vol] 125 mg/dL High 74-106 [facility] Iron [Mass/Vol] 71.0 ug/dL 50.0-170.0 [facility] Magnesium [Mass/Vol] 1.9 mg/dL 1.8-2.4 [facility] Potassium [Moles/Vol] 4.4 mmol/L 3.5-5.1 [facility] Sodium [Moles/Vol] 139 mmol/L 136-145 [facility] Urate [Mass/Vol] 3.1 mg/dL 2.6-6.0 [facility] Urea nitrogen [Mass/Vol] 20.0 mg/dL High 7.0-18.0 [facility] Urea nitrogen/Creatinine [Mass ratio] 16.9 mg/mg [facility] Laboratory - Urinalysison Protein (U) [Mass/Vol] 29.4 mg/dL High <=11.9 [facility] Leukocytes [#/volume] correc mary for nucleated erythrocytes in Blood by Automated counon 06-27-2024 WBC corrected for nucl RBC Auto (Bld) [#/Vol] Leukocytes [#/volume] corrected for nucleated erythrocytes in Blood by Automated coun 4.0-11.0 [facility] MCH Auto (RBC) [Entitic mass ]on 06-27-2024 MCH (RBC) [Entitic mass] MCH [Entitic mass] by Automated count 26.7-34.0 [facility] MCHC Auto (RBC) [Mass/Vol]on 06-27-2024 MCHC (RBC) [Mass/Vol] MCHC [Mass/volume] by Automated count 29.9-35.2 [facility] MCV Auto (RBC) [Entitic vol] on 06-27-2024 MCV (RBC) [Entitic vol] MCV [Entitic volume] by Automated count 81.0-99.0 [facility] No Panel Informationon 06-27 25-Hydroxy Vitamin D Total 46.4 ng/mL [facility] Comment on above: <20 ng/mL Vit D defi cient20-<30 ng/mL Vit D [id number] ng/mL Vit D sufficient>100 ng/mL Potential Toxicity Parathyroid Hormone (Intact) 26 pg/mL 15-65 [facility] Comment on above: Performed at: [facility] [address] [id number] Director: Jamari Bray PhD, Phone: [phone] Phosphorus Level 3.7 mg/dL 2.6-4.7 [facility] Urine Random Creatinine 234.23 mg/dL 20.00-300. 00 [facility] Platelet mean volume Auto (B ld) [Entitic vol]on 06-27-2024 Platelet mean volume (Bld) [Entitic vol] Platelet mean volume [Entitic volume] in Blood by Automated count Low 9.5-13.5 [facility] Platelets Auto (Bld) [#/Vol] on 06-27-2024 Platelets (Bld) [#/Vol] Platelets [#/volume] in Blood by Automated count 150-450 [facility] RBC Auto (Bld) [#/Vol]on RBC (Bld) [#/Vol] Erythrocytes [#/volu me] in Blood by Automated count Low 4.20-5.40 [facility] Serum or plasma anion gap de terminationon 06-27-2024 Anion gap [Moles/Vol] Serum or plasma an ion gap determination [facility] Urine protein/creatinine rat ioon 06-27-2024 Protein/Creatinine (U) [Ratio] Urine protein/creatinine ratio [facility] No Panel Informationon 06-19 Type of biopsy: villafuerte ential Informed consent: discussed and consent obtained Informed consent comment: The risks and benefits of the biopsy were discussed. Risks include but are not limited to bleeding, infection, scarring, pain, and nerve damage. An opportunity to ask questions prior to the procedure was permitted and all questions were answered. Patient was prepped and draped in usual sterile fashion: area cleansed with alcohol. Anesthesia: the lesion was anesthetized in a standard fashion Anesthetic: 1% lidocaine w/ epinephrine 1-100,000 buffered w/ 8.4% NaHCO3 Instrument used: DermaBlade Hemostasis achieved with: electrodesiccation Outcome: patient tolerated procedure well Outcome comment: The specimen was placed in a prelabeled formalin container to be sent for pathology Post-procedure details: sterile dressing applied and wound care instructions given Post-procedure details comment: Emphasized need to contact clinic for any signs of infection, uncontrollable bleeding, or complications. Dressing type: bandage Additional details: Photo taken Amount of lidocaine used: 2.0 cc [facility] Type of biopsy: villafuerte ential Informed consent: discussed and consent obtained Informed consent comment: The risks and benefits of the biopsy were discussed. Risks include but are not limited to bleeding, infection, scarring, pain, and nerve damage. An opportunity to ask questions prior to the procedure was permitted and all questions were answered. Patient was prepped and draped in usual sterile fashion: area cleansed with alcohol. Anesthesia: the lesion was anesthetized in a standard fashion Anesthetic: 1% lidocaine w/ epinephrine 1-100,000 buffered w/ 8.4% NaHCO3 Instrument used: DermaBlade Hemostasis achieved with: electrodesiccation Outcome: patient tolerated procedure well Outcome comment: The specimen was placed in a prelabeled formalin container to be sent for pathology Post-procedure details: sterile dressing applied and wound care instructions given Post-procedure details comment: Emphasized need to contact clinic for any signs of infection, uncontrollable bleeding, or complications. Dressing type: bandage Additional details: Photo taken Amount of lidocaine used: 1.0 cc [facility] ALLERGENS W/COMP RFLX AREA 5 on 06-11-2024 CLASS DESCRIPTION Comment . [facility] Comment on above: Levels of Specific I gE Class Description of Class ----- < 0.10 0 Negative 0.10 - 0.31 0/I Equivocal/Low 0.32 - 0.55 I Low 0.56 - 1.40 II Moderate 1.41 - 3.90 III High 3.91 - 19.00 IV Very High 19.01 - 100.00 V Very High >100.00 Very High T018-RLF D PTERONYSSINUS <0.10 Class 0 kU/L [facility] Q990-KEV D FARINAE <0.10 Class 0 kU/L [facility] Q166-UDL CAT DANDER <0.10 Class 0 kU/L [facility] K862-HNO DOG DANDER <0.10 Class 0 kU/L [facility] C339-OJY MOUSE URINE <0.10 Class 0 kU/L [facility] Comment on above: Performed at: [address] [id number] [place]aver: Re Salvador MD, Phone: [phone] [id number] BERMUDA GRASS <0.10 Class 0 kU/L [facility] K978-JNM ELLIE GRASS <0.10 Class 0 kU/L [facility] O130-ADG COCKROACH, CYPRIOT <0.10 Class 0 kU/L [facility] IMMUNOGLOBULIN E, TOTAL 146 [facility] R787-BSF PENICILLIUM CHRYSOGEN <0.10 Class 0 kU/L [facility] D471-DAA CLADOSPORIUM HERBARUM <0.10 Class 0 kU/L [facility] D460-CIE ASPERGILLUS FUMIGATUS <0.10 Class 0 kU/L [facility] G082-KWO ALTERNARIA ALTERNATA <0.10 Class 0 kU/L [facility] N404-CQQ MAPLE/BOX ELDER <0.10 Class 0 kU/L [facility] M361-LEL COMMON SILVER BIRCH <0.10 Class 0 kU/L [facility] Y111-YWL CEDAR, MOUNTAIN <0.10 Class 0 kU/L [facility] A879-ZAP OAK, WHITE <0.10 Class 0 kU/L [facility] V158-OXQ ELM, MOZAMBICAN <0.10 Class 0 kU/L [facility] C686-MUA [place] <0.10 Class 0 kU/L [facility] Y980-EYX MAPLE LEAF SYCAMORE <0.10 Class 0 kU/L [facility] K765-AFZ [place] <0.10 Class 0 kU/L [facility] R521-WKU LEILANI, WHITE <0.10 Class 0 kU/L [facility] D093-TOL PECAN, HICKORY <0.10 Class 0 kU/L [facility] P202-NNG WHITE MULBERRY <0.10 Class 0 kU/L [facility] A976-HBR RAGWEED, SHORT <0.10 Class 0 kU/L [facility] K719-ZUB THISTLE, SERBIAN <0.10 Class 0 kU/L [facility] F038-AAC PIGWEED, COMMON <0.10 Class 0 kU/L [facility] R217-EXX SHEEP SORREL <0.10 Class 0 kU/L [facility] CT MAXILLOFACIAL WO IV CONTR Nick 05-21-2024 CT MAXILLOFACIAL WO IV CONTRAST EXAM: CT Maxillofacial Without Contrast: REASON FOR EXAM: Facial trauma, face swelling/red, nasal obstruction. TECHNIQUE: Spiral images through the sinuses are obtained without IV contrast. IV Contrast: None COMPARISON: None. FINDINGS: There is slight soft tissue swelling in the left face and periorbital region compared to the right. However, no fluid collection, soft tissue emphysema or radiopaque foreign body is demonstrated. There has been resection of the right medial maxillary sinus wall and OMC. There is minimal mucosal thickening in the right ethmoid sinus. Left OMC is patent. Nasal septum deviates 3 mm to the right. Nasopharynx appears symmetric. Mastoid air cells and mesotympanic cavity appear clear. Orbital structures appear intact and orbital fat is clear. A ventricular shunt catheter enters the right frontal parietal region with tip near the interventricular septum. Lateral ventricles appear symmetric and mildly prominent. IMPRESSION: 1. Mild soft tissue swelling in the left face and periorbital region. However, no fluid collection, foreign body or emphysema is apparent. Orbital structures are clear. 2. Minimal mucosal disease of the right ethmoid sinus. 3. Ventricular shunt catheter. *This report is generated using voice recognition reporting ([employer]). On occasion [employer] erroneously drops words from the report or replaces the spoken word with similar sounding words. Please call with any questions/concerns regarding this report.* Dictated and transcribed 05/21/24/dpd This report has been electronically signed and approved by the interpreting radiologist. Normal Not Available Comment on above: Order Comment: CT Si nus WO at [facility] please. FACIAL TRAUMA, FELL AND HIT LT SIDE OF FACE, SWELLING XR CERVICAL SPINE 2-3 VIEWSo n 03-16-2024 XR CERVICAL SPINE 2-3 VIEWS Interpreted By: Juan Jose Richter, STUDY: XR CERVICAL SPINE 2-3 VIEWS; ; 03/16/2024 10:38 am INDICATION: Signs/Symptoms:Assess cervical construct. ,Z98.1 Arthrodesis status COMPARISON: 10/13/2023 ACCESSION NUMBER(S): [id number] ORDERING CLINICIAN: MIREILLE ZURITA FINDINGS: Plate transfixes the cervical spine from C3 through C7. The plate is properly position and unchanged from prior examination. Prevertebral soft tissues are normal. 1-2 mm anterolisthesis C2 over C3, similar to prior examination. Remaining levels demonstrate normal alignment. Continued mild disc space height loss with anterior spurring C7-T1 unchanged. Lung apices are clear. SURVEY RESEARCH MANAGER shunt projected along the right side of the neck. IMPRESSION: Stable appearance of the cervical spine. No acute findings or radiographic change since prior examination 10/13/2023. MACRO: None Signed by: Juan Jose Richter 03/20/2024 11:46 AM Dictation workstation: [id number] [facility] MR lumbar spine wo conon MR lumbar spine wo con [facility] Main [place] [address] [place] [address] MRI Report Signed Patient: Mary Goode MR#: [id number] : 1950 Acct:[id number] Age/Sex: 73 / F ADM Date: 03/08/24 [facility]: Type: [facility] CLI Attending Dr: Imer Purcell MD Copies [...] Enamorado Jr., D.O.03/08/2024 2:37 PM Dictation Location: [facility]-22 Transcribed By: JACKIE 03/08/24 1437 Dictated By: Olayinka Enamorado Jr DO 03/08/24 1429 Signed By: 03/08/24 1437 Normal [facility] XR pre/post mri xrayon 03-08 XR pre/post mri xray [facility] [place] [address] XRay Report Signed Patient: Mary Goode MR#: [id number] : 1950 Acct:[id number] Age/Sex: 73 / F ADM Date: 03/08/24 Loc: [facility] Room: Type: [facility] Attending Dr: Imer Purcell MD Copies to: [...] scoliosis best evaluated by MRI. The patient's SURVEY RESEARCH MANAGER shunt tip projecting over the sacrum. Coil embolization right upper quadrant. XR/XR pre/post mri xray IMPRESSION: No significant change in shunt setting compared to the prior study performed earlier today. Lumbar spine demonstrates multilevel degenerative disease best evaluated by the MRI. Impression dictated by: Olayinka Enamorado Jr., D.O.03/08/2024 2:41 PM Dictation Location: [facility]-22 Transcribed By: JACKIE 03/08/24 1441 Dictated By: Olayinka Enamorado Jr, DO 03/08/24 1437 Signed By: 03/08/24 1441 Normal [facility] Pathology Request for Lab Co rpon 03-06-2024 Pathology Request for Lab [place] Normal [facility] Comment on above: Order Comment: PATHO LOGY GI SPECIMEN Result Comment: See report. Scanned copy available in EMR. PERFORMED BY: [facility] [address] [place] [address] PATHOLOGIST VICE PRESIDENT OF ENGINEERING JAYSON RON M.D. Performed By: #### P ATH TO [facility] #### [facility] [address] XR Knee - right 1 or 2 Views on 02-13-2024 Imaging Result: X-rays AP and lateral of right knee showed severe Valgus deformity with [id number] articulation to the lateral joint line. There is flattening of the articular surfaces laterally to the tibia plateau and lateral femoral condyle. There is marginal osteophytic formation and subchondral sclerosis noted laterally and the patellofemoral joint. There is no evidence of fracture or dislocation. Bony structures viewed showed appropriate ossification. [facility] Radiology Study observation (narrative) [facility] Albumin [Mass/volume] in Ser um or Plasma by Bromocresol green (BCG) dye binding methoOrdered By: Gino Davalosr on 01-19-2024 Albumin BCG dye [Mass/Vol] 4.0 g/dL 3.5-5.7 [facility] Bacteria [Presence] in Urine by AutomatedOrdered By: Gino Barbosa on 01-19-2024 Bacteria Auto Ql (U) 1+ [HPF] High None Seen [facility] Bilirubin Test strip Ql (U)O rdered By: Gnio Paco on 01-19-2024 Bilirubin Ql (U) Negative Negative [facility] Calcium [Mass/volume] in Ser um or PlasmaOrdered By: Gino Davalosr on 01-19-2024 Calcium [Mass/Vol] 9.4 mg/dL Normal 8.6-10.3 [facility] Comment on above: Performed By: #### M G, [id number], LETICIA, CUU, ADDONUAPLUS, FE and TIBC, PROCRERAT, RENAL, CBCNO ####[facility] [id number] Carbon dioxide, total [Moles /volume] in Serum or PlasmaOrdered By: Gino Barbosa on 01-19-2024 CO2 [Moles/Vol] 30.4 mmol/L Normal 21.0-31.0 [facility] Comment on above: Performed By: #### M G, [id number], LETICIA, CUU, ADDONUAPLUS, FE and TIBC, PROCRERAT, RENAL, CBCNO ####[place] [place] [address] [place] Chloride [Moles/volume] in S madhav or PlasmaOrdered By: Gino Barbosa on 01-19-2024 Chloride [Moles/Vol] 99 mmol/L Normal 98-107 [facility] Comment on above: Performed By: #### M G, [id number], LETICIA, CUU, ADDONUAPLUS, FE and TIBC, PROCRERAT, RENAL, CBCNO ####[address] Color of Urine by AutoOrdere d By: Gino Barbosa on 01-19-2024 Color (U) Light-yellow Normal Yellow [facility] Comment on above: Order Comment: Name Collection Type:: Clean-Voided Midstream Performed By: #### M G, [id number], LETICIA, CUU, ADDONUAPLUS, FE and TIBC, PROCRERAT, RENAL, CBCNO #### [facility] [address] [place] [address] [place] Creatinine [Mass/volume] in Serum or PlasmaOrdered By: Gino Barbosa on 01-19-2024 Creatinine [Mass/Vol] 1.02 mg/dL Normal 0.60-1.20 [facility] Comment on above: Performed By: #### M G, [id number], LETICIA, CUU, ADDONUAPLUS, FE and TIBC, PROCRERAT, RENAL, CBCNO ####[facility] [place] [address] [place] Creatinine [Mass/volume] in UrineOrdered By: Gino Barbosa on 01-19-2024 Creatinine (U) [Mass/Vol] 63.00 mg/dL [facility] Comment on above: No reference range e stablished Dipstick and Microscopicon 0 01-19-2024 Bacteria,Urine 1+ High None Seen [facility] Comment on above: Order Comment: Name Collection Type:: Clean-Voided Midstream Performed By: #### M G, [id number], LETICIA, CUU, ADDONUAPLUS, FE and TIBC, PROCRERAT, RENAL, CBCNO #### [facility] [address] Bilirubin,Urine Negative Normal Negative [facility] Comment on above: Order Comment: Name Collection Type:: Clean-Voided Midstream Performed By: #### M G, [id number], LETICIA, CUU, ADDONUAPLUS, FE and TIBC, PROCRERAT, RENAL, CBCNO #### [facility] [address] Glucose Ql (U) Normal Normal Normal [facility] Comment on above: Order Comment: Name Collection Type:: Clean-Voided Midstream Performed By: #### M G, [id number], LETICIA, CUU, ADDONUAPLUS, FE and TIBC, PROCRERAT, RENAL, CBCNO #### [address] Hyaline Casts,Urine None Normal 0-8 [facility] Comment on above: Order Comment: Name Collection Type:: Clean-Voided Midstream Result Comment: PERF ORMED BY: [place] [address] PATHOLOGIST VICE PRESIDENT OF ENGINEERING JAYSON RON M.D. Performed By: #### M G, [id number], LETICIA, CUU, ADDONUAPLUS, FE and TIBC, PROCRERAT, RENAL, CBCNO #### [place] [address] [place] Nitrite,Urine Negative Normal Negative [facility] Comment on above: Order Comment: Name Collection Type:: Clean-Voided Midstream Performed By: #### M G, [id number], LETICIA, CUU, ADDONUAPLUS, FE and TIBC, PROCRERAT, RENAL, CBCNO #### [address] Occult Blood,Urine Negative Normal Negative [facility] Comment on above: Order Comment: Name Collection Type:: Clean-Voided Midstream Performed By: #### M G, [id number], LETICIA, CUU, ADDONUAPLUS, FE and TIBC, PROCRERAT, RENAL, CBCNO #### [address] Protein,Urine Negative Normal Negative [facility] Comment on above: Order Comment: Name Collection Type:: Clean-Voided Midstream Performed By: #### M G, [id number], LETICIA, CUU, ADDONUAPLUS, FE and TIBC, PROCRERAT, RENAL, CBCNO #### [address] RBC,Urine 1-2 Normal 0-4 [facility] Comment on above: Order Comment: Name Collection Type:: Clean-Voided Midstream Performed By: #### M G, [id number], LETICIA, CUU, ADDONUAPLUS, FE and TIBC, PROCRERAT, RENAL, CBCNO #### [address] Specificy [place],Urine 1.018 Normal 1.001-1.03 0 [facility] Comment on above: Order Comment: Name Collection Type:: Clean-Voided Midstream Performed By: #### M G, [id number], LETICIA, CUU, ADDONUAPLUS, FE and TIBC, PROCRERAT, RENAL, CBCNO #### [address] Squamous Epithelial Cell,Urine 1-2 Normal 0-2 [facility] Comment on above: Order Comment: Name Collection Type:: Clean-Voided Midstream Performed By: #### M G, [id number], LETICIA, CUU, ADDONUAPLUS, FE and TIBC, PROCRERAT, RENAL, CBCNO #### [address] Urobilinogen,Urine Normal Normal Normal [facility] Comment on above: Order Comment: Name Collection Type:: Clean-Voided Midstream Performed By: #### M G, [id number], LETICIA, CUU, ADDONUAPLUS, FE and TIBC, PROCRERAT, RENAL, CBCNO #### [facility] [address] WBC,Urine 5-9 High 0-4 [facility] Comment on above: Order Comment: Name Collection Type:: Clean-Voided Midstream Performed By: #### M G, [id number], LETICIA, CUU, ADDONUAPLUS, FE and TIBC, PROCRERAT, RENAL, CBCNO #### [facility] [address] Epithelial cells.squamous [# /area] in Urine sediment by Automated countOrdered By: Gino Paco on 01-19-2024 Epithelial cells.squamous Auto (Urine sed) [#/Area] 1-2 [HPF] 0-2 [facility] Erythrocyte distribution wid th [Ratio] by Automated countOrdered By: Gino Paco on 01-19-2024 Erythrocyte distribution width (RBC) [Ratio] 13.0 % Normal 11.9-15.3 [facility] Comment on above: Performed By: #### M G, [id number], LETICIA, CUU, ADDONUAPLUS, FE and TIBC, PROCRERAT, RENAL, CBCNO ####[facility] [id number] Erythrocytes [#/area] in Uri ne sediment by Automated countOrdered By: Gino Paco on 01-19-2024 RBC Auto (Urine sed) [#/Area] 1-2 [HPF] 0-4 [facility] Erythrocytes [#/volume] in B lood by Automated countOrdered By: Gino Paco on 01-19-2024 RBC (Bld) [#/Vol] 3.69 10*6/uL Normal 3.60-5.00 [facility] Comment on above: Performed By: #### M G, [id number], LETICIA, CUU, ADDONUAPLUS, FE and TIBC, PROCRERAT, RENAL, CBCNO ####[facility] [place] [address] [place] Ferritin [Mass/volume] in Se rum or PlasmaOrdered By: Gino Barbosa on 01-19-2024 Ferritin [Mass/Vol] 42.5 ng/mL Normal 11.0-306.8 [facility] Comment on above: Performed By: #### M G, [id number], LETICIA, CUU, ADDONUAPLUS, FE and TIBC, PROCRERAT, RENAL, CBCNO ####[facility] [place] [address] [place] Glucose [Mass/volume] in Ser um or PlasmaOrdered By: Gino Barbosa on 01-19-2024 Glucose [Mass/Vol] 86 mg/dL Normal 70-100 [facility] Comment on above: ADA recommended refe rence rangeRandom Glucose Reference Range is dependent on time and content of last meal. Glucose of more than 200 mg/dL in a nonstressed, ambulatory subject supports the diagnosis of Diabetes Mellitus. Result Comment: [place] om Glucose Reference Range is dependent on time and content of last meal. Glucose of more than 200 mg/dL in a nonstressed, ambulatory subject supports the diagnosis of Diabetes Mellitus. ADA recommended reference range Performed By: #### M G, [id number], LETICIA, CUU, ADDONUAPLUS, FE and TIBC, PROCRERAT, RENAL, CBCNO ####[address] [place] [address] [place] Glucose [Mass/volume] in Uri ne by Test stripOrdered By: Gino Barbosa on 01-19-2024 Glucose Test strip (U) [Mass/Vol] Normal mg/dL Normal [facility] Hematocrit [Volume Fraction] of Blood by Automated countOrdered By: Gino Barbosa on 01-19-2024 Hematocrit (Bld) [Volume fraction] 33.5 % Low 34.0-46.4 [facility] Comment on above: Performed By: #### M G, [id number], LETICIA, CUU, ADDONUAPLUS, FE and TIBC, PROCRERAT, RENAL, CBCNO ####[address] Hemoglobin Test strip Ql (U) Ordered By: Gino Barbosa on 01-19-2024 Hemoglobin Ql (U) Negative Negative [facility] Hemoglobin [Mass/volume] in BloodOrdered By: Gino Barbosa on 01-19-2024 Hemoglobin (Bld) [Mass/Vol] 11.2 g/dL Low 11.8-15.4 [facility] Comment on above: Performed By: #### M G, [id number], LETICIA, CUU, ADDONUAPLUS, FE and TIBC, PROCRERAT, RENAL, CBCNO ####[address] Hemogram CBC Without Diffon 01-19-2024 Mean Corpuscular HGB Conc 33.6 g/dL Normal 32.0-35.0 [facility] Comment on above: Performed By: #### M G, [id number], LETICIA, CUU, ADDONUAPLUS, FE and TIBC, PROCRERAT, RENAL, CBCNO ####[address] WBC (Bld) [#/Vol] 9.0 10*3/uL Normal 3.8-11.6 [facility] Comment on above: Performed By: #### M G, [id number], LETICIA, CUU, ADDONUAPLUS, FE and TIBC, PROCRERAT, RENAL, CBCNO ####[address] Hyaline casts [#/area] in Ur ine sediment by Automated countOrdered By: Gino Barbosa on 01-19-2024 Hyaline casts Auto (Urine sed) [#/Area] None [LPF] 0-8 [facility] Iron [Mass/volume] in Serum or PlasmaOrdered By: Gino Barbosa on 01-19-2024 Iron [Mass/Vol] 63 ug/dL Normal 50-212 [facility] Comment on above: Performed By: #### M G, [id number], LETICIA, CUU, ADDONUAPLUS, FE and TIBC, PROCRERAT, RENAL, CBCNO ####[facility] Iron and TIBC Profileon 01-07 % Iron Saturation 19.5 % Low 20-50 [facility] Comment on above: Performed By: #### M G, [id number], LETICIA, CUU, ADDONUAPLUS, FE and TIBC, PROCRERAT, RENAL, CBCNO ####[facility] Total Iron Binding Capacity 323 ug/dL Normal 255-450 [facility] Comment on above: Performed By: #### M G, [id number], LETICIA, CUU, ADDONUAPLUS, FE and TIBC, PROCRERAT, RENAL, CBCNO ####[facility] Iron binding capacity [Mass/ volume] in Serum or PlasmaOrdered By: Gino Paco on 01-19-2024 Iron binding capacity [Mass/Vol] 323 ug/dL 255-450 [facility] Iron saturation [Mass Fracti on] in Serum or PlasmaOrdered By: Gino Paco on 01-19-2024 Iron saturation [Mass fraction] 19.5 % Low 20-50 [facility] Ketones [Presence] in Urine by Test stripOrdered By: Gino Paco on 01-19-2024 Ketones Ql (U) Negative Normal Negative [facility] Comment on above: Order Comment: Name Collection Type:: Clean-Voided Midstream Performed By: #### M G, [id number], LETICIA, CUU, ADDONUAPLUS, FE and TIBC, PROCRERAT, RENAL, CBCNO #### [facility] [address] Leukocyte esterase [Presence ] in Urine by Test stripOrdered By: Gino Barbosa on 01-19-2024 Leukocyte esterase Test strip Ql (U) 2+ High Negative [facility] Comment on above: Order Comment: Name Collection Type:: Clean-Voided Midstream Performed By: #### M G, [id number], LETICIA, CUU, ADDONUAPLUS, FE and TIBC, PROCRERAT, RENAL, CBCNO #### [facility] [address] Leukocytes [#/area] in Urine sediment by Automated countOrdered By: Gino Barbosa on 01-19-2024 WBC Auto (Urine sed) [#/Area] 5-9 [HPF] High 0-4 [facility] Leukocytes [#/volume] correc mary for nucleated erythrocytes in Blood by Automated counOrdered By: Gino Barbosa on 01-19-2024 WBC corrected for nucl RBC Auto (Bld) [#/Vol] 9.0 10*3/uL 3.8-11.6 [facility] MCH [Entitic mass] by Automa mary countOrdered By: Gino Barbosa on 01-19-2024 MCH (RBC) [Entitic mass] 30.5 pg Normal 24.7-34.3 [facility] Comment on above: Performed By: #### M G, [id number], LETICIA, CUU, ADDONUAPLUS, FE and TIBC, PROCRERAT, RENAL, CBCNO ####[facility] [id number] MCHC Auto (RBC) [Mass/Vol]Or dered By: Gino Barbosa on 01-19-2024 MCHC (RBC) [Mass/Vol] 33.6 g/dL 32.0-35.0 [facility] MCV [Entitic volume] by Auto mated countOrdered By: Gino Barbosa on 01-19-2024 MCV (RBC) [Entitic vol] 90.7 fL Normal 80-100 [facility] Comment on above: Performed By: #### M G, [id number], LETICIA, CUU, ADDONUAPLUS, FE and TIBC, PROCRERAT, RENAL, CBCNO ####[facility] [id number] [address] Magnesium [Mass/volume] in S madhav or PlasmaOrdered By: Gino Barbosa on 01-19-2024 Magnesium [Mass/Vol] 1.9 mg/dL Normal 1.9-2.7 [facility] Comment on above: Performed By: #### M G, [id number], LETICIA, CUU, ADDONUAPLUS, FE and TIBC, PROCRERAT, RENAL, CBCNO ####[address] [place] [id number] [facility] Nitrite Test strip Ql (U)Ord ered By: Gino Barbosa on 01-19-2024 Nitrite Ql (U) Negative Negative [facility] No Panel InformationOrdered By: Gino Barbosa on 01-19-2024 Estimated GFR (CKD-EPI) 58.816 mL/Min [facility] Creatinine Clearance (Chem N/A [facility] Phosphate [Mass/volume] in S madhav or PlasmaOrdered By: Gino Barbosa on 01-19-2024 Phosphate [Mass/Vol] 4.1 mg/dL Normal 2.5-4.5 [facility] Comment on above: Performed By: #### M G, [id number], LETICIA, CUU, ADDONUAPLUS, FE and TIBC, PROCRERAT, RENAL, CBCNO ####[place] [id number] [facility] Platelet mean volume [Entiti c volume] in Blood by Automated countOrdered By: Gino Barbosa on 01-19-2024 Platelet mean volume (Bld) [Entitic vol] 7.8 fL Normal 6.3-10.7 [facility] Comment on above: Result Comment: PERF ORMED BY: [facility] [address] [place] [id number] PATHOLOGIST VICE PRESIDENT OF ENGINEERING JAYSON RON M.D. Performed By: #### M G, [id number], LETICIA, CUU, ADDONUAPLUS, FE and TIBC, PROCRERAT, RENAL, CBCNO ####[place] [id number] [facility] Platelets [#/volume] in Bloo d by Automated countOrdered By: Gino Barobsa on 01-19-2024 Platelets (Bld) [#/Vol] 342 10*3/uL Normal 150-450 [facility] Comment on above: Performed By: #### M G, [id number], LETICIA, CUU, ADDONUAPLUS, FE and TIBC, PROCRERAT, RENAL, CBCNO ####[address] [place] [id number] [facility] Potassium [Moles/volume] in Serum or PlasmaOrdered By: Gino Barbosa on 01-19-2024 Potassium [Moles/Vol] 3.8 mmol/L Normal 3.5-5.1 [facility] Comment on above: Performed By: #### M G, [id number], LETICIA, CUU, ADDONUAPLUS, FE and TIBC, PROCRERAT, RENAL, CBCNO ####[address] [place] [id number] [facility] Protein Creat Ratio Ur Rando mon 01-19-2024 Creatinine, Urine (Random) 63.00 mg/dL Normal [facility] Comment on above: Result Comment: No r eference range established Performed By: #### M G, [id number], LETICIA, CUU, ADDONUAPLUS, FE and TIBC, PROCRERAT, RENAL, CBCNO ####[place] [id number] [facility] Urine Protein/Creatinine Ratio 111 mg/g{Cre} Normal 0-200 [facility] Comment on above: Result Comment: PERF ORMED BY: [facility] [address] [place] [id number] PATHOLOGIST VICE PRESIDENT OF ENGINEERING JAYSON RON M.D. Performed By: #### M G, [id number], LETICIA, CUU, ADDONUAPLUS, FE and TIBC, PROCRERAT, RENAL, CBCNO ####[place] [id number] [facility] Protein Test strip (U) [Mass /Vol]Ordered By: Gino Barbosa on 01-19-2024 Protein (U) [Mass/Vol] Negative Negative [facility] Protein [Mass/volume] in Uri neOrdered By: Gino Barbosa on 01-19-2024 Protein (U) [Mass/Vol] 7 mg/dL Normal 0-9 [facility] Comment on above: Performed By: #### M G, [id number], LETICIA, CUU, ADDONUAPLUS, FE and TIBC, PROCRERAT, RENAL, CBCNO ####[place] [address] Renal Function Panelon 01-18 Albumin [Mass/Vol] 4.0 g/dL Normal 3.5-5.7 [facility] Comment on above: Performed By: #### M G, [id number], LETICIA, CUU, ADDONUAPLUS, FE and TIBC, PROCRERAT, RENAL, CBCNO ####[place] [address] GFR/1.73 sq M.predicted MDRD (S/P/Bld) [Vol rate/Area] 58.816 mL/min/{1.73_m2} Normal [facility] Comment on above: Performed By: #### M G, [id number], LETICIA, CUU, ADDONUAPLUS, FE and TIBC, PROCRERAT, RENAL, CBCNO ####[address] Serum or plasma anion gap de terminationOrdered By: Gino Barbosa on 01-19-2024 Anion gap [Moles/Vol] 9.4 mmol/L Normal 6.0-15.0 [facility] Comment on above: Performed By: #### M G, [id number], LETICIA, CUU, ADDONUAPLUS, FE and TIBC, PROCRERAT, RENAL, CBCNO ####[address] Sodium [Moles/volume] in Ser um or PlasmaOrdered By: Gino Barbosa on 01-19-2024 Sodium [Moles/Vol] 135 mmol/L Low 136-145 [facility] Comment on above: Performed By: #### M G, [id number], LETICIA, CUU, ADDONUAPLUS, FE and TIBC, PROCRERAT, RENAL, CBCNO ####[address] [place] [address] [facility] Specific gravity Test strip (U) [Rel density]Ordered By: Gino Barbosa on 01-19-2024 Specific gravity (U) [Rel density] 1.018 1.001-1.03 0 [facility] Transferrin [Mass/volume] in Serum or PlasmaOrdered By: Gino Barbosa on 01-19-2024 Transferrin [Mass/Vol] 231 mg/dL Normal 203-362 [facility] Comment on above: Performed By: #### M G, [id number], LETICIA, CUU, ADDONUAPLUS, FE and TIBC, PROCRERAT, RENAL, CBCNO ####[place] [id number] [facility] Urea nitrogen [Mass/volume] in Serum or PlasmaOrdered By: Gino Barbosa on 01-19-2024 Urea nitrogen [Mass/Vol] 25 mg/dL Normal 7-25 [facility] Comment on above: Performed By: #### M G, [id number], LETICIA, CUU, ADDONUAPLUS, FE and TIBC, PROCRERAT, RENAL, CBCNO ####[place] [id number] [facility] Urine Cultureon 01-19-2024 Bacteria identified Cx Nom (U) 20,000 colonies/ml mixed bacterial skin contaminants 2 Days PERFORMED BY: [facility] [address] [place] [phone] PATHOLOGIST VICE PRESIDENT OF ENGINEERING JAYSON RON M.D. Normal [facility] Comment on above: Performed By: #### M G, [id number], LETICIA, CUU, ADDONUAPLUS, FE and TIBC, PROCRERAT, RENAL, CBCNO ####[place] [id number] [facility] Urine appearanceOrdered By: Gino Barbosa on 01-19-2024 Appearance (U) Clear Normal Clear [facility] Comment on above: Order Comment: Name Collection Type:: Clean-Voided Midstream Performed By: #### M G, [id number], LETICIA, CUU, ADDONUAPLUS, FE and TIBC, PROCRERAT, RENAL, CBCNO #### [facility] [address] [place] [id number] [facility] Urine culture routineOrdered By: Gino Barbosa on 01-19-2024 Bacteria identified Cx Nom (U) 2 Days [facility] Urine protein/creatinine rat ioOrdered By: Gino Barbosa on 01-19-2024 Protein/Creatinine (U) [Ratio] 111 mg/g{Cre} 0-200 [facility] Urobilinogen Test strip (U) [Mass/Vol]Ordered By: Gino Barbosa on 01-19-2024 Urobilinogen (U) [Mass/Vol] Normal mg/dL Normal [facility] Vitamin D 25 Hydroxy Totalon 01-19-2024 Vitamin D 25 Hydroxy Total 31.0 ng/mL Normal 30-100 [facility] Comment on above: Result Comment: [place] MIN D STATUS 25(OH)VITAMIN D RANGE (ng/mL) Deficient <20 Insufficient 20 to <30 Sufficient 30 to 100 Reference: Manish Merino, Gianni HOYT, et al. Evaluation,treatment, and prevention of vitamin D deficiency; an Endocrine Society clinical practice guideline. JCEM. 2010; 96(7):1911-30. PERFORMED BY: [facility] [address] [place] [address] PATHOLOGIST VICE PRESIDENT OF ENGINEERING JAYSON RON M.D. Performed By: #### M G, [id number], LETICIA, CUU, ADDONUAPLUS, FE and TIBC, PROCRERAT, RENAL, CBCNO ####[facility] [id number] [facility] Vitamin D+Metabolites [Mass/ volume] in Serum or PlasmaOrdered By: Gino Barbosa on 01-19-2024 Vitamin D+Metabolites [Mass/Vol] 31.0 ng/mL 30-100 [facility] Comment on above: VITAMIN D STATUS 25( [place])VITAMIN D RANGE (ng/mL) Deficient <20 Insufficient 20 to <30Sufficient 30 to 100Reference: Manish Merino, Gianni HOYT, et al. Evaluation,treatment, and prevention of vitamin D deficiency; an Endocrine Society clinical practice guideline. JCEM. 2010; 96(7):1911-30. pH of Urine by Test stripOrd ered By: Gino Barbosa on 01-19-2024 pH (U) 6.0 [pH] Normal 5.0-9.0 [facility] Comment on above: Order Comment: Name Collection Type:: Clean-Voided Midstream Performed By: #### M G, [id number], LETICIA, CUU, ADDONUAPLUS, FE and TIBC, PROCRERAT, RENAL, CBCNO #### [facility] [address] MM screening mammo BI w/CADo n 12-08-2023 MM screening mammo BI w/CAD [facility] [address] [place] [address] [place] [address] Mammography Report Signed Patient: Mary Goode MR#: [id number] : 1950 Acct:[id number] Age/Sex: 73 / F ADM Date: 12/08/23 Loc: [place] Room: Type: [facility] Attending Dr: Imer Purcell MD Copies to: [...] Adan Chen M.D.12/08/2023 3:58 PM Dictation Location: [facility] Transcribed By: [facility] 12/08/23 1558 Dictated By: Adan Chen DO 12/08/23 1527 Signed By: 12/08/23 1558 [facility] XR CERVICAL SPINE 2-3 VIEWSo n 10-13-2023 XR CERVICAL SPINE 2-3 VIEWS Interpreted By: Raul ePter, STUDY: XR CERVICAL SPINE 2-3 VIEWS; ; 10/13/2023 2:32 pm INDICATION: Signs/Symptoms:S/P anterior cervical fusion. COMPARISON: 06/09/2023 ACCESSION NUMBER(S): [id number] ORDERING CLINICIAN: MIREILLE ZURITA FINDINGS: C-spine, two views Anterior spinal fusion extending from C3 through C7. There is mild disc space narrowing osteophytosis at C7-T1. No fracture seen. No spondylolisthesis. IMPRESSION: Anterior spinal fusion C3-C7 with intact hardware. No malalignment MACRO: None Signed by: Raul Peter 10/14/2023 6:10 PM Dictation workstation: [id number] [facility] Comment on above: Order Comment: Uprig ht AP/Lat XR Cervical spine 2 or 3 Vie wson 06-10-2023 No hardware failure at the C3-C7 anterior fusion. Mild spondylosis at C7-T1 MACRO: None Signed by: Raul Peter 06/10/2023 6:21 PM Dictation workstation: [id number] [facility] MMODAL Interpreted By: Raul Hernandes, STUDY: XR CERVICAL SPINE 2-3 VIEWS; ; 06/09/2023 2:35 pm INDICATION: Signs/Symptoms:To assess the fusion. COMPARISON: 05/05/2023 ACCESSION NUMBER(S): [id number] ORDERING CLINICIAN: MIREILLE ZURITA FINDINGS: C-spine, two [...] assess the fusion. COMPARISON: 05/05/2023 ACCESSION NUMBER(S): [id number] ORDERING CLINICIAN: MIREILLE ZURITA FINDINGS: C-spine, two views Anterior fusion C3 through C7. The hardware is intact. The prevertebral soft tissues are within normal limits. There is no fracture or spondylolisthesis. There is mild spondylotic change at C7-T1 IMPRESSION: No hardware failure at the C3-C7 anterior fusion. Mild spondylosis at C7-T1 MACRO: None Signed by: Raul Peter 06/10/2023 6:21 PM Dictation workstation: [id number] [facility] Work Phone: XR Cervical spine 2 or 3 Vie wsOrdered By: Raul Peter on 06-10-2023 [facility] Work Phone: XR CERVICAL SPINE 2-3 VIEWSo n 06-09-2023 XR CERVICAL SPINE 2-3 VIEWS Interpreted By: Raul Peter, STUDY: XR CERVICAL SPINE 2-3 VIEWS; ; 06/09/2023 2:35 pm INDICATION: Signs/Symptoms:To assess the fusion. COMPARISON: 05/05/2023 ACCESSION NUMBER(S): [id number] ORDERING CLINICIAN: MIREILLE ZURITA FINDINGS: C-spine, two views Anterior fusion C3 through C7. The hardware is intact. The prevertebral soft tissues are within normal limits. There is no fracture or spondylolisthesis. There is mild spondylotic change at C7-T1 IMPRESSION: No hardware failure at the C3-C7 anterior fusion. Mild spondylosis at C7-T1 MACRO: None Signed by: Raul Peter 06/10/2023 6:21 PM Dictation workstation: [id number] [facility] XR Cervical spine 2 or 3 Vie wson 06-09-2023 Radiology Study observation (narrative) [facility] Work Phone: XR CERVICAL SPINE 2-3 VIEWSo n 05-05-2023 XR CERVICAL SPINE 2-3 VIEWS Interpreted By: Juan Jose Sen, STUDY: XR CERVICAL SPINE 2-3 VIEWS INDICATION: Signs/Symptoms:s/p ACDF C3 - 7 on 03/21/2023. XRAY ON OR AFTER MAY 05, 2023, for appointment 05/12/2023. COMPARISON: March 22 ACCESSION NUMBER(S): [id number] ORDERING CLINICIAN: ARASELI FAUSTIN FINDINGS: Anterior cervical fusion C3 through C7 with plate and disc space replacement. Alignment normal. Prevertebral soft tissues improving. IMPRESSION: Satisfactory appearance C3 through C7 anterior fusion. Signed by: Juan Jose Sen 05/07/2023 7:02 AM Dictation workstation: [id number] [facility] ECG 12 LeadOrdered By: Camilo Parr on 03-28-2023 Atrial Rate 63 BPM [facility] Work Phone: P [place] 51 degrees [facility] Work Phone: P Offset 183 ms [facility] Work Phone: P Onset 128 ms [facility] Work Phone: OR Interval 192 ms [facility] Work Phone: [phone] Q Onset 224 ms [facility] Work Phone: QRS Count 10 beats [facility] Work Phone: QRS Duration 84 ms [facility] Work Phone: QT Interval 406 ms [facility] Work Phone: QTC Calculation(Bazett) 415 ms [facility] Work Phone: [phone] QTC Fredericia [facility] Work Phone: [phone] R [place] 52 degrees [facility] Work Phone: T [place] 44 degrees [facility] Work Phone: T Offset 427 ms [facility] Work Phone: Ventricular Rate 63 BPM [facility] Work [facility]: [facility] Work Phone: ECG 12 Leadon 03-28-2023 Normal sinus rhythm Normal ECG No previous ECGs available Confirmed by Camilo Parr ([id number]) on 03/28/2023 9:17:27 PM Camilo Thomas MD - Normal sinus rhythm Normal ECG No previous ECGs available Confirmed by Camilo Parr ([id number]) on 03/28/2023 9:17:27 PM [facility] Work Phone: Basic metabolic 2000 panelon 03-23-2023 Anion gap [Moles/Vol] 13 mmol/L 10 - 2 0 mmol/L [facility] Calcium [Mass/Vol] 8.7 mg/dL 8.6 - 10. 3 mg/dL [facility] Chloride [Moles/Vol] 101 mmol/L 98 - 10 7 mmol/L [facility] CO2 [Moles/Vol] 26 mmol/L 21 - 32 mmol/L [facility] Creatinine [Mass/Vol] 0.90 mg/dL 0.50 - 1.05 mg/dL [facility] GFR/1.73 sq M.predicted MDRD (S/P/Bld) [Vol rate/Area] 69 mL/min/{1.73_m2} - [facility] Comment on above: Calculations of gabriela mated GFR are performed using the 2020 CKD-EPI Study Refit equation without the race variable for the IDMS-Traceable creatinine methods. https://jasn.asnjournals.org/content/early//ASN.888792 9520 Glucose [Mass/Vol] 97 mg/dL 74 - 99 mg/dL [facility] Interpretation and review of laboratory results Normal [facility] Potassium [Moles/Vol] 3.7 mmol/L 3.5 - 5.3 mmol/L [facility] Sodium [Moles/Vol] 136 mmol/L 136 - 145 mmol/L [facility] Urea nitrogen [Mass/Vol] 11 mg/dL 6 - 23 mg/dL [facility] Anion gap [Moles/Vol] 13 mmol/L Normal 10-20 [facility] Comment on above: Performed By: #### 3 4529-8 #### MADELEINE ROSE ([id number]) [facility] ([facility]) [address] [address] Calcium [Mass/Vol] 8.7 mg/dL Normal 8.6-10.3 [facility] Comment on above: Performed By: #### 3 4529-8 #### MADELEINE ROSE ([id number]) [facility] ([facility]) [address] [place] [address] Chloride [Moles/Vol] 101 mmol/L Normal 98-107 [facility] Comment on above: Performed By: #### 3 4529-8 #### MADELEINE ROSE ([id number]) [facility] ([facility]) [address] [place] [address] CO2 [Moles/Vol] 26 mmol/L Normal 21-32 [facility] Comment on above: Performed By: #### 3 4529-8 #### MADELEINE ROSE ([id number]) [facility] ([facility]) [address] [place] [address] Creatinine [Mass/Vol] 0.90 mg/dL Normal 0.50-1.05 [facility] Comment on above: Performed By: #### 3 4529-8 #### MADELEINE ROSE ([id number]) [facility] ([facility]) [address] [place] [address] GFR/1.73 sq M.predicted MDRD (S/P/Bld) [Vol rate/Area] 69 mL/min/1.73m*2 Normal >60 [facility] Comment on above: Result Comment: Calc ulations of estimated GFR are performed using the 2020 CKD-EPI Study Refit equation without the race variable for the IDMS-Traceable creatinine methods. https://jasn.asnjournals.org/content//ASN.036352 9102 Performed By: #### 3 4529-8 #### MADELEINE ROSE ([id number]) [facility] ([facility]) [address] [place] [address] Glucose [Mass/Vol] 97 mg/dL Normal 74-99 [facility] Comment on above: Performed By: #### 3 4529-8 #### MADELEINE ROSE ([id number]) [facility] ([facility]) [address] [place] [address] Potassium [Moles/Vol] 3.7 mmol/L Normal 3.5-5.3 [facility] Comment on above: Performed By: #### 3 4529-8 #### MADELEINE ROSE ([id number]) [facility] ([facility]) [address] [place] [address] Sodium [Moles/Vol] 136 mmol/L Normal 136-145 [facility] Comment on above: Performed By: #### 3 4529-8 #### MADELEINE ROSE ([id number]) [facility] ([facility]) [address] [place] [address] Urea nitrogen [Mass/Vol] 11 mg/dL Normal 6-23 [facility] Comment on above: Performed By: #### 3 4529-8 #### MADELEINE ROSE ([id number]) [facility] ([facility]) [address] [place] [address] CBC panel Auto (Bld)on 03-23 Erythrocyte distribution width (RBC) [Ratio] 13.4 % 11.5 - 14.5 % [facility] Hematocrit (Bld) [Volume fraction] 35.3 % Low 36.0 - 46.0 % [facility] Hemoglobin (Bld) [Mass/Vol] 11.4 g/dL Low 12.0 - 16.0 g/dL [facility] Interpretation and review of laboratory results Abnormal [facility] MCH (RBC) [Entitic mass] 30.4 pg 26.0 - 34.0 pg [facility] MCHC (RBC) [Mass/Vol] 32.3 g/dL 32.0 - 36.0 g/dL [facility] MCV (RBC) [Entitic vol] 94 fL 80 - 100 fL [facility] Nucleated RBC/100 WBC (Bld) [Ratio] 0.0 % [facility] Platelets (Bld) [#/Vol] 310 10*3/uL [facility] RBC (Bld) [#/Vol] 3.75 10*6/uL Low Unive [facility] WBC (Bld) [#/Vol] 9.9 10*3/uL [facility] Erythrocyte distribution width (RBC) [Ratio] 13.4 % Normal 11.5-14.5 [facility] Comment on above: Performed By: #### 3 4529-8 #### MADELEINE ROSE ([id number]) [facility] ([facility]) [address] [place] [address] Hematocrit (Bld) [Volume fraction] 35.3 % Low 36.0-46.0 [facility] Comment on above: Performed By: #### 3 4529-8 #### MADELEINE ROSE ([id number]) [facility] ([facility]) [address] [place] [address] Hemoglobin (Bld) [Mass/Vol] 11.4 g/dL Low 12.0-16.0 [facility] Comment on above: Performed By: #### 3 4529-8 #### MADELEINE ROSE ([id number]) [facility] ([facility]) [address] [place] [address] MCH (RBC) [Entitic mass] 30.4 pg Normal 26.0-34.0 [facility] Comment on above: Performed By: #### 3 4529-8 #### MADELEINE ROSE ([id number]) [facility] ([facility]) [address] [place] [address] MCHC (RBC) [Mass/Vol] 32.3 g/dL Normal 32.0-36.0 [facility] Comment on above: Performed By: #### 3 4529-8 #### MADELEINE ROSE ([id number]) [facility] ([facility]) [address] [place] [address] MCV (RBC) [Entitic vol] 94 fL Normal 80-100 [facility] Comment on above: Performed By: #### 3 4529-8 #### MADELEINE ROSE ([id number]) [facility] ([facility]) [address] [place] [address] Nucleated RBC/100 WBC (Bld) [Ratio] 0.0 /100 WBCs Normal 0.0-0.0 [facility] Comment on above: Performed By: #### 3 4529-8 #### MADELEINE ROSE ([id number]) [facility] ([facility]) [address] [place] [address] Platelets (Bld) [#/Vol] 310 x10*3/uL Normal 150-450 [facility] Comment on above: Performed By: #### 3 4529-8 #### MADELEINE ROSE ([id number]) [facility] ([facility]) [address] [place] [address] RBC (Bld) [#/Vol] 3.75 x10*6/uL Low 4.00-5.20 [facility] Comment on above: Performed By: #### 3 4529-8 #### MADELEINE ROSE ([id number]) [facility] ([facility]) [address] [place] [address] WBC (Bld) [#/Vol] 9.9 x10*3/uL Normal 4.4-11.3 [facility] Comment on above: Performed By: #### 3 4529-8 #### MADELEINE ROSE ([id number]) [facility] ([facility]) [address] [place] [address] Basic metabolic 2000 panelon 03-22-2023 Anion gap [Moles/Vol] 11 mmol/L 10 - 2 0 mmol/L [facility] Calcium [Mass/Vol] 8.8 mg/dL 8.6 - 10. 3 mg/dL [facility] Chloride [Moles/Vol] 102 mmol/L 98 - 10 7 mmol/L [facility] CO2 [Moles/Vol] 26 mmol/L 21 - 32 mmol/L [facility] Creatinine [Mass/Vol] 0.83 mg/dL 0.50 - 1.05 mg/dL [facility] GFR/1.73 sq M.predicted MDRD (S/P/Bld) [Vol rate/Area] 76 mL/min/{1.73_m2} - PINF [facility] Comment on above: Calculations of gabriela mated GFR are performed using the 2020 CKD-EPI Study Refit equation without the race variable for the IDMS-Traceable creatinine methods. https://jasn.asnjournals.org/content/early//ASN.860593 0473 Glucose [Mass/Vol] 109 mg/dL High 74 - 99 mg/dL [facility] Interpretation and review of laboratory results Abnormal [facility] Potassium [Moles/Vol] 3.9 mmol/L 3.5 - 5.3 mmol/L [facility] Sodium [Moles/Vol] 135 mmol/L Low 136 - 145 mmol/L [facility] Urea nitrogen [Mass/Vol] 11 mg/dL 6 - 23 mg/dL [facility] Anion gap [Moles/Vol] 11 mmol/L Normal 10-20 [facility] Comment on above: Performed By: #### 2 4321-2 #### MADELEINE ROSE ([id number]) [facility] ([facility]) [address] [place] [address] Calcium [Mass/Vol] 8.8 mg/dL Normal 8.6-10.3 [facility] Comment on above: Performed By: #### 2 4321-2 #### MADELEINE ROSE ([id number]) [facility] ([facility]) [address] [place] [address] Chloride [Moles/Vol] 102 mmol/L Normal 98-107 [facility] Comment on above: Performed By: #### 2 4321-2 #### MADELEINE ROSE ([id number]) [facility] ([facility]) [address] [place] [address] CO2 [Moles/Vol] 26 mmol/L Normal 21-32 [facility] Comment on above: Performed By: #### 2 4321-2 #### MADELEINE ROSE ([id number]) [facility] ([facility]) [address] [place] [address] Creatinine [Mass/Vol] 0.83 mg/dL Normal 0.50-1.05 [facility] Comment on above: Performed By: #### 2 4321-2 #### MADELEINE ROSE ([id number]) [facility] ([facility]) [address] [place] [address] GFR/1.73 sq M.predicted MDRD (S/P/Bld) [Vol rate/Area] 76 mL/min/1.73m*2 Normal >60 [facility] Comment on above: Result Comment: Calc ulations of estimated GFR are performed using the 2020 CKD-EPI Study Refit equation without the race variable for the IDMS-Traceable creatinine methods. https://jasn.asnjournals.org/content/early//ASN.522619 5549 Performed By: #### 2 432-2 #### MADELEINE ROSE ([id number]) [facility] ([facility]) [address] [place] [address] Glucose [Mass/Vol] 109 mg/dL High 74-99 [facility] Comment on above: Performed By: #### 2 4321-2 #### MADELEINE ROSE ([id number]) [facility] ([facility]) [address] [facility] [place] [address] Potassium [Moles/Vol] 3.9 mmol/L Normal 3.5-5.3 [facility] Comment on above: Performed By: #### 2 4321-2 #### MADELEINE ROSE ([id number]) [facility] ([facility]) [address] [place] [address] Sodium [Moles/Vol] 135 mmol/L Low 136-145 [facility] Comment on above: Performed By: #### 2 4321-2 #### MADELEINE ROSE ([id number]) [facility] ([facility]) [address] [place] [address] Urea nitrogen [Mass/Vol] 11 mg/dL Normal 6-23 [facility] Comment on above: Performed By: #### 2 4321-2 #### MADELEINE ROSE ([id number]) [facility] ([facility]) [address] [place] [address] CBC panel Auto (Bld)on 03-22 Erythrocyte distribution width (RBC) [Ratio] 13.5 % 11.5 - 14.5 % [facility] Hematocrit (Bld) [Volume fraction] 36.7 % 36.0 - 46.0 % [facility] Hemoglobin (Bld) [Mass/Vol] 11.6 g/dL Low 12.0 - 16.0 g/dL [facility] Interpretation and review of laboratory results Abnormal [facility] MCH (RBC) [Entitic mass] 30.2 pg 26.0 - 34.0 pg [facility] MCHC (RBC) [Mass/Vol] 31.6 g/dL Low 32.0 - 36.0 g/dL [facility] MCV (RBC) [Entitic vol] 96 fL 80 - 100 fL [facility] Nucleated RBC/100 WBC (Bld) [Ratio] 0.0 % [facility] Platelets (Bld) [#/Vol] 330 10*3/uL [facility] RBC (Bld) [#/Vol] 3.84 10*6/uL Low [facility] WBC (Bld) [#/Vol] 12.1 10*3/uL High Unive [facility] Erythrocyte distribution width (RBC) [Ratio] 13.5 % Normal 11.5-14.5 [facility] Comment on above: Performed By: #### 5 8410-2 #### MADELEINE ROSE ([id number]) [facility] ([facility]) [address] [place] [address] Hematocrit (Bld) [Volume fraction] 36.7 % Normal 36.0-46.0 [facility] Comment on above: Performed By: #### 5 8410-2 #### MADELEINE ROSE ([id number]) [facility] ([facility]) [address] [place] [address] Hemoglobin (Bld) [Mass/Vol] 11.6 g/dL Low 12.0-16.0 [facility] Comment on above: Performed By: #### 5 8410-2 #### MADELEINE ROSE ([id number]) [facility] ([facility]) [address] [place] [address] MCH (RBC) [Entitic mass] 30.2 pg Normal 26.0-34.0 [facility] Comment on above: Performed By: #### 5 8410-2 #### MADELEINE ROSE ([id number]) [facility] ([facility]) [address] [place] [address] MCHC (RBC) [Mass/Vol] 31.6 g/dL Low 32.0-36.0 [facility] Comment on above: Performed By: #### 5 8410-2 #### MADELEINE ROSE ([id number]) [facility] ([facility]) [address] [place] [address] MCV (RBC) [Entitic vol] 96 fL Normal 80-100 [facility] Comment on above: Performed By: #### 5 8410-2 #### MADELEINE ROSE ([id number]) [facility] ([facility]) [address] [place] [address] Nucleated RBC/100 WBC (Bld) [Ratio] 0.0 /100 WBCs Normal 0.0-0.0 [facility] Comment on above: Performed By: #### 5 8410-2 #### MADELEINE ROSE ([id number]) [facility] ([facility]) [address] [place] [address] Platelets (Bld) [#/Vol] 330 x10*3/uL Normal 150-450 [facility] Comment on above: Performed By: #### 5 8410-2 #### MADELEINE ROSE ([id number]) [facility] ([facility]) [address] [place] [address] RBC (Bld) [#/Vol] 3.84 x10*6/uL Low 4.00-5.20 [facility] Comment on above: Performed By: #### 5 8410-2 #### MADELEINE ROSE ([id number]) [facility] ([facility]) [address] [place] [address] WBC (Bld) [#/Vol] 12.1 x10*3/uL High 4.4-11.3 [facility] Comment on above: Performed By: #### 5 8410-2 #### MADELEINEIESHA RESTREPOFRI ([id number]) [facility] ([facility]) [address] [place] [address] XR CERVICAL SPINE 2-3 VIEWSo n 03-22-2023 XR CERVICAL SPINE 2-3 VIEWS Interpreted By: Juwan Petit, STUDY: XR CERVICAL SPINE 2-3 VIEWS; ; 03/22/2023 6:16 am INDICATION: Signs/Symptoms:post op evaluation. COMPARISON: 03/21/2023 at 12:31 p.m. ACCESSION NUMBER(S): [id number] ORDERING CLINICIAN: MARY PATRICK FINDINGS: Two view [...] Juwan Petit 03/22/2023 9:24 AM Dictation workstation: [id number] [facility] XR Cervical spine 2 or 3 [...] Juwan Petit 03/22/2023 9:24 AM Dictation workstation: [id number] MMODAL Interpreted By: Juwan Rhoades, STUDY: XR CERVICAL SPINE 2-3 VIEWS; ; 03/22/2023 6:16 am INDICATION: Signs/Symptoms:post op evaluation. COMPARISON: 03/21/2023 at 12:31 p.m. ACCESSION NUMBER(S): [id number] ORDERING CLINICIAN: MARY SHELL FINDINGS: Two view [...] densities/artifacts otherwise limiting evaluation however. MMODAL Juwan Petit DO - 03/22/2023 Interpreted By: Juwan Petit, STUDY: XR CERVICAL SPINE 2-3 VIEWS; ; 03/22/2023 6:16 am INDICATION: Signs/Symptoms:post op evaluation. COMPARISON: 03/21/2023 at 12:31 p.m. ACCESSION NUMBER(S): [id number] ORDERING CLINICIAN: MARY SHELL FINDINGS: Two view [...] Juwan Petit 03/22/2023 9:24 AM Dictation workstation: [id number] [facility] Work Phone: [facility] Work Phone: Radiology Study observation (narrative) [facility] Work Phone: XR Cervical spine Single vie won 03-22-2023 As above. MACRO: None Signed by: Juwan Petit 03/22/2023 9:17 AM Dictation workstation: [id number] [facility] MMODAL Interpreted By: Juwan Rhoades, STUDY: XR CERVICAL SPINE 1 VIEW; ; 03/21/2023 12:54 pm INDICATION: Signs/Symptoms:surgical procedure. COMPARISON: 03/21/2023 at 10:17 a.m. ACCESSION NUMBER(S): [id number] ORDERING CLINICIAN: MIREILLE ZURITA FINDINGS: Single lateral [...] COMPARISON: 03/21/2023 at 10:17 a.m. ACCESSION NUMBER(S): [id number] ORDERING CLINICIAN: MIREILLE ZURITA FINDINGS: Single lateral [...] Juwan Petit 03/22/2023 9:17 AM Dictation workstation: [id number] [facility] Work Phone: [facility] Work Phone: As above. MACRO: None Signed by: Juwan Petit 03/22/2023 9:13 AM Dictation workstation: [id number] [facility] Interpreted By: Juwan Rhoades, STUDY: XR CERVICAL SPINE 1 VIEW; ; 03/21/2023 10:16 am INDICATION: Signs/Symptoms:surgical procedure. COMPARISON: 03/21/2023 at 8:58 a.m. ACCESSION NUMBER(S): [id number] ORDERING CLINICIAN: MIREILLE ZURITA FINDINGS: Single lateral [...] prior. Continued clinical correlation and follow-up advised. [facility] Juwan Petit, DO - 03/22/2023 Interpreted By: Juwan Petit, STUDY: XR CERVICAL SPINE 1 VIEW; ; 03/21/2023 10:16 am INDICATION: Signs/Symptoms:surgical procedure. COMPARISON: 03/21/2023 at 8:58 a.m. ACCESSION NUMBER(S): [id number] ORDERING CLINICIAN: MIREILLE ZURITA FINDINGS: Single lateral [...] Juwan Petit 03/22/2023 9:13 AM Dictation workstation: [id number] [facility] Work Phone: [facility] Work Phone: Linear metallic loca lization device is demonstrated with distal aspect/tip overlying the C3-C4 interspace anteriorly. Prevertebral soft tissue swelling and evidence of soft tissue gas within the prevertebral as well as likely also anterior neck soft tissues probably relating to sequela of recent procedure. Clinical correlation and follow-up advised. MACRO: None Signed by: Juwan Petit 03/22/2023 9:09 AM Dictation workstation: [id number] [facility]AL Interpreted By: Juwan Rhoades, STUDY: XR CERVICAL SPINE 1 VIEW; ; 03/21/2023 8:59 am INDICATION: Signs/Symptoms:Cervical spondylosis with myelopathy. COMPARISON: 03/21/2023 at 8:10 a.m. ACCESSION NUMBER(S): [id number] ORDERING CLINICIAN: MIREILLE ZURITA FINDINGS: Single lateral [...] COMPARISON: 03/21/2023 at 8:10 a.m. ACCESSION NUMBER(S): [id number] ORDERING CLINICIAN: MIREILLE ZURITA FINDINGS: Single lateral [...] Juwan Petit 03/22/2023 9:09 AM Dictation workstation: [id number] [facility] Work Phone: [facility] Work Phone: XR CERVICAL SPINE 1 VIEWon 1 05-21-2022 XR CERVICAL SPINE 1 VIEW Interpreted By: Juwan Petit, STUDY: XR CERVICAL SPINE 1 VIEW; ; 03/21/2023 12:54 pm INDICATION: Signs/Symptoms:surgical procedure. COMPARISON: 03/21/2023 at 10:17 a.m. ACCESSION NUMBER(S): [id number] ORDERING CLINICIAN: MIREILLE ZURITA FINDINGS: Single lateral [...] Juwan Petit 03/22/2023 9:17 AM Dictation workstation: [id number] [facility] XR CERVICAL SPINE 1 VIEW Interpreted By: Juwan Petit, STUDY: XR CERVICAL SPINE 1 VIEW; ; 03/21/2023 10:16 am INDICATION: Signs/Symptoms:surgical procedure. COMPARISON: 03/21/2023 at 8:58 a.m. ACCESSION NUMBER(S): [id number] ORDERING CLINICIAN: MIREILLE ZURITA FINDINGS: Single lateral [...] Juwan Petit 03/22/2023 9:13 AM Dictation workstation: [id number] [facility] XR CERVICAL SPINE 1 VIEW Interpreted By: Juwan Petit, STUDY: XR CERVICAL SPINE 1 VIEW; ; 03/21/2023 8:59 am INDICATION: Signs/Symptoms:Cervical spondylosis with myelopathy. COMPARISON: 03/21/2023 at 8:10 a.m. ACCESSION NUMBER(S): [id number] ORDERING CLINICIAN: MIREILLE ZURITA FINDINGS: Single lateral [...] Juwan Petit 03/22/2023 9:09 AM Dictation workstation: [id number] [facility] XR CERVICAL SPINE 1 VIEW Interpreted By: Juwan Petit, STUDY: XR CERVICAL SPINE 1 VIEW; ; 03/21/2023 8:11 am INDICATION: Signs/Symptoms:surgical procedure. COMPARISON: 04/25/2020 ACCESSION NUMBER(S): [id number] ORDERING CLINICIAN: MIREILLE ZURITA FINDINGS: Single lateral [...] Juwan Petit 03/21/2023 8:52 AM Dictation workstation: [id number] [facility] XR Cervical spine Single vie won 03-21-2023 Radiology Study observation (narrative) [facility] Work Phone: Radiology Study observation (narrative) [facility] Work Phone: Radiology Study observation (narrative) [facility] Work Phone: As above. MACRO: None Signed by: Juwan Petit 03/21/2023 8:52 AM Dictation workstation: [id number] [facility] Interpreted By: Juwan Rhoades, STUDY: XR CERVICAL SPINE 1 VIEW; ; 03/21/2023 8:11 am INDICATION: Signs/Symptoms:surgical procedure. COMPARISON: 04/25/2020 ACCESSION NUMBER(S): [id number] ORDERING CLINICIAN: MIREILLE ZURITA FINDINGS: Single lateral [...] to positioning and otherwise of uncertain significance. MMODAL Juwan Petit, DO - 03/21/2023 Interpreted By: Juwan Petit, STUDY: XR CERVICAL SPINE 1 VIEW; ; 03/21/2023 8:11 am INDICATION: Signs/Symptoms:surgical procedure. COMPARISON: 04/25/2020 ACCESSION NUMBER(S): [id number] ORDERING CLINICIAN: MIREILLE ZURITA FINDINGS: Single lateral [...] Juwan Petit 03/21/2023 8:52 AM Dictation workstation: [id number] [facility] Work Phone: Radiology Study observation (narrative) [facility] Work Phone: XR Cervical spine Single vie wOrdered By: Juwan Petit on 03-21-2023 [facility] Work Phone: MRSA isol Org specific cx Ql (Nose)Ordered By: Cele Chatterjee on 03-16-2023 Interpretation and review of laboratory results Normal [facility] Staphylococcus sp identified Org specific cx Nom (Unsp spec) No Staphylococcus aureus isolated [facility] XR Chest 2 Viewson 3 No acute cardiopulmo nary disease. MACRO: none Signed by: Zeynep Sen 03/15/2023 12:07 PM Dictation workstation: [id number] MMODAL Interpreted By: Zeynep Palafox, STUDY: XR CHEST 2 VIEWS; 03/14/2023 2:09 pm INDICATION: Signs/Symptoms:preop testing. COMPARISON: None. ACCESSION NUMBER(S): [id number] ORDERING CLINICIAN: MIREILLE ZURITA FINDINGS: Heart is [...] INDICATION: Signs/Symptoms:preop testing. COMPARISON: None. ACCESSION NUMBER(S): [id number] ORDERING CLINICIAN: MIREILLE ZURITA FINDINGS: Heart is [...] Zeynep Sen 03/15/2023 12:07 PM Dictation workstation: [id number] [facility] Work Phone: XR Chest 2 ViewsOrdered By: Zeynep Sen on 03-15-2023 [facility] Work Phone: CBC panel Auto (Bld)on 03-14 Erythrocyte distribution width (RBC) [Ratio] 13.0 % 11.5 - 14.5 % [facility] Hematocrit (Bld) [Volume fraction] 37.8 % 36.0 - 46.0 % [facility] Hemoglobin (Bld) [Mass/Vol] 12.2 g/dL 12.0 - 16.0 g/dL [facility] Interpretation and review of laboratory results Normal [facility] MCH (RBC) [Entitic mass] 30.1 pg 26.0 - 34.0 pg [facility] MCHC (RBC) [Mass/Vol] 32.3 g/dL 32.0 - 36.0 g/dL [facility] MCV (RBC) [Entitic vol] 93 fL 80 - 100 fL [facility] Nucleated RBC/100 WBC (Bld) [Ratio] 0.0 % [facility] Platelets (Bld) [#/Vol] 350 10*3/uL [facility] RBC (Bld) [#/Vol] 4.05 10*6/uL [facility] WBC (Bld) [#/Vol] 8.6 10*3/uL [facility] Erythrocyte distribution width (RBC) [Ratio] 13.0 % Normal 11.5-14.5 [facility] Comment on above: Performed By: #### 5 8410-2 #### MADELEINE ROSE ([id number]) [facility] ([facility]) [address] [place] [address] Hematocrit (Bld) [Volume fraction] 37.8 % Normal 36.0-46.0 [facility] Comment on above: Performed By: #### 5 8410-2 #### MADELEINE ROSE ([id number]) [facility] ([facility]) [address] [place] [address] Hemoglobin (Bld) [Mass/Vol] 12.2 g/dL Normal 12.0-16.0 [facility] Comment on above: Performed By: #### 5 8410-2 #### MADELEINE ROSE ([id number]) [facility] ([facility]) [address] [place] [address] MCH (RBC) [Entitic mass] 30.1 pg Normal 26.0-34.0 [facility] Comment on above: Performed By: #### 5 8410-2 #### MADELEINE ROSE ([id number]) [facility] ([facility]) [address] [place] [address] MCHC (RBC) [Mass/Vol] 32.3 g/dL Normal 32.0-36.0 [facility] Comment on above: Performed By: #### 5 8410-2 #### MADELEINE ROSE ([id number]) [facility] ([facility]) [address] [place] [address] MCV (RBC) [Entitic vol] 93 fL Normal 80-100 [facility] Comment on above: Performed By: #### 5 8410-2 #### MADELEINE ROSE ([id number]) [facility] ([facility]) [address] [place] [address] Nucleated RBC/100 WBC (Bld) [Ratio] 0.0 /100 WBCs Normal 0.0-0.0 [facility] Comment on above: Performed By: #### 5 8410-2 #### MADELEINE ROSE ([id number]) [facility] ([facility]) [address] [place] [address] Platelets (Bld) [#/Vol] 350 x10*3/uL Normal 150-450 [facility] Comment on above: Performed By: #### 5 8410-2 #### MADELEINE ROSE ([id number]) [facility] ([facility]) [address] [place] [address] RBC (Bld) [#/Vol] 4.05 x10*6/uL Normal 4.00-5.20 [facility] Comment on above: Performed By: #### 5 8410-2 #### MADELEINE ROSE ([id number]) [facility] ([facility]) [address] [place] [address] WBC (Bld) [#/Vol] 8.6 x10*3/uL Normal 4.4-11.3 [facility] Comment on above: Performed By: #### 5 8410-2 #### MADELEINE ROSE ([id number]) [facility] ([facility]) [address] [place] [address] Comprehensive metabolic 2000 panelon 03-14-2023 Albumin BCP dye [Mass/Vol] 4.3 g/dL 3.4 - 5.0 g/dL [facility] ALP [Catalytic activity/Vol] 51 U/L 33 - 136 U/L [facility] ALT With P-5'-P [Catalytic activity/Vol] 14 U/L 7 - 45 U/L [facility] Comment on above: Patients treated wit h Sulfasalazine may generate falsely decreased results for ALT. Anion gap [Moles/Vol] 10 mmol/L 10 - 2 0 mmol/L [facility] AST With P-5'-P [Catalytic activity/Vol] 13 U/L 9 - 39 U/L [facility] Bilirubin [Mass/Vol] 0.5 mg/dL 0.0 - 1 .2 mg/dL [facility] Calcium [Mass/Vol] 9.2 mg/dL 8.6 - 10. 3 mg/dL [facility] Chloride [Moles/Vol] 101 mmol/L 98 - 10 7 mmol/L [facility] CO2 [Moles/Vol] 29 mmol/L 21 - 32 mmol/L [facility] Creatinine [Mass/Vol] 0.95 mg/dL 0.50 - 1.05 mg/dL [facility] GFR/1.73 sq M.predicted MDRD (S/P/Bld) [Vol rate/Area] 65 mL/min/{1.73_m2} - PINF [facility] Comment on above: Calculations of gabriela mated GFR are performed using the 2020 CKD-EPI Study Refit equation without the race variable for the IDMS-Traceable creatinine methods. https://jasn.asnjournals.org/content/early/ASN.485316 9774 Glucose [Mass/Vol] 83 mg/dL 74 - 99 mg/dL [facility] Potassium [Moles/Vol] 4.2 mmol/L 3.5 - 5.3 mmol/L [facility] Protein [Mass/Vol] 6.4 g/dL 6.4 - 8.2 g/dL [facility] Sodium [Moles/Vol] 136 mmol/L 136 - 145 mmol/L [facility] Urea nitrogen [Mass/Vol] 21 mg/dL 6 - 23 mg/dL [facility] Albumin BCP dye [Mass/Vol] 4.3 g/dL Normal 3.4-5.0 [facility] Comment on above: Performed By: #### 2 4323-8 #### MADELEINE ROSE ([id number]) [facility] ([facility]) [address] [place] [address] ALP [Catalytic activity/Vol] 51 U/L Normal 33-136 [facility] Comment on above: Performed By: #### 2 4323-8 #### MADELEINE ROSE ([id number]) [facility] ([facility]) [address] [place] [address] ALT With P-5'-P [Catalytic activity/Vol] 14 U/L Normal 7-45 [facility] Comment on above: Result Comment: Lorena ents treated with Sulfasalazine may generate falsely decreased results for ALT. Performed By: #### 2 4323-8 #### MADELEINE ROSE ([id number]) [facility] ([facility]) [address] [place] [address] Anion gap [Moles/Vol] 10 mmol/L Normal 10-20 [facility] Comment on above: Performed By: #### 2 4323-8 #### MADELEINE ROSE ([id number]) [facility] ([facility]) [address] [place] [address] AST With P-5'-P [Catalytic activity/Vol] 13 U/L Normal 9-39 [facility] Comment on above: Performed By: #### 2 4323-8 #### MADELEINE ROSE ([id number]) [facility] ([facility]) [address] [place] [address] Bilirubin [Mass/Vol] 0.5 mg/dL Normal 0.0-1.2 [facility] Comment on above: Performed By: #### 2 432-8 #### MADELEINE ROSE ([id number]) [facility] ([facility]) [address] [place] [address] Calcium [Mass/Vol] 9.2 mg/dL Normal 8.6-10.3 [facility] Comment on above: Performed By: #### 2 432-8 #### MADELEINE ROSE ([id number]) [facility] ([facility]) [address] [place] [address] Chloride [Moles/Vol] 101 mmol/L Normal 98-107 [facility] Comment on above: Performed By: #### 2 4323-8 #### MADELEINE ROSE ([id number]) [facility] ([facility]) [address] [place] [address] CO2 [Moles/Vol] 29 mmol/L Normal 21-32 [facility] Comment on above: Performed By: #### 2 4323-8 #### MADELEINE ROSE ([id number]) [facility] ([facility]) [address] [place] [address] Creatinine [Mass/Vol] 0.95 mg/dL Normal 0.50-1.05 [facility] Comment on above: Performed By: #### 2 432-8 #### MADELEINE ROSE ([id number]) [facility] ([facility]) [address] [place] [address] GFR/1.73 sq M.predicted MDRD (S/P/Bld) [Vol rate/Area] 65 mL/min/1.73m*2 Normal >60 [facility] Comment on above: Result Comment: Calc ulations of estimated GFR are performed using the 2020 CKD-EPI Study Refit equation without the race variable for the IDMS-Traceable creatinine methods. https://jasn.asnjournals.org/content/early//ASN.785511 5590 Performed By: #### 2 4323-8 #### MADELEINE ROSE ([id number]) [facility] ([facility]) [address] [place] [address] Glucose [Mass/Vol] 83 mg/dL Normal 74-99 [facility] Comment on above: Performed By: #### 2 4323-8 #### MADELEINE ROSE ([id number]) [facility] ([facility]) [address] [place] [address] Potassium [Moles/Vol] 4.2 mmol/L Normal 3.5-5.3 [facility] Comment on above: Performed By: #### 2 4323-8 #### MADELEINE ROSE ([id number]) [facility] ([facility]) [address] [place] [address] Protein [Mass/Vol] 6.4 g/dL Normal 6.4-8.2 [facility] Comment on above: Performed By: #### 2 4323-8 #### MADELEINE ROSE ([id number]) [facility] ([facility]) [address] [place] [address] Sodium [Moles/Vol] 136 mmol/L Normal 136-145 [facility] Comment on above: Performed By: #### 2 4323-8 #### MADELEINE ROSE ([id number]) [facility] ([facility]) [address] [place] [address] Urea nitrogen [Mass/Vol] 21 mg/dL Normal 6-23 [facility] Comment on above: Performed By: #### 2 4323-8 #### MADELEINE ROSE ([id number]) [facility] ([facility]) [address] [place] [address] ECG 12-LEADon 03-14-2023 ECG 12-LEAD Ventricular Rate 63 Atrial Rate 63 P-R Interval 192 QRS Duration 84 Q-T Interval 406 QTC Calculation(Bazett) 415 P [place] 51 R [place] 52 T [place] 44 QRS Count 10 Q Onset 224 P Onset 128 P Offset 183 T Offset 427 QTC Fredericia 412 Diagnosis Normal sinus rhythm Normal ECG No previous ECGs available Confirmed by Camilo Parr ([id number]) on 03/28/2023 9:17:27 PM Normal [facility] No Panel Informationon 03-14 Interpretation and review of laboratory results Normal [facility] PT and aPTT panel Coag (PPP) on 03-14-2023 aPTT Coag (PPP) [Time] 29 s [facility] INR Coag (PPP) [Relative time] 1.0 {INR} 0.9 - 1.1 [facility] Interpretation and review of laboratory results Normal [facility] PT Coag (PPP) [Time] 11.[address] [facility] The APTT is no longe r used for monitoring Unfractionated Heparin Therapy. For monitoring Heparin Therapy, use the Heparin Assay. [facility] aPTT Coag (PPP) [Time] 29 s Normal 27-38 [facility] Comment on above: Order Comment: The A PTT is no longer used for monitoring Unfractionated Heparin Therapy. For monitoring Heparin Therapy, use the Heparin Assay. Performed By: #### 3 4529-8 #### MADELEINE ROSE ([id number]) [facility] ([facility]) [address] [place] [address] INR Coag (PPP) [Relative time] 1.0 Normal 0.9-1.1 [facility] Comment on above: Order Comment: The A PTT is no longer used for monitoring Unfractionated Heparin Therapy. For monitoring Heparin Therapy, use the Heparin Assay. Performed By: #### 3 4529-8 ###Mohamud ROSE ([id number]) [facility] ([facility]) [address] [place] [address] PT Coag (PPP) [Time] 11.0 s Normal 9.8-12.8 [facility] Comment on above: Order Comment: The A PTT is no longer used for monitoring Unfractionated Heparin Therapy. For monitoring Heparin Therapy, use the Heparin Assay. Performed By: #### 3 4529-8 #### MADELEINE ROSE ([id number]) [facility] ([facility]) [address] [place] [address] Phosphateon 03-14-2023 Phosphate [Mass/Vol] 3.1 mg/dL Normal 2.5-4.9 [facility] Comment on above: Result Comment: The performance characteristics of phosphorus testing in heparinized plasma have been validated by the individual laboratory site where testing is performed. Testing on heparinized plasma is not approved by the FDA; however, such approval is not necessary. Performed By: #### 2 777-1 #### MADELEINE ROSE ([id number]) [facility] ([facility]) [address] [place] [address] Phosphoruson 03-14-2023 Phosphate [Mass/Vol] 3.1 mg/dL 2.5 - 4 .9 mg/dL [facility] Comment on above: The performance jurgen acteristics [...] Status: Final result Abnormal: No Resulting Lab: [facility] [address] [facility] [address] CULTURE No Staphylococcus aureus isolated Normal [facility] Comment on above: Performed By: #### 5 2969-3 #### JULISSA EMILE Jarvis ([id number]) [facility] ([facility]) [id number] [place], [place] [id number] XR CHEST 2 VIEWSon 3 XR CHEST 2 VIEWS Interpreted By: Zeynep Palafox, STUDY: XR CHEST 2 VIEWS; 03/14/2023 2:09 pm INDICATION: Signs/Symptoms:preop testing. COMPARISON: None. ACCESSION NUMBER(S): [id number] ORDERING CLINICIAN: MIREILLE ZURITA FINDINGS: Heart is [...] Zeynep Sen 03/15/2023 12:07 PM Dictation workstation: [id number] [facility] XR Chest 2 Viewson 3 Radiology Study observation (narrative) [facility] Work Phone: Blood Pressure Cuff Sizeon 0 [...] would like to proceed. She is a Mormon and so we definitely discussed not using blood products. 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 She is a Mormon and so we definitely discussed not using blood products. 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 Normal [facility] Initial Visit (Neurosurgery) on 12-07-2022 Initial Visit [...] been experiencing. 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 [...] been experiencing. 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 I also suggested that she start considering getting second opinions. I am goi (more content not included)... Normal [facility] Tobacco Screening.on 023 Adult depression screening [...] chele Hts [address] Work Phone: Covid-19 PCR (CVDTB)on 07-08 SARS-CoV-2 (COVID-19) RNA CONRADO+probe Ql (Unsp spec) Not detected Normal NOT DETECTED [facility] Comment on above: Result Comment: This test is not yet approved or cleared by the [place] FDA. When there are no FDA-approved or cleared tests available, and other criteria are met, FDA can make tests available under an emergency access mechanism called an Emergency Use Authorization (EUA). The EUA for this test is supported by the Physician Office Rep of Health and Human Service's (HHS's) declaration [...] SARS-CoV-2. Performed By: #### O BSCRN #### [facility] [address] [place] [address] Dr. Shobha Ruffin TSHon 07-21-2022 TSH 0.487 uIU/mL Normal 0.358-3.74 0 [facility] Comment on above: Performed By: #### O BSCRN #### [facility] [address] [place] [address] Dr. Shobha Ruffin VITAMIN B12on 07-21-2022 Cobalamin (Vitamin B12) [Mass/Vol] 554.0 pg/mL Normal 193.0-986. 0 [facility] Comment on above: Performed By: #### R ENAL, URIC, MG #### [facility] [address] [place] [address] Dr. Shobha Ruffin PTH INTACTon 05-18-2022 PTH, Intact 29 pg/mL Normal 15-65 [facility] Comment on above: Performed By: #### R ENAL, URIC, MG #### [facility] [address] [place] [address] Dr. Shobha Ruffin FERRITINon 05-17-2022 Ferritin [Mass/Vol] 55.0 ng/mL Normal 8.0-252.0 [facility] Comment on above: Performed By: #### R ENAL, URIC, MG #### [facility] [address] [place] [address] Dr. Shobha Ruffin HEMOGRAM AND PLATELon 2022 Hematocrit (Bld) [Volume fraction] 35.6 % Critically low 36.0-48.0 [facility] Comment on above: Performed By: #### R ENAL, URIC, MG #### [facility] [address] [place] [address] Dr. Shobha Ruffin Hemoglobin (Bld) [Mass/Vol] 12.3 g/dL Normal 12.0-16.0 [facility] Comment on above: Performed By: #### R ENAL, URIC, MG #### [facility] [address] [address] [address] Shobha Ruffin MCH (RBC) [Entitic mass] 29.6 pg Normal 26.7-34.0 [facility] Comment on above: Performed By: #### R ENAL, URIC, MG #### [facility] [address] [place] [address] Dr. Shobha Ruffin MCHC (RBC) [Mass/Vol] 34.6 g/dL Normal 29.9-35.2 [facility] Comment on above: Performed By: #### R ENAL, URIC, MG #### [facility] [address] [place] [address] Dr. Shobha Ruffin MCV (RBC) [Entitic vol] 85.8 fL Normal 81.0-99.0 [facility] Comment on above: Performed By: #### R ENAL, URIC, MG #### [facility] [address] [place] [address] Dr. Shobha Ruffin PLT 338 103/ul Normal 150-450 [facility] Comment on above: Performed By: #### R ENAL, URIC, MG #### [facility] [address] [place] [address] Dr. Shobha Ruffin RBC 4.15 106/ul Critically low 4.20-5.40 [facility] Comment on above: Performed By: #### R ENAL, URIC, MG #### [facility] [address] [place] [address] Dr. Shobha Ruffin WBC 7.0 103/ul Normal 4.0-11.0 [facility] Comment on above: Performed By: #### R ENAL, URIC, MG #### [facility] [address] [place] [address] Dr. Shobha Ruffin IRON AND TIBCon 05-17-2022 % SATURATION 29.6 % Normal [facility] Comment on above: Performed By: #### R ENAL, URIC, MG #### [facility] [address] [place] [address] Dr. Shobha Ruffin Iron [Mass/Vol] 89.0 ug/dL Normal 50.0-170.0 [facility] Comment on above: Performed By: #### R ENAL, URIC, MG #### [facility] [address] [place] [address] Dr. Shobha Ruffin TIBC DIRECT 301.0 ug/dL Normal 250.0-450. 0 [facility] Comment on above: Performed By: #### R ENAL, URIC, MG #### [facility] [facility] [address] [place] [address] Dr. Shobha Ruffin MAGNESIUMon 05-17-2022 Magnesium [Mass/Vol] 2.2 mg/dL Normal 1.8-2.4 [facility] Comment on above: Performed By: #### R ENAL, URIC, MG #### [facility] [address] [place] [address] Dr. Shobha Ruffin RENAL FUNCTION PANELon 05-17 Albumin [Mass/Vol] 3.7 g/dL Normal 3.4-5.0 [facility] Comment on above: Performed By: #### R ENAL, URIC, MG #### [facility] [address] [place] [address] Dr. Shobha Ruffin Calcium [Mass/Vol] 9.1 mg/dL Normal 8.5-10.1 [facility] Comment on above: Performed By: #### R ENAL, URIC, MG #### [facility] [address] [place] [address] Dr. Shobha Ruffin Chloride [Moles/Vol] 100 mmol/L Normal 98-107 [facility] Comment on above: Performed By: #### R ENAL, URIC, MG #### [facility] [address] [address] [address] Shobha Ruffin CO2 [Moles/Vol] 31.0 mmol/L Normal 21.0-32.0 [facility] Comment on above: Performed By: #### R ENAL, URIC, MG #### [facility] [address] [address] [address] Shobha Ruffin Creatinine [Mass/Vol] 0.92 mg/dL Normal 0.55-1.02 [facility] Comment on above: Performed By: #### R ENAL, URIC, MG #### [facility] [address] [address] [address] Shobha Ruffin EGFR-AF MOZAMBICAN >60 Normal >=60 [facility] Comment on above: Performed By: #### R ENAL, URIC, MG #### [facility] [address] [address] [address] Shobha Ruffin EGFR-NON AF MOZAMBICAN >60 Normal >=60 [facility] Comment on above: Performed By: #### R ENAL, URIC, MG #### [facility] [address] [address] [address] Shobha Ruffin Glucose [Mass/Vol] 93 mg/dL Normal 74-106 [facility] Comment on above: Performed By: #### R ENAL, URIC, MG #### [facility] [address] [address] [address] Shobha Rufifn Phosphate [Mass/Vol] 3.7 mg/dL Normal 2.6-4.7 [facility] Comment on above: Performed By: #### R ENAL, URIC, MG #### [facility] [address] [address] [address] Shobha Ruffin Potassium [Moles/Vol] 3.9 mmol/L Normal 3.5-5.1 [facility] Comment on above: Performed By: #### R ENAL, URIC, MG #### [facility] [address] [address] [address] Shobha Ruffin Sodium [Moles/Vol] 138 mmol/L Normal 136-145 [facility] Comment on above: Performed By: #### R ENAL, URIC, MG #### [facility] [address] [address] [address] Shobha Ruffin Urea nitrogen [Mass/Vol] 19.0 mg/dL Critically high 7.0-18.0 [facility] Comment on above: Performed By: #### R ENAL, URIC, MG #### [facility] [address] [place] [address] Dr. Shobha Ruffin UA RANDOM W/MICROSCOPICon BACTERIA NONE SEEN Normal NONE SEEN [facility] Comment on above: Performed By: #### U AMIC #### [facility] [address] [place] [address] Dr. Shobha Ruffin Bilirubin Ql (U) Negative Normal NEGATIVE [facility] Comment on above: Performed By: #### U AMIC #### [facility] [address] [place] [address] Dr. Shobha Ruffin CAST NONE SEEN Normal NONE SEEN [facility] Comment on above: Performed By: #### U AMIC #### [facility] [address] [place] [address] Dr. Shobha Ruffin Clarity (U) SL CLOUDY Abnormal CLEAR [facility] Comment on above: Performed By: #### U AMIC #### [facility] [address] [place] [address] Dr. Shobha Ruffin Color (U) LT. YELLOW Normal YELLOW [facility] Comment on above: Performed By: #### U AMIC #### [facility] [address] [place] [address] Dr. Shobha Ruffin Crystals LM Nom (Urine sed) NONE SEEN Normal NONE SEEN [facility] Comment on above: Performed By: #### U AMIC #### [facility] [address] [place] [address] Dr. Shobha Ruffin Epithelial cells LM Ql (Urine sed) MODERATE Abnormal NONE SEEN /RARE [facility] Comment on above: Performed By: #### U AMIC #### [facility] [address] [place] [address] Dr. Shobha Ruffin Glucose Ql (U) Negative Normal NEGATIVE [facility] Comment on above: Performed By: #### U AMIC #### [facility] [address] [place] [address] Dr. Shobha Ruffin Hemoglobin Ql (U) Negative Normal NEGATIVE [facility] Comment on above: Performed By: #### U AMIC #### [facility] [address] [address] [address] Shobha Ruffin Ketones Ql (U) Negative Normal NEGATIVE [facility] Comment on above: Performed By: #### U AMIC #### [facility] [address] [place] [address] Dr. Shobha Ruffin LEUKOCYTES TRACE Abnormal NEGATIVE [facility] Comment on above: Performed By: #### U AMIC #### [facility] [address] [place] [address] Dr. Shobha Ruffin MUCOUS NONE SEEN Normal NONE SEEN [facility] Comment on above: Performed By: #### U AMIC #### [facility] [address] [place] [address] Dr. Shobha Ruffin Nitrite Ql (U) Negative Normal NEGATIVE [facility] Comment on above: Performed By: #### U AMIC #### [facility] [address] [place] [address] Dr. Shobha Ruffin pH (U) 7.5 [pH] Normal 5-9 [facility] Comment on above: Performed By: #### U AMIC #### [facility] [address] [place] [address] Dr. Shobha Ruffin RBC NONE SEEN Abnormal 0-2 [facility] Comment on above: Performed By: #### U AMIC #### [facility] [address] [address] [address] Shobha Ruffin SPEC GRAVITY 1.015 Normal 1.005-<=1. 025 [facility] Comment on above: Performed By: #### U AMIC #### [facility] [address] [place] [address] Dr. Shobha Ruffin UA PROTEIN Negative Normal NEGATIVE/ TRACE [facility] Comment on above: Performed By: #### U AMIC #### [facility] [address] [address] [address] Shobha Ruffin Urobilinogen Qn (U) 0.2 {Raul'U}/dL Normal 0.2 - 1. 0 [facility] Comment on above: Performed By: #### U AMIC #### [facility] [address] [place] [address] Dr. Shobha Ruffin WBC 0-2 Abnormal NONE SEEN [facility] Comment on above: Performed By: #### U AMIC #### [facility] [address] [place] [address] Dr. Shobha Ruffin URINE T PROTEIN CREAT RATIOo n 05-17-2022 Protein (U) [Mass/Vol] 20.5 mg/dL Critically high <=12.0 [facility] Comment on above: Performed By: #### O BSCRN #### [facility] [address] [place] [address] Dr. Shobha Ruffin UR PROT CREAT RAT 0.21 Normal [facility] Comment on above: Performed By: #### O BSCRN #### [facility] [address] [place] [address] Dr. Shobha Ruffin URINE CREAT 98.95 mg/dL Normal 20.00-300. 00 [facility] Comment on above: Performed By: #### O BSCRN #### [facility] [address] [place] [address] Dr. Shobha Ruffin VITAMIN D 25 OHon 05-17-2022 VIT D 25-OH 29.5 ng/mL Normal [facility] Comment on above: Performed By: #### R ENAL, URIC, MG #### [facility] [address] [place] [address] Dr. Shobha Ruffin VIT D RANGES SEE BELOW Normal [facility] Comment on above: Result Comment: <20 ng/mL Vit D deficient 20 - <30 ng/mL Vit D insufficient 30 - 100 ng/mL Vit D sufficient >100 ng/mL Potential Toxicity Performed By: #### R ENAL, URIC, MG #### [facility] [address] [place] [address] Dr. Shobha Ruffin CBC AUTO DIFFon 05-04-2022 BASO # 0.1 103/ul Normal 0.0-0.1 [facility] Comment on above: Performed By: #### O BSCRN #### [facility] [address] [place] [address] Dr. Shobha Ruffin Basophils/100 WBC (Bld) 1.0 % Normal 0.2-2.0 [facility] Comment on above: Performed By: #### O BSCRN #### [facility] [address] [place] [address] Dr. Shobha Ruffin EO # 0.2 103/ul Normal 0.0-0.7 [facility] Comment on above: Performed By: #### O BSCRN #### [facility] [address] [place] [address] Dr. Shobha Ruffin Eosinophils/100 WBC (Bld) 2.5 % Normal 0.9-7.0 [facility] Comment on above: Performed By: #### O BSCRN #### [facility] [address] [place] [address] Dr. Shobha Ruffin Erythrocyte distribution width (RBC) [Ratio] 13.3 % Normal 11.0-15.0 [facility] Comment on above: Performed By: #### O BSCRN #### [facility] [address] [place] [address] Dr. Shobha Ruffin Hematocrit (Bld) [Volume fraction] 39.7 % Normal 36.0-48.0 [facility] Comment on above: Performed By: #### O BSCRN #### [facility] [address] [place] [address] Dr. Shobha Ruffin Hemoglobin (Bld) [Mass/Vol] 12.9 g/dL Normal 12.0-16.0 [facility] Comment on above: Performed By: #### O BSCRN #### [facility] [address] [place] [address] Dr. Shobha Ruffin IG # 0.02 10e3/ul Normal 0.00-0.03 [facility] Comment on above: Performed By: #### O BSCRN #### [facility] [address] [place] [address] Dr. Shobha Ruffin IG % 0.3 % Normal 0.0-0.5 [facility] Comment on above: Performed By: #### O BSCRN #### [facility] [address] [place] [address] Dr. Shobha Ruffin LYMPH # 1.7 103/ul Normal 1.2-3.8 [facility] Comment on above: Performed By: #### O BSCRN #### [facility] [address] [place] [address] Dr. Shobha Ruffin Lymphocytes/100 WBC (Bld) 22.2 % Normal 20.5-60.0 [facility] Comment on above: Performed By: #### O BSCRN #### [facility] [address] [place] [address] Dr. Shobha Ruffin MANUAL DIFF REQ NO Normal [facility] Comment on above: Performed By: #### O BSCRN #### [facility] [address] [place] [address] Dr. Shobha Ruffin MCH (RBC) [Entitic mass] 29.3 pg Normal 26.7-34.0 [facility] Comment on above: Performed By: #### O BSCRN #### [facility] [address] [place] [address] Dr. Shobha Ruffin MCHC (RBC) [Mass/Vol] 32.5 g/dL Normal 29.9-35.2 [facility] Comment on above: Performed By: #### O BSCRN #### [facility] [address] [place] [address] Dr. Shobha Ruffin MCV (RBC) [Entitic vol] 90.2 fL Normal 81.0-99.0 [facility] Comment on above: Performed By: #### O BSCRN #### [facility] [address] [place] [address] Dr. Shobha Ruffin MONO # 0.8 103/ul Normal 0.3-0.8 [facility] Comment on above: Performed By: #### O BSCRN #### [facility] [address] [address] [address] Shobha Ruffin Monocytes/100 WBC (Bld) 10.5 % Normal 1.7-12.0 [facility] Comment on above: Performed By: #### O BSCRN #### [facility] [address] [place] [address] Dr. Shobha Ruffin NEUT # 4.9 103/ul Normal 1.4-6.5 [facility] Comment on above: Performed By: #### O BSCRN #### [facility] [address] [place] [address] Dr. Shobha Ruffin Neutrophils/100 WBC (Bld) 63.5 % Normal 43.0-75.0 [facility] Comment on above: Performed By: #### O BSCRN #### [facility] [address] [place] [address] Dr. Shobha Ruffin Platelet mean volume (Bld) [Entitic vol] 8.8 fL Critically low 9.5-13.5 [facility] Comment on above: Performed By: #### O BSCRN #### [facility] [address] [place] [address] Dr. Shobha Ruffin PLT 307 103/ul Normal 150-450 [facility] Comment on above: Performed By: #### O BSCRN #### [facility] [address] [place] [address] Dr. Shobha Ruffin RBC 4.40 106/ul Normal 4.20-5.40 [facility] Comment on above: Performed By: #### O BSCRN #### [facility] [address] [place] [address] Dr. Shobha Ruffin WBC 7.8 103/ul Normal 4.0-11.0 [facility] Comment on above: Performed By: #### O BSCRN #### [facility] [address] [place] [address] Dr. Shobha Ruffin LIPID PROFILEon 05-04-2022 CHOL-HDL RATIO NORM SEE BELOW Normal [facility] Comment on above: Result Comment: 3.3 - 4.4 LOW RISK 4.4 - 7.1 AVERAGE RISK 7.1 - 11.0 MODERATE RISK >11.0 HIGH RISK Performed By: #### L IPID, LIVER #### [facility] [address] [address] [address] hSobha Ruffin Cholesterol [Mass/Vol] 296 mg/dL Critically high <=200 [facility] Comment on above: Performed By: #### L IPID, LIVER #### [facility] [address] [address] [address] Shobha Ruffin Cholesterol in HDL [Mass/Vol] 102 mg/dL Critically high 40-60 [facility] Comment on above: Performed By: #### L IPID, LIVER #### [facility] [address] [place] [address] Dr. Shobha Ruffin Cholesterol in LDL [Mass/Vol] 178.6 mg/dL Normal [facility] Comment on above: Performed By: #### L IPID, LIVER #### [facility] [address] [place] [address] Dr. Shobha Ruffin Cholesterol.total/Cho lesterol in HDL [Mass ratio] 2.9 {ratio} Normal [facility] Comment on above: Performed By: #### L IPID, LIVER #### [facility] [address] [place] [address] Dr. Shobha Ruffin HDL NORMAL > or = 60 mg/dl - LO W CARDIOVASCULAR RISK <40 mg/dl - HIGH CARDIOVASCULAR RISK Normal [facility] Comment on above: Performed By: #### L IPID, LIVER #### [facility] [address] [place] [address] Dr. Shobha Ruffin LDL CALC NORMAL SEE BELOW Normal [facility] Comment on above: Result Comment: <100 mg/dl OPTIMAL 100 - 129 mg/dl NEAR OR ABOVE OPTIMAL 130 - 159 mg/dl BORDERLINE HIGH 160 - 189 mg/dl HIGH >190 mg/dl VERY HIGH Performed By: #### L IPID, LIVER #### [facility] [address] [place] [address] Dr. Shobha Ruffin Triglyceride [Mass/Vol] 77 mg/dL Normal <=150 [facility] Comment on above: Performed By: #### L IPID, LIVER #### [facility] [address] [address] [address] Shobha Ruffin VLDL CALC 15.4 mg/dL Normal [facility] Comment on above: Performed By: #### L IPID, LIVER #### [facility] [address] [address] [address] Shobha Ruffin LIVER PROFILEon 05-04-2022 Albumin [Mass/Vol] 3.6 g/dL Normal 3.4-5.0 [facility] Comment on above: Performed By: #### L IPID, LIVER #### [facility] [address] [place] [address] Dr. Shobha Ruffin Albumin/Globulin [Mass ratio] 1.0 {ratio} Normal [facility] Comment on above: Performed By: #### L IPID, LIVER #### [facility] [address] [place] [address] Dr. Shohba Ruffin ALP [Catalytic activity/Vol] 58 U/L Normal 46-116 [facility] Comment on above: Performed By: #### L IPID, LIVER #### [facility] [address] [place] [address] Dr. Shobha Ruffin ALT [Catalytic activity/Vol] 20 U/L Normal 14-59 [facility] Comment on above: Performed By: #### L IPID, LIVER #### [facility] [address] [place] [address] Dr. Shobha Ruffin AST [Catalytic activity/Vol] 16 U/L Normal 15-37 [facility] Comment on above: Performed By: #### L IPID, LIVER #### [facility] [address] [address] [address] Shobha Ruffin BILI, CONJUGATED 0.1 mg/dL Normal 0.0-0.2 [facility] Comment on above: Performed By: #### L IPID, LIVER #### [facility] [address] [place] [address] Dr. Shobha Ruffin Bilirubin [Mass/Vol] 0.7 mg/dL Normal 0.2-1.0 [facility] Comment on above: Performed By: #### L IPID, LIVER #### [facility] [address] [place] [address] Dr. Shobha Ruffin Globulin (S) [Mass/Vol] 3.5 g/dL Normal [facility] Comment on above: Performed By: #### L IPID, LIVER #### [facility] [address] [place] [address] Dr. Shobha Ruffin Protein [Mass/Vol] 7.1 g/dL Normal 6.4-8.2 [facility] Comment on above: Performed By: #### L IPID, LIVER #### [facility] [address] [place] [address] Dr. Shobha Ruffin CALCIUMon 02-08-2022 Calcium [Mass/Vol] 9.1 mg/dL Normal 8.5-10.1 [facility] Comment on above: Performed By: #### R ENAL, URIC, MG #### [facility] [address] [place] [address] Dr. Shobha Ruffin CREATININEon 02-08-2022 Creatinine [Mass/Vol] 0.95 mg/dL Normal 0.55-1.02 [facility] Comment on above: Performed By: #### O BSCRN #### [facility] [address] [place] [address] Dr. Shobha Ruffin EGFR-AF MOZAMBICAN >60 Normal >=60 [facility] Comment on above: Performed By: #### O BSCRN #### [facility] [address] [place] [address] Dr. Shobha Ruffin EGFR-NON AF MOZAMBICAN 58 mL/min/1.73m2 Critically low >=60 [facility] Comment on above: Performed By: #### O BSCRN #### [facility] [address] [place] [address] Dr. Shobha Ruffin OCC BLD IMMUNO SCREENon 01-08 OCCULT BLOOD Negative Normal NEGATIVE [facility] Comment on above: Performed By: #### O BSCRN #### [facility] [address] [place] [address] Dr. Shobha Ruffin T4, T3U, FTI LABCORPon 01-27 Free Thyroxine Index 2.2 Normal 1.2-4.9 [facility] Comment on above: Performed By: #### R ENAL, URIC, MG #### [facility] [address] [place] [address] Dr. Shobha Ruffin T3 Uptake 27 % Normal 24-39 [facility] Comment on above: Performed By: #### R ENAL, URIC, MG #### [facility] [address] [place] [address] Dr. Shobha Ruffin T4 [Mass/Vol] 8.0 ug/dL Normal 4.5-12.0 [facility] Comment on above: Performed By: #### R ENAL, URIC, MG #### [facility] [address] [place] [address] Dr. Shobha Ruffin CBC AUTO DIFFon 01-26-2022 BASO # 0.1 103/ul Normal 0.0-0.1 [facility] Comment on above: Performed By: #### R ENAL, URIC, MG #### [facility] [address] [place] [address] Dr. Shobha Ruffin Basophils/100 WBC (Bld) 0.9 % Normal 0.2-2.0 [facility] Comment on above: Performed By: #### R ENAL, URIC, MG #### [facility] [address] [place] [address] Dr. Shobha Ruffin EO # 0.3 103/ul Normal 0.0-0.7 [facility] Comment on above: Performed By: #### R ENAL, URIC, MG #### [facility] [address] [place] [address] Dr. Shobha Ruffin Eosinophils/100 WBC (Bld) 2.8 % Normal 0.9-7.0 [facility] Comment on above: Performed By: #### R ENAL, URIC, MG #### [facility] [address] [place] [address] Dr. Shobha Ruffin Erythrocyte distribution width (RBC) [Ratio] 13.6 % Normal 11.0-15.0 [facility] Comment on above: Performed By: #### R ENAL, URIC, MG #### [facility] [address] [place] [address] Dr. Shobha Ruffin Hematocrit (Bld) [Volume fraction] 35.4 % Critically low 36.0-48.0 [facility] Comment on above: Performed By: #### R ENAL, URIC, MG #### [facility] [address] [place] [address] Dr. Shobha Ruffin Hemoglobin (Bld) [Mass/Vol] 11.5 g/dL Critically low 12.0-16.0 [facility] Comment on above: Performed By: #### R ENAL, URIC, MG #### [facility] [address] [place] [address] Dr. Shobha Ruffin IG # 0.04 10e3/ul Critically high 0.00-0.03 [facility] Comment on above: Performed By: #### R ENAL, URIC, MG #### [facility] [address] [place] [address] Dr. Shobha Ruffin IG % 0.4 % Normal 0.0-0.5 [facility] Comment on above: Performed By: #### R ENAL, URIC, MG #### [facility] [address] [place] [address] Dr. Shobha Ruffin LYMPH # 1.9 103/ul Normal 1.2-3.8 [facility] Comment on above: Performed By: #### R ENAL, URIC, MG #### [facility] [address] [place] [address] Dr. Shobha Ruffin Lymphocytes/100 WBC (Bld) 20.9 % Normal 20.5-60.0 [facility] Comment on above: Performed By: #### R ENAL, URIC, MG #### [facility] [address] [place] [address] Dr. Shobha Ruffin MANUAL DIFF REQ NO Normal [facility] Comment on above: Performed By: #### R ENAL, URIC, MG #### [facility] [address] [place] [address] Dr. Shobha Ruffin MCH (RBC) [Entitic mass] 29.4 pg Normal 26.7-34.0 [facility] Comment on above: Performed By: #### R ENAL, URIC, MG #### [facility] [address] [place] [address] Dr. Shobha Ruffin MCHC (RBC) [Mass/Vol] 32.5 g/dL Normal 29.9-35.2 [facility] Comment on above: Performed By: #### R ENAL, URIC, MG #### [facility] [address] [place] [address] Dr. Shobha Ruffin MCV (RBC) [Entitic vol] 90.5 fL Normal 81.0-99.0 [facility] Comment on above: Performed By: #### R ENAL, URIC, MG #### [facility] [address] [place] [address] Dr. Shobha Ruffin MONO # 0.8 103/ul Normal 0.3-0.8 [facility] Comment on above: Performed By: #### R ENAL, URIC, MG #### [facility] [address] [place] [address] Dr. Shobha Ruffin Monocytes/100 WBC (Bld) 9.2 % Normal 1.7-12.0 [facility] Comment on above: Performed By: #### R ENAL, URIC, MG #### [facility] [address] [place] [address] Dr. Shobha Ruffin NEUT # 5.9 103/ul Normal 1.4-6.5 [facility] Comment on above: Performed By: #### R ENAL, URIC, MG #### [facility] [address] [place] [address] Dr. Shobha Ruffin Neutrophils/100 WBC (Bld) 65.8 % Normal 43.0-75.0 [facility] Comment on above: Performed By: #### R ENAL, URIC, MG #### [facility] [address] [place] [address] Dr. Shobha Ruffin Platelet mean volume (Bld) [Entitic vol] 8.9 fL Critically low 9.5-13.5 [facility] Comment on above: Performed By: #### R ENAL, URIC, MG #### [facility] [address] [place] [address] Dr. Shobha Ruffin PLT 346 103/ul Normal 150-450 [facility] Comment on above: Performed By: #### R ENAL, URIC, MG #### [facility] [address] [place] [address] Dr. Shobha Ruffin RBC 3.91 106/ul Critically low 4.20-5.40 [facility] Comment on above: Performed By: #### R ENAL, URIC, MG #### [facility] [address] [place] [address] Dr. Shobha Ruffin WBC 8.9 103/ul Normal 4.0-11.0 [facility] Comment on above: Performed By: #### R ENAL, URIC, MG #### [facility] [address] [place] [address] Dr. Shobha Ruffin GLYCOHEMOGLOBIN A1Con 2021 ADA RECOMMENDATION SEE BELOW Normal [facility] Comment on above: Result Comment: ADA RECOMMENDED LIMIT 4.0 - 6.0 ADA THERAPEUTIC TARGET < 7.0 ACTION SUGGESTED > 7.0 Performed By: #### O BSCRN #### [facility] [address] [place] [address] Dr. Shobha Ruffin Glucose [Mass/Vol] 123 mg/dL Normal [facility] Comment on above: Performed By: #### O BSCRN #### [facility] [address] [place] [address] Dr. Shobha Ruffin HbA1c (Bld) [Mass fraction] 5.9 % Normal 4.5-6.2 [facility] Comment on above: Performed By: #### O BSCRN #### [facility] [address] [place] [address] Dr. Shobha Ruffin IRONon 01-26-2022 Iron [Mass/Vol] 97.0 ug/dL Normal 50.0-170.0 [facility] Comment on above: Performed By: #### R ENAL, URIC, MG #### [facility] [address] [address] [address] Shobha Ruffin LIPID PROFILEon 01-26-2022 CHOL-HDL RATIO NORM SEE BELOW Normal [facility] Comment on above: Result Comment: 3.3 - 4.4 LOW RISK 4.4 - 7.1 AVERAGE RISK 7.1 - 11.0 MODERATE RISK >11.0 HIGH RISK Performed By: #### R ENAL, URIC, MG #### [facility] [address] [address] [address] Shobha Ruffin Cholesterol [Mass/Vol] 284 mg/dL Critically high <=200 [facility] Comment on above: Performed By: #### R ENAL, URIC, MG #### [facility] [address] [address] [address] Shobha Ruffin Cholesterol in HDL [Mass/Vol] 84 mg/dL Critically high 40-60 [facility] Comment on above: Performed By: #### R ENAL, URIC, MG #### [facility] [address] [address] [address] Shobha Ruffin Cholesterol in LDL [Mass/Vol] 184.6 mg/dL Normal [facility] Comment on above: Performed By: #### R ENAL, URIC, MG #### [facility] [address] [address] [address] Shobha Ruffin Cholesterol.total/Cho lesterol in HDL [Mass ratio] 3.4 {ratio} Normal [facility] Comment on above: Performed By: #### R ENAL, URIC, MG #### [facility] [address] [place] [address] Dr. Shobha Ruffin HDL NORMAL > or = 60 mg/dl - LO W CARDIOVASCULAR RISK <40 mg/dl - HIGH CARDIOVASCULAR RISK Normal [facility] Comment on above: Performed By: #### R ENAL, URIC, MG #### [facility] [address] [place] [address] Dr. Shobha Ruffin LDL CALC NORMAL SEE BELOW Normal [facility] Comment on above: Result Comment: <100 mg/dl OPTIMAL 100 - 129 mg/dl NEAR OR ABOVE OPTIMAL 130 - 159 mg/dl BORDERLINE HIGH 160 - 189 mg/dl HIGH >190 mg/dl VERY HIGH Performed By: #### R ENAL, URIC, MG #### [facility] [address] [address] [address] Shobha Ruffin Triglyceride [Mass/Vol] 77 mg/dL Normal <=150 [facility] Comment on above: Performed By: #### R ENAL, URIC, MG #### [facility] [address] [place] [address] Dr. Shobha Ruffin VLDL CALC 15.4 mg/dL Normal [facility] Comment on above: Performed By: #### R ENAL, URIC, MG #### [facility] [address] [place] [address] Dr. Shobha Ruffin PROF 14(COMP METB)on 022 Albumin [Mass/Vol] 3.5 g/dL Normal 3.4-5.0 [facility] Comment on above: Performed By: #### R ENAL, URIC, MG #### [facility] [address] [place] [address] Dr. Shobha Ruffin Albumin/Globulin [Mass ratio] 1.1 {ratio} Normal [facility] Comment on above: Performed By: #### R ENAL, URIC, MG #### [facility] [address] [place] [address] Dr. Shobha Ruffin ALP [Catalytic activity/Vol] 79 U/L Normal 46-116 [facility] Comment on above: Performed By: #### R ENAL, URIC, MG #### [facility] [address] [place] [address] Dr. Shobha Ruffin ALT [Catalytic activity/Vol] 28 U/L Normal 14-59 [facility] Comment on above: Performed By: #### R ENAL, URIC, MG #### [facility] [address] [place] [address] Dr. Shobha Ruffin Anion gap [Moles/Vol] 9.3 mmol/L Normal [facility] Comment on above: Performed By: #### R ENAL, URIC, MG #### [facility] [address] [place] [address] Dr. Shobha Ruffin AST [Catalytic activity/Vol] 12 U/L Critically low 15-37 [facility] Comment on above: Performed By: #### R ENAL, URIC, MG #### [facility] [address] [address] [address] Shobha Ruffin Bilirubin [Mass/Vol] 0.6 mg/dL Normal 0.2-1.0 [facility] Comment on above: Performed By: #### R ENAL, URIC, MG #### [facility] [address] [place] [address] Dr. Shobha Ruffin Calcium [Mass/Vol] 9.0 mg/dL Normal 8.5-10.1 [facility] Comment on above: Performed By: #### R ENAL, URIC, MG #### [facility] [address] [place] [address] Dr. Shobha Ruffin Chloride [Moles/Vol] 103 mmol/L Normal 98-107 [facility] Comment on above: Performed By: #### R ENAL, URIC, MG #### [facility] [address] [place] [address] Dr. Shobha Ruffin CO2 [Moles/Vol] 28.9 mmol/L Normal 21.0-32.0 [facility] Comment on above: Performed By: #### R ENAL, URIC, MG #### [facility] [address] [place] [address] Dr. Shobha Ruffin Creatinine [Mass/Vol] 1.02 mg/dL Normal 0.55-1.02 [facility] Comment on above: Performed By: #### R ENAL, URIC, MG #### [facility] [address] [place] [address] Dr. Shobha Ruffin EGFR-AF MOZAMBICAN >60 Normal >=60 [facility] Comment on above: Performed By: #### R ENAL, URIC, MG #### [facility] [address] [place] [address] Dr. Shobha Ruffin EGFR-NON AF MOZAMBICAN 54 mL/min/1.73m2 Critically low >=60 [facility] Comment on above: Performed By: #### R ENAL, URIC, MG #### [facility] [address] [address] [address] Shobha Ruffin Globulin (S) [Mass/Vol] 3.3 g/dL Normal [facility] Comment on above: Performed By: #### R ENAL, URIC, MG #### [facility] [address] [address] [address] Shobha Ruffin Glucose [Mass/Vol] 100 mg/dL Normal 74-106 [facility] Comment on above: Performed By: #### R ENAL, URIC, MG #### [facility] [address] [address] [address] Shobha Ruffin Potassium [Moles/Vol] 4.2 mmol/L Normal 3.5-5.1 [facility] Comment on above: Performed By: #### R ENAL, URIC, MG #### [facility] [address] [place] [address] Dr. Shobha Ruffin Protein [Mass/Vol] 6.8 g/dL Normal 6.4-8.2 [facility] Comment on above: Performed By: #### R ENAL, URIC, MG #### [facility] [address] [address] [address] Shobha Ruffin Sodium [Moles/Vol] 137 mmol/L Normal 136-145 [facility] Comment on above: Performed By: #### R ENAL, URIC, MG #### [facility] [address] [address] [address] Shobha Ruffin Urea nitrogen [Mass/Vol] 20.0 mg/dL Critically high 7.0-18.0 [facility] Comment on above: Performed By: #### R ENAL, URIC, MG #### [facility] [address] [address] [address] Shobha Ruffin Urea nitrogen/Creatinine [Mass ratio] 19.6 mg/mg Normal [facility] Comment on above: Performed By: #### R ENAL, URIC, MG #### [facility] [address] [address] [address] Shobha Ruffin TSHon 01-26-2022 TSH 0.649 uIU/mL Normal 0.358-3.74 0 [facility] Comment on above: Performed By: #### R KATIANA BROWN MG #### [facility] [address] [address] [address] Shohba Ruffin XR LSPINE MIN 4 VIEWSon 01-08 [...] ROSA BELLO Date: 2022-01-26 10:35 Normal [facility] Covid-19 PCR (CVDTB)on SARS-CoV-2 (COVID-19) RNA CONRADO+probe Ql (Unsp spec) Detected Critically abnormal NOT DETECTED [facility] Comment on above: Result Comment: This test is not yet approved or cleared by the [place] FDA. When there are no FDA-approved or cleared tests available, and other criteria are met, FDA can make tests available under an emergency access mechanism called an Emergency Use Authorization (EUA). The EUA for this test is supported by the [place] of Health and Human Service's (HHS's) declaration [...] longer be used). Performed By: #### C VDTB #### [facility] [address] [place], [place] [address] Dr. Shobha Jaramillo 12-23-2021 JORDY Office Visit ([id number] ) MARY GOODE ([id number]) 1950 F Date Time Provider Department 12/23/21 10:00 AM FREDA POP [id number] During your visit today, we recorded the following information about you: Temperature Pulse Blood pressure Weight 97.2 degrees 58/minute 147/55 73.9 kg Height 1.6 m Freda Pop APRN.CNP 12/23/2021 10:45 AM Signed GENERAL SURGERY CLINIC FOLLOW UP NOTE Clinic Date: 12/23/2021 Mary Goode, 71 year old [address] [place] [id number] CHIEF COMPLAINT: Patient presents with: Post Op [...] Freda Pop APRN.CNP General Surgery Digestive Disease [place] December 22, 2021 Joan Grimaldo MA 12/23/2021 [...] activity as tolerated Referring Provider: ATIF MENDEZ [[id number]] Allergies As of Date: 12/23/2021 (No Known Allergies) Date Reviewed: 12/23/2021 Reviewed by: Freda Pop APRN.CNP - Fully Assessed Reason for Visit: (more content not included)... Normal [facility] PTH INTACTon 11-27-2021 PTH, Intact 36 pg/mL Normal 15-65 [facility] Comment on above: Performed By: #### P THINT #### [facility] [address] [place] [address] Dr. Shobha Ruffin FERRITINon 11-26-2021 Ferritin [Mass/Vol] 122.0 ng/mL Normal 8.0-252.0 [facility] Comment on above: Performed By: #### O BSCRN #### [facility] [address] [address] [address] Shobha Ruffin HEMOGRAM AND PLATELon 2021 Hematocrit (Bld) [Volume fraction] 36.0 % Normal 36.0-48.0 [facility] Comment on above: Performed By: #### H H #### [facility] [address] [place] [address] Dr. Shobha Ruffin Hemoglobin (Bld) [Mass/Vol] 11.8 g/dL Critically low 12.0-16.0 [facility] Comment on above: Performed By: #### H H #### [facility] [address] [place] [address] Dr. Shobha Ruffin MCH (RBC) [Entitic mass] 29.7 pg Normal 26.7-34.0 [facility] Comment on above: Performed By: #### H H #### [facility] [address] [place] [address] Dr. Shobha Ruffin MCHC (RBC) [Mass/Vol] 32.8 g/dL Normal 29.9-35.2 [facility] Comment on above: Performed By: #### H H #### [facility] [address] [place] [address] Dr. Shobha Ruffin MCV (RBC) [Entitic vol] 90.7 fL Normal 81.0-99.0 [facility] Comment on above: Performed By: #### H H #### [facility] [address] [place] [address] Dr. Shobha Ruffin PLT 417 103/ul Normal 150-450 [facility] Comment on above: Performed By: #### H H #### [facility] [address] [place] [address] Dr. Shobha Ruffin RBC 3.97 106/ul Critically low 4.20-5.40 [facility] Comment on above: Performed By: #### H H #### [facility] [address] [place] [address] Dr. Shobha Ruffin WBC 7.9 103/ul Normal 4.0-11.0 [facility] Comment on above: Performed By: #### H H #### [facility] [address] [place] [address] Dr. Shobha Ruffin IRON AND TIBCon 11-26-2021 % SATURATION 28.2 % Normal [facility] Comment on above: Performed By: #### O BSCRN #### [facility] [address] [place] [address] Dr. Shobha Ruffin Iron [Mass/Vol] 83.0 ug/dL Normal 50.0-170.0 [facility] Comment on above: Performed By: #### O BSCRN #### [facility] [address] [place] [address] Dr. Shobha Ruffin TIBC DIRECT 294.0 ug/dL Normal 250.0-450. 0 [facility] Comment on above: Performed By: #### O BSCRN #### [facility] [address] [place] [address] Dr. Shobha Ruffin MAGNESIUMon 11-26-2021 Magnesium [Mass/Vol] 1.8 mg/dL Normal 1.8-2.4 [facility] Comment on above: Performed By: #### R ENAL, URIC, MG #### [facility] [address] [place] [address] Dr. Shobha Ruffin RENAL FUNCTION PANELon 11-26 Albumin [Mass/Vol] 3.6 g/dL Normal 3.4-5.0 [facility] Comment on above: Performed By: #### R ENAL, URIC, MG #### [facility] [address] [place] [address] Dr. Shobha Ruffin Calcium [Mass/Vol] 9.3 mg/dL Normal 8.5-10.1 [facility] Comment on above: Performed By: #### R ENAL, URIC, MG #### [facility] [address] [place] [address] Dr. Shobha Ruffin Chloride [Moles/Vol] 99 mmol/L Normal 98-107 [facility] Comment on above: Performed By: #### R ENAL, URIC, MG #### [facility] [address] [place] [address] Dr. Shobha Ruffin CO2 [Moles/Vol] 28.6 mmol/L Normal 21.0-32.0 [facility] Comment on above: Performed By: #### R ENAL, URIC, MG #### [facility] [address] [place] [address] Dr. Shobha Ruffin Creatinine [Mass/Vol] 1.18 mg/dL Critically high 0.55-1.02 [facility] Comment on above: Performed By: #### R ENAL, URIC, MG #### [facility] [address] [place] [address] Dr. Shobha Ruffin EGFR-AF MOZAMBICAN 55 mL/min/1.73m2 Critically low >=60 [facility] Comment on above: Performed By: #### R ENAL, URIC, MG #### [facility] [address] [place] [address] Dr. Shobha Ruffin EGFR-NON AF MOZAMBICAN 45 mL/min/1.73m2 Critically low >=60 [facility] Comment on above: Performed By: #### R ENAL, URIC, MG #### [facility] [address] [place] [address] Dr. Shobha Ruffin Glucose [Mass/Vol] 90 mg/dL Normal 74-106 [facility] Comment on above: Performed By: #### R ENAL, URIC, MG #### [facility] [address] [place] [address] Dr. Shobha Ruffin Phosphate [Mass/Vol] 4.8 mg/dL Critically high 2.6-4.7 [facility] Comment on above: Performed By: #### R ENAL, URIC, MG #### [facility] [address] [place] [address] Dr. Shobha Ruffin Potassium [Moles/Vol] 4.1 mmol/L Normal 3.5-5.1 [facility] Comment on above: Performed By: #### R ENAL, URIC, MG #### [facility] [address] [place] [address] Dr. Shobha Ruffin Sodium [Moles/Vol] 136 mmol/L Normal 136-145 [facility] Comment on above: Performed By: #### R ENAL, URIC, MG #### [facility] [address] [place] [address] Dr. Shobha Ruffin Urea nitrogen [Mass/Vol] 20.0 mg/dL Critically high 7.0-18.0 [facility] Comment on above: Performed By: #### R ENAL, URIC, MG #### [facility] [address] [address] [address] Shobha Ruffin UA RANDOM W/MICROSCOPICon BACTERIA TRACE Abnormal NONE SEEN [facility] Comment on above: Performed By: #### R ENAL, URIC, MG #### [facility] [address] [place] [address] Dr. Shobha Ruffin Bilirubin Ql (U) Negative Normal NEGATIVE [facility] Comment on above: Performed By: #### R ENAL, URIC, MG #### [facility] [address] [place] [address] Dr. Shobha Ruffin CAST SEEN Abnormal NONE SEEN [facility] Comment on above: Performed By: #### R ENAL, URIC, MG #### [facility] [address] [place] [address] Dr. Shobha Ruffin Clarity (U) CLEAR Normal CLEAR [facility] Comment on above: Performed By: #### R ENAL, URIC, MG #### [facility] [address] [place] [address] Dr. Shobha Ruffin Color (U) YELLOW Normal YELLOW [facility] Comment on above: Performed By: #### R ENAL, URIC, MG #### [facility] [address] [place] [address] Dr. Shobha Ruffin Crystals LM Nom (Urine sed) NONE SEEN Normal NONE SEEN [facility] Comment on above: Performed By: #### R ENAL, URIC, MG #### [facility] [address] [place] [address] Dr. Shobha Ruffin Epithelial cells LM Ql (Urine sed) FEW Abnormal NONE SEEN /RARE [facility] Comment on above: Performed By: #### R ENAL, URIC, MG #### [facility] [address] [place] [address] Dr. Shobha Ruffin Glucose Ql (U) Negative Normal NEGATIVE [facility] Comment on above: Performed By: #### R ENAL, URIC, MG #### [facility] [address] [place] [address] Dr. Shobha Ruffin Hemoglobin Ql (U) Negative Normal NEGATIVE [facility] Comment on above: Performed By: #### R ENAL, URIC, MG #### [facility] [address] [address] [address] Shobha Ruffin HYALINE CAST RARE Normal [facility] Comment on above: Performed By: #### R ENAL, URIC, MG #### [facility] [address] [address] [address] Shobha Ruffin Ketones Ql (U) TRACE Abnormal NEGATIVE [facility] Comment on above: Performed By: #### R ENAL, URIC, MG #### [facility] [address] [place] [address] Dr. Shobha Ruffin LEUKOCYTES TRACE Abnormal NEGATIVE [facility] Comment on above: Performed By: #### R ENAL, URIC, MG #### [facility] [address] [place] [address] Dr. Shobha Ruffin MUCOUS TRACE Abnormal NONE SEEN [facility] Comment on above: Performed By: #### R ENAL, URIC, MG #### [facility] [address] [address] [address] Shobha Ruffin Nitrite Ql (U) Negative Normal NEGATIVE [facility] Comment on above: Performed By: #### R ENAL, URIC, MG #### [facility] [address] [place] [address] Dr. Shobha Ruffin pH (U) 7.0 [pH] Normal 5-9 [facility] Comment on above: Performed By: #### R ENAL, URIC, MG #### [facility] [address] [place] [address] Dr. Shobha Ruffin RBC 0-2 Normal 0-2 [facility] Comment on above: Performed By: #### R ENAL, URIC, MG #### [facility] [address] [place] [address] Dr. Shobha Ruffin SPEC GRAVITY 1.015 Normal 1.005-<=1. 025 [facility] Comment on above: Performed By: #### R ENAL, URIC, MG #### [facility] [address] [place] [address] Dr. Shobha Ruffin UA PROTEIN Negative Normal NEGATIVE/ TRACE [facility] Comment on above: Performed By: #### R ENAL, URIC, MG #### [facility] [address] [place] [address] Dr. Shobha Ruffin Urobilinogen Qn (U) 1.0 {Raul'U}/dL Normal 0.2 - 1. 0 [facility] Comment on above: Performed By: #### R ENAL, URIC, MG #### [facility] [address] [place] [address] Dr. Shobha Ruffin WBC 2-5 Abnormal NONE SEEN [facility] Comment on above: Performed By: #### R ENAL, URIC, MG #### [facility] [address] [place] [address] Dr. Shobha Ruffin URIC ACID SERUMon 11-26-2021 Urate [Mass/Vol] 3.2 mg/dL Normal 2.6-6.0 [facility] Comment on above: Performed By: #### R ENAL, URIC, MG #### [facility] Laboratory [address] [place] [address] Dr. Shobha Ruffin URINE T PROTEIN CREAT RATIOo n 11-26-2021 Protein (U) [Mass/Vol] 24.2 mg/dL Critically high <=12.0 [facility] Comment on above: Performed By: #### R ENAL, URIC, MG #### [facility] Laboratory [address] [place] [address] Dr. Shobha Ruffin UR PROT CREAT RAT 0.16 Normal [facility] Comment on above: Performed By: #### R ENAL, URIC, MG #### [facility] Laboratory [address] [place] [address] Dr. Shobha Ruffin URINE CREAT 152.18 mg/dL Normal 20.00-300. 00 [facility] Comment on above: Performed By: #### R ENAL, URIC, MG #### [facility] Laboratory [address] [place] [address] Dr. Shobha Ruffin VITAMIN D 25 OHon 11-26-2021 VIT D 25-OH 38.4 ng/mL Normal [facility] Comment on above: Performed By: #### O BSCRN #### [facility] Laboratory [address] [address] [address] Shobha Ruffin VIT D RANGES SEE BELOW Normal [facility] Comment on above: Result Comment: <20 ng/mL Vit D deficient 20 - <30 ng/mL Vit D insufficient 30 - 100 ng/mL Vit D sufficient >100 ng/mL Potential Toxicity Performed By: #### O BSCRN #### [facility] Laboratory [address] [address] [address] Shobha Ruffin Basic metabolic 2000 panelon 11-17-2021 Anion gap [Moles/Vol] 14 mmol/L Normal 9-18 [facility] Comment on above: Order Comment: Speci men Type: BLOOD SPECIMEN Ordering Facility: [facility] Address: [address] [place] [address] Performed By: #### 1 9123-9, 03499-1, 277- #### [facility] CLIA [id number] [address] [place] [address] [place] Calcium [Mass/Vol] 9.6 mg/dL Normal 8.5-10.2 [facility] Comment on above: Order Comment: Speci men Type: BLOOD SPECIMEN Ordering Facility: [facility] Address: [address] [place] [address] Performed By: #### 1 9123-9, 45415-6, 2776- #### [facility] CLIA [id number] [address] [place] [address] [place] Chloride [Moles/Vol] 95 mmol/L Low 97-105 [facility] Comment on above: Order Comment: Speci men Type: BLOOD SPECIMEN Ordering Facility: [facility] Address: [address] [place] [address] Performed By: #### 1 9123-9, 54286-2, 2776- #### [facility] CLIA [id number] [address] [place] [address] [place] CO2 [Moles/Vol] 23 mmol/L Normal 22-30 [facility] Comment on above: Order Comment: Speci men Type: BLOOD SPECIMEN Ordering Facility: [facility] Address: [address] [place] [address] [address] [place] [phone] Performed By: #### 1 9123-9, 48646-9, 277- #### [facility] CLIA [id number] [address] [place] [address] [place] Creatinine [Mass/Vol] 0.91 mg/dL Normal 0.58-0.96 [facility] Comment on above: Order Comment: Param jarquin Type: BLOOD SPECIMEN Ordering Facility: [facility] Address: [address] [address] Performed By: #### 1 9123-9, 37067-3, 2776- #### [facility] CLIA [id number] [address] [place] [address] [place] ESTIMATED GLOMERULAR FILTRATION RATE 69 mL/min/1.73m??? Normal >=60 [facility] Comment on above: Order Comment: Param jarquin Type: BLOOD SPECIMEN Ordering Facility: [facility] Address: [address] [place] [address] Result Comment: Gabriela mated Glomerular Filtration Rate [...] actual GFR. Performed By: #### 1 9123-9, 69032-0, 2776- #### [facility] CLIA [id number] [address] [place] [address] [place] Glucose [Mass/Vol] 110 mg/dL High 74-99 [facility] Comment on above: Order Comment: Param jarquin Type: BLOOD SPECIMEN Ordering Facility: [facility] Address: [address] [address] Result Comment: The [place] Diabetes Association (ADA) provides guidance for cutoff [...] Standards of Medical Care in Diabetes 2016, [place] [employer]. Diabetes Care. 2016.39(Suppl 1). Performed By: #### 1 9123-9, 89479-2, 2776-05 #### [facility] CLIA [id number] [address] [place] [address] [place] Potassium [Moles/Vol] 3.6 mmol/L Low 3.7-5.1 [facility] Comment on above: Order Comment: Param jarquin Type: BLOOD SPECIMEN Ordering Facility: [facility] Address: [address] [place] [address] Performed By: #### 1 9123-9, 71378-9, 2776-05 #### [facility] CLIA [id number] [address] [place] [address] [place] Sodium [Moles/Vol] 132 mmol/L Low 136-144 [facility] Comment on above: Order Comment: Param jarquin Type: BLOOD SPECIMEN Ordering Facility: [facility] Address: [address] [place] [address] Performed By: #### 1 9123-9, 87710-7, 2776-05 #### [facility] CLIA [id number] [address] [place] [address] [place] Urea nitrogen [Mass/Vol] 13 mg/dL Normal 7-21 [facility] Comment on above: Order Comment: Param jarquin Type: BLOOD SPECIMEN Ordering Facility: [facility] Address: [address] [place] [address] Performed By: #### 1 9123-9, 99617-9, 2776-05 #### [facility] CLIA [id number] [address] [place] [address] [place] CBC W Auto Differential pane l (Bld)on 11-17-2021 Basophils (Bld) [#/Vol] 10*3/uL Normal <0.11 [facility] Comment on above: Order Comment: Speci men Type: BLOOD SPECIMENOrdering Facility: [facility] Address: [address] [place] [address] Performed By: #### 5 7021-8 ####[facility] [id number] [address] STATES [facility] Basophils/100 WBC (Bld) 0.1 % Normal [facility] Comment on above: Order Comment: Speci men Type: BLOOD SPECIMENOrdering Facility: [facility] Address: [address] [place] [address] Performed By: #### 5 7021-8 ####[facility]ATORYCLIA [id number] [address] Differential cell count method Nom (Bld) Auto Normal [facility] Comment on above: Order Comment: Speci men Type: BLOOD SPECIMENOrdering Facility: [facility] Address: [address] [place] [address] Performed By: #### 5 7021-8 ####[facility] LABORATORYCLIA [id number] [address] [place] Eosinophils (Bld) [#/Vol] 10*3/uL Normal <0.46 [facility] Comment on above: Order Comment: Speci men Type: BLOOD SPECIMENOrdering Facility: [facility] Address: [address] [place] [address] Performed By: #### 5 7021-8 ####[facility] [id number] [address] STATES [facility] Eosinophils/100 WBC (Bld) 0.0 % Normal [facility] Comment on above: Order Comment: Speci men Type: BLOOD SPECIMENOrdering Facility: [facility] Address: [address] [place] [address] Performed By: #### 5 7021-8 ####[facility] [id number] [address] Erythrocyte distribution width (RBC) [Ratio] 12.6 % Normal 11.5-15.0 [facility] Comment on above: Order Comment: Speci men Type: BLOOD SPECIMENOrdering Facility: [facility] Address: [address] [place] [address] Performed By: #### 5 7021-8 ####[facility] LAB[facility]ATORYCLIA [id number] [address] [place] Hematocrit (Bld) [Volume fraction] 39.9 % Normal 36.0-46.0 [facility] Comment on above: Order Comment: Speci men Type: BLOOD SPECIMENOrdering Facility: [facility] Address: [address] [place] [address] Performed By: #### 5 7021-8 ####[facility]ATORYCLIA [id number] [address] [place] Hemoglobin (Bld) [Mass/Vol] 13.4 g/dL Normal 11.5-15.5 [facility] Comment on above: Order Comment: Speci men Type: BLOOD SPECIMENOrdering Facility: [facility] Address: [address] [place] [address] Performed By: #### 5 7021-8 ####[facility] LAB[facility]ATORYCLIA [id number] [address] [place] IMMATURE GRAN % 0.4 % Normal [facility] Comment on above: Order Comment: Speci men Type: BLOOD SPECIMENOrdering Facility: [facility] Address: [address] [place] [address] Performed By: #### 5 7021-8 ####[facility]ATORYCLIA [id number] [address] IMMATURE GRAN ABS 0.04 k/uL Normal <0.10 [facility] Comment on above: Order Comment: Speci men Type: BLOOD SPECIMENOrdering Facility: [facility] Address: [address] [place] [address] Performed By: #### 5 7021-8 ####[facility]ATORYCLIA [id number] [address] [place] Lymphocytes (Bld) [#/Vol] 1.25 10*3/uL Normal 1.00-4.00 [facility] Comment on above: Order Comment: Speci men Type: BLOOD SPECIMENOrdering Facility: [facility] Address: [address] [place] [address] Performed By: #### 5 7021-8 ####[facility] [id number] [address] Lymphocytes/100 WBC (Bld) 11.6 % Normal [facility] Comment on above: Order Comment: Speci men Type: BLOOD SPECIMENOrdering Facility: [facility] Address: [address] [place] [address] Performed By: #### 5 7021-8 ####[facility]ORATORYCLIA [id number] [address] [place] MCH (RBC) [Entitic mass] 29.4 pg Normal 26.0-34.0 [facility] Comment on above: Order Comment: Speci men Type: BLOOD SPECIMENOrdering Facility: [facility] Address: [address] [place] [address] Performed By: #### 5 7021-8 ####[facility] [id number] [address] [place] MCHC (RBC) [Mass/Vol] 33.6 g/dL Normal 30.5-36.0 [facility] Comment on above: Order Comment: Speci men Type: BLOOD SPECIMENOrdering Facility: [facility] Address: [address] [place] [address] Performed By: #### 5 7021-8 ####[facility] LABORATORYCLIA [id number] [address] STATES [facility] MCV (RBC) [Entitic vol] 87.5 fL Normal 80.0-100.0 [facility] Comment on above: Order Comment: Speci men Type: BLOOD SPECIMENOrdering Facility: [facility] Address: [address] [address] Performed By: #### 5 7021-8 ####[facility] LABORATORYCLIA [id number] [address] [id number] [place] Monocytes (Bld) [#/Vol] 1.20 10*3/uL High <0.87 [facility] Comment on above: Order Comment: Speci men Type: BLOOD SPECIMENOrdering Facility: [facility] Address: [address] [place] [address] Performed By: #### 5 7021-8 ####[facility] LABORATORYCLIA [id number] [place] [address] [place] Monocytes/100 WBC (Bld) 11.1 % Normal [facility] Comment on above: Order Comment: Speci men Type: BLOOD SPECIMENOrdering Facility: [facility] Address: [address] [place] [address] Performed By: #### 5 7021-8 ####[facility] LABORATORYCLIA [id number] [place] [address] [place] Neutrophils (Bld) [#/Vol] 8.32 10*3/uL High 1.45-7.50 [facility] Comment on above: Order Comment: Speci men Type: BLOOD SPECIMENOrdering Facility: [facility] Address: [address] [place] [address] Performed By: #### 5 7021-8 ####[facility]ORYCLIA [id number] [address] [id number] [place] Neutrophils/100 WBC (Bld) 76.8 % Normal [facility] Comment on above: Order Comment: Speci men Type: BLOOD SPECIMENOrdering Facility: [facility] Address: [address] [place] [address] Performed By: #### 5 7021-8 ####[facility]ORATORYCLIA [id number] [place] [address] [place] Nucleated RBC (Bld) [#/Vol] 10*3/uL Normal <0.01 [facility] Comment on above: Order Comment: Speci men Type: BLOOD SPECIMENOrdering Facility: [facility] Address: [address] [place] [address] Performed By: #### 5 7021-8 ####[facility]ATORYCLIA [id number] [address] [place] Nucleated RBC/100 WBC (Bld) [Ratio] 0.0 /100 WBC Normal [facility] Comment on above: Order Comment: Speci men Type: BLOOD SPECIMENOrdering Facility: [facility] Address: [address] [place] [address] Performed By: #### 5 7021-8 ####[facility]ORATORYCLIA [id number] [place] [address] [place] Platelet mean volume (Bld) [Entitic vol] 9.6 fL Normal 9.0-12.7 [facility] Comment on above: Order Comment: Speci men Type: BLOOD SPECIMENOrdering Facility: [facility] Address: [address] [place] [address] Performed By: #### 5 7021-8 ####[facility]IA [id number] [place] [address] [place] Platelets (Bld) [#/Vol] 333 10*3/uL Normal 150-400 [facility] Comment on above: Order Comment: Speci men Type: BLOOD SPECIMENOrdering Facility: [facility] Address: [address] [place] [address] Performed By: #### 5 7021-8 ####[facility]ATORYCLIA [id number] [place] [address] [place] RBC (Bld) [#/Vol] 4.56 10*6/uL Normal 3.90-5.20 [facility] Comment on above: Order Comment: Speci men Type: BLOOD SPECIMENOrdering Facility: [facility] Address: [address] [place] [address] Performed By: #### 5 7021-8 ####[facility]ORATORYCLIA [id number] [address] WBC (Bld) [#/Vol] 10.82 10*3/uL Normal 3.70-11.00 [facility] Comment on above: Order Comment: Param jarquin Type: BLOOD SPECIMENOrdering Facility: [facility] Address: [address] [phone] Performed By: #### 5 7021-8 ####[facility]CLIA [id number] [address] CNDSon 11-17-2021 CNDS HNO ID: [id number] Author: Zhane Rasmussen MD Service: General Surgery [...] performed HOSPITAL COURSE: You were admitted to [facility] on 11/16/2021 to undergo the above [...] MG TA (more content not included)... Normal [facility] Magnesium SerPl-mCncon 11-17 Magnesium [Mass/Vol] 1.8 mg/dL Normal 1.7-2.3 [facility] Comment on above: Order Comment: Speci men Type: BLOOD SPECIMENOrdering Facility: [facility] Address: [address] [place], [place] [phone] Performed By: #### 1 9123-9, 89799-4, 2777-1 ####[facility]CLIA [id number] [address] [place] NURSING PROGon 11-17-2021 NURSING PROG HNO ID: [id number] Author: Zakia Champagne RN Service: Nursing Author Type: Registered Nurse Type: Nursing Progress Note Filed: 11/17/2021 10:17 AM Note Text: Nursing Progress Note Patient Name: Mary Goode Patient Location: [id number] Daily Note: 0830: Pt AANDOx3. VSS. RA. Pt up with standby assist to the bathroom to void. Pt up and ambulated in the halls, standby, steady gait. Abdomen tender, bowel sounds hypoactive, no flatus yet. No complaints of nausea. Diet advanced to clear liquids. Lap sites stacie with glue. Pain 3/10, manageable at this time. Encouraged to use IC. Call light in reach. This note was completed by: Zakia Champagne [facility] PT EDon 11-17-2021 PT ED HNO ID: [id number] Author: Kat Pitt DTR Service: Nutrition Therapy Author Type: Roll Over Loader Type: Patient Education Filed: 11/17/2021 11:12 AM [...] November 17, 2021 TIME: 11:08 AM PAGER: [facility] Phosphate SerPl-mCncon 11-17 Phosphate [Mass/Vol] 3.7 mg/dL Normal 2.7-4.8 [facility] Comment on above: Order Comment: Speci men Type: BLOOD SPECIMENOrdering Facility: [facility] Address: [facility] [address] [address] Performed By: #### 1 9123-9, 92752-0, 2777-1 ####[facility]ORYCLIA [id number] [address] [place] ANES POSTPROC EVALon 022 ANES POSTPROC EVAL HNO ID: [id number] Author: Julian Dotson MD Service: Anesthesiology Author [...] November 16, 2021 TIME: 3:25 PM CSN: [id number] [facility] ANES PRE-OPon 11-16-2021 ANES PRE-OP HNO ID: [id number] Author: Julian Dotson MD Service: Anesthesiology Author Type: Anesthesiologist Type: Anesthesia Preprocedure Evaluation Filed: 11/16/2021 12:03 PM Note Text: ANESTHESIOLOGY DAY OF SURGERY NOTE : 1950 Procedure Information Anesthesia Start Date/Time: 11/16/21 1139 Procedure: LAPAROSCOPIC RPR PARAESOPHAGEAL HERNIA W/MESH (N/A Abdomen) Location: [facility] OR[facility] / [facility] Surgeons: Atif Mendez [...] have interviewed and (more content not included)... [facility] BRIEF OP NOTon 11-16-2021 BRIEF OP NOT HNO ID: [id number] Author: Don Minor MD Service: General Surgery Author Type: Resident Type: Brief Op Note Filed: 11/16/2021 2:35 PM Note Text: GENERAL SURGERY BRIEF OP NOTE LOG ID: [id number] Surgery/Procedure Date: 11/16/2021 Incision/Procedure Start Time: 12:11 PM Incision Close/Procedure End Time: 2:32 PM Surgeon(s) and Electronics Design Engineer(s): Surgeon(s) and Role: * Atif Mendez MD [...] 16, 2021 TIME: 2:32 PM PAGER/CONTACT #: [phone] [facility] HISTORY PHYSICALon HISTORY PHYSICAL HNO ID: [id number] Author: Don Minor MD Service: General Surgery [...] DATE: November 16, 2021 TIME: 10:54 AM [facility] NURSING PROGon 11-16-2021 NURSING PROG HNO ID: [id number] Author: Renetta Quintana RN Service: Nursing Author Type: Registered Nurse Type: Nursing Progress Note Filed: 11/16/2021 4:23 PM Note Text: Nursing Progress Note Patient Name: Mary Goode Patient Location: [address]/-GN3J-20 Transfer Note: Patient transferred into room/unit pk3-333 in stable condition. Actions taken: No futher actions taken at this time. Will continue to monitor and check with patient. This note was completed by: Renetta Quintana [facility] NURSING PROG HNO ID: [id number] Author: Arcelia Leal RN Service: Nursing Author Type: Registered Nurse Type: Nursing Progress Note Filed: 11/16/2021 11:08 AM Note Text: PATIENT EDUCATION TOPIC: PROCEDURE / SURGERY: Pre-op Teaching: Protocols PATIENT NAME: Mary Goode PATIENT LOCATION: [place]/[facility] OR POOL READ[place] TO LEARN COGNITIVE ABILITY: [...] (RECOMMENDATION): None Electronically Signed By: Arcelia Leal [facility] OPERATIVE NOon 11-16-2021 OPERATIVE NO HNO ID: [id number] Author: Atif Mendez MD Service: General Surgery Author Type: Physician Type: Operative Report Filed: 11/23/2021 6:07 PM Note Text: [facility] - Operative Report MARY GOODE : 1950 AGE: 70. SEX: F PATIENT TYPE: I [facility] LOCATION: [id number] ATTENDING PHYSICIAN: Atif Mendez MD CSN NUMBER: [id number] DATE OF SURGERY/PROCEDURE: 11/16/2021 INCISION/PROCEDURE START TIME: 12:11 PM INCISION CLOSE/PROCEDURE END TIME: 2:27 PM PREOPERATIVE DIAGNOSIS: Paraesophageal hernia. POSTOPERATIVE DIAGNOSIS: 1. Paraesophageal hernia. 2. Short esophagus. SURGEON: Atif Mendez MD BREAKFAST SUPERVISOR: Don Pérez MD SURGERY/PROCEDURE: 1. Laparoscopic repair [...] a fundectomy was subsequently performed. 3. A 58-Pakistani bougie was used to guide the size [...] the fat pad was brought down. The Sander was passed from the right to the [...] we decided to perform a fundectomy. A 58-Pakistani bougie was passed in the esophagus into [...] complications noted. Because the patient is a Mormon, a Tisseel was used to spray in the operative bed. The 12 mm extraction port site was closed using a cqbtsi-vb-wbriu stitch using Vicryl. The other 12 mm [...] in throughout the operation. Atif Mendez MD TA:[id number] [facility] SURGICAL PATHOLOGYon 022 CASE REPORT Normal [facility] Comment on above: Order Comment: Speci men Type: TISSUE SPECIMENOrdering Facility: [facility] Address: [address] [place] [id number] Result Comment: Surg ica Pathology Report Case: [id number] Authorizing Provider: Atif Mendez MD Collected: 11/16/2021 02:11 PM Ordering Location: [facility] Received: 11/16/2021 03:29 PM Operating Room Pathologist: Alba Neal MD Specimen: STOMACH RESECTION, Fundectomy Performed By: #### S ####[facility] LABCLIA [id number] [address] LABORATORYCLIA [id number] [address] FINAL DIAGNOSIS Normal [facility] Comment on above: Order Comment: Speci men Type: TISSUE SPECIMENOrdering Facility: [facility] Address: [address] [place] [address] Result Comment: Stom ach, excision: - Portion of stomach with fundic gland polyps. - No morphologic evidence of Helicobacter pylori microorganisms. Performed By: #### S ####[facility] LABCLIA [id number] [address] LABORATORYCLIA [id number] [address] OF [facility] FINAL PERFORMING LAB Normal [facility] Comment on above: Order Comment: Speci men Type: TISSUE SPECIMENOrdering Facility: [facility] Address: [address] [place] [address] Result Comment: Diag nostic interpretation performed at [facility], [address] [place], [place] [address] CLIA# [id number] Facing Slitter: Fer Avalos M.D. Performed By: #### S ####[facility] LABCLIA [id number] [address] LABORATORYCLIA [id number] [address] STATES OF [facility] GROSS DESCRIPTION Normal [facility] Comment on above: Order Comment: Speci men Type: TISSUE SPECIMENOrdering Facility: [facility] Address: [address] [place], [place] [address] Result Comment: A. S TOMACH RESECTION. Received [...] The serosal surface is oates and smooth. [place] sections are submitted as follows: A1 3 polyps totally submitted, A2 2 polyps totally submitted, A3 2 polyps totally submitted, A4 uninvolved gastric mucosa. BF November 17, 2021 9:13 AM Gross examination performed at [facility], [address] [place] [address] CLIA # [id number] Performed By: #### S ####[facility] LABCLIA [id number] [address] LABORATORYCLIA [id number] [address] SARS-CoV-2 RNA Resp Ql CONRADO+p kime 11-13-2021 SARS-CoV-2 (COVID-19) RNA CONRADO+probe Ql (Resp) COVID 19 RESULT: SARS-CoV-2 (Agent of COVID-19) Not Detected by RT-PCR or equivalent method. This test was developed and its performance characteristics determined by [facility]'s [facility] [place]. This test has been authorized by FDA under an Emergency Use Authorization (EUA). This test has been validated in accordance with the FDA's Guidance Document Policy for Diagnostics Testing in Laboratories Certified to Perform High Complexity Testing under CLIA prior to Emergency use Authorization for Coronavirus Disease 2019 during the Public Health Emergency issued on July 07, 2019. Test performed by [facility], [facility] [place], [address] [address]. Normal [facility] Comment on above: Performed By: #### 9 4500-6 ####[facility] LABCLIA [id number] [place] [id number] [facility] CNOVon 11-12-2021 CNOV Office Visit ([phone] ) MARY GOODE ([id number]) 1950 F [place] Date Time Provider Department 11/12/21 11:30 AM ATIF MENDEZ [id number] During your visit today, we recorded the following information about you: Temperature Pulse Blood pressure Weight 97.4 degrees 62/minute 140/63 78.5 kg Height 1.6 m Atif Mendez MD 11/12/2021 1:39 PM Signed SURGERY PREOPERATIVE VISIT NOTE Name: Mary Goode Medical Record: [id number] Encounter No.: [id number] Mary Goode is a 70 year old female seen in surgery clinic today for their final preoperative assessment. INTERVAL NOTE: Patient needed to discuss regarding surgery. She is currently scheduled for a paraesophageal hernia repair. 10/21/2021 CT A/P 10/16/2021 esophageal manometry View External Imaging - Miscellaneous Imaging [ID [id number]] 10/07/2021 UGI Scan on 10/27/2021 ?8:25 AM by External Provider: GI BMI 31 PLANNED PROCEDURE: Paraesophageal hernia repair, possible Monico fundoplication. Patient is a [employer]. We have discussed regarding not doing a fundoplication if risk of recurrence is assessed to be on the higher side intraoperatively. 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 Normal [facility] ECHOon 11-06-2021 Echocardiography Echocardiography Rep ort: Transthoracic Echo [facility] Date of service: 11/06/2021 10:21:38 AM PHARMACY TECHNICIAN Ordering physician: DOROTHY SPARROW Indication: Pre-op (non [...] * * * Final * * * [id number] ngoDynamicsSISUID Normal [facility] CBC panel Auto (Bld)on 11-03 Erythrocyte distribution width (RBC) [Ratio] 12.5 % Normal 11.5-15.0 [facility] Comment on above: Order Comment: Speci men Type: BLOOD SPECIMENOrdering Facility: [facility] Address: [address] [place] [address] Performed By: #### 5 8410-2 ####[facility] LABIA [id number] [place] [address] [place] Hematocrit (Bld) [Volume fraction] 36.7 % Normal 36.0-46.0 [facility] Comment on above: Order Comment: Speci men Type: BLOOD SPECIMENOrdering Facility: [facility] Address: [address] [place] [address] Performed By: #### 5 8410-2 ####M[facility]SA [facility] LABIA [id number] [place] [address] [place] Hemoglobin (Bld) [Mass/Vol] 12.3 g/dL Normal 11.5-15.5 [facility] Comment on above: Order Comment: Speci men Type: BLOOD SPECIMENOrdering Facility: [facility] Address: [address] [place] [address] Performed By: #### 5 8410-2 ####[facility]SA [facility] LABIA [id number] [place] [address] [place] MCH (RBC) [Entitic mass] 30.0 pg Normal 26.0-34.0 [facility] Comment on above: Order Comment: Speci men Type: BLOOD SPECIMENOrdering Facility: [facility] Address: [address] [place] [address] Performed By: #### 5 8410-2 ####[facility]ELISSA [facility] LABCLIA [id number] [place] [address] [place] MCHC (RBC) [Mass/Vol] 33.5 g/dL Normal 30.5-36.0 [facility] Comment on above: Order Comment: Speci men Type: BLOOD SPECIMENOrdering Facility: [facility] Address: [address] [place] [address] Performed By: #### 5 8410-2 ####[facility] LABCLIA [id number] [place] [address] [place] MCV (RBC) [Entitic vol] 89.5 fL Normal 80.0-100.0 [facility] Comment on above: Order Comment: Speci men Type: BLOOD SPECIMENOrdering Facility: [facility] Address: [address] [place] [address] Performed By: #### 5 8410-2 ####[facility]SA [facility] LABIA [id number] [place] [address] [place] Nucleated RBC (Bld) [#/Vol] 10*3/uL Normal <0.01 [facility] Comment on above: Order Comment: Speci men Type: BLOOD SPECIMENOrdering Facility: [facility] Address: [address] [place] [address] Performed By: #### 5 8410-2 ####[facility] LABIA [id number] [place] [address] [place] Platelet mean volume (Bld) [Entitic vol] 9.3 fL Normal 9.0-12.7 [facility] Comment on above: Order Comment: Speci men Type: BLOOD SPECIMENOrdering Facility: [facility] Address: [address] [place] [address] Performed By: #### 5 8410-2 ####[facility] LABCLIA [id number] [place] [address] [place] Platelets (Bld) [#/Vol] 331 10*3/uL Normal 150-400 [facility] Comment on above: Order Comment: Speci men Type: BLOOD SPECIMENOrdering Facility: [facility] Address: [address] [place] [address] Performed By: #### 5 8410-2 ####[facility] LABIA [id number] [place] RBC (Bld) [#/Vol] 4.10 10*6/uL Normal 3.90-5.20 [facility] Comment on above: Order Comment: Speci men Type: BLOOD SPECIMENOrdering Facility: [facility] Address: [address] [place] [address] Performed By: #### 5 8410-2 ####[facility]SA [facility] LABIA [id number] [address] OF [facility] WBC (Bld) [#/Vol] 7.53 10*3/uL Normal 3.70-11.00 [facility] Comment on above: Order Comment: Speci men Type: BLOOD SPECIMENOrdering Facility: [facility] Address: [address] [place] [address] Performed By: #### 5 8410-2 ####[facility] LABIA [id number] [address] [place] Faisal 11-03-2021 EMANUELN Telephone ([facility]) OZIELMARY ([id number]) 1950 F Date Time Provider Department 11/03/21 ATFI MENDEZ During your visit today, we recorded the following information about you: Gee Looyuki Vázquez 11/03/2021 10:41 AM Signed Patient is in need of Echo before 11/16 for surgery. Is anyone able to assist in getting the patient in for this? Gee Ajay Vázquez 11/04/2021 2:50 PM Signed Patient scheduled 11/06 in [place] for ECHO Allergies As of Date: 11/03/2021 (No Known Allergies) Date Reviewed: 11/03/2021 Reviewed by: Dorothy Sparrow APRN.COMMERCIAL FINANCE MANAGER - Fully Assessed Reason for Visit: Orders [...] by GEE MEEKS MA on 11/04/21 Normal [facility] Comprehensive metabolic 2000 panelon 11-03-2021 Albumin [Mass/Vol] 4.6 g/dL Normal 3.9-4.9 [facility] Comment on above: Order Comment: Speci men Type: BLOOD SPECIMENOrdering Facility: [facility] Address: [address] [place] [address] Performed By: #### 2 4323-8 ####[facility] LABCLIA [id number] [place] [address] [place] ALP [Catalytic activity/Vol] 91 U/L Normal 34-123 [facility] Comment on above: Order Comment: Speci men Type: BLOOD SPECIMENOrdering Facility: [facility] Address: [address] [id number] Performed By: #### 2 4323-8 ####[facility] LABCLIA [id number] [place] [address] [place] ALT [Catalytic activity/Vol] 16 U/L Normal 7-38 [facility] Comment on above: Order Comment: Speci men Type: BLOOD SPECIMENOrdering Facility: [facility] Address: [address] [place] [address] Performed By: #### 2 4323-8 ####[facility] LABCLIA [id number] [place] [address] [place] Anion gap [Moles/Vol] 9 mmol/L Normal 9-18 [facility] Comment on above: Order Comment: Speci men Type: BLOOD SPECIMENOrdering Facility: [facility] Address: [address] [place] [address] Performed By: #### 2 4323-8 ####[facility] LABCLIA [id number] [place] [address] [place] AST [Catalytic activity/Vol] 17 U/L Normal 13-35 [facility] Comment on above: Order Comment: Speci men Type: BLOOD SPECIMENOrdering Facility: [facility] Address: [address] [place] [address] Performed By: #### 2 4323-8 ####[facility] LABCLIA [id number] [place] [address] [place] Bilirubin [Mass/Vol] 0.6 mg/dL Normal 0.2-1.3 [facility] Comment on above: Order Comment: Speci men Type: BLOOD SPECIMENOrdering Facility: [facility] Address: [address] [place] [address] Performed By: #### 2 4323-8 ####[facility] LABCLIA [id number] [place] [address] [place] Calcium [Mass/Vol] 10.3 mg/dL High 8.5-10.2 [facility] Comment on above: Order Comment: Speci men Type: BLOOD SPECIMENOrdering Facility: [facility] Address: [address] [place] [address] Performed By: #### 2 4323-8 ####[facility] LABCLIA [id number] [place] [address] [place] Chloride [Moles/Vol] 98 mmol/L Normal 97-105 [facility] Comment on above: Order Comment: Speci men Type: BLOOD SPECIMENOrdering Facility: [facility] Address: [address] [place] [address] Performed By: #### 2 4323-8 ####[facility] LABCLIA [id number] [place] [address] [place] CO2 [Moles/Vol] 27 mmol/L Normal 22-30 [facility] Comment on above: Order Comment: Speci men Type: BLOOD SPECIMENOrdering Facility: [facility] Address: [address] [place] [address] Performed By: #### 2 4323-8 ####[facility] LABCLIA [id number] [place] [address] [place] Creatinine [Mass/Vol] 1.05 mg/dL High 0.58-0.96 [facility] Comment on above: Order Comment: Speci men Type: BLOOD SPECIMENOrdering Facility: [facility] Address: [address] [place] [address] Performed By: #### 2 4323-8 ####[facility] LABCLIA [id number] [place] [address] [place] ESTIMATED GLOMERULAR FILTRATION RATE 58 mL/min/1.73m??? Low >=60 [facility] Comment on above: Order Comment: Speci men Type: BLOOD SPECIMENOrdering Facility: [facility] Address: [address] [place] [address] Result Comment: Gabriela mated Glomerular Filtration Rate [...] By: #### 2 4323-8 ####[facility] LABCLIA [id number] [place] [address] [place] Glucose [Mass/Vol] 108 mg/dL High 74-99 [facility] Comment on above: Order Comment: Param jarquin Type: BLOOD SPECIMENOrdering Facility: [facility] Address: [address] [place] [address] Result Comment: The [place] Diabetes Association (ADA) provides guidance for cutoff [...] Standards of Medical Care in Diabetes 2016, [place] [employer]. Diabetes Care. 2016.39(Suppl 1). Performed By: #### 2 4323-8 ####[facility] LABIA [id number] [place] [address] [place] Potassium [Moles/Vol] 4.3 mmol/L Normal 3.7-5.1 [facility] Comment on above: Order Comment: Param jarquin Type: BLOOD SPECIMENOrdering Facility: [facility] Address: [address] [place], [place] [phone] Performed By: #### 2 4323-8 ####[facility] LABIA [id number] [place] [address] [place] Protein [Mass/Vol] 7.2 g/dL Normal 6.3-8.0 [facility] Comment on above: Order Comment: Speci men Type: BLOOD SPECIMENOrdering Facility: [facility] Address: [address] [place] [address] Performed By: #### 2 4323-8 ####[facility] LABCLIA [id number] [place] [address] [place] Sodium [Moles/Vol] 134 mmol/L Low 136-144 [facility] Comment on above: Order Comment: Speci men Type: BLOOD SPECIMENOrdering Facility: [facility] Address: [address] [place] [address] Performed By: #### 2 4323-8 ####[facility] LABCLIA [id number] [place] [address] [place] Urea nitrogen [Mass/Vol] 19 mg/dL Normal 7-21 [facility] Comment on above: Order Comment: Speci men Type: BLOOD SPECIMENOrdering Facility: [facility] Address: [address] [place] [address] Performed By: #### 2 4323-8 ####[facility] LABCLIA [id number] [place] [address] [place] HISTORY PHYSICALon HISTORY PHYSICAL HNO ID: [id number] Author: Dorothy Sparrow APRN.EMANUEL Service: ? Author Type: Nurse Practitioner [...] loss, malaise or fevers. Neurological: HCP s/p SURVEY RESEARCH MANAGER shunt Negative for: delirium, dementia, headaches, seizures and strokes. Respiratory: Positive for: obstructive sleep apnea and CPAP/BiPAP compliant. Negative for: asthma, current cough, bronchodilator used daily for the last 3 months, dyspnea, pneumonia within 6 weeks, tobacco use and URI < 2 weeks. Cardiovascular: Positive for: hypertension Negative for: CAD, chest pain, CHF, DVT/PE, recent NC and murmur/valvular heart disease. GI: See HPI. Negative for: dysphagia, liver disease and pancreatitis. : Positive for: renal failure. Patient's renal failure is chronic. Negative for: dysuria, hematuria and urinary tract infection. 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 [facility] ([id number]) MARY GOODE ([id number]) 1950 F Date Time Provider Department 10/23/21 ATIF MENDEZ [id number] During your visit today, we recorded the following information about you: Sabine Victoria Pss 10/23/2021 12:05 PM Signed Requested reports from [employer]. Sent fax to [phone] -Manometry 6.02.27 -Upper GI 6.05.30 Sabine Victoria Pss Jonathon Dobson 10/27/2021 3:59 PM Signed Records received and scanned.on 10/27 listed under GI and external imaging Misc. Not sure who scanned these. Thanks! Allergies As of Date: 10/23/2021 (No Known Allergies) Date Reviewed: 10/01/2021 Reviewed by: Yolanda Castro MA - Fully Assessed Reason for Visit: Request Outside Medical Records [[id number]] Prescriptions as of 10/27/2021 - labetalol (TRANDATE) [...] Status:Closed by JONATHON DOBSON on 10/27/21 Normal [facility] CREATININE [facility] 10-21-2021 Creatinine [Mass/Vol] 1.04 mg/dL High 0.58-0.96 [facility] Comment on above: Order Comment: Speci men Type: BLOOD SPECIMENOrdering Facility: [facility] Address: [address] [place] [address] Performed By: #### C RET1 ####[facility] LABIA [id number] [place] [address] ESTIMATED GLOMERULAR FILTRATION RATE 59 mL/min/1.73m??? Low >=60 [facility] Comment on above: Order Comment: Speci men Type: BLOOD SPECIMENOrdering Facility: [facility] Address: [address] [place] [address] Result Comment: Gabriela mated Glomerular Filtration Rate [...] actual GFR. Performed By: #### C RET1 ####[facility] LABCLIA [id number] [place] [address] CREATININE BLDOrdered By: Felipe Huertas on 10-21-2021 Creatinine [Mass/Vol] 1.04 mg/dL High 0.58 - 0.96 mg/dL [facility] GFR/1.73 sq M.predicted among non-blacks MDRD (S/P/Bld) [Vol rate/Area] 59 mL/min/{1.73_m2} Low - PINF [facility] Comment on above: Estimated Glomerular Filtration Rate [...] Interpretation and review of laboratory results Abnormal [facility] CT ABD/PEL W IVCONon 022 CT ABD/PEL W IVCON * * *Final Report* * * DATE OF EXAM: Oct 21 2021 9:23AM [facility] 0530 - CT ABD/PEL W IVCON / [...] no acute osseous abnormalities. Lower thorax: Unremarkable. Clinic Director (topogram) images: No additional findings. IMPRESSION: 1. [...] any questions regarding this interpretation, please call [phone]. If you are unable to reach us at the number above, please feel free to contact [facility] at [phone]. [id number] Normal [facility] CT Abdomen and Pelvis W cont rast [...] any questions regarding this interpretation, please call [phone]. If you are unable to reach us at the number above, please feel free to contact [facility] eRadiology at [phone]. ZZZ_DO_NOT_ USE_DIVISIO N OF RADIOLOGY * * *Final Report* * * DATE OF EXAM: Oct 21 2021 9:23AM [facility] 0530 - CT ABD/PEL W IVCON / [...] no acute osseous abnormalities. Lower thorax: Unremarkable. Clinic Director (topogram) images: No additional findings. ZZZ_DO_NOT_ USE_DIVISIO N OF RADIOLOGY Provider, [facility] - 10/21/2021 * * *Final Report* * * DATE OF EXAM: Oct 21 2021 9:23AM [facility] 0530 - CT ABD/PEL W IVCON / [...] no acute osseous abnormalities. Lower thorax: Unremarkable. Clinic Director (topogram) images: No additional findings. IMPRESSION IMPRESSION: [...] any questions regarding this interpretation, please call [phone]. If you are unable to reach us at the number above, please feel free to contact [facility] eRadiology at [phone]. 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 Patient reports heart burn, excess salivation and occasional regurgitaion. She denies any ALARM features including weight loss, GIB, odynyophagia or dysphagia. Her PSH include open appendectomy, JUANI, and SURVEY RESEARCH MANAGER shunt placement. The patient's most recent EGD was done in 09/03 and the report is included below Chart Review: -hx: worsening GERD - referred by Dr. Ramirez for GERD/Hiatal Hernia Scan on 09/03/2021 ?9:36 AM by Jonathon Dobson: [facility] progress note 07/22/2021 Dr. Ramirez - 08/06/2021 EGD Scan on 09/03/2021 ?9:35 AM by Jonathon Dobson: [facility] EGD 08/06/2021 Dr. Ramirez -09/17/2015 EGD Scan on 09/03/2021 ?9:33 AM by Jonathon Dobson: [facility] Operative report 09/17/2015 Dr. 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 Normal [facility] 09-03-2021 [facility] Telephone ([id number]) SHANAMARY BUCIO ([id number]) 1950 F Date Time Provider Department 09/03/21 ATIF MENDEZ [id number] During your visit today, we recorded the following information about you: Jonathon Dobson 09/03/2021 9:39 AM Signed Received medical records from Dr. Ramirez. Progress Note 07/22/2021 EGD [id number] Old Operative Report 09/17/2015 Please review. Allergies As of Date: 09/03/2021 (No Known Allergies) Date Reviewed: 03/07/2013 Reviewed by: Griselda Nielson) MINDY Valdes - Fully Assessed Reason for Visit: Received Outside Medical Records [[id number]] Prescriptions as of 09/07/2021 - aliskiren hemifumarate(TEKTURNA [...] by RIKY MOURA RN on 09/07/21 Normal [facility] Cardiovascular Lab Reporton 01-13-2017 Cardiovascular Lab Report [facility] Patient Name: Mary Goode [facility] MR #: [id number] Physician: Caty Yoder,Department of M.D.Medicine Service Date: 01/12/2017Division of Birthdate: 3Cardiology Room #: CCAdult CardiovascularServicesJulia Ville [id number] [place], [place] [address]Fywks Fax Cardiovascular Laboratory ReportFINAL IMPRESSION:1. Mildly elevated [...] usual sterile fashion. Using modified Seldingertechnique, a 5-Pakistani micropuncture was placed in the right internaljugular vein. After that, this was upsized to a regular 5-Pakistani sheath.A 5-Pakistani Martinez was used for right heart catheterization. After theright heart catheterization, data was obtained. Martinez catheter was takenout. After that, access was obtained of left radial artery and a 6-Frenchsheath was placed and then we used a 5-Pakistani JL4 and JR4 catheters forcoronary angiography. After [...] 01/12/2017/11:24 Darya/Caty Yoder M.D.Date Trans: 01/13/2017 07:28 Darya/Chin_JN:[id number]: Imer Purcell M.D. [facility] [address] [facility] [address] Samuel Sanchez M.D. [facility] [address] Normal [facility] Vital Signs Date Time Vital Sign Value Performing Clinician Facility 10-08-2024 13:28-0400 Body height 157.5 cm Kinjal Garland NP Work Phone: [facility] 10-08-2024 13:28-0400 Body mass index (BMI) [Ratio] 33.43 kg/m2 Kinjal Garland NP Work Phone: [facility] 10-08-2024 13:280400 Body weight 82.92 kg Kinjal Garland NP Work Phone: [facility] 07-16-2024 09:15-0400 Body height 160.02 cm Imer Purcell MD Work Phone: [facility] 07-16-2024 09:15-0400 Body temperature 97.9 [degF] Imer Purcell MD Work Phone: [facility] 07-16-2024 09:15-0400 Body weight 84 kg Imer Purcell MD Work Phone: [facility] 07-16-2024 09:15-0400 Diastolic blood pressure 60 mm[Hg] Imer Purcell MD Work Phone: [facility] 07-16-2024 09:15-0400 Heart rate 62 /min Imer Purcell MD Work Phone: [facility] 07-16-2024 09:15-0400 Respiratory rate 12 /min Imer Purcell MD Work Phone: [facility] 07-16-2024 09:15-0400 SaO2% (BldA) [Mass fraction] 95 % Imer Purcell MD Work Phone: [facility] 07-16-2024 09:15-0400 Systolic blood pressure 110 mm[Hg] Imer Purcell MD Work Phone: [facility] 07-11-2024 09:10-0500 Body height 157.48 cm [facility] 07-11-2024 09:10-0500 Body mass index (BMI) [Ratio] 33.5 kg/m2 [facility] 07-11-2024 09:10-0500 Body weight 83 kg [facility] 07-11-2024 09:10-0500 Diastolic blood pressure 71 mm[Hg] [facility] 07-11-2024 09:10-0500 Heart rate 65 /min [facility] 07-11-2024 09:10-0500 Respiratory rate 16 /min [facility] 07-11-2024 09:10-0500 SaO2% (BldA) [Mass fraction] 95 % [facility] 07-11-2024 09:10-0500 Systolic blood pressure 110 mm[Hg] [facility] 07-05-2024 09:04-0500 Body height 157.5 cm Estelle BENSON Work Phone: [facility] 07-05-2024 09:04-0500 Body mass index (BMI) [Ratio] 33.76 kg/m2 Estelle BENSON Work Phone: [facility] 07-05-2024 09:04-0500 Body weight 83.73 kg Estelle BENSON Work Phone: [facility] 07-02-2024 10:52-0500 Body mass index (BMI) [Ratio] 34.39 kg/m2 Heather Bang MD Work Phone: [facility] 07-02-2024 10:52-0500 Body weight 85.28 kg Heather Bang MD Work Phone: [facility] 06-20-2024 11:23-0500 Body height 157.5 cm Ben Florentino MD [facility] [facility] 06-20-2024 11:23-0500 Body mass index (BMI) [Ratio] 34.39 kg/m2 Ben Florentino MD Work Phone: [facility] 06-20-2024 11:23-0500 Body weight 85.28 kg Ben Florentino MD Work Phone: [facility] 06-20-2024 11:23-0500 Diastolic blood pressure 61 mm[Hg] Ben Florentino MD Work Phone: [facility] 06-20-2024 11:23-0500 Heart rate 125 /min Ben Florentino MD Work Phone: [facility] 06-20-2024 11:23-0500 Systolic blood pressure 88 mm[Hg] Ben Florentino MD Work Phone: [facility] 05-16-2024 10:26-0500 Body height 157.5 cm Ben Florentino MD Work Phone: [facility] 05-16-2024 10:26-0500 Body mass index (BMI) [Ratio] 34.39 kg/m2 Ben Florentino MD Work Phone: [facility] 05-16-2024 10:26-0500 Body weight 85.28 kg Ben Florentino MD Work Phone: [facility] 05-16-2024 10:26-0500 Diastolic blood pressure 67 mm[Hg] Ben Florentino MD Work Phone: [facility] 05-16-2024 10:26-0500 Heart rate 72 /min Ben Florentino MD Work Phone: [facility] 05-16-2024 10:26-0500 Systolic blood pressure 106 mm[Hg] Ben Florentino MD Work Phone: [facility] 03-21-2024 11:18-0500 Body height 157.5 cm Mireille Zurita MD Work Phone: [facility] 03-21-2024 11:18-0500 Body mass index (BMI) [Ratio] 33.29 kg/m2 Mireille Zurita MD Work Phone: [facility] 03-21-2024 11:18-0500 Body temperature 97 [degF] Mireille Zurita MD Work Phone: [facility] 03-21-2024 11:18-0500 Body weight 82.56 kg iMreille Zurita MD Work Phone: [facility] 03-21-2024 11:18-0500 Diastolic blood pressure 84 mm[Hg] Mireille Zurita MD Work Phone: [facility] 03-21-2024 11:18-0500 Heart rate 85 /min Mireille Zurita MD Work Phone: [facility] 03-21-2024 11:18-0500 Systolic blood pressure 132 mm[Hg] Mireille Zurita MD Work Phone: [facility] 03-06-2024 13:45-0400 Diastolic blood pressure 62 mm[Hg] MD Imer Purcell Work Phone: [facility] 03-06-2024 13:45-0400 Heart rate 66 /min MD Imer Purcell Work Phone: [facility] 03-06-2024 13:45-0400 Respiratory rate 16 /min MD Imer Purcell Work Phone: [facility] 03-06-2024 13:45-0400 SaO2% (BldA) [Mass fraction] 96 % MD Imer Purcell Work Phone: [facility] 03-06-2024 13:45-0400 Systolic blood pressure 130 mm[Hg] MD Imer Purcell Work Phone: [facility] 03-06-2024 12:12-0400 Body height 157.48 cm MD Imer Purcell Work Phone: [facility] 03-06-2024 12:12-0400 Body weight 81.19 kg MD Imer Purcell Work Phone: [facility] 03-01-2024 11:14-0400 Body height 157.5 cm Estelle BENSON Work Phone: [facility] 03-01-2024 11:14-0400 Body mass index (BMI) [Ratio] 33.73 kg/m2 Estelle BENSON Work Phone: [facility] 03-01-2024 11:14-0400 Body weight 83.64 kg Estelle BENSON Work Phone: [facility] 01-24-2024 10:180400 Body height 163.83 cm MD Imer Purcell Work Phone: [facility] 01-24-2024 10:180400 Body mass index (BMI) [Ratio] 30.4 kg/m2 MD Imer Purcell Work Phone: [facility] 01-24-2024 10:18-0400 Body temperature 97.6 [degF] MD Imer Purcell Work Phone: [facility] 01-24-2024 10:180400 Body weight 81.64 kg MD Imer Purcell Work Phone: [facility] 01-24-2024 10:18-0400 Diastolic blood pressure 79 mm[Hg] MD Imer Purcell Work Phone: [facility] 01-24-2024 10:18-0400 Heart rate 76 /min MD Imer Purcell Work Phone: [facility] 01-24-2024 10:18-0400 Respiratory rate 16 /min MD Imer Purcell Work Phone: [facility] 01-24-2024 10:18-0400 SaO2% (BldA) [Mass fraction] 99 % MD Imer Purcell Work Phone: [facility] 01-24-2024 10:18-0400 Systolic blood pressure 138 mm[Hg] MD Imer Purcell Work Phone: [facility] 10-19-2023 11:33-0400 Body height 157.5 cm Mireille Zurita MD Work Phone: [facility] 10-19-2023 11:33-0400 Body mass index (BMI) [Ratio] 31.83 kg/m2 Mireille Zurita MD Work Phone: [facility] 10-19-2023 11:33-0400 Body temperature 96.6 [degF] Mireille Zurita MD Work Phone: [facility] 10-19-2023 11:33-0400 Body weight 78.93 kg Mireille Zurita MD Work Phone: [facility] 10-19-2023 11:33-0400 Diastolic blood pressure 74 mm[Hg] Mireille Zurita MD Work Phone: [facility] 10-19-2023 11:33-0400 Heart rate 79 /min Mireille Zurita MD Work Phone: [facility] 10-19-2023 11:33-0400 Systolic blood pressure 132 mm[Hg] Mireille Zurita MD Work Phone: 5(269)597-277932 [place] [address] 06-16-2023 10:43-0500 Body height 160 cm Mireille Zurita MD Work Phone: 2(667)331-637832 [place] [address] 06-16-2023 10:43-0500 Body mass index (BMI) [Ratio] 31.53 kg/m2 Mireille Zurita MD Work Phone: 1(299)698-510832 [place] [address] 06-16-2023 10:43-0500 Body temperature 96.8 [degF] Mireille Zurita MD Work Phone: 7(924)568-586032 [place] [address] 06-16-2023 10:43-0500 Body weight 80.74 kg Mireille Zurita MD Work Phone: 1(618)282-133632 [place] [address] 06-16-2023 10:43-0500 Diastolic blood pressure 74 mm[Hg] Mireille Zurita MD Work Phone: 1(240)660-905032 [place] [address] 06-16-2023 10:43-0500 Heart rate 82 /min Mireille Zurita MD Work Phone: [facility] 06-16-2023 10:43-0500 Systolic blood pressure 110 mm[Hg] Mireille Zurita MD Work Phone: 8(035)996-148932 [place] [address] 05-10-2023 11:27-0500 Body height 157.5 cm Mireille Zurita MD Work Phone: 2(459)477-575032 [place] [address] 05-10-2023 11:27-0500 Body mass index (BMI) [Ratio] 32.08 kg/m2 Mireille Zurita MD Work Phone: 4(651)737-905532 [place] [address] 05-10-2023 11:27-0500 Body temperature 97.3 [degF] Mireille Zurita MD Work Phone: 8(122)242-454632 [place] [address] 05-10-2023 11:27-0500 Body weight 79.56 kg Mireille Zurita MD Work Phone: 3(210)712-697685 [place] [address] 05-10-2023 11:27-0500 Diastolic blood pressure 76 mm[Hg] Mireille Zurita MD Work Phone: 9(484)357-404185 [place] [address] 05-10-2023 11:27-0500 Heart rate 74 /min Mireille Zurita MD Work Phone: 0(726)597-229585 [place] [address] 05-10-2023 11:27-0500 Respiratory rate 16 /min Mireille Zurita MD Work Phone: 5(828)422-471985 [place] [address] 05-10-2023 11:27-0500 Systolic blood pressure 120 mm[Hg] Mireille Zurita MD Work Phone: 8(845)843-780485 [place] [address] 03-23-2023 08:20-0500 Body temperature 97.9 [degF] Mireille Zurita MD Work Phone: 3(939)290-235385 [place] [address] 03-23-2023 08:20-0500 Diastolic blood pressure 73 mm[Hg] Mireille Zurita MD Work Phone: 3(871)881-480985 [place] [address] 03-23-2023 08:20-0500 Heart rate 88 /min Mireille Zurita MD Work Phone: 0(550)904-702932 [place] [address] 03-23-2023 08:20-0500 Respiratory rate 16 /min Mireille Zurita MD Work Phone: 5(750)083-555132 [place] [address] 03-23-2023 08:20-0500 SaO2% (BldA) [Mass fraction] 95 % Mireille Zruita MD Work Phone: 3(686)644-719532 [place] [address] 03-23-2023 08:20-0500 Systolic blood pressure 127 mm[Hg] Mireille Zurita MD Work Phone: 0(964)677-269132 [place] [address] 03-21-2023 06:33-0500 Body height 157.5 cm Mireille Zurita MD Work Phone: [facility] 03-21-2023 06:33-0500 Body mass index (BMI) [Ratio] 31.45 kg/m2 Mireille Zurita MD Work Phone: [facility] 03-21-2023 06:33-0500 Body weight 78 kg Mireille Zurita MD Work Phone: [facility] 02-01-2023 09:40-0400 Body height 163.83 cm Gino Paco Other [employer] Other 02-01-2023 09:40-0400 Body mass index (BMI) [Ratio] 29.4 kg/m2 Gino Paco Other [employer] Other 02-01-2023 09:40-0400 Body temperature 97.6 [degF] Gino Paco Other [employer] Other 02-01-2023 09:40-0400 Body weight 78.93 kg Gino Paco Other [employer] Other 02-01-2023 09:40-0400 Diastolic blood pressure 74 mm[Hg] Gino Paco Other [employer] Other 02-01-2023 09:40-0400 Respiratory rate 18 /min Gino Paco Other [employer] Other 02-01-2023 09:40-0400 SaO2% (BldA) [Mass fraction] 98 % Gino Paco Other [employer] Other 02-01-2023 09:40-0400 Systolic blood pressure 129 mm[Hg] Gino Paco Other [employer] Other 01-20-2023 14:47-0400 Body height 160.02 cm Imer M Hoy Work Phone: NN-Jbbnmldxlptk-Sadn [facility] Work Phone: 01-20-2023 14:47-0400 Body mass index (BMI) [Ratio] 30.29 kg/m2 Imer M Hoy Work Phone: MB-Lquoiycondoe-Xkdq [facility] Work Phone: 01-20-2023 14:47-0400 Body surface area Derived from formula 1.81 m2 Imer M Hoy Work Phone: NC-Xsqihkdhbplb-Tehg [facility] Work Phone: 01-20-2023 14:47-0400 Body temperature 96.9 [degF] Imer M Hoy Work Phone: AX-Abdkmlpgxwmj-Otce [place] [facility] [address] Work Phone: 01-20-2023 14:47-0400 Body weight 77.57 kg Imer M Hoy Work Phone: HZ-Vnlmfqveyspa-Jkqr [facility] Work Phone: 01-20-2023 14:47-0400 Diastolic blood pressure 78 mm[Hg] Imer M Hoy Work Phone: CO-Eitdudoydqba-Koky [facility] Work Phone: 01-20-2023 14:47-0400 Heart rate 69 /min Imer M Hoy Work Phone: KS-Hewxewyvowqy-Xygo [facility] Work Phone: 01-20-2023 14:47-0400 SaO2% (BldA) [Mass fraction] 98 % Imer M Hoy Work Phone: XI-Crsfoiivwtdk-Iowl [facility] Work Phone: 01-20-2023 14:47-0400 Systolic blood pressure 140 mm[Hg] Imer M Hoy Work Phone: QX-Ojmulckiufgu-Cnam [place] [facility] Work Phone: 01-20-2023 14:47-0400 4 1 Imer M Hoy Work Phone: KM-Dejoefsiwbpz-Qqqy [facility] Work Phone: Comment on above: [employer] 12-07-2022 11:08-0400 Body height 160.02 cm Imer M Hoy Work Phone: XH-Xkjpseeeogba-Kroy [facility] [facility] Work Phone: 12-07-2022 11:08-0400 Body mass index (BMI) [Ratio] 30.29 kg/m2 Imer M Hoy Work Phone: CX-Kbuutsgrcvqf-Zxze [facility] Work Phone: 12-07-2022 11:08-0400 Body surface area Derived from formula 1.81 m2 Imer M Hoy Work Phone: DU-Fskrlpmtwwga-Tjdv [facility] Work Phone: 12-07-2022 11:08-0400 Body temperature 96.8 [degF] Imer M Hoy Work Phone: TL-Klkbgnmdouyt-Hbac [facility] Work Phone: 12-07-2022 11:08-0400 Body weight 77.57 kg Imer M Hoy Work Phone: SH-Otospvoigbos-Nbnd [place] [facility] [address] Work Phone: 12-07-2022 11:08-0400 Diastolic blood pressure 78 mm[Hg] Imer M Hoy Work Phone: YY-Gvprnxwdwrbu-Kkmv [facility] Work Phone: 12-07-2022 11:08-0400 Heart rate 63 /min Imer M Hoy Work Phone: RT-Qcmjpqbwiegu-Fsrf [facility] [facility] [address] Work Phone: 12-07-2022 11:08-0400 SaO2% (BldA) [Mass fraction] 97 % Imer M Hoy Work Phone: XV-Iklgiyrheheq-Mesj [facility] Work Phone: 12-07-2022 11:08-0400 Systolic blood pressure 132 mm[Hg] Imer M Hoy Work Phone: QP-Cdxbdhauzenh-Fmso [facility] [facility] Work Phone: 12-07-2022 11:08-0400 4 1 Imer M Hoy Work Phone: SF-Ufgvihadkguo-Fktg [facility] Work Phone: Comment on above: [employer] 12-07-2022 11:08-0400 5 1 Imer M Hoy Work Phone: TO-Bcksgaoissbc-Bpmy [facility] Work Phone: Comment on above: PHQ-9 TS 08-03-2022 15:20-0400 Body height 163.83 cm Keagan Chadwick Other [employer] Other 08-03-2022 15:20-0400 Body mass index (BMI) [Ratio] 19.6 kg/m2 Keagan Chadwick Other [employer] Other 08-03-2022 15:20-0400 Body weight 52.62 kg Keagan Chadwick Other [employer] Other 07-22-2022 12:00-0400 Body height 163.83 cm Keagan Chadwick Other [employer] Other 07-22-2022 12:00-0400 Body mass index (BMI) [Ratio] 19.6 kg/m2 Keagan Chadwick Other [employer] Other 07-22-2022 12:00-0400 Body weight 52.62 kg Keagan Chadwick Other [employer] Other 07-22-2022 12:00-0400 Diastolic blood pressure 72 mm[Hg] Keagan Chadwick Other [employer] Other 07-22-2022 12:00-0400 Systolic blood pressure 118 mm[Hg] Keagan Chadwick Other [employer] Other 06-16-2022 10:00-0500 Body height 163.83 cm Gino Paco Other [employer] Other 06-16-2022 10:00-0500 Body mass index (BMI) [Ratio] 19.69 kg/m2 Gino Paco Other [employer] Other 06-16-2022 10:00-0500 Body temperature 97.6 [degF] Gino Paco Other [employer] Other 06-16-2022 10:00-0500 Body weight 52.84 kg Gino Paco Other [employer] Other 06-16-2022 10:00-0500 Diastolic blood pressure 70 mm[Hg] Gino Paco Other [employer] Other 06-16-2022 10:00-0500 Respiratory rate 18 /min Gino Paco Other [employer] Other 06-16-2022 10:00-0500 Systolic blood pressure 120 mm[Hg] Gino Paco Other [employer] Other 04-08-2022 10:09-0500 Diastolic blood pressure 64 mm[Hg] MD Imer Purcell Work Phone: [facility] 04-08-2022 10:09-0500 Heart rate 64 /min MD Imer Purcell Work Phone: [facility] 04-08-2022 10:09-0500 Respiratory rate 16 /min MD Imer Purcell Work Phone: [facility] 04-08-2022 10:09-0500 SaO2% (BldA) [Mass fraction] 100 % MD Imer Purcell Work Phone: [facility] 04-08-2022 10:09-0500 Systolic blood pressure 112 mm[Hg] MD Imer Purcell Work Phone: [facility] 04-08-2022 08:55-0500 Body height 160.02 cm MD Imer Purcell Work Phone: [facility] 04-08-2022 08:55-0500 Body temperature 98.2 [degF] MD Imer Purcell Work Phone: [facility] 04-08-2022 08:55-0500 Body weight 74.84 kg MD Imer Purcell Work Phone: [facility] 03-23-2022 16:20-0500 Body height 163.83 cm Keagan Chadwick Other [employer] Other 03-23-2022 16:20-0500 Body mass index (BMI) [Ratio] 28.05 kg/m2 Keagan Chadwick Other [employer] Other 03-23-2022 16:20-0500 Body weight 75.3 kg Keagan Chadwick Other [employer] Other 02-11-2022 14:00-0400 Body height 163.83 cm Keagan Chadwick Other [employer] Other 02-11-2022 14:00-0400 Body mass index (BMI) [Ratio] 28.05 kg/m2 Keagan Chadwick Other [employer] Other 02-11-2022 14:00-0400 Body weight 75.3 kg Keagan Chadwick Other [employer] Other 11-30-2021 11:20-0400 Body height 163.83 cm Gino Paco Other [employer] Other 11-30-2021 11:20-0400 Body mass index (BMI) [Ratio] 28.12 kg/m2 Gino Paco Other [employer] Other 11-30-2021 11:20-0400 Body temperature 97.2 [degF] Gino Paco Other [employer] Other 11-30-2021 11:20-0400 Body weight 75.48 kg Gino Paco Other [employer] Other 11-30-2021 11:20-0400 Diastolic blood pressure 69 mm[Hg] Gino Paco Other [employer] Other 11-30-2021 11:20-0400 Respiratory rate 18 /min Gino Paco Other [employer] Other 11-30-2021 11:20-0400 SaO2% (BldA) [Mass fraction] 98 % Gino Paco Other [employer] Other 11-30-2021 11:20-0400 Systolic blood pressure 112 mm[Hg] Gino Paco Other [employer] Other 11-12-2021 11:54-0400 Body height 160 cm Atif Mendez MD Work Phone: [facility] 11-12-2021 11:54-0400 Body temperature 97.39 [degF] Atif Mendez MD Work Phone: [facility] 11-12-2021 11:54-0400 Body weight 78.47 kg Atif Mendez MD Work Phone: [facility] 11-12-2021 11:54-0400 Diastolic blood pressure 63 mm[Hg] Atif Mendez MD Work Phone: [facility] 11-12-2021 11:54-0400 Heart rate 62 /min Atif Mendez MD Work Phone: [facility] 11-12-2021 11:54-0400 SaO2% (BldA) [Mass fraction] 98 % Atif Mendez MD Work Phone: [facility] 11-12-2021 11:54-0400 Systolic blood pressure 140 mm[Hg] Atif Mendez MD Work Phone: [facility] 10-01-2021 10:31-0400 Body height 165.1 cm Atif Mendez MD Work Phone: [facility] 10-01-2021 10:31-0400 Body weight 80.74 kg Atif Mendez MD Work Phone: [facility] 10-01-2021 10:31-0400 Diastolic blood pressure 57 mm[Hg] Atif Mendez MD Work Phone: [facility] 10-01-2021 10:31-0400 Heart rate 70 /min Atif Mendez MD Work Phone: [facility] 10-01-2021 10:31-0400 SaO2% (BldA) [Mass fraction] 97 % Atif Mendez MD Work Phone: [facility] 10-01-2021 10:31-0400 Systolic blood pressure 122 mm[Hg] Atif Mendez MD Work Phone: [facility] 06-02-2021 12:00-0500 Body height 163.83 cm Gino Paco Other [employer] Other 06-02-2021 12:00-0500 Body mass index (BMI) [Ratio] 30.28 kg/m2 Gino Paco Other [employer] Other 06-02-2021 12:00-0500 Body temperature 96.6 [degF] Gino Paco Other [employer] Other 06-02-2021 12:00-0500 Body weight 81.29 kg Gino Paco Other [employer] Other 06-02-2021 12:00-0500 Diastolic blood pressure 61 mm[Hg] Gino Paco Other [employer] Other 06-02-2021 12:00-0500 Respiratory rate 18 /min Gino Paco Other [employer] Other 06-02-2021 12:00-0500 SaO2% (BldA) [Mass fraction] 98 % Gino Paco Other [employer] Other 06-02-2021 12:00-0500 Systolic blood pressure 125 mm[Hg] Gino Paco Other [employer] Other Encounters Encounter Date Encounter Type Care Provider Facility Start: 10-19-2024 End: 10-19-2024 Telephone encounter Estelle BENSON Work Phone: [facility] Comment on above: UTI Start: 10-17-2024 End: 10-17-2024 ambulatory [facility] Facility:[facility] Start: 10-17-2024 Encounter for other preprocedural examination [facility] Start: 10-12-2024 ambulatory [facility] Facil ity:[facility] Start: 10-08-2024 End: 10-08-2024 Bamboo flowsheet Kinjal Garland EDGE SETTER Work Phone: [facility] Start: 10-08-2024 End: 10-08-2024 Bamboo flowsheet Kinjal Garland EDGE SETTER Work Phone: [facility] Start: 10-08-2024 End: 10-08-2024 Patient encounter procedure Kinjal Garland EDGE SETTER Work Phone: [facility] Comment on above: Primary osteoarthrit is of right knee (Primary Dx); Pre-op exam Start: 10-08-2024 End: 10-08-2024 Preprocedural examination done Kinjal Garland EDGE SETTER Work Phone: [facility] Start: 10-08-2024 End: 10-08-2024 ambulatory KINJAL GARLAND Not Available Start: 08-02-2024 End: 08-02-2024 ambulatory [facility] Facility:[facility] Start: 08-02-2024 End: 08-02-2024 Departed Referred Imer Purcell MD Work Phone: [facility] [place] Start: 07-17-2024 End: 07-17-2024 ambulatory Pepito Holloway PT Work Phone: [facility] Comment on above: Primary osteoarthrit is of right knee (Primary Dx) Start: 07-16-2024 End: 07-16-2024 Patient encounter procedure Imer Purcell MD Work Phone: [facility] [address] Work Phone: Start: 07-16-2024 End: 07-16-2024 ambulatory Imer Purcell MD Work Phone: [facility] Work Phone: Start: 07-16-2024 End: 07-16-2024 Patient encounter procedure Imer Purcell MD Work Phone: [facility] Work Phone: Start: 07-16-2024 End: 07-16-2024 ambulatory Imer Purcell MD Work Phone: [facility] Work Phone: Start: 07-16-2024 Encounter for preprocedural laboratory examination Rush Knapp [facility] Physician [facility] Start: 07-11-2024 End: 07-11-2024 ambulatory [facility] Work Phone: Start: 07-11-2024 End: 07-11-2024 Patient encounter procedure [facility] Phys[facility] Work Phone: Start: 07-05-2024 End: 07-05-2024 Bamboo flowsheet Estelle BENSON Work Phone: [facility] Start: 07-05-2024 End: 07-05-2024 Bamboo flowsheet Estelle BENSON Work Phone: [facility] Start: 07-05-2024 End: 07-05-2024 Patient encounter procedure Estelle BENSON Work Phone: [facility] Comment on above: Pre-op examination ( Primary Dx); Primary osteoarthritis of right knee Start: 07-05-2024 End: 07-05-2024 Preprocedural examination done Estelle BENSON Work Phone: [facility] Start: 07-05-2024 End: 07-05-2024 ambulatory ESTELLE PEREZ Not Available Start: 07-02-2024 End: 07-02-2024 Bamboo flowsheet Heather Bang MD Work Phone: [facility] Start: 07-02-2024 End: 07-02-2024 Bamboo flowsheet Heather Bang MD Work Phone: [facility] Start: 07-02-2024 End: 07-03-2024 Telephone encounter Keshia Diaz MD Work Phone: [facility] Start: 07-02-2024 End: 07-02-2024 Patient encounter procedure Heather Bang MD Work Phone: [facility] Comment on above: 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) Start: 07-02-2024 End: 07-02-2024 ambulatory HEATHER BANEGASBASEK Not Available Start: 06-27-2024 Non-patient / Non-visit [facility] Physician [facility] Work Phone: Start: 06-27-2024 End: 06-27-2024 Bamboo flowskristopher Bang MD Work Phone: [facility] Start: 06-27-2024 End: 06-27-2024 Bamboo flowskristopher Bang MD Work Phone: [facility] Start: 06-27-2024 End: 06-27-2024 Patient encounter procedure Heather Bang MD Work Phone: [facility] Comment on above: 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) Start: 06-27-2024 End: 06-27-2024 ambulatory HEATHER BANG Not Available Start: 06-25-2024 End: 06-25-2024 Vitoo flowskristopher Bang MD Work Phone: [facility] Start: 06-25-2024 End: 06-25-2024 Bamboo flowskristopher Bang MD Work Phone: [facility] Start: 06-25-2024 End: 06-25-2024 Patient encounter procedure Heather Bang MD Work Phone: [facility] Comment on above: 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) Start: 06-25-2024 End: 06-25-2024 ambulatory HEATHER Anguiano RAMBASEK Not Available Start: 06-20-2024 End: 06-20-2024 ambulatory BEN H TIMMIS Not Available Start: 06-20-2024 End: 06-20-2024 Office outpatient visit 15 minutes Ben Florentino MD Work Phone: [facility] Comment on above: Nasal obstruction (P rimary Dx) Start: 06-19-2024 End: 06-19-2024 Office outpatient new 30 minutes Eri Lackey Felter DIRECTOR MARKETING [employer]ICATIONS-COMMERCIAL FINANCE MANAGER Work Phone: [facility] Comment on above: Melanocytic nevus of trunk (Primary Dx); Melanocytic nevus of face, other location; Capillary angioma; Lentigines; Seborrheic keratosis; Actinic keratosis; Neoplasm of unspecified behavior of bone, soft tissue, and skin Start: 06-19-2024 End: 06-19-2024 Bamboo flowsheet Eri A Felter DIRECTOR MARKETING COMMUNICATIONS-COMMERCIAL FINANCE MANAGER Work Phone: [facility] Start: 06-19-2024 End: 06-19-2024 Bamboo flowsheet Eri A Felter DIRECTOR MARKETING COMMUNICATIONS-COMMERCIAL FINANCE MANAGER Work Phone: [facility] Start: 06-19-2024 End: 06-19-2024 ambulatory ERI Lackey FELTER Not Available Start: 06-04-2024 End: 06-11-2024 Clinisync Result Encounter Ben Florentino MD Work Phone: [facility] Unsolicited Start: 06-04-2024 End: 06-11-2024 Clinisync Result Encounter Ben Florentino MD Work Phone: [facility] Unsolicited Start: 05-21-2024 End: 05-22-2024 Telephone encounter Ben Florentino MD Work Phone: [facility] Start: 05-21-2024 End: 05-21-2024 ambulatory BEN FLORENTINO Not Available Start: 05-16-2024 End: 05-16-2024 Bamboo flowsheet Ben Florentino MD Work Phone: [facility] Start: 05-16-2024 End: 05-16-2024 Bamboo flowsheet Ben Florentino MD Work Phone: [facility] Start: 05-16-2024 End: 05-16-2024 Office outpatient new 45 minutes Ben Florentino MD Work Phone: [facility] Comment on above: Facial trauma, initi al encounter (Primary Dx); Nasal obstruction Start: 05-16-2024 End: 05-16-2024 ambulatory BEN FLORENTINO Not Available Start: 04-04-2024 End: 04-04-2024 Bamboo flowskristopher Bang MD Work Phone: [facility] Start: 04-04-2024 End: 04-04-2024 Bammaria luzo maulik Bang MD Work Phone: [facility] Start: 04-04-2024 End: 04-04-2024 Office outpatient new 45 minutes Heather Bang MD Work Phone: [facility] Comment on above: Allergic rhinitis du e to dust (Primary Dx); Allergic contact dermatitis due to metals Start: 04-04-2024 End: 04-04-2024 ambulatory HEATHER BANG Not Available Start: 04-02-2024 End: 04-02-2024 Bammaria luzo maulik Bang MD Work Phone: [facility] Start: 04-02-2024 End: 04-02-2024 Vitoo flowskristopher Bang MD Work Phone: [facility] Start: 04-02-2024 End: 04-02-2024 ambulatory HEATHER BANG Not Available Start: 04-02-2024 End: 04-02-2024 Patient encounter procedure Heather Bang MD Work Phone: [facility] Comment on above: Primary osteoarthrit is of right knee Start: 03-21-2024 End: 03-21-2024 Office outpatient visit 25 minutes Mireille Zurita MD Work Phone: [facility] Comment on above: Status post cervical spinal fusion (Primary Dx); Full incontinence of feces Start: 03-21-2024 End: 03-21-2024 ambulatory [facility] Start: 03-16-2024 End: 03-16-2024 ambulatory [facility] Start: 03-16-2024 End: 03-16-2024 Subsequent hospital visit by physician Gabby Cobos X-Ray 2 [facility] Comment on above: Status post cervical spinal fusion Start: 03-08-2024 End: 03-08-2024 ambulatory MD Imer Purcell Work Phone: [facility] Work Phone: Start: 03-08-2024 End: 03-08-2024 Patient encounter procedure MD Imer Purcell Work Phone: [facility] Work Phone: Start: 03-08-2024 End: 03-08-2024 Patient encounter procedure MD Imer Purcell Work Phone: [facility] [address] Work Phone: Start: 03-08-2024 End: 03-08-2024 ambulatory MD Imer Purcell Work Phone: [facility] Work Phone: Start: 03-06-2024 Non-patient / Non-visit MD Femi Purcell Work Phone: [facility] Work Phone: Start: 03-06-2024 End: 03-06-2024 Admission to same day surgery center MD Imer Purcell Work Phone: [facility] Work Phone: Start: 03-06-2024 End: 03-06-2024 ambulatory MD Imer Purcell Work Phone: [facility] Work Phone: Start: 03-05-2024 End: 03-05-2024 Telephone encounter Denise Patel MA [facility] Start: 03-01-2024 End: 03-01-2024 Bamboo flowsheet Estelle BENSON Work Phone: [facility] Start: 03-01-2024 End: 03-01-2024 Bamboo flowsheet Estelle Perez PA Work Phone: [facility] Start: 03-01-2024 End: 03-01-2024 Patient encounter procedure Estelle BENSON Work Phone: [facility] Comment on above: Primary osteoarthrit is of right knee (Primary Dx); Pre-op examination Start: 03-01-2024 End: 03-01-2024 Preprocedural examination done Estelle BENSON Work Phone: [facility] Start: 03-01-2024 End: 03-01-2024 ambulatory ESTELLE PEREZ Not Available Start: 02-13-2024 End: 02-13-2024 Bamboo flowsheet Jr. Rush Knapp DO Work Phone: [facility] Start: 02-13-2024 End: 02-13-2024 Bamboo flowsheet Jr. Rush Gilman Stepoliva DO Work Phone: [facility] Start: 02-13-2024 End: 02-13-2024 Office outpatient visit 25 minutes Jr. Rush Knapp DO Work Phone: [facility] Comment on above: Primary osteoarthrit is of right knee (Primary Dx); Acute pain of right knee Start: 02-13-2024 End: 02-13-2024 ambulatory RUSH MURRAY Not Available Start: 02-03-2024 ambulatory Facility:[facility] Start: 01-24-2024 End: 01-24-2024 ambulatory MD Imer Purcell Work Phone: [facility] Work Phone: Start: 01-24-2024 End: 01-24-2024 Patient encounter procedure MD Imer Purcell Work Phone: [facility] Physician [facility] Nephrology [place] Work Phone: Start: 01-19-2024 End: 01-19-2024 Patient encounter procedure MD Imer Purcell Work Phone: [facility] [place] Work Phone: Start: 01-19-2024 End: 01-19-2024 ambulatory MD Imer Pucrell Work Phone: [facility] Work Phone: Start: 01-12-2024 End: 01-13-2024 Refill Freda Pop DIRECTOR MARKETING COMMUNICATIONS.COMMERCIAL FINANCE MANAGER Work Phone: General Surgery Comment on above: Refill Request Start: 12-08-2023 End: 12-08-2023 Patient encounter procedure MD Imer Purcell Work Phone: [facility] Work Phone: Start: 12-08-2023 End: 12-08-2023 ambulatory MD Imer Purcell Work Phone: [facility] Work Phone: Start: 10-19-2023 End: 10-19-2023 Office outpatient visit 25 minutes Mireille Zurita MD Work Phone: [facility] Comment on above: Status post cervical spinal fusion (Primary Dx) Start: 10-19-2023 End: 10-19-2023 ambulatory [facility] Start: 10-13-2023 End: 10-13-2023 Subsequent hospital visit by physician Gabby X-Ray 1 [facility] Comment on above: Cervical spondylosis with myelopathy Start: 10-13-2023 End: 10-13-2023 ambulatory [facility] Start: 10-11-2023 Refill Freda Pop DIRECTOR MARKETING COMMUNICATIONS.COMMERCIAL FINANCE MANAGER Work Phone: General Surgery Comment on above: Refill Request Start: 06-16-2023 End: 06-16-2023 Postop follow up visit related to original px Mireille Zurita MD Work Phone: [facility] Comment on above: 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) (Primary Dx); Status post cervical spinal fusion Start: 06-16-2023 End: 06-16-2023 ambulatory [facility] Start: 06-09-2023 End: 06-09-2023 Subsequent hospital visit by physician Gabby Wang X-Ray 1 [facility] Comment on above: 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) Start: 06-09-2023 End: 06-09-2023 ambulatory [facility] Start: 05-24-2023 End: 05-25-2023 ambulatory CECELIA DE LA CRUZSCARLET Not Available Start: 05-10-2023 End: 05-10-2023 Postop follow up visit related to original px Mireille Zurita MD Work Phone: [facility] 4 Comment on above: 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 2 Comment on above: Spine disorder (Prim shante Dx); Preop testing; Cervical spondylosis with myelopathy; Coagulation defect, unspecified (CMS/HCC); Spinal stenosis, cervical region; Other spondylosis with myelopathy, cervical region; Acute post-operative pain; Drug-induced constipation; Normal pressure hydrocephalus syndrome (CMS/HCC); S/P cervical spinal fusion; Essential hypertension Start: 03-21-2023 End: 03-23-2023 Patient encounter status Mireille Zurita MD Work Phone: [facility] Work Phone: Start: 03-14-2023 End: 03-14-2023 Subsequent hospital visit by physician Par X-Ray 5 [facility] Comment on above: Cervical spondylosis with myelopathy Start: 03-14-2023 End: 03-28-2023 ambulatory MIREILLE Savita YUDITH [facility] Start: 03-14-2023 End: 03-14-2023 Subsequent hospital visit by physician [facility] Comment on above: Cervical spondylosis with myelopathy Start: 03-14-2023 End: 03-14-2023 ambulatory IMER PURCELL [facility] Start: 02-01-2023 End: 02-01-2023 ambulatory Gino Barbosa Other [facility] Other Start: 02-01-2023 Office outpatient vi sit 25 minutes Gino Barbosa [facility] Start: 01-20-[address] Imer Purcell Facility:[id number] Start: 01-20-2023 Office outpatient vi sit 15 minutes Imer Purcell Work Phone: [facility] [address] Work Phone: Start: 12-07-2022 Office outpatient ne w 45 minutes Imer Purcell Work Phone: [facility] [address] Work Phone: Start: 12-07-2022 ambulatory MIREILLE YUDITH Facility :[id number] Start: 08-03-2022 Office outpatient vi sit 15 minutes Keagan Chadwick [facility] Neuro[facility] Start: 08-03-2022 End: 08-03-2022 ambulatory MD Imer Purcell Work Phone: [facility] Work Phone: Start: 08-03-2022 End: 08-03-2022 Patient encounter procedure MD Imer Purcell Work Phone: [facility] [address] Work Phone: Start: 07-30-2022 End: 07-30-2022 ambulatory MD Imer Purcell Work Phone: [facility] Work Phone: Start: 07-30-2022 End: 07-30-2022 Patient encounter procedure MD Imer Purcell Work Phone: [facility] Work Phone: Start: 07-27-2022 End: 07-27-[address] IMER PURCELL . Facility:H1 Start: 07-22-2022 Office outpatient vi sit 15 minutes Keagan Chadwick [facility] Start: 07-22-2022 End: 07-22-2022 ambulatory MD Imer Purcell Work Phone: [facility] Work Phone: Start: 07-22-2022 End: 07-22-2022 Patient encounter procedure MD Imer Purcell Work Phone: [facility] [address] Work Phone: Start: 07-21-2022 End: 07-22-2022 ambulatory MARIKA ALBERTINA Facility: Start: 06-24-2022 End: 06-25-[address] IMER PURCELL . Facility: Start: 06-16-2022 End: 06-16-2022 ambulatory Gino Paco Other [facility] Other Start: 06-16-2022 Office outpatient vi sit 25 minutes Gino Paco [facility] Start: 06-08-2022 End: 06-08-2022 ambulatory MD Imer Purcell Work Phone: [facility] Work Phone: Start: 06-08-2022 End: 06-08-2022 Patient encounter procedure MD Imer Purcell Work Phone: [facility] [place] Work Phone: Start: 05-27-2022 End: 05-27-2022 ambulatory FREDA POP Facility:[facility] Start: 05-27-2022 End: 05-27-2022 ambulatory Freda Pop DIRECTOR MARKETING COMMUNICATIONS.COMMERCIAL FINANCE MANAGER Work Phone: General Surgery Comment on above: S/P repair of paraes ophageal hernia (Primary Dx); Long-term current use of proton pump inhibitor therapy Start: 05-27-2022 End: 05-27-2022 Telemedicine consultation with patient Freda Pop APRN.COMMERCIAL FINANCE MANAGER Work Phone: [facility] Start: 05-17-2022 End: 05-18-2022 ambulatory GINO PACO Facility: Start: 05-12-[address] IMER PURCELL . Facili ty: Start: 05-04-2022 End: 05-05-[address] IMER PURCELL . Facility: Start: 04-08-2022 End: 04-08-2022 Admission to same day surgery center MD Imer Purcell Work Phone: [facility] Start: 04-08-2022 End: 04-08-2022 ambulatory MD Imer Purcell Work Phone: [facility] Work Phone: Start: 03-23-2022 End: 03-23-2022 ambulatory Keagan Chadwick Other [employer] Other Start: 03-23-2022 Office outpatient vi sit 15 minutes Keagan Chadwick [facility] Start: 03-22-2022 End: 03-22-2022 Patient encounter procedure MD Imer Purcell Work Phone: [facility] [address] Start: 03-16-2022 End: 03-16-2022 ambulatory Ziyad Ngo Other [employer] Other Start: 03-16-2022 Telephone encounter Ziyad TREVIÑO G 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 Facility:H1 Start: 01-27-2022 End: 01-27-[address] IMER PURCELL . Facility:[facility]1 Start: 01-26-2022 End: 01-27-[address] IMER PURCELL . Facility:[facility]1 Start: 01-25-2022 End: 02-15-[address] IMER PURCELL . Facility:[facility]1 Start: 01-07-2022 End: 01-07-[address] IMER PURCELL . Facility: Start: 12-23-2021 End: 12-23-2021 ambulatory FREDA POP Facility:[facility] Start: 12-03-2021 End: 12-03-2021 ambulatory Freda Pop COMMERCIAL FINANCE MANAGER Work Phone: General Surgery Comment on above: S/P repair of paraes ophageal hernia (Primary Dx); Paraesophageal hernia Start: 12-03-2021 End: 12-03-2021 Telemedicine consultation with patient Freda Pop PAWEL.COMMERCIAL FINANCE MANAGER Work Phone: [facility] Start: 11-30-2021 End: 11-30-2021 ambulatory Gino Paco Other [facility] Other Start: 11-30-2021 Office outpatient vi sit 25 minutes Gino Paco [facility] Nephrology Start: 11-26-2021 End: 11-27-2021 ambulatory GINO PACO [facility] [employer] Other Start: 11-26-2021 Telephone encounter Keagan Chadwick [facility] Neurosurgery Start: 11-18-2021 ambulatory Atif Mendez MD [...] Start: 11-06-2021 End: 11-06-2021 ambulatory DOROTHY KYARA Facility:[facility] Start: 11-04-2021 ambulatory Atif Mendez MD Work Phone: General Surgery Comment on above: Updated Medical hist ory Start: 11-03-2021 Telephone encounter Atif esposito MD Work Phone: Family [facility] Comment on above: Orders Start: 11-03-2021 End: 11-03-2021 ambulatory IMER PURCELL Facility:[facility] Start: 11-03-2021 Encounter for other preprocedural examination MONIKA GUERRERO [facility] Start: 10-23-2021 Telephone encounter Atif esposito MD Work Phone: General Surgery Comment on above: Request Outside [facility] Records Start: 10-21-2021 End: 10-21-2021 ambulatory MONIKA GUERRERO Facility:[facility] Start: 10-21-2021 End: 10-21-2021 Subsequent hospital visit by physician Arrival Time Radiology Work Phone: Radiology [facility] Comment on above: Paraesophageal herni a [K44.9] Start: 10-06-2021 End: 10-06-2021 ambulatory Jorge Ramirez Other [employer] Other Start: 10-06-2021 Telephone encounter Jorge TREVIÑO G Gastroenterology Start: 10-02-2021 End: 10-02-2021 ambulatory Jorge Ramirez Other [employer] Other Start: 10-02-2021 Telephone encounter Jorge Smith Gastroenterology Start: 10-01-2021 End: 10-01-2021 ambulatory MONIKA GUERRERO Facility:[facility] Start: 10-01-2021 End: 10-01-2021 Patient encounter procedure Atif Mendez MD Work Phone: General Surgery Comment on above: Paraesophageal herni a (Primary Dx) Start: 09-03-2021 Telephone encounter Atif esposito MD Work Phone: General Surgery Comment on above: [facility] Start: 08-25-2021 End: 08-25-2021 ambulatory Jorge Ramirez Other [employer] Other Start: 08-25-2021 Telephone encounter Jorge Smith Gastroenterology Start: 08-12-2021 End: 08-12-2021 ambulatory Jorge Ramirez Other [employer] Other Start: 08-12-2021 Telephone encounter Jorge Smith Gastroenterology Start: 06-02-2021 End: 06-02-2021 ambulatory Gino Paco Other [employer] Other Start: 06-02-2021 Office outpatient vi sit 25 minutes Gino Paco [facility] Start: 01-12-2017 End: 01-13-2017 Ambulatory CATY YODER Facility:[facility] Start: 01-07-2017 End: 01-08-2017 Ambulatory DEFAULT PHYSICIAN Facility:[facility] Procedures Date Procedure Procedure Detail Performing Clinician Start: 07-16-2024 Urine culture Imer Purcell MD Work Phone: Start: 06-19-2024 End: 06-19-2024 SKIN / NAIL BIOPSY Eri Ngo DIRECTOR MARKETING COMMUNICATIONS-COMMERCIAL FINANCE MANAGER Work Phone: Start: 06-19-2024 CRYOTHERAPY SKIN LESION Eri Ngo DIRECTOR MARKETING COMMUNICATIONS-COMMERCIAL FINANCE MANAGER Work Phone: Start: 06-04-2024 ALLERGENS W/COMP RFLX AREA 5 Ben Lucas Jai dickey MD Work Phone: Start: 03-08-2024 MR lumbar spine wo con MD Imer Purcell Work Phone: Start: 03-08-2024 XR pre/post mri xray MD Imer Purcell Work Phone: Start: 03-06-2024 Esophagogastroduodenoscopy MD Imer john Work Phone: Start: 02-13-2024 Radiologic examination knee 1/2 views Jr. Rush Hodgsonoliva DO Work Phone: Start: 01-19-2024 Bacteria identified [...] GARIBAY ON Start: 03-28-2023 ECG 12-LEAD IMER BINH Start: 03-28-2023 Ecg routine ecg w/least 12 lds trcg only w/o i&r Mireille Zurita MD Work Phone: Start: 03-23-2023 DISCHARGE PATIENT IMER PURCELL Start: 03-23-2023 Basic metabolic 2000 panel - Serum or Plasma IMER BINH Start: 03-23-2023 CBC panel - Blood by Automated count IMER BINH Start: 03-23-2023 Basic metabolic panel calcium total Albert Zurita MD Work Phone: Start: 03-22-2023 Basic metabolic 2000 panel - Serum or Plasma IMER VANGDora Start: 03-22-2023 CBC panel - Blood by Automated count IMER BINH Start: 03-22-2023 XR CERVICAL SPINE 2-3 VIEWS IMER HOY Start: 03-22-2023 Basic metabolic panel calcium total Albert Zurita MD Work Phone: Start: 03-22-2023 Radex spine cervical 2 or 3 views Mary Patrick DIRECTOR MARKETING COMMUNICATIONS-SENIOR ANIMAL TRAINER Work Phone: Start: 03-21-2023 IP CONSULT TO [...] Start: 03-14-2023 XR CHEST 2 VIEWS IMER HOY Start: 03-14-2023 STAPHYLOCOCCUS AUREUS/MRSA COLONIZATION, CULTURE IMER HOY Start: 03-14-2023 CBC panel - Blood by Automated count IMER HOY Start: 03-14-2023 COAGULATION SCREEN IMER HOY Start: 03-14-2023 Comprehensive metabolic 2000 panel - Serum or Plasma IMER HOY Start: 03-14-2023 Phosphate [Mass/volume] in Serum or Plasma IMER HOY Start: 03-14-2023 Radiologic exam chest 2 views [...] Activity Detail Author Start: 04-08-2032 Screening for malignant neoplasm of colon [facility] Start: 11-21-2027 RSV Vaccine (1 - 1-dose 75+ series) RSV Vaccine (1 - 1-dose 75+ series) [facility] Start: 06-18-2025 End: 06-18-2025 Patient encounter procedure 06/18/2025 10:50 AM EST Office Visit [facility] [address] [place] [address] Eri Ngo, DIRECTOR MARKETING COMMUNICATIONS-COMMERCIAL FINANCE MANAGER [address] [place] [address] [facility] Start: 11-28-2024 End: 11-28-2024 Patient encounter procedure 11/28/2024 9:50 AM EDT Procedure Visit [facility] [address] [place] [address] Cintia Collado MD [address] [place] [address] [facility] Start: 11-19-2024 End: 11-19-2024 Patient encounter procedure 11/19/2024 10:30 AM EDT Office Visit [facility] [address] [place] [address] Estelle Perez, PA [address] [facility] [address] [place] [address] [facility] Start: 11-17-2024 DIABETES SCREEN DIABETES SCREEN [facility] Start: 11-17-2024 Diabetes Screening Diabetes Screening [facility] Start: 11-14-2024 End: 11-14-2024 Patient encounter procedure 11/14/2024 10:00 AM EDT Office Visit [facility] [address] [place] [address] Cintia Collado MD [address] [place], [place] [id number] [facility] Start: 11-03-2024 DIABETES SCREEN DIABETES SCREEN [facility] Start: 10-08-2024 End: 10-08-2024 Patient encounter procedure 10/08/2024 1:30 PM EDT Office Visit [facility] [address] [place] [phone] Kinjal Garland, EDGE SETTER [address] [place] [address] Arrived [facility] Comment on above: Arrived Start: 09-05-2024 End: 09-05-2024 Patient encounter procedure 09/05/2024 9:20 AM EDT Procedure Visit [facility] [address] [place] [phone] Cintia Collado MD [address] [place] [address] [facility] Start: 08-22-2024 End: 08-22-2024 Patient encounter procedure 08/22/2024 9:30 AM EDT Office Visit [facility] [address] [place] [phone] Cintia Collado MD [address] [place] [address] [facility] Start: 08-16-2024 End: 08-16-2024 Patient encounter procedure 08/16/2024 10:45 AM EDT Office Visit [facility] [address] [place] [phone] Estelle Perez PA [address] [place] [address] [facility] Start: 08-02-2024 Total replacement of right knee joint OR Knee Arthroplasty, Total MIS (Right) [facility] Start: 07-16-2024 Bacteria identified in Urine by Culture Urine Culture [facility] Start: 07-16-2024 Urine culture [facility] Start: 07-05-2024 End: 07-05-2024 Patient encounter procedure [facility] Comment on above: Pre-op examination (Primary Dx); Primary osteoarthritis of right knee Start: 07-02-2024 End: 07-02-2024 Patient encounter procedure [facility] Comment on above: Arrived Start: 06-27-2024 End: 06-27-2024 Patient encounter procedure [facility] Comment on above: Arrived Start: 06-25-2024 End: 06-25-2024 Patient encounter procedure [facility] Comment on above: Arrived Start: 06-20-2024 End: 06-20-2024 Patient encounter procedure 06/20/2024 11:20 AM EST Office Visit [facility] [address] [facility] [address] [place] [address] Ben Florentino MD [address] [place] [address] [facility] Start: 06-19-2024 End: 06-19-2024 Patient encounter procedure 06/19/2024 2:10 PM EST Office Visit [facility] [address] [place] [phone] Eri Ngo, DIRECTOR MARKETING COMMUNICATIONS-COMMERCIAL FINANCE MANAGER [address] [place] [address] Arrived [facility] Comment on above: Arrived Start: 06-14-2024 End: 06-14-2024 Patient encounter procedure 06/14/2024 10:40 AM EST Office Visit [facility] [address] [place] [phone] Eri Ngo, DIRECTOR MARKETING COMMUNICATIONS-COMMERCIAL FINANCE MANAGER [address] [place] [address] [facility] Start: 05-21-2024 End: 05-21-2024 Patient encounter procedure 05/21/2024 10:20 AM EST Office Visit [facility] [address] [place] [address] Heather Bang MD [address] [place] [address] [facility] Start: 05-16-2024 End: 05-16-2024 Patient encounter procedure [facility] Comment on above: Arrived Start: 05-14-2024 End: 05-14-2024 Patient encounter procedure [facility] Start: 04-19-2024 End: 10-18-2024 XR Cervical spine 2 or 3 Views XR cervical spine 2-3 views Imaging Routine Status post cervical spinal fusion Expected: 04/19/2024, Expires: 10/18/2024 [facility] Service Area Work Phone: Comment on above: Expected: 04/19/2024, Expires: Start: 04-09-2024 End: 04-09-2024 Patient encounter procedure 04/09/2024 10:00 AM EST Office Visit [facility] [address] [facility] [address] [place] [phone] Heather Bang MD [address] [facility] [address] [place] [address] [facility] Start: 04-04-2024 End: 04-04-2024 Patient encounter procedure [facility] Comment on above: Arrived Start: 03-29-2024 End: 03-29-2024 Patient encounter procedure 03/29/2024 10:00 AM EST Office Visit [facility] [address] [facility] [address] [place] [id number] Estelle Perez, PA [address] [facility] [address] [place] [address] [facility] Start: 03-21-2024 End: 03-21-2024 Patient encounter procedure 03/21/2024 11:00 AM EST Office Visit [facility] [address] [place] [phone] Mireille Zurita MD [address] [place] [address] [facility] Start: 03-08-2024 MR lumbar spine wo con MR lumbar spine wo con [facility] Start: 03-08-2024 MR Lumbar spine WO contrast [facility] Start: 03-08-2024 XR pre/post mri xray XR pre/post mri xray [facility] Start: 03-08-2024 [facility] Start: 03-06-2024 End: 03-06-2024 [facility] Start: 03-01-2024 End: 03-01-2024 Patient encounter procedure 03/01/2024 11:15 AM EDT Office Visit [facility] [address] [place] [phone] Estelle Perez, PA [address] [facility] [address] [place] [address] Primary osteoarthritis of right knee (Primary Dx); Pre-op examination [facility] Comment on above: Primary osteoarthritis of right knee (Pr imary Dx); Pre-op examination Start: 02-21-2024 DTaP/Tdap/Td Vaccines (2 - Td or Tdap) DTaP/Tdap/Td Vaccines (2 - Td or Tdap) [facility] Start: 02-21-2024 Urine microalbumin profile DTaP,Tdap,Td Vaccine (2 - Td or Tdap) [facility] Start: 02-13-2024 End: 02-13-2024 Patient encounter procedure 02/13/2024 11:00 AM EDT Office Visit [facility] [address] [place] [address] Jr. Rush Knapp DO [address] [place] [address] Arrived [facility] Comment on above: Arrived Start: 01-19-2024 Bacteria identified in Urine by Culture [facility] Start: 01-08-2024 Covid-19 Vaccine ( season) Covid-19 Vaccine () [facility] Start: 01-08-2024 Covid-19 Vaccine () Covid-19 Vaccine () [facility] Start: 01-08-2024 Influenza vaccination [facility] Start: 10-19-2023 End: 10-19-2023 Patient encounter procedure 10/19/2023 11:30 AM EDT Office Visit [address] [phone] Mireille Zurita MD [address] [place] [id number] [facility] Start: 06-16-2023 End: 06-16-2023 Patient encounter procedure 06/16/2023 10:30 AM EST Office Visit [address] [phone] Mireille Zurita MD [address] [place] [address] [facility] Start: 06-10-2023 End: 05-10-2024 XR Cervical spine 2 or 3 Views XR cervical spine 2-3 views Imaging Routine 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 stenosis of cervical region ([facility]/HCC) Expected: 06/10/2023, Expires: 05/10/2024 [facility] Service Area Work Phone: Comment on above: Expected: 06/10/2023, Expires: Start: 05-12-2023 End: 05-12-2023 Patient encounter procedure 05/12/2023 8:30 AM EST Office Visit [address] [phone] Mireille Zurita MD [address] [place] [phone] [facility] Start: 05-09-2023 Advance Directive Discussion Advance Directive Discussion [facility] Start: 05-09-2023 Behavioral Health Screening Behavioral Health Screening [facility] Start: 04-07-2023 End: 04-07-2023 Patient encounter procedure 04/07/2023 1:00 PM EST Office Visit [facility] [address] [place] [phone] Araseli Faustin, DIRECTOR MARKETING COMMUNICATIONS-COMMERCIAL FINANCE MANAGER [address] [place] [address] [facility] Start: 03-21-2023 End: 03-21-2023 Admission to same day surgery center 03/21/2023 7:30 AM EST - 03/21/2023 1:00 PM EST Surgery [facility] [place] [address] [place] [phone] Mireille Zurita MD [address] [place] [id number] C3-4, C4-5, C5-6, C6-7 ANTERIOR DISC EXCISION/ ALLOGRAFT FUSION & PLATE FIXATION WITH FLAT PLATE CERVICAL X-RAY [facility] [place] Comment on above: C3-4, C4-5, C5-6, C6-7 ANTERIOR DISC EXC ISION/ ALLOGRAFT FUSION & PLATE FIXATION WITH FLAT PLATE CERVICAL X-RAY Start: 03-21-2023 End: 03-21-2023 Fusion Spine Anterior Cervical and Discectomy Fusion Spine Anterior Cervical and Discectomy Spinal stenosis, cervical region Other spondylosis with myelopathy, cervical region 03/21/2023 7:30 AM EST [facility] Work Phone: Start: 03-21-2023 Subsequent hospital visit by physician 03/21/2023 6:00 AM EST Hospital Encounter [facility] [place] [address] [place] [phone] Mireille Zurita MD [address] [place] [address] Preop testing (Primary Dx); Cervical spondylosis with myelopathy; Coagulation defect, unspecified (CMS/HCC) [facility] [place] Comment on above: Preop testing (Primary Dx); Cervical spondylosis with myelopathy; Coagulation defect, unspecified (CMS/HCC) Start: 01-20-2023 FUV, Provider: Mireille Zurita, Status: Pen, Time: 1:30 PM FUV, Provider: Mireille Zurita, Status: Pen, Time: 1:30 PM [facility] [address] [facility] [address] Work Phone: Start: 01-07-2023 Covid-19 Vaccine () Covid-19 Vaccine () [facility] Start: 01-07-2023 COVID-19 Vaccine () COVID-19 Vaccine () [facility] Start: 11-17-2022 Creatinine measurement Serum Creatinine [facility] Start: 11-17-2022 SERUM CREATININE SERUM CREATININE [facility] Start: 11-03-2022 HEMOGLOBIN/HEMATOCRIT HEMOGLOBIN/HEMATOCRIT [facility] Start: 11-03-2022 SERUM CREATININE SERUM CREATININE [facility] Start: 07-31-2022 COVID-19 Vaccine (4 - Moderna series) COVID-19 Vaccine (4 - Moderna series) [facility] Start: 07-22-2022 XR pre/post mri xray XR pre/post mri xray [facility] Start: 07-22-2022 [facility] Start: 05-09-2022 ADVANCE DIRECTIVE DISCUSSION ADVANCE DIRECTIVE DISCUSSION [facility] Start: 05-09-2022 DEPRESSION ASSESSMENT DEPRESSION ASSESSMENT [facility] Start: 04-08-2022 [facility] Start: 01-07-2022 Influenza vaccination [facility] Start: 10-01-2021 End: 12-01-2021 CREATININE BLD CREATININE BLD Lab Routine Paraesophageal hernia Expected: 10/01/2021, Expires: 12/01/2021 [facility] Work Phone: Comment on above: Expected: 10/01/2021, Expires: Start: 07-09-2021 COVID-19 VACCINE (4 - Booster for Moderna series) COVID-19 VACCINE (4 - Booster for Moderna series) [facility] Start: 05-09-2021 ADVANCE DIRECTIVE DISCUSSION ADVANCE DIRECTIVE DISCUSSION [facility] Start: 05-06-2021 COVID-19 VACCINE (4 - Booster for Moderna series) COVID-19 VACCINE (4 - Booster for Moderna series) [facility] Start: 2017 BONE DENSITY BONE DENSITY [facility] Start: 2017 Pneumococcal Vaccine: 65+ (1 of 1 - PCV) Pneumococcal Vaccine: 65+ (1 of 1 - PCV) [facility] Start: 2017 Pneumococcal Vaccine: 65+ Years (1 - PCV) Pneumococcal Vaccine: 65+ Years (1 - PCV) [facility] Start: 2017 Pneumococcal Vaccine: 65+ Years (1 of 1 - PCV) Pneumococcal Vaccine: 65+ Years (1 of 1 - PCV) [facility] Start: 2017 PNEUMOCOCCAL: 65+ (1 - PCV) PNEUMOCOCCAL: 65+ (1 - PCV) [facility] Start: 2017 PNEUMOVAX AGE 65 AND OVER WITH 5YR LOOKBACK (#1) PNEUMOVAX AGE 65 AND OVER WITH 5YR LOOKBACK (#1) [facility] Start: 2017 Screening for osteoporosis Bone Density Screening [facility] Start: 03-07-2016 DIABETES SCREEN DIABETES SCREEN [facility] Start: 04-17-2014 Shingrix Vaccine (2 of 3) Shingrix Vaccine (2 of 3) [facility] Start: 04-17-2014 Zoster Vaccines (2 of 3) Zoster Vaccines (2 of 3) [facility] Start: 2012 RSV Vaccine (1 - 1-dose 60+ series) RSV Vaccine (1 - 1-dose 60+ series) [facility] Start: 2002 SHINGRIX VACCINE (1 of 2) SHINGRIX VACCINE (1 of 2) [facility] Start: 1997 COLOGUARD (FIT-DNA) COLOGUARD (FIT-DNA) [facility] Start: 1997 Colonoscopy COLONOSCOPY [facility] Start: 1997 COLORECTAL CANCER SCREENING COLORECTAL CANCER SCREENING [facility] Start: [address] COLONOGRAPHY [facility] Start: 1997 FECAL OCCULT BLOOD FECAL OCCULT BLOOD [facility] Start: 1997 Lipid panel Lipid Screening [facility] Start: 1997 LIPID SCREEN LIPID SCREEN [facility] Start: 1997 Screening for malignant neoplasm of colon [facility] Start: 1997 SIGMOIDOSCOPY SIGMOIDOSCOPY [facility] Start: 1992 Mammography MAMMOGRAM [facility] Start: 1992 Screening for malignant neoplasm of breast [facility] Start: 11-21-1971 Urine microalbumin profile DTAP,TDAP,TD (1 - Tdap) [facility] Start: 11-21-1971 Urine screening for protein CKD: Urine Protein Screening [facility] Start: 1970 ANNUAL PCP TEAM CHRONIC DISEASE VISIT ANNUAL PCP TEAM CHRONIC DISEASE VISIT [facility] Start: 1970 BP CONTROLLED (<130/80) BP CONTROLLED (<130/80) [facility] Start: 1970 Depression Screening Depression Screening [facility] Start: 1970 Diabetes mellitus screening Diabetes Screening [facility] Start: 1970 HEPATITIS C SCREENING HEPATITIS C SCREENING [facility] Start: 1970 Hepatitis C screening Hepatitis C Screening [facility] Start: 1964 Adult depression screening assessment DEPRESSION SCREENING [facility] Start: 1957 COVID-19 VACCINE (1) COVID-19 VACCINE (1) [facility] Start: 1952 Lipid panel Lipid Panel [facility] Start: 1952 Medicare Annual Wellness Visit Medicare Annual Wellness Visit (AWV) [facility] Start: 1952 Screening for malignant neoplasm of colon [facility] Start: 1952 Screening for osteoporosis Bone Density Scan [facility] End: 03-24-2023 Basic metabolic 2000 panel - Serum or Plasma Basic metabolic panel Lab Routine Morning draw (Lab) for 3 Occurrences starting 03/22/2023 until 03/24/2023, 2 completed [facility] Work Phone: Comment on above: Morning draw (Lab) for 3 Occurrences sta rting 03/22/2023 until 03/24/2023, 2 completed End: 03-24-2023 CBC panel - Blood by Automated count CBC Lab Routine Morning draw (Lab) for 3 Occurrences starting 03/22/2023 until 03/24/2023, 2 completed [facility] Service Area Work Phone: Comment on above: Morning draw (Lab) for 3 Occurrences sta rting 03/22/2023 until 03/24/2023, 2 completed End: 10-31-2022 Ct abdomen & pelvis w/contrast material CT ABD/PEL W IVCON Radiology Routine Paraesophageal hernia 1 Occurrences starting 10/01/2021 until 10/31/2022 [facility] Work Phone: Comment on above: 1 Occurrences starting 10/01/2021 until 10/31/2022 Dermatopathology exam Dermatopat hology exam Pathology and Cytology Timed Neoplasm of unspecified behavior of bone, soft tissue, and skin Release Upon Ordering for 1 Occurrences starting 06/19/2024 [facility] Work Phone: Comment on above: Release Upon Ordering for 1 Occurrences starting 06/19/2024 End: 09-28-2022 Esophageal motility study w/interp&rpt MANOMETRY ESOPHAGEAL Endoscopy Routine Paraesophageal hernia 1 Occurrences starting 10/01/2021 until 09/28/2022 [facility] Work Phone: Comment on above: 1 Occurrences starting 10/01/2021 until 09/28/2022 End: 03-21-2023 Incentive spirometry Instruct Incentive spirometry Instruct Respiratory Care Routine Once for 1 Occurrences starting 03/21/2023 until 03/21/2023 [facility] Work Phone: Comment on above: Once for 1 Occurrences starting 03/21/20 until 03/21/2023 Noninvasive Ventilation Noninvas kyle Ventilation Respiratory Care Routine For RT frequency use only for continuous procedures with task-based reminders at 8a and 8p until discontinued starting 03/21/2023 [facility] Work Phone: Comment on above: For RT frequency use only for continuous procedures with task-based reminders at 8a and 8p until discontinued starting 03/21/2023 Patient Education [facility] Work Phone: Renal function 1999 panel - Serum or Plasma [facility] Renal function 1999 panel - Serum or Plasma [facility] End: 03-22-2023 Urethral Catheter Removal Urethral Catheter Removal Procedures Routine Once for 1 Occurrences starting 03/22/2023 until 03/22/2023 [facility] Service Area Work Phone: Comment on above: Once for 1 Occurrences starting 03/22/20 until 03/22/2023 End: 06-09-2023 XR Cervical spine 2 or 3 Views [facility] Work Phone: Comment on above: Once for 1 Occurrences starting 06/09/19 until 06/09/2023 End: 10-13-2023 XR Cervical spine 2 or 3 Views [facility] Work Phone: Comment on above: Once for 1 Occurrences starting 10/13/19 until 10/13/2023 End: 03-16-2024 XR Cervical spine 2 or 3 Views [facility] Work Phone: Comment on above: Once for 1 Occurrences starting 03/16/20 until 03/16/2024 End: 03-14-2023 XR Chest 2 Views [facility] Work Phone: Comment on above: Once for 1 Occurrences starting 03/14/20 until 03/14/2023 End: 10-31-2022 XR UPPER GI SINGLE CONTRAST XR UPPER GI SINGLE CONTRAST Radiology Routine Paraesophageal hernia 1 Occurrences starting 10/01/2021 until 10/31/2022 [facility] Work Phone: Comment on above: 1 Occurrences starting 10/01/2021 until 10/31/2022 [facility] Immunizations Immunization Date Immunization Notes Care Provider Z[facility] 02-22-2024 COVID-19 (MODERNA) 12Y and older Imer Purcell MD Work Phone: [facility] 02-22-2024 influenza virus vaccine, unspecified formulation Estelle BENSON Work Phone: [facility] 03-02-2023 influenza virus vaccine, unspecified formulation Par 5 [facility] Work Phone: 03-02-2023 Respiratory Synctial Virus (Rsv), Unspecified Par 5 [facility] Work Phone: 06-05-2022 Moderna COVID-19 Biv al Booster 50 MCG/0.5ML Intramuscular Suspension Imer Purcell Work Phone: [facility] Work Phone: 05-06-2022 Fluad Quadrivalent 0 .5 ML Intramuscular Prefilled Syringe Imer Purcell Work Phone: [facility]kn[facility] [address] Work Phone: 05-06-2022 influenza virus vaccine, unspecified formulation Freda Donn MENDIETA Work Phone: [facility] 03-11-2021 COVID-19 mRNA-1273 (Moderna) MD Imer Purcell Work Phone: [facility] 08-10-2020 Moderna COVID-19 Vaccine 100 MCG/0.5ML Intramuscular Suspension Imer Cherry Scottdora Work Phone: [facility] 08-08-2020 COVID-19 mRNA-1273 (Moderna) MD Imer Purcell Work Phone: [facility] 07-11-2020 COVID-19 mRNA-1273 (Moderna) MD Imer Purcell Work Phone: [facility] 02-18-2020 Seasonal trivalent influenza vaccine, adjuvanted, preservative free Imer Purcell Work Phone: [facility] Work Phone: 10-08-2015 influenza, seasonal, injectable Gino Barbosa Other [employer] Other 02-20-2014 tetanus toxoid, redu olena diphtheria toxoid, and acellular pertussis vaccine, adsorbed Imer Purcell Work Phone: [facility]Rnfcsidyu[facility] [address] Work Phone: 02-20-2014 zoster vaccine, live Imer Purcell Work Phone: [facility]Qhjjixwxofvk[facility]Ldron [facility] [address] Work Phone: Payers Date Payer Category Payer Self-pay [id number] 2021 Medicare [id number] 2017 Medicare MEDICARE MEDICAR E A AND B [id number] 2017-Present [phone] [place] [address] Medicare [id number] .[id number] 2017 Medicare [id number] .[id number] 2017 Medicare supplementa l policy (as second payer) [employer] SENIOR SUPPLEMENT [id number] .[id number] 5 2017 Private Health Insurance [employer] A ETNA MEDICARE SUPPLEMENT [id number] 2017-Present [phone] [address] [address] [place] [address] Indemnity [id number] .2.7.3.580710.315 2017 Private Health Insurance [id number] .[id number] .2.7.3.585128.315 1959 Medicare [id number] 2.16.840.1.986428.19 1959 Private Health Insurance [facility] [id number] 2.16.840.1.079461.19 1959 Self-pay [id number] 1952 Unknown [id number] 2.16.840.1.886549.3.579 .2.593 1952 Unknown [id number] 2.16.840.1.577615.3.579 .2.593 1952 Unknown [id number] 2.16.840.1.132919.3.579 .2.593 1952 Unknown [id number] 2.16.840.1.170687.3.579 .2.593 1952 Unknown [id number] 2.16.840.1.707145.3.579 .2.593 1952 Unknown [id number] 2.16.840.1.723770.3.579 .2.593 1952 Unknown [id number] 2.16.840.1.847437.3.579 .2.593 1952 Unknown [id number] 2.16.840.1.487980.3.579 .2.593 1952 Unknown [id number] 2.16.840.1.668439.3.579 .2.593 1952 Unknown [id number] 2.16.840.1.740682.3.579 .2.593 1952 Unknown [id number] 2.16.840.1.625089.3.579 .2.593 1952 Unknown [id number] 2.16.840.1.235964.3.579 .2.593 1952 Unknown [id number] 2.16.840.1.286756.3.579 .2.356 1952 Unknown [id number] 2.16.840.1.489928.3.579 .2.356 1952 Unknown [id number] 2.16.840.1.943531.3.579 .2.1259 1952 Unknown [id number] 2.16.840.1.501177.3.579 .2.1246 1952 Unknown [id number] 2.16.840.1.944069.3.579 .2.1246 1952 Unknown [id number] 2.16.840.1.469124.3.579 .2.1246 1952 Unknown [id number] 2.16.840.1.975796.3.579 .2.1246 1952 Unknown [id number] 2.16840.1.818002.3.579 .2.727 1952 Unknown [id number] 2.16.840.1.254303.3.579 .2.1245 1952 Unknown [id number] 2.16.840.1.311663.3.579 .2.1245 1952 Unknown [id number] 2.16.840.1.258901.3.579 .2.1245 1952 Unknown [id number] 2.16840.1.375862.3.579 .2.1245 1952 Unknown [id number] 2.16.840.1.029501.3.579 .2.1243 1952 Unknown [id number] 2.16.840.1.327466.3.579 .2.1243 1952 Unknown [id number] 2.16.840.1.839637.3.579 .2.1243 1952 Unknown [id number] 2.16.840.1.668931.3.579 .2.1243 1952 Unknown [id number] 2.16.840.1.859133.3.579 .2.1244 1952 Unknown [id number] 2.16.840.1.160751.3.579 .2.1258 1952 Unknown [id number] 2.16.840.1.925530.3.579 .2.1258 1952 Unknown [id number] 2.16.840.1.259085.3.579 .2.1258 1952 Unknown [id number] 2.16.840.1.615417.3.579 .2.1258 1952 Unknown [id number] 2.16.840.1.123232.3.579 .2.1258 1952 Unknown [id number] 2.16.840.1.115043.3.579 .2.1258 1952 Unknown [id number] 2.16.840.1.729783.3.579 .2.1258 1952 Unknown [id number] 2.16.840.1.772704.3.579 .2.1258 1952 Unknown [id number] 2.16.840.1.776812.3.579 .2.1258 1952 Unknown [id number] 2.16.840.1.967919.3.579 .2.1258 1952 Unknown [id number] 2.16.840.1.113749.3.579 .2.1258 1952 Unknown [id number] 2.16.840.1.452744.3.579 .2.1258 1952 Unknown [id number] 2.16.840.1.314143.3.579 .2.1258 1952 Unknown [id number] 2.16.840.1.820089.3.579 .2.1258 1952 Unknown [id number] 2.16.840.1.920626.3.579 .2.1259 1952 Unknown [id number] 2.16.840.1.768659.3.579 .2.718 1952 Unknown [id number] 2.16.840.1.727718.3.579 .2.718 Blue Cross Blue Shield [id number] Unknown Unknown [id number] 2.16.840.1.011943.3.579 .2.531 Unknown [id number] 2.16.840.1.221553.3.579 .2.531 Unknown [id number] 2.16.840.1.321804.3.579 .2.531 Unknown [id number] 2.16.840.1.285856.3.579 .2.531 Unknown [id number] 2.16.840.1.008188.3.579 .2.531 Unknown [id number] 2.840.1.309957.3.579 .2.531 Unknown [id number] 2.16.840.1.236128.3.579 .2.531 Social History Date Type Detail Facility Start: 08-06-2021 End: 05-24-2023 Tobacco smoking status [facility] Never smoked tobacco [facility] Start: 11-16-2004 Alcohol intake Not Asked [facility] Start: 1950 Sex Assigned At Not on file [facility] History of tobacco use Chews Tobacco [facility] Start: 10-01-2021 End: 10-08-2024 Alcohol intake Current drinker of alcohol (finding) [facility] Start: 10-01-2021 History SDOH Alcohol Comment 1 drink monthly [facility] Start: 1950 Sex Assigned At Female [facility] Start: 09-21-2021 End: 03-21-2024 Exposure to SARS-CoV-2 (event) Not sure [facility] Start: 03-21-2023 End: 10-08-2024 Sex Assigned At [facility] Start: 12-23-2021 End: 05-24-2023 Tobacco use and exposure Smokeless tobacco non-user [facility] Tobacco smoking stat us MEIS Tobacco smoking consumption unknown [facility] Work Phone: Start: 03-22-2023 Tobacco use and exposure User of smokeless tobacco [facility] Work Phone: Start: 03-21-2023 End: 10-08-2024 History of Social function [facility] How often to you hav e a drink containing alcohol? Never [facility] How many standard drinks containing alcohol do you have on a typical day? Patient does not drink [facility] Work Phone: In the past 12 month s, was there a time when you were not able to pay the mortgage or rent on time? No [facility] Work Phone: Start: 03-22-2023 Alcohol Comment 1 drink/month [facility] Work Phone: How often to you hav e a drink containing alcohol? Monthly or less [facility] How many standard drinks containing alcohol do you have on a typical day? 1 or 2 [facility] Work Phone: Start: 09-24-2021 Gender identity Identifies as female gender (finding) [facility] Start: 09-24-2021 Sexual orientation Heterosexual (finding) [facility] Start: 07-11-2024 End: 10-10-2024 Sex Female (finding) [facility] Medical Equipment Procedure Code Equipment Code Equipment Origin al Text Equipment Identifier Dates Screw, Acp, Self Drill, 3.5 X 15mm, Variable - [id number] - [id number] Start: 03-21-2023 70 Mm 2.1 H Plate [id number] Start: 03-21-2023 Allograft, [employer] 7 X 11 X 14 - [id number] - [id number] Start: 03-21-2023 Allograft, [employer] 6 X 11 X 14 - [id number] - [id number] Start: 03-21-2023 Allograft, [employer] 7 X 11 X 14 - [id number] - [id number] Start: 03-21-2023 Allograft, [employer] 7 X 11 X 14 - [id number] - [id number] Start: 03-21-2023 Goals Date Patient Goal Desired Activity /State Personal health goal Clinical Notes 06-02-2021 to 10-19-2024 Telephone Encounter - Barbara Thacker MA - 10/19/2024 1:42 PM EDTTelephone Encounter - Barbara Thacker MA - 10/19/2024 1:42 PM EDTTelephone Encounter - Barbara Thacker MA - 10/19/2024 1:13 PM EDT Note Date & Type Note Facility 10-19-2024 Telephone encount er Note Called and spoke to patient. She said [...] she would like to do that at [facility]. [facility] 10-19-2024 Miscellaneous Notes Formattin g of this note might be different from the original. Called and spoke to patient. She said [...] she would like to do that at [facility]. I called the patient and left a voicemail requesting a phone call back. + UTI, Rx sent to pharmacy, will need to repeat UA when complete. Thank you. Please notify pt. documented in this encounter [facility] 10-19-2024 Telephone encount er Note I called the patient and left a voicemail requesting a phone call back. [facility] 10-19-2024 Telephone encount er Note + UTI, Rx sent to pharmacy, will need to repeat UA when complete. Thank you. Please notify pt. [facility] 10-17-2024 Note PROCEDURE: XR Bone L ength Studies Scanograms HISTORY: bilateral leg length, no measurements needed COMPARISON: None. FINDINGS: BONES:Mild degenerative changes of the hip joints and ankle joints. Moderate degenerative changes of the knee joints. HIPS: Weightbearing surface of the left femoral head is 1 mm caudal to the right femoral head. KNEES: Left medial tibial plateau is 1 mm caudal to the right medial tibial plateau. ANKLES: Medial aspect of the left talar dome is 2 mm cephalad to the medial corner of the right right talar dome which appears to be secondary to mild valgus deviation of the right ankle. SOFT TISSUES:No visible soft tissue swelling. EFFUSION:None visible. OTHER: Negative. IMPRESSION: 1. No significant leg length discrepancy. Details are above. Final Dictated by: Ana Rosa Bello MD Dictated DT/TM: 10/23/24 9:09 Signed (Electronic Signature): Ana Rosa Bello MD 10/23/24 9:14 am Technologist: [facility] 10-08-2024 History of Presen t illness Narrative Images from the original note were not included. GENERAL HISTORY AND PHYSICAL: NAME: Mary Goode : 1950 HISTORY OF PRESENT ILLNESS: Mary Goode is an 73 y.o. @ female. Here for surgery instructions right total knee arthroplasty November 05 @ [facility]. PAST MEDICAL HISTORY: Past Medical History: Diagnosis Date Acute anemia Dementia (CMS/HCC) Dental disease Years Ear problems Child Fatigue 10+ yrs GERD (gastroesophageal reflux disease) 5+ yrs History of occlusion of patent ductus arteriosus using embolization coil HL (hearing loss) 5 yrs Hydrocephalus Hypercholesteremia (CMS/HCC) Hypertension (CMS/HCC) Incontinence URINARY AND BOWEL Kidney disease STAGE 2 Macular degeneration Meningitis spinal 1955 No blood products JEHOVAH WITNESS Obesity 10+ yrs Recurrent upper respiratory infection (URI) Rhinitis Sleep apnea 10+ yrs Sleep difficulties 10+ yrs PAST SURGICAL HISTORY: Past Surgical History: Procedure Laterality Date ADENOIDECTOMY 1954 BRAIN SURGERY 2008 CATARACT EXTRACTION W/ INTRAOCULAR LENS IMPLANT Bilateral HERNIA REPAIR KIDNEY SURGERY Right RENAL COIL EMBOLISM NECK SURGERY 2022 SEPTOPLASTY 1989 SINUS SURGERY .1979 SKIN CANCER EXCISION N/A TONSILLECTOMY 1954 VENTRICULOPERITONEAL SHUNT 2008 [employer] 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 SOCIAL HISTORY: Social History Occupational History Not on file Tobacco Use Smoking status: Never Smokeless tobacco: Never Vaping Use Vaping status: Never Used Substance and Sexual Activity Alcohol use: Yes Alcohol/week: 3.0 standard drinks of alcohol Types: 3 Standard drinks or equivalent per week Drug use: Never Sexual activity: Not Currently Partners: Decline to Answer control/protection: Abstinence, Female Sterilization ALLERGIES: Allergies Allergen Reactions Other Other MEDICATIONS: Current Outpatient Medications Medication Instructions amLODIPine (Norvasc) 10 MG tablet atorvastatin (Lipitor) 20 MG tablet azelastine (Astelin) 0.1 % nasal spray 2 sprays, Each Nostril, 2 times daily, Use in each nostril as directed cholecalciferol (VITAMIN D-3) 1,000 Units, Daily donepezil (ARICEPT) 5 mg, Nightly ferrous sulfate 325 mg, Daily with breakfast gabapentin (NEURONTIN) 300 mg, 3 times daily hydroCHLOROthiazide (HYDRODiuril) 25 MG tablet labetalol (Normodyne) 200 MG tablet 1 tablet, 2 times daily lansoprazole (PREVACID SOLUTAB) 15 mg, Daily before breakfast losartan (Cozaar) 50 MG tablet Misc. Devices misc Dispense: Front Wheeled walker use 90 days. Ht: 5'2 Weight: 184 Dx M17.11 potassium chloride CR (Klor-Con) 10 MEQ ER tablet 10 mEq, Daily RT venlafaxine XR (EFFEXOR XR) 75 mg, Daily REVIEW OF SYSTEMS: Review of Systems Constitutional: Negative for fatigue, fever and unexpected weight change. Eyes: Negative for redness and visual disturbance. Gastrointestinal: Negative for abdominal pain. Denies Indigestion Musculoskeletal: See note: Skin: Negative for color change and rash. Neurological: Negative for light-headedness and numbness. Vitals: Body mass index is 33.43 kg/m . PHYSICAL EXAM: Physical Exam Constitutional: General: She is not in acute distress. Appearance: Normal appearance. HENT: Head: Normocephalic and atraumatic. Right Ear: External ear normal. Left Ear: External ear normal. Nose: Nose normal. No rhinorrhea. Mouth/Throat: Mouth: Mucous membranes are moist. Pharynx: No posterior oropharyngeal erythema. Eyes: Extraocular Movements: Extraocular movements intact. Conjunctiva/sclera: Conjunctivae normal. Cardiovascular: Rate and Rhythm: Normal rate and regular rhythm. Pulses: Normal pulses. Heart sounds: No murmur heard. Pulmonary: Effort: Pulmonary effort is normal. No [...] osteoarthritis of right knee M17.11 2. Pre-op exam Z01.818 PLAN: This patient presents for preadmission testing for upcoming surgery. Complete history with medical, surgery, and current allergy and medication list obtained. Consent for surgery signed and witnessed after verbal consent to perform surgery received. All questions answered and proposed surgery scheduled. PRE OP SURGERY INSTRUCTIONS NOVEMBER 05 PATIENT HAS EVELIA / ANTOINETTE PURCELL CLEARANCE October @ 10:30 PAT @ MALIK October @ 1 LUCY NOTIFIED Follow up in about 6 weeks (around 11/19/2024) for Post-Op November 19 @ 10:30 with Maricel Perez in [place]. documented in this encounter [facility] 07-11-2024 Evaluation note Diagnosis Onset Date Resolution CKD (chronic kidney disease) stage 3, GFR 30-59 ml/min acute July 11, 2024 8:59am Hyperlipidemia LDL goal <130 acute July 11, 2024 8:59am Hypertensive chronic kidney disease with stage 1 through stage 4 chronic ki acute July 11, 2024 8:59am Hypokalemia acute July 11 8:59am Hyponatremia acute July 11 8:59am Vitamin D deficiency acute 2024 8:59am [facility] Work Phone: [phone] 425-793802-27-2025 History of Present illness Narrative* MARCELINO Garcia - 07/05/2024 9:00 AM EST Images from the original note were not included. GENERAL HISTORY AND PHYSICAL: NAME: Mary Goode : 1950 HISTORY OF PRESENT ILLNESS: Mary Goode is an 73 y.o. @ female. Here for surgery instructions -H&P RT TKA 08/02/24 @ [facility] [place] PAST MEDICAL HISTORY: Past Medical History: Diagnosis Date Acute anemia Dementia (CMS/HCC) Dental disease Years Ear problems Child Fatigue 10+ yrs GERD (gastroesophageal reflux disease) 5+ yrs History of occlusion of patent ductus arteriosus using embolization coil HL (hearing loss) 5 yrs Hydrocephalus (CMS/HCC) Hypercholesteremia (CMS/HCC) Hypertension (CMS/HCC) Incontinence URINARY AND BOWEL Kidney disease STAGE 2 Macular degeneration Meningitis spinal 1955 No blood products JEHOVAH WITNESS Obesity 10+ yrs Recurrent upper respiratory infection (URI) Rhinitis Sleep apnea 10+ yrs Sleep difficulties 10+ yrs PAST SURGICAL HISTORY: Past Surgical History: Procedure Laterality Date ADENOIDECTOMY 1954 BRAIN SURGERY 2009 CATARACT EXTRACTION W/ INTRAOCULAR LENS IMPLANT Bilateral HERNIA REPAIR KIDNEY SURGERY Right RENAL COIL EMBOLISM NECK SURGERY 2022 SEPTOPLASTY 1990 SINUS SURGERY .1980 SKIN CANCER EXCISION N/A TONSILLECTOMY 1954 VENTRICULOPERITONEAL SHUNT 2008 [employer] 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 SOCIAL HISTORY: Social History Occupational History Not on file Tobacco Use Smoking status: Never Smokeless tobacco: Never Vaping Use Vaping status: Never Used Substance and Sexual Activity Alcohol use: Yes Alcohol/week: 3.0 standard drinks of alcohol Types: 3 Standard drinks or equivalent per week Drug use: Never Sexual activity: Not Currently Partners: Decline to Answer control/protection: Abstinence, Female Sterilization ALLERGIES: Allergies Allergen Reactions Other Other MEDICATIONS: Current Outpatient Medications Medication Instructions amLODIPine (Norvasc) 10 MG tablet atorvastatin (Lipitor) 20 MG tablet azelastine (Astelin) 0.1 % nasal spray 2 sprays, Each Nostril, 2 times daily, Use in each nostril as directed cholecalciferol (VITAMIN D-3) 1,000 Units, Daily donepezil (ARICEPT) 5 mg, Oral, Nightly ferrous sulfate 325 mg, Daily with breakfast gabapentin (NEURONTIN) 300 mg, 3 times daily hydroCHLOROthiazide (HYDRODiuril) 25 MG tablet labetalol (Normodyne) 200 MG tablet 1 tablet, 2 times daily lansoprazole (PREVACID SOLUTAB) 15 mg, Daily before breakfast losartan (Cozaar) 50 MG tablet potassium chloride CR (Klor-Con) 10 MEQ ER tablet 10 mEq, Daily RT venlafaxine XR (EFFEXOR XR) 75 mg, Daily REVIEW OF SYSTEMS: Review of Systems Constitutional: Negative for fatigue, fever and unexpected weight change. Eyes: Negative for redness and visual disturbance. Gastrointestinal: Negative for abdominal pain. Denies Indigestion Musculoskeletal: See note: Skin: Negative for color change and rash. Neurological: Negative for light-headedness and numbness. Vitals: Body mass index is 33.76 kg/m . PHYSICAL EXAM: Physical Exam Constitutional: [...] regular rhythm. Pulses: Normal pulses. Heart sounds: Normal heart sounds. No murmur heard. Pulmonary: Effort: Pulmonary effort is normal. No respiratory distress. Breath sounds: Normal breath sounds. No wheezing or rhonchi. Abdominal: Palpations: Abdomen is soft. Tenderness: There is no abdominal tenderness. Musculoskeletal: Cervical back: Normal range of motion and neck supple. Lymphadenopathy: Cervical: No cervical adenopathy. Skin: General: Skin is warm and dry. Findings: No erythema or rash. Comments: Well healing skin biopsy site left groin fold. No s/s of infection Neurological: General: No focal deficit present. Mental Status: She is alert and oriented to person, place, and time. Psychiatric: Mood and Affect: Mood normal. Behavior: Behavior normal. No orders of the defined types were placed in this encounter. ASSESSMENT: ICD-10-CM 1. Pre-op examination Z01.818 2. Primary osteoarthritis of right knee M17.11 PLAN: This patient presents for preadmission testing for upcoming surgery. Complete history with medical, surgery, and current allergy and medication list obtained. Consent for surgery signed and witnessed after verbal consent to perform surgery received. All questions answered and proposed surgeryscheduled. RT TKA 08/02/24 @ [facility] 07/05/23 @ 9 [facility] 07/16/24 @ [address] PURCELL 07/19/24 @ 9:30 ALLERGY TESTING 05/21/24 DR SILVA; NEGATIVE LUCY NOTIFIED PT HAS WALKER PROGRESSIVE PT MEDICARE NO PRECERT REQUIRED Follow up for Post-Op 08/16/24 @ 10:45 [facility] documented in this [facility]St[facility] [id number] Telephone encounter Note* Telephone Encounter - MARCELINO Garcia - 07/02/2024 2:28 PM EST No she can keep appt as scheduled. Thanks [facility] [id number] Miscellaneous Notes* Telephone Encounter - MARCELINO Garcia - 07/02/2024 2:28 PM EST No she can keep appt as scheduled. Thanks * Telephone Encounter - Holly Anne - 07/02/2024 2:18 PM EST Patient called stating she has UTI. She will be on an antibiotic. She has her pre-op appt this weekand wants to know of she should still come in. Patient wants to know if this will interfere with her scheduled surgery. Please advise [phone] or [phone]. documented in this [facility]02-24-2025 Telephone encounter Note* Telephone Encounter - Hollydarya Rodríguez - 07/02/2024 2:18 PM EST Patient called stating she has UTI. She will be on an antibiotic. She has her pre-op appt this weekand wants to know of she should still come in. Patient wants to know if this will interfere with her scheduled surgery. Please advise [phone] or [phone]. [facility] [id number] History of Present illness Narrative* Heather Bang MD - 07/02/2024 11:20 AM EST Mary Goode returns to the office today For her final patch test reading for common orthopedic metals. Patch testing in the office today is negative for all of the common orthopedic metals. Although her earrings gave her redness of the ear she has been able to tolerate other jewelry including her wrist watch and the rivit on her jeans. I let her know that she may receive an orthopedic joint implant as clinically indicated. We agreed she will continue to use azelastine nasal spray intermittently and follow-up was arranged on an as needed basis. documented in this [facility]02-19-2025 History of Present illness Narrative* Heather Bang MD - 06/27/2024 11:00 AM EST Mary Goode returns to the office today for her 1st patch test interpretation at the 48 hourmark. Her patch testing is negative for the common orthopedic metals. We agreed she will lona the areas daily and follow up in 5 days for her final patch test interpretation. documented in this [facility]02-17-2025 History of Present illness Narrative* Heather Bang MD - 06/25/2024 11:00 AM EST The patient presents to the office today for patch testing. Patch testing was placed under direct physician supervision for the orthopedic metal test series. The patient was given detailed instructions on how to care for this and we reviewed the importance of avoiding exercise, heavy sweating and showering for 48 hours. Follow-up was arranged in 2 days for removal of the patch test and the 1st patch test interpretation. documented in this [facility]02-12-2025 History of Present illness Narrative* Ben Florentino MD - 06/20/2024 11:20 AM EST Subjective Patient ID: Mary Goode is a 73 y.o. female who presents for Facial Injury (Follow up CT [facility] 05/21/24. RAST test) CT shows no [facility] fx and RAST negative. Nasal prays still helping nasal obstruction. Family History Problem Relation Name Age of Onset Cancer Mother Araseli Goode Heart failure Father Tin Goode Hypertension Father Tin Sanabriasnimanoj Migraines Father Tin Sanabriasnimanoj Stroke Brother Davi Raifsnider Diabetes Brother Davi Sanabriasnider Cancer Brother Davi Raifsnider Hearing loss Brother Davi Raifsnider Heart failure Brother Davi Raifsnider Hypertension Brother Davi Raifsnider Migraines Brother Davi Raifsnider Diabetes Brother Elijah (Brother) Hearing loss Brother Elijah (Brother) Stroke Brother Elijah (Brother) Hearing loss Brother Ziyad (Brother) Macular degeneration Father's Sister Melanoma Neg Hx Active Ambulatory Problems Diagnosis Date Noted Abnormality of gait 08/19/2005 Anxiety 03/12/2023 Chest pain 01/07/2017 CKD (chronic kidney disease) stage 3, GFR 30-59 ml/min ([facility]) ([facility]) 03/12/2023 Congenital hydrocephalus ([facility]) 02/08/2005 Dyspnea 01/07/2017 Essential hypertension ([facility]) 03/12/2023 Murmur 03/12/2023 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 stenosis of cervical region ([facility]) 03/12/2023 ADITI (obstructive sleep apnea) 03/12/2023 Osteoarthritis of right knee 05/11/2024 Status post cervical spinal fusion 06/16/2023 Spine disorder 03/21/2023 Resolved Ambulatory Problems Diagnosis Date Noted No Resolved Ambulatory Problems Past Medical History: Diagnosis Date Dementia ([facility]) Dental disease Years Ear problems Child Fatigue 10+ yrs GERD (gastroesophageal reflux disease) 5+ yrs History of occlusion of patent ductus arteriosus using embolization coil HL (hearing loss) 5 yrs Hydrocephalus ([facility]) Hypercholesteremia ([facility]) Hypertension ([facility]) Macular degeneration Meningitis spinal 1955 No blood products Obesity 10+ yrs Recurrent upper respiratory infection (URI) Rhinitis Sleep apnea 10+ yrs Sleep difficulties 10+ yrs Past Surgical History: Procedure Laterality Date ADENOIDECTOMY 1954 BRAIN SURGERY 2009 CATARACT EXTRACTION W/ INTRAOCULAR LENS IMPLANT Bilateral HERNIA REPAIR KIDNEY SURGERY Right RENAL COIL EMBOLISM NECK SURGERY 2022 SEPTOPLASTY 1989 SINUS SURGERY .1979 TONSILLECTOMY 1954 VENTRICULOPERITONEAL SHUNT 2008 [employer] 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 Use in each nostril as directed. 90 mL 3 cholecalciferol (Vitamin D-3) 25 MCG (1000 UT) capsule Take 1,000 Units by mouth Daily citalopram (CeleXA) 40 MG tablet Take 1 tablet every day by oral route for 30 days. ferrous sulfate 325 (65 Fe) MG tablet Take 325 mg by mouth in the morning. Take with meals. gabapentin (Neurontin) 300 MG capsule Take 300 mg by mouth in the morning and 300 mg in the eveningand 300 mg before bedtime. hydroCHLOROthiazide (HYDRODiuril) 25 MG tablet labetalol (Normodyne) 200 MG tablet Take 1 tablet by mouth in the morning and 1 tablet before bedtime. lansoprazole (Prevacid SoluTab) 15 MG disintegrating tablet Take 15 mg by mouth in the morning. Take before meals. Dissolve on tongue before swallowing particles; do not chew, cut, break, or swallow whole.. losartan (Cozaar) 50 MG tablet potassium chloride CR (Klor-Con) 10 MEQ ER tablet Take 10 mEq by mouth in the morning. venlafaxine XR (Effexor XR) 75 MG 24 hr capsule Take 75 mg by mouth Daily Do not crush or chew. [DISCONTINUED] diclofenac (Voltaren) 75 MG EC tablet Take 75 mg by mouth in the morning and 75 mg before bedtime. No current facility-administered medications on file prior to visit. Objective Last Recorded Vitals Vitals: 06/20/24 1123 BP: 88/61 Pulse: (!) 125 ENT Physical Exam Constitutional Appearance: patient appears well-developed, well-nourished and well-groomed, Communication/Voice: communication appropriate for developmental age; vocal quality normal; Assessment/Plan Diagnoses and all orders for this visit: Nasal obstruction Good medical contraol. Saline irrigations for persistent sx in the morning documented in this encounterN[facility] [id number] History of Present illness Narrative* Eri Ngo, PAWEL-COMMERCIAL FINANCE MANAGER - 06/19/2024 2:10 PM EST Images from the original note were not included. Skin Check Location: Patient requests a full body skin examination Dermatologic history: history of Basal Cell Carcinoma, no family history of melanoma BCC history on chest and right side of face) Last visit: years ago New patient Lesions: Location: face Duration: 2 years Quality: denies pain, denies itch, denies bleeding Modifying factors: wears a c-pap Associated symptoms: red, rough, scaly Treatments: none Location # 2: abdomen Duration: years Quality: bleeding, denies pain, denies itch Modifying factors: none Associated symptoms: redness, raw looking Treatments: PCP stated its from rubbing. Hydrocortisone cream prescribed by PCP All pertinent medical history, medications, and allergies were reviewed. General Exam: alert, oriented to person, place, and time, normal affect, well appearing Unaccompanied Areas not examined despite medical recommendation: Scalp, Examined Right leg Examined Head, Face Examined Left leg Examined Neck Examined Right foot Examined Chest Examined Left foot Examined Back Examined Buttocks Examined Abdomen Examined Digits,nails: Examined Right arm Examined Left arm Examined Lymphatics: Not examined Hands Examined 1. Melanocytic nevus of trunk Torso - Posterior (Back) Scattered benign appearing, regular brown to light brown melanocytic papules and macules with similar morphology Counseled regarding these benign growths. Rarely, a nevus can develop into malignant melanoma, so any changing nevi should be promptly re-evaluated. 2. Melanocytic nevus of face, other location Head - Anterior (Face) Scattered benign appearing, regular brown to light brown melanocytic papules and macules with similar morphology Counseled regarding these benign growths. Rarely, a nevus can develop into malignant melanoma, so any changing nevi should be promptly re-evaluated. 3. Capillary angioma Scattered taylor-red papule(s). The patient was informed that angiomas are benign growths on the the skin. No treatment is necessary. 4. Lentigines Scattered oates macules in sun-exposed areas. The patient was informed that lentigines are benign pigmented lesions that occur on sun-exposed andsun-damaged skin. No treatment is necessary. Recommended regular use of broad spectrum sunscreen SPF 30 or higher 5. Seborrheic keratosis Stuck on verrucous, oates-brown papules and plaques. Patient was counseled regarding these benign growths. Removal is normally not necessary, but they may be removed if they are symptomatic or for cosmetic reasons. 6. Actinic keratosis (5) Left Forehead, Left Malar Cheek, Left Parotid Area, Mid Tip of Nose, Right Malar Cheek Erythematous scaly papules Patient was counseled regarding these sun-induced growths that can develop into squamous cell carcinoma if left untreated. Discussed treatment with cryotherapy. It was emphasized that any treated lesions that fail to resolve should be re- evaluated. Cryotherapy performed today; see procedure note Diagnosis: Actinic keratosis Indication: Precancerous Location: see skin exam Consent: Verbal consent was obtained and risks were discussed, including, but not limited to risks of scarring, darker or sidehand pigmentary changes, recurrence, incomplete removal and infection. Method: Liquid nitrogen was used to treat the lesion(s) with two 5-10 second freeze-thaw cycles. Number of lesions treated: 5 Post-procedure instructions: Instructions were given orally and in writing. The office will be contacted if the lesion fails to resolve despite treatment, or if a side effect develops such as abnormal crusting, scabbing, redness or tenderness. Biopsy is in reserve if lesions fail to resolve. Cryotherapy, skin lesion - Left Forehead, Left Malar Cheek, Left Parotid Area, Mid Tip of Nose, Right Malar Cheek 7. Neoplasm of unspecified behavior of bone, soft tissue, and skin (2) Left chest [place] papule Lesion biopsy Type of biopsy: tangential Informed consent: discussed and consent obtained Informed consent comment: The risks and benefits of the biopsy were discussed. Risks include but are not limited to bleeding, infection, scarring, pain, and nerve damage. An opportunity to ask questions prior to the procedure was permitted and all questions were answered. Patient was prepped and draped in usual sterile fashion: area cleansed with alcohol. Anesthesia: the lesion was anesthetized in a standard fashion Anesthetic: 1% lidocaine w/ epinephrine 1-100,000 buffered w/ 8.4% NaHCO3 Instrument used: DermaBlade Hemostasis achieved with: electrodesiccation Outcome: patient tolerated procedure well Outcome comment: The specimen was placed in a prelabeled formalin container to be sent for pathology Post-procedure details: sterile dressing applied and wound care instructions given Post-procedure details comment: Emphasized need to contact clinic for any signs of infection, uncontrollable bleeding, or complications. Dressing type: bandage Additional details: Photo taken Amount of lidocaine used: 1.0 cc Specimen A - Dermatopathology exam Differential Diagnosis: BCC vs other Check Margins: No Size of lesion: 1.0 x 0.5 cm Left Inguinal Area Hyperkeratotic patch Lesion biopsy Type of biopsy: tangential Informed consent: discussed and consent obtained Informed consent comment: The risks and benefits of the biopsy were discussed. Risks include but are not limited to bleeding, infection, scarring, pain, and nerve damage. An opportunity to ask questions prior to the procedure was permitted and all questions were answered. Patient was prepped and draped in usual sterile fashion: area cleansed with alcohol. Anesthesia: the lesion was anesthetized in a standard fashion Anesthetic: 1% lidocaine w/ epinephrine 1-100,000 buffered w/ 8.4% NaHCO3 Instrument used: DermaBlade Hemostasis achieved with: electrodesiccation Outcome: patient tolerated procedure well Outcome comment: The specimen was placed in a prelabeled formalin container to be sent for pathology Post-procedure details: sterile dressing applied and wound care instructions given Post-procedure details comment: Emphasized need to contact clinic for any signs of infection, uncontrollable bleeding, or complications. Dressing type: bandage Additional details: Photo taken Amount of lidocaine used: 2.0 cc Specimen B - Dermatopathology exam Differential Diagnosis: BCC vs other Check Margins: No Size of lesion: 5.0 x 2.0 cm Shave biopsy today, see procedure note. Patient will be notified of results. Follow up pending biopsy results. Next Visit: pending biopsy results, 1 year skin exam documented in this encounterNortheast Regional Medical [id number] Telephone encounter Note* Telephone Encounter - Jaylin Florentino - 05/22/2024 1:39 PM EST Pt called in/told her what Dr Florentino said. [facility] [id number] Miscellaneous Notes* Telephone Encounter - Jaylin Florentino - 05/22/2024 1:39 PM EST Pt called in/told her what Dr Florentino said. * Telephone Encounter - Jaylin Florentino - 05/22/2024 11:44 AM EST Left message for pt to call Dr Florentino's office. * Telephone Encounter - Ben Florentino MD - 05/21/2024 3:08 PM EST Tell pt her CT does not show any facial fracture documented in this encounterNortheast Regional Medical CenterKmrxyoiuwa03-15-4957 Telephone encounter Note* Telephone Encounter - Jaylin Florentino - 05/22/2024 11:44 AM EST Left message for pt to call Dr Florentino's office. [facility] CenterPupmfpdoah25-21-4027 Telephone encounter Note* Telephone Encounter - Ben Florentino MD - 05/21/2024 3:08 PM EST Tell pt her CT does not show any facial fracture [facility] [id number] History of Present illness Narrative* Ben Florentino MD - 05/16/2024 10:30 AM EST Subjective Patient ID: Mary Goode is a 73 y.o. female who presents for Nasal Congestion Pt reports night time nasal congestion and rhinorrhea. Has also had some episodes of awakening withcat nearby and she is wheezing and has difficulty catching breath. CT sinus obtained that did not shows sig sinus dz. There is a mild DNS to the RT, evy IT hyp and a RT MMA. Tx with mult abx that didnot help. Pt has seen Dr Bang and started on flonase. Has now used 2-3 weeks and it is helping.RT nose chronically obstructed per pt. Pt had remote sinus surgery with Papa Pt reports last Loki she fell striking her left cheek. Seen in the ED but only her shoulder was imaged per pt. Review of Systems Constitutional: Negative for chills and fever. HENT: Positive for postnasal drip. Negative for ear pain, rhinorrhea and sore throat. Respiratory: Positive for cough. Negative for shortness of breath and wheezing. Cardiovascular: Negative for chest pain. Musculoskeletal: Negative for myalgias. Skin: Negative for rash. Neurological: Negative for headaches. All other systems reviewed and are negative. Family History Problem Relation Name Age of Onset Cancer Mother Araseli Goode Stroke Brother Dvai Goode Diabetes Brother Davi Goode Cancer Brother Davi Goode Hearing loss Brother Davi Goode Heart failure Brother Davi Goode Hypertension Brother Davi Goode Migraines Brother Davi Goode Macular degeneration Father's Sister Heart failure Father Tin Goode Hypertension Father Tin Goode Migraines Father Tin Goode Diabetes Brother Elijah (Brother) Hearing loss Brother Elijah (Brother) Stroke Brother Elijah (Brother) Hearing loss Brother Ziyad (Brother) Active Ambulatory Problems Diagnosis Date Noted Age-related nuclear cataract of both eyes 05/24/2023 Abnormality of gait 08/19/2005 Anxiety 03/12/2023 Burning tongue syndrome 05/11/2024 Chest pain 01/07/2017 CKD (chronic kidney disease) stage 3, GFR 30-59 ml/min ([facility]) ([facility]) 03/12/2023 Congenital hydrocephalus ([facility]/HCC) 02/08/2005 Dyspnea 01/07/2017 Hiatal hernia 11/16/2021 Essential hypertension (CMS/HCC) 03/12/2023 Murmur 03/12/2023 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 stenosis of cervical region ([facility]/HCC) 03/12/2023 ADITI (obstructive sleep apnea) 03/12/2023 Osteoarthritis of right knee 05/11/2024 Status post cervical spinal fusion 06/16/2023 Spine disorder 03/21/2023 Resolved Ambulatory Problems Diagnosis Date Noted No Resolved Ambulatory Problems Past Medical History: Diagnosis Date Dementia (CMS/HCC) Dental disease Years Ear problems Child Fatigue 10+ yrs GERD (gastroesophageal reflux disease) 5+ yrs History of occlusion of patent ductus arteriosus using embolization coil HL (hearing loss) 5 yrs Hydrocephalus (CMS/HCC) Hypercholesteremia (CMS/HCC) Hypertension (CMS/HCC) Macular degeneration Meningitis spinal 1955 No blood products Obesity 10+ yrs Recurrent upper respiratory infection (URI) Rhinitis Sleep apnea 10+ yrs Sleep difficulties 10+ yrs Past Surgical History: Procedure Laterality Date ADENOIDECTOMY 1954 BRAIN SURGERY 2009 CATARACT EXTRACTION W/ INTRAOCULAR LENS IMPLANT Bilateral HERNIA REPAIR KIDNEY SURGERY Right RENAL COIL EMBOLISM NECK SURGERY 2022 SEPTOPLASTY 1989 SINUS SURGERY .1979 TONSILLECTOMY 1954 VENTRICULOPERITONEAL SHUNT 2008 [employer] 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 Use in each nostril as directed. 90 mL 3 cholecalciferol (Vitamin D-3) 25 MCG (1000 UT) capsule Take 1,000 Units by mouth Daily citalopram (CeleXA) 40 MG tablet Take 1 tablet every day by oral route for 30 days. diclofenac (Voltaren) 75 MG EC tablet Take 75 mg by mouth in the morning and 75 mg before bedtime. ferrous sulfate 325 (65 Fe) MG tablet Take 325 mg by mouth in the morning. Take with meals. gabapentin (Neurontin) 300 MG capsule Take 300 mg by mouth in the morning and 300 mg in the eveningand 300 mg before bedtime. hydroCHLOROthiazide (HYDRODiuril) 25 MG tablet labetalol (Normodyne) 200 MG tablet Take 1 tablet by mouth in the morning and 1 tablet before bedtime. lansoprazole (Prevacid SoluTab) 15 MG disintegrating tablet Take 15 mg by mouth in the morning. Take before meals. Dissolve on tongue before swallowing particles; do not chew, cut, break, or swallow whole.. losartan (Cozaar) 50 MG tablet potassium chloride CR (Klor-Con) 10 MEQ ER tablet Take 10 mEq by mouth in the morning. venlafaxine XR (Effexor XR) 75 MG 24 hr capsule Take 75 mg by mouth Daily Do not crush or chew. [DISCONTINUED] coenzyme Q-10 100 MG capsule Take 1 capsule every day by oral route. [DISCONTINUED] hydrALAZINE (Apresoline) 50 MG tablet Take 1 tablet twice a day by oral route for 30days. [DISCONTINUED] omeprazole (PriLOSEC) [address] capsule Take 1 capsule every day by oral route for 30days. No current facility-administered medications on file prior to visit. Objective Last Recorded Vitals Vitals: 05/16/24 1026 BP: 106/67 Pulse: 72 ENT Physical Exam Constitutional Appearance: patient appears well-developed, well-nourished and well-groomed, Head and Face Appearance: head appears normal; facial injury present; Head and Face comments: Marked LT facial bruising with orbital rim tenderness Ear Ear Canals: right ear canal normal; left ear canal normal; Tympanic Membranes: right tympanic membrane normal; left tympanic membrane normal; Nose External Nose: nares patent bilaterally; external nose normal; Internal Nose: septum normal; Oral Cavity/Oropharynx Tongue: normal; Oral mucosa: normal; Hard palate: normal; Soft palate: normal; Tonsils: normal; Neck Neck: neck normal; neck palpation normal; Thyroid: thyroid normal; Respiratory Inspection: breathing unlabored; normal breathing rate; Auscultation: breath sounds are clear; Cardiovascular Inspection: extremities are warm and well perfused; no peripheral edema present; Auscultation: regular rate and rhythm; Assessment/Plan Diagnoses and all orders for this visit: Facial trauma, initial encounter May have a left [facility]MC fx. CT maxillofacial. Nasal obstruction Responding to flonase. Due to IT hyp. Check RAST to evaluate for cat allergy. Answers submitted by the patient for this visit: Cough Questionnaire (Submitted on 05/12/2024) Chief Complaint: Cough Chronicity: chronic Onset: more than 1 month ago Progression since onset: waxing and waning Frequency: every few hours Cough characteristics: non-productive ear congestion: Yes heartburn: Yes hemoptysis: No nasal congestion: Yes sweats: No weight loss: No Aggravated by: cold air, lying down, pollens Risk factors for lung disease: animal exposure documented in this encounterNortheast Regional Medical [id number] History of Present illness Narrative* Heather Bang MD - 04/04/2024 10:00 AM EST She is scheduled for TKA in the near future. She had her surgery cancelled due to awaiting need forpatch test. She reports that she has had an allergy to cheap jewelry in the past which would makeher ears red and hot. She wears jeans [...] add azelastine nasal spray to [facility] [place]. Allergic contact dermatitis - patch test in 1-4 weeks. I described the need to avoid oral steroids sun bathing and topical steroids for 2 weeks prior to patch testing and the need to avoid showering exercising and sweating heavily for 48 hours after application of the patch test. documented in this encounterNortheast Regional Medical [id number] History of Present illness Narrative* Heather Bang MD - 04/02/2024 10:00 AM EST The patient presents to the office today [...] her surgery cancelled due to awaiting need forpatch test. She reports that she has had an allergy to cheap jewelry in the past which would makeher ears red and hot. She wears jeans [...] longer period of time. documented in this encounterNortheast Regional Medical CenterCahjvrbnun14-53-6311 History of Present illness Narrative* Mireille Zurita MD - 03/21/2024 11:00 AM EST Images from the original note were not included. [facility] [place] Department of Neurological Surgery Established Patient Visit History of Present Illness Mary Goode is a 73 y.o. year old female who presents to the spine clinic in follow up with her 1 year set of x-rays following her 4 level anterior cervical disc excision with interbody fusionand plate fixation from C3-4, C4-5, C5-6, to C6-7. She is doing quite well with her neck and her arm function and even her walking. Her 2 main issues are her right knee which she is scheduled to havea knee replacement soon for and a new [...] but she was grateful that I had asuggestion for her. We are happy to see [...] Refusal of blood transfusions as patient is [place] Renal artery aneurysm (CMS-HCC) Scoliosis Sleep apnea [...] (25 mg) by mouth once daily., Disp: ,Rfl: iron 18 mg tablet, Take by mouth once every 24 hours., Disp: , Rfl: ketorolac (Acular) 0.5 % ophthalmic solution, PLACE 1 DROP INTO AFFECTED EYE(S) ONCE IN THE MORNINGAND ONCE BEFORE BEDTIME, Disp: , Rfl: lansoprazole (Prevacid) [address] capsule, Take 1 capsule (30 mg) by mouth once daily., Disp: , Rfl: losartan (Cozaar) 50 mg tablet, Take 1 tablet (50 mg) by mouth once daily., Disp: , Rfl: ofloxacin (Ocuflox) 0.3 % ophthalmic solution, PLEASE SEE ATTACHED FOR DETAILED DIRECTIONS, Disp: ,Rfl: potassium chloride CR 10 mEq ER tablet, [...] and reviewed the electronic medical record since admission.I have personally have reviewed all advanced imaging not just the reports and used my interpretation as documented as the relevant findings. I have reviewed the risks and benefits of all treatment rec ommendations listed in this note with the patient [...] plan of care after leaving. My office canbe reached at M-F 8am-4pm. To clinicians, thank you very much for this kind referral. It is a privilege to partner with you inthe care of your patients. My office would be delighted to assist you with any further consultations or with questions regarding the plan of care outlined. Do not hesitate to call the office or contact me directly. Sincerely, Mireille Zurita MD, FAANS, FACS Board Certified Neurological Surgeon [place], Department of Neurological Surgery [facility] [employer] [facility] [address] [place] [address] [facility] [address] [place] [address] documented in this encounterCoshocton Regional Medical Center Work Phone: [phone]) 656-542910-29-2024 [facility]Park[facility]28-[facility] Telephone encounter Note* Telephone Encounter - Denise Patel MA - 03/05/2024 2:00 PM EDT Patient presents in office last week 03/01 for PAT. She informed maricel that she has had issues in the past with cheap jewelry redness and puss noted. Case was discussed with Dr. Knapp who is recommending that patient proceed with allergy testing prior to proceeding with a (R[facility]. Patient has been made aware and is understanding. Sx and upcoming appts have been cx. Referral has been sent to commercial green building designer. Will r/s sx once testing is scheduled. [facility] [id number] Miscellaneous Notes* Telephone Encounter - Denise Patel MA - 03/05/2024 2:00 PM EDT Patient presents in office last week 03/01 for PAT. She informed maricel that she has had issues in the past with cheap jewelry redness and puss noted. Case was discussed with Dr. Knapp who is recommending that patient proceed with allergy testing prior to proceeding with a (R) [facility]. Patient has been made aware and is understanding. Sx and upcoming appts have been cx. Referral has been sent to commercial green building designer. Will r/s sx once testing is scheduled. documented in this encounterNortheast Regional Medical [id number] History of Present illness Narrative* MARCELINO Garcia - 03/01/2024 11:15 AM EDT Images from the original note were not included. GENERAL HISTORY AND PHYSICAL: NAME: Mary Goode : 1950 HISTORY OF PRESENT ILLNESS: Mary Goode is an 73 y.o. @ female. Here for surgery instructions - (R) TKA 03/15/2024 @[facility] PAST MEDICAL HISTORY: [...] surgery received. All questions answered and proposed surgeryscheduled. (R) TKA 03/15 @[facility] SX INSTRUCTIONS GIVEN TODAY 03/01 @11:15AM Zander ALEXANDER PST 03/05 @10:30AM DR. PURCELL CLEARANCE 03/12 @9:15BESYS AYALA NOTIFIED NO PREOP PAYMENT / PRECERT ; MEDICARE Follow up for 03/29/24 @ 10:00 - Catherine Kaur. documented in this encounterNortheast Regional Medical [id number] History of Present illness Narrative* Rush Kalina Knapp, DO - 02/13/2024 11:00 AM EDT Images from the original note were not included. HISTORY OF PRESENT ILLNESS: EST PT Mary Goode is an 73 y.o. @ female. EST PT WITH [facility] (LAST SEEN 08/2022) RECHECK RT KNEE PAIN FOR YEARS- SYMPTOMS GRADUALLY INCREASING -POSSIBLY DISCUSS SURGERY TODAY XRAY RT KNEE TODAY EPIC 02/13/24 XRAY EXA 08/25/22 XRAY [facility] 06/24/22 XRAY [facility] 08/03/22 MRI [facility] 08/03/22 HX CORTISONE [...] Tobacco Use: Low Risk (10/19/2023) [facility] Patient History Smoking Tobacco Use: Never Smokeless Tobacco Use: Never Passive Exposure: Not on file Alcohol Use: Not At Risk (04/07/2023) [facility], [facility] AUDIT-C Frequency of Alcohol Consumption: Monthly or less Average Number of Drinks: 1 or 2 Frequency of Binge Drinking: Never IMAGING: XR knee 1 or 2 views right Imaging Result: X-rays AP and lateral of right knee showed severe Valgus deformity with cigh-me-mccl articulation to the lateral joint line. There [...] discussed both surgical and nonsurgical intervention, with therisks and benefits of both. Patient is requesting [...] including the patient's age and longevity of pr osthesis, usual postop course and possible need for [...] failure, liver failure, diabetes, cardiac event in thelast year, sleep apnea, bleeding disorder, excessive tobacco use, or if at the time of surgery the patient is greater than 80 years old, or requires discharged to a [facility] facility, the patient may require to have additional inpatient hospital stay following the surgery. Physical therapy is contraindicated in this patient's case because of [id number]-zk-[id number] articulation of the patient's knee. Rush Knapp D.O. documented in this encounterNortheast Regional Medical [id number] History of Present illness Narrative* Mireille Zurita MD - 10/19/2023 11:30 AM EDT Images from the original note were not included. [facility] [place] Department of Neurological Surgery Established Patient Visit [...] motion. She would like to start working onher golf game. I gave her permission today [...] Refusal of blood transfusions as patient is [place] Renal artery aneurysm (CMS-HCC) Scoliosis Sleep apnea [...] (25 mg) by mouth once daily., Disp: ,Rfl: labetalol (Normodyne) 100 mg tablet, Take 1 [...] DROP INTO AFFECTED EYE(S) ONCE IN THE MORNINGAND ONCE BEFORE BEDTIME, Disp: , Rfl: ofloxacin (Ocuflox) 0.3 % ophthalmic solution, PLEASE SEE ATTACHED FOR DETAILED DIRECTIONS, Disp: ,Rfl: No Known Allergies Physical Examination: Her neck is well-healed so that you cannot see the incision. She moves well she does not hesitate to raise her arms and move them above her head. And her balance seems to be strong when she stands upto walk. Results: I personally reviewed and interpreted the imaging results which included the x- rays that were done this week of her [...] and reviewed the electronic medical record since admission.I have personally have reviewed all advanced imaging not just the reports and used my interpretation as documented as the relevant findings. I have reviewed the risks and benefits of all treatment rec ommendations listed in this note with the patient [...] plan of care after leaving. My office canbe reached at M-F 8am-4pm. To clinicians, thank you very much for this kind referral. It is a privilege to partner with you inthe care of your patients. My office would be delighted to assist you with any further consultations or with questions regarding the plan of care outlined. Do not hesitate to call the office or contact me directly. Sincerely, Mireille Zurita MD, FAANS, FACS Board Certified Neurological Surgeon [employer]oman, Department of Neurological Surgery [facility] [address] [place] [address] [facility] [address] [place] [address] documented in this encounterCoshocton Regional Medical Center Work Phone: 1(317) 771-820302-08-2024 History of Present illness Narrative* Mireille Zurita MD - 06/16/2023 10:30 AM EST Images from the original note were not included. [facility] [place] Department of Neurological Surgery Post Operative Patient Visit History of Present Illness: Mary Goode is a 72 y.o. year old female who presents to the spine clinic in a post operative visit. They are status post 4 level ACDF and P. She is doing quite well. Her latest x- rays show that everything is holding steady. I would like her to continue to work on her posture. Just in the office shecaught herself looking down too far. I think it is time to get her into a soft collar and I gave her her weaning instructions. I am going to give her a prescription for physical therapy. She is goingto work on upper extremity strengthening and posture [...] Refusal of blood transfusions as patient is [place] Renal artery aneurysm (CMS/HCC) Scoliosis Sleep apnea [...] (25 mg) by mouth once daily., Disp: ,Rfl: iron 18 mg tablet, Take by mouth once every 24 hours., Disp: , Rfl: ketorolac (Acular) 0.5 % ophthalmic solution, PLACE 1 DROP INTO AFFECTED EYE(S) ONCE IN THE MORNINGAND ONCE BEFORE BEDTIME, Disp: , Rfl: labetalol [...] PLEASE SEE ATTACHED FOR DETAILED DIRECTIONS, Disp: ,Rfl: potassium chloride CR 10 mEq ER tablet, Take 1 tablet (10 mEq) by mouth once daily., Disp: , Rfl: venlafaxine (Effexor) 75 mg tablet, Take by mouth., Disp: , Rfl: acetaminophen (Tylenol) 325 mg tablet, Take 3 tablets (975 mg) by mouth every 8 hours if needed formild pain (1 - 3). (Patient not taking: Reported on 05/10/2023), Disp: , Rfl: cyclobenzaprine (Flexeril) 10 mg tablet, Take 1 tablet (10 mg) by mouth 3 times a day as needed formuscle spasms (post op pain)., Disp: 30 tablet, [...] plan of care after leaving. My office canbe reached at M-F 8am-4pm. To clinicians, thank you very much for this kind referral. It is a privilege to partner with you inthe care of your patients. My office would be delighted to assist you with any further consultations or with questions regarding the plan of care outlined. Do not hesitate to call the office or contact me directly. Sincerely, Mireille Zurita MD, FAANS, FACS Board Certified Neurological Surgeon [employer]/[employer]oman, Department of Neurological Surgery [facility] [address] [facility] [address] [place] [id number] [facility] [address] [place] [address] documented in this encounterCoshocton Regional Medical Center Work Phone: 1(456) 925-840101-02-2024 History of Present illness Narrative* Mireille Zurita MD - 05/10/2023 11:30 AM EST [facility] [place] Department of Neurological Surgery Post Operative Patient Visit History of Present Illness: Mary Goode is a 72 y.o. year old female who presents to the spine clinic in a post operative visit. They are status post C3-C7 anterior cervical disc excision with interbody fusion and plate fixationat the 4 levels. The incision is healing beautifully. Her x- rays look like everything is holding nicely. Her [...] Refusal of blood transfusions as patient is [place] Renal artery aneurysm (CMS/HCC) Scoliosis Sleep apnea [...] mouth 3 times a day as needed formuscle spasms (post op pain)., Disp: 30 tablet, [...] (25 mg) by mouth once daily., Disp: ,Rfl: labetalol (Normodyne) 100 mg tablet, Take 1 [...] by mouth every 8 hours if needed formild pain (1 - 3). (Patient not taking: [...] still has a slight head tilt to theright. Results I personally reviewed and interpreted the imaging results which included the plain x-rays that weredone a couple of days ago. Shows that the swelling postoperatively has diminished dramatically. Thealignment is unchanged and the screw placement is [...] cannot drive until we get her in thesoft collar. Overall I think she is doing [...] plan of care after leaving. My office canbe reached at M-F 8am-4pm. To clinicians, thank you very much for this kind referral. It is a privilege to partner with you inthe care of your patients. My office would be delighted to assist you with any further consultations or with questions regarding the plan of care outlined. Do not hesitate to call the office or contact me directly. Sincerely, Mireille Zurita MD, FAANS, FACS Board Certified Neurological Surgeon Loftsman/Woman, Department of Neurological Surgery [facility] [address] [place] [address] [facility] [address] [place] [address] documented in this [facility] Work Phone: 1(954) 138-216811-15-2023 Plan of care note* Care Plan - Beth Bronson RN - 03/23/2023 10:06 AM EST Problem: Pain Goal: Takes deep breaths with [...] RN Outcome: Adequate for Discharge 03/23/2023924 by eBth Bronson RN Outcome: Progressing Goal: Prevent/manage excess [...] fatigue by end of the shift 03/23/2023 100 by Beth Bronson RN Outcome: Adequate for Discharge 03/23/2023924 by Beth Bronson RN Outcome: Progressing T. [facility] Work Phone: [phone] Miscellaneous Notes* Care Plan - Beth Bronson RN - 03/23/2023 10:06 AM EST Problem: Pain Goal: Takes deep breaths with improved pain control throughout the shift 03/23/2023 1006 by Beth [...] ADL's with improved pain control throughout shift 03/23/2023 1006 by Beth Bronson RN Outcome: Adequate for Discharge 03/23/2023924 by Beth Bronson RN Outcome: Progressing Goal: Participates in PT with improved pain control throughout the shift 03/23/2023 1006 by Beth Bronson RN Outcome: Adequate for Discharge 03/23/2023924 by Beth Bronson RN Outcome: Progressing Goal: Free from opioid side effects throughout the shift 03/23/2023 1006 by Beth Bronson RN Outcome: Adequate for Discharge 03/23/2023924 by Beth Bronson RN Outcome: Progressing Goal: Free from acute confusion related to pain meds throughout the shift 03/23/2023 100 by Beth Bronson RN Outcome: Adequate for Discharge 03/23/2023924 by Beth Bronson RN Outcome: Progressing Problem: Skin Goal: Decreased wound size/increased tissue granulation at next dressing change 03/23/2023 1006 by Beth Bronsno RN Outcome: Adequate for Discharge 03/23/2023924 by [...] by Beth Bronson RN Outcome: Progressing T. * Care Plan - Beth Bronson RN - 03/23/2023 9:25 AM EST Problem: Pain Goal: Takes deep breaths with [...] by end of the shift Outcome: Progressing * Care Plan - Beth Bronson RN - 03/22/2023 9:28 AM EST Problem: Pain Goal: Takes deep breaths with [...] 03/22/2023927 by Beth Bronson RN Outcome: Progressing 03/22/2023 09 by Beth Bronson RN Outcome: Progressing 03/22/2023921 [...] 03/22/2023921 by Beth Bronson RN Outcome: Progressing * Care Plan - Beth Bronson RN - 03/22/2023 9:26 AM EST Problem: Pain Goal: Takes deep breaths with [...] 03/22/2023921 by Beth Bronson RN Outcome: Progressing * Care Plan - Beth Bronson RN - 03/22/2023 9:22 AM EST Problem: Pain Goal: Takes deep breaths with [...] by end of the shift Outcome: Progressing * Post-Procedure Note - Araseli Faustin APRN-COMMERCIAL FINANCE MANAGER - 03/22/2023 6:36 AM EST Feels well this morning Cervical surgical drain [...] Plan for discharge home 03/23/2023 PUSHPA Voss * Care Plan - Janett Galvan RN - 03/21/2023 10:59 PM EST Problem: Pain Goal: Takes deep breaths with [...] goals for the shift include pain control * Care Plan - Beth Bronson RN - 03/21/2023 4:29 PM EST Problem: Pain Goal: Takes deep breaths with [...] Progressing Goal: Promote skin healing Outcome: Progressing * Op Note - Mireille Zurita MD - 03/21/2023 8:31 AM EST 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.12] Post-operative Diagnosis: Post-op Diagnosis * Spinal stenosis, cervical region [M48.02] * Other spondylosis with myelopathy, cervical region [M47.12] Surgeon: * Mireille Zurita - Primary * Fernando Christine - Assisting Anesthesia staff:Anesthesiologist: Paty Jewell MD CHIEF OF HOSPITAL MEDICINE: Man Bales APRN-CHIEF OF HOSPITAL MEDICINE Procedure: Procedure(s): C3-4, C4-5, C5-6, C6-7 ANTERIOR [...] Implant Name Type Inv. Item Serial No. House Furnishings Supervisor Lot No. LRB No. Used Action ALLOGRAFT, TRIAD LORDOTIC 7 X 11 X 14 - [id number] - [id number] Spinal Hardware ALLOGRAFT, TRIAD LORDOTIC 7 X 11 X 14 [id number] [employer] N/A 1 Implanted ALLOGRAFT, TRIAD LORDOTIC 6 X 11 X 14 - [id number] - [id number] Spinal Hardware ALLOGRAFT, TRIAD LORDOTIC 6 X 11 X 14 [id number] [employer] N/A 1 Implanted ALLOGRAFT, TRIAD LORDOTIC 7 X 11 X 14 - [id number] - [id number] Spinal Hardware ALLOGRAFT, TRIAD LORDOTIC 7 X 11 X 14 [id number] [employer] N/A 1 Implanted ALLOGRAFT, TRIAD LORDOTIC 7 X 11 X 14 - [id number] - [id number] Spinal Hardware ALLOGRAFT, TRIAD LORDOTIC 7 X 11 X 14 [id number] [employer] N/A 1 Implanted SCREW, ACP, SELF DRILL, 3.5 X 15MM, VARIABLE - [id number] Spinal Hardware SCREW, ACP, SELF DRILL, 3.5 [...] her head was placed in a beanbag cigar head perforator. The arms were tucked by her side. An x-ray wastaken to verify proper location for our skin incision. Then the area was clipped prepped and drapedin the usual sterile fashion. The skin was [...] it had been incised with a 15 blade.I then cleaned out any of the disc material by scraping the osteophytes and the cartilaginous endplates from 1 uncinate process to the other. I then drilled the endplates parallel. I also drilled up into the foramina bilaterally. I then was able to get underneath the posterior longitudinal ligamentwith a 4 oh up-angled curette and then [...] pin from the body of C3 and r eplaced it into C5. Now I applied distraction [...] C5-6 disc in much the same manner. Firstdistraction was applied after the annulus had been [...] this was tapped into position I then re moved the pin from C5 and replaced it into the body of C7. The C6-7 level was cleaned out after thedistraction was applied and the annulus was cut [...] appropriately. I used the awl to place pilot control operator helper holes in the 5 vertebral bodies 1 [...] None Mireille Zurita MD documented in this [facility] Work Phone: [phone]) 342-742111-15-2023 Nurse Note* Beth Bronson RN - 03/23/2023 10:02 AM EST Message sent to Dr zurita and Araseli Faustin regarding patient requesting nausea medication. Araseli states she will send Patient aware [facility] Work Phone: [phone]) [phone] Nurse Note* Beth Bronson RN - 03/23/2023 10:02 AM EST Message sent to Dr zurita and Araseli Torresko regarding patient requesting nausea medication. Araseli states she will send Patient aware [facility] Work Phone: 1(568) 292-475911-15-2023 Plan of care note* Care Plan - Beth Bronson RN - 03/23/2023 9:25 AM EST Problem: Pain Goal: Takes deep breaths with [...] by end of the shift Outcome: Progressing [facility] Work Phone: [phone] Hospital course Narrative* Araseli Anguiano PAWEL Faustin-EMANUEL - 03/23/2023 5:28 AM EST Discharge Diagnosis Preop testing Issues Requiring Follow-Up [...] Department Center 04/07/2023 1:00 PM PUSHPA Voss [id number] [place] 05/12/2023 8:30 AM Mireille Zurita MD [id number] [place] 06/16/2023 10:30 AM Mireille Zurtia MD [id number] [place] PUSHPA Voss documented in this [facility] Work Phone: [phone] Hospital Discharge instructions* Discharge Instructions* PUSHPA Voss - 03/23/2023 5:28 AM EST May shower. Do not let water directly flow on incision. Dab / pat incision dry. DO NOT TOUCH INCISION Wear cervical collar at all times Walk hourly while awake. May not drive while wearing cervical collar. Keep hydrated. Soft regular diet documented in this [facility] Work Phone: [phone]) 513-333011-14-2023 History of Present illness Narrative* Nella Murillo RN - 03/22/2023 2:46 PM EST 03/22/23 1446 Discharge Planning Living Arrangements Alone [...] insurance, address, phone. PCP- [facility] in [place] Pt is from home, lives alone-- will be having niece stay with her after discharge. Has a rollator and cane if needed. Has grab bars and a shower seat. PT- no further PT needs. Pt stated she has family to help and does not feel she will have any otherneeds. Nella Murillo RN TCC * Ayala Zhou, PT - 03/22/2023 1:19 PM EST Physical Therapy Physical Therapy Evaluation Patient Name: [...] as pt unable to turn head, look /dimension quarry supervisor stairs d/t c-collar PT Discharge Recommendations: No [...] arms/legs causing loss of sleep and limitations, svp business development shunt, r artery aneurysm repair, sob w/ [...] Prior Function Per Pt/Caregiver Report Level of [place]: (indep) Homemaking Assistance: (indep home mgmt and driving) Precautions: Precautions Precautions Comment: (aspen c-collar, up in chair) Vital Signs: Objective Pain: Pain Assessment Pain Assessment: (-08/16 sx site) Sensation numbness tingling Cognition: Cognition Overall Cognitive Status: Within Functional Limits Activity Tolerance Endurance: (good) Functional Assessments: Bed Mobility Bed Mobility: (indep in/oob log roll tech) Transfers Transfer: (indep) Ambulation/Gait Training Ambulation/Gait Training Performed: (indep w/o ad ~120ft, slowed, steady) Stairs Stairs: (up/down 4 steps w/ hr and straight cane w/ sba/cga of 1, instructed in 1 step at a time asc/o r knee instabilty, pt continues reciprocal step pattern, recommend installation of 1 hr for improved safety) Extremity/Trunk Assessments: RLE RLE : (wfl) LLE LLE : Within Functional Limits Outcome Measures: [facility] Basic Mobility Turning from your back to [...] wearing c-collar, log roll techs use of * Marybeth Connors, OT - 03/22/2023 12:12 PM EST Occupational Therapy Evaluation Patient Name: Mary Goode [...] pain, numbness/tingling B arms/legs, loss of sleep, SURVEY RESEARCH MANAGER shunt, Prior to Session Communication: Bedside nurse Patient Position Received: Bed, 2 rail up Precautions: Precautions Comment: [place] collar, cervical precautions, Pain: Pain Assessment Pain Assessment: 0-10 Pain Score: 3 Pain Type: Surgical pain Pain Location: Neck Objective Cognition: Overall Cognitive Status: Within Functional Limits Home Living: Lives With: (alone; nieces supportive/will stay with patient upon discharge home. Bed/bath 1st floor, independent without device, drives. Owns rollator, cane, tub/shower with seat, grab bar & hand held shower,) Prior Function: Level of [place]: Independent with ADLs and functional transfers ADL: [...] Functional Limits LUE: Within Functional Limits Outcome Measures:[facility] Daily Activity Putting on and taking off [...] Patient/Caregiver Demonstrated Understanding: yes documented in this [facility] Work Phone: [phone] Consult note* PUSHPA Metcalf - 03/22/2023 12:32 PM ESTAssociated Order(s): Inpatient consult to Medicine Inpatient consult to Medicine Consult performed by: Leticia Farris APRN-COMMERCIAL FINANCE MANAGER Consult ordered by: Mary Patrick APRN-SENIOR ANIMAL TRAINER Reason for consult: medical management History Of Present Illness Mary Goode is a 72 y.o. female who is POD #1 C3-4, C4-5, C5-6, C6-7 ANTERIOR DISC EXCISION/ALLOGRAFT FUSION for cervical stenosis. Review of Systems [...] Refusal of blood transfusions as patient is Mormon, Renal artery aneurysm (CMS/HCC), Scoliosis, and Sleep apnea. Surgical History She has a past surgical history that includes Appendectomy; Tonsillectomy; Sinus surgery; Cardiac catheterization; Hiatal hernia repair; Hysterectomy; Colonoscopy; Upper gastrointestinal endoscopy; Ventriculoperitoneal shunt (2008); Oophorectomy; Foot surgery; and Arterial aneurysm repair (2012). Social History She reports that she has never smoked. Her smokeless tobacco use includes chew. She reports currentalcohol use. She reports that she does not [...] - per primary/surgery service protocol Leticia Farris CNP [facility] Associated attestation - Robert Mack DO - 03/23/2023 7:30 AM EST I personally examined the patient and gathered whitaker information. The patient's conditions and treatment plans were discussed with the GLORIA. I agree with their medical decision making as documented withbelow additions/exceptions. I conducted > 50% of this encounter including gathering history, reviewing the record and treatment planning. Post op care and dispo as per primary team, please call if any acute medical issues arise. Thank you for this consult Robert Mack DO [facility] Work Phone: [phone] 111-211111-14-2023 Consult note* PUSHPA Metcalf - 03/22/2023 12:32 PM ESTAssociated Order(s): Inpatient consult to Medicine Inpatient consult to Medicine Consult performed by: PUSHPA Metcalf Consult ordered by: Mary Patrick APRN-SENIOR ANIMAL TRAINER Reason for consult: medical management History Of Present Illness Mary Goode is a 72 y.o. female who is POD #1 C3-4, C4-5, C5-6, C6-7 ANTERIOR DISC EXCISION/ALLOGRAFT FUSION for cervical stenosis. Review of Systems [...] Refusal of blood transfusions as patient is Mormon, Renal artery aneurysm (CMS/HCC), Scoliosis, and Sleep apnea. Surgical History She has a past surgical history that includes Appendectomy; Tonsillectomy; Sinus surgery; Cardiac catheterization; Hiatal hernia repair; Hysterectomy; Colonoscopy; Upper gastrointestinal endoscopy; Ventriculoperitoneal shunt (2008); Oophorectomy; Foot surgery; and Arterial aneurysm repair (2012). Social History She reports that she has never smoked. Her smokeless tobacco use includes chew. She reports currentalcohol use. She reports that she does not [...] - per primary/surgery service protocol Leticia Farris, [facility] Associated attestation - Robert Mack DO - 03/23/2023 7:30 AM EST I personally examined the patient and gathered whitaker information. The patient's conditions and treatment plans were discussed with the GLORIA. I agree with their medical decision making as documented withbelow additions/exceptions. I conducted > 50% of this encounter including gathering history, reviewing the record and treatment planning. Post op care and dispo as per primary team, please call if any acute medical issues arise. Thank you for this consult Robert Mack DO [facility] * Fernando Christine MD - 03/21/2023 11:05 AM EST Reason For Consult Intra-op evaluation of thyroid [...] patient. Fernando Christine MD documented in this [facility] Work Phone: [phone]) 592-798411-14-2023 Plan of care note* Care Plan - Beth Bronson RN - 03/22/2023 9:28 AM EST Problem: Pain Goal: Takes deep breaths with improved pain control throughout the shift 03/22/2023 09 by Beth Bronson RN Outcome: Progressing 03/22/2023 09 by Beth Bronson RN Outcome: Progressing 03/22/2023921 by Beth Bronson RN Outcome: Progressing Goal: Turns in bed with improved pain control throughout the shift 03/22/2023 09 by Beth Bronson RN Outcome: Progressing 03/22/2023925 [...] Bronson RN Outcome: Progressing 03/22/2023925 by Beth Brnoson RN Outcome: Progressing 03/22/2023921 by Beth Bronson [...] 03/22/2023921 by Beth Bronson RN Outcome: Progressing [facility] Work Phone: [phone]) 158-220811-14-2023 Plan of care note* Care Plan - Beth Bronson RN - 03/22/2023 9:26 AM EST Problem: Pain Goal: Takes deep breaths with [...] 03/22/2023921 by Beth Bronson RN Outcome: Progressing [facility] Work Phone: [phone] 717-279911-14-2023 Plan of care note* Care Plan - Beth Bronson RN - 03/22/2023 9:22 AM EST Problem: Pain Goal: Takes deep breaths with [...] by end of the shift Outcome: Progressing [facility] Work Phone: [phone]) 114-783111-14-2023 Note* Post-Procedure Note - PUSHPA Voss - 03/22/2023 6:36 AM EST Feels well this morning Cervical surgical drain [...] Plan for discharge home 03/23/2023 PUSHPA Voss [facility] Work Phone: [phone] 949-691511-13-2023 Plan of care note* Care Plan - Janett Galvan RN - 03/21/2023 10:59 PM EST Problem: Pain Goal: Takes deep breaths with [...] goals for the shift include pain control [facility]11-13-2023 Plan of care note* Care Plan - Beth Bronson RN - 03/21/2023 4:29 PM EST Problem: Pain Goal: Takes deep breaths with [...] Progressing Goal: Promote skin healing Outcome: Progressing [facility] Work Phone: [phone] 320-979811-13-2023 Consult note* Fernando Christine MD - 03/21/2023 11:05 AM EST Reason For Consult Intra-op evaluation of thyroid [...] care of this patient. 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 Item Serial No. House Furnishings Supervisor Lot No. LRB No. Used Action ALLOGRAFT, TRIAD LORDOTIC 7 X 11 X 14 - [id number] - [id number] Spinal Hardware ALLOGRAFT, TRIAD LORDOTIC 7 X 11 X 14 [id number] [employer] N/A 1 Implanted ALLOGRAFT, TRIAD LORDOTIC 6 X 11 X 14 - [id number] - [id number] Spinal Hardware ALLOGRAFT, TRIAD LORDOTIC 6 X 11 X 14 [id number] [employer] N/A 1 Implanted ALLOGRAFT, TRIAD LORDOTIC 7 X 11 X 14 - [id number] - [id number] Spinal Hardware ALLOGRAFT, TRIAD LORDOTIC 7 X 11 X 14 [id number] [employer] N/A 1 Implanted ALLOGRAFT, TRIAD LORDOTIC 7 X 11 X 14 - [id number] - [id number] Spinal Hardware ALLOGRAFT, TRIAD LORDOTIC 7 X 11 X 14 [id number] [employer] N/A 1 Implanted SCREW, ACP, SELF DRILL, 3.5 X 15MM, VARIABLE - [id number] Spinal Hardware SCREW, ACP, SELF DRILL, 3.5 [...] her head was placed in a beanbag cigar head perforator. The arms were tucked by her side. An x-ray wastaken to verify proper location for our skin incision. Then the area was clipped prepped and drapedin the usual sterile fashion. The skin was [...] it had been incised with a 15 blade.I then cleaned out any of the disc material by scraping the osteophytes and the cartilaginous endplates from 1 uncinate process to the other. I then drilled the endplates parallel. I also drilled up into the foramina bilaterally. I then was able to get underneath the posterior longitudinal ligamentwith a 4 oh up-angled curette and then [...] pin from the body of C3 and r eplaced it into C5. Now I applied distraction [...] C5-6 disc in much the same manner. Firstdistraction was applied after the annulus had been [...] this was tapped into position I then re moved the pin from C5 and replaced it into the body of C7. The C6-7 level was cleaned out after thedistraction was applied and the annulus was cut [...] appropriately. I used the awl to place pilot control operator helper holes in the 5 vertebral bodies 1 [...] the operation. Complication: None Mireille Zurita MD [facility] Work Phone: [phone]) [phone] Attending History and physical note* Mireille Zurita MD - 03/21/2023 6:50 AM EST H&P reviewed. The patient was examined and there are no changes to the H&P. Source Note - Jane Caro APRN-COMMERCIAL FINANCE MANAGER - 03/14/2023 12:30 PM EST CPM/PAT Evaluation [...] Denies past issues with anesthesia. Reports current SURVEY RESEARCH MANAGER shunt (2006), and hx of Right renal [...] 1 capsule (25 mcg) by mouth once daily.Yes Historical Provider, donepezil (Aricept) 5 mg tablet [...] (30 mg) by mouth once daily. Yes HistoricalProvider, losartan (Cozaar) 50 mg tablet Take 1 [...] no heartburn, no diarrhea, no vomiting and noblood in stools. Genitourinary: no dysuria, no incontinence, [...] excision/allograft fusion & plate fixation with flat platecervical x-ray w/Dr Zurita on 03/21/2023 [facility] Work Phone: [phone] History and physical note* Mireille Zurita MD - 03/21/2023 6:50 AM EST H&P reviewed. The patient was examined and there are no changes to the H&P. Source Note - PUSHPA Trejo - 03/14/2023 12:30 PM EST CPM/PAT Evaluation Name: Mary Jo Ann Goode (Mary Goode) /Age: 711/20/1950/72 y.o. In-Person [...] Denies past issues with anesthesia. Reports current SURVEY RESEARCH MANAGER shunt (2006), and hx of Right renal [...] 1 capsule (25 mcg) by mouth once daily.Yes Historical Provider, donepezil (Aricept) 5 mg tablet [...] (30 mg) by mouth once daily. Yes HistoricalProvider, losartan (Cozaar) 50 mg tablet Take 1 [...] no heartburn, no diarrhea, no vomiting and noblood in stools. Genitourinary: no dysuria, no incontinence, [...] excision/allograft fusion & plate fixation with flat platecervical x-ray w/Dr Zurita on 03/21/2023 [facility] Work Phone: [phone]) 233-157609-26-2023 Evaluation note* Encounter Date Diagnosis Assessment Notes Treatment Notes Treatment Clinical Notes Jan, Hyponatremia (ICD-10 - E87.1) She [...] symptoms. Also she can follow-up with her mine surveyor due to the urinary incontinence. [employer] Other 08-01-2023 History of Present illness Narrative* The patient who is a 72-year-old female came in today with a friend to discuss cervical pain and back of head pain that she has been experiencing. 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 I also suggested that she start considering getting second opinions. I am going tosee her back after the CAT scan of her cervical spine is done and we will talk about which operation to the cervical spine we would be recommending. [id number] Work Phone: 1(360) 154-158203-28-2023 Evaluation note* Encounter Date Diagnosis Assessment Notes Treatment Notes Treatment Clinical Notes Jul, SURVEY RESEARCH MANAGER (ventriculoperito kym) shunt status (ICD-10 - Z98.2) [...] with the patient who understands and agrees [employer] Other 03-16-2023 Evaluation note* Encounter Date Diagnosis Assessment Notes Treatment Notes Treatment Clinical Notes Jul, SURVEY RESEARCH MANAGER (ventriculoperito kym) shunt status (ICD-10 - Z98.2) [...] as-needed basis. Her shunt pumps quite well [employer] Other 02-16-2023 NotePROCEDURE: XR KNEE RT 4V [...] authenticated by: ANA ROSA BELLO Date: 2022-06-24 11:33[facility]02-08-2023 Evaluation note* Encounter Date Diagnosis Assessment Notes [...] She reported to have Osteoporosis . [employer] Other 01-19-2023 NoteHNO ID: [id number] Author: Freda Pop APRN.COMMERCIAL FINANCE MANAGER Service: ? Author Type: Nurse Practitioner Type: [...] Freda Pop APRN.CNP General Surgery Digestive Disease [place] Medical Decision Making: Problems: Moderate: 1+ chronic illnesses with change Risk: Moderate: Drug management Medical Decision Making Level: 4 [facility] Instructions* Patient Instructions* Freda Pop APRN.CNP - 05/27/2022 8:56 AM EST Continue Prevacid (lansoprazole) 30 mg daily or similar indefinitely We'll check your Upper GI, let us know once you get it so that we can be sure to get the results documented in this encounterCleveland Clinic [facility]01-19-2023 History of Present illness Narrative* Freda Pop [...] Freda Pop APRN.CNP General Surgery Digestive Disease [place] Medical Decision Making: Problems: Moderate: 1+ chronic illnesses with change Risk: Moderate: Drug management Medical Decision Making Level: 4 - Moderate documented in this encounterCleveland Clinic [facility]12-01-2022 Procedure [facility]11-15-2022 Evaluation note* Encounter Date Diagnosis Assessment [...] reviewed these x-rays and confirmed the measurement [employer] Other 10-06-2022 Evaluation note* Encounter Date Diagnosis [...] her. A new referral will be sent. [employer] Other 08-17-2022 NoteHNO ID: [id number] Author: Freda Pop APRN.COMMERCIAL FINANCE MANAGER Service: ? Author Type: Nurse Practitioner Type: Progress Notes Filed: 12/23/2021 10:45 AM Note Text: GENERAL SURGERY CLINIC FOLLOW UP NOTE Clinic Date: 12/23/2021 Mary Cherry marianakimberly, 71 year old [address] [place] [id number] CHIEF COMPLAINT: Patient presents with: Post Op Follow Up: S/p Paraesophageal repair 11/16/21 HPI: Mary Cherry Ellysavitakimberly presents for follow up from paraesophageal hernia [...] May with upper GI study Freda Pop APRN.[facility] General Surgery [facility] Disease [place] [facility] 22[facility] NoteHNO ID: [id number] Author: Freda Pop APRN.[facility] Service: ? Author Type: Nurse Practitioner Type: [...] Date: 12/03/2021 Mary Goode, 71 year old [address] [place] [id number] CHIEF COMPLAINT: Patient presents with: Post Op [...] intact, no signs of infection PHYSICAL EXAM: [facility] 05/31/2006 - virtual visit GENERAL: No apparent [...] Freda Pop APRN.EMANUEL General Surgery Digestive Disease [place] December 03[facility]07[facility] History of Present illness Narrative* [...] Date: 12/03/2021 Mary Goode, 71 year old [address] [place] [id number] CHIEF COMPLAINT: Patient presents with: Post Op [...] intact, no signs of infection PHYSICAL EXAM: [facility] 05/31/2006 - virtual visit GENERAL: No apparent [...] Freda Pop APRN.CNP General Surgery Digestive Disease [place] December 03, 2021 documented in this encounterCleveland Clinic [facility]07-28-2022 Instructions* Patient Instructions* Freda Pop APRN.CNP - [...] then activity as tolerated documented in this encounterCleveland Clinic [facility]07-25-2022 Evaluation note* Encounter Date Diagnosis Assessment Notes [...] She reported to have Osteoporosis . Continue [employer] Other 07-12-2022 NoteHNO ID: [id number] Author: Angeli Rivas RN Service: Care Management [...] 17, 2021 TIME: 8:34 PM PAGER/CONTACT #: [phone] Disclaimer: The information in this determination is [...] the process utilized to ensure compliance with [facility] policy regarding Inpatient Admission and Observation [...] physician's order as documented evidence of concurrence. [facility]07-12-2022 NoteHNO ID: [id number] Author: Tony Cox MD Service: General Surgery [...] questions during the weekdays, please contact the [employer] service pager, [phone] For questions during the nights and weekends, please contact the [employer] pager, [phone] NoteHNO ID: [id number] Author: Terry Villavicencio APRN.CHIEF OF HOSPITAL MEDICINE Service: Anesthesiology Author Type: Nurse [employer] Crewmember Type: Anesthesia Procedure Notes Filed: 11/16/2021 12:19 [...] November 16, 2021 TIME: 12:19 PM CSN: [id number] NoteHNO ID: [id number] Author: Terry Villavicencio APRN.CRNA Service: Anesthesiology Author Type: Nurse [employer] Crewmember Type: Anesthesia Procedure Notes Filed: 11/16/2021 12:19 PM Note Text: ANESTHESIOLOGY PROCEDURE NOTE Airway General Information Procedure Start Time/Medication Administration: 11/16/2021 11:50 AM Patient location during procedure: OR Patient identity confirmed: arm band, care steam pressure chamber operator and patient Staffing Anesthesiologist: Julian Dotson MD CHIEF OF HOSPITAL MEDICINE: Terry Villavicencio APRN.CHIEF OF HOSPITAL MEDICINE Performed by: SHEA Indications and Patient Condition [...] November 16, 2021 TIME: 12:18 PM CSN: [id number] NoteHNO ID: [id number] Author: Riky Moura RN Service: ? Author [...] Op Instructions Handout - [facility] Brochure - [facility] Overview Handout - Post Op Instructions Handout REFERRAL (RECOMMENDATION): None Electronically Signed By: Riky Moura RN In Department: GENERAL SURGERY [facility]07-07-2022 History of Present illness Narrative* Riky Moura [...] In Department: GENERAL SURGERY documented in this encounterCleveland Clinic [facility]07-07-2022 NoteEducation ([facility]) MARY GOODE ([id number]) 1950 F Date Time Provider Department 11/12/21 RIKY MOURA (RN) [facility] Reason for Visit: Education Of Patient/family [...] Encounter Status:Closed by RIKY MOURA RN on 11/12/21[facility] 11-12-2021 NoteHNO ID: [id number] Author: Atif Mendez MD Service: ? Author Type: Physician Type: Progress Notes Filed: 11/12/2021 1:39 PM Note Text: SURGERY PREOPERATIVE VISIT NOTE Name: Mary Goode Medical Record: [id number] Encounter No.: [id number] Mary Goode is a 70 year old female seen in surgery clinic today for their final preoperative assessment. INTERVAL NOTE: Patient needed to discuss regarding surgery. She is currently scheduled for a paraesophageal hernia repair. 10/21/2021 CT A/P 10/16/2021 esophageal manometry View External Imaging - Miscellaneous Imaging [ID [id number]] 10/07/2021 UGI Scan on 10/27/2021 ?8:25 AM by External Provider: GI BMI 31 PLANNED PROCEDURE: Paraesophageal hernia repair, possible Monico fundoplication. Patient is a [employer]. We have discussed regarding not doing a fundoplication if risk of recurrence is assessed to be on the higher side intraoperatively. 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 I will also [...] re herniation of t (more content not included)...[facility] 11-12-2021 Nurse Note* Joan Jung Ma - 11/12/2021 11:55 AM EDT What is the reason for your visit today? Pre op Who is your referring physician? Are you having poor oral intake? NO Have you had unintentional weight loss of 15 lbs/7 Kg in the last 3-6 months? NO Bowels: constipated Wound: Temperature: No Drains: No documented in this encounterCleveland Clinic [facility]07-07-2022 History of Present illness Narrative* Atif Mendez MD - 11/12/2021 11:30 AM EDT SURGERY PREOPERATIVE VISIT NOTE Name: Mary Goode Medical Record: [id number] Encounter No.: [id number] Mary Goode is a 70 year old female seen in surgery clinic today for their final preoperative assessment. INTERVAL NOTE: Patient needed to discuss regarding surgery. She is currently scheduled for a paraesophageal herniarepair. 10/21/2021 CT A/P 10/16/2021 esophageal manometry View External Imaging - Miscellaneous Imaging [ID [id number]] 10/07/2021 UGI Scan on 10/27/2021 8:25 AM by External Provider: GI BMI 31 PLANNED PROCEDURE: Paraesophageal hernia repair, possible Monico fundoplication. Patient is a Mormon. We have discussed regarding not doing a fundoplication if risk of recurrence is assessed to be on the higher side intraoperatively. 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 Although we will perform appropriate precautions to [...] patient. Atif Mendez MD documented in this encounterCleveland Clinic [facility]06-29-2022 Miscellaneous Notes* Telephone Encounter - Gee Meeks Ma - 11/04/2021 2:49 PM EDT Patient scheduled 11/06 [place] ECHO * Telephone Encounter - Gee Meeks Ma - 11/03/2021 10:39 AM EDT Patient is in need of Echo before 11/16 for surgery. Is anyone able to assist in getting the patientin for this? documented in this encounterCleveland Clinic [facility]06-21-2022 Miscellaneous Notes* Telephone Encounter - Jonathon Dobson - 10/27/2021 3:58 PM EDT Records received and scanned.on 10/27 listed under GI and external imaging Misc. Not sure who scanned these. Thanks! * Telephone Encounter - Sabine Victoria Pss - 10/23/2021 12:04 PM EDT [facility] Sent fax to [phone] -Manometry 6.10.22 -Upper GI 6..22 Sabine Victoria Pss documented in this encounterCleveland Clinic [facility]06-15-2022 NoteHNO ID: [id number] Author: RT Boni(R) Service: ? Author Type: [...] BY: RT Boni(R) October 21, 2021 8:43 [facility]06-15-2022 NoteHNO ID: [id number] Author: Eri Jeffrey RN Service: ? Author Type: Registered [...] IV SITE APPEARANCE: Clean,Dry and Intact SIGNATURE: Eri Jeffrey RN PATIENT NAME: Mary Goode DATE: October 21, 2021 TIME: 8:28 [facility]06-15-2022 History of Present illness Narrative* Eri Jeffrey RN - 10/21/2021 8:15 AM EDT [...] IV SITE APPEARANCE: Clean,Dry and Intact SIGNATURE: Eri Jeffrey RN PATIENT NAME: Mary Goode DATE: October 21, 2021 TIME: 8:28 AM * Uyen Vaughan, RT(R) - 10/21/2021 8:15 AM EDT Radiology [...] Intact, Site disposition Discontinued SIGNED BY: RT Boni(Andreina) October 21, 2021 8:43 AM documented in this encounterCleveland Clinic [facility]05-31-2022 Evaluation note* Encounter Date Diagnosis Assessment Notes Treatment Notes Treatment Clinical Notes September, Paraesophageal herni a (ICD-10 - K44.9) [employer] Other 05-26-2022 NoteHNO ID: [id number] Author: Atif Mendez MD Service: ? Author [...] 70 year old female who is a Synagogue PMH of congenital hydrocephalus ( SURVEY RESEARCH MANAGER shunt), HTN, patient of Monika Guerrero MD, referred to me by Dr Ramirez for hiatal hernia with severe GERD symptoms. Patient reports heart burn, excess salivation and occasional regurgitaion. She denies any ALARM features including weight loss, GIB, odynyophagia or dysphagia. Her PSH include open appendectomy, JUANI, and SURVEY RESEARCH MANAGER shunt placement. The patient's most recent EGD was done in 09/03 and the report is included below Chart Review: -hx: worsening GERD - referred by Dr. Ramirez for GERD/Hiatal Hernia Scan on 09/03/2021 ?9:36 AM by Jonathon Dobson: [facility] progress note 07/22/2021 Dr. Ramirez - 08/06/2021 EGD Scan on 09/03/2021 ?9:35 AM by Jonathon Dobson: [facility] EGD 08/06/2021 Dr. Ramirez -09/17/2015 EGD Scan on 09/03/2021 ?9:33 AM by Jonathon Dobson: [facility] Operative report 09/17/2015 Dr. Walter [...] 70 year old female who is a Synagogue PMH of congenital hydrocephalus ( SURVEY RESEARCH MANAGER shunt), HTN, who presents with paraesophageal hernia [...] above but most relevantly she is a Mormon. She does not smoke and does not consume alcohol on a regular basis. Her physical examination reveals lower midline hernia for a total abdominal hysterectomy. She has a previous history of a SURVEY RESEARCH MANAGER shunt for congenital hydrocephalus, has not followed up with a neurosurgeon for several years. (more content not included)...[facility]05-26-2022 History of Present illness Narrative* Atif Mendez MD - 10/01/2021 10:37 AM EDT NEW [place] PATIENT PATIENT NAME: Mary Goode REASON FOR CONSULT: Hiatal hernia REQUESTING PHYSICIAN: Dr. Mcconnell DATE of SERVICE: 09/25/2021 TIME of SERVICE: 12:16 PM PCP: Monika Guerrero MD Chief Complaint: refractory GERD History of present illness: Mary Goode is a 70 year old female who is a Synagogue PMH of congenital hydrocephalus ( SURVEY RESEARCH MANAGER shunt), HTN, patient of Monika Guerrero MD, referred to me by Dr Ramirez for hiatalhernia with severe GERD symptoms. Patient reports heart burn, excess salivation and occasional regurgitaion. She denies any ALARM features including weight loss, GIB, odynyophagia or dysphagia. Her PSH include open appendectomy, JUANI, and SURVEY RESEARCH MANAGER shunt placement. The patient's most recent EGD was done in09/03 and the report is included below Chart Review: -hx: worsening GERD - referred by Dr. Ramirez for GERD/Hiatal Hernia Scan on 09/03/2021 9:36 AM by Jonathon Dobson: [facility] progress note 07/22/2021 Dr. Ramirez - 08/06/2021 EGD Scan on 09/03/2021 9:35 AM by Jonathon Dobson: [facility] EGD 08/06/2021 Dr. Ramirez -09/17/2015 EGD Scan on 09/03/2021 9:33 AM by Jonathon Dobson: [facility] Operative report 09/17/2015 Dr. Walter [...] 70 year old female who is a Synagogue PMH of congenital hydrocephalus ( SURVEY RESEARCH MANAGER shunt), HTN, who presents with paraesophageal hernia [...] above but most relevantly she is a Mormon. She does not smoke and does not consume alcohol on a regular basis. Her physical examination reveals lower midline hernia for a total abdominal hysterectomy. She has a previous history of a SURVEY RESEARCH MANAGER shunt for congenital hydrocephalus, has not followed [...] to look at the anatomy of the SURVEY RESEARCH MANAGER shunt. She will see me back as soon as these are done and we will get her scheduled for surgery. Upper GI Manometry CT abdomen pelvis Mormon Weight loss as possible I have discussed [...] Level: 4 - Moderate documented in this encounterCleveland Clinic [facility]05-26-2022 Nurse Note* Yolanda Castro MA - 10/01/2021 [...] Temperature: No Drains: No documented in this encounterCleveland Clinic [facility]04-28-2022 Miscellaneous Notes* Telephone Encounter - Jonathon Dobson - 09/03/2021 9:37 AM EDT Received medical records from Dr. Ramirez. Progress Note 07/22/2021 EGD [id number] Old Operative Report 09/17/2015 Please review. documented in this encounterCleveland Clinic [facility]01-25-2022 Evaluation note* Encounter Date Diagnosis Assessment Notes [...] reported to have Osteoporosis . Continue Prolia [employer] Other Chief complaint Narrative - Reported* Patient is being seen for an initial Neurosurgical evaluation and Patient is referred by Dr. Adan Gonzalez for a 2nd opinion on her cervical spine. * Pt. is experiencing low back and neck pain. Pt. describes her symptoms as aching with tingling in the left shoulder area, and that the symptoms are constant. [id number] [id number] Work Phone: Evaluation note* Diagnosis Paraesophageal hernia- Primary Diaphragmatic hernia without mention of obstruction or gangrene documented in this encounter [facility] RehabilitationEvaluwilming[facility] noteNo InformationNort Demeure Other Evaluation note* Diagnosis Paraesophageal hernia- Primary Diaphragmatic hernia without mention of obstruction or gangrene Paraesophageal hernia Diaphragmatic hernia without mention of obstruction or gangrene documented in this encounter [facility]Eval[facility] note* Diagnosis Encounter for education- Primary Counseling NOS Paraesophageal hernia Diaphragmatic hernia without mention of obstruction or gangrene documented in this encounter [facility] note* Diagnosis S/P repair of paraesophageal hernia- Primary Other postprocedural status Paraesophageal hernia Diaphragmatic hernia without mention of obstruction or gangrene documented in this encounter [facility] RehabilitationEvaluation noteNo assessment information [facility] Work Phone: Evaluation note* Diagnosis S/P repair of paraesophageal hernia- Primary Other postprocedural status Long-term current use of proton pump inhibitor therapy documented in this encounter [facility] Rehabilitation[facility]* Diagnosis Preop testing- Primary Unspecified pre-operative examination Cervical spondylosis with myelopathy Coagulation defect, unspecified (CMS/HCC) Cervical spondylosis with myelopathy Spinal stenosis, cervical region Other spondylosis with myelopathy, cervical region documented in this encounter [facility] Work Phone: Evaluation note* Diagnosis Preop testing- [...] unspecified back disorder documented in this encounter [facility] Work Phone: [phone] note* Diagnosis Cervical spondylosis with myelopathy documented in this encounter [facility] Work Phone: [phone] note* Diagnosis Cervical spondylosis with myelopathy documented in this encounter [facility] Work Phone: [phone] note* Diagnosis 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 documented in this encounter [facility] Work Phone: [phone] note* Diagnosis 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) documented in this encounter [facility] Work Phone: [phone] note* Diagnosis 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) documented in this encounter [facility] Work Phone: [phone] note* Diagnosis 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 Status post cervical spinal fusion Arthrodesis status documented in this encounter [facility] Work Phone: [phone] note* Diagnosis Paraesophageal hernia Diaphragmatic hernia without mention of obstruction or gangrene documented in this encounter [facility]* Diagnosis Cervical spondylosis with myelopathy documented in this encounter [facility] Work Phone: [phone] note* Diagnosis Status post cervical spinal fusion- Primary Arthrodesis status documented in this encounter [facility] Work Phone: [phone] note* Diagnosis Preop examination- Primary Preoperative examination, unspecified Paraesophageal hernia Diaphragmatic hernia without mention of obstruction or gangrene Communicating hydrocephalus (HCC) Communicating hydrocephalus Refusal of blood transfusions as patient is Mormon Refusal of treatment for reasons of yazidism or conscience Stage 3 chronic kidney disease, unspecified whether stage 3a or 3b CKD (HCC) Essential hypertension Unspecified essential hypertension ADITI (obstructive sleep apnea) Obstructive sleep apnea (adult) (pediatric) Anxiety Anxiety state, unspecified Murmur Undiagnosed cardiac murmurs Paraesophageal hernia Diaphragmatic hernia without mention of obstruction or gangrene documented in this encounter [facility]* Diagnosis Onset Date Resolution Status Anemia acute CKD (chronic kidney disease) stage 2, GFR 60-89 ml/min acute Hyperlipidemia LDL goal <130 acute [id number] acute Hypokalemia acute Hyponatremia acute Renal artery aneurysm acute Vitamin D deficiency acute [facility] Work Phone: Evaluation note* Diagnosis Paraesophageal hernia Diaphragmatic hernia without mention of obstruction or gangrene Preop examination- Primary Preoperative examination, unspecified Paraesophageal hernia Diaphragmatic hernia without mention of obstruction or gangrene Communicating hydrocephalus (HCC) Communicating hydrocephalus Refusal of blood transfusions as patient is Mormon Refusal of treatment for reasons of yazidism or conscience Stage 3 chronic kidney disease, unspecified whether stage 3a or 3b CKD (HCC) Essential hypertension Unspecified essential hypertension ADITI (obstructive sleep apnea) Obstructive sleep apnea (adult) (pediatric) Anxiety Anxiety state, unspecified Murmur Undiagnosed cardiac murmurs documented in this encounter [facility]* Diagnosis Primary osteoarthritis of right knee- Primary Acute pain of right knee documented in this encounter [facility]* Diagnosis Primary osteoarthritis of right knee- Primary Pre-op examination documented in this encounter [facility]* Diagnosis Primary osteoarthritis of right knee- Primary documented in this encounter [facility]* Diagnosis Onset Date Resolution Status Anemia acute CKD (chronic kidney disease) stage 2, GFR 60-89 ml/min acute Hyperlipidemia LDL goal <130 acute [id number] acute Hypokalemia acute Hyponatremia acute Renal artery aneurysm acute Vitamin D deficiency acute SURVEY RESEARCH MANAGER (ventriculoperitoneal) shunt status acute [facility] Work Phone: Evaluation note* Diagnosis Status post cervical spinal fusion Arthrodesis status documented in this encounter [facility] Work Phone: Evaluation note* Diagnosis Status post cervical spinal fusion- Primary Arthrodesis status Full incontinence of feces documented in this encounter [facility] Work Phone: Evaluation note* Diagnosis Primary osteoarthritis of right knee [facility] Diagnosis Allergic rhinitis due to dust- Primary Allergic rhinitis due to other allergen Allergic contact dermatitis due to metals [facility]* Diagnosis Facial trauma, initial encounter- Primary Nasal obstruction Other diseases of nasal cavity and sinuses [facility]* Diagnosis Melanocytic nevus of trunk- Primary Benign neoplasm of skin of trunk, except scrotum Melanocytic nevus of face, other location Capillary angioma Nevus, non-neoplastic Lentigines Seborrheic keratosis Actinic keratosis Neoplasm of unspecified behavior of bone, soft tissue, and skin [facility]* Diagnosis Nasal obstruction- Primary Other diseases of nasal cavity and sinuses [facility]* Diagnosis Allergic contact dermatitis due to metals- Primary [facility] Diagnosis Allergic contact dermatitis due to metals- Primary [facility] Diagnosis Allergic contact dermatitis due to metals- Primary documented in this encounter [facility] HealthcareEvaluation note* Diagnosis Pre-op examination- Primary Primary osteoarthritis of right knee documented in this encounter [facility]* Diagnosis Primary osteoarthritis of right knee- Primary documented in this encounter [facility]* Diagnosis Onset Date Resolution Status Admit Date CKD (chronic kidney disease) stage 3, GFR 30-59 ml/min acute July 11, 2024 8:59am Hyperlipidemia LDL goal <130 acute July 11, 2024 8:59am Hypertensive chronic kidney disease with stage 1 through stage 4 chronic ki acute July 11 8:59am Hypokalemia acute July 11 8:59am Hyponatremia acute July 11, 2 025 8:59am Vitamin D deficiency acute 2024 8:59am [facility] Work Phone: Evaluation note* Diagnosis Primary osteoarthritis of right knee- Primary Pre-op exam documented in this encounter [facility]* Diagnosis Acute cystitis without hematuria- Primary documented in this encounter [facility] HealthcareHistory and physical note Author Jorge Ramirez [facility] April 08, 2022 9:25am Note Date/Time April 08, 2022 9 :25am [facility] [address] [place] [address] Gastroenterology H&P Signed Patient: Mary Goode MR#: [id number] : 1950 Acct:[id number] Age/Sex: 71 / F Adm Date: 2 Loc: Room: Type: [facility] Attending Dr: Jorge Ramirez MD [...] <Electronically signed by Jorge Ramirez MD> 04/08/22924 [facility] Work Phone: History and physical note Author Jorge Ramirez [facility] March 06, 2024 1:07pm Note Date/Time March 06, 2024 1 :07pm [facility] [address] [place] [address] Gastroenterology H&P Signed Patient: Mary Goode MR#: [id number] : 1950 Acct:[id number] Age/Sex: 73 / F Adm Date: 4 Loc: Room: Type: [facility] Attending Dr: Jorge Ramirez MD [...] signed by Jorge Ramirez MD> 03/06/24 1307 [facility] Work Phone: Hiseqjq general Narrative - Reported* Type Description Date [...] aldoste ronism Hospitalization History same as above [employer] Other Hisrxsy general Narrative - Reported* Type Description Date [...] aldoste ronism Hospitalization History same as above [employer] Other History of Present illness Narrative* The [...] would like toproceed. * She is a [employer] and so we definitely discussed not using blood products. She also has a SURVEY RESEARCH MANAGER shunt and and so we are going to make certain that the monitoring team knows where the tubing is so that we do not accidentally stick in electrode into it. She is going to consider her options and tell us when she wants to schedule the surgery. [id number] [id number] Work Phone: Hospital Discharge instructions [...] Follow up with PCP. - Office number [phone].[facility] Work Phone: Repcbe for referral (narrative)* Consultation (Routine) - Pending Review Specialty Diagnoses / Procedures Referred By Heidi li Referred To Contact Physical Therapy Diagnoses 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) Status post cervical spinal fusion Mireille Zurita MD [address] [phone] Referral ID Status Reason Start Date Expiration Date Visits Requested Visits Authorized [id number] Pending Review Specialty Services Required 06/16/2023 06/15/2024 1 1 [facility] Work Phone: reason for visit NarrativeReferral update - pain managementElliott Demeure Other Reaaeb for visit Narrative* Imaging (Routine) - Authorized Specialty Diagnoses / Procedures Referred By Heidi li Referred To Contact Radiology Diagnoses Status post cervical spinal fusion Procedures XR cervical spine 2-3 views Mireille Zurita MD [address] [place] [address] Phone: tel: fax: Referral ID Status Reason Start Date Expiration Date Visits Requested Visits Authorized [id number] Authorized Perform Procedure 10/19/2023 10/18/2024 1 1 [facility] Work Phone: Reason for visit Narrative* Consultation (Routine) - Closed Specialty Diagnoses / Procedures Referred By Contac t Referred To Contact Allergy Diagnoses Primary osteoarthritis of right knee Procedures OR OFFICE/OUTPATIENT NEW HIGH MDM 60 MINUTES Jr. Rush Knapp DO [address] [place] [address] Phone: tel: fax: Heather Bang MD [address] [place] [address] Phone: tel: fax: Referral ID Status Reason Start Date Expiration Date V isits Requested Visits Authorized [id number] Closed Specialty Services Required 03/05/2024 09/01/2024 1 1 [facility] Narrative* Rehabilitation - Outpatient (Routine) - Closed Specialty Diagnoses / Procedures Referred By Contac t Referred To Contact Physical Therapy Diagnoses Pre-op examination Primary osteoarthritis of right knee Procedures OR OFFICE/OUTPATIENT NEW HIGH MDM 60 MINUTES Estelle Perez PA [address] [place] [address] Phone: tel: fax: [facility] [address] [facility] [address] [place] [address] Phone: tel: fax: Referral ID Status Reason Start Date Expiration Date V isits Requested Visits Authorized [id number] Closed Consult and Treat 07/05/2024 01/01/2025 30 30 [facility] Summary Purpose Family History No Family [...] neoplasm Unknown Unknown brother Diabetes mellitus Unknown Relationship Condition Age at Onset Recorded Date/T roney mother Malignant neoplasm of rectum Unknown Unknown Family history of colon cancer Unknown father Heart disease Unknown brother Diabetes mellitus Unknown Heart disease Unknown History of stroke Unknown Malignant neoplasm of stomach Unknown Advance Directives No Advanced Directives Records FoundDocuments on File Type Date Recorded Patient [employer] Expl anation Advance Directive(s) 06/23/2006 12:00 AM Documents on File Type Date Recorded Patient [employer] Expl anation Advance Directive(s) 06/23/2006 12:00 AM Documents on File Type Date Recorded Patient [employer] Expl anation Advance Directive(s) 11/03/2021 10:09 AM Advance Directive(s) 06/23/2006 12:00 AM Documents on File Type Date Recorded Patient [employer] Expl anation Advance Directive(s) 11/10/2021 3:28 PM Advance Directive(s) 11/03/2021 10:09 AM Advance Directive(s) 06/23/2006 12:00 AM Advance Directive Response Recorded Date/ Time Advance Directives Yes January 11:06am Advance Directive Response Recorded Date/ Time Advance Directives Yes January 10:06am Documents on File Type Date Recorded Patient [employer] Expl anation Advance Directive(s) 11/03/2021 10:09 AM [...] Decision Maker: Ozzy zurita Rationale: Patient condition does not warra nt discussion Date Activated Date Inactivated Comments 03/21/2023 6:49 AM 03/21/2023 4:19 PM Question Answer Comments Plan of Care: Code Status Discussion Not Compl eted Decision Maker: Provider Rationale: Patient condition does not warra nt discussion Documents on File Type Date Recorded Patient [employer] Expl anation Advance Directive(s) 11/03/2021 10:09 AM [...] Documents on File Type Date Recorded Patient [employer] Expl anation Power of Retail Account Manager 06/11/2024 10:51 PM Sarah Abelardo [email or web address] Power of Retail Account Manager 06/11/2024 10:51 PM [email or web address] Power of Retail Account Manager 06/11/2024 10:51 PM [email or web address] Power of Retail Account Manager 06/11/2024 10:51 PM [email or web address] Healthcare Agents on File Name Relationship Healthcare Agent Relationshi p Communication Sarah Howard Health Care Agent Healthcare Agents on File Name Relationship Healthcare Agent Relationshi p Communication Sarah Howard Health Care Agent Healthcare Agents on File Name Relationship Healthcare Agent Relationshi p Communication Sarah Howard Health Care Agent Healthcare Agents on File Name Relationship Healthcare Agent Relationshi p Communication Sarah Abelardo Howard Health Care Agent Healthcare Agents on File Name Relationship Healthcare Agent Relationshi p Communication Sarah Abelardo Howard Health Care Agent Healthcare Agents on File Name Relationship Healthcare Agent Relationshi p Communication Sarah Abelardo Howard Health Care Agent Healthcare Agents on File Name Relationship Healthcare Agent Relationshi p Communication Sarah Abelardo Howard Health Care Agent Documents on File Type Date Recorded Patient [employer] Expl anation Power of Retail Account Manager 06/11/2024 10:51 PM Sarah Abeladro [email or web address] Power of Retail Account Manager 06/11/2024 10:51 PM [email or web address] Power of Retail Account Manager 06/11/2024 10:51 PM [email or web address] Power of Retail Account Manager 06/11/2024 10:51 PM [email or web address] Healthcare Agents on File Name Relationship Healthcare Agent Relationshi p Communication Sarah Abelardo Howard Health Care Agent Healthcare Agents on File Name Relationship Healthcare Agent Relationshi p Communication Sarah Abelardo Howard Health Care Agent Healthcare Agents on File Name Relationship Healthcare Agent Relationshi p Communication Sarah Abelardo Howard Health Care Agent Healthcare Agents on File Name Relationship Healthcare Agent Relationshi p Communication Sarah Abelardo Howard Health Care Agent Reason for Referral Specialty Diagnoses / Procedures Referred By Heidi t Referred To Contact CT IMAGING Diagnoses Paraesophageal hernia Procedures CT ABD/PEL W IVCON CT ABD & PELVIS [place] [address] [place] [address] Ct Imaging Referral ID Status Reason Start Date Expiration Date Visits Requested Visits Authorized [id number] Authorized Auto-Generat ed Referral 10/01/2021 10/31/2022 1 1 Specialty Diagnoses / Procedures Referred By Enriquetaac t Referred To Contact XR IMAGING Diagnoses Paraesophageal hernia Procedures XR UPPER GI SINGLE CONTRAST RADIOLOGIC EXAM UPR GI [place] [address] [facility] [address] [id number] Xr Imaging Referral ID Status Reason Start Date Expiration Date Visits Requested Visits Authorized [id number] Pending Review Auto-Generat ed Referral 10/01/2021 10/31/2022 1 1 Specialty Diagnoses / Procedures Referred By Enriquetaac t Referred To Contact [facility] Diagnoses Paraesophageal hernia Procedures MANOMETRY ESOPHAGEAL ESOPHAGEAL MOTILITY STUDY W/INTERP&[place] [address] [facility] [address] [place] [address] [facility] [place] [address] [place] [address] Referral ID Status Reason Start Date Expiration Date Visits Requested Visits Authorized [id number] Pending Review Auto-Generat ed Referral 10/01/2021 09/28/2022 1 1 Reason *Waiting for appt Evaluate and Treat Back and Leg Pain Diagnosis 1 DDD (degenerative di sc disease), lumbar (M51.36) Referral Organization [facility] urosurgery Referring Provider First Name Keagan Referring Provider Last Name Farrukh Referring Provider Specialty Neurologica l Surgery Referred Organization [facility] Pain Managemen t Bone [facility] Referred Provider Ziyad Ngo Referred Address [address] [place], [place],[address] Referred Provider Specialty Pain Medicin e Referral Priority Routine General Notes Fore, Liliana M 022 02:47:54 PM >Received today and sent P2P Specialty Diagnoses / Procedures Referred By Heidi t Referred To Contact Radiology Diagnoses Cervical spondylosis with myelopathy Procedures XR chest 2 views Mireille Zurita MD [address] [place] [address] Referral ID Status Reason Start Date Expiration Date Visits Requested Visits Authorized [id number] Authorized Perform Procedure 03/10/2023 03/09/2024 1 1 Specialty Diagnoses / Procedures Referred By Contac t Referred To Contact Diagnoses Acute post-operative pain S/P cervical spinal fusion Roxie Lindsay, DIRECTOR MARKETING COMMUNICATIONS-COMMERCIAL FINANCE MANAGER [address] [place] [address] Referral ID Status Reason Start Date Expiration Date Visits Re quested Visits Authorized [id number] Closed 1 1 Specialty Diagnoses / Procedures Referred By Contac t Referred To Contact Diagnoses Cervical spondylosis with myelopathy Procedures ECG 12 Lead Mireille Zurita MD [address] [place] [address] Referral ID Status Reason Start Date Expiration Date V isits Requested Visits Authorized [id number] Pending Review 03/10/2023 03/09/2024 1 1 Specialty Diagnoses / Procedures Referred By Contac t Referred To Contact Radiology Diagnoses 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 stenosis of cervical region ([facility]) Procedures XR cervical spine 2-3 views Mireille Zurita MD [address] [place] [address] Referral ID Status Reason Start Date Expiration Date Visits Requested Visits Authorized [id number] Authorized Perform Procedure 05/10/2023 05/09/2024 1 1 Specialty Diagnoses / Procedures Referred By Contac t Referred To Contact Radiology Diagnoses Cervical spondylosis with myelopathy Procedures XR cervical spine 2-3 views Mireille Zurita MD [address] [place] [address] Referral ID Status Reason Start Date Expiration Date Visits Requested Visits Authorized [id number] Authorized Perform Procedure 06/16/2023 06/15/2024 1 1 Specialty Diagnoses / Procedures Referred By Contac t Referred To Contact Radiology Diagnoses Status post cervical spinal fusion Procedures XR cervical spine 2-3 views Mireille Zurita MD [address] [place] [address] Referral ID Status Reason Start Date Expiration Date Visits Requested Visits Authorized [id number] Authorized Perform Procedure 10/19/2023 10/18/2024 1 1 Specialty Diagnoses / Procedures Referred By Heidi li Referred To Contact CT IMAGING Diagnoses Paraesophageal hernia Procedures CT ABD/PEL W IVCON CT ABD & PELVIS [place] [address] [place] [address] [place] [address] Referral ID Status Reason Start Date Expiration Date V isits Requested Visits Authorized [id number] Closed Auto-Generate d Referral 10/01/2021 10/31/2022 1 [...] GFR 60-89 ml/min Hyperlipidemia LDL goal <130 [id number] Hypokalemia Hyponatremia Renal artery aneurysm Vitamin D deficiency Chief Complaint Screening E87.6 I12.9 E55.9 RENAL 6 MONTH F/U hiatal hernia hiatal hernia Reason for Visit Anemia CKD (chronic kidney disease) stage 2, GFR 60-89 ml/min Hyperlipidemia LDL goal <130 [id number] Hypokalemia Hyponatremia Renal artery aneurysm Vitamin D deficiency Chief Complaint E87.6 I12.9 E55.9 RENAL 6 MONTH F/U hiatal hernia hiatal hernia r15.9 shunt check, having MRI in the morning Reason for Visit Anemia CKD (chronic kidney disease) stage 2, GFR 60-89 ml/min Hyperlipidemia LDL goal <130 [id number] Hypokalemia Hyponatremia Renal artery aneurysm Vitamin D deficiency Chief Complaint E87.6 I12.9 E55.9 RENAL 6 MONTH F/U hiatal hernia hiatal hernia r15.9 shunt check, having MRI in the morning Reason for Visit Anemia CKD (chronic kidney disease) stage 2, GFR 60-89 ml/min Hyperlipidemia LDL goal <130 [id number] Hypokalemia Hyponatremia Renal artery aneurysm Vitamin D deficiency 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 2 N18.2 July 16, 2024 11:27am Chief Complaint Admit Date Right Knee DJD July 16, 2024 8:5 8am D64.9 E8701 E87.6 I12.9 E78.5 E55.9 I72. 2 N18.2 July 16, 2024 11:27am Right Knee DJD August 02, 2024 7:3 0am Chief Complaint * Patient is being seen for Patient is here for follow-up after completing her cervical CT-scan. and a follow-up Neurosurgical visit. * Pt. is experiencing neck and low back pain. Pt. describes her symptoms as aching, and that the symptoms are intermittent. Additional Source Comments INFORMATION SOURCE (unrecogn ized section and content) DATE CREATED AUTHOR 11/02/2017 [facility] DATE CREATED AUTHOR AUTHOR'S ORGANIZ ATION 11/25/2021 [facility] DATE CREATED AUTHOR AUTHOR'S ORGANIZ ATION 06/02/2022 [facility] DATE CREATED AUTHOR AUTHOR'S ORGANIZ ATION 07/31/2022 [facility] DATE CREATED AUTHOR AUTHOR'S ORGANIZ ATION 01/22/2023 [facility] DATE CREATED AUTHOR AUTHOR'S ORGANIZ ATION 03/30/2023 [facility] DATE CREATED AUTHOR AUTHOR'S ORGANIZ ATION 05/29/2023 [facility] EPIC DATE CREATED AUTHOR AUTHOR'S ORGANIZ ATION 01/20/2024 [facility] DATE CREATED AUTHOR AUTHOR'S ORGANIZ ATION 02/05/[address] [facility] DATE CREATED AUTHOR AUTHOR'S ORGANIZ ATION 03/22/[address] [facility] DATE CREATED AUTHOR AUTHOR'S ORGANIZ ATION 03/23/2024 [facility] DATE CREATED AUTHOR AUTHOR'S ORGANIZ ATION 10/09/2024 [facility] EPIC DATE CREATED AUTHOR AUTHOR'S ORGANIZ ATION 10/11/2024 [facility] DATE CREATED AUTHOR AUTHOR'S ORGANIZ ATION 10/25/2024 [facility] l Source Comments (unrecognize d section and content) In the event this informatio n is protected by the Federal Confidentiality of Alcohol and Drug Abuse Patient Records regulations: The Federal rules restrict any use of the information to criminally investigate or prosecute any alcohol or drug abuse patient.[facility] the event this information is protected by the Federal Confidentiality of Alcohol and Drug Abuse Patient Records regulations: The Federal rules restrict any use of the information to criminally investigate or prosecute any alcohol or drug abuse patient.[facility] RehabilitationIn the event this information is protected by the Federal Confidentiality of Alcohol and Drug Abuse Patient Records regulations: The Federal rules restrict any use of the information to criminally investigate or prosecute any alcohol or drug abuse patient.[facility] RehabilitationIn the event this information is protected by the Federal Confidentiality of Alcohol and Drug Abuse Patient Records regulations: The Federal rules restrict any use of the information to criminally investigate or prosecute any alcohol or drug abuse patient.[facility] RehabilitationIn the event this information is protected by the Federal Confidentiality of Alcohol and Drug Abuse Patient Records regulations: The Federal rules restrict any use of the information to criminally investigate or prosecute any alcohol or drug abuse patient.[facility] RehabilitationIn the event this information is protected by the Federal Confidentiality of Alcohol and Drug Abuse Patient Records regulations: The Federal rules restrict any use of the information to criminally investigate or prosecute any alcohol or drug abuse patient.[facility] RehabilitationIn the event this information is protected by the Federal Confidentiality of Alcohol and Drug Abuse Patient Records regulations: The Federal rules restrict any use of the information to criminally investigate or prosecute any alcohol or drug abuse patient.[facility] RehabilitationIn the event this information is protected by the Federal Confidentiality of Alcohol and Drug Abuse Patient Records regulations: The Federal rules restrict any use of the information to criminally investigate or prosecute any alcohol or drug abuse patient.[facility] RehabilitationIn the event this information is protected by the Federal Confidentiality of Alcohol and Drug Abuse Patient Records regulations: The Federal rules restrict any use of the information to criminally investigate or prosecute any alcohol or drug abuse patient.[facility] RehabilitationIn the event this information is protected by the Federal Confidentiality of Alcohol and Drug Abuse Patient Records regulations: The Federal rules restrict any use of the information to criminally investigate or prosecute any alcohol or drug abuse patient.[facility] RehabilitationIn the event this information is protected by the Federal Confidentiality of Alcohol and Drug Abuse Patient Records regulations: The Federal rules restrict any use of the information to criminally investigate or prosecute any alcohol or drug abuse patient.[facility] RehabilitationIn the event this information is protected by the Federal Confidentiality of Alcohol and Drug Abuse Patient Records regulations: The Federal rules restrict any use of the information to criminally investigate or prosecute any alcohol or drug abuse patient.[facility] RehabilitationIn the event this information is protected by the Federal Confidentiality of Alcohol and Drug Abuse Patient Records regulations: The Federal rules restrict any use of the information to criminally investigate or prosecute any alcohol or drug abuse patient.[facility] Reason for Visit (unrecogniz ed section and [...] XR chest 2 views Mireille Zurita MD [address] [place], [place] [address] Referral ID Status Reason Start Date Expiration Date Visits Requested Visits Authorized [id number] Authorized Perform Procedure 03/10/2023 03/09/2024 1 1 Specialty Diagnoses / Procedures Referred By Heidi t Referred To Contact Diagnoses Spinal stenosis, cervical region Other spondylosis with myelopathy, cervical region Spinal stenosis, cervical region [M48.02] Other spondylosis with myelopathy, cervical region [M47.12] Procedures OR ARTHRD ANT INTERDY CERVCL BELW C2 EA ADDL NTRSPC OR ARTHRD ANT INTERBODY DECOMPRESS CERVICAL BELW C2 OR ALLOGRAFT FOR SPINE SURGERY ONLY STRUCTURAL OR ANTERIOR INSTRUMENTATION 4-7 VERTEBRAL SEGMENTS C3-4, C4-5, C5-6, C6-7 ANTERIOR DISC EXCISION/ ALLOGRAFT FUSION & PLATE FIXATION WITH FLAT PLATE CERVICAL X-RAY Mireille Zurita MD [address] [place], [place] [address] [address] [address] Referral ID Status Reason Start Date Expiration Date Visits Re quested Visits Authorized [id number] 1 1 Specialty Diagnoses / Procedures Referred By Heidi li Referred To Contact Diagnoses Cervical spondylosis with myelopathy Procedures ECG 12 Lead Mireille Zurita MD [address] [place], [place] [address] Referral ID Status Reason Start Date Expiration Date V isits Requested Visits Authorized [id number] Pending Review 03/10/2023 03/09/2024 1 1 Reason Comments Post-op Visit Specialty Diagnoses / Procedures Referred By Heidi li Referred To Contact Radiology Diagnoses 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) Procedures XR cervical spine 2-3 views Mireille Zurita MD [address] [place], [place] [address] Referral ID Status Reason Start Date Expiration Date Visits Requested Visits Authorized [id number] Authorized Perform Procedure 05/10/2023 05/09/2024 1 1 Reason Comments Post-op Spine Surgery Intermittent neck stiffness and headaches. Reason Comments Refill Request Specialty Diagnoses / Procedures Referred By Heidi li Referred To Contact Radiology Diagnoses Cervical spondylosis with myelopathy Procedures XR cervical spine 2-3 views Mireille Zurita MD [address] [place] [address] Referral ID Status Reason Start Date Expiration Date Visits Requested Visits Authorized [id number] Authorized Perform Procedure 06/16/2023 06/15/2024 1 1 Reason Comments Follow-up Patient is having no symptoms. Reason Comments Radiology CT Specialty Diagnoses / Procedures Referred By Heidi li Referred To Contact CT IMAGING Diagnoses Paraesophageal hernia Procedures CT ABD/PEL W IVCON CT ABD & [place] [address] [facility] [facility] [address] [place] [address] [place] [address] Referral ID Status Reason Start Date Expiration Date V isits Requested Visits Authorized [id number] Closed Auto-Generate d Referral 10/01/2021 10/31/2022 1 1 Reason Comments Pain Reason Comments Pre-op Exam Reason Comments Follow-up Patient is complaini ng of tension in her neck. She describes it as intermittent aching. Reason Comments Allergy Testing Pt here for first re ad on metal patch testing Reason Comments Nasal Congestion Reason Comments Skin Check Suspicious Skin Lesion Reason Comments Facial Injury Follow up CT [facility] . RAST test Reason Comments Follow-up Pt here for second a nd final patch read Reason Comments Pre-op Exam Reason Onset Date Comments UTI 10/19/2024 Care Teams (unrecognized sec tion and content) Team Status: Active Member Role Status Dates Imer Purcell MD Primary Care Provider Active Team Status: Inactive Member Role Status Dates Imer Purcell MD Primary Care Provider Active Start: July 16, 2024 End: July 16, 2024 Rush Knapp Jr, DO Attending Provider Active Start: July 16, 2024 End: July 16, 2024 Team Status: Inactive Member Role Status Dates Imer Purcell MD Primary Care Provider Active Start: August 02, 2024 End: August 02, 2024 Rush Knapp Jr, DO Attending Provider Active Start: August 02, 2024 End: August 02, 2024 Team Status: Active Member Role Status Dates Imer Purcell MD Primary Care Provider Active Start: June 27, 2024 Gino Barbosa MD Attending Provider Active Start : June 27, 2024 Team Status: Inactive Member Role Status Dates Imer Purcell MD Primary Care Provider Active Start: July 11, 2024 End: July 11, 2024 Gino Barbosa MD Attending Provider Active Start : July 11, 2024 End: July 11, 2024 Sugar Refinery Supervisor Relationship Specialty Start Date End Date Monika Guerrero [address] [facility] [place] [address] PCP - General 08/13/04 Sugar Refinery Supervisor Relationship Specialty Start Date End Date Monika Guerrero [address] [facility] [place] [address] PCP - General 08/13/04 Sugar Refinery Supervisor Relationship Specialty Start Date End Date Monika Guerrero [address] [facility] [address] PCP - General 08/13/04 Sugar Refinery Supervisor Relationship Specialty Start Date End Date Imer Purcell MD [address] [id number] PCP - General Family Practice 11/03/21 Sugar Refinery Supervisor Relationship Specialty Start Date End Date Imer Purcell MD [address] [place] [address] PCP - General Family Practice 11/03/21 Sugar Refinery Supervisor Relationship Specialty Start Date End Date Imer Purcell MD [address] [place] [address] PCP - General Family Practice 11/03/21 Sugar Refinery Supervisor Relationship Specialty Start Date End Date Imer Purcell MD [address] [place] [address] PCP - General Family Practice 11/03/21 Sugar Refinery Supervisor Relationship Specialty Start Date End Date Imer Purcell MD [address] [place] [address] PCP - General Family Practice 11/03/21 Team Status: Inactive Member Role Status Dates Imer Purcell MD Primary Care Provider, Attending Pr ovider Active Team Status: Inactive Member Role Status Dates Imer Purcell MD Primary Care Provider Active dAan Gonzalez Attending Provider Active Team Status: Inactive Member Role Status Dates Imer Purcell MD Primary Care Provider Active Jorge Ramirez MD Attending Provider Active Sugar Refinery Supervisor Relationship Specialty Start Date End Date Imer Purcell MD [address] [place] [address] PCP - General Family Medicine 11/03/21 Team Status: Inactive Member Role Status Dates Imer Purcell MD Primary Care Provider Active JERALD TurciosC Attending Provider Active Team Status: Inactive Member Role Status Dates Imer Purcell MD Primary Care Provider Active Marika Friedman PA-C Attending Provider Active Sugar Refinery Supervisor Relationship Specialty Start Date End Date Imer Purcell MD [address] [place] [address] PCP - General 12/07/22 Sugar Refinery Supervisor Relationship Specialty Start Date End Date Imer Purcell MD [address] [place] [address] PCP - General 12/07/22 Sugar Refinery Supervisor Relationship Specialty Start Date End Date Imer Purcell MD [address] [place] [address] PCP - General 12/07/22 Sugar Refinery Supervisor Relationship Specialty Start Date End Date Imer Purcell MD [address] [place] [address] PCP - General 12/07/22 Sugar Refinery Supervisor Relationship Specialty Start Date End Date Imer Purcell MD [address] [place] [address] PCP - General 12/07/22 Sugar Refinery Supervisor Relationship Specialty Start Date End Date Imer Purcell MD [address] [place] [address] PCP - General 12/07/22 Sugar Refinery Supervisor Relationship Specialty Start Date End Date Imer Purcell MD PCP - General Family Medicine 11/03/21 Sugar Refinery Supervisor Relationship Specialty Start Date End Date Imer Purcell MD [address] [place] [address] PCP - General 12/07/22 Sugar Refinery Supervisor Relationship Specialty Start Date End Date Imer Purcell MD [address] [place] [address] PCP - General 12/07/22 Team Status: Inactive Member Role Status Dates Imer Purcell MD Primary Care Provide r, Attending Provider Active Start: December 08, 2023 End: December 08, 2023 Sugar Refinery Supervisor Relationship Specialty Start Date End Date Imer [...] January 24, 2024 End: January 24, 2024 Sugar Refinery Supervisor Relationship Specialty Start Date End Date Monika Guerrero [address] [place] [address] PCP - General 08/13/04 11/02/21 Sugar Refinery Supervisor Relationship Specialty Start Date End Date Imer Purcell MD [address] [place] [address] PCP - General Family Medicine 05/24/23 Imer Purcell MD [address] [place] [address] Family Medicine 05/24/23 Sugar Refinery Supervisor Relationship Specialty Start Date End Date Imer Purcell MD [address] [place] [address] PCP - General Family Medicine 05/24/23 Imer Purcell MD [address] [place] [address] Family Medicine 05/24/23 Sugar Refinery Supervisor Relationship Specialty Start Date End Date Imer Purcell MD [address] [place] [address] PCP - General Family Medicine 05/24/23 Imer Purcell MD [address] [place] [address] Family Medicine 05/24/23 Sugar Refinery Supervisor Relationship Specialty Start Date End Date Imer Purcell MD [address] [place] [address] PCP - General Family Medicine 05/24/23 Imer Purcell MD [address] [place] [address] Family Medicine 05/24/23 Sugar Refinery Supervisor Relationship Specialty Start Date End Date Imer Purcell MD [address] [place] [address] PCP - General Family Medicine 05/24/23 Imer Purcell MD [facility] [place] [address] [facility] Medicine 05/24/23 Team Status: Inactive Member Role Status Karlie Purcell MD Primary Care Provider Active Start: March 06, 2024 End: March 06, 2024 Jorge Ramirez MD Attending Provider Active S tart: March 06, 2024 End: March 06, 2024 Team Status: Active Member Role Status Karlie Purcell MD Primary Care Provider Active Start: March 06, 2024 Jorge Ramirez MD Attending Provider, Other Provider Active Start: March 06, 2024 Team Status: Active Member Role Status Karlie Purcell MD Primary Care Provide r, Attending Provider Active Start: March 08, 2024 Team Status: Inactive Member Role Status Karlie Purcell MD Primary Care Provider Active Start: March 08, 2024 End: March 08, 2024 Keagan Chadwick MD Attending Provider Active Star t: March 08, 2024 End: March 08, 2024 Team Status: Inactive Member Role Status Dates Imer Purcell MD Primary Care Provide r, Attending Provider Active Start: March 08, 2024 End: March 08, 2024 Sugar Refinery Supervisor Relationship Specialty Start Date End Date Imer Purcell MD [address] [place] [address] PCP - General 12/07/22 Sugar Refinery Supervisor Relationship Specialty Start Date End Date Imer Purcell MD [address] [place] [address] PCP - General 12/07/22 Sugar Refinery Supervisor Relationship Specialty Start Date End Date Imer Purcell MD [address] [place] [address] PCP - General Family Medicine 05/24/23 Imer Purcell MD [address] [place] [address] Family Medicine 05/24/23 Sugar Refinery Supervisor Relationship Specialty Start Date End Date Imer uPrcell MD [address] [place] [address] PCP - General Family Medicine 05/24/23 Imer Purcell MD [address] [place] [address] Family Medicine 05/24/23 Sugar Refinery Supervisor Relationship Specialty Start Date End Date Imer Purcell MD [address] [place] [address] PCP - General Family Medicine 05/24/23 Imer Purcell MD [address] [place] [facility] [place] [address] Family Medicine 05/24/23 Sugar Refinery Supervisor Relationship Specialty Start Date End Date Imer Purcell MD [address] [place] [facility] [place] [address] PCP - General Family Medicine 05/24/23 Imer Purcell MD [address] [place] [facility] [place] [address] Family Medicine 05/24/23 Sugar Refinery Supervisor Relationship Specialty Start Date End Date Imer Purcell MD [address] [place] [facility] [place] [address] PCP - General Family Medicine 05/24/23 Imer Purcell MD [address] [place] [facility] [place] [address] Family Medicine 05/24/23 Sugar Refinery Supervisor Relationship Specialty Start Date End Date Imer Purcell MD [address] [place] [facility] [place] [address] PCP - General Family Medicine 05/24/23 Imer Purcell MD [address] [place] [facility] [place] [address] Family Medicine 05/24/23 Sugar Refinery Supervisor Relationship Specialty Start Date End Date Imer Purcell MD [address] [place] [facility] [place] [address] PCP - General Family Medicine 05/24/23 Imer Purcell MD [address] [place] [facility] [place] [address] Family Medicine 05/24/23 Sugar Refinery Supervisor Relationship Specialty Start Date End Date Imer Purcell MD [address] [place] [facility] [place] [address] PCP - General Family Medicine 05/24/23 Imer Purcell MD [address] [place] [facility] [place] [address] Family Medicine 05/24/23 Sugar Refinery Supervisor Relationship Specialty Start Date End Date Imer Purcell MD [address] [place] [facility] [place] [address] PCP - General Family Medicine 05/24/23 Imer Purcell MD [address] [place] [facility] [place] [address] Family Medicine 05/24/23 Sugar Refinery Supervisor Relationship Specialty Start Date End Date Imer Purcell MD [address] [place] [facility] [place] [address] PCP - General Family Medicine 05/24/23 Imer Purcell MD [address] [place] [facility] [place] [address] Family Medicine 05/24/23 Sugar Refinery Supervisor Relationship Specialty Start Date End Date Imer Purcell MD [address] [place] [facility] [place] [address] PCP - General Family Medicine 05/24/23 Imer Purcell MD [address] [place] [facility] [place] [address] Family Medicine 05/24/23 Sugar Refinery Supervisor Relationship Specialty Start Date End Date Imer Purcell MD [address] [place] [facility] [place] [address] PCP - General Family Medicine 05/24/23 Imer Purcell MD [address] [place] [facility] [place] [address] Family Medicine 05/24/23 Sugar Refinery Supervisor Relationship Specialty Start Date End Date Imer Purcell MD [address] [place] [facility] [place] [address] PCP - General Family Medicine 05/24/23 Imer Purcell MD [address] [place] [facility] [place] [address] Family Medicine 05/24/23 Sugar Refinery Supervisor Relationship Specialty Start Date End Date Imer Purcell MD [address] [place] [facility] [place] [address] PCP - General Family Medicine 10/08/24 Sugar Refinery Supervisor Relationship Specialty Start Date End Date Imer Purcell MD [address] [place] [facility] [place] [address] PCP - General Family Medicine 10/08/24 Sugar Refinery Supervisor Relationship Specialty Start Date End Date Imer Purcell MD [address] [place] [facility] [place] [address] PCP - General Family Medicine 10/08/24 Goals (unrecognized section and content) Goals may [...] prevention of constipation Hold for loose stools 210 (Given - Provider: Janett Galvan RN) 0805 [...] MINDY) 0929 (Rate/Dose Verify - Provider: Beth Bronson, RN)1900 (Stopped - Provider: Luzma Adhikari, MINDY) PRN Medication Order 03/21/2023 03/22/2023 03/23/2023 cyclobenzaprine [...] preference? Yes 0620 (Given - Provider: Luzma Adhikari RN) oxyCODONE (Roxicodone) immediate release tablet 5 mg 5 mg, oral, Every 4 hours PRN, pain moderate (4-6), first line, Starting on Tue03/21/23 at 1619, Phase II/On Unit, If ordered PRN for pain, nurse is permitted to administer this medication for higher pain scores based on patient preference? Yes 2150 (Given - Provider: Janett Galvan, MINDY) 1119 (Given - Provider: Beth Bronson, MINDY)2038 [...] BE BASED ON THE PRIMARY CLINICAL RECORDS. [employer] [facility]. provides no warranty or guarantee of the accuracy or completeness of information in this document.
[2024-10-27 10:46] LABS: Basophils Absolute Auto 0.1 10^3/uL (0.0-0.1); Basophils Percent Auto 1.4 % (0.2-2.0); Eosinophils Absolute Auto 0.3 10^3/uL (0.0-0.7); Eosinophils Percent Auto 3.5 % (0.9-7.0); Hematocrit 38.8 % (36.0-48.0); Hemoglobin 13.1 g/dL (12.0-16.0); Immature Granulocytes Abs Auto 0.01 10^3/uL (0.00-0.03); Immature Granulocytes Pct Auto 0.1 % (0.0-0.5); Lymphocytes Absolute Auto 1.4 10^3/uL (1.2-3.8); Lymphocytes Percent Auto 18.8 % (20.5-60.0); Mean Corpuscular HGB Conc 33.8 g/dL (29.9-35.2); Mean Corpuscular Hemoglobin 30.5 pg (26.7-34.0); Mean Corpuscular Volume 90.2 fL (81.0-99.0); Mean Platelet Volume 9.1 fL (9.5-13.5); Monocytes Absolute Auto 0.7 10^3/uL (0.3-0.8); Monocytes Percent Auto 9.2 % (1.7-12.0); Neutrophils Absolute Auto 5.1 10^3/uL (1.4-6.5); Platelet Count 373 10^3/uL (150-450); Red Cell Distribution Width 13.2 % (11.0-15.0); White Blood Count 7.7 10^3/uL (4.0-11.0)
[2024-10-27 11:12] LABS: Alanine Aminotransferase 24 U/L (14-59); Albumin Level 3.7 g/dL (3.4-5.0); Alkaline Phosphatase 98 U/L (46-116); Anion Gap 13.1; Aspartate Amino Transferase 14 U/L (15-37); Bilirubin Total 0.7 mg/dL (0.2-1.0); Carbon Dioxide 28.7 mmol/L (21.0-32.0); Chloride 99 mmol/L (98-107); Chol HDL Ratio 2.9; Cholesterol 282 mg/dL (<=200); Estimated GFR (African America >60 (>=60 mL/min/1.73m^2); Estimated GFR (Non-African Ame >60 (>=60 mL/min/1.73m^2); Globulin 3.6 g/dL; Glucose 115 mg/dL (74-106); HDL Cholesterol 98 mg/dL (40-60); Potassium 3.8 mmol/L (3.5-5.1); Sodium 137 mmol/L (136-145); Thyroid Stimulating Hormone 0.695 uIU/mL (0.358-3.740); Total Protein 7.3 g/dL (6.4-8.2); Triglycerides 59 mg/dL (<=150); VLDL CHOLESTEROL 11.8 mg/dL
[2024-10-27 11:35] LABS: Estimated Average Glucose 131 mg/dL; Glycohemoglobin A1C 6.2 % (4.5-6.2)
[2024-10-27 13:59] LABS: Internal Control Within Normal Limits; Occult Blood Negative
[2024-10-28 11:09] LABS: Insulin 12.6 uIU/mL (2.6-24.9)
== END 2024-10-27 10:19 | disposition home or self-care (01) ==
LOC: LAB 10:19
PROVIDERS: PCP Family Medicine; Visit Provider Family Medicine
DX: E55.9 Vitamin D deficiency, unspecified (principal); E78.00 Pure hypercholesterolemia, unspecified; I27.20 Pulmonary hypertension, unspecified; I10 Essential (primary) hypertension; R73.09 Other abnormal glucose; Z12.12 Encounter for screening for malignant neoplasm of rectum; D64.9 Anemia, unspecified
CPT/HCPCS: 36415; 80053; 80061; 82306; 83036; 83525; 83540; 84436; 84443; 84481; 85025; G0328

== ENCOUNTER 2024-10-29 11:04 | Outpatient (OUT) | payer MEDICARE, SELFPAY ==
--- OUTSIDE RECORDS SUMMARY | 2014-02-20 04:30 | XMS_ITS | Continuity of Care Document ---
Author Organization [facility] Address [address] [place] [address] Phone Care Team Providers Care Medical Officer Psychiatry Name Role Phone Elijah Dillon Unavailable Unavailable Procedures Procedure Date TDAP VACCINE >7 IM ZOSTER VACC, SC PREVENTIVE COUNSELING, INDIV IMMUNIZATION ADMIN TDAP VACCINE >7 IM IMMUNIZATION ADMIN, EACH ADD ZOSTER VACC, SC Advance Directives Directive Yes / No Effective Date File Name Resuscitation Not Answered N/A N/A Life Support Not Answered N/A N/A Intubation Not Answered N/A N/A Antibiotics Not Answered N/A N/A IV Fluid Support Not Answered N/A N/A Tube Feed Not Answered N/A N/A Other Directive N/A N/A WARNING:The information contained in this section is historical and is provided for information only and does not constitute a legal document or any assurance that the information is still accurate. Please verify the information with the bentley of the legal document before using it for clinical purposes. Encounters Encounter Description Practice Location Reason(s) For Visit Diagnoses Date Provider Providers Copied on Encounter PREVENTIVE COUNSELING, INDIV [facility], [address], [place], [id number], [place] tel:[phone] [facility] Need for prophylactic vaccination with combined diphtheria-tet anus-pertussis (DTP) (DTaP) vaccineNeed for prophylactic vaccination and inoculation, other viral diseases Irina Rowland. [address] [place], [place], [id number], [place]. tel:[phone] Family History Family Member Type Diagnosis Age At Onset No Information Immunizations Vaccine Date Status Comments Zoster administered Source: New Imm unization Record Tdap administered Note: VIS given for all vaccines administered today. ; Source: New Immunization Record Payers Payer name Insurance type Covered republican ID Eduardo lennon(s) Medical [place] CI [id number] Social History Type Description Quantity Date Captured Comments Alcohol Use Details Unknown Caffeine Use Details Unknown Tobacco Use Status No Information Smoking Status No Information Sex Female Chief Complaint And Reason For Visit No Information Reason For Referral Reason For Referral No Information History Of Present Illness Encounter Date Complaint History Of Prese nt Illness No Information Functional Status Date Functional Assessmen t No Information Instructions Date Instruction Additional Infor mation No Information Assessments Type Assessment Date No Information Patient Care Teams Name Effective Dates (start - stop) Status Members No Information
--- OUTSIDE RECORDS SUMMARY | 2024-10-29 11:08 | XMS_ITS | Encounter Summary ---
Author Organization [facility] Address [address] [place] [address] Care Team Providers Care Process Manager Name Role Phone Monika Guerrero Primary Care Provider [phone] Rico Agarwal MD Primary Care Provider [phone] Source Comments In the event this information is protected by the Federal Confidentiality of Alcohol and Drug AbusePatient Records regulations: The Federal rules restrict any use of the information to criminally investigate or prosecute any alcohol or drug abuse patient.[facility] Encounter Details Date Type Department Care Team (Late st Contact Info) Description 10/17/2021 Get Medical Advice General Surgery [address] [facility] [address] [place] [address] [place] [address] [facility] [address] [place] [address] Manometry Social History Tobacco Use Types Packs/Day [...] N ot on file 10/01/2021 Data from: https://www.neighborhoodatlas.medicine.[facility].edu/. Last address used for calculation [address] [...] on filedocumented in this encounter Care Teams Process Manager Relationship Specialty Start Date End Date Monika Guerrero [address] [place] [id number] PCP - General 08/13/04 11/02/21 Rico Agarwal MD [address] [place] [phone] PCP - General Family Medicine 11/03/21 documented as of this encounter
--- OUTSIDE RECORDS SUMMARY | 2024-10-29 11:08 | XMS_ITS | Encounter Summary ---
Author Organization [facility] Address [address] [place] [address] Care Team Providers Care Secondary Market Manager Name Role Phone Monika Guerrero Primary Care Provider [phone] Rico Agarwal MD Primary Care Provider [phone] Source Comments In the event this information is protected by the Federal Confidentiality of Alcohol and Drug AbusePatient Records regulations: The Federal rules restrict any use of the information to criminally investigate or prosecute any alcohol or drug abuse patient.[facility] Encounter Details Date Type Department Care Team (Late st Contact Info) Description 10/02/2021 Get Medical Advice General Surgery [address] [facility] [address] [place] [address] [place] [address] [address] [facility] [address] [place] [address] CT Abdomen/Pel Social History Tobacco Use Types Packs/Day Years [...] N ot on file 10/01/2021 Data from: https://www.neighborhoodatlas.medicine.[facility].edu/. Last address used for calculation [address] [...] on filedocumented in this encounter Care Teams Secondary Market Manager Relationship Specialty Start Date End Date Monika Guerrero [address] [facility] [address] [place] [phone] PCP - General 08/13/04 11/02/21 Rico Agarwal MD [address] [facility] [place] [place] [phone] PCP - General Family Medicine 11/03/21 documented as of this encounter
--- OUTSIDE RECORDS SUMMARY | 2024-10-29 11:08 | XMS_ITS | Clinical Summary ---
Author Organization [facility] Address [address] [place] [address] Care Team Providers Care Environmental Scientist Name Role Phone Rico Agarwal MD Primary Care Provider [phone] Allergies Active Allergy Reactions Criticality Noted Date [...] Monitored by Dr. Barbosa ( Nephrology in Deport) Stable. Essential hypertension 03/12/2023 Overview (05/11/2024): Last [...] Orders Only [facility] [address] [place] [address] Barbara Thacker MA 10/19/2024 Telephone [facility] [address] [facility] [address] [place] [address] Sam Perez PA UTI 10/08/2024 1:30 PM EDT Office Visit [facility] [address] [place] [address] Patel Claros, LILLIAM Primary osteoarthritis of right knee (Primary Dx); Pre-op exam 10/08/2024 Bamboo flowsheet [facility] [address] [place] [address] Patel Claros, LILLIAM 10/08/2024 Travel 07/30/2024 Telephone [facility] [address] [facility] [address] [place] [address] Jr. Simba Knapp, DO surgery from Last [...] [address] [place] [address] Cintia Collado MD [address] [place] [address] 11/19/2024 10:30 AM EDT Office Visit [facility] [address] [place] [address] Sam Perez, PA [address] [place] [address] 11/28/2024 9:50 AM EDT Procedure Visit [facility] [address] [place] [address] Cintia Collado MD [address] [place] [address] 06/18/2025 10:50 AM EST Office Visit [facility] [address] [place] [address] Janay Ngo, PARTICIPANT ADMINISTRATOR-CLIPPER MACHINE [address] [place] [address] Health Maintenance Due Date Last Done Comments CT Colonography 1952 Colonoscopy 1952 Colorectal Cancer Screening 1952 FIT-DNA 1952 FIT 1952 FOBT 1952 Sigmoidoscopy 1952 Mammogram 1992 Influenza Vaccine Completed 02/22/2024, , 05/06/2022, Additional history exists Pneumococcal Vaccine: 65+ Years Completed 4 Insurance MEDICARE [employer]ET[employer] Advance Directives Documents on File Type Date Recorded Patient Dust Collector Operator Expl anation Power of Oil Lease Operator 06/11/2024 10:51 PM Sarah Zhou IMG_[id number] 100.jpeg Power of Oil Lease Operator 06/11/2024 10:51 PM IMG_0 101.jpeg Power of Oil Lease Operator 06/11/2024 10:51 PM IMG_0 102.jpeg Power of Oil Lease Operator 06/11/2024 10:51 PM IMG_0 103.jpeg Healthcare Agents on File Name Relationship Healthcare Agent Relationshi p Communication Sarah Zhou Friend Health Care Agent Care Teams Environmental Scientist Relationship Specialty Start Date End Date Rico Agarwal MD [address] [place] [address] PCP - General Family Medicine 10/08/24
--- OUTSIDE RECORDS SUMMARY | 2024-10-29 11:08 | XMS_ITS | Encounter Summary ---
Author Organization [facility] Address [address] [place] [address] Care Team Providers Care Steamtable Attendant Railroad Name Role Phone Rico Agarwal MD Primary Care Provider [phone] Reason for Visit * Reason Onset Date Comments UTI 10/19/2024 Encounter Details Date Type Department Care Team (Late st Contact Info) Description 10/19/2024 Telephone [facility] [address] [facility] [address] [place] [address] Sam Perez PA [address] [facility] [address] [place] [address] UTI Social History Tobacco Use Types Packs/Day [...] 10/22/2024 3:02 PM EDT Urinalysis sent to [facility] for Sunday 10/29. * Telephone Encounter - [...] she would like to do that at [facility]. * Telephone Encounter - Barbara Casey MA [...] DERM [address] [place] [address] Cintia Collado MD [address] [place] [address] 11/19/2024 10:30 AM EDT Office Visit [facility] [address] [place] [address] Sam Perez PA [address] [place] [address] 11/28/2024 9:50 AM EDT Procedure Visit [facility] D[facility]M [address] [place] [address] Cintia Collado MD [address] [place] [address] 06/18/2025 10:50 AM EST Office Visit [facility] D[facility]M [address] [place] [address] Janay Ngo APRN-PEDIATRICIAN/MEDICAL DOCTOR [address] [place], [...] hematuria documented in this encounter Care Teams Steamtable Attendant Railroad Relationship Specialty Start Date End Date Rico Agarwal MD [address] [facility] [place] [address] PCP - General Family Medicine 10/08/24 documented as of this encounter
--- OUTSIDE RECORDS SUMMARY | 2024-10-29 11:08 | XMS_ITS | Encounter Summary ---
Author Organization [facility] Address [address] [place] [address] Phone Care Team Providers Care Inside Outside Sales Representative Name Role Phone Rico Agarwal MD Primary Care Provider [phone] Encounter Details Date Type Department Care Team (Late st Contact Info) Description 05/10/2023 Scanned Document [facility] [address] [facility] [address] [place] [address] Giovani Goldsmith MD [address] [place] [address] Social History Tobacco Use Types [...] Plan Patient has spine surgery No Alix Ltuz RN documented as of this encounter Visit Diagnoses Not on filedocumented in this encounter Additional Health Concerns Active Problems Noted Date Diagnosed Date Patient has spine surgery 02/18/2023 Assessment Noted Time A fall risk assessment has been complete d for the patient 05/10/2023 11:29 AM EST documented as of this encounter Care Teams Inside Outside Sales Representative Relationship Specialty Start Date End Date Rico Agarwal MD [address] [id number] PCP - General 12/07/22 documented as of this encounter
--- OUTSIDE RECORDS SUMMARY | 2024-10-29 11:08 | XMS_ITS | Encounter Summary ---
Author Organization [facility] Address [address] [place] [address] Care Team Providers Care Border Measurer Name Role Phone Rico Agarwal MD Primary Care Provider [phone] Encounter Details Date Type Department Care Team (Late st Contact Info) Description 10/22/2024 Orders Only [facility] [address] [place] [address] Barbara Thacker MA Social History [...] DERM [address] [place] [address] Cintia Collado MD [address] [place] [address] 11/19/2024 10:30 AM EDT Office Visit [facility] [address] [place] [address] Sam Perez PA [address] [place] [address] 11/28/2024 9:50 AM EDT Procedure Visit [facility] [address] [place] [address] Cintia Collado MD [address] [place] [address] 06/18/2025 10:50 AM EST Office Visit [facility] D[facility]M [address] [place] [address] Janay Ngo APRN-[employer]AVER [address] [place] [address] documented as of this encounter Visit Diagnoses Not on filedocumented in this encounter Care Teams Border Measurer Relationship Specialty Start Date End Date Rico Agarwal MD [address] [place] [address] PCP - General Family Medicine 10/08/24 documented as of this encounter
--- OUTSIDE RECORDS SUMMARY | 2024-10-29 11:08 | XMS_ITS | Encounter Summary ---
Author Organization [facility] Address [address] [place] [address] Phone Care Team Providers Care Telegraph Printer Mechanic Name Role Phone Rico Agarwal MD Primary Care Provider [phone] Encounter Details Date Type Department Care Team ([facility] st Contact Info) Description 01/20/2023 Scanned Document [facility] [address] [place] [address] Conversion, Onbase Social History Tobacco Use Types [...] on filedocumented in this encounter Care Teams Telegraph Printer Mechanic Relationship Specialty Start Date End Date Rico Agarwal MD [address] [facility] [place] [address] PCP - General 12/07/22 documented as of this encounter
--- OUTSIDE RECORDS SUMMARY | 2024-10-29 11:09 | XMS_ITS | Encounter Summary ---
Author Organization [facility] Address [address] [place] [address] Care Team Providers Care Snow Technician Name Role Phone Rico Agarwal MD Primary Care Provider [phone] Source Comments In the event this information is protected by the Federal Confidentiality of Alcohol and Drug AbusePatient Records regulations: The Federal rules restrict any use of the information to criminally investigate or prosecute any alcohol or drug abuse patient.[facility] Encounter Details Date Type Department Care Team (Late st Contact Info) Description 05/28/2022 Get Medical Advice General Surgery [address] [place], [place] [id number] Freda Pop APRN.[facility] [address] [place], [place] [id number] upper GI Social History Tobacco Use Types [...] N ot on file 05/23/2022 Data from: https://www.neighborhoodatlas.medicine.[facility]/. Last address used for calculation [address] [...] on filedocumented in this encounter Care Teams Snow Technician Relationship Specialty Start Date End Date Rico Agarwal MD PCP - General Family Medicine 11/03/21 documented as of this encounter
--- OUTSIDE RECORDS SUMMARY | 2024-10-29 11:09 | XMS_ITS | Encounter Summary ---
Author Organization [facility] Address [facility] [place] [address] Care Team Providers Care Veterinarian Helper Name Role Phone Rico Agarwal MD Primary Care Provider [phone] Source Comments In the event this information is protected by the Federal Confidentiality of Alcohol and Drug AbusePatient Records regulations: The Federal rules restrict any use of the information to criminally investigate or prosecute any alcohol or drug abuse patient.[facility] Encounter Details Date Type Department Care Team (Late st Contact Info) Description 11/25/2021 Patient Msg General Surgery [address] [place], [place] [id number] Provider, Deedee Operative Report dated 11/16/2021 Social [...] N ot on file 10/01/2021 Data from: https://www.neighborhoodatlas.medicine.[facility]/. Last address used for calculation [address] [...] on filedocumented in this encounter Care Teams Veterinarian Helper Relationship Specialty Start Date End Date Rico Agarwal MD PCP - General Family Medicine 11/03/21 documented as of this encounter
--- OUTSIDE RECORDS SUMMARY | 2024-10-29 11:09 | XMS_ITS | Encounter Summary ---
Author Organization [employer] Address [id number] [address] [place] [address] Care Team Providers Care Stemhole Borer And Topper Name Role Phone Provider, Siddharth MD Primary Care Provider Un available Encounter Details Date Type Department Care Team (Late st Contact Info) Description 08/06/2024 Telephone [facility] Internal Medicine - Family Medicine [address] [place] [phone] Lisa Espinoza CMA Social History Tobacco Use [...] on filedocumented in this encounter Care Teams Stemhole Borer And Topper Relationship Specialty Start Date End Date Provider, MD Siddharth PCP - General 09/10/13 documented as of this encounter
--- OUTSIDE RECORDS SUMMARY | 2024-10-29 11:09 | XMS_ITS | Encounter Summary ---
Author Organization [facility] Address [address] [place] [address] Care Team Providers Care Refiner Operator Name Role Phone Rico Agarwal MD Primary Care Provider [phone] Source Comments In the event this information is protected by the Federal Confidentiality of Alcohol and Drug AbusePatient Records regulations: The Federal rules restrict any use of the information to criminally investigate or prosecute any alcohol or drug abuse patient.[facility] Encounter Details Date Type Department Care Team (Late st Contact Info) Description 06/08/2022 Get Medical Advice General Surgery [address] [place], [place] [phone] Freda Pop APRN.[facility] [address] [place], [place] [phone] Upper G I Social History Tobacco Use [...] N ot on file 05/23/2022 Data from: https://www.neighborhoodatlas.medicine.[facility]/. Last address used for calculation [address] [...] on filedocumented in this encounter Care Teams Refiner Operator Relationship Specialty Start Date End Date Rico Agarwal MD PCP - General Family Medicine 11/03/21 documented as of this encounter
--- OUTSIDE RECORDS SUMMARY | 2024-10-29 11:09 | XMS_ITS | Clinical Summary ---
Author Organization [facility] Address [address] [place] [address] Care Team Providers Care Scale Mechanic Name Role Phone Rico Agarwal MD Primary Care Provider [phone] Allergies No known active allergies Medications ibuprofen [...] Not on file Insurance MEDICARE Care Teams Scale Mechanic Relationship Specialty Start Date End Date Rico Agarwal MD [address] [place] [address] PCP - General Family Medicine 08/16/17
--- OUTSIDE RECORDS SUMMARY | 2024-10-29 11:09 | XMS_ITS | Clinical Summary ---
Author Organization [employer] Address [id number] [address] [place] [address] Care Team Providers Care Invoice Coder Name Role Phone Provider, Siddharth MD Primary Care Provider Un available Encounters Date Type Department Care Team Description 08/06/2024 Telephone [facility] Internal Medicine - Family Medicine [address] [place] [address] Lisa Espinoza CMA from Last [...] Not on file Insurance MEDICARE Care Teams Invoice Coder Relationship Specialty Start Date End Date Provider, Conversion, PCP - General 09/10/13
--- OUTSIDE RECORDS SUMMARY | 2024-10-29 11:09 | XMS_ITS | Clinical Summary ---
Author Organization [facility] Address [address] [place] [address] Care Team Providers Care Manuscripts Archivist Name Role Phone Rico Agarwal MD Primary Care Provider [phone] Allergies No known active allergies Medications HYDROCHLOROTHIA [...] Plan (11/03/2021 10:05 AM EDT): Assessment: s/p GRINDER OPERATOR shunt (2006), was followed by neurosurgery Currently follows with PCP Asymptomatic Stable. Congenital hydrocephalus 02/08/2005 Refusal of blood transfusion s as patient is Yarsanism Assessment & Plan (11/03/2021 10:06 AM EDT): Assessment: Documents and worksheet re: fractions scanned into reQwip. CKD (chronic kidney disease) stage 3, GFR 30-59 ml/min Assessment & Plan (11/03/2021 10:08 AM EDT): Assessment: 10/21/2021 GFR 59 mL/min Creatinine 1.[address] Barbosa ( Nephrology in [place]) Stable. Essential hypertension Assessment & Plan (11/03/2021 [...] N ot on file 05/23/2022 Data from: https://www.neighborhoodatlas.medicine.[facility]/. Last address used for calculation [...] BASIC METABOLIC PNL (11/17/2021 6:22 AM EDT) [facility] Glucose 110(H) 74 - 99 mg/dL 11/17/2021 7:12 AM EDT [facility] Comment: The [place] Diabetes Association (ADA) provides guidance for cutoff [...] Standards of Medical Care in Diabetes 2016, [place] Diabetes Association. Diabetes Care. 2016.39(Suppl 1). BUN 13 7 - 21 mg/dL 11/17/2021 7:12 AM EDT [facility] Creatinine 0.91 0.58 - 0.96 mg/dL 11/17/2021 7:12 AM EDT [facility] Sodium 132(L) 136 - 144 mmol/L 11/17/2021 7:12 AM EDT [facility] Potassium 3.6(L) 3.7 - 5.1 mmol/L 11/17/2021 7:12 AM EDT [facility] Chloride 95(L) 97 - 105 mmol/L 11/17/2021 7:12 AM EDT [facility] CO2 23 22 - 30 mmol/L 11/17/2021 7:12 AM EDT [facility] Anion Gap 14 9 - 18 mmol/L 11/17/2021 7:12 AM EDT [facility] Calcium, Total 9.6 8.5 - 10.2 mg/dL 11/17/2021 7:12 AM EDT [facility] Estimated Glomerular Filtration Rate 69 >=60 mL/min/1. 73m 11/17/2021 7:12 AM EDT [facility] Comment:Estimated Glomerular Filtration Rate (eGFR) is [...] EDT Patito Mendez MD LABORATORY Final Result [facility] [address] [place] [address], from Last 3 Months or Most Recently Relevant to Health Maintenance Insurance MEDICARE AETNA SUPPLEMENT Advance Directives Documents on File Type Date Recorded Patient Video Game Producer Expl anation Advance Directive(s) 11/03/2021 10:09 AM Advance Directive(s) 06/23/2006 Advance Directive(s) 06/23/2006 Care Teams Manuscripts Archivist Relationship Specialty Start Date End Date Rico Agarwal MD PCP - General Family Medicine 11/03/21
--- OUTSIDE RECORDS SUMMARY | 2024-10-29 11:09 | XMS_ITS | Encounter Summary ---
Author Organization [facility] Address [address] [place] [address] Care Team Providers Care Senior Management Consultant Name Role Phone Rico Agarwal MD Primary Care Provider [phone] Rico Agarwal MD Unavailable [phone] Rico Agarwal MD Primary Care Provider [phone] Encounter Details Date Type Department Care Team (Late st Contact Info) Description 07/16/2024 External Result Encounter [facility] External Department Unsolicited Jr. Simba Knapp, DO [address] [address] Social History Tobacco Use Types Packs/Day Years [...] MD [address] [place] [address] 11/19/2024 10:30 AM EDT Office Visit [facility] [address] [place] [address] Sam Perez, PA [address] [place] [address] 11/28/2024 9:50 AM EDT Procedure Visit [facility] [address] [place] [address] Cintia Collado MD [address] [place] [address] 06/18/2025 10:50 AM EST Office Visit [facility] [address] [place] [address] Janay Ngo, TEACHER-INDUSTRIAL COFFEE GRINDER [address] [place] [address] documented as of this encounter Procedures Procedure Name Priority Date/Time Associated Diagnosis Comments ECG 12-LEAD 07/16/2024 9:28 AM EDT documented in this encounter Results * ECG 12 lead (07/16/2024 9:28 AM EDT) 07/16/2024 9:28 AM EDT Misael [facility] - 07/16/2024 4:14 PM EDT [facility] Main [address] [address] Electrocardiograph Report Signed Patient: Mary Goode MR#: [id number] : 1950 Acct:[id number] Age/Sex: 73 / F ADM Date: 07/16/24 Loc: PS Room: Type: [facility] CLI Attending Dr: Simba Knapp Jr, DO [...] change was found Confirmed by Simba Morel ([id number]) on 07/16/2024 4:14:04 PM Referred By: Electronically Signed By: Simba Morel Transcribed By: MUS Signed By Simba Morel MD 07/16/24 1614 Procedure Note Janet Morel MD - 07/16/2024 [place] [address] Electrocardiograph Report Signed Patient: Mary Goode MMR#: [id number] : 1950cct:[id number] Age/Sex: 73 / FADM Date: 07/16/24 Loc: PS Room:Type: [facility] CLI Attending Dr: Simba Knapp Jr, DO [...] change was found Confirmed by Simba Morel ([id number]) on 07/16/2024 4:14:04 PM Referred By: Electronically Signed By: Simba Morel Transcribed By: MUS Signed By Simba Morel MD 07/16/24 1614 us Jr. Simba Knapp DO ECG ORDERABLES Final R [place] [address], documented in this encounter Visit Diagnoses Not on filedocumented in this encounter Care Teams Senior Management Consultant Relationship Specialty Start Date End Date Rico Agarwal MD PCP - General Family Medicine 05/24/23 10/07/24 [place] [address] [place] [phone] PCP - General Family Medicine 10/08/24 Rico Agarwal MD Family Medicine 05/24/23 10/07/24 documented as of this encounter
--- OUTSIDE RECORDS SUMMARY | 2024-10-29 11:09 | XMS_ITS | Clinical Summary ---
Author Organization [facility] Address [address] [place] [address] Phone Care Team Providers Care Clothing Supervisor Name Role Phone Rico Agarwal MD Primary Care Provider [phone] Allergies No known active allergies Medications amLODIPine [...] Monitored by Dr. Barbosa ( Nephrology in [place]) Stable. Essential hypertension 03/12/2023 Overview (03/12/2023): Last [...] (03/12/2023): Last Assessment & Plan: Assessment: s/p SCROLL SAW OPERATOR shunt (2006), was followed by neurosurgery [...] place to sleep or slept in a group home (including now)? No 03/21/2023 Comments No Sex [...] Vasquez, RN Medical Devices Implanted Type Area Dairy Powder Mixer Operator Device Identifier Shelf Expiration Date Model / Serial / Lot Allograft, Triad Lordotic 7 X 11 X 14 - [id number] - [id number] Implanted:Qty : 1 on 03/21/2023 by Giovani Goldsmith MD at [facility] Spinal Hardware N/A: Spine Cervical [employer] 10/13/2027 [id number] / [id number] / Allograft, Triad Lordotic 6 X 11 X 14 - [id number] - [id number] Implanted:Qty : 1 on 03/21/2023 by Giovani Goldsmith MD at [facility] Spinal Hardware N/A: Spine Cervical [employer] 05/18/2027 [id number] / [id number] / Allograft, Triad Lordotic 7 X 11 X 14 - [id number] - [id number] Implanted:Qty : 1 on 03/21/2023 by Giovani Goldsmith MD at [facility] Spinal Hardware N/A: Spine Cervical [employer] 10/13/2027 [id number] / [id number] / Allograft, Triad Lordotic 7 X 11 X 14 - [id number] - [id number] Implanted:Qty : 1 on 03/21/2023 by Giovani Goldsmith MD at [facility] Spinal Hardware N/A: Spine Cervical [employer] 10/13/2027 [id number] / [id number] / Screw, Acp, Self Drill, 3.5 X 15mm, Variable - [id number] - [id number] Implanted:Qty : 10 on 03/21/2023 by Giovani Goldsmith MD at [facility] Spinal Hardware N/A: Spine Cervical [employer] [id number] / [id number] / 70 Mm 2.1 H Plate Implanted:Qty : 1 on 03/21/2023 by Giovani Goldsmith MD at [facility] N/A: Spine Cervical [employer] [id number] / [id number] / Additional Health Concerns Active Problems Noted Date Diagnosed Date Patient has spine surgery 02/18/2023 Insurance MEDICARE PART A AND B AETNA SENIOR SUPPLEMENT Advance Directives For more information, please contact: [phone] (Available ) * Full Code (Latest Code [...] does not warra nt discussion Care Teams Clothing Supervisor Relationship Specialty Start Date End Date Rico Agarwal MD [address] [place] [address] PCP - General 12/07/22
--- OUTSIDE RECORDS SUMMARY | 2024-10-29 11:09 | XMS_ITS | Encounter Summary ---
Author Organization [facility] Address [address] [place] [address] Phone Care Team Providers Care Piercing Machine Operator Name Role Phone Rico Agarwal MD Primary Care Provider [phone] Encounter Details Date Type Department Care Team (Late st Contact Info) Description 03/22/2023 Scanned Document [facility] [address] [place] [address] Conversion, Onbase Social History Tobacco Use Types [...] documented as of this encounter Care Teams Piercing Machine Operator Relationship Specialty Start Date End Date Rico Agarwal MD [address] [place] [address] PCP - General 12/07/22 documented as of this encounter
--- OUTSIDE RECORDS SUMMARY | 2024-10-29 11:09 | XMS_ITS | Encounter Summary ---
Author Organization [facility] Address [facility] [place] [address] Care Team Providers Care Hot Kettle Tender Name Role Phone Rico Agarwal MD Primary Care Provider [phone] Source Comments In the event this information is protected by the Federal Confidentiality of Alcohol and Drug AbusePatient Records regulations: The Federal rules restrict any use of the information to criminally investigate or prosecute any alcohol or drug abuse patient.[facility] Reason for Visit * Reason Comments Refill Request Encounter Details Date Type Department Care Team (Late st Contact Info) Description 04/26/2024 Refill General Surgery [address] [place] [address] Freda Pop APRN.[facility] [address] [place] [phone] Refill Request Social History Tobacco Use Types [...] N ot on file 05/23/2022 Data from: https://www.neighborhoodatlas.medicine.[facility]/. Last address used for calculation [address] [...] gangrene documented in this encounter Care Teams Hot Kettle Tender Relationship Specialty Start Date End Date Rico Agarwal MD PCP - General Family Medicine 11/03/21 documented as of this encounter
--- OUTSIDE RECORDS SUMMARY | 2024-10-29 11:09 | XMS_ITS | Encounter Summary ---
Author Organization [facility] Address [address] [place] [address] Care Team Providers Care Automotive Service Director Name Role Phone Rico Agarwal MD Primary Care Provider [phone] Rico Agarwal MD Unavailable [phone] Rico Agarwal MD Primary Care Provider [phone] Encounter Details Date Type Department Care Team (Late st Contact Info) Description 07/16/2024 External Result Encounter [facility] External Department Unsolicited Jr. Simba Knapp, DO [address] [address] Social History Tobacco Use Types Packs/Day Years [...] 11/14/2024 10:00 AM EDT Office Visit [facility] [address] [place] [address] Cintia Collado MD [address] [place] [address] 11/19/2024 10:30 AM EDT Office Visit [facility] [address] [place] [address] Sam Perez, PA [address] [place] [address] 11/28/2024 9:50 AM EDT Procedure Visit [facility] [address] [place] [address] Cintia Collado MD [address] [place] [address] 06/18/2025 10:50 AM EST Office Visit [facility] [address] [place] [address] Janay Ngo, PRODUCTION CONTROL SPECIALIST-RESEARCH PHARMACIST [address] [place] [address] documented as of this encounter Procedures Procedure [...] Adan Chen M.D.07/16/2024 4:21 PM Dictation Location: [place] [address] Transcribed By: JACKIE 07/16/24 1621 Dictated By: Adan Chen DO 07/16/24 1619 Signed By: <Electronically signed by Adan Chen DO in OV> 07/16/24 1621 Narrative 07/16/2024 4:24 PM EDT [address] [address] XRay Report Signed Patient: Mary Goode MR#: [id number] : 1950 Acct:[id number] Age/Sex: 73 / F ADM Date: 07/16/24 [...] Procedure Note Radiology, Radiologist, MD - 07/16/[address] [address] XRay Report Signed Patient: Mary Goode MMR#: [id number] : 1950cct:[id number] Age/Sex: 73 / FADM Date: 07/16/24 Loc: [...] Adan Chen M.D.07/16/2024 4:21 PM Dictation Location: [facility] Transcribed By: [facility] 07/16/24 1621 Dictated By: Adan Chen DO 07/16/24 1619 Signed By: <Electronically signed by Adan Chen DO in OV> 07/16/24 1621 [facility] IMG XR PROCEDURES Final Result documented in this encounter Visit Diagnoses Not on filedocumented in this encounter Care Teams Automotive Service Director Relationship Specialty Start Date End Date Rico Agarwal MD PCP - General Family Medicine 05/24/23 10/07/24 Rico Agarwal MD [address] [place] [address] PCP - General Family Medicine 10/08/24 Rico Agarwal MD Family Medicine 05/24/23 10/07/24 documented as of this encounter
--- OUTSIDE RECORDS SUMMARY | 2024-10-29 11:09 | XMS_ITS | Encounter Summary ---
Author Organization [facility] Address [address] [place] [address] Phone Care Team Providers Care Account Solutions Analyst Name Role Phone Rico Agarwal MD Primary Care Provider [phone] Encounter Details Date Type Department Care Team ([facility] st Contact Info) Description 12/07/2022 Scanned Document [facility] [address] [place] [address] Conversion, Onbase Social History Tobacco Use Types [...] on filedocumented in this encounter Care Teams Account Solutions Analyst Relationship Specialty Start Date End Date Rico Agarwal MD [address] [facility] [place] [address] PCP - General 12/07/22 documented as of this encounter
[2024-10-29 15:11] LABS: Bilirubin Urine NEGATIVE (NEGATIVE); Blood Urine NEGATIVE (NEGATIVE); Clarity Urine CLEAR (CLEAR); Color Urine YELLOW (YELLOW); Glucose Urine UA NEGATIVE (NEGATIVE); Ketones Urine NEGATIVE (NEGATIVE); Leukocyte Esterase Urine TRACE (NEGATIVE); Nitrite Urine NEGATIVE (NEGATIVE); Protein Urine NEGATIVE (NEG/TRACE); Urobilinogen Urine 0.2 EU/dL (0.2-1.0); pH Urine 6.5 (5.0-9.0)
[2024-10-29 15:12] LABS: Urine Microscopic Indicated YES
[2024-10-29 15:22] LABS: Bacteria Urine TRACE #/HPF (NONE SEEN); Mucus Urine SMALL (NONE SEEN); RBC Urine 0-2 #/HPF (0-2); Squamous Epithelial Cell Urine FEW #/LPF (NONE/RARE); Transitional Epi Cells Urine FEW #/LPF (NONE SEEN)
[2024-10-29 15:23] LABS: Cast Seen? NONE SEEN #/LPF (NONE SEEN); Crystals Seen? None Seen #/HPF (None Seen)
== END 2024-10-29 11:05 | disposition home or self-care (01) ==
LOC: LAB 11:04
PROVIDERS: PCP Family Medicine; Visit Provider Orthopaedic Surgery
DX: Z01.812 Encounter for preprocedural laboratory examination (principal); Z01.818 Encounter for other preprocedural examination
CPT/HCPCS: 81001

== ENCOUNTER 2024-11-21 13:55 | Outpatient (RCR) | payer MEDICARE, SELFPAY | END 2024-12-19 06:49 | disposition home or self-care (01) | LOC: PT 13:55 | PROVIDERS: PCP Family Medicine; Visit Provider Personal Emergency Response Attendant | DX: M25.561 Pain in right knee (principal) | CPT/HCPCS: 97110; 97112; 97162 ==

== ENCOUNTER 2025-01-02 09:49 | Outpatient (OUT) | payer MEDICARE, SELFPAY ==
--- OUTSIDE RECORDS SUMMARY | 2025-01-02 10:06 | XMS_ITS | CCD ---
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 Name Role Phone PHYSICIAN, DEFAULT Unavailable Unavailable PHYSICIAN, DEFAULT Unavailable Unavailable YODER, MUJEEB A Unavailable Unavailable YODER, MUJEEB A Unavailable Unavailable SAMUEL SANCHEZ Unavailable Unavailable IMER PURCELL Unavailable Unavailable Monika Guerrero Primary Care Provider Darlene Antonioul Unavailable Jorge Ramirez Unavailable Imer Purcell MD Primary Care Provider [phone] Keagan Chadwick Unavailable MD Imer Purcell Primary Care Provider [phone] MD Imer Purcell Attending Provider [phone] Ziyad Ngo Unavailable MD Imer Purcell Primary Care Provider [phone] MD Imer Purcell Attending Provider Adan Gonzalez Attending Provider [phone] MD Jorge Ramirez Attending Provider [phone] Imer Purcell MD Primary Care Provider [phone] MONIKA GUERRERO Primary Care Unavaila ble MENDEZ, [...] Provider [phone] ARI Pop Attending Provider [phone] MD Imer Purcell Primary Care Provider [phone] ARI Pop Attending Provider ANTHONY Friedman Attending Provider [phone] MD Imer Purcell Attending Provider [phone] HOY ., DR WILLAMS Consulting Unavailable [...] Imer Purcell MD Primary Care Provider [phone] MIREILLE ZURITA Attending Unavailable Adan Gonzalez Referring Unavailable Dr. Imer Purcell Primary Care Unavail able Dr. Imer Purcell Primary Care Unavail able MIREILLE ZURITA Referring Unavailable MIREILLE ZURITA Attending Unavailable CECELIA HARKINS Attending Unavailable LONA PANDA Referring Unavailable Imer Purcell MD Primary Care Provider [phone] MD Imer Purcell Primary Care Provider [phone] MD Imer Purcell Attending Provider [phone] MD Gino Antonoi Attending Provider IMER PURCELL Primary Care Unavailable MIREILLE ZURITA Admitting Unavailable MIREILLE ZURITA Attending Unavailable IMER PURCELL Primary Care Unavailable COLLIN SAGATSUME Consulting Unavailable ROBERT MACK Unavailable MIREILLE ZURITA S Referring Unavailable IMER PURCELL Primary Care Unavailable MIREILLE ZURITA S Referring Unavailable IMER PURCELL Primary Care Unavailable Monika Guerrero Primary Care Provider Imer Purcell MD Primary Care Provider [phone] Imer Purcell MD Unavailable MD Jorge Ramirez Attending Provider MD Imer Purcell Primary Care Provider MD Imer Purcell Attending Provider [phone] MIREILLE ZURITA Referring Unavailable IMER PURCELL Primary Care Unavailable MIREILLE ZURITA S Referring Unavailable HOY IMER DON Primary Care Unavailable ARASELI FAUSTIN Referring Unavailable HOYIMER DON Primary Care Unavailable MIREILLE ZURITA S Referring Unavailable HOY, IMER DON Primary Care Unavailable ARASELI FAUSTIN Attending Unavailable HOY IMER DON Primary Care Unavailable MIREILLE ZURITA S Attending Unavailable HOY IMER DON Primary Care Unavailable MIREILLE ZURITA Attending Unavailable HOY IMER DON Primary Care Unavailable MIREILLE ZURITA S Attending Unavailable HOY, IMER DON Primary Care Unavailable MIREILLE ZURITA S Attending Unavailable HOY, IMER DON Primary Care Unavailable Imer Purcell MD Primary Care Provider [phone] Rush Knapp DO Attending Provider Imer Purcell MD Primary Care Provider [phone] Jorge Ramirez Admitting Unavailable Jorge Ramirez Attending Unavailable Hoy, Imer M Primary Care Unavailable Hoy, Imer M Primary Care Unavailable Hoy, Imer M Attending Unavailable Hoy, Imer M Admitting Unavailable PacoGino Admitting Unavailable PacoDarleneul Attending Unavailable Hoy, Imer M Primary Care Unavailable Hoy, Imer M Primary Care Unavailable Hoy, Imer M Attending Unavailable Hoy, Imer M Admitting Unavailable Rush Knapp Jr Admitting Unavailable Rush Knapp Jr Attending Unavailable Hoy, Imer M Primary Care Unavailable Rush Knapp Jr Admitting Unavailable Rush Knapp Jr Attending Unavailable Hoy, Imer M Primary Care Unavailable Rush Knapp Jr Attending Unavailable Hoy, Imer M Primary Care Unavailable Rush Knapp Jr Admitting Unavailable RUSH KNAPP Attending Unavailable STEPRUSH MCNULTY Admitting Unavailable HOY, IMER Primary Care Unavailable HOY, IMER Primary Care Unavailable RUSH KNAPP Attending Unavailable RUSH KNAPP Admitting Unavailable ERI NGO Attending Unavailable BEN FLORENTINO Attending Unavailable HEATHER BANG Attending Unavailable HEATHER BANG Attending Unavailable HEATHER BANG Attending Unavailable ESTELLE PEREZ Attending Unavailable PEPITO HOLLOWAY Attending Unavailable ESTELLE PEREZ Referring Unavailable KINJAL GARLAND Attending Unavailable ESTELLE PEREZ Attending Unavailable ESTELLE PEREZ Attending Unavailable ESTELLE PEREZ Referring Unavailable JR. KNAPP GEORGE C Attending Unavaila octavio KNAPP JR., GEORGE C Referring UnavailESTELLE Hicks Attending Unavailable HEATHER BANG Attending Unavailable JR. KNAPP GEORGE C Referring UnavailHEATHER Arshad Attending Unavailable BEN FLORENTINO Attending Unavailable BEN FLORENTINO Referring Unavailable Allergies Allergy Classification Reported Allergen(s) Allergy Type Date of Onset Reaction(s) Facility (2 sources) No Known Allergies; Translations: [No Known Allergies] Propensity to adverse reactions (disorder) [facility] Repository (1 source) No Known Medication Allergies; Translations: [No Known Medication Allergies] Propensity to adverse reactions (disorder) [facility] Repository (20 sources) Other Propensity to adverse reactions Other [facility] (1 source) levoFLOXacin; Translations: [levoFLOXacin] Drug Allergy [facility] Repository Medications Current Medications Medication Drug Class(es) [...] pain scores based on patient preference? Yes acetaminophen 325 mg / oxyCODONE hydrochloride 5 mg oral tablet (7 sources) Opioid Agonist Start: 11-02-2024 End: 11-19-2024 take 1 tablet by mouth every six hours for pain oxyCODONE-acetaminophen (Percocet) 5-325 MG tablet Indications: Primary osteoarthritis of right knee Take 1 tablet by mouth every 6 (six) hours if needed for severe pain for up to 7 days 28 tablet 11/12/2024 11/19/2024 Active amLODIPine 10 mg oral tablet (20 sources) [...] sources) Muscle Relaxant Start: 07-01-19 End: 10-19-19 24 take 1 tablet by mouth every eight [...] once daily. Take 1 capsule by mo uth once daily. Liver Support - (14 sources) Liver Support - as directed Sublingual ONCE A DAY Active losartan potassium 50 mg oral tablet (20 sources) Angiotensin 2 Receptor Sonia Start: 08-05-2021 losartan (Cozaar) 50 MG tablet 05/03/2023 Active Comment on above: Take 50 mg by mouth once daily. Misc. Devices misc (14 sources) Start: 07-17-2024 Misc. Devices misc Indications: [...] ophthalmic solution (5 sources) Quinolone Antimicrobial Start: 01-16-2024 ofloxacin (Ocuflox) 0.3 % ophthalmic solution PLEASE SEE ATTACHED FOR DETAILED DIRECTIONS 05/24/2023 Active ondansetron 4 mg oral tablet (3 sources) Serotonin-3 Receptor Antagonist Start: 11-06-2024 End: 11-13-2024 ondansetron (Zofran) 4 MG tablet Indications: Postoperative nausea 1 tab every 6h prn nausea 12 tablet 11/06/2024 11/13/2024 Active Start: 03-21-2023 take 1 tablet by meghana th every eight hours as needed ondansetron (Zofran) [...] 19, 2023 10:51am take 1 capsule by md ut once daily venlafaxine XR (Effexor XR) [...] Bile Acid Sequestrant Start: 08-06-19 End: 07-19-19 take 3 tablets by mouth twice daily Colesevelam 625 mg tablet Discontinued 1875 MG PO Twice daily August 05, 2021 12:00am July 19, 2023 10:49am Start: 08-05-2021 End: 07-19-2023 take 1875 mg by mouth twice daily Colesevelam Discontinued 1875 MG PO Twice daily August 05, 2021 12:00am July 19, 2023 10:49am take 3 tablets by mo uth once daily at bedtime colesevelam (WELCHOL) 625 [...] prefilled syringe (1 source) Opioid Agonist Start: 023 End: 023 HYDROmorphone (Dilaudid) injection 0.5 mg ibuprofen 800 [...] (8 sources) Glossopyrosis ; Translations: [Glossodynia] Onset: 05-11-19 25 05-11-2024 Episodic Disorders of lipid metabolism (20 sources) [...] disease] Onset: 01-13-20 Resolved : 12-01-19 Chronic Nausea and vomiting (1 source) Postoperative nausea; Translations: [Nausea] 11-06-2024 Episodic Neoplasms of unspecified nature or uncertain behavior [...] 01-26-20 Chronic Other aftercare (2 sources) Other pot fluxer (current) drug therapy; Translations: [Long-term (current) use [...] nevus; Translations: [Nevus, non-neoplastic] 06-19-2024 Episodic Other connective tissue disease (6 sources) History of total knee arthroplasty; Translations: [Presence of right artificial knee joint] 11-19-2024 Chronic Other gastrointestinal disorders (1 source) Drug-induced constipation; Translations: [Drug induced constipation] 03-23-2023 Episodic Other gastrointestinal disorders (2 sources) Complete fecal incontinence; Translations: [Full incontinence of feces] Onset: 03-21-2003-21-2024 Episodic Other hereditary and degenerative nervous system [...] pain] 03-23-2023 Episodic Other non-traumatic joint disorders (3 sources) Pain in right knee; Translations: [Pain in joint, lower leg] Onset: 11-05-1902-13-2024 Episodic Other nutritional; endocrine; and metabolic disorders [...] sources) Transfusion of blood product refused for islam reason; Translations: [Procedure and treatment not carried [...] spine surgery Onset: 02-19-20 23 02-18-2023 Unclassified (8 sources) Preprocedural examination done 03-01-2024 [...] 01-07-2017 05-11-2024 Episodic Other aftercare (1 source) anaesthetic technician (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 No evidence of accelerated or asymmetric wear to tibial tray or patella button. No evidence of fracture or dislocation. Impression: Unremarkable right total knee arthroplasty [facility] Radiology Study observation (narrative) [facility] Coding Summaryon 11-26-2024 Coding Summary HTMLBase 64 [id number]+PGhlYWQ+PE1F [id number] IHVWWUuIKcBrvtMpUC4qvZIkIJDj IC8+PD8eEEKyHnzqpCTnr4E1xLI1 Q56pju3jFEjlxJU3KODqTcYzutmc k2kahLo3OKefPtsjPaHj DYZepK18CIY8nD59Rw45qNJkjMQm m3nylJg9IwQhXEVmKZA6iSmyYDta c5AuLQZnD86tzXZqx1C4 HMWrkVwqhOYyYfMxoXW8vN9qSYis betlw9wihwfjCqs5wk65tNPtd5O2 kIC3G9OczrT6GWChqAKb QvtplYUVbQ4ahtivo7zbgtktWlFs FRIjOTi5VRs0GCKlzQvcOeVuQL76 UCG4MUOczgMtD5BrJJEb sRcpTfI9o1L0Vl7EC1DVGxdxR8AZ TUFSWTwvdGQ+JJ72mt17W8BaPaqi Cnh0BRLdDMF8pAR4jR2p CJOgMHlfe4C2aRN7O2JdumYihb8b z8hzAKFyKPboC83twQFjn1U0QXRu sFO4DIZxrQrbBdLtnA03 Oyc+VUOdkHazl9EuDazsx3bqw4io uIn7PfwkLBUjjmCxlRlcKPQ4c6Fd Lr7lLVNzvYA3mZU2jW3a AwUaPuY1KInlF592KnUpbSXqQoax H87dD5PcjKK+QDGxMud1KGWplWne MN1yB8TiJMKuygeylYKw cEhmUY4yHTEfwqwpEPXzsP7yIPOh U2s3PiQsYiB9ZBsgU9HhBLIpnllb Gz45wE5dAiJyBhK4LQuv I0PewaF7WSRkbRRtGCopAGO1F44r d9Z0ZSEvWUHlNHL1lQH6aI8kyHwz bjogbGVmdDsgdmVydGlj PVqgYAxnS577WFEjcMhxSlCjQRkw ZyBEYXRlOiAgMDcvMjEvMjAyNTwv dGQ+LPZeVBY9yKjsRJPx tOJsQXulJh4gkCxjtTshEJ4uWEUb syekEAHpfV9cKQMekMGjeWvyBH7w KATlxdoss753WtAkUJN8 GOTqhGPhN6XapD3vOyAmQARvDLPf N5SolDQiXBvaT205WJqrTvL0HIRq znXhT1YaMFUtqQfhPfT0 g8K4Yu6Az0UztgwhC2ElcKZkMrVc XkibAWk2Y7ZtIejynLL+EK58PDAi GH00TUk8UNE8lAhrROlt GNTuA9BatX9uAcWjLDUiMNLjVqu+ PHRhYmxlIHdpZHRoPScxMDAlJyBz mJziWZ0jOu8nKSYlAKPe xMotkSKdAjZka6rrFMLrZLsvTX6g hDyuM6DkmHQ9NNCsn7k0Or00Z93a U2TlbJD+EBIppYX7rJP9 tG2fCsZpYkV4CKlsL093IhYtoCGx Vdjaj6qhs4mywEl9IgD3YEPysiWw qNdfUTO1n6EhIl30N52a OBdwWWUcSDDhQEZdQLQbgDgpix6a xD3xQb0+DIBqmLX7aYR7uZ7rLwDa BlY3QJlxM964XsOgjWDd Ujlnk9qnh0lmkRz0KeHyUXZwmcZn gKivYRI2l1UyNu34G2PueWpjl4Lw Qgj6ar63dKJir0N5xQU4 W7DkQMGqiidozZDpqNnsRO8yUCPt jursOWCdhA4rDBIpE1e9FtQpKmJ5 TTiwT6DceiM5EVUspQLr WAIsiGQWwI9xttsaf6nxteblDoTp CSCaJUg7AXw5OKLboOmmUzEbYOO1 VtP4WBX8oHGfnO7xgMxw cgcfaT8oSiu+JRK1pWYqxIGOVN6i OjwvdGQ+VWCpLST3bJmgHXyeRVUk xM8bQNCcA8y3WiVfNvW1 NNwhN8IqvlW9ALNnuAXbXFSbeDQJ hG0qyqqlu0ylrokqHqTqCLBrSFb7 WTy5YRYakBsnSnQlZHP5 RwU5GNP1fHQtyO4noZyaoflyvW9g Oyc+CinesAnlQJR0MVe5J6UwKiq4 PPLqtOevOY4bcCAiOQfa Ro6hcMgnhCrdHP4xBONenqqgs760 XnHqk9hzWKBddMCsVNgqFVP6E15z a2K8ANMcDULxZQW0cBC4 yL0naKtdvjykyJMgrHndpuKhoRao LIbtZMkoP107QGTdmExtUjRuTIw8 E7PtNum9CQZoaPxwII0c tPDpCGnoCl6vlGwseScdHD6oEDLn zcqow892UgNii2kgTNGbeOLwFTeq MZS6H67dw9T9FMOwZRYt AJA7iJJ2dX9xeLrnqjyicYJgcTcu phCjqEymJVyxQIqiV025EICjmJlb QxXksTl3Q2FnImn9EMKa eSvePD8wnCXcEVfvZa2lvDxfwZii PV9eBVSrqrojv821CbWzc1dfKSHx kWUfJZrnLSG2U02ce2M7 WASjKUTcHYN7rJC9tM2xhTuwjmnu bETvsTuoyyGpgVneWHxqEJwjC496 IHRvcDsnPlBhdGllbnQg GIqxGFs9M3RjYgbmoDU+FX77GJZv JS22fJUwvNLjn1rflOi7VyDkXFQb NEE6hYgeBZhts9RzSHMz R30vvEAox7M9HRVsnKjvwJHrHpNh gGS1mJ1wSAansjsnl8eotxkkFfnd x5kxmq27rC81V58qKLnh DBNyNGZtCUYfFORbaXrasj0hbQ1z Ii8+WPKnyPR6yLD5fE4kASExVoB5 QAppJ494QgSqoLByAbql k3grw5xebPd8DhT5MGXwnxNynMds LBE7v9XzSo16G70kXKwrDFUzCFZw RFSdCWMoqPeybt0ksE3j Ii8+ARKeaGS8eMC8aP8vFrMnTnQ9 KWucB578WmMxuOIgTckkF20cO1Dv dXA+FWIhWcw8AXVanHhk JX5pzXXiFHzrRu7jDGG1WxWgHzEz XJuxX2TzSLDdqskbamlpcXQ8UFSg ZUAapI45Zv0kvXrdGAFm xGSZjE0dujcre1ifskuoTqUaUVWf IMk6JOf3IRDbaOqoJjTeIKP6CxR8 DYT2oSJvoC3yeGizepnq iT8oI2MdAWTowtdxSl10iU9zLsJc RpQ6NTaeMgu+UkFJRlNOSURFUiwg XtDEXWBoJIKDGRC3L2Ol Iwb4KWBsiCnvUT1xzZLmCEzyZk0d dAlzvKlmND2eTUUttpefUKCwiF0g VVPncXRwpKfyQI8rMIEm ncfsl996BlMwKLV1KBSoaEZlM9Qi wK3rMnFdKEDhZCVoN7UdtYHpINwi A588TMxzVdK6ALZsbmYt R3CsHXTadKodByL3y5J3Yy5sVk4l WN2kSXWcHI87WZ10oKLfe2J3wRB1 K6AcETZhfjoucoaenAA2 KZNePDLrsP75rIPlBFewWp8eo3B1 s836RWMdKJDzoO98Au1skNymEGLw gYJIbF1goekym3mbsvxt LsBxJQFyBKq3PTd3DCJvzEevAmMu FCN1OfL6QXN6tPAncZ8mnCbltbom bI7dCnn+NzIgWWVhcnM8 Y1QyVyh9WYLfzDgbWI6vnQDzCLoy Hk1uoTskhYeqFT5pJUNvmdktEGXi oS5cFCDjaJKxvOcsSW3y FEFselpgc828RgHpBHC1RDOybJEu H5ScnG3gExYzUQEzVCDyX0IyqQMd ONcyY837UUleGeI1JSVi xxVvJ6VjJUIpzEejTiC1u9F0Wv5Z KZ5VWHE3U8PzEjr1MFZutKxdUJ1y xKRzWEusEe1ewCmutZdi KE1tFVMbigydPSWdjP1lDURzsFZb kNupNL3kOXVegvgrr705DgMfRKB2 MYUbeEDgY0WzvD2qWvRf AMBgJUPrK2AwuMSpXOctV168DHrz NcP7OXOgaoKzV9PgYQDpuTtiAdF6 b3W8Pe0ABOtsH1KnZ0Wx eTwvdGQ+KE24hc23F4JuCznpByq4 MNHyNSF1yUD5zI8fVJQmEFigf0D5 aRK9B2ZskyXvey9tb1hc UFPsXQmhG67kkPBwy0T9NHUguXZ2 GGMuaNsxGgNsuX46Ifz+PGNvbGdy b4OgYifes2ecb1cheOz8 TbBqVFLwkbTtdHaxWNK5u2XxJd57 R36tKVslLRBuGAVpFKXbOGApcYpw hn1ejS3qHd1+PGNvbCB3 zVV1cU0hIpMkLvB7AFedF787UkUi rWHcKmsqz6fza1anbCc2MzTjBUGx hdYnrZcfIKQ1r7TqKv82 V5YsjQshr5BiDbd9lq46eRNyw3V5 eWX7V4QfLQIruvdrqYFlhBirJH5w CTHfwbsxBMSpsO0nYNNe G7n8FoTuOpR8YKhtN9MpusT9WYMp wIHzWMHyoPEVtK0qzxzut6rbtsex HiOgIFIvVXr1QYp4RCQa nZjvApUyDKB2NxP5OLT5tYYoyU1y dBffjfxxbB0rRcm+TMg9m7bhqTLh NV3qyUB1QK83SX80rBJl z9I9uPS8P8RwZRPmbdnfbddrkTN2 TMZdJJGpvX04Ry5fvGarVz8uJGUs VOQ9DZSrcDDhR0TttV7q AeFmVXBwTFJgP8ZtuJPyILohG090 OZovVzX1VQTqixOiJ3HlXIHfgQoq QhW2t6I5Lj2IYR23GQ71 DJ36fTGsn1D1tNK5K4SsKTSfilfz sqtpwVE9XOEnSBKbjF56Vw5bbGgl Bv0uDPBsGLE1DUUprUHv G5ZalS6kDdNgITXjXJZlL9JgfHCr CFjpX666LLfwSqT8FUVbsqEkM1Wp UURwqBtiLgO4u2R4Zl3J Sq27TJ17XI84pIZbl4L8jKS7C7Lc MTZfdteagcdfdVU7IUFkXSHxiM58 Xd0bwJeuJi3fFRFiAQB4 XFUuhYZpS3GvpD4bKoPuULVgCACh K0ZdtJHxTJzeN515AVziYmU2JYDx yvYmH3KpEVGvpUciMhF9 v8H9Ze8YPBihcov0C1MxEkctoUL+ ZW33NRZnEA42fBSgtPNkd5fdoJl2 MhWfZPUyZHO7cEkvRRwf b3J (more content not included)... [facility] Provider Orderson 11-12-2024 Provider Orders [id number]#1.00OTGTIFF [facility] Anesthesia Noteon 11-06-2024 Anesthesia Note [id number]#1.00OTGTIFF [facility] Anesthesia Note [id number] Consent Forms [id number][facility] 11-06-2024 Outside Records [id number][facility] Tele[facility] Strips [id number][facility]-05-2024 Anesthesia Note Patient: MARY GOODE Age: 73 years Sex: FEMALE : 1950 Associated Diagnoses: None Author: Yao Larry DO Postoperative Information Post Operative Note: Post Anesthesia Care Unit. Anesthetic utilized: General. Regional: ACB + iPACK with Exparel/Bupi. Physical Examination VSS. See nursing flowsheet for vital sign measurements. General: No acute distress. Respiratory: Respirations are non-labored. Cardiovascular: Stable hemodynamics.. Neurologic: Alert, Oriented, Normal motor function, Expected sensory deficits from PNB. Review / Management Condition: Stable. Assessment Anesthetic outcome No anesthetic complications noted. Adequate pain relief. No Complaint of nausea and vomiting. Plan Transfer/ Discharge: Patient can be discharged from PACU when criteria met. Condition stable. [Electronically Signed on: 11/05/2024 11:20 EDT] Yao Larry DO [Verified on: 11/05/2024 11:20 EDT] Yao Larry DO [facility] Anesthesia Note Patient: MARY GOODE Age: 73 years Sex: FEMALE : 1950 Associated Diagnoses: None Author: Yao Larry DO Preoperative Information Anesthesiologist scheduled: Yao Larry DO Time of Last Intake: > 8 hours. Patient is Jehovah/s witness and will not accept humna blood products. She will accept albumin and crystalloids. Anesthesia history: Patient history: No prior anesthesia problems. Family history: No prior anesthesia problems. Re-evaluation prior to induction: Completed. Initial evaluation reviewed: No significant interval change, + GERD, patinet not istructed to take PPI. Pepcid 20mg IV given preop.. Review of Systems Constitutional: No fever, No chills. Respiratory: No shortness of breath. Cardiovascular: No chest pain. Gastrointestinal: No heartburn. Neurologic: Alert and oriented X4. ROS reviewed as documented in chart Health Status Allergies: Allergic Reactions (All) Moderate LevoFLOXacin- Tendonitis. Current medications: (Selected) Inpatient Medications Ordered LR 1,000 mL: 20 mL/hr, IV Lidocaine 1% injectable solution: 0.1 mL, ID, Once, PRN: Other (see comment) Pepcid: 20 mg = 2 mL, IV Push, Once ceFAZolin: 2 gm = 50 mL, 100 mL/hr, IV Piggyback, Tiedown Operator tranexamic acid: 1,000 mg = 100 mL, 300 mL/hr, IV Piggyback, Tiedown Operator tranexamic acid: 1,000 mg = 100 mL, 300 mL/hr, IV Piggyback, Tiedown Operator Documented Medications Documented Iron 100 Plus oral tablet: 1 tab(s), Oral, Daily, 0 Refill(s) Potassium Chloride (Uqa-Gcxe-Qvk 10) 10 mEq oral tablet, extended release: 10 mEq = 1 tab(s), Oral, Daily, 180 tab(s), 0 Refill(s) Vitamin B12 50 mcg oral tablet: 50 mcg = 1 tab(s), Oral, Daily, 30 tab(s), 0 Refill(s) Vitamin C 250 mg oral tablet: 250 mg = 1 tab(s), Oral, Daily, 30 tab(s), 0 Refill(s) amLODIPine 10 mg oral tablet: 10 mg = 1 tab(s), Oral, Daily, 30 tab(s), 0 Refill(s) atorvastatin 20 mg oral tablet: 20 mg = 1 tab(s), Oral, HS, 30 tab(s), 0 Refill(s) azelastine 137 mcg/inh (0.1%) nasal spray: 2 puff(s), Nostril-Both, BID donepezil 5 mg oral tablet: 5 mg = 1 tab(s), Oral, Daily, 30 tab(s), 0 Refill(s) gabapentin 300 mg oral capsule: 300 mg = 1 cap(s), Oral, Once a day (at bedtime), 30 cap(s), 0 Refill(s) hydroCHLOROthiazide 25 mg oral tablet: 25 mg = 1 tab(s), Oral, Daily, 30 tab(s), 0 Refill(s) labetalol 200 mg oral tablet: 200 mg = 1 tab(s), Oral, Daily, 180 tab(s), 0 Refill(s) lansoprazole 30 mg oral delayed release capsule: 30 mg = 1 cap(s), Oral, Daily, 30 cap(s), 0 Refill(s) losartan 50 mg oral tablet: 50 mg = 1 tab(s), Oral, Daily, 30 tab(s), 0 Refill(s) venlafaxine 75 mg oral tablet: 75 mg = 1 tab(s), Oral, Daily, 180 tab(s), 0 Refill(s) Problem list: All Problems Anemia / SNOMED CT 487469684 / Confirmed Anxiety / SNOMED CT 68247020 / Confirmed Chronic kidney disease (CKD) / SNOMED CT 0128517367 / Confirmed GERD (gastroesophageal reflux disease) / SNOMED CT 448838359 / Confirmed Hydrocephalus / SNOMED CT 816886249 / Confirmed HTN (hypertension) / SNOMED CT 8661822693 / Confirmed ADITI (obstructive sleep apnea) / SNOMED CT 544537856 / Confirmed OA (osteoarthritis) / SNOMED CT 7465640001 / Confirmed Resolved: Renal artery embolism / SNOMED CT 489000818, Active Problems (8) Anemia Anxiety Chronic kidney disease (CKD) GERD (gastroesophageal reflux disease) HTN (hypertension) Hydrocephalus OA (osteoarthritis) ADITI (obstructive sleep apnea) Histories Family History: Heart attack Father () Colon cancer Mother () Procedure history: Hiatal hernia (378116011). JUANI BSO - Total abdominal hysterectomy and bilateral salpingo-oophorectomy (1587132603). Big toe (587261591). Comments: 10/17/2024 13:38 Gene Conde RN pinning EGD - esophagogastroduodenoscopy ([id number]). Cervical spinal fusion (069881015). Tonsils and adenoids (788911722). Cardiac catheterization (47432936). Colonoscopy (882852759). RN OUTPATIENT SURGERY - Ventriculoperitoneal shunt (268648225). Appendectomy (584010419). Cataract ([id number]). Comments: 10/17/2024 13:37 Gene Conde RN bilateral Embolization coil ([id number]). Comments: 10/17/2024 14:43 Gene Conde RN of renal artery Social History Electronic Cigarette/Vaping Assessment Electronic Cigarette Use: Never. Alcohol Assessment Use: Current. 1-2 times per week Tobacco Assessment Never tobacco user Tobacco Use:. Substance Abuse Assessment Substance use: Never. Home/Environment Assessment Lives with Self. Living situation: Home/Independent. Home equipment: CPAP/BiPAP. . Social & Psychosocial Habits Alcohol 10/17/2024 Alcohol Use: Current Frequency: 1-2 times per week Home/Environment 10/17/2024 Lives with: Self Living situation: Home/Independent Home equipment: CPAP/BiPAP Substance Use 10/17/2024 Substance use: Never Tobacco 10/17/2024 Smoking tobacco use: Never tobacc (more content not included)... Normal [facility] Inpatient Patient Summaryon 11-05-2024 Inpatient [place] [address] Patient Discharge Instructions Name: MARY GOODE : 1950 Patient Address: [address] [place] [address] Primary Care Provider: Name: IMER PURCELL After you are discharged if you find you have any questions, please, call [phone] ext [phone] to speak to a nurse. The Pharmacy at [facility] is open Tuesday through Tuesday from 9A to 6P and Tuesday and Tuesday from 9A to 5P Discharge Diagnosis: Acute pain of right knee Prescription Information: If you have been given a prescription for narcotics, seek immediate medical attention if you have any difficulty breathing or any sudden status changes such as confusion and sleepiness. If you or anyone you know is experiencing suicidal thoughts, mental health, alcohol and/or drug addiction problems; contact the [facility] 29/11 Crisis Hotline -Text 7FCBU pt 828248. If you received any narcotics, sedation, or any other medication that causes drowsiness for the next 24 hours, unless otherwise directed: ? Do not drive a car. ? Do not operate machinery such as power tools, lawn mowers, drills, sewing machines, or stoves ? Avoid alcoholic beverages and drugs for allergies, nerves, or sleep ? Do not make important personal or business decisions or sign any legal documents [facility] would like to thank you for allowing us to assist you with your healthcare needs. The following includes patient education materials and information regarding your injury/illness. MARY GOODE has been given the following list of follow-up instructions, prescriptions, and patient education materials: Follow-up Instructions With: Address: When: Estelle Perez [address] [place] [address] [address] [phone] Business (1) 11/19/2024 10:30 AM With: Address: When: IMER PURCELL [address] [place] [address] [address] [phone] Business (1) Medications During the course of your visit, your medication list was updated with the most current information. The details of those changes are reflected below: Medications to Continue That Have Not Changed Other Medications amLODIPine (amLODIPine 10 mg oral tablet) 1 tab(s) Oral (given by mouth) every day. ascorbic acid (Vitamin C 250 mg oral tablet) 1 tab(s) Oral (given by mouth) every day. atorvastatin (atorvastatin 20 mg oral tablet) 1 tab(s) Oral (given by mouth) At bedtime. azelastine nasal (azelastine 137 mcg/inh (0.1%) nasal spray) 2 puff(s) Nostril-Both 2 times per day. cyanocobalamin (Vitamin B12 50 mcg oral tablet) 1 tab(s) Oral (given by mouth) every day. donepezil (donepezil 5 mg oral tablet) 1 tab(s) Oral (given by mouth) every day. gabapentin (gabapentin 300 mg oral capsule) 1 cap(s) Oral (given by mouth) once a day (at bedtime). hydroCHLOROthiazide (hydroCHLOROthiazide 25 mg oral tablet) 1 tab(s) Oral (given by mouth) every day. labetalol (labetalol 200 mg oral tablet) 1 tab(s) Oral (given by mouth) every day. lansoprazole (lansoprazole 30 mg oral delayed release capsule) 1 cap(s) Oral (given by mouth) every day. losartan (losartan 50 mg oral tablet) 1 tab(s) Oral (given by mouth) every day. multivitamin with iron (Iron 100 Plus oral tablet) 1 tab(s) Oral (given by mouth) every day. potassium chloride (Potassium Chloride (Wiv-Pnme-Ody 10) 10 mEq oral tablet, extended release) 1 tab(s) Oral (given by mouth) every day. venlafaxine (venlafaxine 75 mg oral tablet) 1 tab(s) Oral (given by mouth) every day. It is important to always keep an active list of medications available so that you can share with other providers and manage your medications appropriately. As an additional courtesy, we are also providing you with your final active medications list that you can keep with you. amLODIPine (amLODIPine 10 mg oral tablet) 1 tab(s) Oral (given by mouth) every day. ascorbic acid (Vitamin C 250 mg oral tablet) 1 tab(s) Oral (given by mouth) every day. atorvastatin (atorvastatin 20 mg oral tablet) 1 tab(s) Oral (given by mouth) At bedtime. azelastine nasal (azelastine 137 mcg/inh (0.1%) nasal spray) 2 puff(s) Nostril-Both 2 times per day. cyanocobalamin (Vitamin B12 50 mcg oral tablet) 1 tab(s) Oral (given by mouth) every day. donepezil (donepezil 5 mg oral tablet) 1 tab(s) Oral (given by mouth) every day. gabapentin (gabapentin 300 mg oral capsule) 1 cap(s) Oral (given by mouth) once a day (at bedtime). hydroCHLOROthiazide (hydroCHLOROthiazide 25 mg oral tablet) 1 tab(s) Oral (given by mouth) every day. labetalol (labetalol 200 mg oral tablet) 1 tab(s) Oral (given by mouth) every day. lansoprazole (lansoprazole 30 mg oral delayed release capsule) 1 cap(s) Oral (given by mouth) every day. losartan (losartan 50 mg oral tablet) 1 tab(s) Oral (given by mouth) every day. multivitamin with iron (Iron 100 Plus or (more content not included)... [facility] MAGR Intraoperative Recordon 11-05-2024 MAGR Intraoperative Record MAGR Intra-Op Record Summary Primary Physician: RUSH KNAPP DO Finalized Date/Time: 11/05/24 12:54:39 Pt. Name: MARY GOODE/Sex: 1950 FEMALE Med Rec #: [id number] Physician: RUSH KNAPP DO Financial #: [id number] Pt. Type: D Room/Bed: [facility] Admit/Disch: 11/05/24 06:00:34 - Institution: Case Times MAGR Entry 1 Patient In Room Time 11/05/24 07:55:00 Out Room Time 11/05/24 10:24:00 Anesthesia Start Time 11/05/24 07:58:00 Stop Time 11/05/24 10:26:00 Surgery Start Time 11/05/24 08:29:00 Stop Time 11/05/24 10:19:00 Last Modified By: Jessi Martin RN 11/05/24 10:36:24 Case Attendance MAGR Entry 1 Entry 2 Entry 3 Case Attendee RUSH KNAPP Christopher J DO Long, Barbara RN Role Performed Surgeon - Primary Anesthesiologist of Crop Setting Out Machine Operator Record Time In 11/05/24 07:55:00 11/05/24 07:55:00 11/05/24 07:55:00 Time Out 11/05/24 10:24:00 11/05/24 10:24:00 11/05/24 10:24:00 Procedure Arthroplasty Knee Arthroplasty Knee Arthroplasty Knee Total(Right) Total(Right) Total(Right) Last Modified By: Jessi Martin RN, Barbara RN Long, Barbara RN 11/05/24 10:24:17 11/05/24 10:24:17 11/05/24 10:24:17 Entry 4 Entry 5 Entry 6 Case Attendee Johnathon Little Brittany E CSFA Srikanth CIVIL ENGINEERING DRAFTSPERSON, Brianne BOO CIVIL ENGINEERING DRAFTSPERSON CSFA Role Performed Scrub Personnel Boil Off Machine Operator Cloth Boil Off Machine Operator Cloth Time In 11/05/24 07:55:00 11/05/24 07:55:00 11/05/24 07:55:00 Time Out 11/05/24 10:24:00 11/05/24 09:52:00 11/05/24 10:24:00 Procedure Arthroplasty Knee Arthroplasty Knee Arthroplasty Knee Total(Right) Total(Right) Total(Right) Last Modified By: Jessi Martin RN, Barbara RN Long, Barbara RN 11/05/24 10:24:17 11/05/24 10:24:17 11/05/24 10:24:17 Entry 7 Case Attendee Riky Triana RN Role Performed Scrub Personnel Time In 11/05/24 09:51:00 Time Out 11/05/24 10:24:00 Procedure Arthroplasty Knee Total(Right) Last Modified By: Jessi Martin RN 11/05/24 10:24:17 Surgical Procedures MAGR Pre-Care Text: A.20 Verifies operative procedure, surgical site, and laterality Im.150 Develops individualized plan of care Entry 1 Procedure Arthroplasty Knee Total Primary Procedure Yes Primary Surgeon RUSH KNAPP DO Modifiers Right Surgeon Comment RIGHT TOTAL KNEE Start 11/05/24 08:29:00 Stop 11/05/24 10:19:00 Anesthesia Type General Surgical Service Orthopedics Wound Class Clean Technique Details Closure Technique Primary Entire procedure No was performed via laparoscope or robotic assistance Last Modified By: Jessi Martin RN 11/05/24 10:24:23 Post-Care Text: O.730 The patient's care is consistent with the individualized perioperative plan of care General Case Data MAGR Pre-Care Text: A.350.1 Classifies surgical wound Entry 1 Case Information OR MAGR OR 05 Case Level Level 5 Wound Class Clean Specialty Orthopedics ASA Class 3 Diagnosis Preop Diagnosis DJD RIGHT KNEE Postop Same As Preop Yes Postop Diagnosis DJD RIGHT KNEE Blunt or No Is the procedure No penetrating injury considered occured prior to Emergent/Urgent? the start of the procedure: Last Modified By: Jessi Martin RN 11/05/24 08:33:46 Post-Care Text: O.760 Patient receives consistent and comparable care regardless of the setting Time Out MAGR Entry 1 Procedure(s) Arthroplasty Knee Total(Right) Time Out Checklist Verifications Team Introductions Yes Confirmed Identity, Yes Completed Procedure, Incision Site, and Consent(s) Presence of Yes Site Verification, Yes Necessary Site Marking, Site Procedural Marking Equipment, Devices, Alternative, and/or and Implants Site Marking Verified Exception in Accordance with Facility Policy Anesthesia Review Antibiotic Received Yes All Anesthesia Yes Within an Concerns Addressed Appropriate Time Interval Prior to Surgical Incision Surgeon Review Anticipated Blood Yes Expected Case Yes Loss Risk Addressed Duration Addressed Critical and Yes Non-Routine Steps to be Performed Addressed Nurse Review Equipment Yes Fire Risk Yes Checks/Concerns Assessment Addressed Completed and Interventions Performed Diagnostic and Yes Sterilization n/a Radiological Test Concerns Addressed Results Displayed are Appropriate and Labeled Other Concerns n/a Addressed Time Out Yao Larry Time Out Time 11/05/24 08:28:00 Participants DO, Jessi Martin RN, Mariah Rolle CIVIL ENGINEERING DRAFTSPERSON, Johnathon Little, RUSH KNAPP DO Last Modified By: Jessi Martin RN 11/05/24 08:34:01 Patient Positioning MAGR Pre-Care Text: A.280 Identifies baseline musculoskeletal status Im.40 Positions the patient Im.80 Applies safety devices Entry 1 Procedure Arthroplasty Knee Body Position Supine Total(Right) Left Arm Position Extended on padded arm Right Arm Position Extended on padded arm board board Left Leg Position Extended Right Leg Posit (more content not included)... [facility] MAGR Intraoperative Record MAGR Intra-Op Record Summary Primary Physician: Finalized Date/Time: 11/05/24 08:06:57 Pt. Name: MARY GOODE/Sex: 1950 FEMALE Med Rec #: [id number] Physician: RUSH KNAPP DO Financial #: [id number] Pt. Type: D Room/Bed: / Admit/Disch: 11/05/24 06:00:34 - Institution: Case Times MAGR Entry 1 Patient In Room Time 11/05/24 07:29:00 Out Room Time 11/05/24 07:54:00 Anesthesia Start Time 11/05/24 07:32:00 Stop Time 11/05/24 07:47:00 Surgery Start Time 11/05/24 07:39:00 Stop Time 11/05/24 07:47:00 Last Modified By: Garima Clements RN 11/05/24 07:54:44 Case Attendance MAGR Entry 1 Entry 2 Entry 3 Case Attendee Yao Larry Linda RN Klaehn, Margaret RN Role Performed Anesthesiologist of Crop Setting Out Machine Operator Crop Setting Out Machine Operator Record Time In 11/05/24 07:29:00 11/05/24 07:29:00 11/05/24 07:29:00 Time Out 11/05/24 07:54:00 11/05/24 07:54:00 11/05/24 07:54:00 Procedure Adductor Canal Block, Adductor Canal Block, Adductor Canal Block, iPACK BLOCK iPACK BLOCK iPACK BLOCK Last Modified By: Garima Clements RN, Margaret RN Klaehn, Margaret RN 11/05/24 07:55:13 11/05/24 08:05:51 11/05/24 08:05:51 Surgical Procedures MAGR Pre-Care Text: A.20 Verifies operative procedure, surgical site, and laterality Im.150 Develops individualized plan of care Entry 1 Entry 2 Procedure Adductor Canal Block iPACK BLOCK Primary Procedure Yes No Primary Surgeon Yao Larry Christopher J DO Modifiers Surgeon Comment ADDUCTOR AND IPACK BLOCK PRIOR TO RIGHT TOTAL KNEE Start 11/05/24 07:39:00 11/05/24 07:39:00 Stop 11/05/24 07:47:00 11/05/24 07:47:00 Anesthesia Type Regional Block Regional Block Surgical Service Anesthesia Anesthesia Wound Class Clean Clean Technique Details Closure Technique N/A N/A Entire procedure No No was performed via laparoscope or robotic assistance Last Modified By: Garima Clements RN, Margaret RN 11/05/24 08:02:09 11/05/24 07:55:16 Post-Care Text: O.730 The patient's care is consistent with the individualized perioperative plan of care General Case Data MAGR Pre-Care Text: A.350.1 Classifies surgical wound Entry 1 Case Information OR MAGR Proc Room Case Level None Wound Class Clean Specialty Anesthesia ASA Class 3 Diagnosis Preop Diagnosis ADDUCTOR AND IPACK Postop Same As Preop Yes BLOCK PRIOR TO RIGHT TOTAL KNEE Postop Diagnosis ADDUCTOR AND IPACK BLOCK PRIOR TO RIGHT TOTAL KNEE Blunt or No Is the procedure No penetrating injury considered occured prior to Emergent/Urgent? the start of the procedure: Last Modified By: Garima Clements RN 11/05/24 07:39:02 Post-Care Text: O.760 Patient receives consistent and comparable care regardless of the setting Time Out MAGR Entry 1 Procedure(s) Adductor Canal Block, iPACK BLOCK Time Out Checklist Verifications Team Introductions Yes Confirmed Identity, Yes Completed Procedure, Incision Site, and Consent(s) Presence of Yes Site Verification, Yes Necessary Site Marking, Site Procedural Marking Equipment, Devices, Alternative, and/or and Implants Site Marking Verified Exception in Accordance with Facility Policy Anesthesia Review Antibiotic Received Yes All Anesthesia Yes Within an Concerns Addressed Appropriate Time Interval Prior to Surgical Incision Surgeon Review Anticipated Blood No Expected Case No Loss Risk Addressed Duration Addressed Critical and No Non-Routine Steps to be Performed Addressed Nurse Review Equipment Yes Fire Risk Yes Checks/Concerns Assessment Addressed Completed and Interventions Performed Diagnostic and n/a Sterilization n/a Radiological Test Concerns Addressed Results Displayed are Appropriate and Labeled Other Concerns n/a Addressed Time Out Yao Larry Time Out Time 11/05/24 07:30:00 Participants Adelaida PEARSON Linda RN, Garima Clements RN Last Modified By: Garima Clements RN 11/05/24 08:04:13 General Comments: ipack Patient Positioning MAGR Pre-Care Text: A.280 Identifies baseline musculoskeletal status Im.40 Positions the patient Im.80 Applies safety devices Entry 1 Procedure Adductor Canal Block Body Position Semi-Fowlers Left Arm Position Resting at Side Right Arm Position Resting at Side Left Leg Position Extended Right Leg Position Extended Feet Uncrossed? Yes Press Points Checked Yes Outcome Met (O.80) Yes Last Modified By: Garima Clements RN 11/05/24 07:57:24 Post-Care Text: E.290 Evaluates musculoskeletal status O.80 Patient is free from signs and symptoms of injury related to positioning Skin Prep MAGR Pre-Care Text: A.30 Verifies allergies Im.270 Performs skin preparation Im.270.1 Implements protective measures to prevent skin and tissue injury due to chemical sources Entry 1 Skin Prep Syntegrity Prep Agents (Im.270) Chlorhexidine Gluco (more content not included)... [facility] MAGR PACU Recordon MAGR PACU Record MAGR PACU Record [facility] Primary Physician: RUSH KNAPP DO Finalized Date/Time: 11/05/24 11:09:59 Pt. Name: MARY GOODE/Sex: 1950 FEMALE Med Rec #: [id number] Physician: RUSH KNAPP DO Financial #: [id number] Pt. Type: D Room/Bed: / Admit/Disch: 11/05/24 06:00:34 - Institution: PACU Case Times MAGR Entry 1 In PACU I 11/05/24 10:23:00 Discharge from PACU 11/05/24 11:09:00 I Last Modified By: Garima Clements RN 11/05/24 11:09:54 Finalized By: Garima Clements RN Document Signatures Signed By: Garima Clements RN 11/05/24 11:09 [facility] MAGR Postoperative Recordon 11-05-2024 MAGR Postoperative Record MAGR Phase II Record Summary Primary Physician: RUSH KNAPP DO Finalized Date/Time: 11/05/24 14:02:50 Pt. Name: MARY GOODE/Sex: 1950 FEMALE Med Rec #: [id number] Physician: RUSH KNAPP DO Financial #: [id number] Pt. Type: D Room/Bed: 205/ Admit/Disch: 11/05/24 06:00:34 - Institution: Phase II Case Times MAGR Pre-Care Text: Patient is free from s/s of injury. Patient remains free from compromised physical state related to surgery or anesthesia. Patient comfort maintained. Patient/family verbalize understanding of discharge instructions. Entry 1 In PACU II 11/05/24 11:11:00 Discharge from PACU 11/05/24 13:50:00 II Last Modified By: Gene Cha RN 11/05/24 14:02:46 Post-Care Text: The patient remains free from s/s of injury. Patient's vital signs stable, circulation maintained, return to preop mental and physical status, opsite/dressing intact, minimal or absent nausea and vomiting, tolerates po intake. Patient verbalizes adequate pain control. Patient/family express understanding of discharge instructions. Finalized By: Gene Cha RN Document Signatures Signed By: Gene Cha RN 11/05/24 14:02 [facility] Preoperative Recordon 0 11-05-2024 [facility] Preoperative Record MAGR Pre-Op Record Summary Primary Physician: RUSH KNAPP DO Finalized Date/Time: 11/05/24 08:07:37 Pt. Name: MARY GOODE /Sex: 1950 FEMALE Med Rec #: [id number] Physician: RUSH KNAPP DO Financial #: [id number] Pt. Type: D Room/Bed: / Admit/Disch: 11/05/24 06:00:34 - Institution: Pre-Op Case Times MAGR Pre-Care Text: Patient will be optimally prepared for surgery. Patient is free from s/s of injury. Provide information to patient/family related to plan of care. Verify patient allergies. Confirm identity and verify consent before the operative or invasive procedure. Entry 1 Patient Arrival Time 11/05/24 06:10:00 Preop Departure 11/05/24 07:54:00 Last Modified By: Garima Clements RN 11/05/24 08:07:32 Post-Care Text: Patient is prepared mentally and physically and is ready for surgery. The patient remains free from s/s of injury. Patient/family express understanding of plan of care and participate in decisions affecting his or her perioperrative plan of care. Allergies documented appropriately. Patient identifiers and consent correct. General Comments: Pt arrives to [facility] ambulatory. PT denies cp, sob, cough or flu like symptoms. Pt denies pacemaker/defibillator, pt has sleep apnea. Finalized By: Garima Clements RN Document Signatures Signed By: Garima Clements RN 11/05/24 08:07 [facility] Patient Handouton 11-04-2024 Patient Handout POST OPERATIVE TOTAL KNEE/HIP DISCHARGE INTRUCTIONS SURGEONS WRITTEN INSTRUCTIONS: Walk with walker; bear weight to tolerance on operative extremity Elevate extremity 1 hour 3 times/day to control pain and swelling and apply ice Range of motion to ankle 10 times/hour Range of motion to knee hourly Change dressing daily. Mary hose (compression stockings) for 6 weeks Physical therapy as prescribed May shower, no tub bath. Do not rub/scrub incision. Wash gently Take Aspirin 81mg 2x for 30 days to help prevent blood clots, coated or uncoated per patient preference. WHAT YOU SHOULD KNOW AFTER YOUR OPERATION: If you need pain pills, start before the pain becomes intense. Pain pills are frequently less upsetting to your stomach if you take them with food such as crackers or bread. If you have excessive or persistent pain, swelling, bleeding, nausea, vomiting or any other problems, you should first call your surgeon for advice. If you are unable to contact your surgeon, seek help from the emergency room. FOR THE PREVENTION OF DVT AFTER LOWER EXTREMITY SURGERY What is a DVT? There is always the risk of DVT after lower extremity surgery. DVT, or deep vein thrombosis, is a blood blot in a major vein that may partially or completely block the flow of blood. The clot occurs in the legs or pelvis, in areas where blood flow is slow, or in an injured blood vessel. DVT can be life-threatening should pieces of the clot break away and travel to the lungs. This is called pulmonary embolism What are the symptoms of DVT? The area affected by the blood clot may become swollen and painful, and possibly turn red as the normal flow of blood is blocked. You may also develop edema, which is the build up of fluid in the skin tissues surrounding the clot. If the clot is somewhere other than your leg, there may be no physical signs of DVT. If the clot breaks away and travels to your lungs, you may experience shortness of breath and chest pain. If this occurs you should call your doctor immediately or go to the emergency room. How can I prevent DVT? You should keep active. Moving the ankle and foot and bending the knee as tolerated when you are in bed and walking as tolerated. Take medication, especially the Aspirin, as prescribed by your doctor. What should I do if I think I have a DVT? You should call your doctor or go to the emergency room any time you have a sudden and unusual shortness of breath that is not related to exercise, exertion or anxiety. If you have swelling with redness and pain in your leg, you should call your doctor immediately. If there is concern then a test called ?Venous Doppler? can be done to rule of a DVT. #1 May shower and change dressing daily, no scrubbing or rubbing incision during shower just let the water run over the incision, starting tomorrow #2 stop smoking and drinking alcohol #3 ice to operative knee 20 minutes every hour while awake until pain and swelling control #4 flex and extend both feet/ankles 10 times per hour while awake #5 push both knees backwards into the bed 10 times every hour while awake, clench buttock muscles together 10 times every hour while awake #6 use walker weight-bear as tolerated to operative knee get up every 2 hours while awake and walk around for 1 to 2 minutes #7 flex and extend operative knee over the side of the bed ten times four times a day #8 follow up in office as scheduled #9 [facility] will be contacting you within the next 24 hours to set up home therapy visits #10 proceed immediately to the emergency department for chest pain or shortness of breath #[address] Knapp at the office [phone] or have him paged through the hospital debridging machine operator [phone] for any concerns or questions #12 You have been given a prescription for Percocet, Percocet is a narcotic, narcotics are addictive. If you feel you have issues with addiction please feel free to contact Dr. Knapp, your family physician, or proceed to the nearest hospital's emergency services department. #[address] Knapp at the above numbers if you have not had a bowel movement in 2 days or if you feel uncomfortable before that #14 take 1 baby aspirin (81 mg) twice a day for 30 days to thin your blood to help prevent blood clots. Normal [facility] Progress Note - Nurseon 06-2 Progress Note - Nurse Pre op phone call made, spoke with patient. Confirmed time of arrival for 0600 on 11/05/24. Reviewed instructions as given at PAT. Reminded to bring walker in. [Electronically Signed on: 11/02/2024 09:33 EDT] Garima Clements RN [Verified on: 11/02/2024 09:33 EDT] Garima Clements RN [facility] Coding Queryon 11-01-2024 Coding Query [id number] [facility] Coding Summaryon 10-30-2024 Coding Summary HTMLBase 64 LobvdxtqAIw4zZc+PGhlYWQ+PE1F UIKrY64soZChrG5qM5JVLLgZBgoj OPDRJNkDPkEtgnGrEX1aaBLfQHNs IC8+EF0tVWUpPuvhrSNrg4F4wCN6 F72tyk2uIOkfmVL0TBHgBiBwlljn p2vreTq4WXhvNnqxHtKp VEWtqP79HZI6xA05Kr47bUIfqPVi c4ziaVo9BsHqXONoYVP3nZqfHCuj k5QpTRKlZ10cwEEqb8Z6 TOEywZdafSJcRpZqrVB5nO2fMPig czsca2tahfxsYfy9ss06eUJui6X3 xWQ9C0VwhiH2OZSowLEt GwenvCYOxU4thvvjl0hsposzStLm VTRuSBx7MGk8NANizDiqJmJnER66 HZQ1UNFqtiSyZ3UmYCFv kNviPrJ5j8R6Du4FX8IPBjybI5YP TUFSWTwvdGQ+VN93zt36V2RlMequ Txb5ZHHgYAZ1uUG6wG0y DCReHVico3K1qRW4H5EszaUpzm9f o0ncENKeSYgrP40ysCRgk7O4GGHu rKX2TXQzwDtpQuWipZ45 Oyc+SVNuzElrd2FkNggnc7hrv7rw xAa6VzpsKPSgjkLprYatORR3a9Ns Ug8kZLSqaVU8sIB9uT1k RoOtNlQ1LDaoL155FxZeiOJhUlcx L15iF8YwaNV+OSGdQrt8LRBvjRgu BO5hX5UbOCGgkhkweSKi wZmdRN9eUJBtaopzAVUibK1sQUSk R2e2LtRtEvR7ZCpsI4ZyUQSywykp Qp22qW4cTnEvQkO8RNpq M3RytvA6WYDedRCpTTfgMTV3T70p z0Z3QEGgDLHjMXW3nUO6zP5ccZnv bjogbGVmdDsgdmVydGlj HYawPEsgZ011IIMguCojReBpAZgk ZyBEYXRlOiAgMDYvMjQvMjAyNTwv dGQ+OEIcGQH6eLirVPYh ePKfCPbdYf9edFuwaXatKW9lQBDb srrtKDWoiH4tDJBwyDJyfMubTQ5v PCBlszgkd994PwAsZRC2 BEExbCNcG5NjcE1sDvMxSXKkFHKr N2YldPHdMRssA775ORqeShA5LTRh gdMdX6KqXKLdpMnnEnA4 r6H0Bm6Dv5QqmpneV5CvmMQrNyGp CntjBUw4E0XlObzpeOY+QE04YNFo YI18SWc5IED1qUbeTNux XPHcB0LynW5aWvWrCRLmPAVxTrg+ PHRhYmxlIHdpZHRoPScxMDAlJyBz iPmnBJ7gPa6jLTNvVBTf mCaqjTLqCeHgr5czQIXjMKeaLA5w bSusL1QwhUP5EZBej2g9Ab48W82j L7BwuZF+ZWFjqIC7lIO6 nB2cEoEaHyP9TCgeI790TzEmbDNl Vugzt2fas0hbvJa6UxP6LYQhdfIi lOfyEQS9z6NfXn63L30x MHwkJEJiHJStJTWrENTgzFdpez3m vJ8oXu1+USVxmNS7mLC7oG1oYkXk DfT2CUgnK556SaKhsKZf Ddffr2xnz1driAb4WlUqSFAcziDa hEpxDVY2t4FaQe34R2ZnhQneg9Uo Rsf4pd35cKCta3E9uKH2 X7MmMYXdfthmyUYzpTqxTG9eDDJw hxesAWYvzK5hCRDaA3i1ZhQzJsD1 DDxiC8GelsG4QLOclRDt LLOboGDPqP1oubayi8dvwxkgGeUa NFKgARb1RXz7ZLAqnBmnDlYkBWK3 BpN9YXR0yXHwyJ7gfBxm blowdW7yFlq+QYF4fPAwsWYNTB7y OjwvdGQ+MTLoWYB7iGfbBEzfSRTj wM2hOYZhU2q0AhGuDuU8 VBxlG2WjrtX8LOEcyCGqEVSgtJRR dF8mixzwf0ksxyxfWhXzWZYlATd8 PAk0HOGhnNedJeOkJCY1 OzT8CLI9zMJozF2yoMcnwsxlcP9z Oyc+SnvnoOhtZCD1JZt9F3XnNsa9 JFPfiAlgUP2raXNeJMcz Ml0jeVcbuKgkYR2yMQGvehjnk512 GxScd3ykLEXwiEJoCTapAWW0S77a k9Y6BXLsEXHnCXS4bMI8 gK2haKolcjjssABxnOrnhiJjqUbt PSmcJOudL786FJPdeNaiLxInHHq5 C6WvBhg3INPazQsfIZ5g zLLjSMeeMq7vqBqasLcySF1yTTLc nozrx129TvZrl8lkKWMwiNRoUSvm YNP7I26wx0D1ANBaGMYg HRV5sAX0bI6jaGqykebfoWNteCcl qpTkoUvlIPuiUFsxE364FFAqlAwu JcAhlQe6A9OqMsf7WPQz cGqbHS4viSHeACitRa9yjRkbmJzm UB1qKCYenunjv774XtGzd1jxCAXs rJBqQVgwOTI5B76bh0H8 QWCkHXMwIJQ6iPA8lR1bhGgbxsza zJUryGjcenCogLfjNBuuDSgaZ401 IHRvcDsnPlBhdGllbnQg KMzcEZn0P7RsUgxogHZ+DF16CURy PS47qMTxyDZbs8hdoJp7OeGfOHRl YLE4fHlfUSslv1RcUSNe Z05vuFZtx7W3KBNtgPahmIFnJbHy zPX4lH4oXPkdjmkbn9leelshXapr n6pcjh60hK93A83mEDau NUCmRBLmFAKxTHCsmUteaw9phB2s Ii8+OFMvpXH4dCL9pN2bQJNnNkR1 SAapG884TrDojJLjQubj n1xcd3trvYw6PoH9UKMercQgnWkl TES6p2UuWt76Y46eZNieWLMtVLZz SXVlYGMsnNdudt6jlF7j Ii8+TUYrcYZ1pOM6zI0wLcThNwM5 EQggM661VtNlmZDjAsdyW92yQ5Wy dXA+KCJeWff6NWDunMyk PA5lgNVjDCcrHf8jSKM0UbVbToZw IGssC6IhRBScvoyivfhqtVR6QTNj AGChqP94Ws1djNfsRYUy jLRItI6chvtta1calnatWhZnODQj ZAp7NDl5JPNirBtzSqNzAIF2LhT3 XHA9sADsnE4wqMunxwaf mC7eE9PkPNItvoroTn02kG8rEsHh OtW9AKpgBwf+UkFJRlNOSURFUiwg HlAMBTDsNRGODOM3Z7Sz Uxc6XHKbvBmzPJ4cfDQuBRlfAl3q mWzbsZklUS5cAABvgqwlBMFwuI2h VFXklOHuuRujBU3qWRIx orbrs637RvTiVTD0YSOpsRPwG8So dA0aDeWjTJHiJVVjV1XyiAFmDXdo A328HVsqGiD2BRNvctNp D6HgJTVefSqzEjV9y4K2Rc4gHz0m UP7kFXWjXP04EL49eQMlj4L5mJS4 A6AvKLVhqgvguoznsGQ0 YWGbAPUddB75oWVdFKpcKz1rm7X4 d888KZGoYFAdgZ73Dh4rvUetEFNj zDDIgA0ugyqoq9plurhy BbTnPGTpFWn2QSb5CWSuzRekRbEn VIS1KzA2VJW0zNJxjD1rkTsjadaj lI3vPjs+NzEgWWVhcnM8 R8LoLjp2FYMsoTrvRT9hnMRwIEgw Tt5tbRensEpsZA5bRAImvxfgGQUi iY8kLVFjvQXkyFviEM0z OBTmdwtxj993OgDzTPK4TNCfiUXs H8JmxR0jCvZbNNVrINPpM8BinHRd JPyjB774MPbiThB9PMNt zyWqP2HpAAUlsDiqTvU2h4Z1Lj7Z YG3THHI5O3GwGss4MEUioJvoZF9p wNMpRAfrGt9eeUtapKcf HW0gLOMnglkiJYFwtG8oQOEupLCj aWveWM8fJLGgqmnwa841YiXjVHX0 TLLvgIFbS2NkyH0eRkDz VPGuNXYkL0IagXInYWogZ098NUbz GmP3FMRksxXoH8XjIASqmOjuYhU6 l0Q6Rs4QHSoerFO+PC90 vc33K8ArJxfsWrn7NXQjNKF7bQK9 cQ8hYNFsKGvhj7B9cYV9S4OxekRr pj1xf3jrIPFgYVhdZ93d aYPjq8C3HIArmBC0PSYojVxiBuMx vS70Cck+KRHzcBssz5WfAmwhr2ws k6ytvBa7EjTsWVTpoeGj wNnyOQK1w4BuRq70L64wBQrdWGUv UMVkWFGdJUCqtBpmop7nfQ0qGn4+ EFRziKT1gDZ4fX1fJkRq EnB4HHmdJ027OdOskGLoStbga3nj m4ppgZi7KjGrMQYdrmFnaCvwXDE1 u0YpTv32L7GgnEqkm0Da Hjq4ai61pZXjg0B9fIA5I1TqKMUi qsxjvDGskHcjIH0sSWJbbfgnEMBo gG0gXNMdY2w8AaVjOeF7 LClwD5IixhI2FRMvySCaESCcjRRW tJ6jjmwiq1jgtrpnIrOsFWLwLNd2 ULk5AWTwyRiaBzEsFMV7 StB8ZKW5dVEzcT5ljAnurcnycN0s Oyc+FIu6z9tjlBNpOC8jxWS2LT87 ZM04hCJae2V3tSX8D2Qj BRFpsgwhnlsbeJE0WIYeMHTehR27 Pi7imMywPa1bRDMnARF0XSXnmXDs D5BhiK4nCtZaFAFpUJZc G9WjsHCbBDrhQ619OHqfTuO7URTz slKwC4PxSHWtxZunNpT3y2K0Dc0C BQ88BP44NI20vJRto9V2 gNW4R7YpDGJrpkytmrcvuVH7NYVl KVUoiT58Es8jkRvnQx8wRDVsSVG1 ONBriEOgH0CmhH9iJtAf DHDeOREiU3MvaKZsFXggH432JJce AfL6XIHbhaZzA9ZcSYIyqFqmYaD9 n2V1Ln0IHh02EQ42RG73 lKImu0L2xWO7W3HqBTXrhtkbncae vPN8MMRhPTGhnN28Pz1fvRysLw2i UKQkTZS3LUUppDDiJ1Sm rQ8lNaOwIRJuUNIrX2PihEBaPAvh U810XSilLxG0YHMqecAyH2LdCOUs iSdtVzG2v1B5Iw0BNArf qgr5L3IvMxvulLD+WD59LCDlMR01 oSJzlKVtn5mivFz2KkGjVTGpRBE1 eZugKDdwr0LhHEWbT04y bGF (more content not included)... [facility] UA (CLEAN/CATCH) [facility] OPIC IF INDICATEon 10-29-2024 BILIRUBIN URINE Negative NEGATIVE [facility] BLOOD URINE Negative NEGATIVE [facility] Clarity (U) CLEAR CLEAR [facility] Color (U) YELLOW YELLOW [facility] GLUCOSE URINE UA Negative NEGATIVE mg/dL [facility] Interpretation and review of laboratory results Abnormal [facility] Ketones Ql (U) Negative NEGATIVE mg/dL [facility] Leukocyte esterase Test strip Ql (U) TRACE Abnormal NEGATIVE [facility] NITRITE URINE Negative NEGATIVE [facility] pH (U) 6.5 [pH] 5.0 - 9.0 [facility] PROTEIN URINE Negative NEG/TRACE mg/dL [facility] SPECIFIC GRAVITY URINE 1.010 1.005 - 1.025 [facility] URINE MICROSCOPIC INDICATED YES [facility] UROBILINOGEN URINE 0.2 EU/dL 0.2 - 1.0 EU/dL [facility] C Urineon 10-19-2024 C Urine Urine Culture [...] Tri/Sulf <=0.5/9.5 Verified Vanc S 1 Verified [facility] Comment on above: Performed By: #### 1 [id number], [id number], [id number] ####[facility] (DEFAULT)[address] [place] [address] Progress Note - Nurseon 10-07 Progress Note - Nurse chart reviewed per Dr Garvin, anesthesia, and no new orders received [Electronically Signed on: 10/19/2024 11:51 EDT] Griselda Son RN [Verified on: 10/19/2024 11:51 EDT] Griselda Son RN [facility] Progress Note - Nurse Call made to Dr. Jorge beckham office, spoke with Nella. Informed of urine results being faxed. States she received them and will address it. [Electronically Signed on: 10/19/2024 10:13 EDT] Garima Clements RN [Verified on: 10/19/2024 10:13 EDT] Garima Clements RN [facility] Progress Note - Nurse U/A results faxed to Aria's office ([place]) today. [Electronically Signed on: 10/19/2024 07:46 EDT] Sharon Anne RN [Verified on: 10/19/2024 07:46 EDT] Sharon Anne RN [facility] Provider Orderson 10-18-2024 Provider Orders [id number] [facility] .Auto Diff 1on 10-17-2024 Auto [place] % 8 % Normal 05-20 [facility] Comment on above: Performed By: #### 1 [id number], [id number], [id number] ####[facility] (DEFAULT)[address] [place] [address] Baso Abs# 0.1 x10 Normal 0.0-0.2 [facility] Comment on above: Performed By: #### 1 [id number], [id number], [id number] ####[facility] (DEFAULT)[address] [place] [address] Basophils/100 WBC (Bld) 1.3 % Normal 0.2-2.0 [facility] Comment on above: Performed By: #### 1 [id number], [id number], [id number] ####[facility] (DEFAULT)[address] [place] [address] 32499 Eos Abs# 0.2 x10 Normal 0.0-0.4 [facility] Comment on above: Performed By: #### 1 [id number], [id number], [id number] ####[facility] (DEFAULT)[address] [place] [address] 53437 Eosinophils/100 WBC (Bld) 2.7 % Normal 0.9-4.0 [facility] Comment on above: Performed By: #### 1 [id number], 93296850, [id number] ####[facility] (DEFAULT)[address] [place] [address] Lymph Abs# 1.8 x10 Normal 1.3-2.9 [facility] Comment on above: Performed By: #### 1 [id number], [id number], [id number] ####[facility] (DEFAULT)[address] [place] [address] Lymphocytes/100 WBC (Bld) 20 % Normal 14-48 [facility] Comment on above: Performed By: #### 1 [id number], [id number], [id number] ####[facility] (DEFAULT)[address] [place] [address] [place] Abs# 0.7 x10 Normal 0.0-0.8 [facility] Comment on above: Performed By: #### 1 [id number], 79491559, [id number] ####[facility] (DEFAULT)[address] [place] [address] 47511 Neut Abs# 5.8 x10 Normal 1.5-9.2 [facility] Comment on above: Performed By: #### 1 [id number], [id number], 5775261 ####[facility] (DEFAULT)[address] [place] [address] Neutrophils/100 WBC (Bld) 68 % Normal 44-88 [facility] Comment on above: Performed By: #### 1 [id number], [id number], 3004874 ####[facility] (DEFAULT)[address] [place] [address] BMP Standardon 06-11-2025 eGFR Non AA 49 mL/min/1.73m2 Invalid Interpretation Code [facility] Comment on above: Performed By: #### 1 [id number], [id number], [id number] ####[facility] (DEFAULT)[address] [place] [address] 88150 eGFR AA 60 mL/min/1.73m2 Invalid Interpretation Code [facility] Comment on above: Performed By: #### 1 [id number], [id number], 4484796 ####[facility] (DEFAULT)[address] [place] [address] 83091 Anion gap [Moles/Vol] 13.0 mmol/L Normal 5.0-19.0 [facility] Comment on above: Performed By: #### 1 [id number], [id number], [id number] ####[facility] (DEFAULT)[address] [place] [address] 92103 Calcium [Mass/Vol] 9.5 mg/dL Normal 8.9-10.3 [facility] Comment on above: Performed By: #### 1 [id number], 30460073, 3567857 ####[facility] (DEFAULT)[address] [place] [address] 08893 Chloride [Moles/Vol] 98 mmol/L Low 101-111 [facility] Comment on above: Performed By: #### 1 [id number], 80681045, 8338756 ####[facility] (DEFAULT)[address] [place] [address] 97423 CO2 [Moles/Vol] 27 mmol/L Normal 21-32 [facility] Comment on above: Performed By: #### 1 [id number], [id number], 7646763 ####[facility] (DEFAULT)[address] [place] [address] 41837 Creatinine [Mass/Vol] 1.09 mg/dL Normal 0.60-1.30 [facility] Comment on above: Performed By: #### 1 [id number], 23767524, 4802577 ####[facility] (DEFAULT)[address] [place] [address] 83973 Glucose [Mass/Vol] 112.0 mg/dL Normal 74.0-118.0 [facility] Comment on above: Performed By: #### 1 [id number], 48255802, 6368155 ####[facility] (DEFAULT)[address] [place] [address] 06805 Osmolality 273 mOsm/L Invalid Interpretation Code [facility] Comment on above: Performed By: #### 1 [id number], 32045030, 7313892 ####[facility] (DEFAULT)[address] [place] [address] 23159 Potassium [Moles/Vol] 4.0 mmol/L Normal 3.6-5.1 [facility] Comment on above: Performed By: #### 1 [id number], 02715166, 3802900 ####[facility] (DEFAULT)[address] [place] [address] 22092 Sodium [Moles/Vol] 134.0 mmol/L Low 136.0-144 . 0 [facility] Comment on above: Performed By: #### 1 [id number], 14454613, 7108348 ####[facility] (DEFAULT)[address] [place] [address] 95424 Urea nitrogen [Mass/Vol] 23 mg/dL Normal 8-26 [facility] Comment on above: Performed By: #### 1 [id number], 24926206, 9522665 ####[facility] (DEFAULT)[address] [place] [address] 64258 Urea nitrogen/Creatinine [Mass ratio] 21.1 mg/mg High 4.6-16.2 [facility] Comment on above: Performed By: #### 1 [id number], 69956499, 4764078 ####[facility] (DEFAULT)[address] [place] [address] 70188 CBC w/ Auto Diffon 5 Erythrocyte distribution width (RBC) [Ratio] 13.7 % Normal 11.5-15.0 [facility] Comment on above: Performed By: #### 1 [id number], 78254904, 7009050 ####[facility] (DEFAULT)[address] [place] [address] 84893 Hematocrit (Bld) [Volume fraction] 37.6 % Normal 33.7-40.4 [facility] Comment on above: Performed By: #### 1 [id number], 09581579, 0534384 ####[facility] (DEFAULT)[address] [place] [address] 93719 Hemoglobin (Bld) [Mass/Vol] 12.8 g/dL Normal 11.3-15.9 [facility] Comment on above: Performed By: #### 1 [id number], 23667131, 0475912 ####[facility] (DEFAULT)[address] [place] [address] Man Diff? Auto Invalid Interpretation Code [facility] Comment on above: Performed By: #### 1 [id number], 69184107, 8548017 ####[facility] (DEFAULT)[address] [place] [address] 94092 MCH (RBC) [Entitic mass] 30 pg Normal 24-34 [facility] Comment on above: Performed By: #### 1 [id number], 68839385, 1339661 ####[facility] (DEFAULT)[address] [place] [address] 14907 MCHC (RBC) [Mass/Vol] 34 g/dL Normal 26-37 [facility] Comment on above: Performed By: #### 1 [id number], 20439696, 6832730 ####[facility] (DEFAULT)[address] [place] [address] 16227 MCV (RBC) [Entitic vol] 89 fL Normal 81-100 [facility] Comment on above: Performed By: #### 1 [id number], 76686150, 9816367 ####[facility] (DEFAULT)[address] [place] [address] 10694 Platelet 373 x10 Normal 138-427 [facility] Comment on above: Performed By: #### 1 [id number], 01209194, 1758535 ####[facility] (DEFAULT)[address] [place] [address] 28335 Platelet mean volume (Bld) [Entitic vol] 7.0 fL Normal 6.3-10.2 [facility] Comment on above: Performed By: #### 1 [id number], 77696278, 6061294 ####[facility] (DEFAULT)[address] [place] [address] RBC 4.21 x10 Normal 3.70-5.30 [facility] Comment on above: Performed By: #### 1 [id number], 39760515, 8228475 ####[facility] (DEFAULT)[address] [place] [address] WBC 8.6 x10 Normal 3.5-10.5 [facility] Comment on above: Performed By: #### 1 [id number], 50528125, 2453531 ####[facility] (DEFAULT)[address] [place] [address] UA Mfuni4af 10-17-2024 UA Bacteria None [facility] Comment on above: Order Comment: Urina lysis Microscopic order added on by [employer] Rules system. Performed By: #### 1 [id number], [id number], 90021862 ####[facility] (DEFAULT)[address] [place] [address] 79752 UA RBC 0-2 [facility] Comment on above: Order Comment: Urina lysis Microscopic order added on by [employer] system. Performed By: #### 1 [id number], 8837781, [id number] ####[facility] (DEFAULT)[address] [place] [address] 43329 UA Squam Epi Few Normal [facility] Comment on above: Order Comment: Urina lysis Microscopic order added on by [employer] Rules system. Performed By: #### 1 [id number], [id number], 91469227 ####[facility] (DEFAULT)[address] [place] [address] 41474 UA WBC 3-5 [facility] Comment on above: Order Comment: Urina lysis Microscopic order added on by [employer] system. Performed By: #### 1 [id number], 6520503, [id number] ####[facility] (DEFAULT)[address] [place] [address] 61152 UA w Culture if Ind Standard on 10-17-2024 Breakpoint UA [facility] Comment on above: Performed By: #### 1 [id number], 8758950, [id number] ####[facility] (DEFAULT)[address] [place] [address] Color (U) Yellow Normal [facility] Comment on above: Performed By: #### 1 [id number], [id number], 27490253 ####[facility] (DEFAULT)[address] [place] [address] Culture? Indicated Invalid Interpretation Code [facility] Comment on above: Result Comment: Resu lt created by rule GL_MAGR_ADD_UA_CULT Result created by rule GL_MAGR_ADD_UA_CULT Result created by rule GL_MAGR_ADD_UA_CULT1 Result created by rule GL_MAGR_ADD_UA_CULT Performed By: #### 1 [id number], [id number], [id number] ####[facility] (DEFAULT)[address] [place] [address] Glucose (U) [Mass/Vol] Negative [facility] Comment on above: Performed By: #### 1 [id number], [id number], 88728741 ####[facility] (DEFAULT)[address] [place] [address] Ketones Ql (U) Negative [facility] Comment on above: Performed By: #### 1 [id number], 8245573, 46431656 ####[facility] (DEFAULT)[address] [place] [address] 78687 Micro? Indicated Invalid Interpretation Code [facility] Comment on above: Result Comment: Resu lt created by rule GL_MAGR_ADD_UA_MICRO Performed By: #### 1 [id number], [id number], 69392532 ####[facility] (DEFAULT)[address] [place] [address] UA Bilirubin Negative [facility] Comment on above: Performed By: #### 1 [id number], 2078992, 50974024 ####[facility] (DEFAULT)[address] [place], [place] [address] UA Blood Negative Normal NEGATIVE [facility] Comment on above: Performed By: #### 1 [id number], 2447075, 64883163 ####[facility] (DEFAULT)[address] [place] [address] UA Clarity CLEAR Normal CLEAR [facility] Comment on above: Performed By: #### 1 [id number], 5840544, 71308867 ####[facility] (DEFAULT)[address] [place] [address] 99798 UA Leuk Est SMALL Abnormal NEGATIVE [facility] Comment on above: Performed By: #### 1 [id number], 4390740, 54254308 ####[facility] (DEFAULT)[address] [place] [address] UA Nitrite Negative Normal NEGATIVE [facility] Comment on above: Performed By: #### 1 [id number], 3483469, 66654998 ####[facility] (DEFAULT)[address] [place] [address] 04474 UA pH 7.0 Normal 5-8 [facility] Comment on above: Performed By: #### 1 [id number], 9778236, 66026500 ####[facility] (DEFAULT)[address] [place] [address] UA Protein Negative Normal NEGATIVE [facility] Comment on above: Performed By: #### 1 [id number], 6313546, 49787789 ####[facility] (DEFAULT)[address] [place] [address] 76722 UA Spec Grav 1.010 Normal 1.001-1.[address] [place] [address] Comment on above: Performed By: #### 1 [id number], 0995299, 87555313 ####[facility] (DEFAULT)[address] [place] [address] 30772 UA Urobilinogen 0.2 mg/dL Normal 0.2-1.0 [facility] Comment on above: Performed By: #### 1 [id number], 4924305, 77986392 ####[facility] (DEFAULT)[address] [place] [address] 65764 Urine Source Clean Catch Normal [facility] Comment on above: Performed By: #### 1 [id number], [id number], 53354957 ####[facility] (DEFAULT)[address] [place] [address] Appearance of UrineOrdered B y: Rush Hodgsonoliva on 07-16-2024 Appearance (U) Urine appearance [facility] Bacteria [Presence] in Urine by AutomatedOrdered By: Rush Aria on 07-16-2024 Bacteria Auto Ql (U) Bacteria [Presence] in Urine by Automated None Seen [facility] Basic Metabolic Panelon 07-07 Anion gap [Moles/Vol] 8.1 mmol/L Normal 6.0-15.0 [facility] Comment on above: Performed By: #### B MP #### [place] [address] [place] Calcium [Mass/Vol] 9.4 mg/dL Normal 8.6-10.3 [facility] Comment on above: Result Comment: PERF ORMED BY: [place] [address] PATHOLOGIST COMPUTED TOMOGRAPHY TECHNOLOGIST YUSEF MEJIA M.D. Performed By: #### B MP #### [address] Chloride [Moles/Vol] 102 mmol/L Normal 98-107 [facility] Comment on above: Performed By: #### B MP #### [place] [address] [place] CO2 [Moles/Vol] 29.5 mmol/L Normal 21.0-31.0 [facility] Comment on above: Performed By: #### B MP #### [place] [address] [place] Creatinine [Mass/Vol] 0.95 mg/dL Normal 0.60-1.20 [facility] Comment on above: Performed By: #### B MP #### [place] [address] [place] GFR/1.73 sq M.predicted MDRD (S/P/Bld) [Vol rate/Area] mL/min/{1.73_m2} Normal [facility] Comment on above: Performed By: #### B MP #### [facility] [address] Glucose [Mass/Vol] 121 mg/dL High 70-100 [facility] Comment on above: Result Comment: [place] Glucose Reference Range is dependent on time and content of last meal. Glucose of more than 200 mg/dL in a nonstressed, ambulatory subject supports the diagnosis of Diabetes Mellitus. ADA recommended reference range Performed By: #### B MP #### [facility] [address] Potassium [Moles/Vol] 3.6 mmol/L Normal 3.5-5.1 [facility] Comment on above: Performed By: #### B MP #### [address] Sodium [Moles/Vol] 136 mmol/L Normal 136-145 [facility] Comment on above: Performed By: #### B MP #### [address] Urea nitrogen [Mass/Vol] 19 mg/dL Normal 7-25 [facility] Comment on above: Performed By: #### B MP #### [place] [address] [place] Basophils Auto (Bld) [#/Vol] Ordered By: Rush Knapp on 07-16-2024 Basophils (Bld) [#/Vol] Automated basophil count 0.0-0.2 [facility] Basophils/100 WBC Auto (Bld) Ordered By: Rush Knapp on 07-16-2024 Basophils/100 WBC (Bld) Automated basophil % . [facility] Bilirubin Test strip Ql (U)O rdered By: Rush Knapp on 07-16-2024 Bilirubin Ql (U) Bilirubin.total [Pre sence] in Urine by Test strip Negative [facility] Calcium [Mass/volume] in Ser um or PlasmaOrdered By: Rush Knapp on 07-16-2024 Calcium [Mass/Vol] Calcium [Mass/volume ] in Serum or Plasma 8.6-10.3 [facility] Carbon dioxide, total [Moles /volume] in Serum or PlasmaOrdered By: Rush Knapp on 07-16-2024 CO2 [Moles/Vol] Carbon dioxide, tota l [Moles/volume] in Serum or Plasma 21.0-31.0 [facility] Chloride [Moles/volume] in S madhav or PlasmaOrdered By: Rush Knapp on 07-16-2024 Chloride [Moles/Vol] Chloride [Moles/vol ume] in Serum or Plasma 98-107 [facility] Color Auto (U)Ordered By: [employer] michael Knapp on 07-16-2024 Color (U) Color of Urine by Auto Yellow [facility] Complete Blood Count Auto Di ffon 07-16-2024 Basophils (Bld) [#/Vol] 0.1 10*3/uL Normal 0.0-0.2 [facility] Comment on above: Result Comment: PERF ORMED BY: [place] [address] PATHOLOGIST COMPUTED TOMOGRAPHY TECHNOLOGIST YUSEF MEJIA M.D. Performed By: #### C BC #### [address] Basophils/100 WBC (Bld) 1.5 % Normal . [facility] Comment on above: Performed By: #### C BC #### [place] [address] [place] Eosinophils (Bld) [#/Vol] 0.2 10*3/uL Normal 0.0-0.45 [facility] Comment on above: Performed By: #### C BC #### [place] [address] [place] Eosinophils/100 WBC (Bld) 3.3 % Normal . [facility] Comment on above: Performed By: #### C BC #### [address] Erythrocyte distribution width (RBC) [Ratio] 13.3 % Normal 11.9-15.3 [facility] Comment on above: Performed By: #### C BC #### [address] Hematocrit (Bld) [Volume fraction] 34.5 % Normal 34.0-46.4 [facility] Comment on above: Performed By: #### C BC #### [address] Hemoglobin (Bld) [Mass/Vol] 11.7 g/dL Low 11.8-15.4 [facility] Comment on above: Performed By: #### C BC #### [address] Lymphocytes (Bld) [#/Vol] 1.3 10*3/uL Normal 1.00-4.8 [facility] Comment on above: Performed By: #### C BC #### [address] Lymphocytes/100 WBC (Bld) 20.5 % Normal . [facility] Comment on above: Performed By: #### C BC #### [address] MCH (RBC) [Entitic mass] 30.3 pg Normal 24.7-34.3 [facility] Comment on above: Performed By: #### C BC #### [address] MCV (RBC) [Entitic vol] 89.5 fL Normal 80-100 [facility] Comment on above: Performed By: #### C BC #### [address] Mean Corpuscular HGB Conc 33.8 g/dL Normal 32.0-35.0 [facility] Comment on above: Performed By: #### C BC #### [address] Monocytes (Bld) [#/Vol] 0.6 10*3/uL Normal 0.0-0.8 [facility] Comment on above: Performed By: #### C BC #### [address] [address] [place] Monocytes/100 WBC (Bld) 10.1 % Normal . [facility] Comment on above: Performed By: #### C BC #### [address] Neutrophils (Bld) [#/Vol] 4.1 10*3/uL Normal 1.8-7.7 [facility] Comment on above: Performed By: #### C BC #### [address] Neutrophils/100 WBC (Bld) 64.6 % Normal . [facility] Comment on above: Performed By: #### C BC #### [address] NRBC% 0.1 /100{WBC} Normal 0-0.5 [facility] Comment on above: Performed By: #### C BC #### [address] Platelet mean volume (Bld) [Entitic vol] 7.3 fL Normal 6.3-10.7 [facility] Comment on above: Performed By: #### C BC #### [place] [address] [place] Platelets (Bld) [#/Vol] 338 10*3/uL Normal 150-450 [facility] Comment on above: Performed By: #### C BC #### [place] [address] [place] RBC (Bld) [#/Vol] 3.85 10*6/uL Normal 3.60-5.00 [facility] Comment on above: Performed By: #### C BC #### [address] WBC (Bld) [#/Vol] 6.4 10*3/uL Normal 3.8-11.6 [facility] Comment on above: Performed By: #### C BC #### [address] Creatinine [Mass/volume] in Serum or PlasmaOrdered By: Rush Knapp on 07-16-2024 Creatinine [Mass/Vol] Creatinine [Mass/v olume] in Serum or Plasma 0.60-1.20 [facility] Dipstick and Microscopicon 0 07-16-2024 Appearance (U) Clear Normal Clear [facility] Comment on above: Order Comment: Comme nt do urine C S if indicated by + UA Name Collection Type:: Clean-Voided Midstream Performed By: #### A DDONUAPLUS, CUU #### [facility] [address] Bacteria,Urine None Seen Normal None Seen [facility] Comment on above: Order Comment: Comme nt do urine C S if indicated by + UA Name Collection Type:: Clean-Voided Midstream Performed By: #### A DDONUAPLUS, CUU #### [facility] [address] [place] [address] Bilirubin,Urine Negative Normal Negative [facility] Comment on above: Order Comment: Comme nt do urine C S if indicated by + UA Name Collection Type:: Clean-Voided Midstream Performed By: #### A DDONUAPLUS, CUU #### [address] Color (U) Yellow Normal Yellow [facility] Comment on above: Order Comment: Comme nt do urine C S if indicated by + UA Name Collection Type:: Clean-Voided Midstream Performed By: #### A DDONUAPLUS, CUU #### [address] Glucose Ql (U) Normal Normal Normal The Formerly [facility] Comment on above: Order Comment: Comme nt do urine C S if indicated by + UA Name Collection Type:: Clean-Voided Midstream Performed By: #### A DDONUAPLUS, CUU #### [place] [address] [place] Hyaline Casts,Urine 0-8 Normal 0-8 [facility] Comment on above: Order Comment: Comme nt do urine C S if indicated by + UA Name Collection Type:: Clean-Voided Midstream Performed By: #### A DDONUAPLUS, CUU #### [address] Ketones Ql (U) Negative Normal Negative [facility] Comment on above: Order Comment: Comme nt do urine C S if indicated by + UA Name Collection Type:: Clean-Voided Midstream Performed By: #### A DDONUAPLUS, CUU #### [address] Leukocyte esterase Test strip Ql (U) 2+ High Negative [facility] Comment on above: Order Comment: Comme nt do urine C S if indicated by + UA Name Collection Type:: Clean-Voided Midstream Performed By: #### A DDONUAPLUS, CUU #### [place] [address] [place] Mucus,Urine Rare Normal [facility] Comment on above: Order Comment: Comme nt do urine C S if indicated by + UA Name Collection Type:: Clean-Voided Midstream Result Comment: PERF ORMED BY: [place] [address] PATHOLOGIST COMPUTED TOMOGRAPHY TECHNOLOGIST YUSEF MEJIA M.D. Performed By: #### A DDONUAPLUS, CUU #### [place] [address] [place] Nitrite,Urine Negative Normal Negative [facility] Comment on above: Order Comment: Comme nt do urine C S if indicated by + UA Name Collection Type:: Clean-Voided Midstream Performed By: #### A DDONUAPLUS, CUU #### [place] [address] [place] Occult Blood,Urine Negative Normal Negative [facility] Comment on above: Order Comment: Comme nt do urine C S if indicated by + UA Name Collection Type:: Clean-Voided Midstream Result Comment: PERF ORMED BY: [place] [address] PATHOLOGIST COMPUTED TOMOGRAPHY TECHNOLOGIST YUSEF MEJIA M.D. Performed By: #### A DDONUAPLUS, CUU #### [address] pH (U) 6.5 [pH] Normal 5.0-9.0 [facility] Comment on above: Order Comment: Comme nt do urine C S if indicated by + UA Name Collection Type:: Clean-Voided Midstream Performed By: #### A DDONUAPLUS, CUU #### [address] Protein,Urine Trace High Negative [facility] Comment on above: Order Comment: Comme nt do urine C S if indicated by + UA Name Collection Type:: Clean-Voided Midstream Performed By: #### A DDONUAPLUS, CUU #### [address] RBC,Urine 1-2 Normal 0-4 [facility] Comment on above: Order Comment: Comme nt do urine C S if indicated by + UA Name Collection Type:: Clean-Voided Midstream Performed By: #### A DDONUAPLUS, CUU #### [address] Specificy [place],Urine 1.024 Normal 1.001-1.03 0 [facility] Comment on above: Order Comment: Comme nt do urine C S if indicated by + UA Name Collection Type:: Clean-Voided Midstream Performed By: #### A DDONUAPLUS, CUU #### [address] Squamous Epithelial Cell,Urine 5-9 High 0-2 [facility] Comment on above: Order Comment: Comme nt do urine C S if indicated by + UA Name Collection Type:: Clean-Voided Midstream Performed By: #### A DDONUAPLUS, CUU #### [address] Urobilinogen,Urine Normal Normal Normal [facility] Comment on above: Order Comment: Comme nt do urine C S if indicated by + UA Name Collection Type:: Clean-Voided Midstream Performed By: #### A DDONUAPLUS, CUU #### [facility] [address] [place] [address] WBC,Urine 10-19 High 0-4 [facility] Comment on above: Order Comment: Comme nt do urine C S if indicated by + UA Name Collection Type:: Clean-Voided Midstream Performed By: #### A DDONUACHASE, CUU #### [facility] [address] [place] [address] ECG 12 lead ECGon 07-16-2024 ECG 12 lead ECG [facility] [place] [address] Electrocardiograph Report Signed Patient: Mary Goode MR#: [id number] : 1950 Acct:[id number] Age/Sex: 73 / F ADM Date: 07/16/24 Loc: Room: Type: [facility] Attending Dr: Rush Knapp Jr, DO Ordering [...] change was found Confirmed by Rush Morel ([id number]) on 07/16/2024 4:14:04 PM Referred By: Electronically Signed By: Rush Morel Transcribed By: MUS Signed By Rush Morel MD 07/16/24 1614 Normal [facility] Eosinophils Auto (Bld) [#/Vo l]Ordered By: Rush Knapp on 07-16-2024 Eosinophils (Bld) [#/Vol] Automated eosinophil count 0.0-0.45 [facility] Eosinophils/100 WBC Auto (Bl d)Ordered By: Rush Knapp on 07-16-2024 Eosinophils/100 WBC (Bld) Automated eosinophil % . [facility] Epithelial cells.squamous [# /area] in Urine sediment by Automated countOrdered By: Rush Knapp on 07-16-2024 Epithelial cells.squamous Auto (Urine sed) [#/Area] Epithelial cells.squamous [#/area] in Urine sediment by Automated count High 0-2 [facility] Erythrocyte distribution wid th Auto (RBC) [Ratio]Ordered By: Rush Knapp on 07-16-2024 Erythrocyte distribution width (RBC) [Ratio] Erythrocyte distribution width [Ratio] by Automated count 11.9-15.3 [facility] Erythrocytes [#/area] in Uri ne sediment by Automated countOrdered By: Rush Knapp on 07-16-2024 RBC Auto (Urine sed) [#/Area] Erythrocytes [#/area] in Urine sediment by Automated count 0-4 [facility] Glucose [Mass/volume] in Ser um or PlasmaOrdered By: Rush Knapp on 07-16-2024 Glucose [Mass/Vol] Glucose [Mass/volume ] in Serum or Plasma High 70-100 [facility] Comment on above: ADA recommended refe [...] [Mass/volume] in Urine by Test strip Normal [facility] Hematocrit Auto (Bld) [Volum e fraction]Ordered By: Rush Knapp on 07-16-2024 Hematocrit (Bld) [Volume fraction] Hematocrit [Volume Fraction] of Blood by Automated count 34.0-46.4 [facility] Hemoglobin Test strip Ql (U) Ordered By: Rush Knapp on 07-16-2024 Hemoglobin Ql (U) Hemoglobin [Presence ] in Urine by Test strip Negative [facility] Hemoglobin [Mass/volume] in BloodOrdered By: Rush Knapp on 07-16-2024 Hemoglobin (Bld) [Mass/Vol] Hemoglobin [Mass/volume] in Blood Low 11.8-15.4 [facility] Hyaline casts [#/area] in Ur ine sediment by Automated countOrdered By: Rush Knapp on 03-10-2025 Hyaline casts Auto (Urine sed) [#/Area] Hyaline casts [#/area] in Urine sediment by Automated count 0-8 [facility] Ketones Test strip Ql (U)Ord ered By: Rush Knapp on 07-16-2024 Ketones Ql (U) Ketones [Presence] i n Urine by Test strip Negative [facility] Leukocyte esterase [Presence ] in Urine by Test stripOrdered By: Rush Knapp on 07-16-2024 Leukocyte esterase Test strip Ql (U) Leukocyte esterase [Presence] in Urine by Test strip High Negative [facility] Leukocytes [#/area] in Urine sediment by Automated countOrdered By: Rush Knapp on 07-16-2024 WBC Auto (Urine sed) [#/Area] Leukocytes [#/area] in Urine sediment by Automated count High 0-4 [facility] Leukocytes [#/volume] correc mary for nucleated erythrocytes in Blood by Automated counOrdered By: Rush Knapp on 07-16-2024 WBC corrected for nucl RBC Auto (Bld) [#/Vol] Leukocytes [#/volume] corrected for nucleated erythrocytes in Blood by Automated coun 3.8-11.6 [facility] Lymphocytes Auto (Bld) [#/Vo l]Ordered By: Rush Knapp on 07-16-2024 Lymphocytes (Bld) [#/Vol] Lymphocytes [#/volume] in Blood by Automated count 1.00-4.8 [facility] Lymphocytes/100 WBC Auto (Bl d)Ordered By: Rush Knapp on 07-16-2024 Lymphocytes/100 WBC (Bld) Lymphocytes/100 leukocytes in Blood by Automated count . [facility] MCH Auto (RBC) [Entitic mass ]Ordered By: Rush Knapp on 07-16-2024 MCH (RBC) [Entitic mass] MCH [Entitic mass] by Automated count 24.7-34.3 [facility] MCHC Auto (RBC) [Mass/Vol]Or dered By: Rush Knapp on 07-16-2024 MCHC (RBC) [Mass/Vol] MCHC [Mass/volume] by Automated count 32.0-35.0 [facility] MCV Auto (RBC) [Entitic vol] Ordered By: Rush Knapp on 07-16-2024 MCV (RBC) [Entitic vol] MCV [Entitic volume] by Automated count 80-100 [facility] Monocytes Auto (Bld) [#/Vol] Ordered By: Rush Knapp on 07-16-2024 Monocytes (Bld) [#/Vol] Automated blood monocyte count 0.0-0.8 [facility] Monocytes/100 WBC Auto (Bld) Ordered By: Rush Knapp on 07-16-2024 Monocytes/100 WBC (Bld) Automated monocyte % . [facility] Mucus [Presence] in Urine by AutomatedOrdered By: Rush Knapp on 07-16-2024 Mucus Auto Ql (U) Mucus [Presence] in Urine by Automated [facility] Neutrophils Auto (Bld) [#/Vo l]Ordered By: Rush Knapp on 07-16-2024 Neutrophils (Bld) [#/Vol] Neutrophils [#/volume] in Blood by Automated count 1.8-7.7 [facility] Neutrophils/100 WBC Auto (Bl d)Ordered By: Rush Knapp on 07-16-2024 Neutrophils/100 WBC (Bld) Automated neutrophil % . [facility] Nitrite Test strip Ql (U)Ord ered By: Rush Knapp on 07-16-2024 Nitrite Ql (U) Nitrite [Presence] i n Urine by Test strip Negative [facility] No Panel InformationOrdered By: Rush Knapp on 07-16-2024 Estimated GFR (CKD-EPI) > 60.0 mL/Min [facility] Creatinine Clearance (Chem N/A [facility] Nucleated erythrocytes [Pres ence] in Blood by Automated countOrdered By: Rush Knapp on 07-16-2024 Nucleated RBC Auto Ql (Bld) Nucleated erythrocytes [Presence] in Blood by Automated count 0-0.5 [facility] Platelet mean volume Auto (B ld) [Entitic vol]Ordered By: Rush Knapp on 07-16-2024 Platelet mean volume (Bld) [Entitic vol] Platelet mean volume [Entitic volume] in Blood by Automated count 6.3-10.7 [facility] Platelets Auto (Bld) [#/Vol] Ordered By: Rush Knapp on 07-16-2024 Platelets (Bld) [#/Vol] Platelets [#/volume] in Blood by Automated count 150-450 [facility] Potassium [Moles/volume] in Serum or PlasmaOrdered By: Rush Knapp on 07-16-2024 Potassium [Moles/Vol] Potassium [Moles/v olume] in Serum or Plasma 3.5-5.1 [facility] Protein Test strip (U) [Mass /Vol]Ordered By: Rush Knapp on 07-16-2024 Protein (U) [Mass/Vol] Protein [Mass/volume] in Urine by Test strip High Negative [facility] RBC Auto (Bld) [#/Vol]Ordere d By: Rush Knapp on 07-16-2024 RBC (Bld) [#/Vol] Erythrocytes [#/volu me] in Blood by Automated count 3.60-5.00 [facility] Serum or plasma anion gap de terminationOrdered By: Rush Knapp on 07-16-2024 Anion gap [Moles/Vol] Serum or plasma an ion gap determination 6.0-15.0 [facility] Sodium [Moles/volume] in Ser um or PlasmaOrdered By: Rush Knapp on 07-16-2024 Sodium [Moles/Vol] Sodium [Moles/volume ] in Serum or Plasma 136-145 [facility] Specific gravity Test strip (U) [Rel density]Ordered By: Rush Knapp on 07-16-2024 Specific gravity (U) [Rel density] Specific gravity of Urine by Test strip 1.001-1.03 0 [facility] Urea nitrogen [Mass/volume] in Serum or PlasmaOrdered By: Rush Knapp on 07-16-2024 Urea nitrogen [Mass/Vol] Urea nitrogen [Mass/volume] in Serum or Plasma 7-25 [facility] Urine Cultureon 07-16-2024 Bacteria identified Cx Nom (U) No Growth 2 Days PERFORMED BY: [facility] [address] [place] [address] PATHOLOGIST COMPUTED TOMOGRAPHY TECHNOLOGIST YUSEF MEJIA M.D. Normal [facility] Comment on above: Performed By: #### A DDONUAPLUS, CUU #### [facility] [address] Urine cultureOrdered By: Santiago Knapp on 07-16-2024 Bacteria identified Cx Nom (U) Urine culture [facility] Urobilinogen Test strip (U) [Mass/Vol]Ordered By: Rush Knapp on 07-16-2024 Urobilinogen (U) [Mass/Vol] Urobilinogen [Mass/volume] in Urine by Test strip Normal [facility] WBC Auto (Bld) [#/Vol]Ordere d By: Rush Knapp on 07-16-2024 WBC (Bld) [#/Vol] Leukocytes [#/volume ] in Blood by Automated count 3.8-11.6 [facility] X-ray reportOrdered By: Satinder Chen on 07-16-2024 [place] [address] XRay Report Signed Patient: Mary Goode MR#: [id number] : 1950 Acct:[id number] Age/Sex: 73 / F ADM Date: 5 Loc: ICXD Room: Type: [facility] Attending Dr: Rush Knapp Jr, DO Copies to: Rush Knapp Jr, DO~ [...] Adan Chen M.D.07/16/2024 4:21 PM Dictation Location: [place] [address] Transcribed By: [facility] 07/16/24 162 Dictated By: Adan Chen DO 07/16/24 1619 Signed By: 07/16/24 162 [facility] XR bonelength lower extremit yon 07-16-2024 XR bonelength lower extremity [address] [place] [address] XRay Report Signed Patient: Mary Goode MR#: [id number] : 1950 Acct:[id number] Age/Sex: 73 / F ADM Date: 07/16/24 Loc: ICXD Room: Type: [facility] Attending Dr: Rush Knapp Jr, DO Copies to: Rush Knapp Jr, DO [...] Adan Chen M.D.07/16/2024 4:21 PM Dictation Location: [place] [address] Transcribed By: [facility] 07/16/24 1621 Dictated By: Adan Chen DO 07/16/24 1619 Signed By: 07/16/24 1621 Normal [facility] pH Test strip (U)Ordered By: Rush Knapp on 07-16-2024 pH (U) pH of Urine by Test strip 5.0-9.0 [facility] Erythrocyte distribution wid th Auto (RBC) [Ratio]on 06-27-2024 Erythrocyte distribution width (RBC) [Ratio] Erythrocyte distribution width [Ratio] by Automated count 11.0-15.0 [facility] Estimated glomerular filtrat ion rate (GFR) non- Americanon 06-27-2024 GFR/1.73 sq M.predicted among non-blacks MDRD (S/P/Bld) [Vol rate/Area] Estimated glomerular filtration rate (GFR) non- Low >=60 mL/min/1.7 3m 2 [facility] Hematocrit Auto (Bld) [Volum e fraction]on 06-27-2024 Hematocrit (Bld) [Volume fraction] Hematocrit [Volume Fraction] of Blood by Automated count 36.0-48.0 [facility] Hemoglobin [Mass/volume] in Bloodon 06-27-2024 Hemoglobin (Bld) [Mass/Vol] Hemoglobin [Mass/volume] in Blood 12.0-16.0 [facility] Iron binding capacity [Mass/ volume] in Serum or Plasmaon 06-27-2024 Iron binding capacity [Mass/Vol] Iron binding capacity [Mass/volume] in Serum or Plasma 250.0-450. 0 [facility] Iron saturation [Mass Fracti on] in Serum or Plasmaon 06-27-2024 Iron saturation [Mass fraction] Iron saturation [Mass Fraction] in Serum or Plasma [facility] Laboratory - Chemistry and C hemistry - challengeon 06-27-2024 Albumin [Mass/Vol] 3.6 g/dL 3.4-5.0 [facility] Calcium [Mass/Vol] 9.6 mg/dL 8.5-10.1 [facility] Chloride [Moles/Vol] 101 mmol/L 98-107 [facility] CO2 [Moles/Vol] 28.1 mmol/L 21.0-32.0 [facility] Creatinine [Mass/Vol] 1.18 mg/dL High 0.55-1.02 [facility] Ferritin [Mass/Vol] 78.0 ng/mL 8.0-252.0 [facility] GFR/1.73 sq M.predicted MDRD (S/P/Bld) [Vol rate/Area] 55 mL/min/{1.73_m2} Low >=60 mL/min/1.7 3m 2 [facility] Glucose [Mass/Vol] 125 mg/dL High 74-106 [facility] Iron [Mass/Vol] 71.0 ug/dL 50.0-170.0 [facility] Magnesium [Mass/Vol] 1.9 mg/dL 1.8-2.4 [facility] Potassium [Moles/Vol] 4.4 mmol/L 3.5-5.1 [facility] Sodium [Moles/Vol] 139 mmol/L 136-145 [facility] Urate [Mass/Vol] 3.1 mg/dL 2.6-6.0 [facility] Urea nitrogen [Mass/Vol] 20.0 mg/dL High 7.0-18.0 [facility] Urea nitrogen/Creatinine [Mass ratio] 16.9 mg/mg [facility] - Urinalysison Protein (U) [Mass/Vol] 29.4 mg/dL High <=11.9 [facility] Leukocytes [#/volume] correc mary for nucleated erythrocytes in Blood by Automated counon 06-27-2024 WBC corrected for nucl RBC Auto (Bld) [#/Vol] Leukocytes [#/volume] corrected for nucleated erythrocytes in Blood by Automated coun 4.0-11.0 [facility] MCH Auto (RBC) [Entitic mass ]on 06-27-2024 MCH (RBC) [Entitic mass] MCH [Entitic mass] by Automated count 26.7-34.0 [facility] MCHC Auto (RBC) [Mass/Vol]on 06-27-2024 MCHC (RBC) [Mass/Vol] MCHC [Mass/volume] by Automated count 29.9-35.2 [facility] MCV Auto (RBC) [Entitic vol] on 06-27-2024 MCV (RBC) [Entitic vol] MCV [Entitic volume] by Automated count 81.0-99.0 [facility] No Panel Informationon 06-27 25-Hydroxy Vitamin D Total 46.4 ng/mL [facility] Comment on above: <20 ng/mL Vit D defi cient20-<30 ng/mL Vit D rlsrtnleeion29-497 ng/mL Vit D sufficient>100 ng/mL Potential Toxicity Parathyroid Hormone (Intact) 26 pg/mL 15-65 [facility] Comment on above: Performed at: [address] [id number] Director: Jamari Bray PhD, Phone: [phone] Phosphorus Level 3.7 mg/dL 2.6-4.7 [facility] Urine Random Creatinine 234.23 mg/dL 20.00-300. 00 [facility] Platelet mean volume Auto (B ld) [Entitic vol]on 06-27-2024 Platelet mean volume (Bld) [Entitic vol] Platelet mean volume [Entitic volume] in Blood by Automated count Low 9.5-13.5 [facility] Platelets Auto (Bld) [#/Vol] on 06-27-2024 Platelets (Bld) [#/Vol] Platelets [#/volume] in Blood by Automated count 150-450 [facility] RBC Auto (Bld) [#/Vol]on RBC (Bld) [#/Vol] Erythrocytes [#/volu me] in Blood by Automated count Low 4.20-5.40 [facility] Serum or plasma anion gap de terminationon 06-27-2024 Anion gap [Moles/Vol] Serum or plasma an ion gap determination [facility] Urine protein/creatinine rat ioon 06-27-2024 Protein/Creatinine (U) [Ratio] Urine protein/creatinine ratio [facility] No Panel Informationon 06-19 Type of [...] taken Amount of lidocaine used: 2.0 cc [facility] [employer] [facility] [employer] Type of biopsy: villafuerte ential Informed consent: [...] taken Amount of lidocaine used: 1.0 cc [facility] ALLERGENS W/COMP RFLX AREA 5 on 06-11-2024 CLASS DESCRIPTION Comment . [facility] Comment on above: Levels of Specific I gE Class Description of Class ----- < 0.10 0 Negative 0.10 - 0.31 0/I Equivocal/Low 0.32 - 0.55 I Low 0.56 - 1.40 II Moderate 1.41 - 3.90 III High 3.91 - 19.00 IV Very High 19.01 - 100.00 V Very High >100.00 Very High M309-KBM D PTERONYSSINUS <0.10 Class 0 kU/L [facility] O661-ZNZ D FARINAE <0.10 Class 0 kU/L [facility] S726-YWY CAT DANDER <0.10 Class 0 kU/L [facility] L810-GZQ DOG DANDER <0.10 Class 0 kU/L [facility] N453-DVC MOUSE URINE <0.10 Class 0 kU/L [facility] Comment on above: Performed at: [address] [id number] Weed Inspector: Re Salvador MD, Phone: [phone] D987-ECI BERMUDA GRASS <0.10 Class 0 kU/L [facility] L403-GQA ELLIE GRASS <0.10 Class 0 kU/L [facility] J513-CQL COCKROACH, AZERI <0.10 Class 0 kU/L [facility] IMMUNOGLOBULIN E, TOTAL 146 [facility] X293-ILF PENICILLIUM CHRYSOGEN <0.10 Class 0 kU/L [facility] K186-TSP CLADOSPORIUM HERBARUM <0.10 Class 0 kU/L [facility] T846-MES ASPERGILLUS FUMIGATUS <0.10 Class 0 kU/L [facility] K884-GEG ALTERNARIA ALTERNATA <0.10 Class 0 kU/L [facility] N099-YFH MAPLE/BOX ELDER <0.10 Class 0 kU/L [facility] X507-ZAM COMMON SILVER BIRCH <0.10 Class 0 kU/L [facility] W760-ZZK CEDAR, MOUNTAIN <0.10 Class 0 kU/L [facility] F163-PQN OAK, WHITE <0.10 Class 0 kU/L [facility] O656-GDM ELM, LEBANESE <0.10 Class 0 kU/L [facility] L233-MUO WALNUT <0.10 Class 0 kU/L [facility] Z779-MIL MAPLE LEAF [place] <0.10 Class 0 kU/L [facility] K510-PCU [place] <0.10 Class 0 kU/L [facility] F506-AVK LEILANI, WHITE <0.10 Class 0 kU/L [facility] F536-QAP PECAN, HICKORY <0.10 Class 0 kU/L [facility] G754-DOM WHITE MULBERRY <0.10 Class 0 kU/L [facility] D038-MFP RAGWEED, SHORT <0.10 Class 0 kU/L [facility] B850-QIH THISTLE, BURUNDIAN <0.10 Class 0 kU/L [facility] Z869-BOL PIGWEED, COMMON <0.10 Class 0 kU/L [facility] A221-HWU SHEEP SORREL <0.10 Class 0 kU/L [facility] CT MAXILLOFACIAL WO IV CONTR [...] report is generated using voice recognition reporting ([employer]). On occasion [employer] erroneously drops words from the report or replaces the spoken word with similar sounding words. Please call with any questions/concerns regarding this report.* Dictated and transcribed 05/21/24/dpd This report has been electronically signed and approved by the interpreting radiologist. Normal Not Available Comment on above: Order Comment: CT Si nus WO at [facility] please. FACIAL TRAUMA, FELL AND HIT LT SIDE OF FACE, SWELLING XR CERVICAL SPINE 2-3 VIEWSo n 03-16-2024 XR CERVICAL SPINE 2-3 VIEWS Interpreted By: Juan Jose Richter, STUDY: XR CERVICAL SPINE 2-3 VIEWS; ; 03/16/2024 10:38 am INDICATION: Signs/Symptoms:Assess cervical construct. ,Z98.1 Arthrodesis status COMPARISON: 10/13/2023 ACCESSION NUMBER(S): [id number] ORDERING CLINICIAN: MIREILLE ZURITA FINDINGS: Plate transfixes the cervical spine from C3 through C7. The plate is properly position and unchanged from prior examination. Prevertebral soft tissues are normal. 1-2 mm anterolisthesis C2 over C3, similar to prior examination. Remaining levels demonstrate normal alignment. Continued mild disc space height loss with anterior spurring C7-T1 unchanged. Lung apices are clear. RN OUTPATIENT SURGERY shunt projected along the right side of the neck. IMPRESSION: Stable appearance of the cervical spine. No acute findings or radiographic change since prior examination 10/13/2023. MACRO: None Signed by: Juan Jose Richter 03/20/2024 11:46 AM Dictation workstation: [id number] [facility] MR lumbar spine wo conon MR lumbar spine wo con [facility] Main [place] [address] [place], [place] [id number] MRI Report Signed Patient: Mary Goode MR#: [id number] : 1950 Acct:[id number] Age/Sex: 73 / F ADM Date: 03/08/24 Loc: ICMR Room: Type: REG CLI Attending Dr: Imer [...] Enamorado Jr., D.O.03/08/2024 2:37 PM Dictation Location: RADIO-PC-22 Transcribed By: JACKIE 03/08/24 1437 Dictated By: Olayinka Enamorado Jr, DO 03/08/24 1429 Signed By: 03/08/24 1437 Normal [facility] XR pre/post mri xrayon 03-08 XR pre/post mri xray [facility] Main [place] [address] [place] [address] XRay Report Signed Patient: Mary Goode MR#: [id number] : 1950 Acct:[id number] Age/Sex: 73 / F ADM Date: 03/08/24 Loc: [facility] Room: Type: [facility] Attending Dr: Imer Purcell MD Copies [...] scoliosis best evaluated by MRI. The patient's RN OUTPATIENT SURGERY shunt tip projecting over the sacrum. Coil embolization right upper quadrant. XR/XR pre/post mri xray IMPRESSION: No significant change in shunt setting compared to the prior study performed earlier today. Lumbar spine demonstrates multilevel degenerative disease best evaluated by the MRI. Impression dictated by: Olayinka Enamorado Jr., D.O.03/08/2024 2:41 PM Dictation Location: RADIO-PC-22 Transcribed By: [facility] 03/08/24 144 Dictated By: Olayinka Enamorado Jr, DO 03/08/24 1437 Signed By: 03/08/24 1441 Normal [facility] Pathology Request for Lab Co rpon 03-06-2024 Pathology Request for Lab [place] Normal [facility] Comment on above: Order Comment: PATHO LOGY GI SPECIMEN Result Comment: See report. Scanned copy available in EMR. PERFORMED BY: [place] [address] PATHOLOGIST COMPUTED TOMOGRAPHY TECHNOLOGIST JAYSON RON M.D. Performed By: #### P ATH TO [facility] #### [facility] [address] [place] [address] XR Knee - right 1 or 2 Views on 02-13-2024 Imaging Result: X-rays AP and lateral of right knee showed severe Valgus deformity with [id number] articulation to the lateral joint line. There is flattening of the articular surfaces laterally to the tibia plateau and lateral femoral condyle. There is marginal osteophytic formation and subchondral sclerosis noted laterally and the patellofemoral joint. There is no evidence of fracture or dislocation. Bony structures viewed showed appropriate ossification. [facility] Radiology Study observation (narrative) [facility] Albumin [Mass/volume] in Ser um or Plasma by Bromocresol green (BCG) dye binding methoOrdered By: Gino Davalosr on 01-19-2024 Albumin BCG dye [Mass/Vol] 4.0 g/dL 3.5-5.7 [facility] Bacteria [Presence] in Urine by AutomatedOrdered By: Gino Antonio on 01-19-2024 Bacteria Auto Ql (U) 1+ [HPF] High None Seen [facility] Bilirubin Test strip Ql (U)O rdered By: Gino Paco on 01-19-2024 Bilirubin Ql (U) Negative Negative [facility] Calcium [Mass/volume] in Ser um or PlasmaOrdered By: Gino Paco on 01-19-2024 Calcium [Mass/Vol] 9.4 mg/dL Normal 8.6-10.3 [facility] Comment on above: Performed By: #### M G, [id number], LETICIA, CUU, ADDONUAPLUS, FE and TIBC, PROCRERAT, RENAL, CBCNO ####[facility] [id number] Carbon dioxide, total [Moles /volume] in Serum or PlasmaOrdered By: Gino Antonio on 01-19-2024 CO2 [Moles/Vol] 30.4 mmol/L Normal 21.0-31.0 [facility] Comment on above: Performed By: #### M G, [id number], LETICIA, CUU, ADDONUAPLUS, FE and TIBC, PROCRERAT, RENAL, CBCNO ####[place] [address] [address] Chloride [Moles/volume] in S madhav or PlasmaOrdered By: Gino Antonio on 01-19-2024 Chloride [Moles/Vol] 99 mmol/L Normal 98-107 [facility] Comment on above: Performed By: #### M G, [id number], LETICIA, CUU, ADDONUAPLUS, FE and TIBC, PROCRERAT, RENAL, CBCNO ####[address] Color of Urine by AutoOrdere d By: Gino Antonio on 01-19-2024 Color (U) Light-yellow Normal Yellow [facility] Comment on above: Order Comment: Name Collection Type:: Clean-Voided Midstream Performed By: #### M G, [id number], LETICIA, CUU, ADDONUAPLUS, FE and TIBC, PROCRERAT, RENAL, CBCNO #### [facility] [address] [place] [address] [place] Creatinine [Mass/volume] in Serum or PlasmaOrdered By: Gino Antonio on 01-19-2024 Creatinine [Mass/Vol] 1.02 mg/dL Normal 0.60-1.20 [facility] Comment on above: Performed By: #### M G, [id number], LETICIA, CUU, ADDONUAPLUS, FE and TIBC, PROCRERAT, RENAL, CBCNO ####[place] [address] [place] [id number] [place] Creatinine [Mass/volume] in UrineOrdered By: Gino Antonio on 01-19-2024 Creatinine (U) [Mass/Vol] 63.00 mg/dL [facility] Comment on above: No reference range e stablished Dipstick and Microscopicon 0 01-19-2024 Bacteria,Urine 1+ High None Seen [facility] Comment on above: Order Comment: Name Collection Type:: Clean-Voided Midstream Performed By: #### M G, [id number], LETICIA, CUU, ADDONUAPLUS, FE and TIBC, PROCRERAT, RENAL, CBCNO #### [address] Bilirubin,Urine Negative Normal Negative [facility] Comment on above: Order Comment: Name Collection Type:: Clean-Voided Midstream Performed By: #### M G, [id number], LETICIA, CUU, ADDONUAPLUS, FE and TIBC, PROCRERAT, RENAL, CBCNO #### [address] Glucose Ql (U) Normal Normal Normal [facility] Comment on above: Order Comment: Name Collection Type:: Clean-Voided Midstream Performed By: #### M G, [id number], LETICIA, CUU, ADDONUAPLUS, FE and TIBC, PROCRERAT, RENAL, CBCNO #### [address] Hyaline Casts,Urine None Normal 0-8 [facility] Comment on above: Order Comment: Name Collection Type:: Clean-Voided Midstream Result Comment: PERF ORMED BY: [place] [address] PATHOLOGIST COMPUTED TOMOGRAPHY TECHNOLOGIST JAYSON RON M.D. Performed By: #### M G, [id number], LETICIA, CUU, ADDONUAPLUS, FE and TIBC, PROCRERAT, RENAL, CBCNO #### [address] Nitrite,Urine Negative Normal Negative [facility] Comment on above: Order Comment: Name Collection Type:: Clean-Voided Midstream Performed By: #### M G, [id number], LETICIA, CUU, ADDONUAPLUS, FE and TIBC, PROCRERAT, RENAL, CBCNO #### [address] Occult Blood,Urine Negative Normal Negative [facility] Comment on above: Order Comment: Name Collection Type:: Clean-Voided Midstream Performed By: #### M G, [id number], LETICIA, CUU, ADDONUAPLUS, FE and TIBC, PROCRERAT, RENAL, CBCNO #### [address] Protein,Urine Negative Normal Negative [facility] Comment on above: Order Comment: Name Collection Type:: Clean-Voided Midstream Performed By: #### M G, [id number], LETICIA, CUU, ADDONUAPLUS, FE and TIBC, PROCRERAT, RENAL, CBCNO #### [address] RBC,Urine 1-2 Normal 0-4 [facility] Comment on above: Order Comment: Name Collection Type:: Clean-Voided Midstream Performed By: #### M G, [id number], LETICIA, CUU, ADDONUAPLUS, FE and TIBC, PROCRERAT, RENAL, CBCNO #### [address] Specificy [place],Urine 1.018 Normal 1.001-1.03 0 [facility] Comment on above: Order Comment: Name Collection Type:: Clean-Voided Midstream Performed By: #### M G, [id number], LETICIA, CUU, ADDONUAPLUS, FE and TIBC, PROCRERAT, RENAL, CBCNO #### [address] Squamous Epithelial Cell,Urine 1-2 Normal 0-2 [facility] Comment on above: Order Comment: Name Collection Type:: Clean-Voided Midstream Performed By: #### M G, [id number], LETICIA, CUU, ADDONUAPLUS, FE and TIBC, PROCRERAT, RENAL, CBCNO #### [place] [id number] [place] Urobilinogen,Urine Normal Normal Normal [facility] Comment on above: Order Comment: Name Collection Type:: Clean-Voided Midstream Performed By: #### M G, [id number], LETICIA, CUU, ADDONUAPLUS, FE and TIBC, PROCRERAT, RENAL, CBCNO #### [facility] [address] WBC,Urine 5-9 High 0-4 [facility] Comment on above: Order Comment: Name Collection Type:: Clean-Voided Midstream Performed By: #### M G, [id number], LETICIA, CUU, ADDONUAPLUS, FE and TIBC, PROCRERAT, RENAL, CBCNO #### [facility] [address] Epithelial cells.squamous [# /area] in Urine sediment by Automated countOrdered By: Gino Paco on 01-19-2024 Epithelial cells.squamous Auto (Urine sed) [#/Area] 1-2 [HPF] 0-2 [facility] Erythrocyte distribution wid th [Ratio] by Automated countOrdered By: Gino Paco on 01-19-2024 Erythrocyte distribution width (RBC) [Ratio] 13.0 % Normal 11.9-15.3 [facility] Comment on above: Performed By: #### M G, [id number], LETICIA, CUU, ADDONUAPLUS, FE and TIBC, PROCRERAT, RENAL, CBCNO ####[facility] [id number] [address] Erythrocytes [#/area] in Uri ne sediment by Automated countOrdered By: Gino Paco on 01-19-2024 RBC Auto (Urine sed) [#/Area] 1-2 [HPF] 0-4 [facility] Erythrocytes [#/volume] in B lood by Automated countOrdered By: Gino Paco on 01-19-2024 RBC (Bld) [#/Vol] 3.69 10*6/uL Normal 3.60-5.00 [facility] Comment on above: Performed By: #### M G, [id number], LETICIA, CUU, ADDONUAPLUS, FE and TIBC, PROCRERAT, RENAL, CBCNO ####[facility] [address] [place] [address] [place] Ferritin [Mass/volume] in Se rum or PlasmaOrdered By: Gino Antonio on 01-19-2024 Ferritin [Mass/Vol] 42.5 ng/mL Normal 11.0-306.8 [facility] Comment on above: Performed By: #### M G, [id number], LETICIA, CUU, ADDONUAPLUS, FE and TIBC, PROCRERAT, RENAL, CBCNO ####[facility] [place] [address] [place] Glucose [Mass/volume] in Ser um or PlasmaOrdered By: Gino Antonio on 01-19-2024 Glucose [Mass/Vol] 86 mg/dL Normal 70-100 [facility] Comment on above: ADA recommended refe rence rangeRandom Glucose Reference Range is dependent on time and content of last meal. Glucose of more than 200 mg/dL in a nonstressed, ambulatory subject supports the diagnosis of Diabetes Mellitus. Result Comment: [place] om Glucose Reference Range is dependent on time and content of last meal. Glucose of more than 200 mg/dL in a nonstressed, ambulatory subject supports the diagnosis of Diabetes Mellitus. ADA recommended reference range Performed By: #### M G, [id number], LETICAI, CUU, ADDONUAPLUS, FE and TIBC, PROCRERAT, RENAL, CBCNO ####[facility] [id number] [place] [address] [place] Glucose [Mass/volume] in Uri ne by Test stripOrdered By: Gino Antonio on 01-19-2024 Glucose Test strip (U) [Mass/Vol] Normal mg/dL Normal [facility] Hematocrit [Volume Fraction] of Blood by Automated countOrdered By: Gino Antonio on 01-19-2024 Hematocrit (Bld) [Volume fraction] 33.5 % Low 34.0-46.4 [facility] Comment on above: Performed By: #### M G, [id number], LETICIA, CUU, ADDONUAPLUS, FE and TIBC, PROCRERAT, RENAL, CBCNO ####[address] Hemoglobin Test strip Ql (U) Ordered By: Gino Antonio on 01-19-2024 Hemoglobin Ql (U) Negative Negative [facility] Hemoglobin [Mass/volume] in BloodOrdered By: Gino Antonio on 01-19-2024 Hemoglobin (Bld) [Mass/Vol] 11.2 g/dL Low 11.8-15.4 [facility] Comment on above: Performed By: #### M G, [id number], LETICIA, CUU, ADDONUAPLUS, FE and TIBC, PROCRERAT, RENAL, CBCNO ####[address] Hemogram CBC Without Diffon 01-19-2024 Mean Corpuscular HGB Conc 33.6 g/dL Normal 32.0-35.0 [facility] Comment on above: Performed By: #### M G, [id number], LETICIA, CUU, ADDONUAPLUS, FE and TIBC, PROCRERAT, RENAL, CBCNO ####[address] WBC (Bld) [#/Vol] 9.0 10*3/uL Normal 3.8-11.6 [facility] Comment on above: Performed By: #### M G, [id number], LETICIA, CUU, ADDONUAPLUS, FE and TIBC, PROCRERAT, RENAL, CBCNO ####[address] Hyaline casts [#/area] in Ur ine sediment by Automated countOrdered By: Gino Antonio on 01-19-2024 Hyaline casts Auto (Urine sed) [#/Area] None [LPF] 0-8 [facility] Iron [Mass/volume] in Serum or PlasmaOrdered By: Gino Antonio on 01-19-2024 Iron [Mass/Vol] 63 ug/dL Normal 50-212 [facility] Comment on above: Performed By: #### M G, [id number], LETICIA, CUU, ADDONUAPLUS, FE and TIBC, PROCRERAT, RENAL, CBCNO ####[facility] Iron and TIBC Profileon 01-07 % Iron Saturation 19.5 % Low 20-50 [facility] Comment on above: Performed By: #### M G, [id number], LETICIA, CUU, ADDONUAPLUS, FE and TIBC, PROCRERAT, RENAL, CBCNO ####[facility] Total Iron Binding Capacity 323 ug/dL Normal 255-450 [facility] Comment on above: Performed By: #### M G, [id number], LETICIA, CUU, ADDONUAPLUS, FE and TIBC, PROCRERAT, RENAL, CBCNO ####[place] [address] [address] Iron binding capacity [Mass/ volume] in Serum or PlasmaOrdered By: Gino Paco on 01-19-2024 Iron binding capacity [Mass/Vol] 323 ug/dL 255-450 [facility] Iron saturation [Mass Fracti on] in Serum or PlasmaOrdered By: Gino Paco on 01-19-2024 Iron saturation [Mass fraction] 19.5 % Low 20-50 [facility] Ketones [Presence] in Urine by Test stripOrdered By: Gino Davalosr on 01-19-2024 Ketones Ql (U) Negative Normal Negative [facility] Comment on above: Order Comment: Name Collection Type:: Clean-Voided Midstream Performed By: #### M G, [id number], LETICIA, CUU, ADDONUAPLUS, FE and TIBC, PROCRERAT, RENAL, CBCNO #### [facility] [address] Leukocyte esterase [Presence ] in Urine by Test stripOrdered By: Gino Antonio on 01-19-2024 Leukocyte esterase Test strip Ql (U) 2+ High Negative [facility] Comment on above: Order Comment: Name Collection Type:: Clean-Voided Midstream Performed By: #### M G, [id number], LETICIA, CUU, ADDONUAPLUS, FE and TIBC, PROCRERAT, RENAL, CBCNO #### [facility] [address] Leukocytes [#/area] in Urine sediment by Automated countOrdered By: Gino Antonio on 01-19-2024 WBC Auto (Urine sed) [#/Area] 5-9 [HPF] High 0-4 [facility] Leukocytes [#/volume] correc mary for nucleated erythrocytes in Blood by Automated counOrdered By: Gino Antonio on 01-19-2024 WBC corrected for nucl RBC Auto (Bld) [#/Vol] 9.0 10*3/uL 3.8-11.6 [facility] MCH [Entitic mass] by Automa mary countOrdered By: Gino Antonio on 01-19-2024 MCH (RBC) [Entitic mass] 30.5 pg Normal 24.7-34.3 [facility] Comment on above: Performed By: #### M G, [id number], LETICIA, CUU, ADDONUAPLUS, FE and TIBC, PROCRERAT, RENAL, CBCNO ####[facility] [id number] MCHC Auto (RBC) [Mass/Vol]Or dered By: Gino Antonio on 01-19-2024 MCHC (RBC) [Mass/Vol] 33.6 g/dL 32.0-35.0 [facility] MCV [Entitic volume] by Auto mated countOrdered By: Gino Antonio on 01-19-2024 MCV (RBC) [Entitic vol] 90.7 fL Normal 80-100 [facility] Comment on above: Performed By: #### M G, [id number], LETICIA, CUU, ADDONUAPLUS, FE and TIBC, PROCRERAT, RENAL, CBCNO ####[facility] [id number] Magnesium [Mass/volume] in S madhav or PlasmaOrdered By: Gino Antonio on 01-19-2024 Magnesium [Mass/Vol] 1.9 mg/dL Normal 1.9-2.7 [facility] Comment on above: Performed By: #### M G, [id number], LETICIA, CUU, ADDONUAPLUS, FE and TIBC, PROCRERAT, RENAL, CBCNO ####[place] [address] [place] [address] [facility] Nitrite Test strip Ql (U)Ord ered By: Gino Antonio on 01-19-2024 Nitrite Ql (U) Negative Negative [facility] No Panel InformationOrdered By: Gino Antonio on 01-19-2024 Estimated GFR (CKD-EPI) 58.816 mL/Min [facility] Creatinine Clearance (Chem N/A [facility] Phosphate [Mass/volume] in S madhav or PlasmaOrdered By: Gino Antonio on 01-19-2024 Phosphate [Mass/Vol] 4.1 mg/dL Normal 2.5-4.5 [facility] Comment on above: Performed By: #### M G, [id number], LETICIA, CUU, ADDONUAPLUS, FE and TIBC, PROCRERAT, RENAL, CBCNO ####[place] [address] [place] [id number] [facility] Platelet mean volume [Entiti c volume] in Blood by Automated countOrdered By: Gino Antonio on 01-19-2024 Platelet mean volume (Bld) [Entitic vol] 7.8 fL Normal 6.3-10.7 [facility] Comment on above: Result Comment: PERF ORMED BY: [facility] [address] [place] [id number] PATHOLOGIST COMPUTED TOMOGRAPHY TECHNOLOGIST JAYSON RON M.D. Performed By: #### M G, [id number], LETICIA, CUU, ADDONUAPLUS, FE and TIBC, PROCRERAT, RENAL, CBCNO ####[place] [address] [place] [address] [facility] Platelets [#/volume] in Bloo d by Automated countOrdered By: Gino Antonio on 01-19-2024 Platelets (Bld) [#/Vol] 342 10*3/uL Normal 150-450 [facility] Comment on above: Performed By: #### M G, [id number], LETICIA, CUU, ADDONUAPLUS, FE and TIBC, PROCRERAT, RENAL, CBCNO ####[place] [address] [place] [id number] [facility] Potassium [Moles/volume] in Serum or PlasmaOrdered By: Gino Antonio on 01-19-2024 Potassium [Moles/Vol] 3.8 mmol/L Normal 3.5-5.1 [facility] Comment on above: Performed By: #### M G, [id number], LETICIA, CUU, ADDONUAPLUS, FE and TIBC, PROCRERAT, RENAL, CBCNO ####[place] [id number] [facility] Protein Creat Ratio Ur Rando mon 01-19-2024 Creatinine, Urine (Random) 63.00 mg/dL Normal [facility] Comment on above: Result Comment: No r eference range established Performed By: #### M G, [id number], LETICIA, CUU, ADDONUAPLUS, FE and TIBC, PROCRERAT, RENAL, CBCNO ####[place] [id number] [facility] Urine Protein/Creatinine Ratio 111 mg/g{Cre} Normal 0-200 [facility] Comment on above: Result Comment: PERF ORMED BY: [facility] [address] [place] [id number] PATHOLOGIST COMPUTED TOMOGRAPHY TECHNOLOGIST JAYSON RON M.D. Performed By: #### M G, [id number], LETICIA, CUU, ADDONUAPLUS, FE and TIBC, PROCRERAT, RENAL, CBCNO ####[place] [id number] [facility] Protein Test strip (U) [Mass /Vol]Ordered By: Gino Antonio on 01-19-2024 Protein (U) [Mass/Vol] Negative Negative [facility] Protein [Mass/volume] in Uri neOrdered By: Gino Antonio on 01-19-2024 Protein (U) [Mass/Vol] 7 mg/dL Normal 0-9 [facility] Comment on above: Performed By: #### M G, [id number], LETICIA, CUU, ADDONUAPLUS, FE and TIBC, PROCRERAT, RENAL, CBCNO ####[place] [address] [address] Renal Function Panelon 01-18 Albumin [Mass/Vol] 4.0 g/dL Normal 3.5-5.7 [facility] Comment on above: Performed By: #### M G, [id number], LETICIA, CUU, ADDONUAPLUS, FE and TIBC, PROCRERAT, RENAL, CBCNO ####[address] GFR/1.73 sq M.predicted MDRD (S/P/Bld) [Vol rate/Area] 58.816 mL/min/{1.73_m2} Normal [facility] Comment on above: Performed By: #### M G, [id number], LETICIA, CUU, ADDONUAPLUS, FE and TIBC, PROCRERAT, RENAL, CBCNO ####[address] Serum or plasma anion gap de terminationOrdered By: Gino Antonio on 01-19-2024 Anion gap [Moles/Vol] 9.4 mmol/L Normal 6.0-15.0 [facility] Comment on above: Performed By: #### M G, [id number], LETICIA, CUU, ADDONUAPLUS, FE and TIBC, PROCRERAT, RENAL, CBCNO ####[address] Sodium [Moles/volume] in Ser um or PlasmaOrdered By: Gino Antonio on 01-19-2024 Sodium [Moles/Vol] 135 mmol/L Low 136-145 [facility] Comment on above: Performed By: #### M G, [id number], LETICIA, CUU, ADDONUAPLUS, FE and TIBC, PROCRERAT, RENAL, CBCNO ####[place] [phone] [facility] Specific gravity Test strip (U) [Rel density]Ordered By: Gino Antonio on 01-19-2024 Specific gravity (U) [Rel density] 1.018 1.001-1.03 0 [facility] Transferrin [Mass/volume] in Serum or PlasmaOrdered By: Gino Antonio on 01-19-2024 Transferrin [Mass/Vol] 231 mg/dL Normal 203-362 [facility] Comment on above: Performed By: #### M G, [id number], LETICIA, CUU, ADDONUAPLUS, FE and TIBC, PROCRERAT, RENAL, CBCNO ####[place] [phone] [facility] Urea nitrogen [Mass/volume] in Serum or PlasmaOrdered By: Gino Antonio on 01-19-2024 Urea nitrogen [Mass/Vol] 25 mg/dL Normal 7-25 [facility] Comment on above: Performed By: #### M G, [id number], LETICIA, CUU, ADDONUAPLUS, FE and TIBC, PROCRERAT, RENAL, CBCNO ####[place] [phone] [facility] Urine Cultureon 01-19-2024 Bacteria identified Cx Nom (U) 20,000 colonies/ml mixed bacterial skin contaminants 2 Days PERFORMED BY: [facility] [address] [place] [id number] PATHOLOGIST COMPUTED TOMOGRAPHY TECHNOLOGIST JAYSON RON M.D. Normal [facility] Comment on above: Performed By: #### M G, [id number], LETICIA, CUU, ADDONUAPLUS, FE and TIBC, PROCRERAT, RENAL, CBCNO ####[place] [phone] [facility] Urine appearanceOrdered By: Gino Antonio on 01-19-2024 Appearance (U) Clear Normal Clear [facility] Comment on above: Order Comment: Name Collection Type:: Clean-Voided Midstream Performed By: #### M G, [id number], LETICIA, CUU, ADDONUAPLUS, FE and TIBC, PROCRERAT, RENAL, CBCNO #### [facility] [address] [place] [phone] [facility] Urine culture routineOrdered By: Gino Antonio on 01-19-2024 Bacteria identified Cx Nom (U) 2 Days [facility] Urine protein/creatinine rat ioOrdered By: Gino Antonio on 01-19-2024 Protein/Creatinine (U) [Ratio] 111 mg/g{Cre} 0-200 [facility] Urobilinogen Test strip (U) [Mass/Vol]Ordered By: Gino Antonio on 01-19-2024 Urobilinogen (U) [Mass/Vol] Normal mg/dL Normal [facility] Vitamin D 25 Hydroxy Totalon 01-19-2024 Vitamin D 25 Hydroxy Total 31.0 ng/mL Normal 30-100 [facility] Comment on above: Result Comment: [place] MIN D STATUS 25([place])VITAMIN D RANGE (ng/mL) Deficient <20 Insufficient 20 to <30 Sufficient 30 to 100 Reference: Mitzi MF,Manish NC, Gianni HOYT, et al. Evaluation,treatment, and prevention of vitamin D deficiency; an Endocrine Society clinical practice guideline. JCEM. 2010; 96(7):1911-30. PERFORMED BY: [facility] [address] [place] [address] PATHOLOGIST COMPUTED TOMOGRAPHY TECHNOLOGIST JAYSON RON M.D. Performed By: #### M G, [id number], LETICIA, CUU, ADDONUAPLUS, FE and TIBC, PROCRERAT, RENAL, CBCNO ####[facility] [id number] Vitamin D+Metabolites [Mass/ volume] in Serum or PlasmaOrdered By: Gino Antonio on 01-19-2024 Vitamin D+Metabolites [Mass/Vol] 31.0 ng/mL 30-100 [facility] Comment on above: VITAMIN D STATUS 25( [place])VITAMIN D RANGE (ng/mL) Deficient <20 Insufficient 20 to <30Sufficient 30 to 100Reference: Mitzi MF,Manish NC, Gianni HOYT, et al. Evaluation,treatment, and prevention of vitamin D deficiency; an Endocrine Society clinical practice guideline. JCEM. 2010; 96(7):1911-30. pH of Urine by Test stripOrd ered By: Gino Antonio on 01-19-2024 pH (U) 6.0 [pH] Normal 5.0-9.0 [facility] Comment on above: Order Comment: Name Collection Type:: Clean-Voided Midstream Performed By: #### M G, [id number], LETICIA, CUU, ADDONUAPLUS, FE and TIBC, PROCRERAT, RENAL, CBCNO #### [facility] [address] MM screening mammo BI w/CADo n 12-08-2023 MM screening mammo BI w/CAD [facility] Main [place] [address] [place] [address] Mammography Report Signed Patient: Mary Goode MR#: [id number] : 1950 Acct:[id number] Age/Sex: 73 / F ADM Date: 12/08/23 Loc: [place] Room: Type: [facility] Attending Dr: Imer Purcell MD Copies [...] Adan Chen M.D.12/08/2023 3:58 PM Dictation Location: [facility] Transcribed By: [facility] 12/08/23 1558 Dictated By: Adan Chen DO 12/08/23 1527 Signed By: 12/08/23 1558 Normal [facility] XR CERVICAL SPINE 2-3 VIEWSo n 10-13-2023 XR CERVICAL SPINE 2-3 VIEWS Interpreted By: Raul Pteer, STUDY: XR CERVICAL SPINE 2-3 VIEWS; ; 10/13/2023 2:32 pm INDICATION: Signs/Symptoms:S/P anterior cervical fusion. COMPARISON: 06/09/2023 ACCESSION NUMBER(S): [id number] ORDERING CLINICIAN: MIREILLE ZURITA FINDINGS: C-spine, two views Anterior spinal fusion extending from C3 through C7. There is mild disc space narrowing osteophytosis at C7-T1. No fracture seen. No spondylolisthesis. IMPRESSION: Anterior spinal fusion C3-C7 with intact hardware. No malalignment MACRO: None Signed by: Raul Peter 10/14/2023 6:10 PM Dictation workstation: [id number] [facility] Comment on above: Order Comment: Uprig ht AP/Lat XR Cervical spine 2 or 3 Vie wson 06-10-2023 No hardware failure at the C3-C7 anterior fusion. Mild spondylosis at C7-T1 MACRO: None Signed by: Raul Peter 06/10/2023 6:21 PM Dictation workstation: [id number] Interpreted By: Raul Hernandes, STUDY: XR CERVICAL SPINE 2-3 VIEWS; ; 06/09/2023 2:35 pm INDICATION: Signs/Symptoms:To assess the fusion. COMPARISON: 05/05/2023 ACCESSION NUMBER(S): [id number] ORDERING CLINICIAN: MIREILLE ZURITA FINDINGS: C-spine, two views Anterior fusion C3 through C7. The hardware is intact. The prevertebral soft tissues are within normal limits. There is no fracture or spondylolisthesis. There is mild spondylotic change at C7-T1 Raul Slade MD - 06/10/2023 Interpreted By: Raul Peter, STUDY: XR CERVICAL SPINE 2-3 VIEWS; ; 06/09/2023 2:35 pm INDICATION: Signs/Symptoms:To assess the fusion. COMPARISON: 05/05/2023 ACCESSION NUMBER(S): [id number] ORDERING CLINICIAN: MIREILLE ZURITA FINDINGS: C-spine, two views Anterior fusion C3 through C7. The hardware is intact. The prevertebral soft tissues are within normal limits. There is no fracture or spondylolisthesis. There is mild spondylotic change at C7-T1 IMPRESSION: No hardware failure at the C3-C7 anterior fusion. Mild spondylosis at C7-T1 MACRO: None Signed by: Raul Peter 06/10/2023 6:21 PM Dictation workstation: [id number] [facility] Work Phone: XR Cervical spine 2 or 3 Vie wsOrdered By: Raul Peter on 06-10-2023 [facility] Work Phone: XR CERVICAL SPINE 2-3 VIEWSo n 06-09-2023 XR CERVICAL SPINE 2-3 VIEWS Interpreted By: Raul Peter, STUDY: XR CERVICAL SPINE 2-3 VIEWS; ; 06/09/2023 2:35 pm INDICATION: Signs/Symptoms:To assess the fusion. COMPARISON: 05/05/2023 ACCESSION NUMBER(S): [id number] ORDERING CLINICIAN: MIREILLE ZURITA FINDINGS: C-spine, two views Anterior fusion C3 through C7. The hardware is intact. The prevertebral soft tissues are within normal limits. There is no fracture or spondylolisthesis. There is mild spondylotic change at C7-T1 IMPRESSION: No hardware failure at the C3-C7 anterior fusion. Mild spondylosis at C7-T1 MACRO: None Signed by: Raul Peter 06/10/2023 6:21 PM Dictation workstation: [id number] [facility] XR Cervical spine 2 or 3 Vie wson 06-09-2023 Radiology Study observation (narrative) [facility] Work Phone: XR CERVICAL SPINE 2-3 VIEWSo n 05-05-2023 XR CERVICAL SPINE 2-3 VIEWS Interpreted By: Juan Jose Sen, STUDY: XR CERVICAL SPINE 2-3 VIEWS INDICATION: Signs/Symptoms:s/p ACDF C3 - 7 on 03/21/2023. XRAY ON OR AFTER MAY 05, 2023, for appointment 05/12/2023. COMPARISON: March 22 ACCESSION NUMBER(S): [id number] ORDERING CLINICIAN: ARASELI FAUSTIN FINDINGS: Anterior cervical fusion C3 through C7 with plate and disc space replacement. Alignment normal. Prevertebral soft tissues improving. IMPRESSION: Satisfactory appearance C3 through C7 anterior fusion. Signed by: Juan Jose Sen 05/07/2023 7:02 AM Dictation workstation: [id number] [facility] ECG 12 LeadOrdered By: Camilo Parr on 03-28-2023 Atrial Rate 63 BPM [facility] Work Phone: P [place] 51 degrees [facility] Work Phone: P Offset 183 ms [facility] Work Phone: P Onset 128 [facility] Work Phone: NC Interval 192 ms [facility] Work Phone: Q Onset 224 ms [facility] Work Phone: QRS Count 10 beats [facility] Work Phone: QRS Duration 84 ms [facility] Work Phone: QT Interval 406 ms [facility] Work Phone: QTC Calculation(Bazett) 415 ms [facility] Work Phone: QTC Fredericia 412 [facility] Work Phone: R [place] 52 degrees [facility] Work Phone: T [place] 44 degrees [facility] Work Phone: T Offset 427 ms [facility] Work Phone: Ventricular Rate 63 BPM [facility] Work Phone: [facility] Work Phone: ECG 12 Leadon 03-28-2023 Normal sinus rhythm Normal ECG No previous ECGs available Confirmed by Camilo Parr ([id number]) on 03/28/2023 9:17:27 PM MUSE Camilo Parr MD - Normal sinus rhythm Normal ECG No previous ECGs available Confirmed by Camilo Parr ([id number]) on 03/28/2023 9:17:27 PM [facility] Work Phone: Basic metabolic 2000 panelon 03-23-2023 Anion gap [Moles/Vol] 13 mmol/L 10 - 2 0 mmol/L [facility] Calcium [Mass/Vol] 8.7 mg/dL 8.6 - 10. 3 mg/dL [facility] Chloride [Moles/Vol] 101 mmol/L 98 - 10 7 mmol/L [facility] CO2 [Moles/Vol] 26 mmol/L 21 - 32 mmol/L [facility] Creatinine [Mass/Vol] 0.90 mg/dL 0.50 - 1.05 mg/dL [facility] GFR/1.73 sq M.predicted MDRD (S/P/Bld) [Vol rate/Area] 69 mL/min/{1.73_m2} - PINF [facility] Comment on above: Calculations of gabriela mated GFR are performed using the 2020 CKD-EPI Study Refit equation without the race variable for the IDMS-Traceable creatinine methods. https://jasn.asnjournals.org/content/early//ASN.073421 7193 Glucose [Mass/Vol] 97 mg/dL 74 - 99 mg/dL [facility] Interpretation and review of laboratory results Normal [facility] Potassium [Moles/Vol] 3.7 mmol/L 3.5 - 5.3 mmol/L [facility] Sodium [Moles/Vol] 136 mmol/L 136 - 145 mmol/L [facility] Urea nitrogen [Mass/Vol] 11 mg/dL 6 - 23 mg/dL [facility] Anion gap [Moles/Vol] 13 mmol/L Normal 10-20 [facility] Comment on above: Performed By: #### 3 4529-8 #### MADELEINE ROSE ([id number]) [facility] ([facility]) [address] [place] [address] Calcium [Mass/Vol] 8.7 mg/dL Normal 8.6-10.3 [facility] Comment on above: Performed By: #### 3 4529-8 #### MADELEINE ROSE ([id number]) [facility]) [address] [address] Chloride [Moles/Vol] 101 mmol/L Normal 98-107 [facility] Comment on above: Performed By: #### 3 4529-8 #### MADELEINE ROSE ([id number]) [facility] ([facility]) [address] [address] CO2 [Moles/Vol] 26 mmol/L Normal 21-32 [facility] Comment on above: Performed By: #### 3 4529-8 #### MADELEINE ROSE ([id number]) [facility]) [address] [place] [address] Creatinine [Mass/Vol] 0.90 mg/dL Normal 0.50-1.05 [facility] Comment on above: Performed By: #### 3 4529-8 #### MADELEINE ROSE ([id number]) [facility] ([facility]) [address] [place] [address] GFR/1.73 sq M.predicted MDRD (S/P/Bld) [Vol rate/Area] 69 mL/min/1.73m*2 Normal >60 [facility] Comment on above: Result Comment: Calc ulations of estimated GFR are performed using the 2020 CKD-EPI Study Refit equation without the race variable for the IDMS-Traceable creatinine methods. https://jasn.asnjournals.org/content/early/ASN.887246 2280 Performed By: #### 3 4529-8 #### MADELEINE ROSE ([id number]) [facility] ([facility]) [address] [address] Glucose [Mass/Vol] 97 mg/dL Normal 74-99 [facility] Comment on above: Performed By: #### 3 4529-8 #### MADELEINE ROSE ([id number]) [facility] ([facility]) [address] [address] Potassium [Moles/Vol] 3.7 mmol/L Normal 3.5-5.3 [facility] Comment on above: Performed By: #### 3 4529-8 #### MADELEINE ROSE ([id number]) [facility] ([facility]) [address] [address] Sodium [Moles/Vol] 136 mmol/L Normal 136-145 [facility] Comment on above: Performed By: #### 3 4529-8 #### MADELEINE ROSE ([id number]) [facility] ([facility]) [address] [place] [address] Urea nitrogen [Mass/Vol] 11 mg/dL Normal 6-23 [facility] Comment on above: Performed By: #### 3 4529-8 #### MADELEINE ROSE ([id number]) [facility] ([facility]) [address] [place] [address] CBC panel Auto (Bld)on 03-23 Erythrocyte distribution width (RBC) [Ratio] 13.4 % 11.5 - 14.5 % [facility] Hematocrit (Bld) [Volume fraction] 35.3 % Low 36.0 - 46.0 % [facility] Hemoglobin (Bld) [Mass/Vol] 11.4 g/dL Low 12.0 - 16.0 g/dL [facility] Interpretation and review of laboratory results Abnormal [facility] MCH (RBC) [Entitic mass] 30.4 pg 26.0 - 34.0 pg [facility] MCHC (RBC) [Mass/Vol] 32.3 g/dL 32.0 - 36.0 g/dL [facility] MCV (RBC) [Entitic vol] 94 fL 80 - 100 fL [facility] Nucleated RBC/100 WBC (Bld) [Ratio] 0.0 % [facility] Platelets (Bld) [#/Vol] 310 10*3/uL [facility] RBC (Bld) [#/Vol] 3.75 10*6/uL Low [facility] WBC (Bld) [#/Vol] 9.9 10*3/uL [facility] Erythrocyte distribution width (RBC) [Ratio] 13.4 % Normal 11.5-14.5 [facility] Comment on above: Performed By: #### 3 4529-8 #### MADELEINE ROSE ([id number]) [facility] ([facility]) [address] [place] [address] Hematocrit (Bld) [Volume fraction] 35.3 % Low 36.0-46.0 [facility] Comment on above: Performed By: #### 3 4529-8 #### MADELEINE ROSE ([id number]) [facility] ([facility]) [address] [place] [address] Hemoglobin (Bld) [Mass/Vol] 11.4 g/dL Low 12.0-16.0 [facility] Comment on above: Performed By: #### 3 4529-8 #### MADELEINE ROSE ([id number]) [facility] ([facility]) [address] [place] [address] MCH (RBC) [Entitic mass] 30.4 pg Normal 26.0-34.0 [facility] Comment on above: Performed By: #### 3 4529-8 #### MADELEINE ROSE ([id number]) [facility] ([facility]) [address] [place] [address] MCHC (RBC) [Mass/Vol] 32.3 g/dL Normal 32.0-36.0 [facility] Comment on above: Performed By: #### 3 4529-8 #### MADELEINE ROSE ([id number]) [facility] ([facility]) [address] [place] [address] MCV (RBC) [Entitic vol] 94 fL Normal 80-100 [facility] Comment on above: Performed By: #### 3 4529-8 #### MADELEINE ROSE ([id number]) [facility] ([facility]) [address] [place] [address] Nucleated RBC/100 WBC (Bld) [Ratio] 0.0 /100 WBCs Normal 0.0-0.0 [facility] Comment on above: Performed By: #### 3 4529-8 #### MADELEINE ROSE ([id number]) [facility] ([facility]) [address] [place] [address] Platelets (Bld) [#/Vol] 310 x10*3/uL Normal 150-450 [facility] Comment on above: Performed By: #### 3 4529-8 #### MADELEINE ROSE ([id number]) [facility] ([facility]) [address] [place] [address] RBC (Bld) [#/Vol] 3.75 x10*6/uL Low 4.00-5.20 [facility] Comment on above: Performed By: #### 3 4529-8 #### MADELEINE ROSE ([id number]) [facility] ([facility]) [address] [address] WBC (Bld) [#/Vol] 9.9 x10*3/uL Normal 4.4-11.3 [facility] Comment on above: Performed By: #### 3 4529-8 #### MADELEINE ROSE ([id number]) [facility] ([facility]) [address] [place] [address] Basic metabolic 2000 panelon 03-22-2023 Anion gap [Moles/Vol] 11 mmol/L 10 - 2 0 mmol/L [facility] Calcium [Mass/Vol] 8.8 mg/dL 8.6 - 10. 3 mg/dL [facility] Chloride [Moles/Vol] 102 mmol/L 98 - 10 7 mmol/L [facility] CO2 [Moles/Vol] 26 mmol/L 21 - 32 mmol/L [facility] Creatinine [Mass/Vol] 0.83 mg/dL 0.50 - 1.05 mg/dL [facility] GFR/1.73 sq M.predicted MDRD (S/P/Bld) [Vol rate/Area] 76 mL/min/{1.73_m2} - PINF [facility] Comment on above: Calculations of gabriela mated GFR are performed using the 2020 CKD-EPI Study Refit equation without the race variable for the IDMS-Traceable creatinine methods. https://jasn.asnjournals.org/content/early/ASN.488498 7767 Glucose [Mass/Vol] 109 mg/dL High 74 - 99 mg/dL [facility] Interpretation and review of laboratory results Abnormal [facility] Potassium [Moles/Vol] 3.9 mmol/L 3.5 - 5.3 mmol/L [facility] Sodium [Moles/Vol] 135 mmol/L Low 136 - 145 mmol/L [facility] Urea nitrogen [Mass/Vol] 11 mg/dL 6 - 23 mg/dL [facility] Anion gap [Moles/Vol] 11 mmol/L Normal 10-20 [facility] Comment on above: Performed By: #### 2 4321-2 #### MADELEINE ROSE ([id number]) [facility] ([facility]) [address] [place] [address] Calcium [Mass/Vol] 8.8 mg/dL Normal 8.6-10.3 [facility] Comment on above: Performed By: #### 2 4321-2 #### MADELEINE ROSE ([id number]) [facility] ([facility]) [address] [place] [address] Chloride [Moles/Vol] 102 mmol/L Normal 98-107 [facility] Comment on above: Performed By: #### 2 4321-2 #### MADELEINE ROSE ([id number]) [facility] ([facility]) [address] [place] [address] CO2 [Moles/Vol] 26 mmol/L Normal 21-32 [facility] Comment on above: Performed By: #### 2 4321-2 #### MADELEINE ROSE ([id number]) [facility] ([facility]) [address] [place] [address] Creatinine [Mass/Vol] 0.83 mg/dL Normal 0.50-1.05 [facility] Comment on above: Performed By: #### 2 4321-2 #### MADELEINE ROSE ([id number]) [facility] ([facility]) [address] [place] [address] GFR/1.73 sq M.predicted MDRD (S/P/Bld) [Vol rate/Area] 76 mL/min/1.73m*2 Normal >60 [facility] Comment on above: Result Comment: Calc ulations of estimated GFR are performed using the 2020 CKD-EPI Study Refit equation without the race variable for the IDMS-Traceable creatinine methods. https://jasn.asnjournals.org/content/early//ASN.834817 7837 Performed By: #### 2 4321-2 #### MADELEINE ROSE ([id number]) [facility] ([facility]) [address] [place] [address] Glucose [Mass/Vol] 109 mg/dL High 74-99 [facility] Comment on above: Performed By: #### 2 4321-2 #### MADELEINE ROSE ([id number]) [facility]) [address] [place] [address] Potassium [Moles/Vol] 3.9 mmol/L Normal 3.5-5.3 [facility] Comment on above: Performed By: #### 2 4321-2 #### MADELEINE ROSE ([id number]) [facility]) [address] [place] [address] Sodium [Moles/Vol] 135 mmol/L Low 136-145 [facility] Comment on above: Performed By: #### 2 4321-2 #### MADELEINE ROSE ([id number]) [facility]) [address] [place] [address] Urea nitrogen [Mass/Vol] 11 mg/dL Normal 6-23 [facility] Comment on above: Performed By: #### 2 4321-2 #### MADELEINE ROSE ([id number]) [facility]) [address] [place] [address] CBC panel Auto (Bld)on 03-22 Erythrocyte distribution width (RBC) [Ratio] 13.5 % 11.5 - 14.5 % [facility] Hematocrit (Bld) [Volume fraction] 36.7 % 36.0 - 46.0 % [facility] Hemoglobin (Bld) [Mass/Vol] 11.6 g/dL Low 12.0 - 16.0 g/dL [facility] Interpretation and review of laboratory results Abnormal [facility] MCH (RBC) [Entitic mass] 30.2 pg 26.0 - 34.0 pg [facility] MCHC (RBC) [Mass/Vol] 31.6 g/dL Low 32.0 - 36.0 g/dL [facility] MCV (RBC) [Entitic vol] 96 fL 80 - 100 fL [facility] Nucleated RBC/100 WBC (Bld) [Ratio] 0.0 % [facility] Platelets (Bld) [#/Vol] 330 10*3/uL [facility] RBC (Bld) [#/Vol] 3.84 10*6/uL Low [facility] WBC (Bld) [#/Vol] 12.1 10*3/uL High [facility] Erythrocyte distribution width (RBC) [Ratio] 13.5 % Normal 11.5-14.5 [facility] Comment on above: Performed By: #### 5 8410-2 #### MADELEINE ROSE ([id number]) [facility]) [address] [place] [address] Hematocrit (Bld) [Volume fraction] 36.7 % Normal 36.0-46.0 [facility] Comment on above: Performed By: #### 5 8410-2 #### MADELEINE ROSE ([id number]) [facility] ([facility]) [address] [place] [address] Hemoglobin (Bld) [Mass/Vol] 11.6 g/dL Low 12.0-16.0 [facility] Comment on above: Performed By: #### 5 8410-2 #### MADELEINE ROSE ([id number]) [facility] ([facility]) [address] [place] [address] MCH (RBC) [Entitic mass] 30.2 pg Normal 26.0-34.0 [facility] Comment on above: Performed By: #### 5 8410-2 #### MADELEINE ROSE ([id number]) [facility] ([facility]) [address] [place] [address] MCHC (RBC) [Mass/Vol] 31.6 g/dL Low 32.0-36.0 [facility] Comment on above: Performed By: #### 5 8410-2 #### MADELEINE ROSE ([id number]) [facility] ([facility]) [address] [place] [address] MCV (RBC) [Entitic vol] 96 fL Normal 80-100 [facility] Comment on above: Performed By: #### 5 8410-2 #### MADELEINE ROSE ([id number]) [facility] ([facility]) [address] [place] [address] Nucleated RBC/100 WBC (Bld) [Ratio] 0.0 /100 WBCs Normal 0.0-0.0 [facility] Comment on above: Performed By: #### 5 8410-2 #### MADELEINE ROSE ([id number]) [facility] ([facility]) [address] [place] [address] Platelets (Bld) [#/Vol] 330 x10*3/uL Normal 150-450 [facility] Comment on above: Performed By: #### 5 8410-2 #### MADELEINE ROSE ([id number]) [facility] ([facility]) [address] [place] [address] RBC (Bld) [#/Vol] 3.84 x10*6/uL Low 4.00-5.20 [facility] Comment on above: Performed By: #### 5 8410-2 #### MADELEINE BARRIOSI ([id number]) [facility]) [address] [place] [address] WBC (Bld) [#/Vol] 12.1 x10*3/uL High 4.4-11.3 [facility] Comment on above: Performed By: #### 5 8410-2 #### MADELEINE ROSE ([id number]) [facility] ([facility]) [address] [place] [address] XR CERVICAL SPINE 2-3 VIEWSo n 03-22-2023 XR CERVICAL SPINE 2-3 VIEWS Interpreted By: Juwan Petit, STUDY: XR CERVICAL SPINE 2-3 VIEWS; ; 03/22/2023 6:16 am INDICATION: Signs/Symptoms:post op evaluation. COMPARISON: 03/21/2023 at 12:31 p.m. ACCESSION NUMBER(S): [id number] ORDERING CLINICIAN: MARY PATRICK FINDINGS: Two view [...] Juwan Petit 03/22/2023 9:24 AM Dictation workstation: [id number] [facility] XR Cervical spine 2 or 3 [...] follow-up advised. MACRO: None Signed by: Juwan Peitt 03/22/2023 9:24 AM Dictation workstation: [id number] [facility] Interpreted By: Juwan Rhoades, STUDY: XR CERVICAL SPINE 2-3 VIEWS; ; 03/22/2023 6:16 am INDICATION: Signs/Symptoms:post op evaluation. COMPARISON: 03/21/2023 at 12:31 p.m. ACCESSION NUMBER(S): [id number] ORDERING CLINICIAN: MARY SHELL FINDINGS: Two view [...] otherwise limiting evaluation however. [facility] Juwan Petit DO - 03/22/2023 Interpreted By: Juwan Petit, STUDY: XR CERVICAL SPINE 2-3 VIEWS; ; 03/22/2023 6:16 am INDICATION: Signs/Symptoms:post op evaluation. COMPARISON: 03/21/2023 at 12:31 p.m. ACCESSION NUMBER(S): [id number] ORDERING CLINICIAN: MARY SHELL FINDINGS: Two view [...] Juwan Petit 03/22/2023 9:24 AM Dictation workstation: [id number] [facility] Work Phone: [facility] Work Phone: Radiology Study observation (narrative) [facility] Work Phone: XR Cervical spine Single vie won 03-22-2023 As above. MACRO: None Signed by: Juwan Petit 03/22/2023 9:17 AM Dictation workstation: [id number] [facility] Interpreted By: Juwan Rhoades, STUDY: XR CERVICAL SPINE 1 VIEW; ; 03/21/2023 12:54 pm INDICATION: Signs/Symptoms:surgical procedure. COMPARISON: 03/21/2023 at 10:17 a.m. ACCESSION NUMBER(S): [id number] ORDERING CLINICIAN: MIREILLE ZURITA FINDINGS: Single lateral [...] COMPARISON: 03/21/2023 at 10:17 a.m. ACCESSION NUMBER(S): [id number] ORDERING CLINICIAN: MIREILLE ZURITA FINDINGS: Single lateral [...] Juwan Petit 03/22/2023 9:17 AM Dictation workstation: [id number] [facility] Work Phone: [facility] Work Phone: As above. MACRO: None Signed by: Juwan Petit 03/22/2023 9:13 AM Dictation workstation: [id number] [facility] Interpreted By: Juwan Rhoades, STUDY: XR CERVICAL SPINE 1 VIEW; ; 03/21/2023 10:16 am INDICATION: Signs/Symptoms:surgical procedure. COMPARISON: 03/21/2023 at 8:58 a.m. ACCESSION NUMBER(S): [id number] ORDERING CLINICIAN: MIREILLE ZURITA FINDINGS: Single lateral [...] COMPARISON: 03/21/2023 at 8:58 a.m. ACCESSION NUMBER(S): [id number] ORDERING CLINICIAN: MIREILLE ZURITA FINDINGS: Single lateral [...] Juwan Petit 03/22/2023 9:13 AM Dictation workstation: [id number] [facility] Work Phone: [facility] Work Phone: Linear metallic loca [...] Juwan Petit 03/22/2023 9:09 AM Dictation workstation: [id number] [facility] Interpreted By: Juwan Rhoades, STUDY: XR CERVICAL SPINE 1 VIEW; ; 03/21/2023 8:59 am INDICATION: Signs/Symptoms:Cervical spondylosis with myelopathy. COMPARISON: 03/21/2023 at 8:10 a.m. ACCESSION NUMBER(S): [id number] ORDERING CLINICIAN: MIREILLE ZURITA FINDINGS: Single lateral [...] COMPARISON: 03/21/2023 at 8:10 a.m. ACCESSION NUMBER(S): [id number] ORDERING CLINICIAN: MIREILLE ZURITA FINDINGS: Single lateral [...] Juwan Petit 03/22/2023 9:09 AM Dictation workstation: [id number] [facility] Work Phone: [facility] Work Phone: XR CERVICAL SPINE 1 VIEWon 1 05-21-2022 XR CERVICAL SPINE 1 VIEW Interpreted By: Juwan Petit, STUDY: XR CERVICAL SPINE 1 VIEW; ; 03/21/2023 12:54 pm INDICATION: Signs/Symptoms:surgical procedure. COMPARISON: 03/21/2023 at 10:17 a.m. ACCESSION NUMBER(S): [id number] ORDERING CLINICIAN: MIREILLE ZURITA FINDINGS: Single lateral [...] Juwan Petit 03/22/2023 9:17 AM Dictation workstation: [id number] [facility] XR CERVICAL SPINE 1 VIEW Interpreted By: Juwan Petit, STUDY: XR CERVICAL SPINE 1 VIEW; ; 03/21/2023 10:16 am INDICATION: Signs/Symptoms:surgical procedure. COMPARISON: 03/21/2023 at 8:58 a.m. ACCESSION NUMBER(S): [id number] ORDERING CLINICIAN: MIREILLE ZURITA FINDINGS: Single lateral [...] Juwan Petit 03/22/2023 9:13 AM Dictation workstation: [id number] [facility] XR CERVICAL SPINE 1 VIEW Interpreted By: Juwan Petit, STUDY: XR CERVICAL SPINE 1 VIEW; ; 03/21/2023 8:59 am INDICATION: Signs/Symptoms:Cervical spondylosis with myelopathy. COMPARISON: 03/21/2023 at 8:10 a.m. ACCESSION NUMBER(S): [id number] ORDERING CLINICIAN: MIREILLE ZURITA FINDINGS: Single lateral [...] Juwan Petit 03/22/2023 9:09 AM Dictation workstation: [id number] [facility] XR CERVICAL SPINE 1 VIEW Interpreted By: Juwan Petit, STUDY: XR CERVICAL SPINE 1 VIEW; ; 03/21/2023 8:11 am INDICATION: Signs/Symptoms:surgical procedure. COMPARISON: 04/25/2020 ACCESSION NUMBER(S): [id number] ORDERING CLINICIAN: MIREILLE ZURITA FINDINGS: Single lateral [...] Juwan Petit 03/21/2023 8:52 AM Dictation workstation: [id number] [facility] XR Cervical spine Single vie won 03-21-2023 Radiology Study observation (narrative) [facility] Work Phone: Radiology Study observation (narrative) [facility] Work Phone: Radiology Study observation (narrative) [facility] Work Phone: As above. MACRO: None Signed by: Juwan Petit 03/21/2023 8:52 AM Dictation workstation: [id number] [facility]AL Interpreted By: Juwan Rhoades, STUDY: XR CERVICAL SPINE 1 VIEW; ; 03/21/2023 8:11 am INDICATION: Signs/Symptoms:surgical procedure. COMPARISON: 04/25/2020 ACCESSION NUMBER(S): [id number] ORDERING CLINICIAN: MIREILLE ZURITA FINDINGS: Single lateral [...] otherwise of uncertain significance. MMODAL Juwan Petit, - 03/21/2023 Interpreted By: Juwan Petit, STUDY: XR CERVICAL SPINE 1 VIEW; ; 03/21/2023 8:11 am INDICATION: Signs/Symptoms:surgical procedure. COMPARISON: 04/25/2020 ACCESSION NUMBER(S): [id number] ORDERING CLINICIAN: MIREILLE ZURITA FINDINGS: Single lateral [...] Juwan Petit 03/21/2023 8:52 AM Dictation workstation: [id number] [facility] Work Phone: Radiology Study observation (narrative) [facility] Work Phone: XR Cervical spine Single vie wOrdered By: Juwan Petit on 03-21-2023 [facility] Work Phone: MRSA isol Org specific cx Ql (Nose)Ordered By: Cele Chatterjee on 03-16-2023 Interpretation and review of laboratory results Normal [facility] Staphylococcus sp identified Org specific cx Nom (Unsp spec) No Staphylococcus aureus isolated [facility] XR Chest 2 Viewson 3 No acute cardiopulmo nary disease. MACRO: none Signed by: Zeynep Sen 03/15/2023 12:07 PM Dictation workstation: [id number] [facility] Interpreted By: Zeynep Palafox, STUDY: XR CHEST 2 VIEWS; 03/14/2023 2:09 pm INDICATION: Signs/Symptoms:preop testing. COMPARISON: None. ACCESSION NUMBER(S): [id number] ORDERING CLINICIAN: MIREILLE ZURITA FINDINGS: Heart is [...] INDICATION: Signs/Symptoms:preop testing. COMPARISON: None. ACCESSION NUMBER(S): [id number] ORDERING CLINICIAN: MIREILLE ZURITA FINDINGS: Heart is [...] Zeynep Sen 03/15/2023 12:07 PM Dictation workstation: [id number] [facility] Work Phone: XR Chest 2 ViewsOrdered By: Zeynep Sen on 03-15-2023 [facility] Work Phone: CBC panel Auto (Bld)on 03-14 Erythrocyte distribution width (RBC) [Ratio] 13.0 % 11.5 - 14.5 % [facility] Hematocrit (Bld) [Volume fraction] 37.8 % 36.0 - 46.0 % [facility] Hemoglobin (Bld) [Mass/Vol] 12.2 g/dL 12.0 - 16.0 g/dL [facility] Interpretation and review of laboratory results Normal [facility] MCH (RBC) [Entitic mass] 30.1 pg 26.0 - 34.0 pg [facility] MCHC (RBC) [Mass/Vol] 32.3 g/dL 32.0 - 36.0 g/dL [facility] MCV (RBC) [Entitic vol] 93 fL 80 - 100 fL [facility] Nucleated RBC/100 WBC (Bld) [Ratio] 0.0 % [facility] Platelets (Bld) [#/Vol] 350 10*3/uL [facility] RBC (Bld) [#/Vol] 4.05 10*6/uL [facility] WBC (Bld) [#/Vol] 8.6 10*3/uL [facility] Erythrocyte distribution width (RBC) [Ratio] 13.0 % Normal 11.5-14.5 [facility] Comment on above: Performed By: #### 5 8410-2 #### MADELEINE ROSE ([id number]) [facility] ([facility]) [address] [place] [address] Hematocrit (Bld) [Volume fraction] 37.8 % Normal 36.0-46.0 [facility] Comment on above: Performed By: #### 5 8410-2 #### MADELEINE ROSE ([id number]) [facility] ([facility]) [address] [place] [address] Hemoglobin (Bld) [Mass/Vol] 12.2 g/dL Normal 12.0-16.0 [facility] Comment on above: Performed By: #### 5 8410-2 #### MADELEINE ROSE ([id number]) [facility] ([facility]) [address] [place] [address] MCH (RBC) [Entitic mass] 30.1 pg Normal 26.0-34.0 [facility] Comment on above: Performed By: #### 5 8410-2 #### MADELEINE ROSE ([id number]) [facility] ([facility]) [address] [place] [address] MCHC (RBC) [Mass/Vol] 32.3 g/dL Normal 32.0-36.0 [facility] Comment on above: Performed By: #### 5 8410-2 #### MADELEINE ROSE ([id number]) [facility] ([facility]) [address] [place] [address] MCV (RBC) [Entitic vol] 93 fL Normal 80-100 [facility] Comment on above: Performed By: #### 5 8410-2 #### MADELEINE ROSE ([id number]) [facility] ([facility]) [address] [place] [address] Nucleated RBC/100 WBC (Bld) [Ratio] 0.0 /100 WBCs Normal 0.0-0.0 [facility] Comment on above: Performed By: #### 5 8410-2 #### MADELEINE ROSE ([id number]) [facility] ([facility]) [address] [place] [address] Platelets (Bld) [#/Vol] 350 x10*3/uL Normal 150-450 [facility] Comment on above: Performed By: #### 5 8410-2 #### MADELEINE ROSE ([id number]) [facility] ([facility]) [address] [place] [address] RBC (Bld) [#/Vol] 4.05 x10*6/uL Normal 4.00-5.20 [facility] Comment on above: Performed By: #### 5 8410-2 #### MADELEINE ROSE ([id number]) [facility] ([facility]) [address] [place] [address] WBC (Bld) [#/Vol] 8.6 x10*3/uL Normal 4.4-11.3 [facility] Comment on above: Performed By: #### 5 8410-2 #### MADELEINE ROSE ([id number]) [facility] ([facility]) [address] [place] [address] Comprehensive metabolic 2000 panelon 03-14-2023 Albumin BCP dye [Mass/Vol] 4.3 g/dL 3.4 - 5.0 g/dL [facility] ALP [Catalytic activity/Vol] 51 U/L 33 - 136 U/L [facility] ALT With P-5'-P [Catalytic activity/Vol] 14 U/L 7 - 45 U/L [facility] Comment on above: Patients treated wit h Sulfasalazine may generate falsely decreased results for ALT. Anion gap [Moles/Vol] 10 mmol/L 10 - 2 0 mmol/L [facility] AST With P-5'-P [Catalytic activity/Vol] 13 U/L 9 - 39 U/L [facility] Bilirubin [Mass/Vol] 0.5 mg/dL 0.0 - 1 .2 mg/dL [facility] Calcium [Mass/Vol] 9.2 mg/dL 8.6 - 10. 3 mg/dL [facility] Chloride [Moles/Vol] 101 mmol/L 98 - 10 7 mmol/L [facility] CO2 [Moles/Vol] 29 mmol/L 21 - 32 mmol/L [facility] Creatinine [Mass/Vol] 0.95 mg/dL 0.50 - 1.05 mg/dL [facility] GFR/1.73 sq M.predicted MDRD (S/P/Bld) [Vol rate/Area] 65 mL/min/{1.73_m2} - PINF [facility] Comment on above: Calculations of gabriela mated GFR are performed using the 2020 CKD-EPI Study Refit equation without the race variable for the IDMS-Traceable creatinine methods. https://jasn.asnjournals.org/content/early//ASN.644731 6592 Glucose [Mass/Vol] 83 mg/dL 74 - 99 mg/dL [facility] Potassium [Moles/Vol] 4.2 mmol/L 3.5 - 5.3 mmol/L [facility] Protein [Mass/Vol] 6.4 g/dL 6.4 - 8.2 g/dL [facility] Sodium [Moles/Vol] 136 mmol/L 136 - 145 mmol/L [facility] Urea nitrogen [Mass/Vol] 21 mg/dL 6 - 23 mg/dL [facility] Albumin BCP dye [Mass/Vol] 4.3 g/dL Normal 3.4-5.0 [facility] Comment on above: Performed By: #### 2 4323-8 #### MADELEINE ROSE ([id number]) [facility] ([facility]) [address] [place] [address] ALP [Catalytic activity/Vol] 51 U/L Normal 33-136 [facility] Comment on above: Performed By: #### 2 4323-8 #### MADELEINE ROSE ([id number]) [facility] ([facility]) [address] [place] [address] ALT With P-5'-P [Catalytic activity/Vol] 14 U/L Normal 7-45 [facility] Comment on above: Result Comment: Lorena ents treated with Sulfasalazine may generate falsely decreased results for ALT. Performed By: #### 2 4323-8 #### MADELEINE ROSE ([id number]) [facility] ([facility]) [address] [place] [address] Anion gap [Moles/Vol] 10 mmol/L Normal 10-20 [facility] Comment on above: Performed By: #### 2 4323-8 #### MADELEINE ROSE ([id number]) [facility] ([facility]) [address] [place] [address] AST With P-5'-P [Catalytic activity/Vol] 13 U/L Normal 9-39 [facility] Comment on above: Performed By: #### 2 4323-8 #### MADELEINE ROSE ([id number]) [facility] ([facility]) [address] [place] [address] Bilirubin [Mass/Vol] 0.5 mg/dL Normal 0.0-1.2 [facility] Comment on above: Performed By: #### 2 4323-8 #### MADELEINE ROSE ([id number]) [facility] ([facility]) [address] [place] [address] Calcium [Mass/Vol] 9.2 mg/dL Normal 8.6-10.3 [facility] Comment on above: Performed By: #### 2 4323-8 #### MADELEINE ROSE ([id number]) [facility]) [address] [place] [address] Chloride [Moles/Vol] 101 mmol/L Normal 98-107 [facility] Comment on above: Performed By: #### 2 4323-8 #### MADELEINE ROSE ([id number]) [facility]) [address] [place] [address] CO2 [Moles/Vol] 29 mmol/L Normal 21-32 [facility] Comment on above: Performed By: #### 2 4323-8 #### MADELEINE ROSE ([id number]) [facility]) [address] [place] [address] Creatinine [Mass/Vol] 0.95 mg/dL Normal 0.50-1.05 [facility] Comment on above: Performed By: #### 2 4323-8 #### MADELEINE ROSE ([id number]) [facility]) [address] [place] [address] GFR/1.73 sq M.predicted MDRD (S/P/Bld) [Vol rate/Area] 65 mL/min/1.73m*2 Normal >60 [facility] Comment on above: Result Comment: Calc ulations of estimated GFR are performed using the 2020 CKD-EPI Study Refit equation without the race variable for the IDMS-Traceable creatinine methods. https://jasn.asnjournals.org/content/early//ASN.258318 6846 Performed By: #### 2 4323-8 #### MADELEINE ROSE ([id number]) [facility] ([facility]) [address] [place] [address] Glucose [Mass/Vol] 83 mg/dL Normal 74-99 [facility] Comment on above: Performed By: #### 2 4323-8 #### MADELEINE ROSE ([id number]) [facility] ([facility]) [address] [place] [address] Potassium [Moles/Vol] 4.2 mmol/L Normal 3.5-5.3 [facility] Comment on above: Performed By: #### 2 4323-8 #### MADELEINE ROSE ([id number]) [facility] ([facility]) [address] [place] [address] Protein [Mass/Vol] 6.4 g/dL Normal 6.4-8.2 [facility] Comment on above: Performed By: #### 2 4323-8 #### MADELEINE ROSE ([id number]) [facility] ([facility]) [address] [place] [address] Sodium [Moles/Vol] 136 mmol/L Normal 136-145 [facility] Comment on above: Performed By: #### 2 4323-8 #### MADELEINE ROSE ([id number]) [facility]) [address] [place] [address] Urea nitrogen [Mass/Vol] 21 mg/dL Normal 6-23 [facility] Comment on above: Performed By: #### 2 4323-8 #### MADELEINE ROSE ([id number]) [facility] ([facility]) [address] [place] [address] ECG 12-LEADon 03-14-2023 ECG 12-LEAD Ventricular Rate 63 Atrial Rate 63 P-R Interval 192 QRS Duration 84 Q-T Interval 406 QTC Calculation(Bazett) 415 P [place] 51 R [place] 52 T [place] 44 QRS Count 10 Q Onset 224 P Onset 128 P Offset 183 T Offset 427 QTC Fredericia 412 Diagnosis Normal sinus rhythm Normal ECG No previous ECGs available Confirmed by Camilo Parr ([id number]) on 03/28/2023 9:17:27 PM Normal [facility] No Panel Informationon 03-14 Interpretation and review of laboratory results Normal [facility] PT and aPTT panel Coag (PPP) on 03-14-2023 aPTT Coag (PPP) [Time] 29 s [facility] INR Coag (PPP) [Relative time] 1.0 {INR} 0.9 - 1.1 [facility] Interpretation and review of laboratory results Normal [facility] PT Coag (PPP) [Time] 11.0 s [facility] The APTT is no longe r used for monitoring Unfractionated Heparin Therapy. For monitoring Heparin Therapy, use the Heparin Assay. [facility] aPTT Coag (PPP) [Time] 29 s Normal 27-38 [facility] Comment on above: Order Comment: The A PTT is no longer used for monitoring Unfractionated Heparin Therapy. For monitoring Heparin Therapy, use the Heparin Assay. Performed By: #### 3 4529-8 #### MADELEINE ROSE ([id number]) [facility] ([facility]) [address] [place] [address] INR Coag (PPP) [Relative time] 1.0 Normal 0.9-1.1 [facility] Comment on above: Order Comment: The A PTT is no longer used for monitoring Unfractionated Heparin Therapy. For monitoring Heparin Therapy, use the Heparin Assay. Performed By: #### 3 4529-8 #### MADELEINE ROSE ([id number]) [facility] ([facility]) [address] [place] [address] PT Coag (PPP) [Time] 11.0 s Normal 9.8-12.8 [facility] Comment on above: Order Comment: The A PTT is no longer used for monitoring Unfractionated Heparin Therapy. For monitoring Heparin Therapy, use the Heparin Assay. Performed By: #### 3 4529-8 #### MADELEINE ROSE ([id number]) [facility] ([facility]) [address] [place] [address] Phosphateon 03-14-2023 Phosphate [Mass/Vol] 3.1 mg/dL Normal 2.5-4.9 [facility] Comment on above: Result Comment: The performance characteristics of phosphorus testing in heparinized plasma have been validated by the individual laboratory site where testing is performed. Testing on heparinized plasma is not approved by the FDA; however, such approval is not necessary. Performed By: #### 2 777-1 #### MADELEINE ROSE ([id number]) [facility] ([facility]) [address] [place] [address] Phosphoruson 03-14-2023 Phosphate [Mass/Vol] 3.1 mg/dL 2.5 - 4 .9 mg/dL [facility] Comment on above: The performance [...] Status: Final result Abnormal: No Resulting Lab: [facility] [address] [facility] [address] CULTURE No Staphylococcus aureus isolated [facility] Comment on above: Performed By: #### 5 2969-3 #### JULISSA Jarvis ([id number]) [facility] ([facility]) [address] [place] [address] XR CHEST 2 VIEWSon 3 XR CHEST 2 VIEWS Interpreted By: Zeynep Palafox, STUDY: XR CHEST 2 VIEWS; 03/14/2023 2:09 pm INDICATION: Signs/Symptoms:preop testing. COMPARISON: None. ACCESSION NUMBER(S): [id number] ORDERING CLINICIAN: MIREILLE ZURITA FINDINGS: Heart is [...] Zeynep Sen 03/15/2023 12:07 PM Dictation workstation: [id number] [facility] XR Chest 2 Viewson 3 Radiology Study observation (narrative) [facility] Work Phone: Blood Pressure Cuff [...] would like to proceed. 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 She also has a RN OUTPATIENT SURGERY shunt and and so we are going [...] would like to proceed. 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 She also has a RN OUTPATIENT SURGERY shunt and and so we are going [...] UT) Oral Tablet Vitals Vital Signs Recorded: [id number] 02:47PM Iwftgawbbdz29.9 F, Temporal Heart Rate69 Dsiwawib494, LUE, Sitting Qulhivkjg51, LUE, Sitting Blood Pressure Cuff SizeAdult Height5 ft 3 in Ecllqi539 lb BMI Qgogndhipj56.29 kg/m2 BSA Calculated1.81 Tobacco Useb) No PHQ (more content not included)... Normal [facility] Initial Visit (Neurosurgery) on 12-07-2022 Initial [...] has been experiencing. 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 [...] has been experiencing. 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 [...] spec) Not detected Normal NOT DETECTED [facility] Comment on above: Result Comment: This test is not yet approved or cleared by the [place] FDA. When there are no FDA-approved or cleared tests available, and other criteria are met, FDA can make tests available under an emergency access mechanism called an Emergency Use Authorization (EUA). The EUA for this test is supported by the [place] of Health and Human Service's (HHS's) declaration [...] SARS-CoV-2. Performed By: #### O BSCRN #### [facility] [address] [place] [address] Dr. Shobha Ruffin TSHon 07-21-2022 TSH 0.487 uIU/mL Normal 0.358-3.74 0 [facility] Comment on above: Performed By: #### O BSCRN #### [facility] [address] [place] [address] Dr. Shobha Ruffin VITAMIN B12on 07-21-2022 Cobalamin (Vitamin B12) [Mass/Vol] 554.0 pg/mL Normal 193.0-986. 0 [facility] Comment on above: Performed By: #### R ENAL URIC, MG #### [facility] [address] [place] [address] Dr. Shobha Ruffin PTH INTACTon 05-18-2022 PTH, Intact 29 pg/mL Normal 15-65 [facility] Comment on above: Performed By: #### R ENAL URIC, MG #### [facility] [address] [place] [address] Dr. Shobha Ruffin FERRITINon 05-17-2022 Ferritin [Mass/Vol] 55.0 ng/mL Normal 8.0-252.0 [facility] Comment on above: Performed By: #### R ENAL URIC, MG #### [facility] [address] [place] [address] Dr. Shobha Ruffin HEMOGRAM AND PLATELon 2022 Hematocrit (Bld) [Volume fraction] 35.6 % Critically low 36.0-48.0 [facility] Comment on above: Performed By: #### R ENAL, URIC, MG #### [facility] [address] [place] [address] Dr. Shobha Ruffin Hemoglobin (Bld) [Mass/Vol] 12.3 g/dL Normal 12.0-16.0 [facility] Comment on above: Performed By: #### R ENAL, URIC, MG #### [facility] [address] [place] [address] Dr. Shobha Ruffin MCH (RBC) [Entitic mass] 29.6 pg Normal 26.7-34.0 [facility] Comment on above: Performed By: #### R ENAL, URIC, MG #### [facility] [address] [place] [address] Dr. Shobha Ruffin MCHC (RBC) [Mass/Vol] 34.6 g/dL Normal 29.9-35.2 [facility] Comment on above: Performed By: #### R ENAL, URIC, MG #### [facility] [address] [place] [address] Dr. Shobha Ruffin MCV (RBC) [Entitic vol] 85.8 fL Normal 81.0-99.0 [facility] Comment on above: Performed By: #### R ENAL, URIC, MG #### [facility] [address] [place] [address] Dr. Shobha Ruffin PLT 338 103/ul Normal 150-450 [facility] Comment on above: Performed By: #### R ENAL, URIC, MG #### [facility] [address] [place] [address] Dr. Shobha Ruffin RBC 4.15 106/ul Critically low 4.20-5.40 [facility] Comment on above: Performed By: #### R ENAL, URIC, MG #### [facility] [address] [place] [address] Dr. Shobha Ruffin WBC 7.0 103/ul Normal 4.0-11.0 [facility] Comment on above: Performed By: #### R ENAL, URIC, MG #### [facility] [address] [place] [address] Dr. Shobha Ruffin IRON AND TIBCon 05-17-2022 % SATURATION 29.6 % Normal [facility] Comment on above: Performed By: #### R ENAL, URIC, MG #### [facility] [address] [place] [address] Dr. Shobha Ruffin Iron [Mass/Vol] 89.0 ug/dL Normal 50.0-170.0 [facility] Comment on above: Performed By: #### R ENAL, URIC, MG #### [facility] [address] [place] [address] Dr. Shobha Ruffin TIBC DIRECT 301.0 ug/dL Normal 250.0-450. 0 [facility] Comment on above: Performed By: #### R ENAL, URIC, MG #### [facility] [address] [place] [address] Dr. Shobha Ruffin MAGNESIUMon 05-17-2022 Magnesium [Mass/Vol] 2.2 mg/dL Normal 1.8-2.4 [facility] Comment on above: Performed By: #### R ENAL, URIC, MG #### [facility] [address] [place] [address] Dr. Shobha Ruffin RENAL FUNCTION PANELon 05-17 Albumin [Mass/Vol] 3.7 g/dL Normal 3.4-5.0 [facility] Comment on above: Performed By: #### R ENAL, URIC, MG #### [facility] [address] [place] [address] Dr. Shobha Ruffin Calcium [Mass/Vol] 9.1 mg/dL Normal 8.5-10.1 [facility] Comment on above: Performed By: #### R ENAL, URIC, MG #### [facility] [address] [place] [address] Dr. Shobha Ruffin Chloride [Moles/Vol] 100 mmol/L Normal 98-107 [facility] Comment on above: Performed By: #### R ENAL, URIC, MG #### [facility] [address] [place] [address] Dr. Shobha Ruffin CO2 [Moles/Vol] 31.0 mmol/L Normal 21.0-32.0 [facility] Comment on above: Performed By: #### R ENAL, URIC, MG #### [facility] [address] [address] [address] Shobha Ruffin Creatinine [Mass/Vol] 0.92 mg/dL Normal 0.55-1.02 [facility] Comment on above: Performed By: #### R ENAL, URIC, MG #### [facility] [address] [place] [address] Dr. Shobha Ruffin EGFR-AF LEBANESE >60 Normal >=60 [facility] Comment on above: Performed By: #### R ENAL, URIC, MG #### [facility] [facility] [address] [place] [address] Dr. Shboha Ruffin EGFR-NON AF LEBANESE >60 Normal >=60 [facility] Comment on above: Performed By: #### R ENAL, URIC, MG #### [facility] [address] [place] [address] Dr. Shobha Ruffin Glucose [Mass/Vol] 93 mg/dL Normal 74-106 [facility] Comment on above: Performed By: #### R ENAL, URIC, MG #### [facility] [address] [place] [address] Dr. Shobha Ruffin Phosphate [Mass/Vol] 3.7 mg/dL Normal 2.6-4.7 [facility] Comment on above: Performed By: #### R ENAL, URIC, MG #### [facility] [address] [place] [address] Dr. Shobha Ruffin Potassium [Moles/Vol] 3.9 mmol/L Normal 3.5-5.1 [facility] Comment on above: Performed By: #### R ENAL, URIC, MG #### [facility] [address] [address] [address] Shobha Ruffin Sodium [Moles/Vol] 138 mmol/L Normal 136-145 [facility] Comment on above: Performed By: #### R ENAL, URIC, MG #### [facility] [address] [place] [address] Dr. hSobha Ruffin Urea nitrogen [Mass/Vol] 19.0 mg/dL Critically high 7.0-18.0 [facility] Comment on above: Performed By: #### R ENAL, URIC, MG #### [facility] [address] [place] [address] Dr. Shobha Ruffin UA RANDOM W/MICROSCOPICon BACTERIA NONE SEEN Normal NONE SEEN [facility] Comment on above: Performed By: #### U AMIC #### [facility] [address] [place] [address] Dr. Shobha Ruffin Bilirubin Ql (U) Negative Normal NEGATIVE [facility] Comment on above: Performed By: #### U AMIC #### [facility] [address] [place] [address] Dr. Shobha Ruffin CAST NONE SEEN Normal NONE SEEN [facility] Comment on above: Performed By: #### U AMIC #### [facility] [address] [place] [address] Dr. Shobha Ruffin Clarity (U) SL CLOUDY Abnormal CLEAR [facility] Comment on above: Performed By: #### U AMIC #### [facility] [address] [place] [address] Dr. Shobha Ruffin Color (U) LT. YELLOW Normal YELLOW [facility] Comment on above: Performed By: #### U AMIC #### [facility] [address] [place] [address] Dr. Shobha Ruffin Crystals LM Nom (Urine sed) NONE SEEN Normal NONE SEEN [facility] Comment on above: Performed By: #### U AMIC #### [facility] [address] [place] [address] Dr. Shobha Ruffin Epithelial cells LM Ql (Urine sed) MODERATE Abnormal NONE SEEN /RARE [facility] Comment on above: Performed By: #### U AMIC #### [facility] [address] [address] [address] Shobha Ruffin Glucose Ql (U) Negative Normal NEGATIVE [facility] Comment on above: Performed By: #### U AMIC #### [facility] [address] [address] [address] Shobha Ruffin Hemoglobin Ql (U) Negative Normal NEGATIVE [facility] Comment on above: Performed By: #### U AMIC #### [facility] [address] [address] [address] Shobha Ruffin Ketones Ql (U) Negative Normal NEGATIVE [facility] Comment on above: Performed By: #### U AMIC #### [facility] [address] [address] [address] Shobha Ruffin LEUKOCYTES TRACE Abnormal NEGATIVE [facility] Comment on above: Performed By: #### U AMIC #### [facility] [address] [place] [address] Dr. Shobha Ruffin MUCOUS NONE SEEN Normal NONE SEEN [facility] Comment on above: Performed By: #### U AMIC #### [facility] [address] [address] [address] Shobha Ruffin Nitrite Ql (U) Negative Normal NEGATIVE [facility] Comment on above: Performed By: #### U AMIC #### [facility] [address] [place] [address] Dr. Shobha Ruffin pH (U) 7.5 [pH] Normal 5-9 [facility] Comment on above: Performed By: #### U AMIC #### [facility] [address] [place] [address] Dr. Shobha Ruffin RBC NONE SEEN Abnormal 0-2 [facility] Comment on above: Performed By: #### U AMIC #### [facility] [address] [place] [address] Dr. Shobha Ruffin SPEC GRAVITY 1.015 Normal 1.005-<=1. 025 [facility] Comment on above: Performed By: #### U AMIC #### [facility] [address] [place] [address] Dr. Shobha Ruffin UA PROTEIN Negative Normal NEGATIVE/ TRACE [facility] Comment on above: Performed By: #### U AMIC #### [facility] [address] [place] [address] Dr. Shobha Ruffin Urobilinogen Qn (U) 0.2 {Raul'U}/dL Normal 0.2 - 1. 0 [facility] Comment on above: Performed By: #### U AMIC #### [facility] [address] [place] [address] Dr. Shobha Ruffin WBC 0-2 Abnormal NONE SEEN [facility] Comment on above: Performed By: #### U AMIC #### [facility] [address] [place] [address] Dr. Shobha Ruffin URINE T PROTEIN CREAT RATIOo n 05-17-2022 Protein (U) [Mass/Vol] 20.5 mg/dL Critically high <=12.0 [facility] Comment on above: Performed By: #### O BSCRN #### [facility] [address] [place] [address] Dr. Shobha Ruffin UR PROT CREAT RAT 0.21 Normal [facility] Comment on above: Performed By: #### O BSCRN #### [facility] [address] [place] [address] Dr. Shobha Ruffin URINE CREAT 98.95 mg/dL Normal 20.00-300. 00 [facility] Comment on above: Performed By: #### O BSCRN #### [facility] [address] [place] [address] Dr. Shobha Ruffin VITAMIN D 25 OHon 05-17-2022 VIT D 25-OH 29.5 ng/mL Normal [facility] Comment on above: Performed By: #### R ENAL, URIC, MG #### [facility] [address] [place] [address] Dr. Shobha Ruffin VIT D RANGES SEE BELOW Normal [facility] Comment on above: Result Comment: <20 ng/mL Vit D deficient 20 - <30 ng/mL Vit D insufficient 30 - 100 ng/mL Vit D sufficient >100 ng/mL Potential Toxicity Performed By: #### R ENAL, URIC, MG #### [facility] [address] [place] [address] Dr. Shobha Ruffin CBC AUTO DIFFon 05-04-2022 BASO # 0.1 103/ul Normal 0.0-0.1 [facility] Comment on above: Performed By: #### O BSCRN #### [facility] [address] [place] [address] Dr. Shobha Ruffin Basophils/100 WBC (Bld) 1.0 % Normal 0.2-2.0 [facility] Comment on above: Performed By: #### O BSCRN #### [facility] [address] [place] [address] Dr. Shobha Ruffin EO # 0.2 103/ul Normal 0.0-0.7 [facility] Comment on above: Performed By: #### O BSCRN #### [facility] [address] [place] [address] Dr. Shobha Ruffin Eosinophils/100 WBC (Bld) 2.5 % Normal 0.9-7.0 [facility] Comment on above: Performed By: #### O BSCRN #### [facility] [address] [place] [address] Dr. Shobha Ruffin Erythrocyte distribution width (RBC) [Ratio] 13.3 % Normal 11.0-15.0 [facility] Comment on above: Performed By: #### O BSCRN #### [facility] [address] [place] [address] Dr. Shobha Ruffin Hematocrit (Bld) [Volume fraction] 39.7 % Normal 36.0-48.0 [facility] Comment on above: Performed By: #### O BSCRN #### [facility] [address] [place] [address] Dr. Shobha Ruffin Hemoglobin (Bld) [Mass/Vol] 12.9 g/dL Normal 12.0-16.0 [facility] Comment on above: Performed By: #### O BSCRN #### [facility] [address] [place] [address] Dr. Shobha Ruffin IG # 0.02 10e3/ul Normal 0.00-0.03 [facility] Comment on above: Performed By: #### O BSCRN #### [facility] [address] [place] [address] Dr. Shobha Ruffin IG % 0.3 % Normal 0.0-0.5 [facility] Comment on above: Performed By: #### O BSCRN #### [facility] [address] [place] [address] Dr. Shobha Ruffin LYMPH # 1.7 103/ul Normal 1.2-3.8 [facility] Comment on above: Performed By: #### O BSCRN #### [facility] [address] [place] [address] Dr. Shobha Ruffin Lymphocytes/100 WBC (Bld) 22.2 % Normal 20.5-60.0 [facility] Comment on above: Performed By: #### O BSCRN #### [facility] [address] [place] [address] Dr. Shobha Ruffin MANUAL DIFF REQ NO Normal [facility] Comment on above: Performed By: #### O BSCRN #### [facility] [address] [place] [address] Dr. Shobha Ruffin MCH (RBC) [Entitic mass] 29.3 pg Normal 26.7-34.0 [facility] Comment on above: Performed By: #### O BSCRN #### [facility] [address] [place] [address] Dr. Shobha Ruffin MCHC (RBC) [Mass/Vol] 32.5 g/dL Normal 29.9-35.2 [facility] Comment on above: Performed By: #### O BSCRN #### [facility] [address] [place] [address] Dr. Shobha Ruffin MCV (RBC) [Entitic vol] 90.2 fL Normal 81.0-99.0 [facility] Comment on above: Performed By: #### O BSCRN #### [facility] [address] [place] [address] Dr. Shobha Ruffin MONO # 0.8 103/ul Normal 0.3-0.8 [facility] Comment on above: Performed By: #### O BSCRN #### [facility] [address] [place] [address] Dr. Shobha Ruffin Monocytes/100 WBC (Bld) 10.5 % Normal 1.7-12.0 [facility] Comment on above: Performed By: #### O BSCRN #### [facility] [address] [place] [address] Dr. Shobha Ruffin NEUT # 4.9 103/ul Normal 1.4-6.5 [facility] Comment on above: Performed By: #### O BSCRN #### [facility] [address] [place] [address] Dr. Shobha Ruffin Neutrophils/100 WBC (Bld) 63.5 % Normal 43.0-75.0 [facility] Comment on above: Performed By: #### O BSCRN #### [facility] [address] [place] [address] Dr. Shobha Ruffin Platelet mean volume (Bld) [Entitic vol] 8.8 fL Critically low 9.5-13.5 [facility] Comment on above: Performed By: #### O BSCRN #### [facility] [address] [place] [address] Dr. Shobha Ruffin PLT 307 103/ul Normal 150-450 [facility] Comment on above: Performed By: #### O BSCRN #### [facility] [address] [place] [address] Dr. Shobha Ruffin RBC 4.40 106/ul Normal 4.20-5.40 [facility] Comment on above: Performed By: #### O BSCRN #### [facility] [address] [place] [address] Dr. Shobha Ruffin WBC 7.8 103/ul Normal 4.0-11.0 [facility] Comment on above: Performed By: #### O BSCRN #### [facility] [address] [place] [address] Dr. Shobha Ruffin LIPID PROFILEon 05-04-2022 CHOL-HDL RATIO NORM SEE BELOW Normal [facility] Comment on above: Result Comment: 3.3 - 4.4 LOW RISK 4.4 - 7.1 AVERAGE RISK 7.1 - 11.0 MODERATE RISK >11.0 HIGH RISK Performed By: #### L IPID, LIVER #### [facility] [address] [address] [address] Shobha Ruffin Cholesterol [Mass/Vol] 296 mg/dL Critically high <=200 [facility] Comment on above: Performed By: #### L IPID, LIVER #### [facility] [address] [address] [address] Shobha Ruffin Cholesterol in HDL [Mass/Vol] 102 mg/dL Critically high 40-60 [facility] Comment on above: Performed By: #### L IPID, LIVER #### [facility] [address] [place] [address] Dr. Shobha Ruffin Cholesterol in LDL [Mass/Vol] 178.6 mg/dL Normal [facility] Comment on above: Performed By: #### L IPID, LIVER #### [facility] [address] [address] [address] Shobha Rfufin Cholesterol.total/Cho lesterol in HDL [Mass ratio] 2.9 {ratio} Normal [facility] Comment on above: Performed By: #### L IPID, LIVER #### [facility] [address] [address] [address] Shobha Ruffin HDL NORMAL > or = 60 mg/dl - LO W CARDIOVASCULAR RISK <40 mg/dl - HIGH CARDIOVASCULAR RISK Normal [facility] Comment on above: Performed By: #### L IPID, LIVER #### [facility] [address] [address] [address] Shobha Ruffin LDL CALC NORMAL SEE BELOW Normal [facility] Comment on above: Result Comment: <100 mg/dl OPTIMAL 100 - 129 mg/dl NEAR OR ABOVE OPTIMAL 130 - 159 mg/dl BORDERLINE HIGH 160 - 189 mg/dl HIGH >190 mg/dl VERY HIGH Performed By: #### L IPID, LIVER #### [facility] [address] [address] [address] Shobha Ruffin Triglyceride [Mass/Vol] 77 mg/dL Normal <=150 [facility] Comment on above: Performed By: #### L IPID, LIVER #### [facility] [address] [place] [address] Dr. Shobha Ruffin VLDL CALC 15.4 mg/dL Normal [facility] Comment on above: Performed By: #### L IPID, LIVER #### [facility] [address] [place] [address] Dr. Shobha Ruffin LIVER PROFILEon 05-04-2022 Albumin [Mass/Vol] 3.6 g/dL Normal 3.4-5.0 [facility] Comment on above: Performed By: #### L IPID, LIVER #### [facility] [address] [place] [address] Dr. Shobha Ruffin Albumin/Globulin [Mass ratio] 1.0 {ratio} Normal [facility] Comment on above: Performed By: #### L IPID, LIVER #### [facility] [address] [place] [address] Dr. Shobha Ruffin ALP [Catalytic activity/Vol] 58 U/L Normal 46-116 [facility] Comment on above: Performed By: #### L IPID, LIVER #### [facility] [address] [place] [address] Dr. Shobha Ruffin ALT [Catalytic activity/Vol] 20 U/L Normal 14-59 [facility] Comment on above: Performed By: #### L IPID, LIVER #### [facility] [address] [place] [address] Dr. Shobha Ruffin AST [Catalytic activity/Vol] 16 U/L Normal 15-37 [facility] Comment on above: Performed By: #### L IPID, LIVER #### [facility] [address] [place] [address] Dr. Shobha Ruffin BILI, CONJUGATED 0.1 mg/dL Normal 0.0-0.2 [facility] Comment on above: Performed By: #### L IPID, LIVER #### [facility] [address] [place] [address] Dr. Shobha Ruffin Bilirubin [Mass/Vol] 0.7 mg/dL Normal 0.2-1.0 [facility] Comment on above: Performed By: #### L IPID, LIVER #### [facility] [address] [place] [address] Dr. Shobha Ruffin Globulin (S) [Mass/Vol] 3.5 g/dL Normal [facility] Comment on above: Performed By: #### L IPID, LIVER #### [facility] [address] [place] [address] Dr. Shobha Ruffin Protein [Mass/Vol] 7.1 g/dL Normal 6.4-8.2 [facility] Comment on above: Performed By: #### L IPID, LIVER #### [facility] [address] [place] [address] Dr. Shobha Ruffin CALCIUMon 02-08-2022 Calcium [Mass/Vol] 9.1 mg/dL Normal 8.5-10.1 [facility] Comment on above: Performed By: #### R ENAL, URIC, MG #### [facility] [address] [place] [address] Dr. Shobha Ruffin CREATININEon 02-08-2022 Creatinine [Mass/Vol] 0.95 mg/dL Normal 0.55-1.02 [facility] Comment on above: Performed By: #### O BSCRN #### [facility] [address] [place] [address] Dr. Shobha Ruffin EGFR-AF LEBANESE >60 Normal >=60 [facility] Comment on above: Performed By: #### O BSCRN #### [facility] [address] [place] [address] Dr. Shobha Ruffin EGFR-NON AF LEBANESE 58 mL/min/1.73m2 Critically low >=60 [facility] Comment on above: Performed By: #### O BSCRN #### [facility] [address] [place] [address] Dr. Shobha Ruffin OCC BLD IMMUNO SCREENon 01-08 OCCULT BLOOD Negative Normal NEGATIVE [facility] Comment on above: Performed By: #### O BSCRN #### [facility] [address] [place] [address] Dr. Shobha Ruffin T4, T3U, FTI LABCORPon 01-27 Free Thyroxine Index 2.2 Normal 1.2-4.9 [facility] Comment on above: Performed By: #### R ENAL, URIC, MG #### [facility] [address] [place] [address] Dr. Shobha Ruffin T3 Uptake 27 % Normal 24-39 [facility] Comment on above: Performed By: #### R ENAL, URIC, MG #### [facility] [address] [place] [address] Dr. Shobha Ruffin T4 [Mass/Vol] 8.0 ug/dL Normal 4.5-12.0 [facility] Comment on above: Performed By: #### R ENAL, URIC, MG #### [facility] [address] [place] [address] Dr. Shobha Ruffin CBC AUTO DIFFon 01-26-2022 BASO # 0.1 103/ul Normal 0.0-0.1 [facility] Comment on above: Performed By: #### R ENAL, URIC, MG #### [facility] [address] [place] [address] Dr. Shobha Ruffin Basophils/100 WBC (Bld) 0.9 % Normal 0.2-2.0 [facility] Comment on above: Performed By: #### R ENAL, URIC, MG #### [facility] [address] [place] [address] Dr. Shobha Ruffin EO # 0.3 103/ul Normal 0.0-0.7 [facility] Comment on above: Performed By: #### R ENAL, URIC, MG #### [facility] [address] [place] [address] Dr. Shobha Ruffin Eosinophils/100 WBC (Bld) 2.8 % Normal 0.9-7.0 [facility] Comment on above: Performed By: #### R ENAL, URIC, MG #### [facility] [address] [place] [address] Dr. Shobha Ruffin Erythrocyte distribution width (RBC) [Ratio] 13.6 % Normal 11.0-15.0 [facility] Comment on above: Performed By: #### R ENAL, URIC, MG #### [facility] [address] [place] [address] Dr. Shobha Ruffin Hematocrit (Bld) [Volume fraction] 35.4 % Critically low 36.0-48.0 [facility] Comment on above: Performed By: #### R ENAL, URIC, MG #### [facility] [address] [place] [address] Dr. Shobha Ruffin Hemoglobin (Bld) [Mass/Vol] 11.5 g/dL Critically low 12.0-16.0 [facility] Comment on above: Performed By: #### R ENAL, URIC, MG #### [facility] [address] [place] [address] Dr. Shobha Ruffin IG # 0.04 10e3/ul Critically high 0.00-0.03 [facility] Comment on above: Performed By: #### R ENAL, URIC, MG #### [facility] [address] [place] [address] Dr. Shobha Ruffin IG % 0.4 % Normal 0.0-0.5 [facility] Comment on above: Performed By: #### R ENAL, URIC, MG #### [facility] [address] [place] [address] Dr. Shobha Ruffin LYMPH # 1.9 103/ul Normal 1.2-3.8 [facility] Comment on above: Performed By: #### R ENAL, URIC, MG #### [facility] [address] [place] [address] Dr. Shobha Ruffin Lymphocytes/100 WBC (Bld) 20.9 % Normal 20.5-60.0 [facility] Comment on above: Performed By: #### R ENAL, URIC, MG #### [facility] [address] [place] [address] Dr. Shobha Ruffin MANUAL DIFF REQ NO Normal [facility] Comment on above: Performed By: #### R ENAL, URIC, MG #### [facility] [address] [place] [address] Dr. Shobha Ruffin MCH (RBC) [Entitic mass] 29.4 pg Normal 26.7-34.0 [facility] Comment on above: Performed By: #### R ENAL, URIC, MG #### [facility] [address] [place] [address] Dr. Shobha Ruffin MCHC (RBC) [Mass/Vol] 32.5 g/dL Normal 29.9-35.2 [facility] Comment on above: Performed By: #### R ENAL, URIC, MG #### [facility] [address] [place] [address] Dr. Shobha Ruffin MCV (RBC) [Entitic vol] 90.5 fL Normal 81.0-99.0 [facility] Comment on above: Performed By: #### R ENAL, URIC, MG #### [facility] [address] [place] [address] Dr. Shobha Ruffin MONO # 0.8 103/ul Normal 0.3-0.8 [facility] Comment on above: Performed By: #### R ENAL, URIC, MG #### [facility] [address] [place] [address] Dr. Shobha Ruffin Monocytes/100 WBC (Bld) 9.2 % Normal 1.7-12.0 [facility] Comment on above: Performed By: #### R ENAL, URIC, MG #### [facility] [address] [place] [address] Dr. Shobha Ruffin NEUT # 5.9 103/ul Normal 1.4-6.5 [facility] Comment on above: Performed By: #### R ENAL, URIC, MG #### [facility] [address] [place] [address] Dr. Shobha Ruffin Neutrophils/100 WBC (Bld) 65.8 % Normal 43.0-75.0 [facility] Comment on above: Performed By: #### R ENAL, URIC, MG #### [facility] [address] [place] [address] Dr. Shobha Ruffin Platelet mean volume (Bld) [Entitic vol] 8.9 fL Critically low 9.5-13.5 [facility] Comment on above: Performed By: #### R ENAL, URIC, MG #### [facility] [address] [address] [address] Shobha Ruffin PLT 346 103/ul Normal 150-450 [facility] Comment on above: Performed By: #### R ENAL, URIC, MG #### [facility] [address] [address] [address] Shobha Ruffin RBC 3.91 106/ul Critically low 4.20-5.40 [facility] Comment on above: Performed By: #### R ENAL, URIC, MG #### [facility] [address] [place] [address] Dr. Shobha Ruffin WBC 8.9 103/ul Normal 4.0-11.0 [facility] Comment on above: Performed By: #### R ENAL, URIC, MG #### [facility] [address] [place] [address] Dr. Shobha Ruffin GLYCOHEMOGLOBIN A1Con 2021 ADA RECOMMENDATION SEE BELOW Normal [facility] Comment on above: Result Comment: ADA RECOMMENDED LIMIT 4.0 - 6.0 ADA THERAPEUTIC TARGET < 7.0 ACTION SUGGESTED > 7.0 Performed By: #### O BSCRN #### [facility] [address] [place] [address] Dr. Shobha Ruffin Glucose [Mass/Vol] 123 mg/dL Normal [facility] Comment on above: Performed By: #### O BSCRN #### [facility] [address] [place] [address] Dr. Shobha Ruffin HbA1c (Bld) [Mass fraction] 5.9 % Normal 4.5-6.2 [facility] Comment on above: Performed By: #### O BSCRN #### [facility] [address] [place] [address] Dr. Shobha Ruffin IRONon 01-26-2022 Iron [Mass/Vol] 97.0 ug/dL Normal 50.0-170.0 [facility] Comment on above: Performed By: #### R ENAL, URIC, MG #### [facility] [address] [address] [address] Shobha Ruffin LIPID PROFILEon 01-26-2022 CHOL-HDL RATIO NORM SEE BELOW Normal [facility] Comment on above: Result Comment: 3.3 - 4.4 LOW RISK 4.4 - 7.1 AVERAGE RISK 7.1 - 11.0 MODERATE RISK >11.0 HIGH RISK Performed By: #### R ENAL, URIC, MG #### [facility] [address] [address] [address] Shobha Ruffin Cholesterol [Mass/Vol] 284 mg/dL Critically high <=200 [facility] Comment on above: Performed By: #### R ENAL, URIC, MG #### [facility] [address] [place] [address] Dr. Shobha Ruffin Cholesterol in HDL [Mass/Vol] 84 mg/dL Critically high 40-60 [facility] Comment on above: Performed By: #### R ENAL, URIC, MG #### [facility] [address] [address] [address] Shobha Ruffin Cholesterol in LDL [Mass/Vol] 184.6 mg/dL Normal [facility] Comment on above: Performed By: #### R ENAL, URIC, MG #### [facility] [address] [address] [address] Shobha Ruffin Cholesterol.total/Cho lesterol in HDL [Mass ratio] 3.4 {ratio} Normal [facility] Comment on above: Performed By: #### R ENAL, URIC, MG #### [facility] [address] [address] [address] Shobha Ruffin HDL NORMAL > or = 60 mg/dl - LO W CARDIOVASCULAR RISK <40 mg/dl - HIGH CARDIOVASCULAR RISK Normal [facility] Comment on above: Performed By: #### R ENAL, URIC, MG #### [facility] [address] [address] [address] Shobha Ruffin LDL CALC NORMAL SEE BELOW Normal [facility] Comment on above: Result Comment: <100 mg/dl OPTIMAL 100 - 129 mg/dl NEAR OR ABOVE OPTIMAL 130 - 159 mg/dl BORDERLINE HIGH 160 - 189 mg/dl HIGH >190 mg/dl VERY HIGH Performed By: #### R ENAL, URIC, MG #### [facility] [address] [place] [address] Dr. Shobha Ruffin Triglyceride [Mass/Vol] 77 mg/dL Normal <=150 [facility] Comment on above: Performed By: #### R ENAL, URIC, MG #### [facility] [address] [place] [address] Dr. Shobha Ruffin VLDL CALC 15.4 mg/dL Normal [facility] Comment on above: Performed By: #### R ENAL, URIC, MG #### [facility] [address] [place] [address] Dr. Shobha Ruffin PROF 14(COMP METB)on 022 Albumin [Mass/Vol] 3.5 g/dL Normal 3.4-5.0 [facility] Comment on above: Performed By: #### R ENAL, URIC, MG #### [facility] [address] [place] [address] Dr. Shobha Ruffin Albumin/Globulin [Mass ratio] 1.1 {ratio} Normal [facility] Comment on above: Performed By: #### R ENAL, URIC, MG #### [facility] [address] [place] [address] Dr. Shobha Ruffin ALP [Catalytic activity/Vol] 79 U/L Normal 46-116 [facility] Comment on above: Performed By: #### R ENAL, URIC, MG #### [facility] [address] [place] [address] Dr. Shobha Ruffin ALT [Catalytic activity/Vol] 28 U/L Normal 14-59 [facility] Comment on above: Performed By: #### R ENAL, URIC, MG #### [facility] [address] [place] [address] Dr. Shobha Ruffin Anion gap [Moles/Vol] 9.3 mmol/L Normal [facility] Comment on above: Performed By: #### R ENAL, URIC, MG #### [facility] [address] [address] [address] Shobha Ruffin AST [Catalytic activity/Vol] 12 U/L Critically low 15-37 [facility] Comment on above: Performed By: #### R ENAL, URIC, MG #### [facility] [address] [place] [address] Dr. Shobha Ruffin Bilirubin [Mass/Vol] 0.6 mg/dL Normal 0.2-1.0 [facility] Comment on above: Performed By: #### R ENAL, URIC, MG #### [facility] [address] [place] [address] Dr. Shobha Ruffin Calcium [Mass/Vol] 9.0 mg/dL Normal 8.5-10.1 [facility] Comment on above: Performed By: #### R ENAL, URIC, MG #### [facility] [address] [place] [address] Dr. Shobha Ruffin Chloride [Moles/Vol] 103 mmol/L Normal 98-107 [facility] Comment on above: Performed By: #### R ENAL, URIC, MG #### [facility] [address] [address] [address] Shobha Ruffin CO2 [Moles/Vol] 28.9 mmol/L Normal 21.0-32.0 [facility] Comment on above: Performed By: #### R ENAL, URIC, MG #### [facility] [address] [place] [address] Dr. Shobha Ruffin Creatinine [Mass/Vol] 1.02 mg/dL Normal 0.55-1.02 [facility] Comment on above: Performed By: #### R ENAL, URIC, MG #### [facility] [address] [place] [address] Dr. Shobha Ruffin EGFR-AF LEBANESE >60 Normal >=60 [facility] Comment on above: Performed By: #### R ENAL, URIC, MG #### [facility] [address] [address] [address] Shobha Ruffin EGFR-NON AF LEBANESE 54 mL/min/1.73m2 Critically low >=60 [facility] Comment on above: Performed By: #### R ENAL, URIC, MG #### [facility] [address] [place] [address] Dr. Shobha Ruffin Globulin (S) [Mass/Vol] 3.3 g/dL Normal [facility] Comment on above: Performed By: #### R ENAL, URIC, MG #### [facility] [address] [place] [address] Dr. Shobha Ruffin Glucose [Mass/Vol] 100 mg/dL Normal 74-106 [facility] Comment on above: Performed By: #### R ENAL, URIC, MG #### [facility] [address] [place] [address] Dr. Shobha Ruffin Potassium [Moles/Vol] 4.2 mmol/L Normal 3.5-5.1 [facility] Comment on above: Performed By: #### R ENAL, URIC, MG #### [facility] [address] [place] [address] Dr. Shobha Ruffin Protein [Mass/Vol] 6.8 g/dL Normal 6.4-8.2 [facility] Comment on above: Performed By: #### R ENAL, URIC, MG #### [facility] [address] [place] [address] Dr. Shobha Ruffin Sodium [Moles/Vol] 137 mmol/L Normal 136-145 [facility] Comment on above: Performed By: #### R ENAL, URIC, MG #### [facility] [address] [place] [address] Dr. Shobha Ruffin Urea nitrogen [Mass/Vol] 20.0 mg/dL Critically high 7.0-18.0 [facility] Comment on above: Performed By: #### R ENAL, URIC, MG #### [facility] [address] [place] [address] Dr. Shobha Ruffin Urea nitrogen/Creatinine [Mass ratio] 19.6 mg/mg Normal [facility] Comment on above: Performed By: #### R ENAL, URIC, MG #### [facility] [address] [address] [address] Shobha Ruffin TSHon 01-26-2021 TSH 0.649 uIU/mL Normal 0.358-3.74 0 [facility] Comment on above: Performed By: #### R KATIANA BROWN MG #### [facility] [address] [address] [address] Shobha Ruffin XR LSPINE MIN 4 [...] ROSA BELLO Date: 2022-01-26 10:35 Normal [facility] SARS-CoV-2 (COVID-19) RNA CONRADO+probe Ql (Unsp spec) Detected Critically abnormal NOT DETECTED [facility] Comment on above: Result Comment: This test is not yet approved or cleared by the [place] FDA. When there are no FDA-approved or cleared tests available, and other criteria are met, FDA can make tests available under an emergency access mechanism called an Emergency Use Authorization (EUA). The EUA for this test is supported by the [place] of Health and Human Service's (HHS's) declaration [...] used). Performed By: #### C VDTB #### [facility] [address] [address] [address] Shobha Jaramillo 12-23-2021 CNOV Office Visit ([id number] ) RUSSELMARY M ([id number]) 1950 F Date Time Provider Department 12/23/21 10:00 AM FREDA POP [id number] During your visit today, we recorded the following information about you: Temperature Pulse Blood pressure Weight 97.2 degrees 58/minute 147/55 73.9 kg Height 1.6 m Freda Pop APRN.CNP 12/23/2021 10:45 AM Signed GENERAL SURGERY CLINIC FOLLOW UP NOTE Clinic Date: 12/23/2021 Mary Goode, 71 year old [address] [place] [id number] CHIEF COMPLAINT: Patient presents with: Post Op [...] Freda Pop APRN.CNP General Surgery Digestive [facility] [place] December 22, 2021 Joan Grimaldo MA 12/23/2021 [...] activity as tolerated Referring Provider: ATIF MENDEZ [[id number]] Allergies As of Date: 12/23/2021 (No Known Allergies) Date Reviewed: 12/23/2021 Reviewed by: Freda Pop APRN.CNP - Fully Assessed Reason for Visit: (more content not included)... [facility] 11-27-2021 PTH, Intact 36 pg/mL Normal 15-65 [facility] Comment on above: Performed By: #### P THINT #### [facility] [address] [address] [address] Shobha Ruffin FERRITINon 11-26-2021 Ferritin [Mass/Vol] 122.0 ng/mL Normal 8.0-252.0 [facility] Comment on above: Performed By: #### O BSCRN #### [facility] [address] [address] [address] Shobha Ruffin HEMOGRAM AND PLATELon 2021 Hematocrit (Bld) [Volume fraction] 36.0 % Normal 36.0-48.0 [facility] Comment on above: Performed By: #### H H #### [facility] [address] [place] [address] Dr. Shobha Ruffin Hemoglobin (Bld) [Mass/Vol] 11.8 g/dL Critically low 12.0-16.0 [facility] Comment on above: Performed By: #### H H #### [facility] [address] [place] [address] Dr. Sohbha Ruffin MCH (RBC) [Entitic mass] 29.7 pg Normal 26.7-34.0 [facility] Comment on above: Performed By: #### H H #### [facility] [address] [place] [address] Dr. Shobha Ruffin MCHC (RBC) [Mass/Vol] 32.8 g/dL Normal 29.9-35.2 [facility] Comment on above: Performed By: #### H H #### [facility] [address] [place] [address] Dr. Shobha Ruffin MCV (RBC) [Entitic vol] 90.7 fL Normal 81.0-99.0 [facility] Comment on above: Performed By: #### H H #### [facility] [address] [place] [address] Dr. Shobha Ruffin PLT 417 103/ul Normal 150-450 [facility] Comment on above: Performed By: #### H H #### [facility] [address] [place] [address] Dr. Shobha Ruffin RBC 3.97 106/ul Critically low 4.20-5.40 [facility] Comment on above: Performed By: #### H H #### [facility] [address] [place] [address] Dr. Shobha Ruffin WBC 7.9 103/ul Normal 4.0-11.0 [facility] Comment on above: Performed By: #### H H #### [facility] [address] [place] [address] Dr. Shobha Ruffin IRON AND TIBCon 11-26-2021 % SATURATION 28.2 % Normal [facility] Comment on above: Performed By: #### O BSCRN #### [facility] [address] [address] [address] Shobha Ruffin Iron [Mass/Vol] 83.0 ug/dL Normal 50.0-170.0 [facility] Comment on above: Performed By: #### O BSCRN #### [facility] [address] [place] [address] Dr. Shobha Ruffin TIBC DIRECT 294.0 ug/dL Normal 250.0-450. 0 [facility] Comment on above: Performed By: #### O BSCRN #### [facility] [address] [place] [address] Dr. Shobha Ruffin MAGNESIUMon 11-26-2021 Magnesium [Mass/Vol] 1.8 mg/dL Normal 1.8-2.4 [facility] Comment on above: Performed By: #### R ENAL, URIC, MG #### [facility] [address] [place] [address] Dr. Shobha Ruffin RENAL FUNCTION PANELon 11-26 Albumin [Mass/Vol] 3.6 g/dL Normal 3.4-5.0 [facility] Comment on above: Performed By: #### R ENAL, URIC, MG #### [facility] [address] [place] [address] Dr. Shobha Ruffin Calcium [Mass/Vol] 9.3 mg/dL Normal 8.5-10.1 [facility] Comment on above: Performed By: #### R ENAL, URIC, MG #### [facility] [address] [place] [address] Dr. Shobha Ruffin Chloride [Moles/Vol] 99 mmol/L Normal 98-107 [facility] Comment on above: Performed By: #### R ENAL, URIC, MG #### [facility] [address] [place] [address] Dr. Shobha Ruffin CO2 [Moles/Vol] 28.6 mmol/L Normal 21.0-32.0 [facility] Comment on above: Performed By: #### R ENAL, URIC, MG #### [facility] [address] [place] [address] Dr. Shobha Ruffin Creatinine [Mass/Vol] 1.18 mg/dL Critically high 0.55-1.02 [facility] Comment on above: Performed By: #### R ENAL, URIC, MG #### [facility] [address] [place] [address] Dr. Shobha Ruffin EGFR-AF LEBANESE 55 mL/min/1.73m2 Critically low >=60 [facility] Comment on above: Performed By: #### R ENAL, URIC, MG #### [facility] [address] [place] [address] Dr. Shobha Ruffin EGFR-NON AF LEBANESE 45 mL/min/1.73m2 Critically low >=60 [facility] Comment on above: Performed By: #### R ENAL, URIC, MG #### [facility] [address] [place] [address] Dr. Shobha Ruffin Glucose [Mass/Vol] 90 mg/dL Normal 74-106 [facility] Comment on above: Performed By: #### R ENAL, URIC, MG #### [facility] [address] [place] [address] Dr. Shobha Ruffin Phosphate [Mass/Vol] 4.8 mg/dL Critically high 2.6-4.7 [facility] Comment on above: Performed By: #### R ENAL, URIC, MG #### [facility] [address] [place] [address] Dr. Shobha Ruffin Potassium [Moles/Vol] 4.1 mmol/L Normal 3.5-5.1 [facility] Comment on above: Performed By: #### R ENAL, URIC, MG #### [facility] [address] [place] [address] Dr. Shobha Ruffin Sodium [Moles/Vol] 136 mmol/L Normal 136-145 [facility] Comment on above: Performed By: #### R ENAL, URIC, MG #### [facility] [address] [place] [address] Dr. Shobha Ruffin Urea nitrogen [Mass/Vol] 20.0 mg/dL Critically high 7.0-18.0 [facility] Comment on above: Performed By: #### R ENAL, URIC, MG #### [facility] [address] [address] [address] Shobha Ruffin UA RANDOM W/MICROSCOPICon BACTERIA TRACE Abnormal NONE SEEN [facility] Comment on above: Performed By: #### R ENAL, URIC, MG #### [facility] [address] [place] [address] Dr. Shobha Ruffin Bilirubin Ql (U) Negative Normal NEGATIVE [facility] Comment on above: Performed By: #### R ENAL, URIC, MG #### [facility] [address] [place] [address] Dr. Shobha Ruffin CAST SEEN Abnormal NONE SEEN [facility] Comment on above: Performed By: #### R ENAL, URIC, MG #### [facility] [address] [place] [address] Dr. Shobha Ruffin Clarity (U) CLEAR Normal CLEAR [facility] Comment on above: Performed By: #### R ENAL, URIC, MG #### [facility] [address] [place] [address] Dr. Shobha Ruffin Color (U) YELLOW Normal YELLOW [facility] Comment on above: Performed By: #### R ENAL, URIC, MG #### [facility] [address] [place] [address] Dr. Shobha Ruffin Crystals LM Nom (Urine sed) NONE SEEN Normal NONE SEEN [facility] Comment on above: Performed By: #### R ENAL, URIC, MG #### [facility] [address] [place] [address] Dr. Shobha Ruffin Epithelial cells LM Ql (Urine sed) FEW Abnormal NONE SEEN /RARE [facility] Comment on above: Performed By: #### R ENAL, URIC, MG #### [facility] [address] [place] [address] Dr. Shobha Ruffin Glucose Ql (U) Negative Normal NEGATIVE [facility] Comment on above: Performed By: #### R ENAL, URIC, MG #### [facility] [address] [place] [address] Dr. Shobha Ruffin Hemoglobin Ql (U) Negative Normal NEGATIVE [facility] Comment on above: Performed By: #### R ENAL, URIC, MG #### [facility] [address] [place] [address] Dr. Shobha Ruffin HYALINE CAST RARE Normal [facility] Comment on above: Performed By: #### R ENAL, URIC, MG #### [facility] [address] [address] [address] Shobha Ruffin Ketones Ql (U) TRACE Abnormal NEGATIVE [facility] Comment on above: Performed By: #### R ENAL, URIC, MG #### [facility] [address] [address] [address] Shobha Ruffin LEUKOCYTES TRACE Abnormal NEGATIVE [facility] Comment on above: Performed By: #### R ENAL, URIC, MG #### [facility] [address] [place] [address] Dr. Shobha Ruffin MUCOUS TRACE Abnormal NONE SEEN [facility] Comment on above: Performed By: #### R ENAL, URIC, MG #### [facility] [address] [place] [address] Dr. Shobha Ruffin Nitrite Ql (U) Negative Normal NEGATIVE [facility] Comment on above: Performed By: #### R ENAL, URIC, MG #### [facility] [address] [place] [address] Dr. Shobha Ruffin pH (U) 7.0 [pH] Normal 5-9 [facility] Comment on above: Performed By: #### R ENAL, URIC, MG #### [facility] [address] [place] [address] Dr. Shobha Ruffin RBC 0-2 Normal 0-2 [facility] Comment on above: Performed By: #### R ENAL, URIC, MG #### [facility] [address] [place] [address] Dr. Shobha Ruffin SPEC GRAVITY 1.015 Normal 1.005-<=1. 025 [facility] Comment on above: Performed By: #### R ENAL, URIC, MG #### [facility] [address] [address] [address] Shobha Ruffin UA PROTEIN Negative Normal NEGATIVE/ TRACE [facility] Comment on above: Performed By: #### R ENAL, URIC, MG #### [facility] [address] [place] [address] Dr. Shobha Ruffin Urobilinogen Qn (U) 1.0 {Raul'U}/dL Normal 0.2 - 1. 0 [facility] Comment on above: Performed By: #### R ENAL, URIC, MG #### [facility] [address] [place] [address] Dr. Shobha Ruffin WBC 2-5 Abnormal NONE SEEN [facility] Comment on above: Performed By: #### R ENAL, URIC, MG #### [facility] [address] [place] [address] Dr. Shobha Ruffin URIC ACID SERUMon 11-26-2021 Urate [Mass/Vol] 3.2 mg/dL Normal 2.6-6.0 [facility] Comment on above: Performed By: #### R ENAL, URIC, MG #### [facility] [address] [place] [address] Dr. Shobha Ruffin URINE T PROTEIN CREAT RATIOo n 11-26-2021 Protein (U) [Mass/Vol] 24.2 mg/dL Critically high <=12.0 [facility] Comment on above: Performed By: #### R ENAL, URIC, MG #### [facility] [address] [place] [address] Dr. Shobha Ruffin UR PROT CREAT RAT 0.16 Normal [facility] Comment on above: Performed By: #### R ENAL, URIC, MG #### [facility] [address] [place] [address] Dr. Shobha Ruffin URINE CREAT 152.18 mg/dL Normal 20.00-300. 00 [facility] Comment on above: Performed By: #### R ENAL, URIC, MG #### [facility] [address] [place] [address] Dr. Shobha Ruffin VITAMIN D 25 OHon 11-26-2021 VIT D 25-OH 38.4 ng/mL Normal [facility] Comment on above: Performed By: #### O BSCRN #### [facility] [address] [place] [address] Dr. Shobha Ruffin VIT D RANGES SEE BELOW Normal [facility] Comment on above: Result Comment: <20 ng/mL Vit D deficient 20 - <30 ng/mL Vit D insufficient 30 - 100 ng/mL Vit D sufficient >100 ng/mL Potential Toxicity Performed By: #### O BSCRN #### [facility] [address] [place] [address] Dr. Shobha Ruffin Basic metabolic 2000 panelon 11-17-2021 Anion gap [Moles/Vol] 14 mmol/L Normal 9-18 [facility] Comment on above: Order Comment: Speci men Type: BLOOD SPECIMEN Ordering Facility: [facility] Address: [address] [place] [address] Performed By: #### 1 9123-9, 62781-6, 2776-05 #### [facility] CLIA [id number] [address] [place] [address] [place] Calcium [Mass/Vol] 9.6 mg/dL Normal 8.5-10.2 [facility] Comment on above: Order Comment: Speci men Type: BLOOD SPECIMEN Ordering Facility: [facility] Address: [address] [place] [address] Performed By: #### 1 9123-9, 31579-0, 2776- #### [facility] CLIA [id number] [address] [place] [address] [place] Chloride [Moles/Vol] 95 mmol/L Low 97-105 [facility] Comment on above: Order Comment: Speci men Type: BLOOD SPECIMEN Ordering Facility: [facility] Address: [address] [place] [address] Performed By: #### 1 9123-9, 57050-7, 2776- #### [facility] CLIA [id number] [address] [place] [address] [place] CO2 [Moles/Vol] 23 mmol/L Normal 22-30 [facility] Comment on above: Order Comment: Specdung men Type: BLOOD SPECIMEN Ordering Facility: [facility] Address: [address] [place] [address] Performed By: #### 1 9123-9, 26470-0, 2776-05 #### [facility] CLIA [id number] [place] [address] [place] Creatinine [Mass/Vol] 0.91 mg/dL Normal 0.58-0.96 [facility] Comment on above: Order Comment: Speci men Type: BLOOD SPECIMEN Ordering Facility: [facility] Address: [address] [place] [address] Performed By: #### 1 9123-9, 29038-6, 2776-05 #### [facility] CLIA [id number] [address] [place] [address] [place] ESTIMATED GLOMERULAR FILTRATION RATE 69 mL/min/1.73m??? Normal >=60 [facility] Comment on above: Order Comment: Param men Type: BLOOD SPECIMEN Ordering Facility: [facility] Address: [address] [place] [address] Result Comment: Gabriela mated Glomerular Filtration Rate [...] actual GFR. Performed By: #### 1 9123-9, 75910-5, 2776-05 #### [facility] CLIA [id number] [address] [place] [address] [place] Glucose [Mass/Vol] 110 mg/dL High 74-99 [facility] Comment on above: Order Comment: Param men Type: BLOOD SPECIMEN Ordering Facility: [facility] Address: [address] [place] [address] Result Comment: The [place] [employer] (ADA) provides guidance for cutoff [...] Standards of Medical Care in Diabetes 2016, [place] [employer]. Diabetes Care. 2016.39(Suppl 1). Performed By: #### 1 9123-9, 15247-6, 2776-05 #### [facility] CLIA [id number] [address] [place] [address] [place] Potassium [Moles/Vol] 3.6 mmol/L Low 3.7-5.1 [facility] Comment on above: Order Comment: Param jraquin Type: BLOOD SPECIMEN Ordering Facility: [facility] Address: [address] [place] [address] Performed By: #### 1 9123-9, 71122-1, 2776-05 #### [facility] CLIA [id number] [address] [place] [address] [place] Sodium [Moles/Vol] 132 mmol/L Low 136-144 [facility] Comment on above: Order Comment: Param jarquin Type: BLOOD SPECIMEN Ordering Facility: [facility] Address: [address] [place] [address] Performed By: #### 1 9123-9, 14228-6, 2776-05 #### [facility] CLIA [id number] [address] [place] [address] [place] Urea nitrogen [Mass/Vol] 13 mg/dL Normal 7-21 [facility] Comment on above: Order Comment: Param jarquin Type: BLOOD SPECIMEN Ordering Facility: [facility] Address: [address] [address] Performed By: #### 1 9123-9, 74759-1, 2776- #### [facility] CLIA [id number] [place] [address] [place] CBC W Auto Differential pane l (Bld)on 11-17-2021 Basophils (Bld) [#/Vol] 10*3/uL Normal <0.11 [facility] Comment on above: Order Comment: Speci men Type: BLOOD SPECIMENOrdering Facility: [facility] Address: [address] [place] [address] Performed By: #### 5 7021-8 ####[facility] [id number] [place] [address] [place] Basophils/100 WBC (Bld) 0.1 % Normal [facility] Comment on above: Order Comment: Speci men Type: BLOOD SPECIMENOrdering Facility: [facility] Address: [address] [place] [address] Performed By: #### 5 7021-8 ####[facility] [id number] [place] [address] [place] Differential cell count method Nom (Bld) Auto Normal [facility] Comment on above: Order Comment: Speci men Type: BLOOD SPECIMENOrdering Facility: [facility] Address: [address] [place] [address] Performed By: #### 5 7021-8 ####[facility]IA [id number] [place] [address] [place] Eosinophils (Bld) [#/Vol] 10*3/uL Normal <0.46 [facility] Comment on above: Order Comment: Speci men Type: BLOOD SPECIMENOrdering Facility: [facility] Address: [address] [place] [address] Performed By: #### 5 7021-8 ####[facility]CLIA [id number] [address] [place] Eosinophils/100 WBC (Bld) 0.0 % Normal [facility] Comment on above: Order Comment: Speci men Type: BLOOD SPECIMENOrdering Facility: [facility] Address: [address] [place] [address] Performed By: #### 5 7021-8 ####[facility]ATORYCLIA [id number] [address] [place] Erythrocyte distribution width (RBC) [Ratio] 12.6 % Normal 11.5-15.0 [facility] Comment on above: Order Comment: Speci men Type: BLOOD SPECIMENOrdering Facility: [facility] Address: [address] [place] [address] Performed By: #### 5 7021-8 ####[facility] LABORATORYCLIA [id number] [address] [place] Hematocrit (Bld) [Volume fraction] 39.9 % Normal 36.0-46.0 [facility] Comment on above: Order Comment: Speci men Type: BLOOD SPECIMENOrdering Facility: [facility] Address: [address] [place] [address] Performed By: #### 5 7021-8 ####[facility]IA [id number] [address] [place] Hemoglobin (Bld) [Mass/Vol] 13.4 g/dL Normal 11.5-15.5 [facility] Comment on above: Order Comment: Speci men Type: BLOOD SPECIMENOrdering Facility: [facility] Address: [address] [place] [address] Performed By: #### 5 7021-8 ####[facility] LABORATORYCLIA [id number] [address] [place] IMMATURE GRAN % 0.4 % Normal [facility] Comment on above: Order Comment: Speci men Type: BLOOD SPECIMENOrdering Facility: [facility] Address: [address] [place] [address] Performed By: #### 5 7021-8 ####[facility]IA [id number] [address] IMMATURE GRAN ABS 0.04 k/uL Normal <0.10 [facility] Comment on above: Order Comment: Speci men Type: BLOOD SPECIMENOrdering Facility: [facility] Address: [address] [place] [address] Performed By: #### 5 7021-8 ####[facility] LABORATORYCLIA [id number] [address] [place] Lymphocytes (Bld) [#/Vol] 1.25 10*3/uL Normal 1.00-4.00 [facility] Comment on above: Order Comment: Speci men Type: BLOOD SPECIMENOrdering Facility: [facility] Address: [address] [place] [address] Performed By: #### 5 7021-8 ####[facility] LABORATORYCLIA [id number] [address] STATES [facility] Lymphocytes/100 WBC (Bld) 11.6 % Normal [facility] Comment on above: Order Comment: Speci men Type: BLOOD SPECIMENOrdering Facility: [facility] Address: [address] [place] [address] Performed By: #### 5 7021-8 ####[facility] LABORATORYCLIA [id number] [address] [place] MCH (RBC) [Entitic mass] 29.4 pg Normal 26.0-34.0 [facility] Comment on above: Order Comment: Speci men Type: BLOOD SPECIMENOrdering Facility: [facility] Address: [address] [place] [address] Performed By: #### 5 7021-8 ####[facility] LABORATORYCLIA [id number] [place] [address] [place] MCHC (RBC) [Mass/Vol] 33.6 g/dL Normal 30.5-36.0 [facility] Comment on above: Order Comment: Speci men Type: BLOOD SPECIMENOrdering Facility: [facility] Address: [address] [place] [address] Performed By: #### 5 7021-8 ####[facility] LABORATORYCLIA [id number] [address] [place] MCV (RBC) [Entitic vol] 87.5 fL Normal 80.0-100.0 [facility] Comment on above: Order Comment: Speci men Type: BLOOD SPECIMENOrdering Facility: [facility] Address: [address] [place] [address] Performed By: #### 5 7021-8 ####[facility] LABORATORYCLIA [id number] [address] [place] [id number] [place] Monocytes (Bld) [#/Vol] 1.20 10*3/uL High <0.87 [facility] Comment on above: Order Comment: Speci men Type: BLOOD SPECIMENOrdering Facility: [facility] Address: [address] [place] [address] Performed By: #### 5 7021-8 ####[facility] LABORATORYCLIA [id number] [place] [address] [place] Monocytes/100 WBC (Bld) 11.1 % Normal [facility] Comment on above: Order Comment: Speci men Type: BLOOD SPECIMENOrdering Facility: [facility] Address: [address] [place] [address] Performed By: #### 5 7021-8 ####[facility] LABORATORYCLIA [id number] [address] [id number] [place] Neutrophils (Bld) [#/Vol] 8.32 10*3/uL High 1.45-7.50 [facility] Comment on above: Order Comment: Speci men Type: BLOOD SPECIMENOrdering Facility: [facility] Address: [address] [place] [address] Performed By: #### 5 7021-8 ####[facility] LABORATORYCLIA [id number] [address] [address] [place] Neutrophils/100 WBC (Bld) 76.8 % Normal [facility] Comment on above: Order Comment: Speci men Type: BLOOD SPECIMENOrdering Facility: [facility] Address: [address] [place] [address] Performed By: #### 5 7021-8 ####[facility] LABORATORYCLIA [id number] [address] [address] [place] Nucleated RBC (Bld) [#/Vol] 10*3/uL Normal <0.01 [facility] Comment on above: Order Comment: Speci men Type: BLOOD SPECIMENOrdering Facility: [facility] Address: [address] [place], [place] [address] Performed By: #### 5 7021-8 ####[facility] LABORATORYCLIA [id number] [place] [address] [place] Nucleated RBC/100 WBC (Bld) [Ratio] 0.0 /100 WBC Normal [facility] Comment on above: Order Comment: Speci men Type: BLOOD SPECIMENOrdering Facility: [facility] Address: [address] [place] [address] Performed By: #### 5 7021-8 ####[facility]ATORYCLIA [id number] [place] [address] [place] Platelet mean volume (Bld) [Entitic vol] 9.6 fL Normal 9.0-12.7 [facility] Comment on above: Order Comment: Speci men Type: BLOOD SPECIMENOrdering Facility: [facility] Address: [address] [place] [address] Performed By: #### 5 7021-8 ####[facility]ORATORYCLIA [id number] [place] [address] [place] Platelets (Bld) [#/Vol] 333 10*3/uL Normal 150-400 [facility] Comment on above: Order Comment: Speci men Type: BLOOD SPECIMENOrdering Facility: [facility] Address: [address] [place], [place] [address] Performed By: #### 5 7021-8 ####[facility]ATORYCLIA [id number] [place] [address] [place] RBC (Bld) [#/Vol] 4.56 10*6/uL Normal 3.90-5.20 [facility] Comment on above: Order Comment: Speci men Type: BLOOD SPECIMENOrdering Facility: [facility] Address: [address] [place], [place] [address] Performed By: #### 5 7021-8 ####[facility]CL[facility] [id number] [place] [address] [place] WBC (Bld) [#/Vol] 10.82 10*3/uL Normal 3.70-11.00 [facility] Comment on above: Order Comment: Speci men Type: BLOOD SPECIMENOrdering Facility: [facility] Address: [facility] [place] [address] Performed By: #### 5 7021-8 ####[facility]ORYCLIA [id number] [address] [id number] [facility] CNDSon 11-17-2021 CNDS HNO ID: [id number] Author: Zhane Rasmussen MD Service: General Surgery [...] performed HOSPITAL COURSE: You were admitted to [facility] on 11/16/2021 to undergo the above listed [...] 11-17 Magnesium [Mass/Vol] 1.8 mg/dL Normal 1.7-2.3 [facility] Comment on above: Order Comment: Speci men Type: BLOOD SPECIMENOrdering Facility: [facility] Address: [address] [place] [address] Performed By: #### 1 9123-9, 82593-6, 2777-1 ####[facility] [id number] [address] [id number] [facility] NURSING PROGon 11-17-2021 NURSING PROG HNO ID: [id number] Author: Zakia Champagne RN Service: Nursing Author Type: Registered Nurse Type: Nursing Progress Note Filed: 11/17/2021 10:17 AM Note Text: Nursing Progress Note Patient Name: Mary Goode Patient Location: [address] [place] [address] [address] Daily Note: 0830: Pt AANDOx3. VSS. RA. Pt up with standby assist to the bathroom to void. Pt up and ambulated in the halls, standby, steady gait. Abdomen tender, bowel sounds hypoactive, no flatus yet. No complaints of nausea. Diet advanced to clear liquids. Lap sites instant potato processor with glue. Pain 3/10, manageable at this time. Encouraged to use IC. Call light in reach. This note was completed by: Zakia Champagne [facility] PT EDon 11-17-2021 PT ED HNO ID: [id number] Author: Kat Pitt DTR Service: Nutrition Therapy Author Type: Respiratory Therapy Aide Type: Patient Education Filed: 11/17/2021 11:12 AM [...] November 17, 2021 TIME: 11:08 AM [facility] Phosphate [Mass/Vol] 3.7 mg/dL Normal 2.7-4.8 [facility] Comment on above: Order Comment: Speci men Type: BLOOD SPECIMENOrdering Facility: [facility] Address: [address] [place] [address] Performed By: #### 1 9123-9, 93143-3, 2777-1 ####[facility]CLIA [id number] [address] ANES POSTPROC EVALon 022 ANES POSTPROC EVAL HNO ID: [id number] Author: Julian Dotson MD Service: Anesthesiology Author Type: Anesthesiologist Type: Anesthesia Postprocedure Evaluation Filed: 11/16/2021 3:25 PM Note Text: POST ANESTHESIA EVALUATION NOTE : 1950 Procedure Summary Date: 11/16/21 Room / Location: OR / OR Anesthesia Start: 1138 Anesthesia Stop: 1445 [...] November 16, 2021 TIME: 3:25 PM CSN: [id number] [facility] ANES PRE-OPon 11-16-2021 ANES PRE-OP HNO ID: [id number] Author: Julian Dotson MD Service: Anesthesiology Author [...] and consent discussed: yes. Patient / Responsible Green Party agrees to proceed: yes Patient / Surrogate [...] have interviewed and (more content not included)... Normal [facility] BRIEF OP NOTon 11-16-2021 BRIEF OP NOT HNO ID: [id number] Author: Don Minor MD Service: General Surgery Author Type: Resident Type: Brief Op Note Filed: 11/16/2021 2:35 PM Note Text: GENERAL SURGERY BRIEF OP NOTE LOG ID: [id number] Surgery/Procedure Date: 11/16/2021 Incision/Procedure Start Time: 12:11 PM Incision Close/Procedure End Time: 2:32 PM Surgeon(s) and Site Supervisor(s): Surgeon(s) and Role: * Atif Mendez [...] 16, 2021 TIME: 2:32 PM PAGER/CONTACT #: [phone] [facility] HISTORY PHYSICALon HISTORY PHYSICAL HNO ID: [id number] Author: Don Minor MD Service: General Surgery [...] DATE: November 16, 2021 TIME: 10:54 AM [facility] NURSING PROGon 11-16-2021 NURSING PROG HNO ID: [id number] Author: Renetta Quintana RN Service: Nursing Author Type: Registered Nurse Type: Nursing Progress Note Filed: 11/16/2021 4:23 PM Note Text: Nursing Progress Note Patient Name: Mary Goode Patient Location: [place] [address] Transfer Note: Patient transferred into room/unit pk3-333 in stable condition. Actions taken: No futher actions taken at this time. Will continue to monitor and check with patient. This note was completed by: Renetta Quintana [facility] NURSING PROG HNO ID: [id number] Author: Arcelia Leal RN Service: Nursing Author Type: Registered Nurse Type: Nursing Progress Note Filed: 11/16/2021 11:08 AM Note Text: PATIENT EDUCATION TOPIC: PROCEDURE / SURGERY: Pre-op Teaching: Protocols PATIENT NAME: Mary Goode PATIENT LOCATION: OR SCURRY/ OR POOL READINESS TO LEARN COGNITIVE ABILITY: [...] (RECOMMENDATION): None Electronically Signed By: Arcelia Leal [facility] OPERATIVE NOon 11-16-2021 OPERATIVE NO HNO ID: [id number] Author: Atif Mendez MD Service: General Surgery Author Type: Physician Type: Operative Report Filed: 11/23/2021 6:07 PM Note Text: [facility] - Operative Report MARY GOODE : 1950 AGE: 70. SEX: F PATIENT TYPE: I HOSP SVC: GENS LOCATION: [facility] ATTENDING PHYSICIAN: Atif Mendez MD CSN NUMBER: [id number] DATE OF SURGERY/PROCEDURE: 11/16/2021 INCISION/PROCEDURE START TIME: 12:11 PM INCISION CLOSE/PROCEDURE END TIME: 2:27 PM PREOPERATIVE DIAGNOSIS: Paraesophageal hernia. POSTOPERATIVE DIAGNOSIS: 1. Paraesophageal hernia. 2. Short esophagus. SURGEON: Atif Mendez MD HEALTHCARE ECONOMICS MANAGER: Don Pérez MD SURGERY/PROCEDURE: 1. Laparoscopic repair [...] a fundectomy was subsequently performed. 3. A 58-Estonian bougie was used to guide the size [...] the fat pad was brought down. The [place] was passed from the right to the [...] we decided to perform a fundectomy. A 58-Estonian bougie was passed in the esophagus into [...] complications noted. Because the patient is a Yarsanism, a Tisseel was used to spray in the operative bed. The 12 mm extraction port site was closed using a iwmuiv-ac-lozzo stitch using Vicryl. The other 12 mm [...] in throughout the operation. Atif Mendez MD TA:[id number] [facility] SURGICAL PATHOLOGYon 022 CASE REPORT Normal [facility] Comment on above: Order Comment: Speci men Type: TISSUE SPECIMENOrdering Facility: [facility] Address: [address], [place] [address] Result Comment: Surg ica Pathology Report Case: [id number] Authorizing Provider: Atif Mendez MD Collected: 11/16/2021 02:11 PM Ordering Location: [facility] Received: 11/16/2021 03:29 PM Operating Room Pathologist: Alba Neal MD Specimen: STOMACH RESECTION, Fundectomy Performed By: #### S ####[facility] LABCLIA [id number] [address] LABORATORYCLIA [id number] [address] FINAL DIAGNOSIS Normal [facility] Comment on above: Order Comment: Speci men Type: TISSUE SPECIMENOrdering Facility: [facility] Address: [address] [place] [address] Result Comment: Stom ach, excision: - Portion of stomach with fundic gland polyps. - No morphologic evidence of Helicobacter pylori microorganisms. Performed By: #### S ####[facility] LABCLIA [id number] [address] LABORATORYCLIA [id number] [address] FINAL PERFORMING LAB Normal [facility] Comment on above: Order Comment: Speci men Type: TISSUE SPECIMENOrdering Facility: [facility] Address: [address] [place] [address] Result Comment: Diag nostic interpretation performed at [facility], [address] [place] [address] CLIA# [id number] Groundhand: Fer Avalos M.D. Performed By: #### S ####[facility] LABCLIA [id number] [address] LABORATORYCLIA [id number] [address] GROSS DESCRIPTION Normal [facility] Comment on above: Order Comment: Speci men Type: TISSUE SPECIMENOrdering Facility: [facility] Address: [address] [place], [place] [id number] Result Comment: A. S TOMACH RESECTION. Received [...] The serosal surface is oates and smooth. [employer] Hand sections are submitted as follows: A1 3 polyps totally submitted, A2 2 polyps totally submitted, A3 2 polyps totally submitted, A4 uninvolved gastric mucosa. BF November 17, 2021 9:13 AM Gross examination performed at [facility] [place], [address] [place] [address] CLIA # [id number] Performed By: #### S ####[facility] LABCLIA [id number] [address] LABORATORYCLIA [id number] [place] [address] [place] SARS-CoV-2 RNA Resp Ql CONRADO+p jessie 11-13-2021 SARS-CoV-2 (COVID-19) RNA CONRADO+probe Ql (Resp) COVID 19 RESULT: SARS-CoV-2 (Agent of COVID-19) Not Detected by RT-PCR or equivalent method. This test was developed and its performance characteristics determined by [facility] [place]. This test has been authorized by FDA under an Emergency Use Authorization (EUA). This test has been validated in accordance with the FDA's Guidance Document Policy for Diagnostics Testing in Laboratories Certified to Perform High Complexity Testing under CLIA prior to Emergency use Authorization for Coronavirus Disease 2019 during the Public Health Emergency issued on July 07, 2019. Test performed by [facility], [facility] [place], [facility] [place] [address]. Normal [facility] Comment on above: Performed By: #### 9 4500-6 ####[facility] LABMEETIA [id number] [address] STATES OF [facility] CNOVon 11-12-2021 CNOV Office Visit ([id number] ) MARY GOODE ([id number]) 1950 F LV Date Time Provider Department 11/12/21 11:30 AM ATIF MENDEZ [id number] During your visit today, we recorded the following information about you: Temperature Pulse Blood pressure Weight 97.4 degrees 62/minute 140/63 78.5 kg Height 1.6 m Atif Mendez MD 11/12/2021 1:39 PM Signed SURGERY PREOPERATIVE VISIT NOTE Name: Mary Goode Medical Record: [id number] Encounter No.: [id number] Mary Goode is a 70 year old female seen in surgery clinic today for their final preoperative assessment. INTERVAL NOTE: Patient needed to discuss regarding surgery. She is currently scheduled for a paraesophageal hernia repair. 10/21/2021 CT A/P 10/16/2021 esophageal manometry View External Imaging - Miscellaneous Imaging [ID [id number]] 10/07/2021 UGI Scan on 10/27/2021 ?8:25 AM by External Provider: GI BMI 31 PLANNED PROCEDURE: Paraesophageal hernia repair, possible Monico fundoplication. Patient is a Yarsanism. We have discussed regarding not doing a fundoplication if risk of recurrence is assessed to be on the higher side intraoperatively. PAST MEDICAL HISTORY: PAST MEDICAL HISTORY Diagnosis Date - Congenital hydrocephalus (HCC) s/p RN OUTPATIENT SURGERY shunt - Essential hypertension - ADITI (obstructive sleep apnea) - Patient is Yarsanism PAST SURGICAL HISTORY: PAST SURGICAL HISTORY Procedure Laterality Date - APPENDECTOMY - COLONOSCOPY - EGD - HYSTERECTOMY HX 2008 - PAST SURGICAL HISTORY OF 2012 coil embolization for right renal aneurysm( [place]era) - PAST SURGICAL HISTORY OF 2006 RN OUTPATIENT SURGERY shunt - PAST SURGICAL HISTORY OF partial [...] complications includ (more content not included)... Normal [facility] ECHOon 11-06-2021 Echocardiography Echocardiography Rep ort: Transthoracic Echo [facility] Date of service: 11/06/2021 10:21:38 AM POLISHER Ordering physician: DOROTHY SPARROW Indication: Pre-op (non [...] * * * Final * * * [id number] ngoDynamicsSISUID Normal [facility] CBC panel Auto (Bld)on 11-03 Erythrocyte distribution width (RBC) [Ratio] 12.5 % Normal 11.5-15.0 [facility] Comment on above: Order Comment: Param jarquin Type: BLOOD SPECIMENOrdering Facility: [facility] Address: [address] [place] [address] Performed By: #### 5 8410-2 ####[facility] LABIA [id number] [address] [place] Hematocrit (Bld) [Volume fraction] 36.7 % Normal 36.0-46.0 [facility] Comment on above: Order Comment: Param jarquin Type: BLOOD SPECIMENOrdering Facility: [facility] Address: [address] [place] [address] Performed By: #### 5 8410-2 ####[facility] LABIA [id number] [address] [place] Hemoglobin (Bld) [Mass/Vol] 12.3 g/dL Normal 11.5-15.5 [facility] Comment on above: Order Comment: Param jarquin Type: BLOOD SPECIMENOrdering Facility: [facility] Address: [address] [place] [address] Performed By: #### 5 8410-2 ####[facility] LABIA [id number] [place] [address] [place] MCH (RBC) [Entitic mass] 30.0 pg Normal 26.0-34.0 [facility] Comment on above: Order Comment: Speci men Type: BLOOD SPECIMENOrdering Facility: [facility] Address: [address] [place] [address] Performed By: #### 5 8410-2 ####[facility] LABCLIA [id number] [place] [address] [place] MCHC (RBC) [Mass/Vol] 33.5 g/dL Normal 30.5-36.0 [facility] Comment on above: Order Comment: Speci men Type: BLOOD SPECIMENOrdering Facility: [facility] Address: [address] [place] [address] Performed By: #### 5 8410-2 ####[facility] LABIA [id number] [place] [address] [place] MCV (RBC) [Entitic vol] 89.5 fL Normal 80.0-100.0 [facility] Comment on above: Order Comment: Speci men Type: BLOOD SPECIMENOrdering Facility: [facility] Address: [address] [place] [address] Performed By: #### 5 8410-2 ####[facility] LABCLIA [id number] [place] [address] [place] Nucleated RBC (Bld) [#/Vol] 10*3/uL Normal <0.01 [facility] Comment on above: Order Comment: Speci men Type: BLOOD SPECIMENOrdering Facility: [facility] Address: [address] [place] [address] Performed By: #### 5 8410-2 ####[facility] LABCLIA [id number] [place] [address] [place] Platelet mean volume (Bld) [Entitic vol] 9.3 fL Normal 9.0-12.7 [facility] Comment on above: Order Comment: Speci men Type: BLOOD SPECIMENOrdering Facility: [facility] Address: [address] [place] [address] Performed By: #### 5 8410-2 ####MELISSA [facility] LABCLIA [id number] [place] [address] [place] Platelets (Bld) [#/Vol] 331 10*3/uL Normal 150-400 [facility] Comment on above: Order Comment: Speci men Type: BLOOD SPECIMENOrdering Facility: [facility] Address: [address] [place] [address] Performed By: #### 5 8410-2 ####MELISSA [facility] LABCLIA [id number] [place] [address] [place] RBC (Bld) [#/Vol] 4.10 10*6/uL Normal 3.90-5.20 [facility] Comment on above: Order Comment: Speci men Type: BLOOD SPECIMENOrdering Facility: [facility] Address: [address] [place] [address] Performed By: #### 5 8410-2 ####MELISSA [facility] LABIA [id number] [place] [address] [place] WBC (Bld) [#/Vol] 7.53 10*3/uL Normal 3.70-11.00 [facility] Comment on above: Order Comment: Speci men Type: BLOOD SPECIMENOrdering Facility: [facility] Address: [address] [place] [address] Performed By: #### 5 8410-2 ####MELISSA [facility] LABCLIA [id number] [place] [address] [place] Faisal 11-03-2021 CNPN Telephone ([facility]) MARY JANE ([id number]) 1950 F LV Date Time Provider Department 11/03/21 ATIF MENDEZ During your visit today, we recorded the following information about you: Gee Meeks Ma 11/03/2021 10:41 AM Signed Patient is in need of Echo before 11/16 for surgery. Is anyone able to assist in getting the patient in for this? Gee Meeks Ma 11/04/2021 2:50 PM Signed Patient scheduled 11/06 in [place] for ECHO Allergies As of Date: 11/03/2021 (No Known Allergies) Date Reviewed: 11/03/2021 Reviewed by: Dorothy Sparrow APRN.FINANCE DIRECTOR - Fully Assessed Reason for Visit: Orders [...] by GEE MEEKS MA on 11/04/21 Normal [facility] Comprehensive metabolic 2000 panelon 11-03-2021 Albumin [Mass/Vol] 4.6 g/dL Normal 3.9-4.9 [facility] Comment on above: Order Comment: Speci men Type: BLOOD SPECIMENOrdering Facility: [facility] Address: [address] [id number] Performed By: #### 2 4323-8 ####MELISSA [facility] LABCLIA [id number] [place] [address] [place] ALP [Catalytic activity/Vol] 91 U/L Normal 34-123 [facility] Comment on above: Order Comment: Speci men Type: BLOOD SPECIMENOrdering Facility: [facility] Address: [address] [place] [address] Performed By: #### 2 4323-8 ####MELISSA [facility] LABCLIA [id number] [address] [address] [place] ALT [Catalytic activity/Vol] 16 U/L Normal 7-38 [facility] Comment on above: Order Comment: Speci men Type: BLOOD SPECIMENOrdering Facility: [facility] Address: [address] [place] [address] Performed By: #### 2 4323-8 ####MELISSA [facility] LABCLIA [id number] [place] [address] [place] Anion gap [Moles/Vol] 9 mmol/L Normal 9-18 [facility] Comment on above: Order Comment: Speci men Type: BLOOD SPECIMENOrdering Facility: [facility] Address: [address] [place] [address] Performed By: #### 2 4323-8 ####MELISSA [facility] LABCLIA [id number] [place] [address] [place] AST [Catalytic activity/Vol] 17 U/L Normal 13-35 [facility] Comment on above: Order Comment: Speci men Type: BLOOD SPECIMENOrdering Facility: [facility] Address: [address] [place] [address] Performed By: #### 2 4323-8 ####MELISSA [facility] LABCLIA [id number] [place] [address] [place] Bilirubin [Mass/Vol] 0.6 mg/dL Normal 0.2-1.3 [facility] Comment on above: Order Comment: Speci men Type: BLOOD SPECIMENOrdering Facility: [facility] Address: [address] [place] [address] Performed By: #### 2 4323-8 ####MELISSA [facility] LABCLIA [id number] [place] [address] [place] Calcium [Mass/Vol] 10.3 mg/dL High 8.5-10.2 [facility] Comment on above: Order Comment: Speci men Type: BLOOD SPECIMENOrdering Facility: [facility] Address: [address] [place] [address] Performed By: #### 2 4323-8 ####MELISSA [facility] LABCLIA [id number] [place] [address] [place] Chloride [Moles/Vol] 98 mmol/L Normal 97-105 [facility] Comment on above: Order Comment: Speci men Type: BLOOD SPECIMENOrdering Facility: [facility] Address: [address] [place] [address] Performed By: #### 2 4323-8 ####MELISSA [facility] LABCLIA [id number] [place] [address] [place] CO2 [Moles/Vol] 27 mmol/L Normal 22-30 [facility] Comment on above: Order Comment: Speci men Type: BLOOD SPECIMENOrdering Facility: [facility] Address: [address] [place] [address] Performed By: #### 2 4323-8 ####MELISSA [facility] LABCLIA [id number] [place] [address] [place] Creatinine [Mass/Vol] 1.05 mg/dL High 0.58-0.96 [facility] Comment on above: Order Comment: Speci men Type: BLOOD SPECIMENOrdering Facility: [facility] Address: [address] [place] [address] Performed By: #### 2 4323-8 ####MELISSA [facility] LABCLIA [id number] [place] [address] [place] ESTIMATED GLOMERULAR FILTRATION RATE 58 mL/min/1.73m??? Low >=60 [facility] Comment on above: Order Comment: Speci men Type: BLOOD SPECIMENOrdering Facility: [facility] Address: [address] [phone] Result Comment: Gabriela mated Glomerular Filtration Rate [...] By: #### 2 4323-8 ####MELISSA [facility] LABCLIA [id number] [place] [address] [place] Glucose [Mass/Vol] 108 mg/dL High 74-99 [facility] Comment on above: Order Comment: Param jarquin Type: BLOOD SPECIMENOrdering Facility: [facility] Address: [address] [place] [address] Result Comment: The [place] Diabetes Association (ADA) provides guidance for cutoff [...] Standards of Medical Care in Diabetes 2016, [place] [employer] Association. Diabetes Care. 2016.39(Suppl 1). Performed By: #### 2 4323-8 ####[facility] LABIA [id number] [place] [address] [place] Potassium [Moles/Vol] 4.3 mmol/L Normal 3.7-5.1 [facility] Comment on above: Order Comment: Param jarquin Type: BLOOD SPECIMENOrdering Facility: [facility] Address: [address] Performed By: #### 2 4323-8 ####MELISSA [facility] LABCLIA [id number] [place] [address] [place] Protein [Mass/Vol] 7.2 g/dL Normal 6.3-8.0 [facility] Comment on above: Order Comment: Speci men Type: BLOOD SPECIMENOrdering Facility: [facility] Address: [address] [place] [address] Performed By: #### 2 4323-8 ####[facility] LABCLIA [id number] [place] [address] [place] Sodium [Moles/Vol] 134 mmol/L Low 136-144 [facility] Comment on above: Order Comment: Speci men Type: BLOOD SPECIMENOrdering Facility: [facility] Address: [address] [place] [address] Performed By: #### 2 4323-8 ####[facility] LABCLIA [id number] [place] [address] [place] Urea nitrogen [Mass/Vol] 19 mg/dL Normal 7-21 [facility] Comment on above: Order Comment: Speci men Type: BLOOD SPECIMENOrdering Facility: [facility] Address: [address] [place] [address] Performed By: #### 2 4323-8 ####[facility] LABCLIA [id number] [place] [address] [place] HISTORY PHYSICALon HISTORY PHYSICAL HNO ID: [id number] Author: Dorothy Sparrow APRN.EMANUEL Service: ? Author [...] loss, malaise or fevers. Neurological: HCP s/p RN OUTPATIENT SURGERY shunt Negative for: delirium, dementia, headaches, seizures and strokes. Respiratory: Positive for: obstructive sleep apnea and CPAP/BiPAP compliant. Negative for: asthma, current cough, bronchodilator used daily for the last 3 months, dyspnea, pneumonia within 6 weeks, tobacco use and URI < 2 weeks. Cardiovascular: Positive for: hypertension Negative for: CAD, chest pain, CHF, DVT/PE, recent PA and murmur/valvular heart disease. GI: See HPI. Negative for: dysphagia, liver disease and pancreatitis. : Positive for: renal failure. Patient's renal failure is chronic. Negative for: dysuria, hematuria and urinary tract infection. MEDICAL TERRITORY MANAGER: Negative for abnormal vaginal bleeding, abnormal vaginal [...] Diagnosis Date - Congenital hydrocephalus (HCC) s/p RN OUTPATIENT SURGERY shunt - Essential hypertension - ADITI (obstructive sleep apnea) - Patient is Yarsanism PAST SURGICAL HISTORY Procedure Laterality Date - APPENDECTOMY - COLONOSCOPY - EGD - HYSTERECTOMY HX 2008 - PAST SURGICAL HISTORY OF 2012 coil embolization for right renal aneurysm( Aguilera) - PAST SURGICAL HISTORY OF 2006 RN OUTPATIENT SURGERY shunt - PAST SURGICAL HISTORY OF partial [...] of sedat (more content not included)... Normal [facility] Faisal 10-23-2021 CNPN Telephone ([id number]) RUSSELMARY M ([id number]) 1950 F Date Time Provider Department 10/23/21 ATIF MENDEZ [id number] During your visit today, we recorded the following information about you: Sabine Campoverde 10/23/2021 12:05 PM Signed Requested reports from [facility]. Sent fax to [phone] -Manometry .02.27 -Upper GI 6.05.30 Sabine [facility] Jonathon Dobson 10/27/2021 3:59 PM Signed Records received and scanned.on 10/27 listed under GI and external imaging [facility] Not sure who scanned these. Thanks! Allergies As of Date: 10/23/2021 (No Known Allergies) Date Reviewed: 10/01/2021 Reviewed by: Yolanda Castro MA - Fully Assessed Reason for Visit: Request Outside Medical Records [2774] Prescriptions as of 10/27/2021 - labetalol (TRANDATE) [...] Status:Closed by JONATHON DOBSON on 10/27/21 Normal [facility] CREATININE Chuck 10-21-2021 Creatinine [Mass/Vol] 1.04 mg/dL High 0.58-0.96 [facility] Comment on above: Order Comment: Speci men Type: BLOOD SPECIMENOrdering Facility: [facility] Address: [address] [place] [address] Performed By: #### C RET1 ####[facility] LABCLIA [id number] [place] [address] ESTIMATED GLOMERULAR FILTRATION RATE 59 mL/min/1.73m??? Low >=60 [facility] Comment on above: Order Comment: Speci men Type: BLOOD SPECIMENOrdering Facility: [facility] Address: [address] [place] [address] Result Comment: Gabriela mated Glomerular Filtration Rate [...] actual GFR. Performed By: #### C RET1 ####[facility] LABCLIA [id number] [place] [address] CREATININE BLDOrdered By: Felipe Huertas on 10-21-2021 Creatinine [Mass/Vol] 1.04 mg/dL High 0.58 - 0.96 mg/dL [facility] GFR/1.73 sq M.predicted among non-blacks MDRD (S/P/Bld) [Vol rate/Area] 59 mL/min/{1.73_m2} Low - PINF [facility] Comment on above: Estimated Glomerular Filtration Rate [...] Interpretation and review of laboratory results Abnormal [facility] CT ABD/PEL W IVCONon 022 CT ABD/PEL W IVCON * * *Final Report* * * DATE OF EXAM: Oct 21 2021 9:23AM [facility] 0530 - CT ABD/PEL W IVCON / [...] no acute osseous abnormalities. Lower thorax: Unremarkable. Wood Carver (topogram) images: No additional findings. IMPRESSION: 1. [...] any questions regarding this interpretation, please call [phone]. If you are unable to reach us at the number above, please feel free to contact [facility] at [phone]. [id number] Normal [facility] CT Abdomen and Pelvis W cont migdalia Shireen 10-21-2021 IMPRESSION: 1. No acute abnormalities [...] any questions regarding this interpretation, please call [phone]. If you are unable to reach us at the number above, please feel free to contact [facility] at [phone]. XenaZZ_DO_NOT_ USE_DIVISIO N OF RADIOLOGY * * *Final Report* * * DATE OF EXAM: Oct 21 2021 9:23AM [facility] 0530 - CT ABD/PEL W IVCON / [...] no acute osseous abnormalities. Lower thorax: Unremarkable. Wood Carver (topogram) images: No additional findings. XenaZZ_DO_NOT_ USE_DIVISIO N OF RADIOLOGY Provider, [facility] - 10/21/2021 * * *Final Report* * * DATE OF EXAM: Oct 21 2021 9:23AM [facility] 0530 - CT ABD/PEL W IVCON / [...] no acute osseous abnormalities. Lower thorax: Unremarkable. Wood Carver (topogram) images: No additional findings. IMPRESSION IMPRESSION: [...] any questions regarding this interpretation, please call [phone]. If you are unable to reach us at the number above, please feel free to contact [facility] at [phone]. [facility] Radiology Study observation (narrative) [facility] CT Abdomen and Pelvis W cont rast IVOrdered By: Ccf Provider on 10-21-2021 [facility] CNOVon 10-01-2021 CNOV Office Visit ([id number] ) MARY GOODE ([id number]) 1950 F LV Date Time Provider Department 10/01/21 10:30 AM ATIF MENDEZ [id number] During your visit today, we recorded the [...] 70 year old female who is a Zoroastrianism PMH of congenital hydrocephalus ( RN OUTPATIENT SURGERY shunt), HTN, patient of Monika Guerrero MD, referred to me by Dr Ramirez for hiatal hernia with severe GERD symptoms. Patient reports heart burn, excess salivation and occasional regurgitaion. She denies any ALARM features including weight loss, GIB, odynyophagia or dysphagia. Her PSH include open appendectomy, JUANI, and RN OUTPATIENT SURGERY shunt placement. The patient's most recent EGD was done in 09/03 and the report is included below Chart Review: -hx: worsening GERD - referred by Dr. Ramirez for GERD/Hiatal Hernia Scan on 09/03/2021 ?9:36 AM by Jonathon Dobson: [facility] progress note 07/22/2021 Dr. Ramirez - 08/06/2021 EGD Scan on 09/03/2021 ?9:35 AM by Jonathon Dobson: [facility] EGD 08/06/2021 Dr. Ramirez -09/17/2015 EGD Scan on 09/03/2021 ?9:33 AM by Jonathon Dobson: [facility] Operative report 09/17/2015 Dr. Walter Difficulty swallowing [...] 70 year old female who is a Zoroastrianism PMH of congenital hydrocephalus ( RN OUTPATIENT SURGERY shunt), HTN, who presents with paraesophageal hernia [...] the s (more content not included)... [facility] Telephone ([id number]) ELLYRILEYMARY BUCIO ([id number]) 1950 F Date Time Provider Department 09/03/21 ATIF MENDEZ [id number] During your visit today, we recorded the following information about you: Jonathon Dobson 09/03/2021 9:39 AM Signed Received medical records from Dr. Ramirez. Progress Note 07/22/2021 EGD [id number] Old Operative Report 09/17/2015 Please review. Allergies As of Date: 09/03/2021 (No Known Allergies) Date Reviewed: 03/07/2013 Reviewed by: Griselda MoraRn) MINDY Valdes - Fully Assessed Reason for [...] by RIKY MOURA RN on 09/07/21 Normal [facility] Cardiovascular Lab Reporton 01-13-2017 Cardiovascular Lab Report [facility] Patient Name: Mary Goode [facility] MR #: [id number] Physician: Abdulkadir Yoder,Department of M.D.Medicine Service Date: 01/12/2017Division of Birthdate: 3Cardiology Room #: CCAdult CardiovascularServices[address] [address]Sbghx Fax Cardiovascular Laboratory ReportFINAL IMPRESSION:1. Mildly elevated [...] usual sterile fashion. Using modified Seldingertechnique, a 5-Estonian micropuncture was placed in the right internaljugular vein. After that, this was upsized to a regular 5-Estonian sheath.A 5-Estonian Martinez was used for right heart catheterization. After theright heart catheterization, data was obtained. Martinez catheter was takenout. After that, access was obtained of left radial artery and a 6-Frenchsheath was placed and then we used a 5-Estonian JL4 and JR4 catheters forcoronary angiography. After [...] epicardial coronary arteries with rightdominant circulation.Electronically Signed by:Abdulkadir Yoder M.D. 01/20/2017 03:13 P Abdulkadir Yoder M.D.Date Dict: 01/12/2017/11:24 Darya/Abdulkadir Yoder M.D.Date Trans: 01/13/2017 07:28 Darya/Chin_JN:[id number]: Imer Purcell M.D. [address] [facility] [address] Samuel Sanchez M.D. [address] [place] [address] [facility] Vital Signs Date Time Vital Sign Value Performing Clinician Facility 10-08-2024 13:28040 Body height 157.5 cm Kinjal Garland NP Work Phone: [facility] 10-08-2024 13:28-0400 Body mass index (BMI) [Ratio] 33.43 kg/m2 Kinjal Garland NP Work Phone: [facility] 10-08-2024 13:28040 Body weight 82.92 kg Kinjal Garland NP Work Phone: [facility] 07-16-2024 09:15-0400 Body height 160.02 cm Imer Purcell MD Work Phone: [facility] 07-16-2024 09:15-0400 Body temperature 97.9 [degF] Imer Purcell MD Work Phone: [facility] 07-16-2024 09:15-0400 Body weight 84 kg Imer Purcell MD Work Phone: [facility] 07-16-2024 09:15-0400 Diastolic blood pressure 60 mm[Hg] Imer Purcell MD Work Phone: [facility] 07-16-2024 09:15-0400 Heart rate 62 /min Imer Purcell MD Work Phone: [facility] 07-16-2024 09:15-0400 Respiratory rate 12 /min Imer Purcell MD Work Phone: [facility] 07-16-2024 09:15-0400 SaO2% (BldA) [Mass fraction] 95 % Imer Purcell MD Work Phone: [facility] 07-16-2024 09:15-0400 Systolic blood pressure 110 mm[Hg] Imer Purcell MD Work Phone: [facility] 07-11-2024 09:10-0500 Body height 157.48 cm [facility] 07-11-2024 09:10-0500 Body mass index (BMI) [Ratio] 33.5 kg/m2 [facility] 07-11-2024 09:10-0500 Body weight 83 kg [facility] 07-11-2024 09:10-0500 Diastolic blood pressure 71 mm[Hg] [facility] 07-11-2024 09:10-0500 Heart rate 65 /min [facility] 07-11-2024 09:10-0500 Respiratory rate 16 /min [facility] 07-11-2024 09:10-0500 SaO2% (BldA) [Mass fraction] 95 % [facility] 07-11-2024 09:10-0500 Systolic blood pressure 110 mm[Hg] [facility] 07-05-2024 09:04-0500 Body height 157.5 cm Estelle BENSON Work Phone: [facility] 07-05-2024 09:04-0500 Body mass index (BMI) [Ratio] 33.76 kg/m2 Estelle BENSON Work Phone: [facility] 07-05-2024 09:04-0500 Body weight 83.73 kg Estelle BENSON Work Phone: [facility] 07-02-2024 10:52-0500 Body mass index (BMI) [Ratio] 34.39 kg/m2 Heather Bang MD Work Phone: [facility] 07-02-2024 10:52-0500 Body weight 85.28 kg Heather Bang MD Work Phone: [facility] 06-20-2024 11:23-0500 Body height 157.5 cm Ben Florentino MD Work Phone: [facility] 06-20-2024 11:23-0500 Body mass index (BMI) [Ratio] 34.39 kg/m2 Ben Florentino MD Work Phone: [facility] 06-20-2024 11:23-0500 Body weight 85.28 kg Ben Florentino MD Work Phone: [facility] 06-20-2024 11:23-0500 Diastolic blood pressure 61 mm[Hg] Ben Florentino MD Work Phone: [facility] 06-20-2024 11:23-0500 Heart rate 125 /min Ben Florentino MD Work Phone: [facility] 06-20-2024 11:23-0500 Systolic blood pressure 88 mm[Hg] Ben Florentino MD Work Phone: [facility] 05-16-2024 10:26-0500 Body height 157.5 cm Ben Florentino MD Work Phone: [facility] 05-16-2024 10:26-0500 Body mass index (BMI) [Ratio] 34.39 kg/m2 Ben Florentino MD Work Phone: [facility] 05-16-2024 10:26-0500 Body weight 85.28 kg Ben Florentino MD Work Phone: [facility] 05-16-2024 10:26-0500 Diastolic blood pressure 67 mm[Hg] Ben Florentino MD Work Phone: [facility] 05-16-2024 10:26-0500 Heart rate 72 /min Ben Florentino MD Work Phone: [facility] 05-16-2024 10:26-0500 Systolic blood pressure 106 mm[Hg] Ben Florentino MD Work Phone: [facility] 03-21-2024 11:18-0500 Body height 157.5 cm Mireille Zurita MD Work Phone: [facility] 03-21-2024 11:18-0500 Body mass index (BMI) [Ratio] 33.29 kg/m2 Mireille Zurita MD Work Phone: [facility] 03-21-2024 11:18-0500 Body temperature 97 [degF] Mireille Zurita MD Work Phone: [facility] 03-21-2024 11:18-0500 Body weight 82.56 kg Mireille Zurita MD Work Phone: [facility] 03-21-2024 11:18-0500 Diastolic blood pressure 84 mm[Hg] Mireille Zurita MD Work Phone: [facility] 03-21-2024 11:18-0500 Heart rate 85 /min Mireille Zurita MD Work Phone: [facility] 03-21-2024 11:18-0500 Systolic blood pressure 132 mm[Hg] Mireille Zurita MD Work Phone: [facility] 03-06-2024 13:45-0400 Diastolic blood pressure 62 mm[Hg] MD Imer Purcell Work Phone: [facility] 03-06-2024 13:45-0400 Heart rate 66 /min MD Imer Purcell Work Phone: [facility] 03-06-2024 13:45-0400 Respiratory rate 16 /min MD Imer Purcell Work Phone: [facility] 03-06-2024 13:45-0400 SaO2% (BldA) [Mass fraction] 96 % MD Imer Purcell Work Phone: [facility] 03-06-2024 13:45-0400 Systolic blood pressure 130 mm[Hg] MD Imer Purcell Work Phone: [facility] 03-06-2024 12:12-0400 Body height 157.48 cm MD Imer Purcell Work Phone: [facility] 03-06-2024 12:12-0400 Body weight 81.19 kg MD Imer Purcell Work Phone: [facility] 03-01-2024 11:14-0400 Body height 157.5 cm Estelle BENSON Work Phone: [facility] 03-01-2024 11:14-0400 Body mass index (BMI) [Ratio] 33.73 kg/m2 Estelle BENSON Work Phone: [facility] 03-01-2024 11:14-0400 Body weight 83.64 kg Estelle BENSON Work Phone: [facility] 01-24-2024 10:18040 Body height 163.83 cm MD Imer Purcell Work Phone: [facility] 01-24-2024 10:180400 Body mass index (BMI) [Ratio] 30.4 kg/m2 MD Imer Purcell Work Phone: [facility] 01-24-2024 10:18040 Body temperature 97.6 [degF] MD Imer Purcell Work Phone: [facility] 01-24-2024 10:18040 Body weight 81.64 kg MD Imer Purcell Work Phone: [facility] 01-24-2024 10:18-0400 Diastolic blood pressure 79 mm[Hg] MD Imer Purcell Work Phone: [facility] 01-24-2024 10:18-0400 Heart rate 76 /min MD Imer Purcell Work Phone: [facility] 01-24-2024 10:18-0400 Respiratory rate 16 /min MD Imer Purcell Work Phone: [facility] 01-24-2024 10:180400 SaO2% (BldA) [Mass fraction] 99 % MD Imer Purcell Work Phone: [facility] 01-24-2024 10:18-0400 Systolic blood pressure 138 mm[Hg] MD Imer Purcell Work Phone: [facility] 10-19-2023 11:33-0400 Body height 157.5 cm Mireille Zurita MD Work Phone: [facility] 10-19-2023 11:33-0400 Body mass index (BMI) [Ratio] 31.83 kg/m2 Mireille Zurita MD Work Phone: [facility] 10-19-2023 11:33-0400 Body temperature 96.6 [degF] Mireille Zurita MD Work Phone: [facility] 10-19-2023 11:33-0400 Body weight 78.93 kg Mireille Zurita MD Work Phone: [phone] [place] [address] 10-19-2023 11:33-0400 Diastolic blood pressure 74 mm[Hg] Mireille Zurita MD Work Phone: [phone] [place] [address] 10-19-2023 11:33-0400 Heart rate 79 /min Mireille Zurita MD Work Phone: [facility] 10-19-2023 11:33-0400 Systolic blood pressure 132 mm[Hg] Mireille Zurita MD Work Phone: 5(843)704-066939 [place] [address] 06-16-2023 10:43-0500 Body height 160 cm Mireille Zruita MD Work Phone: 2(486)320-952239 [place] [address] 06-16-2023 10:43-0500 Body mass index (BMI) [Ratio] 31.53 kg/m2 Mireille Zurita MD Work Phone: 4(829)102-938712 [place] [address] 06-16-2023 10:43-0500 Body temperature 96.8 [degF] Mireille Zurita MD Work Phone: 9(725)247-667112 [place] [address] 06-16-2023 10:43-0500 Body weight 80.74 kg Mireille Zurita MD Work Phone: 6(870)761-457112 [place] [address] 06-16-2023 10:43-0500 Diastolic blood pressure 74 mm[Hg] Mireille Zurita MD Work Phone: 1(276)783-927212 [place] [address] 06-16-2023 10:43-0500 Heart rate 82 /min Mireille Zurita MD Work Phone: 5(946)949-581712 [place] [address] 06-16-2023 10:43-0500 Systolic blood pressure 110 mm[Hg] Mireille Zurita MD Work Phone: [facility] 05-10-2023 11:27-0500 Body height 157.5 cm Mireille Zurita MD Work Phone: 3(316)250-834512 [place] [address] 05-10-2023 11:27-0500 Body mass index (BMI) [Ratio] 32.08 kg/m2 Mireille Zurita MD Work Phone: 1(573)844-396312 [place] [address] 05-10-2023 11:27-0500 Body temperature 97.3 [degF] Mireille Zurita MD Work Phone: 9(559)112-554112 [place] [address] 05-10-2023 11:27-0500 Body weight 79.56 kg Mireille Zurita MD Work Phone: 2(024)822-330712 [place] [address] 05-10-2023 11:27-0500 Diastolic blood pressure 76 mm[Hg] Mireille Zurita MD Work Phone: 1(082)528-498939 [place] [address] 05-10-2023 11:27-0500 Heart rate 74 /min Mireille Zurita MD Work Phone: 9(458)020-664039 [place] [address] 05-10-2023 11:27-0500 Respiratory rate 16 /min Mireille Zurita MD Work Phone: 4(111)958-261112 [place] [address] 05-10-2023 11:27-0500 Systolic blood pressure 120 mm[Hg] Mireille Zurita MD Work Phone: 2(205)741-402239 [place] [address] 03-23-2023 08:20-0500 Body temperature 97.9 [degF] Mireille Zurita MD Work Phone: 7(137)315-959839 [place] [address] 03-23-2023 08:20-0500 Diastolic blood pressure 73 mm[Hg] Mireille Zurita MD Work Phone: 5(484)817-425839 [place] [address] 03-23-2023 08:20-0500 Heart rate 88 /min Mireille Zurita MD Work Phone: 1(353)340-230312 [place] [address] 03-23-2023 08:20-0500 Respiratory rate 16 /min Mireille Zurita MD Work Phone: 1(860)283-455112 [place] [address] 03-23-2023 08:20-0500 SaO2% (BldA) [Mass fraction] 95 % Mireille Zurita MD Work Phone: [facility] 03-23-2023 08:20-0500 Systolic blood pressure 127 mm[Hg] Mireille Zurita MD Work Phone: [facility] 03-21-2023 06:33-0500 Body height 157.5 cm Mireille Zurita MD Work Phone: [facility] 03-21-2023 06:33-0500 Body mass index (BMI) [Ratio] 31.45 kg/m2 Mireille Zurita MD Work Phone: [facility] 03-21-2023 06:33-0500 Body weight 78 kg Mireille Zurita MD Work Phone: [facility] 02-01-2023 09:40-0400 Body height 163.83 cm Gino Paco Other [employer] Other 02-01-2023 09:40-0400 Body mass index (BMI) [Ratio] 29.4 kg/m2 Gino Paco Other [employer] Other 02-01-2023 09:40-0400 Body temperature 97.6 [degF] Gino Paco Other [employer] Other 02-01-2023 09:40-0400 Body weight 78.93 kg Gino Paco Other [employer] Other 02-01-2023 09:40-0400 Diastolic blood pressure 74 mm[Hg] Gino Paco Other [employer] Other 02-01-2023 09:40-0400 Respiratory rate 18 /min Gino Paco Other [employer] Other 02-01-2023 09:40-0400 SaO2% (BldA) [Mass fraction] 98 % Gino Paco Other [employer] Other 02-01-2023 09:40-0400 Systolic blood pressure 129 mm[Hg] Gino Antonio Other [facility] Other 01-20-2023 14:47-0400 Body height 160.02 cm Imer M Hoy Work Phone: CX-Derjvtminbeb-Xame [facility] [facility] [address] Work Phone: 01-20-2023 14:47-0400 Body mass index (BMI) [Ratio] 30.29 kg/m2 Imer M Hoy Work Phone: UZ-Zdppstvwgxdo-Ytzg [facility] [address] Work Phone: 01-20-2023 14:47-0400 Body surface area Derived from formula 1.81 m2 Imer M Hoy Work Phone: XH-Pxkufwcdgema-Ubwr [facility] [facility] [address] Work Phone: 01-20-2023 14:47-0400 Body temperature 96.9 [degF] Imer M Hoy Work Phone: AF-Kaiefjyvxjac-Fulw [facility] [facility] [address] Work Phone: 01-20-2023 14:47-0400 Body weight 77.57 kg Imer M Hoy Work Phone: AB-Eltvalrvwzhi-Dsjq [facility] [facility] [address] Work Phone: 01-20-2023 14:47-0400 Diastolic blood pressure 78 mm[Hg] Imer M Hoy Work Phone: FQ-Bytyaucnvrox-Uxig [facility] [facility] [address] Work Phone: 01-20-2023 14:47-0400 Heart rate 69 /min Imer M Hoy Work Phone: AN-Pmjnaahcgsvn-Ixiv [facility] Work Phone: 01-20-2023 14:47-0400 SaO2% (BldA) [Mass fraction] 98 % Imer M Hoy Work Phone: RA-Xtkuwedjgmxn-Oudm [facility] [address] Work Phone: 01-20-2023 14:47-0400 Systolic blood pressure 140 mm[Hg] Imer M Hoy Work Phone: HY-Hzfklccjcoup-Wmce [facility] [facility] [address] Work Phone: 01-20-2023 14:47-0400 4 1 Imer M Hoy Work Phone: EB-Sgumwlyxoscl-Hrpw [facility] [facility] [address] Work Phone: Comment on above: [employer] 12-07-2022 11:08-0400 Body height 160.02 cm Imer M Hoy Work Phone: IR-Jsybhzltfahl-Doju [place] [facility] [address] Work Phone: 12-07-2022 11:08-0400 Body mass index (BMI) [Ratio] 30.29 kg/m2 Imer M Hoy Work Phone: EH-Zccojusitqgz-Gonj [facility] [facility] [address] Work Phone: 12-07-2022 11:08-0400 Body surface area Derived from formula 1.81 m2 Imer M Hoy Work Phone: IR-Kslpdotsmwgd-Blzu [place] [facility] [address] Work Phone: 12-07-2022 11:08-0400 Body temperature 96.8 [degF] Imer M Hoy Work Phone: ZI-Nmchgldnmcrn-Zicf [facility] [facility] [address] Work Phone: 12-07-2022 11:08-0400 Body weight 77.57 kg Imer M Hoy Work Phone: GN-Zwdziodatsdw-Qkbr [facility] [facility] [address] Work Phone: 12-07-2022 11:08-0400 Diastolic blood pressure 78 mm[Hg] Imer M Hoy Work Phone: XB-Tzkxbzjmptrk-Khzh [facility] [facility] [address] Work Phone: 12-07-2022 11:08-0400 Heart rate 63 /min Imer M Hoy Work Phone: KV-Sxfgxudemuqx-Pion [place] [facility] [address] Work Phone: 12-07-2022 11:08-0400 SaO2% (BldA) [Mass fraction] 97 % Imer M Hoy Work Phone: AM-Xwffgfgujuxs-Slus [facility] [facility] [address] Work Phone: 12-07-2022 11:08-0400 Systolic blood pressure 132 mm[Hg] Imer M Hoy Work Phone: LU-Blruvfuulmwd-Szfl [facility] [facility] [address] Work Phone: 12-07-2022 11:08-0400 4 1 Imer M Hoy Work Phone: IS-Lrmnmgqfocga-Tvrz [facility] [facility] [address] Work Phone: Comment on above: [employer] 12-07-2022 11:08-0400 5 1 Imer M Hoy Work Phone: KR-Futhlzteizvn-Qqev [facility] [facility] [address] Work Phone: Comment on above: PHQ-9 TS 08-03-2022 15:20-0400 Body height 163.83 cm Keagan Chadwick Other [employer] Other 08-03-2022 15:20-0400 Body mass index (BMI) [Ratio] 19.6 kg/m2 Kaegan Chadwick Other [employer] Other 08-03-2022 15:20-0400 Body weight 52.62 kg Keagan Chadwick Other [employer] Other 07-22-2022 12:00-0400 Body height 163.83 cm Keagan Chadwick Other [employer] Other 07-22-2022 12:00-0400 Body mass index (BMI) [Ratio] 19.6 kg/m2 Keagan Chadwick Other [employer] Other 07-22-2022 12:00-0400 Body weight 52.62 kg Keagan Chadwick Other [employer] Other 07-22-2022 12:00-0400 Diastolic blood pressure 72 mm[Hg] Keagan Chadwick Other [employer] Other 07-22-2022 12:00-0400 Systolic blood pressure 118 mm[Hg] Keagan Chadwick Other [employer] Other 06-16-2022 10:00-0500 Body height 163.83 cm Gino Paco Other [employer] Other 06-16-2022 10:00-0500 Body mass index (BMI) [Ratio] 19.69 kg/m2 Gino Paco Other [employer] Other 06-16-2022 10:00-0500 Body temperature 97.6 [degF] Gino Paco Other [employer] Other 06-16-2022 10:00-0500 Body weight 52.84 kg Gino Paco Other [employer] Other 06-16-2022 10:00-0500 Diastolic blood pressure 70 mm[Hg] Gino Paco Other [employer] Other 06-16-2022 10:00-0500 Respiratory rate 18 /min Gino Paco Other [employer] Other 06-16-2022 10:00-0500 Systolic blood pressure 120 mm[Hg] Gino Paco Other [employer] Other 04-08-2022 10:09-0500 Diastolic blood pressure 64 mm[Hg] MD Imer Purcell Work Phone: [facility] 04-08-2022 10:09-0500 Heart rate 64 /min MD Imer Purcell Work Phone: [facility] 04-08-2022 10:09-0500 Respiratory rate 16 /min MD Imer Purcell Work Phone: [facility] 04-08-2022 10:09-0500 SaO2% (BldA) [Mass fraction] 100 % MD Imer Purcell Work Phone: [facility] 04-08-2022 10:09-0500 Systolic blood pressure 112 mm[Hg] MD Imer Purcell Work Phone: [facility] 04-08-2022 08:55-0500 Body height 160.02 cm MD Imer Purcell Work Phone: [facility] 04-08-2022 08:55-0500 Body temperature 98.2 [degF] MD Imer Purcell Work Phone: [facility] 04-08-2022 08:55-0500 Body weight 74.84 kg MD Imer Purcell Work Phone: [facility] 03-23-2022 16:20-0500 Body height 163.83 cm Keagan Chadwick Other [employer] Other 03-23-2022 16:20-0500 Body mass index (BMI) [Ratio] 28.05 kg/m2 Keagan Chadwick Other [employer] Other 03-23-2022 16:20-0500 Body weight 75.3 kg Keagan Chadwick Other [employer] Other 02-11-2022 14:00-0400 Body height 163.83 cm Keagan Chadwick Other [employer] Other 02-11-2022 14:00-0400 Body mass index (BMI) [Ratio] 28.05 kg/m2 Keagan Chadwick Other [employer] Other 02-11-2022 14:00-0400 Body weight 75.3 kg Keagan Chadwick Other [employer] Other 11-30-2021 11:20-0400 Body height 163.83 cm Gino Paco Other [employer] Other 11-30-2021 11:20-0400 Body mass index (BMI) [Ratio] 28.12 kg/m2 Gino Paco Other [employer] Other 11-30-2021 11:20-0400 Body temperature 97.2 [degF] Gino Paco Other [employer] Other 11-30-2021 11:20-0400 Body weight 75.48 kg Gino Paco Other [employer] Other 11-30-2021 11:20-0400 Diastolic blood pressure 69 mm[Hg] Gino Paco Other [employer] Other 11-30-2021 11:20-0400 Respiratory rate 18 /min Gino Paco Other [employer] Other 11-30-2021 11:20-0400 SaO2% (BldA) [Mass fraction] 98 % Gino Paco Other [employer] Other 11-30-2021 11:20-0400 Systolic blood pressure 112 mm[Hg] Gino Paco Other [employer] Other 11-12-2021 11:54-0400 Body height 160 cm Atif Mendez MD Work Phone: [facility] 11-12-2021 11:54-0400 Body temperature 97.39 [degF] Atif Mendez MD Work Phone: [facility] 11-12-2021 11:54-0400 Body weight 78.47 kg Atif Mendez MD Work Phone: [facility] 11-12-2021 11:54-0400 Diastolic blood pressure 63 mm[Hg] Atif Mendez MD Work Phone: [facility] 11-12-2021 11:54-0400 Heart rate 62 /min Atif Mendez MD Work Phone: [facility] 11-12-2021 11:54-0400 SaO2% (BldA) [Mass fraction] 98 % Atif Mendez MD Work Phone: [facility] 11-12-2021 11:54-0400 Systolic blood pressure 140 mm[Hg] Atif Mendez MD Work Phone: [facility] 10-01-2021 10:31-0400 Body height 165.1 cm Atif Mendez MD Work Phone: [facility] 10-01-2021 10:31-0400 Body weight 80.74 kg Atif Mendez MD Work Phone: [facility] 10-01-2021 10:31-0400 Diastolic blood pressure 57 mm[Hg] Atif Mendez MD Work Phone: [facility] 10-01-2021 10:31-0400 Heart rate 70 /min Atif Mendez MD Work Phone: [facility] 10-01-2021 10:31-0400 SaO2% (BldA) [Mass fraction] 97 % Atif Mendez MD Work Phone: [facility] 10-01-2021 10:31-0400 Systolic blood pressure 122 mm[Hg] Atif Mendez MD Work Phone: [facility] 06-02-2021 12:00-0500 Body height 163.83 cm Gino Paco Other [employer] Other 06-02-2021 12:00-0500 Body mass index (BMI) [Ratio] 30.28 kg/m2 Gino Paco Other [employer] Other 06-02-2021 12:00-0500 Body temperature 96.6 [degF] Gino Pcao Other [employer] Other 06-02-2021 12:00-0500 Body weight 81.29 kg Gino Paco Other [employer] Other 06-02-2021 12:00-0500 Diastolic blood pressure 61 mm[Hg] Gino Paco Other [employer] Other 06-02-2021 12:00-0500 Respiratory rate 18 /min Gino Paco Other [employer] Other 06-02-2021 12:00-0500 SaO2% (BldA) [Mass fraction] 98 % Gino Paco Other [employer] Other 06-02-2021 12:00-0500 Systolic blood pressure 125 mm[Hg] Gino Paco Other [employer] Other Encounters Encounter Date Encounter Type Care Provider Facility Start: 12-20-2024 End: 12-20-2024 Bamboo flowsheet Estelle BENSON Work Phone: [facility] Start: 12-20-2024 End: 12-20-2024 Bamboo flowsheet Estelle Rina Chris PA Work Phone: [facility] Start: 12-20-2024 End: 12-20-2024 Postop follow up visit related to original px Estelle Flynn Chris PA Work Phone: [facility] Comment on above: S/P total knee arthr oplasty, right (Primary Dx) Start: 12-20-2024 End: 12-20-2024 ambulatory ESTELLE J CHRIS Not Available Start: 11-19-2024 End: 11-19-2024 Bamboo flowsheet Estelle Flynn Chris PA Work Phone: [facility] Start: 11-19-2024 End: 11-19-2024 Bamboo flowsheet Estelle Flynn Chris PA Work Phone: [facility] Start: 11-19-2024 End: 11-19-2024 Postop follow up visit related to original px Estelle Flynn Chris PA Work Phone: [facility] Comment on above: S/P total knee arthr oplasty, right (Primary Dx) Start: 11-19-2024 End: 11-19-2024 ambulatory ESTELLE PEREZ Not Available Start: 11-12-2024 End: 11-12-2024 Telephone encounter Kinjal Garland NP Work Phone: [facility] Start: 11-06-2024 End: 11-06-2024 Telephone encounter Estelle BENSON Work Phone: [facility] Start: 11-05-2024 End: 11-05-2024 ambulatory RUSH KNAPP Facility:[facility] Start: 11-02-2024 End: 11-02-2024 Telephone encounter Jr. Rush Knapp DO Work Phone: [facility] Start: 10-29-2024 End: 10-29-2024 Clinisync Result Encounter Jr. Rush Knapp DO Work Phone: [facility] External Department Unsolicited Start: 10-29-2024 End: 10-29-2024 Clinisync Result Encounter [facility] Work Phone: [facility] External Department Unsolicited Start: 10-19-2024 End: 10-19-2024 Telephone encounter Estelle BENSON Work Phone: [facility] Comment on above: UTI Start: 10-17-2024 End: 10-17-2024 ambulatory IMER PURCELL Facility:[facility] Start: 10-17-2024 Encounter for other preprocedural examination [facility] Start: 10-08-2024 End: 10-08-2024 Bamboo flowsheet Kinjal Garland MANAGER [employer]MBALMER FUNERAL DIRECTOR Work Phone: [facility] Start: 10-08-2024 End: 10-08-2024 Bamboo flowsheet Kinjal Garland MANAGER EMBALMER FUNERAL DIRECTOR Work Phone: [facility] Start: 10-08-2024 End: 10-08-2024 Patient encounter procedure Kinjal Garland MANAGER EMBALMER FUNERAL DIRECTOR Work Phone: [facility] Comment on above: Primary osteoarthrit is of right knee (Primary Dx); Pre-op exam Start: 10-08-2024 End: 10-08-2024 Preprocedural examination done Kinjal Garland NP Work Phone: [facility] Start: 10-08-2024 End: 10-08-2024 ambulatory KINJAL GARLAND Not Available Start: 08-02-2024 End: 08-02-2024 ambulatory Rush Knapp Facility:[facility] Start: 08-02-2024 End: 08-02-2024 Departed Referred Imer Purcell MD Work Phone: [facility] [place] Start: 07-17-2024 End: 07-17-2024 ambulatory Pepito Holloway PT Work Phone: [facility] Comment on above: Primary osteoarthrit is of right knee (Primary Dx) Start: 07-16-2024 End: 07-16-2024 Patient encounter procedure Imer Purcell MD Work Phone: [facility] [address] Work Phone: Start: 07-16-2024 End: 07-16-2024 ambulatory Imer Purcell MD Work Phone: [facility] Work Phone: Start: 07-16-2024 End: 07-16-2024 Patient encounter procedure Imer Purcell MD Work Phone: [facility] Work Phone: Start: 07-16-2024 End: 07-16-2024 ambulatory Imer Purcell MD Work Phone: [facility] Work Phone: Start: 07-16-2024 Encounter for preprocedural laboratory examination Rush Knapp Jr [facility] Start: 07-11-2024 End: 07-11-2024 ambulatory [facility] Work Phone: Start: 07-11-2024 End: 07-11-2024 Patient encounter procedure [facility] Work Phone: Start: 07-05-2024 End: [...] Not Available Start: 07-02-2024 End: 07-02-2024 Bamboo flowskristopher Bang MD Work Phone: [facility] Start: 07-02-2024 End: 07-02-2024 Vitoo maulik Bang MD Work Phone: [facility] Start: 07-02-2024 End: 07-03-2024 Telephone encounter Keshia Diaz MD Work Phone: [facility] Start: 07-02-2024 End: 07-02-2024 Patient encounter procedure Heather Bang MD Work Phone: [facility] Comment on above: 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) Start: 07-02-2024 End: 07-02-2024 ambulatory HEATHER BANG Not Available Start: 06-27-2024 Non-patient / Non-visit [facility] Work Phone: Start: 06-27-2024 End: 06-27-2024 Bamboo flowskristopher Bang MD Work Phone: [facility] Start: 06-27-2024 End: 06-27-2024 Vitoo maulik Bang MD Work Phone: [facility] Start: 06-27-2024 End: 06-27-2024 Patient encounter procedure Heather Bang MD Work Phone: [facility] Comment on above: 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) Start: 06-27-2024 End: 06-27-2024 ambulatory HEATHER BANG Not Available Start: 06-25-2024 End: 06-25-2024 Vitoo maulik Bang MD Work Phone: [facility] Start: 06-25-2024 End: 06-25-2024 Vitoo flowskristopher Bang MD Work Phone: [facility] Start: 06-25-2024 End: 06-25-2024 Patient encounter procedure Heather Bang MD Work Phone: [facility] Comment on above: 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) Start: 06-25-2024 End: 06-25-2024 ambulatory HEATHER BANG Not Available Start: 06-20-2024 End: 06-20-2024 ambulatory BEN FLORENTINO Not Available Start: 06-20-2024 End: 06-20-2024 Office outpatient visit 15 minutes Ben Florentino MD Work Phone: [facility] Comment on above: Nasal obstruction (P rimary Dx) Start: 06-19-2024 End: 06-19-2024 Office outpatient new 30 minutes Eri A Felter MECHANICAL APPRENTICE-FINANCE DIRECTOR Work Phone: [facility] Comment on above: Melanocytic nevus of trunk (Primary Dx); Melanocytic nevus of face, other location; Capillary angioma; Lentigines; Seborrheic keratosis; Actinic keratosis; Neoplasm of unspecified behavior of bone, soft tissue, and skin Start: 06-19-2024 End: 06-19-2024 Bamboo flowsheet Eri A Felter MECHANICAL APPRENTICE-FINANCE DIRECTOR Work Phone: [facility] Start: 06-19-2024 End: 06-19-2024 Bamboo flowsheet Eri A Felter MECHANICAL APPRENTICE-FINANCE DIRECTOR Work Phone: [facility] Start: 06-19-2024 End: 06-19-2024 ambulatory ERI Darya FELTER Not Available Start: 06-04-2024 End: 06-11-2024 Clinisync Result Encounter Ben Florentino MD Work Phone: [facility] External Department Unsolicited Start: 06-04-2024 End: 06-11-2024 Clinisync Result Encounter Ben Florentino MD Work Phone: [facility] External Department Unsolicited Start: 05-21-2024 End: 05-22-2024 Telephone encounter Ben Florentino MD Work Phone: [facility] [place] Start: 05-21-2024 End: 05-21-2024 ambulatory BEN BLUMMIS Not Available Start: 05-16-2024 End: 05-16-2024 Bamboo maulik Florentino MD Work Phone: [facility] Start: 05-16-2024 End: 05-16-2024 Bamboo maulik Florentino MD Work Phone: [facility] Start: 05-16-2024 End: 05-16-2024 Office outpatient new 45 minutes Ben Florentino MD Work Phone: [facility] Comment on above: Facial trauma, initi al encounter (Primary Dx); Nasal obstruction Start: 05-16-2024 End: 05-16-2024 ambulatory BEN BLUMMIJorge Not Available Start: 04-04-2024 End: 04-04-2024 Bamboo maulik Bang MD Work Phone: [facility] Start: 04-04-2024 End: 04-04-2024 Bamboo flowskristopher Bang MD Work Phone: [facility] Start: 04-04-2024 End: 04-04-2024 Office outpatient new 45 minutes Heather Bang MD Work Phone: [facility] Comment on above: Allergic rhinitis du e to dust (Primary Dx); Allergic contact dermatitis due to metals Start: 04-04-2024 End: 04-04-2024 ambulatory HEATHER BANG Not Available Start: 04-02-2024 End: 04-02-2024 Vitoo flowskristopher Bang MD Work Phone: [facility] Start: 04-02-2024 End: 04-02-2024 Bammaria luzo maulik Bang MD Work Phone: [facility] Start: 04-02-2024 End: 04-02-2024 ambulatory HEATHER BANG Not Available Start: 04-02-2024 End: 04-02-2024 Patient encounter procedure Heather Bang MD Work Phone: [facility] Comment on above: Primary osteoarthrit is of right knee Start: 03-21-2024 End: 03-21-2024 Office outpatient visit 25 minutes Mireille Zurita MD Work Phone: [facility] Comment on above: Status post cervical spinal fusion (Primary Dx); Full incontinence of feces Start: 03-21-2024 End: 03-21-2024 ambulatory [facility] Start: 03-16-2024 End: 03-16-2024 ambulatory [facility] Start: 03-16-2024 End: 03-16-2024 Subsequent hospital visit by physician Gabby Cobos X-Ray 2 [facility] Comment on above: Status post cervical spinal fusion Start: 03-08-2024 End: 03-08-2024 ambulatory MD Imer Purcell Work Phone: [facility] Work Phone: Start: 03-08-2024 End: 03-08-2024 Patient encounter procedure MD Imer Purcell Work Phone: [facility] Work Phone: Start: 03-08-2024 End: 03-08-2024 Patient encounter procedure MD Imer Purcell Work Phone: [facility] [address] Work Phone: Start: 03-08-2024 End: 03-08-2024 ambulatory MD Imer Purcell Work Phone: [facility] Work Phone: Start: 03-06-2024 Non-patient / Non-visit MD Femi Purcell Work Phone: [facility] Work Phone: Start: 03-06-2024 End: 03-06-2024 Admission to same day surgery center MD Imer Purcell Work Phone: [facility] Work Phone: Start: 03-06-2024 End: 03-06-2024 ambulatory MD Imer Purcell Work Phone: [facility] Work Phone: Start: 03-05-2024 End: 03-05-2024 Telephone encounter Denise Patel MA [facility] Start: 03-01-2024 End: 03-01-2024 Bamboo flowsheet Estelle Perez PA Work Phone: [facility] Start: 03-01-2024 End: 03-01-2024 Bamboo flowsheet Estelle Perez PA Work Phone: [facility] Start: 03-01-2024 End: 03-01-2024 Patient encounter procedure Estelle BENSON Work Phone: [facility] Comment on above: Primary osteoarthrit is of right knee (Primary Dx); Pre-op examination Start: 03-01-2024 End: 03-01-2024 Preprocedural examination done Estelle BENSON Work Phone: [facility] Start: 03-01-2024 End: 03-01-2024 ambulatory ESTELLE PEREZ Not Available Start: 02-13-2024 End: 02-13-2024 Bambochip flowskristopher Knapp DO Work Phone: [facility] Start: 02-13-2024 End: 02-13-2024 Bambochip Knapp DO Work Phone: [facility] Start: 02-13-2024 End: 02-13-2024 Office outpatient visit 25 minutes Jr. Rush Knapp DO Work Phone: [facility] Comment on above: Primary osteoarthrit is of right knee (Primary Dx); Acute pain of right knee Start: 02-13-2024 End: 02-13-2024 ambulatory RUSH MURRAY Not Available Start: 02-03-2024 ambulatory Facility: [facility] Start: 01-24-2024 End: 01-24-2024 ambulatory MD Imer Purcell Work Phone: [facility] Work Phone: Start: 01-24-2024 End: 01-24-2024 Patient encounter procedure MD Imer Purcell Work Phone: [facility] Work Phone: Start: 01-19-2024 End: 01-19-2024 Patient encounter procedure MD Imer Purcell Work Phone: [facility] [place] Work Phone: Start: 01-19-2024 End: 01-19-2024 ambulatory MD Imer Purcell Work Phone: [facility] Work Phone: Start: 01-12-2024 End: 01-13-2024 Refill Freda Pop MECHANICAL APPRENTICE.FINANCE DIRECTOR Work Phone: General Surgery Comment on above: Refill Request Start: 12-08-2023 End: 12-08-2023 Patient encounter procedure MD Imer Purcell Work Phone: [facility] Work Phone: Start: 12-08-2023 End: 12-08-2023 ambulatory MD Imer Purcell Work Phone: [facility] Work Phone: Start: 10-19-2023 End: 10-19-2023 Office outpatient visit 25 minutes Mireille Zurita MD Work Phone: [facility] Comment on above: Status post cervical spinal fusion (Primary Dx) Start: 10-19-2023 End: 10-19-2023 ambulatory [facility] Start: 10-13-2023 End: 10-13-2023 Subsequent hospital visit by physician Gabby X-Ray 1 [facility] Comment on above: Cervical spondylosis with myelopathy Start: 10-13-2023 End: 10-13-2023 ambulatory [facility] Start: 10-11-2023 Refill Freda Pop MECHANICAL APPRENTICE.FINANCE DIRECTOR Work Phone: General Surgery Comment on above: Refill Request Start: 06-16-2023 End: 06-16-2023 Postop follow up visit related to original px Mireille Zurita MD Work Phone: [facility] Comment on above: 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) (Primary Dx); Status post cervical spinal fusion Start: 06-16-2023 End: 06-16-2023 ambulatory [facility] Start: 06-09-2023 End: 06-09-2023 Subsequent hospital visit by physician Gabby Wang X-Ray 1 [facility] Comment on above: 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) Start: 06-09-2023 End: 06-09-2023 ambulatory [facility] Start: 05-24-2023 End: 05-25-2023 ambulatory CECELIA HARKINS Not Available Start: 05-10-2023 End: 05-10-2023 Postop follow up visit related to original px Mireille Zurita MD Work Phone: [facility] 4 Comment on above: 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) (Primary Dx) Start: 05-10-2023 End: 05-10-2023 ambulatory [facility] Start: 05-05-2023 End: 05-05-2023 ambulatory [facility] Start: 04-07-2023 End: 04-07-2023 ambulatory [facility] Start: 03-23-2023 Encounter for other preprocedural examination [facility] Start: 03-21-2023 End: 03-23-2023 Encounter for other preprocedural examination [facility] Start: 03-21-2023 End: 03-23-2023 Evaluation and management of inpatient Mireille Zurita MD Work Phone: [facility] 2 Comment on above: Spine disorder (Prim shante Dx); Preop testing; Cervical spondylosis with myelopathy; Coagulation defect, unspecified (CMS/HCC); Spinal stenosis, cervical region; Other spondylosis with myelopathy, cervical region; Acute post-operative pain; Drug-induced constipation; Normal pressure hydrocephalus syndrome (CMS/HCC); S/P cervical spinal fusion; Essential hypertension Start: 03-21-2023 End: 03-23-2023 Patient encounter status Mireille Zurita MD Work Phone: [facility] Work Phone: Start: 03-14-2023 End: 03-14-2023 Subsequent hospital visit by physician Par X-Ray 5 [facility] Comment on above: Cervical spondylosis with myelopathy Start: 03-14-2023 End: 03-28-2023 ambulatory MIREILLE ZURITA [facility] Start: 03-14-2023 End: 03-14-2023 Subsequent hospital visit by physician [facility] Comment on above: Cervical spondylosis with myelopathy Start: 03-14-2023 End: 03-14-2023 ambulatory IMER PURCELL [facility] Start: 02-01-2023 End: 02-01-2023 ambulatory Igno Paco Other [facility] [employer] Other Start: 02-01-2023 Office outpatient vi sit 25 minutes Gino Paco [facility] Start: 01-20-[address] Imer Purcell Facility:[id number] Start: 01-20-2023 Office outpatient vi sit 15 minutes Imer Purcell Work Phone: [facility] [address] [address] Work Phone: Start: 12-07-2022 Office outpatient ne w 45 minutes Imer Purcell Work Phone: [facility] [address] [address] Work Phone: Start: 12-07-2022 ambulatory MIREILLE ZURITA Facility :[id number] Start: 08-03-2022 Office outpatient vi sit 15 minutes Keagan Chadwick [facility] Start: 08-03-2022 End: 08-03-2022 ambulatory MD Imer Purcell Work Phone: [facility] Work Phone: Start: 08-03-2022 End: 08-03-2022 Patient encounter procedure MD Imer Purcell Work Phone: [facility] [address] Work Phone: Start: 07-30-2022 End: 07-30-2022 ambulatory MD Imer Purcell Work Phone: [facility] Work Phone: Start: 07-30-2022 End: 07-30-2022 Patient encounter procedure MD Imer Purcell Work Phone: [facility] Work Phone: Start: 07-27-2022 End: 07-27-[address] IMER PURCELL . Facility:H1 Start: 07-22-2022 Office outpatient vi sit 15 minutes Keagan Chadwick [facility] Start: 07-22-2022 End: 07-22-2022 ambulatory MD Imer Purcell Work Phone: [facility] Work Phone: Start: 07-22-2022 End: 07-22-2022 Patient encounter procedure MD Imer Purcell Work Phone: [facility] [address] Work Phone: Start: 07-21-2022 End: 07-22-2022 ambulatory MARIKA ALBERTINA Facility:H1 Start: 06-24-2022 End: 06-25-[address] IMER PURCELL . Facility:H1 Start: 06-16-2022 End: 06-16-2022 ambulatory Gino Paco Other [facility] [employer] Other Start: 06-16-2022 Office outpatient vi sit 25 minutes Gino Paco [facility] Start: 06-08-2022 End: 06-08-2022 ambulatory MD Imer Purcell Work Phone: [facility] Work Phone: Start: 06-08-2022 End: 06-08-2022 Patient encounter procedure MD Imer Purcell Work Phone: [facility] [place] Work Phone: Start: 05-27-2022 End: 05-27-2022 ambulatory FREDA POP Facility:[facility] Start: 05-27-2022 End: 05-27-2022 ambulatory Freda Pop MECHANICAL APPRENTICE.FINANCE DIRECTOR Work Phone: General Surgery Comment on above: S/P repair of paraes ophageal hernia (Primary Dx); Long-term current use of proton pump inhibitor therapy Start: 05-27-2022 End: 05-27-2022 Telemedicine consultation with patient Freda Pop MECHANICAL APPRENTICE.FINANCE DIRECTOR Work Phone: [facility] Start: 05-17-2022 End: 05-18-2022 ambulatory GINO ANTONIO Facility: Start: 05-12-[address] IMER PURCELL . Facili ty: Start: 05-04-2022 End: 05-05-[address] IMER PURCELL . Facility: Start: 04-08-2022 End: 04-08-2022 Admission to same day surgery center MD Imer Purcell Work Phone: [facility] Start: 04-08-2022 End: 04-08-2022 ambulatory MD Imer Purcell Work Phone: [facility] Work Phone: Start: 03-23-2022 End: 03-23-2022 ambulatory Keagan Chadwick Other [facility] [employer] Other Start: 03-23-2022 Office outpatient vi sit 15 minutes Keagan Chadwick [facility] Start: 03-22-2022 End: 03-22-2022 Patient encounter procedure MD Imer Purcell Work Phone: [facility] [address] Start: 03-16-2022 End: 03-16-2022 ambulatory Ziyad Ngo Other [facility] [employer] Other Start: 03-16-2022 Telephone encounter Ziyad TREVIÑO G [employer] Start: 02-11-2022 End: 02-11-2022 ambulatory Keagan Chadwick Other [facility] [employer] Other Start: 02-11-2022 Office outpatient vi sit 15 minutes Keagan Chadwick [facility] Start: 02-10-2022 End: 02-10-2022 ambulatory MD Imer Purcell Work Phone: [facility] Work Phone: Start: 02-10-2022 End: 02-10-2022 Patient encounter procedure MD Imer Purcell Work Phone: [facility] [address] Start: 02-08-2022 End: 02-08-[address] IMER PURCELL . Facility:H1 Start: 01-27-2022 End: 01-27-[address] IMER PURCELL . Facility:H1 Start: 01-26-2022 End: 01-27-[address] IMER PURCELL . Facility:H1 Start: 01-25-2022 End: 02-15-[address] IMER PURCELL . Facility:H1 Start: 01-07-2022 End: 01-07-[address] IMER PURCELL . Facility:H1 Start: 12-23-2021 End: 12-23-2021 ambulatory FREDA POP Facility:[facility] Start: 12-03-2021 End: 12-03-2021 ambulatory Freda Pop MECHANICAL APPRENTICE.FINANCE DIRECTOR Work Phone: General Surgery Comment on above: S/P repair of paraes ophageal hernia (Primary Dx); Paraesophageal hernia Start: 12-03-2021 End: 12-03-2021 Telemedicine consultation with patient Freda Pop MECHANICAL APPRENTICE.FINANCE DIRECTOR Work Phone: [facility] Start: 11-30-2021 End: 11-30-2021 ambulatory Gino Antonio Other [facility] [employer] Other Start: 11-30-2021 Office outpatient vi sit 25 minutes Gino Antonio [facility] Neph[facility] Start: 11-26-2021 End: 11-27-2021 ambulatory GINO PACO [facility] [employer] Other Start: 11-26-2021 Telephone encounter Keagan Chadwick [facility] Start: 11-18-2021 ambulatory Atif Mendez MD [...] Start: 11-06-2021 End: 11-06-2021 ambulatory DOROTHY SPARROW Facility:[facility] Start: 11-04-2021 ambulatory Atif Mendez MD Work Phone: General Surgery Comment on above: Updated Medical hist ory Start: 11-03-2021 Telephone encounter Atif esposito MD Work Phone: Family [facility] Comment on above: Orders Start: 11-03-2021 End: 11-03-2021 ambulatory IMER PURCELL Facility:[facility] Start: 11-03-2021 Encounter for other preprocedural examination MONIKA GUERRERO [facility] Start: 10-23-2021 Telephone encounter Atif esposito MD Work Phone: General Surgery Comment on above: Request Outside [facility] Records Start: 10-21-2021 End: 10-21-2021 ambulatory MONIKA GUERRERO Facility:[facility] Start: 10-21-2021 End: 10-21-2021 Subsequent hospital visit by physician Arrival Time Radiology Work Phone: Radiology [facility] Comment on above: Paraesophageal herni a [K44.9] Start: 10-06-2021 End: 10-06-2021 ambulatory Jorge Ramirez Other [employer] Other Start: 10-06-2021 Telephone encounter Jorge TREVIÑO G Gastroenter[facility] Start: 10-02-2021 End: 10-02-2021 ambulatory Jorge Ramirez Other [employer] Other Start: 10-02-2021 Telephone encounter Jorge TREVIÑO G [facility] Start: 10-01-2021 End: 10-01-2021 ambulatory MONIKA GUERRERO Facility:[facility] Start: 10-01-2021 End: 10-01-2021 Patient encounter procedure Atif Mendez MD Work Phone: General Surgery Comment on above: Paraesophageal herni a (Primary Dx) Start: 09-03-2021 Telephone encounter Atif esposito MD Work Phone: General Surgery Comment on above: Received Outside [facility] [employer] Records Start: 08-25-2021 End: 08-25-2021 ambulatory Jorge Ramirez Other [employer] Other Start: 08-25-2021 Telephone encounter Jorge TREVIÑO G [facility] Start: 08-12-2021 End: 08-12-2021 ambulatory Jorge Ramirez Other [employer] Other Start: 08-12-2021 Telephone encounter Jorge TREVIÑO G Gastroenter[facility] Start: 06-02-2021 End: 06-02-2021 ambulatory Gino Paco Other [employer] Other Start: 06-02-2021 Office outpatient vi sit 25 minutes Gino Paco [facility] Start: 01-12-2017 End: 01-13-2017 Ambulatory MUCHINO SELLERSH Facility:[facility] Start: 01-07-2017 End: 01-08-2017 Ambulatory DEFAULT PHYSICIAN Facility:[facility] Procedures Date Procedure Procedure Detail Performing Clinician Start: 12-20-2024 Radiologic examination knee 1/2 views Estelle BENSON Work Phone: Start: 10-29-2024 [facility] UA (CLEAN/CATCH) MICROSCOPIC IF INDICATE Jr. Rush Knapp DO Work Phone: Start: 07-16-2024 Urine culture Imer Purcell MD Work Phone: Start: 06-19-2024 End: 06-19-2024 SKIN / NAIL BIOPSY Eri Ngo MECHANICAL APPRENTICE-FINANCE DIRECTOR Work Phone: Start: 06-19-2024 CRYOTHERAPY SKIN LESION Eri Ngo MECHANICAL APPRENTICE-FINANCE DIRECTOR Work Phone: Start: 06-04-2024 ALLERGENS W/COMP RFLX AREA 5 [facility] Work Phone: Start: 03-08-2024 MR lumbar spine [...] 2 or 3 views Mary Patrick MECHANICAL APPRENTICE-FRUIT LOADER MACHINE OPERATOR Work Phone: Start: 03-21-2023 IP CONSULT TO [...] Start: 03-14-2023 XR CHEST 2 VIEWS IMER VANGChristen Start: 03-14-2023 STAPHYLOCOCCUS AUREUS/MRSA COLONIZATION, CULTURE IMER [...] Start: 04-08-2032 Screening for malignant neoplasm of [facility] Start: 11-21-2027 RSV Vaccine (1 - 1-dose 75+ series) RSV Vaccine (1 - 1-dose 75+ series) [facility] Start: 06-18-2025 End: 06-18-2025 Patient encounter procedure [facility] Start: 02-18-2025 End: 02-18-2025 Patient encounter procedure 02/18/2025 8:30 AM EDT Procedure Visit [facility] [address] [place] [phone] Cintia Collado MD [address] [place] [address] [facility] Start: 01-28-2025 End: 01-28-2025 Patient encounter procedure 01/28/2025 8:30 AM EDT Office Visit [facility] [address] [place] [phone] Cintia Collado MD [address] [place] [address] [facility] Start: 01-07-2025 Influenza vaccination Influenza Vaccine (#1) [facility] Start: 12-20-2024 End: 12-20-2024 Patient encounter procedure [facility] Comment on above: S/P total knee arthroplasty, right (Prim shante Dx) Start: 11-28-2024 End: 11-28-2024 Patient encounter procedure 11/28/2024 9:50 AM EDT Procedure Visit [facility] [address] [place] [phone] Cintia Collado MD [address] [place] [address] [facility] Start: 11-19-2024 End: 11-19-2024 Patient encounter procedure [facility] Comment on above: S/P total knee arthroplasty, right (Prim shante Dx) Start: 11-17-2024 DIABETES SCREEN DIABETES SCREEN [facility] Start: 11-17-2024 Diabetes Screening Diabetes Screening [facility] Start: 11-14-2024 End: 11-14-2024 Patient encounter procedure 11/14/2024 10:00 AM EDT Office Visit [facility] [address] [place] [address] Cintia Collado MD [address] [place] [address] [facility] Start: 11-03-2024 DIABETES SCREEN DIABETES SCREEN [facility] Start: 10-08-2024 End: 10-08-2024 Patient encounter procedure 10/08/2024 1:30 PM EDT Office Visit [facility] [address] [facility] [place] [phone] Kinjal Garland, LILLIAM [address] [place], [place] [id number] Arrived [facility] Comment on above: Arrived Start: 09-05-2024 End: 09-05-2024 Patient encounter procedure 09/05/2024 9:20 AM EDT Procedure Visit [facility] [address] [place] [address] Cintia Collado MD [address] [place] [address] [facility] Start: 08-22-2024 End: 08-22-2024 Patient encounter procedure 08/22/2024 9:30 AM EDT Office Visit [facility] [address] [place] [address] Cintia Collado MD [address] [place] [address] [facility] Start: 08-16-2024 End: 08-16-2024 Patient encounter procedure 08/16/2024 10:45 AM EDT Office Visit [facility] [address] [place] [address] Estelle Perez PA [address] [place], [place] [phone] [facility] Start: 08-02-2024 Total replacement of right knee joint OR Knee Arthroplasty, Total MIS (Right) [facility] Start: 07-16-2024 Bacteria identified in Urine by Culture Urine Culture [facility] Start: 07-16-2024 Urine culture [facility] Start: 07-05-2024 End: 07-05-2024 Patient encounter [...] Visit [facility] [address] [place] [address] Ben Florentino MD [address] [place] [address] [facility] Start: 06-19-2024 End: 06-19-2024 Patient encounter procedure 06/19/2024 2:10 PM EST Office Visit [facility] [address] [place] [address] Eri Ngo, MECHANICAL APPRENTICE-FINANCE DIRECTOR [address] [place] [address] Arrived [facility] Comment on above: Arrived Start: 06-14-2024 End: 06-14-2024 Patient encounter procedure 06/14/2024 10:40 AM EST Office Visit [facility] [address] [place] [address] Eri Ngo, MECHANICAL APPRENTICE-FINANCE DIRECTOR [address] [place] [address] [facility] Start: 05-21-2024 End: 05-21-2024 Patient encounter procedure 05/21/2024 10:20 AM EST Office Visit [facility] [address] [place] [phone] Heather Bang MD [address] [place] [address] [facility] Start: 05-16-2024 End: 05-16-2024 Patient encounter procedure [facility] Comment on above: Arrived Start: 05-14-2024 End: 05-14-2024 Patient encounter procedure [facility] Start: 04-19-2024 End: 10-18-2024 XR Cervical spine 2 or 3 Views XR cervical spine 2-3 views Imaging Routine Status post cervical spinal fusion Expected: 04/19/2024, Expires: 10/18/2024 [facility] Service Area Work Phone: Comment on above: Expected: 04/19/2024, Expires: Start: 04-09-2024 End: 04-09-2024 Patient encounter procedure 04/09/2024 10:00 AM EST Office Visit [facility] [address] [place] [address] Heather Bang MD [address] [place] [address] [facility] Start: 04-04-2024 End: 04-04-2024 Patient encounter procedure [facility] Comment on above: Arrived Start: 03-29-2024 End: 03-29-2024 Patient encounter procedure 03/29/2024 10:00 AM EST Office Visit [facility] [address] [place] [address] Estelle Perez PA [address] [facility] [address] [place] [address] [facility] Start: 03-21-2024 End: 03-21-2024 Patient encounter procedure 03/21/2024 11:00 AM EST Office Visit [facility] [address] [place] [address] [address] [place] [phone] Mireille Zurita MD [address] [place], [place] [phone] [facility] Start: 03-08-2024 MR lumbar spine wo con MR lumbar spine wo con [facility] Start: 03-08-2024 MR Lumbar spine WO contrast [facility] Start: 03-08-2024 XR pre/post mri xray XR pre/post mri xray [facility] Start: 03-08-2024 [facility] Start: 03-06-2024 End: 03-06-2024 [facility] Start: 03-01-2024 End: 03-01-2024 Patient encounter procedure 03/01/2024 11:15 AM EDT Office Visit [facility] [address] [place] [phone] Estelle Perez PA [address] [facility] [address] [place] [address] Primary osteoarthritis of right knee (Primary Dx); Pre-op examination [facility] Comment on above: Primary osteoarthritis of right knee (Pr imary Dx); Pre-op examination Start: 02-21-2024 DTaP/Tdap/Td Vaccines (2 - Td or Tdap) DTaP/Tdap/Td Vaccines (2 - Td or Tdap) [facility] Start: 02-21-2024 Urine microalbumin profile DTaP,Tdap,Td Vaccine (2 - Td or Tdap) [facility] Start: 02-13-2024 End: 02-13-2024 Patient encounter procedure 02/13/2024 11:00 AM EDT Office Visit [facility] [address] [place] [phone] Jr. Rush Knapp DO [address] [facility] [address] [place] [address] Arrived [facility] Comment on above: Arrived Start: 01-19-2024 Bacteria identified in Urine by Culture [facility] Start: 01-08-2024 Covid-19 Vaccine ( season) Covid-19 Vaccine ( season) [facility] Start: 01-08-2024 Covid-19 Vaccine ( season) Covid-19 Vaccine ( season) [facility] Start: 01-08-2024 Influenza vaccination [facility] Start: 10-19-2023 End: 10-19-2023 Patient encounter procedure 10/19/2023 11:30 AM EDT Office Visit [facility] [address] [facility] [address] [place] [phone] Mireille Zurita MD [address] [place] [address] [facility] Start: 06-16-2023 End: 06-16-2023 Patient encounter procedure 06/16/2023 10:30 AM EST Office Visit [address] [phone] Mireille Zurita MD [address] [place] [address] [facility] Start: 06-10-2023 End: 05-10-2024 XR Cervical spine 2 or 3 Views XR cervical spine 2-3 views Imaging Routine 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 stenosis of cervical region ([facility]/HCC) Expected: 06/10/2023, Expires: 05/10/2024 [facility] Service Area Work Phone: Comment on above: Expected: 06/10/2023, Expires: Start: 05-12-2023 End: 05-12-2023 Patient encounter procedure 05/12/2023 8:30 AM EST Office Visit [address] [phone] Mireille Zurita MD [address] [place] [address] [facility] Start: 05-09-2023 Advance Directive Discussion Advance Directive Discussion [facility] Start: 05-09-2023 Behavioral Health Screening Behavioral Health Screening [facility] Start: 04-07-2023 End: 04-07-2023 Patient encounter procedure 04/07/2023 1:00 PM EST Office Visit [address] [phone] Araseli Faustin, MECHANICAL APPRENTICE-FINANCE DIRECTOR [address] [place] [address] [facility] Start: 03-21-2023 End: 03-21-2023 Admission to same day surgery center 03/21/2023 7:30 AM EST - 03/21/2023 1:00 PM EST Surgery [facility] [place] [address] [place] [address] Mireille Zurita MD [address] [place] [address] C3-4, C4-5, C5-6, C6-7 ANTERIOR DISC EXCISION/ ALLOGRAFT FUSION & PLATE FIXATION WITH FLAT PLATE CERVICAL X-RAY [facility] [place] Comment on above: C3-4, C4-5, C5-6, C6-7 ANTERIOR DISC EXC ISION/ ALLOGRAFT FUSION & PLATE FIXATION WITH FLAT PLATE CERVICAL X-RAY Start: 03-21-2023 End: 03-21-2023 Fusion Spine Anterior Cervical and Discectomy Fusion Spine Anterior Cervical and Discectomy Spinal stenosis, cervical region Other spondylosis with myelopathy, cervical region 03/21/2023 7:30 AM EST [facility] Work Phone: Start: 03-21-2023 Subsequent hospital visit by physician 03/21/2023 6:00 AM EST Hospital Encounter [facility] [place] [place] [address] [place] [phone] Mireille Zurita MD [address] [place] [address] Preop testing (Primary Dx); Cervical spondylosis with myelopathy; Coagulation defect, unspecified (CMS/HCC) [facility] [place] Comment on above: Preop testing (Primary Dx); Cervical spondylosis with myelopathy; Coagulation defect, unspecified (CMS/HCC) Start: 01-20-2023 FUV, Provider: Mireille Zurita, Status: Pen, Time: 1:30 PM FUV, Provider: Mireille Zurita, Status: Pen, Time: 1:30 PM BW-Wbbjvqonbhgf-Dzto [facility] [address] Work Phone: Start: 01-07-2023 Covid-19 Vaccine ( season) Covid-19 Vaccine ( season) [facility] Start: 01-07-2023 COVID-19 Vaccine ( season) COVID-19 Vaccine () [facility] Start: 11-17-2022 Creatinine measurement Serum Creatinine [facility] Start: 11-17-2022 SERUM CREATININE SERUM CREATININE [facility] Start: 11-03-2022 HEMOGLOBIN/HEMATOCRIT HEMOGLOBIN/HEMATOCRIT [facility] Start: 11-03-2022 SERUM CREATININE SERUM CREATININE [facility] Start: 07-31-2022 COVID-19 Vaccine (4 - Moderna series) COVID-19 Vaccine (4 - Moderna series) [facility] Start: 07-22-2022 XR pre/post mri xray XR pre/post mri xray [facility] Start: 07-22-2022 [facility] Start: 05-09-2022 ADVANCE DIRECTIVE DISCUSSION ADVANCE DIRECTIVE DISCUSSION [facility] Start: 05-09-2022 DEPRESSION ASSESSMENT DEPRESSION ASSESSMENT [facility] Start: 04-08-2022 [facility] Start: 01-07-2022 Influenza vaccination [facility] Start: 10-01-2021 End: 12-01-2021 CREATININE BLD CREATININE BLD Lab Routine Paraesophageal hernia Expected: 10/01/2021, Expires: 12/01/2021 [facility] Work Phone: Comment on above: Expected: 10/01/2021, Expires: Start: 07-09-2021 COVID-19 VACCINE (4 - Booster for Moderna series) COVID-19 VACCINE (4 - Booster for Moderna series) [facility] Start: 05-09-2021 ADVANCE DIRECTIVE DISCUSSION ADVANCE DIRECTIVE DISCUSSION [facility] Start: 05-06-2021 COVID-19 VACCINE (4 - Booster for Moderna series) COVID-19 VACCINE (4 - Booster for Moderna series) [facility] Start: 2017 BONE DENSITY BONE DENSITY [facility] Start: 2017 Pneumococcal Vaccine: 65+ (1 of 1 - PCV) Pneumococcal Vaccine: 65+ (1 of 1 - PCV) [facility] Start: 2017 Pneumococcal Vaccine: 65+ Years (1 - PCV) Pneumococcal Vaccine: 65+ Years (1 - PCV) [facility] Start: 2017 Pneumococcal Vaccine: 65+ Years (1 of 1 - PCV) Pneumococcal Vaccine: 65+ Years (1 of 1 - PCV) [facility] Start: 2017 PNEUMOCOCCAL: 65+ (1 - PCV) PNEUMOCOCCAL: 65+ (1 - PCV) [facility] Start: 2017 PNEUMOVAX AGE 65 AND OVER WITH 5YR LOOKBACK (#1) PNEUMOVAX AGE 65 AND OVER WITH 5YR LOOKBACK (#1) [facility] Start: 2017 Screening for osteoporosis Bone Density Screening [facility] Start: 03-07-2016 DIABETES SCREEN DIABETES SCREEN [facility] Start: 04-17-2014 Shingrix Vaccine (2 of 3) Shingrix Vaccine (2 of 3) [facility] Start: 04-17-2014 Zoster Vaccines (2 of 3) Zoster Vaccines (2 of 3) [facility] Start: 2012 RSV Vaccine (1 - 1-dose 60+ series) RSV Vaccine (1 - 1-dose 60+ series) [facility] Start: 2002 SHINGRIX VACCINE (1 of 2) SHINGRIX VACCINE (1 of 2) [facility] Start: 1997 COLOGUARD (FIT-DNA) COLOGUARD (FIT-DNA) [facility] Start: 1997 Colonoscopy COLONOSCOPY [facility] Start: 1997 COLORECTAL CANCER SCREENING COLORECTAL CANCER SCREENING [facility] Start: [address] COLONOGRAPHY [facility] Start: 1997 FECAL OCCULT BLOOD FECAL OCCULT BLOOD [facility] Start: 1997 Lipid panel Lipid Screening [facility] Start: 1997 LIPID SCREEN LIPID SCREEN [facility] Start: 1997 Screening for malignant neoplasm of colon [facility] Start: 1997 SIGMOIDOSCOPY SIGMOIDOSCOPY [facility] Start: 1992 Mammography MAMMOGRAM [facility] Start: 1992 Screening for malignant neoplasm of breast [facility] Start: 11-21-1971 Urine microalbumin profile DTAP,TDAP,TD (1 - Tdap) [facility] Start: 11-21-1971 Urine screening for protein CKD: Urine Protein Screening [facility] Start: 1970 ANNUAL PCP TEAM CHRONIC DISEASE VISIT ANNUAL PCP TEAM CHRONIC DISEASE VISIT [facility] Start: 1970 BP CONTROLLED (<130/80) BP CONTROLLED (<130/80) [facility] Start: 1970 Depression Screening Depression Screening [facility] Start: 1970 Diabetes mellitus screening Diabetes Screening [facility] Start: 1970 HEPATITIS C SCREENING HEPATITIS C SCREENING [facility] Start: 1970 Hepatitis C screening Hepatitis C Screening [facility] Start: 1964 Adult depression screening assessment DEPRESSION SCREENING [facility] Start: 1957 COVID-19 VACCINE (1) COVID-19 VACCINE (1) [facility] Start: 1950 Lipid panel Lipid Panel [facility] Start: 1950 Medicare Annual Wellness Visit Medicare Annual Wellness Visit (AWV) [facility] Start: 1950 Screening for malignant neoplasm of colon [facility] Start: 1952 Screening for osteoporosis Bone Density Scan [facility] End: 03-24-2023 Basic metabolic 2000 panel - Serum or Plasma Basic metabolic panel Lab Routine Morning draw (Lab) for 3 Occurrences starting 03/22/2023 until 03/24/2023, 2 completed [facility] Work Phone: Comment on above: Morning draw (Lab) for 3 Occurrences sta rting 03/22/2023 until 03/24/2023, 2 completed End: 03-24-2023 CBC panel - Blood by Automated count CBC Lab Routine Morning draw (Lab) for 3 Occurrences starting 03/22/2023 until 03/24/2023, 2 completed [facility] Service Area Work Phone: Comment on above: Morning draw (Lab) for 3 Occurrences sta rting 03/22/2023 until 03/24/2023, 2 completed End: 10-31-2022 Ct abdomen & pelvis w/contrast material CT ABD/PEL W IVCON Radiology Routine Paraesophageal hernia 1 Occurrences starting 10/01/2021 until 10/31/2022 [facility] Work Phone: Comment on above: 1 Occurrences starting 10/01/2021 until 10/31/2022 Dermatopathology exam Dermatopat hology exam Pathology and Cytology Timed Neoplasm of unspecified behavior of bone, soft tissue, and skin Release Upon Ordering for 1 Occurrences starting 06/19/2024 [facility] Work Phone: Comment on above: Release Upon Ordering for 1 Occurrences starting 06/19/2024 End: 09-28-2022 Esophageal motility study w/interp&rpt MANOMETRY ESOPHAGEAL Endoscopy Routine Paraesophageal hernia 1 Occurrences starting 10/01/2021 until 09/28/2022 [facility] Work Phone: Comment on above: 1 Occurrences starting 10/01/2021 until 09/28/2022 End: 03-21-2023 Incentive spirometry Instruct Incentive spirometry Instruct Respiratory Care Routine Once for 1 Occurrences starting 03/21/2023 until 03/21/2023 [facility] Work Phone: Comment on above: Once for 1 Occurrences starting 03/21/20 until 03/21/2023 Noninvasive Ventilation Noninvas kyle Ventilation Respiratory Care Routine For RT frequency use only for continuous procedures with task-based reminders at 8a and 8p until discontinued starting 03/21/2023 [facility] Work Phone: Comment on above: For RT frequency use only for continuous procedures with task-based reminders at 8a and 8p until discontinued starting 03/21/2023 Patient Education [facility] Work Phone: Renal function 1999 panel - Serum or Plasma [facility] Renal function 1999 panel - Serum or Plasma [facility] End: 03-22-2023 Urethral Catheter Removal Urethral Catheter Removal Procedures Routine Once for 1 Occurrences starting 03/22/2023 until 03/22/2023 [facility] Service Area Work Phone: Comment on above: Once for 1 Occurrences starting 03/22/20 until 03/22/2023 End: 06-09-2023 XR Cervical spine 2 or 3 Views [facility] Service Area Work Phone: Comment on above: Once for 1 Occurrences starting 06/09/19 until 06/09/2023 End: 10-13-2023 XR Cervical spine 2 or 3 Views [facility] Service Area Work Phone: Comment on above: Once for 1 Occurrences starting 10/13/19 until 10/13/2023 End: 03-16-2024 XR Cervical spine 2 or 3 Views [facility] Service Area Work Phone: Comment on above: Once for 1 Occurrences starting 03/16/20 24 until 03/16/2024 End: 03-14-2023 XR Chest 2 Views [facility] Service Area Work Phone: Comment on above: Once for 1 Occurrences starting 03/14/20 23 until 03/14/2023 End: 10-31-2022 XR UPPER GI SINGLE CONTRAST XR UPPER GI SINGLE CONTRAST Radiology Routine Paraesophageal hernia 1 Occurrences starting 10/01/2021 until 10/31/2022 [facility] Work Phone: Comment on above: 1 Occurrences starting 10/01/2021 until 10/31/2022 [facility] Immunizations Immunization Date Immunization Notes Care Provider [facility] 02-22-2024 COVID-19 (MODERNA) 12Y and older Imer Purcell MD Work Phone: [facility] 02-22-2024 influenza virus vaccine, unspecified formulation Estelle Perez [place] Work Phone: [facility] 03-02-2023 influenza virus vaccine, unspecified formulation [address] Work Phone: 03-02-2023 Respiratory Synctial Virus (Rsv), Unspecified [address] Work Phone: 06-05-2022 Moderna COVID-19 Biv al Booster 50 MCG/0.5ML Intramuscular Suspension Imer Purcell Work Phone: [facility] Work Phone: 05-06-2022 Fluad Quadrivalent 0 .5 ML Intramuscular Prefilled Syringe Imer Purcell Work Phone: [facility] Work Phone: 05-06-2022 influenza virus vaccine, unspecified formulation Freda Pop APRN.FINANCE DIRECTOR Work Phone: [facility] 03-11-2021 COVID-19 mRNA-1273 (Moderna) MD Imer Purcell Work Phone: [facility] 08-10-2020 Moderna COVID-19 Vaccine 100 MCG/0.5ML Intramuscular Suspension Imer Purcell Work Phone: [facility] 08-08-2020 COVID-19 mRNA-1273 (Moderna) MD Imer Purcell Work Phone: [facility] 07-11-2020 COVID-19 mRNA-1273 (Moderna) MD Iemr Purcell Work Phone: [facility] 02-18-2020 Seasonal trivalent influenza vaccine, adjuvanted, preservative free Imer Purcell Work Phone: [facility] Work Phone: 10-08-2015 influenza, seasonal, injectable Gino Paco Other [employer] Other 02-20-2014 tetanus toxoid, redu olena diphtheria toxoid, and acellular pertussis vaccine, adsorbed Imer Purcell Work Phone: [facility] Work Phone: 02-20-2014 zoster vaccine, live Imer Purcell Work Phone: [facility] Work Phone: Payers Date Payer Category Payer Self-pay [id number] 2021 Medicare [id number] 2017 Medicare MEDICARE MEDICAR E A AND B [id number] 2017-Present [phone] [place] [address] Medicare [id number] .[id number] 2017 Medicare [id number] [id number] .[id number] 2017 Medicare supplementa l policy (as second payer) [employer] SENIOR SUPPLEMENT [id number] .[id number] 5 2017 Private Health Insurance [employer]A [employer] MEDICARE SUPPLEMENT [id number] 2017-Present [phone] [address] [address] [place] [address] Indemnity [id number] .2.7.3.717965.315 2017 Private Health Insurance [id number] .[id number] .2.7.3.926208.315 1959 Medicare [id number] 2.16.840.1.450304.19 1959 Private Health Insurance [facility] [id number] 2.16.840.1.907665.19 1959 Self-pay [id number] 1952 Unknown [id number] 2.16.840.1.298150.3.579 .2.593 1952 Unknown [id number] 2.16.840.1.660865.3.579 .2.593 1952 Unknown [id number] 2.16.840.1.694707.3.579 .2.593 1952 Unknown [id number] 2.16.840.1.121147.3.579 .2.593 1952 Unknown [id number] 2.16.840.1.433442.3.579 .2.593 1952 Unknown [id number] 2.16.840.1.668317.3.579 .2.593 1952 Unknown [id number] 2.16.840.1.157375.3.579 .2.593 1952 Unknown [id number] 2.16.840.1.049760.3.579 .2.593 1952 Unknown [id number] 2.16.840.1.726056.3.579 .2.593 1952 Unknown [id number] 2.16.840.1.239717.3.579 .2.593 1952 Unknown [id number] 2.16.840.1.217397.3.579 .2.593 1952 Unknown [id number] 2.16.840.1.046379.3.579 .2.593 1952 Unknown [id number] 2.16.840.1.715646.3.579 .2.356 1952 Unknown [id number] 2.16.840.1.806038.3.579 .2.356 1952 Unknown [id number] 2.16.840.1.469447.3.579 .2.1259 1952 Unknown [id number] 2.16.840.1.632113.3.579 .2.1247 1952 Unknown [id number] 2.16.840.1.781426.3.579 .2.1247 1952 Unknown [id number] 2.16.840.1.271748.3.579 .2.1247 1952 Unknown [id number] 2.16.840.1.655146.3.579 .2.1247 1952 Unknown [id number] 2.16.840.1.374495.3.579 .2.727 1952 Unknown [id number] 2.16.840.1.754168.3.579 .2.1245 1952 Unknown [id number] 2.16.840.1.631222.3.579 .2.1245 1952 Unknown [id number] 2.16.840.1.159918.3.579 .2.1245 1952 Unknown [id number] 2.16.840.1.982860.3.579 .2.1245 1952 Unknown [id number] 2.16.840.1.753000.3.579 .2.1243 1952 Unknown [id number] 2.16.840.1.734946.3.579 .2.1243 1952 Unknown [id number] 2.16.840.1.213430.3.579 .2.1243 1952 Unknown [id number] 2.16.840.1.818694.3.579 .2.1243 1952 Unknown [id number] 2.16.840.1.004742.3.579 .2.1243 1952 Unknown [id number] 2.16.840.1.885488.3.579 .2.71 1952 Unknown [id number] 2.16.840.1.217248.3.579 .2.718 1952 Unknown [id number] 2.16.840.1.830968.3.579 .2.125 1952 Unknown [id number] 2.16.840.1.711489.3.579 .2.125 1952 Unknown [id number] 2.16.840.1.726873.3.579 .2.1258 1952 Unknown [id number] 2.16.840.1.715965.3.579 .2.1258 1952 Unknown [id number] 2.16.840.1.963404.3.579 .2.1258 1952 Unknown [id number] 2.16.840.1.846797.3.579 .2.1258 1952 Unknown [id number] 2.16.840.1.734436.3.579 .2.1258 1952 Unknown [id number] 2.16.840.1.692584.3.579 .2.1258 1952 Unknown [id number] 2.16.840.1.902282.3.579 .2.1258 1952 Unknown [id number] 2.16.840.1.550316.3.579 .2.1258 1952 Unknown [id number] 2.840.1.624127.3.579 .2.1258 1952 Unknown [id number] 2.16.840.1.867611.3.579 .2.1258 1952 Unknown [id number] 2.16.840.1.431913.3.579 .2.1258 1952 Unknown [id number] 2.16.840.1.793269.3.579 .2.1258 1952 Unknown [id number] 2.16.840.1.440063.3.579 .2.1258 1952 Unknown [id number] 2.16.840.1.470544.3.579 .2.1258 1952 Unknown [id number] 2.16.840.1.356447.3.579 .2.1258 1952 Unknown [id number] 2.16.840.1.205686.3.579 .2.1259 Blue Cross Blue Shield [id number] Unknown Unknown [id number] 2.16.840.1.317001.3.579 .2.531 Unknown [id number] 2.16.840.1.633539.3.579 .2.531 Unknown [id number] 2.16.840.1.081886.3.579 .2.531 Unknown [id number] 2.16.840.1.345410.3.579 .2.531 Unknown [id number] 2.16.840.1.234540.3.579 .2.531 Unknown [id number] 2.16.840.1.637965.3.579 .2.531 Unknown [id number] 2.16.840.1.097600.3.579 .2.531 Social History Date Type Detail Facility Start: 08-06-2021 End: 05-24-2023 Tobacco smoking status NHIS Never smoked tobacco [facility] Start: 11-16-2004 Alcohol intake Not Asked [facility] Start: 1950 Sex Assigned At Not on file [facility] History of tobacco use Chews Tobacco [facility] Start: 10-01-2021 End: 12-20-2024 Alcohol intake Current drinker of alcohol (finding) [facility] Start: 10-01-2021 History SDOH Alcohol Comment 1 drink monthly [facility] Start: 1950 Sex Assigned At Female [facility] Start: 09-21-2021 End: 03-21-2024 Exposure to SARS-CoV-2 (event) Not sure [facility] Start: 03-21-2023 End: 10-08-2024 Sex Assigned At [facility] Start: 12-23-2021 End: 05-24-2023 Tobacco use and exposure Smokeless tobacco non-user [facility] Tobacco smoking stat us NHIS Tobacco smoking consumption unknown [facility] Work Phone: Start: 03-22-2023 Tobacco use and exposure User of smokeless tobacco [facility] Work Phone: Start: 03-21-2023 End: 10-08-2024 History of Social function [facility] How often to you hav e a drink containing alcohol? Never [facility] How many standard drinks containing alcohol do you have on a typical day? Patient does not drink [facility] Work Phone: In the past 12 month s, was there a time when you were not able to pay the mortgage or rent on time? No [facility] Work Phone: Start: 03-22-2023 Alcohol Comment 1 drink/month [facility] Work Phone: How often to you hav e a drink containing alcohol? Monthly or less [facility] How many standard drinks containing alcohol do you have on a typical day? 1 or 2 [facility] Work Phone: Start: 09-24-2021 Gender identity Identifies as female gender (finding) [facility] Start: 09-24-2021 Sexual orientation Heterosexual (finding) [facility] Start: 07-11-2024 End: 10-10-2024 Sex Female (finding) [facility] Medical Equipment Procedure Code Equipment Code Equipment Origin al Text Equipment Identifier Dates Screw, Acp, Self Drill, 3.5 X 15mm, Variable - [id number] - [id number] Start: 03-21-2023 70 Mm 2.1 H Plate [id number] Start: 03-21-2023 Allograft, [employer] 7 X 11 X 14 - [id number] - [id number] Start: 03-21-2023 Allograft, [employer] 6 X 11 X 14 - [id number] - [id number] Start: 03-21-2023 Allograft, [employer] 7 X 11 X 14 - [id number] - [id number] Start: 03-21-2023 Allograft, [employer] 7 X 11 X 14 - [id number] - [id number] Start: 03-21-2023 Goals Date Patient Goal Desired Activity /State Personal health goal Clinical Notes 06-02-2021 to 12-20-2024 MARCELINO Garcia - 12/20/2024 10:15 AM EDTMattMARCELINO Ni - 11/19/2024 10:30 AM EDTPatient InstructionsTelephone Encounter - Kinjal Garland, LILLIAM - 11/12/2024 11:15 AM EDT Note Date & Type Note Facility 12-20-2024 History of Sarah li illness Narrative Images from the original note were not included. Orthopedic Office note: NAME: Mary Goode : 1950 (EST PT) - P/O (R) TKA 11/05/24 (6 WKS, 3 DAYS) @[facility] TODAY, 12/20/24 IN EPIC S/P PT @[facility] FINISHED PT / CONTINUES HEP. DOING WELL. INTERMITTENT BURNING SENSITIVITY TO INCISION SITE. FEELS LIKE HER LEG ROTATES LATERALLY WITH AMBULATION. DENIES PAIN. ADMITS SWELLING / STIFFNESS. GOOD ROM. SOME NUMBNESS INFERIOR ANTERIOR. DENIES WEAKNESS. DENIES WAKING HS. INCISION HEALING WELL. 1/2 PERCOCET PRN HS. DENIES ICING / HEATING. PLEASED WITH OUTCOME. Right Knee Exam Right knee exam is normal. Muscle Strength The patient has normal right knee strength. Range of Motion Right knee extension: 2. Flexion: 120 (tightness on terminal flexion) Tests Varus: negative Valgus: negative Other Erythema: absent Scars: present (Well healed, no drainage, no erythema) Sensation: normal Pulse: present Swelling: mild Effusion: effusion (consistent with surgery) present Comments: Operative lower extremity was noted to be neurovascularly intact. Patient was able to motor feet, toes and ankles in all anatomic planes bilaterally with 5 out of 5 strength. Operative knee's patellar tracking was optimal and quad/ham strength was 5 out of 5 to operative lower extremity. There was no varus valgus, anterior-posterior, or rotatory instability noted to the operative knee. Swelling was well controlled, patella was not ballotable and compartments were soft to the operative lower extremity. Dorsalis pedis and posterior tibial pulses were present and equal bilaterally. There was no evidence of infection or ascending lymphangitis to operative lower extremity. Sensation to light touch was intact to all dermatomes to bilateral lower extremities. Negative Homans and negative Josiah were noted bilaterally to lower extremities. Incision was healing without evidence of infection Orders Placed This Encounter Procedures XR knee 1 or 2 views right Reason for exam:: Post-op Procedures Results - Imaging (X-rays of the right knee): - Successful replacement - Good range of motion ICD-10-CM 1. S/P total knee arthroplasty, right Z96.651 XR knee 1 or 2 views right Assessment & Plan Post-operative status following right knee replacement Recovering well from right knee replacement surgery. X-ray results were reviewed and discussed at bedside. Completed physical therapy and expresses satisfaction with the outcome of the surgery, noting an improvement in activity levels. Range of motion and overall progress are ahead of the expected timeline. Very pleased with the right knee replacement. Treatment plan: Indications for dental prophylaxis with antibiotics were discussed, and plans to schedule the next dental appointment 6 months post-surgery. Left knee arthritis Reports that the left knee is currently stable but occasionally produces a popping sound. Given the current level of function, additional surgery is not being considered at this time. Goals were discussed, and it was recommended to have annual follow-ups for re-evaluation. The left knee, which has known arthritis, will be monitored. Follow-up: Yearly follow-up for recheck. PROCEDURE Procedure Performed Right knee replacement Questions answered in laymen terms at the bedside. The diagnosis, home exercise plan and any ongoing restrictions/ recommendations reviewed. If unable to be reached in office, I recommend evaluation at nearest Emergency Room if any symptoms worsened or new symptoms develop for requiring urgent evaluation. Visit was preformed using [employer]-mapping pilot speech recognition. documented in this encounter [facility] 11-19-2024 History of Presen t illness Narrative Images from the original note were not included. Orthopedic Office note: NAME: Mary Goode : 1950 (EST PT) - 1ST P/O (R) TKA 11/05/24 (2 WKS) [facility]OUGH [facility] DOING WELL. CONTINUES PT / HEP - ROM / STRENGTH IMPROVING. PRESENTS AMBULATING WITH WALKER. ADMITS STIFFNESS. ADMITS POSTERIOR PAIN HS - DIFFICULTY GETTING COMFORTABLE / WAKING HS - CAN RADIATE INTO LOWER LEG. SOME SWELLING - MORE WITH PROLONGED USE / STANDING. SOME NUMBNESS / NERVE SHOOTING DISCOMFORT. ELOY INTACT, REMOVED TODAY. NO S/S OF INFECTION. HAS NOT TAKEN ASA RECENTLY. CONTINUES FE. TRIED MARY HOSE - ADMITS KNEE / LOWER LEG DISCOMFORT AFTER WEARING. OXYCODONE - 1-2 DAILY / TYL PRN. ICING / ELEVATING. Right Ankle Exam Range of Motion Dorsiflexion: normal Plantar flexion: normal Muscle Strength Dorsiflexion: 5/5 Plantar flexion: 5/5 Right Knee Exam Muscle Strength The patient has normal right knee strength. Tenderness Right knee tenderness location: Compartments soft, expected soreness medial and lateral knee. Range of Motion Extension: 5 Right knee flexion: tightness on terminal flexion 112. Tests Varus: negative Valgus: negative Other Erythema: absent Scars: present (Gamaliel present, removed, no dehiscence or drainage) Sensation: normal Pulse: present Swelling: mild Effusion: effusion (consistent with surgery) present Comments: Operative lower extremity was noted to be neurovascularly intact. Patient was able to motor feet, toes and ankles in all anatomic planes bilaterally with 5 out of 5 strength. Operative knee's patellar tracking was optimal and quad/ham strength was 5 out of 5 to operative lower extremity. There was no varus valgus, anterior-posterior, or rotatory instability noted to the operative knee. Swelling was well controlled, patella was not ballotable and compartments were soft to the operative lower extremity. Dorsalis pedis and posterior tibial pulses were present and equal bilaterally. There was no evidence of infection or ascending lymphangitis to operative lower extremity. Sensation to light touch was intact to all dermatomes to bilateral lower extremities. Negative Homans and negative Josiah were noted bilaterally to lower extremities. Incision was healing without evidence of infection Orders Placed This Encounter Procedures Ambulatory referral to Physical Therapy Standing Status: Future Expected Date: 11/19/2024 Expiration Date: 05/22/2025 Referral Priority: Routine Referral Type: Consultation Referral Reason: Specialty Services Required Referral Location: [place] [facility] Scheduling Requested Specialty: Physical Therapy Number of Visits Requested: 1 Procedures Results ICD-10-CM 1. S/P total knee arthroplasty, right Z96.651 Ambulatory referral to Physical Therapy Assessment & Plan Status post right total knee arthroplasty. She is doing well with excellent range of motion and walking without much aid. Swelling is well controlled. The use of a cane is recommended pending follow-up with outpatient therapy. Home exercises for static flexion and extension stretches were discussed. She is encouraged to take aspirin twice daily, which she has occasionally forgotten. If she develops any calf pain or tenderness, she will contact the office for an outpatient ultrasound. She may proceed with her colonoscopy and skin cancer removal procedures as discussed, with concerns for infection in the postoperative phase. Treatment plan: The use of a cane is recommended pending follow-up with outpatient therapy. Home exercises for static flexion and extension stretches were discussed. She is encouraged to take aspirin twice daily, which she has occasionally forgotten. Clinical decision making: If she develops any calf pain or tenderness, she will contact the office for an outpatient ultrasound. She may proceed with her colonoscopy and skin cancer removal procedures as discussed, with concerns for infection in the postoperative phase. Follow-up: A follow-up visit is scheduled in 4 weeks when she is 6 weeks out. PROCEDURE Procedure Performed Right total knee arthroplasty Questions answered in laymen terms at the bedside. The diagnosis, home exercise plan and any ongoing restrictions/ recommendations reviewed. If unable to be reached in office, I recommend evaluation at nearest Emergency Room if any symptoms worsened or new symptoms develop for requiring urgent evaluation. Visit was preformed using wooju-mapping pilot speech recognition. documented in this encounter [facility] 11-19-2024 Instructions MARCELINO Garcia - 11/19/2024 10:30 AM EDT Discussed Surgery: Cont Asprin 81 mg twice daily and mary hose for additional 2 wks ( 4 wks post op) Discuss transition to outpatient therapy with your therapist. ( Bicycle Machine) Recommend static flexion and extension stretch for 10 minutes 3 times a day. Make time for ice and elevation after therapy and periods of increased activity. Follow up in 4 weeks with Xray's in office. No submerging wound pending recheck. documented in this encounter [facility] 11-12-2024 Telephone encount er Note Post op pain rx. PDMP reviewed [facility] 11-12-2024 Miscellaneous Notes Formattin g of this note might be different from the original. Post op pain rx. PDMP reviewed documented in this encounter [facility] 11-12-2024 Note [id number]24 Telephone encount er Note [place] Sharlene link, request Rx for zofran, post op nausea. [facility] 11-06-2024 Miscellaneous Notes Formattin g of this note might be different from the original. Sharlene Hood, request Rx for zofran, post op nausea. documented in this encounter [facility] 11-05-2024 Note Education Materials POST OPERATIVE TOTAL KNEE/HIP DISCHARGE INTRUCTIONS SURGEONS WRITTEN INSTRUCTIONS: Walk with walker; bear weight to tolerance on operative extremity Elevate extremity 1 hour 3 times/day to control pain and swelling and apply ice Range of motion to ankle 10 times/hour Range of motion to knee hourly Change dressing daily. Mary hose (compression stockings) for 6 weeks Physical therapy as prescribed May shower, no tub bath. Do not rub/scrub incision. Wash gently Take Aspirin 81mg 2x for 30 days to help prevent blood clots, coated or uncoated per patient preference. WHAT YOU SHOULD KNOW AFTER YOUR OPERATION: If you need pain pills, start before the pain becomes intense. Pain pills are frequently less upsetting to your stomach if you take them with food such as crackers or bread. If you have excessive or persistent pain, swelling, bleeding, nausea, vomiting or any other problems, you should first call your surgeon for advice. If you are unable to contact your surgeon, seek help from the emergency room. FOR THE PREVENTION OF DVT AFTER LOWER EXTREMITY SURGERY What is a DVT? There is always the risk of DVT after lower extremity surgery. DVT, or deep vein thrombosis, is a blood blot in a major vein that may partially or completely block the flow of blood. The clot occurs in the legs or pelvis, in areas where blood flow is slow, or in an injured blood vessel. DVT can be life-threatening should pieces of the clot break away and travel to the lungs. This is called pulmonary embolism What are the symptoms of DVT? The area affected by the blood clot may become swollen and painful, and possibly turn red as the normal flow of blood is blocked. You may also develop edema, which is the build up of fluid in the skin tissues surrounding the clot. If the clot is somewhere other than your leg, there may be no physical signs of DVT. If the clot breaks away and travels to your lungs, you may experience shortness of breath and chest pain. If this occurs you should call your doctor immediately or go to the emergency room. How can I prevent DVT? You should keep active. Moving the ankle and foot and bending the knee as tolerated when you are in bed and walking as tolerated. Take medication, especially the Aspirin, as prescribed by your doctor. What should I do if I think I have a DVT? You should call your doctor or go to the emergency room any time you have a sudden and unusual shortness of breath that is not related to exercise, exertion or anxiety. If you have swelling with redness and pain in your leg, you should call your doctor immediately. If there is concern then a test called ?Venous Doppler? can be done to rule of a DVT. #1 May shower and change dressing daily, no scrubbing or rubbing incision during shower just let the water run over the incision, starting tomorrow #2 stop smoking and drinking alcohol #3 ice to operative knee 20 minutes every hour while awake until pain and swelling control #4 flex and extend both feet/ankles 10 times per hour while awake #5 push both knees backwards into the bed 10 times every hour while awake, clench buttock muscles together 10 times every hour while awake #6 use walker weight-bear as tolerated to operative knee get up every 2 hours while awake and walk around for 1 to 2 minutes #7 flex and extend operative knee over the side of the bed ten times four times a day #8 follow up in office as scheduled #9 [facility] will be contacting you within the next 24 hours to set up home therapy visits #10 proceed immediately to the emergency department for chest pain or shortness of breath #[address] Knapp at the office [phone] or have him paged through the hospital debridging machine operator [phone] for any concerns or questions #12 You have been given a prescription for Percocet, Percocet is a narcotic, narcotics are addictive. If you feel you have issues with addiction please feel free to contact Dr. Knapp, your family physician, or proceed to the nearest hospital's emergency services department. #[address] Knapp at the above numbers if you have not had a bowel movement in 2 days or if you feel uncomfortable before that #14 take 1 baby aspirin (81 mg) twice a day for 30 days to thin your blood to help prevent blood clots. [facility] 11-05-2024 Note [facility]WEST Clinical Discharge Summary PERSON INFORMATION Name MARY GOODE Age 73 Years 1950 Sex FEMALE Language Mohawk PCP [facility] Marital Status Single Med Service Surgery Acct# Arrival 11/05/2024 06:00:34 Visit Reason SURGERY - RIGHT TOTAL KNEE Acuity LOS 000 00:31 Address: [address] [place] [address] Comment: PROVIDER INFORMATION VITALS INFORMATION Vital Sign Triage Latest Temp Oral Temp Temporal 36.3 DegC 36.3 DegC Temp Intravascular Temp Axillary Temp Rectal 02 Sat 99 % 96 % Respiratory Rate 16 br/min 16 br/min Peripheral Pulse Rate 70 bpm 73 bpm Apical Heart Rate Blood Pressure 121 mmHg / 70 mmHg 115 mmHg / 61 mmHg Comment: MEDICAL INFORMATION Allergy Info: levoFLOXacin Medication List: Medications to Continue That Have Not Changed Other Medications amLODIPine (amLODIPine 10 mg oral tablet) 1 tab(s) Oral (given by mouth) every day. ascorbic acid (Vitamin C 250 mg oral tablet) 1 tab(s) Oral (given by mouth) every day. atorvastatin (atorvastatin 20 mg oral tablet) 1 tab(s) Oral (given by mouth) At bedtime. azelastine nasal (azelastine 137 mcg/inh (0.1%) nasal spray) 2 puff(s) Nostril-Both 2 times per day. cyanocobalamin (Vitamin B12 50 mcg oral tablet) 1 tab(s) Oral (given by mouth) every day. donepezil (donepezil 5 mg oral tablet) 1 tab(s) Oral (given by mouth) every day. gabapentin (gabapentin 300 mg oral capsule) 1 cap(s) Oral (given by mouth) once a day (at bedtime). hydroCHLOROthiazide (hydroCHLOROthiazide 25 mg oral tablet) 1 tab(s) Oral (given by mouth) every day. labetalol (labetalol 200 mg oral tablet) 1 tab(s) Oral (given by mouth) every day. lansoprazole (lansoprazole 30 mg oral delayed release capsule) 1 cap(s) Oral (given by mouth) every day. losartan (losartan 50 mg oral tablet) 1 tab(s) Oral (given by mouth) every day. multivitamin with iron (Iron 100 Plus oral tablet) 1 tab(s) Oral (given by mouth) every day. potassium chloride (Potassium Chloride (Cdu-Jzmb-Dwj 10) 10 mEq oral tablet, extended release) 1 tab(s) Oral (given by mouth) every day. venlafaxine (venlafaxine 75 mg oral tablet) 1 tab(s) Oral (given by mouth) every day. Comment: Lab and Radiology Results Laboratory or Other Results This Visit (last charted value for your 11/05/2024 visit) No Laboratory or Other Results This Visit DIET & ACTIVITY Patient Activity Level: As Tolerated Patient Diet: Regular Patient Activity Restrictions: Discontinue Alcohol Use, No driving, No heavy lifting, Stop Smoking DISCHARGE INFORMATION Discharge Disposition: Discharge Location: DEPART REASON INCOMPLETE INFORMATION PATIENT EDUCATION INFORMATION Instructions: stepanic post op knee replacement instructions (MHGSTEPANIC) (MHGSTEPANIC) Follow up: With: Address: When: Estelle Perez [address] [place] [address] [address] [place] [address] Business (1) 11/19/2024 10:30 AM With: Address: When: IMER PURCELL [address] [place] [address] [place] [phone] Business (1) DIAGNOSIS Acute pain of right knee Comment: PHYS DOC NOTES [facility] 11-05-2024 Note PROCEDURE: XR Knee O ne or Two Views Right HISTORY: prosthesis placement COMPARISON: None. FINDINGS: BONES:Total knee replacement and resurfacing of the patella. No appreciable hardware fracture or bone fracture. SOFT TISSUES:Anterior soft tissue swelling and small amount of free air within the joint capsule. Anterior skin eloy. EFFUSION:None visible. OTHER: Negative. IMPRESSION: 1. Right knee replacement with expected postoperative findings. Final Dictated by: Ana Rosa Bello MD Dictated DT/TM: 11/07/24 5:04 Signed (Electronic Signature): Ana Rosa Bello MD 11/07/24 5:09 am Technologist: Jorge MA [facility] 11-02-2024 Telephone encount er Note Post ruiz meds PDMP reviewed [facility] 11-02-2024 Miscellaneous Notes Formattin g of this note might be different from the original. Post ruiz meds PDMP reviewed documented in this encounter [facility] 10-19-2024 Telephone encount er Note Called and [...] she would like to do that at [facility]. [facility] 10-19-2024 Miscellaneous Notes Formattin g [...] she would like to do that at [facility]. I called the patient and left a voicemail requesting a phone call back. + UTI, Rx sent to pharmacy, will need to repeat UA when complete. Thank you. Please notify pt. documented in this encounter [facility] 10-19-2024 Telephone encount er Note I called the patient and left a voicemail requesting a phone call back. [facility] 10-19-2024 Telephone encount er Note + UTI, Rx sent to pharmacy, will need to repeat UA when complete. Thank you. Please notify pt. [facility] 10-17-2024 Note PROCEDURE: XR Bone [...] Rosa Bello MD 10/23/24 9:14 am Technologist: [facility] 10-08-2024 History of Presen t illness Narrative Images from the original note were not included. GENERAL HISTORY AND PHYSICAL: NAME: Mary Goode : 1950 HISTORY OF PRESENT ILLNESS: Mary Goode is an 73 y.o. @ female. Here for surgery instructions right total knee arthroplasty November 05 @ [facility]. PAST MEDICAL HISTORY: Past Medical History: Diagnosis [...] OP SURGERY INSTRUCTIONS NOVEMBER 05 PATIENT HAS IRON / WALKER DR. PUR[facility]LL CLEARANCE October @ 10:30 PAT @ [facility] October @ 1 LUCY NOTIFIED Follow up in about 6 weeks (around 11/19/2024) for Post-Op November 19 @ 10:30 with Maricel Perez in [place]. documented in this encounter [facility] 07-11-2024 Evaluation note Diagnosis Onset Date Resolution CKD (chronic kidney disease) stage 3, GFR 30-59 ml/min acute July 11, 2024 8:59am Hyperlipidemia LDL goal <130 acute July 11, 2024 8:59am Hypertensive chronic kidney disease with stage 1 through stage 4 chronic ki acute July 11, 2024 8:59am Hypokalemia acute July 11 8:59am Hyponatremia acute July 11, 8:59am Vitamin D deficiency acute 2024 8:59am [facility] Work Phone: 1(904) 971-840702-27-2025 History of Present illness Narrative* MARCELINO Garcia - 07/05/2024 9:00 AM EST Images from the original note were not included. GENERAL HISTORY AND PHYSICAL: NAME: Mary Goode : 1950 HISTORY OF PRESENT ILLNESS: Mary Goode is an 73 y.o. @ female. Here for surgery instructions -H&P RT TKA 08/02/24 @ [facility] PAST MEDICAL HISTORY: Past Medical History: Diagnosis [...] SURGERY Right RENAL COIL EMBOLISM NECK SURGERY 2023 SEPTOPLASTY 1989 SINUS SURGERY .1979 SKIN CANCER [...] and proposed surgeryscheduled. RT TKA 08/02/[address] [facility] 07/05/23 @ 9 [facility] 07/16/24 @ [address] [facility] 07/19/24 @ 9:30 ALLERGY TESTING 05/21/24 DR SILVA; NEGATIVE LUCY NOTIFIED PT HAS WALKER PROGRESSIVE PT MEDICARE NO PRECERT REQUIRED Follow up for Post-Op 08/16/24 @ 10:45 [facility]. documented in this encounterNOHeartland Behavioral Health [id number] Telephone encounter Note* Telephone Encounter - MARCELINO Garcia - 07/02/2024 2:28 PM EST No she can keep appt as scheduled. Thanks [facility] [id number] Miscellaneous Notes* Telephone Encounter - MARCELINO Garcia - 07/02/2024 2:28 PM EST No she can keep appt as scheduled. Thanks * Telephone Encounter - Holly Rodríguez - 07/02/2024 2:18 PM EST Patient called stating she has UTI. She will be on an antibiotic. She has her pre-op appt this weekand wants to know of she should still come in. Patient wants to know if this will interfere with her scheduled surgery. Please advise [phone] or [phone]. documented in this encounterKansas City VA Medical [id number] Telephone encounter Note* Telephone Encounter - Hollydarya Rodríguez - 07/02/2024 2:18 PM EST Patient called stating she has UTI. She will be on an antibiotic. She has her pre-op appt this weekand wants to know of she should still come in. Patient wants to know if this will interfere with her scheduled surgery. Please advise [phone] or [phone]. [facility] [id number] History of Present illness Narrative* Heather Bang [...] an as needed basis. documented in this [facility]02-19-2025 History of Present illness Narrative* [...] final patch test interpretation. documented in this [facility]02-17-2025 History of Present illness Narrative* [...] 1st patch test interpretation. documented in this [facility]02-12-2025 History of Present illness Narrative* [...] Mother Araseli Goode Heart failure Father Tin Morenomellissamanoj Hypertension Father Tin Goode Migraines Father Tin Morenokyler Stroke Brother Davi Greenbergbridgette Diabetes Brother Davi Greenbergbridgette Cancer Brother Davi Russel Hearing loss Brother Davi Sanabriarichard Heart failure Brother Davi Morenokyler Hypertension Brother Davi Morenokyler Migraines Brother Davi Morenokyler Diabetes Brother Elijah (Brother) Hearing loss Brother Elijah (Brother) Stroke Brother Elijah (Brother) Hearing loss Brother Ziyad (Brother) Macular degeneration Father's Sister Melanoma Neg Hx Active Ambulatory Problems Diagnosis Date Noted Abnormality of gait 08/19/2005 Anxiety 03/12/2023 Chest pain 01/07/2017 CKD (chronic kidney disease) stage 3, GFR 30-59 ml/min ([facility]) ([facility]) 03/12/2023 Congenital hydrocephalus ([facility]) 02/08/2005 Dyspnea 01/07/2017 Essential hypertension (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) 03/12/2023 ADITI (obstructive sleep apnea) 03/12/2023 Osteoarthritis of right knee 05/11/2024 Status post cervical spinal fusion 06/16/2023 Spine disorder 03/21/2023 Resolved Ambulatory Problems Diagnosis Date Noted No Resolved Ambulatory Problems Past Medical History: Diagnosis Date Dementia ([facility]) Dental disease Years Ear problems Child Fatigue 10+ yrs GERD (gastroesophageal reflux disease) 5+ yrs History of occlusion of patent ductus arteriosus using embolization coil HL (hearing loss) 5 yrs Hydrocephalus ([facility]) Hypercholesteremia ([facility]) Hypertension ([facility]) Macular degeneration Meningitis spinal 1955 No blood products Obesity 10+ yrs Recurrent upper respiratory infection (URI) Rhinitis Sleep apnea 10+ yrs Sleep difficulties 10+ yrs Past Surgical History: Procedure Laterality Date ADENOIDECTOMY 1954 BRAIN SURGERY 2009 CATARACT EXTRACTION W/ INTRAOCULAR LENS IMPLANT Bilateral HERNIA REPAIR KIDNEY SURGERY Right RENAL COIL EMBOLISM NECK SURGERY 2022 SEPTOPLASTY 1990 SINUS SURGERY .1979 TONSILLECTOMY 1954 VENTRICULOPERITONEAL SHUNT 2008 VeriTainer 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 Allergies Allergen Reactions Other Other [...] sx in the morning documented in this encounterKansas City VA Medical [id number] History of Present illness Narrative* Eri Ngo APRN-FINANCE DIRECTOR - 06/19/2024 2:10 PM EST Images from [...] limited to risks of scarring, darker or pack puller pigmentary changes, recurrence, incomplete removal and infection. [...] soft tissue, and skin (2) Left chest [place] papule Lesion biopsy Type of biopsy: tangential [...] 1 year skin exam documented in this encounterKansas City VA Medical [id number] Telephone encounter Note* Telephone Encounter - Jaylin Florentino - 05/22/2024 1:39 PM EST Pt called in/told her what Dr Florentino said. [facility] [id number] Miscellaneous Notes* Telephone Encounter - Jaylin Florentino [...] show any facial fracture documented in this encounterNOHeartland Behavioral Health [id number] Telephone encounter Note* Telephone Encounter - Jaylin Florentino - 05/22/2024 11:44 AM EST Left message for pt to call Dr Florentino's office. NOMOzarks Community [id number] Telephone encounter Note* Telephone Encounter - Ben Florentino MD - 05/21/2024 3:08 PM EST Tell pt her CT does not show any facial fracture [facility] [id number] History of Present illness Narrative* Ben Florentino [...] pt. Pt had remote sinus surgery with Murrosa mariak Pt reports last Loki she fell striking [...] Onset Cancer Mother Araseli Goode Stroke Brother Davi Goode Diabetes Brother Davi Goode Cancer Brother Davi Goode Hearing loss Brother Davi Goode Heart failure Brother Davi Goode Hypertension Brother Davi oGode Migraines Brother Davi Goode Macular degeneration Father's [...] kidney disease) stage 3, GFR 30-59 ml/min ([facility]) ([facility]) 03/12/2023 Congenital hydrocephalus ([facility]) 02/08/2005 Dyspnea 01/07/2017 Hiatal hernia 11/16/2021 Essential hypertension (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) 03/12/2023 ADITI (obstructive sleep apnea) 03/12/2023 Osteoarthritis of right knee 05/11/2024 Status post cervical spinal fusion 06/16/2023 Spine disorder 03/21/2023 Resolved Ambulatory Problems Diagnosis Date Noted No Resolved Ambulatory Problems Past Medical History: Diagnosis Date Dementia ([facility]) Dental disease Years Ear problems Child Fatigue 10+ yrs GERD (gastroesophageal reflux disease) 5+ yrs History of occlusion of patent ductus arteriosus using embolization coil HL (hearing loss) 5 yrs Hydrocephalus ([facility]) Hypercholesteremia ([facility]/HCC) Hypertension ([facility]) Macular degeneration Meningitis spinal 1955 No blood [...] SURGERY .1979 TONSILLECTOMY 1954 VENTRICULOPERITONEAL SHUNT 2008 VeriTainer 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 Allergies Allergen Reactions Other Other [...] lung disease: animal exposure documented in this encounterKansas City VA Medical [id number] History of Present illness Narrative* Heather Bang [...] add azelastine nasal spray to [facility] [place]. Allergic contact dermatitis - patch test in 1-4 weeks. I described the need to avoid oral steroids sun bathing and topical steroids for 2 weeks prior to patch testing and the need to avoid showering exercising and sweating heavily for 48 hours after application of the patch test. documented in this encounterKansas City VA Medical [id number] History of Present illness Narrative* Heather Bang [...] longer period of time. documented in this encounterKansas City VA Medical [id number] History of Present illness Narrative* Mireille Zurita MD - 03/21/2024 11:00 AM EST Images from the original note were not included. [facility] Department of Neurological Surgery Established Patient Visit [...] Refusal of blood transfusions as patient is Yarsanism Renal artery aneurysm (CMS-HCC) Scoliosis Sleep apnea [...] MD, FAANS, FACS Board Certified Neurological Surgeon It Security Consulting Director, Department of Neurological Surgery [facility] [address] [place] [address] [facility] [address] [facility] [address] [place] [address] documented in this encounterUniversity Hospitals [facility] Work Phone: 1([phone]) 267-846010-29-2024 [facility] Telephone encounter Note* Telephone Encounter - [...] prior to proceeding with a (R) TKA @[facility]. Patient has been made aware and is understanding. Sx and upcoming appts have been cx. Referral has been sent to toe trimmer. Will r/s sx once testing is scheduled. [facility] [id number] Miscellaneous Notes* Telephone Encounter - Denise Patel MA - 03/05/2024 2:00 PM EDT Patient presents in office last week 03/01 for PAT. She informed maricel that she has had issues in the past with cheap jewelry redness and puss noted. Case was discussed with Dr. Knapp who is recommending that patient proceed with allergy testing prior to proceeding with a (R) TKA @[facility]. Patient has been made aware and is understanding. Sx and upcoming appts have been cx. Referral has been sent to toe trimmer. Will r/s sx once testing is scheduled. documented in this encounterKansas City VA Medical [id number] History of Present illness Narrative* MARCELINO Garcia - 03/01/2024 11:15 AM EDT Images from the original note were not included. GENERAL HISTORY AND PHYSICAL: NAME: Mary Goode : 1950 HISTORY OF PRESENT ILLNESS: Mary Goode is an 73 y.o. @ female. Here for surgery instructions - (R) TKA 03/15/2024 @[facility] PAST MEDICAL HISTORY: Past Medical History: Diagnosis Date Dementia (CMS/HCC) History of occlusion of patent ductus arteriosus using embolization coil Hydrocephalus (CMS/HCC) Hypercholesteremia (CMS/HCC) Hypertension (CMS/HCC) Meningitis spinal 1955 No blood products JEHOVAH WITNESS PAST SURGICAL HISTORY: Past Surgical History: Procedure Laterality Date CATARACT EXTRACTION W/ INTRAOCULAR LENS IMPLANT Bilateral HERNIA REPAIR KIDNEY SURGERY Right RENAL COIL EMBOLISM NECK SURGERY 2022 VENTRICULOPERITONEAL SHUNT 2009 CODMAN HAKIM 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 SOCIAL HISTORY: Social [...] answered and proposed surgeryscheduled. (R) TKA 03/15 @[facility] SX INSTRUCTIONS GIVEN TODAY 03/01 @11:15AM - CATHERINE PST 03/05 @10:30AM DR. PURCELL CLEARANCE 03/12 @9:15AM LUCY NOTIFIED NO PREOP PAYMENT / PRECERT ; MEDICARE Follow up for 03/29/24 @ 10:00 - Catherine concepcion/ Maricel. documented in this encounterKansas City VA Medical [id number] History of Present illness Narrative* Jr. Rush Knapp, DO - 02/13/2024 11:00 AM EDT Images from the original note were not included. HISTORY OF PRESENT ILLNESS: EST PT Mary Goode is an 73 y.o. @ female. EST PT WITH KINJAL (LAST SEEN 08/2022) RECHECK RT KNEE PAIN FOR YEARS- SYMPTOMS GRADUALLY INCREASING -POSSIBLY DISCUSS SURGERY TODAY XRAY RT KNEE TODAY EPIC 02/13/24 XRAY EXA 08/25/22 XRAY [facility] 06/24/22 XRAY [facility] 08/03/22 MRI [facility] 08/03/22 HX CORTISONE INJECTIONS DIFFICULTY DRIVING/STAIRS-PAIN LATERAL/POSTERIOR [...] Tobacco Use: Low Risk (10/19/2023) Received from [facility] Patient History Smoking Tobacco Use: Never Smokeless Tobacco Use: Never Passive Exposure: Not on file Alcohol Use: Not At Risk (04/07/2023) Received from [facility], [facility] AUDIT-C Frequency of Alcohol Consumption: Monthly or less Average Number of Drinks: 1 or 2 Frequency of Binge Drinking: Never IMAGING: XR knee 1 or 2 views right Imaging Result: X-rays AP and lateral of right knee showed severe Valgus deformity with pxjt-za-mmsv articulation to the lateral joint line. There [...] years old, or requires discharged to a long term facility, the patient may require to have additional inpatient hospital stay following the surgery. Physical therapy is contraindicated in this patient's case because of oqli-qq-rkvm articulation of the patient's knee. Rush Stepanic, D.O. documented in this encounterKansas City VA Medical [id number] History of Present illness Narrative* Mireille Zurita MD - 10/19/2023 11:30 AM EDT Images from the original note were not included. [facility] Department of Neurological Surgery Established Patient Visit [...] Refusal of blood transfusions as patient is Yarsanism Renal artery aneurysm (CMS-HCC) Scoliosis Sleep apnea [...] MD, FAANS, FACS Board Certified Neurological Surgeon It Security Consulting Director, Department of Neurological Surgery [facility] [address] [facility] [address] [place] [address] [facility] [address] [facility] [address] [place] [address] documented in this encounterUniversity [facility]als [facility] Work Phone: 1([phone]) 133-328702-08-2024 History of Present illness Narrative* Mireille Zurita MD - 06/16/2023 10:30 AM EST Images from the original note were not included. [facility] Department of Neurological Surgery Post Operative Patient [...] Refusal of blood transfusions as patient is Yarsanism Renal artery aneurysm (CMS/HCC) Scoliosis Sleep apnea [...] MD, FAANS, FACS Board Certified Neurological Surgeon It Security Consulting Director, Department of Neurological Surgery [facility] [address] [facility] [address] [place] [id number] [facility] [address] [facility] [address] [place] [address] documented in this encounterUniversity Hospitals [facility] Work Phone: 1(997) 212-224701-02-2024 History of Present illness Narrative* Mireille Zurita MD - 05/10/2023 11:30 AM EST [facility] Department of Neurological Surgery Post Operative Patient [...] Refusal of blood transfusions as patient is Yarsanism Renal artery aneurysm (CMS/HCC) Scoliosis Sleep apnea [...] MD, FAANS, FACS Board Certified Neurological Surgeon It Security Consulting Director, Department of Neurological Surgery [facility] [address] [facility] [address] [place] [address] [facility] [address] [facility] [address] [place] [address] documented in this [facility] Work Phone: [phone]) 470-476111-15-2023 Plan of care note* Care Plan - [...] RN Outcome: Progressing Goal: Prevent/manage excess moisture 03/23/20231005 by Beth Bronson RN Outcome: Adequate [...] by Beth Bronson RN Outcome: Progressing [facility] Work Phone: [phone]) 137-821711-15-2023 Miscellaneous Notes* Care Plan - Beth Bronson [...] Outcome: Progressing Goal: Participates in plan/prevention/treatment measures 03/23/20231005 by Beth Bronson RN Outcome: Adequate for Discharge 03/23/2023924 by Beth Bronson RN Outcome: Progressing Goal: Prevent/manage excess moisture 03/23/20231005 by Beth Bronson RN Outcome: Adequate for Discharge 03/23/2023924 by Beth Bronson RN Outcome: Progressing Goal: Prevent/minimize sheer/friction injuries 03/23/20231005 by Beth Bronson RN Outcome: Adequate [...] Bronson RN Outcome: Progressing 03/22/2023925 by Beth Velotta, RN Outcome: Progressing 03/22/2023921 by Beth Bronson [...] of the shift 03/22/2023927 by Beth Bronson, RN Outcome: Progressing [...] Beth Bronson RN Outcome: Progressing 03/22/2023925 by eBth Bronson RN Outcome: Progressing [...] 03/22/2023925 by Beth Bronson RN Outcome: Progressing 03/22/2023 09 by Beth Bronson RN Outcome: Progressing Goal: Pace activities to prevent fatigue by end of the shift 03/22/2023 0926 by Beth Bronson RN Outcome: [...] Progressing * Post-Procedure Note - Araseli Faustin APRN-FINANCE DIRECTOR - 03/22/2023 6:36 AM EST Feels well [...] pain control * Care Plan - Beth Brnoson RN - 03/21/2023 4:29 PM EST Problem: [...] - Assisting Anesthesia staff:Anesthesiologist: Paty Jewell MD MEAT PROCESSING CENTER MANAGER: Man Bales APRN-MEAT PROCESSING CENTER MANAGER Procedure: Procedure(s): C3-4, C4-5, C5-6, C6-7 [...] Implant Name Type Inv. Item Serial No. Change Manager Lot No. LRB No. Used Action ALLOGRAFT, TRIAD LORDOTIC 7 X 11 X 14 - [id number] - [id number] Spinal Hardware ALLOGRAFT, TRIAD LORDOTIC 7 X 11 X 14 [id number] [employer] N/A 1 Implanted ALLOGRAFT, TRIAD LORDOTIC 6 X 11 X 14 - [id number] - [id number] Spinal Hardware ALLOGRAFT, TRIAD LORDOTIC 6 X 11 X 14 [id number] [employer] N/A 1 Implanted ALLOGRAFT, TRIAD LORDOTIC 7 X 11 X 14 - [id number] - [id number] Spinal Hardware ALLOGRAFT, TRIAD LORDOTIC 7 X 11 X 14 [id number] [employer] N/A 1 Implanted ALLOGRAFT, TRIAD LORDOTIC 7 X 11 X 14 - [id number] - [id number] Spinal Hardware ALLOGRAFT, TRIAD LORDOTIC 7 X 11 X 14 [id number] [employer] N/A 1 Implanted SCREW, ACP, SELF DRILL, 3.5 X 15MM, VARIABLE - [id number] Spinal Hardware SCREW, ACP, SELF DRILL, 3.5 [...] her head was placed in a beanbag overhead distribution engineer. The arms were tucked by her side. [...] appropriately. I used the awl to place mapping pilot holes in the 5 vertebral bodies [...] None Mireille Zurita MD documented in this [facility] Work Phone: [phone]) 243-574211-15-2023 Nurse Note* Beth Bronson RN - 03/23/2023 10:02 AM EST Message sent to Dr zurita and Araseli Faustin regarding patient requesting nausea medication. Araseli states she will send Patient aware [facility] Work Phone: [phone]) [phone] Nurse Note* Beth Bronson RN - 03/23/2023 10:02 AM EST Message sent to Dr zurita and Araseli Faustin regarding patient requesting nausea medication. Araseli states she will send Patient aware documented in this encounterUniversity [facility]als [facility] Work Phone: [phone]) [phone] Plan of care note* Care Plan - [...] of the shift Outcome: Progressing [facility] Work Phone: [phone]) [phone] Hospital course Narrative* PUSHPA Voss - 03/23/2023 5:28 AM EST Discharge Diagnosis [...] Department Center 04/07/2023 1:00 PM PUSHPA Voss [id number] [place] 05/12/2023 8:30 AM Mireille Zurita MD [id number] [place] 06/16/2023 10:30 AM Mireille Zurita MD [id number] [place] PUSHPA Voss documented in this [facility] Work Phone: [phone] Hospital Discharge instructions* Discharge Instructions* PUSHPA Voss - 03/23/2023 5:28 AM EST May shower. Do not let water directly flow on incision. Dab / pat incision dry. DO NOT TOUCH INCISION Wear cervical collar at all times Walk hourly while awake. May not drive while wearing cervical collar. Keep hydrated. Soft regular diet documented in this [facility] Work Phone: [phone]) [phone] History of Present illness Narrative* Nella Murillo RN - 03/22/2023 2:46 PM EST 03/22/23 6896 Discharge Planning Living Arrangements Alone Support Systems [...] insurance, address, phone. PCP- [facility] in [place] Pt is from home, lives alone-- will [...] as pt unable to turn head, look /motor and generator brush maker stairs d/t c-collar PT Discharge Recommendations: No [...] causing loss of sleep and limitations, vp legal affairs shunt, r artery aneurysm repair, sob w/ [...] Prior Function Per Pt/Caregiver Report Level of Ro[place]: (indep) Homemaking Assistance: (indep home mgmt and [...] LLE : Within Functional Limits Outcome Measures: [facility] Basic Mobility Turning from your back to [...] log roll techs use of * Marybeth Connors OT - 03/22/2023 12:12 PM EST Occupational [...] pain, numbness/tingling B arms/legs, loss of sleep, RN OUTPATIENT SURGERY shunt, Prior to Session Communication: Bedside nurse Patient Position Received: Bed, 2 rail up Precautions: Precautions Comment: [place] collar, cervical precautions, Pain: Pain Assessment Pain Assessment: 0-10 Pain Score: 3 Pain Type: Surgical pain Pain Location: Neck Objective Cognition: Overall Cognitive Status: Within Functional Limits Home Living: Lives With: (alone; nieces supportive/will stay with patient upon discharge home. Bed/bath 1st floor, independent without device, drives. Owns rollator, cane, tub/shower with seat, grab bar & hand held shower,) Prior Function: Level of Ro[place]: Independent with ADLs and functional transfers ADL: [...] Functional Limits LUE: Within Functional Limits Outcome Measures:[facility] Daily Activity Putting on and taking off [...] Patient/Caregiver Demonstrated Understanding: yes documented in this [facility] Work Phone: [phone]) 678-232811-14-2023 Consult note* PUSHPA Metcalf - 03/22/2023 12:32 PM ESTAssociated Order(s): Inpatient consult to Medicine Inpatient consult to Medicine Consult performed by: PUSHPA Metcalf Consult ordered by: Mary Patrick APRN-FRUIT LOADER MACHINE OPERATOR Reason for consult: medical management History Of Present Illness Mary Cherry Ellyrichard is a 72 y.o. female who is [...] Refusal of blood transfusions as patient is Yarsanism, Renal artery aneurysm (CMS/HCC), Scoliosis, and Sleep [...] 100 mL/hr, Last Rate: 100 mL/hr (03/22/23 0976) PRN medications PRN medications: cyclobenzaprine, morphine, naloxone, [...] you for this consult Robert Mack DO [facility] Medicine [facility] Work Phone: [phone]) [phone] Consult note* PUSHPA Metcalf - 03/22/2023 12:32 PM ESTAssociated Order(s): Inpatient consult to Medicine Inpatient consult to Medicine Consult performed by: Leticia Farris APRN-FINANCE DIRECTOR Consult ordered by: Mary Patrick APRN-FRUIT LOADER MACHINE OPERATOR Reason for consult: medical management History Of [...] Refusal of blood transfusions as patient is Yarsanism, Renal artery aneurysm (CMS/HCC), Scoliosis, and Sleep [...] you for this consult Robert Mack DO [facility] Medicine * Fernando Christine MD - 03/21/2023 [...] patient. Fernando Christine MD documented in this [facility] Work Phone: [phone]) 490-529311-14-2023 Plan of care note* Care Plan - Beth Bronson RN - 03/22/2023 9:28 AM EST Problem: Pain Goal: Takes deep breaths with improved pain control throughout the shift 03/22/2023 09 by Beth Bronson RN Outcome: Progressing 03/22/2023 09 by Beth Bronson RN Outcome: Progressing 03/22/2023 0922 by Beth Bronson RN Outcome: Progressing Goal: [...] Beth Bronson RN Outcome: Progressing [facility] Work Phone: [phone]) [phone] Plan of care note* Care Plan - [...] Beth Bronson RN Outcome: Progressing [facility] Work Phone: [phone] Plan of care note* Care Plan - [...] by end of the shift Outcome: Progressing [facility] Work Phone: [phone] 966-295511-14-2023 Note* Post-Procedure Note - PUSHPA Voss - [...] Plan for discharge home 03/23/2023 PUSHPA Voss [facility] Work Phone: [phone] 538-839511-13-2023 Plan of care note* Care Plan - [...] goals for the shift include pain control [facility]11-13-2023 Plan of care note* Care Plan - [...] Progressing Goal: Promote skin healing Outcome: Progressing [facility] Work Phone: [phone] 202-414311-13-2023 Consult note* Fernando Christine MD - 03/21/2023 [...] care of this patient. Fernando Christine MD [facility] Work Phone: [phone]) 938-524711-13-2023 Note* Op Note - Mireille Zurita MD [...] - Assisting Anesthesia staff:Anesthesiologist: Paty Jewell MD MEAT PROCESSING CENTER MANAGER: Man Bales APRN-MEAT PROCESSING CENTER MANAGER Procedure: Procedure(s): C3-4, C4-5, C5-6, C6-7 [...] Implant Name Type Inv. Item Serial No. Change Manager Lot No. LRB No. Used Action ALLOGRAFT, TRIAD LORDOTIC 7 X 11 X 14 - [id number] - [id number] Spinal Hardware ALLOGRAFT, TRIAD [employer]OT[employer] 7 X 11 X 14 [id number] [employer] N/A 1 Implanted ALLOGRAFT, TRIAD LORDOTIC 6 X 11 X 14 - [id number] - [id number] Spinal Hardware ALLOGRAFT, TRIAD [employer]OT[employer] 6 X 11 X 14 [id number] [employer] N/A 1 Implanted ALLOGRAFT, TRIAD LORDOTIC 7 X 11 X 14 - [id number] - [id number] Spinal Hardware ALLOGRAFT, TRIAD [employer] 7 X 11 X 14 [id number] [employer] N/A 1 Implanted ALLOGRAFT, TRIAD [employer]IC 7 X 11 X 14 - [id number] - [id number] Spinal Hardware ALLOGRAFT, TRIAD [employer] 7 X 11 X 14 [id number] [employer] N/A 1 Implanted SCREW, ACP, SELF DRILL, 3.5 X 15MM, VARIABLE - [id number] Spinal Hardware SCREW, ACP, SELF DRILL, 3.5 [...] her head was placed in a beanbag overhead distribution engineer. The arms were tucked by her side. [...] appropriately. I used the awl to place mapping pilot holes in the 5 vertebral bodies [...] Complication: None Mireille Zurita MD [facility] Work Phone: [phone]) 679-894311-13-2023 Attending History and physical note* Mireille Zuirta MD - 03/21/2023 6:50 AM EST H&P reviewed. The patient was examined and there are no changes to the H&P. Source Note - Jane Caro APRN-FINANCE DIRECTOR - 03/14/2023 12:30 PM EST CPM/PAT Evaluation [...] Denies past issues with anesthesia. Reports current RN OUTPATIENT SURGERY shunt (2006), and hx of Right renal [...] flat platecervical x-ray w/Dr Zurita on 03/21/2023 [facility] Work Phone: [phone]) 359-819511-13-2023 History and physical note* Mireille Zurita MD - 03/21/2023 6:50 AM EST H&P reviewed. The patient was examined and there are no changes to the H&P. Source Note - PUSHPA Trejo - 03/14/2023 12:30 PM EST CPM/PAT Evaluation Name: Mary Cherry Russel (Mary Jo Ann Goode) /Age: 711/20/1950/72 y.o. In-Person Chief Complaint: [...] Denies past issues with anesthesia. Reports current RN OUTPATIENT SURGERY shunt (2006), and hx of Right renal [...] w/Dr Zurita on 03/21/2023 documented in this encounterUniversity [facility] Work Phone: [phone]) [phone] Evaluation note* Encounter Date Diagnosis Assessment Notes [...] symptoms. Also she can follow-up with her orthodontic assistant due to the urinary incontinence. [facility] Other 08-01-2023 History of Present illness Narrative* The patient who is a 72-year-old female came in today with a friend to discuss cervical pain and back of head pain that she has been experiencing. 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 I also suggested that she start considering getting second opinions. I am going tosee her back after the CAT scan of her cervical spine is done and we will talk about which operation to the cervical spine we would be recommending. [facility] [address] Work Phone: [phone]) [phone] Evaluation note* Encounter Date Diagnosis Assessment Notes Treatment Notes Treatment Clinical Notes Jul, RN OUTPATIENT SURGERY (ventriculoperito kym) shunt status (ICD-10 - Z98.2) [...] with the patient who understands and agrees [facility] Other 03-16-2023 Evaluation note* Encounter Date Diagnosis Assessment Notes Treatment Notes Treatment Clinical Notes Jul, RN OUTPATIENT SURGERY (ventriculoperito kym) shunt status (ICD-10 - Z98.2) [...] as-needed basis. Her shunt pumps quite well [facility] Other 02-16-2023 NotePROCEDURE: XR KNEE RT 4V [...] authenticated by: ANA ROSA BELLO Date: 2022-06-24 11:33[facility]02-08-2023 Evaluation note* Encounter Date Diagnosis Assessment [...] She reported to have Osteoporosis . Continue [facility] Other 01-19-2023 NoteHNO ID: [id number] Author: Freda Pop APRN.FINANCE DIRECTOR Service: ? Author Type: Nurse Practitioner Type: [...] Freda Pop APRN.CNP General Surgery [facility] Medical Decision Making: Problems: Moderate: 1+ chronic illnesses with change Risk: Moderate: Drug management Medical Decision Making Level: 4 - [facility]erate[facility]01-[facility]-20[facility] Instructions* Patient Instructions* Freda Pop APRN.CNP - 05/27/2022 8:56 AM EST Continue Prevacid (lansoprazole) 30 mg daily or similar indefinitely We'll check your Upper GI, let us know once you get it so that we can be sure to get the results documented in this encounterKet[facility]01-19-2023 History of Present illness Narrative* Freda Pop [...] needed based on UGI result Freda Pop APRN.[facility] General Surgery [facility] Medical Decision Making: Problems: Moderate: 1+ chronic illnesses with change Risk: Moderate: Drug management Medical Decision Making Level: 4 - Moderate documented in this encounterKettering Health [facility]burg12-01-2022 Procedure [facility]11-15-2022 Evaluation note* Encounter Date Diagnosis Assessment [...] reviewed these x-rays and confirmed the measurement [facility] Other 10-06-2022 Evaluation note* Encounter Date Diagnosis [...] her. A new referral will be sent. [facility] Other 08-17-2022 NoteHNO ID: [id number] Author: Freda Pop APRN.FINANCE DIRECTOR Service: ? Author Type: Nurse Practitioner Type: Progress Notes Filed: 12/23/2021 10:45 AM Note Text: GENERAL SURGERY CLINIC FOLLOW UP NOTE Clinic Date: 12/23/2021 Mary Cherry Russel, 71 year old [address] [facility] [address] CHIEF COMPLAINT: Patient presents with: Post Op Follow Up: S/p Paraesophageal repair 11/16/21 HPI: Mary Cherry Russel presents for follow [...] May with upper GI study Freda Pop APRN.[facility] General Surgery [facility]22 NoteHNO ID: [id number] Author: Freda Pop APRN.[facility] Service: ? Author Type: Nurse Practitioner [...] Date: 12/03/2021 Mary Goode, 71 year old [address] [place] [id number] CHIEF COMPLAINT: Patient presents with: Post Op [...] intact, no signs of infection PHYSICAL EXAM: [facility] 05/31/2006 - virtual visit GENERAL: No [...] Freda Pop APRN.EMANUEL General Surgery [facility] 03[facility] History of Present illness Narrative* Freda [...] Date: 12/03/2021 Mary Goode, 71 year old [address] [place] [address] CHIEF COMPLAINT: Patient presents with: Post Op [...] intact, no signs of infection PHYSICAL EXAM: [facility] 05/31/2006 - virtual visit GENERAL: No [...] Freda Pop APRN.CNP General Surgery [facility] December 03, 2021 documented in this encounterKettering [facility]07-28-2022 Instructions* Patient Instructions* Freda Pop APRN.CNP - [...] then activity as tolerated documented in this encounterKettering Health [facility]07-25-2022 Evaluation note* Encounter Date Diagnosis Assessment Notes [...] She reported to have Osteoporosis . Continue [facility] Other 07-12-2022 NoteHNO ID: [id number] Author: Angeli Rivas RN Service: Care Management [...] 17, 2021 TIME: 8:34 PM PAGER/CONTACT #: [phone] Disclaimer: The information in this determination is [...] the process utilized to ensure compliance with [facility] policy regarding Inpatient Admission and Observation Services. [...] physician's order as documented evidence of concurrence. [facility]07-12-2022 NoteHNO ID: [id number] Author: Tony Cox MD Service: General Surgery [...] questions during the weekdays, please contact the [place] service pager, [phone] For questions during the nights and weekends, please contact the [facility] pager, [phone] NoteHNO ID: [id number] Author: Terry Villavicencio APRN.MEAT PROCESSING CENTER MANAGER Service: Anesthesiology Author Type: Nurse Nutrition Assistant Type: Anesthesia Procedure Notes Filed: 11/16/2021 12:19 [...] Imaging Guidance Used: No SIGNATURE: Terry Villavicencio APRN.MEAT PROCESSING CENTER MANAGER PATIENT NAME: Mary Goode DATE: November 16, 2021 TIME: 12:19 PM CSN: [id number] NoteHNO ID: [id number] Author: Terry Villavicencio APRN.CRNA Service: Anesthesiology Author Type: Nurse Nutrition Assistant Type: Anesthesia Procedure Notes Filed: 11/16/2021 12:19 PM Note Text: ANESTHESIOLOGY PROCEDURE NOTE Airway General Information Procedure Start Time/Medication Administration: 11/16/2021 11:50 AM Patient location during procedure: OR Patient identity confirmed: arm band, care grocery team member and patient Staffing Anesthesiologist: Julian Dotson MD MEAT PROCESSING CENTER MANAGER: Terry Villavicencio APRN.MEAT PROCESSING CENTER MANAGER Performed by: SHEA Indications and Patient [...] November 16, 2021 TIME: 12:18 PM CSN: [id number] NoteHNO ID: [id number] Author: Riky Moura RN Service: ? Author [...] Op Instructions Handout - P[facility] Brochure - [facility] Overview Handout - Post Op Instructions Handout REFERRAL (RECOMMENDATION): None Electronically Signed By: Riky Moura RN In Department: GENERAL SURGERY [facility]07-07-2022 History of Present illness Narrative* Riky Moura [...] Op Instructions Handout - [facility] Brochure - [facility] Overview Handout - Post Op Instructions Handout REFERRAL (RECOMMENDATION): None Electronically Signed By: Riky Moura RN In Department: GENERAL SURGERY documented in this encounterKettering [facility]07-07-2022 NoteEducation ([facility]) MARY GOODE ([id number]) 1950 F [place] Date Time Provider Department 11/12/21 RIKY MOURA (RN) [facility] Reason for Visit: Education Of Patient/family [...] Encounter Status:Closed by RIKY MOURA RN on 11/12/21[facility] 11-12-2021 NoteHNO ID: [id number] Author: Atif Mendez MD Service: ? Author Type: Physician Type: Progress Notes Filed: 11/12/2021 1:39 PM Note Text: SURGERY PREOPERATIVE VISIT NOTE Name: Mary Goode Medical Record: [id number] Encounter No.: [id number] Mary Goode is a 70 year old female seen in surgery clinic today for their final preoperative assessment. INTERVAL NOTE: Patient needed to discuss regarding surgery. She is currently scheduled for a paraesophageal hernia repair. 10/21/2021 CT A/P 10/16/2021 esophageal manometry View External Imaging - Miscellaneous Imaging [ID [id number]] 10/07/2021 UGI Scan on 10/27/2021 ?8:25 AM by External Provider: GI BMI 31 PLANNED PROCEDURE: Paraesophageal hernia repair, possible Monico fundoplication. Patient is a Yarsanism. We have discussed regarding not doing a fundoplication if risk of recurrence is assessed to be on the higher side intraoperatively. PAST MEDICAL HISTORY: PAST MEDICAL HISTORY Diagnosis Date - Congenital hydrocephalus (HCC) s/p RN OUTPATIENT SURGERY shunt - Essential hypertension - ADITI (obstructive sleep apnea) - Patient is Yarsanism PAST SURGICAL HISTORY: PAST SURGICAL HISTORY Procedure Laterality Date - APPENDECTOMY - COLONOSCOPY - EGD - HYSTERECTOMY HX 2008 - PAST SURGICAL HISTORY OF 2012 coil embolization for right renal aneurysm( Aguilera) - PAST SURGICAL HISTORY OF 2006 RN OUTPATIENT SURGERY shunt - PAST SURGICAL HISTORY OF partial [...] re herniation of t (more content not included)...[facility] 11-12-2021 Nurse Note* Joan Jung Ma - 11/12/2021 11:55 AM EDT What is the reason for your visit today? Pre op Who is your referring physician? Are you having poor oral intake? NO Have you had unintentional weight loss of 15 lbs/7 Kg in the last 3-6 months? NO Bowels: constipated Wound: Temperature: No Drains: No documented in this encounterKettering Health [facility]07-07-2022 History of Present illness Narrative* Atif Mendez MD - 11/12/2021 11:30 AM EDT SURGERY PREOPERATIVE VISIT NOTE Name: Mary Goode Medical Record: [id number] Encounter No.: [id number] Mary Goode is a 70 year old female seen in surgery clinic today for their final preoperative assessment. INTERVAL NOTE: Patient needed to discuss regarding surgery. She is currently scheduled for a paraesophageal herniarepair. 10/21/2021 CT A/P 10/16/2021 esophageal manometry View External Imaging - Miscellaneous Imaging [ID [id number]] 10/07/2021 UGI Scan on 10/27/2021 8:25 AM by External Provider: GI BMI 31 PLANNED PROCEDURE: Paraesophageal hernia repair, possible Monico fundoplication. Patient is a Yarsanism. We have discussed regarding not doing a fundoplication if risk of recurrence is assessed to be on the higher side intraoperatively. 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 Although we will perform appropriate precautions [...] patient. Atif Mendez MD documented in this encounterKettering [facility]06-29-2022 Miscellaneous Notes* Telephone Encounter - Gee Meeks Ma - 11/04/2021 2:49 PM EDT Patient scheduled 11/06 [place] ECHO * Telephone Encounter - Gee Meeks Ma - 11/03/2021 10:39 AM EDT Patient is in need of Echo before 11/16 for surgery. Is anyone able to assist in getting the patientin for this? documented in this encounterKettering Health [facility]06-21-2022 Miscellaneous Notes* Telephone Encounter - Jonathon Dobson - 10/27/2021 3:58 PM EDT Records received and scanned.on 10/27 listed under GI and external imaging Misc. Not sure who scanned these. Thanks! * Telephone Encounter - Sabine Victoria Pss - 10/23/2021 12:04 PM EDT Requested reports from [facility]. Sent fax to [phone] -Manometry 6.10.22 -Upper GI 6.1.22 Sabine Victoria Pss documented in this encounterKettering Health [facility]06-15-2022 NoteHNO ID: [id number] Author: Uyen Vaughan RT(R) Service: ? Author [...] BY: RT Boni(R) October 21, 2021 8:43 [facility]06-15-2022 NoteHNO ID: [id number] Author: Eri Jeffrey RN Service: ? Author [...] Goode DATE: October 21, 2021 TIME: 8:28 [facility]06-15-2022 History of Present illness Narrative* Eri Jeffrey [...] 21, 2021 8:43 AM documented in this encounterKettering Health [facility]05-31-2022 Evaluation note* Encounter Date Diagnosis Assessment Notes Treatment Notes Treatment Clinical Notes September, Paraesophageal herni a (ICD-10 - K44.9) [facility] Other 05-26-2022 NoteHNO ID: [id number] Author: Atif Mendez MD Service: ? Author [...] 70 year old female who is a Zoroastrianism PMH of congenital hydrocephalus ( RN OUTPATIENT SURGERY shunt), HTN, patient of Monika Guerrero MD, referred to me by Dr Ramirez for hiatal hernia with severe GERD symptoms. Patient reports heart burn, excess salivation and occasional regurgitaion. She denies any ALARM features including weight loss, GIB, odynyophagia or dysphagia. Her PSH include open appendectomy, JUANI, and RN OUTPATIENT SURGERY shunt placement. The patient's most recent EGD was done in 09/03 and the report is included below Chart Review: -hx: worsening GERD - referred by Dr. Ramirez for GERD/Hiatal Hernia Scan on 09/03/2021 ?9:36 AM by Jonathon Dobson: [facility] progress note 07/22/2021 Dr. Ramirez - 08/06/2021 EGD Scan on 09/03/2021 ?9:35 AM by Jonathon Dobson: [facility] EGD 08/06/2021 Dr. Ramirez -09/17/2015 EGD Scan on 09/03/2021 ?9:33 AM by Jonathon Dobson: [facility] Operative report 09/17/2015 Dr. Walter Difficulty swallowing [...] 70 year old female who is a Zoroastrianism PMH of congenital hydrocephalus ( RN OUTPATIENT SURGERY shunt), HTN, who presents with paraesophageal hernia [...] above but most relevantly she is a Yarsanism. She does not smoke and does not consume alcohol on a regular basis. Her physical examination reveals lower midline hernia for a total abdominal hysterectomy. She has a previous history of a RN OUTPATIENT SURGERY shunt for congenital hydrocephalus, has not followed up with a neurosurgeon for several years. (more content not included)...[facility]05-26-2022 History of Present illness Narrative* Atif Mendez MD - 10/01/2021 10:37 AM EDT NEW [place] PATIENT PATIENT NAME: Mary Goode REASON FOR CONSULT: Hiatal hernia REQUESTING PHYSICIAN: Dr. Mcconnell DATE of SERVICE: 09/25/2021 TIME of SERVICE: 12:16 PM PCP: Monika Guerrero MD Chief Complaint: refractory GERD History of present illness: Mary Goode is a 70 year old female who is a Zoroastrianism PMH of congenital hydrocephalus ( RN OUTPATIENT SURGERY shunt), HTN, patient of Monika Guerrero MD, referred to me by Dr Ramirez for hiatalhernia with severe GERD symptoms. Patient reports heart burn, excess salivation and occasional regurgitaion. She denies any ALARM features including weight loss, GIB, odynyophagia or dysphagia. Her PSH include open appendectomy, JUANI, and RN OUTPATIENT SURGERY shunt placement. The patient's most recent EGD was done in09/03 and the report is included below Chart Review: -hx: worsening GERD - referred by Dr. Ramirez for GERD/Hiatal Hernia Scan on 09/03/2021 9:36 AM by Jnoathon Dobson: [facility] progress note 07/22/2021 Dr. Ramirez - 08/06/2021 EGD Scan on 09/03/2021 9:35 AM by Jonathon Dobson: [facility] EGD 08/06/2021 Dr. Ramirez -09/17/2015 EGD Scan on 09/03/2021 9:33 AM by Jonathon Dobson: [facility] Operative report 09/17/2015 Dr. Walter Difficulty swallowing [...] 70 year old female who is a Zoroastrianism PMH of congenital hydrocephalus ( RN OUTPATIENT SURGERY shunt), HTN, who presents with paraesophageal hernia [...] above but most relevantly she is a Yarsanism. She does not smoke and does not consume alcohol on a regular basis. Her physical examination reveals lower midline hernia for a total abdominal hysterectomy. She has a previous history of a RN OUTPATIENT SURGERY shunt for congenital hydrocephalus, has not followed [...] to look at the anatomy of the RN OUTPATIENT SURGERY shunt. She will see me back as soon as these are done and we will get her scheduled for surgery. Upper GI Manometry CT abdomen pelvis Yarsanism Weight loss as possible I have discussed [...] Level: 4 - Moderate documented in this encounterKettering Health [facility]05-26-2022 Nurse Note* Yolanda Castro MA - 10/01/2021 [...] Temperature: No Drains: No documented in this encounterKettering Health [facility]04-28-2022 Miscellaneous Notes* Telephone Encounter - Jonathon Dobson - 09/03/2021 9:37 AM EDT Received medical records from Dr. Ramirez. Progress Note 07/22/2021 EGD /[id number] Old Operative Report 09/17/2015 Please review. documented in this encounterKettering Health [facility]burg01-25-2022 Evaluation note* Encounter Date Diagnosis Assessment Notes [...] She reported to have Osteoporosis . Continue [employer] Other Chief complaint Narrative - Reported* Patient is being seen for an initial Neurosurgical evaluation and Patient is referred by Dr. Adan Gonzalez for a 2nd opinion on her cervical spine. * Pt. is experiencing low back and neck pain. Pt. describes her symptoms as aching with tingling in the left shoulder area, and that the symptoms are constant. [id number] [address] Work Phone: Evaluation note* Diagnosis Paraesophageal hernia- Primary Diaphragmatic hernia without mention of obstruction or gangrene documented in this encounter [facility] noteNo InformationNort [facility] Other Evaluation note* Diagnosis Paraesophageal hernia- Primary Diaphragmatic hernia without mention of obstruction or gangrene Paraesophageal hernia Diaphragmatic hernia without mention of obstruction or gangrene documented in this encounter [facility]* Diagnosis Encounter for education- Primary Counseling NOS Paraesophageal hernia Diaphragmatic hernia without mention of obstruction or gangrene documented in this encounter [facility]* Diagnosis S/P repair of paraesophageal hernia- Primary Other postprocedural status Paraesophageal hernia Diaphragmatic hernia without mention of obstruction or gangrene documented in this encounter [facility]burgEvaluation noteNo assessment information [facility] Work Phone: Evaluation note* Diagnosis S/P repair of paraesophageal hernia- Primary Other postprocedural status Long-term current use of proton pump inhibitor therapy documented in this encounter [facility]* Diagnosis Preop testing- Primary Unspecified pre-operative examination Cervical spondylosis with myelopathy Coagulation defect, unspecified (CMS/HCC) Cervical spondylosis with myelopathy Spinal stenosis, cervical region Other spondylosis with myelopathy, cervical region documented in this encounter [facility] Work Phone: [phone] note* Diagnosis Preop testing- Primary Unspecified pre-operative [...] unspecified back disorder documented in this encounter [facility] Work Phone: [phone] note* Diagnosis Cervical spondylosis with myelopathy documented in this encounter [facility] Work Phone: [phone] note* Diagnosis Cervical spondylosis with myelopathy documented in this encounter [facility] Work Phone: [phone] note* Diagnosis 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 documented in this encounter [facility] Work Phone: [phone] note* Diagnosis 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) documented in this encounter [facility] Work Phone: [phone] note* Diagnosis 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) documented in this encounter [facility] Work Phone: [phone] note* Diagnosis 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 Status post cervical spinal fusion Arthrodesis status documented in this encounter [facility] Work Phone: [phone] note* Diagnosis Paraesophageal hernia Diaphragmatic hernia without mention of obstruction or gangrene documented in this encounter [facility]* Diagnosis Cervical spondylosis with myelopathy documented in this encounter [facility] Work Phone: Evaluation note* Diagnosis Status post cervical spinal fusion- Primary Arthrodesis status documented in this encounter [facility] Work Phone: Evaluation note* Diagnosis Preop examination- Primary Preoperative examination, unspecified Paraesophageal hernia Diaphragmatic hernia without mention of obstruction or gangrene Communicating hydrocephalus (HCC) Communicating hydrocephalus Refusal of blood transfusions as patient is Yarsanism Refusal of treatment for reasons of denominational or conscience Stage 3 chronic kidney disease, unspecified whether stage 3a or 3b CKD (HCC) Essential hypertension Unspecified essential hypertension ADITI (obstructive sleep apnea) Obstructive sleep apnea (adult) (pediatric) Anxiety Anxiety state, unspecified Murmur Undiagnosed cardiac murmurs Paraesophageal hernia Diaphragmatic hernia without mention of obstruction or gangrene documented in this encounter [facility]* Diagnosis Onset Date Resolution Status Anemia acute CKD (chronic kidney disease) stage 2, GFR 60-89 ml/min acute Hyperlipidemia LDL goal <130 acute [id number] acute Hypokalemia acute Hyponatremia acute Renal artery aneurysm acute Vitamin D deficiency acute [facility] Work Phone: Evaluation note* Diagnosis Paraesophageal hernia Diaphragmatic hernia without mention of obstruction or gangrene Preop examination- Primary Preoperative examination, unspecified Paraesophageal hernia Diaphragmatic hernia without mention of obstruction or gangrene Communicating hydrocephalus (HCC) Communicating hydrocephalus Refusal of blood transfusions as patient is Yarsanism Refusal of treatment for reasons of denominational or conscience Stage 3 chronic kidney disease, unspecified whether stage 3a or 3b CKD (HCC) Essential hypertension Unspecified essential hypertension ADITI (obstructive sleep apnea) Obstructive sleep apnea (adult) (pediatric) Anxiety Anxiety state, unspecified Murmur Undiagnosed cardiac murmurs documented in this encounter [facility]* Diagnosis Primary osteoarthritis of right knee- Primary Acute pain of right knee documented in this encounter [facility]* Diagnosis Primary osteoarthritis of right knee- Primary Pre-op examination documented in this encounter [facility]* Diagnosis Primary osteoarthritis of right knee- Primary documented in this encounter [facility] note* Diagnosis Onset Date Resolution Status Anemia acute CKD (chronic kidney disease) stage 2, GFR 60-89 ml/min acute Hyperlipidemia LDL goal <130 acute [id number] acute Hypokalemia acute Hyponatremia acute Renal artery aneurysm acute Vitamin D deficiency acute RN OUTPATIENT SURGERY (ventriculoperitoneal) shunt status acute [facility] Work Phone: Evaluation note* Diagnosis Status post cervical spinal fusion Arthrodesis status documented in this encounter [facility] Work Phone: Evaluation note* Diagnosis Status post cervical spinal fusion- Primary Arthrodesis status Full incontinence of feces documented in this encounter [facility] Work Phone: Evaluation note* Diagnosis [...] July 11 8:59am Hyponatremia acute July 11 025 8:59am Vitamin D deficiency acute 2024 8:59am [facility] Work Phone: Evaluation note* Diagnosis Primary osteoarthritis of right knee- Primary Pre-op exam documented in this encounter [facility] HealthcareEvaluation note* Diagnosis Acute cystitis without hematuria- Primary documented in this encounter [facility] note* Diagnosis Primary osteoarthritis of right knee- Primary documented in this encounter [facility] note* Diagnosis Postoperative nausea- Primary documented in this encounter [facility]Evaluation note* Diagnosis Primary osteoarthritis of right knee documented in this encounter [facility]Evaluation note* Diagnosis S/P total knee arthroplasty, right- Primary documented in this encounter [facility] Healthcare[facility]* Diagnosis S/P total knee arthroplasty, right- Primary documented in this encounter [facility] note Author Jorge Ramirez [facility] April 08, 2022 9:25am Note Date/Time April 08, 2022 9 :25am [facility] [address] [place] [address] Gastroenterology H&P Signed Patient: Mary Goode MR#: [id number] : 1950 Acct:[id number] Age/Sex: 71 / F Adm Date: 2 Loc: Room: Type: [facility] Attending Dr: Jorge Ramirez MD [...] <Electronically signed by Jorge Ramirez MD> 04/08/22924 [facility] Work Phone: History and physical note Author Jorge Ramirez [facility] March 06, 2024 1:07pm Note Date/Time March 06, 2024 1 :07pm [facility] [address] [place] [address] Gastroenterology H&P Signed Patient: Mary Goode MR#: [id number] : 1950 Acct:[id number] Age/Sex: 73 / F Adm Date: 4 Loc: Room: Type: [facility] Attending Dr: Jorge Ramirez MD [...] signed by Jorge Ramirez MD> 03/06/24 1307 [facility] Work Phone: Hisobhr general Narrative - Reported* Type Description Date [...] aldoste ronism Hospitalization History same as above [facility] Other Hisjaoi general Narrative - Reported* Type Description Date [...] aldoste ronism Hospitalization History same as above [facility] Other History of Present illness Narrative* The [...] would like toproceed. * She is a Yarsanism and so we definitely discussed not using blood products. She also has a RN OUTPATIENT SURGERY shunt and and so we are going to make certain that the monitoring team knows where the tubing is so that we do not accidentally stick in electrode into it. She is going to consider her options and tell us when she wants to schedule the surgery. [id number] [address] Work Phone: Hospital Discharge instructions [...] Follow up with PCP. - Office number [phone].[facility] Work Phone: Reason for referral (narrative)* Consultation (Routine) - Pending Review Specialty Diagnoses / Procedures Referred By Heidi li Referred To Contact Physical Therapy Diagnoses 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) Status post cervical spinal fusion Mireille Zurita MD [address] [place] [address] Referral ID Status Reason Start Date Expiration Date Visits Requested Visits Authorized [id number] Pending Review Specialty Services Required 06/16/2023 06/15/2024 1 1 [facility] Work Phone: Reason for visit NarrativeReferral update - [facility]No[facility] Other Reason for visit Narrative* Imaging (Routine) - Authorized Specialty Diagnoses / Procedures Referred By Heidi t Referred To Contact Radiology Diagnoses Status post cervical spinal fusion Procedures XR cervical spine 2-3 views Mireille Zurita MD [address] [place] [address] Phone: tel: fax: Referral ID Status Reason Start Date Expiration Date Visits Requested Visits Authorized [id number] Authorized Perform Procedure 10/19/2023 10/18/2024 1 1 [facility] Work Phone: Reason for visit Narrative* Consultation (Routine) - Closed Specialty Diagnoses / Procedures Referred By Heidi li Referred To Contact Allergy Diagnoses Primary osteoarthritis of right knee Procedures NC OFFICE/OUTPATIENT NEW HIGH MDM 60 MINUTES Jr. Rush Knapp DO [address] [facility] [address] [place] [address] Phone: tel: fax: Heather Bang MD [address] [facility] [address] [place] [address] Phone: tel: fax: Referral ID Status Reason Start Date Expiration Date V isits Requested Visits Authorized [id number] Closed Specialty Services Required 03/05/2024 09/01/2024 1 1 [facility] N[facility]ative* Rehabilitation - Outpatient (Routine) - Closed Specialty Diagnoses / Procedures Referred By Heidi t Referred To Contact Physical Therapy Diagnoses Pre-op examination Primary osteoarthritis of right knee Procedures NC OFFICE/OUTPATIENT NEW HIGH MDM 60 MINUTES Estelle Perez PA [address] [place] [address] Phone: tel: fax: [facility] [address] [place] [address] Phone: tel: fax: Referral ID Status Reason Start Date Expiration Date V isits Requested Visits Authorized [id number] Closed Consult and Treat 07/05/2024 01/01/2025 30 [...] FoundDocuments on File Type Date Recorded Patient Winery [employer] Hand Expl anation Advance Directive(s) 06/23/2006 12:00 AM Documents on File Type Date Recorded Patient Win[employer] Cellar Hand Expl anation Advance Directive(s) 06/23/2006 12:00 AM Documents on File Type Date Recorded Patient Win[employer] Cellar Hand Expl anation Advance Directive(s) 11/03/2021 10:09 AM Advance Directive(s) 06/23/2006 12:00 AM Documents on File Type Date Recorded Patient Win[employer] Cellar Hand Expl anation Advance Directive(s) 11/10/2021 3:28 PM Advance Directive(s) 11/03/2021 10:09 AM Advance Directive(s) 06/23/2006 12:00 AM Advance Directive Response Recorded Date/ Time Advance Directives Yes January 11:06am Advance Directive Response Recorded Date/ Time Advance Directives Yes January 10:06am Documents on File Type Date Recorded Patient Win[employer] Cellar Hand Expl anation Advance Directive(s) 11/03/2021 10:09 AM [...] Documents on File Type Date Recorded Patient [employer] Cellar Hand Expl anation Advance Directive(s) 11/03/2021 10:09 AM [...] Documents on File Type Date Recorded Patient [employer] Cellar Hand Expl anation Power of Flat Polisher 06/11/2024 10:51 PM Sarah Zhou [email or web address]_0 100.jpeg Power of Flat Polisher 06/11/2024 10:51 PM IMG_0 101.jpeg Power of Flat Polisher 06/11/2024 10:51 PM IMG_0 102.jpeg Power of Flat Polisher 06/11/2024 10:51 PM IMG_0 103.jpeg Healthcare Agents [...] p Communication Sarah [facility] Care Agent Documents on File Type Date Recorded Patient Winery Cellar Hand Expl anation Power of Flat Polisher 06/11/2024 10:51 PM Sarah Zhou IMG_0 100.jpeg Power of Flat Polisher 06/11/2024 10:51 PM IMG_0 101.jpeg Power of Flat Polisher 06/11/2024 10:51 PM IMG_0 102.jpeg Power of Flat Polisher 06/11/2024 10:51 PM IMG_0 103.jpeg Healthcare Agents [...] ABD & P[place] [address] [place] [address] Ct Imaging Referral ID Status Reason Start Date Expiration Date Visits Requested Visits Authorized [id number] Authorized Auto-Generat ed Referral 10/01/2021 10/31/2022 1 1 Specialty Diagnoses / Procedures Referred By Contac t Referred To Contact XR IMAGING Diagnoses Paraesophageal hernia Procedures XR UPPER GI SINGLE CONTRAST RADIOLOGIC EXAM UPR [place] [address] [place] [id number] Xr Imaging Referral ID Status Reason Start Date Expiration Date Visits Requested Visits Authorized [id number] Pending Review Auto-Generat ed Referral 10/01/2021 10/31/2022 1 1 Specialty Diagnoses / Procedures Referred By Contac t Referred To Contact [facility] Diagnoses Paraesophageal hernia Procedures MANOMETRY ESOPHAGEAL ESOPHAGEAL MOTILITY STUDY W/INTERP&[place] [address] [address] [facility] [address] [place] [address] Referral ID Status Reason Start Date Expiration Date Visits Requested Visits Authorized [id number] Pending Review Auto-Generat ed Referral 10/01/2021 09/28/2022 1 1 Reason *Waiting for appt Evaluate and Treat Back and Leg Pain Diagnosis 1 DDD (degenerative di sc disease), lumbar (M51.36) Referral Organization [facility] urosurgery Referring Provider First Name Keagan Referring Provider Last Name Farrukh Referring Provider Specialty Neurologica l Surgery Referred Organization [facility] Pain Managemen t [place] Referred Provider Ziyad Ngo Referred Address [address] [place], [place],[address] Referred Provider Specialty Pain Medicin e Referral Priority Routine General Notes Liliana Sagastume 022 02:47:54 PM >Received today and sent P2P Specialty Diagnoses / Procedures Referred By Contac t Referred To Contact Radiology Diagnoses Cervical spondylosis with myelopathy Procedures XR chest 2 views Mireille Zurita MD [address] [place], [place] [phone] Referral ID Status Reason Start Date Expiration Date Visits Requested Visits Authorized [id number] Authorized Perform Procedure 03/10/2023 03/09/2024 1 1 Specialty Diagnoses / Procedures Referred By Contac t Referred To Contact Diagnoses Acute post-operative pain S/P cervical spinal fusion Araseli Faustin, MECHANICAL APPRENTICE-FINANCE DIRECTOR [address] [place], [place] [phone] Referral ID Status Reason Start Date Expiration Date Visits Re quested Visits Authorized [id number] Closed 1 1 Specialty Diagnoses / Procedures Referred By Contac t Referred To Contact Diagnoses Cervical spondylosis with myelopathy Procedures ECG 12 Lead Mireille Zurita MD [address] [place] [address] Referral ID Status Reason Start Date Expiration Date V isits Requested Visits Authorized [id number] Pending Review 03/10/2023 03/09/2024 1 1 Specialty Diagnoses / Procedures Referred By Contac t Referred To Contact Radiology Diagnoses 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 stenosis of cervical region ([facility]) Procedures XR cervical spine 2-3 views Mireille Zurita MD [address] [place] [address] Referral ID Status Reason Start Date Expiration Date Visits Requested Visits Authorized [id number] Authorized Perform Procedure 05/10/2023 05/09/2024 1 1 Specialty Diagnoses / Procedures Referred By Contac t Referred To Contact Radiology Diagnoses Cervical spondylosis with myelopathy Procedures XR cervical spine 2-3 views Mireille Zurita MD [address] [place] [address] Referral ID Status Reason Start Date Expiration Date Visits Requested Visits Authorized [id number] Authorized Perform Procedure 06/16/2023 06/15/2024 1 1 Specialty Diagnoses / Procedures Referred By Contac t Referred To Contact Radiology Diagnoses Status post cervical spinal fusion Procedures XR cervical spine 2-3 views Mireille Zurita MD [address] [place] [phone] Referral ID Status Reason Start Date Expiration Date Visits Requested Visits Authorized [id number] Authorized Perform Procedure 10/19/2023 10/18/2024 1 1 Specialty Diagnoses / Procedures Referred By Contac t Referred To Contact CT IMAGING Diagnoses Paraesophageal hernia Procedures CT ABD/PEL W IVCON CT ABD & PELVIS [place] [address] [address] [place] [address] [place] [address] Referral ID Status Reason Start Date Expiration Date V isits Requested Visits Authorized [id number] Closed Auto-Generate d Referral 10/01/2021 10/31/2022 1 [...] GFR 60-89 ml/min Hyperlipidemia LDL goal <130 [id number] Hypokalemia Hyponatremia Renal artery aneurysm Vitamin D deficiency Chief Complaint Screening E87.6 I12.9 E55.9 RENAL 6 MONTH F/U hiatal hernia hiatal hernia Reason for Visit Anemia CKD (chronic kidney disease) stage 2, GFR 60-89 ml/min Hyperlipidemia LDL goal <130 [id number] Hypokalemia Hyponatremia Renal artery aneurysm Vitamin D deficiency Chief Complaint E87.6 I12.9 E55.9 RENAL 6 MONTH F/U hiatal hernia hiatal hernia r15.9 shunt check, having MRI in the morning Reason for Visit Anemia CKD (chronic kidney disease) stage 2, GFR 60-89 ml/min Hyperlipidemia LDL goal <130 [id number] Hypokalemia Hyponatremia Renal artery aneurysm Vitamin D deficiency Chief Complaint E87.6 I12.9 E55.9 RENAL 6 MONTH F/U hiatal hernia hiatal hernia r15.9 shunt check, having MRI in the morning Reason for Visit Anemia CKD (chronic kidney disease) stage 2, GFR 60-89 ml/min Hyperlipidemia LDL goal <130 [id number] Hypokalemia Hyponatremia Renal artery aneurysm Vitamin D deficiency RN OUTPATIENT SURGERY (ventriculoperitoneal) shunt status Chief Complaint Admit Date [...] section and content) DATE CREATED AUTHOR 11/02/2017 [facility] DATE CREATED AUTHOR AUTHOR'S ORGANIZ ATION 11/25/2021 [facility] DATE CREATED AUTHOR AUTHOR'S ORGANIZ ATION 06/02/2022 [facility] DATE CREATED AUTHOR AUTHOR'S ORGANIZ ATION 07/31/2022 [facility] DATE CREATED AUTHOR AUTHOR'S ORGANIZ ATION 01/22/2023 [facility] DATE CREATED AUTHOR AUTHOR'S ORGANIZ ATION 03/30/2023 [facility] DATE CREATED AUTHOR AUTHOR'S ORGANIZ ATION 05/29/2023 [facility] DATE CREATED AUTHOR AUTHOR'S ORGANIZ ATION 01/20/2024 [facility] DATE CREATED AUTHOR AUTHOR'S ORGANIZ ATION 02/05/2024 [facility] DATE CREATED AUTHOR AUTHOR'S ORGANIZ ATION 03/22/2024 [facility] DATE CREATED AUTHOR AUTHOR'S ORGANIZ ATION 03/23/2024 [facility] DATE CREATED AUTHOR AUTHOR'S ORGANIZ ATION 10/11/2024 [facility] DATE CREATED AUTHOR AUTHOR'S ORGANIZ ATION 11/28/2024 [facility] DATE CREATED AUTHOR AUTHOR'S ORGANIZ ATION 12/24/2024 [facility] EPIC Source Comments (unrecognize d section and content) In the event this informatio n is protected by the Federal Confidentiality of Alcohol and Drug Abuse Patient Records regulations: The Federal rules restrict any use of the information to criminally investigate or prosecute any alcohol or drug abuse patient[facility] the event this information is protected by the Federal Confidentiality of Alcohol and Drug Abuse Patient Records regulations: The Federal rules restrict any use of the information to criminally investigate or prosecute any alcohol or drug abuse patient.[facility] the event this information is protected by the Federal Confidentiality of Alcohol and Drug Abuse Patient Records regulations: The Federal rules restrict any use of the information to criminally investigate or prosecute any alcohol or drug abuse patient.[facility] the event this information is protected by the Federal Confidentiality of Alcohol and Drug Abuse Patient Records regulations: The Federal rules restrict any use of the information to criminally investigate or prosecute any alcohol or drug abuse patient.[facility] the event this information is protected by the Federal Confidentiality of Alcohol and Drug Abuse Patient Records regulations: The Federal rules restrict any use of the information to criminally investigate or prosecute any alcohol or drug abuse patient.[facility] the event this information is protected by the Federal Confidentiality of Alcohol and Drug Abuse Patient Records regulations: The Federal rules restrict any use of the information to criminally investigate or prosecute any alcohol or drug abuse patient.[facility] the event this information is protected by the Federal Confidentiality of Alcohol and Drug Abuse Patient Records regulations: The Federal rules restrict any use of the information to criminally investigate or prosecute any alcohol or drug abuse patient.[facility] the event this information is protected by the Federal Confidentiality of Alcohol and Drug Abuse Patient Records regulations: The Federal rules restrict any use of the information to criminally investigate or prosecute any alcohol or drug abuse patient.[facility] the event this information is protected by the Federal Confidentiality of Alcohol and Drug Abuse Patient Records regulations: The Federal rules restrict any use of the information to criminally investigate or prosecute any alcohol or drug abuse patient.[facility] the event this information is protected by the Federal Confidentiality of Alcohol and Drug Abuse Patient Records regulations: The Federal rules restrict any use of the information to criminally investigate or prosecute any alcohol or drug abuse patient.[facility] the event this information is protected by the Federal Confidentiality of Alcohol and Drug Abuse Patient Records regulations: The Federal rules restrict any use of the information to criminally investigate or prosecute any alcohol or drug abuse patient.[facility] the event this information is protected by the Federal Confidentiality of Alcohol and Drug Abuse Patient Records regulations: The Federal rules restrict any use of the information to criminally investigate or prosecute any alcohol or drug abuse patient.[facility] the event this information is protected by the Federal Confidentiality of Alcohol and Drug Abuse Patient Records regulations: The Federal rules restrict any use of the information to criminally investigate or prosecute any alcohol or drug abuse patient.[facility] Reason for Visit (unrecogniz ed section and [...] XR chest 2 views Mireille Zurita MD [address] [place] [address] Referral ID Status Reason Start Date Expiration Date Visits Requested Visits Authorized [id number] Authorized Perform Procedure 03/10/2023 03/09/2024 1 1 Specialty Diagnoses / Procedures Referred By Heidi li Referred To Contact Diagnoses Spinal stenosis, cervical region Other spondylosis with myelopathy, cervical region Spinal stenosis, cervical region [M48.02] Other spondylosis with myelopathy, cervical region [M47.12] Procedures NC ARTHRD ANT INTERDY CERVCL BELW C2 EA ADDL NTRSPC NC ARTHRD ANT INTERBODY DECOMPRESS CERVICAL BELW C2 NC ALLOGRAFT FOR SPINE SURGERY ONLY STRUCTURAL NC ANTERIOR INSTRUMENTATION 4-7 VERTEBRAL SEGMENTS C3-4, C4-5, C5-6, C6-7 ANTERIOR DISC EXCISION/ ALLOGRAFT FUSION & PLATE FIXATION WITH FLAT PLATE CERVICAL X-RAY Mireille Zurita MD [address] [place] [address] [address] [place] [address] Referral ID Status Reason Start Date Expiration Date Visits Re quested Visits Authorized [id number] 1 1 Specialty Diagnoses / Procedures Referred By Contac t Referred To Contact Diagnoses Cervical spondylosis with myelopathy Procedures ECG 12 Lead Mireille Zurita MD [address] [place], [place] [phone] Referral ID Status Reason Start Date Expiration Date V isits Requested Visits Authorized [id number] Pending Review 03/10/2023 03/09/2024 1 1 Reason Comments Post-op Visit Specialty Diagnoses / Procedures Referred By Contac t Referred To Contact Radiology Diagnoses 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 stenosis of cervical region ([facility]) Procedures XR cervical spine 2-3 views Mireille Zurita MD [address] [place], [place] [phone] Referral ID Status Reason Start Date Expiration Date Visits Requested Visits Authorized [id number] Authorized Perform Procedure 05/10/2023 05/09/2024 1 1 Reason Comments Post-op Spine Surgery Intermittent neck stiffness and headaches. Reason Comments Refill Request Specialty Diagnoses / Procedures Referred By Contac t Referred To Contact Radiology Diagnoses Cervical spondylosis with myelopathy Procedures XR cervical spine 2-3 views Mireille Zurita MD [address] [place] [phone] Referral ID Status Reason Start Date Expiration Date Visits Requested Visits Authorized [id number] Authorized Perform Procedure 06/16/2023 06/15/2024 1 1 Reason Comments Follow-up Patient is having no symptoms. Reason Comments Radiology CT Specialty Diagnoses / Procedures Referred By Contac t Referred To Contact CT IMAGING Diagnoses Paraesophageal hernia Procedures CT ABD/PEL W IVCON CT ABD & PELVIS W/[place] [address] [address] [place] [address] [place] [address] Referral ID Status Reason Start Date Expiration Date V isits Requested Visits Authorized [id number] Closed Auto-Generate d Referral 10/01/2021 10/31/2022 1 [...] Exam Reason Onset Date Comments UTI 10/19/2024 Reason Comments Post-op Reason Comments Post-op Care Teams (unrecognized sec tion and content) Team Status: Active Member Role Status Karlie [...] Provider Active Start: June 27, 2024 Gino Antonio MD Attending Provider Active Start : June 27, 2024 Team Status: Inactive Member Role Status Karlie Purcell MD Primary Care Provider Active Start: July 11, 2024 End: July 11, 2024 Gino Antonio MD Attending Provider Active Start : July 11, 2024 End: July 11, 2024 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 Relationship Specialty Start Date End Date Monika Guerrero [address] [place] [address] PCP - General 08/13/04 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 Iron Worker Relationship Specialty Start Date End Date Monika Guerrero [address] [place] [address] PCP - General 08/13/04 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 Iron Worker Relationship Specialty Start Date End Date Monika Guerrero [facility] [place] [address] [place] [id number] PCP - General 08/13/04 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 Iron Worker Relationship Specialty Start Date End Date Imer Purcell MD [address] [place] [address] PCP - General Family Practice 11/03/21 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 Iron Worker Relationship Specialty Start Date End Date Imer Purcell MD [address] [place] [address] PCP - General Family Practice 11/03/21 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 Iron Worker Relationship Specialty Start Date End Date Imer Purcell MD [address] [place] [address] PCP - General Family Practice 11/03/21 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 Iron Worker Relationship Specialty Start Date End Date Imer Purcell MD [address] [place] [address] PCP - General Family Practice 11/03/21 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 Iron Worker Relationship Specialty Start Date End Date Imer Purcell MD [address] [place] [address] PCP - General Family Practice 11/03/21 Team Status: Inactive Member Role Status Dates Imer Purcell MD Primary Care Provider, Attending Teresa fisher Active Team Status: Inactive Member Role Status Dates Imer Purcell MD Primary Care Provider Active Adan Gonzalez Attending Provider Active Team Status: Inactive Member Role Status Dates Imer Purcell MD Primary Care Provider Active Jorge Ramirez MD Attending Provider Active 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 Iron Worker Relationship Specialty Start Date End Date Imer Purcell MD [address] [place] [address] PCP - General Family Medicine 11/03/21 Team Status: Inactive Member Role Status Dates Imer Purcell MD Primary Care Provider Active Freda Pop NP-C Attending Provider Active Team Status: Inactive Member Role Status Dates Imer Purcell MD Primary Care Provider Active Marika Friedman PA-C Attending Provider Active 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 Iron Worker Relationship Specialty Start Date End Date Imer Purcell MD [address] [place] [address] PCP - General 12/07/22 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 Iron Worker Relationship Specialty Start Date End Date Imer Purcell MD [address] [facility] [place] [address] PCP - General 12/07/22 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 Iron Worker Relationship Specialty Start Date End Date Imer Purcell MD [address] [place] [address] PCP - General 12/07/22 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 Iron Worker Relationship Specialty Start Date End Date Imer Purcell MD [address] [place] [address] PCP - General 12/07/22 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 Iron Worker Relationship Specialty Start Date End Date Imer Purcell MD [address] [place] [address] PCP - General 12/07/22 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 Iron Worker Relationship Specialty Start Date End Date Imer Purcell MD [address] [place] [address] PCP - General 12/07/22 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 Iron Worker Relationship Specialty Start Date End Date Imer Purcell MD PCP - General Family Medicine 11/03/21 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 Iron Worker Relationship Specialty Start Date End Date Imer Purcell MD [address] [place] [address] PCP - General 12/07/22 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 Iron Worker Relationship Specialty Start Date End Date Imer Purcell MD [address] [place] [address] PCP - General 12/07/22 Team Status: Inactive Member Role Status Dates Imer Purcell MD Primary Care Provide r, Attending Provider Active Start: December 08, 2023 End: December 08, 2023 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 Iron Worker Relationship Specialty Start Date End Date Imer Purcell MD PCP - General Family Medicine 11/03/21 Team Status: Inactive Member Role Status Dates Imer Purcell MD Primary Care Provider Active Start: January 19, 2024 End: January 19, 2024 Gino Antonio MD Attending Provider Active Start : January 19, 2024 End: January 19, 2024 Team Status: Inactive Member Role Status Dates Imer Purcell MD Primary Care Provider Active Start: January 24, 2024 End: January 24, 2024 Gino Antonio MD Attending Provider Active Start : January 24, 2024 End: January 24, 2024 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 Iron Worker Relationship Specialty Start Date End Date Monika Guerrero [address] [place] [address] PCP - General 08/13/04 11/02/21 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 Iron Worker Relationship Specialty Start Date End Date Imer Purcell MD [address] [place] [address] PCP - General Family Medicine 05/24/23 Imer Purcell MD [address] [place] [address] Family Medicine 05/24/23 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 Iron Worker Relationship Specialty Start Date End Date Imer Purcell MD [address] [place] [facility] [place] [address] PCP - General Family Medicine 05/24/23 Imer Purcell MD [address] [place] [facility] [address] Family Medicine 05/24/23 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 Iron Worker Relationship Specialty Start Date End Date Imer Purcell MD [address] [place] [address] PCP - General Family Medicine 05/24/23 Imer Purcell MD [address] [place] [facility] [place] [address] Family Medicine 05/24/23 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 Iron Worker Relationship Specialty Start Date End Date Imer Purcell MD [address] [place] [address] PCP - General Family Medicine 05/24/23 Imre Purcell MD [address] [place] [facility] [address] Family Medicine 05/24/23 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 Iron Worker Relationship Specialty Start Date End Date Imer Purcell MD [address] [place] [facility] [address] PCP - General Family Medicine 05/24/23 Imer Purcell MD [address] [place] [facility] [address] Family Medicine 05/24/23 Team Status: Inactive Member [...] March 08, 2024 End: March 08, 2024 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 Iron Worker Relationship Specialty Start Date End Date Imer Purcell MD [address] [place] [address] PCP - General 12/07/22 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 Iron Worker Relationship Specialty Start Date End Date Imer Purcell MD [address] [place] [address] PCP - General 12/07/22 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 Iron Worker Relationship Specialty Start Date End Date Imer Purcell MD [address] [place] [address] PCP - General Family Medicine 05/24/23 Imer Purcell MD [address] [place] [address] Family Medicine 05/24/23 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 Iron Worker Relationship Specialty Start Date End Date Imer Purcell MD [address] [place] [address] PCP - General Family Medicine 05/24/23 Imer Purcell MD [address] [place] [facility] [place] [address] Family Medicine 05/24/23 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 Iron Worker Relationship Specialty Start Date End Date Imer Purcell MD [address] [place] [address] PCP - General Family Medicine 05/24/23 Imer Purcell MD [address] [place] [address] Family Medicine 05/24/23 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 Iron Worker Relationship Specialty Start Date End Date Imer Purcell MD [address] [place] [address] PCP - General Family Medicine 05/24/23 Imer Purcell MD [address] [place] [address] Family Medicine 05/24/23 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 Iron Worker Relationship Specialty Start Date End Date Imer Purcell MD [address] [place] [address] PCP - General Family Medicine 05/24/23 Imer Purcell MD [address] [place] [address] Family Medicine 05/24/23 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 Iron Worker Relationship Specialty Start Date End Date Imer Purcell MD [address] [place] [address] PCP - General Family Medicine 05/24/23 Imer Purcell MD [address] [place] [facility] [place] [address] Family Medicine 05/24/23 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 Iron Worker Relationship Specialty Start Date End Date Imer Purcell MD [address] [place] [address] PCP - General Family Medicine 05/24/23 Imer Purcell MD [address] [place] [address] Family Medicine 05/24/23 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 Iron Worker Relationship Specialty Start Date End Date Imer Purcell MD [address] [place] [address] PCP - General Family Medicine 05/24/23 Imer Purcell MD [address] [place] [address] Family Medicine 05/24/23 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 Iron Worker Relationship Specialty Start Date End Date Imer Purcell MD [address] [place] [address] PCP - General Family Medicine 05/24/23 Imer Purcell MD [address] [place] [address] Family Medicine 05/24/23 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 Iron Worker Relationship Specialty Start Date End Date Imer Purcell MD [address] [place] [address] PCP - General Family Medicine 05/24/23 Iemr Purcell MD [address] [place] [facility] [place] [address] Family Medicine 05/24/23 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 Iron Worker Relationship Specialty Start Date End Date Imer Purcell MD [address] [place] [address] PCP - General Family Medicine 05/24/23 Imer Purcell MD [address] [place] [address] Family Medicine 05/24/23 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 Iron Worker Relationship Specialty Start Date End Date Imer Purcell MD [address] [place] [address] PCP - General Family Medicine 05/24/23 Imer Purcell MD [address] [place] [address] Family Medicine 05/24/23 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 Iron Worker Relationship Specialty Start Date End Date Imer Purcell MD [address] [place] [address] PCP - General Family Medicine 05/24/23 Imer Purcell MD [address] [place] [address] Family Medicine 05/24/23 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 Iron Worker Relationship Specialty Start Date End Date Imer Purcell MD [address] [place] [facility] [place] [address] PCP - General Family Medicine 10/08/24 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 Iron Worker Relationship Specialty Start Date End Date Imer Purcell MD [address] [place] [facility] [place] [address] PCP - General Family Medicine 10/08/24 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 Iron Worker Relationship Specialty Start Date End Date Imer Purcell MD [address] [place] [facility] [place] [address] PCP - General Family Medicine 10/08/24 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 Iron Worker Relationship Specialty Start Date End Date Imer Purcell MD [address] [place] [facility] [place] [address] PCP - General Family Medicine 10/08/24 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 Iron Worker Relationship Specialty Start Date End Date Imer Purcell MD [address] [place] [facility] [place] [address] PCP - General Family Medicine 10/08/24 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 Iron Worker Relationship Specialty Start Date End Date Imer Purcell MD [address] [place] [facility] [place] [address] PCP - General Family Medicine 10/08/24 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 Iron Worker Relationship Specialty Start Date End Date Imer Purcell MD [address] [place] [facility] [address] PCP - General Family Medicine 10/08/24 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 Iron Worker Relationship Specialty Start Date End Date Imer Purcell MD [address] [place] [phone] PCP - General Family Medicine 10/08/24 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 Iron Worker Relationship Specialty Start Date End Date Imer Purcell MD [address] [place] [address] PCP - General Family Medicine 10/08/24 Goals [...] 203 (Given - Provider: Luzma Adhikari RN) 2099 (Due) ceFAZolin in dextrose (iso-os) (Ancef) IVPB [...] 2103 (Given - Provider: Janett Galvan RN) 08 (Given - Provider: Beth Bronson RN)2038 (Given - Provider: Luzma Adhikari, MINDY) 0920 (Given - Provider: Beth Bronson RN)2099 [...] RN) 0617 (See Alternative - Provider: Luzma Adhikari, MINDY) potassium chloride CR (Klor-Con) ER tablet 10 [...] Provider: Lexy Holly RN)0737 (Paused - Provider: Man Bales APRN-MEAT PROCESSING CENTER MANAGER - Comment: Switch to gravity)0738 (New Bag - Provider: Man Bales APRN-SHEA)1251 (Stopped - Provider: CLAIR Pickering) lactated Ringer's [...] pain scores based on patient preference? Yes 215 (Given - Provider: Janett Galvan RN) 112 [...] BE BASED ON THE PRIMARY CLINICAL RECORDS. [employer] [facility]. provides no warranty or guarantee of the accuracy or completeness of information in this document.
[2025-01-02 10:10] LABS: Hematocrit 36.1 % (36.0-48.0); Hemoglobin 11.6 g/dL (12.0-16.0); Mean Corpuscular HGB Conc 32.1 g/dL (29.9-35.2); Mean Corpuscular Hemoglobin 29.4 pg (26.7-34.0); Mean Corpuscular Volume 91.4 fL (81.0-99.0); Platelet Count 371 10^3/uL (150-450); Red Blood Count 3.95 10^6/uL (4.20-5.40); White Blood Count 8.1 10^3/uL (4.0-11.0)
[2025-01-02 10:17] LABS: Glucose Urine UA NEGATIVE (NEGATIVE)
[2025-01-02 10:25] LABS: Cast Seen? NONE SEEN #/LPF (NONE SEEN); Crystals Seen? None Seen #/HPF (None Seen); Protein Creatinine Ratio Urine 0.18; Total Protein Urine Random 15.4 mg/dL (<=11.9)
[2025-01-02 10:32] LABS: Albumin Level 3.6 g/dL (3.4-5.0); Anion Gap 11.5; Blood Urea Nitrogen 17.0 mg/dL (7.0-18.0); Calcium 9.0 mg/dL (8.5-10.1); Carbon Dioxide 28.7 mmol/L (21.0-32.0); Chloride 103 mmol/L (98-107); Estimated GFR (African America >60 (>=60 mL/min/1.73m^2); Estimated GFR (Non-African Ame 56 (>=60 mL/min/1.73m^2); Glucose 106 mg/dL (74-106); Magnesium 2.0 mg/dL (1.8-2.4); Potassium 4.2 mmol/L (3.5-5.1); Sodium 139 mmol/L (136-145); Uric Acid 3.0 mg/dL (2.6-6.0)
[2025-01-02 10:33] LABS: Iron 49.0 ug/dL (50.0-170.0); Percent Iron Saturation 15.4 %; Total Iron Binding Capacity 319.0 ug/dL (250.0-450.0)
[2025-01-02 10:59] LABS: Ferritin 46.0 ng/mL (8.0-252.0)
== END 2025-01-02 09:50 | disposition home or self-care (01) ==
LOC: LAB 09:49
PROVIDERS: PCP Family Medicine; Visit Provider Internal Medicine
DX: E87.6 Hypokalemia (principal); N18.30 Chronic kidney disease, stage 3 unspecified; E87.1 Hypo-osmolality and hyponatremia; I12.9 Hypertensive chronic kidney disease with stage 1 through stage 4 chronic kidney disease, or unspecified chronic kidney disease; E78.5 Hyperlipidemia, unspecified; E55.9 Vitamin D deficiency, unspecified
CPT/HCPCS: 80069; 81001; 82306; 82570; 82728; 83540; 83550; 83735; 83970; 84156; 84550; 85027

== ENCOUNTER 2025-01-18 19:04 | Emergency (ER) | payer MEDICARE, SELFPAY ==
--- OUTSIDE RECORDS SUMMARY | 2014-02-20 04:30 | XMS_ITS | Continuity of Care Document ---
Author Organization [facility] Address [address] [place] [address] Phone Care Team Providers Care Sample Steamer Name Role Phone Elijah Dillon Unavailable Unavailable [...] Providers Copied on Encounter PREVENTIVE COUNSELING, INDIV [facility], [address] [place], [place], [id number], [place] tel:[phone] [facility] Need for prophylactic vaccination with combined diphtheria-tet anus-pertussis (DTP) (DTaP) vaccineNeed for prophylactic vaccination and inoculation, other viral diseases Irina Rowland. [address] [place], [place], [id number], [place]. tel:[phone] Family History Family Member Type Diagnosis Age At Onset No Information Immunizations Vaccine Date Status Comments Zoster administered Source: New Imm unization Record Tdap administered Note: VIS given for all vaccines administered today. ; Source: New Immunization Record Payers Payer name Insurance type Covered republican ID Eduardo lennon(s) Medical [place] CI [id number] Social History Type Description Quantity Date Captured [...]
--- OUTSIDE RECORDS SUMMARY | 2025-01-08 09:59 | XMS_ITS | Continuity of Care Document ---
Author Organization [facility] Address [address] [place] [address] Phone Care Team Providers Care Recreational Therapist Name Role Phone Rico Agarwal MD Primary Care Provider [phone] Rebecca Barbosa Attending Provider [phone] Care Teams Patient Care Team Team Status: Active Member Role Status Dates Rico Agarwal MD Primary Care Provider Active Patient Care Team Team Status: Active Member Role Status Karlie Agarwal MD Primary Care Provider Active Start: January 02, 2025 Gino Barbosa MD Attending Provider Active Start : January 02, 2025 Patient Care Team Team Status: Inactive Member Role Status Karlie Agarwal MD Primary Care Provider Active Start: January 08, 2025 End: January 08, 2025 Gino Barbosa MD Attending Provider Active Start : January 08, 2025 End: January 08, 2025 Chief Complaint and Reason for Visit Chief Complaint Admit Date renal 6 month f/u January 08, 2025 1:18pm Reason for Visit Admit Date Asymptomatic bacteriuria January 08, 2025 1:18pm CKD (chronic kidney disease) stage 3, GF R 30-59 ml/min January 08, 2025 1:18pm Hyperlipidemia LDL goal <130 January 082024 1:18pm Hypertensive chronic kidney disease with stage 1 through stage 4 chronic ki January 08, 2025 1:18pm Hypokalemia January 08, 2025 1:18pm Hyponatremia January 08, 2025 1:18pm Iron deficiency anemia Tracy 2nd, 20 25 1:18pm Vitamin D deficiency January 08, 2025 1:18pm Allergies, Adverse Reactions, Alerts Allergen Type Severity Reaction Last Updated Verified Status No Known Allergies Allergy Unknown Sept2024 9:01am Yes Active Social History Smoking Status Status Start Date End Date Date of Observa tion Never smoked tobacco (finding) July 16, 2024 9:15am Observation Status Observation Response Date of Response Legal Sex Female (finding) Sex Assigned At Female 1950 Family History Relationship Condition Age at Onset Recorded Date/T roney mother Malignant neoplasm of rectum Unknown Unknown Family history of colon cancer Unknown father Heart disease Unknown Unknown brother Diabetes mellitus Unknown Heart disease Unknown History of stroke Unknown Malignant neoplasm of stomach Unknown brother Diabetes mellitus Unknown Problems Active Problems Medical Problem Onset Date Status Urinary incontinence Unknown Active CKD (chronic kidney disease) stage 2, GFR 60-89 ml/min Unknown Active CKD (chronic kidney disease) stage 3, GFR 30-59 ml/min Unknown Active Anemia Unknown Active Hypertensive chronic kidney disease with stage 1 through stage 4 chronic kidney disease, or unspecified chronic kidney disease Unknown Active Hyponatremia Unknown Active Hyperlipidemia LDL goal <130 Unknown Act kyle Iron deficiency anemia Unknown Active Asymptomatic bacteriuria Unknown Active 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 Ramirez's office. Unknown Ferrous Sulfate (Iron (Ferrous Sulfate)) 325 mg (65 mg iron) Tablet Discont inued 325 MG PO Twice daily Dece er 2021 1:00am July 19, 2023 10:47 am Losartan 50 mg tablet Active 50 MG PO Daily August 05, 2021 12:00a m Complies with drug therapy Venlafaxine 75 mg tablet Discont inued 75 MG PO Daily August 05, 2021 12:00a m July 19, 2023 10:51 am Labetalol 200 mg tablet Discont inued 200 MG PO Twice daily August 05, 2021 12:00a m [facility] 1:33p m Potassium Chloride 10 mEq tablet extended release Active 10 MEQ PO Daily August 05, 2021 12:00a m Complies with drug therapy Omeprazole 40 mg capsule,del ayed release(DR/ EC) Discont inued 40 MG PO Twice daily August 05, 2021 12:00a m August 06, 2021 11:25 am Colesevelam 625 mg tablet Discont inued 1875 MG PO Twice daily August 05, 2021 12:00a m July 19, 2023 10:49 am Amlodipine 10 mg tablet Discont inued 10 MG PO Daily August 05, 2021 12:00a m July 19, 2023 10:49 am Ferrous Sulfate (Iron) 325 mg (65 mg iron) Tablet Discont inued 325 MG PO Daily August 05, 2021 12:00a m Decem ricky 2021 9:42a m Gabapentin 300 mg Capsule Active 300 MG PO Daily as needed for Pain August 05, 2021 12:00a m Complies with drug therapy Hydrochloro thiazide 25 mg tablet Active 25 MG PO Daily August 05, 2021 12:00a m Complies with drug therapy Cholecalcif wes (Vitamin D3) (Vitamin D3) 25 mcg (1,000 unit) Capsule Discont inued 25 MCG PO Daily August 05, 2021 12:00a m July 19, 2023 10:49 am Coenzyme Q10 (Coq-10) 100 mg Capsule Discont inued 200 MG PO Daily August 05, 2021 12:00a m Decem 2021 9:51a m Denosumab (Prolia) 60 mg/mL Syringe Active 60 MG SUBCUT EVERY 6 MONTHS August 05, 2021 12:00a m Complies with drug therapy Aspirin (Aspirin Child) 81 mg Tablet,Chew able Discont inued 81 MG PO Daily August 05, 2021 12:00a m July 19, 2023 10:49 am Lansoprazol e 30 mg capsule,del ayed release(DR/ EC) Discont inued 30 MG PO Twice daily 140 70 August 06, 2021 12:00a m July 19, 2023 10:47 am Venlafaxine 75 mg tablet Discont inued 75 MG PO Twice daily July 19, 2023 10:47a m July 11, 2024 10:12 am Venlafaxine 75 mg tablet Active 75 MG PO Daily July 11, 2024 10:12a m Complies with drug therapy Labetalol 200 mg tablet Active 200 MG PO Once 2024 1:28pm Complies with drug therapy Atorvastati n 20 mg tablet Active 20 MG PO Bedtime July 19, 2023 12:00a m Complies with drug therapy Ferrous Sulfate 325 mg (65 mg iron) tablet Active 325 MG PO Daily July 19, 2023 12:00a m Complies with drug therapy Lansoprazol e 30 mg capsule,del ayed release(DR/ EC) Active 30 MG PO Daily July 19, 2023 12:00a m Complies with drug therapy Donepezil 5 mg tablet Active 5 MG PO Daily at bedtime July 19, 2023 12:00a m Complies with drug therapy Amlodipine 10 mg tablet Active 10 MG PO Every morning 2023 12:00a m Complies with drug therapy Cholecalcif wes (Vitamin D3) 50 mcg (2,000 unit) capsule Active 50 MCG PO Daily 2023 12:00a m Complies with drug therapy Cefdinir 300 mg capsule Discont inued 600 MG PO Daily July 11, 2024 1:00am July 16, 2024 10:04 am Cetirizine (Zyrtec) 10 mg tablet Active 10 MG PO Daily as needed 2024 12:00a m Complies with drug therapy Ascorbate Calcium (Vitamin C) 500 mg tablet Active 500 MG PO Daily 2024 12:00a m Complies with drug therapy Multivitami n (Daily Multi-Vitam in) tablet Active 1 TAB PO Every morning 2024 12:00a m Complies with drug therapy Aspirin 81 mg tablet Active 81 MG PO Daily 2024 12:00a m Complies with drug therapy Lactobacill us Acidophilus 500 million cell capsule Active 500 MMU CELLS PO Daily 2024 12:00a m Complies with drug therapy Immunizations Immunization Event Date Not Given Reason Dose Number Survey Coordinator Lot Number Vaccine Information Statement (VIS) Detail Administration Location COVID-19 mRNA-1273 (Moderna) July 11, 2020 COVID-19 mRNA-1273 (Moderna) August 08, 2020 COVID-19 mRNA-1273 (Moderna) March 11, 2021 COVID-19 mRNA-1273 (Moderna) August 10, 2020 COVID-19 (MODERNA) 12Y and older February 22, 2024 COVID-19 mRNA Bivalent Booster (Moderna) June 05, 2022 Trivalent Influenza Vaccine October 08, 2015 Relevant Diagnostic Tests and/or Laboratory Data Laboratory Results Test Collection Date/Time Result Date/Time Result Interpretation Reference Range Result Comment Performing Site Urine Random Creatini ne January 02, 2025 9:50am January 02, 2025 9:50am 84.52 mg/dL 20.00-300. 00 Urine Other Casts January 02, 2025 9:50am NONE SEEN #/LPF NONE SEEN Parathyr oid Hormone (Intact) January 02, 2025 10:00am January 02, 2025 10:00am 52 pg/mL 15-65 Performed at: [facility] [id number] Director: Jamari Bray PhD, Phone: [phone] Hematocr it January 02, 2025 10:00am January 02, 2025 10:00am 36.1 % 36.0-48.0 Magnesiu m Level January 02, 2025 10:00am January 02, 2025 10:00am 2.0 mg/dL 1.8-2.4 Uric Acid January 02, 2025 10:00am January 02, 2025 10:00am 3.0 mg/dL 2.6-6.0 Anion Gap January 02, 2025 10:00am January 02, 2025 10:00am 11.5 25-Wilmer xy Vitamin D Total January 02, 2025 10:00am January 02, 2025 10:00am 38.1 ng/mL <20 ng/mL Vit D [id number] -<30 ng/mL Vit D insufficien t30-100 ng/mL Vit D sufficient> 100 ng/mL Potential Toxicity Ferritin January 02, 2025 10:00am January 02, 2025 10:00am 46.0 ng/mL 8.0-252.0 Iron Saturati on January 02, 2025 10:00am January 02, 2025 10:00am 15.4 % Urine Protein/ Creatini ne Ratio January 02, 2025 9:50am January 02, 2025 9:50am 0.18 Urine Other Crystals January 02, 2025 9:50am None Seen #/HPF None Seen Hemoglob in January 02, 2025 10:00am January 02, 2025 10:00am 11.6 g/dL Below low normal 12.0-16.0 Albumin January 02, 2025 10:00am January 02, 2025 10:00am 3.6 g/dL 3.4-5.0 Iron Level January 02, 2025 10:00am January 02, 2025 10:00am 49.0 ug/dL Below low normal 50.0-170.0 Urine Random Total Protein January 02, 2025 9:50am January 02, 2025 9:50am 15.4 mg/dL Above high normal <=11.9 Urine Bacteria January 02, 2025 9:50am TRACE #/HPF Abnormal (applies to non-numeric results) NONE SEEN Mean Corpuscu lar Hemoglob in January 02, 2025 10:00am January 02, 2025 10:00am 29.4 pg 26.7-34.0 BUN/Crea tinine Ratio January 02, 2025 10:00am January 02, 2025 10:00am 17.5 Total Iron Binding Capacity January 02, 2025 10:00am January 02, 2025 10:00am 319.0 ug/dL 250.0-450. 0 Urine Bilirubi n January 02, 2025 9:50am NEGATIVE NEGATIVE Mean Corpuscu lar Hemoglob in Concent January 02, 2025 10:00am January 02, 2025 10:00am 32.1 g/dL 29.9-35.2 Blood Urea Nitrogen January 02, 2025 10:00am January 02, 2025 10:00am 17.0 mg/dL 7.0-18.0 Urine Occult Blood January 02, 2025 9:50am NEGATIVE NEGATIVE Mean Corpuscu lar Volume January 02, 2025 10:00am January 02, 2025 10:00am 91.4 fL 81.0-99.0 Calcium Level January 02, 2025 10:00am January 02, 2025 10:00am 9.0 mg/dL 8.5-10.1 Urine Appearan ce January 02, 2025 9:50am CLEAR CLEAR Mean Platelet Volume January 02, 2025 10:00am January 02, 2025 10:00am 8.8 fL Below low normal 9.5-13.5 Chloride Level January 02, 2025 10:00am January 02, 2025 10:00am 103 mmol/L 98-107 Urine Color January 02, 2025 9:50am LT. YELLOW YELLOW Platelet Count January 02, 2025 10:00am January 02, 2025 10:00am 371 10 3/uL 150-450 Carbon Dioxide Level January 02, 2025 10:00am January 02, 2025 10:00am 28.7 mmol/L 21.0-32.0 Urine Glucose (UA) January 02, 2025 9:50am NEGATIVE mg/dL NEGATIVE Red Blood Count January 02, 2025 10:00am January 02, 2025 10:00am 3.95 10 6/uL Below low normal 4.20-5.40 Creatini ne January 02, 2025 10:00am January 02, 2025 10:00am 0.97 mg/dL 0.55-1.02 Urine Ketones January 02, 2025 9:50am NEGATIVE mg/dL NEGATIVE Red Cell Distribu tion Width January 02, 2025 10:00am January 02, 2025 10:00am 12.9 % 11.0-15.0 Estimate d GFR ( ) January 02, 2025 10:00am January 02, 2025 10:00am >60 >=60 mL/min/1.7 3m 2 Urine Leukocyt e Esterase January 02, 2025 9:50am SMALL Abnormal (applies to non-numeric results) NEGATIVE Correcte d White Blood Count January 02, 2025 10:00am January 02, 2025 10:00am 8.1 10 3/uL 4.0-11.0 Estimate d GFR (Non-Afr ican Botswanan January 02, 2025 10:00am January 02, 2025 10:00am 56 Below low normal >=60 mL/min/1.7 3m 2 Urine Mucus January 02, 2025 9:50am NONE SEEN NONE SEEN Glucose Level January 02, 2025 10:00am January 02, 2025 10:00am 106 mg/dL 74-106 Urine Nitrite January 02, 2025 9:50am NEGATIVE NEGATIVE Potassiu m Level January 02, 2025 10:00am January 02, 2025 10:00am 4.2 mmol/L 3.5-5.1 Urine pH January 02, 2025 9:50am 7.0 5.0-9.0 Sodium Level January 02, 2025 10:00am January 02, 2025 10:00am 139 mmol/L 136-145 Urine Protein January 02, 2025 9:50am NEGATIVE mg/dL NEG/TRACE Phosphor us Level January 02, 2025 10:00am January 02, 2025 10:00am 3.2 mg/dL 2.6-4.7 Urine RBC January 02, 2025 9:50am 0-2 #/HPF 0-2 Urine Specific Peetz January 02, 2025 9:50am 1.010 1.005-1.02 5 Urine Squamous Epitheli al Cells January 02, 2025 9:50am FEW #/LPF Abnormal (applies to non-numeric results) NONE/RARE Urine Urobilin ogen January 02, 2025 9:50am 0.2 EU/dL 0.2-1.0 Urine WBC January 02, 2025 9:50am 5-10 #/HPF Abnormal (applies to non-numeric results) NONE SEEN Vital Signs Vital Reading Result Reference Range Collection Date/Time Height 63 [in_i] January 08, 2025 1:21pm Weight 82.55 kg January 08, 2025 1:21pm Body Temperature 99.1 [degF] 97.6-99.0 January 082024 1:21pm Heart Rate 76 /min 60-100 January 08, 2025 1:21pm Respiratory rate 18 /min 12-January 082024 1:21pm Oxygen saturation by Pulse oximetry 98 % 95-100 January 08, 2025 1:21pm BP Systolic 131 mm[Hg] 100-140 January 08, 2025 1:21pm BP Diastolic 71 mm[Hg] 60-100 January 08, 2025 1:21pm BMI (Body Mass Index) 32.2 kg/m2 2024 1:21pm Advance Directives Advance Directive Response Recorded Date/ Time Advance Directives Yes January 11:06am Insurance Providers Guarantor Jo Ann Armstrong Address [address] [place] [address] Contact Info. Home Phone: Payer Policy Id Subscriber's Name Subscriber Id Effectiv e Date Expiration Date MMO [id number] Franky BC/BS LILIANE [id number] Jo Ann Armstrong [id number] Encounters Encounter Location(s) Arrival/Admit Date Discharge/Depart Date Provider(s) Non-patient / Non-visit -[facility] January 02, 2025 9:50am Gino Barbosa MD Departed Physician/Prov ider Office Visit -[facility] January 08, 2025 1:18pm January 08, 2025 1:58pm Gino Barbosa MD Recent Diagnosis Onset Date Admit Date Asymptomatic bacteriuria Unknown 2024 1:18pm CKD (chronic kidney disease) stage 3, GFR 30-59 ml/min Unknown January 08, 2025 1:18pm Hyperlipidemia LDL goal <130 Unknown Jan 1:18pm Hypertensive chronic kidney disease with stage 1 through stage 4 chronic ki Unknown January 08, 2025 1:18p m Hypokalemia Unknown January 08 1:18pm Hyponatremia Unknown January 08 1:18pm Iron deficiency anemia Unknown January 08, 2025 1:18pm Vitamin D deficiency Unknown January 082024 1:18pm Assessments Diagnosis Onset Date Resolution Status Admit Date Asymptomatic bacteriuria acute January 08, 2025 1:18pm CKD (chronic kidney disease) stage 3, GFR 30-59 ml/min acute 2024 1:18pm Hyperlipidemia LDL goal <130 acute January 08, 2025 1:18pm Hypertensive chronic kidney disease with stage 1 through stage 4 chronic ki acute January 1:18pm Hypokalemia acute January 1:18pm Hyponatremia acute Tracy 2n d, 2025 1:18pm Iron deficiency anemia acute Se ptember 2024 1:18pm Vitamin D deficiency acute Sept ember 2024 1:18pm Plan of Treatment Author Gino Barbosa [facility] Authored January 08, 2025 1:57pm She has longstanding HTN lik david has CKD as a result of it. Her b/l serum creatinine is 1-1.1 mg/dl. Her renal US was unremarkable. I have discussed with her the importance of good HTN control to slow down the progression of disease. She has no absolute contraindication for right knee surgery from renal standpoint. I have explained to her possible risk of NURA due to the perioperative hemodynamic changes and she understood and verbalized information. Blood pressure is controlled. She appears to be euvolemic. Continue current antihypertensive medication. Calcium and Vit D are within normal limit. Continue oral vitamin D. She has hypokalemia due to the diuretic induced renal potassium wasting. Continue oral potassium supplement She had hyponatremia and appears to be euvolemic. Her hyponatremia was likely due to HCTZ. She has normal cortisol. Continue fluid restriction to 50 ounces a day. Continue statins. Continue follow with the PCP for monitoring of lipid profile and LFTs. She has a bacteriuria but denies any other symptoms. Will monitor without any antibiotics. Likely she has bacteria due to contamination. She has iron deficiency anemia due to the right kidney radiology. Advised to continue oral iron. Agree with a colonoscopy. Future Tests Future scheduled test information is unavailable Pending Tests Test Name Ordered Date Scheduled Date Renal Function Panel January 08, 2025 1:54pm 6 Months Future Visits Future appointment information is unavailable Referrals to Other Providers Referral information is unavailable Future Procedures Procedure Name Ordered Date Scheduled Date Hemogram CBC Without Diff January 08, 2025 1: 53pm 6 Months Iron and TIBC Profile January 08, 2025 1:53pm 6 Months Ferritin January 08, 2025 1:53pm 6 Mon ths Magnesium January 08, 2025 1:53pm 6 Mon ths Protein Creat Ratio Ur Random January 08 1:53pm 6 Months Parathyroid Hormone Intact January 08, 2025 1 :53pm 6 Months Uric Acid January 08, 2025 1:53pm 6 Mon ths Vitamin D 25 Hydroxy Total January 08, 2025 1 :53pm 6 Months Future Medications Future medication information is unavailable Patient Instructions Patient instructions are unavailable
--- OUTSIDE RECORDS SUMMARY | 2025-01-18 19:13 | XMS_ITS | Encounter Summary ---
Author Organization [facility] Address [address] [place] [id number] Care Team Providers Care Lithographic Printing Machinist Name Role Phone Monika Guerrero Primary Care Provider [phone] Rico Agarwal MD Primary Care Provider [phone] Source Comments In the event this information is protected by the Federal Confidentiality of Alcohol and Drug AbusePatient Records regulations: The Federal rules restrict any use of the information to criminally investigate or prosecute any alcohol or drug abuse patient.[facility] Encounter Details Date Type Department Care Team (Late st Contact Info) Description 10/17/2021 Get Medical Advice General Surgery [address] [address] [facility] [address] [place] [address] [place] [address] [address] [facility] [address] [place] [address] Manometry Social History Tobacco Use Types Packs/Day [...] N ot on file 10/01/2021 Data from: https://www.[email or web address].medicine.[email or web address].[email or web address] Last address used for calculation [address] [...] on filedocumented in this encounter Care Teams Lithographic Printing Machinist Relationship Specialty Start Date End Date Monika Guerrero [address] [facility] [place] [phone] PCP - General 08/13/04 11/02/21 Rico Agarwal MD [address] [facility] [place] [phone] PCP - General Family Medicine 11/03/21 documented as of this encounter
--- OUTSIDE RECORDS SUMMARY | 2025-01-18 19:13 | XMS_ITS | Encounter Summary ---
Author Organization [facility] Address [address] [place] [address] Care Team Providers Care Waiter/Waitress Dining Car Name Role Phone Rico Agarwal MD Primary Care Provider [phone] Encounter Details Date Type Department Care Team (Late st Contact Info) Description 10/22/2024 Orders Only [facility] [address] [place] [address] Barbara Blackwood MA Social History Tobacco Use Types Packs/Day [...] Care Team (Late st Contact Info) Description 01/28/2025 8:30 AM EDT Office Visit [facility] [address] [place] [phone] Cintia Collado MD [address] [place] [address] 02/18/2025 8:30 AM EDT Procedure Visit [facility] [place] [facility] [address] [place] [address] Cintia Collado MD [address] [place] [address] 06/18/2025 10:50 AM EST Office Visit [facility] [place] [facility] [address] [place] [address] Janay Ngo APRN-MALL PLANT CARETAKER [address] [place] [address] 12/18/2025 10:30 AM EDT Office Visit [facility] [place] [facility] [address] [place] [address] Jr. Simba Knapp, DO [address] [facility] [address] [place] [address] documented as of this encounter Visit Diagnoses Not on filedocumented in this encounter Care Teams Waiter/Waitress Dining Car Relationship Specialty Start Date End Date Rico Agarwal MD [address] [place] [phone] PCP - General Family Medicine 10/08/24 documented as of this encounter
--- OUTSIDE RECORDS SUMMARY | 2025-01-18 19:13 | XMS_ITS | Encounter Summary ---
Author Organization [facility] Address [address] [place] [address] Care Team Providers Care Hosiery Bagger Name Role Phone Rico Agarwal MD Primary Care Provider [phone] Reason for Referral * Consultation (Routine) - Authorized Specialty Diagnoses / Procedures Referred By Contree t Referred To Contact Physical Therapy Diagnoses Primary osteoarthritis of right knee Procedures [place] OFFICE/OUTPATIENT [facility] MDM 60 MINUTES Jr. Simba Knapp DO [address] [address] Phone: tel: fax: [place] [facility] [address] [place] [address] Phone: tel: fax: Referral ID Status Reason Start Date Expiration Date Visits Requested Visits Authorized [id number] Authorized Specialty Services Required 11/16/2024 05/15/2025 10 10 Encounter Details Date Type Department Care Team (Late st Contact Info) Description 11/16/2024 Orders Only [facility] [address] [place] [phone] [place], Barbara, MA Primary osteoarthritis of right knee (Primary Dx) Social History Tobacco Use Types Packs/Day Years [...] Dermatology [address] [place] [address] Cintia Collado MD [address] [place] [address] 02/18/2025 8:30 AM EDT Procedure Visit [facility] [address] [place] [address] Cintia Collado MD [address] [place] [address] 06/18/2025 10:50 AM EST Office Visit [facility] [address] [place] [address] Janay Ngo, DATA QUALITY CONSULTANT-BUGGY LADLE TENDER [address] [place] [address] 12/18/2025 10:30 AM EDT Office Visit [facility] [address] [place] [address] Jr. Simba Knapp, [address] [facility] [address] [place] [address] Scheduled Referrals Name Type Priority Associated Diagnoses Orde r Schedule Ambulatory referral to Physical Therapy Outpatient Referral Routine Primary osteoarthritis of right knee Expected: 11/16/2024 (Approximate), Expires: 05/19/2025 documented as of this encounter Visit Diagnoses Diagnosis Primary osteoarthritis of right knee- Primary documented in this encounter Care Teams Hosiery Bagger Relationship Specialty Start Date End Date Rico Agarwal MD [address] [place] [phone] PCP - General Family Medicine 10/08/24 documented as of this encounter
--- OUTSIDE RECORDS SUMMARY | 2025-01-18 19:13 | XMS_ITS | Encounter Summary ---
Author Organization [facility] Address [address] [place] [address] Care Team Providers Care Mobile Plant Operators Name Role Phone Monika Guerrero Primary Care Provider [phone] Rico Agarwal MD Primary Care Provider [phone] Source Comments In the event this information is protected by the Federal Confidentiality of Alcohol and Drug AbusePatient Records regulations: The Federal rules restrict any use of the information to criminally investigate or prosecute any alcohol or drug abuse patient.[facility] Encounter Details Date Type Department Care Team (Late st Contact Info) Description 10/02/2021 Get Medical Advice General Surgery [address] [facility] [address] [place] [address] [place] [address] [address] [facility] [address] [place] [address] CT Abdomen/Pel Social History Tobacco Use Types [...] N ot on file 10/01/2021 Data from: https://www.neighborhoodatlas.medicine.[facility].edu/. Last address used for calculation [address] [...] on filedocumented in this encounter Care Teams Mobile Plant Operators Relationship Specialty Start Date End Date Monika Guerrero [address] [phone] PCP - General 08/13/04 11/02/21 Rico Agarwal MD [address] [phone] PCP - General Family Medicine 11/03/21 documented as of this encounter
--- OUTSIDE RECORDS SUMMARY | 2025-01-18 19:14 | XMS_ITS | Encounter Summary ---
Author Organization [facility] Address [address] [place] [address] Care Team Providers Care Licensed Nurse Practitioner Name Role Phone Rico Agarwal MD Primary Care Provider [phone] Source Comments In the event this information is protected by the Federal Confidentiality of Alcohol and Drug AbusePatient Records regulations: The Federal rules restrict any use of the information to criminally investigate or prosecute any alcohol or drug abuse patient.[facility] Reason for Visit * Reason Comments Refill Request Encounter Details Date Type Department Care Team (Late st Contact Info) Description 04/26/2024 Refill General Surgery [address] [place] [address] Freda Pop APRN.NETWORK OPERATIONS TECHNICIAN [address] [address] [facility] [address] [place], [place] [id number] Refill Request Social History Tobacco Use Types [...] N ot on file 05/23/2022 Data from: https://www.neighborhoodatlas.medicine.[facility]/. Last address used for calculation [address] [...] 1:51 PM EDT Zakia Montiel RN * Are you blind or do [...] 1:51 PM EDT Zakia Montiel RN * Because of a physical, mental, or emotional condition, do you have difficulty doing errands alone such as visiting a doctor's office or shopping? Answer Date of Assessment Author No 11/17/2021 1:51 PM NIRMALAT Zakia Montiel RN documented as of this encounter Mental [...] gangrene documented in this encounter Care Teams Licensed Nurse Practitioner Relationship Specialty Start Date End Date Rico Agarwal MD PCP - General Family Medicine 11/03/21 documented as of this encounter
--- OUTSIDE RECORDS SUMMARY | 2025-01-18 19:14 | XMS_ITS | Encounter Summary ---
Author Organization [facility] Address [address] [place] [address] Phone Care Team Providers Care Pill Maker Name Role Phone Rico Agarwal MD Primary Care Provider [phone] Encounter Details Date Type Department Care Team ([facility] st Contact Info) Description 12/07/2022 Scanned Document [facility] [address] [place] [address] Conversion, Onbase Social History Tobacco Use Types [...] on filedocumented in this encounter Care Teams Pill Maker Relationship Specialty Start Date End Date Rico Agarwal MD [address] [facility] [place] [address] PCP - General 12/07/22 documented as of this encounter
--- OUTSIDE RECORDS SUMMARY | 2025-01-18 19:14 | XMS_ITS | Encounter Summary ---
Author Organization [facility] Address [address] [place] [address] Care Team Providers Care Scrap Metal Burner Name Role Phone Rico Agarwal MD Primary Care Provider [phone] Encounter Details Date Type Department Care Team (Late st Contact Info) Description 11/01/2024 Orders Only [facility] [address] [place] [address] Jr. Simba Knapp, DO 112 [facility] [address] [place] [address] Social History Tobacco Use Types Packs/Day Years [...] [address] [place] [address] 02/18/2025 8:30 AM EDT Procedure Visit [facility] [place] [facility] [address] [place] [address] Cintia Collado MD [address] [place] [address] 06/18/2025 10:50 AM EST Office Visit [facility] [place] [facility] [address] [place] [address] Janay Ngo, HAND FORMER-RAIL LOADER [address] [place] [address] 12/18/2025 10:30 AM EDT Office Visit [facility] [place] [facility] [address] [place] [address] Jr. Simba Knapp, 112 [facility] [address] [place] [address] documented as of this encounter Procedures Procedure Name Priority Date/Time Associated Diagnosis Comments URINALYSIS, MANUAL ONLY Routine 10/31/2024 8:12 AM EDT documented in this encounter Results * Urinalysis, manual only (10/31/2024 8:12 AM EDT) Urine Urine specimen obtained by clean catch procedure / Unknown Jr. Simba Knapp DO LAB URINE ORDERABLES Fi nal Result documented in this encounter Visit Diagnoses Not on filedocumented in this encounter Care Teams Scrap Metal Burner Relationship Specialty Start Date End Date Rico Agarwal MD [address] [facility] [place] [address] PCP - General Family Medicine 10/08/24 documented as of this encounter
--- OUTSIDE RECORDS SUMMARY | 2025-01-18 19:14 | XMS_ITS | Clinical Summary ---
Author Organization [facility] Address [address] [facility], [address] [place] [address] Care Team Providers Care Senior Hr Generalist Name Role Phone Rico Agarwal MD Primary Care Provider [phone] Allergies No known active allergies Medications ibuprofen [...] Not on file Insurance MEDICARE Care Teams Senior Hr Generalist Relationship Specialty Start Date End Date Rico Agarwal MD [address] [place] [address] PCP - General Family Medicine 08/16/17
--- OUTSIDE RECORDS SUMMARY | 2025-01-18 19:14 | XMS_ITS | Clinical Summary ---
Author Organization [facility] Address [address] [place] [address] Phone Care Team Providers Care Recreation Therapy Teacher Name Role Phone Rico Agarwal MD Primary Care Provider [phone] Allergies No known active allergies Medications amLODIPine [...] Monitored by Dr. Barbosa ( Nephrology in [place]) Stable. Essential hypertension 03/12/2023 Overview (03/12/2023): Last [...] (03/12/2023): Last Assessment & Plan: Assessment: s/p ORTHOTIST PROSTHETIST shunt (2006), was followed by neurosurgery Currently [...] place to sleep or slept in a assisted (including now)? No 03/21/2023 Comments No Sex [...] Date Last Done Comments CT Colonography 1952 FIT-DNA (Cologuard) 1950 FIT 1952 Lipid Panel 1950 Medicare Annual Wellness Visit (AWV) 1950 Sigmoidoscopy 1950 Hepatitis C Screening 1970 Mammogram 1992 MMR Vaccines (1 of 1 - Standard series) 03/20/2014 Zoster Vaccines (2 of 3) 04/17/2014 02/20/2014 Bone Density Scan 2017 DTaP/Tdap/Td Vaccines (2 - Td or Tdap) 02/21/2024 02/20/2014 COVID-19 Vaccine ( - season) 2025 02/22/2024, 06/05/2022, 03/11/2021, Additional history exists Influenza Vaccine (#1) 2025 , 03/02/2023, 05/06/2022, Additional history exists Colonoscopy 04/08/2032 04/08/2022 Colorectal Cancer Screening 04/08/2032 RSV High Risk: (Elderly (60+) or Population) Completed 03/02/2023 Pneumococcal Vaccine Completed 02/22/2024 HIB Vaccines Aged [...] has spine surgery No Alix Lutz RN Medical Devices Implanted Type Area President & Ceo [employer] Device Identifier Shelf Expiration Date Model / Serial / Lot Allograft, Triad Lordotic 7 X 11 X 14 - [id number] - [id number] Implanted:Qty : 1 on 03/21/2023 by Giovani Goldsmith MD at [facility] Spinal Hardware N/A: Spine Cervical [employer] 10/13/2027 [id number] / [id number] / Allograft, Triad Lordotic 6 X 11 X 14 - [id number] - [id number] Implanted:Qty : 1 on 03/21/2023 by Giovani Goldsmith MD at [facility] Spinal Hardware N/A: Spine Cervical [employer] 05/18/2027 [id number] / [id number] / Allograft, Triad Lordotic 7 X 11 X 14 - [id number] - [id number] Implanted:Qty : 1 on 03/21/2023 by Giovani Goldsmith MD at [facility] Spinal Hardware N/A: Spine Cervical [employer] 10/13/2027 [id number] / [id number] / Allograft, Triad Lordotic 7 X 11 X 14 - [id number] - [id number] Implanted:Qty : 1 on 03/21/2023 by Giovani Goldsmith MD at [facility] Spinal Hardware N/A: Spine Cervical [employer] 10/13/2027 [id number] / [id number] / Screw, Acp, Self Drill, 3.5 X 15mm, Variable - [id number] - [id number] Implanted:Qty : 10 on 03/21/2023 by Giovani Goldsmith MD at [facility] Spinal Hardware N/A: Spine Cervical [employer] [id number] / [id number] / 70 Mm 2.1 H Plate Implanted:Qty : 1 on 03/21/2023 by Giovani Goldsmith MD at [facility] N/A: Spine Cervical [employer] [id number] / [id number] / Additional Health Concerns Active Problems Noted Date Diagnosed Date Patient has spine surgery 02/18/2023 Insurance MEDICARE PART A AND B AETNA SENIOR SUPPLEMENT Advance Directives For more information, please contact: [phone] (Available ) Documents on File Type Date Recorded Patient Pricing Consultant Expl anation Power of Developer Advocate 03/21/2023 * Full Code (Latest Code Status on [...] does not warra nt discussion Care Teams Recreation Therapy Teacher Relationship Specialty Start Date End Date Rico Agarwal MD [address] [facility] [address] PCP - General 12/07/22
--- OUTSIDE RECORDS SUMMARY | 2025-01-18 19:14 | XMS_ITS | Encounter Summary ---
Author Organization [employer] Address [id number] [address] [place] [address] Care Team Providers Care Tool And Fixture Repairer Name Role Phone Provider, Siddharth MD Primary Care Provider Un available Encounter Details Date Type Department Care Team (Late st Contact Info) Description 08/06/2024 Telephone [facility] - Family Medicine [address] [place] [address] Lisa Espinoza CMA Social History Tobacco Use [...] on filedocumented in this encounter Care Teams Tool And Fixture Repairer Relationship Specialty Start Date End Date Provider, MD Siddharth PCP - General 09/10/13 documented as of this encounter
--- OUTSIDE RECORDS SUMMARY | 2025-01-18 19:14 | XMS_ITS | Encounter Summary ---
Author Organization [facility] Address [address] [place] [address] Care Team Providers Care Azure Developer Name Role Phone Rico Agarwal MD Primary Care Provider [phone] Rico Agarwal MD Unavailable [phone] Rico Agarwal MD Primary Care Provider [phone] Encounter Details Date Type Department Care Team (Late st Contact Info) Description 07/16/2024 External Result Encounter [facility] External Department Unsolicited Jr. Simba Knapp, DO [address] [address] Social History Tobacco Use Types Packs/Day Years [...] Description 01/28/2025 8:30 AM EDT Office Visit [facility] [place] [address] [place] [address] Cintia Collado MD [address] [place] [address] 02/18/2025 8:30 AM EDT Procedure Visit [facility] [address] [place] [address] Cintia Collado MD [address] [place] [address] 06/18/2025 10:50 AM EST [facility] [address] [place] [address] Janay Ngo, SITE DAMAGE PREVENTION TECHNICIAN-COMPUTER TERMINAL OPERATOR [address] [place] [address] 12/18/2025 10:30 AM EDT [facility] [address] [place] [address] Jr. Simba Knapp, DO [address] [place] [address] documented as of this encounter Procedures Procedure Name Priority Date/Time Associated Diagnosis Comments ECG 12-LEAD 07/16/2024 9:28 AM EDT documented in this encounter Results * ECG 12 lead (07/16/2024 9:28 AM EDT) 07/16/2024 9:28 AM EDT Misael [facility] - 07/16/2024 4:14 PM EDT [facility] Main [address] [address] Electrocardiograph Report Signed Patient: Mary Goode MR#: [id number] : 1950 Acct:[id number] Age/Sex: 73 / F ADM Date: 07/16/24 Loc: PS Room: Type: REG CLI Attending Dr: Simba Knapp Jr, DO [...] change was found Confirmed by Simba Morel ([id number]) on 07/16/2024 4:14:04 PM Referred By: Electronically Signed By: Simba Morel Transcribed By: MUS Signed By Simba Morel MD 07/16/24 1614 Procedure Note Janet Morel MD - 07/16/2024 [facility] Main [place] [address] [place] [address] Electrocardiograph Report Signed Patient: Mary Goode [facility]#: [id number] : 1950cct:[id number] Age/Sex: 73 / FADM Date: 07/16/24 Loc: PS Room:Type: [facility] CLI Attending Dr: Simba Knapp [...] change was found Confirmed by Simba Morel ([id number]) on 07/16/2024 4:14:04 PM Referred By: Electronically Signed By: Simba Morel Transcribed By: MUS Signed By Simba Morel MD 07/16/24 1614 us JrKiersten Knapp DO ECG ORDERABLES Final R esult [facility] [place] [address], documented in this encounter Visit Diagnoses Not on filedocumented in this encounter Care Teams Azure Developer Relationship Specialty Start Date End Date Rico Agarwal MD PCP - General Family Medicine 05/24/23 10/07/24 Rico Agarwal MD [address] [place] [address] PCP - General Family Medicine 10/08/24 Rico Agarwal MD Family Medicine 05/24/23 10/07/24 documented as of this encounter
--- OUTSIDE RECORDS SUMMARY | 2025-01-18 19:14 | XMS_ITS | Clinical Summary ---
Author Organization [facility] Address [address] [place] [address] Care Team Providers Care Order Manager Name Role Phone Rico Agarwal MD Primary Care Provider [phone] Allergies Active Allergy Reactions Criticality Noted Date Comments Other Other 03/01/2024 Medications amLODIPine (Norvasc) 10 MG tablet 3 Active atorvastatin (Lipitor) 20 MG tablet 3 Active hydroCHLOROthiazid e (HYDRODiuril) 25 MG tablet 3 Active labetalol (Normodyne) 200 MG tablet Take 1 tablet by mouth in the morning and 1 tablet before bedtime. 3 Active losartan (Cozaar) 50 MG tablet 3 Active venlafaxine XR (Effexor XR) 75 MG [...] each nostril as directed. 90 mL 3 4 025 Active potassium chloride CR (Klor-Con) 10 [...] 5'2 Weight: 184 Dx M17.11 1 Units 5 Active Active Problems Problem Noted Date Diagnosed [...] Monitored by Dr. Barbosa ( Nephrology in [place]) Stable. Essential hypertension 03/12/2023 Overview (05/11/2024): Last Assessment & Plan: Assessment: Managed with med Date: BP: 11/03/2021 131/64 10/01/2021 122/57 Stable. Murmur 03/12/2023 Overview (05/11/2024): Last Assessment & Plan: Assessment: /6 MARGIE best heard at [facility] Pt. reports [...] Encounters Date Type Department Care Team Description 12/20/2024 10:15 AM EDT Office Visit [facility] [address] [place] [address] Sam Perez PA S/P total knee arthroplasty, right (Primary Dx) 12/20/2024 10:05 AM EDT Ancillary Procedure [facility] [address] [place] [address] 12/20/2024 Bamboo flowsheet [facility] [address] [place] [address] Sam Perez PA 12/20/2024 Travel 12/17/2024 Travel 11/19/2024 10:30 AM EDT Office Visit [facility] [address] [place] [address] Sam Perez PA S/P total knee arthroplasty, right (Primary Dx) 11/19/2024 Telephone [facility] [address] [place] [address] Yashira Kimbrough LPN 11/19/2024 Bamboo flowsheet [facility] [address] [place] [address] Sam Perez PA 11/19/2024 Travel 11/18/2024 Travel 11/16/2024 Orders Only [facility] [address] [place] [address] Barbara Blackwood MA Primary osteoarthritis of right knee (Primary Dx) 11/12/2024 Telephone [facility] [address] [place] [address] Patel Claros, LILLIAM 11/06/2024 Telephone [facility] [address] [place] [address] Sam Perez PA 11/02/2024 Telephone [facility] [address] [facility] [address] Jr. Simba Knapp, DO 11/01/2024 Orders Only [facility] [address] [place] [address] Jr. Simba Knapp, DO 10/29/2024 Clinisync Result Encounter [facility] External Department Unsolicited Jr. Simba Knapp, DO 10/22/2024 Orders Only [facility] [address] [facility] [place] [address] Barbara Blackwood MA 10/19/2024 Telephone [facility] [address] [facility] [address] [place] [address] Sam Perez PA UTI from Last 3 Months Family History Medical History Relation Name Comments Cancer Brother 1 Davi Raifsnider Diabetes Brother 1 Davi Raifsnider Hearing loss Brother 1 Davi Raifsnider Heart failure Brother 1 Davi Raifsnider Hypertension Brother 1 Davi Raifsnider Migraines Brother 1 Davi Raifsnider Stroke Brother 1 Davi Raifsnider Diabetes Brother 2 Elijah (Brother) Hearing loss Brother 2 Elijah (Brother) Stroke Brother 2 Elijah (Brother) Hearing loss Brother 3 Ziyad (Brother) Heart failure Father Tin Sanabriaskimberly Hypertension Father Tin Racatesnider Migraines Father Tinmayra Sanabriaskimberly Macular degeneration Father's Sister Cancer Mother Araseli Goode Melanoma Neg Hx Relation Name Status Comments Brother 1 Davi Goode Brother 2 Elijah (Brother) Brother 3 Ziyad [...] Dermatology [address] [place] [address] Cintia Collado MD [address] [place] [address] 02/18/2025 8:30 AM EDT Procedure Visit [facility] [address] [place] [address] Cintia Collado MD [address] [place] [address] 06/18/2025 10:50 AM EST Office Visit [facility] [address] [place] [address] Janay Ngo, STATUARY PAINTER-REGIONAL SALES CONSULTANT [address] [place] [address] 12/18/2025 10:30 AM EDT Office Visit [facility] [address] [place] [address] Jr. Simba Knapp, DO [address] [place] [address] Health Maintenance Due Date Last Done Comments CT Colonography 1952 Colonoscopy 1952 Colorectal Cancer Screening 1950 FIT-DNA 1952 FIT 1952 FOBT 1950 Sigmoidoscopy 1950 Mammogram 1992 Influenza Vaccine (#1) 2025 4, 03/02/2023, 05/06/2022, Additional history exists Pneumococcal Vaccine: 65+ Years Completed 4 Procedures Procedure Name Priority Date/Time Associated Diagnosis Comments XR KNEE 1-2 VIEWS RIGHT Routine 12/20/2024 10:01 AM EDT S/P total knee arthroplasty, right URINALYSIS, MANUAL ONLY Routine 10/31/2024 8:12 AM EDT [facility] URINE MICROSCOPIC ONLY Routine 10/29/2024 2:15 PM EDT [facility] UA (CLEAN/CATCH) MICROSCOPIC IF INDICATE Routine 10/29/2024 2:15 PM EDT from Last 3 Months Results * XR knee 1 or 2 views right (12/20/2024 10:01 AM EDT) Anatomical Region Laterality Modality Lower Extremities, Knee Right Radiogra phic Imaging Narrative 12/20/2024 10:33 AM EDT Imaging Result: AP and Lateral of right knee: Surgical position and alignment of prosthetic components without evidence of loosening or wear to femora, tibial or patellar components, The alignment appears to be anatomic. No evidence of accelerated or asymmetric wear to tibial tray or patella button. No evidence of fracture or dislocation. Impression: Unremarkable right total knee arthroplasty Sam BENSON IMG XR PROCEDURES Final Resul t * Urinalysis, manual only (10/31/2024 8:12 AM EDT) Urine Urine specimen obtained by clean catch procedure / Unknown us Jr. Simba Knapp DO LAB URINE ORDERABLES Fi nal Result * (ABNORMAL) [facility] URINE MICROSCOPIC ONLY (10/29/2024 2:15 PM EDT) [facility] WBC 2-5(A) NONE SEEN #/HPF TB[facility] TBH RBC 0-2 0 - 2 #/HPF [facility] BACTERIA URINE TRACE(A) NONE SEEN #/HPF [facility] MUCUS URINE SMALL(A) NONE SEEN [facility] SQUAMOUS EPITHELIAL CELL URINE FEW(A) NONE/RARE #/LPF [facility] TRANSITIONAL EPI CELLS URINE FEW(A) NONE SEEN #/LPF [facility] CRYSTALS SEEN? None Seen None Seen #/HPF [facility] CAST SEEN? NONE SEEN NONE SEEN #/LPF [facility] 10/29/2024 2:1 5 PM EDT 10/29/2024 3:09 PM EDT Narrative [facility] - 10/29/2024 3:23 PM EDT us Jr. Simba Knapp DO CL[facility]NC Final R esult [facility] * (ABNORMAL) [facility] UA (CLEAN/CATCH) MICROSCOPIC IF INDICATE (10/29/2024 2:15 PM EDT) COLOR URINE YELLOW YELLOW TBH CLARITY URINE CLEAR CLEAR [facility] SPECIFIC GRAVITY URINE 1.010 1.005 - 1.025 TBH PH URINE 6.5 5.0 - 9.0 TB[facility] PROTEIN URINE NEGATIVE NEG/TRACE mg/dL TBH GLUCOSE URINE UA NEGATIVE NEGATIVE mg/dL [facility] BILIRUBIN URINE NEGATIVE NEGATIVE TBH KETONES URINE NEGATIVE NEGATIVE mg/dL TB[facility] BLOOD URINE NEGATIVE NEGATIVE TBH NITRITE URINE NEGATIVE NEGATIVE TB[facility] UROBILINOGEN URINE 0.2 0.2 - 1.0 EU/dL TBH LEUKOCYTE ESTERASE URINE TRACE(A) NEGATIVE TB[facility] URINE MICROSCOPIC INDICATED YES [facility] 10/29/2024 2:15 PM EDT 10/29/2024 3:09 PM EDT Narrative [facility] - 10/29/2024 3:23 PM EDT [facility] from Last 3 Months Insurance MEDICARE AET[employer] Advance Directives Documents on File Type Date Recorded Patient Foot Tender Expl anation Power of Aircraft Structural Fitter 06/11/2024 10:51 PM Sarah Zhou [email or web address].jpeg Power of Aircraft Structural Fitter 06/11/2024 10:51 PM [email or web address].jpeg Power of Aircraft Structural Fitter 06/11/2024 10:51 PM [email or web address].jpeg Power of Aircraft Structural Fitter 06/11/2024 10:51 PM [email or web address] [id number].jpeg Healthcare Agents on File Name Relationship Healthcare Agent Tobiasma pérez Communication Sarah Abelardo Friend Health Care Agent Care Teams Order Manager Relationship Specialty Start Date End Date Rico Agarwal MD [address] [place] [address] PCP - General Family Medicine 10/08/24
--- OUTSIDE RECORDS SUMMARY | 2025-01-18 19:14 | XMS_ITS | Encounter Summary ---
Author Organization [facility] Address [address] [place] [address] Phone Care Team Providers Care Malt House Kiln Operator Name Role Phone Rico Agarwal MD Primary Care Provider [phone] Encounter Details Date Type Department Care Team (Late st Contact Info) Description 05/10/2023 Scanned Document [facility] [address] [facility] [address] [place] [address] Giovani Goldsmith MD [address] [place] [address] Social History Tobacco Use Types [...] place to sleep or slept in a long term (including now)? No 03/21/2023 Comments No Sex [...] documented as of this encounter Care Teams Malt House Kiln Operator Relationship Specialty Start Date End Date Rico Agarwal MD [address] [id number] PCP - General 12/07/22 documented as of this encounter
--- OUTSIDE RECORDS SUMMARY | 2025-01-18 19:14 | XMS_ITS | Clinical Summary ---
Author Organization [employer] tem Address [facility] [id number] [address] [place] [address] Care Team Providers Care Building Carpenter Helper Name Role Phone Provider, Siddharth RAMOS Primary Care Provider Un available Social History Tobacco Use Types Packs/Day Years [...] Not on file Insurance MEDICARE Care Teams Building Carpenter Helper Relationship Specialty Start Date End Date Siddharth Preciado MD PCP - General 09/10/13
--- OUTSIDE RECORDS SUMMARY | 2025-01-18 19:14 | XMS_ITS | Encounter Summary ---
Author Organization [facility] Address [address] [place] [address] Phone Care Team Providers Care Fire Behavior Analyst Name Role Phone Rico Agarwal MD Primary Care Provider [phone] Encounter Details Date Type Department Care Team ([facility] st Contact Info) Description 01/20/2023 Scanned Document [facility] LEGACY [address] [place] [address] Conversion, Onbase Social History Tobacco Use Types [...] on filedocumented in this encounter Care Teams Fire Behavior Analyst Relationship Specialty Start Date End Date Rico Agarwal MD [address] [facility] [place] [address] PCP - General 12/07/22 documented as of this encounter
--- OUTSIDE RECORDS SUMMARY | 2025-01-18 19:14 | XMS_ITS | Encounter Summary ---
Author Organization [facility] Address [address] [place] [address] Care Team Providers Care Metal Sheet Roller Operator Name Role Phone Rico Agarwal MD Primary Care Provider [phone] Source Comments In the event this information is protected by the Federal Confidentiality of Alcohol and Drug AbusePatient Records regulations: The Federal rules restrict any use of the information to criminally investigate or prosecute any alcohol or drug abuse patient.[facility] Encounter Details Date Type Department Care Team (Late st Contact Info) Description 11/25/2021 Patient Msg General Surgery [address] [place], [place] [id number] Provider, Deedee Operative Report dated 11/16/2021 Social [...] N ot on file 10/01/2021 Data from: https://www.neighborhoodatlas.medicine.[facility]/. Last address used for calculation [...] 11/17/2021 1:51 PM NIRMALAT Zakia Montiel RN * Because of a [...] on filedocumented in this encounter Care Teams Metal Sheet Roller Operator Relationship Specialty Start Date End Date Rico Agarwal MD PCP - General Family Medicine 11/03/21 documented as of this encounter
--- OUTSIDE RECORDS SUMMARY | 2025-01-18 19:14 | XMS_ITS | Encounter Summary ---
Author Organization [facility] Address [address] [place] [address] Care Team Providers Care Arts And Sciences Dean Name Role Phone Rico Agarwal MD Primary Care Provider [phone] Source Comments In the event this information is protected by the Federal Confidentiality of Alcohol and Drug AbusePatient Records regulations: The Federal rules restrict any use of the information to criminally investigate or prosecute any alcohol or drug abuse patient.[facility] Encounter Details Date Type Department Care Team (Late st Contact Info) Description 06/08/2022 Get Medical Advice General Surgery [address] [place], [place] [phone] rFeda Pop APRN.POWER TRUCK DRIVER [address] [facility] [address] [place], [place] [phone] Upper G I Social History Tobacco Use [...] N ot on file 05/23/2022 Data from: https://www.neighborhoodatlas.medicine.[facility]/. Last address used for calculation [...] of Assessment Author No 11/17/2021 1:51 PM EDZakia Lino RN * Do you have serious difficulty [...] on filedocumented in this encounter Care Teams Arts And Sciences Dean Relationship Specialty Start Date End Date Rico Agarwal MD PCP - General Family Medicine 11/03/21 documented as of this encounter
--- OUTSIDE RECORDS SUMMARY | 2025-01-18 19:14 | XMS_ITS | Encounter Summary ---
Author Organization [facility] Address [address] [place] [address] Care Team Providers Care Roll Dough Divider Name Role Phone Rico Agarwal MD Primary Care Provider [phone] Source Comments In the event this information is protected by the Federal Confidentiality of Alcohol and Drug AbusePatient Records regulations: The Federal rules restrict any use of the information to criminally investigate or prosecute any alcohol or drug abuse patient.[facility] Encounter Details Date Type Department Care Team (Late st Contact Info) Description 05/28/2022 Get Medical Advice General Surgery [address] [place], [place] [phone] Freda Pop APRN.SFDC CONSULTANT [address] [facility] [address] [place], [place] [phone] upper GI Social History Tobacco Use Types [...] N ot on file 05/23/2022 Data from: https://www.neighborhoodatlas.medicine.[facility]/. Last address used for calculation [...] on filedocumented in this encounter Care Teams Roll Dough Divider Relationship Specialty Start Date End Date Rico Agarwal MD PCP - General Family Medicine 11/03/21 documented as of this encounter
--- OUTSIDE RECORDS SUMMARY | 2025-01-18 19:14 | XMS_ITS | Encounter Summary ---
Author Organization [facility] Address [address] [place] [address] Phone Care Team Providers Care Nuclear Technologist Name Role Phone Rico Agarwal MD Primary Care Provider [phone] Encounter Details Date Type Department Care Team (Late st Contact Info) Description 03/22/2023 Scanned Document [facility] LEGACY [address] [place] [address] Conversion, Onbase Social History Tobacco Use Types [...] place to sleep or slept in a retirement (including now)? No 03/21/2023 Comments No Sex [...] documented as of this encounter Care Teams Nuclear Technologist Relationship Specialty Start Date End Date Rico Agarwal MD [address] [place] [address] PCP - General 12/07/22 documented as of this encounter
--- OUTSIDE RECORDS SUMMARY | 2025-01-18 19:14 | XMS_ITS | Encounter Summary ---
Author Organization [facility] Address [address] [place] [address] Care Team Providers Care Agricultural Specialist Name Role Phone Rico Agarwal MD Primary Care Provider [phone] Rico Agarwal MD Unavailable [phone] Rico Agarwal MD Primary Care Provider [phone] Encounter Details Date Type Department Care Team (Late st Contact Info) Description 07/16/2024 External Result Encounter [facility] External Department Unsolicited Jr. Simba Knapp, DO [address] [address] Social History Tobacco Use Types Packs/Day Years [...] 01/28/2025 8:30 AM EDT Office Visit [facility] [address] [place] [address] Cintia Collado MD [address] [place] [address] 02/18/2025 8:30 AM EDT Procedure [facility] [address] [place] [address] Cintia Collado MD [address] [place] [address] 06/18/2025 10:50 AM EST [facility] [address] [place] [address] Janay Ngo, DATAPOWER CONSULTANT-COMMERCIAL ROOFING ESTIMATOR [address] [place] [address] 12/18/2025 10:30 AM EDT Office [facility] [address] [place] [address] Jr. Simba Knapp, DO [address] [facility] [address] [place] [address] documented as of this encounter Procedures Procedure [...] Adan Chen M.D.07/16/2024 4:21 PM Dictation Location: [facility]-20 Transcribed By: JACKIE 07/16/24 1621 Dictated By: Adan Chen DO 07/16/24 1619 Signed By: <Electronically signed by Adan Chen DO in OV> 07/16/24 1621 Narrative 07/16/2024 4:24 PM EDT [place] [id number] XRay Report Signed Patient: Mary Goode MR#: [id number] : 1950 Acct:[id number] Age/Sex: 73 / F ADM Date: 07/16/24 [...] bonelength lower extremity Procedure Note Radiology, Radiologist, - 07/16/[address] [address] XRay Report Signed Patient: Mary Goode MMR#: [id number] : 1950cct:[id number] Age/Sex: 73 / FADM Date: 07/16/24 Loc: ICX Room:Type: REG CLI Attending Dr: Simba Knapp [...] Adan Chen M.D.07/16/2024 4:21 PM Dictation Location: [facility]--20 Transcribed By: [facility] 07/16/24 1621 Dictated By: Adan Chen DO 07/16/24 1619 Signed By: <Electronically signed by Adan Chen DO in OV> 07/16/24 1621 [facility] PROCEDURES Final Result documented in this encounter Visit Diagnoses Not on filedocumented in this encounter Care Teams Agricultural Specialist Relationship Specialty Start Date End Date Rico Agarwal MD PCP - General Family Medicine 05/24/23 10/07/24 [place] [address] [place] [phone] PCP - General Family Medicine 10/08/24 Rico Agarwal MD Family Medicine 05/24/23 10/07/24 documented as of this encounter
--- OUTSIDE RECORDS SUMMARY | 2025-01-18 19:14 | XMS_ITS | Clinical Summary ---
Author Organization [facility] Address [address] [place] [address] Care Team Providers Care Certified Appliance Service Technician Name Role Phone Rico Agarwal MD Primary Care Provider [phone] Allergies No known active allergies Medications HYDROCHLOROTHIA [...] Plan (11/03/2021 10:05 AM EDT): Assessment: s/p MANAGER INTEGRATED shunt (2006), was followed by neurosurgery Currently follows with PCP Asymptomatic Stable. Congenital hydrocephalus 02/08/2005 Refusal of blood transfusion s as patient is Christianity Assessment & Plan (11/03/2021 10:06 AM EDT): Assessment: Documents and worksheet re: fractions scanned into [employer]. CKD (chronic kidney disease) stage 3, GFR 30-59 ml/min Assessment & Plan (11/03/2021 10:08 AM EDT): Assessment: 10/21/2021 GFR 59 mL/min Creatinine 1.[address] Barbosa ( Nephrology in [place]) Stable. Essential hypertension Assessment & Plan (11/03/2021 [...] N ot on file 05/23/2022 Data from: https://www.neighborhoodatlas.medicine.[facility]/. Last address used for calculation [address] [...] 11/17/2022 11/17/2021, , 10/21/2021, Additional history exists DTaP,Tdap,Td Vaccine (2 - Td or Tdap) 02/21/2024 02/20/2014 Advance Directive Discussion 05/09/2024 Diabetes Screening 11/17/2024 11/17/2021, 0 11/03/2021, 03/07/2013, Additional history exists Influenza Vaccine (#1) 2025 2, 02/18/2020, 10/08/2015 RSV Vaccine (1 - 1-dose 75+ series) 11/21/2027 Procedures Procedure Name Priority Date/Time Associated Diagnosis Comments BASIC METABOLIC PANEL Routine 11/17/2021 6:22 AM EDT from Last 3 Months or Most Recently Relevant to Health Maintenance Results * (ABNORMAL) BASIC METABOLIC PNL (11/17/2021 6:22 AM EDT) [facility] Signature Glucose 110(H) 74 - 99 mg/dL 11/17/2021 7:12 AM EDT [facility] Comment: The [place] Diabetes Association (ADA) provides guidance for cutoff [...] Standards of Medical Care in Diabetes 2016, [place] Diabetes Association. Diabetes Care. 2016.39(Suppl 1). BUN 13 7 - 21 mg/dL 11/17/2021 7:12 AM EDT [facility] Creatinine 0.91 0.58 - 0.96 mg/dL 11/17/2021 7:12 AM EDT [facility] Sodium 132(L) 136 - 144 mmol/L 11/17/2021 7:12 AM EDT [facility] Potassium 3.6(L) 3.7 - 5.1 mmol/L 11/17/2021 7:12 AM EDT [facility] Chloride 95(L) 97 - 105 mmol/L 11/17/2021 7:12 AM EDT [facility] CO2 23 22 - 30 mmol/L 11/17[facility]2021 [facility] Anion Gap 14 9 - 18 mmol/L 11/17/2021 7:12 AM EDT [facility] Calcium, Total 9.6 8.5 - 10.2 mg/dL 11/17/2021 7:12 AM EDT [facility] Estimated Glomerular Filtration Rate 69 >=60 mL/min/1. 73m 11/17/2021 7:12 AM EDT [facility] Comment:Estimated Glomerular Filtration Rate (eGFR) is [...] 6:22 AM EDT 11/17/2021 6:34 AM EDT us Patito Mendez MD LABORATORY Final Result [facility] [address] [place] [address], from Last 3 Months or Most Recently Relevant to Health Maintenance Insurance MEDICARE [employer] SUPPLEMENT Advance Directives Documents on File Type Date Recorded Patient Air Cargo Specialist Expl anation Advance Directive(s) 11/03/2021 10:09 AM Advance Directive(s) 06/23/2006 Advance Directive(s) 06/23/2006 Care Teams Certified Appliance Service Technician Relationship Specialty Start Date End Date Rico Agarwal MD PCP - General Family Medicine 11/03/21
--- OUTSIDE RECORDS SUMMARY | 2025-01-18 19:18 | XMS_ITS | CCD ---
Author Organization [facility] Care Team Providers Care Scrape Gatherer Name Role Phone PHYSICIAN, DEFAULT Unavailable Unavailable PHYSICIAN, DEFAULT Unavailable Unavailable YODER, MUJEEB A Unavailable Unavailable YODER, MUJEEB A Unavailable Unavailable STEVEN SANCHEZ Unavailable Unavailable RICO PURCELL Unavailable Unavailable Monika Guerrero Primary Care Provider Darlene Barbosaul Unavailable Jorge Ramirez Unavailable Rico Purcell MD Primary Care Provider [phone] Keagan Chadwick Unavailable MD Rico Purcell Primary Care Provider [phone] MD Rico Purcell Attending Provider [phone] Ziyad Ngo Unavailable MD Rico Purcell Primary Care Provider [phone] MD Rico Purcell Attending Provider [phone] Adan Gonzalez Attending Provider MD Jorge Ramirez Attending Provider Rico Purcell MD Primary Care Provider [phone] MONIKA GUERRERO Primary Care Unavaila ble MENDEZ, TOMS Referring Unavailable MONIKA GUERRERO Primary Care Unavaila ble MENDEZ, TOMS Referring Unavailable MONIKA GUERRERO Primary Care Unavaila ble MENDEZ, TOMS Attending Unavailable MENDEZ, TOMS Referring Unavailable FREDA POP Attending Unavailable MENDEZ, TOMS Referring Unavailable RICO PURCELL Primary Care Unavailable FREDA POP Attending Unavailable MENDEZ, TOMS Referring Unavailable RICO PURCELL Primary Care Unavailable MENDEZ, TOMS Referring Unavailable HOY, RICO M Primary Care Unavailable FREDA POP Attending Unavailable ATIF MENDEZ Referring Unavailable HOY, RICO M Primary Care Unavailable ATIF MENDEZ Attending Unavailable DOROTHY SPARROW Referring Unavailable BINH, RICO M Primary Care Unavailable BINH, RICO M Primary Care Unavailable FREDA POP Referring Unavailable MD Rico Purcell Primary Care Provider [phone] ARI Pop Attending Provider MD Rico Purcell Primary Care Provider [phone] ARI Pop Attending Provider ANTHONY Friedman Attending Provider [phone] MD Rico Purcell Attending Provider HOY ., DR WILLAMS Consulting Unavailable HOY ., DR WILLAMS Primary Care Unavailable HOY ., DR WILLAMS Attending Unavailable HOY ., DR WILLAMS Admitting Unavailable HOY ., DR WILLAMS Consulting Unavailable HOY ., DR WILLAMS Primary Care Unavailable HOY ., DR WILLAMS Attending Unavailable HOY ., DR WILLAMS Admitting Unavailable ZIEBER, DR ANA ROSA Hdz Consulting Unavailable CHELSEY, GINO Consulting Unavailable HOY ., DR WILLAMS Primary Care Unavailable CHELSEY, GINO Attending Unavailable CHELSEY, GINO Admitting Unavailable HOY ., DR WILLAMS [...] Unavailable HOY ., DR WILLAMS Admitting Unavailable CHELSEY, GINO Consulting Unavailable HOY ., DR WILLAMS Primary Care Unavailable CHELSEY, GINO Attending Unavailable CHELSEY, GINO Admitting Unavailable HOY ., DR WILLAMS Consulting Unavailable HOY ., DR WILLAMS Primary Care Unavailable HOY ., DR WILLAMS Attending Unavailable HOY ., DR WILLAMS Admitting Unavailable ALBERTINA, MILADYS Consulting Unavailable HOY ., DR WILLAMS Primary Care Unavailable ALBERTINA, MILADYS Attending Unavailable ALBERTINA, MILADYS Admitting Unavailable HOY ., DR WILLAMS Primary Care Unavailable HOY ., DR WILLAMS Attending Unavailable HOY ., DR WILLAMS Admitting Unavailable HOY ., DR WILLAMS Primary Care Unavailable HOY ., DR WILLAMS Attending Unavailable HOY ., DR WILLAMS Admitting Unavailable Rico Purcell Unavailable Unavailable Unavailable Rico Purcell MD Primary Care Provider [phone] MIREILLE ZURITA Attending Unavailable Adan Gonzalez Referring Unavailable Dr. Rico Purcell Primary Care Unavail able Dr. Rico Purcell Primary Care Unavail able MIREILLE ZURITA Referring Unavailable MIREILLE ZURITA Attending Unavailable CECELIA HARKINS Attending Unavailable LONA PANDA Referring Unavailable Rico Purcell MD Primary Care Provider MD Rico Purcell Primary Care Provider [phone] MD Rico Purcell Attending Provider MD Gino Barbosa Attending Provider RICO PURCELL Primary Care Unavailable MIREILLE ZURITA Admitting Unavailable MIREILLE ZURITA Attending Unavailable RICO PURCELL Primary Care Unavailable COLLIN SAGASTUME Consulting Unavailable LORRI MACK Unavailable MIREILLE ZURITA S Referring Unavailable RICO PURCELL Primary Care Unavailable MIREILLE ZURITA S Referring Unavailable RICO PURCELL Primary Care Unavailable Monika Guerrero Primary Care Provider Rico Purcell MD Primary Care Provider [phone] Rico Purcell MD Unavailable MD Jorge Ramirez Attending Provider MD Rico Purcell Primary Care Provider MD Rico Purcell Attending Provider [phone] MIREILLE ZURITA Referring Unavailable RICO PURCELL Primary Care Unavailable YUDITHMIREILLE S Referring Unavailable HOY, RICO DON Primary Care Unavailable SANIYA FAUSTIN Referring Unavailable HOY, RICO DON Primary Care Unavailable YUDITHMIREILLE S Referring Unavailable HOY, RICO DON Primary Care Unavailable SANIYA FAUSTIN E Attending Unavailable HOY, RICO DON Primary Care Unavailable YUDITHMIREILLE S Attending Unavailable HOY, RICO DON Primary Care Unavailable MIREILLE ZURITA S Attending Unavailable HOY, RICO DON Primary Care Unavailable YUDITHMIREILLE S Attending Unavailable HOY, RICO DON Primary Care Unavailable YUDITHMIREILLE S Attending Unavailable HOY, RICO DON Primary Care Unavailable Rico Purcell MD Primary Care Provider [phone] Simba Knapp DO Attending Provider Rico Purcell MD Primary Care Provider [phone] Jorge Ramirez Admitting Unavailable Jorge Ramirez Attending Unavailable Hoy, Rico M Primary Care Unavailable Hoy, Rico M Primary Care Unavailable Hoy, Rico M Attending Unavailable Hoy, Rico M Admitting Unavailable ChelseyGino Admitting Unavailable ChelseyDarleneul Attending Unavailable Hoy, Rico M Primary Care Unavailable Hoy, Rico M Primary Care Unavailable Hoy, Rico M Attending Unavailable Hoy, Rico M Admitting Unavailable Simba Knapp Jr Admitting Unavailable StepSimba mcnulty Jr Attending Unavailable Hoy, Rico M Primary Care Unavailable Simba Knapp Jr Admitting Unavailable Simba Kanpp Jr Attending Unavailable Hoy, Rico M Primary Care Unavailable Simba Knapp Jr Attending Unavailable Hoy, Rico M Primary Care Unavailable Simba Knapp Jr Admitting Unavailable SIMBA KNAPP Attending Unavailable STEPSIMBA MCNULTY Admitting Unavailable HOY, RICO Primary Care Unavailable HOY, RICO Primary Care Unavailable SIMBA KNAPP Attending Unavailable SMIBA KNAPP C Admitting Unavailable JANAY NGO Attending Unavailable BEN FLORENTINO Attending Unavailable HEATHER BANG Attending Unavailable HEATHER BANG Attending Unavailable HEATHER BANG Attending Unavailable ESTELLE PEREZ Attending Unavailable MURTAZA HOLLOWAY Attending Unavailable ESTELLE PEREZ Referring Unavailable PATEL GARLAND Attending Unavailable ESTELLE PEREZ Attending Unavailable ESTELLE PEREZ Attending Unavailable ESTELLE PEREZ Referring Unavailable JR. KNAPP GEORGE C Attending Unavaildarya KNAPP JR., GEORGE C Referring UnavailESTELLE Hicks Attending Unavailable HEATHER BANG Attending Unavailable JR. KNAPP GEORGE C Referring Unavaila HEATHER Maya Attending Unavailable BEN FLORENTINO Attending Unavailable BEN FLORENTINO Referring Unavailable Rico Purcell MD Primary Care Provider [phone] Gino Barbosa MD Attending Provider Allergies Allergy Classification Reported Allergen(s) Allergy Type Date of Onset Reaction(s) Facility (2 sources) No Known Allergies; Translations: [No Known Allergies] Propensity to adverse reactions (disorder) 7 [facility] Repository (1 source) No Known Medication Allergies; Translations: [No Known Medication Allergies] Propensity to adverse reactions (disorder) [facility] Repository (20 sources) Other Propensity to adverse reactions 4 Other [facility] Healthcare (1 source) levoFLOXacin; Translations: [levoFLOXacin] Drug Allergy [facility] Repository Medications Current Medications Medication [...] Start: 03-21-2023 take 1 tablet by meghana every eight hours 975 mg, oral, Every [...] (20 sources) Dihydropyridine Calcium Channel Sonia Start: 01-24-2024 take 1 tablet by mouth once daily in the morning Amlodipine 10 mg tablet Active 10 MG PO Every morning January 24, 2024 12:00am Complies with drug therapy Start: 08-05-2021 End: 07-19-2023 take 1 tablet by mouth once daily Amlodipine 10 mg tablet Discontinued 10 MG PO Daily August 05, 2021 12:00am July 19, 2023 10:49am amLODIPine Besyl ate 5 MG Oral Tablet Quantity: 0 Refills: 0 Ordered: 07-Dec-2022 DO Active Comment on above: Take 10 mg by mouth once daily. aspirin 81 mg oral tablet (20 sources) Platelet Aggregation Inhibitor, Nonsteroidal Anti-inflammatory Drug Start: 01-08-2025 take 1 tablet by mouth once daily Aspirin 81 mg tablet Active 81 MG PO Daily January 08, 2025 12:00am Complies with drug therapy Start: 08-05-2021 aspirin 81 mg chewable tablet [...] tablet (20 sources) HMG-CoA Reductase Inhibitor Start: take 1 tablet by mouth at bedtime Atorvastatin 20 mg tablet Active 20 MG PO Bedtime July 19, 2023 12:00am Complies with drug therapy take 1 tablet by meghana th every [...] 90 mL 3 04/04/2024 04/04/2025 Active calcium ascorbate 500 mg oral tablet (1 source) Start: 01-08-2025 take 1 tablet by mouth once daily Ascorbate Calcium (Vitamin C) 500 mg tablet Active 500 MG PO Daily January 08, 2025 12:00am Complies with drug therapy calcium chloride 0.0014 meq/ml / potassium chloride 0.004 meq/ml / sodium chloride 0.103 meq/ml / sodium lactate 0.028 meq/ml injectable solution (3 sources) Start: 03-21-2023 take 100 mL intravenously every hour 100 mL/hr, intravenous, Continuous, Starting on Tue03/21/23 at 1630, Phase II/On Unit Convert IV to saline lock when taking oral fluids. Start: 03-21-2023 End: 03-21-2023 lactated Ringer's infusion cetirizine hydrochloride 10 mg oral tablet (10 sources) Histamine-1 Receptor Antagonist Start: 01-08-2025 take 1 tablet by mouth once daily as needed Cetirizine (Zyrtec) 10 mg tablet Active 10 MG PO Daily as needed January 08, 2025 12:00am Complies with drug therapy Start: 06-28-2006 ZYRTEC 10 MG C HEWABLE TAB Take one(1) tablet daily. 0 0 06/28/2006 Active Comment on above: Take one(1) tablet d aily. cholecalciferol 0.05 mg oral capsule (20 sources) Vitamin D Start: 01-24-20 take 1 capsule by mouth once daily Cholecalciferol (Vitamin D3) 50 mcg (2,000 unit) capsule Active 50 MCG PO Daily January 24, 2024 12:00am Complies with drug therapy Start: 08-05-2021 End: 07-19-2023 take 1 capsule by mouth once daily Cholecalciferol (Vitamin D3) (Vitamin D3) 25 mcg (1,000 unit) Capsule Discontinued 25 MCG PO Daily August 05, 2021 12:00am July 19, 2023 10:49am take 1 capsule by dc ut once daily cholecalciferol (Vitamin D-3) 25 [...] EVERY 6 MONTHS August 05, 2021 12:00am Complies with drug therapy 24 hr desvenlafaxine 50 mg extended release [...] Daily at bedtime July 19, 2023 12:00am Complies with drug therapy ferrous sulfate 325 mg oral tablet (20 sources) Start: 07-19-2023 take 1 tablet by mouth once daily Ferrous Sulfate 325 mg (65 mg iron) tablet Active 325 MG PO Daily July 19, 2023 12:00am Complies with drug therapy Start: 03-22-2023 65 mg of iron, oral, [...] needed for Pain August 05, 2021 12:00am Complies with drug therapy Gabapentin 300 M G TABS Quantity: 0 [...] tablet (20 sources) Thiazide Diuretic Start: 2006 take 1 tablet by mouth once daily Hydrochlorothiazide 25 mg tablet Active 25 MG PO Daily August 05, 2021 12:00am Complies with drug therapy take 1 tablet by mouth once aminata [...] oral tablet (20 sources) beta-Adrenergic Sonia Start: 01-08-2025 take 1 tablet by mouth once Labetalol 200 mg tablet Active 200 MG PO Once January 08, 2025 1:28pm Complies with drug therapy Start: 03-21-2023 take 1 tablet by meghana th twice daily labetalol (Normodyne) 100 mg tablet Indications: Essential hypertension Take 1 tablet (100 mg) by mouth 2 times a day. 03/23/2023 Active Start: 08-05-2021 End: 01-08-2025 take 1 tablet by mouth twice daily Labetalol 200 mg tablet Discontinued 200 MG PO Twice daily August 05, 2021 12:00am January 08, 2025 1:33pm take 1 tablet by meghana th once daily labetalol (TRANDATE) 200 mg tablet Take 200 mg by mouth once daily. Active Comment on above: Take 200 mg by mouth once daily. lactobacillus acidophilus [id number] unt oral capsule (1 source) Start: Lactobacillus Acidophilus 500 million cell capsule Active 500 MMU CELLS PO Daily January 08, 2025 12:00am Complies with drug therapy lansoprazole 30 mg delayed release oral capsule (20 sources) Proton Pump Inhibitor Start: 3 End: 4 take 1 capsule by mouth once daily Lansoprazole 30 mg capsule,delayed release(DR/EC) Active 30 MG PO Daily July 19, 2023 12:00am Complies with drug therapy Start: 12-03-2021 End: 12-03-2021 take 1 capsule [...] Angiotensin 2 Receptor Sonia Start: 08-05-2021 take 1 tablet by mouth once daily Losartan 50 mg tablet Active 50 MG PO Daily August 05, 2021 12:00am Complies with drug therapy Comment on above: Take 50 mg by [...] on Tue03/21/23 at 1619, Phase II/On Unit Multivitamin (Daily Multi-Vitamin) tablet (1 source) Start: 01-08-2025 take 1 tablet by mouth once daily in the morning Multivitamin (Daily Multi-Vitamin) tablet Active 1 TAB PO Every morning January 08, 2025 12:00am Complies with drug therapy 2 ml naloxone hydrochloride 1 mg/ml prefilled [...] MEQ PO Daily August 05, 2021 12:00am Complies with drug therapy Comment on above: Take 10 mEq by mouth once daily. Sod Picosulf-Mag Ox-Citric Ac (1 source) Start: 5 take 1 mL by mouth once daily sucralfate 1000 mg oral tablet (13 sources) [...] Serotonin and Norepinephrine Reuptake Inhibitor Start: 07-12-19 25 take 1 tablet by mouth once daily Venlafaxine 75 mg tablet Active 75 MG PO Daily July 11, 2024 10:12am Complies with drug therapy Start: 07-19-2023 End: 07-11-2024 take 1 tablet [...] Active Comment on above: Take one(1) tablet daily. budesonide 0.032 mg/actuat metered dose nasal spray [...] Surgical Prophylaxis cefdinir 300 mg oral capsule (5 sources) Cephalosporin Antibacterial Start: 07-11-2024 End: 07-16-2024 take 2 capsules by mouth once daily Cefdinir 300 mg capsule Discontinued 600 MG PO Daily July 11, 2024 1:00am July 16, 2024 10:04am citalopram 20 mg oral tablet (20 sources) [...] (1 source) Opioid Agonist Start: 023 End: HYDROmorphone (Dilaudid) injection 0.5 mg ibuprofen [...] : 12-01-19 Chronic Deficiency and other anemia (9 sources) Iron deficiency anemia; Translations: [Iron deficiency anemia, unspecified] 01-08-2025 Episodic Deficiency and other anemia (11 sources) Anemia; Translations: [Anemia, unspecified] 07-19-2023 Episodic Diseases of mouth; excluding dental (8 sources) Glossopyrosis ; Translations: [Glossodynia] Onset: 01-03-05-11-2024 Episodic Disorders of lipid metabolism (20 sources) Hyperlipidemia, unspecified; Translations: [Hyperlipidemia] Onset: 01-13-20 Chronic Esophageal disorders (13 sources) Gastroesophageal reflux disease; Translations: [Gastro-esophageal reflux disease without esophagitis] Chronic Essential hypertension (20 sources) Hypertensive disorder; Translations: [Essential (primary) hypertension] Onset: 11-04-1911-03-2021 Chronic Fluid and electrolyte disorders (20 sources) Hypo-osmolality and hyponatremia; Translations: [Hypokalemia] Onset: 06-02-19 Resolved : 12-01-19 Episodic Genitourinary symptoms and ill-defined conditions (13 sources) Urinary incontinence; Translations: [Unspecified urinary incontinence] Chronic Genitourinary symptoms and ill-defined conditions (2 sources) Asymptomatic bacteriuria; Translations: [Bacteriuria] 01-08-2025 Episodic Hypertension with complications and secondary hypertension (20 [...] 01-26-20 Chronic Other aftercare (2 sources) Other ocean transportation intermediary (current) drug therapy; Translations: [Long-term (current) use [...] Onset: 05-17-19 Chronic Other nervous system disorders (9 sources) Ventriculoperitoneal shunt in situ; Translations: [Presence [...] sources) Transfusion of blood product refused for mu-ism reason; Translations: [Procedure and treatment not carried [...] 01-07-2017 05-11-2024 Episodic Other aftercare (1 source) 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; 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 ASPIRIN] Onset: 01-12-2017 Episodic [...] [Refusal of blood transfusions as patient is Latter day] Onset: 11-03-2021 Episodic Spondylosis; intervertebral disc disorders; [...] Test Name Value Interpretation Reference Range Facility Erythrocyte distribution wid th Auto (RBC) [Ratio]Ordered By: Gino Barbosa on 01-02-2025 Erythrocyte distribution width (RBC) [Ratio] 12.9 % 11.0-15.0 [facility] Glomerular filtration rate ( GFR) estimation in non- AmericanOrdered By: Gino Barbosa on 01-02-2025 GFR/1.73 sq M.predicted among non-blacks MDRD (S/P/Bld) [Vol rate/Area] 56 mL/min/{1.73_m2} Low >=60 mL/min/1.7 3m 2 [facility] Hematocrit Auto (Bld) [Volum e fraction]Ordered By: Gino Barbosa on 01-02-2025 Hematocrit (Bld) [Volume fraction] 36.1 % 36.0-48.0 [facility] Hemoglobin [Mass/volume] in BloodOrdered By: Gino Barbosa on 01-02-2025 Hemoglobin (Bld) [Mass/Vol] 11.6 g/dL Low 12.0-16.0 [facility] Iron binding capacity [Mass/ volume] in Serum or PlasmaOrdered By: Gino Barbosa on 01-02-2025 Iron binding capacity [Mass/Vol] 319.0 ug/dL 250.0-450. 0 [facility] Iron saturation [Mass Fracti on] in Serum or PlasmaOrdered By: Gino Barbosa on 01-02-2025 Iron saturation [Mass fraction] 15.4 % [facility] Laboratory - Chemistry and C hemistry - challengeOrdered By: Gino Barbosa on 01-02-2025 Albumin [Mass/Vol] 3.6 g/dL 3.4-5.0 [facility] Calcium [Mass/Vol] 9.0 mg/dL 8.5-10.1 [facility] Chloride [Moles/Vol] 103 mmol/L 98-107 [facility] CO2 [Moles/Vol] 28.7 mmol/L 21.0-32.0 [facility] Creatinine [Mass/Vol] 0.97 mg/dL 0.55-1.02 [facility] Ferritin [Mass/Vol] 46.0 ng/mL 8.0-252.0 [facility] GFR/1.73 sq M.predicted MDRD (S/P/Bld) [Vol rate/Area] mL/min/{1.73_m2} >=60 mL/min/1.7 3m 2 [facility] Glucose [Mass/Vol] 106 mg/dL 74-106 [facility] Iron [Mass/Vol] 49.0 ug/dL Low 50.0-170.0 [facility] Magnesium [Mass/Vol] 2.0 mg/dL 1.8-2.4 [facility] Potassium [Moles/Vol] 4.2 mmol/L 3.5-5.1 [facility] Sodium [Moles/Vol] 139 mmol/L 136-145 [facility] Urate [Mass/Vol] 3.0 mg/dL 2.6-6.0 [facility] Urea nitrogen [Mass/Vol] 17.0 mg/dL 7.0-18.0 [facility] Urea nitrogen/Creatinine [Mass ratio] 17.5 mg/mg [facility] Bilirubin Ql (U) Negative NEGATIVE [facility] Glucose (U) [Mass/Vol] Negative NEGATIVE [facility] Ketones Ql (U) Negative NEGATIVE [facility] pH (U) 7.0 [pH] 5.0-9.0 [facility] Specific gravity (U) [Rel density] 1.010 1.005-1.02 5 [facility] Urobilinogen Qn (U) 0.2 {Raul'U}/dL 0.2-1.0 [facility] Laboratory - Specimen inform ationOrdered By: Gino Barbosa on 01-02-2025 Appearance (U) CLEAR CLEAR [facility] Color (U) LT. YELLOW YELLOW [facility] Laboratory - UrinalysisOrder ed By: Gino Barbosa on 01-02-2025 Leukocyte esterase Test strip Ql (U) SMALL Abnormal NEGATIVE [facility] Mucus Ql (Urine sed) NONE SEEN NONE SEEN [facility] Nitrite Ql (U) Negative NEGATIVE [facility] Protein (U) [Mass/Vol] 15.4 mg/dL High <=11.9 [facility] Protein Ql (U) Negative NEG/TRACE [facility] Leukocytes [#/volume] correc mary for nucleated erythrocytes in Blood by Automated counOrdered By: Gino Barbosa on 01-02-2025 WBC corrected for nucl RBC Auto (Bld) [#/Vol] 8.1 10 3/uL 4.0-11.0 [facility] MCH Auto (RBC) [Entitic mass ]Ordered By: Gino Barbosa on 01-02-2025 MCH (RBC) [Entitic mass] 29.4 pg 26.7-34.0 [facility] MCHC Auto (RBC) [Mass/Vol]Or dered By: Gino Babrosa on 01-02-2025 MCHC (RBC) [Mass/Vol] 32.1 g/dL 29.9-35.2 [facility] MCV Auto (RBC) [Entitic vol] Ordered By: Gino Barbosa on 01-02-2025 MCV (RBC) [Entitic vol] 91.4 fL 81.0-99.0 [facility] No Panel InformationOrdered By: Gino Barbosa on 01-02-2025 25-Hydroxy Vitamin D Total 38.1 ng/mL [facility] Comment on above: <20 ng/mL Vit D defi cient20-<30 ng/mL Vit D ayksitjsywhv12-668 ng/mL Vit D sufficient>100 ng/mL Potential Toxicity Parathyroid Hormone (Intact) 52 pg/mL 15-65 [facility] Comment on above: Performed at: - [address] [id number] Director: Jamari Bray PhD, Phone: [phone] Phosphorus Level 3.2 mg/dL 2.6-4.7 [facility] Urine Bacteria TRACE #/HPF Abnormal NONE SEEN [facility] Urine Occult Blood Negative NEGATIVE [facility] Urine Other Casts NONE SEEN #/LPF NONE SEEN [facility] Urine Other Crystals None Seen #/HPF None Seen [facility] Urine Random Creatinine 84.52 mg/dL 20.00-300. 00 [facility] Urine RBC 0-2 #/HPF 0-2 [facility] Urine Squamous Epithelial Cells FEW #/LPF Abnormal NONE/RARE [facility] Urine WBC 5-10 #/HPF Abnormal NONE SEEN [facility] Platelet mean volume Auto (B ld) [Entitic vol]Ordered By: Gino Barbosa on 01-02-2025 Platelet mean volume (Bld) [Entitic vol] 8.8 fL Low 9.5-13.5 [facility] Platelets Auto (Bld) [#/Vol] Ordered By: Gino Barbosa on 01-02-2025 Platelets (Bld) [#/Vol] 371 10 3/uL 150-450 [facility] RBC Auto (Bld) [#/Vol]Ordere d By: Gino Barbosa on 01-02-2025 RBC (Bld) [#/Vol] 3.95 10 6/uL Low 4.20-5.40 [facility] Serum or plasma anion gap de terminationOrdered By: Gino Barbosa on 01-02-2025 Anion gap [Moles/Vol] 11.5 mmol/L [facility] Urine protein/creatinine rat ioOrdered By: Gino Barbosa on 01-02-2025 Protein/Creatinine (U) [Ratio] 0.18 [facility] XR Knee - right 1 or 2 [...] dislocation. Impression: Unremarkable right total knee arthroplasty [facility] Study observation (narrative) [facility] Coding Summaryon 11-26-2024 Coding Summary HTMLBase 64 JjklccdzESq9nKu+PGhlYWQ+PE1F QYVlL59pxSDyfP8bF2LOYIlMEqkj PQTKLToWSyMykeYsDI2rlLLjHNPp IC8+MY7hCYEeIpnncHHmn3R9nRH3 T39hwy3wZBqgpZB7GZJtXmTpzpel s6mdhKm8TVppYuorAzBo QTCjyQ23PCL3eD99Oi79rDRaeKYc m4mkjUk4QlQyVEFtXDL0aRuuNFwy s1SoFNOvR60jyJJwp6V2 CGLkhFahuKUxJpXjyRB7iB6rFYem vwils6yimgceHet5bh26aNHlg4J6 iHX6T5UxgeO4CVGeyDAc VtsteEQGqC0epipnl0oivwzyYuTi GXWvAQt3EIz3TGYfsShkQwIcVM24 LOF1BKBierRdZ0QnQUGa xApqLeE9r1D2Rz2AE4BFLognG1BA TUFSWTwvdGQ+KP18fc54L5PiBerd Woe0JATqFEY6oBU4gO2e XSOuEFzrj5A7aJR6D6WoojHmwj7v h1blXIObPZlzV30haHZjo6M1QASn rOQ8PSLfjQuiZrDhmN00 Oyc+MYHamXvvb4ImPnzyj3mdd8uc yTr4IxaaQCDpmyWlfYgbDRC6z6Dn Xx1sDOKroSP7tYV2hU1a BiNkKwB6WDukW571GjJptUOrLsqu E69hF4HnvKK+WFBtHug1JAIjrKgu PR1mP2NaKOIxwzhlePLw vVpgDR2yJYJzzstmACJkiA8rZMTo U7m5GkQkDjX6UBimN9NsDPBbwfuj Pk23bI1rPrPeFkH2XDxm F9QpepH5GYIykDClXJhuKSA9U17v q8I5PCJsSFVgECD4bLS3dA8ibXoj bjogbGVmdDsgdmVydGlj VDjrOYrxM164OUJnfPwxMvAcQAtn ZyBEYXRlOiAgMDcvMjEvMjAyNTwv dGQ+WLPkXUJ3gLtpVCXo eGDbCCbeMw6raMiqtQirDL4hYXXn ykteDCXwjT0pJSEffTRgbTvmDL4e YDLpskdtv324MvZrPOV7 RKFpaGJuR5DhgY7gNiZfBPVvJXCx V4NxgPGbKAsyF657CLpmRcY1TRWc bxBtX9QpZLFhyRpiXiT7 z3J1Fs3Fp7NdsstdP9SziPCyRcTe OjboEOf0A6UyQmjevBA+QV43LZBk NK66KOh2QBJ4wTmsCAlx RNWkC3PmjC1nVfZhSVIdIIUgSkf+ PHRhYmxlIHdpZHRoPScxMDAlJyBz yZmhWQ0xSm1pDEAsGHMr cHpicHPtPbOpv5tqWLWbWLpwZP5x rRtdD2NfgFT1HONks8c9Mh65W62j Y2BezAH+ODJrdKF0kGF6 eU4cNjGlLcJ4JHryR752JfMzeEKp Ajnud3pci0meqBt1CmU2YIHwpeSe nItlQHC8c3OaEx94R01g CFujOSLyKBJuKXWgTBRceHsteu1y jK7jXi8+NNQxvGH8bTI4fI9yIiKf HiS0JCsfY204PhIekVAb Bqjtr6tsi3vxsKt3MuDyUDVuakGh jSieKHX4y2IrLa51H2UqlNypr0Lq Nod4ko06lMVzc1D4nDT7 L9AtJRPbgjccrAGtcBbsPE0mGNJv eizdGUXthU2eQBBbG6n3GbOyGpN1 WNjqA6UroiL0UUEluUGe QCGqiCMPmE7gcgsqs3edvbhpLsKe FFZcGOx9HXa6ZWFwjIgjJgOtBYA7 DpQ7FNY1nCBniB6ngMjx svvnsJ1wKwq+EFJ8yWKmcPHMHD4j OjwvdGQ+ORDaWIZ5mRnrCLvnTUKy uE7lUOPhC8c8BoRnTlQ7 BHbhR9JuifN1JRPilHWxSLYaaQJU hX2rrpwkl8xjtnkyIrAhXNZdZGs3 XTb3TCCivOolUpHyONC2 YcT3SWI8kPVskV9czDyaohtdoH4y Oyc+LnlfyHrgUEC0APa4C6KvAps7 MDRtjRabFM1wcCTkUFeq Wx1snNfdzKrrTL5xQDSmxylor862 NkDqa9vjBPOckRFlBAogMER2U44i b2Y0LVBsNAFsVJA4oCP0 mF7jzMgjmiknqNLpmErslyDedPwz DJrzSRtbH681OGIbyJzfPxXxJAw1 B6TeEop5FXWcpJekUB8s qCByVNnnOe0cqMxdhPwjXI9fUHWr gzujb194TaJcy4ekMPJslEXkDCbq MMO4Y25vd9R7FMRnQJHf BRN3vLW4fG7rnHzydpgilVSxtWwf rmLjeVhvYAbnVOzcP089YLQxvUez DpPdiIw7L1BfRqi7WJZn jMbmPO8ghYKsQYikGn3ybKdfcTpw QB5kZDOytgrlw099IcXto2mnAGWl aBPxQLeqWCP0Y94xl4Z3 YNQxYQNgDJN7uCS5sX3ckZtrrxot bLRudJkbwuQkmTboXJonHZrdZ109 IHRvcDsnPlBhdGllbnQg ITanYSe1W4PjPhrgiIZ+MG18LTRv IS84rYFcxRSbu9xpcNg1HcTiXYHo VVX6kDokHDoxq1LjNETn P26xcEGnv5M6OMPmwTmsxMWfFbMc xGQ7wA3mYPvwqsxuu1zmgkutIjda l0bxom38oU57J95fSNmp OMIdFQFmPPIqETRiqGumcl5gkQ1g Ii8+JGAmrNH7qYL1fM3gFNDvDrS7 BTscU264SuOrgSVtAybj b1fgb3urgXx4ThQ0PGNrarGnkCiz LPH0n7GuSi21E26aNFtbWXKjKJXp IYGbJUSodDqhwy0ppI9e Ii8+QDIqeHU0oKI3mH9nOsBoMnT7 GTmcZ853VlXtoDQlEafmN65eK1Lt dXA+VWUaLvu3EZThsEjv BE3zhJZiNIllBw7cNIG5YkUuGuRw YXehX6GpIIIbbjqlrcojcAF0GOAk HTWajI96Mj9luPcuZXDk sSIUrT6jxicer4dewidhHxVgGUXd AMb3EZh1NHTfbZpmTrLcPQF6JyL0 MAK3hMXbeV3rgLsoovpq nB6vA5OqOJTmcpnvAv93cM1vCzTb XlE6UIzmNpi+UkFJRlNOSURFUiwg CqLKCXCmBPCFSCI3A4Fv Nii6CZLesSknCX1ehYHiHPgrCn2y jXfodHilMU3gBOEghtewDGNnxX5u BXCkhASoaBbqTQ5zDMDw zwbth785TaUyBGS6CDFtpBOmF1Sc gA2hIoKgBFTwRIZlO1LadDJtPOtp R611NTkkMhB1DRFujfZq N2WaJSBomDplRlR4a1I4Dy6lBq7r MD0wDOAlSC32TS12vCMtd5W6wMK8 X7PfBAXjwrnftheryVJ9 ZUJsTOJyjI74lMCiRMgmKx7ky7D1 g623EQEwKHUngW55Jq4iuOecWGUz nZJRuX4dqahpk6xfdrra CcIlKLTxVQc8IGx8XLGyqIijDsGa RYP8BaM5XJS0qENerR2cyRrlfdmy qY3sNwm+NzIgWWVhcnM8 T1DtGfv0OSWqnGtnUS7kpYQgZCig Cp0evIrgcCjuMA8cNUEnhqbuQNAq gP2dYQCeiFSwfSrzFO5e EJRdwhhfm956WeEiFNJ7LQXlcGJc L5JekU1sGxJpSOBjTNSnE8YcwFXy FVosX244RMwhZxU2ORIt ekOeF4EwUQGeoYkdEzR6b5Z3Pi5T FB6FJQO3J1PmHez9OEErvBttPI2e iYXhXBbiCb8cxAgsjBmr BX3fUUKixmpdDJRuyR0jRPOuwIHa zTfwRB0qPZZwhsrbx384ToUuKZA2 HLKmvOWxO8QauQ9wUyLf SWWjULCvX6ZqdFLtMRpxS235LBcs YaA8MRXlqwDnH9KvSJDftFzfDrT5 o3Z0Ku9YNQwhP9GyC8Yt eTwvdGQ+EC85uw90X3FoAldjLef4 GGJfJBT4rZW8wK4gIGBkIAwjx8U7 wYP5D9PxjcBnri0xm0lm IYMcKPyrT74ubWMmp5A7PMNlbSX2 FOUapHmzQuHukW35Asu+PGNvbGdy t4UgYfqzy3pgy2nvvNz4 NaEfEIJrzwCtbZraVRF9m8EbZo96 X08nLEloGMSyPDVfQPBtMXPkkZxg ck8vuH0fYt4+PGNvbCB3 kYD8dE2wMaIhYqJ3EXyvO624XmEa xSTdLypmi5avh5undSw6GrDpMIPf pmXqoIgwVHG0r0LmFc98 E9EtuCqki4CmJql7dx64rWXsu3Q5 iMJ6O0SuUZMfwfwohNKzaLruAD7t GFDtwztwTKZcjA3cELDd X6f6TxFfZnH9OZvjK0TccjN9CGYv jQNnAHKqcQNFmQ3ytjwoh6zpehwd DzRpCSLqOQq0ETr3AYWz iNzzVgNjUAS9VxZ2CKA7rPQcuJ3o hCztmzvnpB5aLpb+VIy5y3mjqBEq CO4vpNE1UW60ZC98oXUi r3S4qGH1C3DyEXYadsesehdrsJW9 VWGvETMbxC94Lk8hgVndUe1pDAGo JCU9RFTkdBBlH8DuaZ4d WdWhCVEfXTVlJ0BljQUlSEdrU311 MLklMlS2FXRcgwMpD3VvNOWrtVrm MvE2b8D4Rq0HMD34CH53 EH54eVQhi4G8kLC4V2KfCXLhnehj mirltCS2JIIyRNJauI43Br2xbBvn Se4eIJZoBYV4LFLlySOp Y7VnaY5oTmOoBOJrIRLgG1VsqALu ZAajP583YPzePeC9RRWzlsGjX5Ic NEFmiLkzDdR8d0B5Lw0B Qo16PK43KD82dYBvk7J0kQY7N3Db KQPsxyamrzboxLY3UQSwIHVztZ13 Az1csKxnKf4iSFYkVRD1 YZCueURhP0GikT3nZqPxUFOxXLZz I0KarMMuRKdxU408NDpgZaY4MCUx lgWaB1DmJRFzaUjiQoL9 q9C4Ln5NHRccmlo3H5PkFltyuBH+ OZ18MKKnEC51gAXdxHFgn9mmfHb6 FjDxYNIjJOS0gVreUFlc b3J (more content not included)... [facility] Provider Orderson 11-12-2024 Provider Orders [id number]24 Anesthesia Note [id number][facility] [id number][facility] Cons[facility] Formson 11-06-2024 Consent Forms [id number]#[facility] Outside Recordson 11-06-2024 Outside Records [id number][facility] Tele[facility] Stripson Telemetry Strips [id number][facility] 11-05-2024 Anesthesia Note Patient: EMILY GOODE Age: 73 years Sex: FEMALE : [...] DO [Verified on: 11/05/2024 11:20 EDT] Yao aLrry DO [facility] Anesthesia Note Patient: EMILY GOODE Age: 73 years Sex: FEMALE : [...] = 50 mL, 100 mL/hr, IV Piggyback, State Game Protector tranexamic acid: 1,000 mg = 100 mL, 300 mL/hr, IV Piggyback, State Game Protector tranexamic acid: 1,000 mg = 100 mL, 300 mL/hr, IV Piggyback, State Game Protector Documented Medications Documented Iron 100 Plus oral tablet: 1 tab(s), Oral, Daily, 0 Refill(s) Potassium Chloride (Ybf-Exkr-Jco 10) 10 mEq oral tablet, extended release: [...] list: All Problems Anemia / SNOMED CT 971734325 / Confirmed Anxiety / SNOMED CT 20717024 / Confirmed Chronic kidney disease (CKD) / SNOMED CT 6996297621 / Confirmed GERD (gastroesophageal reflux disease) / SNOMED CT 673250958 / Confirmed Hydrocephalus / SNOMED CT 213596477 / Confirmed HTN (hypertension) / SNOMED CT 8268737648 / Confirmed ADITI (obstructive sleep apnea) / SNOMED CT 284169288 / Confirmed OA (osteoarthritis) / SNOMED CT 9068221803 / Confirmed Resolved: Renal artery embolism / SNOMED 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 JUANI BSO - Total abdominal hysterectomy and bilateral salpingo-oophorectomy (3612811595). Big toe (850307036). Comments: 10/17/2024 13:38 Gene Conde RN pinning EGD - esophagogastroduodenoscopy (5637529046). Cervical spinal fusion (829104375). Tonsils and adenoids (111602317). Cardiac catheterization (00427063). Colonoscopy (214091775). TOY MAKER - Ventriculoperitoneal shunt (680912268). Appendectomy (699162771). Cataract (653136546). Comments: 10/17/2024 13:37 Gene Conde RN bilateral Embolization coil (498036703). Comments: 10/17/2024 14:43 BASHIR Cha RN, Gene Jarvis of renal artery Social History Electronic Cigarette/Vaping [...] Never tobacc (more content not included)... Normal [facility] Inpatient Patient Summaryon 11-05-2024 [place] [address] Patient Discharge Instructions Name: EMILY GOODE : 1950 Patient Address: [address] [place] [address] Primary Care Provider: Name: RICO PURCELL After you are discharged if you find you have any questions, please, call [phone] ext [phone] to speak to a nurse. The Pharmacy at [facility] is open Tuesday through Tuesday from 9A [...] alcohol and/or drug addiction problems; contact the [facility] 29/11 Crisis Hotline -Text 4TIMB fm 122637. If you received any narcotics, sedation, or [...] business decisions or sign any legal documents [facility] would like to thank you for allowing us to assist you with your healthcare needs. The following includes patient education materials and information regarding your injury/illness. RUSSEL EMILY ADRIAN has been given the following list of follow-up instructions, prescriptions, and patient education materials: Follow-up Instructions With: Address: When: Estelle Perez [address] [place] [address], [facility] [address] [place] [address] Business (1) 11/19/2024 10:30 AM With: Address: When: RICO PURCELL [address] [place] [address] [place] [id number] Business (1) Medications During the course of [...] mouth) every day. potassium chloride (Potassium Chloride (Vse-Hwrn-Vxo 10) 10 mEq oral tablet, extended release) [...] Plus or (more content not included)... [facility]-05-[facility]24 MAGR Intraoperative Record MAGR Intra-Op Record Summary Primary Physician: SIMBA KNAPP DO Finalized Date/Time: 11/05/24 12:54:39 Pt. Name: EMILY GOODE Erlinda/Sex: 1950 FEMALE Med Rec #: [id number] Physician: SIMBA KNAPP DO Financial #: [id number] Pt. Type: D Room/Bed: [facility] Admit/Disch: 11/05/24 06:00:34 - Institution: Case Times MAGR Entry 1 Patient In Room Time 11/05/24 07:55:00 Out Room Time 11/05/24 10:24:00 Anesthesia Start Time 11/05/24 07:58:00 Stop Time 11/05/24 10:26:00 Surgery Start Time 11/05/24 08:29:00 Stop Time 11/05/24 10:19:00 Last Modified By: Jessi Martin RN 11/05/24 10:36:24 Case Attendance MAGR Entry 1 Entry 2 Entry 3 Case Attendee SIMBA KNAPP Christopher J DO Long, Barbara RN Role Performed Surgeon - Primary Anesthesiologist of Heating Unit Mechanic Record Time In 11/05/24 07:55:00 11/05/24 07:55:00 11/05/24 07:55:00 Time Out 11/05/24 10:24:00 11/05/24 10:24:00 11/05/24 10:24:00 Procedure Arthroplasty Knee Arthroplasty Knee Arthroplasty Knee Total(Right) Total(Right) Total(Right) Last Modified By: Jessi Martin RN, Barbara RN Long, Barbara RN 11/05/24 10:24:17 11/05/24 10:24:17 11/05/24 10:24:17 Entry 4 Entry 5 Entry 6 Case Attendee Johnathon Little Brittany E CSFA Wilkins CST, Rachel CST BEATER BOSS CSFA Role Performed Scrub Personnel Post Hole Digger Post Hole Digger Time In 11/05/24 07:55:00 11/05/24 07:55:00 11/05/24 [...] Knee Total Primary Procedure Yes Primary Surgeon SIMBA KNAPP DO Modifiers Right Surgeon Comment RIGHT [...] Larry Time Out Time 11/05/24 08:28:00 Participants Mario PEARSON Barbara RN, Mariah Rolle CST, Johnathon Little , SIMBA KNAPP DO Last Modified By: Jessi Martin [...] Right Leg Posit (more content not included)... [facility] MAGR Intraoperative Record MAGR Intra-Op Record Summary Primary Physician: Finalized Date/Time: 11/05/24 08:06:57 Pt. Name: EMILY GOODE KAYLAH Ervin./Sex: 1950 FEMALE Med Rec #: [id number] Physician: SIMBA KNAPP DO Financial #: [id number] Pt. Type: D Room/Bed: / Admit/Disch: 11/05/24 [...] Klaehn, Margaret RN Role Performed Anesthesiologist of Heating Unit Mechanic Heating Unit Mechanic Record Time In 11/05/24 07:29:00 11/05/24 07:29:00 [...] Larry Time Out Time 11/05/24 07:30:00 Participants , Griselda Son RN, Garima Clements RN Last Modified By: [...] (Im.[email or web address]) Chlorhexidine Gluco (more content not included)... [facility] 5 [facility] Primary Physician: SIMBA KNAPP DO Finalized Date/Time: 11/05/24 11:09:59 Pt. Name: EMILY GOODE/Sex: 1950 FEMALE Med Rec #: [id number] Physician: SIMBA KNAPP DO Financial #: [id number] Pt. Type: D Room/Bed: / Admit/Disch: 11/05/24 06:00:34 - Institution: PACU Case Times MAGR Entry 1 In PACU I 11/05/24 10:23:00 Discharge from PACU 11/05/24 11:09:00 I Last Modified By: Garima Clements RN 11/05/24 11:09:54 Finalized By: Garima Clements RN Document Signatures Signed By: Garima Clements RN 11/05/24 11:09 [facility] MAGR Postoperative Recordon 11-05-2024 MAGR Postoperative Record MAGR Phase II Record Summary Primary Physician: SIMBA KNAPP DO Finalized Date/Time: 11/05/24 14:02:50 Pt. Name: EMILY GOODE KAYLAH Coffey/Sex: 1950 FEMALE Med Rec #: [id number] Physician: SIMBA KNAPP DO Financial #: [id number] Pt. Type: D Room/Bed: 205/1 Admit/Disch: 11/05/24 06:00:34 - Institution: Phase II [...] Signed By: Gene Cha RN 11/05/24 14[facility]02 [facility] 11-05-2024 MAGR Preoperative Record MAGR Pre-Op Record Summary Primary Physician: SIMBA KNAPP DO Finalized Date/Time: 11/05/24 08:07:37 Pt. Name: EMILY GOODE./Sex: 1950 FEMALE Med Rec #: [id number] Physician: SIMBA KNAPP DO Financial #: [id number] Pt. Type: D Room/Bed: / Admit/Disch: 11/05/24 [...] consent correct. General Comments: Pt arrives to psw ambulatory. PT denies cp, sob, cough or flu like symptoms. Pt denies pacemaker/defibillator, pt has sleep apnea. Finalized By: Garima Clements RN Document Signatures Signed By: Garima Clements RN 11/05/24 08:07 [facility] Patient Handouton 11-04-2024 Patient Handout POST [...] #[address] Knapp at the office [phone] or have him paged through the hospital lcac operator [phone] for any concerns or questions #12 You [...] prevent blood clots. [facility] Progress Note - Nurseon - Progress Note - Nurse Pre op phone call made, spoke with patient. Confirmed time of arrival for 0600 on 11/05/24. Reviewed instructions as given at [facility]. Reminded to bring walker in. [Electronically Signed on: 11/02/2024 09:33 EDT] Garima Clements RN [Verified on: 11/02/2024 09:33 EDT] Garima Clements RN [facility] Coding Queryon 11-01-2024 Coding Query [id number]#[id number] Normal [facility] Coding Summaryon 10-30-2024 Coding Summary HTMLBase 64 LjjlhteiUTw7yEg+PGhlYWQ+PE1F NEOgL77srPBmyH3tF5NQHDzDXoio CMQXIItPMrGmomVwFL7lnDYuTDLe IC8+XF8dKGHqJhwnrTLwj9M7hEE1 R94dkk1lIYlpbPT3CSYnJaKlmldf w9agaQv8PZakJexyViNt GXRadD17LIW6yL21Hj14tYRjuQAt r2zlvUj2KfJoLNGqLWL3wUaeSKkc q7WcCXJbT43zjMDhs1N3 UUYezCxwtGHoNvEpbEA0sZ0qOIby eyrck5brrakpRlx5ez22oPKgt3N6 kPM1Y0YsbvR9FJKnqGLb TdeqzWBVwA4dzgvkg3kzafwaVoSy UYZlNXu4RQd5LNXnrNxjQeYxGI46 EEI9QDGpjrQrM3QvZJBp qMjfOyM1g0A3Vm9WZ1PHTgkhO5UN TUFSWTwvdGQ+MQ11qw69M8TcGmku Iqb7BCVpWSZ8vHP4sC3a TCRtCEdkw7C0zLU7O3KjlpErms0g g5xqTYTaMSelU03meWFfc1E1FZOm qMP1QLAqgNngCnHnyO49 Oyc+AKFhlDufc4VwCyaoc1xxv2oj nXg3XbxlYWKiksDmuPccGWN1d7Wh Nr6sPJAkwQY5oQY1iL9k LdJuTiH1LQrhW095TrIndYQaZles V05nE3AbgME+VNSePqf4APIbnCgg TK3qW4RhPSFezhdvaAWs uBizQW3xXJKbsgfzITNskZ3yOFEd W1v5BvRxOxR8QZulD6ZtRSMdmoeu Mn03aJ9lMbHiNnY8IByz D2NzxmH7MJHlsRBfTVfoNAP6E65h q2S2ABXgYJQgBBK5lZC1yQ6sgIon bjogbGVmdDsgdmVydGlj YJfgVWmgH626GCQmtDavXzRcUCrw ZyBEYXRlOiAgMDYvMjQvMjAyNTwv dGQ+OFBlZQB1oHdgGRBt oVQjRZsuEp9eiFbqdAbiRZ6fDBQv miitLBAiwI6xFHBqlWQbuBqzXY8s HPXcphrrq866OpDtMIO7 PDGidNIsN3DzuM4nAnYyTKFmUVRd K6ZfeTEvPHivN331KQhgGyV4RJMn fcTbE9XeYJCgzZxjBoJ8 f1F9Oh6An4WoujuwA8JcxKVmMdCk DnuaEZq6V8ZhFkgyvYU+CA42CDFe VF98LGs8BTQ5uAjgOUqv ILLcU0OekP2xPwWxTLJwXHDhXfv+ PHRhYmxlIHdpZHRoPScxMDAlJyBz zBwhYH7eVc6bMJNdWKPx iDgfsZNuSyTwp5zhIWAkPDwpVQ4g hRhqV9GegWP5BDVjx2g2Ta16F88r K0MliJK+BSVxlYO1mNJ7 fQ4qHwMlEdD8NQrvH117ZiBrlYGe Ilxhi0vvw2dwmJn0HbF4MIQneiDq fPuhLPL3e5NeKx07S74x NXojKEKrGTKvTRQkENRbzDjfjv5f cW0cBu6+ZGCfvIR8kHS4gW7dKlWg FvL9MVrxQ822CsTbiCGu Yqars2drc7jjfWb5GgFxGISalhBs dTlxPFE5v4LwOy05M2WkpZqho4Nk Pvl6lo34iZNfc2P5dEO5 B3BkMPDrcnbqoTLcoBxtVY0kQZDo mqdiBFPbiB2zBMMuU9s3VfMqHnY8 QKufU3ArxtD7AVExcESh DVJxxRSZjT6dtybpp8jsxxceUeIb NMFzZBw7CKm9TQUchAmqEjRfXSW7 SeX9TLQ2rYRqiN7bfTnr escujZ5gTwz+JBC5oSWumBNOEL6l OjwvdGQ+ARYkODI8cCbzXYvtVJNj lO6iALFqD6g0YjHjQnU6 CFilV5GchbL0AHCtrXOzDKUftNUE mJ3nibwmy4oizlyvLnFjSXHvHEv4 XYi8XWAfuNurHaOkTMR5 GmN0VNO5eKZnaT4hlDcrjvifcL0b Oyc+ZgxtoVjfGPU1JRn4Q0UsFbe7 EWQgiEqnBW8qpJRbPCox Wn0qnBvrwMlvUI2pVEHafddns143 RhQuk5keUBNvyNJmLNquBDF1Y57r v1J9NGNrIGMsJLN7xWE6 gD4rrOnezvyywQTjqKbdkdFzjCqt GZvpTCcqA200RCJptOqdMqPdYBe7 R4AfXti9YLHnlHylUC6t rVOuEMgvFe5ufJifzLtgDF3nWDUi hfhyd285OwNjc5osKQMdrTSbGFjm TIS0Q22hr1Y4HWSlMKNk KVU3eSI4vH4tkBclyhpeaXBcmZgy qsMwdYpbOObpOQdrQ409RPJpkRoh PsCuiTs2A4JpWri1MLKh nFhlJH4huEBgGXpvMa4glJxcvNhp HB3zXFAeechwl377NjBhr5qiUKBt cEPuQCrnBAW7T25nv1Q2 LRRrEGPwQWD1mUD7xR4tcZfwujoj oAIqqVluthUpxMizWCfmUBpnG478 IHRvcDsnPlBhdGllbnQg LVmsFAl3M2EmTrzjyKJ+CZ08FEIr HL90dHRkwXHpl1qmrYr9HdOqYIKl ZEW2vPlpKIywy8XoXZNl E25zmULtd7S4XPMguWurnQVdMqXr iJK6oM6wGNlgfxfxv8yqlrsxRhpf l4dybg82zD11X68bBUlw RKIzTLLiUIQuZXPvoLcjna0imD2m Ii8+CKTyhMA5bFR1uJ8gJKBuXrQ1 QXdhW594FhPneULsZrep z3bhl6tkgUy9OzF8GSFqddGkqIty ERO4d6KxPj30H62bZBsrWBOyBJIb ETIxHDIfhOnpjm1gjN0w Ii8+VZErgHP9yVD1dP3eCsWpHzJ1 MMckI937UkQdbRNaZsocC59dM5Nr dXA+GGEoEmd8VQVwzCjq AW7pkIZmDWsqOy8jSVP3NhGyBcHo EPwiY1MlHSQrenjkqkscsBJ5OHTh ESGnnM82Pe4fwRrqVEYy zQGNzZ7gftvso8rdhrweNaGjCZWc SVl3LZv5IERfeYgzLsFaOAG7WdP9 CCQ4uRCgdH0lmYngptuv fJ7nM7QjWBAmvcihQf39rP2cBuQx NlD6YJhhNcg+UkFJRlNOSURFUiwg CyHLBHVxOUEIEFD7L9Kq Ndv0ADOwmJzuWY1zjGLbPMecJa4o hLaihDcfUV8dXIBavqznISSxqO2z UVOzrWHjvFkdVY7nKTZu ospsz027IaHaTJQ0DEXfhFHvU9Gl rI3mNjNoTTEoPWXjZ8TmlRRfOXcy B177RDnnMgV3HQOzcgFx L0XrVWYwqKhyGoQ9y2C9Gu8oZb7a JA8lMHOqLH38WK19gYJvw7X3rZI2 Z9YtIUAzcathtfofdXV0 AFPyMXIcfW32eCQtDVlzZn7om7F4 d697KWGuIFSroM82Fm1laSrdIMXc vUPAkB1octpvc6nharfm WkQfNQAvRJs4JRn6CEPvcYbgScLb XJV8NmV2GUG2eDEijY9qhRmcjygu jQ0eXus+NzEgWWVhcnM8 X8OjFdl5ARTutMbtSM8xaGCjFDdd Mg9dvGwdcCuwTF0qEEOedhgiVJWo iF9bUSMcrBUzmIvbYM5f SJHedcdpy980QmNpVDG3SRIhvHZb P4CrrG5nUeCwLBEvVZRrZ4RxgFNk ESljW747OUsgMfR0AZNo utVxG9FiSDZsoHxkZkZ6w1S7Qz4O WH6JXDQ9S7FyKkg3DHInhFfiQZ8s bDZoZNsvGr9baSduwLdt WB7cEIWicerrYHHvgB4yJNUzoSMx iUsjHO4rVYQqfalbi082AjKrSCJ6 MPIwtYLdW5CzqH0yCpUc ADHfMCMdG4TvhYYeFCjkD933LZgz AiF2OIOgnjUrK7XuOFXrvYfoGiF5 e0B3Ld4KQArtcBJ+PC90 nk78D5ZfFjyiDbh0SALlGAW2wKP3 dO5yIQRxSGtua4I8fAM7J8ZmauVp vf8ve7hjAPFaPUmyG93a nHSda3L5TYPsfRR1FSNnrNgiJhSk wU50Gif+AHXejHxtj1KdPvgzw7ir g9sehCr1FaSlHKOwlsUs jXonIYE9v3ChLb13P46sUDsgLRWf MVEoJMUwTRPxpSkzfa2pxO1xFj2+ FJEkfBI7kPZ7tV6zFeFe SfZ5FTlbM140WrKvbWGbHscwy5fh y5zxfAx7XbTsWGIdhvLzdPcgTDQ4 i0TnKw40M0ImlRley8Jb Phf2aw75oRLsi3Z5iUK8P8NmRMAp shmrzSOnzSbbFF8nHEDynxwoHEOw vD2hJUDxV2x5QoYaTzM4 IMvvB7RmetO2WSJpyRLqOPGvaLLY qP4ynxcna6xdkgayIvCeYRWtSQl1 VYg9EZDmsHcmNoTnRUN6 QrC7TVL2qGNslK7ihZobqhnusN9u Oyc+OMv7j3ejeZVaCV7mgZY7UJ23 AK31aKVzj0Y9mOC8X8Ru MROypkdzrgrcsAB3HNMiDUMdhN62 Fb6foQmgJo3zQDOaMKG5BOKupACz B2StjG3jEyDaOMNwGNQi Q0LroDNjVHcxL943FTvvDtP3ZJXu ekEhP7RcPLCsqLehOgG4j7D7Mt7D RQ75WT20OM93hZCuf7J1 yPJ1N8XkHNGdzvnhhtnlsMS9CECx WFLfdJ78Dm3ihExoCv2cLTNmQXE9 EHMxqIWhP4FbtT5oWhRq LRDfEYKgL9JisRKvJRjeL164VJrj PsO1CDHbreIeA5RxYJWcsPhmIxB1 w1B3Iz2CGa09LN79KS26 vEQsx0G9hTW4S2OyGMLxzhawigdh cJQ3HWXwJXAjdP88Ze1epRfmNq6q LXUoSPU6LAZrjEXeV8Ps sE0wLfZzJRRzDOYgL7YxhBOdSJde U993OFbmYoR7DMYesbIkK6DlQYFl zAlgXuU7k0U2Og3TOEpr unv8F6QkDshwjNI+QV63OASbOH36 sUSndEEjf0ijvGm5YkHdLLWoVCE6 fFyfZOsrr0ZdWPGyG39h bGF (more content not included)... Normal [facility] UA (CLEAN/CATCH) MICROSC OPIC IF INDICATEon 10-29-2024 BILIRUBIN URINE Negative NEGATIVE [facility] BLOOD URINE Negative NEGATIVE [facility] Clarity (U) CLEAR CLEAR [facility] Color (U) YELLOW YELLOW [facility] GLUCOSE URINE UA Negative NEGATIVE mg/dL [facility] Interpretation and review of laboratory results Abnormal [facility] Ketones Ql (U) Negative NEGATIVE mg/dL [facility] Leukocyte esterase Test strip Ql (U) TRACE Abnormal NEGATIVE [facility] NITRITE URINE Negative NEGATIVE [facility] pH (U) 6.5 [pH] 5.0 - 9.0 [facility] PROTEIN URINE Negative NEG/TRACE mg/dL [facility] SPECIFIC GRAVITY URINE 1.010 1.005 - 1.025 [facility] URINE MICROSCOPIC INDICATED YES [facility] UROBILINOGEN URINE 0.2 EU/dL 0.2 - 1.0 EU/dL [facility] C Urineon 10-19-2024 C Urine Urine Culture [...] Tri/Sulf <=0.5/9.5 Verified Vanc S 1 Verified [facility] Comment on above: Performed By: #### 1 [id number], [id number] ####[facility] (DEFAULT)[address] [place] [address] Progress Note - Nurseon 10-07 Progress Note - Nurse chart reviewed per Dr Garvin, anesthesia, and no new orders received [Electronically Signed on: 10/19/2024 11:51 EDT] Griselda Son RN [Verified on: 10/19/2024 11:51 EDT] Griselda Son RN [facility] Progress Note - Nurse Call made to Dr. Jorge beckham office, spoke with Nlela. Informed of urine results being faxed. States she received them and will address it. [Electronically Signed on: 10/19/2024 10:13 EDT] Garima Clements RN [Verified on: 10/19/2024 10:13 EDT] Garima Clements RN [facility] Progress Note - Nurse U/A results faxed to Aria's office ([place]) today. [Electronically Signed on: 10/19/2024 07:46 EDT] Sharon Anne RN [Verified on: 10/19/2024 07:46 EDT] Sharon Anne RN [facility] Provider Orderson 10-18-2024 Provider Orders [id number] [facility] .Auto Diff 1on 10-17-2024 Auto [place] % 8 % Normal 05-20 [facility] Comment on above: Performed By: #### 1 [id number], [id number] ####[facility] (DEFAULT)[address] [place] [address] Baso Abs# 0.1 x10 Normal 0.0-0.2 [facility] Comment on above: Performed By: #### 1 [id number], [id number], [id number] ####[facility] (DEFAULT)[address] [place] [address] 36890 Basophils/100 WBC (Bld) 1.3 % Normal 0.2-2.0 [facility] Comment on above: Performed By: #### 1 [id number], [id number], [id number] ####[facility] (DEFAULT)[address] [place] [address]851 Eos Abs# 0.2 x10 Normal 0.0-0.4 [facility] Comment on above: Performed By: #### 1 [id number], [id number] ####[facility] (DEFAULT)[address] [place] [address] 83576 Eosinophils/100 WBC (Bld) 2.7 % Normal 0.9-4.0 [facility] Comment on above: Performed By: #### 1 [id number], [id number], [id number] ####[facility] (DEFAULT)[address] [place] [address] 22967 Lymph Abs# 1.8 x10 Normal 1.3-2.9 [facility] Comment on above: Performed By: #### 1 [id number], [id number], [id number] ####[facility] (DEFAULT)[address] [place] [address]35 Lymphocytes/100 WBC (Bld) 20 % Normal 14-48 [facility] Comment on above: Performed By: #### 1 [id number], [id number], [id number] ####[facility] (DEFAULT)[address] [place] [address] [place] Abs# 0.7 x10 Normal 0.0-0.8 [facility] Comment on above: Performed By: #### 1 [id number], [id number], [id number] ####[facility] (DEFAULT)[address] [place] [address] Neut Abs# 5.8 x10 Normal 1.5-9.2 [facility] Comment on above: Performed By: #### 1 [id number], [id number], [id number] ####[facility] (DEFAULT)[address] [place] [address] Neutrophils/100 WBC (Bld) 68 % Normal 44-88 [facility] Comment on above: Performed By: #### 1 [id number], [id number], [id number] ####[facility] (DEFAULT)[address] [place] [address] Standardon 10-17-2024 eGFR Non AA 49 mL/min/1.73m2 Invalid Interpretation Code [facility] Comment on above: Performed By: #### 1 [id number], [id number], [id number] ####[facility] (DEFAULT)[address] [place] [address]191 eGFR AA 60 mL/min/1.73m2 Invalid Interpretation Code [facility] Comment on above: Performed By: #### 1 [id number], [id number], [id number] ####[facility] (DEFAULT)[address] [place] [address]1975 Anion gap [Moles/Vol] 13.0 mmol/L Normal 5.0-19.0 [facility] Comment on above: Performed By: #### 1 [id number], [id number], [id number] ####[facility] (DEFAULT)[address] [place] [address] 49270 Calcium [Mass/Vol] 9.5 mg/dL Normal 8.9-10.3 [facility] Comment on above: Performed By: #### 1 [id number], [id number], [id number] ####[facility] (DEFAULT)[address] [place] [address] 93281 Chloride [Moles/Vol] 98 mmol/L Low 101-111 [facility] Comment on above: Performed By: #### 1 [id number], [id number], [id number] ####[facility] (DEFAULT)[address] [place] [address] 21729 CO2 [Moles/Vol] 27 mmol/L Normal 21-32 [facility] Comment on above: Performed By: #### 1 [id number], [id number], [id number] ####[facility] (DEFAULT)[address] [place] [id number] Creatinine [Mass/Vol] 1.09 mg/dL Normal 0.60-1.30 [facility] Comment on above: Performed By: #### 1 [id number], [id number], [id number] ####[facility] (DEFAULT)[address] [place] [address]17 Glucose [Mass/Vol] 112.0 mg/dL Normal 74.0-118.0 [facility] Comment on above: Performed By: #### 1 [id number], [id number], [id number] ####[facility] (DEFAULT)[address] [place] [address] 16956 Osmolality 273 mOsm/L Invalid Interpretation Code [facility] Comment on above: Performed By: #### 1 [id number], [id number], [id number] ####[facility] (DEFAULT)[address] [place] [address]6464 Potassium [Moles/Vol] 4.0 mmol/L Normal 3.6-5.1 [facility] Comment on above: Performed By: #### 1 [id number], [id number], [id number] ####[facility] (DEFAULT)[address] [place] [address] Sodium [Moles/Vol] 134.0 mmol/L Low 136.0-144 . 0 [facility] Comment on above: Performed By: #### 1 [id number], [id number], [id number] ####[facility] (DEFAULT)[address] [place] [address] Urea nitrogen [Mass/Vol] 23 mg/dL Normal 8-26 [facility] Comment on above: Performed By: #### 1 [id number], [id number], [id number] ####[facility] (DEFAULT)[address] [place] [address] Urea nitrogen/Creatinine [Mass ratio] 21.1 mg/mg High 4.6-16.2 [facility] Comment on above: Performed By: #### 1 [id number], [id number], [id number] ####[facility] (DEFAULT)[address] [place] [address] CBC w/ Auto Diffon 5 Erythrocyte distribution width (RBC) [Ratio] 13.7 % Normal 11.5-15.0 [facility] Comment on above: Performed By: #### 1 [id number], [id number], [id number] ####[facility] (DEFAULT)[address] [place] [address] Hematocrit (Bld) [Volume fraction] 37.6 % Normal 33.7-40.4 [facility] Comment on above: Performed By: #### 1 [id number], [id number], [id number] ####[facility] (DEFAULT)[address] [place] [address] Hemoglobin (Bld) [Mass/Vol] 12.8 g/dL Normal 11.3-15.9 [facility] Comment on above: Performed By: #### 1 [id number], [id number], [id number] ####[facility] (DEFAULT)[address] [place] [address] Man Diff? Auto Invalid Interpretation Code [facility] Comment on above: Performed By: #### 1 [id number], [id number], [id number] ####[facility] (DEFAULT)[address] [place] [address] 96481 MCH (RBC) [Entitic mass] 30 pg Normal 24-34 [facility] Comment on above: Performed By: #### 1 [id number], [id number], [id number] ####[facility] (DEFAULT)[address] [place] [address] MCHC (RBC) [Mass/Vol] 34 g/dL Normal 26-37 [facility] Comment on above: Performed By: #### 1 [id number], [id number], [id number] ####[facility] (DEFAULT)[address] [place] [address] MCV (RBC) [Entitic vol] 89 fL Normal 81-100 [facility] Comment on above: Performed By: #### 1 [id number], [id number], [id number] ####[facility] (DEFAULT)[address] [place] [address] Platelet 373 x10 Normal 138-427 [facility] Comment on above: Performed By: #### 1 [id number], [id number], [id number] ####[facility] (DEFAULT)[address] [place] [address] Platelet mean volume (Bld) [Entitic vol] 7.0 fL Normal 6.3-10.2 [facility] Comment on above: Performed By: #### 1 [id number], [id number], [id number] ####[facility] (DEFAULT)[address] [place] [address] RBC 4.21 x10 Normal 3.70-5.30 [facility] Comment on above: Performed By: #### 1 [id number], [id number], [id number] ####[facility] (DEFAULT)[address] [place] [address] WBC 8.6 x10 Normal 3.5-10.5 [facility] Comment on above: Performed By: #### 1 [id number], [id number], [id number] ####[facility] (DEFAULT)[address] [place] [address] UA [id number] 10-17-2024 UA Bacteria None [facility] Comment on above: Order Comment: Urina lysis Microscopic order added on by [employer] Expert Rules system. Performed By: #### 1 [id number], [id number], [id number] ####[facility] (DEFAULT)[address] [place] [address] UA RBC 0-2 [facility] Comment on above: Order Comment: Urina lysis Microscopic order added on by [employer] Rules system. Performed By: #### 1 [id number], [id number], [id number] ####[facility] (DEFAULT)[address] [place] [address] UA Squam Epi Few [facility] Comment on above: Order Comment: Urina lysis Microscopic order added on by [employer] Expert Rules system. Performed By: #### 1 [id number], [id number], [id number] ####[facility] (DEFAULT)[address] [place] [address] UA WBC 3-5 [facility] Comment on above: Order Comment: Urina lysis Microscopic order added on by [employer] Rules system. Performed By: #### 1 [id number], [id number], [id number] ####[facility] (DEFAULT)[address] [place] [address] UA w Culture if Ind Standard on 10-17-2024 Breakpoint UA [facility] Comment on above: Performed By: #### 1 [id number], [id number], [id number] ####[facility] (DEFAULT)[address] [place] [address] Color (U) Yellow [facility] Comment on above: Performed By: #### 1 [id number], [id number], 99793445 ####[facility] (DEFAULT)[address] [place] [address] Culture? Indicated Invalid Interpretation [facility] Comment on above: Result Comment: Resu lt created by rule GL_MAGR_ADD_UA_CULT Result created by rule GL_MAGR_ADD_UA_CULT Result created by rule GL_MAGR_ADD_UA_CULT1 Result created by rule GL_MAGR_ADD_UA_CULT Performed By: #### 1 [id number], [id number], [id number] ####[facility] (DEFAULT)[address] [place] [address] 81662 Glucose (U) [Mass/Vol] Negative Normal [facility] Comment on above: Performed By: #### 1 [id number], [id number], [id number] ####[facility] (DEFAULT)[address] [place] [address] 91124 Ketones Ql (U) Negative Normal [facility] Comment on above: Performed By: #### 1 [id number], [id number], 25104977 ####[facility] (DEFAULT)[address] [place] [address] Micro? Indicated Invalid Interpretation Code [facility] Comment on above: Result Comment: Resu lt created by rule GL_MAGR_ADD_UA_MICRO Performed By: #### 1 [id number], [id number], [id number] ####[facility] (DEFAULT)[address] [place] [address] 59576 UA Bilirubin Negative Normal [facility] Comment on above: Performed By: #### 1 [id number], 3794132, [id number] ####[facility] (DEFAULT)[address] [place] [address] 18349 UA Blood Negative Normal NEGATIVE [facility] Comment on above: Performed By: #### 1 [id number], [id number], [id number] ####[facility] (DEFAULT)[address] [place] [address] 33232 UA Clarity CLEAR Normal CLEAR [facility] Comment on above: Performed By: #### 1 [id number], [id number], 18586026 ####[facility] (DEFAULT)[address] [place] [address] 19721 UA Leuk Est SMALL Abnormal NEGATIVE [facility] Comment on above: Performed By: #### 1 [id number], 5329203, [id number] ####[facility] (DEFAULT)[address] [place] [address] 40171 UA Nitrite Negative Normal NEGATIVE [facility] Comment on above: Performed By: #### 1 [id number], 8760709, [id number] ####[facility] (DEFAULT)[address] [place] [address] 86087 UA pH 7.0 Normal 5-8 [facility] Comment on above: Performed By: #### 1 [id number], 8541736, 28101114 ####[facility] (DEFAULT)[address] [place] [address]39 UA Protein Negative Normal NEGATIVE [facility] Comment on above: Performed By: #### 1 [id number], 9046744, 54565894 ####[facility] (DEFAULT)[address] [place] [address] 79476 UA Spec Grav 1.010 Normal 1.001-1.[address] [place] [address] Comment on above: Performed By: #### 1 [id number], [id number], 77795023 ####[facility] (DEFAULT)[address] [place] [address] 49482 UA Urobilinogen 0.2 mg/dL Normal 0.2-1.0 [facility] Comment on above: Performed By: #### 1 [id number], 5609195, 36376980 ####[facility] (DEFAULT)[address] [place] [address] 90566 Urine Source Clean Catch Normal [facility] Comment on above: Performed By: #### 1 [id number], [id number], [id number] ####[facility] (DEFAULT)[address] [place] [address] 96388 Appearance of UrineOrdered B y: Simba Knapp on 07-16-2024 Appearance (U) Urine appearance Clear [facility] Bacteria [Presence] in Urine by AutomatedOrdered By: Simba Knapp on 07-16-2024 Bacteria Auto Ql (U) Bacteria [Presence] in Urine by Automated None Seen [facility] Basic Metabolic Panelon 07-07 Anion gap [Moles/Vol] 8.1 mmol/L Normal 6.0-15.0 [facility] Comment on above: Performed By: #### B MP #### [address] Calcium [Mass/Vol] 9.4 mg/dL Normal 8.6-10.3 [facility] Comment on above: Result Comment: PERF ORMED BY: [place] [address] PATHOLOGIST [employer] LE[employer] YUSEF MEJIA M.D. Performed By: #### B MP #### [address] Chloride [Moles/Vol] 102 mmol/L Normal 98-107 [facility] Comment on above: Performed By: #### B MP #### [address] CO2 [Moles/Vol] 29.5 mmol/L Normal 21.0-31.0 [facility] Comment on above: Performed By: #### B MP #### [address] Creatinine [Mass/Vol] 0.95 mg/dL Normal 0.60-1.20 [facility] Comment on above: Performed By: #### B MP #### [place] [address] [place] GFR/1.73 sq M.predicted MDRD (S/P/Bld) [Vol rate/Area] mL/min/{1.73_m2} Normal [facility] Comment on above: Performed By: #### B MP #### [address] Glucose [Mass/Vol] 121 mg/dL High 70-100 [facility] Comment on above: Result Comment: [place] Glucose Reference Range is dependent on time and content of last meal. Glucose of more than 200 mg/dL in a nonstressed, ambulatory subject supports the diagnosis of Diabetes Mellitus. ADA recommended reference range Performed By: #### B MP #### [address] Potassium [Moles/Vol] 3.6 mmol/L Normal 3.5-5.1 [facility] Comment on above: Performed By: #### B MP #### [facility] [address] Sodium [Moles/Vol] 136 mmol/L Normal 136-145 [facility] Comment on above: Performed By: #### B MP #### [facility] [address] Urea nitrogen [Mass/Vol] 19 mg/dL Normal 7-25 [facility] Comment on above: Performed By: #### B MP #### [facility] [address] Basophils Auto (Bld) [#/Vol] Ordered By: Simba Knapp on 07-16-2024 Basophils (Bld) [#/Vol] Automated basophil [facility] 0[facility]0-0.2 [facility] Bas[facility]/100 WBC Auto (Bld) Ordered By: Simba Knapp on 07-16-2024 Basophils/100 WBC (Bld) Automated basophil % . [facility] Bilirubin Test strip Ql (U)O rdered By: Simba Knapp on 07-16-2024 Bilirubin Ql (U) Bilirubin.total [Pre sence] in Urine by Test strip Negative [facility] Calcium [Mass/volume] in Ser um or PlasmaOrdered By: Simba Knapp on 07-16-2024 Calcium [Mass/Vol] Calcium [Mass/volume ] in Serum or Plasma 8.6-10.3 [facility] Carbon dioxide, total [Moles /volume] in Serum or PlasmaOrdered By: Simba Knapp on 07-16-2024 CO2 [Moles/Vol] Carbon dioxide, tota l [Moles/volume] in Serum or Plasma 21.0-31.0 [facility] Chloride [Moles/volume] in S madhav or PlasmaOrdered By: Simba Knapp on 07-16-2024 Chloride [Moles/Vol] Chloride [Moles/vol ume] in Serum or Plasma 98-107 [facility] Color Auto (U)Ordered By: Marcus Knapp on 07-16-2024 Color (U) Color of Urine by Auto Yellow [facility] Complete Blood Count Auto Di ffon 07-16-2024 Basophils (Bld) [#/Vol] 0.1 10*3/uL Normal 0.0-0.2 [facility] Comment on above: Result Comment: PERF ORMED BY: [place] [address] PATHOLOGIST [employer] YUSEF MEJIA M.D. Performed By: #### C BC #### [address] Basophils/100 WBC (Bld) 1.5 % Normal . [facility] Comment on above: Performed By: #### C BC #### [address] Eosinophils (Bld) [#/Vol] 0.2 10*3/uL Normal 0.0-0.45 [facility] Comment on above: Performed By: #### C BC #### [address] Eosinophils/100 WBC (Bld) 3.3 % Normal . [facility] Comment on above: Performed By: #### C BC #### [address] Erythrocyte distribution width (RBC) [Ratio] 13.3 % Normal 11.9-15.3 [facility] Comment on above: Performed By: #### C BC #### [address] Hematocrit (Bld) [Volume fraction] 34.5 % Normal 34.0-46.4 [facility] Comment on above: Performed By: #### C BC #### [address] Hemoglobin (Bld) [Mass/Vol] 11.7 g/dL Low 11.8-15.4 [facility] Comment on above: Performed By: #### C BC #### [address] Lymphocytes (Bld) [#/Vol] 1.3 10*3/uL Normal 1.00-4.8 [facility] Comment on above: Performed By: #### C BC #### [address] Lymphocytes/100 WBC (Bld) 20.5 % Normal . [facility] Comment on above: Performed By: #### C BC #### [address] MCH (RBC) [Entitic mass] 30.3 pg Normal 24.7-34.3 [facility] Comment on above: Performed By: #### C BC #### [address] MCV (RBC) [Entitic vol] 89.5 fL Normal 80-100 [facility] Comment on above: Performed By: #### C BC #### [address] Mean Corpuscular HGB Conc 33.8 g/dL Normal 32.0-35.0 [facility] Comment on above: Performed By: #### C BC #### [address] Monocytes (Bld) [#/Vol] 0.6 10*3/uL Normal 0.0-0.8 [facility] Comment on above: Performed By: #### C BC #### [address] Monocytes/100 WBC (Bld) 10.1 % Normal . [facility] Comment on above: Performed By: #### C BC #### [address] Neutrophils (Bld) [#/Vol] 4.1 10*3/uL Normal 1.8-7.7 [facility] Comment on above: Performed By: #### C BC #### [address] Neutrophils/100 WBC (Bld) 64.6 % Normal . [facility] Comment on above: Performed By: #### C BC #### [address] [address] [place] NRBC% 0.1 /100{WBC} Normal 0-0.5 [facility] Comment on above: Performed By: #### C BC #### [address] Platelet mean volume (Bld) [Entitic vol] 7.3 fL Normal 6.3-10.7 [facility] Comment on above: Performed By: #### C BC #### [address] Platelets (Bld) [#/Vol] 338 10*3/uL Normal 150-450 [facility] Comment on above: Performed By: #### C BC #### [address] RBC (Bld) [#/Vol] 3.85 10*6/uL Normal 3.60-5.00 [facility] Comment on above: Performed By: #### C BC #### [address] WBC (Bld) [#/Vol] 6.4 10*3/uL Normal 3.8-11.6 [facility] Comment on above: Performed By: #### C BC #### [address] Creatinine [Mass/volume] in Serum or PlasmaOrdered By: Simba Knapp on 07-16-2024 Creatinine [Mass/Vol] Creatinine [Mass/v olume] in Serum or Plasma 0.60-1.20 [facility] Dipstick and Microscopicon 0 07-16-2024 Appearance (U) Clear Normal Clear [facility] Comment on above: Order Comment: Comme nt do urine C S if indicated by + UA Name Collection Type:: Clean-Voided Midstream Performed By: #### A DDONUAPLUS, CUU #### [address] Bacteria,Urine None Seen Normal None Seen [facility] Comment on above: Order Comment: Comme nt do urine C S if indicated by + UA Name Collection Type:: Clean-Voided Midstream Performed By: #### A DDONUAPLUS, CUU #### [address] Bilirubin,Urine Negative Normal Negative [facility] Comment on above: Order Comment: Comme nt do urine C S if indicated by + UA Name Collection Type:: Clean-Voided Midstream Performed By: #### A DDONUAPLUS, CUU #### [address] Color (U) Yellow Normal Yellow [facility] Comment on above: Order Comment: Comme nt do urine C S if indicated by + UA Name Collection Type:: Clean-Voided Midstream Performed By: #### A DDONUAPLUS, CUU #### [address] Glucose Ql (U) Normal Normal Normal [facility] Comment on above: Order Comment: Comme nt do urine C S if indicated by + UA Name Collection Type:: Clean-Voided Midstream Performed By: #### A DDONUAPLUS, CUU #### [address] Hyaline Casts,Urine 0-8 Normal 0-8 [facility] Comment on above: Order Comment: Comme nt do urine C S if indicated by + UA Name Collection Type:: Clean-Voided Midstream Performed By: #### A DDONUAPLUS, CUU #### [address] Ketones Ql (U) Negative Normal Negative [facility] Comment on above: Order Comment: Comme nt do urine C S if indicated by + UA Name Collection Type:: Clean-Voided Midstream Performed By: #### A DDONUAPLUS, CUU #### [address] Leukocyte esterase Test strip Ql (U) 2+ High Negative [facility] Comment on above: Order Comment: Comme nt do urine C S if indicated by + UA Name Collection Type:: Clean-Voided Midstream Performed By: #### A DDONUAPLUS, CUU #### [place] [address] [place] Mucus,Urine Rare Normal [facility] Comment on above: Order Comment: Comme nt do urine C S if indicated by + UA Name Collection Type:: Clean-Voided Midstream Result Comment: PERF ORMED BY: [place] [address] PATHOLOGIST [employer] LE[employer] YUSEF MEJIA M.D. Performed By: #### A DDONUAPLUS, CUU #### [place] [address] [place] Nitrite,Urine Negative Normal Negative [facility] Comment on above: Order Comment: Comme nt do urine C S if indicated by + UA Name Collection Type:: Clean-Voided Midstream Performed By: #### A DDONUAPLUS, CUU #### [place] [address] [place] Occult Blood,Urine Negative Normal Negative [facility] Comment on above: Order Comment: Comme nt do urine C S if indicated by + UA Name Collection Type:: Clean-Voided Midstream Result Comment: PERF ORMED BY: [place] [address] PATHOLOGIST [employer] LE[employer] YUSEF MEJIA M.D. Performed By: #### A DDONUAPLUS, CUU #### [place] [address] [place] pH (U) 6.5 [pH] Normal 5.0-9.0 [facility] Comment on above: Order Comment: Comme nt do urine C S if indicated by + UA Name Collection Type:: Clean-Voided Midstream Performed By: #### A DDONUAPLUS, CUU #### [place] [address] [place] Protein,Urine Trace High Negative [facility] Comment on above: Order Comment: Comme nt do urine C S if indicated by + UA Name Collection Type:: Clean-Voided Midstream Performed By: #### A DDONUAPLUS, CUU #### [address] RBC,Urine 1-2 Normal 0-4 [facility] Comment on above: Order Comment: Comme nt do urine C S if indicated by + UA Name Collection Type:: Clean-Voided Midstream Performed By: #### A DDONUAPLUS, CUU #### [address] Specificy [place],Urine 1.024 Normal 1.001-1.03 0 [facility] Comment on above: Order Comment: Comme nt do urine C S if indicated by + UA Name Collection Type:: Clean-Voided Midstream Performed By: #### A DDONUAPLUS, CUU #### [address] Squamous Epithelial Cell,Urine 5-9 High 0-2 [facility] Comment on above: Order Comment: Comme nt do urine C S if indicated by + UA Name Collection Type:: Clean-Voided Midstream Performed By: #### A DDONUAPLUS, CUU #### [address] Urobilinogen,Urine Normal Normal Normal [facility] Comment on above: Order Comment: Comme nt do urine C S if indicated by + UA Name Collection Type:: Clean-Voided Midstream Performed By: #### A DDONUAPLUS, CUU #### [place] [address] [place] WBC,Urine 10-19 High 0-4 [facility] Comment on above: Order Comment: Comme nt do urine C S if indicated by + UA Name Collection Type:: Clean-Voided Midstream Performed By: #### A DDONUAPLUS, CUU #### [address] ECG 12 lead ECGon 07-16-2024 ECG 12 lead ECG [facility] [place] [address] [place] [address] Electrocardiograph Report Signed Patient: Emliy Goode MR#: [id number] : 1950 Acct:[id number] Age/Sex: 73 / F ADM Date: 07/16/24 Loc: PS Room: [facility] Att[facility]: Simba Knapp Jr, DO Ordering [...] change was found Confirmed by Simba Morel ([id number]) on 07/16/2024 4:14:04 PM Referred By: Electronically Signed By: Simba Morel Transcribed By: MUS Signed By Simba Morel MD 07/16/24 1614 Normal [facility] Eosinophils Auto (Bld) [#/Vo l]Ordered By: Simba Knapp on 07-16-2024 Eosinophils (Bld) [#/Vol] Automated eosinophil count 0.0-0.45 [facility] Eosinophils/100 WBC Auto (Bl d)Ordered By: Simba Knapp on 07-16-2024 Eosinophils/100 WBC (Bld) Automated eosinophil % . [facility] Epithelial cells.squamous [# /area] in Urine sediment by Automated countOrdered By: Simba Knapp on 07-16-2024 Epithelial cells.squamous Auto (Urine sed) [#/Area] Epithelial cells.squamous [#/area] in Urine sediment by Automated count High 0-2 [facility] Erythrocyte distribution wid th Auto (RBC) [Ratio]Ordered By: Simba Knapp on 07-16-2024 Erythrocyte distribution width (RBC) [Ratio] Erythrocyte distribution width [Ratio] by Automated count 11.9-15.3 [facility] Erythrocytes [#/area] in Uri ne sediment by Automated countOrdered By: Simba Knapp on 07-16-2024 RBC Auto (Urine sed) [#/Area] Erythrocytes [#/area] in Urine sediment by Automated count 0-4 [facility] Glucose [Mass/volume] in Ser um or PlasmaOrdered By: Simba Knapp on 07-16-2024 Glucose [Mass/Vol] Glucose [Mass/volume ] in Serum or Plasma High 70-100 [facility] Comment on above: ADA recommended refe rence rangeRandom Glucose Reference Range is dependent on time and content of last meal. Glucose of more than 200 mg/dL in a nonstressed, ambulatory subject supports the diagnosis of Diabetes Mellitus. Glucose [Mass/volume] in Uri ne by Test stripOrdered By: Simba Knapp on 07-16-2024 Glucose Test strip (U) [Mass/Vol] Glucose [Mass/volume] in Urine by Test strip Normal [facility] Hematocrit Auto (Bld) [Volum e fraction]Ordered By: Simba Knapp on 07-16-2024 Hematocrit (Bld) [Volume fraction] Hematocrit [Volume Fraction] of Blood by Automated count 34.0-46.4 [facility] Hemoglobin Test strip Ql (U) Ordered By: Simba Knapp on 07-16-2024 Hemoglobin Ql (U) Hemoglobin [Presence ] in Urine by Test strip Negative [facility] Hemoglobin [Mass/volume] in BloodOrdered By: Simba Knapp 07-16-2024 Hemoglobin (Bld) [Mass/Vol] Hemoglobin [Mass/volume] in Blood Low 11.8-15.4 [facility] Hyaline casts [#/area] in Ur ine sediment by Automated countOrdered By: Simba Knapp 07-16-2024 Hyaline casts Auto (Urine sed) [#/Area] Hyaline casts [#/area] in Urine sediment by Automated count 0-8 [facility] Ketones Test strip Ql (U)Ord ered By: Simba Knapp on 07-16-2024 Ketones Ql (U) Ketones [Presence] i n Urine by Test strip Negative [facility] Leukocyte esterase [Presence ] in Urine by Test stripOrdered By: Simba Knapp on 07-16-2024 Leukocyte esterase Test strip Ql (U) Leukocyte esterase [Presence] in Urine by Test strip High Negative [facility] Leukocytes [#/area] in Urine sediment by Automated countOrdered By: Simba Knapp 07-16-2024 WBC Auto (Urine sed) [#/Area] Leukocytes [#/area] in Urine sediment by Automated count High 0-4 [facility] Leukocytes [#/volume] correc mary for nucleated erythrocytes in Blood by Automated counOrdered By: Simba Knapp on 07-16-2024 WBC corrected for nucl RBC Auto (Bld) [#/Vol] Leukocytes [#/volume] corrected for nucleated erythrocytes in Blood by Automated coun 3.8-11.6 [facility] Lymphocytes Auto (Bld) [#/Vo l]Ordered By: Simba Knapp on 07-16-2024 Lymphocytes (Bld) [#/Vol] Lymphocytes [#/volume] in Blood by Automated count 1.00-4.8 [facility] Lymphocytes/100 WBC Auto (Bl d)Ordered By: Simba Knapp on 07-16-2024 Lymphocytes/100 WBC (Bld) Lymphocytes/100 leukocytes in Blood by Automated count . [facility] MCH Auto (RBC) [Entitic mass ]Ordered By: Simba Knapp on 07-16-2024 MCH (RBC) [Entitic mass] MCH [Entitic mass] by Automated count 24.7-34.3 [facility] MCHC Auto (RBC) [Mass/Vol]Or dered By: Simba Knapp on 07-16-2024 MCHC (RBC) [Mass/Vol] MCHC [Mass/volume] by Automated count 32.0-35.0 [facility] MCV Auto (RBC) [Entitic vol] Ordered By: Simba Knapp on 07-16-2024 MCV (RBC) [Entitic vol] MCV [Entitic volume] by Automated count 80-100 [facility] Monocytes Auto (Bld) [#/Vol] Ordered By: Simba Knapp on 07-16-2024 Monocytes (Bld) [#/Vol] Automated blood monocyte count 0.0-0.8 [facility] Monocytes/100 WBC Auto (Bld) Ordered By: Simba Knapp on 07-16-2024 Monocytes/100 WBC (Bld) Automated monocyte % . [facility] Mucus [Presence] in Urine by AutomatedOrdered By: Simba Knapp on 07-16-2024 Mucus Auto Ql (U) Mucus [Presence] in Urine by Automated [facility] Neutrophils Auto (Bld) [#/Vo l]Ordered By: Simba Knapp on 07-16-2024 Neutrophils (Bld) [#/Vol] Neutrophils [#/volume] in Blood by Automated count 1.8-7.7 [facility] Neutrophils/100 WBC Auto (Bl d)Ordered By: Simba Knapp on 07-16-2024 Neutrophils/100 WBC (Bld) Automated neutrophil % . [facility] Nitrite Test strip Ql (U)Ord ered By: Simba Knapp on 07-16-2024 Nitrite Ql (U) Nitrite [Presence] i n Urine by Test strip Negative [facility] No Panel InformationOrdered By: Simba Knapp on 07-16-2024 Estimated GFR (CKD-EPI) > 60.0 mL/Min [facility] Creatinine Clearance (Chem N/A [facility] Nucleated erythrocytes [Pres ence] in Blood by Automated countOrdered By: Simba Knapp on 07-16-2024 Nucleated RBC Auto Ql (Bld) Nucleated erythrocytes [Presence] in Blood by Automated count 0-0.5 [facility] Platelet mean volume Auto (B ld) [Entitic vol]Ordered By: Simba Knapp on 07-16-2024 Platelet mean volume (Bld) [Entitic vol] Platelet mean volume [Entitic volume] in Blood by Automated count 6.3-10.7 [facility] Platelets Auto (Bld) [#/Vol] Ordered By: Simba Knapp on 07-16-2024 Platelets (Bld) [#/Vol] Platelets [#/volume] in Blood by Automated count 150-450 [facility] Potassium [Moles/volume] in Serum or PlasmaOrdered By: Simba Knapp on 07-16-2024 Potassium [Moles/Vol] Potassium [Moles/v olume] in Serum or Plasma 3.5-5.1 [facility] Protein Test strip (U) [Mass /Vol]Ordered By: Simba Knapp on 07-16-2024 Protein (U) [Mass/Vol] Protein [Mass/volume] in Urine by Test strip High Negative [facility] RBC Auto (Bld) [#/Vol]Ordere d By: Simba Knapp on 07-16-2024 RBC (Bld) [#/Vol] Erythrocytes [#/volu me] in Blood by Automated count 3.60-5.00 [facility] Serum or plasma anion gap de terminationOrdered By: Simba Knapp on 07-16-2024 Anion gap [Moles/Vol] Serum or plasma an ion gap determination 6.0-15.0 [facility] Sodium [Moles/volume] in Ser um or PlasmaOrdered By: Simba Knapp on 07-16-2024 Sodium [Moles/Vol] Sodium [Moles/volume ] in Serum or Plasma 136-145 [facility] Specific gravity Test strip (U) [Rel density]Ordered By: Simba Knapp on 07-16-2024 Specific gravity (U) [Rel density] Specific gravity of Urine by Test strip 1.001-1.03 0 [facility] Urea nitrogen [Mass/volume] in Serum or PlasmaOrdered By: Simba Knapp on 07-16-2024 Urea nitrogen [Mass/Vol] Urea nitrogen [Mass/volume] in Serum or Plasma 7-25 [facility] Urine Cultureon 07-16-2024 Bacteria identified Cx Nom (U) No Growth 2 Days PERFORMED BY: [place] [address] PATHOLOGIST [employer] LEAD YUSEF Conn [facility] Comment on above: Performed By: #### A PALOMA MERRILL #### [address] Urine cultureOrdered By: Santiago Knapp on 07-16-2024 Bacteria identified Cx Nom (U) Urine culture [facility] Urobilinogen Test strip (U) [Mass/Vol]Ordered By: Simba Knapp on 07-16-2024 Urobilinogen (U) [Mass/Vol] Urobilinogen [Mass/volume] in Urine by Test strip Normal [facility] WBC Auto (Bld) [#/Vol]Ordere d By: Simba Knapp on 07-16-2024 WBC (Bld) [#/Vol] Leukocytes [#/volume ] in Blood by Automated count 3.8-11.6 [facility] X-ray reportOrdered By: Satinder Chen on 07-16-2024 Study report [facility] [address] [address] XRay Report Signed Patient: Emily Goode MR#: [id number] : 1950 Acct:[id number] Age/Sex: 73 / F ADM Date: 5 Loc: ICXD Room: Type: REG CLI Attending Dr: Simba Knapp Jr DO Copies to: Simba Knapp Jr, DO~ Ordering Provider: Simba Knapp Jr, DO Date [...] Adan Chen M.D.07/16/2024 4:21 PM Dictation Location: [place] [address] Transcribed By: [facility] 07/16/24 162 Dictated By: Adan Chen DO 07/16/24 1619 Signed By: 07/16/24 162 [facility] XR bonelength lower extremit [facility] 07-16-2024 XR bonelength lower extremity [address] [address] XRay Report Signed Patient: Emily Goode MR#: [id number] : 1950 Acct:[id number] Age/Sex: 73 / F ADM Date: 07/16/24 [...] Adan Chen M.D.07/16/2024 4:21 PM Dictation Location: [place] [address] Transcribed By: [facility] 07/16/24 1621 Dictated By: Adan Chen DO 07/16/24 1619 Signed By: 07/16/24 1621 Normal [facility] pH Test strip (U)Ordered By: Simba Knapp on 07-16-2024 pH (U) pH of Urine by Test strip 5.0-9.0 [facility] Erythrocyte distribution wid th Auto (RBC) [Ratio]on 06-27-2024 Erythrocyte distribution width (RBC) [Ratio] Erythrocyte distribution width [Ratio] by Automated count 11.0-15.0 [facility] Estimated glomerular filtrat ion rate (GFR) non- Americanon 06-27-2024 GFR/1.73 sq M.predicted among non-blacks MDRD (S/P/Bld) [Vol rate/Area] Estimated glomerular filtration rate (GFR) non- Low >=60 mL/min/1.7 3m 2 [facility] Hematocrit Auto (Bld) [Volum e fraction]on 06-27-2024 Hematocrit (Bld) [Volume fraction] Hematocrit [Volume Fraction] of Blood by Automated count 36.0-48.0 [facility] Hemoglobin [Mass/volume] in Bloodon 06-27-2024 Hemoglobin (Bld) [Mass/Vol] Hemoglobin [Mass/volume] in Blood 12.0-16.0 [facility] Iron binding capacity [Mass/ volume] in Serum or Plasmaon 06-27-2024 Iron binding capacity [Mass/Vol] Iron binding capacity [Mass/volume] in Serum or Plasma 250.0-450. 0 [facility] Iron saturation [Mass Fracti on] in Serum or Plasmaon 06-27-2024 Iron saturation [Mass fraction] Iron saturation [Mass Fraction] in Serum or Plasma [facility] Laboratory - Chemistry and C hemistry - challengeon 06-27-2024 Albumin [Mass/Vol] 3.6 g/dL 3.4-5.0 [facility] Calcium [Mass/Vol] 9.6 mg/dL 8.5-10.1 [facility] Chloride [Moles/Vol] 101 mmol/L 98-107 [facility] CO2 [Moles/Vol] 28.1 mmol/L 21.0-32.0 [facility] Creatinine [Mass/Vol] 1.18 mg/dL High 0.55-1.02 [facility] Ferritin [Mass/Vol] 78.0 ng/mL 8.0-252.0 [facility] GFR/1.73 sq M.predicted MDRD (S/P/Bld) [Vol rate/Area] 55 mL/min/{1.73_m2} Low >=60 mL/min/1.7 3m 2 [facility] Glucose [Mass/Vol] 125 mg/dL High 74-106 [facility] Iron [Mass/Vol] 71.0 ug/dL 50.0-170.0 [facility] Magnesium [Mass/Vol] 1.9 mg/dL 1.8-2.4 [facility] Potassium [Moles/Vol] 4.4 mmol/L 3.5-5.1 [facility] Sodium [Moles/Vol] 139 mmol/L 136-145 [facility] Urate [Mass/Vol] 3.1 mg/dL 2.6-6.0 [facility] Urea nitrogen [Mass/Vol] 20.0 mg/dL High 7.0-18.0 [facility] Urea nitrogen/Creatinine [Mass ratio] 16.9 mg/mg [facility] Laboratory - Urinalysison Protein (U) [Mass/Vol] 29.4 mg/dL High <=11.9 [facility] Leukocytes [#/volume] correc mary for nucleated erythrocytes in Blood by Automated counon 06-27-2024 WBC corrected for nucl RBC Auto (Bld) [#/Vol] Leukocytes [#/volume] corrected for nucleated erythrocytes in Blood by Automated coun 4.0-11.0 [facility] MCH Auto (RBC) [Entitic mass ]on 06-27-2024 MCH (RBC) [Entitic mass] MCH [Entitic mass] by Automated count 26.7-34.0 [facility] MCHC Auto (RBC) [Mass/Vol]on 06-27-2024 MCHC (RBC) [Mass/Vol] MCHC [Mass/volume] by Automated count 29.9-35.2 [facility] MCV Auto (RBC) [Entitic vol] on 06-27-2024 MCV (RBC) [Entitic vol] MCV [Entitic volume] by Automated count 81.0-99.0 [facility] No Panel Informationon 06-27 25-Hydroxy Vitamin D Total 46.4 ng/mL [facility] Comment on above: <20 ng/mL Vit D defi cient20-<30 ng/mL Vit D [id number] ng/mL Vit D sufficient>100 ng/mL Potential Toxicity Parathyroid Hormone (Intact) 26 pg/mL 15-65 [facility] Comment on above: Performed at: [facility] [address] Director: Jamari Bray PhD, Phone: [phone] Phosphorus Level 3.7 mg/dL 2.6-4.7 [facility] Urine Random Creatinine 234.23 mg/dL 20.00-300. 00 [facility] Platelet mean volume Auto (B ld) [Entitic vol]on 06-27-2024 Platelet mean volume (Bld) [Entitic vol] Platelet mean volume [Entitic volume] in Blood by Automated count Low 9.5-13.5 [facility] Platelets Auto (Bld) [#/Vol] on 06-27-2024 Platelets (Bld) [#/Vol] Platelets [#/volume] in Blood by Automated count 150-450 [facility] RBC Auto (Bld) [#/Vol]on RBC (Bld) [#/Vol] Erythrocytes [#/volu me] in Blood by Automated count Low 4.20-5.40 [facility] Serum or plasma anion gap de terminationon 06-27-2024 Anion gap [Moles/Vol] Serum or plasma an ion gap determination [facility] Urine protein/creatinine rat ioon 06-27-2024 Protein/Creatinine (U) [Ratio] Urine protein/creatinine ratio [facility] No Panel Informationon 06-19 Type of biopsy: [...] taken Amount of lidocaine used: 2.0 cc [facility] Librato Type of biopsy: villafuerte ential Informed consent: [...] taken Amount of lidocaine used: 1.0 cc [facility] ALLERGENS W/COMP RFLX AREA 5 on 06-11-2024 CLASS DESCRIPTION Comment . [facility] Comment on above: Levels of Specific I gE Class Description of Class ----- < 0.10 0 Negative 0.10 - 0.31 0/I Equivocal/Low 0.32 - 0.55 I Low 0.56 - 1.40 II Moderate 1.41 - 3.90 III High 3.91 - 19.00 IV Very High 19.01 - 100.00 V Very High >100.00 Very High S337-MAP D PTERONYSSINUS <0.10 Class 0 kU/L [facility] H999-GNE D FARINAE <0.10 Class 0 kU/L [facility] W606-CBA CAT DANDER <0.10 Class 0 kU/L [facility] K810-CMT DOG DANDER <0.10 Class 0 kU/L [facility] K858-TOZ MOUSE URINE <0.10 Class 0 kU/L [facility] Comment on above: Performed at: [address] [id number] [employer] Molder: Re Salvador MD, Phone: [phone] G481-GNI BERMUDA GRASS <0.10 Class 0 kU/L [facility] C305-CEW ELLIE GRASS <0.10 Class 0 kU/L [facility] R676-ILF COCKROACH, BULGARIAN <0.10 Class 0 kU/L [facility] IMMUNOGLOBULIN E, TOTAL 146 [facility] N756-HLN PENICILLIUM CHRYSOGEN <0.10 Class 0 kU/L [facility] T586-KTT CLADOSPORIUM HERBARUM <0.10 Class 0 kU/L [facility] A918-NZB ASPERGILLUS FUMIGATUS <0.10 Class 0 kU/L [facility] F037-JTX ALTERNARIA ALTERNATA <0.10 Class 0 kU/L [facility] C770-VGW MAPLE/BOX ELDER <0.10 Class 0 kU/L [facility] H923-XFG COMMON SILVER BIRCH <0.10 Class 0 kU/L [facility] F733-URB CEDAR, MOUNTAIN <0.10 Class 0 kU/L [facility] L310-LFH OAK, WHITE <0.10 Class 0 kU/L [facility] U203-SRL ELM, TOGOLESE <0.10 Class 0 kU/L [facility] Y424-YHJ WALNUT <0.10 Class 0 kU/L [facility] U231-FJM MAPLE LEAF SYCAMORE <0.10 Class 0 kU/L [facility] Y471-NWK C[place] <0.10 Class 0 kU/L [facility] U969-QBU LEILANI, WHITE <0.10 Class 0 kU/L [facility] B744-NII PECAN, HICKORY <0.10 Class 0 kU/L [facility] L538-JSU WHITE MULBERRY <0.10 Class 0 kU/L [facility] X232-IZT RAGWEED, SHORT <0.10 Class 0 kU/L [facility] T083-PPO THISTLE, LEBANESE <0.10 Class 0 kU/L [facility] B287-UDT PIGWEED, COMMON <0.10 Class 0 kU/L [facility] O557-DGF SHEEP SORREL <0.10 Class 0 kU/L [facility] CT MAXILLOFACIAL WO IV CONTR Nick 05-21-2024 [...] report is generated using voice recognition reporting ([employer]). On occasion [employer] erroneously drops words from the report or replaces the spoken word with similar sounding words. Please call with any questions/concerns regarding this report.* Dictated and transcribed 05/21/24/dpd This report has been electronically signed and approved by the interpreting radiologist. Normal Not Available Comment on above: Order Comment: CT Si nus WO at [facility] please. FACIAL TRAUMA, FELL AND HIT LT SIDE OF FACE, SWELLING XR CERVICAL SPINE 2-3 VIEWSo n 03-16-2024 XR CERVICAL SPINE 2-3 VIEWS Interpreted By: Juan Jose Richter, STUDY: XR CERVICAL SPINE 2-3 VIEWS; ; 03/16/2024 10:38 am INDICATION: Signs/Symptoms:Assess cervical construct. ,Z98.1 Arthrodesis status COMPARISON: 10/13/2023 ACCESSION NUMBER(S): [id number] ORDERING CLINICIAN: MIREILLE ZURITA FINDINGS: Plate transfixes the cervical spine from C3 through C7. The plate is properly position and unchanged from prior examination. Prevertebral soft tissues are normal. 1-2 mm anterolisthesis C2 over C3, similar to prior examination. Remaining levels demonstrate normal alignment. Continued mild disc space height loss with anterior spurring C7-T1 unchanged. Lung apices are clear. TOY MAKER shunt projected along the right side of the neck. IMPRESSION: Stable appearance of the cervical spine. No acute findings or radiographic change since prior examination 10/13/2023. MACRO: None Signed by: Juan Jose Richter 03/20/2024 11:46 AM Dictation workstation: [id number] [facility] MR lumbar spine wo [facility] MR lumbar spine wo [facility] [place] [address] [place] [address] MRI Report Signed Patient: Emily Goode MR#: [id number] : 1950 Acct:[id number] Age/Sex: 73 / F ADM Date: 03/08/24 Loc: [facility] Room: Type: [facility] Attending Dr: Rico Purcell MD Copies to: Rico Purcell MD Ordering Provider: Rico Purcell MD Date of Service: 03/08/24 MR/MR [...] above. Impression dictated by: Olayinka Enamorado Jr., D.OKiersten03/08/2024 2:37 PM Dictation Location: [place] [address] Transcribed By: [facility] 03/08/24 1437 Dictated By: Olayinka Enamorado Jr, DO 03/08/24 1429 Signed By: 03/08/24 1437 Normal [facility] XR pre/post mri xrayon 03-08 XR pre/post mri xray [facility] Main [address] [address] XRay Report Signed Patient: Emily Goode MR#: [id number] : 1950 Acct:[id number] Age/Sex: 73 / F ADM Date: 03/08/24 Loc: [facility] Room: Type: [facility] Attending Dr: Rico Purcell MD Copies to: Rico Purcell MD Ordering Provider: Rico Purcell MD Date of Service: 03/08/24 XR/XR [...] scoliosis best evaluated by MRI. The patient's TOY MAKER shunt tip projecting over the sacrum. Coil embolization right upper quadrant. XR/XR pre/post mri xray IMPRESSION: No significant change in shunt setting compared to the prior study performed earlier today. Lumbar spine demonstrates multilevel degenerative disease best evaluated by the MRI. Impression dictated by: Olayinka Enamorado Jr., DKierstenOKiersten03/08/2024 2:41 PM Dictation Location: [place] [address] Transcribed By: [facility] 03/08/24 1441 Dictated By: Olayinka Enamorado Jr, DO 03/08/24 1437 Signed By: 03/08/24 1441 Normal [facility] Pathology Request for Lab Co rpon 03-06-2024 Pathology Request for Lab [place] Normal [facility] Comment on above: Order Comment: PATHO LOGY GI SPECIMEN Result Comment: See report. Scanned copy available in EMR. PERFORMED BY: [place] [address] PATHOLOGIST [employer] LEAD JAYSON RON M.D. Performed By: #### P ATH TO [facility] #### [place] [id number] [facility] XR Knee - right 1 or 2 Views on 02-13-2024 Imaging Result: X-rays AP and lateral of right knee showed severe Valgus deformity with opxa-hz-lymn articulation to the lateral joint line. There is flattening of the articular surfaces laterally to the tibia plateau and lateral femoral condyle. There is marginal osteophytic formation and subchondral sclerosis noted laterally and the patellofemoral joint. There is no evidence of fracture or dislocation. Bony structures viewed showed appropriate ossification. [facility] Healthcare [facility] Healthcare Radiology Study observation (narrative) [facility] Albumin [Mass/volume] in Ser um or Plasma by Bromocresol green (BCG) dye binding methoOrdered By: Gino Barbosa on 01-19-2024 Albumin BCG dye [Mass/Vol] 4.0 g/dL 3.5-5.7 [facility] Bacteria [Presence] in Urine by AutomatedOrdered By: Gino Barbosa on 01-19-2024 Bacteria Auto Ql (U) 1+ [HPF] High None Seen [facility] Bilirubin Test strip Ql (U)O rdered By: Gino Barbosa on 01-19-2024 Bilirubin Ql (U) Negative Negative [facility] Calcium [Mass/volume] in Ser um or PlasmaOrdered By: Gino Barbosa on 01-19-2024 Calcium [Mass/Vol] 9.4 mg/dL Normal 8.6-10.3 [facility] Comment on above: Performed By: #### M G, [id number], LETICIA, CUU, ADDONUAPLUS, FE and TIBC, PROCRERAT, RENAL, CBCNO ####[facility] [id number] [place] [id number] [facility] Carbon dioxide, total [Moles /volume] in Serum or PlasmaOrdered By: Gino Barbosa on 01-19-2024 CO2 [Moles/Vol] 30.4 mmol/L Normal 21.0-31.0 [facility] Comment on above: Performed By: #### M G, [id number], LETICIA, CUU, ADDONUAPLUS, FE and TIBC, PROCRERAT, RENAL, CBCNO ####[facility] [id number] [place] [address] [place] Chloride [Moles/volume] in S madhav or PlasmaOrdered By: Gino Barbosa on 01-19-2024 Chloride [Moles/Vol] 99 mmol/L Normal 98-107 [facility] Comment on above: Performed By: #### M G, [id number], LETICIA, CUU, ADDONUAPLUS, FE and TIBC, PROCRERAT, RENAL, CBCNO ####[facility] Color of Urine by AutoOrdere d By: Gino Barbosa on 01-19-2024 Color (U) Light-yellow Normal Yellow [facility] Comment on above: Order Comment: Name Collection Type:: Clean-Voided Midstream Performed By: #### M G, [id number], LETICIA, CUU, ADDONUAPLUS, FE and TIBC, PROCRERAT, RENAL, CBCNO #### [facility] [address] Creatinine [Mass/volume] in Serum or PlasmaOrdered By: Gino Barbosa on 01-19-2024 Creatinine [Mass/Vol] 1.02 mg/dL Normal 0.60-1.20 [facility] Comment on above: Performed By: #### M G, [id number], LETICIA, CUU, ADDONUAPLUS, FE and TIBC, PROCRERAT, RENAL, CBCNO ####[place] [address] [address] Creatinine [Mass/volume] in UrineOrdered By: Gino Barboas on 01-19-2024 Creatinine (U) [Mass/Vol] 63.00 mg/dL [facility] Comment on above: No reference range e stablished Dipstick and Microscopicon 0 01-19-2024 Bacteria,Urine 1+ High None Seen [facility] Comment on above: Order Comment: Name Collection Type:: Clean-Voided Midstream Performed By: #### M G, [id number], LETICIA, CUU, ADDONUAPLUS, FE and TIBC, PROCRERAT, RENAL, CBCNO #### [facility] [address] [place] [address] [place] Bilirubin,Urine Negative Normal Negative [facility] Comment on above: Order Comment: Name Collection Type:: Clean-Voided Midstream Performed By: #### M G, [id number], LETICIA, CUU, ADDONUAPLUS, FE and TIBC, PROCRERAT, RENAL, CBCNO #### [address] Glucose Ql (U) Normal Normal Normal [facility] Comment on above: Order Comment: Name Collection Type:: Clean-Voided Midstream Performed By: #### M G, [id number], LETICIA, CUU, ADDONUAPLUS, FE and TIBC, PROCRERAT, RENAL, CBCNO #### [address] Hyaline Casts,Urine None Normal 0-8 [facility] Comment on above: Order Comment: Name Collection Type:: Clean-Voided Midstream Result Comment: PERF ORMED BY: [place] [address] PATHOLOGIST [employer] LEAD JAYSON RON M.D. Performed By: #### M G, [id number], LETICIA, CUU, ADDONUAPLUS, FE and TIBC, PROCRERAT, RENAL, CBCNO #### [address] Nitrite,Urine Negative Normal Negative [facility] Comment on above: Order Comment: Name Collection Type:: Clean-Voided Midstream Performed By: #### M G, [id number], LETICIA, CUU, ADDONUAPLUS, FE and TIBC, PROCRERAT, RENAL, CBCNO #### [place] [address] [place] Occult Blood,Urine Negative Normal Negative [facility] Comment on above: Order Comment: Name Collection Type:: Clean-Voided Midstream Performed By: #### M G, [id number], LETICIA, CUU, ADDONUAPLUS, FE and TIBC, PROCRERAT, RENAL, CBCNO #### [address] Protein,Urine Negative Normal Negative [facility] Comment on above: Order Comment: Name Collection Type:: Clean-Voided Midstream Performed By: #### M G, [id number], LETICIA, CUU, ADDONUAPLUS, FE and TIBC, PROCRERAT, RENAL, CBCNO #### [address] RBC,Urine 1-2 Normal 0-4 [facility] Comment on above: Order Comment: Name Collection Type:: Clean-Voided Midstream Performed By: #### M G, [id number], LETICIA, CUU, ADDONUAPLUS, FE and TIBC, PROCRERAT, RENAL, CBCNO #### [address] Specificy [place],Urine 1.018 Normal 1.001-1.03 0 [facility] Comment on above: Order Comment: Name Collection Type:: Clean-Voided Midstream Performed By: #### M G, [id number], LETICIA, CUU, ADDONUAPLUS, FE and TIBC, PROCRERAT, RENAL, CBCNO #### [address] Squamous Epithelial Cell,Urine 1-2 Normal 0-2 [facility] Comment on above: Order Comment: Name Collection Type:: Clean-Voided Midstream Performed By: #### M G, [id number], LETICIA, CUU, ADDONUAPLUS, FE and TIBC, PROCRERAT, RENAL, CBCNO #### [address] Urobilinogen,Urine Normal Normal Normal [facility] Comment on above: Order Comment: Name Collection Type:: Clean-Voided Midstream Performed By: #### M G, [id number], LETICIA, CUU, ADDONUAPLUS, FE and TIBC, PROCRERAT, RENAL, CBCNO #### [address] WBC,Urine 5-9 High 0-4 [facility] Comment on above: Order Comment: Name Collection Type:: Clean-Voided Midstream Performed By: #### M G, [id number], LETICIA, CUU, ADDONUAPLUS, FE and TIBC, PROCRERAT, RENAL, CBCNO #### [facility] [address] Epithelial cells.squamous [# /area] in Urine sediment by Automated countOrdered By: Gino Chelsey on 01-19-2024 Epithelial cells.squamous Auto (Urine sed) [#/Area] 1-2 [HPF] 0-2 [facility] Erythrocyte distribution wid th [Ratio] by Automated countOrdered By: Gino Chelsey on 01-19-2024 Erythrocyte distribution width (RBC) [Ratio] 13.0 % Normal 11.9-15.3 [facility] Comment on above: Performed By: #### M G, [id number], LETICIA, CUU, ADDONUAPLUS, FE and TIBC, PROCRERAT, RENAL, CBCNO ####[facility] Erythrocytes [#/area] in Uri ne sediment by Automated countOrdered By: Gino Chelsey on 01-19-2024 RBC Auto (Urine sed) [#/Area] 1-2 [HPF] 0-4 [facility] Erythrocytes [#/volume] in B lood by Automated countOrdered By: Gino Chelsey on 01-19-2024 RBC (Bld) [#/Vol] 3.69 10*6/uL Normal 3.60-5.00 [facility] Comment on above: Performed By: #### M G, [id number], LETICIA, CUU, ADDONUAPLUS, FE and TIBC, PROCRERAT, RENAL, CBCNO ####[facility] [place] [address] Ferritin [Mass/volume] in Se rum or PlasmaOrdered By: Gino Chelsey on 01-19-2024 Ferritin [Mass/Vol] 42.5 ng/mL Normal 11.0-306.8 [facility] Comment on above: Performed By: #### M G, [id number], LETICIA, CUU, ADDONUAPLUS, FE and TIBC, PROCRERAT, RENAL, CBCNO ####[facility] Glucose [Mass/volume] in Ser um or PlasmaOrdered By: Gino Barbosa on 01-19-2024 Glucose [Mass/Vol] 86 mg/dL Normal 70-100 [facility] Comment on above: ADA recommended refe rence rangeRandom Glucose Reference Range is dependent on time and content of last meal. Glucose of more than 200 mg/dL in a nonstressed, ambulatory subject supports the diagnosis of Diabetes Mellitus. Result Comment: [place] Glucose Reference Range is dependent on time and content of last meal. Glucose of more than 200 mg/dL in a nonstressed, ambulatory subject supports the diagnosis of Diabetes Mellitus. ADA recommended reference range Performed By: #### M G, [id number], LETICIA, CUU, ADDONUAPLUS, FE and TIBC, PROCRERAT, RENAL, CBCNO ####[facility] [address] [place] [address] [facility] Glucose [Mass/volume] in Uri ne by Test stripOrdered By: Gino Barbosa on 01-19-2024 Glucose Test strip (U) [Mass/Vol] Normal mg/dL Normal [facility] Hematocrit [Volume Fraction] of Blood by Automated countOrdered By: Gino Barbosa on 01-19-2024 Hematocrit (Bld) [Volume fraction] 33.5 % Low 34.0-46.4 [facility] Comment on above: Performed By: #### M G, [id number], LETICIA, CUU, ADDONUAPLUS, FE and TIBC, PROCRERAT, RENAL, CBCNO ####[facility] [id number] [place] [address] [facility] Hemoglobin Test strip Ql (U) Ordered By: Gino Brabosa on 01-19-2024 Hemoglobin Ql (U) Negative Negative [facility] Hemoglobin [Mass/volume] in BloodOrdered By: Gino Barbosa on 01-19-2024 Hemoglobin (Bld) [Mass/Vol] 11.2 g/dL Low 11.8-15.4 [facility] Comment on above: Performed By: #### M G, [id number], LETICIA, CUU, ADDONUAPLUS, FE and TIBC, PROCRERAT, RENAL, CBCNO ####[address] Hemogram CBC Without Diffon 01-19-2024 Mean Corpuscular HGB Conc 33.6 g/dL Normal 32.0-35.0 [facility] Comment on above: Performed By: #### M G, [id number], LETICIA, CUU, ADDONUAPLUS, FE and TIBC, PROCRERAT, RENAL, CBCNO ####[address] WBC (Bld) [#/Vol] 9.0 10*3/uL Normal 3.8-11.6 [facility] Comment on above: Performed By: #### M G, [id number], LETICIA, CUU, ADDONUAPLUS, FE and TIBC, PROCRERAT, RENAL, CBCNO ####[address] Hyaline casts [#/area] in Ur ine sediment by Automated countOrdered By: Gino Babrosa on 01-19-2024 Hyaline casts Auto (Urine sed) [#/Area] None [LPF] 0-8 [facility] Iron [Mass/volume] in Serum or PlasmaOrdered By: Gino Barbosa on 01-19-2024 Iron [Mass/Vol] 63 ug/dL Normal 50-212 [facility] Comment on above: Performed By: #### M G, [id number], LETICIA, CUU, ADDONUAPLUS, FE and TIBC, PROCRERAT, RENAL, CBCNO ####[address] Iron and TIBC Profileon 01-07 % Iron Saturation 19.5 % Low 20-50 [facility] Comment on above: Performed By: #### M G, [id number], LETICIA, CUU, ADDONUAPLUS, FE and TIBC, PROCRERAT, RENAL, CBCNO ####[address] Total Iron Binding Capacity 323 ug/dL Normal 255-450 [facility] Comment on above: Performed By: #### M G, [id number], LETICIA, CUU, ADDONUAPLUS, FE and TIBC, PROCRERAT, RENAL, CBCNO ####[facility] [id number] Iron binding capacity [Mass/ volume] in Serum or PlasmaOrdered By: Gino Barbosa on 01-19-2024 Iron binding capacity [Mass/Vol] 323 ug/dL 255-450 [facility] Iron saturation [Mass Fracti on] in Serum or PlasmaOrdered By: Gino Barbosa on 01-19-2024 Iron saturation [Mass fraction] 19.5 % Low 20-50 [facility] Ketones [Presence] in Urine by Test stripOrdered By: Gino Barbosa on 01-19-2024 Ketones Ql (U) Negative Normal Negative [facility] Comment on above: Order Comment: Name Collection Type:: Clean-Voided Midstream Performed By: #### M G, [id number], LETICIA, CUU, ADDONUAPLUS, FE and TIBC, PROCRERAT, RENAL, CBCNO #### [facility] [address] [place] [address] [place] Leukocyte esterase [Presence ] in Urine by Test stripOrdered By: Gino Barbosa on 01-19-2024 Leukocyte esterase Test strip Ql (U) 2+ High Negative [facility] Comment on above: Order Comment: Name Collection Type:: Clean-Voided Midstream Performed By: #### M G, [id number], LETICIA, CUU, ADDONUAPLUS, FE and TIBC, PROCRERAT, RENAL, CBCNO #### [facility] [address] [place] [address] [place] Leukocytes [#/area] in Urine sediment by Automated countOrdered By: Gino Barbosa on 01-19-2024 WBC Auto (Urine sed) [#/Area] 5-9 [HPF] High 0-4 [facility] Leukocytes [#/volume] correc mary for nucleated erythrocytes in Blood by Automated counOrdered By: Gino Barbosa on 01-19-2024 WBC corrected for nucl RBC Auto (Bld) [#/Vol] 9.0 10*3/uL 3.8-11.6 [facility] MCH [Entitic mass] by Automa mary countOrdered By: Gino Barbosa on 01-19-2024 MCH (RBC) [Entitic mass] 30.5 pg Normal 24.7-34.3 [facility] Comment on above: Performed By: #### M G, [id number], LETICIA, CUU, ADDONUAPLUS, FE and TIBC, PROCRERAT, RENAL, CBCNO ####[address] MCHC Auto (RBC) [Mass/Vol]Or dered By: Gino Barbosa on 01-19-2024 MCHC (RBC) [Mass/Vol] 33.6 g/dL 32.0-35.0 [facility] MCV [Entitic volume] by Auto mated countOrdered By: Gino Barbosa on 01-19-2024 MCV (RBC) [Entitic vol] 90.7 fL Normal 80-100 [facility] Comment on above: Performed By: #### M G, [id number], LETICIA, CUU, ADDONUAPLUS, FE and TIBC, PROCRERAT, RENAL, CBCNO ####[address] Magnesium [Mass/volume] in S madhav or PlasmaOrdered By: Gino Barbosa on 01-19-2024 Magnesium [Mass/Vol] 1.9 mg/dL Normal 1.9-2.7 [facility] Comment on above: Performed By: #### M G, [id number], LETICIA, CUU, ADDONUAPLUS, FE and TIBC, PROCRERAT, RENAL, CBCNO ####[address] Nitrite Test strip Ql (U)Ord ered By: Gino Barbosa on 01-19-2024 Nitrite Ql (U) Negative Negative [facility] No Panel InformationOrdered By: Gino Barbosa on 01-19-2024 Estimated GFR (CKD-EPI) 58.816 mL/Min [facility] Creatinine Clearance (Chem N/A [facility] Phosphate [Mass/volume] in S madhav or PlasmaOrdered By: Gino Barbosa on 01-19-2024 Phosphate [Mass/Vol] 4.1 mg/dL Normal 2.5-4.5 [facility] Comment on above: Performed By: #### M G, [id number], LETICIA, CUU, ADDONUAPLUS, FE and TIBC, PROCRERAT, RENAL, CBCNO ####[place] [address] [place] [id number] [facility] Platelet mean volume [Entiti c volume] in Blood by Automated countOrdered By: Gino Barbosa on 01-19-2024 Platelet mean volume (Bld) [Entitic vol] 7.8 fL Normal 6.3-10.7 [facility] Comment on above: Result Comment: PERF ORMED BY: [facility] [address] [place] [id number] PATHOLOGIST [employer] LEAD JAYSON RON M.D. Performed By: #### M G, [id number], LETICIA, CUU, ADDONUAPLUS, FE and TIBC, PROCRERAT, RENAL, CBCNO ####[place] [id number] [facility] Platelets [#/volume] in Bloo d by Automated countOrdered By: Gino Barbosa on 01-19-2024 Platelets (Bld) [#/Vol] 342 10*3/uL Normal 150-450 [facility] Comment on above: Performed By: #### M G, [id number], LETICIA, CUU, ADDONUAPLUS, FE and TIBC, PROCRERAT, RENAL, CBCNO ####[place] [address] [place] [id number] [facility] Potassium [Moles/volume] in Serum or PlasmaOrdered By: Gino Barbosa on 01-19-2024 Potassium [Moles/Vol] 3.8 mmol/L Normal 3.5-5.1 [facility] Comment on above: Performed By: #### M G, [id number], LETICIA, CUU, ADDONUAPLUS, FE and TIBC, PROCRERAT, RENAL, CBCNO ####[place] [address] [place] [id number] [facility] Protein Creat Ratio Ur Rando mon 01-19-2024 Creatinine, Urine (Random) 63.00 mg/dL Normal [facility] Comment on above: Result Comment: No r eference range established Performed By: #### M G, [id number], LETICIA, CUU, ADDONUAPLUS, FE and TIBC, PROCRERAT, RENAL, CBCNO ####[place] [id number] [facility] Urine Protein/Creatinine Ratio 111 mg/g{Cre} Normal 0-200 [facility] Comment on above: Result Comment: PERF ORMED BY: [facility] [address] [place] [address] PATHOLOGIST [employer] LEAD JAYSON RON M.D. Performed By: #### M G, [id number], LETICIA, CUU, ADDONUAPLUS, FE and TIBC, PROCRERAT, RENAL, CBCNO ####[place] [id number] [facility] Protein Test strip (U) [Mass /Vol]Ordered By: Gino Barbosa on 01-19-2024 Protein (U) [Mass/Vol] Negative Negative [facility] Protein [Mass/volume] in Uri neOrdered By: Gino Barbosa on 01-19-2024 Protein (U) [Mass/Vol] 7 mg/dL Normal 0-9 [facility] Comment on above: Performed By: #### M G, [id number], LETICIA, CUU, ADDONUAPLUS, FE and TIBC, PROCRERAT, RENAL, CBCNO ####[place] [id number] [facility] Renal Function Panelon 01-18 Albumin [Mass/Vol] 4.0 g/dL Normal 3.5-5.7 [facility] Comment on above: Performed By: #### M G, [id number], LETICIA, CUU, ADDONUAPLUS, FE and TIBC, PROCRERAT, RENAL, CBCNO ####[place] [address] [place] [id number] [facility] GFR/1.73 sq M.predicted MDRD (S/P/Bld) [Vol rate/Area] 58.816 mL/min/{1.73_m2} Normal [facility] Comment on above: Performed By: #### M G, [id number], LETICIA, CUU, ADDONUAPLUS, FE and TIBC, PROCRERAT, RENAL, CBCNO ####[place] [address] [place] [id number] [facility] Serum or plasma anion gap de terminationOrdered By: Gino Barbosa on 01-19-2024 Anion gap [Moles/Vol] 9.4 mmol/L Normal 6.0-15.0 [facility] Comment on above: Performed By: #### M G, [id number], LETICIA, CUU, ADDONUAPLUS, FE and TIBC, PROCRERAT, RENAL, CBCNO ####[place] [id number] [facility] Sodium [Moles/volume] in Ser um or PlasmaOrdered By: Gino Barbosa on 01-19-2024 Sodium [Moles/Vol] 135 mmol/L Low 136-145 [facility] Comment on above: Performed By: #### M G, [id number], LETICIA, CUU, ADDONUAPLUS, FE and TIBC, PROCRERAT, RENAL, CBCNO ####[place] [id number] [facility] Specific gravity Test strip (U) [Rel density]Ordered By: Gino Barbosa on 01-19-2024 Specific gravity (U) [Rel density] 1.018 1.001-1.03 0 [facility] Transferrin [Mass/volume] in Serum or PlasmaOrdered By: Gino Chelsey on 01-19-2024 Transferrin [Mass/Vol] 231 mg/dL Normal 203-362 [facility] Comment on above: Performed By: #### M G, [id number], LETICIA, CUU, ADDONUAPLUS, FE and TIBC, PROCRERAT, RENAL, CBCNO ####[place] [address] Urea nitrogen [Mass/volume] in Serum or PlasmaOrdered By: Gino Barbosa on 01-19-2024 Urea nitrogen [Mass/Vol] 25 mg/dL Normal 7-25 [facility] Comment on above: Performed By: #### M G, [id number], LETICIA, CUU, ADDONUAPLUS, FE and TIBC, PROCRERAT, RENAL, CBCNO ####[facility] [id number] [place] [id number] [facility] Urine Cultureon 01-19-2024 Bacteria identified Cx Nom (U) 20,000 colonies/ml mixed bacterial skin contaminants 2 Days PERFORMED BY: [facility] [address] [place] [address] PATHOLOGIST [employer] LEAD JAYSON RON M.D. Normal [facility] Comment on above: Performed By: #### M G, [id number], LETICIA, CUU, ADDONUAPLUS, FE and TIBC, PROCRERAT, RENAL, CBCNO ####[facility] [id number] Urine appearanceOrdered By: Gino Barbosa on 01-19-2024 Appearance (U) Clear Normal Clear [facility] Comment on above: Order Comment: Name Collection Type:: Clean-Voided Midstream Performed By: #### M G, [id number], LETICIA, CUU, ADDONUAPLUS, FE and TIBC, PROCRERAT, RENAL, CBCNO #### [facility] [address] Urine culture routineOrdered By: Gino Barbosa on 01-19-2024 Bacteria identified Cx Nom (U) 2 Days [facility] Urine protein/creatinine rat ioOrdered By: Gino Barbosa on 01-19-2024 Protein/Creatinine (U) [Ratio] 111 mg/g{Cre} 0-200 [facility] Urobilinogen Test strip (U) [Mass/Vol]Ordered By: Gino Babrosa on 01-19-2024 Urobilinogen (U) [Mass/Vol] Normal mg/dL Normal [facility] Vitamin D 25 Hydroxy Totalon 01-19-2024 Vitamin D 25 Hydroxy Total 31.0 ng/mL Normal 30-100 [facility] Comment on above: Result Comment: [place] MIN D STATUS 25([place])VITAMIN D RANGE (ng/mL) Deficient <20 Insufficient 20 to <30 Sufficient 30 to 100 Reference: Manish Merino Bischoff-Ferrari HA et al. Evaluation,treatment, and prevention of vitamin D deficiency; an Endocrine Society clinical practice guideline. JCEM. 2010; 96(7):1911-30. PERFORMED BY: [facility] [address] [place] [id number] PATHOLOGIST [employer] LEAD JAYSON RON M.D. Performed By: #### M G, [id number], LETICIA, CUU, ADDONUAPLUS, FE and TIBC, PROCRERAT, RENAL, CBCNO ####[facility] [address] [place] [address] [facility] Vitamin D+Metabolites [Mass/ volume] in Serum or PlasmaOrdered By: Gino Barbosa on 01-19-2024 Vitamin D+Metabolites [Mass/Vol] 31.0 ng/mL 30-100 [facility] Comment on above: VITAMIN D STATUS 25( [place])VITAMIN D RANGE (ng/mL) Deficient <20 Insufficient 20 to <30Sufficient 30 to 100Reference: Manish Merino, Gianni HOYT et al. Evaluation,treatment, and prevention of vitamin D deficiency; an Endocrine Society clinical practice guideline. JCEM. 2010; 96(7):1911-30. pH of Urine by Test stripOrd ered By: Gino Barbosa on 01-19-2024 pH (U) 6.0 [pH] Normal 5.0-9.0 [facility] Comment on above: Order Comment: Name Collection Type:: Clean-Voided Midstream Performed By: #### M G, [id number], LETICIA, CUU, ADDONUAPLUS, FE and TIBC, PROCRERAT, RENAL, CBCNO #### [facility] [address] [place] [address] [facility] MM screening mammo BI w/CADo n 12-08-2023 MM screening mammo BI w/CAD [facility] [place] [address] [place], [place] [id number] Mammography Report Signed Patient: Emily Goode MR#: [id number] : 1950 Acct:[id number] Age/Sex: 73 / F ADM Date: 12/08/23 Loc: [place] Room: Type: [facility] Attending Dr: Rico Purcell MD Copies to: Rico Purcell MD Ordering Provider: Rico Purcell MD Date of Service: 12/08/23 MM/MM [...] Adan Chen M.D.12/08/2023 3:58 PM Dictation Location: [facility] Transcribed By: [facility] 12/08/23 1558 Dictated By: Adan Chen DO 12/08/23 1527 Signed By: 12/08/23 1558 Normal [facility] XR CERVICAL SPINE 2-3 VIEWSo n 10-13-2023 XR CERVICAL SPINE 2-3 VIEWS Interpreted By: Raul Peter, STUDY: XR CERVICAL SPINE 2-3 VIEWS; ; 10/13/2023 2:32 pm INDICATION: Signs/Symptoms:S/P anterior cervical fusion. COMPARISON: 06/09/2023 ACCESSION NUMBER(S): [id number] ORDERING CLINICIAN: MIREILLE ZURITA FINDINGS: C-spine, two views Anterior spinal fusion extending from C3 through C7. There is mild disc space narrowing osteophytosis at C7-T1. No fracture seen. No spondylolisthesis. IMPRESSION: Anterior spinal fusion C3-C7 with intact hardware. No malalignment MACRO: None Signed by: Raul Peter 10/14/2023 6:10 PM Dictation workstation: [id number] [facility] Comment on above: Order Comment: Uprig ht AP/Lat XR Cervical spine 2 or 3 Vie wson 06-10-2023 No hardware failure at the C3-C7 anterior fusion. Mild spondylosis at C7-T1 MACRO: None Signed by: Raul Peter 06/10/2023 6:21 PM Dictation workstation: [id number] Interpreted By: Raul Hernandes, STUDY: XR CERVICAL SPINE 2-3 VIEWS; ; 06/09/2023 2:35 pm INDICATION: Signs/Symptoms:To assess the fusion. COMPARISON: 05/05/2023 ACCESSION NUMBER(S): [id number] ORDERING CLINICIAN: MIREILLE ZURITA FINDINGS: C-spine, two [...] assess the fusion. COMPARISON: 05/05/2023 ACCESSION NUMBER(S): [id number] ORDERING CLINICIAN: MIREILLE ZURITA FINDINGS: C-spine, two views Anterior fusion C3 through C7. The hardware is intact. The prevertebral soft tissues are within normal limits. There is no fracture or spondylolisthesis. There is mild spondylotic change at C7-T1 IMPRESSION: No hardware failure at the C3-C7 anterior fusion. Mild spondylosis at C7-T1 MACRO: None Signed by: Raul Peter 06/10/2023 6:21 PM Dictation workstation: [id number] [facility] Work Phone: XR Cervical spine 2 or 3 Vie wsOrdered By: Raul Peter on 06-10-2023 [facility] Work Phone: XR CERVICAL SPINE 2-3 VIEWSo n 06-09-2023 XR CERVICAL SPINE 2-3 VIEWS Interpreted By: Raul Peter, STUDY: XR CERVICAL SPINE 2-3 VIEWS; ; 06/09/2023 2:35 pm INDICATION: Signs/Symptoms:To assess the fusion. COMPARISON: 05/05/2023 ACCESSION NUMBER(S): [id number] ORDERING CLINICIAN: MIREILLE ZURITA FINDINGS: C-spine, two views Anterior fusion C3 through C7. The hardware is intact. The prevertebral soft tissues are within normal limits. There is no fracture or spondylolisthesis. There is mild spondylotic change at C7-T1 IMPRESSION: No hardware failure at the C3-C7 anterior fusion. Mild spondylosis at C7-T1 MACRO: None Signed by: Raul Peter 06/10/2023 6:21 PM Dictation workstation: [id number] [facility] XR Cervical spine 2 or 3 Vie wson 06-09-2023 Radiology Study observation (narrative) [facility] Work Phone: XR CERVICAL SPINE 2-3 VIEWSo n 05-05-2023 XR CERVICAL SPINE 2-3 VIEWS Interpreted By: Juan Jose Sen, STUDY: XR CERVICAL SPINE 2-3 VIEWS INDICATION: Signs/Symptoms:s/p ACDF C3 - 7 on 03/21/2023. XRAY ON OR AFTER MAY 05, 2023, for appointment 05/12/2023. COMPARISON: March 22 ACCESSION NUMBER(S): [id number] ORDERING CLINICIAN: SANIYA FAUSTIN FINDINGS: Anterior cervical fusion C3 through C7 with plate and disc space replacement. Alignment normal. Prevertebral soft tissues improving. IMPRESSION: Satisfactory appearance C3 through C7 anterior fusion. Signed by: Juan Jose Sen 05/07/2023 7:02 AM Dictation workstation: [id number] [facility] ECG 12 LeadOrdered By: Camilo Parr on 03-28-2023 Atrial Rate 63 BPM [facility] Work Phone: [phone] P [place] 51 degrees [facility] Work Phone: [phone] P Offset 183 ms [facility] Work Phone: [phone] P Onset 128 ms [facility] Work Phone: [phone] DC Interval 192 ms [facility] Work Phone: [phone] Q Onset 224 ms [facility] Work Phone: [phone] QRS Count 10 beats [facility] Work Phone: [phone] QRS Duration 84 ms [facility] Work Phone: [phone] QT Interval 406 ms [facility] Work Phone: [phone] QTC Calculation(Bazett) 415 [facility] Work Phone: [phone] QTC Fredericia 412 ms [facility] Work Phone: [phone] R [place] 52 degrees [facility] Work Phone: [phone] T [place] 44 degrees [facility] Work Phone: [phone] T Offset 427 ms [facility] Work Phone: [phone] Ventricular Rate 63 BPM [facility] Work Phone: [phone] [facility] Work Phone: [phone] ECG 12 Leadon 03-28-2023 Normal sinus rhythm Normal ECG No previous ECGs available Confirmed by Camilo Parr ([id number]) on 03/28/2023 9:17:27 PM MUSE Camilo Parr MD - Normal sinus rhythm Normal ECG No previous ECGs available Confirmed by Camilo Parr ([id number]) on 03/28/2023 9:17:27 PM [facility] Work Phone: Basic metabolic 2000 panelon 11-15-2023 Anion gap [Moles/Vol] 13 mmol/L 10 - 2 0 mmol/L [facility] Calcium [Mass/Vol] 8.7 mg/dL 8.6 - 10. 3 mg/dL [facility] Chloride [Moles/Vol] 101 mmol/L 98 - 10 7 mmol/L [facility] CO2 [Moles/Vol] 26 mmol/L 21 - 32 mmol/L [facility] Creatinine [Mass/Vol] 0.90 mg/dL 0.50 - 1.05 mg/dL [facility] GFR/1.73 sq M.predicted MDRD (S/P/Bld) [Vol rate/Area] 69 mL/min/{1.73_m2} - PINF [facility] Comment on above: Calculations of gabriela mated GFR are performed using the 2020 CKD-EPI Study Refit equation without the race variable for the IDMS-Traceable creatinine methods. https://jasn.asnjournals.org/content//ASN.024573 1365 Glucose [Mass/Vol] 97 mg/dL 74 - 99 mg/dL [facility] Interpretation and review of laboratory results Normal [facility] Potassium [Moles/Vol] 3.7 mmol/L 3.5 - 5.3 mmol/L [facility] Sodium [Moles/Vol] 136 mmol/L 136 - 145 mmol/L [facility] Urea nitrogen [Mass/Vol] 11 mg/dL 6 - 23 mg/dL [facility] Anion gap [Moles/Vol] 13 mmol/L Normal 10-20 [facility] Comment on above: Performed By: #### 3 4529-8 #### MADELEINE ROSE ([id number]) [facility] ([facility]) [address] [place] [address] Calcium [Mass/Vol] 8.7 mg/dL Normal 8.6-10.3 [facility] Comment on above: Performed By: #### 3 4529-8 #### MADELEINE ROSE ([id number]) [facility] ([facility]) [address] [place] [address] Chloride [Moles/Vol] 101 mmol/L Normal 98-107 [facility] Comment on above: Performed By: #### 3 4529-8 #### MADELEINE ROSE ([id number]) [facility] ([facility]) [address] [place] [address] CO2 [Moles/Vol] 26 mmol/L Normal 21-32 [facility] Comment on above: Performed By: #### 3 4529-8 #### MADELEINE ROSE ([id number]) [facility] ([facility]) [address] [place] [address] Creatinine [Mass/Vol] 0.90 mg/dL Normal 0.50-1.05 [facility] Comment on above: Performed By: #### 3 4529-8 #### MADELEINE ROSE ([id number]) [facility] ([facility]) [address] [place] [address] GFR/1.73 sq M.predicted MDRD (S/P/Bld) [Vol rate/Area] 69 mL/min/1.73m*2 Normal >60 [facility] Comment on above: Result Comment: Calc ulations of estimated GFR are performed using the 2020 CKD-EPI Study Refit equation without the race variable for the IDMS-Traceable creatinine methods. https://jasn.asnjournals.org/content//ASN.725837 2529 Performed By: #### 3 4529-8 #### MADELEINE ROSE ([id number]) [facility] ([facility]) [address] [place] [address] Glucose [Mass/Vol] 97 mg/dL Normal 74-99 [facility] Comment on above: Performed By: #### 3 4529-8 #### MADELEINE ROSE ([id number]) [facility] ([facility]) [address] [place] [address] Potassium [Moles/Vol] 3.7 mmol/L Normal 3.5-5.3 [facility] Comment on above: Performed By: #### 3 4529-8 #### MADELEINE ROSE ([id number]) [facility] ([facility]) [address] [place] [address] Sodium [Moles/Vol] 136 mmol/L Normal 136-145 [facility] Comment on above: Performed By: #### 3 4529-8 #### MADELEINE ROSE ([id number]) [facility] ([facility]) [address] [place] [address] Urea nitrogen [Mass/Vol] 11 mg/dL Normal 6-23 [facility] Comment on above: Performed By: #### 3 4529-8 #### MADELEINE ROSE ([id number]) [facility] ([facility]) [address] [place] [address] CBC panel Auto (Bld)on 03-23 Erythrocyte distribution width (RBC) [Ratio] 13.4 % 11.5 - 14.5 % [facility] Hematocrit (Bld) [Volume fraction] 35.3 % Low 36.0 - 46.0 % [facility] Hemoglobin (Bld) [Mass/Vol] 11.4 g/dL Low 12.0 - 16.0 g/dL [facility] Interpretation and review of laboratory results Abnormal [facility] MCH (RBC) [Entitic mass] 30.4 pg 26.0 - 34.0 pg [facility] MCHC (RBC) [Mass/Vol] 32.3 g/dL 32.0 - 36.0 g/dL [facility] MCV (RBC) [Entitic vol] 94 fL 80 - 100 fL [facility] Nucleated RBC/100 WBC (Bld) [Ratio] 0.0 % [facility] Platelets (Bld) [#/Vol] 310 10*3/uL [facility] RBC (Bld) [#/Vol] 3.75 10*6/uL Low [facility] WBC (Bld) [#/Vol] 9.9 10*3/uL [facility] Erythrocyte distribution width (RBC) [Ratio] 13.4 % Normal 11.5-14.5 [facility] Comment on above: Performed By: #### 3 4529-8 #### MADELEINE ROSE ([id number]) [facility] ([facility]) [address] [place] [address] Hematocrit (Bld) [Volume fraction] 35.3 % Low 36.0-46.0 [facility] Comment on above: Performed By: #### 3 4529-8 #### MADELEINE ROSE ([id number]) [facility] ([facility]) [address] [place] [address] Hemoglobin (Bld) [Mass/Vol] 11.4 g/dL Low 12.0-16.0 [facility] Comment on above: Performed By: #### 3 4529-8 #### MADELEINE ROSE ([id number]) [facility] ([facility]) [address] [place] [address] MCH (RBC) [Entitic mass] 30.4 pg Normal 26.0-34.0 [facility] Comment on above: Performed By: #### 3 4529-8 #### MADELEINE ROSE ([id number]) [facility] ([facility]) [address] [place] [address] MCHC (RBC) [Mass/Vol] 32.3 g/dL Normal 32.0-36.0 [facility] Comment on above: Performed By: #### 3 4529-8 #### MADELEINE ROSE ([id number]) [facility] ([facility]) [address] [place] [address] MCV (RBC) [Entitic vol] 94 fL Normal 80-100 [facility] Comment on above: Performed By: #### 3 4529-8 #### MADELEINE ROSE ([id number]) [facility] ([facility]) [address] [place] [address] Nucleated RBC/100 WBC (Bld) [Ratio] 0.0 /100 WBCs Normal 0.0-0.0 [facility] Comment on above: Performed By: #### 3 4529-8 #### MADELEINE ROSE ([id number]) [facility] ([facility]) [address] [place] [address] Platelets (Bld) [#/Vol] 310 x10*3/uL Normal 150-450 [facility] Comment on above: Performed By: #### 3 4529-8 #### MADELEINE ROSE ([id number]) [facility] ([facility]) [address] [place] [address] RBC (Bld) [#/Vol] 3.75 x10*6/uL Low 4.00-5.20 [facility] Comment on above: Performed By: #### 3 4529-8 #### MADELEINE ROSE ([id number]) [facility] ([facility]) [address] [place] [address] WBC (Bld) [#/Vol] 9.9 x10*3/uL Normal 4.4-11.3 [facility] Comment on above: Performed By: #### 3 4529-8 #### MADELEINE ROSE ([id number]) [facility] ([facility]) [address] [place] [address] Basic metabolic 2000 panelon 03-22-2023 Anion gap [Moles/Vol] 11 mmol/L 10 - 2 0 mmol/L [facility] Calcium [Mass/Vol] 8.8 mg/dL 8.6 - 10. 3 mg/dL [facility] Chloride [Moles/Vol] 102 mmol/L 98 - 10 7 mmol/L [facility] CO2 [Moles/Vol] 26 mmol/L 21 - 32 mmol/L [facility] Creatinine [Mass/Vol] 0.83 mg/dL 0.50 - 1.05 mg/dL [facility] GFR/1.73 sq M.predicted MDRD (S/P/Bld) [Vol rate/Area] 76 mL/min/{1.73_m2} - PINF [facility] Comment on above: Calculations of gabriela mated GFR are performed using the 2020 CKD-EPI Study Refit equation without the race variable for the IDMS-Traceable creatinine methods. https://jasn.asnjournals.org/content//ASN.447440 1096 Glucose [Mass/Vol] 109 mg/dL High 74 - 99 mg/dL [facility] Interpretation and review of laboratory results Abnormal [facility] Potassium [Moles/Vol] 3.9 mmol/L 3.5 - 5.3 mmol/L [facility] Sodium [Moles/Vol] 135 mmol/L Low 136 - 145 mmol/L [facility] Urea nitrogen [Mass/Vol] 11 mg/dL 6 - 23 mg/dL [facility] Anion gap [Moles/Vol] 11 mmol/L Normal 10-20 [facility] Comment on above: Performed By: #### 2 4321-2 #### MADELEINE ROSE ([id number]) [facility] ([facility]) [address] [place] [address] Calcium [Mass/Vol] 8.8 mg/dL Normal 8.6-10.3 [facility] Comment on above: Performed By: #### 2 4321-2 #### MADELEINE ROSE ([id number]) [facility] ([facility]) [address] [place] [address] Chloride [Moles/Vol] 102 mmol/L Normal 98-107 [facility] Comment on above: Performed By: #### 2 4321-2 #### MADELEINE ROSE ([id number]) [facility]) [address] [place] [address] CO2 [Moles/Vol] 26 mmol/L Normal 21-32 [facility] Comment on above: Performed By: #### 2 4321-2 #### MADELEINE ROSE ([id number]) [facility]) [address] [place] [address] Creatinine [Mass/Vol] 0.83 mg/dL Normal 0.50-1.05 [facility] Comment on above: Performed By: #### 2 4321-2 #### MADELEINE ROSE ([id number]) [facility]) [address] [place] [address] GFR/1.73 sq M.predicted MDRD (S/P/Bld) [Vol rate/Area] 76 mL/min/1.73m*2 Normal >60 [facility] Comment on above: Result Comment: Calc ulations of estimated GFR are performed using the 2020 CKD-EPI Study Refit equation without the race variable for the IDMS-Traceable creatinine methods. https://jasn.asnjournals.org/content//ASN.540578 5300 Performed By: #### 2 4321-2 #### MADELEINE ROSE ([id number]) [facility]) [address] [place] [address] Glucose [Mass/Vol] 109 mg/dL High 74-99 [facility] Comment on above: Performed By: #### 2 4321-2 #### MADELEINE ROSE ([id number]) [facility]) [address] [place] [address] Potassium [Moles/Vol] 3.9 mmol/L Normal 3.5-5.3 [facility] Comment on above: Performed By: #### 2 4321-2 #### MADELEINE ROSE ([id number]) [facility]) [address] [place] [address] Sodium [Moles/Vol] 135 mmol/L Low 136-145 [facility] Comment on above: Performed By: #### 2 4321-2 #### MADELEINE ROSE ([id number]) [facility]) [address] [place] [address] Urea nitrogen [Mass/Vol] 11 mg/dL Normal 6-23 [facility] Comment on above: Performed By: #### 2 4321-2 #### MADELEINE ROSE ([id number]) [facility]) [address] [place] [address] CBC panel Auto (Bld)on 03-22 Erythrocyte distribution width (RBC) [Ratio] 13.5 % 11.5 - 14.5 % [facility] Hematocrit (Bld) [Volume fraction] 36.7 % 36.0 - 46.0 % [facility] Hemoglobin (Bld) [Mass/Vol] 11.6 g/dL Low 12.0 - 16.0 g/dL [facility] Interpretation and review of laboratory results Abnormal [facility] MCH (RBC) [Entitic mass] 30.2 pg 26.0 - 34.0 pg [facility] MCHC (RBC) [Mass/Vol] 31.6 g/dL Low 32.0 - 36.0 g/dL [facility] MCV (RBC) [Entitic vol] 96 fL 80 - 100 fL [facility] Nucleated RBC/100 WBC (Bld) [Ratio] 0.0 % [facility] Platelets (Bld) [#/Vol] 330 10*3/uL [facility] RBC (Bld) [#/Vol] 3.84 10*6/uL Low [facility] WBC (Bld) [#/Vol] 12.1 10*3/uL High [facility] Erythrocyte distribution width (RBC) [Ratio] 13.5 % Normal 11.5-14.5 [facility] Comment on above: Performed By: #### 5 8410-2 #### MADELEINE ROSE ([id number]) [facility] ([facility]) [address] [place] [address] Hematocrit (Bld) [Volume fraction] 36.7 % Normal 36.0-46.0 [facility] Comment on above: Performed By: #### 5 8410-2 #### MADELEINE ROSE ([id number]) [facility] ([facility]) [address] [place] [address] Hemoglobin (Bld) [Mass/Vol] 11.6 g/dL Low 12.0-16.0 [facility] Comment on above: Performed By: #### 5 8410-2 #### MADELEINE ROSE ([id number]) [facility] ([facility]) [address] [place] [address] MCH (RBC) [Entitic mass] 30.2 pg Normal 26.0-34.0 [facility] Comment on above: Performed By: #### 5 8410-2 ###Mohamud ROSE ([id number]) [facility] ([facility]) [address] [place] [address] MCHC (RBC) [Mass/Vol] 31.6 g/dL Low 32.0-36.0 [facility] Comment on above: Performed By: #### 5 8410-2 #### MADELEINE ROSE ([id number]) [facility] ([facility]) [address] [place] [address] MCV (RBC) [Entitic vol] 96 fL Normal 80-100 [facility] Comment on above: Performed By: #### 5 8410-2 #### MADELEINE ROSE ([id number]) [facility] ([facility]) [address] [place] [address] Nucleated RBC/100 WBC (Bld) [Ratio] 0.0 /100 WBCs Normal 0.0-0.0 [facility] Comment on above: Performed By: #### 5 8410-2 #### MADELEINE ROSE ([id number]) [facility] ([facility]) [address] [place] [address] Platelets (Bld) [#/Vol] 330 x10*3/uL Normal 150-450 [facility] Comment on above: Performed By: #### 5 8410-2 #### MADELEINE ROSE ([id number]) [facility] ([facility]) [address] [place] [address] RBC (Bld) [#/Vol] 3.84 x10*6/uL Low 4.00-5.20 [facility] Comment on above: Performed By: #### 5 8410-2 #### MADELEINE ROSE ([id number]) [facility] ([facility]) [address] [place] [address] WBC (Bld) [#/Vol] 12.1 x10*3/uL High 4.4-11.3 [facility] Comment on above: Performed By: #### 5 8410-2 #### MADELEINE ROSE ([id number]) [facility] ([facility]) [address] [place] [address] XR CERVICAL SPINE 2-3 VIEWSo n 03-22-2023 XR CERVICAL SPINE 2-3 VIEWS Interpreted By: Juwan Petit, STUDY: XR CERVICAL SPINE 2-3 VIEWS; ; 03/22/2023 6:16 am INDICATION: Signs/Symptoms:post op evaluation. COMPARISON: 03/21/2023 at 12:31 p.m. ACCESSION NUMBER(S): [id number] ORDERING CLINICIAN: EMILY PATRICK FINDINGS: Two view cervical spine Postoperative [...] Juwan Petit 03/22/2023 9:24 AM Dictation workstation: [id number] [facility] XR Cervical spine 2 or [...] Juwan Petit 03/22/2023 9:24 AM Dictation workstation: [id number] [facility]OD[facility] Interpreted By: Juwan Rhoades, STUDY: XR CERVICAL SPINE 2-3 VIEWS; ; 03/22/2023 6:16 am INDICATION: Signs/Symptoms:post op evaluation. COMPARISON: 03/21/2023 at 12:31 p.m. ACCESSION NUMBER(S): [id number] ORDERING CLINICIAN: EMILY PATRICK FINDINGS: Two view cervical spine Postoperative [...] otherwise limiting evaluation however. MMODAL Juwan Petit, DO - 03/22/2023 Interpreted By: Juwan Petit, STUDY: XR CERVICAL SPINE 2-3 VIEWS; ; 03/22/2023 6:16 am INDICATION: Signs/Symptoms:post op evaluation. COMPARISON: 03/21/2023 at 12:31 p.m. ACCESSION NUMBER(S): [id number] ORDERING CLINICIAN: EMILY PATRICK FINDINGS: Two view cervical spine Postoperative [...] Juwan Petit 03/22/2023 9:24 AM Dictation workstation: [id number] [facility] Work Phone: [facility] Work Phone: Radiology Study observation (narrative) [facility] Work Phone: XR Cervical spine Single vie won 03-22-2023 As above. MACRO: None Signed by: Juwan Petit 03/22/2023 9:17 AM Dictation workstation: [id number] [facility] Interpreted By: Juwan Rhoades, STUDY: XR CERVICAL SPINE 1 VIEW; ; 03/21/2023 12:54 pm INDICATION: Signs/Symptoms:surgical procedure. COMPARISON: 03/21/2023 at 10:17 a.m. ACCESSION NUMBER(S): [id number] ORDERING CLINICIAN: MIREILLE ZURITA FINDINGS: Single lateral [...] COMPARISON: 03/21/2023 at 10:17 a.m. ACCESSION NUMBER(S): [id number] ORDERING CLINICIAN: MIREILLE ZURITA FINDINGS: Single lateral [...] Juwan Petit 03/22/2023 9:17 AM Dictation workstation: [id number] [facility] Work Phone: [facility] Work Phone: As above. MACRO: None Signed by: Juwan Petit 03/22/2023 9:13 AM Dictation workstation: [id number] [facility] Interpreted By: Juwan Rhoades, STUDY: XR CERVICAL SPINE 1 VIEW; ; 03/21/2023 10:16 am INDICATION: Signs/Symptoms:surgical procedure. COMPARISON: 03/21/2023 at 8:58 a.m. ACCESSION NUMBER(S): [id number] ORDERING CLINICIAN: MIREILLE ZURITA FINDINGS: Single lateral [...] COMPARISON: 03/21/2023 at 8:58 a.m. ACCESSION NUMBER(S): [id number] ORDERING CLINICIAN: MIREILLE ZURITA FINDINGS: Single lateral [...] Juwan Petit 03/22/2023 9:13 AM Dictation workstation: [id number] [facility] Work Phone: [facility] Work Phone: Linear metallic loca lization device is demonstrated with distal aspect/tip overlying the C3-C4 interspace anteriorly. Prevertebral soft tissue swelling and evidence of soft tissue gas within the prevertebral as well as likely also anterior neck soft tissues probably relating to sequela of recent procedure. Clinical correlation and follow-up advised. MACRO: None Signed by: Juwan Petit 03/22/2023 9:09 AM Dictation workstation: [id number] Interpreted By: Juwan Rhoades, STUDY: XR CERVICAL SPINE 1 VIEW; ; 03/21/2023 8:59 am INDICATION: Signs/Symptoms:Cervical spondylosis with myelopathy. COMPARISON: 03/21/2023 at 8:10 a.m. ACCESSION NUMBER(S): [id number] ORDERING CLINICIAN: MIREILLE ZURITA FINDINGS: Single lateral [...] COMPARISON: 03/21/2023 at 8:10 a.m. ACCESSION NUMBER(S): [id number] ORDERING CLINICIAN: MIREILLE ZURITA FINDINGS: Single lateral [...] Juwan Petit 03/22/2023 9:09 AM Dictation workstation: [id number] [facility] Work Phone: [facility] Work Phone: XR CERVICAL SPINE 1 VIEWon 1 05-21-2022 XR CERVICAL SPINE 1 VIEW Interpreted By: Juwan Petit, STUDY: XR CERVICAL SPINE 1 VIEW; ; 03/21/2023 12:54 pm INDICATION: Signs/Symptoms:surgical procedure. COMPARISON: 03/21/2023 at 10:17 a.m. ACCESSION NUMBER(S): [id number] ORDERING CLINICIAN: MIREILLE ZURITA FINDINGS: Single lateral [...] Juwan Petit 03/22/2023 9:17 AM Dictation workstation: [id number] [facility] XR CERVICAL SPINE 1 VIEW Interpreted By: Juwan Petit, STUDY: XR CERVICAL SPINE 1 VIEW; ; 03/21/2023 10:16 am INDICATION: Signs/Symptoms:surgical procedure. COMPARISON: 03/21/2023 at 8:58 a.m. ACCESSION NUMBER(S): [id number] ORDERING CLINICIAN: MIREILLE ZURITA FINDINGS: Single lateral [...] Juwan Petit 03/22/2023 9:13 AM Dictation workstation: [id number] [facility] XR CERVICAL SPINE 1 VIEW Interpreted By: Juwan Petit, STUDY: XR CERVICAL SPINE 1 VIEW; ; 03/21/2023 8:59 am INDICATION: Signs/Symptoms:Cervical spondylosis with myelopathy. COMPARISON: 03/21/2023 at 8:10 a.m. ACCESSION NUMBER(S): [id number] ORDERING CLINICIAN: MIREILLE ZURITA FINDINGS: Single lateral [...] Juwan Petit 03/22/2023 9:09 AM Dictation workstation: [id number] [facility] XR CERVICAL SPINE 1 VIEW Interpreted By: Juwan Petit, STUDY: XR CERVICAL SPINE 1 VIEW; ; 03/21/2023 8:11 am INDICATION: Signs/Symptoms:surgical procedure. COMPARISON: 04/25/2020 ACCESSION NUMBER(S): [id number] ORDERING CLINICIAN: MIREILLE ZURITA FINDINGS: Single lateral [...] Juwan Petit 03/21/2023 8:52 AM Dictation workstation: [id number] [facility] XR Cervical spine Single vie won 03-21-2023 Radiology Study observation (narrative) [facility] Work Phone: Radiology Study observation (narrative) [facility] Work Phone: Radiology Study observation (narrative) [facility] Work Phone: As above. MACRO: None Signed by: Juwan Petit 03/21/2023 8:52 AM Dictation workstation: [id number] Interpreted By: Juwan Rhoades, STUDY: XR CERVICAL SPINE 1 VIEW; ; 03/21/2023 8:11 am INDICATION: Signs/Symptoms:surgical procedure. COMPARISON: 04/25/2020 ACCESSION NUMBER(S): [id number] ORDERING CLINICIAN: MIREILLE ZURITA FINDINGS: Single lateral [...] INDICATION: Signs/Symptoms:surgical procedure. COMPARISON: 04/25/2020 ACCESSION NUMBER(S): [id number] ORDERING CLINICIAN: MIREILLE ZURITA FINDINGS: Single lateral [...] Juwan Petit 03/21/2023 8:52 AM Dictation workstation: [id number] [facility] Work Phone: Radiology Study observation (narrative) [facility] Work Phone: XR Cervical spine Single vie wOrdered By: Juwan Petit on 03-21-2023 [facility] Work Phone: MRSA isol Org specific cx Ql (Nose)Ordered By: Cele Chatterjee on 03-16-2023 Interpretation and review of laboratory results Normal [facility] Staphylococcus sp identified Org specific cx Nom (Unsp spec) No Staphylococcus aureus isolated [facility] XR Chest 2 Viewson 3 No acute cardiopulmo nary disease. MACRO: none Signed by: Zeynep Sen 03/15/2023 12:07 PM Dictation workstation: [id number] MMODAL Interpreted By: Zeynep Palafox, STUDY: XR CHEST 2 VIEWS; 03/14/2023 2:09 pm INDICATION: Signs/Symptoms:preop testing. COMPARISON: None. ACCESSION NUMBER(S): [id number] ORDERING CLINICIAN: MIREILLE ZURITA FINDINGS: Heart is [...] INDICATION: Signs/Symptoms:preop testing. COMPARISON: None. ACCESSION NUMBER(S): [id number] ORDERING CLINICIAN: MIREILLE ZURITA FINDINGS: Heart is [...] Zeynep Sen 03/15/2023 12:07 PM Dictation workstation: [id number] [facility] Work Phone: XR Chest 2 ViewsOrdered By: Zeynep Sen on 03-15-2023 [facility] Work Phone: CBC panel Auto (Bld)on 03-14 Erythrocyte distribution width (RBC) [Ratio] 13.0 % 11.5 - 14.5 % [facility] Hematocrit (Bld) [Volume fraction] 37.8 % 36.0 - 46.0 % [facility] Hemoglobin (Bld) [Mass/Vol] 12.2 g/dL 12.0 - 16.0 g/dL [facility] Interpretation and review of laboratory results Normal [facility] MCH (RBC) [Entitic mass] 30.1 pg 26.0 - 34.0 pg [facility] MCHC (RBC) [Mass/Vol] 32.3 g/dL 32.0 - 36.0 g/dL [facility] MCV (RBC) [Entitic vol] 93 fL 80 - 100 fL [facility] Nucleated RBC/100 WBC (Bld) [Ratio] 0.0 % [facility] Platelets (Bld) [#/Vol] 350 10*3/uL [facility] RBC (Bld) [#/Vol] 4.05 10*6/uL [facility] WBC (Bld) [#/Vol] 8.6 10*3/uL [facility] Erythrocyte distribution width (RBC) [Ratio] 13.0 % Normal 11.5-14.5 [facility] Comment on above: Performed By: #### 5 8410-2 #### MADELEINE ROSE ([id number]) [facility] ([facility]) [address] [place] [address] Hematocrit (Bld) [Volume fraction] 37.8 % Normal 36.0-46.0 [facility] Comment on above: Performed By: #### 5 8410-2 #### MADELEINE ROSE ([id number]) [facility] ([facility]) [address] [place] [address] Hemoglobin (Bld) [Mass/Vol] 12.2 g/dL Normal 12.0-16.0 [facility] Comment on above: Performed By: #### 5 8410-2 #### MADELEINE ROSE ([id number]) [facility] ([facility]) [address] [place] [address] MCH (RBC) [Entitic mass] 30.1 pg Normal 26.0-34.0 [facility] Comment on above: Performed By: #### 5 8410-2 #### MADELEINE ROSE ([id number]) [facility] ([facility]) [address] [place] [address] MCHC (RBC) [Mass/Vol] 32.3 g/dL Normal 32.0-36.0 [facility] Comment on above: Performed By: #### 5 8410-2 #### MADELEINE ROSE ([id number]) [facility] ([facility]) [address] [place] [address] MCV (RBC) [Entitic vol] 93 fL Normal 80-100 [facility] Comment on above: Performed By: #### 5 8410-2 #### MADELEINE ROSE ([id number]) [facility] ([facility]) [address] [place] [address] Nucleated RBC/100 WBC (Bld) [Ratio] 0.0 /100 WBCs Normal 0.0-0.0 [facility] Comment on above: Performed By: #### 5 8410-2 #### MADELEINE ROSE ([id number]) [facility] ([facility]) [address] [place] [address] Platelets (Bld) [#/Vol] 350 x10*3/uL Normal 150-450 [facility] Comment on above: Performed By: #### 5 8410-2 #### MADELEINE ROSE ([id number]) [facility] ([facility]) [address] [place] [address] RBC (Bld) [#/Vol] 4.05 x10*6/uL Normal 4.00-5.20 [facility] Comment on above: Performed By: #### 5 8410-2 #### MADELEINE ROSE ([id number]) [facility] ([facility]) [address] [place] [address] WBC (Bld) [#/Vol] 8.6 x10*3/uL Normal 4.4-11.3 [facility] Comment on above: Performed By: #### 5 8410-2 #### MADELEINE ROSE ([id number]) [facility] ([facility]) [address] [place] [address] Comprehensive metabolic 2000 panelon 03-14-2023 Albumin BCP dye [Mass/Vol] 4.3 g/dL 3.4 - 5.0 g/dL [facility] ALP [Catalytic activity/Vol] 51 U/L 33 - 136 U/L [facility] ALT With P-5'-P [Catalytic activity/Vol] 14 U/L 7 - 45 U/L [facility] Comment on above: Patients treated wit h Sulfasalazine may generate falsely decreased results for ALT. Anion gap [Moles/Vol] 10 mmol/L 10 - 2 0 mmol/L [facility] AST With P-5'-P [Catalytic activity/Vol] 13 U/L 9 - 39 U/L [facility] Bilirubin [Mass/Vol] 0.5 mg/dL 0.0 - 1 .2 mg/dL [facility] Calcium [Mass/Vol] 9.2 mg/dL 8.6 - 10. 3 mg/dL [facility] Chloride [Moles/Vol] 101 mmol/L 98 - 10 7 mmol/L [facility] CO2 [Moles/Vol] 29 mmol/L 21 - 32 mmol/L [facility] Creatinine [Mass/Vol] 0.95 mg/dL 0.50 - 1.05 mg/dL [facility] GFR/1.73 sq M.predicted MDRD (S/P/Bld) [Vol rate/Area] 65 mL/min/{1.73_m2} - PINF [facility] Comment on above: Calculations of gabriela mated GFR are performed using the 2020 CKD-EPI Study Refit equation without the race variable for the IDMS-Traceable creatinine methods. https://jasn.asnjournals.org/content//ASN.847456 6233 Glucose [Mass/Vol] 83 mg/dL 74 - 99 mg/dL [facility] Potassium [Moles/Vol] 4.2 mmol/L 3.5 - 5.3 mmol/L [facility] Protein [Mass/Vol] 6.4 g/dL 6.4 - 8.2 g/dL [facility] Sodium [Moles/Vol] 136 mmol/L 136 - 145 mmol/L [facility] Urea nitrogen [Mass/Vol] 21 mg/dL 6 - 23 mg/dL [facility] Albumin BCP dye [Mass/Vol] 4.3 g/dL Normal 3.4-5.0 [facility] Comment on above: Performed By: #### 2 4323-8 #### MADELEINE ROSE ([id number]) [facility] ([facility]) [address] [place] [address] ALP [Catalytic activity/Vol] 51 U/L Normal 33-136 [facility] Comment on above: Performed By: #### 2 4323-8 #### MADELEINE ROSE ([id number]) [facility] ([facility]) [address] [place] [address] ALT With P-5'-P [Catalytic activity/Vol] 14 U/L Normal 7-45 [facility] Comment on above: Result Comment: Lorena ents treated with Sulfasalazine may generate falsely decreased results for ALT. Performed By: #### 2 4323-8 #### MADELEINE ROSE ([id number]) [facility] ([facility]) [address] [place] [address] Anion gap [Moles/Vol] 10 mmol/L Normal 10-20 [facility] Comment on above: Performed By: #### 2 4323-8 #### MADELEINE ROSE ([id number]) [facility] ([facility]) [address] [place] [address] AST With P-5'-P [Catalytic activity/Vol] 13 U/L Normal 9-39 [facility] Comment on above: Performed By: #### 2 4323-8 #### MADELEINE ROSE ([id number]) [facility] ([facility]) [address] [place] [address] Bilirubin [Mass/Vol] 0.5 mg/dL Normal 0.0-1.2 [facility] Comment on above: Performed By: #### 2 4323-8 #### MADELEINE ROSE ([id number]) [facility]) [address] [place] [address] Calcium [Mass/Vol] 9.2 mg/dL Normal 8.6-10.3 [facility] Comment on above: Performed By: #### 2 4323-8 #### MADELEINE RESTREPOFRI ([id number]) [facility]) [address] [place] [address] Chloride [Moles/Vol] 101 mmol/L Normal 98-107 [facility] Comment on above: Performed By: #### 2 4323-8 #### MADELEINE ROSE ([id number]) [facility] ([facility]) [address] [place] [address] CO2 [Moles/Vol] 29 mmol/L Normal 21-32 [facility] Comment on above: Performed By: #### 2 4323-8 #### MADELEINE ROSE ([id number]) [facility] ([facility]) [address] [place] [address] Creatinine [Mass/Vol] 0.95 mg/dL Normal 0.50-1.05 [facility] Comment on above: Performed By: #### 2 4323-8 #### MADELEINE RESTREPOFRI ([id number]) [facility] ([facility]) [address] [place] [address] GFR/1.73 sq M.predicted MDRD (S/P/Bld) [Vol rate/Area] 65 mL/min/1.73m*2 Normal >60 [facility] Comment on above: Result Comment: Calc ulations of estimated GFR are performed using the 2020 CKD-EPI Study Refit equation without the race variable for the IDMS-Traceable creatinine methods. https://jasn.asnjournals.org/content//ASN.927918 2276 Performed By: #### 2 4323-8 #### MADELEINE ROSE ([id number]) [facility] ([facility]) [address] [place] [address] Glucose [Mass/Vol] 83 mg/dL Normal 74-99 [facility] Comment on above: Performed By: #### 2 4323-8 #### MADELEINE ROSE ([id number]) [facility] ([facility]) [address] [place] [address] Potassium [Moles/Vol] 4.2 mmol/L Normal 3.5-5.3 [facility] Comment on above: Performed By: #### 2 4323-8 #### MADELEINE ROSE ([id number]) [facility] ([facility]) [address] [place] [address] Protein [Mass/Vol] 6.4 g/dL Normal 6.4-8.2 [facility] Comment on above: Performed By: #### 2 4323-8 #### MADELEINE ROSE ([id number]) [facility] ([facility]) [address] [place] [address] Sodium [Moles/Vol] 136 mmol/L Normal 136-145 [facility] Comment on above: Performed By: #### 2 4323-8 #### MADELEINE ROSE ([id number]) [facility] ([facility]) [address] [place] [address] Urea nitrogen [Mass/Vol] 21 mg/dL Normal 6-23 [facility] Comment on above: Performed By: #### 2 4323-8 #### MADELEINE ROSE ([id number]) [facility] ([facility]) [address] [place] [address] ECG 12-LEADon 03-14-2023 ECG 12-LEAD Ventricular Rate 63 Atrial Rate 63 P-R Interval 192 QRS Duration 84 Q-T Interval 406 QTC Calculation(Bazett) 415 P [place] 51 R [place] 52 T [place] 44 QRS Count 10 Q Onset 224 P Onset 128 P Offset 183 T Offset 427 QTC Fredericia 412 Diagnosis Normal sinus rhythm Normal ECG No previous ECGs available Confirmed by Camilo Parr ([id number]) on 03/28/2023 9:17:27 PM Normal [facility] No Panel Informationon 03-14 Interpretation and review of laboratory results Normal [facility] PT and aPTT panel Coag (PPP) on 03-14-2023 aPTT Coag (PPP) [Time] 29 s [facility] INR Coag (PPP) [Relative time] 1.0 {INR} 0.9 - 1.1 [facility] Interpretation and review of laboratory results Normal [facility] PT Coag (PPP) [Time] 11.[address] [facility] The APTT is no longe r used for monitoring Unfractionated Heparin Therapy. For monitoring Heparin Therapy, use the Heparin Assay. [facility] aPTT Coag (PPP) [Time] 29 s Normal 27-38 [facility] Comment on above: Order Comment: The A PTT is no longer used for monitoring Unfractionated Heparin Therapy. For monitoring Heparin Therapy, use the Heparin Assay. Performed By: #### 3 4529-8 #### MADELEINE ROSE ([id number]) [facility] ([facility]) [address] [place] [address] INR Coag (PPP) [Relative time] 1.0 Normal 0.9-1.1 [facility] Comment on above: Order Comment: The A PTT is no longer used for monitoring Unfractionated Heparin Therapy. For monitoring Heparin Therapy, use the Heparin Assay. Performed By: #### 3 4529-8 #### MADELEINE ROSE ([id number]) [facility]) [address] [place] [address] PT Coag (PPP) [Time] 11.0 s Normal 9.8-12.8 [facility] Comment on above: Order Comment: The A PTT is no longer used for monitoring Unfractionated Heparin Therapy. For monitoring Heparin Therapy, use the Heparin Assay. Performed By: #### 3 4529-8 #### MADELEINE ROSE ([id number]) [facility] ([facility]) [address] [place] [address] Phosphateon 03-14-2023 Phosphate [Mass/Vol] 3.1 mg/dL Normal 2.5-4.[address] [facility] Comment on above: Result Comment: The performance characteristics of phosphorus testing in heparinized plasma have been validated by the individual laboratory site where testing is performed. Testing on heparinized plasma is not approved by the FDA; however, such approval is not necessary. Performed By: #### 2 777-1 #### MADELEINE ROSE ([id number]) [facility] ([facility]) [address] [place] [address] Phosphoruson 03-14-2023 Phosphate [Mass/Vol] 3.1 mg/dL 2.5 - 4 .9 mg/dL [facility] Comment on above: The performance jurgen acteristics [...] Status: Final result Abnormal: No Resulting Lab: [facility] [address] [place] [address] CULTURE No Staphylococcus aureus isolated Normal [facility] Comment on above: Performed By: #### 5 2969-3 #### TSERING Jarvis ([id number]) [facility] ([facility]) [address] [place] [address] XR CHEST 2 VIEWSon XR CHEST 2 VIEWS Interpreted By: Zeynep Palafox, STUDY: XR CHEST 2 VIEWS; 03/14/2023 2:09 pm INDICATION: Signs/Symptoms:preop testing. COMPARISON: None. ACCESSION NUMBER(S): [id number] ORDERING CLINICIAN: MIREILLE ZURITA FINDINGS: Heart is [...] Zeynep Sen 03/15/2023 12:07 PM Dictation workstation: [id number] [facility] XR Chest 2 Viewson 3 Radiology Study observation (narrative) [facility] Work Phone: Blood Pressure Cuff Sizeon 0 [...] would like to proceed. She is a Latter day and so we definitely discussed not using blood products. She also has a TOY MAKER shunt and and so we are going [...] would like to proceed. She is a Latter day and so we definitely discussed not using blood products. She also has a TOY MAKER shunt and and so we are going [...] Tablet Vitals Vital Signs Recorded: 20Jan2023 02:47PM Gstllxlwagu22.9 F, Temporal Heart Rate69 Ktthdjrn949, LUE, Sitting Rhuugqfpt57, LUE, Sitting Blood Pressure Cuff SizeAdult Height5 ft 3 in Nqvakw454 lb BMI Qkdbnqutal23.29 kg/m2 BSA Calculated1.81 Tobacco Useb) No PHQ [...] has been experiencing. 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 [...] office or contact me directly. Sincerely, Mireille Zurtia MD Chief Complaint Patient is being seen [...] has been experiencing. 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 [...] chele Hts 305 Work Phone: [facility]-08 SARS-CoV-2 (COVID-19) RNA CONRADO+probe Ql (Unsp spec) Not detected Normal NOT DETECTED [facility] Comment on above: Result Comment: This test is not yet approved or cleared by the [place] FDA. When there are no FDA-approved or cleared tests available, and other criteria are met, FDA can make tests available under an emergency access mechanism called an Emergency Use Authorization (EUA). The EUA for this test is supported by the Home Improvement Installer of Health and Human Service's (HHS's) declaration [...] SARS-CoV-2. Performed By: #### O BSCRN #### [facility] [address] [place] [address] Dr. Shobha Ruffin TSHon 07-21-2022 TSH 0.487 uIU/mL Normal 0.358-3.74 0 [facility] Comment on above: Performed By: #### O BSCRN #### [facility] [address] [place] [address] Dr. Shobha Ruffin VITAMIN B12on 07-21-2022 Cobalamin (Vitamin B12) [Mass/Vol] 554.0 pg/mL Normal 193.0-986. 0 [facility] Comment on above: Performed By: #### R ENAL URIC, MG #### [facility] [address] [place] [address] Dr. Shobha Ruffin PTH INTACTon 05-18-2022 PTH, Intact 29 pg/mL Normal 15-65 [facility] Comment on above: Performed By: #### R ENAL, URIC, MG #### [facility] [address] [place] [address] Dr. Shobha Ruffin FERRITINon 05-17-2022 Ferritin [Mass/Vol] 55.0 ng/mL Normal 8.0-252.0 [facility] Comment on above: Performed By: #### R ENAL URIC, MG #### [facility] [address] [place] [address] Dr. Shobha Ruffin HEMOGRAM AND PLATELon 2022 Hematocrit (Bld) [Volume fraction] 35.6 % Critically low 36.0-48.0 [facility] Comment on above: Performed By: #### R ENAL URIC, MG #### [facility] [address] [place] [address] Dr. Shobha Ruffin Hemoglobin (Bld) [Mass/Vol] 12.3 g/dL Normal 12.0-16.0 [facility] Comment on above: Performed By: #### R ENAL, URIC, MG #### [facility] [address] [place], [place] [id number] Dr. Shobha Ruffin MCH (RBC) [Entitic mass] 29.6 pg Normal 26.7-34.0 [facility] Comment on above: Performed By: #### R ENAL, URIC, MG #### [facility] [address] [place] [address] Dr. Shobha Ruffin MCHC (RBC) [Mass/Vol] 34.6 g/dL Normal 29.9-35.2 [facility] Comment on above: Performed By: #### R ENAL, URIC, MG #### [facility] [address] [place] [address] Dr. Shobha Ruffin MCV (RBC) [Entitic vol] 85.8 fL Normal 81.0-99.0 [facility] Comment on above: Performed By: #### R ENAL, URIC, MG #### [facility] [address] [place] [address] Dr. Shobha Ruffin PLT 338 103/ul Normal 150-450 [facility] Comment on above: Performed By: #### R ENAL, URIC, MG #### [facility] [address] [place] [address] Dr. Shobha Ruffin RBC 4.15 106/ul Critically low 4.20-5.40 [facility] Comment on above: Performed By: #### R ENAL, URIC, MG #### [facility] [address] [place] [address] Dr. Shobha Ruffin WBC 7.0 103/ul Normal 4.0-11.0 [facility] Comment on above: Performed By: #### R ENAL, URIC, MG #### [facility] [address] [place] [address] Dr. Shobha Ruffin IRON AND TIBCon 05-17-2022 % SATURATION 29.6 % Normal [facility] Comment on above: Performed By: #### R ENAL, URIC, MG #### [facility] [address] [place] [address] Dr. Shobha Ruffin Iron [Mass/Vol] 89.0 ug/dL Normal 50.0-170.0 [facility] Comment on above: Performed By: #### R ENAL, URIC, MG #### [facility] [address] [place] [address] Dr. Shobha Ruffin TIBC DIRECT 301.0 ug/dL Normal 250.0-450. 0 [facility] Comment on above: Performed By: #### R ENAL, URIC, MG #### [facility] [address] [place] [address] Dr. Shobha Ruffin MAGNESIUMon 05-17-2022 Magnesium [Mass/Vol] 2.2 mg/dL Normal 1.8-2.4 [facility] Comment on above: Performed By: #### R ENAL, URIC, MG #### [facility] [address] [place] [address] Dr. Shobha Ruffin RENAL FUNCTION PANELon 05-17 Albumin [Mass/Vol] 3.7 g/dL Normal 3.4-5.0 [facility] Comment on above: Performed By: #### R ENAL, URIC, MG #### [facility] [address] [place] [address] Dr. Shobha Ruffin Calcium [Mass/Vol] 9.1 mg/dL Normal 8.5-10.1 [facility] Comment on above: Performed By: #### R ENAL, URIC, MG #### [facility] [address] [place] [address] Dr. Shobha Ruffin Chloride [Moles/Vol] 100 mmol/L Normal 98-107 [facility] Comment on above: Performed By: #### R ENAL, URIC, MG #### [facility] [address] [place] [address] Dr. Shobha Ruffin CO2 [Moles/Vol] 31.0 mmol/L Normal 21.0-32.0 [facility] Comment on above: Performed By: #### R ENAL, URIC, MG #### [facility] [address] [place] [address] Dr. Shobha Ruffin Creatinine [Mass/Vol] 0.92 mg/dL Normal 0.55-1.02 [facility] Comment on above: Performed By: #### R ENAL, URIC, MG #### [facility] [address] [address] [address] Shobha Ruffin EGFR-AF TOGOLESE >60 Normal >=60 [facility] Comment on above: Performed By: #### R ENAL, URIC, MG #### [facility] [address] [address] [address] Shobha Ruffin EGFR-NON AF TOGOLESE >60 Normal >=60 [facility] Comment on above: Performed By: #### R ENAL, URIC, MG #### [facility] [address] [address] [address] Shobha Ruffin Glucose [Mass/Vol] 93 mg/dL Normal 74-106 [facility] Comment on above: Performed By: #### R ENAL, URIC, MG #### [facility] [address] [address] [address] Shobha Ruffin Phosphate [Mass/Vol] 3.7 mg/dL Normal 2.6-4.7 [facility] Comment on above: Performed By: #### R ENAL, URIC, MG #### [facility] [address] [address] [address] Shobha Ruffin Potassium [Moles/Vol] 3.9 mmol/L Normal 3.5-5.1 [facility] Comment on above: Performed By: #### R ENAL, URIC, MG #### [facility] [address] [address] [address] Shobha Ruffin Sodium [Moles/Vol] 138 mmol/L Normal 136-145 [facility] Comment on above: Performed By: #### R ENAL, URIC, MG #### [facility] [address] [address] [address] Shobha Ruffin Urea nitrogen [Mass/Vol] 19.0 mg/dL Critically high 7.0-18.0 [facility] Comment on above: Performed By: #### R ENAL, URIC, MG #### [facility] [address] [address] [address] Shobha Ruffin UA RANDOM W/MICROSCOPICon BACTERIA NONE SEEN Normal NONE SEEN [facility] Comment on above: Performed By: #### U AMIC #### [facility] [address] [address] [address] Shobha Ruffin Bilirubin Ql (U) Negative Normal NEGATIVE [facility] Comment on above: Performed By: #### U AMIC #### [facility] [address] [address] [address] Shobha Ruffin CAST NONE SEEN Normal NONE SEEN [facility] Comment on above: Performed By: #### U AMIC #### [facility] [address] [address] [address] Shobha Ruffin Clarity (U) SL CLOUDY Abnormal CLEAR [facility] Comment on above: Performed By: #### U AMIC #### [facility] [address] [address] [address] Shobha Ruffin Color (U) LT. YELLOW Normal YELLOW [facility] Comment on above: Performed By: #### U AMIC #### [facility] [address] [address] [address] Shobha Ruffin Crystals LM Nom (Urine sed) NONE SEEN Normal NONE SEEN [facility] Comment on above: Performed By: #### U AMIC #### [facility] [address] [place] [address] Dr. Shobha Ruffin Epithelial cells LM Ql (Urine sed) MODERATE Abnormal NONE SEEN /RARE [facility] Comment on above: Performed By: #### U AMIC #### [facility] [address] [address] [address] Shobha Ruffin Glucose Ql (U) Negative Normal NEGATIVE [facility] Comment on above: Performed By: #### U AMIC #### [facility] [address] [address] [address] Shobha Ruffin Hemoglobin Ql (U) Negative Normal NEGATIVE [facility] Comment on above: Performed By: #### U AMIC #### [facility] [address] [address] [address] Shobha Ruffin Ketones Ql (U) Negative Normal NEGATIVE [facility] Comment on above: Performed By: #### U AMIC #### [facility] [address] [address] [address] Shobha Ruffin LEUKOCYTES TRACE Abnormal NEGATIVE [facility] Comment on above: Performed By: #### U AMIC #### [facility] [address] [place] [address] Dr. Shobha Ruffin MUCOUS NONE SEEN Normal NONE SEEN [facility] Comment on above: Performed By: #### U AMIC #### [facility] [address] [address] [address] Shobha Ruffin Nitrite Ql (U) Negative Normal NEGATIVE [facility] Comment on above: Performed By: #### U AMIC #### [facility] [address] [place] [address] Dr. Shobha Ruffin pH (U) 7.5 [pH] Normal 5-9 [facility] Comment on above: Performed By: #### U AMIC #### [facility] [address] [place] [address] Dr. Shobha Ruffin RBC NONE SEEN Abnormal 0-2 [facility] Comment on above: Performed By: #### U AMIC #### [facility] [address] [place] [address] Dr. Shobha Ruffin SPEC GRAVITY 1.015 Normal 1.005-<=1. 025 [facility] Comment on above: Performed By: #### U AMIC #### [facility] [address] [place] [address] Dr. Shobha Ruffin UA PROTEIN Negative Normal NEGATIVE/ TRACE [facility] Comment on above: Performed By: #### U AMIC #### [facility] [address] [place] [address] Dr. Shobha Ruffin Urobilinogen Qn (U) 0.2 {Raul'U}/dL Normal 0.2 - 1. 0 [facility] Comment on above: Performed By: #### U AMIC #### [facility] [address] [place] [address] Dr. Shobha Ruffin WBC 0-2 Abnormal NONE SEEN [facility] Comment on above: Performed By: #### U AMIC #### [facility] [address] [place] [address] Dr. Shobha Ruffin URINE T PROTEIN CREAT RATIOo n 05-17-2022 Protein (U) [Mass/Vol] 20.5 mg/dL Critically high <=12.0 [facility] Comment on above: Performed By: #### O BSCRN #### [facility] [address] [place] [address] Dr. Shobha Ruffin UR PROT CREAT RAT 0.21 Normal [facility] Comment on above: Performed By: #### O BSCRN #### [facility] [address] [place] [address] Dr. Shobha Ruffin URINE CREAT 98.95 mg/dL Normal 20.00-300. 00 [facility] Comment on above: Performed By: #### O BSCRN #### [facility] [address] [place] [address] Dr. Shobha Ruffin VITAMIN D 25 OHon 05-17-2022 VIT D 25-OH 29.5 ng/mL Normal [facility] Comment on above: Performed By: #### R ENAL, URIC, MG #### [facility] [address] [place] [address] Dr. Shobha Ruffin VIT D RANGES SEE BELOW Normal [facility] Comment on above: Result Comment: <20 ng/mL Vit D deficient 20 - <30 ng/mL Vit D insufficient 30 - 100 ng/mL Vit D sufficient >100 ng/mL Potential Toxicity Performed By: #### R ENAL, URIC, MG #### [facility] [address] [place] [address] Dr. Shobha Ruffin CBC AUTO DIFFon 05-04-2022 BASO # 0.1 103/ul Normal 0.0-0.1 [facility] Comment on above: Performed By: #### O BSCRN #### [facility] [address] [place] [address] Dr. Shobha Ruffin Basophils/100 WBC (Bld) 1.0 % Normal 0.2-2.0 [facility] Comment on above: Performed By: #### O BSCRN #### [facility] [address] [place] [address] Dr. Shobha Ruffin EO # 0.2 103/ul Normal 0.0-0.7 [facility] Comment on above: Performed By: #### O BSCRN #### [facility] [address] [place] [address] Dr. Shobha Ruffin Eosinophils/100 WBC (Bld) 2.5 % Normal 0.9-7.0 [facility] Comment on above: Performed By: #### O BSCRN #### [facility] [address] [place] [address] Dr. Shobha Ruffin Erythrocyte distribution width (RBC) [Ratio] 13.3 % Normal 11.0-15.0 [facility] Comment on above: Performed By: #### O BSCRN #### [facility] [address] [place] [address] Dr. Shobha Ruffin Hematocrit (Bld) [Volume fraction] 39.7 % Normal 36.0-48.0 [facility] Comment on above: Performed By: #### O BSCRN #### [facility] [address] [place] [address] Dr. Shobha Ruffin Hemoglobin (Bld) [Mass/Vol] 12.9 g/dL Normal 12.0-16.0 [facility] Comment on above: Performed By: #### O BSCRN #### [facility] [address] [place] [address] Dr. Shobha Ruffin IG # 0.02 10e3/ul Normal 0.00-0.03 [facility] Comment on above: Performed By: #### O BSCRN #### [facility] [address] [place] [address] Dr. Shobha Ruffin IG % 0.3 % Normal 0.0-0.5 [facility] Comment on above: Performed By: #### O BSCRN #### [facility] [address] [place] [address] Dr. Shobha Ruffin LYMPH # 1.7 103/ul Normal 1.2-3.8 [facility] Comment on above: Performed By: #### O BSCRN #### [facility] [address] [place] [address] Dr. Shobha Ruffin Lymphocytes/100 WBC (Bld) 22.2 % Normal 20.5-60.0 [facility] Comment on above: Performed By: #### O BSCRN #### [facility] [address] [place] [address] Dr. Sohbha Ruffin MANUAL DIFF REQ NO Normal [facility] Comment on above: Performed By: #### O BSCRN #### [facility] [address] [place] [address] Dr. Shobha Ruffin MCH (RBC) [Entitic mass] 29.3 pg Normal 26.7-34.0 [facility] Comment on above: Performed By: #### O BSCRN #### [facility] [address] [place] [address] Dr. Shobha Ruffin MCHC (RBC) [Mass/Vol] 32.5 g/dL Normal 29.9-35.2 [facility] Comment on above: Performed By: #### O BSCRN #### [facility] [address] [place] [address] Dr. Shobha Ruffin MCV (RBC) [Entitic vol] 90.2 fL Normal 81.0-99.0 [facility] Comment on above: Performed By: #### O BSCRN #### [facility] [address] [place] [address] Dr. Shobha Ruffin MONO # 0.8 103/ul Normal 0.3-0.8 [facility] Comment on above: Performed By: #### O BSCRN #### [facility] [address] [place] [address] Dr. Shobha Ruffin Monocytes/100 WBC (Bld) 10.5 % Normal 1.7-12.0 [facility] Comment on above: Performed By: #### O BSCRN #### [facility] [address] [place] [address] Dr. Shobha Ruffin NEUT # 4.9 103/ul Normal 1.4-6.5 [facility] Comment on above: Performed By: #### O BSCRN #### [facility] [address] [address] [address] Shobha Ruffin Neutrophils/100 WBC (Bld) 63.5 % Normal 43.0-75.0 [facility] Comment on above: Performed By: #### O BSCRN #### [facility] [address] [address] [address] Shobha Ruffin Platelet mean volume (Bld) [Entitic vol] 8.8 fL Critically low 9.5-13.5 [facility] Comment on above: Performed By: #### O BSCRN #### [facility] [address] [address] [address] Shobha Ruffin PLT 307 103/ul Normal 150-450 [facility] Comment on above: Performed By: #### O BSCRN #### [facility] [address] [place] [address] Dr. Shobha Ruffin RBC 4.40 106/ul Normal 4.20-5.40 [facility] Comment on above: Performed By: #### O BSCRN #### [facility] [address] [place] [address] Dr. Shobha Ruffin WBC 7.8 103/ul Normal 4.0-11.0 [facility] Comment on above: Performed By: #### O BSCRN #### [facility] [address] [place] [address] Dr. Shobha Ruffin LIPID PROFILEon 05-04-2022 CHOL-HDL RATIO NORM SEE BELOW Normal [facility] Comment on above: Result Comment: 3.3 - 4.4 LOW RISK 4.4 - 7.1 AVERAGE RISK 7.1 - 11.0 MODERATE RISK >11.0 HIGH RISK Performed By: #### L IPID, LIVER #### [facility] [address] [address] [address] Shobha Ruffin Cholesterol [Mass/Vol] 296 mg/dL Critically high <=200 [facility] Comment on above: Performed By: #### L IPID, LIVER #### [facility] [address] [place] [address] Dr. Shobha Ruffin Cholesterol in HDL [Mass/Vol] 102 mg/dL Critically high 40-60 [facility] Comment on above: Performed By: #### L IPID, LIVER #### [facility] [address] [address] [address] Shobha Ruffin Cholesterol in LDL [Mass/Vol] 178.6 mg/dL Normal [facility] Comment on above: Performed By: #### L IPID, LIVER #### [facility] [address] [address] [address] Shobha Ruffin Cholesterol.total/Cho lesterol in HDL [Mass ratio] 2.9 {ratio} Normal [facility] Comment on above: Performed By: #### L IPID, LIVER #### [facility] [address] [place] [address] Dr. Shobha Ruffin HDL NORMAL > or = 60 mg/dl - LO W CARDIOVASCULAR RISK <40 mg/dl - HIGH CARDIOVASCULAR RISK Normal [facility] Comment on above: Performed By: #### L IPID, LIVER #### [facility] [address] [place] [address] Dr. Shobha Ruffin LDL CALC NORMAL SEE BELOW Normal [facility] Comment on above: Result Comment: <100 mg/dl OPTIMAL 100 - 129 mg/dl NEAR OR ABOVE OPTIMAL 130 - 159 mg/dl BORDERLINE HIGH 160 - 189 mg/dl HIGH >190 mg/dl VERY HIGH Performed By: #### L IPID, LIVER #### [facility] [address] [place] [address] Dr. Shobha Ruffin Triglyceride [Mass/Vol] 77 mg/dL Normal <=150 [facility] Comment on above: Performed By: #### L IPID, LIVER #### [facility] [address] [place] [address] Dr. Shobha Ruffin VLDL CALC 15.4 mg/dL Normal [facility] Comment on above: Performed By: #### L IPID, LIVER #### [facility] [address] [place] [address] Dr. Shobha Ruffin LIVER PROFILEon 05-04-2022 Albumin [Mass/Vol] 3.6 g/dL Normal 3.4-5.0 [facility] Comment on above: Performed By: #### L IPID, LIVER #### [facility] [address] [address] [address] Shobha Ruffin Albumin/Globulin [Mass ratio] 1.0 {ratio} Normal [facility] Comment on above: Performed By: #### L IPID, LIVER #### [facility] [address] [address] [address] Shobha Ruffin ALP [Catalytic activity/Vol] 58 U/L Normal 46-116 [facility] Comment on above: Performed By: #### L IPID, LIVER #### [facility] [address] [address] [address] Shobha Ruffin ALT [Catalytic activity/Vol] 20 U/L Normal 14-59 [facility] Comment on above: Performed By: #### L IPID, LIVER #### [facility] [address] [address] [address] Shobha Ruffin AST [Catalytic activity/Vol] 16 U/L Normal 15-37 [facility] Comment on above: Performed By: #### L IPID, LIVER #### [facility] [address] [address] [address] Shobha Ruffin BILI, CONJUGATED 0.1 mg/dL Normal 0.0-0.2 [facility] Comment on above: Performed By: #### L IPID, LIVER #### [facility] [address] [address] [address] Shobha Ruffin Bilirubin [Mass/Vol] 0.7 mg/dL Normal 0.2-1.0 [facility] Comment on above: Performed By: #### L IPID, LIVER #### [facility] [address] [address] [address] Shobha Ruffin Globulin (S) [Mass/Vol] 3.5 g/dL Normal [facility] Comment on above: Performed By: #### L IPID, LIVER #### [facility] [address] [address] [address] Shobha Ruffin Protein [Mass/Vol] 7.1 g/dL Normal 6.4-8.2 [facility] Comment on above: Performed By: #### L IPID, LIVER #### [facility] [address] [place] [address] Dr. Shobha Ruffin CALCIUMon 02-08-2022 Calcium [Mass/Vol] 9.1 mg/dL Normal 8.5-10.1 [facility] Comment on above: Performed By: #### R ENAL, URIC, MG #### [facility] [address] [place] [address] Dr. Shobha Ruffin CREATININEon 02-08-2022 Creatinine [Mass/Vol] 0.95 mg/dL Normal 0.55-1.02 [facility] Comment on above: Performed By: #### O BSCRN #### [facility] [address] [place] [address] Dr. Shobha Ruffin EGFR-AF TOGOLESE >60 Normal >=60 [facility] Comment on above: Performed By: #### O BSCRN #### [facility] [address] [place] [address] Dr. Shobha Ruffin EGFR-NON AF TOGOLESE 58 mL/min/1.73m2 Critically low >=60 [facility] Comment on above: Performed By: #### O BSCRN #### [facility] [address] [place] [address] Dr. Shobha Ruffin OCC BLD IMMUNO SCREENon 01-08 OCCULT BLOOD Negative Normal NEGATIVE [facility] Comment on above: Performed By: #### O BSCRN #### [facility] [address] [place] [address] Dr. Shobha Ruffin T4, T3U, FTI LABCORPon 01-27 Free Thyroxine Index 2.2 Normal 1.2-4.9 [facility] Comment on above: Performed By: #### R ENAL, URIC, MG #### [facility] [address] [place] [address] Dr. Shobha Ruffin T3 Uptake 27 % Normal 24-39 [facility] Comment on above: Performed By: #### R ENAL, URIC, MG #### [facility] [address] [place] [address] Dr. Shobha Ruffin T4 [Mass/Vol] 8.0 ug/dL Normal 4.5-12.0 [facility] Comment on above: Performed By: #### R ENAL, URIC, MG #### [facility] [address] [place] [address] Dr. Shobha Ruffin CBC AUTO DIFFon 01-26-2022 BASO # 0.1 103/ul Normal 0.0-0.1 [facility] Comment on above: Performed By: #### R ENAL, URIC, MG #### [facility] [address] [place] [address] Dr. Shobha Ruffin Basophils/100 WBC (Bld) 0.9 % Normal 0.2-2.0 [facility] Comment on above: Performed By: #### R ENAL, URIC, MG #### [facility] [address] [place] [address] Dr. Shobha Ruffin EO # 0.3 103/ul Normal 0.0-0.7 [facility] Comment on above: Performed By: #### R ENAL, URIC, MG #### [facility] [address] [place] [address] Dr. Shobha Ruffin Eosinophils/100 WBC (Bld) 2.8 % Normal 0.9-7.0 [facility] Comment on above: Performed By: #### R ENAL, URIC, MG #### [facility] [address] [place] [address] Dr. Shobha Ruffin Erythrocyte distribution width (RBC) [Ratio] 13.6 % Normal 11.0-15.0 [facility] Comment on above: Performed By: #### R ENAL, URIC, MG #### [facility] [address] [place] [address] Dr. Shobha Ruffin Hematocrit (Bld) [Volume fraction] 35.4 % Critically low 36.0-48.0 [facility] Comment on above: Performed By: #### R ENAL, URIC, MG #### [facility] [address] [place] [address] Dr. Shobha Ruffin Hemoglobin (Bld) [Mass/Vol] 11.5 g/dL Critically low 12.0-16.0 [facility] Comment on above: Performed By: #### R ENAL, URIC, MG #### [facility] [address] [place] [address] Dr. Shobha Ruffin IG # 0.04 10e3/ul Critically high 0.00-0.03 [facility] Comment on above: Performed By: #### R ENAL, URIC, MG #### [facility] [address] [place] [address] Dr. Shobha Ruffin IG % 0.4 % Normal 0.0-0.5 [facility] Comment on above: Performed By: #### R ENAL, URIC, MG #### [facility] [address] [place] [address] Dr. Shobha Ruffin LYMPH # 1.9 103/ul Normal 1.2-3.8 [facility] Comment on above: Performed By: #### R ENAL, URIC, MG #### [facility] [address] [place] [address] Dr. Shobha Ruffin Lymphocytes/100 WBC (Bld) 20.9 % Normal 20.5-60.0 [facility] Comment on above: Performed By: #### R ENAL, URIC, MG #### [facility] [address] [place] [address] Dr. Shobha Ruffin MANUAL DIFF REQ NO Normal [facility] Comment on above: Performed By: #### R ENAL, URIC, MG #### [facility] [address] [place] [address] Dr. Shobha Ruffin MCH (RBC) [Entitic mass] 29.4 pg Normal 26.7-34.0 [facility] Comment on above: Performed By: #### R ENAL, URIC, MG #### [facility] [address] [place] [address] Dr. Shobha Ruffin MCHC (RBC) [Mass/Vol] 32.5 g/dL Normal 29.9-35.2 [facility] Comment on above: Performed By: #### R ENAL, URIC, MG #### [facility] [address] [place] [address] Dr. Shobha Ruffin MCV (RBC) [Entitic vol] 90.5 fL Normal 81.0-99.0 [facility] Comment on above: Performed By: #### R ENAL, URIC, MG #### [facility] [address] [place] [address] Dr. Shobha Ruffin MONO # 0.8 103/ul Normal 0.3-0.8 [facility] Comment on above: Performed By: #### R ENAL, URIC, MG #### [facility] [address] [place] [address] Dr. Shobha Ruffin Monocytes/100 WBC (Bld) 9.2 % Normal 1.7-12.0 [facility] Comment on above: Performed By: #### R ENAL, URIC, MG #### [facility] [address] [place] [address] Dr. Shobha Ruffin NEUT # 5.9 103/ul Normal 1.4-6.5 [facility] Comment on above: Performed By: #### R ENAL, URIC, MG #### [facility] [address] [place] [address] Dr. Shobha Ruffin Neutrophils/100 WBC (Bld) 65.8 % Normal 43.0-75.0 [facility] Comment on above: Performed By: #### R ENAL, URIC, MG #### [facility] [address] [place] [address] Dr. Shobha Ruffin Platelet mean volume (Bld) [Entitic vol] 8.9 fL Critically low 9.5-13.5 [facility] Comment on above: Performed By: #### R ENAL, URIC, MG #### [facility] [address] [place] [address] Dr. Shobha Ruffin PLT 346 103/ul Normal 150-450 [facility] Comment on above: Performed By: #### R ENAL, URIC, MG #### [facility] [address] [place] [address] Dr. Shobha Ruffin RBC 3.91 106/ul Critically low 4.20-5.40 [facility] Comment on above: Performed By: #### R ENAL, URIC, MG #### [facility] [address] [address] [address] Shobha Ruffin WBC 8.9 103/ul Normal 4.0-11.0 [facility] Comment on above: Performed By: #### R ENAL, URIC, MG #### [facility] [address] [place] [address] Dr. Shobha Ruffin GLYCOHEMOGLOBIN A1Con 2021 ADA RECOMMENDATION SEE BELOW Normal [facility] Comment on above: Result Comment: ADA RECOMMENDED LIMIT 4.0 - 6.0 ADA THERAPEUTIC TARGET < 7.0 ACTION SUGGESTED > 7.0 Performed By: #### O BSCRN #### [facility] [address] [place] [address] Dr. Shobha Ruffin Glucose [Mass/Vol] 123 mg/dL Normal [facility] Comment on above: Performed By: #### O BSCRN #### [facility] [address] [place] [address] Dr. Shobha Ruffin HbA1c (Bld) [Mass fraction] 5.9 % Normal 4.5-6.2 [facility] Comment on above: Performed By: #### O BSCRN #### [facility] [address] [place] [address] Dr. Shobha Ruffin IRONon 01-26-2022 Iron [Mass/Vol] 97.0 ug/dL Normal 50.0-170.0 [facility] Comment on above: Performed By: #### R ENAL, URIC, MG #### [facility] [address] [place] [address] Dr. Shobha Ruffin LIPID PROFILEon 01-26-2022 CHOL-HDL RATIO NORM SEE BELOW Normal [facility] Comment on above: Result Comment: 3.3 - 4.4 LOW RISK 4.4 - 7.1 AVERAGE RISK 7.1 - 11.0 MODERATE RISK >11.0 HIGH RISK Performed By: #### R ENAL, URIC, MG #### [facility] [address] [place] [address] Dr. Shobha Ruffin Cholesterol [Mass/Vol] 284 mg/dL Critically high <=200 [facility] Comment on above: Performed By: #### R ENAL, URIC, MG #### [facility] [address] [address] [address] Shobha Ruffin Cholesterol in HDL [Mass/Vol] 84 mg/dL Critically high 40-60 [facility] Comment on above: Performed By: #### R ENAL, URIC, MG #### [facility] [address] [address] [address] Shobha Ruffin Cholesterol in LDL [Mass/Vol] 184.6 mg/dL Normal [facility] Comment on above: Performed By: #### R ENAL, URIC, MG #### [facility] [address] [address] [address] Shobha Ruffin Cholesterol.total/Cho lesterol in HDL [Mass ratio] 3.4 {ratio} Normal [facility] Comment on above: Performed By: #### R ENAL, URIC, MG #### [facility] [address] [address] [address] Shobha Ruffin HDL NORMAL > or = 60 mg/dl - LO W CARDIOVASCULAR RISK <40 mg/dl - HIGH CARDIOVASCULAR RISK Normal [facility] Comment on above: Performed By: #### R ENAL, URIC, MG #### [facility] [address] [address] [address] Shobha Ruffin LDL CALC NORMAL SEE BELOW Normal [facility] Comment on above: Result Comment: <100 mg/dl OPTIMAL 100 - 129 mg/dl NEAR OR ABOVE OPTIMAL 130 - 159 mg/dl BORDERLINE HIGH 160 - 189 mg/dl HIGH >190 mg/dl VERY HIGH Performed By: #### R ENAL, URIC, MG #### [facility] [address] [address] [address] Shobha Ruffin Triglyceride [Mass/Vol] 77 mg/dL Normal <=150 [facility] Comment on above: Performed By: #### R ENAL, URIC, MG #### [facility] [address] [address] [address] Shobha Ruffin VLDL CALC 15.4 mg/dL Normal [facility] Comment on above: Performed By: #### R ENAL, URIC, MG #### [facility] [address] [address] [address] Shobha Ruffin PROF 14(COMP METB)on 022 Albumin [Mass/Vol] 3.5 g/dL Normal 3.4-5.0 [facility] Comment on above: Performed By: #### R ENAL, URIC, MG #### [facility] [address] [address] [address] Shobha Ruffin Albumin/Globulin [Mass ratio] 1.1 {ratio} Normal [facility] Comment on above: Performed By: #### R ENAL, URIC, MG #### [facility] [address] [address] [address] Shobha Ruffin ALP [Catalytic activity/Vol] 79 U/L Normal 46-116 [facility] Comment on above: Performed By: #### R ENAL, URIC, MG #### [facility] [address] [address] [address] Shobha Ruffin ALT [Catalytic activity/Vol] 28 U/L Normal 14-59 [facility] Comment on above: Performed By: #### R ENAL, URIC, MG #### [facility] [address] [address] [address] Shobha Ruffin Anion gap [Moles/Vol] 9.3 mmol/L Normal [facility] Comment on above: Performed By: #### R ENAL, URIC, MG #### [facility] [address] [address] [address] Shobha Ruffin AST [Catalytic activity/Vol] 12 U/L Critically low 15-37 [facility] Comment on above: Performed By: #### R ENAL, URIC, MG #### [facility] [address] [address] [address] Shobha Ruffin Bilirubin [Mass/Vol] 0.6 mg/dL Normal 0.2-1.0 [facility] Comment on above: Performed By: #### R ENAL, URIC, MG #### [facility] [address] [address] [address] Shobha Ruffin Calcium [Mass/Vol] 9.0 mg/dL Normal 8.5-10.1 [facility] Comment on above: Performed By: #### R ENAL, URIC, MG #### [facility] [address] [place] [address] Dr. Shobha Ruffin Chloride [Moles/Vol] 103 mmol/L Normal 98-107 [facility] Comment on above: Performed By: #### R ENAL, URIC, MG #### [facility] [address] [place] [address] Dr. Shobha Ruffin CO2 [Moles/Vol] 28.9 mmol/L Normal 21.0-32.0 [facility] Comment on above: Performed By: #### R ENAL, URIC, MG #### [facility] [address] [place] [address] Dr. Shobha Ruffin Creatinine [Mass/Vol] 1.02 mg/dL Normal 0.55-1.02 [facility] Comment on above: Performed By: #### R ENAL, URIC, MG #### [facility] [address] [place] [address] Dr. Shobha Ruffin EGFR-AF TOGOLESE >60 Normal >=60 [facility] Comment on above: Performed By: #### R ENAL, URIC, MG #### [facility] [address] [place] [address] Dr. Shobha Ruffin EGFR-NON AF TOGOLESE 54 mL/min/1.73m2 Critically low >=60 [facility] Comment on above: Performed By: #### R ENAL, URIC, MG #### [facility] [address] [place] [address] Dr. Shobha Ruffin Globulin (S) [Mass/Vol] 3.3 g/dL Normal [facility] Comment on above: Performed By: #### R ENAL, URIC, MG #### [facility] [address] [place] [address] Dr. Shobha Ruffin Glucose [Mass/Vol] 100 mg/dL Normal 74-106 [facility] Comment on above: Performed By: #### R ENAL, URIC, MG #### [facility] [address] [place], [place] [id number] Dr. Shobha Ruffin Potassium [Moles/Vol] 4.2 mmol/L Normal 3.5-5.1 [facility] Comment on above: Performed By: #### R ENAL, URIC, MG #### [facility] [address] [place] [address] Dr. Shobha Ruffin Protein [Mass/Vol] 6.8 g/dL Normal 6.4-8.2 [facility] Comment on above: Performed By: #### R ENAL, URIC, MG #### [facility] [address] [place] [address] Dr. Shobha Ruffin Sodium [Moles/Vol] 137 mmol/L Normal 136-145 [facility] Comment on above: Performed By: #### R ENAL, URIC, MG #### [facility] [address] [place] [address] Dr. Shobha Ruffin Urea nitrogen [Mass/Vol] 20.0 mg/dL Critically high 7.0-18.0 [facility] Comment on above: Performed By: #### R ENAL, URIC, MG #### [facility] [address] [place] [address] Dr. Shobha Ruffin Urea nitrogen/Creatinine [Mass ratio] 19.6 mg/mg Normal [facility] Comment on above: Performed By: #### R ENAL, URIC, MG #### [facility] [address] [place] [address] Dr. Shobha Ruffin TSHon 01-26-2022 TSH 0.649 uIU/mL Normal 0.358-3.74 0 [facility] Comment on above: Performed By: #### R ENAL, URIC, MG #### [facility] [address] [place] [address] Dr. Shobha Ruffin XR LSPINE MIN 4 [...] ROSA BELLO Date: 2022-01-26 10:35 Normal [facility] Covid-19 PCR (CVDTBH)on SARS-CoV-2 (COVID-19) RNA CONRADO+probe Ql (Unsp spec) Detected Critically abnormal NOT DETECTED [facility] Comment on above: Result Comment: This test is not yet approved or cleared by the [place] FDA. When there are no FDA-approved or cleared tests available, and other criteria are met, FDA can make tests available under an emergency access mechanism called an Emergency Use Authorization (EUA). The EUA for this test is supported by the [place] of Health and Human Service's (HHS's) declaration [...] used). Performed By: #### C [facility] #### [facility] [address] [place] [address] Dr. 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 Normal [facility] PTH INTACTon 11-27-2021 PTH, Intact 36 pg/mL Normal 15-65 [facility] Comment on above: Performed By: #### P THINT #### [facility] [address] [place] [address] Dr. Shobha Ruffin FERRITINon 11-26-2021 Ferritin [Mass/Vol] 122.0 ng/mL Normal 8.0-252.0 [facility] Comment on above: Performed By: #### O BSCRN #### [facility] [address] [place] [address] Dr. Shobha Ruffin HEMOGRAM AND PLATELon 2021 Hematocrit (Bld) [Volume fraction] 36.0 % Normal 36.0-48.0 [facility] Comment on above: Performed By: #### H H #### [facility] [address] [place] [address] Dr. Shobha Ruffin Hemoglobin (Bld) [Mass/Vol] 11.8 g/dL Critically low 12.0-16.0 [facility] Comment on above: Performed By: #### H H #### [facility] [address] [place] [address] Dr. Shobha Ruffin MCH (RBC) [Entitic mass] 29.7 pg Normal 26.7-34.0 [facility] Comment on above: Performed By: #### H H #### [facility] [address] [place] [address] Dr. Shobha Ruffin MCHC (RBC) [Mass/Vol] 32.8 g/dL Normal 29.9-35.2 [facility] Comment on above: Performed By: #### H H #### [facility] [address] [place] [address] Dr. Shobha Ruffin MCV (RBC) [Entitic vol] 90.7 fL Normal 81.0-99.0 [facility] Comment on above: Performed By: #### H H #### [facility] [address] [place] [address] Dr. Shobha Ruffin PLT 417 103/ul Normal 150-450 [facility] Comment on above: Performed By: #### H H #### [facility] [address] [place] [address] Dr. Shobha Ruffin RBC 3.97 106/ul Critically low 4.20-5.40 [facility] Comment on above: Performed By: #### H H #### [facility] [address] [place] [address] Dr. Shobha Ruffin WBC 7.9 103/ul Normal 4.0-11.0 [facility] Comment on above: Performed By: #### H H #### [facility] [address] [place] [address] Dr. Shobha Ruffin IRON AND TIBCon 11-26-2021 % SATURATION 28.2 % Normal [facility] Comment on above: Performed By: #### O BSCRN #### [facility] [address] [place] [address] Dr. Shobha Ruffin Iron [Mass/Vol] 83.0 ug/dL Normal 50.0-170.0 [facility] Comment on above: Performed By: #### O BSCRN #### [facility] [address] [place] [address] Dr. Shobha Ruffin TIBC DIRECT 294.0 ug/dL Normal 250.0-450. 0 [facility] Comment on above: Performed By: #### O BSCRN #### [facility] [address] [place] [address] Dr. Shobha Ruffin MAGNESIUMon 11-26-2021 Magnesium [Mass/Vol] 1.8 mg/dL Normal 1.8-2.4 [facility] Comment on above: Performed By: #### R ENAL, URIC, MG #### [facility] [address] [place] [address] Dr. Shobha Ruffin RENAL FUNCTION PANELon 11-26 Albumin [Mass/Vol] 3.6 g/dL Normal 3.4-5.0 [facility] Comment on above: Performed By: #### R ENAL, URIC, MG #### [facility] [address] [place] [address] Dr. Shobha Ruffin Calcium [Mass/Vol] 9.3 mg/dL Normal 8.5-10.1 [facility] Comment on above: Performed By: #### R ENAL, URIC, MG #### [facility] [address] [place] [address] Dr. Shobha Ruffin Chloride [Moles/Vol] 99 mmol/L Normal 98-107 [facility] Comment on above: Performed By: #### R ENAL, URIC, MG #### [facility] [address] [place] [address] Dr. Shobha Ruffin CO2 [Moles/Vol] 28.6 mmol/L Normal 21.0-32.0 [facility] Comment on above: Performed By: #### R ENAL, URIC, MG #### [facility] [address] [place] [address] Dr. Shobha Ruffin Creatinine [Mass/Vol] 1.18 mg/dL Critically high 0.55-1.02 [facility] Comment on above: Performed By: #### R ENAL, URIC, MG #### [facility] [address] [place] [address] Dr. Shobha Ruffin EGFR-AF TOGOLESE 55 mL/min/1.73m2 Critically low >=60 [facility] Comment on above: Performed By: #### R ENAL, URIC, MG #### [facility] [address] [place] [address] Dr. Shobha Rfufin EGFR-NON AF TOGOLESE 45 mL/min/1.73m2 Critically low >=60 [facility] Comment on above: Performed By: #### R ENAL, URIC, MG #### [facility] [address] [address] [address] Shobha Ruffin Glucose [Mass/Vol] 90 mg/dL Normal 74-106 [facility] Comment on above: Performed By: #### R ENAL, URIC, MG #### [facility] [address] [place] [address] Dr. Shobha Ruffin Phosphate [Mass/Vol] 4.8 mg/dL Critically high 2.6-4.7 [facility] Comment on above: Performed By: #### R ENAL, URIC, MG #### [facility] [address] [place] [address] Dr. Shobha Ruffin Potassium [Moles/Vol] 4.1 mmol/L Normal 3.5-5.1 [facility] Comment on above: Performed By: #### R ENAL, URIC, MG #### [facility] [address] [place] [address] Dr. Shobha Ruffin Sodium [Moles/Vol] 136 mmol/L Normal 136-145 [facility] Comment on above: Performed By: #### R ENAL, URIC, MG #### [facility] [address] [place] [address] Dr. Shobha Ruffin Urea nitrogen [Mass/Vol] 20.0 mg/dL Critically high 7.0-18.0 [facility] Comment on above: Performed By: #### R ENAL, URIC, MG #### [facility] [address] [place] [address] Dr. Shobha Ruffin UA RANDOM W/MICROSCOPICon BACTERIA TRACE Abnormal NONE SEEN [facility] Comment on above: Performed By: #### R ENAL, URIC, MG #### [facility] [address] [place] [address] Dr. Shobha Ruffin Bilirubin Ql (U) Negative Normal NEGATIVE [facility] Comment on above: Performed By: #### R ENAL, URIC, MG #### [facility] [address] [place] [address] Dr. Shobha Ruffin CAST SEEN Abnormal NONE SEEN [facility] Comment on above: Performed By: #### R ENAL, URIC, MG #### [facility] [address] [place] [address] Dr. Shobha Ruffin Clarity (U) CLEAR Normal CLEAR [facility] Comment on above: Performed By: #### R ENAL, URIC, MG #### [facility] [address] [place] [address] Dr. Shobha Ruffin Color (U) YELLOW Normal YELLOW [facility] Comment on above: Performed By: #### R ENAL, URIC, MG #### [facility] [address] [place] [address] Dr. Shobha Ruffin Crystals LM Nom (Urine sed) NONE SEEN Normal NONE SEEN [facility] Comment on above: Performed By: #### R ENAL, URIC, MG #### [facility] [address] [place] [address] Dr. Shobha Ruffin Epithelial cells LM Ql (Urine sed) FEW Abnormal NONE SEEN /RARE [facility] Comment on above: Performed By: #### R ENAL, URIC, MG #### [facility] [address] [place] [address] Dr. Shobha Ruffin Glucose Ql (U) Negative Normal NEGATIVE [facility] Comment on above: Performed By: #### R ENAL, URIC, MG #### [facility] [address] [place] [address] Dr. Shobha Ruffin Hemoglobin Ql (U) Negative Normal NEGATIVE [facility] Comment on above: Performed By: #### R ENAL, URIC, MG #### [facility] [address] [place] [address] Dr. Shobha Ruffin HYALINE CAST RARE Normal [facility] Comment on above: Performed By: #### R ENAL, URIC, MG #### [facility] [address] [place] [address] Dr. Shobha Ruffin Ketones Ql (U) TRACE Abnormal NEGATIVE [facility] Comment on above: Performed By: #### R ENAL, URIC, MG #### [facility] [address] [place] [address] Dr. Shobha Ruffin LEUKOCYTES TRACE Abnormal NEGATIVE [facility] Comment on above: Performed By: #### R ENAL, URIC, MG #### [facility] [address] [address] [address] Shobha Ruffin MUCOUS TRACE Abnormal NONE SEEN [facility] Comment on above: Performed By: #### R ENAL, URIC, MG #### [facility] [address] [address] [address] Shobha Ruffin Nitrite Ql (U) Negative Normal NEGATIVE [facility] Comment on above: Performed By: #### R ENAL, URIC, MG #### [facility] [address] [address] [address] Shobha Ruffin pH (U) 7.0 [pH] Normal 5-9 [facility] Comment on above: Performed By: #### R ENAL, URIC, MG #### [facility] [address] [place] [address] Dr. Shobha Ruffin RBC 0-2 Normal 0-2 [facility] Comment on above: Performed By: #### R ENAL, URIC, MG #### [facility] [address] [place] [address] Dr. Shobha Ruffin SPEC GRAVITY 1.015 Normal 1.005-<=1. 025 [facility] Comment on above: Performed By: #### R ENAL, URIC, MG #### [facility] [address] [place] [address] Dr. Shobha Ruffin UA PROTEIN Negative Normal NEGATIVE/ TRACE [facility] Comment on above: Performed By: #### R ENAL, URIC, MG #### [facility] [address] [place] [address] Dr. Shobha Ruffin Urobilinogen Qn (U) 1.0 {Raul'U}/dL Normal 0.2 - 1. 0 [facility] Comment on above: Performed By: #### R ENAL, URIC, MG #### [facility] [address] [place] [address] Dr. Shobha Ruffin WBC 2-5 Abnormal NONE SEEN [facility] Comment on above: Performed By: #### R ENAL, URIC, MG #### [facility] [address] [address] [address] Shobha Ruffin URIC ACID SERUMon 11-26-2021 Urate [Mass/Vol] 3.2 mg/dL Normal 2.6-6.0 [facility] Comment on above: Performed By: #### R ENAL, URIC, MG #### [facility] [address] [address] [address] Shobha Ruffin URINE T PROTEIN CREAT RATIOo n 11-26-2021 Protein (U) [Mass/Vol] 24.2 mg/dL Critically high <=12.0 [facility] Comment on above: Performed By: #### R ENAL, URIC, MG #### [facility] [address] [place] [address] Dr. Shobha Ruffin UR PROT CREAT RAT 0.16 Normal [facility] Comment on above: Performed By: #### R ENAL, URIC, MG #### [facility] [address] [place] [address] Dr. Shobha Ruffin URINE CREAT 152.18 mg/dL Normal 20.00-300. 00 [facility] Comment on above: Performed By: #### R ENAL, URIC, MG #### [facility] [address] [place] [address] Dr. Shobha Ruffin VITAMIN D 25 OHon 11-26-2021 VIT D 25-OH 38.4 ng/mL Normal [facility] Comment on above: Performed By: #### O BSCRN #### [facility] [address] [place] [address] Dr. Shobha Ruffin VIT D RANGES SEE BELOW Normal [facility] Comment on above: Result Comment: <20 ng/mL Vit D deficient 20 - <30 ng/mL Vit D insufficient 30 - 100 ng/mL Vit D sufficient >100 ng/mL Potential Toxicity Performed By: #### O BSCRN #### [facility] [address] [place] [address] Dr. Shobha Ruffin Basic metabolic 2000 panelon 11-17-2021 Anion gap [Moles/Vol] 14 mmol/L Normal 9-18 [facility] Comment on above: Order Comment: Speci men Type: BLOOD SPECIMEN Ordering Facility: [facility] Address: [address] [place] [address] Performed By: #### 1 9123-9, 88773-1, 2776-05 #### [facility] CLIA [id number] [address] [place] [address] [place] Calcium [Mass/Vol] 9.6 mg/dL Normal 8.5-10.2 [facility] Comment on above: Order Comment: Speci men Type: BLOOD SPECIMEN Ordering Facility: [facility] Address: [address] [place] [address] Performed By: #### 1 9123-9, 80275-3, 2776-05 #### [facility] CLIA [id number] [address] [place] [address] [place] Chloride [Moles/Vol] 95 mmol/L Low 97-105 [facility] Comment on above: Order Comment: Speci men Type: BLOOD SPECIMEN Ordering Facility: [facility] Address: [address] [place] [address] Performed By: #### 1 9123-9, 74807-7, 2776-05 #### [facility] CLIA [id number] [address] [place] [address] [place] CO2 [Moles/Vol] 23 mmol/L Normal 22-30 [facility] Comment on above: Order Comment: Speci men Type: BLOOD SPECIMEN Ordering Facility: [facility] Address: [address] [place], [place] [id number] Performed By: #### 1 9123-9, 04133-1, 2776-05 #### [facility] CLIA [id number] [address] [place] [address] [place] Creatinine [Mass/Vol] 0.91 mg/dL Normal 0.58-0.96 [facility] Comment on above: Order Comment: Speci men Type: BLOOD SPECIMEN Ordering Facility: [facility] Address: [address] [place], [place] [id number] Performed By: #### 1 9123-9, 85614-4, 2776- #### [facility] CLIA [id number] ESTIMATED GLOMERULAR FILTRATION RATE 69 mL/min/1.73m??? Normal >=60 [facility] Comment on above: Order Comment: Param jarquin Type: BLOOD SPECIMEN Ordering Facility: [facility] Address: [address] [place] [address] Result Comment: Gabriela mated Glomerular Filtration Rate [...] actual GFR. Performed By: #### 1 9123-9, 29596-6, 2776- #### [facility] CLIA [id number] [place] [address] [place] [facility] Glucose [Mass/Vol] 110 mg/dL High 74-99 [facility] Comment on above: Order Comment: Param jarquin Type: BLOOD SPECIMEN Ordering Facility: [facility] Address: [address] [place] [address] Result Comment: The [place] Diabetes Association (ADA) provides guidance for cutoff [...] Standards of Medical Care in Diabetes 2016, [place] [employer]. Diabetes Care. 2016.39(Suppl 1). Performed By: #### 1 9123-9, 33359-4, 277-1 #### [facility] CLIA [id number] [address] [place] [address] [place] Potassium [Moles/Vol] 3.6 mmol/L Low 3.7-5.1 [facility] Comment on above: Order Comment: Speci men Type: BLOOD SPECIMEN Ordering Facility: [facility] Address: [address] [place] [address] Performed By: #### 1 9123-9, 93056-7, 7- #### [facility] CLIA [id number] [address] [place] [address] [place] Sodium [Moles/Vol] 132 mmol/L Low 136-144 [facility] Comment on above: Order Comment: Speci men Type: BLOOD SPECIMEN Ordering Facility: [facility] Address: [address] [place] [address] Performed By: #### 1 9123-9, 42159-9, 2776- #### [facility] CLIA [id number] [address] [place] [address] [place] Urea nitrogen [Mass/Vol] 13 mg/dL Normal - [facility] Comment on above: Order Comment: Speci men Type: BLOOD SPECIMEN Ordering Facility: [facility] Address: [address] [place] [address] Performed By: #### 1 9123-9, 48989-6, 2776- #### [facility] CLIA [id number] [address] [place] [address] [place] CBC W Auto Differential pane l (Bld)on 11-17-2021 Basophils (Bld) [#/Vol] 10*3/uL Normal <0.11 [facility] Comment on above: Order Comment: Speci men Type: BLOOD SPECIMENOrdering Facility: [facility] Address: [address] [place] [address] Performed By: #### 5 7021-8 ####[facility] [id number] [address] [place] Basophils/100 WBC (Bld) 0.1 % Normal [facility] Comment on above: Order Comment: Speci men Type: BLOOD SPECIMENOrdering Facility: [facility] Address: [address] [place] [address] Performed By: #### 5 7021-8 ####[facility] [id number] [place] [address] [place] Differential cell count method Nom (Bld) Auto Normal [facility] Comment on above: Order Comment: Speci men Type: BLOOD SPECIMENOrdering Facility: [facility] Address: [address] [place] [address] Performed By: #### 5 7021-8 ####[facility] LABORATORYCLIA [id number] [place] [address] [place] Eosinophils (Bld) [#/Vol] 10*3/uL Normal <0.46 [facility] Comment on above: Order Comment: Speci men Type: BLOOD SPECIMENOrdering Facility: [facility] Address: [address] [place] [address] Performed By: #### 5 7021-8 ####[facility]ORATORYCLIA [id number] [place] [address] [place] Eosinophils/100 WBC (Bld) 0.0 % Normal [facility] Comment on above: Order Comment: Speci men Type: BLOOD SPECIMENOrdering Facility: [facility] Address: [address] [place] [address] Performed By: #### 5 7021-8 ####[facility] LABORATORYCLIA [id number] [address] [place] Erythrocyte distribution width (RBC) [Ratio] 12.6 % Normal 11.5-15.0 [facility] Comment on above: Order Comment: Speci men Type: BLOOD SPECIMENOrdering Facility: [facility] Address: [address] [place] [address] Performed By: #### 5 7021-8 ####[facility] LABORATORYCLIA [id number] [address] [place] Hematocrit (Bld) [Volume fraction] 39.9 % Normal 36.0-46.0 [facility] Comment on above: Order Comment: Speci men Type: BLOOD SPECIMENOrdering Facility: [facility] Address: [address] [place] [address] Performed By: #### 5 7021-8 ####[facility] LABORATORYCLIA [id number] [address] [place] Hemoglobin (Bld) [Mass/Vol] 13.4 g/dL Normal 11.5-15.5 [facility] Comment on above: Order Comment: Speci men Type: BLOOD SPECIMENOrdering Facility: [facility] Address: [address] [place] [address] Performed By: #### 5 7021-8 ####[facility] LABORATORYCLIA [id number] [address] IMMATURE GRAN % 0.4 % Normal [facility] Comment on above: Order Comment: Speci men Type: BLOOD SPECIMENOrdering Facility: [facility] Address: [address] [place] [address] Performed By: #### 5 7021-8 ####[facility] LABORATORYCLIA [id number] [address] IMMATURE GRAN ABS 0.04 k/uL Normal <0.10 [facility] Comment on above: Order Comment: Speci men Type: BLOOD SPECIMENOrdering Facility: [facility] Address: [address] [place] [address] Performed By: #### 5 7021-8 ####[facility] LABORATORYCLIA [id number] [address] [place] Lymphocytes (Bld) [#/Vol] 1.25 10*3/uL Normal 1.00-4.00 [facility] Comment on above: Order Comment: Speci men Type: BLOOD SPECIMENOrdering Facility: [facility] Address: [address] [place] [address] Performed By: #### 5 7021-8 ####[facility] LABORATORYCLIA [id number] [address] [place] Lymphocytes/100 WBC (Bld) 11.6 % Normal [facility] Comment on above: Order Comment: Speci men Type: BLOOD SPECIMENOrdering Facility: [facility] Address: [address] [place] [address] Performed By: #### 5 7021-8 ####[facility] LABORATORYCLIA [id number] [address] MCH (RBC) [Entitic mass] 29.4 pg Normal 26.0-34.0 [facility] Comment on above: Order Comment: Speci men Type: BLOOD SPECIMENOrdering Facility: [facility] Address: [address] [place] [address] Performed By: #### 5 7021-8 ####[facility] LABORATORYCLIA [id number] [address] MCHC (RBC) [Mass/Vol] 33.6 g/dL Normal 30.5-36.0 [facility] Comment on above: Order Comment: Speci men Type: BLOOD SPECIMENOrdering Facility: [facility] Address: [address] [place] [address] Performed By: #### 5 7021-8 ####[facility] LABORATORYCLIA [id number] [address] [place] MCV (RBC) [Entitic vol] 87.5 fL Normal 80.0-100.0 [facility] Comment on above: Order Comment: Speci men Type: BLOOD SPECIMENOrdering Facility: [facility] Address: [address] [place] [address] Performed By: #### 5 7021-8 ####[facility] LABORATORYCLIA [id number] [address] [place] Monocytes (Bld) [#/Vol] 1.20 10*3/uL High <0.87 [facility] Comment on above: Order Comment: Speci men Type: BLOOD SPECIMENOrdering Facility: [facility] Address: [address] [place] [address] Performed By: #### 5 7021-8 ####[facility] LABORATORYCLIA [id number] [place] [address] [place] Monocytes/100 WBC (Bld) 11.1 % Normal [facility] Comment on above: Order Comment: Speci men Type: BLOOD SPECIMENOrdering Facility: [facility] Address: [address] [place] [address] Performed By: #### 5 7021-8 ####[facility] LABORATORYCLIA [id number] [place] [address] [place] Neutrophils (Bld) [#/Vol] 8.32 10*3/uL High 1.45-7.50 [facility] Comment on above: Order Comment: Speci men Type: BLOOD SPECIMENOrdering Facility: [facility] Address: [address] [place] [address] Performed By: #### 5 7021-8 ####[facility] LABORATORYCLIA [id number] [place] [address] [place] Neutrophils/100 WBC (Bld) 76.8 % Normal [facility] Comment on above: Order Comment: Speci men Type: BLOOD SPECIMENOrdering Facility: [facility] Address: [address] [place] [address] Performed By: #### 5 7021-8 ####[facility] LABORATORYCLIA [id number] [place] [address] [place] Nucleated RBC (Bld) [#/Vol] 10*3/uL Normal <0.01 [facility] Comment on above: Order Comment: Speci men Type: BLOOD SPECIMENOrdering Facility: [facility] Address: [address] [place] [address] Performed By: #### 5 7021-8 ####[facility] LABORATORYCLIA [id number] [place] [address] [place] Nucleated RBC/100 WBC (Bld) [Ratio] 0.0 /100 WBC Normal [facility] Comment on above: Order Comment: Speci men Type: BLOOD SPECIMENOrdering Facility: [facility] Address: [address] [place] [address] Performed By: #### 5 7021-8 ####[facility]ORATORYCLIA [id number] [place] [id number] [place] Platelet mean volume (Bld) [Entitic vol] 9.6 fL Normal 9.0-12.7 [facility] Comment on above: Order Comment: Speci men Type: BLOOD SPECIMENOrdering Facility: [facility] Address: [address] [place] [address] Performed By: #### 5 7021-8 ####[facility]ORATORYCLIA [id number] [place] [address] [place] Platelets (Bld) [#/Vol] 333 10*3/uL Normal 150-400 [facility] Comment on above: Order Comment: Speci men Type: BLOOD SPECIMENOrdering Facility: [facility] Address: [address] [place] [address] Performed By: #### 5 7021-8 ####[facility]ORATORYCLIA [id number] [place] [address] [place] RBC (Bld) [#/Vol] 4.56 10*6/uL Normal 3.90-5.20 [facility] Comment on above: Order Comment: Speci men Type: BLOOD SPECIMENOrdering Facility: [facility] Address: [address] [place] [address] Performed By: #### 5 7021-8 ####[facility]ORATORYCLIA [id number] [place] [address] [place] WBC (Bld) [#/Vol] 10.82 10*3/uL Normal 3.70-11.00 [facility] Comment on above: Order Comment: Speci men Type: BLOOD SPECIMENOrdering Facility: [facility] Address: [address] [place] [address] Performed By: #### 5 7021-8 ####[facility] LABORATORYCLIA [id number] [place] [id number] [facility] [place] CNDSon 11-17-2021 CNDS HNO ID: [id number] Author: Zhane Rasmussen MD Service: General Surgery Author Type: Resident Type: Discharge Summary Filed: 11/17/2021 1:01 PM Note Text: Attestation signed by Atif Mendez MD at 11/19/2021 12:38 PM DISCHARGE SUMMARY PATIENT NAME: Emily Goode ADMISSION DATE: 11/16/2021 DISCHARGE DATE: 11/17/2021 [...] performed HOSPITAL COURSE: You were admitted to [facility] on 11/16/2021 to undergo the above listed [...] MG TA (more content not included)... Normal [facility] Magnesium SerPl-mCncon 11-17 Magnesium [Mass/Vol] 1.8 mg/dL Normal 1.7-2.3 [facility] Comment on above: Order Comment: Speci men Type: BLOOD SPECIMENOrdering Facility: [facility] Address: [address] [place] [address] Performed By: #### 1 9123-9, 13922-0, 2777-1 ####[facility] LABORATORYCLIA [id number] [place] [address] [place] NURSING PROGon 11-17-2021 NURSING PROG HNO ID: [id number] Author: Zakia Champagne RN Service: Nursing Author Type: Registered Nurse Type: Nursing Progress Note Filed: 11/17/2021 10:17 AM Note Text: Nursing Progress Note Patient Name: Emily Goode Patient [facility]: [facility]C33/AV4B-11 Daily Note: 0830: Pt AANDOx3. VSS. RA. Pt up with standby assist to the bathroom to void. Pt up and ambulated in the halls, standby, steady gait. Abdomen tender, bowel sounds hypoactive, no flatus yet. No complaints of nausea. Diet advanced to clear liquids. 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 Pain 3/10, manageable at this time. Encouraged to use IC. Call light in reach. This note was completed by: Zakia Champagne [facility] PT EDon 11-17-2021 PT ED HNO ID: [id number] Author: Kat Pitt DTR Service: Nutrition Therapy Author Type: Vp Revenue Cycle Type: Patient Education Filed: 11/17/2021 11:12 AM [...] minutes SIGNATURE: Kat Pitt DTR PATIENT NAME: Emily Goode DATE: November 17, 2021 TIME: 11:08 AM PAGER: [facility] Phosphate SerPl-mCncon 11-17 Phosphate [Mass/Vol] 3.7 mg/dL Normal 2.7-4.8 [facility] Comment on above: Order Comment: Speci men Type: BLOOD SPECIMENOrdering Facility: [facility] Address: [address] [place] [address] Performed By: #### 1 9123-9, 96553-4, 2777-1 ####[facility] LABORATORYCLIA [id number] [place] [address] [place] ANES POSTPROC EVALon 022 ANES POSTPROC EVAL HNO ID: [id number] Author: Julian Dotson MD Service: Anesthesiology Author [...] Documentation SIGNATURE: Julian Dotson MD PATIENT NAME: Emily Goode DATE: November 16, 2021 TIME: 3:25 PM CSN: [id number] [facility] ANES PRE-OPon 11-16-2021 ANES PRE-OP HNO ID: [id number] Author: Julian Dotson MD Service: Anesthesiology Author [...] have interviewed and (more content not included)... [facility] BRIEF OP NOTon 11-16-2021 BRIEF OP NOT HNO ID: [id number] Author: Don Minor MD Service: General Surgery Author Type: Resident Type: Brief Op Note Filed: 11/16/2021 2:35 PM Note Text: GENERAL SURGERY BRIEF OP NOTE LOG ID: [id number] Surgery/Procedure Date: 11/16/2021 Incision/Procedure Start Time: 12:11 PM Incision Close/Procedure End Time: 2:32 PM Surgeon(s) and Baking Assistant(s): Surgeon(s) and Role: * Atif Mendez MD [...] Same SIGNATURE: Don Minor MD PATIENT NAME: Emily Goode DATE: November 16, 2021 TIME: 2:32 PM PAGER/CONTACT #: [phone] [facility] HISTORY PHYSICALon 2 HISTORY PHYSICAL HNO ID: [id number] Author: Don Minor MD Service: General Surgery [...] . SIGNATURE: Don Minor MD PATIENT NAME: Emily Goode DATE: November 16, 2021 TIME: 10:54 AM Normal [facility] NURSING PROGon 11-16-2021 NURSING PROG HNO ID: [id number] Author: Renetta Quintana RN Service: Nursing Author Type: Registered Nurse Type: Nursing Progress Note Filed: 11/16/2021 4:23 PM Note Text: Nursing Progress Note Patient Name: Emily Goode [address] Location: [address] Transfer Note: Patient transferred into room/unit pk3-333 in stable condition. Actions taken: No futher actions taken at this time. Will continue to monitor and check with patient. This note was completed by: Renetta Quintana [facility] NURSING PROG HNO ID: [id number] Author: Arcelia Leal RN Service: Nursing Author Type: Registered Nurse Type: Nursing Progress Note Filed: 11/16/2021 11:08 AM Note Text: PATIENT EDUCATION TOPIC: PROCEDURE / SURGERY: Pre-op Teaching: Protocols PATIENT NAME: Emily Goode PATIENT LOCATION: [facility] OR POOL/[facility] OR [...] (RECOMMENDATION): None Electronically Signed By: Arcelia Leal [facility] OPERATIVE NOon 11-16-2021 OPERATIVE NO HNO ID: [id number] Author: Atif Mendez MD Service: General Surgery Author Type: Physician Type: Operative Report Filed: 11/23/2021 6:07 PM Note Text: [facility] - Operative Report EMILY GODOE : 1950 AGE: 70. SEX: F PATIENT TYPE: I HOSP SVC: GENS LOCATION: [facility] ATTENDING PHYSICIAN: Atif Mendez MD CSN NUMBER: [id number] DATE OF SURGERY/PROCEDURE: 11/16/2021 INCISION/PROCEDURE START TIME: 12:11 PM INCISION CLOSE/PROCEDURE END TIME: 2:27 PM PREOPERATIVE DIAGNOSIS: Paraesophageal hernia. POSTOPERATIVE DIAGNOSIS: 1. Paraesophageal hernia. 2. Short esophagus. SURGEON: Atif Mendez MD BARKER PEELER: Don Pérez MD SURGERY/PROCEDURE: 1. Laparoscopic repair [...] a fundectomy was subsequently performed. 3. A 58-Cypriot bougie was used to guide the size [...] we decided to perform a fundectomy. A 58-Cypriot bougie was passed in the esophagus into [...] complications noted. Because the patient is a Latter day, a Tisseel was used to spray in the operative bed. The 12 mm extraction port site was closed using a bnzmpe-hv-lfnlj stitch using Vicryl. The other 12 mm [...] in throughout the operation. Atif Mendez MD TA:[id number] Normal [facility] SURGICAL PATHOLOGYon 022 CASE REPORT Normal [facility] Comment on above: Order Comment: Speci men Type: TISSUE SPECIMENOrdering Facility: [facility] Address: [address] [place], [place] [id number] Result Comment: Surg [facility] Pathology Report Case: [id number] Authorizing Provider: Atif Mendez MD Collected: 11/16/2021 02:11 PM Ordering Location: [facility] Received: 11/16/2021 03:29 PM Operating Room Pathologist: Alba Neal MD Specimen: STOMACH RESECTION, Fundectomy Performed By: #### S ####[facility] LABCLIA [id number] [address] LABORATORYCLIA [id number] [address] FINAL DIAGNOSIS Normal [facility] Comment on above: Order Comment: Speci men Type: TISSUE SPECIMENOrdering Facility: [facility] Address: [address] [place], [place] [id number] Result Comment: Stom ach, excision: - Portion of stomach with fundic gland polyps. - No morphologic evidence of Helicobacter pylori microorganisms. Performed By: #### S ####[facility] LABCLIA [id number] [address] LABORATORYCLIA [id number] [address] FINAL PERFORMING LAB Normal [facility] Comment on above: Order Comment: Speci men Type: TISSUE SPECIMENOrdering Facility: [facility] Address: [address] [place], [place] [id number] Result Comment: Diag nostic interpretation performed at [facility], [address] [place] [address] CLIA# [id number] Regeneration Operator: Fer Avalos M.D. Performed By: #### S ####[facility] LABCLIA [id number] [address] LABORATORYCLIA [id number] [address] GROSS DESCRIPTION Normal [facility] Comment on above: Order Comment: Speci men Type: TISSUE SPECIMENOrdering Facility: [facility] Address: [address] [place], [place] [address] Result Comment: A. S TOMACH RESECTION. Received [...] The serosal surface is oates and smooth. Pencil Inspector sections are submitted as follows: A1 3 polyps totally submitted, A2 2 polyps totally submitted, A3 2 polyps totally submitted, A4 uninvolved gastric mucosa. BF November 17, 2021 9:13 AM Gross examination performed at [facility], [address] [place] [address] CLIA # [id number] Performed By: #### S ####[facility] LABCLIA [id number] [place] [address] [place] [facility] LABORATORYCLIA [id number] [place] [address] [place] SARS-CoV-2 RNA Resp Ql CONRADO+p robeon 11-13-2021 SARS-CoV-2 (COVID-19) RNA CONRADO+probe Ql (Resp) COVID 19 RESULT: SARS-CoV-2 (Agent of COVID-19) Not Detected by RT-PCR or equivalent method. This test was developed and its performance characteristics determined by [facility]'s [facility] Pathology [facility] [place]. This test has been authorized by FDA under an Emergency Use Authorization (EUA). This test has been validated in accordance with the FDA's Guidance Document Policy for Diagnostics Testing in Laboratories Certified to Perform High Complexity Testing under CLIA prior to Emergency use Authorization for Coronavirus Disease 2019 during the Public Health Emergency issued on July 07, 2019. Test performed by [facility], [facility] Pathology [facility] [place], [address] [place] [address]. Normal [facility] Comment on above: Performed By: #### 9 4500-6 ####[facility] LABCLIA [id number] [address] [place] CNOVon 11-12-2021 CNOV Office Visit ([id number] ) EMILY GOODE ([id number]) 1950 F Date Time Provider Department 11/12/21 11:30 AM ATIF MENDEZ [id number] During your visit today, we recorded the following information about you: Temperature Pulse Blood pressure Weight 97.4 degrees 62/minute 140/63 78.5 kg Height 1.6 m Atif Mendez MD 11/12/2021 1:39 PM Signed SURGERY PREOPERATIVE VISIT NOTE Name: Emily Goode Medical Record: [id number] Encounter No.: [id number] Emily Goode is a 70 year old female seen in surgery clinic today for their final preoperative assessment. INTERVAL NOTE: Patient needed to discuss regarding surgery. She is currently scheduled for a paraesophageal hernia repair. 10/21/2021 CT A/P 10/16/2021 esophageal manometry View External Imaging - Miscellaneous Imaging [ID [id number]] 10/07/2021 UGI Scan on 10/27/2021 ?8:25 AM by External Provider: GI BMI 31 PLANNED PROCEDURE: Paraesophageal hernia repair, possible Monico fundoplication. Patient is a Latter day. We have discussed regarding not doing a fundoplication if risk of recurrence is assessed to be on the higher side intraoperatively. PAST MEDICAL HISTORY: PAST MEDICAL HISTORY Diagnosis Date - Congenital hydrocephalus (HCC) s/p TOY MAKER shunt - Essential hypertension - ADITI (obstructive sleep apnea) - Patient is Latter day PAST SURGICAL HISTORY: PAST SURGICAL HISTORY Procedure Laterality Date - APPENDECTOMY - COLONOSCOPY - EGD - HYSTERECTOMY HX 2008 - PAST SURGICAL HISTORY OF 2012 coil embolization for right renal aneurysm( [place]) - PAST SURGICAL HISTORY OF 2006 TOY MAKER shunt - PAST SURGICAL HISTORY OF partial [...] complications includ (more content not included)... Normal [facility] ECHOon 11-06-2021 Echocardiography Echocardiography Rep ort: Transthoracic Echo [facility] Date of service: 11/06/2021 10:21:38 AM DOUGH MIXER Ordering physician: DOROTHY SPARROW Indication: Pre-op (non cardiac), murmur Technologist: Laura Ramirez Interpreting physician: Doris Ratliff MD PATIENT: Name: MS. EMILY GOODE : 1950 Age: 70 years Gender: [...] * * * Final * * * [id number] ngoDynamicsSISUID Normal [facility] CBC panel Auto (Bld)on 11-03 Erythrocyte distribution width (RBC) [Ratio] 12.5 % Normal 11.5-15.0 [facility] Comment on above: Order Comment: Speci men Type: BLOOD SPECIMENOrdering Facility: [facility] Address: [address] [place] [address] Performed By: #### 5 8410-2 ####[facility] LABCLIA [id number] [place] [address] [place] Hematocrit (Bld) [Volume fraction] 36.7 % Normal 36.0-46.0 [facility] Comment on above: Order Comment: Speci men Type: BLOOD SPECIMENOrdering Facility: [facility] Address: [address] [place] [address] Performed By: #### 5 8410-2 ####[facility] LABCLIA [id number] [place] [address] [place] Hemoglobin (Bld) [Mass/Vol] 12.3 g/dL Normal 11.5-15.5 [facility] Comment on above: Order Comment: Speci men Type: BLOOD SPECIMENOrdering Facility: [facility] Address: [address] [place] [address] Performed By: #### 5 8410-2 ####[facility] LABIA [id number] [place] [address] [place] MCH (RBC) [Entitic mass] 30.0 pg Normal 26.0-34.0 [facility] Comment on above: Order Comment: Speci men Type: BLOOD SPECIMENOrdering Facility: [facility] Address: [address] [place] [address] Performed By: #### 5 8410-2 ####[facility] LABIA [id number] [place] [address] [place] MCHC (RBC) [Mass/Vol] 33.5 g/dL Normal 30.5-36.0 [facility] Comment on above: Order Comment: Speci men Type: BLOOD SPECIMENOrdering Facility: [facility] Address: [address] [place] [address] Performed By: #### 5 8410-2 ####[facility] LABIA [id number] [place] [address] [place] MCV (RBC) [Entitic vol] 89.5 fL Normal 80.0-100.0 [facility] Comment on above: Order Comment: Speci men Type: BLOOD SPECIMENOrdering Facility: [facility] Address: [address] [place] [address] Performed By: #### 5 8410-2 ####[facility] LABIA [id number] [place] [address] [place] Nucleated RBC (Bld) [#/Vol] 10*3/uL Normal <0.01 [facility] Comment on above: Order Comment: Speci men Type: BLOOD SPECIMENOrdering Facility: [facility] Address: [address] [place] [address] Performed By: #### 5 8410-2 ####[facility] LABIA [id number] [place] [address] [place] Platelet mean volume (Bld) [Entitic vol] 9.3 fL Normal 9.0-12.7 [facility] Comment on above: Order Comment: Speci men Type: BLOOD SPECIMENOrdering Facility: [facility] Address: [address] [place], [place] [address] Performed By: #### 5 8410-2 ####[facility] LABIA [id number] [place] [address] [place] Platelets (Bld) [#/Vol] 331 10*3/uL Normal 150-400 [facility] Comment on above: Order Comment: Speci men Type: BLOOD SPECIMENOrdering Facility: [facility] Address: [address] [place], [place] [address] Performed By: #### 5 8410-2 ####[facility] LABCLIA [id number] [place] [address] [place] RBC (Bld) [#/Vol] 4.10 10*6/uL Normal 3.90-5.20 [facility] Comment on above: Order Comment: Speci men Type: BLOOD SPECIMENOrdering Facility: [facility] Address: [address] [place] [address] Performed By: #### 5 8410-2 ####[facility] LABCLIA [id number] [address] WBC (Bld) [#/Vol] 7.53 10*3/uL Normal 3.70-11.00 [facility] Comment on above: Order Comment: Speci men Type: BLOOD SPECIMENOrdering Facility: [facility] Address: [address] [place] [address] Performed By: #### 5 8410-2 ####[facility] LABCLIA [id number] [address] OF [facility] EMILY GOODE ([id number]) 1950 F Date Time Provider Department 11/03/21 ATIF MENDEZ [facility] During your visit today, we recorded the following information about you: Gee Meeks Ma 11/03/2021 10:41 AM Signed Patient is in need of Echo before 11/16 for surgery. Is anyone able to assist in getting the patient in for this? Gee Meeks Ma 11/04/2021 2:50 PM Signed Patient scheduled 11/06 in [place] for ECHO Allergies As of Date: 11/03/2021 (No Known Allergies) Date Reviewed: 11/03/2021 Reviewed by: Dorothy Sparrow APRN.WIRE BRUSHER - Fully Assessed Reason for Visit: Orders [...] Refusal of blood transfusions as patient is Jeangela* CKD (chronic kidney disease) stage 3, GFR 30-59* Essential hypertension [I10] ADITI (obstructive sleep apnea) [G47.33] Anxiety [F41.9] Murmur [R01.1] Encounter Status:Closed by GEE MEEKS MA on 11/04/21 Normal [facility] Comprehensive metabolic 2000 panelon 11-03-2021 Albumin [Mass/Vol] 4.6 g/dL Normal 3.9-4.9 [facility] Comment on above: Order Comment: Speci men Type: BLOOD SPECIMENOrdering Facility: [facility] Address: [address] [place] [address] Performed By: #### 2 4323-8 ####[facility] LABCLIA [id number] [place] [address] [place] ALP [Catalytic activity/Vol] 91 U/L Normal 34-123 [facility] Comment on above: Order Comment: Speci men Type: BLOOD SPECIMENOrdering Facility: [facility] Address: [address] [place] [address] Performed By: #### 2 4323-8 ####[facility] LABCLIA [id number] [place] [address] [place] ALT [Catalytic activity/Vol] 16 U/L Normal 7-38 [facility] Comment on above: Order Comment: Speci men Type: BLOOD SPECIMENOrdering Facility: [facility] Address: [address] [place] [address] Performed By: #### 2 4323-8 ####[facility] LABCLIA [id number] [place] [address] [place] Anion gap [Moles/Vol] 9 mmol/L Normal 9-18 [facility] Comment on above: Order Comment: Speci men Type: BLOOD SPECIMENOrdering Facility: [facility] Address: [address] [place] [address] Performed By: #### 2 4323-8 ####[facility] LABCLIA [id number] [place] [address] [place] AST [Catalytic activity/Vol] 17 U/L Normal 13-35 [facility] Comment on above: Order Comment: Speci men Type: BLOOD SPECIMENOrdering Facility: [facility] Address: [address] [place] [address] Performed By: #### 2 4323-8 ####[facility] LABCLIA [id number] [place] [address] [place] Bilirubin [Mass/Vol] 0.6 mg/dL Normal 0.2-1.3 [facility] Comment on above: Order Comment: Speci men Type: BLOOD SPECIMENOrdering Facility: [facility] Address: [address] [place] [address] Performed By: #### 2 4323-8 ####[facility] LABIA [id number] [place] [address] [place] Calcium [Mass/Vol] 10.3 mg/dL High 8.5-10.2 [facility] Comment on above: Order Comment: Speci men Type: BLOOD SPECIMENOrdering Facility: [facility] Address: [address] [place] [address] Performed By: #### 2 4323-8 ####[facility] LABIA [id number] [place] [address] [place] Chloride [Moles/Vol] 98 mmol/L Normal 97-105 [facility] Comment on above: Order Comment: Speci men Type: BLOOD SPECIMENOrdering Facility: [facility] Address: [address] [place], [place] [address] Performed By: #### 2 4323-8 ####[facility] LABCLIA [id number] [place] [address] [place] CO2 [Moles/Vol] 27 mmol/L Normal 22-30 [facility] Comment on above: Order Comment: Speci men Type: BLOOD SPECIMENOrdering Facility: [facility] Address: [address] [place] [address] Performed By: #### 2 4323-8 ####[facility] LABCLIA [id number] [place] [address] [place] Creatinine [Mass/Vol] 1.05 mg/dL High 0.58-0.96 [facility] Comment on above: Order Comment: Speci men Type: BLOOD SPECIMENOrdering Facility: [facility] Address: [address] [place] [address] Performed By: #### 2 4323-8 ####[facility] LABCLIA [id number] [place] [address] [place] ESTIMATED GLOMERULAR FILTRATION RATE 58 mL/min/1.73m??? Low >=60 [facility] Comment on above: Order Comment: Speci men Type: BLOOD SPECIMENOrdering Facility: [facility] Address: [address] [place] [address] Result Comment: Gabriela mated Glomerular Filtration Rate [...] By: #### 2 4323-8 ####[facility] LABCLIA [id number] [place] [address] [place] Glucose [Mass/Vol] 108 mg/dL High 74-99 [facility] Comment on above: Order Comment: Speci men Type: BLOOD SPECIMENOrdering Facility: [facility] Address: [address] [place] [address] Result Comment: The [place] Diabetes Association (ADA) provides guidance for cutoff [...] Standards of Medical Care in Diabetes 2016, [place] [employer] Association. Diabetes Care. 2016.39(Suppl 1). Performed By: #### 2 4323-8 ####[facility] LABCLIA [id number] [place] [address] [place] Potassium [Moles/Vol] 4.3 mmol/L Normal 3.7-5.1 [facility] Comment on above: Order Comment: Param jarquin Type: BLOOD SPECIMENOrdering Facility: [facility] Address: [address] [place] [address] Performed By: #### 2 4323-8 ####[facility] LABCLIA [id number] [place] [address] [place] Protein [Mass/Vol] 7.2 g/dL Normal 6.3-8.0 [facility] Comment on above: Order Comment: Param jarquin Type: BLOOD SPECIMENOrdering Facility: [facility] Address: [address] [place] [address] Performed By: #### 2 4323-8 ####[facility] LABCLIA [id number] [place] [address] [place] Sodium [Moles/Vol] 134 mmol/L Low 136-144 [facility] Comment on above: Order Comment: Speci men Type: BLOOD SPECIMENOrdering Facility: [facility] Address: [address] [place] [address] Performed By: #### 2 4323-8 ####[facility] LABCLIA [id number] [address] Urea nitrogen [Mass/Vol] 19 mg/dL Normal 7-21 [facility] Comment on above: Order Comment: Speci men Type: BLOOD SPECIMENOrdering Facility: [facility] Address: [address] [place] [address] Performed By: #### 2 4323-8 ####[facility] LABCLIA [id number] [address] HISTORY PHYSICALon HISTORY PHYSICAL HNO ID: [id number] Author: Dorotyh Sparrow APRN.WIRE BRUSHER Service: ? Author Type: Nurse Practitioner Type: HANDP Filed: 11/10/2021 3:22 PM Note Text: HISTORY AND PHYSICAL EXAMINATION SERVICE DATE: 11/03/2021 SERVICE TIME: 3:22 PM PRIMARY CARE PHYSICIAN: Monika Guerrero MD REASON FOR VISIT: Emily Goode is a 70 year old female [...] loss, malaise or fevers. Neurological: HCP s/p TOY MAKER shunt Negative for: delirium, dementia, headaches, seizures and strokes. Respiratory: Positive for: obstructive sleep apnea and CPAP/BiPAP compliant. Negative for: asthma, current cough, bronchodilator used daily for the last 3 months, dyspnea, pneumonia within 6 weeks, tobacco use and URI < 2 weeks. Cardiovascular: Positive for: hypertension Negative for: CAD, chest pain, CHF, DVT/PE, recent WA and murmur/valvular heart disease. GI: See HPI. Negative for: dysphagia, liver disease and pancreatitis. : Positive for: renal failure. Patient's renal failure is chronic. Negative for: dysuria, hematuria and urinary tract infection. GRAPHICS EDITOR: Negative for abnormal vaginal bleeding, abnormal vaginal [...] Diagnosis Date - Congenital hydrocephalus (HCC) s/p TOY MAKER shunt - Essential hypertension - ADITI (obstructive sleep apnea) - Patient is Latter day PAST SURGICAL HISTORY Procedure Laterality Date - APPENDECTOMY - COLONOSCOPY - EGD - HYSTERECTOMY HX 2008 - PAST SURGICAL HISTORY OF 2012 coil embolization for right renal aneurysm( Aguilera) - PAST SURGICAL HISTORY OF 2006 TOY MAKER shunt - PAST SURGICAL HISTORY OF partial [...] of sedat (more content not included)... [facility] Faisal 10-23-2021 [facility] Telephone ([id number]) EMILY GOODE ([id number]) 1950 F Date Time Provider Department 10/23/21 ATIF MENDEZ [id number] During your visit today, we recorded the following information about you: Sabine Victoria Pss 10/23/2021 12:05 PM Signed Requested reports from [facility]. Sent fax to [phone] -Manometry 10.16.21 -Upper GI 10.07.21 Sabine Victoria [facility] Eleanor Dobson 10/27/2021 3:59 PM Signed Records received and scanned.on 10/27 listed under GI and external imaging Misc. Not sure who scanned these. Thanks! Allergies As of Date: 10/23/2021 (No Known Allergies) Date Reviewed: 10/01/2021 Reviewed by: Yolanda Castro MA - Fully Assessed Reason for Visit: Request Outside Medical Records [1775] Prescriptions as of 10/27/2021 - labetalol (TRANDATE) [...] OF GAIT [R26.9] 08/19/2005 Encounter Status:Closed by ELEANOR DOBSON on 10/27/21 [facility] CREATININE BLDon 10-21-2021 Creatinine [Mass/Vol] 1.04 mg/dL High 0.58-0.96 [facility] Comment on above: Order Comment: Speci britton Type: BLOOD SPECIMENOrdering Facility: [facility] Address: [address] [place] [address] Performed By: #### C RET1 ####[facility] LABCLIA [id number] [place] [id number] ESTIMATED GLOMERULAR FILTRATION RATE 59 mL/min/1.73m??? Low >=60 [facility] Comment on above: Order Comment: Speci britton Type: BLOOD SPECIMENOrdering Facility: [facility] Address: [address] [place] [address] Result Comment: Gabriela mated Glomerular Filtration Rate [...] actual GFR. Performed By: #### C RET1 ####[facility] LABCLIA [id number] [place] [address] CREATININE BLDOrdered By: Felipe Huertas on 10-21-2021 Creatinine [Mass/Vol] 1.04 mg/dL High 0.58 - 0.96 mg/dL [facility] GFR/1.73 sq M.predicted among non-blacks MDRD (S/P/Bld) [Vol rate/Area] 59 mL/min/{1.73_m2} Low - PINF [facility] Comment on above: Estimated Glomerular [...] Interpretation and review of laboratory results Abnormal [facility] CT ABD/PEL W IVCONon 022 CT ABD/PEL W IVCON * * *Final Report* * * DATE OF EXAM: Oct 21 2021 9:23AM [facility] 0530 - CT ABD/PEL W [...] no acute osseous abnormalities. Lower thorax: Unremarkable. Centrifugal Drier Operator (topogram) images: No additional findings. IMPRESSION: 1. [...] any questions regarding this interpretation, please call [phone]. If you are unable to reach us at the number above, please feel free to contact [facility] eRadiology at [phone]. [id number] Normal [facility] CT Abdomen and Pelvis W cont rast [...] any questions regarding this interpretation, please call [phone]. If you are unable to reach us at the number above, please feel free to contact [facility] eRadiology at [phone]. XenaZZ_DO_NOT_ USE_DIVISDUNCAN N OF RADIOLOGY * * *Final Report* * * DATE OF EXAM: Oct 21 2021 9:23AM [facility] 0530 - CT ABD/PEL W [...] no acute osseous abnormalities. Lower thorax: Unremarkable. Centrifugal Drier Operator (topogram) images: No additional findings. ZZZ_DO_NOT_ USE_DIVISIO N OF RADIOLOGY Provider, [facility] - 10/21/2021 * * *Final Report* * * DATE OF EXAM: Oct 21 2021 9:23AM [facility] 0530 - CT ABD/PEL W [...] no acute osseous abnormalities. Lower thorax: Unremarkable. Centrifugal Drier Operator (topogram) images: No additional findings. IMPRESSION IMPRESSION: [...] any questions regarding this interpretation, please call [phone]. If you are unable to reach us at the number above, please feel free to contact [facility] eRadiology at [phone]. [facility] Radiology Study observation (narrative) [facility] CT Abdomen and Pelvis W cont rast IVOrdered By: [facility] Provider on 10-21-2021 [facility] CNOVon 10-01-2021 CNOV Office Visit ([id number] ) EMILY GOODE ([id number]) 1950 F Date Time Provider Department 10/01/21 10:30 AM ATIF MENDEZ [id number] During your visit today, we recorded the [...] PM Addendum NEW [place]EG[place] PATIENT PATIENT NAME: Emily Goode REASON FOR CONSULT: Hiatal hernia REQUESTING PHYSICIAN: Dr. Jorge Ramirez DATE of SERVICE: 09/25/2021 TIME of SERVICE: 12:16 PM PCP: Monika Guerrero MD Chief Complaint: refractory GERD History of present illness: Emily Goode is a 70 year old female who is a Oriental orthodox PMH of congenital hydrocephalus ( TOY MAKER shunt), HTN, patient of Monika Guerrero MD, referred to me by Dr Ramirez for hiatal hernia with severe GERD symptoms. Patient reports heart burn, excess salivation and occasional regurgitaion. She denies any ALARM features including weight loss, GIB, odynyophagia or dysphagia. Her PSH include open appendectomy, JUANI, and TOY MAKER shunt placement. The patient's most recent EGD was done in 09/03 and the report is included below Chart Review: -hx: worsening GERD - referred by Dr. Ramirez for GERD/Hiatal Hernia Scan on 09/03/2021 ?9:36 AM by Eleanor oDbson: [facility] progress note 07/22/2021 Dr. Ramirez - 08/06/2021 EGD Scan on 09/03/2021 ?9:35 AM by Eleanor Dobson: [facility] EGD 08/06/2021 Dr. Ramirez -09/17/2015 EGD Scan on 09/03/2021 ?9:33 AM by Eleanor Dobson: [facility] Operative report 09/17/2015 Dr. Walter Difficulty swallowing [...] PH probe:not done Manometry:not done CT:not Impression: Emily Goode is a 70 year old female who is a Oriental orthodox PMH of congenital hydrocephalus ( TOY MAKER shunt), HTN, who presents with paraesophageal hernia and refractory GERD symptoms. - Follow up Manometry and UGI. Plan: Emily Goode is a 70 year old female who was referred to me by Dr. Ramirez for a paraesophageal hernia. Patient was worked up for severe foregut symptoms including severe acid reflux, significant regurgitation, cough and sore throat and underwent an EGD that noted a paraesophageal hernia. She has had the s (more content not included)... Normal [facility] 09-03-2021 [facility] Telephone ([id number]) EMILY GOODE ([id number]) 1950 F Date Time Provider Department 09/03/21 ATIF MENDEZ [id number] During your visit today, we recorded the following information about you: Eleanor Dobson 09/03/2021 9:39 AM Signed Received medical records from Dr. Ramirez. Progress Note 07/22/2021 EGD [id number] Old Operative Report 09/17/2015 Please review. Allergies As of Date: 09/03/2021 (No Known Allergies) Date Reviewed: 03/07/2013 Reviewed by: Griselda (Rn) MINDY Valdes - Fully Assessed Reason for Visit: Received Outside Medical Records [[id number]] Prescriptions as of 09/07/2021 - aliskiren hemifumarate(TEKTURNA [...] by RIKY MOURA RN on 09/07/21 [facility] Cardiovascular Lab Reporton 01-13-2017 Cardiovascular Lab Report [facility] Patient Name: Emily Goode [facility] MR #: [id number] Physician: Caty Yoder,Department of M.D.Medicine Service Date: 01/12/2017Division of Birthdate: 3Cardiology Room #: CCAdult CardiovascularServicesUnCH[facility] [address] [place], [place] [address]Neuug Fax Cardiovascular Laboratory ReportFINAL IMPRESSION:1. Mildly elevated right ventricular filling pressure.2. Preserved cardiac output and cardiac index.3. Normal epicardial coronary arteries.INDICATION:Emily Goode is a 66-year-old female, who is [...] usual sterile fashion. Using modified Seldingertechnique, a 5-Cypriot micropuncture was placed in the right internaljugular vein. After that, this was upsized to a regular 5-Cypriot sheath.A 5-Cypriot Martinez was used for right heart catheterization. After theright heart catheterization, data was obtained. Martinez catheter was takenout. After that, access was obtained of left radial artery and a 6-Frenchsheath was placed and then we used a 5-Cypriot JL4 and JR4 catheters forcoronary angiography. After [...] 01/12/2017/11:24 Darya/Caty Yoder M.D.Date Trans: 01/13/2017 07:28 A/Chin_JN:[id number]: Rico Purcell M.D. [address] [id number] Steven Sanchez M.D. [address] [place], [place] [id number] Normal [facility] Vital Signs Date Time Vital Sign Value Performing Clinician Facility 01-08-2025 13: Body height 160.02 cm Rico Purcell MD Work Phone: [facility] 01-08-2025 13:040 Body mass index (BMI) [Ratio] 32.2 kg/m2 Rico Purcell MD Work Phone: [facility] 01-08-2025 13:040 Body temperature 99.1 [degF] Rico Purcell MD Work Phone: [facility] 01-08-2025 13:21-0400 Body weight 82.55 kg Rico Purcell MD Work Phone: [facility] 01-08-2025 13:21-0400 Diastolic blood pressure 71 mm[Hg] Rico Purcell MD Work Phone: [facility] 01-08-2025 13:21-0400 Heart rate 76 /min Rico Purcell MD Work Phone: [facility] 01-08-2025 13:-040 Respiratory rate 18 /min Rico Purcell MD Work Phone: [facility] 01-08-2025 13:0400 SaO2% (BldA) [Mass fraction] 98 % Rico Purcell MD Work Phone: [facility] 01-08-2025 13:21040 Systolic blood pressure 131 mm[Hg] Rico Purcell MD Work Phone: [facility] 10-08-2024 13:28-0400 Body height 157.5 cm Patel Garland NP Work Phone: [facility] 10-08-2024 13:28-0400 Body mass index (BMI) [Ratio] 33.43 kg/m2 Patel Garland NP Work Phone: [facility] 10-08-2024 13:28-0400 Body weight 82.92 kg Patel Garland NP Work Phone: [facility] 07-16-2024 09:15-0400 Body height 160.02 cm Rico Purcell MD Work Phone: [facility] 07-16-2024 09:15-0400 Body temperature 97.9 [degF] Rico Purcell MD Work Phone: [facility] 07-16-2024 09:15-0400 Body weight 84 kg Rico Purcell MD Work Phone: [facility] 07-16-2024 09:15-0400 Diastolic blood pressure 60 mm[Hg] Rico Purcell MD Work Phone: [facility] 07-16-2024 09:15-0400 Heart rate 62 /min Rico Purcell MD Work Phone: [facility] 07-16-2024 09:15-0400 Respiratory rate 12 /min Rico Purcell MD Work Phone: [facility] 07-16-2024 09:15-0400 SaO2% (BldA) [Mass fraction] 95 % Rico Purcell MD Work Phone: [facility] 07-16-2024 09:15-0400 Systolic blood pressure 110 mm[Hg] Rico Purcell MD Work Phone: [facility] 07-11-2024 09:10-0500 Body height 157.48 cm [facility] 07-11-2024 09:10-0500 Body mass index (BMI) [Ratio] 33.5 kg/m2 [facility] 07-11-2024 09:10-0500 Body weight 83 kg [facility] 07-11-2024 09:10-0500 Diastolic blood pressure 71 mm[Hg] [facility] 07-11-2024 09:10-0500 Heart rate 65 /min [facility] 07-11-2024 09:10-0500 Respiratory rate 16 /min [facility] 07-11-2024 09:10-0500 SaO2% (BldA) [Mass fraction] 95 % [facility] 07-11-2024 09:10-0500 Systolic blood pressure 110 mm[Hg] [facility] 07-05-2024 09:04-0500 Body height 157.5 cm Estelle BENSON Work Phone: [facility] 07-05-2024 09:04-0500 Body mass index (BMI) [Ratio] 33.76 kg/m2 Estelle BENSON Work Phone: [facility] 07-05-2024 09:04-0500 Body weight 83.73 kg Estelle BENSON Work Phone: [facility] 07-02-2024 10:52-0500 Body mass index (BMI) [Ratio] 34.39 kg/m2 Heather Bang MD Work Phone: [facility] 07-02-2024 10:52-0500 Body weight 85.28 kg Heather Bang MD Work Phone: [facility] 06-20-2024 11:23-0500 Body height 157.5 cm Ben Florentino MD Work Phone: [facility] 06-20-2024 11:23-0500 Body mass index (BMI) [Ratio] 34.39 kg/m2 Ben Florentino MD Work Phone: [facility] 06-20-2024 11:23-0500 Body weight 85.28 kg Ben Florentino MD Work Phone: [facility] 06-20-2024 11:23-0500 Diastolic blood pressure 61 mm[Hg] Ben Florentino MD Work Phone: [facility] 06-20-2024 11:23-0500 Heart rate 125 /min Ben Florentino MD Work Phone: [facility] 06-20-2024 11:23-0500 Systolic blood pressure 88 mm[Hg] Ben Florentino MD Work Phone: [facility] 05-16-2024 10:26-0500 Body height 157.5 cm Ben Florentino MD Work Phone: [facility] 05-16-2024 10:26-0500 Body mass index (BMI) [Ratio] 34.39 kg/m2 Ben Florentino MD Work Phone: [facility] 05-16-2024 10:26-0500 Body weight 85.28 kg Ben Florentino MD Work Phone: [facility] 05-16-2024 10:26-0500 Diastolic blood pressure 67 mm[Hg] Ben Florentino MD Work Phone: [facility] 05-16-2024 10:26-0500 Heart rate 72 /min Ben Florentino MD Work Phone: [facility] 05-16-2024 10:26-0500 Systolic blood pressure 106 mm[Hg] Ben Florentino MD Work Phone: [facility] 03-21-2024 11:18-0500 Body height 157.5 cm Mireille Zurita MD Work Phone: [facility] 03-21-2024 11:18-0500 Body mass index (BMI) [Ratio] 33.29 kg/m2 Mireille Zurita MD Work Phone: [facility] 03-21-2024 11:18-0500 Body temperature 97 [degF] Mireille Zurita MD Work Phone: [facility] 03-21-2024 11:18-0500 Body weight 82.56 kg Mireille Zurita MD Work Phone: [facility] 03-21-2024 11:18-0500 Diastolic blood pressure 84 mm[Hg] Mireille Zurita MD Work Phone: [facility] 03-21-2024 11:18-0500 Heart rate 85 /min Mireille Zurita MD Work Phone: [facility] 03-21-2024 11:18-0500 Systolic blood pressure 132 mm[Hg] Mireille Zurita MD Work Phone: [facility] 03-06-2024 13:45-0400 Diastolic blood pressure 62 mm[Hg] MD Rico Purcell Work Phone: [facility] 03-06-2024 13:45-0400 Heart rate 66 /min MD Rico Purcell Work Phone: [facility] 03-06-2024 13:45-0400 Respiratory rate 16 /min MD Rico Purcell Work Phone: [facility] 03-06-2024 13:45-0400 SaO2% (BldA) [Mass fraction] 96 % MD Rico Purcell Work Phone: [facility] 03-06-2024 13:45-0400 Systolic blood pressure 130 mm[Hg] MD Rico Purcell Work Phone: [facility] 03-06-2024 12:12-0400 Body height 157.48 cm MD Rico Purcell Work Phone: [facility] 03-06-2024 12:12-0400 Body weight 81.19 kg MD Rico Purcell Work Phone: [facility] 03-01-2024 11:14-0400 Body height 157.5 cm Estelle BENSON Work Phone: [facility] 03-01-2024 11:14-0400 Body mass index (BMI) [Ratio] 33.73 kg/m2 Estelle BENSON Work Phone: [facility] 03-01-2024 11:14-0400 Body weight 83.64 kg Estelle BENSON Work Phone: [facility] 01-24-2024 10:18-0400 Body height 163.83 cm MD Rico Purcell Work Phone: [facility] 01-24-2024 10:18-0400 Body mass index (BMI) [Ratio] 30.4 kg/m2 MD Rico Purcell Work Phone: [facility] 01-24-2024 10:180400 Body temperature 97.6 [degF] MD Rico Purcell Work Phone: [facility] 01-24-2024 10:180400 Body weight 81.64 kg MD Rico Purcell Work Phone: [facility] 01-24-2024 10:18-0400 Diastolic blood pressure 79 mm[Hg] MD Rico Purcell Work Phone: [facility] 01-24-2024 10:18-0400 Heart rate 76 /min MD Rico Purcell Work Phone: [facility] 01-24-2024 10:180400 Respiratory rate 16 /min MD Rico Purcell Work Phone: [facility] 01-24-2024 10:18-0400 SaO2% (BldA) [Mass fraction] 99 % MD Rico Purcell Work Phone: [facility] 01-24-2024 10:18-0400 Systolic blood pressure 138 mm[Hg] MD Rico Purcell Work Phone: [facility] 10-19-2023 11:33-0400 Body height 157.5 cm Mireille Zurita MD Work Phone: 3(771)[phone] [place] [address] 10-19-2023 11:33-0400 Body mass index (BMI) [Ratio] 31.83 kg/m2 Mireille Zruita MD Work Phone: 8(730)[phone] [place] [address] 10-19-2023 11:33-0400 Body temperature 96.6 [degF] Mireille Zurita MD Work Phone: 7(749)[phone] [place] [address] 10-19-2023 11:33-0400 Body weight 78.93 kg Mireille Zurita MD Work Phone: 7(005)[phone] [address] [place] [address] 10-19-2023 11:33-0400 Diastolic blood pressure 74 mm[Hg] Mireille Zurita MD Work Phone: 4(799)072-946143 [place] [address] 10-19-2023 11:33-0400 Heart rate 79 /min Mireille Zurita MD Work Phone: [facility] 10-19-2023 11:33-0400 Systolic blood pressure 132 mm[Hg] Mireille Zurita MD Work Phone: 4(731)351-932323 [place] [address] 06-16-2023 10:43-0500 Body height 160 cm Mireille Zurita MD Work Phone: [facility] 06-16-2023 10:43-0500 Body mass index (BMI) [Ratio] 31.53 kg/m2 Mireille Zurita MD Work Phone: [facility] 06-16-2023 10:43-0500 Body temperature 96.8 [degF] Mireille Zurita MD Work Phone: [facility] 06-16-2023 10:43-0500 Body weight 80.74 kg Mireille Zurita MD Work Phone: [facility] 06-16-2023 10:43-0500 Diastolic blood pressure 74 mm[Hg] Mireille Zurita MD Work Phone: 4(992)662-180023 [place] [address] 06-16-2023 10:43-0500 Heart rate 82 /min Mireille Zurita MD Work Phone: 4(108)625-290223 [place] [address] 06-16-2023 10:43-0500 Systolic blood pressure 110 mm[Hg] Mireille Zurita MD Work Phone: 4(348)962-697323 [place] [address] 05-10-2023 11:27-0500 Body height 157.5 cm Mireille Zurita MD Work Phone: 7(016)344-643643 [place] [address] 05-10-2023 11:27-0500 Body mass index (BMI) [Ratio] 32.08 kg/m2 Mireille Zurita MD Work Phone: 2(953)043-923823 [place] [address] 05-10-2023 11:27-0500 Body temperature 97.3 [degF] Mireille Zurita MD Work Phone: 1(302)587-428023 [place] [address] 05-10-2023 11:27-0500 Body weight 79.56 kg Mireille Zurita MD Work Phone: 4(994)761-285823 [place] [address] 05-10-2023 11:27-0500 Diastolic blood pressure 76 mm[Hg] Mireille Zurita MD Work Phone: 2(139)871-918323 [place] [address] 05-10-2023 11:27-0500 Heart rate 74 /min Mireille Zurita MD Work Phone: 5(746)177-442523 [place] [address] 05-10-2023 11:27-0500 Respiratory rate 16 /min Mireille Zurita MD Work Phone: 5(974)536-658923 [place] [address] 05-10-2023 11:27-0500 Systolic blood pressure 120 mm[Hg] Mireille Zurita MD Work Phone: 4(743)210-737023 [place] [address] 03-23-2023 08:20-0500 Body temperature 97.9 [degF] Mireille Zurita MD Work Phone: 7(531)058-678123 [place] [address] 03-23-2023 08:20-0500 Diastolic blood pressure 73 mm[Hg] Mireille Zurita MD Work Phone: [facility] 03-23-2023 08:20-0500 Heart rate 88 /min Mireille Zurita MD Work Phone: [facility] 03-23-2023 08:20-0500 Respiratory rate 16 /min Mireille Zurita MD Work Phone: [facility] 03-23-2023 08:20-0500 SaO2% (BldA) [Mass fraction] 95 % Mireille Zurita MD Work Phone: [facility] 03-23-2023 08:20-0500 Systolic blood pressure 127 mm[Hg] Mireille Zurita MD Work Phone: [facility] 03-21-2023 06:33-0500 Body height 157.5 cm Mireille Zurita MD Work Phone: [facility] 03-21-2023 06:33-0500 Body mass index (BMI) [Ratio] 31.45 kg/m2 Mireille Zurita MD Work Phone: [facility] 03-21-2023 06:33-0500 Body weight 78 kg Mireille Zurita MD Work Phone: [facility] 02-01-2023 09:40-0400 Body height 163.83 cm Gino Chelsey Other [facility] [employer] Other 02-01-2023 09:40-0400 Body mass index (BMI) [Ratio] 29.4 kg/m2 Gino Chelsey Other [employer] Other 02-01-2023 09:40-0400 Body temperature 97.6 [degF] Gino Chelsey Other [employer] Other 02-01-2023 09:40-0400 Body weight 78.93 kg Gino Chelsey Other [employer] Other 02-01-2023 09:40-0400 Diastolic blood pressure 74 mm[Hg] Gino Chelsey Other [employer] Other 02-01-2023 09:40-0400 Respiratory rate 18 /min Gino Chelsey Other [employer] Other 02-01-2023 09:40-0400 SaO2% (BldA) [Mass fraction] 98 % Gino Chelsey Other [employer] Other 02-01-2023 09:40-0400 Systolic blood pressure 129 mm[Hg] Gino Chelsey Other [employer] Other 01-20-2023 14:47-0400 Body height 160.02 cm Rico M Hoy Work Phone: SE-Hsdvzwzfigew-Wacy [facility] [address] Work Phone: 01-20-2023 14:47-0400 Body mass index (BMI) [Ratio] 30.29 kg/m2 Rico M Hoy Work Phone: XK-Itidcfnpcgzy-Qjkv [facility] [address] Work Phone: 01-20-2023 14:47-0400 Body surface area Derived from formula 1.81 m2 Rico M Hoy Work Phone: LL-Bfttkyvrnvvo-Luvd [facility] [address] Work Phone: 01-20-2023 14:47-0400 Body temperature 96.9 [degF] Rico M Hoy Work Phone: LR-Fdrpkdibjuda-Htet [facility] [address] Work Phone: 01-20-2023 14:47-0400 Body weight 77.57 kg Rico M Hoy Work Phone: SQ-Twfgamwdgizd-Paio [place] [address] Work Phone: 01-20-2023 14:47-0400 Diastolic blood pressure 78 mm[Hg] Rico M Hoy Work Phone: FB-Dlxgjkfslzog-Ganx [place] [address] Work Phone: 01-20-2023 14:47-0400 Heart rate 69 /min Rico M Hoy Work Phone: TH-Belnzjzmzirb-Nhob [place] [address] Work Phone: 01-20-2023 14:47-0400 SaO2% (BldA) [Mass fraction] 98 % Rico M Hoy Work Phone: HC-Waubhxyrvrqv-Jvkd [facility] [address] [address] Work Phone: 01-20-2023 14:47-0400 Systolic blood pressure 140 mm[Hg] Rico M Hoy Work Phone: EX-Rfcrenzkicdp-Rcwc [facility] [address] [address] Work Phone: 01-20-2023 14:47-0400 4 1 Rico M Hoy Work Phone: IM-Plwhjybnfgig-Hhkg [facility] [address] Work Phone: Comment on above: [employer] 12-07-2022 11:08-0400 Body height 160.02 cm Rico M Hoy Work Phone: CI-Ypiazszhyudo-Lpdd [place] [address] Work Phone: 12-07-2022 11:08-0400 Body mass index (BMI) [Ratio] 30.29 kg/m2 Rico M Hoy Work Phone: WV-Wnkfiyktrlew-Ovuq [facility] [address] Work Phone: 12-07-2022 11:08-0400 Body surface area Derived from formula 1.81 m2 Rico M Hoy Work Phone: JG-Eelnimbatijn-Ktlw [place] [address] Work Phone: 12-07-2022 11:08-0400 Body temperature 96.8 [degF] Rico M Hoy Work Phone: YP-Txhhuiylzmop-Psqz [facility] [address] Work Phone: 12-07-2022 11:08-0400 Body weight 77.57 kg Rico M Hoy Work Phone: ED-Xdjwdbrtwkla-Mdns [facility] [address] Work Phone: 12-07-2022 11:08-0400 Diastolic blood pressure 78 mm[Hg] Rico M Hoy Work Phone: OJ-Gdnehzlaedlt-Zmwe [facility] [address] Work Phone: 12-07-2022 11:08-0400 Heart rate 63 /min Rico M Hoy Work Phone: QW-Gnmpqjzdzcqx-Rkln [facility] [address] Work Phone: 12-07-2022 11:08-0400 SaO2% (BldA) [Mass fraction] 97 % Rico M Hoy Work Phone: FY-Replqwqwwozg-Vypy [facility] [address] Work Phone: 12-07-2022 11:08-0400 Systolic blood pressure 132 mm[Hg] Rico M Hoy Work Phone: CS-Aquweauaiqbp-Zhzt [facility] [address] Work Phone: 12-07-2022 11:08-0400 4 1 Rico M Hoy Work Phone: PU-Aziguinktxoo-Dxzt [facility] [address] Work Phone: Comment on above: [employer] 12-07-2022 11:08-0400 5 1 Rico M Hoy Work Phone: ZH-Teqtbfupaebj-Sqoo [facility] [address] [address] Work Phone: Comment on above: PHQ-9 TS 08-03-2022 15:20-0400 Body height 163.83 cm Keagan Chadwick Other [employer] Other 08-03-2022 15:20-0400 Body mass index (BMI) [Ratio] 19.6 kg/m2 Keagan Chadwick Other [employer] Other 08-03-2022 15:20-0400 Body weight 52.62 kg Keagan Chadwick Other [employer] Other 07-22-2022 12:00-0400 Body height 163.83 cm Keagan Chadwick Other [employer] Other 07-22-2022 12:00-0400 Body mass index (BMI) [Ratio] 19.6 kg/m2 Keagan Chadwick Other [employer] Other 07-22-2022 12:00-0400 Body weight 52.62 kg Keagan Chadwick Other [employer] Other 07-22-2022 12:00-0400 Diastolic blood pressure 72 mm[Hg] Keagan Chadwick Other [employer] Other 07-22-2022 12:00-0400 Systolic blood pressure 118 mm[Hg] Keagan Chadwick Other [employer] Other 06-16-2022 10:00-0500 Body height 163.83 cm Gino Chelsey Other [employer] Other 06-16-2022 10:00-0500 Body mass index (BMI) [Ratio] 19.69 kg/m2 Gino Chelsey Other [employer] Other 06-16-2022 10:00-0500 Body temperature 97.6 [degF] Gino Chelsey Other [employer] Other 06-16-2022 10:00-0500 Body weight 52.84 kg Gino Chelsey Other [employer] Other 06-16-2022 10:00-0500 Diastolic blood pressure 70 mm[Hg] Gino Chelsey Other [employer] Other 06-16-2022 10:00-0500 Respiratory rate 18 /min Gino Chelsey Other [employer] Other 06-16-2022 10:00-0500 Systolic blood pressure 120 mm[Hg] Gino Chelsey Other [facility] [employer] Other 04-08-2022 10:09-0500 Diastolic blood pressure 64 mm[Hg] MD Rico Purcell Work Phone: [facility] 04-08-2022 10:09-0500 Heart rate 64 /min MD Rico Purcell Work Phone: [facility] 04-08-2022 10:09-0500 Respiratory rate 16 /min MD Rico Purcell Work Phone: [facility] 04-08-2022 10:09-0500 SaO2% (BldA) [Mass fraction] 100 % MD Rico Purcell Work Phone: [facility] 04-08-2022 10:09-0500 Systolic blood pressure 112 mm[Hg] MD Rico Purcell Work Phone: [facility] 04-08-2022 08:55-0500 Body height 160.02 cm MD Rico Purcell Work Phone: [facility] 04-08-2022 08:55-0500 Body temperature 98.2 [degF] MD Rico Purcell Work Phone: [facility] 04-08-2022 08:55-0500 Body weight 74.84 kg MD Rico Purcell Work Phone: [facility] 03-23-2022 16:20-0500 Body height 163.83 cm Keagan Chadwick Other [employer] Other 03-23-2022 16:20-0500 Body mass index (BMI) [Ratio] 28.05 kg/m2 Keagan Chadwick Other [employer] Other 03-23-2022 16:20-0500 Body weight 75.3 kg Keagan Chadwick Other [employer] Other 02-11-2022 14:00-0400 Body height 163.83 cm Keagan Chadwick Other [employer] Other 02-11-2022 14:00-0400 Body mass index (BMI) [Ratio] 28.05 kg/m2 Keagan Chadwick Other [employer] Other 02-11-2022 14:00-0400 Body weight 75.3 kg Keagan Chadwick Other [employer] Other 11-30-2021 11:20-0400 Body height 163.83 cm Gino Chelsey Other [employer] Other 11-30-2021 11:20-0400 Body mass index (BMI) [Ratio] 28.12 kg/m2 Gino Chelsey Other [employer] Other 11-30-2021 11:20-0400 Body temperature 97.2 [degF] Gino Chelsey Other [employer] Other 11-30-2021 11:20-0400 Body weight 75.48 kg Gino Chelsey Other [employer] Other 11-30-2021 11:20-0400 Diastolic blood pressure 69 mm[Hg] Gino Chlesey Other [employer] Other 11-30-2021 11:20-0400 Respiratory rate 18 /min Gino Chelsey Other [employer] Other 11-30-2021 11:20-0400 SaO2% (BldA) [Mass fraction] 98 % Gino Chelsey Other [employer] Other 11-30-2021 11:20-0400 Systolic blood pressure 112 mm[Hg] Gino Chelsey Other [employer] Other 11-12-2021 11:54-0400 Body height 160 cm Atif Mendez MD Work Phone: [facility] 11-12-2021 11:54-0400 Body temperature 97.39 [degF] Atif Mendez MD Work Phone: [facility] 11-12-2021 11:54-0400 Body weight 78.47 kg Atif Mendez MD Work Phone: [facility] 11-12-2021 11:54-0400 Diastolic blood pressure 63 mm[Hg] Atif Mendez MD Work Phone: [facility] 11-12-2021 11:54-0400 Heart rate 62 /min Atif Mendez MD Work Phone: [facility] 11-12-2021 11:54-0400 SaO2% (BldA) [Mass fraction] 98 % Atif Mendez MD Work Phone: [facility] 11-12-2021 11:54-0400 Systolic blood pressure 140 mm[Hg] Atif Mendez MD Work Phone: [facility] 10-01-2021 10:31-0400 Body height 165.1 cm Atif Mendez MD Work Phone: [facility] 10-01-2021 10:31-0400 Body weight 80.74 kg Atif Mendez MD Work Phone: [facility] 10-01-2021 10:31-0400 Diastolic blood pressure 57 mm[Hg] Atif Mendez MD Work Phone: [facility] 10-01-2021 10:31-0400 Heart rate 70 /min Atif Mendez MD Work Phone: [facility] 10-01-2021 10:31-0400 SaO2% (BldA) [Mass fraction] 97 % Atif Mendez MD Work Phone: [facility] 10-01-2021 10:31-0400 Systolic blood pressure 122 mm[Hg] Atif Mendez MD Work Phone: [facility] 06-02-2021 12:00-0500 Body height 163.83 cm Gino Chelsey Other [employer] Other 06-02-2021 12:00-0500 Body mass index (BMI) [Ratio] 30.28 kg/m2 Gino Chelsey Other [employer] Other 06-02-2021 12:00-0500 Body temperature 96.6 [degF] Gino Chelsey Other [employer] Other 06-02-2021 12:00-0500 Body weight 81.29 kg Gino Chelsey Other [employer] Other 06-02-2021 12:00-0500 Diastolic blood pressure 61 mm[Hg] Gino Chelsey Other [employer] Other 06-02-2021 12:00-0500 Respiratory rate 18 /min Gino Chelsey Other [employer] Other 06-02-2021 12:00-0500 SaO2% (BldA) [Mass fraction] 98 % Gino Barbosa Other [employer] Other 06-02-2021 12:00-0500 Systolic blood pressure 125 mm[Hg] Gino Barbosa Other [employer] Other Encounters Encounter Date Encounter Type Care Provider Facility Start: 01-08-2025 End: 01-08-2025 ambulatory Rico Purcell MD Work Phone: [facility] Work Phone: Start: 01-08-2025 End: 01-08-2025 Patient encounter procedure Gino Barbosa MD -[facility] Work Phone: Start: 01-02-2025 Non-patient / Non-visit Gino Barbosa MD -[facility] [employer] Work Phone: Start: 12-20-2024 End: 12-20-2024 Bamboo flowsheet Estelle Perez PA Work Phone: [facility] Start: 12-20-2024 End: 12-20-2024 Bamboo flowsheet Estelle BENSON Work Phone: [facility] Start: 12-20-2024 End: 12-20-2024 Postop follow up visit related to original px Estelle BENSON Work Phone: [facility] Comment on above: S/P total knee arthr oplasty, right (Primary Dx) Start: 12-20-2024 End: 12-20-2024 ambulatory ESTELLE PEREZ Not Available Start: 11-19-2024 End: 11-19-2024 Bamboo flowsheet Estelle BENSON Work Phone: [facility] Start: 11-19-2024 End: 11-19-2024 Bamboo flowsheet Etselle BENSON Work Phone: [facility] Start: 11-19-2024 End: 11-19-2024 Postop follow up visit related to original px Estelle BENSON Work Phone: [facility] Comment on above: S/P total knee arthr oplasty, right (Primary Dx) Start: 11-19-2024 End: 11-19-2024 ambulatory ESTELLE PEREZ Not Available Start: 11-12-2024 End: 11-12-2024 Telephone encounter Patel Garland DRY HOUSE ATTENDANT Work Phone: [facility] Start: 11-06-2024 End: 11-06-2024 Telephone encounter Estelle BENSON Work Phone: [facility] Start: 11-05-2024 End: 11-05-2024 ambulatory [facility] Facility:[facility] Start: 11-02-2024 End: 11-02-2024 Telephone encounter Jr. Simba Knapp DO Work Phone: [facility] Start: 10-29-2024 End: 10-29-2024 Clinisync Result Encounter Jr. Simba Knapp DO Work Phone: [facility] External [facility] Unsolicited Start: 10-29-2024 End: 10-29-2024 Clinisync Result Encounter Jr. Simba Knapp DO Work Phone: [facility] Unsolicited Start: 10-19-2024 End: 10-19-2024 Telephone encounter Estelle BENSON Work Phone: [facility] Comment on above: UTI Start: 10-17-2024 End: 10-17-2024 ambulatory RICO Y Facility:[facility] Start: 10-17-2024 Encounter for other preprocedural examination [facility] Start: 10-08-2024 End: 10-08-2024 Bamboo flowsheet Patel Garland DRY HOUSE ATTENDANT Work Phone: [facility] Start: 10-08-2024 End: 10-08-2024 Bamboo flowsheet Patel Garland DRY HOUSE ATTENDANT Work Phone: [facility] Start: 10-08-2024 End: 10-08-2024 Patient encounter procedure Patel Garland DRY HOUSE ATTENDANT Work Phone: [facility] Comment on above: Primary osteoarthrit is of right knee (Primary Dx); Pre-op exam Start: 10-08-2024 End: 10-08-2024 Preprocedural examination done Patel Garland DRY HOUSE ATTENDANT Work Phone: [facility] Start: 10-08-2024 End: 10-08-2024 ambulatory PATEL GARLAND Not Available Start: 08-02-2024 End: 08-02-2024 ambulatory [facility] Facility:[facility] Start: 08-02-2024 End: 08-02-2024 Departed Referred Rico Purcell MD Work Phone: [facility] [place] Start: 07-17-2024 End: 07-17-2024 ambulatory Murtaza Holloway PT Work Phone: [facility] Comment on above: Primary osteoarthrit is of right knee (Primary Dx) Start: 07-16-2024 End: 07-16-2024 Patient encounter procedure Rico Purcell MD Work Phone: [facility] [address] Work Phone: Start: 07-16-2024 End: 07-16-2024 ambulatory Rico Purcell MD Work Phone: [facility] Work Phone: Start: 07-16-2024 End: 07-16-2024 Patient encounter procedure Rico Purcell MD Work Phone: [facility]-Pre-Surgical Testing Work Phone: Start: 07-16-2024 End: 07-16-2024 ambulatory Rico Purcell MD Work Phone: [facility] Work Phone: Start: 07-16-2024 Encounter for preprocedural laboratory examination Simba Knapp Jr [facility] Start: 07-11-2024 End: 07-11-2024 ambulatory [facility] Work Phone: Start: 07-11-2024 End: 07-11-2024 Patient encounter procedure [facility] Work Phone: Start: 07-05-2024 End: 07-05-2024 Bamboo flowsheet Estelle BENSON Work Phone: [facility] Start: 07-05-2024 End: 07-05-2024 Bamboo flowsheet Estelle Perez PA Work Phone: [facility] Start: 07-05-2024 [...] Dx) Start: 07-02-2024 End: 07-02-2024 ambulatory HEATHER Anguiano RAMBASEK Not Available Start: 06-27-2024 Non-patient / Non-visit [facility] Work Phone: Start: 06-27-2024 [...] BANG Not Available Start: 06-25-2024 End: 06-25-2024 Bamboo flowskristopher Bang [...] End: 06-19-2024 Office outpatient new 30 minutes Janay Ngo BURNER MACHINE OPERATOR-WIRE BRUSHER Work Phone: [facility] Comment on above: Melanocytic nevus of trunk (Primary Dx); Melanocytic nevus of face, other location; Capillary angioma; Lentigines; Seborrheic keratosis; Actinic keratosis; Neoplasm of unspecified behavior of bone, soft tissue, and skin Start: 06-19-2024 End: 06-19-2024 Bamboo flowsheet Janay A Felter BURNER MACHINE OPERATOR-WIRE BRUSHER Work Phone: [facility] Start: 06-19-2024 End: 06-19-2024 Bamboo flowsheet Janay Darya Felter BURNER MACHINE OPERATOR-WIRE BRUSHER Work Phone: [facility] Start: 06-19-2024 End: 06-19-2024 ambulatory JANAY Lackey FELTER Not Available Start: 06-04-2024 End: 06-11-2024 Clinisync Result Encounter Ben Florentino MD Work Phone: [facility] External [facility] Unsolicited Start: 06-04-2024 End: 06-11-2024 Clinisync Result Encounter Ben Florentino MD Work Phone: [facility] External [facility] Unsolicited Start: 05-21-2024 End: 05-22-2024 Telephone encounter Ben Florentino MD Work Phone: [facility] Start: 05-21-2024 End: 05-21-2024 ambulatory BEN FLORENTINO Not Available Start: 05-16-2024 End: 05-16-2024 Bamboo flowskristopher Florentino MD Work Phone: [facility] Start: 05-16-2024 End: 05-16-2024 Bamboo flowskristopher Florentino MD Work Phone: [facility] Start: 05-16-2024 End: 05-16-2024 Office outpatient new 45 minutes Ben Florentino MD Work Phone: [facility] Comment on above: Facial trauma, initi al encounter (Primary Dx); Nasal obstruction Start: 05-16-2024 End: 01-08-2025 ambulatory BEN FLORENTINO Not Available Start: 04-04-2024 End: 04-04-2024 Bamboo maulik Bang MD Work Phone: [facility] Start: 04-04-2024 End: 04-04-2024 Bammaria luzo maulik Bang MD Work Phone: [facility] Start: 04-04-2024 End: 04-04-2024 Office outpatient new 45 minutes Heather Bang MD Work Phone: [facility] Comment on above: Allergic rhinitis du e to dust (Primary Dx); Allergic contact dermatitis due to metals Start: 04-04-2024 End: 04-04-2024 ambulatory HEATHER BANG Not Available Start: 04-02-2024 End: 04-02-2024 Champ Bang MD Work Phone: [facility] Start: 04-02-2024 End: 04-02-2024 Bamboo flowskristopher Bang MD Work Phone: [facility] Start: 04-02-2024 End: 04-02-2024 ambulatory HEATHER BANG Not Available Start: 04-02-2024 End: 04-02-2024 Patient encounter procedure Heather Bang MD Work Phone: [facility] Comment on above: Primary osteoarthrit is of right knee Start: 03-21-2024 End: 03-21-2024 Office outpatient visit 25 minutes Mireille Zurita MD Work Phone: [facility] Comment on above: Status post cervical spinal fusion (Primary Dx); Full incontinence of feces Start: 03-21-2024 End: 03-21-2024 ambulatory [facility] Ambulatory Start: 03-16-2024 End: 03-16-2024 ambulatory [facility] Start: 03-16-2024 End: 03-16-2024 Subsequent hospital visit by physician Gabby Cobos X-Ray 2 [facility] Comment on above: Status post cervical spinal fusion Start: 03-08-2024 End: 03-08-2024 ambulatory MD Rico Purcell Work Phone: [facility] Work Phone: Start: 03-08-2024 End: 03-08-2024 Patient encounter procedure MD Rico Purcell Work Phone: [facility] Work Phone: Start: 03-08-2024 End: 03-08-2024 Patient encounter procedure MD Rico Purcell Work Phone: [facility] [address] Work Phone: Start: 03-08-2024 End: 03-08-2024 ambulatory MD Rico Purcell Work Phone: [facility] Work Phone: Start: 03-06-2024 Non-patient / Non-visit MD Femi Purcell Work Phone: [facility] G[facility] Work Phone: Start: 03-06-2024 End: 03-06-2024 Admission to same day surgery center MD Rico Purcell Work Phone: [facility] Work Phone: Start: 03-06-2024 End: 03-06-2024 ambulatory MD Rico Purcell Work Phone: [facility] Work Phone: Start: 03-05-2024 End: 03-05-2024 Telephone encounter Denise Patel MA [facility] Start: 03-01-2024 End: 03-01-2024 Bamboo flowsheet Estelle BENSON Work Phone: [facility] Start: 03-01-2024 End: 03-01-2024 Bamboo flowsheet Estelle BENSON Work Phone: [facility] Start: 03-01-2024 End: 03-01-2024 Patient encounter procedure Estelle BENSON Work Phone: [facility] Comment on above: Primary osteoarthrit is of right knee (Primary Dx); Pre-op examination Start: 03-01-2024 End: 03-01-2024 Preprocedural examination done Estelle BENSON Work Phone: [facility] Start: 03-01-2024 End: 03-01-2024 ambulatory ESTELLE PEREZ Not Available Start: 02-13-2024 End: 02-13-2024 Bamboo flowsheet Jr. Simba Gilman Stepoliva DO Work Phone: [facility] Start: 02-13-2024 End: 02-13-2024 Bamboo flowsheet JrKiersten Gilman Stepanic DO Work Phone: [facility] Start: 02-13-2024 End: 02-13-2024 Office outpatient visit 25 minutes Jr. Simba Knapp DO Work Phone: [facility] Comment on above: Primary osteoarthrit is of right knee (Primary Dx); Acute pain of right knee Start: 02-13-2024 End: 02-13-2024 ambulatory SIMBA MURRAY Not Available Start: 02-03-2024 ambulatory Facility: [facility] Start: 01-24-2024 End: 01-24-2024 ambulatory MD Rico Purcell Work Phone: [facility] Work Phone: Start: 01-24-2024 End: 01-24-2024 Patient encounter procedure MD Rico Purcell Work Phone: [facility] [place] Work Phone: Start: 01-19-2024 End: 01-19-2024 Patient encounter procedure MD Rico Purcell Work Phone: [facility] [place] Work Phone: Start: 01-19-2024 End: 01-19-2024 ambulatory MD Rico Purcell Work Phone: [facility] Work Phone: Start: 01-12-2024 End: 01-13-2024 Refill Freda Pop BURNER MACHINE OPERATOR.WIRE BRUSHER Work Phone: General Surgery Comment on above: Refill Request Start: 12-08-2023 End: 12-08-2023 Patient encounter procedure MD Rico Purcell Work Phone: [facility] Work Phone: Start: 12-08-2023 End: 12-08-2023 ambulatory MD Rico Purcell Work Phone: [facility] Work Phone: Start: 10-19-2023 End: 10-19-2023 Office outpatient visit 25 minutes Mireilel Zurita MD Work Phone: [facility] Comment on above: Status post cervical spinal fusion (Primary Dx) Start: 10-19-2023 End: 10-19-2023 ambulatory [facility] Ambulatory Start: 10-13-2023 End: 10-13-2023 Subsequent hospital visit by physician Gabby X-Ray 1 [facility] Comment on above: Cervical spondylosis with myelopathy Start: 10-13-2023 End: 10-13-2023 ambulatory [facility] Start: 10-11-2023 Refill Freda Pop BURNER MACHINE OPERATOR.WIRE BRUSHER Work Phone: General Surgery Comment on above: Refill Request Start: 06-16-2023 End: 06-16-2023 Postop follow up visit related to original px Mireille Zurita MD Work Phone: [facility] Comment on above: 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) (Primary Dx); Status post cervical spinal fusion Start: 06-16-2023 End: 06-16-2023 ambulatory [facility] Amb[facility] Start: 06-09-2023 End: 06-09-2023 Subsequent hospital visit by physician Gabby Wang X-Ray 1 [facility] Comment on above: 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) Start: 06-09-2023 End: 06-09-2023 ambulatory [facility] Start: 05-24-2023 End: 05-25-2023 ambulatory CECELIA HARKINS Not Available Start: 05-10-2023 End: 05-10-2023 Postop follow up visit related to original px Mireille Zurita MD Work Phone: [facility] Comment on above: 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) (Primary Dx) Start: 05-10-2023 End: 05-10-2023 ambulatory [facility] Ambulatory Start: 05-05-2023 End: 05-05-2023 ambulatory [facility] Start: 04-07-2023 End: 04-07-2023 ambulatory [facility] Start: 03-23-2023 Encounter for other preprocedural examination [facility] Start: 03-21-2023 End: 03-23-2023 Encounter for other preprocedural examination [facility] Start: 03-21-2023 End: 03-23-2023 Evaluation and management of inpatient Mireille Zurita MD Work Phone: [facility] 2 Comment on above: Spine disorder (Prim shante Dx); Preop testing; Cervical spondylosis with myelopathy; Coagulation defect, unspecified (CMS/HCC); Spinal stenosis, cervical region; Other spondylosis with myelopathy, cervical region; Acute post-operative pain; Drug-induced constipation; Normal pressure hydrocephalus syndrome (CMS/HCC); S/P cervical spinal fusion; Essential hypertension Start: 03-21-2023 End: 03-23-2023 Patient encounter status Mireille Zurita MD Work Phone: [facility] Work Phone: Start: 03-14-2023 End: 03-14-2023 Subsequent hospital visit by physician Par X-Ray 5 [facility] Comment on above: Cervical spondylosis with myelopathy Start: 03-14-2023 End: 03-28-2023 ambulatory MIREILLE ZURITA [facility] Start: 03-14-2023 End: 03-14-2023 Subsequent hospital visit by physician [facility] Comment on above: Cervical spondylosis with myelopathy Start: 03-14-2023 End: 03-14-2023 ambulatory RICO PURCELL [facility] Start: 02-01-2023 End: 02-01-2023 ambulatory Gino Chelsey Other [facility] [employer] Other Start: 02-01-2023 Office outpatient vi sit 25 minutes Gino Hcelsey [facility] Start: 01-20-[address] Rico Purcell Facility:[id number] Start: 01-20-2023 Office outpatient vi sit 15 minutes Rico Purcell Work Phone: [facility] [address] Work Phone: Start: 12-07-2022 Office outpatient ne w 45 minutes Rico Purcell Work Phone: [facility] [address] [address] Work Phone: Start: 12-07-2022 ambulatory [facility] Facility :[id number] Start: 08-03-2022 Office outpatient vi sit 15 minutes Keagan Chadwick [facility] Start: 08-03-2022 End: 08-03-2022 ambulatory MD Rico Purcell Work Phone: [facility] Work Phone: Start: 08-03-2022 End: 08-03-2022 Patient encounter procedure MD Rico Purcell Work Phone: [facility] Work Phone: Start: 07-30-2022 End: 07-30-2022 ambulatory MD Rico Purcell Work Phone: [facility] Work Phone: Start: 07-30-2022 End: 07-30-2022 Patient encounter procedure MD Rico Purcell Work Phone: [facility] Work Phone: Start: 07-27-2022 End: 07-27-[address] RICO PURCELL . Facility:H1 Start: 07-22-2022 Office outpatient vi sit 15 minutes Keagan Chadwick [facility] Start: 07-22-2022 End: 07-22-2022 ambulatory MD Rico Purcell Work Phone: [facility] Work Phone: Start: 07-22-2022 End: 07-22-2022 Patient encounter procedure MD Rico Purcell Work Phone: [facility] [address] Work Phone: Start: 07-21-2022 End: 07-22-2022 ambulatory MILADYS ALBERTINA Facility: Start: 06-24-2022 End: 06-25-[address] RICO PURCELL . Facility: Start: 06-16-2022 End: 06-16-2022 ambulatory Gino Chelsey Other [facility] [employer] Other Start: 06-16-2022 Office outpatient vi sit 25 minutes Gino Barbosa [facility] Nephrology Start: 06-08-2022 End: 06-08-2022 ambulatory MD Rico Purcell Work Phone: [facility] Work Phone: Start: 06-08-2022 End: 06-08-2022 Patient encounter procedure MD Rico Purcell Work Phone: [facility] Work Phone: Start: 05-27-2022 End: 05-27-2022 ambulatory FREDA POP Facility:[facility] Start: 05-27-2022 End: 05-27-2022 ambulatory Freda Pop BURNER MACHINE OPERATOR.WIRE BRUSHER Work Phone: General Surgery Comment on above: S/P repair of paraes ophageal hernia (Primary Dx); Long-term current use of proton pump inhibitor therapy Start: 05-27-2022 End: 05-27-2022 Telemedicine consultation with patient Freda Pop APRN.WIRE BRUSHER Work Phone: [facility] Start: 05-17-2022 End: 05-18-2022 ambulatory GINO CHELSEY Facility: Start: 05-12-[address] RICO PURCELL . Facili ty: Start: 05-04-2022 End: 05-05-[address] RICO PURCELL . Facility: Start: 04-08-2022 End: 04-08-2022 Admission to same day surgery center MD Rico Purcell Work Phone: [facility] Start: 04-08-2022 End: 04-08-2022 ambulatory MD Rico Purcell Work Phone: [facility] Work Phone: Start: 03-23-2022 End: 03-23-2022 ambulatory Keagan Chadwick Other [employer] Other Start: 03-23-2022 Office outpatient vi sit 15 minutes Keagan Chadwick [facility] Start: 03-22-2022 End: 03-22-2022 Patient encounter procedure MD Rico Purcell Work Phone: [facility] [address] Start: 03-16-2022 End: 03-16-2022 ambulatory Ziyad Ngo Other [employer] Other Start: 03-16-2022 Telephone encounter Ziyad TREVIÑO G Building Official Start: 02-11-2022 End: 02-11-2022 ambulatory Keagan Chadwick Other [employer] Other Start: 02-11-2022 Office outpatient vi sit 15 minutes Keagan Chadwick [facility] Start: 02-10-2022 End: 02-10-2022 ambulatory MD Rico Purcell Work Phone: [facility] Work Phone: Start: 02-10-2022 End: 02-10-2022 Patient encounter procedure MD Rico Purcell Work Phone: [facility] [address] Start: 02-08-2022 End: 02-08-[address] RICO PURCELL . Facility:H1 Start: 01-27-2022 End: 01-27-[address] RICO PURCELL . Facility:H1 Start: 01-26-2022 End: 01-27-[address] RICO PURCELL . Facility:H1 Start: 01-25-2022 End: 02-15-[address] RICO PURCELL . Facility:H1 Start: 01-07-2022 End: 01-07-[address] RICO PURCELL . Facility:H1 Start: 12-23-2021 End: 12-23-2021 ambulatory FREDA POP Facility:[facility] Start: 12-03-2021 End: 12-03-2021 ambulatory Freda Pop BURNER MACHINE OPERATOR.WIRE BRUSHER Work Phone: General Surgery Comment on above: S/P repair of paraes ophageal hernia (Primary Dx); Paraesophageal hernia Start: 12-03-2021 End: 12-03-2021 Telemedicine consultation with patient Freda Pop BURNER MACHINE OPERATOR.WIRE BRUSHER Work Phone: [facility] Start: 11-30-2021 End: 11-30-2021 ambulatory Gino Chelsey Other [facility] [employer] Other Start: 11-30-2021 Office outpatient vi sit 25 minutes Gino Chelsey [facility] Nephrology Start: 11-26-2021 End: 11-27-2021 ambulatory GINO CHELSEY [facility] [employer] Other Start: 11-26-2021 Telephone encounter Keagan Chadwick [facility] Start: 11-18-2021 ambulatory Atif Mendez MD Work Phone: General Surgery Comment on above: Nausea and December 03 a ppt. Start: 11-12-2021 End: 11-12-2021 ambulatory Riky MoraRn) Tri GUILLEN General Surgery Comment on above: Education Of Patient /family (LPEH Repair) Start: 11-12-2021 End: 11-12-2021 Patient encounter procedure Atif Mendez MD Work Phone: General Surgery Comment on above: Paraesophageal herni a (Primary Dx) Start: 11-06-2021 End: 11-06-2021 ambulatory DOROTHY SPARROW Facility:[facility] Start: 11-04-2021 ambulatory Atif Mendez MD Work Phone: General Surgery Comment on above: Updated Medical hist ory Start: 11-03-2021 Telephone encounter Atif esposito MD Work Phone: [facility] Comment on above: Orders Start: 11-03-2021 End: 11-03-2021 ambulatory RICO M TAJDora Facility:[facility] Start: 11-03-2021 Encounter for other preprocedural examination MONIKA GUERRERO [facility] Start: 10-23-2021 Telephone encounter Atif esposito MD Work Phone: General Surgery Comment on above: Request Outside [facility] Start: 10-21-2021 End: 10-21-2021 ambulatory MONIKA GUERRERO Facility:[facility] Start: 10-21-2021 End: 10-21-2021 Subsequent hospital visit by physician Arrival Time Radiology Work Phone: Radiology Pet [facility] Comment on above: Paraesophageal herni a [K44.9] Start: 10-06-2021 End: 10-06-2021 ambulatory Jorge Ramirez Other [employer] Other Start: 10-06-2021 Telephone encounter Jorge Smith [facility] Start: 10-02-2021 End: 10-02-2021 ambulatory Jorge Ramirez Other [employer] Other Start: 10-02-2021 Telephone encounter Jorge Smith [facility] Start: 10-01-2021 End: 10-01-2021 ambulatory MONIKA GUERRERO Facility:[facility] Start: 10-01-2021 End: 10-01-2021 Patient encounter procedure Atif Mendez MD Work Phone: General Surgery Comment on above: Paraesophageal herni a (Primary Dx) Start: 09-03-2021 Telephone encounter Atif esposito MD Work Phone: General Surgery Comment on above: Received Outside Med ical Records Start: 08-25-2021 End: 08-25-2021 ambulatory Jorge Emmyfandora Other [employer] Other Start: 08-25-2021 Telephone encounter Jorge TREVIÑO G Gastroenterology Start: 08-12-2021 End: 08-12-2021 ambulatory Jorge Emmyriaz Other [employer] Other Start: 08-12-2021 Telephone encounter Jorge TREVIÑO G Gastroenterology Start: 06-02-2021 End: 06-02-2021 ambulatory Gino Chelsey Other [employer] Other Start: 06-02-2021 Office outpatient vi sit 25 minutes Gino Chelsey [facility] Start: 01-12-2017 End: 01-13-2017 Ambulatory CATY YODER Facility:[facility] Start: 01-07-2017 End: 01-08-2017 Ambulatory DEFAULT PHYSICIAN Facility:[facility] Procedures Date Procedure Procedure Detail Performing Clinician Start: 12-20-2024 Radiologic examination knee 1/2 views Estelle BENSON Work Phone: Start: 10-29-2024 [facility] UA (CLEAN/CATCH) MICROSCOPIC IF INDICATE Jr. Simba Knapp DO Work Phone: Start: 07-16-2024 Urine culture Rico Purcell MD Work Phone: Start: 06-19-2024 End: 06-19-2024 SKIN / NAIL BIOPSY Janay Ngo BURNER MACHINE OPERATOR-WIRE BRUSHER Work Phone: Start: 06-19-2024 CRYOTHERAPY SKIN LESION Janay Ngo BURNER MACHINE OPERATOR-WIRE BRUSHER Work Phone: Start: 06-04-2024 ALLERGENS W/COMP RFLX AREA 5 Ben Lucas Jai dickey MD Work Phone: Start: 03-08-2024 MR lumbar spine wo con MD Rico Purcell Work Phone: Start: 03-08-2024 XR pre/post mri xray MD Rico Purcell Work Phone: Start: 03-06-2024 Esophagogastroduodenoscopy MD Rico john Work Phone: Start: 02-13-2024 Radiologic examination knee 1/2 views Jr. Simba Knapp DO Work Phone: Start: 01-19-2024 Bacteria identified in Urine by Culture MD Rico Purcell Work Phone: Start: 01-19-2024 Urine culture MD Rico Purcell Work Phone: Start: 12-08-2023 Screening mammography of bilateral breasts MD Rico Purcell Work Phone: Start: 06-09-2023 XR CERVICAL SPINE 2-3 VIEWS MIREILLE GARIBAY ON Start: 06-09-2023 Radex spine cervical 2 or 3 views Mireille Zurita MD Work Phone: Start: 05-05-2023 XR CERVICAL SPINE 2-3 VIEWS MIREILLE GARIBAY ON Start: 03-28-2023 ECG 12-LEAD RICO BINH Start: 03-28-2023 Ecg routine ecg w/least 12 lds trcg only w/o i&r Mireille Zurita MD Work Phone: Start: 03-23-2023 DISCHARGE PATIENT RICO VANGDora Start: 03-23-2023 Basic metabolic 2000 panel - Serum or Plasma RICO BINH Start: 03-23-2023 CBC panel - Blood by Automated count RICO PURCELL Start: 03-23-2023 Basic metabolic panel calcium total Albert Zurita MD Work Phone: Start: 03-22-2023 Basic metabolic 2000 panel - Serum or Plasma RICO BINH Start: 03-22-2023 CBC panel - Blood by Automated count RICO PURCELL Start: 03-22-2023 XR CERVICAL SPINE 2-3 VIEWS RICO HOY Start: 03-22-2023 Basic metabolic panel calcium total Albert Zurita MD Work Phone: Start: 03-22-2023 Radex spine cervical 2 or 3 views Emily Rina Patrick BURNER MACHINE OPERATOR-DIETETICS TEACHER Work Phone: Start: 03-21-2023 IP CONSULT TO MEDICINE RICO HOY Start: 03-21-2023 PT EVAL AND TREAT RICO HOY Start: 03-21-2023 ADMIT TO INPATIENT RICO HOY Start: 03-21-2023 PULSE OXIMETRY, CONTINUOUS RICO HOY Start: 03-21-2023 XR CERVICAL SPINE 1 VIEW RICO HOY Start: 03-21-2023 End: 03-21-2023 PULSE OXIMETRY, CONTINUOUS Janieu Melinda lewis MD Work Phone: Start: 03-21-2023 Radex spine 1 view specify level Mireille Zurita MD Work Phone: Start: 03-21-2023 XR CERVICAL SPINE 1 VIEW RICO HOY Start: 03-21-2023 Radex spine 1 view specify level Mireille Zurita MD Work Phone: Start: 03-21-2023 XR CERVICAL SPINE 1 VIEW RICO HOY Start: 03-21-2023 ADMIT TO INPATIENT RICO HOY Start: 03-21-2023 End: 03-21-2023 Radex spine 1 view specify level Mireille Zurita MD Work Phone: Start: 03-21-2023 End: 03-21-2023 Fusion Spine Anterior Cervical and Discectomy Mireille Zurita MD Work Phone: Start: 03-14-2023 XR CHEST 2 VIEWS RICO HOY Start: 03-14-2023 STAPHYLOCOCCUS AUREUS/MRSA COLONIZATION, CULTURE RICO HOY Start: 03-14-2023 CBC panel - Blood by Automated count RICO HOY Start: 03-14-2023 COAGULATION SCREEN RICO HOY Start: 03-14-2023 Comprehensive metabolic 2000 panel - Serum or Plasma RICO HOY Start: 03-14-2023 Phosphate [Mass/volume] in Serum or Plasma RCIO HOY Start: 11-06-2023 Radiologic exam chest 2 views Mireille duong MD Work Phone: Start: 03-14-2023 Cul prsmptv pthgnc organism scrn w/colony estimj Mireille Zurita MD Work Phone: Start: 03-14-2023 Comprehensive metabolic panel Mireille duong MD Work Phone: Start: 08-03-2022 MRI of right knee MD Rico Purcell Work Phone: Start: 08-03-2022 XR pre/post mri xray MD Rico Purcell Work Phone: Start: 07-30-2022 Dual energy X-ray absorptiometry MD David Purcell Work Phone: Start: 07-30-2022 Screening mammography of bilateral breasts MD Rico Purcell Work Phone: Start: 07-22-2022 XR pre/post mri xray MD Rico Purcell Work Phone: Start: 07-22-2022 MRI of head MD Rico Purcell Work Phone: Start: 04-08-2022 End: 04-08-2022 Colonoscopy MD Rico Purcell Work Phone: Start: 03-22-2022 MRI of cervical spine without contrast MD Rico Purcell Work Phone: Start: 03-22-2022 XR pre/post mri xray MD Rico Purcell Work Phone: Start: 02-10-2022 XR pre/post mri xray MD Rico Purcell Work Phone: Start: 02-10-2022 X-ray of skull MD Rico Purcell Work Phone: Start: 02-10-2022 MR lumbar spine wo con MD Rico Purcell Work Phone: Start: 10-21-2021 Ct abdomen & pelvis w/contrast material Atif Mendez MD Work Phone: Start: 10-21-2021 CREATININE BLD Atif Mendez MD Work Phone: Plan of Treatment Date Care Activity Detail Author Start: 04-08-2032 Screening for malignant neoplasm of colon [facility] Start: 11-21-2027 RSV Vaccine (1 - 1-dose 75+ series) RSV Vaccine (1 - 1-dose 75+ series) [facility] Start: 06-18-2025 End: 06-18-2025 Patient encounter procedure [facility] Start: 02-18-2025 End: 02-18-2025 Patient encounter procedure 02/18/2025 8:30 AM EDT Procedure Visit [facility] [place] [facility] [address] [place] [address] Cintia Collado MD [address] [place] [address] [facility] Start: 01-28-2025 End: 01-28-2025 Patient encounter procedure 01/28/2025 8:30 AM EDT Office Visit [facility] [place] [facility] [address] [place] [address] Cintia Collado MD [address] [place] [address] [facility] Start: 01-07-2025 Influenza vaccination Influenza Vaccine (#1) [facility] Start: 12-20-2024 End: 12-20-2024 Patient encounter procedure [facility] Comment on above: S/P total knee arthroplasty, right (Prim shante Dx) Start: 11-28-2024 End: 11-28-2024 Patient encounter procedure 11/28/2024 9:50 AM EDT Procedure Visit [facility] [address] [place] [address] Cintia Collado MD [address] [place] [address] [facility] Start: 11-19-2024 End: 11-19-2024 Patient encounter procedure [facility] Comment on above: S/P total knee arthroplasty, right (Prim shante Dx) Start: 11-17-2024 DIABETES SCREEN DIABETES SCREEN [facility] Start: 11-17-2024 Diabetes Screening Diabetes Screening [facility] Start: 11-14-2024 End: 11-14-2024 Patient encounter procedure 11/14/2024 10:00 AM EDT Office Visit [facility] [address] [place] [address] Cintia Collado MD [address] [place] [address] [facility] Start: 11-03-2024 DIABETES SCREEN DIABETES SCREEN [facility] Start: 10-08-2024 End: 10-08-2024 Patient encounter procedure 10/08/2024 1:30 PM EDT Office Visit [facility] [address] [place] [phone] Patel Garland, DRY HOUSE ATTENDANT [address] [place] [address] Arrived [facility] Comment on above: Arrived Start: 09-05-2024 End: 09-05-2024 Patient encounter procedure 09/05/2024 9:20 AM EDT Procedure Visit [facility] [address] [place] [address] Cintia Collado MD [address] [place] [address] [facility] Start: 08-22-2024 End: 08-22-2024 Patient encounter procedure 08/22/2024 9:30 AM EDT Office Visit [facility] [address] [place] [address] Cintia Collado MD [address] [place] [address] [facility] Start: 08-16-2024 End: 08-16-2024 Patient encounter procedure 08/16/2024 10:45 AM EDT Office Visit [facility] [address] [place] [address] Estelle Perez PA [address] [place] [address] [facility] Start: 08-02-2024 Total replacement of right knee joint OR Knee Arthroplasty, Total MIS (Right) [facility] Start: 07-16-2024 Bacteria identified in Urine by Culture Urine Culture [facility] Start: 07-16-2024 Urine culture [facility] Start: 07-05-2024 End: 07-05-2024 Patient encounter procedure [...] Visit [facility] [address] [facility] [address] [place] [phone] Ben Florentino MD [address] [place] [address] [facility] Start: 06-19-2024 End: 06-19-2024 Patient encounter procedure 06/19/2024 2:10 PM EST Office Visit [facility] [address] [place] [address] Janay Ngo APRN-WIRE BRUSHER [address] [place] [address] Arrived [facility] Comment on above: Arrived Start: 06-14-2024 End: 06-14-2024 Patient encounter procedure 06/14/2024 10:40 AM EST Office Visit [facility] [address] [place] [address] Janay Ngo APRN-CNP [address] [place] [address] [facility] Start: 05-21-2024 End: 05-21-2024 Patient encounter procedure 05/21/2024 10:20 AM EST Office Visit [facility] [address] [place] [address] Heather Bang MD [address] [place] [address] [facility] Start: 05-16-2024 End: 05-16-2024 Patient encounter procedure [facility] Comment on above: Arrived Start: 05-14-2024 End: 05-14-2024 Patient encounter procedure [facility] Start: 04-19-2024 End: 10-18-2024 XR Cervical spine 2 or 3 Views XR cervical spine 2-3 views Imaging Routine Status post cervical spinal fusion Expected: 04/19/2024, Expires: 10/18/2024 [facility] Service Area Work Phone: Comment on above: Expected: 04/19/2024, Expires: Start: 04-09-2024 End: 04-09-2024 Patient encounter procedure 04/09/2024 10:00 AM EST Office Visit [facility] [address] [place] [address] Heather Bang MD [address] [place] [address] [facility] Start: 04-04-2024 End: 04-04-2024 Patient encounter procedure [facility] Comment on above: Arrived Start: 03-29-2024 End: 03-29-2024 Patient encounter procedure 03/29/2024 10:00 AM EST Office Visit [facility] [address] [place] [phone] Estelle Perez PA [address] [place], [place] [phone] [facility] Start: 03-21-2024 End: 03-21-2024 Patient encounter procedure 03/21/2024 11:00 AM EST Office Visit [facility] [address] [facility] [address] [place] [address] Mireille Zurita MD [address] [place], [place] [phone] [facility] Start: 03-08-2024 MR lumbar spine wo con MR lumbar spine wo con [facility] Start: 03-08-2024 MR Lumbar spine WO contrast [facility] Start: 03-08-2024 XR pre/post mri xray XR pre/post mri xray [facility] Start: 03-08-2024 [facility] Start: 03-06-2024 End: 03-06-2024 [facility] Start: 03-01-2024 End: 03-01-2024 Patient encounter procedure 03/01/2024 11:15 AM EDT Office Visit [facility] [address] [place] [phone] Estelle Perez PA [address] [facility] [address] [place], [place] [phone] Primary osteoarthritis of right knee (Primary Dx); Pre-op examination [facility] Comment on above: Primary osteoarthritis of right knee (Pr imary Dx); Pre-op examination Start: 02-21-2024 DTaP/Tdap/Td Vaccines (2 - Td or Tdap) DTaP/Tdap/Td Vaccines (2 - Td or Tdap) [facility] Start: 02-21-2024 Urine microalbumin profile DTaP,Tdap,Td Vaccine (2 - Td or Tdap) [facility] Start: 02-13-2024 End: 02-13-2024 Patient encounter procedure 02/13/2024 11:00 AM EDT Office Visit [facility] [address] [place] [address] Jr. Simba Knapp, DO [address] [facility] [address] [place] [address] Arrived [facility] Comment on above: Arrived Start: 01-19-2024 Bacteria identified in Urine by Culture [facility] Start: 01-08-2024 Covid-19 Vaccine ( season) Covid-19 Vaccine () [facility] Start: 01-08-2024 Covid-19 Vaccine () Covid-19 Vaccine () [facility] Start: 01-08-2024 Influenza vaccination [facility] Start: 10-19-2023 End: 10-19-2023 Patient encounter procedure 10/19/2023 11:30 AM EDT Office Visit [address] [phone] Mireille Zurita MD [address] [place] [address] [facility] Start: 06-16-2023 End: 06-16-2023 Patient encounter procedure 06/16/2023 10:30 AM EST Office Visit [address] [phone] Mireille Zurita MD [address] [place] [id number] [facility] Start: 06-10-2023 End: 05-10-2024 XR Cervical spine 2 or 3 Views XR cervical spine 2-3 views Imaging Routine 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) Expected: 06/10/2023, Expires: 05/10/2024 [facility] Service Area Work Phone: Comment on above: Expected: 06/10/2023, Expires: Start: 05-12-2023 End: 05-12-2023 Patient encounter procedure 05/12/2023 8:30 AM EST Office Visit [address] [phone] Mireille Zurita MD [address] [place] [id number] [facility] Start: 05-09-2023 Advance Directive Discussion Advance Directive Discussion [facility] Start: 05-09-2023 Behavioral Health Screening Behavioral Health Screening [facility] Start: 04-07-2023 End: 04-07-2023 Patient encounter procedure 04/07/2023 1:00 PM EST Office Visit [address] [phone] Saniya Faustin, BURNER MACHINE OPERATOR-WIRE BRUSHER [address] [place] [phone] [facility] Start: 03-21-2023 End: 03-21-2023 Admission to same day surgery center 03/21/2023 7:30 AM EST - 03/21/2023 1:00 PM EST Surgery [facility] [place] [address] [place] [phone] Mireille Zurita MD [address] [place] [id number] C3-4, C4-5, C5-6, C6-7 ANTERIOR DISC EXCISION/ ALLOGRAFT FUSION & PLATE FIXATION WITH FLAT PLATE CERVICAL X-RAY [facility] [place] Comment on above: C3-4, C4-5, C5-6, C6-7 ANTERIOR DISC EXC ISION/ ALLOGRAFT FUSION & PLATE FIXATION WITH FLAT PLATE CERVICAL X-RAY Start: 03-21-2023 End: 03-21-2023 Fusion Spine Anterior Cervical and Discectomy Fusion Spine Anterior Cervical and Discectomy Spinal stenosis, cervical region Other spondylosis with myelopathy, cervical region 03/21/2023 7:30 AM EST [facility] Work Phone: Start: 03-21-2023 Subsequent hospital visit by physician 03/21/2023 6:00 AM EST Hospital Encounter [facility] [place] [address] [place] [phone] Mireille Zurita MD [address] [place] [address] Preop testing (Primary Dx); Cervical spondylosis with myelopathy; Coagulation defect, unspecified (CMS/HCC) [facility] [place] Comment on above: Preop testing (Primary Dx); Cervical spondylosis with myelopathy; Coagulation defect, unspecified (CMS/HCC) Start: 01-20-2023 FUV, Provider: Mireille Zurita, Status: Pen, Time: 1:30 PM FUV, Provider: Mireille Zurita, Status: Pen, Time: 1:30 PM [facility]-Vdwmnismdngr[facility] Work Phone: Start: 01-07-2023 Covid-19 Vaccine ( season) Covid-19 Vaccine ( season) [facility] Start: 01-07-2023 COVID-19 Vaccine ( season) COVID-19 Vaccine ( season) [facility] Start: 11-17-2022 Creatinine measurement Serum Creatinine [facility] Start: 11-17-2022 SERUM CREATININE SERUM CREATININE [facility] Start: 11-03-2022 HEMOGLOBIN/HEMATOCRIT HEMOGLOBIN/HEMATOCRIT [facility] Start: 11-03-2022 SERUM CREATININE SERUM CREATININE [facility] Start: 07-31-2022 COVID-19 Vaccine (4 - Moderna series) COVID-19 Vaccine (4 - Moderna series) [facility] Start: 07-22-2022 XR pre/post mri xray XR pre/post mri xray [facility] Start: 07-22-2022 [facility] Start: 05-09-2022 ADVANCE DIRECTIVE DISCUSSION ADVANCE DIRECTIVE DISCUSSION [facility] Start: 05-09-2022 DEPRESSION ASSESSMENT DEPRESSION ASSESSMENT [facility] Start: 04-08-2022 [facility] Start: 01-07-2022 Influenza vaccination [facility] Start: 10-01-2021 End: 12-01-2021 CREATININE BLD CREATININE BLD Lab Routine Paraesophageal hernia Expected: 10/01/2021, Expires: 12/01/2021 [facility] Work Phone: Comment on above: Expected: 10/01/2021, Expires: Start: 07-09-2021 COVID-19 VACCINE (4 - Booster for Moderna series) COVID-19 VACCINE (4 - Booster for Moderna series) [facility] Start: 05-09-2021 ADVANCE DIRECTIVE DISCUSSION ADVANCE DIRECTIVE DISCUSSION [facility] Start: 05-06-2021 COVID-19 VACCINE (4 - Booster for Moderna series) COVID-19 VACCINE (4 - Booster for Moderna series) [facility] Start: 2017 BONE DENSITY BONE DENSITY [facility] Start: 2017 Pneumococcal Vaccine: 65+ (1 of 1 - PCV) Pneumococcal Vaccine: 65+ (1 of 1 - PCV) [facility] Start: 2017 Pneumococcal Vaccine: 65+ Years (1 - PCV) Pneumococcal Vaccine: 65+ Years (1 - PCV) [facility] Start: 2017 Pneumococcal Vaccine: 65+ Years (1 of 1 - PCV) Pneumococcal Vaccine: 65+ Years (1 of 1 - PCV) [facility] Start: 2017 PNEUMOCOCCAL: 65+ (1 - PCV) PNEUMOCOCCAL: 65+ (1 - PCV) [facility] Start: 2017 PNEUMOVAX AGE 65 AND OVER WITH 5YR LOOKBACK (#1) PNEUMOVAX AGE 65 AND OVER WITH 5YR LOOKBACK (#1) [facility] Start: 2017 Screening for osteoporosis Bone Density Screening [facility] Start: 03-07-2016 DIABETES SCREEN DIABETES SCREEN [facility] Start: 04-17-2014 Shingrix Vaccine (2 of 3) Shingrix Vaccine (2 of 3) [facility] Start: 04-17-2014 Zoster Vaccines (2 of 3) Zoster Vaccines (2 of 3) [facility] Start: 2012 RSV Vaccine (1 - 1-dose 60+ series) RSV Vaccine (1 - 1-dose 60+ series) [facility] Start: 2002 SHINGRIX VACCINE (1 of 2) SHINGRIX VACCINE (1 of 2) [facility] Start: 1997 COLOGUARD (FIT-DNA) COLOGUARD (FIT-DNA) [facility] Start: 1997 Colonoscopy COLONOSCOPY [facility] Start: 1997 COLORECTAL CANCER SCREENING COLORECTAL CANCER SCREENING [facility] Start: [address] COLONOGRAPHY [facility] Start: 1997 FECAL OCCULT BLOOD FECAL OCCULT BLOOD [facility] Start: 1997 Lipid panel Lipid Screening [facility] Start: 1997 LIPID SCREEN LIPID SCREEN [facility] Start: 1997 Screening for malignant neoplasm of colon [facility] Start: 1997 SIGMOIDOSCOPY SIGMOIDOSCOPY [facility] Start: 1992 Mammography MAMMOGRAM [facility] Start: 1992 Screening for malignant neoplasm of breast [facility] Start: 11-21-1971 Urine microalbumin profile DTAP,TDAP,TD (1 - Tdap) [facility] Start: 11-21-1971 Urine screening for protein CKD: Urine Protein Screening [facility] Start: 1970 ANNUAL PCP TEAM CHRONIC DISEASE VISIT ANNUAL PCP TEAM CHRONIC DISEASE VISIT [facility] Start: 1970 BP CONTROLLED (<130/80) BP CONTROLLED (<130/80) [facility] Start: 1970 Depression Screening Depression Screening [facility] Start: 1970 Diabetes mellitus screening Diabetes Screening [facility] Start: 1970 HEPATITIS C SCREENING HEPATITIS C SCREENING [facility] Start: 1970 Hepatitis C screening Hepatitis C Screening [facility] Start: 1964 Adult depression screening assessment DEPRESSION SCREENING [facility] Start: 1957 COVID-19 VACCINE (1) COVID-19 VACCINE (1) [facility] Start: 1950 Lipid panel Lipid Panel [facility] Start: 1950 Medicare Annual Wellness Visit Medicare Annual Wellness Visit (AWV) [facility] Start: 1950 Screening for malignant neoplasm of colon [facility] Start: 1952 Screening for osteoporosis Bone Density Scan [facility] End: 03-24-2023 Basic metabolic 2000 panel - Serum or Plasma Basic metabolic panel Lab Routine Morning draw (Lab) for 3 Occurrences starting 03/22/2023 until 03/24/2023, 2 completed [facility] Work Phone: Comment on above: Morning draw (Lab) for 3 Occurrences sta rting 03/22/2023 until 03/24/2023, 2 completed End: 03-24-2023 CBC panel - Blood by Automated count CBC Lab Routine Morning draw (Lab) for 3 Occurrences starting 03/22/2023 until 03/24/2023, 2 completed [facility] Service Area Work Phone: Comment on above: Morning draw (Lab) for 3 Occurrences sta rting 03/22/2023 until 03/24/2023, 2 completed End: 10-31-2022 Ct abdomen & pelvis w/contrast material CT ABD/PEL W IVCON Radiology Routine Paraesophageal hernia 1 Occurrences starting 10/01/2021 until 10/31/2022 [facility] Work Phone: Comment on above: 1 Occurrences starting 10/01/2021 until 10/31/2022 Dermatopathology exam Dermatopat hology exam Pathology and Cytology Timed Neoplasm of unspecified behavior of bone, soft tissue, and skin Release Upon Ordering for 1 Occurrences starting 06/19/2024 [facility] Work Phone: Comment on above: Release Upon Ordering for 1 Occurrences starting 06/19/2024 End: 09-28-2022 Esophageal motility study w/interp&rpt MANOMETRY ESOPHAGEAL Endoscopy Routine Paraesophageal hernia 1 Occurrences starting 10/01/2021 until 09/28/2022 [facility] Work Phone: Comment on above: 1 Occurrences starting 10/01/2021 until 09/28/2022 End: 03-21-2023 Incentive spirometry Instruct Incentive spirometry Instruct Respiratory Care Routine Once for 1 Occurrences starting 03/21/2023 until 03/21/2023 [facility] Work Phone: Comment on above: Once for 1 Occurrences starting 03/21/20 until 03/21/2023 Noninvasive Ventilation Noninvas ykle Ventilation Respiratory Care Routine For RT frequency use only for continuous procedures with task-based reminders at 8a and 8p until discontinued starting 03/21/2023 [facility] Work Phone: Comment on above: For RT frequency use only for continuous procedures with task-based reminders at 8a and 8p until discontinued starting 03/21/2023 Patient Education [facility] Work Phone: Renal function 1999 panel - Serum or Plasma [facility] Renal function 1999 panel - Serum or Plasma [facility] Renal function 1999 panel - Serum or Plasma [facility] End: 03-22-2023 Urethral Catheter Removal Urethral Catheter Removal Procedures Routine Once for 1 Occurrences starting 03/22/2023 until 03/22/2023 [facility] Service Area Work Phone: Comment on above: Once for 1 Occurrences starting 03/22/20 until 03/22/2023 End: 06-09-2023 XR Cervical spine 2 or 3 Views [facility] Work Phone: Comment on above: Once for 1 Occurrences starting 06/09/19 until 06/09/2023 End: 10-13-2023 XR Cervical spine 2 or 3 Views [facility] Work Phone: Comment on above: Once for 1 Occurrences starting 10/13/19 until 10/13/2023 End: 03-16-2024 XR Cervical spine 2 or 3 Views [facility] Work Phone: Comment on above: Once for 1 Occurrences starting 03/16/20 until 03/16/2024 End: 03-14-2023 XR Chest 2 Views [facility] Work Phone: Comment on above: Once for 1 Occurrences starting 03/14/20 until 03/14/2023 End: 10-31-2022 XR UPPER GI SINGLE CONTRAST XR UPPER GI SINGLE CONTRAST Radiology Routine Paraesophageal hernia 1 Occurrences starting 10/01/2021 until 10/31/2022 [facility] Work Phone: Comment on above: 1 Occurrences starting 10/01/2021 until 10/31/2022 [facility] Immunizations Immunization Date Immunization Notes Care Provider Zayda hoskins 02-22-2024 COVID-19 (MODERNA) 12Y and older Rico Purcell MD Work Phone: [facility] 02-22-2024 influenza virus vaccine, unspecified formulation Estelle BENSON Work Phone: [facility] 03-02-2023 influenza virus vaccine, unspecified formulation Par 5 [facility] Work Phone: 03-02-2023 Respiratory Synctial Virus (Rsv), Unspecified Par 5 [facility] Work Phone: 06-05-2022 Moderna COVID-19 Biv al Booster 50 MCG/0.5ML Intramuscular Suspension Rico Purcell Work Phone: [facility] Work Phone: 05-06-2022 Fluad Quadrivalent 0 .5 ML Intramuscular Prefilled Syringe Rico Purcell Work Phone: [facility] Work Phone: 05-06-2022 influenza virus vaccine, unspecified formulation Freda Pop APRN.CNP Work Phone: [facility] 03-11-2021 COVID-19 mRNA-1273 (Moderna) MD Rico Purcell Work Phone: [facility] 08-10-2020 Moderna COVID-19 Vaccine 100 MCG/0.5ML Intramuscular Suspension Rico Purcell Work Phone: [facility] 08-08-2020 COVID-19 mRNA-1273 (Moderna) MD Rico Purcell Work Phone: [facility] 07-11-2020 COVID-19 mRNA-1273 (Moderna) MD Rico Purcell Work Phone: [facility] 02-18-2020 Seasonal trivalent influenza vaccine, adjuvanted, preservative free Rico Purcell Work Phone: [facility] Work Phone: 10-08-2015 influenza, seasonal, injectable Gino Barbosa Other [facility] Other 02-20-2014 tetanus toxoid, redu olena diphtheria toxoid, and acellular pertussis vaccine, adsorbed Rico Purcell Work Phone: [facility] Work Phone: 02-20-2014 zoster vaccine, live Rico Purcell Work Phone: [facility]bltct[facility] Work Phone: Payers Date Payer Category Payer Self-pay [id number] 2021 Medicare [id number] 2017 Medicare MEDICARE MEDICAR E A AND B [id number] 2017-Present [phone] [place] [address] Medicare [id number] .[id number] 2017 Medicare [id number] .[id number] 2017 Medicare supplementa l policy (as second payer) [employer] SENIOR SUPPLEMENT [id number] .[id number] 5 2017 Private Health Insurance AMANDA MARS MEDICARE SUPPLEMENT [id number] 2017-Present [phone] [address] [address] [place] [address] Indemnity [id number] [id number] .2.7.3.971346.315 2017 Private Health Insurance 1.2 .[id number] .2.7.3.757794.315 1959 Medicare [id number] 2.16.840.1.614715.19 1959 Private Health Insurance [facility] [id number] 2.16.840.1.961816.19 1959 Self-pay [id number] 1952 Unknown [id number] 2.16.840.1.538625.3.579 .2.593 1952 Unknown [id number] 2.16.840.1.557318.3.579 .2.593 1952 Unknown [id number] 2.16.840.1.766655.3.579 .2.593 1952 Unknown [id number] 2.16.840.1.532264.3.579 .2.593 1952 Unknown [id number] 2.16.840.1.050854.3.579 .2.593 1952 Unknown [id number] 2.16.840.1.897580.3.579 .2.593 1952 Unknown [id number] 2.16.840.1.496852.3.579 .2.593 1952 Unknown [id number] 2.16.840.1.521967.3.579 .2.593 1952 Unknown [id number] 2.16.840.1.979128.3.579 .2.593 1952 Unknown [id number] 2.16.840.1.221624.3.579 .2.593 1952 Unknown [id number] 2.16.840.1.853000.3.579 .2.593 1952 Unknown [id number] 2.16.840.1.096837.3.579 .2.593 1952 Unknown [id number] 2.16.840.1.517512.3.579 .2.356 1952 Unknown [id number] 2.16.840.1.378862.3.579 .2.356 1952 Unknown [id number] 2.16.840.1.730536.3.579 .2.1259 1952 Unknown [id number] 2.16.840.1.236890.3.579 .2.1247 1952 Unknown [id number] 2.16.840.1.494939.3.579 .2.1247 1952 Unknown [id number] 2.16.840.1.251893.3.579 .2.1247 1952 Unknown [id number] 2.16.840.1.249015.3.579 .2.1247 1952 Unknown [id number] 2.16.840.1.071676.3.579 .2.727 1952 Unknown [id number] 2.16.840.1.815958.3.579 .2.1246 1952 Unknown [id number] 2.16.840.1.308344.3.579 .2.1246 1952 Unknown [id number] 2.16.840.1.412995.3.579 .2.1246 1952 Unknown [id number] 2.16.840.1.730200.3.579 .2.124 1952 Unknown [id number] 2.16.840.1.886792.3.579 .2.1243 1952 Unknown [id number] 2.16.840.1.778763.3.579 .2.1243 1952 Unknown [id number] 2.16.840.1.280121.3.579 .2.1243 1952 Unknown [id number] 2.16.840.1.612117.3.579 .2.1243 1952 Unknown [id number] 2.16.840.1.474993.3.579 .2.1243 1952 Unknown [id number] 2.16.840.1.712428.3.579 .2. 1952 Unknown [id number] 2.16.840.1.606551.3.579 .2. 1952 Unknown [id number] 2.16.840.1.521888.3.579 .2.1258 1952 Unknown [id number] 2.16.840.1.296090.3.579 .2.1258 1952 Unknown [id number] 2.16.840.1.596627.3.579 .2.1258 1952 Unknown [id number] 2.16.840.1.845204.3.579 .2.1258 1952 Unknown [id number] 2.16.840.1.889459.3.579 .2.1258 1952 Unknown [id number] 2.16.840.1.884009.3.579 .2.1258 1952 Unknown [id number] 2.16.840.1.268806.3.579 .2.1258 1952 Unknown [id number] 2.16.840.1.130973.3.579 .2.1258 1952 Unknown [id number] 2.16.840.1.579341.3.579 .2.1258 1952 Unknown [id number] 2.16.840.1.755329.3.579 .2.1258 1952 Unknown [id number] 2.16.840.1.704654.3.579 .2.1258 1952 Unknown [id number] 2..840.1.631069.3.579 .2.1258 1952 Unknown [id number] 2.16.840.1.403989.3.579 .2.1258 1952 Unknown [id number] 2..840.1.494516.3.579 .2.1258 1952 Unknown [id number] 2.840.1.235487.3.579 .2.1258 1952 Unknown [id number] 2.840.1.999825.3.579 .2.1258 1952 Unknown [id number] 2.840.1.938287.3.579 .2.1258 1952 Unknown [id number] 2..840.1.493502.3.579 .2.1259 Blue Cross Blue Shield [id number] Unknown Unknown [id number] 2.16.840.1.073512.3.579 .2.531 Unknown [id number] 2.16.840.1.765384.3.579 .2.531 Unknown [id number] 2.16.840.1.149494.3.579 .2.531 Unknown [id number] 2.16.840.1.892135.3.579 .2.531 Unknown [id number] 2.16.840.1.153847.3.579 .2.531 Unknown [id number] 2.16.840.1.025181.3.579 .2.531 Unknown [id number] 2.16.840.1.268225.3.579 .2.531 Social History Date Type Detail Facility Start: 08-06-2021 End: 07-16-2024 Tobacco smoking status NHIS Never smoked tobacco [facility] Start: 11-16-2004 Alcohol intake Not Asked [facility] Start: 1950 Sex Assigned At Not on file [facility] History of tobacco use Chews Tobacco [facility] Start: 10-01-2021 End: 12-20-2024 Alcohol intake Current drinker of alcohol (finding) [facility] Start: 10-01-2021 History SDOH Alcohol Comment 1 drink monthly [facility] Start: 1950 Sex Assigned At Female [facility] Start: 09-21-2021 End: 03-21-2024 Exposure to SARS-CoV-2 (event) Not sure [facility] Start: 03-21-2023 End: 10-08-2024 Sex Assigned At [facility] Start: 12-23-2021 End: 05-24-2023 Tobacco use and exposure Smokeless tobacco non-user [facility] Tobacco smoking stat us WVIS Tobacco smoking consumption unknown [facility] Work Phone: Start: 03-22-2023 Tobacco use and exposure User of smokeless tobacco [facility] Work Phone: Start: 03-21-2023 End: 10-08-2024 History of Social function [facility] How often to you hav e a drink containing alcohol? Never [facility] How many standard drinks containing alcohol do you have on a typical day? Patient does not drink [facility] Work Phone: In the past 12 month s, was there a time when you were not able to pay the mortgage or rent on time? No [facility] Work Phone: Start: 03-22-2023 Alcohol Comment 1 drink/month [facility] Work Phone: How often to you hav e a drink containing alcohol? Monthly or less [facility] How many standard drinks containing alcohol do you have on a typical day? 1 or 2 [facility] Work Phone: Start: 09-24-2021 Gender identity Identifies as female gender (finding) [facility] Start: 09-24-2021 Sexual orientation Heterosexual (finding) [facility] Start: 07-11-2024 End: 10-10-2024 Sex Female (finding) [facility] Medical Equipment Procedure Code Equipment Code Equipment Origin al Text Equipment Identifier Dates Screw, Acp, Self Drill, 3.5 X 15mm, Variable - [id number] - [id number] Start: 03-21-2023 70 Mm 2.1 H Plate [id number] Start: 03-21-2023 Allograft, [employer] 7 X 11 X 14 - [id number] - [id number] Start: 03-21-2023 Allograft, [employer] 6 X 11 X 14 - [id number] - [id number] Start: 03-21-2023 Allograft, [employer] 7 X 11 X 14 - [id number] - [id number] Start: 03-21-2023 Allograft, [employer] 7 X 11 X 14 - [id number] - [id number] Start: 03-21-2023 Goals Date Patient Goal Desired Activity /State Personal health goal Clinical Notes 06-02-2021 to 12-20-2024 MARCELINO Garcia - 12/20/2024 10:15 AM EDTMattMARCELINO Ni - 11/19/2024 10:30 AM EDTPatient InstructionsTelephone Encounter - Patel Garland NP - 11/12/2024 11:15 AM EDT Note Date & Type Note Facility 12-20-2024 History of Presen t illness Narrative Images from the original note were not included. Orthopedic Office note: NAME: Emily Goode : 1950 (EST PT) - P/O (R) TKA 11/05/24 (6 WKS, 3 DAYS) @[facility] TODAY, 12/20/24 IN EPIC S/P PT @[facility] FINISHED PT / CONTINUES HEP. DOING WELL. [...] requiring urgent evaluation. Visit was preformed using [employer]-airplane pilot photogrammetry speech recognition. documented in this encounter [facility] 11-19-2024 History of Presen t illness Narrative Images from the original note were not included. Orthopedic Office note: NAME: Emily Goode : 1950 (EST PT) - 1ST P/O (R) TKA 11/05/24 (2 WKS) [facility] [place] @[facility] DOING WELL. CONTINUES PT / HEP [...] Valgus: negative Other Erythema: absent Scars: present (Eloy present, removed, no dehiscence or drainage) Sensation: [...] Referral Reason: Specialty Services Required Referral Location: [facility] Scheduling Requested Specialty: Physical Therapy Number of [...] requiring urgent evaluation. Visit was preformed using [employer]-airplane pilot photogrammetry speech recognition. documented in this encounter [facility] 11-19-2024 Instructions MARCELINO Garcia - 11/19/2024 10:30 [...] wound pending recheck. documented in this encounter [facility] 11-12-2024 Telephone encount er Note Post op pain rx. PDMP reviewed [facility] 11-12-2024 Miscellaneous Notes Formattin g of this note might be different from the original. Post op pain rx. PDMP reviewed documented in this encounter [facility] 11-12-2024 Note [id number] 11-06-2024 Telephone encount er Note Sharlene Hood, request Rx for zofran, post op nausea. [facility] 11-06-2024 Miscellaneous Notes Formattin g of this note might be different from the original. Sharlene Hood, request Rx for zofran, post op nausea. documented in this encounter [facility] 11-05-2024 Note Education Materials POST OPERATIVE TOTAL [...] #[address] Knapp at the office [phone] or have him paged through the hospital lcac operator [phone] for any concerns or questions #12 You [...] your blood to help prevent blood clots. [facility] 11-05-2024 Note [facility] 2WEST Clinical Discharge Summary PERSON INFORMATION Name EMILY GOODE Age 73 Years 1950 Sex FEMALE Language Lao PCP RICO PURCELL Marital Status Single Med Service Surgery Acct# Arrival 11/05/2024 06:00:34 Visit Reason SURGERY - RIGHT TOTAL KNEE Acuity LOS 000 00:31 Address: [address] [place] [address] Comment: PROVIDER INFORMATION VITALS INFORMATION Vital Sign [...] mouth) every day. potassium chloride (Potassium Chloride (Bjm-Bala-Xtp 10) 10 mEq oral tablet, extended release) [...] Follow up: With: Address: When: Estelle Perez [address] [place] [address], [facility] [address] [place] [address] Business (1) 11/19/2024 10:30 AM With: Address: When: RICO PURCELL [address] [place] [address] [place] [id number] Business (1) DIAGNOSIS Acute pain of right knee Comment: PHYS DOC NOTES [facility] 11-05-2024 Note PROCEDURE: XR Knee O ne [...] MD 11/07/24 5:09 am Technologist: Jorge MA [facility] 11-02-2024 Telephone encount er Note Post ruiz meds PDMP reviewed [facility] 11-02-2024 Miscellaneous Notes Formattin g of this note might be different from the original. Post joseph meds PDMP reviewed documented in this encounter [facility] 10-19-2024 Telephone encount er Note Called and [...] she would like to do that at [facility]. [facility] 10-19-2024 Miscellaneous Notes Formattin g of this [...] she would like to do that at [facility]. I called the patient and left a voicemail requesting a phone call back. + UTI, Rx sent to pharmacy, will need to repeat UA when complete. Thank you. Please notify pt. documented in this encounter [facility] 10-19-2024 Telephone encount er Note I called the patient and left a voicemail requesting a phone call back. [facility] 10-19-2024 Telephone encount er Note + UTI, Rx sent to pharmacy, will need to repeat UA when complete. Thank you. Please notify pt. [facility] 10-17-2024 Note PROCEDURE: XR Bone L ength [...] Rosa Bello MD 10/23/24 9:14 am Technologist: [facility] 10-08-2024 History of Presen t illness Narrative Images from the original note were not included. GENERAL HISTORY AND PHYSICAL: NAME: Emily Goode : 1950 HISTORY OF PRESENT ILLNESS: Emily Goode is an 73 y.o. @ female. Here for surgery instructions right total knee arthroplasty November 05 @ [facility]. PAST MEDICAL HISTORY: Past Medical History: Diagnosis [...] NECK SURGERY 2022 SEPTOPLASTY 1989 SINUS SURGERY .1980 SKIN CANCER EXCISION N/A [...] WALKER DR. PURCELL CLEARANCE October @ 10:30 FRANNY @ MALIK October @ 1 LUCY NOTIFIED Follow up in about 6 weeks (around 11/19/2024) for Post-Op November 19 @ 10:30 with Maricel Perez in [place]. documented in this encounter [facility] 07-11-2024 Evaluation note Diagnosis Onset Date Resolution [...] D deficiency acute 2024 8:59am [facility] Work Phone: [phone]) 260-478602-27-2025 History of Present illness Narrative* MARCELINO Garcia - 07/05/2024 9:00 AM EST Images from the original note were not included. GENERAL HISTORY AND PHYSICAL: NAME: Emily Goode : 1950 HISTORY OF PRESENT ILLNESS: Emily Goode is an 73 y.o. @ female. Here for surgery instructions -H&P RT TKA 08/02/24 @ [facility] PAST MEDICAL HISTORY: Past Medical History: Diagnosis [...] and proposed surgeryscheduled. RT TKA 08/02/24 @ [facility] PAT 07/05/23 @ 9 [facility] 07/16/24 @ [address] PURCELL 07/19/24 @ 9:30 ALLERGY TESTING 05/21/24 DR SILVA; NEGATIVE LUCY NOTIFIED PT HAS WALKER PROGRESSIVE PT MEDICARE NO PRECERT REQUIRED Follow up for Post-Op 08/16/24 @ 10:45 [facility]. documented in this encounterSoutheast Missouri [id number] Telephone encounter Note* Telephone Encounter - MARCELINO Garcia - 07/02/2024 2:28 PM EST No she can keep appt as scheduled. Thanks [facility] [id number] Miscellaneous Notes* Telephone Encounter - MARCELINO Garcia [...] interfere with her scheduled surgery. Please advise [phone] or [phone]. documented in this [facility]02-24-2025 Telephone encounter Note* Telephone Encounter - Holly Rodríguez - 07/02/2024 2:18 PM EST Patient called stating she has UTI. She will be on an antibiotic. She has her pre-op appt this weekand wants to know of she should still come in. Patient wants to know if this will interfere with her scheduled surgery. Please advise [phone] or [phone]. [facility] [id number] History of Present illness Narrative* Heather Bang MD - 07/02/2024 11:20 AM EST Emily Goode returns to the office today For [...] an as needed basis. documented in this [facility]02-19-2025 History of Present illness Narrative* Heather Bang MD - 06/27/2024 11:00 AM EST Emily Goode returns to the office today for her 1st patch test interpretation at the 48 hourmark. Her patch testing is negative for the common orthopedic metals. We agreed she will lona the areas daily and follow up in 5 days for her final patch test interpretation. documented in this [facility]02-17-2025 History of Present illness Narrative* Heather Bang [...] 1st patch test interpretation. documented in this encounterSoutheast Missouri HospitalCveymghbtk50-47-4024 History of Present illness Narrative* Ben Florentino MD - 06/20/2024 11:20 AM EST Subjective Patient ID: Emily Goode is a 73 y.o. female who presents for Facial Injury (Follow up CT [facility] 05/21/24. RAST test) CT shows no [facility] fx and RAST negative. Nasal prays still helping nasal obstruction. Family History Problem Relation Name Age of Onset Cancer Mother Saniya Goode Heart failure Father Tin Goode Hypertension Father Tin Goode Migraines Father Tin Goode Stroke Brother Davi Goode Diabetes Brother Davi Goode Cancer Brother Davi Goode Hearing loss Brother Davi Sanabriaskimberly Heart failure Brother Davi Goode Hypertension Brother Davi Sanabriasnimanoj Migraines Brother Davi Sanabriasnimanoj Diabetes Brother Elijah (Brother) Hearing loss Brother Elijah (Brother) Stroke Brother Elijah (Brother) Hearing loss Brother Ziyad (Brother) Macular degeneration Father's Sister Melanoma Neg Hx Active Ambulatory Problems Diagnosis Date Noted Abnormality of gait 08/19/2005 Anxiety 03/12/2023 Chest pain 01/07/2017 CKD (chronic kidney disease) stage 3, GFR 30-59 ml/min (HCC) ([facility]) 03/12/2023 Congenital hydrocephalus ([facility]) 02/08/2005 Dyspnea 01/07/2017 Essential hypertension ([facility]) 03/12/2023 Murmur 03/12/2023 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 [...] soft tissue, and skin (2) Left chest [place] papule Lesion biopsy Type of biopsy: tangential [...] 1 year skin exam documented in this encounterSoutheast Missouri HospitalBbawjeuipc71-73-0310 Telephone encounter Note* Telephone Encounter - Jaylin Florentino - 05/22/2024 1:39 PM EST Pt called in/told her what Dr Florentino said. [facility] HospitalGvyucibvwv49-19-7518 Miscellaneous Notes* Telephone Encounter - Jaylin Florentino [...] show any facial fracture documented in this [facility]01-14-2025 Telephone encounter Note* Telephone Encounter - Jaylin Florentino - 05/22/2024 11:44 AM EST Left message for pt to call Dr Florentino's office. [facility]Qgkxpawtqw00-54-7013 Telephone encounter Note* Telephone Encounter - Ben Florentino MD - 05/21/2024 3:08 PM EST Tell pt her CT does not show any facial fracture [facility] CenterEsgkpqjwuf23-41-9683 History of Present illness Narrative* Ben Florentino MD - 05/16/2024 10:30 AM EST Subjective Patient ID: Emily Goode is a 73 y.o. female who [...] sinus surgery with Papa Pt reports last Tuesday she fell striking her left cheek. Seen [...] Relation Name Age of Onset Cancer Mother Saniya Goode Stroke Brother Davi Greenbergbridgette Diabetes Brother Davi Greenbergbridgette Cancer Brother Dvai Greenbergbridgette Hearing loss Brother Davi Greenbergbridgette Heart failure Brother Davi Greenbergbridgette Hypertension Brother Davi Russel Migraines Brother Davi Rsusel Macular degeneration Father's Sister Heart failure Father Tin Morenokimberly Hypertension Father Tin Morenomellissamanoj Migraines Father Tin Morenomellissamanoj Diabetes Brother Elijah (Brother) Hearing loss Brother Elijah (Brother) Stroke Brother Elijah (Brother) Hearing loss Brother Ziyad (Brother) Active Ambulatory Problems Diagnosis Date Noted Age-related nuclear cataract of both eyes 05/24/2023 Abnormality of gait 08/19/2005 Anxiety 03/12/2023 Burning tongue syndrome 05/11/2024 Chest pain 01/07/2017 CKD (chronic kidney disease) stage 3, GFR 30-59 ml/min ([facility]) ([facility]) 03/12/2023 Congenital hydrocephalus ([facility]) 02/08/2005 Dyspnea 01/07/2017 Hiatal hernia 11/16/2021 Essential hypertension ([facility]) 03/12/2023 Murmur 03/12/2023 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 stenosis of cervical region ([facility]) 03/12/2023 ADITI (obstructive sleep apnea) 03/12/2023 Osteoarthritis of right knee 05/11/2024 Status post cervical spinal fusion 06/16/2023 Spine disorder 03/21/2023 Resolved Ambulatory Problems Diagnosis Date Noted No Resolved Ambulatory Problems Past Medical History: Diagnosis Date Dementia ([facility]) Dental disease Years Ear problems Child Fatigue 10+ yrs GERD (gastroesophageal reflux disease) 5+ yrs History of occlusion of patent ductus arteriosus using embolization coil HL (hearing loss) 5 yrs Hydrocephalus ([facility] Hypercholesteremia ([facility]) Hypertension ([facility]) Macular degeneration Meningitis spinal 1955 No blood [...] SURGERY .1979 TONSILLECTOMY 1954 VENTRICULOPERITONEAL SHUNT 2008 [employer] 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 Allergies Allergen Reactions Other Other [...] lung disease: animal exposure documented in this encounterSoutheast Missouri [id number] History of Present illness Narrative* Heather Bang [...] add azelastine nasal spray to [facility] [place]. Allergic contact dermatitis - patch test in 1-4 weeks. I described the need to avoid oral steroids sun bathing and topical steroids for 2 weeks prior to patch testing and the need to avoid showering exercising and sweating heavily for 48 hours after application of the patch test. documented in this encounterSoutheast Missouri HospitalZpzxrgdsey09-64-1405 History of Present illness Narrative* Heather Bang [...] longer period of time. documented in this encounterSoutheast Missouri HospitalBboewsqmep40-29-6009 History of Present illness Narrative* Mireille Zurita MD - 03/21/2024 11:00 AM EST Images from the original note were not included. [facility] Department of Neurological Surgery Established Patient Visit History of Present Illness Emily Goode is a 73 y.o. year old [...] Refusal of blood transfusions as patient is Latter day Renal artery aneurysm (CMS-HCC) Scoliosis Sleep apnea [...] the fusion looks solid. Assessment and Plan: Emily Goode is a 73 y.o. year old [...] MD, FAANS, FACS Board Certified Neurological Surgeon Core Sucker, Department of Neurological Surgery [facility] [employer] [facility] [address] [place] [address] [facility] [address] [place] [address] documented [facility]Tr[facility] Work Phone: [phone]) 554-187810-29-2024 [facility] Telephone encounter Note* Telephone Encounter - Denise Patel MA - 03/05/2024 2:00 PM EDT Patient presents in office last week 03/01 for PAT. She informed maricel that she has had issues in the past with cheap jewelry redness and puss noted. Case was discussed with Dr. Knapp who is recommending that patient proceed with allergy testing prior to proceeding with a (R) TKA @[facility]. Patient has been made aware and is understanding. Sx and upcoming appts have been cx. Referral has been sent to text transcriber. Will r/s sx once testing is scheduled. [facility] [id number] Miscellaneous Notes* Telephone Encounter - Denise Patel MA - 03/05/2024 2:00 PM EDT Patient presents in office last week 03/01 for PAT. She informed maricel that she has had issues in the past with cheap jewelry redness and puss noted. Case was discussed with Dr. Knapp who is recommending that patient proceed with allergy testing prior to proceeding with a (R) TKA @[facility]. Patient has been made aware and is understanding. Sx and upcoming appts have been cx. Referral has been sent to text transcriber. Will r/s sx once testing is scheduled. documented in this encounterSoutheast Missouri HospitalXfzjorsjjh50-80-3885 History of Present illness Narrative* MARCELINO Garcia - 03/01/2024 11:15 AM EDT Images from the original note were not included. GENERAL HISTORY AND PHYSICAL: NAME: Emily Goode : 1950 HISTORY OF PRESENT ILLNESS: Emily Goode is an 73 y.o. @ female. Here for surgery instructions - (R) TKA 03/15/2024 @[facility] PAST MEDICAL HISTORY: Past Medical History: Diagnosis [...] answered and proposed surgeryscheduled. (R) TKA 03/15 @[facility] SX INSTRUCTIONS GIVEN TODAY 03/01 @11:15AM - BLANCA PST 03/05 @10:30AM DR. PURCELL CLEARANCE 03/12 @9:15AM LUCY NOTIFIED NO PREOP PAYMENT / PRECERT ; MEDICARE Follow up for 03/29/24 @ 10:00 - Blanca concepcion/ Maricel. documented in this encounterSoutheast Missouri HospitalYbnzqnykrd99-51-6385 History of Present illness Narrative* Jr. Simba Knapp, - 02/13/2024 11:00 AM EDT Images from the original note were not included. HISTORY OF PRESENT ILLNESS: EST PT Emily Goode is an 73 y.o. @ female. EST PT WITH PATEL (LAST SEEN 08/2022) RECHECK RT KNEE PAIN FOR YEARS- SYMPTOMS GRADUALLY INCREASING -POSSIBLY DISCUSS SURGERY TODAY XRAY RT KNEE TODAY EPIC 02/13/24 XRAY EXA 08/25/22 XRAY [facility] 06/24/22 XRAY [facility] 08/03/22 MRI [facility] 08/03/22 HX CORTISONE INJECTIONS DIFFICULTY DRIVING/STAIRS-PAIN LATERAL/POSTERIOR [...] Tobacco Use: Low Risk (10/19/2023) [facility] Patient History Smoking Tobacco Use: Never Smokeless Tobacco Use: Never Passive Exposure: Not on file Alcohol Use: Not At Risk (04/07/2023) [facility], [facility] AUDIT[facility]C Frequency of Alcohol Consumption: Monthly or less Average Number of Drinks: 1 or 2 Frequency of Binge Drinking: Never IMAGING: XR knee 1 or 2 views right Imaging Result: X-rays AP and lateral of right knee showed severe Valgus deformity with voxg-kb-zsxf articulation to the lateral joint line. There [...] years old, or requires discharged to a [facility] facility, the patient may require to have additional inpatient hospital stay following the surgery. Physical therapy is contraindicated in this patient's case because of jeux-ug-tikr articulation of the patient's knee. Simba Knapp D.O. documented in this [facility]06-12-2024 History of Present illness Narrative* Mireille Zurita MD - 10/19/2023 11:30 AM EDT Images from the original note were not included. [facility] Department of Neurological Surgery Established Patient Visit History of Present Illness Emily Goode is a 72 y.o. year old [...] Refusal of blood transfusions as patient is Latter day Renal artery aneurysm (CMS-HCC) Scoliosis Sleep apnea [...] of the 4 allograft. Assessment and Plan: Emily Goode is a 72 y.o. year old [...] MD, FAANS, FACS Board Certified Neurological Surgeon Core Sucker, Department of Neurological Surgery [facility] [employer] [facility] [address] [facility] [address] [place] [address] [facility] [address] [place] [address] documented in this [facility] Work Phone: 1(106) 917-846002-08-2024 History of Present illness Narrative* Mireille Zurita MD - 06/16/2023 10:30 AM EST Images from the original note were not included. [facility] Department of Neurological Surgery Post Operative Patient Visit History of Present Illness: Emily Goode is a 72 y.o. year old [...] Refusal of blood transfusions as patient is Latter day Renal artery aneurysm (CMS/HCC) Scoliosis Sleep apnea [...] good and the construct is holding. Assessment/Plan Emily Goode is a 72 y.o. year old [...] MD, FAANS, FACS Board Certified Neurological Surgeon Core Sucker, Department of Neurological Surgery [facility] [employer] [facility] [address] [place] [address] [facility] [address] [place] [address] documented in this encounterTr[facility] System Work Phone: 1(684) 714-669201-02-2024 History of Present illness Narrative* Mireille Zurita MD - 05/10/2023 11:30 AM EST [facility] Department of Neurological Surgery Post Operative Patient Visit History of Present Illness: Emily Goode is a 72 y.o. year old [...] Refusal of blood transfusions as patient is Latter day Renal artery aneurysm (CMS/HCC) Scoliosis Sleep apnea [...] unchanged to her initial postop film. Assessment/Plan Emily Goode is a 72 y.o. year old [...] after leaving. My office canbe reached at M-C 8am-4pm. To clinicians, thank you very much [...] MD, FAANS, FACS Board Certified Neurological Surgeon Core Sucker, Department of Neurological Surgery [employer] [facility] [employer] [facility] [address] [place] [address] [facility] [address] [place] [address] documented in this [facility] Work Phone: [phone]) 704-367911-15-2023 Plan of care note* Care Plan - [...] Outcome: Adequate for Discharge 03/23/2023924 by Beth Brosnon RN Outcome: Progressing Goal: Performs ADL's with [...] side effects throughout the shift 03/23/20231005 by Bteh Bronson RN Outcome: Adequate for Discharge 03/23/2023924 [...] by Beth Bronson RN Outcome: Progressing T. [facility] Work Phone: [phone]) 914-177711-15-2023 Miscellaneous Notes* Care Plan - Beth Bronson [...] 03/23/2023924 by eBth Bronson RN Outcome: Progressing Problem: Skin Goal: [...] by end of the shift 03/23/20231005 by Bteh Bronson RN Outcome: Adequate for Discharge 03/23/2023924 [...] end of the shift 03/22/2023925 by Beth Bronosn RN Outcome: Progressing 03/22/2023921 by Beht Bronson RN Outcome: Progressing * Care Plan [...] shift Outcome: Progressing * Post-Procedure Note - PUSHPA Voss - 03/22/2023 [...] - Assisting Anesthesia staff:Anesthesiologist: Paty Jewell MD DICTATING TRANSCRIBING MACHINE SERVICER: Man Bales APRN-DICTATING TRANSCRIBING MACHINE SERVICER Procedure: Procedure(s): C3-4, C4-5, C5-6, C6-7 ANTERIOR [...] Implant Name Type Inv. Item Serial No. Rehabilitation Consultant Lot No. LRB No. Used Action ALLOGRAFT, TRIAD LORDOTIC 7 X 11 X 14 - [id number] - [id number] Spinal Hardware ALLOGRAFT, [employer] 7 X 11 X 14 [id number] [employer] N/A 1 Implanted ALLOGRAFT, TRIAD LORDOTIC 6 X 11 X 14 - [id number] - [id number] Spinal Hardware ALLOGRAFT, [employer] 6 X 11 X 14 [id number] [employer] N/A 1 Implanted ALLOGRAFT, TRIAD [employer]IC 7 X 11 X 14 - [id number] - [id number] Spinal Hardware ALLOGRAFT, [employer] 7 X 11 X 14 [id number] [employer] N/A 1 Implanted ALLOGRAFT, [employer] 7 X 11 X 14 - [id number] - [id number] Spinal Hardware ALLOGRAFT, [employer]IC 7 X 11 X 14 [id number] [employer] N/A 1 Implanted SCREW, ACP, SELF DRILL, 3.5 X 15MM, VARIABLE - [id number] Spinal Hardware SCREW, ACP, SELF DRILL, 3.5 [...] her head was placed in a beanbag 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 overhead distribution. The arms were tucked by her side. [...] appropriately. I used the awl to place airplane pilot photogrammetry holes in the 5 vertebral bodies 1 [...] None Mireille Zurita MD documented in this encounterTr[facility] System Work Phone: [phone]) [phone] Nurse Note* Beth Bronson RN - 03/23/2023 10:02 AM EST Message sent to Dr zurita and Saniya Faustin regarding patient requesting nausea medication. Saniya states she will send Patient aware [facility] Work Phone: 1(855) 252-758111-15-2023 Nurse Note* Beth Bronson RN - 03/23/2023 10:02 AM EST Message sent to Dr Pierce Faustin regarding patient requesting nausea medication. Saniya states she will send Patient aware documented in this encounterTrinity [facility] System Work Phone: [phone]) 397-951211-15-2023 Plan of care note* Care Plan - [...] by end of the shift Outcome: Progressing [facility] Work Phone: [phone]) 172-776311-15-2023 Hospital course Narrative* Saniya Faustin, BURNER MACHINE OPERATOR-WIRE BRUSHER - 03/23/2023 5:28 AM EST Discharge Diagnosis [...] Department Center 04/07/2023 1:00 PM PUSHPA Voss [id number] [place] 05/12/2023 8:30 AM Mireille Zurita MD [id number] [place] 06/16/2023 10:30 AM Mireille Zurita MD [id number] [place] PUSHPA Voss documented in this encounterTr[facility] System Work Phone: [phone] Hospital Discharge instructions* Discharge Instructions* PUSHPA Voss - 03/23/2023 5:28 AM EST May shower. Do not let water directly flow on incision. Dab / pat incision dry. DO NOT TOUCH INCISION Wear cervical collar at all times Walk hourly while awake. May not drive while wearing cervical collar. Keep hydrated. Soft regular diet documented in this encounterTrinity Health System Work Phone: [phone] History of Present illness Narrative* Nella Murillo [...] insurance, address, phone. PCP- [facility] in [place] Pt is from home, lives alone-- will [...] Physical Therapy Physical Therapy Evaluation Patient Name: Emily oGode Today's Date: 03/22/2023 Time Calculation Start Time: [...] as pt unable to turn head, look /acquisition professional stairs d/t c-collar PT Discharge Recommendations: No [...] causing loss of sleep and limitations, vp emerging media shunt, r artery aneurysm repair, sob w/ [...] Prior Function Per Pt/Caregiver Report Level of [place]: (indep) Homemaking Assistance: (indep home mgmt and driving) Precautions: Precautions Precautions Comment: (aspen c-collar, up in chair) Vital Signs: Objective Pain: Pain Assessment Pain Assessment: ( sx site) Sensation numbness tingling Cognition: Cognition [...] LLE : Within Functional Limits Outcome Measures: [facility] Basic Mobility Turning from your back to [...] PM EST Occupational Therapy Evaluation Patient Name: Emily Goode Today's Date: 03/22/2023 Time Calculation Start [...] pain, numbness/tingling B arms/legs, loss of sleep, TOY MAKER shunt, Prior to Session Communication: Bedside nurse Patient Position Received: Bed, 2 rail up Precautions: Precautions Comment: [place] collar, cervical precautions, Pain: Pain Assessment Pain Assessment: 0-10 Pain Score: 3 Pain Type: Surgical pain Pain Location: Neck Objective Cognition: Overall Cognitive Status: Within Functional Limits Home Living: Lives With: (alone; nieces supportive/will stay with patient upon discharge home. Bed/bath 1st floor, independent without device, drives. Owns rollator, cane, tub/shower with seat, grab bar & hand held shower,) Prior Function: Level of [place]: Independent with ADLs and functional transfers ADL: [...] Functional Limits LUE: Within Functional Limits Outcome Measures:[facility] Daily Activity Putting on and taking off [...] Patient/Caregiver Demonstrated Understanding: yes documented in this encounterTrinity Health System Work Phone: [phone]) 706-805011-14-2023 Consult note* PUSHPA Metcalf - 03/22/2023 12:32 PM ESTAssociated Order(s): Inpatient consult to Medicine Inpatient consult to Medicine Consult performed by: PUSHPA Metcalf Consult ordered by: MOIRA Kelly Reason for consult: medical management History Of Present Illness Emily Goode is a 72 y.o. female who [...] Refusal of blood transfusions as patient is Latter day, Renal artery aneurysm (CMS/HCC), Scoliosis, and Sleep [...] per primary/surgery service protocol Leticia Farris CNP [facility] Medicine Associated attestation - Lorri Mack DO - 03/23/2023 7:30 AM EST [...] issues arise. Thank you for this consult Lorri Mack DO [facility] Medicine [facility] Work Phone: [phone]) 911-786611-14-2023 Consult note* PUSHPA Metcalf - 03/22/2023 12:32 PM ESTAssociated Order(s): Inpatient consult to Medicine Inpatient consult to Medicine Consult performed by: PUSHPA Metcalf Consult ordered by: Emily Patrick APRN-[facility] Reason for consult: medical management History Of Present Illness Emily Goode is a 72 y.o. female who [...] Refusal of blood transfusions as patient is Latter day, Renal artery aneurysm (CMS/HCC), Scoliosis, and Sleep [...] - per primary/surgery service protocol Leticia Farris, [facility] Medicine Associated attestation - Lorri Mack DO - 03/23/2023 7:30 AM EST [...] issues arise. Thank you for this consult Lorri Mack DO [facility] Medicine * Fernando Christine MD - 03/21/2023 11:05 AM EST Reason For Consult Intra-op evaluation of thyroid gland. History Of Present Illness Emily Goode is a 72 y.o. female presenting [...] patient. Fernando Christine MD documented in this [facility] Work Phone: [phone]) 957-122711-14-2023 Plan of care note* Care Plan - [...] 03/22/2023921 by Beth Bronson RN Outcome: Progressing [facility] Work Phone: [phone]) 615-688411-14-2023 Plan of care note* Care Plan - [...] assistive devices by end of the shift 03/22/2023 09 by Beth Bronson RN Outcome: Progressing 03/22/2023921 by Beth Bronson RN Outcome: Progressing Goal: Pace activities to prevent fatigue by end of the shift 03/22/2023 09 by Beth Bronson RN Outcome: Progressing 03/22/2023921 by Beth Bronson RN Outcome: Progressing [facility] Work Phone: [phone] Plan of care note* Care Plan - [...] by end of the shift Outcome: Progressing [facility] Work Phone: [phone]) 546-383811-14-2023 Note* Post-Procedure Note - PUSHPA Voss - [...] Plan for discharge home 03/23/2023 PUSHPA Voss [facility] Work Phone: [phone]) 802-935111-13-2023 Plan of care note* Care Plan - [...] goals for the shift include pain control [facility]11-13-2023 Plan of care note* Care Plan - [...] Progressing Goal: Promote skin healing Outcome: Progressing [facility] Work Phone: [phone]) 769-377011-13-2023 Consult note* Fernando Christine MD - 03/21/2023 11:05 AM EST Reason For Consult Intra-op evaluation of thyroid gland. History Of Present Illness Emily Goode is a 72 y.o. female presenting [...] care of this patient. Fernando Christine MD [facility] Work Phone: [phone]) 563-175411-13-2023 Note* Op Note - Mireille Zurita MD [...] - Assisting Anesthesia staff:Anesthesiologist: Paty Jewell MD DICTATING TRANSCRIBING MACHINE SERVICER: Man Bales APRN-DICTATING TRANSCRIBING MACHINE SERVICER Procedure: Procedure(s): C3-4, C4-5, C5-6, C6-7 ANTERIOR [...] Implant Name Type Inv. Item Serial No. Rehabilitation Consultant Lot No. LRB No. Used Action ALLOGRAFT, TRIAD LORDOTIC 7 X 11 X 14 - [id number] - [id number] Spinal Hardware ALLOGRAFT, TRIAD LORDOTIC 7 X 11 X 14 [id number] [employer] N/A 1 Implanted ALLOGRAFT, TRIAD LORDOTIC 6 X 11 X 14 - [id number] - [id number] Spinal Hardware ALLOGRAFT, TRIAD LORDOTIC 6 X 11 X 14 [id number] [employer] N/A 1 Implanted ALLOGRAFT, TRIAD LORDOTIC 7 X 11 X 14 - [id number] - [id number] Spinal Hardware ALLOGRAFT, TRIAD LORDOTIC 7 X 11 X 14 [id number] [employer] N/A 1 Implanted ALLOGRAFT, TRIAD LORDOTIC 7 X 11 X 14 - [id number] - [id number] Spinal Hardware ALLOGRAFT, TRIAD LORDOTIC 7 X 11 X 14 [id number] [employer] N/A 1 Implanted SCREW, ACP, SELF DRILL, 3.5 X 15MM, VARIABLE - [id number] Spinal Hardware SCREW, ACP, SELF DRILL, 3.5 [...] her head was placed in a beanbag 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 overhead distribution. The arms were tucked by her side. [...] appropriately. I used the awl to place airplane pilot photogrammetry holes in the 5 vertebral bodies 1 [...] the operation. Complication: None Mireille Zurita MD [facility] Work Phone: [phone]) 625-296011-13-2023 Attending History and physical note* Mireille Zurita MD - 03/21/2023 6:50 AM EST H&P reviewed. The patient was examined and there are no changes to the H&P. Source Note - Thania ScaccrachelKATHLEENN-WIRE BRUSHER - 03/14/2023 12:30 PM EST CPM/PAT Evaluation Name: Emily Goode (Emily Goode) /Age: 711/20/1950/72 y.o. In-Person Chief Complaint: [...] Denies past issues with anesthesia. Reports current TOY MAKER shunt (2006), and hx of Right renal [...] flat platecervical x-ray w/Dr Zurita on 03/21/2023 [facility] Work Phone: [phone] History and physical note* Mireille Zurita MD - 03/21/2023 6:50 AM EST H&P reviewed. The patient was examined and there are no changes to the H&P. Source Note - PUSHPA Trejo - 03/14/2023 12:30 PM EST CPM/PAT Evaluation Name: Emily Goode (Emily Goode) /Age: 711/20/1950/72 y.o. In-Person Chief Complaint: [...] Denies past issues with anesthesia. Reports current TOY MAKER shunt (2006), and hx of Right renal [...] w/Dr Zurita on 03/21/2023 documented in this [facility] Work Phone: [phone]) [phone] Evaluation note* Encounter Date Diagnosis Assessment Notes [...] symptoms. Also she can follow-up with her train caller due to the urinary incontinence. [facility] Other 08-01-2023 History of Present illness Narrative* The patient who is a 72-year-old female came in today with a friend to discuss cervical pain and back of head pain that she has been experiencing. 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 I also suggested that she start considering getting second opinions. I am going tosee her back after the CAT scan of her cervical spine is done and we will talk about which operation to the cervical spine we would be recommending. [facility] [address] Work Phone: [phone]) [phone] Evaluation note* Encounter Date Diagnosis Assessment Notes Treatment Notes Treatment Clinical Notes Jul, TOY MAKER (ventriculoperito kym) shunt status (ICD-10 - Z98.2) [...] with the patient who understands and agrees [facility] Other 03-16-2023 Evaluation note* Encounter Date Diagnosis Assessment Notes Treatment Notes Treatment Clinical Notes Jul, TOY MAKER (ventriculoperito kym) shunt status (ICD-10 - Z98.2) [...] as-needed basis. Her shunt pumps quite well [facility] Other 02-16-2023 NotePROCEDURE: XR KNEE RT 4V [...] authenticated by: ANA ROSA BELLO Date: 2022-06-24 11:33[facility]02-08-2023 Evaluation note* Encounter Date Diagnosis Assessment [...] She reported to have Osteoporosis . Continue [employer]pt[employer] Other 01-19-2023 NoteHNO ID: [id number] Author: Freda Pop APRN.WIRE BRUSHER Service: ? Author Type: Nurse Practitioner Type: Progress Notes Filed: 05/27/2022 8:56 AM Note Text: GENERAL SURGERY CLINIC FOLLOW UP NOTE Clinic Date: 05/28/2022 Emily Goode, 71 year old CHIEF COMPLAINT: Patient presents with: 6 Month Exam: S/p paraesophageal hernia repair HPI: Emily Goode presents for follow up from paraesophageal [...] LUNGS: non labored breathing Assessment and Plan: Emily Goode is a 71 year old pleasant [...] Freda Pop APRN.CNP General Surgery [facility] [place] Medical Decision Making: Problems: Moderate: 1+ chronic illnesses with change Risk: Moderate: Drug management Medical Decision Making [facility]: [facility]* Patient Instructions* Freda Pop APRN.CNP - 05/27/2022 8:56 AM EST Continue Prevacid (lansoprazole) 30 mg daily or similar indefinitely We'll check your Upper GI, let us know once you get it so that we can be sure to get the results documented in this encounterAdena [facility]01-19-2023 History of Present illness Narrative* Freda Pop APRN.CNP - 05/27/2022 8:30 AM EST Images from the original note were not included. GENERAL SURGERY CLINIC FOLLOW UP NOTE Clinic Date: 05/28/2022 Emily Goode, 71 year old CHIEF COMPLAINT: Patient presents with: 6 Month Exam: S/p paraesophageal hernia repair HPI: Emily Goode presents for follow up from paraesophageal [...] LUNGS: non labored breathing Assessment and Plan: Emily Goode is a 71 year old pleasant [...] Freda Pop APRN.EMANUEL General Surgery Digestive Disease [place] Medical Decision Making: Problems: Moderate: 1+ chronic illnesses with change Risk: Moderate: Drug management Medical Decision Making Level: 4 - Moderate documented in this encounterAdena [facility]ayette [facility] Center12-01-2022 Procedure [facility]11-15-2022 Evaluation note* Encounter Date Diagnosis Assessment [...] reviewed these x-rays and confirmed the measurement [facility] Other 10-06-2022 Evaluation note* Encounter Date Diagnosis [...] her. A new referral will be sent. [facility] Other 08-17-2022 NoteHNO ID: [id number] Author: Freda Pop APRN.WIRE BRUSHER Service: ? Author Type: Nurse Practitioner Type: Progress Notes Filed: 12/23/2021 10:45 AM Note Text: GENERAL SURGERY CLINIC FOLLOW UP NOTE Clinic Date: 12/23/2021 Emily Cherry Russel, 71 year old [address] [place] [id number] CHIEF COMPLAINT: Patient presents with: Post Op Follow Up: S/p Paraesophageal repair 11/16/21 HPI: Emily Jo Ann Russel presents for follow up from paraesophageal [...] Freda Pop APRN.EMANUEL General Surgery [facility] [place] December 22[facility] NoteHNO ID: [id number] Author: Freda Pop APRN.EMANUEL Service: ? Author Type: Nurse Practitioner Type: Progress Notes Filed: 12/03/2021 12:10 PM Note Text: GENERAL SURGERY CLINIC FOLLOW UP NOTE - virtual visit Virtual Visit (Audio/Visual) I have discussed the nature of this visit with the patient which will occur via [facility] (Phone, Virtual Visit) and she agrees to proceed with this interaction . Clinic Date: 12/03/2021 Emily Goode, 71 year old [address] [facility] [address] CHIEF COMPLAINT: Patient presents with: Post Op Follow Up: paraesophageal hernia repair HPI: Emily Goode presents for follow up from paraesophageal [...] signs of infection PHYSICAL EXAM: [facility] 05/31/2006 - virtual visit GENERAL: No [...] Freda Pop APRN.EMANUEL General Surgery Digest[facility] Disease [place] December 03[facility]07-28-2022 History of Present illness Narrative* Freda Pop [...] with this interaction . Clinic Date: 12/03/2021 Emily Goode, 71 [facility] old [address] [facility] [address] CHIEF COMPLAINT: Patient presents with: Post Op Follow Up: paraesophageal hernia repair HPI: Emily Goode presents for follow up from paraesophageal [...] signs of infection PHYSICAL EXAM: [facility] 05/31/2006 - virtual visit GENERAL: No [...] Freda Pop APRN.EMANUEL General Surgery Digest[facility] Disease [place] December 03, 2021 documented in this encounterAdena [facility] Center07-28-2022 Instructions* Patient Instructions* Freda Pop APRN.EMANUEL - 12/03/2021 10:55 AM EDT Your post [...] then activity as tolerated documented in this encounterAdena [facility]ayette [facility] Center07-25-2022 Evaluation note* Encounter Date Diagnosis [...] She reported to have Osteoporosis . [employer] Other 07-12-2022 NoteHNO ID: [id number] Author: Angeli Rivas RN Service: Care Management [...] stay SIGNATURE: Angeli Rivas RN PATIENT NAME: Emily Goode DATE: November 17, 2021 TIME: 8:34 PM PAGER/CONTACT #: [phone] Disclaimer: The information in this determination is [...] the process utilized to ensure compliance with [facility] policy regarding Inpatient Admission and Observation Services. [...] physician's order as documented evidence of concurrence. [facility]07-12-2022 NoteHNO ID: [id number] Author: Tony Cox MD Service: General Surgery Author Type: Resident Type: Plan of Care Filed: 11/17/2021 1:32 AM Note Text: POST OPERATIVE CHECK Patient Name: Emily Goode SERVICE DATE: 11/17/2021 PRIMARY SERVICE: General [...] questions during the weekdays, please contact the [place] service pager, [phone] For questions during the nights and weekends, please contact the OnCall pager, [phone] [id number] NoteHNO ID: [id number] Author: Terry Villavicencio APRN.CRNA Service: Anesthesiology Author Type: Nurse Prune Washer Type: Anesthesia Procedure Notes Filed: 11/16/2021 12:19 [...] No SIGNATURE: Terry Villavicencio APRN.CRNA PATIENT NAME: Emily Goode DATE: November 16, 2021 TIME: 12:19 PM CSN: [id number] NoteHNO ID: [id number] Author: Terry Villavicencio APRN.CRNA Service: Anesthesiology Author Type: Nurse Prune Washer Type: Anesthesia Procedure Notes Filed: 11/16/2021 12:19 PM Note Text: ANESTHESIOLOGY PROCEDURE NOTE Airway General Information Procedure Start Time/Medication Administration: 11/16/2021 11:50 AM Patient location during procedure: OR Patient identity confirmed: arm band, care athletic team physician and patient Staffing Anesthesiologist: Julian Dotson MD DICTATING TRANSCRIBING MACHINE SERVICER: Terry Villavicencio APRN.DICTATING TRANSCRIBING MACHINE SERVICER Performed by: SHEA Indications and Patient Condition [...] intubation. SIGNATURE: Terry Villavicencio APRN.CRNA PATIENT NAME: Emily Goode DATE: November 16, 2021 TIME: 12:18 PM CSN: [id number] NoteHNO ID: [id number] Author: Riky Moura RN Service: ? Author [...] Riky Moura RN In Department: GENERAL SURGERY [facility]07-07-2022 History of Present illness Narrative* Riky [...] Op Instructions Handout - PACC Brochure - [facility] Overview Handout - Post Op Instructions Handout REFERRAL (RECOMMENDATION): None Electronically Signed By: Riky Moura RN In Department: GENERAL SURGERY documented in this encounterAdena Fayette [facility] Center07-07-2022 NoteEducation ([facility]) EMILY GOODE ([id number]) 1950 F Date Time Provider Department 11/12/21 RIKY MOURA (RN) [facility] Reason for Visit: Education Of Patient/family [904] [...] Encounter Status:Closed by RIKY MOURA RN on 11/12/21[facility] 11-12-2021 NoteHNO ID: [id number] Author: Atif Mendez MD Service: ? Author Type: Physician Type: Progress Notes Filed: 11/12/2021 1:39 PM Note Text: SURGERY PREOPERATIVE VISIT NOTE Name: Emily Goode Medical Record: [id number] Encounter No.: [id number] Emily Goode is a 70 year old female seen in surgery clinic today for their final preoperative assessment. INTERVAL NOTE: Patient needed to discuss regarding surgery. She is currently scheduled for a paraesophageal hernia repair. 10/21/2021 CT A/P 10/16/2021 esophageal manometry View External Imaging - Miscellaneous Imaging [ID [id number]] 10/07/2021 UGI Scan on 10/27/2021 ?8:25 AM by External Provider: GI BMI 31 PLANNED PROCEDURE: Paraesophageal hernia repair, possible Monico fundoplication. Patient is a Latter day. We have discussed regarding not doing a fundoplication if risk of recurrence is assessed to be on the higher side intraoperatively. 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 Pre op Who is your referring physician? Are you having poor oral intake? NO Have you had unintentional weight loss of 15 lbs/7 Kg in the last 3-6 months? NO Bowels: constipated Wound: Temperature: No Drains: No documented in this encounterAdena Fayette Medical Center07-07-2022 History of Present illness Narrative* Atif Mendez MD - 11/12/2021 11:30 AM EDT SURGERY PREOPERATIVE VISIT NOTE Name: Emily Goode Medical Record: [id number] Encounter No.: [id number] Emily Goode is a 70 year old female seen in surgery clinic today for their final preoperative assessment. INTERVAL NOTE: Patient needed to discuss regarding surgery. She is currently scheduled for a paraesophageal herniarepair. 10/21/2021 CT A/P 10/16/2021 esophageal manometry View External Imaging - Miscellaneous Imaging [ID [id number]] 10/07/2021 UGI Scan on 10/27/2021 8:25 AM by External Provider: GI BMI 31 PLANNED PROCEDURE: Paraesophageal hernia repair, possible Monico fundoplication. Patient is a Latter day. We have discussed regarding not doing a fundoplication if risk of recurrence is assessed to be on the higher side intraoperatively. 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 Although we will perform appropriate precautions [...] patient. Atif Mendez MD documented in this encounterAdena [facility] Center06-29-2022 Miscellaneous Notes* Telephone Encounter - Gee Meeks Ma - 11/04/2021 2:49 PM EDT Patient scheduled 11/06 in [place] ECHO * Telephone Encounter - Gee Meeks Ma - 11/03/2021 10:39 AM EDT Patient is in need of Echo before 11/16 for surgery. Is anyone able to assist in getting the patientin for this? documented in this encounterAdena Fayette Medical Center06-21-2022 Miscellaneous Notes* Telephone Encounter - Eleanor Dobson - 10/27/2021 3:58 PM EDT Records received and scanned.on 10/27 listed under GI and external imaging Misc. Not sure who scanned these. Thanks! * Telephone Encounter - Sabine Victoria Pss - 10/23/2021 12:04 PM EDT Requested reports from [facility]. Sent fax to [phone] -Manometry 6.10.22 -Upper GI 6..22 Sabine Victoria Pss documented in this encounterAdena Fayette Medical Center06-15-2022 NoteHNO ID: [id number] Author: RT Boni(R) Service: ? Author Type: Technologist Type: Progress Notes Filed: 10/21/2021 8:44 AM Note Text: Radiology Service Progress Note PATIENT NAME: Emily Goode DATE OF SERVICE: October 21, 2021 [...] BY: RT Boni(R) October 21, 2021 8:43 [facility]06-15-2022 NoteHNO ID: [id number] Author: Janay Jeffrey RN Service: ? Author [...] Intact SIGNATURE: Janay Jeffrey RN PATIENT NAME: Emily Goode DATE: October 21, 2021 TIME: 8:28 [facility]06-15-2022 History of Present illness Narrative* Janay Jeffrey [...] Intact SIGNATURE: Janay Jeffrey RN PATIENT NAME: Emily Goode DATE: October 21, 2021 TIME: 8:28 AM * Uyen Vaughan, RT(R) - 10/21/2021 8:15 AM EDT Radiology Service Progress Note PATIENT NAME: Emily Goode DATE OF SERVICE: October 21, 2021 [...] 21, 2021 8:43 AM documented in this encounterAdena Fayette Medical Center05-31-2022 Evaluation note* Encounter Date Diagnosis Assessment Notes Treatment Notes Treatment Clinical Notes September, Paraesophageal herni a (ICD-10 - K44.9) [facility] Other 05-26-2022 NoteHNO ID: [id number] Author: Atif Mendez MD Service: ? Author Type: Physician Type: Progress Notes Filed: 10/07/2021 8:44 PM Note Text: NEW FOREGUT PATIENT PATIENT NAME: Emily Goode REASON FOR CONSULT: Hiatal hernia REQUESTING PHYSICIAN: Dr. Jorge Ramirez DATE of SERVICE: 09/25/2021 TIME of SERVICE: 12:16 PM PCP: Monika Guerrero MD Chief Complaint: refractory GERD History of present illness: Emily Goode is a 70 year old female who is a Oriental orthodox PMH of congenital hydrocephalus ( TOY MAKER shunt), HTN, patient of Monika Guerrero MD, referred to me by Dr Ramirez for hiatal hernia with severe GERD symptoms. Patient reports heart burn, excess salivation and occasional regurgitaion. She denies any ALARM features including weight loss, GIB, odynyophagia or dysphagia. Her PSH include open appendectomy, JUANI, and TOY MAKER shunt placement. The patient's most recent EGD was done in 09/03 and the report is included below Chart Review: -hx: worsening GERD - referred by Dr. Ramirez for GERD/Hiatal Hernia Scan on 09/03/2021 ?9:36 AM by Eleanor Dobson: [facility] progress note 07/22/2021 Dr. Ramirez - 08/06/2021 EGD Scan on 09/03/2021 ?9:35 AM by Eleanor Dobson: [facility] EGD 08/06/2021 Dr. Ramirez -09/17/2015 EGD Scan on 09/03/2021 ?9:33 AM by Eleanor Dobson: [facility] Operative report 09/17/2015 Dr. Walter Difficulty swallowing [...] PH probe:not done Manometry:not done CT:not Impression: Emily Goode is a 70 year old female who is a Oriental orthodox PMH of congenital hydrocephalus ( TOY MAKER shunt), HTN, who presents with paraesophageal hernia and refractory GERD symptoms. - Follow up Manometry and UGI. Plan: Emily Goode is a 70 year old female [...] above but most relevantly she is a Latter day. She does not smoke and does not consume alcohol on a regular basis. Her physical examination reveals lower midline hernia for a total abdominal hysterectomy. She has a previous history of a TOY MAKER shunt for congenital hydrocephalus, has not followed up with a neurosurgeon for several years. (more content not included)...[facility]05-26-[facility] History of Present illness Narrative* Atif Mendez MD - 10/01/2021 10:37 AM EDT NEW FOREGUT PATIENT PATIENT NAME: Emily Goode REASON FOR CONSULT: Hiatal hernia REQUESTING PHYSICIAN: Dr. Mcconnell DATE of SERVICE: 09/25/2021 TIME of SERVICE: 12:16 PM PCP: Monika Guerrero MD Chief Complaint: refractory GERD History of present illness: Emily Goode is a 70 year old female who is a Oriental orthodox PMH of congenital hydrocephalus ( TOY MAKER shunt), HTN, patient of Monika Guerrero MD, referred to me by Dr Ramirez for hiatalhernia with severe GERD symptoms. Patient reports heart burn, excess salivation and occasional regurgitaion. She denies any ALARM features including weight loss, GIB, odynyophagia or dysphagia. Her PSH include open appendectomy, JUANI, and TOY MAKER shunt placement. The patient's most recent EGD was done in09/03 and the report is included below Chart Review: -hx: worsening GERD - referred by Dr. Ramirez for GERD/Hiatal Hernia Scan on 09/03/2021 9:36 AM by Eleanor Dobson: [facility] progress note 07/22/2021 Dr. Ramirez - 08/06/2021 EGD Scan on 09/03/2021 9:35 AM by Eleanor Dobson: [facility] EGD 08/06/2021 Dr. Ramirez -09/17/2015 EGD Scan on 09/03/2021 9:33 AM by Eleanor Dobson: [facility] Operative report 09/17/2015 Dr. Walter Difficulty swallowing [...] PH probe:not done Manometry:not done CT:not Impression: Emily Goode is a 70 year old female who is a Oriental orthodox PMH of congenital hydrocephalus ( TOY MAKER shunt), HTN, who presents with paraesophageal hernia and refractory GERD symptoms. - Follow up Manometry and UGI. Plan: Emily Goode is a 70 year old female [...] above but most relevantly she is a Latter day. She does not smoke and does not consume alcohol on a regular basis. Her physical examination reveals lower midline hernia for a total abdominal hysterectomy. She has a previous history of a TOY MAKER shunt for congenital hydrocephalus, has not followed [...] to look at the anatomy of the TOY MAKER shunt. She will see me back as soon as these are done and we will get her scheduled for surgery. Upper GI Manometry CT abdomen pelvis Latter day Weight loss as possible I have discussed [...] Level: 4 - Moderate [facility]* Yolanda Castro MA [...] Temperature: No Drains: No documented in [facility] Miscellaneous Notes* Telephone Encounter - Eleanor Dobson - 09/03/2021 9:37 AM EDT Received medical records from Dr. Ramirez. Progress Note 07/22/2021 EGD /[id number] Old Operative Report 09/17/2015 Please review. documented [facility] Evaluation note* Encounter Date Diagnosis [...] She reported to have Osteoporosis . Continue Apture Other Chiuw complaint Narrative - Reported* Patient is being seen for an initial Neurosurgical evaluation and Patient is referred by Dr. Adan Gonzalez for a 2nd opinion on her cervical spine. * Pt. is experiencing low back and neck pain. Pt. describes her symptoms as aching with tingling in the left shoulder area, and that the symptoms are constant. [id number] [address] Work Phone: Evaluation note* Diagnosis Paraesophageal hernia- Primary Diaphragmatic hernia without mention of obstruction or gangrene documented in this encounter [facility] noteNo InformationNortWell[facility] QuantiaMD Other Evaluation note* Diagnosis Paraesophageal hernia- Primary Diaphragmatic hernia without mention of obstruction or gangrene Paraesophageal hernia Diaphragmatic hernia without mention of obstruction or gangrene [facility]* Diagnosis Encounter for education- Primary Counseling NOS Paraesophageal hernia Diaphragmatic hernia without mention of obstruction or gangrene [facility]* Diagnosis S/P repair of paraesophageal hernia- Primary Other postprocedural status Paraesophageal hernia Diaphragmatic hernia without mention of obstruction or gangrene documented in this [facility] noteNo assessment information [facility] Work Phone: Evaluation note* Diagnosis S/P repair of paraesophageal hernia- Primary Other postprocedural status Long-term current use of proton pump inhibitor therapy [facility] Diagnosis Preop testing- Primary Unspecified pre-operative examination Cervical spondylosis with myelopathy Coagulation defect, unspecified (CMS/HCC) Cervical spondylosis with myelopathy Spinal stenosis, cervical region Other spondylosis with myelopathy, cervical region documented in this encounter [facility] Work Phone: Evaluation note* Diagnosis Preop testing- [...] unspecified back disorder documented in this encounter [facility] Work Phone: [phone] note* Diagnosis Cervical spondylosis with myelopathy documented in this encounter [facility] Work Phone: [phone] note* Diagnosis Cervical spondylosis with myelopathy documented in this encounter [facility] Work Phone: [phone] note* Diagnosis 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 documented in this encounter [facility] Work Phone: [phone] note* Diagnosis 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) documented in this encounter [facility] Work Phone: [phone] note* Diagnosis 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) documented in this encounter [facility] Work Phone: [phone] note* Diagnosis 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 Status post cervical spinal fusion Arthrodesis status documented in this encounter [facility] Work Phone: [phone] note* Diagnosis Paraesophageal hernia Diaphragmatic hernia without mention of obstruction or gangrene [facility] Diagnosis Cervical spondylosis with myelopathy documented in this encounter [facility] Work Phone: [phone] note* Diagnosis Status post cervical spinal fusion- Primary Arthrodesis status documented in this encounter [facility] Work Phone: [phone] note* Diagnosis Preop examination- Primary Preoperative examination, unspecified Paraesophageal hernia Diaphragmatic hernia without mention of obstruction or gangrene Communicating hydrocephalus (HCC) Communicating hydrocephalus Refusal of blood transfusions as patient is Latter day Refusal of treatment for reasons of faith or conscience Stage 3 chronic kidney disease, unspecified whether stage 3a or 3b CKD (HCC) Essential hypertension Unspecified essential hypertension ADITI (obstructive sleep apnea) Obstructive sleep apnea (adult) (pediatric) Anxiety Anxiety state, unspecified Murmur Undiagnosed cardiac murmurs Paraesophageal hernia Diaphragmatic hernia without mention of obstruction or gangrene [facility] Diagnosis Onset Date Resolution Status Anemia acute CKD (chronic kidney disease) stage 2, GFR 60-89 ml/min acute Hyperlipidemia LDL goal <130 acute [id number] acute Hypokalemia acute Hyponatremia acute Renal artery aneurysm acute Vitamin D deficiency acute [facility] Work Phone: Evaluation note* Diagnosis Paraesophageal hernia Diaphragmatic hernia without mention of obstruction or gangrene Preop examination- Primary Preoperative examination, unspecified Paraesophageal hernia Diaphragmatic hernia without mention of obstruction or gangrene Communicating hydrocephalus (HCC) Communicating hydrocephalus Refusal of blood transfusions as patient is Latter day Refusal of treatment for reasons of faith or conscience Stage 3 chronic kidney disease, unspecified whether stage 3a or 3b CKD (HCC) Essential hypertension Unspecified essential hypertension ADITI (obstructive sleep apnea) Obstructive sleep apnea (adult) (pediatric) Anxiety Anxiety state, unspecified Murmur Undiagnosed cardiac murmurs documented [facility] this [facility]* Diagnosis Primary osteoarthritis of right knee- Primary Acute pain of right knee documented in this encounter [facility]* Diagnosis Primary osteoarthritis of right knee- Primary Pre-op examination documented in this encounter [facility]* Diagnosis Primary osteoarthritis of right knee- Primary documented in this encounter [facility] note* Diagnosis Onset Date Resolution Status Anemia acute CKD (chronic kidney disease) stage 2, GFR 60-89 ml/min acute Hyperlipidemia LDL goal <130 acute [id number] acute Hypokalemia acute Hyponatremia acute Renal artery aneurysm acute Vitamin D deficiency acute TOY MAKER (ventriculoperitoneal) shunt status acute [facility] Work Phone: Evaluation note* Diagnosis Status post cervical spinal fusion Arthrodesis status documented in this encounter [facility] Work Phone: Evaluation note* Diagnosis Status post cervical spinal fusion- Primary Arthrodesis status Full incontinence of feces documented in this encounter [facility] Work Phone: Evaluation note* Diagnosis Primary osteoarthritis of right knee documented in this encounter [facility]* Diagnosis Allergic rhinitis due to dust- Primary Allergic rhinitis due to other allergen Allergic contact dermatitis due to metals [facility]* Diagnosis Facial trauma, initial encounter- Primary Nasal obstruction Other diseases of nasal cavity and sinuses documented in this encounter [facility]* Diagnosis Melanocytic nevus of trunk- Primary Benign neoplasm of skin of trunk, except scrotum Melanocytic nevus of face, other location Capillary angioma Nevus, non-neoplastic Lentigines Seborrheic keratosis Actinic keratosis Neoplasm of unspecified behavior of bone, soft tissue, and skin documented in [facility] encounter [facility]* Diagnosis Nasal obstruction- Primary Other diseases of nasal cavity and sinuses documented in this encounter [facility]* Diagnosis Allergic contact dermatitis due to metals- Primary documented in this encounter [facility]* Diagnosis Allergic contact dermatitis due to metals- Primary documented in this encounter [facility]* Diagnosis Allergic contact dermatitis due to metals- Primary documented in this encounter [facility]* Diagnosis Pre-op examination- Primary Primary osteoarthritis of right knee documented in this encounter [facility]* Diagnosis Primary osteoarthritis of right knee- Primary documented in this encounter [facility]* Diagnosis Onset Date Resolution Status Admit Date CKD (chronic kidney disease) stage 3, GFR 30-59 ml/min acute July 11, 2024 8:59am Hyperlipidemia LDL goal <130 acute July 11, 2024 8:59am Hypertensive chronic kidney disease with stage 1 through stage 4 chronic ki acute July 11 8:59am Hypokalemia acute July 11 8:59am Hyponatremia acute July 11, 025 8:59am Vitamin D deficiency acute 2024 8:59am [facility] Work Phone: Evaluation note* Diagnosis Primary osteoarthritis of right knee- Primary Pre-op exam documented in this encounter [facility]* Diagnosis Acute cystitis without hematuria- Primary documented in this encounter [facility]* Diagnosis Primary osteoarthritis of right knee- Primary documented in this encounter [facility]* Diagnosis Postoperative nausea- Primary documented in this encounter [facility]* Diagnosis Primary osteoarthritis of right knee documented in this encounter [facility]* Diagnosis S/P total knee arthroplasty, right- Primary documented in this encounter [facility]* Diagnosis S/P total knee arthroplasty, right- Primary documented in this encounter [facility] [...] 1:18pm Hypokalemia acute January 1:18pm Hyponatremia acute January 1:18pm Iron deficiency anemia acute 2024 1:18pm Vitamin D deficiency acute Jan 1:18pm [facility] Work Phone: History and physical note Author Jorge Ramirez [facility] April 08, 2022 9:25am Note Date/Time April 08, 2022 9 :25am [facility] [address] [place] [address] Gastroenterology H&P Signed Patient: Emily Goode MR#: [id number] : 1950 Acct:[id number] Age/Sex: 71 / F Adm Date: 2 Loc: Room: Type: [facility] Attending Dr: Jorge Ramirez MD Copies to: MD Rico Clements MD~ Date of Service: 04/08/2022 HISTORY [...] signed by Jorge Ramirez MD> 04/08/[address] [facility] Work Phone: History and physical note Author Jorge Ramirez [facility] March 06, 2024 1:07pm Note Date/Time March 06, 2024 1 :07pm [facility] [address] [place] [address] Gastroenterology H&P Signed Patient: Emily Goode MR#: [id number] : 1950 Acct:[id number] Age/Sex: 73 / F Adm Date: 4 Loc: Room: Type: [facility] Attending Dr: Jorge Ramirez MD Copies to: MD Rico Clements MD~ Date of Service: 03/06/2024 HISTORY [...] signed by Jorge Ramirez MD> 03/06/[address] [facility] Work Phone: Hisadcr general Narrative - Reported* Type Description Date [...] aldoste ronism Hospitalization History same as above [facility] Other Hisqfma general Narrative - Reported* Type Description Date [...] aldoste ronism Hospitalization History same as above [facility] Other History of Present illness Narrative* The [...] would like toproceed. * She is a Latter day and so we definitely discussed not using blood products. She also has a TOY MAKER shunt and and so we are going to make certain that the monitoring team knows where the tubing is so that we do not accidentally stick in electrode into it. She is going to consider her options and tell us when she wants to schedule the surgery. [id number] [address] Work Phone: Hospital Discharge instructions [...] Follow up with PCP. - Office number [phone].[facility] Work Phone: Reason for referral (narrative)* Consultation (Routine) - Pending Review Specialty Diagnoses / Procedures Referred By Heidi li Referred To Contact Physical Therapy Diagnoses 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) Status post cervical spinal fusion Mireille Zurita MD [address] [place] [address] Referral ID Status Reason Start Date Expiration Date Visits Requested Visits Authorized [id number] Pending Review Specialty Services Required 06/16/2023 06/15/2024 1 1 [facility] Work Phone: Reason for referral (narrative)No reason for referral information [facility] Work Phone: Reason for visit NarrativeReferral update - pain managementNocameron [facility] [employer] Other Reason for visit Narrative* Imaging (Routine) - Authorized Specialty Diagnoses / Procedures Referred By Contac t Referred To Contact Radiology Diagnoses Status post cervical spinal fusion Procedures XR cervical spine 2-3 views Mireille Zurita MD [address] [place] [address] Phone: tel: fax: Referral ID Status Reason Start Date Expiration Date Visits Requested Visits Authorized [id number] Authorized Perform Procedure 10/19/2023 10/18/2024 1 1 [facility] Work Phone: Reason for visit Narrative* Consultation (Routine) - Closed Specialty Diagnoses / Procedures Referred By Contac t Referred To Contact Allergy Diagnoses Primary osteoarthritis of right knee Procedures DC OFFICE/OUTPATIENT NEW HIGH MDM 60 MINUTES Jr. Simba Knapp DO [address] [facility] [address] [place] [address] Phone: tel: fax: Heather Bang MD [address] [facility] [address] [place] [address] Phone: tel: fax: Referral ID Status Reason Start Date Expiration Date V isits Requested Visits Authorized [id number] Closed Specialty Services Required 03/05/2024 09/01/2024 1 1 [facility]* Rehabilitation - Outpatient (Routine) - Closed Specialty Diagnoses / Procedures Referred By Contac t Referred To Contact Physical Therapy Diagnoses Pre-op examination Primary osteoarthritis of right knee Procedures DC OFFICE/OUTPATIENT NEW HIGH MDM 60 MINUTES Estelle Perez PA [address] [facility] [address] [place] [address] Phone: tel: fax: [facility] [address] [facility] [address] [place] [address] Phone: tel: fax: Referral ID Status Reason Start Date Expiration Date V isits Requested Visits Authorized [id number] Closed Consult and Treat 07/05/2024 01/01/2025 30 30 [facility] Summary Purpose Family History Relationship Condition Age at Onset [...] Malignant neoplasm of stomach Unknown Advance Directives Documents on File Type Date Recorded Patient Pencil Inspector Expl anation Advance Directive(s) 06/23/2006 12:00 AM Documents on File Type Date Recorded Patient Pencil Inspector Expl anation Advance Directive(s) 06/23/2006 12:00 AM Documents on File Type Date Recorded Patient Pencil Inspector Expl anation Advance Directive(s) 11/03/2021 10:09 AM Advance Directive(s) 06/23/2006 12:00 AM Documents on File Type Date Recorded Patient Pencil Inspector Expl anation Advance Directive(s) 11/10/2021 3:28 PM Advance Directive(s) 11/03/2021 10:09 AM Advance Directive(s) 06/23/2006 12:00 AM Advance Directive Response Recorded Date/ Time Advance Directives Yes January 11:06am Advance Directive Response Recorded Date/ Time Advance Directives Yes January 10:06am Documents on File Type Date Recorded Patient Pencil Inspector Expl anation Advance Directive(s) 11/03/2021 10:09 AM [...] Documents on File Type Date Recorded Patient Pencil Inspector Expl anation Advance Directive(s) 11/03/2021 10:09 AM [...] Documents on File Type Date Recorded Patient Pencil Inspector Expl anation Power of Sanitation Laborer 06/11/2024 10:51 PM Sarah Zhou IMG_[id number] 100.jpeg Power of Sanitation Laborer 06/11/2024 10:51 PM IMG_0 101.jpeg Power of Sanitation Laborer 06/11/2024 10:51 PM IMG_0 102.jpeg Power of Sanitation Laborer 06/11/2024 10:51 PM IMG_0 103.jpeg Healthcare Agents [...] Documents on File Type Date Recorded Patient Pencil Inspector Expl anation Power of Sanitation Laborer 06/11/2024 10:51 PM Sarah Zhou IMG_0 100.jpeg Power of Sanitation Laborer 06/11/2024 10:51 PM IMG_0 101.jpeg Power of Sanitation Laborer 06/11/2024 10:51 PM IMG_0 102.jpeg Power of Sanitation Laborer 06/11/2024 10:51 PM IMG_0 103.jpeg Healthcare Agents [...] p Communication Sarah Howard Health Care Agent Reason for Referral Specialty Diagnoses / Procedures Referred By Contac t Referred To Contact CT IMAGING Diagnoses Paraesophageal hernia Procedures CT ABD/PEL W IVCON CT ABD & P[place] [address] [place] [address] Ct Imaging Referral ID Status Reason Start Date Expiration Date Visits Requested Visits Authorized [id number] Authorized Auto-Generat ed Referral 10/01/2021 10/31/2022 1 1 Specialty Diagnoses / Procedures Referred By Contac t Referred To Contact XR IMAGING Diagnoses Paraesophageal hernia Procedures XR UPPER GI SINGLE CONTRAST RADIOLOGIC EXAM UPR GI TR[place] [address] [place] [address] Xr Imaging Referral ID Status Reason Start Date Expiration Date Visits Requested Visits Authorized [id number] Pending Review Auto-Generat ed Referral 10/01/2021 10/31/2022 1 1 Specialty Diagnoses / Procedures Referred By Contac t Referred To Contact [facility] Diagnoses Paraesophageal hernia Procedures MANOMETRY ESOPHAGEAL ESOPHAGEAL MOTILITY STUDY W/INTERP&[place] [address] [place] [address] [facility] [address] [place] [address] Referral ID Status Reason Start Date Expiration Date Visits Requested Visits Authorized [id number] Pending Review Auto-Generat ed Referral 10/01/2021 09/28/2022 1 1 Reason *Waiting for appt Evaluate and Treat Back and Leg Pain Diagnosis 1 DDD (degenerative di sc disease), lumbar (M51.36) Referral Organization [facility] urosurgery Referring Provider First Name Keagan Referring Provider Last Name Farrukh Referring Provider Specialty Neurologica l Surgery Referred Organization [facility] Pain Managemen t Bone [place] Referred Provider Ziyad Ngo Referred Address [address] [facility] Referred Provider Specialty Pain Medicin e Referral Priority Routine General Notes Liliana Sagastume 022 02:47:54 PM >Received today and sent P2P Specialty Diagnoses / Procedures Referred By Contac t Referred To Contact Radiology Diagnoses Cervical spondylosis with myelopathy Procedures XR chest 2 views Mireille Zurita MD [address] [place] [address] Referral ID Status Reason Start Date Expiration Date Visits Requested Visits Authorized [id number] Authorized Perform Procedure 03/10/2023 03/09/2024 1 1 Specialty Diagnoses / Procedures Referred By Contac t Referred To Contact Diagnoses Acute post-operative pain S/P cervical spinal fusion Saniya Faustin, BURNER MACHINE OPERATOR-WIRE BRUSHER [address] [place], [place] [address] Referral ID Status Reason Start Date Expiration Date Visits Re quested Visits Authorized [id number] Closed 1 1 Specialty Diagnoses / Procedures Referred By Contac t Referred To Contact Diagnoses Cervical spondylosis with myelopathy Procedures ECG 12 Lead Mireille Zurita MD [address] [place] [address] Referral ID Status Reason Start Date Expiration Date V isits Requested Visits Authorized [id number] Pending Review 03/10/2023 03/09/2024 1 1 Specialty Diagnoses / Procedures Referred By Contac t Referred To Contact Radiology Diagnoses 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 stenosis of cervical region (CMS/[facility]) Procedures XR cervical spine 2-3 views Mireille Zurita MD [address] [place] [address] Referral ID Status Reason Start Date Expiration Date Visits Requested Visits Authorized [id number] Authorized Perform Procedure 05/10/2023 05/09/2024 1 1 Specialty Diagnoses / Procedures Referred By Contac t Referred To Contact Radiology Diagnoses Cervical spondylosis with myelopathy Procedures XR cervical spine 2-3 views Mireille Zurita MD [address] [place] [phone] Referral ID Status Reason Start Date Expiration Date Visits Requested Visits Authorized [id number] Authorized Perform Procedure 06/16/2023 06/15/2024 1 1 Specialty Diagnoses / Procedures Referred By Contac t Referred To Contact Radiology Diagnoses Status post cervical spinal fusion Procedures XR cervical spine 2-3 views Mireille Zurita MD [address] [place], [place] [address] Referral ID Status Reason Start Date Expiration Date Visits Requested Visits Authorized [id number] Authorized Perform Procedure 10/19/2023 10/18/2024 1 1 Specialty Diagnoses / Procedures Referred By Contac t Referred To Contact CT IMAGING Diagnoses Paraesophageal hernia Procedures CT ABD/PEL W IVCON CT ABD & PELVIS W/[place] [address] [facility] [address] [place] [address] Ct Imaging [place] [address] Referral ID Status Reason Start Date Expiration Date V isits Requested Visits Authorized [id number] Closed Auto-Generate d Referral 10/01/2021 10/31/2022 1 [...] GFR 60-89 ml/min Hyperlipidemia LDL goal <130 [id number] Hypokalemia Hyponatremia Renal artery aneurysm Vitamin D deficiency Chief Complaint Screening E87.6 I12.9 E55.9 RENAL 6 MONTH F/U hiatal hernia hiatal hernia Reason for Visit Anemia CKD (chronic kidney disease) stage 2, GFR 60-89 ml/min Hyperlipidemia LDL goal <130 [id number] Hypokalemia Hyponatremia Renal artery aneurysm Vitamin D deficiency Chief Complaint E87.6 I12.9 E55.9 RENAL 6 MONTH F/U hiatal hernia hiatal hernia r15.9 shunt check, having MRI in the morning Reason for Visit Anemia CKD (chronic kidney disease) stage 2, GFR 60-89 ml/min Hyperlipidemia LDL goal <130 [id number] Hypokalemia Hyponatremia Renal artery aneurysm Vitamin D deficiency Chief Complaint E87.6 I12.9 E55.9 RENAL 6 MONTH F/U hiatal hernia hiatal hernia r15.9 shunt check, having MRI in the morning Reason for Visit Anemia CKD (chronic kidney disease) stage 2, GFR 60-89 ml/min Hyperlipidemia LDL goal <130 [id number] Hypokalemia Hyponatremia Renal artery aneurysm Vitamin D deficiency TOY MAKER (ventriculoperitoneal) shunt status Chief Complaint Admit Date [...] August 02, 2024 7:3 0am Chief Complaint Admit Date renal 6 month [...] January 08, 2025 1:18pm Iron deficiency anemia January 08 1:18pm Vitamin D deficiency January 08, 2025 1:18pm Chief Complaint * Patient is being seen for Patient is here for follow-up after completing her cervical CT-scan. and a follow-up Neurosurgical visit. * Pt. is experiencing neck and low back pain. Pt. describes her symptoms as aching, and that the symptoms are intermittent. Additional Source Comments INFORMATION SOURCE (unrecogn ized section and content) DATE CREATED AUTHOR 11/02/2017 [facility] DATE CREATED AUTHOR AUTHOR'S ORGANIZ ATION 11/25/2021 [facility] DATE CREATED AUTHOR AUTHOR'S ORGANIZ ATION 06/02/2022 [facility] DATE CREATED AUTHOR AUTHOR'S ORGANIZ ATION 07/31/2022 [facility] DATE CREATED AUTHOR AUTHOR'S ORGANIZ ATION 01/22/2023 [employer] DATE CREATED AUTHOR AUTHOR'S ORGANIZ ATION 03/30/2023 [facility] [place] DATE CREATED AUTHOR AUTHOR'S ORGANIZ ATION 05/29/2023 [facility] DATE CREATED AUTHOR AUTHOR'S ORGANIZ ATION 01/20/2024 [facility] DATE CREATED AUTHOR AUTHOR'S ORGANIZ ATION 02/05/2024 Perez Saad [facility] DATE CREATED AUTHOR AUTHOR'S ORGANIZ ATION 03/22/2024 [facility] DATE CREATED AUTHOR AUTHOR'S ORGANIZ ATION 03/23/2024 [facility] DATE CREATED AUTHOR AUTHOR'S ORGANIZ ATION 10/11/2024 [facility] DATE CREATED AUTHOR AUTHOR'S ORGANIZ ATION 11/28/2024 [facility] DATE CREATED AUTHOR AUTHOR'S ORGANIZ ATION 12/24/2024 [facility] EPIC Source Comments (unrecognize d section and content) In the event this informatio n is protected by the Federal Confidentiality of Alcohol and Drug Abuse Patient Records regulations: The Federal rules restrict any use of the information to criminally investigate or prosecute any alcohol or drug abuse patient.[facility] the event this information is protected by the Federal Confidentiality of Alcohol and Drug Abuse Patient Records regulations: The Federal rules restrict any use of the information to criminally investigate or prosecute any alcohol or drug abuse patient.[facility] the event this information is protected by the Federal Confidentiality of Alcohol and Drug Abuse Patient Records regulations: The Federal rules restrict any use of the information to criminally investigate or prosecute any alcohol or drug abuse patient.[facility] the event this information is protected by the Federal Confidentiality of Alcohol and Drug Abuse Patient Records regulations: The Federal rules restrict any use of the information to criminally investigate or prosecute any alcohol or drug abuse patient.[facility] the event this information is protected by the Federal Confidentiality of Alcohol and Drug Abuse Patient Records regulations: The Federal rules restrict any use of the information to criminally investigate or prosecute any alcohol or drug abuse patient.[facility] Center[facility] the event this information is protected by the Federal Confidentiality of Alcohol and Drug Abuse Patient Records regulations: The Federal rules restrict any use of the information to criminally investigate or prosecute any alcohol or drug abuse patient.[facility] the event this information is protected by the Federal Confidentiality of Alcohol and Drug Abuse Patient Records regulations: The Federal rules restrict any use of the information to criminally investigate or prosecute any alcohol or drug abuse patient.[facility] Center[facility] the event this information is protected by the Federal Confidentiality of Alcohol and Drug Abuse Patient Records regulations: The Federal rules restrict any use of the information to criminally investigate or prosecute any alcohol or drug abuse patient.[facility] Center[facility] the event this information is protected by the Federal Confidentiality of Alcohol and Drug Abuse Patient Records regulations: The Federal rules restrict any use of the information to criminally investigate or prosecute any alcohol or drug abuse patient.[facility] Center[facility] the event this information is protected by the Federal Confidentiality of Alcohol and Drug Abuse Patient Records regulations: The Federal rules restrict any use of the information to criminally investigate or prosecute any alcohol or drug abuse patient.[facility] Center[facility] the event this information is protected by the Federal Confidentiality of Alcohol and Drug Abuse Patient Records regulations: The Federal rules restrict any use of the information to criminally investigate or prosecute any alcohol or drug abuse patient.[facility] Center[facility] the event this information is protected by the Federal Confidentiality of Alcohol and Drug Abuse Patient Records regulations: The Federal rules restrict any use of the information to criminally investigate or prosecute any alcohol or drug abuse patient.[facility] Center[facility] the event this information is protected by the Federal Confidentiality of Alcohol and Drug Abuse Patient Records regulations: The Federal rules restrict any use of the information to criminally investigate or prosecute any alcohol or drug abuse patient.[facility] Reason for Visit (unrecogniz ed [...] XR chest 2 views Mireille Zurita MD [address] [place] [address] Referral ID Status Reason Start Date Expiration Date Visits Requested Visits Authorized [id number] Authorized Perform Procedure 03/10/2023 03/09/2024 1 1 Specialty Diagnoses / Procedures Referred By Contac t Referred To Contact Diagnoses Spinal stenosis, cervical region Other spondylosis with myelopathy, cervical region Spinal stenosis, cervical region [M48.02] Other spondylosis with myelopathy, cervical region [M47.12] Procedures DC ARTHRD ANT INTERDY CERVCL BELW C2 EA ADDL NTRSPC DC ARTHRD ANT INTERBODY DECOMPRESS CERVICAL BELW C2 DC ALLOGRAFT FOR SPINE SURGERY ONLY STRUCTURAL DC ANTERIOR INSTRUMENTATION 4-7 VERTEBRAL SEGMENTS C3-4, C4-5, C5-6, C6-7 ANTERIOR DISC EXCISION/ ALLOGRAFT FUSION & PLATE FIXATION WITH FLAT PLATE CERVICAL X-RAY Mireille Zurita MD [address] [place], [place] [id number] [address] [address] Referral ID Status Reason Start Date Expiration Date Visits Re quested Visits Authorized [id number] 1 1 Specialty Diagnoses / Procedures Referred By Contac t Referred To Contact Diagnoses Cervical spondylosis with myelopathy Procedures ECG 12 Lead Mireille Zurita MD [address] [place] [address] Referral ID Status Reason Start Date Expiration Date V isits Requested Visits Authorized [id number] Pending Review 03/10/2023 03/09/2024 1 1 Reason Comments Post-op Visit Specialty Diagnoses / Procedures Referred By Contac t Referred To Contact Radiology Diagnoses 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 stenosis of cervical region ([facility] Procedures XR cervical spine 2-3 views Mireille Zurita MD [address] [place] [address] Referral ID Status Reason Start Date Expiration Date Visits Requested Visits Authorized [id number] Authorized Perform Procedure 05/10/2023 05/09/2024 1 1 Reason Comments Post-op Spine Surgery Intermittent neck stiffness and headaches. Reason Comments Refill Request Specialty Diagnoses / Procedures Referred By Contac t Referred To Contact Radiology Diagnoses Cervical spondylosis with myelopathy Procedures XR cervical spine 2-3 views Mireille Zurita MD [address] [place] [address] Referral ID Status Reason Start Date Expiration Date Visits Requested Visits Authorized [id number] Authorized Perform Procedure 06/16/2023 06/15/2024 1 1 Reason Comments Follow-up Patient is having no symptoms. Reason Comments Radiology CT Specialty Diagnoses / Procedures Referred By Contac t Referred To Contact CT IMAGING Diagnoses Paraesophageal hernia Procedures CT ABD/PEL W IVCON CT ABD & PELVIS W/[place] [address] [address] [place] [address] [place] [address] Referral ID Status Reason Start Date Expiration Date V isits Requested Visits Authorized [id number] Closed Auto-Generate d Referral 10/01/2021 10/31/2022 1 [...] Status: Active Member Role Status Dates Rico Purcell MD Primary Care Provider Active Team Status: Active Member Role Status Dates Rico Purcell MD Primary Care Provider Active Start: January 02, 2025 Gino Barbosa MD Attending Provider Active Start : January 02, 2025 Team Status: Inactive Member Role Status Dates Rico Purcell MD Primary Care Provider Active Start: January 08, 2025 End: January 08, 2025 Gino Barbosa MD Attending Provider Active Start : January 08, 2025 End: January 08, 2025 Team Status: Active Member Role Status Dates Rico Purcell MD Primary Care Provider Active Team Status: Inactive Member Role Status Dates Rico Purcell MD Primary Care Provider Active Start: July 16, 2024 End: July 16, 2024 Simba Knapp Jr, DO Attending Provider Active Start: July 16, 2024 End: July 16, 2024 Team Status: Inactive Member Role Status Dates Rico Purcell MD Primary Care Provider Active Start: August 02, 2024 End: August 02, 2024 Simba Knapp Jr, DO Attending Provider Active Start: August 02, 2024 End: August 02, 2024 Team Status: Active Member Role Status Dates Rico Purcell MD Primary Care Provider Active Start: June 27, 2024 Gino Barbosa MD Attending Provider Active Start : June 27, 2024 Team Status: Inactive Member Role Status Dates Rico Purcell MD Primary Care Provider Active Start: July 11, 2024 End: July 11, 2024 Gino Barbosa MD Attending Provider Active Start : July 11, 2024 End: July 11, 2024 Scrape Gatherer Relationship Specialty Start Date End Date Monika Guerreroine [address] [facility] [address] PCP - General 08/13/04 Scrape Gatherer Relationship Specialty Start Date End Date Cesar Cadeelisabet Etta [address] [place] [address] PCP - General 08/13/04 Scrape Gatherer Relationship Specialty Start Date End Date Cesar Monika Quiles [address] [facility] [address] PCP - General 08/13/04 Scrape Gatherer Relationship Specialty Start Date End Date Rico Purcell MD [address] [place] [address] PCP - General Family Practice 11/03/21 Scrape Gatherer Relationship Specialty Start Date End Date Rico Purcell MD [address] [place] [address] PCP - General Family Practice 11/03/21 Scrape Gatherer Relationship Specialty Start Date End Date Rico Purcell MD [address] [place] [id number] PCP - General Family Practice 11/03/21 Scrape Gatherer Relationship Specialty Start Date End Date Rico Purcell MD [address] [place] [id number] PCP - General Family Practice 11/03/21 Scrape Gatherer Relationship Specialty Start Date End Date Rico Purcell MD [address] [place] [id number] PCP - General Family Practice 11/03/21 Team Status: Inactive Member Role Status Dates Rico Purcell MD Primary Care Provider, Attending Teresa fisher Active Team Status: Inactive Member Role Status Dates Rico Purcell MD Primary Care Provider Active Adan Gonzalez Attending Provider Active Team Status: Inactive Member Role Status Dates Rico Purcell MD Primary Care Provider Active Jorge Ramirez MD Attending Provider Active Scrape Gatherer Relationship Specialty Start Date End Date Rico Purcell MD [address] [place] [id number] PCP - General Family Medicine 11/03/21 Team Status: Inactive Member Role Status Dates Rico Purcell MD Primary Care Provider Active JERALD TurciosC Attending Provider Active Team Status: Inactive Member Role Status Dates Rico Purcell MD Primary Care Provider Active Miladys Friedman PA-C Attending Provider Active Scrape Gatherer Relationship Specialty Start Date End Date Rico Purcell MD [address] [place] [id number] PCP - General 12/07/22 Scrape Gatherer Relationship Specialty Start Date End Date Rico Purcell MD [address] [place] [id number] PCP - General 12/07/22 Scrape Gatherer Relationship Specialty Start Date End Date Rico Purcell MD [address] [facility] [place] [address] PCP - General 12/07/22 Scrape Gatherer Relationship Specialty Start Date End Date Rico Purcell MD [address] [facility] [place] [address] PCP - General 12/07/22 Scrape Gatherer Relationship Specialty Start Date End Date Rico Purcell MD [address] [facility] [place] [address] PCP - General 12/07/22 Scrape Gatherer Relationship Specialty Start Date End Date Rico Purcell MD [address] [facility] [place] [address] PCP - General 12/07/22 Scrape Gatherer Relationship Specialty Start Date End Date Rico Purcell MD PCP - General Family Medicine 11/03/21 Scrape Gatherer Relationship Specialty Start Date End Date Rico Purcell MD [address] [facility] [place] [address] PCP - General 12/07/22 Scrape Gatherer Relationship Specialty Start Date End Date Rico Purcell MD [address] [facility] [place] [address] PCP - General 12/07/22 Team Status: Inactive Member Role Status Dates Rico Purcell MD Primary Care Provide r, Attending Provider Active Start: December 08, 2023 End: December 08, 2023 Scrape Gatherer Relationship Specialty Start Date End Date Rico Purcell MD PCP - General Family Medicine 11/03/21 Team Status: Inactive Member Role Status Dates Rico Purcell MD Primary Care Provider Active Start: January 19, 2024 End: January 19, 2024 Gino Barbosa MD Attending Provider Active Start : January 19, 2024 End: January 19, 2024 Team Status: Inactive Member Role Status Dates Rico Purcell MD Primary Care Provider Active Start: January 24, 2024 End: January 24, 2024 Gino Barbosa MD Attending Provider Active Start : January 24, 2024 End: January 24, 2024 Scrape Gatherer Relationship Specialty Start Date End Date Cesar Monika Quiles [address] [facility] [place] [address] PCP - General 08/13/04 11/02/21 Scrape Gatherer Relationship Specialty Start Date End Date Rico Purcell MD [address] [place] [address] PCP - General Family Medicine 05/24/23 Rico Purcell MD [address] [place] [address] Family Medicine 05/24/23 Scrape Gatherer Relationship Specialty Start Date End Date Rico Purcell MD [address] [place] [address] PCP - General Family Medicine 05/24/23 Rico Purcell MD [address] [place] [address] Family Medicine 05/24/23 Scrape Gatherer Relationship Specialty Start Date End Date Rico Purcell MD [address] [place] [address] PCP - General Family Medicine 05/24/23 Rico Purcell MD [address] [place] [address] Family Medicine 05/24/23 Scrape Gatherer Relationship Specialty Start Date End Date Rico Purcell MD [address] [place] [address] PCP - General Family Medicine 05/24/23 Rico Purcell MD [address] [place] [address] Family Medicine 05/24/23 Scrape Gatherer Relationship Specialty Start Date End Date Rico Purcell MD [address] [place] [address] PCP - General Family Medicine 05/24/23 Rico Purcell MD [address] [place] [address] Family Medicine 05/24/23 Team Status: Inactive Member Role Status Dates Rico Purcell MD Primary Care Provider Active Start: March 06, 2024 End: March 06, 2024 Jorge Ramirez MD Attending Provider Active S tart: March 06, 2024 End: March 06, 2024 Team Status: Active Member Role Status Dates Rico Purcell MD Primary Care Provider Active Start: March 06, 2024 Jorge Ramirez MD Attending Provider, Other Provider Active Start: March 06, 2024 Team Status: Active Member Role Status Dates Rico Purcell MD Primary Care Provide r, Attending Provider Active Start: March 08, 2024 Team Status: Inactive Member Role Status Dates Rico Purcell MD Primary Care Provider Active Start: March 08, 2024 End: March 08, 2024 Keagan Chadwick MD Attending Provider Active Star t: March 08, 2024 End: March 08, 2024 Team Status: Inactive Member Role Status Dates Rico Purcell MD Primary Care Provide r, Attending Provider Active Start: March 08, 2024 End: March 08, 2024 Scrape Gatherer Relationship Specialty Start Date End Date Rico Purcell MD [address] [place] [address] PCP - General 12/07/22 Scrape Gatherer Relationship Specialty Start Date End Date Rico Purcell MD [address] [place] [address] PCP - General 12/07/22 Scrape Gatherer Relationship Specialty Start Date End Date Rico Purcell MD [address] [place] [address] PCP - General Family Medicine 05/24/23 Rico Purcell MD [address] [place] [address] Family Medicine 05/24/23 Scrape Gatherer Relationship Specialty Start Date End Date Rico Purcell MD [address] [place] [address] PCP - General Family Medicine 05/24/23 Rico Purcell MD [address] [place] [address] Family Medicine 05/24/23 Scrape Gatherer Relationship Specialty Start Date End Date Rico Purcell MD [address] [place] [address] PCP - General Family Medicine 05/24/23 Rico Purcell MD [address] [facility] [place] [address] Family Medicine 05/24/23 Scrape Gatherer Relationship Specialty Start Date End Date Rico Purcell MD [address] [facility] [address] PCP - General Family Medicine 05/24/23 Rico Purcell MD [address] [place] [address] Family Medicine 05/24/23 Scrape Gatherer Relationship Specialty Start Date End Date Rico Purcell MD [address] [place] [address] PCP - General Family Medicine 05/24/23 Rico Purcell MD [address] [place] [address] Family Medicine 05/24/23 Scrape Gatherer Relationship Specialty Start Date End Date Rico Purcell MD [address] [facility] [address] PCP - General Family Medicine 05/24/23 Rico Purcell MD [address] [place] [address] Family Medicine 05/24/23 Scrape Gatherer Relationship Specialty Start Date End Date Rico Purcell MD [address] [place] [address] PCP - General Family Medicine 05/24/23 Rico Purcell MD [address] [facility] [address] Family Medicine 05/24/23 Scrape Gatherer Relationship Specialty Start Date End Date Rico Purcell MD [address] [facility] [address] PCP - General Family Medicine 05/24/23 Rico Purcell MD [address] [place] [address] Family Medicine 05/24/23 Scrape Gatherer Relationship Specialty Start Date End Date Rico Purcell MD [address] [place] [address] PCP - General Family Medicine 05/24/23 Rico Purcell MD [address] [place] [address] Family Medicine 05/24/23 Scrape Gatherer Relationship Specialty Start Date End Date Rico Purcell MD [address] [facility] [address] PCP - General Family Medicine 05/24/23 Rcio Purcell MD [address] [place] [address] Family Medicine 05/24/23 Scrape Gatherer Relationship Specialty Start Date End Date Rico Purcell MD [address] [place] [address] PCP - General Family Medicine 05/24/23 Rico Purcell MD [address] [place] [address] Family Medicine 05/24/23 Scrape Gatherer Relationship Specialty Start Date End Date Rico Purcell MD [address] [place] [address] PCP - General Family Medicine 05/24/23 Rico Purcell MD [address] [place] [address] Family Medicine 05/24/23 Scrape Gatherer Relationship Specialty Start Date End Date Rico Purcell MD [address] [place] [address] PCP - General Family Medicine 05/24/23 Rico Purcell MD [address] [place] [address] Family Medicine 05/24/23 Scrape Gatherer Relationship Specialty Start Date End Date Rico Purcell MD [address] [place] [address] PCP - General Family Medicine 10/08/24 Scrape Gatherer Relationship Specialty Start Date End Date Rico Purcell MD [address] [place] [address] PCP - General Family Medicine 10/08/24 Scrape Gatherer Relationship Specialty Start Date End Date Rico Purcell MD [address] [place] [address] PCP - General Family Medicine 10/08/24 Scrape Gatherer Relationship Specialty Start Date End Date Rico Purcell MD [address] [facility] [address] PCP - General Family Medicine 10/08/24 Scrape Gatherer Relationship Specialty Start Date End Date Rico Purcell MD [address] [facility] [address] PCP - General Family Medicine 10/08/24 Scrape Gatherer Relationship Specialty Start Date End Date Rico Purcell MD [address] [facility] [address] PCP - General Family Medicine 10/08/24 Scrape Gatherer Relationship Specialty Start Date End Date Rico Purcell MD [address] [facility] [address] PCP - General Family Medicine 10/08/24 Scrape Gatherer Relationship Specialty Start Date End Date Rico Purcell MD [address] [facility] [address] PCP - General Family Medicine 10/08/24 Scrape Gatherer Relationship Specialty Start Date End Date Rico Purcell MD [address] [facility] [address] PCP - General Family Medicine 10/08/24 Team Status: Active Member Role Status Dates Rico Purcell MD Primary Care Provider Active Start: January 02, 2025 Gino Barbosa MD Attending Provider Active Start : January 02, 2025 Team Status: Inactive Member Role Status Dates Rico Purcell MD Primary Care Provider Active Start: January 08, 2025 End: January 08, 2025 Gino Barbosa MD Attending Provider Active Start : January 08, 2025 End: January 08, 2025 Goals (unrecognized section and content) Goals may [...] (only) 1330 (Continued from OR - Provider: Tsering Pagan RN)1609 (Stopped - Provider: Tsering Pagan RN) lactated Ringer's infusion 100 mL/hr, [...] regardless of dose. 1344 (Given - Provider: Tsering Pagan, MINDY)1434 (Given - Provider: Tsering Pagan RN) lidocaine-epinephrine PF (Xylocaine W/EPI) 1 [...] Galvan RN) 1119 (Given - Provider: Beth Brosnon, RN)2038 (Given - Provider: Luzma Adhikari RN) oxygen (O2) therapy inhalation, Continuous PRN - [...] BE BASED ON THE PRIMARY CLINICAL RECORDS. [employer] [facility]. provides no warranty or guarantee of the accuracy or completeness of information in this document.
[2025-01-18 19:54] VITALS: BP 160/92; PULSE 70; TEMP 37; O2SAT 95; BMI 32.0
--- NOTE | 2025-01-18 19:58 | PC.NURSE ---
Redness and swelling to bilateral arms and legs, was stung yesterday.
== END 2025-01-18 22:09 | disposition left against medical advice (07) ==
PROVIDERS: Emergency Provider Internal Medicine; PCP Family Medicine
DX: Z53.21 Procedure and treatment not carried out due to patient leaving prior to being seen by health care provider (principal)